=== PATIENT | male | born 1950 | race Caucasian/White ===

== ENCOUNTER 2022-10-03 06:50 | Emergency (ER) | payer MEDICARE, MEDICAID, SELFPAY ==
[2022-10-03 06:52] VITALS: BP 146/77; PULSE 66; RESP 15; TEMP 36.6; O2SAT 96; BMI 35.6
--- NOTE | 2022-10-03 07:14 | EX.ED.GENINJ ---
HPI History of Present Illness Chief Complaint: Other, Pain/Inj Informant: patient Onset/Context/Timing Onset: Days (2) Mechanism/Context: Fall Quality of Pain: Sharp Location: Left chest Worsened by: Coughing, deep breathing Relieved by: Nothing Associated Symptoms Associated Symptoms: Positive for Amnesia; Negative for Parasthesias, Weakness, Loss of function, Inability to ambulate or Loss of consciousness Narrative Narrative: Patient presents with left rib pain that began after a fall 2 days ago. Patient states he was trying to get out of bed and sit onto a chair when the chair tipped over and he fell into the nightstand. Patient states he was able to get up on his own and set the chair back up and get back into bed. Patient denies any head injury or loss of consciousness. Patient states the pain is localized to the left anterolateral rib area. Patient states the pain is sharp. Patient states the pain is worse with coughing and deep breathing. Patient states nothing seems to help with the pain. Patient is unsure of his last tetanus. Patient denies any other injuries. Tetanus Immunization: Unknown [facility] Medical History (Updated 10/03/22 @ 07:[address] Eduar Donahue DO) BPH (benign prostatic hyperplasia) Diabetes HTN (hypertension) Hyperlipemia Muscle weakness Surgical History (Updated 10/03/22 @ 07:[address] Eduar Donahue DO) History of herniorrhaphy Hx of appendectomy Hx of cholecystectomy Social History Smoking Status: Former smoker ROS ROS ED Constitutional Constitutional ED: Denies chills or fever(s) Eyes Eyes: Denies blurry vision or change in vision ENT ENT ED: Denies rhinorrhea or sore throat Cardiovascular Cardiovascular: Reports chest pain; Denies palpitations Respiratory/Chest Respiratory/Chest: Denies cough or dyspnea Gastrointestinal Gastrointestinal: Denies nausea or vomiting Genitourinary Genitourinary ED: Denies dysuria or hematuria Musculoskeletal Musculoskeletal: Denies back pain or neck pain Integumentary Denies abscess or rash Neurologic Neurologic: Denies headache(s) or weakness Allergic/Immunologic Allergic/Immunologic ED: Denies mouth swelling or urticaria EXAM Physical Exam Const Vital Signs: 10/03/22 06:52 10/03/22 07:00 Temperature 97.9 F Temperature Source Temporal Pulse Rate 66 Respiratory Rate 15 Respiratory Effort Non-Labored Blood Pressure 146/77 H Blood Pressure Mean 100 Pulse Ox 96 Oxygen Delivery Method Room Air Positive well nourished and well developed General Appearance ED: well developed and NAD HEENT atraumatic; Negative for tenderness Neck full ROM Chest Wall Chest Narrative: There is ecchymosis and tenderness over the anterolateral aspect of the left chest. There is a superficial abrasion noted. There is no bleeding. There is no subcutaneous emphysema. There is no bony crepitance or step-off noted. Resp normal respiratory effort and clear to auscultation bilaterally Cardio regular rhythm GI non-tender and non-distended Palpation: soft Neuro oriented x3, CN's II-XII intact bilaterally, moves all extremities, no focal motor deficits and no sensory deficits noted Liz Coma Scale: document GCS findings Spontaneous Obeys Commands Oriented 15 Sensorium / Orientation: alert Motor Exam: strength 5/5 throughout MDM MDM MDM Narrative Medical decision making narrative: Differential diagnosis includes chest contusion, rib fracture, and pneumothorax. X-rays of the left ribs will be obtained to assess for pneumothorax and rib fracture. Radiography Diagnostic Testing: Clinical Impression(s) from Imaging Studies Ribs w/Chest X-Ray 10/03/22 07:35 IMPRESSION: No acute findings in the chest or left ribs. Electronically Signed: Jerry JuliosSeth Butcher, at 8:02 EDT Reading Location ID and State: [facility] / [place] , Service support , X-rays of the left ribs were obtained. There are 5 views. On my independent interpretation, there is no displaced rib fracture. There is no pneumothorax. There is no subcutaneous emphysema. Radiologist also interpreted the x-rays and agrees. Treatment and Re-Evaluation Narrative: Patient was given a tetanus booster. Patient was advised of his findings. Patient was instructed to take 10-15 deep breaths every hour while awake to prevent atelectasis and pneumonia. Patient was given an incentive spirometer. Patient was instructed to follow-up with his primary care physician in 5 to 7 days. Patient understood and was agreeable with the plan. All questions were answered. Discharge Plan Triage Chief Complaint: Other, Pain/Inj ED Provider: Schwiger,Eduar Dx/Rx/DC Orders Clinical Impression: Chest wall contusion, Fall Instructions: ED Chest Wall Contusion, ED Bruise, Rib Primary Care Provider: Jessica Alvarez [employer] OFFICER Disposition Disposition: Home, Self Care
--- NOTE | 2022-10-03 07:35 | RAD_ITS ---
EXAM: XR LEFT RIBS AND AP CHEST, 3 OR MORE VIEWS CLINICAL INDICATION: FELL A COUPLE DAYS AGO. LEFT LATERAL RIB PAIN. TECHNIQUE: Frontal and oblique views of the left ribs and frontal view of the chest. COMPARISON: No relevant prior studies available. FINDINGS: LUNGS AND PLEURAL SPACES: Unremarkable. No consolidation or edema. No pneumothorax. No effusion. HEART: Unremarkable. Cardiac silhouette not enlarged. MEDIASTINUM: Central airways and mediastinal contour are unremarkable. BONES/JOINTS: Old left rib fractures. No acute rib fracture. RAD/Ribs Uni Min 3V w/PA Chest IMPRESSION: No acute findings in the chest or left ribs. Electronically Signed: Jerry Butcher ([place]oks), at 8:02 EDT ,
[2022-10-03] MEDS: Diphth,Pertuss(Acell),Tet Vac 0.5 ML Vial IM (08:55)
[2022-10-03 09:36] VITALS: BP 149/77; PULSE 81; RESP 14; O2SAT 98
== END 2022-10-03 09:38 | disposition home or self-care (01) ==
PROVIDERS: Emergency Provider Emergency Medicine; PCP Nurse Practitioner Adult Health; Visit Provider Emergency Medicine
DX: S20.20XA Contusion of thorax, unspecified, initial encounter (principal); E11.9 Type 2 diabetes mellitus without complications; E78.5 Hyperlipidemia, unspecified; I10 Essential (primary) hypertension; Z87.891 Personal history of nicotine dependence; Z90.49 Acquired absence of other specified parts of digestive tract; Z23 Encounter for immunization; W06.XXXA Fall from bed, initial encounter
CPT/HCPCS: 71101; 90715; 96372; 99284

== ENCOUNTER 2022-11-08 08:30 | Emergency (ER) | payer MEDICARE, MEDICAID, SELFPAY ==
[2022-11-08 08:31] VITALS: BP 140/69; PULSE 87; RESP 14; TEMP 36.6; O2SAT 97; BMI 35.2
--- NOTE | 2022-11-08 08:41 | EKG12_ITS ---
Test Reason : GENERAL ILLNESS Blood Pressure : / mmHG Vent. Rate : 078 BPM Atrial Rate : 078 BPM P-R Int : 146 ms QRS Dur : 120 ms QT Int : 378 ms P-R-T Axes : 045 -73 029 degrees QTc Int : 430 ms Normal sinus rhythm Left axis deviation Non-specific intra-ventricular conduction delay Abnormal ECG Confirmed by SAMUEL CHA, JANNETTE ([id number]), sound editor LILIYA GONZALEZ ([id number]) on 11/13/2022 8:14:53 AM Referred By: Confirmed By:JOSE LUIS BAKER MD
--- NOTE | 2022-11-08 08:43 | EDS_ITS ---
HPI History of Present Illness Chief Complaint: General Illness Narrative Narrative: Patient presents with nausea and generalized weakness from assisted living?independent living facility. He is wheelchair-bound post COVID, he normally is able to get up to his wheelchair and transfer himself however he has been a bit weak today he also had some nausea. Chief complaint says dizziness but patient does not feel vertiginous does not feel off balance and does not feel lightheaded. No recent fevers or chills. Patient is denying abdominal pain. There is no diarrhea. There is no urinary symptoms. He is denying any chest pain or difficulty breathing. No headaches. [facility] Medical History (Updated 11/08/22 @ 10:[address] Jann Hoffmann MD) BPH (benign prostatic hyperplasia) Diabetes HTN (hypertension) Hyperlipemia Muscle weakness Allergy/AdvReac Type Severity Reaction Status Date / Time No Known Allergies Allergy Verified 11/08/22 08:31 Surgical History History of herniorrhaphy Hx of appendectomy Hx of cholecystectomy Social History Smoking Status: Current every day smoker tobacco type: cigarettes ROS ROS ED ROS Narrative Past medical history: Reviewed Medications: Reviewed Social history: Noncontributory Review of systems: All systems negative except as indicated General: No fever. Generalized weakness as in HPI Eyes: No visual changes ENT: No upper airway congestion, normal voice Neck: No neck pain Cardiovascular: No chest pain Respiratory: No shortness of breath or cough Gastrointestinal: No abdominal pain, no diarrhea. There is some nausea but no vomiting. Genitourinary: No dysuria Musculoskeletal: No muscle aches. No trauma no falls. Chronic bilateral lower extremity weakness. Skin: No rash Neurological: No memory loss, confusion or any focal weakness EXAM Physical Exam Narrative Exam Narrative: Physical exam General: Patient appears chronically ill he does not appear in any distress currently. Head: Normocephalic, Atraumatic Eyes: Conjunctiva not pale ENT: Quite dry mucous membranes Neck: Supple, Nontender, No lymphadenopathy Cardiovascular: Regular rate, Regular rhythm Respiratory: No distress, CTA bilaterally Abdomen: Soft, Nontender, Nondistended : Normal external genitalia without any signs of infection Back: Nontender, Normal Inspection. Negative for: CVA tenderness Extremities: Nontender, No edema Skin: Normal color, No rash Neurological: Alert, Normal Strength, Normal Sensation Const Vital Signs: 11/08/22 08:31 11/08/22 08:40 Temperature 97.9 F Temperature Source Temporal Pulse Rate 87 Respiratory Rate 14 Respiratory Pattern Normal Blood Pressure 140/69 H Blood Pressure Mean 92 Pulse Ox 97 Oxygen Delivery Method Room Air MDM MDM MDM Narrative Medical decision making narrative: Patient had some nausea, this improved. He also appeared dehydrated and he was given IV fluids with significant improvement in his symptoms. I reevaluated him, he does not have any more nausea, he feels improved and he feels like his energy is back. I believe this is the cause of most of his symptoms. I talked to him about hospitalization but he wants to be discharged which is reasonable. There is some elevation of the bilirubin however there is no elevation of transaminases or alk phos, this can be worked up outpatient. Because he does not have any abdominal pain I do not believe emergent imaging like ultrasound or CT of the abdomen is needed. He has been eating quite a bit over the weekend since apparently he was given some good food and he is found to be hyperglycemic, he can control this at home, I talked to him about glycemic control and how the increased blood sugar can cause dehydration. He understands these. If anything changes patient is to return. Lab Data Labs: Laboratory Results - last 24 hr 11/08/22 11/08/22 09:00 10:01 WBC 11.0 RBC 4.88 Hgb 15.0 Hct 42.9 MCV 87.9 MCH 30.7 MCHC 35.0 RDW Std Deviation 38.0 RDW Coeff of Gage 11.9 Plt Count 107 L MPV 9.6 Immature Gran % (Auto) 0.500 Neut % (Auto) 88.3 H Lymph % (Auto) 5.4 L Webb % (Auto) 4.8 Eos % (Auto) 0.8 Baso % (Auto) 0.2 Absolute Neuts (auto) 9.7 H Absolute Lymphs (auto) 0.60 L Nucleated RBC % 0 Differential Comment SCANNED Sodium 134 L Potassium 3.9 Chloride 100 Carbon Dioxide 23.0 Anion Gap 11 BUN 11 Creatinine 1.06 Estim Creat Clear Calc 72.16 Est GFR (MDRD) Af Amer 88 Est GFR (MDRD) Non-Af 73 BUN/Creatinine Ratio 10.4 Glucose 244 H Calcium 8.3 L Total Bilirubin 2.90 H AST 25 ALT 42 Alkaline Phosphatase 115 Troponin I High Sens 9 Total Protein 6.4 Albumin 3.4 Globulin 3.0 Albumin/Globulin Ratio 1.1 Urine Color Yellow Urine Clarity Clear Urine pH 5.0 Ur Specific Pound 1.020 Urine Protein 15 H Urine Glucose (UA) 1000 H Urine Ketones 5 H Urine Occult Blood 25 H Urine Nitrite Negative Urine Bilirubin Negative Urine Urobilinogen 1 H Ur Leukocyte Esterase 25 H Urine RBC 0-5 SEEN Urine WBC 0-5 SEEN Ur Squamous Epith Cells 0 SEEN Urine Bacteria 0 SEEN Urine Mucus 0 SEEN Rhythm Strip Rhythm Strip: Sinus Rhythm Rate: 70 Ectopy: None EKG Initial EKG: Comments: Sinus rhythm with a rate of 78. Normal SD and QTc intervals. Left axis deviation. No acute ST changes. Slight widening of the QRS with a nonspecific intraventricular conduction delay. Interpreted by emergency doctor Discharge Plan Triage Chief Complaint: General Illness ED Provider: Jann Hoffmann Dx/Rx/DC Orders Clinical Impression: Acute dehydration, Hyperbilirubinemia, Hyperglycemia, Nausea Instructions: Dehydration Primary Care Provider: Jessica Alvarez REMOTE SENSING SPECIALIST Referrals: Jessica Alvarez REMOTE SENSING SPECIALIST, REMOTE SENSING SPECIALIST-C [Primary Care Provider] - 3-5 Days Disposition Disposition: Assisted Living
--- NOTE | 2022-11-08 08:44 | NURSING ---
NO OLD EKGS
[2022-11-08] MEDS: 0.9% Normal Saline 1,000 ML 1000 ML IV (09:05)
[2022-11-08] MEDS: Ondansetron 4 MG/2 ML Vial IV (09:06)
[2022-11-08 09:17] LABS: Absolute Neutrophil Count 9.7 X10^3/uL (2.0-7.7); Basophil# 0.02 X10^3/uL; Basophil% 0.2 % (0-1); Eosinophil# 0.09 X10^3/uL; Eosinophils% 0.8 % (0-5); Hematocrit 42.9 % (40-54); Lymphocyte % 5.4 % (19-41); Mean Corpuscular Hgb 30.7 pg (27.0-32.0); Mean Corpuscular Volume 87.9 fL (80-94); Mean Platelet Vol. 9.6 fl (6.2-12.0); Monocyte# 0.53 X10^3/uL; Monocyte% 4.8 % (0-10); NRBC Flagged by Analyzer 0 % (0-5); Neutrophil # 9.74 X10^3/uL (2.7-7.7); Neutrophil % 88.3 % (47-70); POSITIVE DIFFERENTIAL YES; Platelet Count 107 K/mm3 (150-450); RBC Distribution Width CV 11.9 % (11.6-14.6); Red Blood Count 4.88 M/mm3 (4.6-6.2)
[2022-11-08 09:18] LABS: Differential Indicated SCAN CRITERIA MET
[2022-11-08 09:41] LABS: Differential Comment SCANNED
[2022-11-08 09:45] LABS: ALB/GLOB Ratio 1.1 RATIO (0.9-2.4); AST(SGOT) 25 U/L (15-37); Alanine Aminotransfer ALT/SGPT 42 U/L (16-61); Albumin, Serum 3.4 g/dL (3.2-5.0); Alkaline Phosphatase 115 U/L (45-117); Anion Gap 11 (5-15); BUN 11 mg/dL (7-18); BUN/Creat Ratio 10.4 RATIO (10-20); Calcium,Total 8.3 mg/dL (8.5-10.1); Chloride 100 mmol/L (98-107); Creatinine, Serum 1.06 mg/dL (0.70-1.30); EST Glomerular Filtration Rate 73 mL/min (>60); Est Glom Filt Rate - Afr Amer 88 mL/min (>60); Estimated Creatinine Clearance 72.16 ml/min; Glucose 244 mg/dL (74-106); Potassium 3.9 mmol/L (3.5-5.1); Protein, Total 6.4 g/dL (6.4-8.2); Sodium Level 134 mmol/L (136-145); Troponin-I HS (w/2H Reflex) 9 pg/mL (3.0-78.0)
[2022-11-08 10:04] LABS: Bacteria 0 SEEN /hpf (None Seen); Mucous, Urine 0 SEEN /hpf (<or=2+); Squamous Epithelial Cells - UA 0 SEEN /hpf (0-5)
[2022-11-08 10:16] LABS: Color, Urine Yellow (Yellow); Glucose, Dipstick 1000 mg/dl (Normal); Nitrite-Dipstick Negative (Negative); Occult Blood-Urine 25 /ul (Negative); Protein-Dipstick 15 mg/dl (Negative); Urine Clarity Clear (Clear); Urine Urobilinogen 1 mg/dl (Normal)
[2022-11-08 10:19] LABS: Ketone-Dipstick 5 mg/dl (Negative); Leukocyte Esterase-Dipstick 25 /ul (Negative); Urine Bilirubin Dipstick Negative (Negative)
[2022-11-08 10:35] LABS: Red Blood Cells-Urine 0-5 SEEN /hpf (0-5); White Blood Cells 0-5 SEEN /hpf (0-5)
[2022-11-08 11:12] LABS: Reflex Troponin-HS? (from REC) Y
== END 2022-11-08 11:31 | disposition home or self-care (01) ==
PROVIDERS: Emergency Provider Emergency Medicine; PCP Nurse Practitioner Adult Health; Visit Provider Emergency Medicine
DX: E86.0 Dehydration (principal); E11.65 Type 2 diabetes mellitus with hyperglycemia; E80.6 Other disorders of bilirubin metabolism; R11.0 Nausea; E78.5 Hyperlipidemia, unspecified; I10 Essential (primary) hypertension; N40.0 Benign prostatic hyperplasia without lower urinary tract symptoms; F17.210 Nicotine dependence, cigarettes, uncomplicated; Z99.3 Dependence on wheelchair; Z86.16 Personal history of COVID-19
CPT/HCPCS: 96374; 99284; 80053; 81001; 84484; 85025; 93005; J7030; A4216; J2405

== ENCOUNTER 2022-11-08 16:54 | Observation (INO) | payer MEDICARE, MEDICAID, SELFPAY ==
[2022-11-08 16:55] VITALS: BP 142/74; PULSE 95; RESP 18; TEMP 37.8; O2SAT 97; BMI 35.6
[2022-11-08 17:02] VITALS: BP 118/72; PULSE 93; RESP 18; O2SAT 95
[2022-11-08] MEDS: Acetaminophen 500 MG Tablet 1000 MG PO (17:06)
--- NOTE | 2022-11-08 17:08 | RAD_ITS ---
STUDY: X-RAY CHEST REASON FOR EXAM: Male, 72 years old. fever TECHNIQUE: Single AP portable view of the chest. COMPARISON: 10/03/2022. FINDINGS: Elevated right hemidiaphragm, stable. The lungs are clear and expanded. There is no demonstrated pleural abnormality. Normal size heart. Normal mediastinum and kaiser. Normal visualized pulmonary arteries. There is atherosclerotic tortuosity of the aortic arch and descending thoracic aorta. Normal visualized thoracic spine. Normal visualized ribs, clavicles, and shoulders. There is no demonstrated abnormality of the visualized soft tissue structures of the upper abdomen. RAD/Chest 1 View (Portable) IMPRESSION: No definite acute or significant abnormality seen. Electronically Signed: Vicente Mullins MD at 17:19 EDT ,
--- NOTE | 2022-11-08 17:31 | EDS_ITS ---
HPI History of Present Illness Chief Complaint: General Illness Narrative Narrative: 72-year-old male presenting with nausea and generalized weakness. He was seen earlier today for similar symptoms. He had lab work done which showed a little bit of hyperglycemia but was otherwise normal. He was treated with Zofran and IV fluids. Today returns with a fever and return of his nausea. He denies chest pain or shortness of breath. He does have a cough. He denies abdominal pain. No urinary complaints. [facility] Medical History (Updated 11/08/22 @ 20:[address] Bridgett Villagomez MD) Allergic rhinitis BPH (benign prostatic hyperplasia) CKD (chronic kidney disease), stage II COPD (chronic obstructive pulmonary disease) Diabetes Former tobacco use HTN (hypertension) Hyperlipemia Obesity Home Medications atorvastatin 80 mg tablet 80 mg PO QHS 11/08/22 [History Last Taken Unknown] cetirizine 5 mg tablet 5 mg PO QHS 11/08/22 [History Last Taken Unknown] cholecalciferol (vitamin D3) 125 mcg (5,000 unit) tablet (Vitamin D3) 5,000 unit PO QWEEK 11/08/22 [History Last Taken Unknown] clopidogrel 75 mg tablet 75 mg PO .PO 11/08/22 [History Last Taken Unknown] icosapent ethyl 1 gram capsule (Vascepa) 2 g PO BID 11/08/22 [History Last Taken Unknown] isosorbide mononitrate 30 mg tablet,extended release 24 hr 30 mg PO DAILY 11/08/22 [History Last Taken Unknown] linagliptin 5 mg tablet (Tradjenta) 5 mg PO DAILY 11/08/22 [History Last Taken Unknown] losartan 25 mg tablet 25 mg PO DAILY 11/08/22 [History Last Taken Unknown] melatonin 5 mg tablet 5 mg PO QHS 11/08/22 [History Last Taken Unknown] metformin 500 mg tablet 500 mg PO BID 11/08/22 [History Last Taken Unknown] montelukast 10 mg tablet 10 mg PO QHS 11/08/22 [History Last Taken Unknown] polyethylene glycol 3350 17 gram/dose oral powder (Gavilax) 17 g PO .EVERY OTHER DAY 11/08/22 [History Last Taken Unknown] tamsulosin 0.4 mg capsule 0.8 mg PO DAILY 11/08/22 [History Last Taken Unknown] Allergy/AdvReac Type Severity Reaction Status Date / Time No Known Allergies Allergy Verified 11/08/22 17:01 Family History (Updated 11/08/22 @ 20:[address] Bridgett Villagomez MD) Mother Diabetes Cancer Father Diabetes Cancer Surgical History History of herniorrhaphy Hx of appendectomy Hx of cholecystectomy Social History (Updated 11/08/22 @ 20:[address] Bridgett Villagomez MD) housing: assisted living facility Smoking Status: Former smoker alcohol intake: never substance use type: does not use ROS ROS ED Constitutional Constitutional ED: Reports chills and fever(s); Denies sweats Eyes Eyes: Denies blurry vision or change in vision ENT ENT ED: Denies ear pain or sore throat Cardiovascular Cardiovascular: Denies chest pain, palpitations or racing heartbeat Respiratory/Chest Respiratory/Chest: Denies cough, dyspnea or sputum Gastrointestinal Gastrointestinal: Reports nausea; Denies abdominal pain, constipation, diarrhea or vomiting Genitourinary Genitourinary ED: Denies dysuria, hematuria or urinary frequency Musculoskeletal Musculoskeletal: Denies arthralgias, myalgias or neck pain Integumentary Denies abscess, Abrasions or rash Neurologic Neurologic: Denies headache(s), paresthesias or weakness Psychiatric Psychiatric: Denies anxiety, depression, suicidal ideation or suicidal thoughts Endocrine Endocrinology: Denies polydipsia or polyuria EXAM Physical Exam Const Vital Signs: 11/08/22 16:55 11/08/22 16:59 11/08/22 17:02 Temperature 100.1 F H Temperature Source Oral Pulse Rate 95 93 Respiratory Rate 18 18 Respiratory Pattern Tachypnea Blood Pressure 142/74 H 118/72 Blood Pressure Mean 96 87 Pulse Ox 97 95 Oxygen Delivery Method Room Air Room Air 11/08/22 19:00 Temperature 99.8 F H Temperature Source Oral Pulse Rate 72 Respiratory Rate 20 H Respiratory Pattern Blood Pressure 124/55 H Blood Pressure Mean 78 Pulse Ox 93 Oxygen Delivery Method Room Air Positive well nourished General Appearance ED: NAD HEENT Reports moist mucous membranes Eyes PERRL and EOMs intact bilaterally Chest Wall inspection of chest normal Resp normal respiratory effort Auscultation: Negative for rales, rhonchi or wheezes Cardio regular rate and regular rhythm GI normal to inspection, nondistended, normoactive bowel sounds Extremity General Extremety ED: Negative for edema or tenderness General Extremity: Negative for edema Neuro oriented x3 and CN's II-XII intact bilaterally Sensorium / Orientation: alert Motor Exam: general weakness Psych mental status grossly normal Skin no rashes or lesions noted and no wounds MDM MDM MDM Narrative Medical decision making narrative: I reviewed the patient's blood work from earlier today is all normal with exception of hyperglycemia. Patient was given IV fluids and Zofran. Apparently his nausea came back and he is developed a fever now his temperature is 100.1. I will obtain a chest x-ray because this was not done earlier and I will also get a COVID/flu swab. She given a gram of Tylenol for his fever. He is given oral Zofran. COVID and flu are negative. Chest x-ray my interpretation shows no acute process. I suspect he likely has something viral. On reevaluation his nausea is improved but he request to stay in the hospital because he does not feel right he has one half to come back. I discussed with the hospitalist and he is admitted for observation. Impression: 1. Nausea/vomiting 2. Acute febrile illness Radiography Diagnostic Testing: Clinical Impression(s) from Imaging Studies Chest X-Ray 11/08/22 17:08 IMPRESSION: No definite acute or significant abnormality seen. Electronically Signed: Vicente Mullins MD at 17:19 EDT , Discharge Plan Disposition Disposition: Acute Care Hospital [facility] Discharge Date/Time: 11/08/22 20:33
[2022-11-08] MEDS: Ondansetron ODT 4 MG Tablet PO (17:37)
[2022-11-08 19:00] VITALS: BP 124/55; PULSE 72; RESP 20; TEMP 37.7; O2SAT 93
--- NOTE | 2022-11-08 19:44 | HP.PCM.HOS_ITS ---
HPI - General General Date of Admission: 11/08/22 Date of Service: 11/08/22 Chief Complaint: Fatigue, malaise, nausea, fever. HPI Narrative The patient is a 72 y/o M w/ PMHx: Former Tobacco use, HTN, HLD, BPH, Diabetes mellitus type II, COPD, CKD possibly stage II based on current labs, Obesity, Hx COVID illness, recent ED evaluation earlier in the AM on day of presentation with transition from assisted living secondary to mild nausea as well as dizziness with no vertigo nor any lightheadedness nor any recent fevers or chills but increased fatigue and malaise normally able to transfer himself out of the wheelchair but has been more weak with history of unfortunately being wheelchair-bound following a COVID illness. Patient denies any abdominal pain, diarrhea, dysuria but has had mildly decreased appetite. Patient notes feeling improved since his evaluation again in the ED now but is very afraid of returning to his facility as he had difficulty caring for himself safely as it is assisted living only. He denies any specific illness in people around him but states that often he is by himself frequently but of several people intermittently have been ill but he is unsure from what. Discussed the fact that he is listed as both on aspirin and Plavix and he denies any history of stroke or any coronary disease or peripheral artery disease or stents or specifically TIA. Workup in the ED included initially T1 100.1 with most recent repeat T 99.8, heart rate 95 initially with most recent repeat 72, BP initially 142/74 with most recent repeat 04/25/1955, initially respiratory rate 1897% on room air now respiratory rate 20, 93% on room air, chest x-ray with no acute cardiopulmonary finding, SARS COVID and influenza antigen rapid negative, labs obtained earlier in the morning with CBC with WBC 11, hemoglobin 15, platelet 107 with left shift and lymphopenia, CMP with sodium 134, glucose 244, T. bili 2.90, AST/ALT 25/42, alk phos 115, hepatic profile otherwise unremarkable, troponin 9, urinalysis with specific gravity 1.020, glucose 1000, ketone 5, occult blood 25, negative nitrite, leukocyte Estrace 25 with no urine WBCs or RBCs or bacteria and of note anion gap 11, EKG at that time with sinus rhythm with no acute evidence of ischemia. In the ED patient ministered Tylenol as well as Zofran 4 mg p.o. x 1. [facility] Medical History (Updated 11/08/22 @ 20:[address] Bridgett Villagomez MD) Allergic rhinitis BPH (benign prostatic hyperplasia) CKD (chronic kidney disease), stage II COPD (chronic obstructive pulmonary disease) Diabetes Former tobacco use HTN (hypertension) Hyperlipemia Obesity Home Medications atorvastatin 80 mg tablet 80 mg PO QHS 11/08/22 [History Last Taken Unknown] cetirizine 5 mg tablet 5 mg PO QHS 11/08/22 [History Last Taken Unknown] cholecalciferol (vitamin D3) 125 mcg (5,000 unit) tablet (Vitamin D3) 5,000 unit PO QWEEK 11/08/22 [History Last Taken Unknown] clopidogrel 75 mg tablet 75 mg PO .PO 11/08/22 [History Last Taken Unknown] icosapent ethyl 1 gram capsule (Vascepa) 2 g PO BID 11/08/22 [History Last Taken Unknown] isosorbide mononitrate 30 mg tablet,extended release 24 hr 30 mg PO DAILY 11/08/22 [History Last Taken Unknown] linagliptin 5 mg tablet (Tradjenta) 5 mg PO DAILY 11/08/22 [History Last Taken Unknown] losartan 25 mg tablet 25 mg PO DAILY 11/08/22 [History Last Taken Unknown] melatonin 5 mg tablet 5 mg PO QHS 11/08/22 [History Last Taken Unknown] metformin 500 mg tablet 500 mg PO BID 11/08/22 [History Last Taken Unknown] montelukast 10 mg tablet 10 mg PO QHS 11/08/22 [History Last Taken Unknown] polyethylene glycol 3350 17 gram/dose oral powder (Gavilax) 17 g PO .EVERY OTHER DAY 11/08/22 [History Last Taken Unknown] tamsulosin 0.4 mg capsule 0.8 mg PO DAILY 11/08/22 [History Last Taken Unknown] Allergy/AdvReac Type Severity Reaction Status Date / Time No Known Allergies Allergy Verified 11/08/22 17:01 Family History (Updated 11/08/22 @ 20:[address] Bridgett Villagomez MD) Mother Diabetes Cancer Father Diabetes Cancer Surgical History History of herniorrhaphy Hx of appendectomy Hx of cholecystectomy Social History (Updated 11/08/22 @ 20:[address] Bridgett Villagomez MD) housing: assisted living facility Smoking Status: Former smoker alcohol intake: never substance use type: does not use ROS ROS Narrative Admission Review of Systems: CONSTITUTIONAL: No weight loss, + fever, chills, weakness or fatigue. HEENT: Eyes: No visual loss, blurred vision, double vision or yellow sclerae. Ears, Nose, Throat: No hearing loss, sneezing, congestion, runny nose or sore throat. SKIN: No rash or itching, lesions, wounds. CARDIOVASCULAR: No chest pain, chest pressure or chest discomfort, palpitations, edema, orthopnea, syncopal events. RESPIRATORY: No shortness of breath, cough or sputum, wheezing, hemoptysis. GASTROINTESTINAL: + anorexia, nausea. No vomiting or diarrhea, abdominal pain, melena, BRBPR. GENITOURINARY: No dysuria, frequency, urgency or retention. NEUROLOGICAL: + Debility, requires wheelchair chronically, No headache, dizziness, syncope, paralysis, ataxia, numbness or tingling in the extremities, focal weakness, change in bowel or bladder control, seizure. MUSCULOSKELETAL: + muscle, back pain, joint pain or stiffness. HEMATOLOGIC: + Easy bleeding or bruising. LYMPHATICS: No enlarged nodes. No history of splenectomy. PSYCHIATRIC: No history of depression or anxiety. ENDOCRINOLOGIC: No reports of sweating, cold or heat intolerance. No polyuria or polydipsia. ALLERGIES: + history of rhinitis. Vital Signs Vital Signs Vital Signs: 11/08/22 16:55 11/08/22 16:59 11/08/22 17:02 Temperature 100.1 F H Temperature Source Oral Pulse Rate 95 93 Respiratory Rate 18 18 Respiratory Pattern Tachypnea Blood Pressure 142/74 H 118/72 Blood Pressure Mean 96 87 Pulse Ox 97 95 Oxygen Delivery Method Room Air Room Air 11/08/22 19:00 Temperature 99.8 F H Temperature Source Oral Pulse Rate 72 Respiratory Rate 20 H Respiratory Pattern Blood Pressure 124/55 H Blood Pressure Mean 78 Pulse Ox 93 Oxygen Delivery Method Room Air Weight Weight: 278 lb 0.046 oz Body Mass Index (BMI) 35.6 Physical Exam Narrative Physical Examination: General: Awake, alert, oriented x 3 and cooperative, seated upright in the ED bed in no apparent distress. Skin: Normal color, normal turgor, no icterus, no cyanosis. HEENT: AT/NC, EOMI, PERRLA, mildly dry MM, no carotid bruits or JVD noted; however, thickened neck makes evaluation difficult. Lungs: Mildly diminished, greater bases, appropriate effort, no rales, ronchi or wheezing. Heart: Regular rate and rhythm; no gallop, rub audible. Abdomen: Soft, obese, NTTP, no obvious distention, mildly hyperactive BS, no appreciated HSM. Extremities: No cyanosis, clubbing, or edema. Neurological: Patient awake, alert, oriented as noted, cognitive function intact; pupils equally reactive to light and accommodation, cranial nerves grossly normal, moving all 4 extremities, no focal deficits, strength moderately to severely globally decreased secondary to acute presentation complaints compounded by underlying chronic debility, normally mostly wheelchair-bound secondary to debilities and weaknesses following COVID illness prior. Psychiatric: Affect appears fatigued otherwise normal, no acute evidence of depressive or anxiety feelings. Results Lab / Micro Data Micro: Microbiology 11/08/22 17:04 Nasal Secretion SARS-CoV-2 & FLU Antigen (Rapid) - Final Radiology Impression Chest X-Ray 11/08/22 17:08 IMPRESSION: No definite acute or significant abnormality seen. Electronically Signed: Vicente Mullins MD at 17:19 EDT , Assessment & Plan Assessment/Plan (1) Adult failure to thrive: PLAN: Plan The patient is a 72 y/o M w/ PMHx: Former Tobacco use, HTN, HLD, BPH, Diabetes mellitus type II, COPD, CKD possibly stage II based on current labs, Obesity, Hx COVID illness, recent ED evaluation earlier in the AM on day of presentation with transition from assisted living secondary to mild nausea as well as dizziness with no vertigo nor any lightheadedness nor any recent fevers or ch ills but increased fatigue and malaise normally able to transfer himself out of the wheelchair but has been more weak with history of unfortunately being wheelchair-bound following a COVID illness. #1. Fatigue, malaise, FUO with associated Adult FTT: Given repeat ED evaluation, concerns for ability for patient to safely care for self in the AL setting, unclear etiology for his fever, will admit to [facility], awaiting COVID PCR and full respiratory viral panel initiated in the ED, procalcitonin requested, continued judicious hydration and will plan repeat CXR in AM to assure no development of infiltrate, will maintain on fall and aspiration precautions, PT/OT/case management consulted for discharge planning as patient potentially could need transition from assisted to skilled setting. #2. Hypertension: Continue home regimen including isosorbide, losartan with hold parameters as needed, PRN hydralazine. #3. Hyperlipidemia: Continue home statin regimen. #4. Diabetes mellitus type II: Hold oral home regimen, ADA diet, accu checks w/ ISS. #5. Thrombocytopenia, unclear chronicity: Admission platelet earlier in the day 107, no comparison available, potentially related to acute illness presentation, will continue to trend CBC. #6. BPH: We will continue patient home Flomax regimen. #7. Chronic COPD with allergic rhinitis: Not on any chronic regimen per current list but clarifying, PRN albuterol, HOB, IS parameters, continue patient home cetirizine and montelukast regimen. #8. Chronic Kidney Disease Stage II per current labs but unclear specific stage: Admission BUN/Cr 11/1.06, baseline renal function unclear but facility does report chronic kidney disease and they are listed diagnoses, repeat BMP in AM. #9. Obesity: Weight loss and lifestyle changes encouraged. #10. Former tobacco use: Encourage continued tobacco cessation. #11. Isolated hyperbilirubinemia: AM labs during prior ED evaluation with T. bili 2.90 however AST/ALT normal 25/42 and alk phos 115 with no abdominal pain, will continue treatment and evaluation as noted, repeat CMP in AM. #12. DVT prophylaxis: Lovenox. #13. CODE STATUS: DNR-CCA, no intubation per facility paperwork. Charges/Coding Visit Charges Inpatient E&M: 09328 Init Hosp L2
[2022-11-08 20:02] VITALS: BP 103/86; PULSE 78; RESP 23; TEMP 37; O2SAT 97
--- NOTE | 2022-11-08 20:23 | ED.RN ---
ATTEMPTED TO CALL REPORT TO [facility].
[2022-11-08 20:34] VITALS: BP 124/84; PULSE 88; RESP 18; TEMP 36.8; O2SAT 98
[2022-11-08 20:49] LABS: Procalcitonin 0.06 ng/mL (0.00-0.09)
[2022-11-08] MEDS: 0.9% Normal Saline 1,000 ML 100 ML IV (20:50)
[2022-11-08 21:09] VITALS: BMI 34.4
[2022-11-08] MEDS: MELATONIN 10 MG TABLET 5 MG PO (21:41)
[2022-11-08] MEDS: Montelukast 10 MG Tablet PO (21:50)
[2022-11-08] MEDS: Atorvastatin Calcium 80 MG Tablet PO (21:50)
[2022-11-08] MEDS: Loratadine 10 MG Tablet PO (21:50)
[2022-11-08] MEDS: Insulin Lispro 100 UNIT/ML INSULN.PEN SC (21:55)
[2022-11-08 22:19] VITALS: O2SAT 98
[2022-11-09 00:16] LABS: Bedside Glucose 196 mg/dL (74-106)
[2022-11-09 03:01] VITALS: BP 143/57; PULSE 82; RESP 18; TEMP 36.9; O2SAT 93
[2022-11-09 05:43] VITALS: BMI 34.4
--- NOTE | 2022-11-09 05:55 | RAD_ITS ---
INDICATION: Fever EXAMINATION/TECHNIQUE: X-RAY - XR Chest 1 View COMPARISON: 11/08/2022. FINDINGS: LINES/DEVICES: None. LUNGS: No consolidation or evidence of an effusion. No evidence of edema or a pneumothorax. MEDIASTINUM AND CARDIOVASCULAR STRUCTURES: Cardiac silhouette is normal in size and contour. Mediastinum is unremarkable. BONES AND SOFT TISSUES: No acute abnormality. RAD/Chest 1 View (Portable) IMPRESSION: No evidence of acute cardiopulmonary disease. Electronically Signed: Shola Toribio DO at 6:30 EDT ,
[2022-11-09] MEDS: 0.9% Normal Saline 1,000 ML 100 ML IV (06:28)
[2022-11-09] MEDS: Insulin Lispro 100 UNIT/ML INSULN.PEN SC ×4 (06:29→21:58)
[2022-11-09 06:38] LABS: Absolute Lymphocyte Count 0.85 X10^3/uL (0.83-4.51); Absolute Neutrophil Count 3.4 X10^3/uL (2.0-7.7); Basophil# 0.04 X10^3/uL; Basophil% 0.8 % (0-1); Eosinophil# 0.06 X10^3/uL; Eosinophils% 1.3 % (0-5); Hematocrit 40.5 % (40-54); Hemoglobin 13.9 g/dL (13.0-16.5); Lymphocyte # 0.85 X10^3/ul (0.83-4.51); Lymphocyte % 17.7 % (19-41); Mean Corp Hgb Conc 34.3 g/dL (32-36); Mean Corpuscular Hgb 30.8 pg (27.0-32.0); Mean Corpuscular Volume 89.6 fL (80-94); Mean Platelet Vol. 9.3 fl (6.2-12.0); Monocyte# 0.39 X10^3/uL; Monocyte% 8.1 % (0-10); NRBC Flagged by Analyzer 0 % (0-5); Neutrophil # 3.44 X10^3/uL (2.7-7.7); Neutrophil % 71.7 % (47-70); Platelet Count 101 K/mm3 (150-450); RBC Distribution Width CV 11.8 % (11.6-14.6); RBC Distribution Width SD 38.2 fl (35.1-43.9); Red Blood Count 4.52 M/mm3 (4.6-6.2); White Blood Count 4.8 K/mm3 (4.4-11.0)
[2022-11-09 06:50] LABS: Bedside Glucose 210 mg/dL (74-106)
[2022-11-09 07:12] LABS: AST(SGOT) 21 U/L (15-37); Alanine Aminotransfer ALT/SGPT 32 U/L (16-61); Albumin, Serum 2.8 g/dL (3.2-5.0); Alkaline Phosphatase 86 U/L (45-117); Anion Gap 6 (5-15); BUN 9 mg/dL (7-18); BUN/Creat Ratio 9.3 RATIO (10-20); Calcium,Total 7.8 mg/dL (8.5-10.1); Chloride 104 mmol/L (98-107); Creatinine, Serum 0.97 mg/dL (0.70-1.30); EST Glomerular Filtration Rate 81 mL/min (>60); Est Glom Filt Rate - Afr Amer 98 mL/min (>60); Estimated Creatinine Clearance 78.86 ml/min; Globulin 2.8 g/dL (2.2-4.2); Glucose 187 mg/dL (74-106); Potassium 3.8 mmol/L (3.5-5.1); Protein, Total 5.6 g/dL (6.4-8.2); Sodium Level 135 mmol/L (136-145)
[2022-11-09] MEDS: Clopidogrel Bisulfate 75 MG Tablet PO (08:31)
[2022-11-09] MEDS: Polyethylene Glycol 3350 17 GM PACKET PO (08:31)
[2022-11-09] MEDS: Losartan Potassium 25 MG Tablet PO ×2 (08:31→22:02)
[2022-11-09] MEDS: Tamsulosin HCl 0.4 MG Capsule 0.800000000000000044 MG PO (08:31)
[2022-11-09] MEDS: Isosorbide Mononitrate 30 MG Tablet PO (08:32)
[2022-11-09] MEDS: Enoxaparin 40 MG/0.4 ML Syringe SC (08:32)
[2022-11-09 09:00] VITALS: BP 121/49; PULSE 66; RESP 18; TEMP 37.2; O2SAT 99
[2022-11-09 10:00] VITALS: O2SAT 95
[2022-11-09 11:15] LABS: Bedside Glucose 274 mg/dL (74-106)
--- NOTE | 2022-11-09 12:10 | PN_ITS ---
Subjective Subjective Patient seen and examined. He had no active complaints. He denied any fever, chills, cough, chest pain, palpitations, dizziness, nausea, vomiting or any other symptoms. Review of systems is otherwise negative. Objective Data Objective Data Vital Signs: Vital Signs Temp Pulse Resp BP Pulse Ox O2 Del Method 98.9 F 66 18 121/49 H 99 Room Air 11/09/22 09:00 11/09/22 09:00 11/09/22 09:00 11/09/22 09:00 11/09/22 09:00 11/09/22 09:00 Oxygen Delivery Method Room Air Weight: 268 lb 4.841 oz Body Mass Index (BMI) 34.4 Intake & Output: Intake and Output for Last 24 Hours 11/07/22 11/08/22 11/09/22 23:59 23:59 23:59 Intake Total 120 / 120 963.33 / 963.33 Output Total 800 / 800 Balance 120 / 120 163.33 / 163.33 Lab / Micro Data 11/09/22 06:03 11/09/22 06:03 Labs: Laboratory Results - last 24 hr 11/08/22 20:06: Procalcitonin 0.06 11/08/22 21:52: POC Glucose 196 H 11/09/22 06:03: WBC 4.8, RBC 4.52 L, Hgb 13.9, Hct 40.5, MCV 89.6, MCH 30.8, MCHC 34.3, RDW Std Deviation 38.2, RDW Coeff of Gage 11.8, Plt Count 101 L, MPV 9.3, Immature Gran % (Auto) 0.400, Neut % (Auto) 71.7 H, Lymph % (Auto) 17.7 L, [place] % (Auto) 8.1, Eos % (Auto) 1.3, Baso % (Auto) 0.8, Absolute Neuts (auto) 3. 4, Absolute Lymphs (auto) 0.85, Nucleated RBC % 0, Sodium 135 L, Potassium 3.8, Chloride 104, Carbon Dioxide 25.0, Anion Gap 6, BUN 9, Creatinine 0.97, Estim Creat Clear Calc 78.86, Est GFR (MDRD) Af Amer 98, Est GFR (MDRD) Non-Af 81, BUN/Creatinine Ratio 9.3 L, Glucose 187 H, Calcium 7.8 L, Total Bilirubin 3.70 H , AST 21, ALT 32, Alkaline Phosphatase 86, Total Protein 5.6 L, Albumin 2.8 L, Globulin 2.8, Albumin/Globulin Ratio 1.0 11/09/22 06:27: POC Glucose 210 H 11/09/22 10:53: POC Glucose 274 H Micro: Microbiology 11/08/22 20:00 Mucosa - Nasopharyngeal Coronavirus COVID-19 PCR - Final 11/08/22 17:04 Nasal Secretion SARS-CoV-2 & FLU Antigen (Rapid) - Final Radiography Diagnostic Testing: Radiology Impression Chest X-Ray 11/08/22 17:08 IMPRESSION: No definite acute or significant abnormality seen. Electronically Signed: Vicente Mullins MD at 17:19 EDT , Chest X-Ray 11/09/22 05:55 IMPRESSION: No evidence of acute cardiopulmonary disease. Electronically Signed: Shola Toribio DO at 6:30 EDT , Physical Exam Const alert, oriented x3 and no apparent distress General Appearance: cooperative HEENT normocephalic, head/scalp atraumatic, moist oral mucous membranes and oropharynx normal Neck no lymphadenopathy, supple and no JVD Lymph Lymphatic: no lymphadenopathy noted and no lymphedema noted Resp Resp Narrative: mildly diminished breath sounds bibasally, no wheezes or crackles. On room air. Cardio regular rate, regular rhythm, S1 normal heart sound, S2 normal heart sound and no murmurs GI normal to inspection, nondistended, normoactive bowel sounds, soft to palpation, non-tender and non-distended Extremity normal capillary refill, no clubbing, cyanosis or edema and no calf tenderness Skin General Skin Exam: no breakdown and turgor normal Neuro CN's II-XII intact bilaterally, no focal motor deficits, no sensory deficits noted and deep tendon reflexes 2+ bilaterally Psych thought process normal and cooperative Assessment & Plan Assessment/Plan (1) Adult failure to thrive: PLAN: Plan #Fever of unknown origin with adult failure to thrive * covid and flu tests were negative. Blood and urine cultures pending * CXR showed no evidence of infiltrate * PT/OT On board * fall precautions * #Hypertension: on losartan and imdur. #Hyperlipidemia: on statin #TYpe 2 diabetes mellitus: on ISS> Accuhecks ACHS # COPD: Not in exacerbation. Breathing better smoker diabetes. #Elevated bilirubin: Total bilirubin was 2.9 on admission and is now up to 3.7. AST, ALT and ALP are all within normal limits. Etiology is unclear. Will get a right upper quadrant ultrasound to evaluate. #Thrombocytopenia: Platelets were 107 on admission and now down to 101. Again etiology is not very clear. WBC and CBC are within normal limits. Will monitor. DVT prophylaxis: Lovenox Charges/Coding Visit Charges Inpatient E&M: 79276 Subs Hosp L2
--- NOTE | 2022-11-09 14:39 | CASEMGMT ---
SW spoke with therapy and patient is very weak and should go somewhere for rehab. RAMON met with patient. Introduced self and role at [facility]. SW let patient know about therapy's [facility]. Patient said he [place] not going to a [place]. Patient said he spend a year at [place] and he is never going back to a [place]. RAMON explained to patient that if [facility] does not feel like they can care for him right now he may not have much of a choice. Patient insisted he is not going to a [place]. RAMON told patient SW will send his therapy notes to [facility] and then check with them to see if they are okay with him returning. RAMON faxed PT/OT evaluations to [facility]. Irene FAIR
[2022-11-09 15:00] VITALS: BP 115/75; PULSE 63; RESP 108; TEMP 36.5; O2SAT 95
--- NOTE | 2022-11-09 15:01 | CASEMGMT ---
RAMON called [facility] and spoke with the nurse about patient. The nurse informed RAMON that she is an agency nurse so she does not know their criteria etc. She suggested RAMON call back tomorrow am. RAMON will call [facility] in am to see if it is okay for patient to return. Irene Hart MSW [facility]
--- NOTE | 2022-11-09 15:11 | CHAPLAIN ---
Type of Pastoral Visit _x__ Initial Visit ___ Follow-up Visit ___ On-call Visit ___ General Patient Visit ___ Spiritual Assessment ___ Family Conference ___ Bereavement ___ Rapid Response ___ Code Blue ___ Other (describe below) Pastoral Care Referral From _x__ Patient ___ Family ___ Nurse ___ Physician ___ School Age Program Teacher ___ Wool Mixer ___ Other (describe below) Sacrament/Intervention _x__ Active listening ___ Anointing ___ Mormon ___ Bereavement ___ Communion _x__ Zeny exploration ___ _x__ Life review _x__ Prayer ___ Reconciliation ___ Sacrament of Sick _x__ Supportive presence ___ Wedding ___ Other (describe below) Pastoral Comments patient is awake and watching a congregation program on TV; pt is very talkative about his spiritual life and his upbringing; pt is positive about his family/mother and credits her with many good things; pt does not ask for anything except that he hopes to read his Bible when he gets home and have a prayer spoken at this time; offer to get patient a Bible for his stay is refused; pt expresses thankfulness for the visit
--- NOTE | 2022-11-09 15:32 | CASEMGMT ---
EMA DUKE in to complete [place] Form with patient. EMA DUKE explained [place] Form to patient, patient voiced understanding. Patient signed [place] form and filed in chart. Patient provided copy of signed [place] form. Patient had no further questions or concerns at this time.
[2022-11-09 16:41] LABS: Bedside Glucose 231 mg/dL (74-106)
[2022-11-09 21:00] VITALS: BP 119/87; PULSE 66; RESP 18; TEMP 36.8; O2SAT 96
[2022-11-09 21:23] VITALS: PULSE 62; O2SAT 96
[2022-11-09] MEDS: Loratadine 10 MG Tablet PO ×2 (21:58→22:01)
[2022-11-09] MEDS: Atorvastatin Calcium 80 MG Tablet PO (21:59)
[2022-11-09] MEDS: MELATONIN 10 MG TABLET 5 MG PO (22:00)
[2022-11-09] MEDS: Montelukast 10 MG Tablet PO (22:05)
[2022-11-09 22:28] LABS: Bedside Glucose 261 mg/dL (74-106)
[2022-11-10 01:58] VITALS: BP 139/79; PULSE 64; RESP 16; TEMP 36.5; O2SAT 94
[2022-11-10 03:03] VITALS: BMI 34.4
[2022-11-10 06:17] LABS: Absolute Lymphocyte Count 1.29 X10^3/uL (0.83-4.51); Absolute Neutrophil Count 3.4 X10^3/uL (2.0-7.7); Basophil# 0.03 X10^3/uL; Basophil% 0.6 % (0-1); Eosinophil# 0.14 X10^3/uL; Eosinophils% 2.6 % (0-5); Hematocrit 39.7 % (40-54); Hemoglobin 13.5 g/dL (13.0-16.5); Lymphocyte # 1.29 X10^3/ul (0.83-4.51); Mean Corpuscular Hgb 30.3 pg (27.0-32.0); Mean Platelet Vol. 10.1 fl (6.2-12.0); Monocyte# 0.47 X10^3/uL; Monocyte% 8.7 % (0-10); NRBC Flagged by Analyzer 0 % (0-5); Neutrophil # 3.43 X10^3/uL (2.7-7.7); Neutrophil % 63.7 % (47-70); POSITIVE COUNT YES; Platelet Count 88 K/mm3 (150-450); RBC Distribution Width CV 11.9 % (11.6-14.6); RBC Distribution Width SD 38.1 fl (35.1-43.9); Red Blood Count 4.46 M/mm3 (4.6-6.2); White Blood Count 5.4 K/mm3 (4.4-11.0)
[2022-11-10 06:18] LABS: Differential Indicated SCAN CRITERIA MET
[2022-11-10] MEDS: Insulin Lispro 100 UNIT/ML INSULN.PEN SC ×4 (06:32→21:28)
[2022-11-10 06:41] LABS: Anion Gap 5 (5-15); BUN 11 mg/dL (7-18); BUN/Creat Ratio 11.9 RATIO (10-20); Calcium,Total 7.9 mg/dL (8.5-10.1); Chloride 106 mmol/L (98-107); Creatinine, Serum 0.92 mg/dL (0.70-1.30); EST Glomerular Filtration Rate 86 mL/min (>60); Est Glom Filt Rate - Afr Amer 103 mL/min (>60); Estimated Creatinine Clearance 83.14 ml/min; Glucose 225 mg/dL (74-106); Potassium 4.3 mmol/L (3.5-5.1); Sodium Level 132 mmol/L (136-145)
[2022-11-10 06:52] LABS: Bedside Glucose 214 mg/dL (74-106)
[2022-11-10 07:01] LABS: Platelet Estimate MOD DEC (ADEQ)
[2022-11-10 07:52] VITALS: O2SAT 95
--- NOTE | 2022-11-10 09:38 | CASEMGMT ---
RAMON called [facility] and asked that they please review patient's PT/OT and get back to RAMON. Irene Hart NURSING SERVICE ADMINISTRATOR [facility]
[2022-11-10 10:18] VITALS: BP 123/63; PULSE 65; RESP 16; TEMP 36.4; O2SAT 97
[2022-11-10] MEDS: Isosorbide Mononitrate 30 MG Tablet PO (10:25)
[2022-11-10] MEDS: Clopidogrel Bisulfate 75 MG Tablet PO (10:25)
[2022-11-10] MEDS: Tamsulosin HCl 0.4 MG Capsule 0.800000000000000044 MG PO (10:25)
--- NOTE | 2022-11-10 10:50 | CASEMGMT ---
RAMON received a phone call from Cierra at [facility]. Cierra said she was told to call RAMON. RAMON explained RAMON just needs to know if they can take patient back or not. Cierra asked about how patient is getting around. RAMON asked that she review the PT/OT RAMON sent. Cierra asked if RAMON could re-fax them as she does not have them. RAMON re-faxed PT/OT for yesterday and today. Irene FAIR
--- NOTE | 2022-11-10 11:23 | PN_ITS ---
Subjective Subjective Patient seen and examined. He had no active complaints today and had an uneventful night. Review of systems is otherwise negative. He has remained hemodynamcially stable. Objective Data Objective Data Vital Signs: Vital Signs Temp Pulse Resp BP Pulse Ox O2 Del Method 97.5 F L 65 16 123/63 H 97 Room Air 11/10/22 10:18 11/10/22 10:18 11/10/22 10:18 11/10/22 10:18 11/10/22 10:18 11/10/22 10:18 Oxygen Delivery Method Room Air Weight: 268 lb 8.368 oz Body Mass Index (BMI) 34.4 Intake & Output: Intake and Output for Last 24 Hours 11/08/22 11/09/22 11/10/22 23:59 23:59 23:59 Intake Total 120 / 120 1553.33 / 1553.33 240 / 240 Output Total 1974 375 / 375 Balance 120 / 120 -421.67 / -421.67 -135 / -135 Lab / Micro Data 11/10/22 05:20 11/10/22 05:20 Labs: Laboratory Results - last 24 hr 11/09/22 16:12: POC Glucose 231 H 11/09/22 21:56: POC Glucose 261 H 11/10/22 05:20: WBC 5.4, RBC 4.46 L, Hgb 13.5, Hct 39.7 L, MCV 89.0, MCH 30.3, MCHC 34.0, RDW Std Deviation 38.1, RDW Coeff of Gage 11.9, Plt Count 88 L, MPV 10.1, Immature Gran % (Auto) 0.400, Neut % (Auto) 63.7, Lymph % (Auto) 24.0, [place] % (Auto) 8.7, Eos % (Auto) 2.6, Baso % (Auto) 0.6, Absolute Neuts (auto) 3.4, Absolute Lymphs (auto) 1.29, Nucleated RBC % 0, Platelet Estimate MOD DEC, Sodium 132 L, Potassium 4.3, Chloride 106, Carbon Dioxide 21.0, Anion Gap 5, BUN 11, Creatinine 0.92, Estim Creat Clear Calc 83.14, Est GFR (MDRD) Af Amer 103, Est GFR (MDRD) Non-Af 86, BUN/Creatinine Ratio 11.9, Glucose 225 H, Calcium 7.9 L 11/10/22 06:30: POC Glucose 214 H Micro: Microbiology 11/08/22 20:00 Mucosa - Nasopharyngeal Coronavirus COVID-19 PCR - Final 11/08/22 17:04 Nasal Secretion SARS-CoV-2 & FLU Antigen (Rapid) - Final Physical Exam Const alert, oriented x3 and no apparent distress General Appearance: cooperative HEENT normocephalic, head/scalp atraumatic, moist oral mucous membranes and oropharynx normal Neck no lymphadenopathy, supple and no JVD Lymph Lymphatic: no lymphadenopathy noted and no lymphedema noted Resp Resp Narrative: mildly diminished breath sounds bibasally, no wheezes or crackles. On room air. Cardio regular rate, regular rhythm, S1 normal heart sound, S2 normal heart sound and no murmurs GI normal to inspection, nondistended, normoactive bowel sounds, soft to palpation, non-tender and non-distended Extremity normal capillary refill, no clubbing, cyanosis or edema and no calf tenderness Skin General Skin Exam: no breakdown and turgor normal Neuro CN's II-XII intact bilaterally, no focal motor deficits, no sensory deficits noted and deep tendon reflexes 2+ bilaterally Psych thought process normal and cooperative Assessment & Plan Assessment/Plan (1) Adult failure to thrive: PLAN: Plan #Fever of unknown origin with adult failure to thrive * covid and flu tests were negative. Blood and urine cultures pending * CXR showed no evidence of infiltrate * PT/OT On board * fall precautions * #Hypertension: on losartan and imdur. #Hyperlipidemia: on statin #Type 2 diabetes mellitus: on ISS> Accuhecks ACHS # COPD: Not in exacerbation. Breathing treatment with bronchodilators #Elevated bilirubin: * Total bilirubin was 2.9 on admission and trended up to 3.7 * AST, ALT and ALP are all within normal limits. Etiology is unclear. * Will get a right upper quadrant ultrasound to evaluate. #Thrombocytopenia: Platelets were 107 on admission and trended downards; are 88 today. Hold lovenox and continue to trend. DVT prophylaxis:SCDs. DC lovenox o/a of thrombocytopenia Disposition: Deemed to need further therapy. Case management on board to help with placement. Charges/Coding Visit Charges Inpatient E&M: 99171 Subs Hosp L2
--- NOTE | 2022-11-10 11:30 | US_ITS ---
EXAM: US ABDOMEN LIMITED, RIGHT UPPER QUADRANT CLINICAL INDICATION: elevated liver enzymes TECHNIQUE: Real-time ultrasound of the right upper quadrant with image documentation. COMPARISON: No relevant prior studies available. FINDINGS: LIVER: Liver is echogenic. Limited evaluation. Liver is normal in size measuring 20 cm. No intrahepatic biliary ductal dilation. GALLBLADDER: Surgically absent. COMMON BILE DUCT: Unremarkable as visualized. The proximal common bile duct is within normal limits for the patient''s age. PANCREAS: Limited visualization of the pancreas. The tail was not seen. RIGHT KIDNEY: Right kidney is normal in size and echogenicity measuring 12.2 x 4.5 x 5 cm. Renal cortical thickness is normal. No mass, stone, or hydronephrosis. 2.2 x 2.3 cm simple right renal cyst. US/Gallbladder IMPRESSION: 1. No acute findings. 2. Hepatic steatosis. 3. Right renal cyst. Follow-up is not indicated per ACR guidelines. Electronically Signed: Dee Jeff MD at 18:57 EDT Reading Location ID and State: [id number] / Tel , Service support ,
[2022-11-10 12:10] LABS: AST(SGOT) 42 U/L (15-37); Alanine Aminotransfer ALT/SGPT 32 U/L (16-61); Albumin, Serum 2.6 g/dL (3.2-5.0); Alkaline Phosphatase 82 U/L (45-117); Bilirubin, Direct 0.19 mg/dL (0.00-0.30); Protein, Total 5.6 g/dL (6.4-8.2)
[2022-11-10 12:11] LABS: Bedside Glucose 261 mg/dL (74-106)
--- NOTE | 2022-11-10 12:48 | CASEMGMT ---
RAMON received a call from Cierra at [facility] asking if RAMON sent the therapy notes yet. RAMON let Cierra know RAMON sent them awhile ago. Cierra asked RAMON to re-fax them. RAMON re-faxed PT/OT. Irene FAIR
--- NOTE | 2022-11-10 13:30 | CASEMGMT ---
RAMON received a call from Cierra at [facility] and she said she still did not get the fax. RAMON e-mailed documents to [facility]. Irene FAIR
--- NOTE | 2022-11-10 13:38 | CASEMGMT ---
RAMON spoke with Cierra at [facility] and she said it looks like patient should go to a long-term facility. RAMON spoke with patient and he was upset and said, I am not going to a [facility]. RAMON let patient know [facility] does not feel like they can manage his care right now. Patient raised his voice and said he is not going to a intermediate. RAMON told patient he needs to call [facility] and discuss it with them. Patient immediately picked up his cell phone to call [facility]. Irene FAIR
--- NOTE | 2022-11-10 14:36 | CASEMGMT ---
RAMON spoke with therapy and it is felt patient would be fine to return to [place] if he normally gets around via his wheelchair which patient does. RAMON spoke with Cierra at [facility] and let her know. Cierra said that is fine and patient can return. RAMON notified patient and physician. Physician said she will not be discharging patient today. RAMON called [facility] and spoke with Suzanne letting her know this information. Plan: d/c back to [facility] when medically ready. Irene FAIR
[2022-11-10 15:31] VITALS: BP 106/62; PULSE 63; RESP 16; TEMP 36.9; O2SAT 97
[2022-11-10 17:51] LABS: Bedside Glucose 173 mg/dL (74-106)
[2022-11-10] MEDS: Atorvastatin Calcium 80 MG Tablet PO (21:25)
[2022-11-10] MEDS: MELATONIN 10 MG TABLET 5 MG PO (21:25)
[2022-11-10] MEDS: Montelukast 10 MG Tablet PO (21:26)
[2022-11-10 22:00] VITALS: BP 155/101; PULSE 83; RESP 18; TEMP 36.6; O2SAT 95
[2022-11-10 22:00] LABS: Bedside Glucose 260 mg/dL (74-106)
[2022-11-11] MEDS: Albuterol 2.5 MG/3 ML VIAL.NEB. INHALATION (01:37)
[2022-11-11 01:39] VITALS: PULSE 78; RESP 18
[2022-11-11 01:45] VITALS: O2SAT 94
[2022-11-11 04:00] VITALS: BP 115/51; PULSE 82; RESP 18; TEMP 36.2; O2SAT 95
[2022-11-11] MEDS: Insulin Lispro 100 UNIT/ML INSULN.PEN SC ×2 (05:55→11:55)
[2022-11-11 06:00] VITALS: BMI 34.0
[2022-11-11 06:14] LABS: Bedside Glucose 207 mg/dL (74-106)
[2022-11-11 06:48] LABS: Absolute Lymphocyte Count 1.16 X10^3/uL (0.83-4.51); Absolute Neutrophil Count 4.4 X10^3/uL (2.0-7.7); Basophil# 0.02 X10^3/uL; Basophil% 0.3 % (0-1); Eosinophil# 0.08 X10^3/uL; Eosinophils% 1.3 % (0-5); Hematocrit 38.9 % (40-54); Hemoglobin 13.6 g/dL (13.0-16.5); Lymphocyte # 1.16 X10^3/ul (0.83-4.51); Lymphocyte % 18.4 % (19-41); Mean Corpuscular Hgb 30.8 pg (27.0-32.0); Mean Corpuscular Volume 88.2 fL (80-94); Mean Platelet Vol. 9.4 fl (6.2-12.0); Monocyte# 0.62 X10^3/uL; Monocyte% 9.8 % (0-10); NRBC Flagged by Analyzer 0 % (0-5); Neutrophil # 4.41 X10^3/uL (2.7-7.7); Neutrophil % 69.9 % (47-70); Platelet Count 100 K/mm3 (150-450); RBC Distribution Width CV 11.7 % (11.6-14.6); RBC Distribution Width SD 37.6 fl (35.1-43.9); Red Blood Count 4.41 M/mm3 (4.6-6.2); White Blood Count 6.3 K/mm3 (4.4-11.0)
[2022-11-11 07:25] LABS: Anion Gap 5 (5-15); BUN 10 mg/dL (7-18); BUN/Creat Ratio 11.1 RATIO (10-20); Calcium,Total 8.1 mg/dL (8.5-10.1); Chloride 104 mmol/L (98-107); EST Glomerular Filtration Rate 88 mL/min (>60); Est Glom Filt Rate - Afr Amer 107 mL/min (>60); Estimated Creatinine Clearance 84.99 ml/min; Glucose 210 mg/dL (74-106); Potassium 3.7 mmol/L (3.5-5.1); Sodium Level 134 mmol/L (136-145)
[2022-11-11] MEDS: Polyethylene Glycol 3350 17 GM PACKET PO (09:01)
[2022-11-11] MEDS: Enoxaparin 40 MG/0.4 ML Syringe SC (09:01)
[2022-11-11] MEDS: Isosorbide Mononitrate 30 MG Tablet PO (09:02)
[2022-11-11] MEDS: Tamsulosin HCl 0.4 MG Capsule 0.800000000000000044 MG PO (09:02)
[2022-11-11] MEDS: Losartan Potassium 25 MG Tablet PO (09:02)
[2022-11-11] MEDS: Clopidogrel Bisulfate 75 MG Tablet PO (09:02)
[2022-11-11 11:32] LABS: Bedside Glucose 236 mg/dL (74-106)
[2022-11-11 11:32] LABS: Bedside Glucose 233 mg/dL (74-106)
[2022-11-11 11:41] VITALS: BP 144/78; PULSE 85; RESP 18; TEMP 36.7; O2SAT 97
--- NOTE | 2022-11-11 11:47 | DCINST_ITS ---
Discharge Instructions Diet Discharge Diet: Low fat / Low cholesterol and 1800 Calorie Control Diet Activity Discharge Activity: Return to Normal Activity Weight Bearing Status: Weight bearing as tolerated Dressing / Incision Call your doctor if you observe: Fever of 101 or Higher, Shortness of breath and Swelling in the ankles Follow Up Care Test Results: Test results from this visit will be discussed in further detail at your follow- up appointment, if applicable. Discharge Plan Admission Admit Date/Time: 11/08/22 19:56 Primary Reason for Your Visit: adult failure to thrive Attending Provider: Tanika Kunz Primary Care Provider: Jessica Alvarez MATERIAL HANDLING WAREHOUSE SUPERVISOR Consulting Providers: Bridgett Villagomez Instructions Patient Instructions: ED Weakness (Uncertain Cause) Discharge Orders/Prescriptions Prescriptions: Continued atorvastatin 80 mg tablet 80 mg PO QHS cetirizine 5 mg tablet 5 mg PO QHS Patient Comments: 1 TABLET BY MOUTH ATIBEDTIME DX: / NURSE TO REORDER clopidogrel 75 mg tablet 75 mg PO DAILY isosorbide mononitrate 30 mg tablet extended release 24 hr 30 mg PO DAILY losartan 25 mg tablet 25 mg PO DAILY melatonin 5 mg tablet 5 mg PO QHS metformin 500 mg tablet 500 mg PO BID montelukast 10 mg tablet 10 mg PO QHS polyethylene glycol 3350 [Gavilax] 17 gram/dose powder 17 g PO .EVERY OTHER DAY Patient Comments: 17 GRAMS DISSOLVED INILIQUID EVERY OTHER DAY FOR CONSTIPATION HOLD FOR DIARRHEA, CALL MD IF NO BM IN 24 HRS tamsulosin 0.4 mg capsule 0.8 mg PO DAILY Tradjenta 5 mg tablet 5 mg PO DAILY icosapent ethyl [Vascepa] 1 gram capsule 2 g PO BID cholecalciferol (vitamin D3) [Vitamin D3] 125 mcg (5,000 unit) tablet 5,000 unit PO QWEEK Referrals / Follow Up: Jessica Alvarez MATERIAL HANDLING WAREHOUSE SUPERVISOR, MATERIAL HANDLING WAREHOUSE SUPERVISOR-C [Primary Care Provider] - Within 2 Weeks Disposition Disposition (needs filled in before D/C Order can be placed): Assisted Living
--- NOTE | 2022-11-11 11:47 | DS.PCM_ITS ---
Providers Date of Admission: 11/08/22 Date of Discharge: 11/11/22 Primary Care Physician: Jessica Alvarez, TARI Reason For Visit: ADULT FTT, FUO Diagnosis Discharge Diagnosis (1) Adult failure to thrive: Status: Acute Code(s): R62.7 - Adult failure to thrive Plan #Fever of unknown origin with adult failure to thrive * covid and flu tests were negative. Blood and urine cultures pending * CXR showed no evidence of infiltrate * PT/OT On board * fall precautions * #Hypertension: on losartan and imdur. #Hyperlipidemia: on statin #Type 2 diabetes mellitus: on ISS> Accuhecks ACHS # COPD: Not in exacerbation. Breathing treatment with bronchodilators #Elevated bilirubin: * Total bilirubin was 2.9 on admission and trended up to 3.7 * AST, ALT and ALP are all within normal limits. Etiology is unclear. * Will get a right upper quadrant ultrasound to evaluate. #Thrombocytopenia: Platelets were 107 on admission and trended downards; are 88 today. Hold lovenox and continue to trend. DVT prophylaxis:SCDs. DC lovenox o/a of thrombocytopenia Disposition: Deemed to need further therapy. Case management on board to help with placement. Medications at Discharge Home Medications atorvastatin 80 mg tablet 80 mg PO QHS cholesterol 11/08/22 cetirizine 5 mg tablet 5 mg PO QHS allergies 11/08/22 cholecalciferol (vitamin D3) 125 mcg (5,000 unit) tablet (Vitamin D3) 5,000 unit PO QWEEK vitamin 11/08/22 clopidogrel 75 mg tablet 75 mg PO DAILY anti platelet 11/08/22 icosapent ethyl 1 gram capsule (Vascepa) 2 g PO BID triglycerides 11/08/22 isosorbide mononitrate 30 mg tablet,extended release 24 hr 30 mg PO DAILY heart 11/08/22 linagliptin 5 mg tablet (Tradjenta) 5 mg PO DAILY diabetes 11/08/22 losartan 25 mg tablet 25 mg PO DAILY blood pressure 11/08/22 melatonin 5 mg tablet 5 mg PO QHS sleep 11/08/22 metformin 500 mg tablet 500 mg PO BID diabetes 11/08/22 montelukast 10 mg tablet 10 mg PO QHS allergies 11/08/22 polyethylene glycol 3350 17 gram/dose oral powder (Gavilax) 17 g PO .EVERY OTHER DAY constipation 11/08/22 tamsulosin 0.4 mg capsule 0.8 mg PO DAILY prostate 11/08/22 Hospital Course Operations None Summary of Care Provided Minutes Spent on Discharge: 47 Hospital Course: Patient is a 72 y/o male with a PMH as outlined who was admitted via the ED on 11/08/2022 with a complaint of nausea and dizziness as well as increased fatigue and malaise. He had an onset of vertigo or lightheadedness. He had been getting weaker in his assisted living facility after he had had a recent COVID illness. Review of systems otherwise negative. Labs were essentially unremar kable. Influenza and COVID test were negative. Urine tox showed no evidence of UTI. He was admitted and managed for debility and failure to thrive as well as fever of unknown origin. Fever resolved and patient felt much better. Chest x- ray showed no evidence of infiltrate. His bilirubin was mildly elevated on admission but subsequently trended downwards. He did have a right upper quadrant ultrasound which showed hepatic steatosis but no other acute findings and he had a surgically absent gallbladder. He did have a right renal cysts for which follow-up was not indicated based on guidelines according to CAT scan reviewed. Patient remained stable and was worked with physical therapy. He was discharged back to assisted living facility on 11/11/2022. He is follow-up with his primary care doctor within 1 to 2 weeks. Patient seen and examined prior to discharge. He had no complaints and wanted to be discharged. Review of systems otherwise negative. Labs and vitals reviewed. Home medication reviewed and reconciled. Physical Exam Const alert, oriented x3 and no apparent distress General Appearance: cooperative, comfortable and well kempt HEENT normocephalic, head/scalp atraumatic, hearing grossly normal bilaterally, moist oral mucous membranes and oropharynx normal Neck no lymphadenopathy, supple and no JVD Lymph Lymphatic: no lymphadenopathy noted and no lymphedema noted Resp Resp Narrative: mildly diminished breath sounds bibasally, no wheezes or crackles. On room air. Cardio regular rate, regular rhythm, S1 normal heart sound, S2 normal heart sound and no murmurs GI normal to inspection, nondistended, normoactive bowel sounds, soft to palpation, non-tender and non-distended Extremity full ROM, normal capillary refill, no clubbing, cyanosis or edema and no calf tenderness Skin no rashes or lesions noted General Skin Exam: no breakdown and turgor normal Neuro oriented x3, CN's II-XII intact bilaterally, moves all extremities, no focal motor deficits, no sensory deficits noted and deep tendon reflexes 2+ bilaterally Sensorium / Orientation: awake Motor Exam: strength 5/5 throughout Psych thought process normal and cooperative Weight / BMI Weight Weight: 264 lb 8.875 oz Body Mass Index (BMI) 34.0 ABG / Lab / Microbiology Data 11/11/22 06:28 11/11/22 06:28 Laboratory: Laboratory Results - last 24 hr 11/10/22 05:20: Total Bilirubin 2.70 H, Direct Bilirubin 0.19, AST 42 H, ALT 32, Alkaline Phosphatase 82, Total Protein 5.6 L, Albumin 2.6 L, Globulin 3.0 11/10/22 11:23: POC Glucose 261 H 11/10/22 17:31: POC Glucose 173 H 11/10/22 21:28: POC Glucose 260 H 11/11/22 05:54: POC Glucose 207 H 11/11/22 06:28: WBC 6.3, RBC 4.41 L, Hgb 13.6, Hct 38.9 L, MCV 88.2, MCH 30.8, M CHC 35.0, RDW Std Deviation 37.6, RDW Coeff of Gage 11.7, Plt Count 100 L, MPV 9.4, Immature Gran % (Auto) 0.300, Neut % (Auto) 69.9, Lymph % (Auto) 18.4 L, [place] % (Auto) 9.8, Eos % (Auto) 1.3, Baso % (Auto) 0.3, Absolute Neuts (auto) 4.4, Absolute Lymphs (auto) 1.16, Nucleated RBC % 0, Sodium 134 L, Potassium 3.7, Chloride 104, Carbon Dioxide 25.0, Anion Gap 5, BUN 10, Creatinine 0.90, Estim Creat Clear Calc 84.99, Est GFR (MDRD) Af Amer 107, Est GFR (MDRD) Non-Af 88, BUN/Creatinine Ratio 11.1, Glucose 210 H, Calcium 8.1 L 11/11/22 08:58: POC Glucose 233 H 11/11/22 10:56: POC Glucose 236 H Microbiology: Microbiology 11/08/22 20:00 Mucosa - Nasopharyngeal Coronavirus COVID-19 PCR - Final 11/08/22 17:04 Nasal Secretion SARS-CoV-2 & FLU Antigen (Rapid) - Final Radiography Diagnostic Testing: Radiology Impression Gallbladder Ultrasound 11/10/22 11:30 IMPRESSION: 1. No acute findings. 2. Hepatic steatosis. 3. Right renal cyst. Follow-up is not indicated per ACR guidelines. Electronically Signed: Dee Jeff MD at 18:57 EDT Reading Location ID and State: [id number] / Tel , Service support , D/C Instructions Discharge Diet: Low fat / Low cholesterol and 1800 Calorie Control Diet Weight Bearing Status: Weight bearing as tolerated Call your doctor if you observe: Fever of 101 or Higher, Shortness of breath and Swelling in the ankles Meaningful Use Info Meaningful Use Diagnoses (Choose all that apply): None applicable Discharge Plan Admission Admit Date/Time: 11/08/22 19:56 Primary Reason for Your Visit: adult failure to thrive Attending Provider: Tanika Kunz Primary Care Provider: Jessica Alvarez BUSINESS SYSTEMS LEAD Consulting Providers: Bridgett Villagomez Instructions Patient Instructions: ED Weakness (Uncertain Cause) Discharge Orders/Prescriptions Prescriptions: Continued atorvastatin 80 mg tablet 80 mg PO QHS cetirizine 5 mg tablet 5 mg PO QHS Patient Comments: 1 TABLET BY MOUTH ATIBEDTIME DX: / NURSE TO REORDER clopidogrel 75 mg tablet 75 mg PO DAILY isosorbide mononitrate 30 mg tablet extended release 24 hr 30 mg PO DAILY losartan 25 mg tablet 25 mg PO DAILY melatonin 5 mg tablet 5 mg PO QHS metformin 500 mg tablet 500 mg PO BID montelukast 10 mg tablet 10 mg PO QHS polyethylene glycol 3350 [Gavilax] 17 gram/dose powder 17 g PO .EVERY OTHER DAY Patient Comments: 17 GRAMS DISSOLVED INILIQUID EVERY OTHER DAY FOR CONSTIPATION HOLD FOR DIARRHEA, CALL MD IF NO BM IN 24 HRS tamsulosin 0.4 mg capsule 0.8 mg PO DAILY Tradjenta 5 mg tablet 5 mg PO DAILY icosapent ethyl [Vascepa] 1 gram capsule 2 g PO BID cholecalciferol (vitamin D3) [Vitamin D3] 125 mcg (5,000 unit) tablet 5,000 unit PO QWEEK Referrals / Follow Up: Jessica Alvarez BUSINESS SYSTEMS LEAD, BUSINESS SYSTEMS LEAD-C [Primary Care Provider] - Within 2 Weeks Disposition Disposition (needs filled in before D/C Order can be placed): Assisted Living Charges/Coding Visit Charges Inpatient E&M: 35680 Disch Hosp >30min
--- NOTE | 2022-11-11 13:42 | NURSING ---
message was left with phone number provided that patient would be transferred at 330pm. I did not state patients name because phone goes to a voicemail that does not state their organizations name. I also stated that if they wanted report to please call the hospital, I was unable to leave any information in the voice mail.
--- NOTE | 2022-11-11 15:22 | NURSING ---
Patient discharged per orders. Receiving facility sent transportation back to assisted living.
== END 2022-11-11 15:02 | disposition home or self-care (01) ==
LOC: ED 19:51 → PCU 20:03
PROVIDERS: Admitting Provider Family Medicine; Emergency Provider Student in an Organized Health Care Education/Training Program; PCP Nurse Practitioner Adult Health; Visit Provider Student in an Organized Health Care Education/Training Program
DX: R62.7 Adult failure to thrive (principal); J44.9 Chronic obstructive pulmonary disease, unspecified; E11.22 Type 2 diabetes mellitus with diabetic chronic kidney disease; E11.65 Type 2 diabetes mellitus with hyperglycemia; D69.6 Thrombocytopenia, unspecified; R11.2 Nausea with vomiting, unspecified; R53.1 Weakness; E78.5 Hyperlipidemia, unspecified; K76.0 Fatty (change of) liver, not elsewhere classified; Z20.822 Contact with and (suspected) exposure to COVID-19; N28.1 Cyst of kidney, acquired; I12.9 Hypertensive chronic kidney disease with stage 1 through stage 4 chronic kidney disease, or unspecified chronic kidney disease; R42 Dizziness and giddiness; R53.81 Other malaise; N18.2 Chronic kidney disease, stage 2 (mild); N40.0 Benign prostatic hyperplasia without lower urinary tract symptoms; Z79.899 Other long term (current) drug therapy; Z79.82 Long term (current) use of aspirin; Z79.84 Long term (current) use of oral hypoglycemic drugs; E66.9 Obesity, unspecified; Z68.35 Body mass index [BMI] 35.0-35.9, adult; R50.9 Fever, unspecified; E86.0 Dehydration; E80.6 Other disorders of bilirubin metabolism; F17.210 Nicotine dependence, cigarettes, uncomplicated; Z99.3 Dependence on wheelchair; Z86.16 Personal history of COVID-19
CPT/HCPCS: 36415; 71045; 76705; 80048; 80053; 80076; 81001; 82962; 84145; 84484; 85025; 87428; 87635; 93005; 94640; 96360; 96361; 96374; 97110; 97162; 97166; 97530; 97535; 99221; 99284; 99285; J7030; A4216; G0378; J2405

== ENCOUNTER → 2022-12-28 | Outpatient (CLI) | payer MEDICARE, MEDICAID, SELFPAY ==
--- NOTE | 2022-12-28 13:36 | BD_ITS ---
STUDY: DUAL ENERGY X-RAY ABSORPTIOMETRY / DXA REASON FOR EXAM: Male, 72 years old. M810 TECHNIQUE: Bone Mineral Density (BMD) measurements of lumbar spine and bilateral hips were obtained. COMPARISON: None. FINDINGS: Lumbar Spine (L1-L4): g/cm2 (1.243) / T-score (1.4) / Z-score (2.4) Findings are suggestive of normal bone density with a low fracture risk. Left Femur Total: g/cm2 (1.222) / T-score (1.3) / Z-score (2.0) Left Femoral Neck: g/cm2 (0.908) / T-score (-0.2) / Z-score (1.1) Right Femur Total: g/cm2 (1.145) / T-score (0.7) / Z-score (1.5) Right Femoral Neck: g/cm2 (0.908) / T-score (-0.2) / Z-score (1.1) BD/Dexa Bone Density Study IMPRESSION: The patient is considered normal as outlined below according to World [employer] Organization (WHO) criteria with a low fracture risk. Reference Information: The T-score is the number of standard deviations above or below the standard which is normal for young adults at their peak bone mineral density. The World Health Organization (WHO) interprets the T-scores as follows: Above -1 Normal bone density Between -1 and -2.5 Osteopenia Equal to / or below -2.5 Osteoporosis As a practical clinical guideline, osteopenia may be graded as follows: Mild -1 through -1.5 Moderate -1.6 through -2.0 Severe -2.1 through -2.4 The Z-score is the number of standard deviations above or below age-matched controls. A Z-score of less than -1.5 would be considered abnormal. References: 1. NIH Osteoporosis and Related Bone Diseases www osteo.org 2. International Society for Clinical Densitometry www iscd.org 3. National Osteoporosis Foundation www nof.org Electronically Signed: Serge Faith MD at 14:12 EDT ,
== END | disposition home or self-care (01) ==
PROVIDERS: PCP Nurse Practitioner Adult Health; Referring Provider Nurse Practitioner Adult Health; Visit Provider Nurse Practitioner Adult Health
DX: M81.0 Age-related osteoporosis without current pathological fracture (principal); Z12.5 Encounter for screening for malignant neoplasm of prostate; Z12.11 Encounter for screening for malignant neoplasm of colon
CPT/HCPCS: 77080

== ENCOUNTER 2023-11-08 01:03 | Inpatient (IN) | payer MEDICARE, MEDICAID, SELFPAY ==
[2023-11-08] VITALS (17 sets, daily range): BP systolic 103–156; BP diastolic 42–93; PULSE 68–110; RESP 16–32; TEMP 36.9–38.3; O2SAT 92–97; BMI 39.0; BMI 33.2
--- NOTE | 2023-11-08 01:09 | EDS_ITS ---
HPI History of Present Illness Chief Complaint: Weakness Informant: patient Onset/Context/Timing Onset: Yesterday Context: Sudden Onset Timing: Continuous Quality: Cramping Location: Abdomen Worsened by: Nothing Relieved by: Nothing Narrative Narrative: Patient presents with nausea vomiting, and diarrhea that began yesterday. Patient states that has been constant. Patient states he has not been able to keep anything down. Patient states he is having dry heaves currently. Patient states he had a fever of 101 at home. Patient states nothing makes his symptoms better nothing makes them worse. Patient denies any chest pain or cough. Patient denies any shortness of breath. Patient denies any urinary complaints. [facility] Medical History Adult failure to thrive Obesity Allergic rhinitis CKD (chronic kidney disease), stage II Former tobacco use COPD (chronic obstructive pulmonary disease) BPH (benign prostatic hyperplasia) Hyperlipemia HTN (hypertension) Diabetes Home Medications ?Medication ?Instructions ?Recorded ?Last Taken ?Type atorvastatin 80 mg tablet 80 mg PO QHS cholesterol 11/08/22 Unknown History cetirizine 5 mg tablet 5 mg PO QHS allergies 11/08/22 Unknown History cholecalciferol (vitamin D3) 125 5,000 unit PO QWEEK vitamin 11/08/22 Unknown History mcg (5,000 unit) tablet (Vitamin D3) clopidogrel 75 mg tablet 75 mg PO DAILY anti platelet 11/08/22 11/08/22 History icosapent ethyl 1 gram capsule 2 g PO BID triglycerides 11/08/22 Unknown History (Vascepa) isosorbide mononitrate 30 mg 30 mg PO DAILY heart 11/08/22 Unknown History tablet,extended release 24 hr linagliptin 5 mg tablet (Tradjenta) 5 mg PO DAILY diabetes 11/08/22 Unknown History losartan 25 mg tablet 25 mg PO DAILY blood pressure 11/08/22 Unknown History melatonin 5 mg tablet 5 mg PO QHS sleep 11/08/22 Unknown History metformin 500 mg tablet 500 mg PO BID diabetes 11/08/22 Unknown History montelukast 10 mg tablet 10 mg PO QHS allergies 11/08/22 Unknown History polyethylene glycol 3350 17 17 g PO .EVERY OTHER DAY 11/08/22 Unknown History gram/dose oral powder (Gavilax) constipation tamsulosin 0.4 mg capsule 0.8 mg PO DAILY prostate 11/08/22 Unknown History Allergy/AdvReac Type Severity Reaction Status Date / Time No Known Allergies Allergy Verified 11/08/23 01:04 Family History Mother Diabetes Cancer Father Diabetes Cancer Surgical History History of herniorrhaphy Hx of cholecystectomy Hx of appendectomy Social History housing: assisted living facility Smoking Status: Former smoker alcohol intake: never substance use type: does not use ROS ROS ED Constitutional Constitutional ED: Reports fever(s); Denies chills Eyes Eyes: Denies blurry vision or change in vision ENT ENT ED: Denies rhinorrhea or sore throat Cardiovascular Cardiovascular: Denies chest pain or palpitations Respiratory/Chest Respiratory/Chest: Denies cough or dyspnea Gastrointestinal Gastrointestinal: Reports abdominal pain, diarrhea, nausea and vomiting Genitourinary Genitourinary ED: Denies dysuria or hematuria Musculoskeletal Musculoskeletal: Denies back pain or neck pain Integumentary Denies abscess Neurologic Neurologic: Denies headache(s) or weakness Allergic/Immunologic Allergic/Immunologic ED: Denies mouth swelling or urticaria EXAM Physical Exam Const Vital Signs: 11/08/23 01:04 11/08/23 01:12 11/08/23 01:12 Temperature 101.0 F H 101.0 F H Temperature Source Oral Oral Pulse Rate 92 101 H Respiratory Rate 18 20 H Respiratory Effort Normal Non-Labored Respiratory Pattern Normal Blood Pressure 140/77 H 140/77 H Blood Pressure Mean 98 98 Pulse Ox 95 96 Oxygen Delivery Method Room Air Room Air 11/08/23 02:12 Temperature 99.7 F H Temperature Source Oral Pulse Rate 88 Respiratory Rate 20 H Respiratory Effort Respiratory Pattern Blood Pressure 129/62 H Blood Pressure Mean 84 Pulse Ox 94 Oxygen Delivery Method Room Air Positive well nourished and well developed General Appearance ED: well developed and NAD HEENT Reports dry mucous membranes Mouth ED: Yes dry mucous membranes Mouth: dry mucous membranes Neck supple and no JVD Resp normal respiratory effort Auscultation: diminished lung sounds diffuse Cardio regular rate and regular rhythm GI non-tender and non-distended Palpation: soft Neuro oriented x3, CN's II-XII intact bilaterally and no sensory deficits noted Sensorium / Orientation: alert Motor Exam: strength 5/5 throughout Psych mental status grossly normal MDM MDM MDM Narrative Medical decision making narrative: Differential diagnosis includes gastroenteritis, dehydration, urinary tract infection, pneumonia, and sepsis. CBC will be obtained to assess for leukocytosis and anemia. Basic metabolic profile will be obtained to assess for electrolyte abnormality and renal function. Urinalysis will be obtained to assess for urinary tract infection and hematuria. Chest x-ray will be obtained to assess for pneumonia. Lactate will be obtained to assess for sepsis. Blood culture will be obtained to assess for sepsis. Urine culture will be obtained to assess for urinary tract infection. Lab Data Attestation: I reviewed the patient's lab results. Lab results narrative: CBC was reviewed and was within normal limits. Basic metabolic profile was reviewed and was essentially within normal limits. Serum lactate was reviewed and was elevated at 2.4. Urinalysis was reviewed. Leukocyte esterase was 500 with 25-50 white blood cells and 3+ bacteria. They were positive nitrites. COVID-19 PCR was reviewed and was negative. Influenza PCR was reviewed and was negative for influenza A and influenza B. RSV PCR was reviewed and was negative. Labs: Laboratory Results - last 24 hr 11/08/23 11/08/23 01:11 01:58 WBC 9.0 RBC 4.79 Hgb 14.6 Hct 42.0 MCV 87.7 MCH 30.5 MCHC 34.8 RDW Std Deviation 38.6 RDW Coeff of Gage 12.0 Plt Count 110 L MPV 10.1 Immature Gran % (Auto) 0.400 Neut % (Auto) 88.8 H Lymph % (Auto) 7.1 L [place] % (Auto) 2.8 Eos % (Auto) 0.7 Baso % (Auto) 0.2 Absolute Neuts (auto) 8.0 H Absolute Lymphs (auto) 0.64 L Nucleated RBC % 0 Sodium 135 L Potassium 3.8 Chloride 102 Carbon Dioxide 23.0 Anion Gap 10 BUN 10 Creatinine 0.92 Estim Creat Clear Calc 104.14 Est GFR (MDRD) Af Amer 104 Est GFR (MDRD) Non-Af 86 BUN/Creatinine Ratio 10.9 Glucose 142 H Lactic Acid 2.4 H* Calcium 8.9 Urine Color Yellow Urine Clarity Sl. Cloudy Urine pH 6.0 Ur Specific Rarden 1.020 Urine Protein 15 H Urine Glucose (UA) Normal Urine Ketones 5 H Urine Occult Blood 25 H Urine Nitrite Positive H Urine Bilirubin Negative Urine Urobilinogen Normal Ur Leukocyte Esterase 500 H Urine RBC 0-5 SEEN Urine WBC 25-50 SEEN Ur Squamous Epith Cells 0 SEEN Urine Bacteria 3+ Urine Mucus 0 SEEN Radiography Chest X-Ray - ED: 2 View, Read by ED Physician, Read by Radiologist, Right Infiltrate and Left Infiltrate Diagnostic Testing: Clinical Impression(s) from Imaging Studies Chest X-Ray 11/08/23 01:19 IMPRESSION: Bibasilar atelectasis versus infiltrate, left greater than right Electronically Signed: Jackson Leroy MD at 2:11 EDT , PA and lateral chest x-ray was obtained. There are 2 views. On my independent interpretation, lung zhang show bibasilar atelectasis versus infiltrate, worse on the left. There is normal cardiac silhouette. Bony thorax is normal. Radiologist also interpreted the x-ray and agrees. Management Discussion w/another healthcare provider: Hospitalist Treatment and Re-Evaluation :: Patient was given IV fluids and Tylenol. Patient was started on Rocephin and Zithromax. Patient was advised of his findings. Case was discussed with the hospitalist for admission. She will admit the patient to her service. Patient understood and was agreeable with the plan. All questions were answered. Discharge Plan Dx/Rx/DC Orders Clinical Impression: Urinary tract infection, Acidosis, lactic, Pneumonia Disposition Disposition: Acute Care Hospital [facility]
--- NOTE | 2023-11-08 01:19 | RAD_ITS ---
EXAM: XR Chest 2 Views INDICATION: Male, 73 years old. Fever TECHNIQUE: PA and lateral views COMPARISON: 11/09/2022 FINDINGS: DEVICES: None LUNGS: Patchy airspace opacification throughout the left lung base and at the left medial lung base. No concerning pulmonary nodule. No pleural effusion or pneumothorax. MEDIASTINUM: Cardiac and mediastinal silhouettes are within normal limits. No central pulmonary vascular congestion. . SKELETAL STRUCTURES: No acute skeletal abnormality. Multilevel degenerative change of the spine. UPPER ABDOMEN: Unremarkable RAD/Chest PA and Lateral IMPRESSION: Bibasilar atelectasis versus infiltrate, left greater than right Electronically Signed: Jackson Leroy MD at 2:11 EDT ,
[2023-11-08] MEDS: Acetaminophen 500 MG Tablet 1000 MG PO (01:38)
[2023-11-08] MEDS: Ondansetron 4 MG/2 ML Vial IV (01:38)
[2023-11-08 01:42] LABS: Absolute Lymphocyte Count 0.64 X10^3/uL (0.83-4.51); Basophil# 0.02 X10^3/uL; Basophil% 0.2 % (0-1); Eosinophil# 0.06 X10^3/uL; Eosinophils% 0.7 % (0-5); Hemoglobin 14.6 g/dL (13.0-16.5); Lymphocyte # 0.64 X10^3/ul (0.83-4.51); Lymphocyte % 7.1 % (19-41); Mean Corp Hgb Conc 34.8 g/dL (32-36); Mean Corpuscular Hgb 30.5 pg (27.0-32.0); Mean Corpuscular Volume 87.7 fL (80-94); Mean Platelet Vol. 10.1 fl (6.2-12.0); Monocyte# 0.25 X10^3/uL; Monocyte% 2.8 % (0-10); NRBC Flagged by Analyzer 0 % (0-5); Neutrophil # 7.97 X10^3/uL (2.7-7.7); Neutrophil % 88.8 % (47-70); Platelet Count 110 K/mm3 (150-450); RBC Distribution Width SD 38.6 fl (35.1-43.9); Red Blood Count 4.79 M/mm3 (4.6-6.2)
[2023-11-08] MEDS: 0.9% Normal Saline (1000mL) 1,000 ML 1000 ML IV (01:44)
[2023-11-08 01:53] LABS: Anion Gap 10 (5-15); BUN 10 mg/dL (7-18); BUN/Creat Ratio 10.9 RATIO (10-20); Calcium,Total 8.9 mg/dL (8.5-10.1); Chloride 102 mmol/L (98-107); Creatinine, Serum 0.92 mg/dL (0.70-1.30); EST Glomerular Filtration Rate 86 mL/min (>60); Est Glom Filt Rate - Afr Amer 104 mL/min (>60); Estimated Creatinine Clearance 104.14 ml/min; Glucose 142 mg/dL (74-106); Potassium 3.8 mmol/L (3.5-5.1); Sodium Level 135 mmol/L (136-145)
[2023-11-08 02:02] LABS: Mucous, Urine 0 SEEN /hpf (<or=2+); Squamous Epithelial Cells - UA 0 SEEN /hpf (0-5)
[2023-11-08 02:03] LABS: Color, Urine Yellow (Yellow); Glucose, Dipstick Normal (Normal); Ketone-Dipstick 5 mg/dl (Negative); Leukocyte Esterase-Dipstick 500 /ul (Negative); Nitrite-Dipstick Positive (Negative); Occult Blood-Urine 25 /ul (Negative); Protein-Dipstick 15 mg/dl (Negative); Urine Bilirubin Dipstick Negative (Negative); Urine Clarity Sl. Cloudy (Clear); Urine Urobilinogen Normal (Normal)
[2023-11-08 02:05] LABS: Lactic Acid 2.4 mmol/L (0.4-1.9)
[2023-11-08 02:10] LABS: Bacteria 3+ /hpf (None Seen); Red Blood Cells-Urine 0-5 SEEN /hpf (0-5); White Blood Cells 25-50 SEEN /hpf (0-5)
--- NOTE | 2023-11-08 02:30 | PCM.HP.STD ---
HPI - General General Date of Admission: 11/08/23 Date of Service: 11/08/23 Chief Complaint: N/V/D, fever. HPI Narrative The patient is a 73 y/o M w/ PMHx: Chronic thrombocytopenia, Former Tobacco use, HTN, HLD, BPH, Diabetes mellitus type II, COPD, CKD per GFR trending, Obesity, Hx COVID illness who presents to the [facility] ED on 11/08/23 with history of onset over last 24 hours nausea, emesis and loose stools which has been constant with inability to keep anything down with dry heaving with onset of fever 101 at home with no recent chest discomfort or marked URI type symptoms nor any dyspnea nor urinary complaints but given ongoing GI symptoms prompted eventual ED evaluation. He does report suprapubic discomfort. Workup in the ED included T101.0, heart rate 101, respiratory rate 20, BP 140/77, 96% on room air with most recent repeat vital signs T99.7, heart 88, BP 120 #62, respiratory rate 20, 94% on room air CBC with WBC 9.0, human 14.6, platelet 110 with left shift and lymphopenia, BMP with sodium 135, glucose 142, lactic acid mildly elevated 2.4, urinalysis with specific gravity 1.020, protein 15, ketone 5, occult blood 25, positive nitrite, leukocyte esterase 50, urine WBCs 25-50 with 3+ urine bacteria, urine culture pending per ED, blood culture x 2 pending per ED, chest x-ray with bilateral atelectasis versus infiltrate, left greater than right, rapid respiratory COVID/influenza/RSV negative. In the ED patient ministered 1 L normal saline, Zofran 4 mg IV x 1, Tylenol 1000 mg p.o. x 1 in addition to Rocephin 2 g IV x 1 and azithromycin 500 mg IV x 1. Of note patient denies any allergy to asa, denies TIA/CVA history, denies PCI cardiac history as he is on plavix and does not know exactly why. [facility] Medical History Adult failure to thrive Obesity Allergic rhinitis CKD (chronic kidney disease), stage II Former tobacco use COPD (chronic obstructive pulmonary disease) BPH (benign prostatic hyperplasia) Hyperlipemia HTN (hypertension) Diabetes Home Medications ?Medication ?Instructions ?Recorded ?Last Taken ?Type atorvastatin 80 mg tablet 80 mg PO QHS cholesterol 11/08/22 Unknown History cetirizine 5 mg tablet 5 mg PO QHS allergies 11/08/22 Unknown History cholecalciferol (vitamin D3) 125 5,000 unit PO QWEEK vitamin 11/08/22 Unknown History mcg (5,000 unit) tablet (Vitamin D3) clopidogrel 75 mg tablet 75 mg PO DAILY anti platelet 11/08/22 11/08/22 History icosapent ethyl 1 gram capsule 2 g PO BID triglycerides 11/08/22 Unknown History (Vascepa) isosorbide mononitrate 30 mg 30 mg PO DAILY heart 11/08/22 Unknown History tablet,extended release 24 hr linagliptin 5 mg tablet (Tradjenta) 5 mg PO DAILY diabetes 11/08/22 Unknown History losartan 25 mg tablet 25 mg PO DAILY blood pressure 11/08/22 Unknown History melatonin 5 mg tablet 5 mg PO QHS sleep 11/08/22 Unknown History metformin 500 mg tablet 500 mg PO BID diabetes 11/08/22 Unknown History montelukast 10 mg tablet 10 mg PO QHS allergies 11/08/22 Unknown History polyethylene glycol 3350 17 17 g PO .EVERY OTHER DAY 11/08/22 Unknown History gram/dose oral powder (Gavilax) constipation tamsulosin 0.4 mg capsule 0.8 mg PO DAILY prostate 11/08/22 Unknown History Allergy/AdvReac Type Severity Reaction Status Date / Time No Known Allergies Allergy Verified 11/08/23 01:04 Family History Mother Diabetes Cancer Father Diabetes Cancer Surgical History History of herniorrhaphy Hx of cholecystectomy Hx of appendectomy Social History housing: assisted living facility Smoking Status: Former smoker alcohol intake: never substance use type: does not use ROS ROS Narrative Admission Review of Systems: CONSTITUTIONAL: No weight loss, + fever, chills, weakness or fatigue. HEENT: Eyes: No visual loss, blurred vision, double vision or yellow sclerae. Ears, Nose, Throat: No hearing loss, sneezing, congestion, runny nose or sore throat. SKIN: No rash or itching, lesions, wounds. CARDIOVASCULAR: No chest pain, chest pressure or chest discomfort, palpitations, edema, orthopnea, syncopal events. RESPIRATORY: No shortness of breath, cough or sputum, wheezing, hemoptysis. GASTROINTESTINAL: + anorexia, nausea, emesis, diarrhea. No abdominal pain, melena, BRBPR. GENITOURINARY: + Suprapubic TTP, BPH w/ chronic urinary frequency. No dysuria, urgency or retention. NEUROLOGICAL: + Debility, requires wheelchair chronically, No headache, dizziness, syncope, paralysis, ataxia, numbness or tingling in the extremities, focal weakness, change in bowel or bladder control, seizure. MUSCULOSKELETAL: + muscle, back pain, joint pain or stiffness. HEMATOLOGIC: + Easy bleeding or bruising. LYMPHATICS: No enlarged nodes. No history of splenectomy. PSYCHIATRIC: No history of depression or anxiety. ENDOCRINOLOGIC: No reports of sweating, cold or heat intolerance. No polyuria or polydipsia. ALLERGIES: + history of allergic rhinitis. Vital Signs Vital Signs Vital Signs: 11/08/23 01:04 11/08/23 01:12 11/08/23 01:12 Temperature 101.0 F H 101.0 F H Temperature Source Oral Oral Pulse Rate 92 101 H Respiratory Rate 18 20 H Respiratory Effort Normal Non-Labored Respiratory Pattern Normal Blood Pressure 140/77 H 140/77 H Blood Pressure Mean 98 98 Pulse Ox 95 96 Oxygen Delivery Method Room Air Room Air 11/08/23 02:12 Temperature 99.7 F H Temperature Source Oral Pulse Rate 88 Respiratory Rate 20 H Respiratory Effort Respiratory Pattern Blood Pressure 129/62 H Blood Pressure Mean 84 Pulse Ox 94 Oxygen Delivery Method Room Air Weight Weight: 304 lb 3.806 oz Body Mass Index (BMI) 39.0 Physical Exam Narrative Physical Examination: General: Awake, alert, oriented x 3 and cooperative, seated upright in the ED bed in no apparent distress, notes nausea current improved. Skin: Normal color, normal turgor, no icterus, no cyanosis. HEENT: AT/NC, EOMI, PERRLA, mildly dry MM, no carotid bruits or JVD noted; however, thickened neck makes evaluation difficult. Lungs: Mildly diminished, greater bases, mild increased respiratory rate but no distress, appropriate effort, no rales, ronchi or wheezing. Heart: Improved, currently regular rate with regular rhythm; no gallop, rub audible. Abdomen: Soft, obese, NTTP, no obvious distention, mildly hyperactive BS, no appreciated HSM. Extremities: No cyanosis, clubbing, or edema. Neurological: Patient awake, alert, oriented as noted, cognitive function intact; pupils equally reactive to light and accommodation, cranial nerves grossly normal, moving all 4 extremities, no focal deficits, strength severely globally decreased secondary to acute presentation as well as underlying chronic debility, chronically wheelchair-bound. Psychiatric: Affect appears fatigued, no acute evidence of depressive or anxiety feelings. Results Lab / Micro Data 11/08/23 01:11 11/08/23 01:11 Labs: Laboratory Results - last 24 hr 11/08/23 01:11: WBC 9.0, RBC 4.79, Hgb 14.6, Hct 42.0, MCV 87.7, MCH 30.5, MCHC 34.8, RDW Std Deviation 38.6, RDW Coeff of Gage 12.0, Plt Count 110 L, MPV 10.1, Immature Gran % (Auto) 0.400, Neut % (Auto) 88.8 H, Lymph % (Auto) 7.1 L, [place] % (Auto) 2.8, Eos % (Auto) 0.7, Baso % (Auto) 0.2, Absolute Neuts (auto) 8.0 H, Absolute Lymphs (auto) 0.64 L, Nucleated RBC % 0, Sodium 135 L, Potassium 3.8, Chloride 102, Carbon Dioxide 23.0, Anion Gap 10, BUN 10, Creatinine 0.92, Estim Creat Clear Calc 104.14, Est GFR (MDRD) Af Amer 104, Est GFR (MDRD) Non-Af 86, BUN/Creatinine Ratio 10.9, Glucose 142 H, Lactic Acid 2.4 H*, Calcium 8.9 11/08/23 01:58: Urine Color Yellow, Urine Clarity Sl. Cloudy, Urine pH 6.0, Ur Specific [place] 1.020, Urine Protein 15 H, Urine Glucose (UA) Normal, Urine Ketones 5 H, Urine Occult Blood 25 H, Urine Nitrite Positive H, Urine Bilirubin Negative, Urine Urobilinogen Normal, Ur Leukocyte Esterase 500 H, Urine RBC 0-5 SEEN, Urine WBC 25-50 SEEN, Ur Squamous Epith Cells 0 SEEN, Urine Bacteria 3+, Urine Mucus 0 SEEN Micro: Microbiology 11/08/23 01:27 Mucosa - Nose SARS-CoV-2, Influenza & RSV (PCR) - Final Imaging Radiology Impression Chest X-Ray 11/08/23 01:19 IMPRESSION: Bibasilar atelectasis versus infiltrate, left greater than right Electronically Signed: Jackson Leroy MD at 2:11 EDT , Assessment & Plan Assessment/Plan (1) Urinary tract infection: (2) Pneumonia: (3) Acidosis, lactic: PLAN: Plan The patient is a 73 y/o M w/ PMHx: Chronic thrombocytopenia, Former Tobacco use, HTN, HLD, BPH, Diabetes mellitus type II, COPD, CKD per GFR trending, Obesity, Hx COVID illness who presents to the [facility] ED on 11/08/23 with history of onset over last 24 hours nausea, emesis and loose stools which has been constant with inability to keep anything down with dry heaving with onset of fever 101 at home with no recent chest discomfort or marked URI type symptoms nor any dyspnea nor urinary complaints but given ongoing GI symptoms prompted eventual ED evaluation. #1. Acute Complicated UTI as well as incidentally noted Bilateral Infiltrates w/ Questionable atelectasis versus infiltrate, possible pneumonia, community-acquired however no recent pulmonary symptom complaints of note with mild lactic acidosis (although patient is mildly tachypneic, tachycardic and febrile with mild lactic acidosis there is no evidence of endorgan damage or change thus not consistent with sepsis): Will admit to MS, if necessary will utilize supplemental oxygen however upon presentation saturating appropriately on room air, will maintain on ATC budesonide therapy, PRN albuterol, maintained on IV Rocephin and IV azithromycin with de-escalation off azithromycin if further evaluation able to rule out pneumonia, HOB, IS parameters w/ pending sputum cultures, full respiratory viral panel and urine antigens. Bld cx x 2 obtained in the ED. Urine culture pending per ED. Also be cautious given diarrhea and GI complaints we will obtain C. difficile and enteric to be cautious. PT/OT/CM consultation for discharge planning. #2. Hypertension: Continue home regimen including isosorbide, losartan with hold parameters as needed, PRN hydralazine. #3. Hyperlipidemia: Continue home statin and icosapent regimen. #4. Diabetes mellitus type II: Hold oral home regimen, ADA diet once nausea/emesis abating, accu checks w/ ISS. #5. Chronic thrombocytopenia: Admission platelet 110, prior baseline similar, we will continue to trend CBC and cautiously utilize chemoprophylaxis and antiplatelet therapy. #6. Chronic COPD with allergic rhinitis: Not on any chronic regimen per current list, will maintain on ATC budesonide therapy, PRN albuterol, HOB, IS parameters, continue patient home cetirizine and montelukast regimen. #7. Chronic Kidney Disease Stage II per GFR trending: Admission BUN/creatinine 10/0.92, GFR 86 which is similar to previous, baseline creatinine noted prior primarily 0.9-1.0, stable, continue to trend CMP. #8. Obesity: Weight loss and lifestyle changes encouraged. #9. Former tobacco use: Encourage continued tobacco cessation. #10. BPH: Will continue patient on Flomax regimen. #11. DVT prophylaxis: Lovenox. #12. CODE STATUS: Patient denies having healthcare power of contracts attorney or living will and at this time states he does not wish to give a name of someone who may be able to make decisions for him. Discussed CODE status at length including difference between FULL code, DNR-CCA and DNR-CC status. Following discussions about the differences in these status, requested DNR-CCA, no intubation. Advanced Care Planning Face to Face Time: 16 minutes. Charges/Coding Visit Charges Inpatient E&M: 52354 Init Hosp L3 Procedures Hospitalists Procedures: 68828 Advncd Care Plan 30 Min
[2023-11-08] MEDS: Ceftriaxone 2 GM in 0.9% Normal Saline (50mL MB+) 50 ML IV (02:36)
[2023-11-08] MEDS: Azithromycin 500 MG in Dextrose 5%-Water (250mL Bag) 250 ML 250 MG IV (04:05)
[2023-11-08] MEDS: 0.9% Normal Saline (1000mL) 1,000 ML 100 ML IV (05:11)
[2023-11-08 05:27] LABS: Reflex Lactate? Y
[2023-11-08 06:16] LABS: Absolute Lymphocyte Count 0.66 X10^3/uL (0.83-4.51); Absolute Neutrophil Count 8.7 X10^3/uL (2.0-7.7); Basophil# 0.03 X10^3/uL; Basophil% 0.3 % (0-1); Eosinophil# 0.03 X10^3/uL; Eosinophils% 0.3 % (0-5); Hematocrit 40.5 % (40-54); Hemoglobin 13.7 g/dL (13.0-16.5); Lymphocyte # 0.66 X10^3/ul (0.83-4.51); Lymphocyte % 6.8 % (19-41); Mean Corp Hgb Conc 33.8 g/dL (32-36); Mean Corpuscular Hgb 30.2 pg (27.0-32.0); Mean Corpuscular Volume 89.4 fL (80-94); Mean Platelet Vol. 9.3 fl (6.2-12.0); Monocyte# 0.28 X10^3/uL; Monocyte% 2.9 % (0-10); NRBC Flagged by Analyzer 0 % (0-5); Neutrophil # 8.69 X10^3/uL (2.7-7.7); Neutrophil % 89.3 % (47-70); Platelet Count 107 K/mm3 (150-450); RBC Distribution Width SD 38.7 fl (35.1-43.9); Red Blood Count 4.53 M/mm3 (4.6-6.2); White Blood Count 9.7 K/mm3 (4.4-11.0)
[2023-11-08] MEDS: Insulin Lispro 100 UNIT/ML INSULN.PEN SC ×3 (06:29→16:25)
[2023-11-08 06:47] LABS: AST(SGOT) 16 U/L (15-37); Alanine Aminotransfer ALT/SGPT 22 U/L (16-61); Albumin, Serum 3.1 g/dL (3.2-5.0); Alkaline Phosphatase 82 U/L (45-117); Anion Gap 6 (5-15); BUN 9 mg/dL (7-18); BUN/Creat Ratio 8.9 RATIO (10-20); Calcium,Total 8.3 mg/dL (8.5-10.1); Chloride 103 mmol/L (98-107); Creatinine, Serum 1.01 mg/dL (0.70-1.30); EST Glomerular Filtration Rate 77 mL/min (>60); Est Glom Filt Rate - Afr Amer 93 mL/min (>60); Estimated Creatinine Clearance 87.41 ml/min; Globulin 3.1 g/dL (2.2-4.2); Glucose 179 mg/dL (74-106); Potassium 4.3 mmol/L (3.5-5.1); Protein, Total 6.2 g/dL (6.4-8.2); Sodium Level 135 mmol/L (136-145)
[2023-11-08 06:54] LABS: Lactic Acid 2.2 mmol/L (0.4-1.9)
[2023-11-08 07:08] LABS: M R Staph aureus DNA By PCR Negative (Negative); Probe Check PASS; Specimen Processing Control PASS
[2023-11-08 07:16] LABS: Bedside Glucose 153 mg/dL (74-106)
[2023-11-08] MEDS: Budesonide Respules 0.5 MG/2 ML AMPUL.NEB. INHALATION ×2 (09:21→20:15)
[2023-11-08] MEDS: Clopidogrel Bisulfate 75 MG Tablet PO (10:39)
[2023-11-08] MEDS: Isosorbide Mononitrate 30 MG Tablet PO (10:39)
[2023-11-08] MEDS: Enoxaparin 40 MG/0.4 ML Syringe SC (10:39)
[2023-11-08] MEDS: Tamsulosin HCl 0.4 MG Capsule 0.8 MG PO (10:39)
[2023-11-08] MEDS: Losartan Potassium 25 MG Tablet PO (10:39)
[2023-11-08] MEDS: Nystatin Powder 15gm Bottle 1 APPLIC TOPICAL ×2 (10:40→20:03)
[2023-11-08] MEDS: 0.9% Normal Saline (1000mL) 1,000 ML 500 ML IV (10:40)
[2023-11-08] MEDS: guaiFENesin/D-Methorphan TAB.SR.12H 2 TABLET PO ×2 (13:09→20:03)
[2023-11-08] MEDS: Phenazopyridine 95 MG Tablet 190 MG PO ×2 (13:09→20:02)
[2023-11-08 13:31] LABS: Bedside Glucose 168 mg/dL (74-106)
--- NOTE | 2023-11-08 13:33 | CHAPLAIN ---
Type of Pastoral Visit _x__ Initial Visit ___ Follow-up Visit ___ On-call Visit ___ General Patient Visit ___ Spiritual Assessment ___ Family Conference ___ Bereavement ___ Rapid Response ___ Code Blue ___ Other (describe below) Pastoral Care Referral From _x__ Patient ___ Family ___ Nurse ___ Physician ___ Collar Closer Lockstitch ___ Launching Pad Mechanic ___ Other (describe below) Sacrament/Intervention _x__ Active listening ___ Anointing ___ Mosque ___ Bereavement ___ Communion _x__ Zeny exploration ___ ___ Life review _x__ Prayer ___ Reconciliation ___ Sacrament of Sick _x__ Supportive presence ___ Wedding ___ Other (describe below) Pastoral Comments patient acknowledged his feelings of being sick; pt identifies self as a Mormonism who prays and talks to the Lord; pt welcomes prayer and presence
--- NOTE | 2023-11-08 15:49 | CASEMGMT ---
Social Work Pt is admitted from [facility] living. SW met with pt and introduced self and role of SW. Pt confirms he lives in the assisted living at [facility] but states he is independent with dressing, bathing, and cooking. Pt states he is able to transfer independently, but does use the wheelchair for mobilizatoin throughout apartment and facility. Pt has a palliative care nurse practitioner through [facility], Sarah Jefferson. Pt states he uses [facility] for transportation and will need a ride arranged at time of discharge. Pt plans to return to [facility] at time of dc. [place] hospital administrative assistant to send updates to [facility]. Phone call to Sarah Jefferson at [facility] and notified of pt hospitalization. Plan: Return to [facility] when medically ready JACEY [place]
--- NOTE | 2023-11-08 15:58 | CASEMGMT ---
Discharge Planning Updates faxed to [facility]. Fax confirmation rec'd. Cynthia Tran DC Planning Asst.
--- NOTE | 2023-11-08 16:13 | US_ITS ---
STUDY: RENAL ULTRASOUND - COMPLETE REASON FOR EXAM: Male, 73 years old. Complicated UTI, perineal pain TECHNIQUE: Ultrasound evaluation of the kidneys was performed with real-time and static tierney-scale imaging. COMPARISON: None. FINDINGS: RIGHT KIDNEY: Normal location of the right kidney, which is normal in size. The right kidney measures 11.6 cm. There is a normal cortex of the right kidney. The renal cortex measures 1.9 cm. There is 2.2 cm cyst. There are no right renal calculi. There is no right hydronephrosis. DISTAL RIGHT URETER: There is non-visualization of the distal right ureter. There is no demonstrated right ureterovesical junction calculus. There is a visualized right ureteral jet. LEFT KIDNEY: Normal location of the left kidney, which is normal in size. The left kidney measures 12.3 cm. There is a normal cortex of the left kidney. The renal cortex measures 1.4 cm. There is no left renal mass or cyst. There are no left renal calculi. There is no left hydronephrosis. DISTAL LEFT URETER: There is non-visualization of the distal left ureter. There is no demonstrated left ureterovesical junction calculus. There is a visualized left ureteral jet. BLADDER: The distended urinary bladder has a volume of 198 ml. There is a normal wall thickness of the distended urinary bladder. There is no demonstrated mass within the urinary bladder. There are no demonstrated bladder calculi. There is an enlarged prostate gland measuring 5.3 x 5.0 x 4.8 cm. US/Kidney and Bladder IMPRESSION: Right renal cyst. No hydronephrosis. Enlarged prostate. Electronically Signed: Stepan Potts MD at 18:20 EDT ,
--- NOTE | 2023-11-08 16:16 | PN.HOSP_ITS ---
Reason for Visit Reason for Visit: Diagnoses Acidosis, unspecified (11/08/23) Pneumonia, unspecified organism (11/08/23) Urinary tract infection, site not specified (11/08/23) Objective Data Objective Data Vital Signs: Vital Signs Temp Pulse Resp BP Pulse Ox O2 Del Method 98.4 F 80 16 121/77 H 94 Room Air 11/08/23 04:58 11/08/23 04:58 11/08/23 04:58 11/08/23 04:58 11/08/23 05:34 11/08/23 05:34 Oxygen Delivery Method Room Air Weight: 258 lb 15.985 oz Body Mass Index (BMI) 33.2 Intake & Output: Intake and Output for Last 24 Hours 11/06/23 11/07/23 11/08/23 23:59 23:59 23:59 Intake Total 1305 / 1305 Balance 1305 / 1305 Lab / Micro Data 11/08/23 06:06 11/08/23 06:06 Labs: Laboratory Results - last 24 hr 11/08/23 01:11: WBC 9.0, RBC 4.79, Hgb 14.6, Hct 42.0, MCV 87.7, MCH 30.5, MCHC 34.8, RDW Std Deviation 38.6, RDW Coeff of Gage 12.0, Plt Count 110 L, MPV 10.1, Immature Gran % (Auto) 0.400, Neut % (Auto) 88.8 H, Lymph % (Auto) 7.1 L, Fisher % (Auto) 2.8, Eos % (Auto) 0.7, Baso % (Auto) 0.2, Absolute Neuts (auto) 8.0 H, A bsolute Lymphs (auto) 0.64 L, Nucleated RBC % 0, Sodium 135 L, Potassium 3.8, Chloride 102, Carbon Dioxide 23.0, Anion Gap 10, BUN 10, Creatinine 0.92, Estim Creat Clear Calc 104.14, Est GFR (MDRD) Af Amer 104, Est GFR (MDRD) Non-Af 86, BUN/Creatinine Ratio 10.9, Glucose 142 H, Lactic Acid 2.4 H*, Calcium 8.9 11/08/23 01:58: Urine Color Yellow, Urine Clarity Sl. Cloudy, Urine pH 6.0, Ur Specific [place] 1.020, Urine Protein 15 H, Urine Glucose (UA) Normal, Urine Ketones 5 H, Urine Occult Blood 25 H, Urine Nitrite Positive H, Urine Bilirubin Negative, Urine Urobilinogen Normal, Ur Leukocyte Esterase 500 H, Urine RBC 0-5 SEEN, Urine WBC 25-50 SEEN, Ur Squamous Epith Cells 0 SEEN, Urine Bacteria 3+, Urine Mucus 0 SEEN 11/08/23 05:05: MRSA (PCR) Negative 11/08/23 06:06: WBC 9.7, RBC 4.53 L, Hgb 13.7, Hct 40.5, MCV 89.4, MCH 30.2, MCHC 33.8, RDW Std Deviation 38.7, RDW Coeff of Gage 12.0, Plt Count 107 L, MPV 9.3, Immature Gran % (Auto) 0.400, Neut % (Auto) 89.3 H, Lymph % (Auto) 6.8 L, Fisher % (Auto) 2.9, Eos % (Auto) 0.3, Baso % (Auto) 0.3, Absolute Neuts (auto) 8.7 H, Absolute Lymphs (auto) 0.66 L, Nucleated RBC % 0, Sodium 135 L, Potassium 4.3, Chloride 103, Carbon Dioxide 26.0, Anion Gap 6, BUN 9, Creatinine 1.01, Estim Creat Clear Calc 87.41, Est GFR (MDRD) Af Amer 93, Est GFR (MDRD) Non-Af 77, BUN/Creatinine Ratio 8.9 L, Glucose 179 H, Lactic Acid 2.2 H*, Calcium 8.3 L , Total Bilirubin 3.40 H, AST 16, ALT 22, Alkaline Phosphatase 82, Total Protein 6.2 L, Albumin 3.1 L, Globulin 3.1, Albumin/Globulin Ratio 1.0 11/08/23 06:26: POC Glucose 153 H Micro: Microbiology 11/08/23 01:58 Urine Catheter - Catheter Legionella Antigen - Final 11/08/23 01:58 Urine Catheter - Catheter Streptococcus pneumoniae Antigen (M - Final 11/08/23 01:27 Mucosa - Nose SARS-CoV-2, Influenza & RSV (PCR) - Final Radiography Diagnostic Testing: Radiology Impression Chest X-Ray 11/08/23 01:19 IMPRESSION: Bibasilar atelectasis versus infiltrate, left greater than right Electronically Signed: Jackson Leroy MD at 2:11 EDT , Physical Exam Narrative Seen and examined. Patient looked in distress due to pain in perineal region, penis/scrotal, could not specify exact site. No fever. Patient is stated that he could not pee. Bladder scan showed 150 mL. Distress. Straight cath ordered. He denies history of fever, chest pain, shortness of breath, cough or other URI symptoms. Nursing staff send patient has mild tachycardia 103 and tachypnea 30 department but does not have focal symptoms of cough. It is unclear whether patient has psychiatric/mental illness. Looks very anxious. Physical exam General: Alert, Oriented x3, Cooperative HEENT: Atraumatic, PERRLA, EOMI, Normocephalic Oral: No Gingival or Mucosal Lesions/ Ulcerations Neck: Supple, No JVD, Negative Carotid Bruits Chest wall/Lungs: Air entry diminished in bilateral lung bases. No crepitation/rhonchi. Tachypneic Cardiovascular: Mild sinus tachycardia, Normal S1, Normal S2, No M/G/R Abdomen: Bowel Sounds Present, Soft, Non Tender, Non-Distended : Urinary retention. Dysuria present. Possible urinary spasm. No renal angle tenderness no suprapubic tenderness. Extremities: No edema, Capillary Refill Less than 3 Seconds Skin: No rashes, No breakdown Musculoskeletal: No Tenderness to Palpation of Joints or Extremities Neurological: Cranial nerves II-XII grossly intact, DTR 2+/4. No acute focal neurological deficit. Psych/Mental Status: Normal Affect, Appropriate. Assessment & Plan Assessment/Plan (1) Urinary tract infection: (2) Pneumonia: (3) Acidosis, lactic: PLAN: Plan The patient is a 73 y/o M came to ED with nausea, vomiting , loose stool started 1 day before admission. Patient not able to keep anything down the stomach. Also having dry heaving. Fever 101 Fahrenheit at home. Denied chest pain or cough, shortness of breath. Warren like a spasm on perineal region with burning micturition. #1. Acute complicated UTI. Patient has SIRS criteria with mild tachycardia, tachypnea, low-grade fever Tmax 101 Fahrenheit. Lactic acidosis but no cough or shortness of breath. No evidence of endorgan damage and therefore not consistent with sepsis. Chest x-ray shows bilateral infiltrate possible atelectasis. Patient empirically on IV ceftriaxone and azithromycin. Urine culture pending. Infectious workup ordered. Patient also had diarrhea and enteric bacteriology panel and CD4 ordered but on the floor did not had bowel movement therefore not collected yet Bladder scan. Straight cath was done. Urine culture and blood cultures are pending. SIRS criteria, may be possible from hypovolemia. Normal saline 500 mL bolus given and then IV fluid normal saline +20 mEq KCl 125 mill per hour ordered. Monitor intake and output. Patient on Flomax and Azo. Urologist consulted. Renal and bladder ultrasound ordered. Prostate ultrasound ordered. #2. Hypertension: Continue home regimen including isosorbide, losartan with hold parameters as needed, PRN hydralazine. Blood pressure is on lower side. Hold antihypertensive medications. #3. Hyperlipidemia: Continue home statin and icosapent regimen. #4. Diabetes mellitus type II: Hold oral home regimen, ADA diet once nausea/emesis abating, accu checks w/ ISS. #5. Chronic thrombocytopenia: Admission platelet 110, prior baseline similar, we will continue to trend CBC and cautiously utilize chemoprophylaxis and antiplatelet therapy. #6. Chronic COPD with allergic rhinitis: Not on any chronic regimen per current list, will maintain on ATC budesonide therapy, PRN albuterol, HOB, IS parameters, continue patient home cetirizine and montelukast regimen. #7. Chronic Kidney Disease Stage II : Admission BUN/creatinine 10/0.92, GFR 86 which is similar to previous, baseline creatinine noted prior primarily 0.9-1.0, stable, monitor kidney #8. Obesity: Weight loss and lifestyle changes encouraged. #9. Former tobacco use: Encourage continued tobacco cessation. #10. BPH: Will continue patient on Flomax regimen. #11. DVT prophylaxis: Lovenox. #12. CODE STATUS: Patient denies having healthcare power of commercial attorney or living will and at this time states he does not wish to give a name of someone who may be able to make decisions for him. Discussed CODE status at length including difference between FULL code, DNR-CCA and DNR-CC status. Following discussions about the differences in these status, requested DNR-CCA, no intubation. Clinical Impression(s) from Imaging Studies Chest X-Ray 11/08/23 01:19 IMPRESSION: Bibasilar atelectasis versus infiltrate, left greater than right Electronically Signed: Jackson Leroy MD at 2:11 EDT , Charges/Coding Visit Charges Inpatient E&M: 97885 Subs Hosp L2
[2023-11-08] MEDS: KCL 20MEQ in 0.9% NS 20 MEQ/1,000 ML IV.SOLN. 125 MEQ IV (16:20)
[2023-11-08 16:39] LABS: Bedside Glucose 151 mg/dL (74-106)
--- NOTE | 2023-11-08 16:44 | CON.PCM.UR_ITS ---
Assessment & Plan Assessment/Plan (1) Acidosis, lactic: (2) Urinary tract infection: PLAN: Comes in for urinary tract infection difficulty with urination recommend we get cross-sectional imaging and recommend we get a CT scan of the abdomen pelvis with and without IV contrast to evaluate the source of the urinary tract infection continue with medications as prescribed. HPI Consult Data Date of Consult: 11/08/23 HPI Narrative Reason for Consultation: Difficulty with urination HPI Narrative: PILAR MARTINEZ, is a 73 M who presents to the hospital with acidosis and urinary tract infection some difficulty with urination urine cultures are pending he has been complaining of some penis pain and soreness with going to the bathroom they did straight cath and Knight 150 cc. No gross hematuria. [facility] Medical History Adult failure to thrive Obesity Allergic rhinitis CKD (chronic kidney disease), stage II Former tobacco use COPD (chronic obstructive pulmonary disease) BPH (benign prostatic hyperplasia) Hyperlipemia HTN (hypertension) Diabetes Home Medications ?Medication ?Instructions ?Recorded ?Last Taken ?Type atorvastatin 80 mg tablet 80 mg PO QHS cholesterol 11/08/22 Unknown History cetirizine 5 mg tablet 5 mg PO QHS allergies 11/08/22 Unknown History cholecalciferol (vitamin D3) 125 5,000 unit PO QWEEK vitamin 11/08/22 Unknown History mcg (5,000 unit) tablet (Vitamin D3) clopidogrel 75 mg tablet 75 mg PO DAILY anti platelet 11/08/22 11/08/22 History icosapent ethyl 1 gram capsule 2 g PO BID triglycerides 11/08/22 Unknown History (Vascepa) isosorbide mononitrate 30 mg 30 mg PO DAILY heart 11/08/22 Unknown History tablet,extended release 24 hr linagliptin 5 mg tablet (Tradjenta) 5 mg PO DAILY diabetes 11/08/22 Unknown History losartan 25 mg tablet 25 mg PO DAILY blood pressure 11/08/22 Unknown History melatonin 5 mg tablet 5 mg PO QHS sleep 11/08/22 Unknown History metformin 500 mg tablet 500 mg PO BID diabetes 11/08/22 Unknown History montelukast 10 mg tablet 10 mg PO QHS allergies 11/08/22 Unknown History polyethylene glycol 3350 17 17 g PO .EVERY OTHER DAY 11/08/22 Unknown History gram/dose oral powder (Gavilax) constipation tamsulosin 0.4 mg capsule 0.8 mg PO DAILY prostate 11/08/22 Unknown History Allergy/AdvReac Type Severity Reaction Status Date / Time No Known Allergies Allergy Verified 11/08/23 01:04 Family History Mother Diabetes Cancer Father Diabetes Cancer Surgical History History of herniorrhaphy Hx of cholecystectomy Hx of appendectomy Social History housing: assisted living facility Smoking Status: Former smoker alcohol intake: never substance use type: does not use ROS Constitutional Constitutional: Denies chills, fever(s) or malaise Eyes Eyes: Denies blurry vision or change in vision ENT HEENT: Reports none Cardiovascular Cardiovascular: Denies chest pain or palpitations Respiratory/Chest Respiratory/Chest: Denies cough or shortness of breath with exertion Gastrointestinal Gastrointestinal: Denies abdominal pain, constipation or diarrhea Musculoskeletal Musculoskeletal: Denies back pain, joint stiffness or joint swelling Integumentary Integumentary: Denies dry skin, jaundice, lesions or rash Neurologic Neurologic: Denies confusion, syncope or weakness Psychiatric Psychiatric: Reports none; Denies anxiety or depression Endocrine Endocrinology: Denies excessive sweating, fatigue or flushing Hematologic/Lymphatic Hematologic/Lymphatic: Denies anemia, easy bleeding or easy bruising Lab / Micro Data 11/08/23 06:06 11/08/23 06:06 Labs: Laboratory Results - last 24 hr 11/08/23 01:11: WBC 9.0, RBC 4.79, Hgb 14.6, Hct 42.0, MCV 87.7, MCH 30.5, MCHC 34.8, RDW Std Deviation 38.6, RDW Coeff of Gage 12.0, Plt Count 110 L, MPV 10.1, Immature Gran % (Auto) 0.400, Neut % (Auto) 88.8 H, Lymph % (Auto) 7.1 L, [place] % (Auto) 2.8, Eos % (Auto) 0.7, Baso % (Auto) 0.2, Absolute Neuts (auto) 8.0 H, A bsolute Lymphs (auto) 0.64 L, Nucleated RBC % 0, Sodium 135 L, Potassium 3.8, Chloride 102, Carbon Dioxide 23.0, Anion Gap 10, BUN 10, Creatinine 0.92, Estim Creat Clear Calc 104.14, Est GFR (MDRD) Af Amer 104, Est GFR (MDRD) Non-Af 86, BUN/Creatinine Ratio 10.9, Glucose 142 H, Lactic Acid 2.4 H*, Calcium 8.9 11/08/23 01:58: Urine Color Yellow, Urine Clarity Sl. Cloudy, Urine pH 6.0, Ur Specific [place] 1.020, Urine Protein 15 H, Urine Glucose (UA) Normal, Urine Ketones 5 H, Urine Occult Blood 25 H, Urine Nitrite Positive H, Urine Bilirubin Negative, Urine Urobilinogen Normal, Ur Leukocyte Esterase 500 H, Urine RBC 0-5 SEEN, Urine WBC 25-50 SEEN, Ur Squamous Epith Cells 0 SEEN, Urine Bacteria 3+, Urine Mucus 0 SEEN 11/08/23 05:05: MRSA (PCR) Negative 11/08/23 06:06: WBC 9.7, RBC 4.53 L, Hgb 13.7, Hct 40.5, MCV 89.4, MCH 30.2, MCHC 33.8, RDW Std Deviation 38.7, RDW Coeff of Gage 12.0, Plt Count 107 L, MPV 9.3, Immature Gran % (Auto) 0.400, Neut % (Auto) 89.3 H, Lymph % (Auto) 6.8 L, [place] % (Auto) 2.9, Eos % (Auto) 0.3, Baso % (Auto) 0.3, Absolute Neuts (auto) 8.7 H, Absolute Lymphs (auto) 0.66 L, Nucleated RBC % 0, Sodium 135 L, Potassium 4.3, Chloride 103, Carbon Dioxide 26.0, Anion Gap 6, BUN 9, Creatinine 1.01, Estim Creat Clear Calc 87.41, Est GFR (MDRD) Af Amer 93, Est GFR (MDRD) Non-Af 77, BUN/Creatinine Ratio 8.9 L, Glucose 179 H, Lactic Acid 2.2 H*, Calcium 8.3 L , Total Bilirubin 3.40 H, AST 16, ALT 22, Alkaline Phosphatase 82, Total Protein 6.2 L, Albumin 3.1 L, Globulin 3.1, Albumin/Globulin Ratio 1.0 11/08/23 06:26: POC Glucose 153 H 11/08/23 13:07: POC Glucose 168 H 11/08/23 16:19: POC Glucose 151 H Micro: Microbiology 11/08/23 05:10 Mucosa - Nasopharyngeal Respiratory Panel (PCR) - Final 11/08/23 01:58 Urine Catheter - Catheter Legionella Antigen - Final 11/08/23 01:58 Urine Catheter - Catheter Streptococcus pneumoniae Antigen (M - Final 11/08/23 01:27 Mucosa - Nose SARS-CoV-2, Influenza & RSV (PCR) - Final Imaging Radiology Impression Chest X-Ray 11/08/23 01:19 IMPRESSION: Bibasilar atelectasis versus infiltrate, left greater than right Electronically Signed: Jackson Leroy MD at 2:11 EDT ,
--- NOTE | 2023-11-08 17:11 | CT_ITS ---
STUDY: CT ABDOMEN AND PELVIS WITH CONTRAST REASON FOR EXAM: Male, 73 years old. UTI, dysuria RADIATION DOSAGE (If Supplied By Facility): CTDIvol = ( 15.37 ) mGy, DLP = ( 1499.80 ) mGycm TECHNIQUE: Transaxial images were obtained from the dome of the diaphragm to the symphysis pubis without oral contrast. IV 100mL Isovue-300 was administered. Sagittal and coronal images were reconstructed. Individualized dose optimization techniques were used for this CT. COMPARISON: None. FINDINGS: There is right lower lung atelectasis. There are mitral annular and coronary artery calcifications. There is hepatomegaly with diffuse hepatic enlargement. There are surgical clips in the gallbladder fossa consistent with a prior cholecystectomy. There is moderate splenomegaly. Normal pancreas. Normal bilateral adrenal glands. There is 2.6 cm cyst of the right kidney. Normal left kidney. Normal visualized stomach. Normal small intestine. Normal colon. There is moderate stool There is non-visualization of the appendix. There is atherosclerotic calcification of the abdominal aorta, without a demonstrated aneurysm. Normal inferior vena cava. Normal retroperitoneum. There is wall thickening of the urinary bladder. There is enlargement of the prostate gland. There is no free fluid in the abdomen or pelvis. Normal abdominal wall. There is degenerative change of the spine. CT/Abdomen/Pelvis W IV Cont ONLY IMPRESSION: Wall thickening of the urinary bladder. Enlarged prostate gland. No stones or hydronephrosis. Hepatosplenomegaly. Prior cholecystectomy. No biliary dilatation. Electronically Signed: Stepan Potts MD at 18:16 EDT ,
[2023-11-08] MEDS: 0.9% Saline Lock 10 ML Syringe IV (18:15)
[2023-11-08] MEDS: Loratadine 10 MG Tablet PO (20:02)
[2023-11-08] MEDS: Atorvastatin Calcium 80 MG Tablet PO (20:02)
[2023-11-08] MEDS: Montelukast 10 MG Tablet PO (20:02)
[2023-11-08] MEDS: MELATONIN 10 MG TABLET 5 MG PO (20:03)
[2023-11-08] MEDS: Acetaminophen 325 MG Tablet 650 MG PO (20:07)
--- NOTE | 2023-11-08 20:46 | PCM.HOSP.N ---
Hospitalist Note Preliminary bld Cx with 1 anaerobic bottle Gram stain with gram-positive cocci noted to be in clusters. Will at this time given this finding and IV vancomycin but continue to monitor as certainly could be contaminant if this is the only growth noted.
[2023-11-08] MEDS: Vancomycin HCl 2,000 MG in 0.9% Normal Saline (500mL Bag) 500 ML 250 MG IV (21:20)
[2023-11-08 21:27] LABS: Bedside Glucose 133 mg/dL (74-106)
--- NOTE | 2023-11-09 01:34 | PCM.RX.CS ---
Consult Antibiotic Management Pharmacy has been consulted to manage selected antibiotic: Vancomycin Type of Intervention Type of Consult: New start Suspected Infection Suspected Infection: Bacteremia Prior Doses of Antibiotics Prior Doses of Antibiotics Received/Current Regimen: Vancomycin 2000 mg IV x 1 given 11/08/23 @ 2120 Labs Labs: Sodium 135 mmol/L (136-145) L 11/08/23 06:06 Potassium 4.3 mmol/L (3.5-5.1) 11/08/23 06:06 Chloride 103 mmol/L (98-107) 11/08/23 06:06 Carbon Dioxide 26.0 mmol/L (21.0-32.0) 11/08/23 06:06 Anion Gap 6 (5-15) 11/08/23 06:06 BUN 9 mg/dL (7-18) 11/08/23 06:06 Creatinine 1.01 mg/dL (0.70-1.30) 11/08/23 06:06 Est GFR (MDRD) Af Amer 93 mL/min (>60) 11/08/23 06:06 Est GFR (MDRD) Non-Af 77 mL/min (>60) 11/08/23 06:06 BUN/Creatinine Ratio 8.9 RATIO (10-20) L 11/08/23 06:06 Glucose 179 mg/dL (74-106) H 11/08/23 06:06 Microbiology Microbiology: Microbiology 11/08/23 01:29 Blood Culture (Wb) - Right Forearm Blood Culture - Preliminary 11/08/23 05:10 Mucosa - Nasopharyngeal Respiratory Panel (PCR) - Final 11/08/23 01:58 Urine Catheter - Catheter Legionella Antigen - Final 11/08/23 01:58 Urine Catheter - Catheter Streptococcus pneumoniae Antigen (M - Final 11/08/23 01:27 Mucosa - Nose SARS-CoV-2, Influenza & RSV (PCR) - Final Dosing Weight Weight used for dosin kg Estimated Creatinine Clearance Estimated Creatinine Clearance: ~87 Goal Trough Goal Trough: 15-20 mcg/mL Pharmacy Plan for Drug Dosing Pharmacy Plan for Drug Dosing: Vancomycin 2000 mg IV x 1 loading dose followed by 2000 mg IV Q12H Pharmacy Service will continue to monitor and adjust dosing as required. Follow-Up Labs Follow-Up Labs: Trough: Vancomycin Date/Time Labs Ordered Labs to be done on [date and time ordered]: 11/10/23 @ 7513
[2023-11-09] MEDS: KCL 20MEQ in 0.9% NS 20 MEQ/1,000 ML IV.SOLN. 125 MEQ IV (02:28)
[2023-11-09 02:31] VITALS: BP 127/51; PULSE 82; RESP 18; TEMP 36.4; O2SAT 96
[2023-11-09 06:00] VITALS: BMI 33.2
[2023-11-09 06:46] LABS: Absolute Lymphocyte Count 0.63 X10^3/uL (0.83-4.51); Absolute Neutrophil Count 5.9 X10^3/uL (2.0-7.7); Basophil# 0.02 X10^3/uL; Basophil% 0.3 % (0-1); Eosinophil# 0.05 X10^3/uL; Eosinophils% 0.7 % (0-5); Hematocrit 36.1 % (40-54); Hemoglobin 12.5 g/dL (13.0-16.5); Lymphocyte # 0.63 X10^3/ul (0.83-4.51); Lymphocyte % 8.9 % (19-41); Mean Corp Hgb Conc 34.6 g/dL (32-36); Mean Corpuscular Hgb 30.7 pg (27.0-32.0); Mean Corpuscular Volume 88.7 fL (80-94); Mean Platelet Vol. 9.1 fl (6.2-12.0); Monocyte# 0.44 X10^3/uL; Monocyte% 6.2 % (0-10); NRBC Flagged by Analyzer 0 % (0-5); Neutrophil # 5.93 X10^3/uL (2.7-7.7); Neutrophil % 83.6 % (47-70); Platelet Count 100 K/mm3 (150-450); RBC Distribution Width SD 38.7 fl (35.1-43.9); Red Blood Count 4.07 M/mm3 (4.6-6.2); White Blood Count 7.1 K/mm3 (4.4-11.0)
[2023-11-09] MEDS: Ipratropium/Albuterol Sulfate 3 ML AMPUL.NEB INHALATION (06:56)
[2023-11-09] MEDS: Budesonide Respules 0.5 MG/2 ML AMPUL.NEB. INHALATION ×2 (06:56→19:35)
[2023-11-09 06:57] VITALS: PULSE 75; RESP 20; O2SAT 93
[2023-11-09 07:02] VITALS: BP 120/61; PULSE 89; RESP 20; TEMP 37.3; O2SAT 93
[2023-11-09] MEDS: Phenazopyridine 95 MG Tablet 190 MG PO ×3 (07:09→21:27)
[2023-11-09 07:19] LABS: Anion Gap 6 (5-15); BUN 11 mg/dL (7-18); BUN/Creat Ratio 14.7 RATIO (10-20); Calcium,Total 7.6 mg/dL (8.5-10.1); Chloride 105 mmol/L (98-107); Creatinine, Serum 0.75 mg/dL (0.70-1.30); EST Glomerular Filtration Rate 108 mL/min (>60); Est Glom Filt Rate - Afr Amer 131 mL/min (>60); Estimated Creatinine Clearance 110.36 ml/min; Glucose 132 mg/dL (74-106); Potassium 3.8 mmol/L (3.5-5.1); Sodium Level 135 mmol/L (136-145)
[2023-11-09 07:29] LABS: Bedside Glucose 115 mg/dL (74-106)
[2023-11-09 09:00] VITALS: BP 105/76; PULSE 76; RESP 18; TEMP 37.2; O2SAT 95
--- NOTE | 2023-11-09 09:21 | SP.MBSS_ITS ---
Modified Barium Swallow Patient Information Study Date: 11/09/23 Study Time: 09:15 Direct Billable Minutes: 120 Total Minutes procedure & reportin Diagnosis: PNA J18.9 Referring Physician: Mark Anthony Guzman Reason for Referral: Objectively assess swallow function, assess risk for aspiration, and determine recommendations for least restrictive diet textures and compensatory strategies to improve safety of swallow. Medical History: Patient presented to [facility] ED on 11/08/23 with history of onset over last 24 hours nausea, emesis, and loose stools which has been constant with inability to keep any food/drink down. Patient also had fever of 101 at home. Chest x-ray with bilateral atelectasis versus infiltrate, left greater than right. COVID/influenza/RSV negative. Patient was admitted for management of UTI, PNA, and lactic acidosis. He was initially placed on clear liquids due to N/V/D. He was then made NPO by RN due to concerns for choking/aspiration on thin liquids. He was referred for ST consult for dysphagia evaluation. BSE completed 11/23, which recommended NPO with sips and chips supervised after oral care and meds whole in . Patient had coughing with thin liquids, most notably ice water via cup. CYBER INTELLIGENCE ANALYST recommended MBSS to further assess concerns for aspiration and to determine recommendations for LRD textures. PMH: Adult failure to thrive, Obesity, Allergic rhinitis, CKD stage II, Former tobacco use, COPD, BPH (benign prostatic hyperplasia), HLD, HTN, Diabetes, COVID, Chronic thrombocytopenia, Former Tobacco use. Current Diet Ordered: NPO - sips and chips Dentition: Natural Teeth, Decay and Missing Teeth Comment: Patient had difficulty following commands for chin tuck. He needed min-moderate cues for following through with keeping bolus size small. Penetration-Aspiration Scale Penetration-Aspiration Scale: OBJECTIVE ASSESSMENT OF SWALLOW FUNCTION (QUANTITATIVE ? PER TRIAL): PENETRATION / ASPIRATION SCALE (CLARKE): 1 = does not enter airway 2 = enters airway/above vocal folds/ejected 3 = enters airway/above vocal folds/not ejected 4 = enters airway/contacts vocal folds/ejected 5 = enters airway/contacts vocal folds/not ejected 6 = enters airway/below vocal folds/ejected 7 = enters airway/below vocal folds/not ejected despite effort 8 = enters airway/below vocal folds/no effort VIDEOFLOROSCOPIC SCALE SCORE (CLARKE): Grade I = aspiration of material that has penetrated into the laryngeal vestibule, intact cough reflex Grade II = aspiration < 10 % of the bolus, intact cough reflex Grade III = aspiration of < 10 % of the bolus, reduced cough reflex or aspiration of > 10 % of the bolus, intact cough reflex Grade IV = aspiration of > 10 % of the bolus, reduced cough reflex Penetration-Aspiration Scale Score Thin Liquid via teaspoon: Result: 8= enters airway/below vocal folds/no effort Thin Liquid via teaspoon Trial 2: Result: 2= enter airway/above vocal folds/ejected Thin Liquid via small single sip: cup: Result: 8= enters airway/below vocal folds/no effort Comment: Cued cough and re-swallow - somewhat effective. [place] Thick Liquid via small single sip: cup: Result: 3= enters airways/above vocal folds/not ejected Comment: Cued cough and re-swallow - somewhat effective. [facility] Thick Liquid via small single sip: cup Trial 2: Result: 5= enters airways/contacts vocal folds/not ejected Honey Thick Liquid via small single sip: cup: Result: 1= does not enter airway Pudding via teaspoon: Result: 1= does not enter airway 1/2 Cookie: Result: 1= does not enter airway [facility] Thick Liquid via small single sip: cup Effortful swallow: Result: 1= does not enter airway Thin Liquid via single sip: straw: Result: 1= does not enter airway Thin Liquid via single sip: straw Trial 2: Result: 7= enters airways/below vocal folds/not ejected despite effort Comment: Cued cough and re-swallow - somewhat effective. [place] Thick Liquid via large single sip: cup Effortful swallow: Result: 5= enters airways/contacts vocal folds/not ejected [place] Thick Liquid via small single sip: cup Effortful swallow Trial 2: Result: 1= does not enter airway Comment: SILENT post prandial aspiration of previous trial Thin Liquid via small single sip: cup Trial 2: Result: 3= enters airways/above vocal folds/not ejected Comment: CYBER INTELLIGENCE ANALYST cued him for chin tuck with moderate verbal cues and model with no follow- through [facility] Thick Liquid via small single sip: cup Effortful swallow Trial 3: Result: 1= does not enter airway Comment: Cued cough and re-swallow - somewhat effective. Thin Liquid via small single sip: cup Effortful swallow: Result: 1= does not enter airway Thin Liquid via large single sip: cup Effortful swallow: Result: 5= enters airways/contacts vocal folds/not ejected Oral Phase Labial Seal: Escape beyond mid-chin Tongue Control During Bolus Hold: Posterior escape of greater than half of bolus Bolus Preparation/Mastication: Disorganized chewing/mashing with solid pieces of bolus unchewed (bolus mostly chewed, but some small pieces un-chewed) Bolus Transport/Lingual Motion: Repetitive/disorganized tongue motion Oral Residue: Residue collection on oral structures Pharyngeal Phase Initiation of Pharyngeal Swallow: Bolus head in pyriforms Soft Palate Elevation: Trace column of contrast/air between soft palate and pharyngeal wall Laryngeal Elevation: Partial superior movement thyroid cart/partial apprx aryt- epig petiole Anterior Hyoid Excursion: Partial anterior movement Epiglottic Movement: Partial inversion Laryngeal Vestibule Closure at Height of Swallow: Incomplete; narrow column of air/contrast in laryngeal vestibule Pharyngeal Stripping Wave: Present - diminished Pharyngoesophageal Segment Opening: Parital distension and partial duration; parital obstruction of flow Tongue Base Retraction: Narrow column of contrast between tongue base & post. pharyngeal wall Pharyngeal Residue: Collection of residue within or on pharyngeal structures Esophageal Phase Esophageal Clearance: Complete clearance Diagnosis/Impression Diagnosis: Moderate oropharyngeal dysphagia R13.12 Impression: The oral phase is primarily marked by... -Decreased labial seal observed with pudding trial. Majority of bolus landed on patient's chin as the CYBER INTELLIGENCE ANALYST removed the spoon from his mouth. CYBER INTELLIGENCE ANALYST cued him to press lips tightly to the spoon on second attempt. -Poor bolus control with premature posterior loss of >1/2 liquid boluses to the pharynx prior to swallow onset. Certain trials of thin and nectar/mildly thick liquids spilled to the laryngeal vestibule prior to swallow onset increasing risk for aspiration. -Disorganized tongue motion for A-P transport. -Timely mastication of cookie with small un-chewed pieces. Recommend Easy to Chew solids. The pharyngeal phase is primarily marked by... -Delayed swallow onset. -Mild-moderate pharyngeal residue due to decreased tongue base retraction, poor pharyngeal stripping wave, and decreased duration of UES opening. -Decreased airway closure due to decreased anterior hyoid excursion, decreased laryngeal elevation, and partial epiglottic inversion. -SILENT aspiration of thin liquids by tsp, thin liquids by cup. SILENT post prandial aspiration of nectar/mildly thick liquids by cup. Overt aspiration of thin liquids by straw. Decreased bolus size and effortful swallows were most effective in decreasing risk for aspiration. Recommendations Diet: Regular Textures (Easy to Chew textures - IDDSI Level 7) and Thin Liquids Comment: Meds whole in applesauce Compensatory Strategies: Small Bites, Small Sips (Effortful Swallows on each sip), Slow Rate and Sitting upright Supervision: 1:1 Close Supervision (ALL food/drink) Recommend Repeat Modified Barium Swallow: Yes Comment: 2-3 weeks after implementation of oropharyngeal exercise program. Need for Skilled Speech Therapy Services: Yes Comment: CYBER INTELLIGENCE ANALYST recommends continued dysphagia during acute stay and upon discharge from [facility] for ongoing assessment of diet tolerance, education re: strategies to decrease risk for oral care, education re: oral care regimen, and implementation of oropharyngeal exercise program (lingual resistance and coordination exercises, effortful swallows, CTAR, Janell). -If patient is unable to reliably control rate of drinking, please consider patient for a bolus control cup (10cc). -If poor diet tolerance, inability to effectively utilize compensatory strategies, or worsening respiratory status, please consider downgrade of liquids to honey/moderately thick liquids. Education Completed: 1. Described result of evaluation. and 2. Pt understands evaluation & agrees with goals and treatment plan. Comment: CYBER INTELLIGENCE ANALYST is concerned dysphagia is secondary to an underlying neurological cause due to L sided lean and garbled/groping speech production. CYBER INTELLIGENCE ANALYST informed Dr. Guzman of these concerns. Status Active ST Patient: Active Contact Information [facility] Speech Therapy:: Erika Rahman M.A. [facility]-CYBER INTELLIGENCE ANALYST? Speech-Language Pathologist?? [facility] [address] [place] [address]? [email or web address]?? [phone]
--- NOTE | 2023-11-09 09:53 | PCM.PN.HOSP ---
Reason for Visit Reason for Visit: Diagnoses Acidosis, unspecified (11/08/23) Pneumonia, unspecified organism (11/08/23) Urinary tract infection, site not specified (11/08/23) Objective Data Objective Data Vital Signs: Vital Signs Temp Pulse Resp BP Pulse Ox O2 Del Method 99.1 F 89 20 H 120/61 93 Room Air 11/09/23 07:02 11/09/23 07:02 11/09/23 07:02 11/09/23 07:02 11/09/23 07:02 11/09/23 07:02 Oxygen Delivery Method Room Air Weight: 258 lb 15.985 oz Body Mass Index (BMI) 33.2 Intake & Output: Intake and Output for Last 24 Hours 11/07/23 11/08/23 11/09/23 23:59 23:59 23:59 Intake Total 4245 / 4245 1000 / 1000 Output Total 460 / 460 500 / 500 Balance 3785 / 3785 500 / 500 Lab / Micro Data 11/09/23 06:29 11/09/23 06:29 Labs: Laboratory Results - last 24 hr 11/08/23 13:07: POC Glucose 168 H 11/08/23 16:19: POC Glucose 151 H 11/08/23 20:12: POC Glucose 133 H 11/09/23 06:29: WBC 7.1, RBC 4.07 L, Hgb 12.5 L, Hct 36.1 L, MCV 88.7, MCH 30.7, MCHC 34.6, RDW Std Deviation 38.7, RDW Coeff of Gage 12.0, Plt Count 100 L, MPV 9.1, Immature Gran % (Auto) 0.300, Neut % (Auto) 83.6 H, Lymph % (Auto) 8.9 L, [place] % (Auto) 6.2, Eos % (Auto) 0.7, Baso % (Auto) 0.3, Absolute Neuts (auto) 5.9, Absolute Lymphs (auto) 0.63 L, Nucleated RBC % 0, Sodium 135 L, Potassium 3.8, Chloride 105, Carbon Dioxide 24.0, Anion Gap 6, BUN 11, Creatinine 0.75, Estim Creat Clear Calc 110.36, Est GFR (MDRD) Af Amer 131, Est GFR (MDRD) Non-Af 108, BUN/Creatinine Ratio 14.7, Glucose 132 H, Lactic Acid 1.0, Calcium 7.6 L 11/09/23 07:06: POC Glucose 115 H Micro: Microbiology 11/08/23 01:29 Blood Culture (Wb) - Right Forearm Blood Culture - Preliminary 11/08/23 05:10 Mucosa - Nasopharyngeal Respiratory Panel (PCR) - Final 11/08/23 01:58 Urine Catheter - Catheter Legionella Antigen - Final 11/08/23 01:58 Urine Catheter - Catheter Streptococcus pneumoniae Antigen (M - Final 11/08/23 01:27 Mucosa - Nose SARS-CoV-2, Influenza & RSV (PCR) - Final Radiography Diagnostic Testing: Radiology Impression Renal Ultrasound 11/08/23 16:13 IMPRESSION: Right renal cyst. No hydronephrosis. Enlarged prostate. Electronically Signed: Stepan Potts MD at 18:20 EDT , Abdomen/Pelvis CT 11/08/23 17:11 IMPRESSION: Wall thickening of the urinary bladder. Enlarged prostate gland. No stones or hydronephrosis. Hepatosplenomegaly. Prior cholecystectomy. No biliary dilatation. Electronically Signed: Stepan Potts MD at 18:16 EDT , Physical Exam Narrative Seen and examined Patient had low-grade fever at the time of admission Tmax 101 Fahrenheit but currently afebrile. Heart rate and blood pressure has also normalized. Patient does not look cognitively very sharp although denies chronic neurological condition including stroke, MS tumor or other chronic degenerative neuropathies. Blood culture prelim came positive of gram-positive cocci in cluster and vancomycin empirically was started last night. Swallow suboptimal and on modified diet. Had modified barium swallow. Physical exam General: Alert, Oriented x3, Cooperative, cognitively slow. HEENT: Atraumatic, PERRLA, EOMI, Normocephalic Oral: No Gingival or Mucosal Lesions/ Ulcerations Neck: Supple, No JVD, Negative Carotid Bruits Chest wall/Lungs: Air entry diminished in bilateral lung bases. No crepitation/rhonchi. Tachypneic Cardiovascular: Mild sinus tachycardia, Normal S1, Normal S2, No M/G/R Abdomen: Bowel Sounds Present, Soft, Non Tender, Non-Distended : Voiding reddish urine due to Pyridium. External catheter system. Dysuria present. Possible urinary spasm. No renal angle tenderness no suprapubic tenderness. Extremities: No edema, Capillary Refill Less than 3 Seconds Skin: No rashes, No breakdown Musculoskeletal: No Tenderness to Palpation of Joints or Extremities Neurological: Cranial nerves II-XII grossly intact, DTR 2+/4. No acute focal neurological deficit. Psych/Mental Status: Flat affect Assessment & Plan Assessment/Plan (1) Urinary tract infection: (2) Pneumonia: (3) Acidosis, lactic: PLAN: Plan The patient is a 73 y/o M came to ED with nausea, vomiting , loose stool started 1 day before admission. Patient not able to keep anything down the stomach. Also having dry heaving. Fever 101 Fahrenheit at home. Denied chest pain or cough, shortness of breath. [place] like a spasm on perineal region with burning micturition. #1. Acute complicated UTI. Patient has SIRS criteria with mild tachycardia, tachypnea, low-grade fever Tmax 101 Fahrenheit. Lactic acidosis but no cough or shortness of breath. No evidence of endorgan damage and therefore not consistent with sepsis. Chest x-ray shows bilateral infiltrate possible atelectasis. Patient empirically on IV ceftriaxone and azithromycin. Urine culture pending. Infectious workup ordered. Patient also had diarrhea and enteric bacteriology panel and CD4 ordered but on the floor did not had bowel movement therefore not collected yet Bladder scan. Straight cath was done. Urine culture and blood cultures are pending. SIRS criteria, may be possible from hypovolemia. Normal saline 500 mL bolus given and then IV fluid normal saline +20 mEq KCl 125 mill per hour ordered. Monitor intake and output. Patient on Flomax and Azo. Urologist consulted. Renal and bladder ultrasound ordered. Prostate ultrasound ordered. 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 Blood culture, prelim YARD ENGINEER. It is present in 1 anaerobic bottle out of 2. Discussed with ID. No need for treatment. Empirically vancomycin that was started last night is discontinued. Urinary antigens and respiratory panel are negative. Overall urine culture was collected before the start of the antibiotic. Repeat lactic acid normal. Patient was evaluated by the urologist yesterday and advised to continue IV antibiotic. CT scan and ultrasound were done which shows enlarged prostate but no stones or hydronephrosis. It does show wall thickening of urinary bladder. #2. Hypertension: Continue home regimen including isosorbide, losartan with hold parameters as needed, PRN hydralazine. 11/08: Blood pressure in low normal to systolic 120s although better than before. Hold antihypertensive medications. #3. Hyperlipidemia: Continue home statin and icosapent regimen. #4. Diabetes mellitus type II: Hold oral home regimen, ADA diet once nausea/emesis abating, accu checks w/ ISS. 11/08: Glucoses controlled 115-150. #5. Chronic thrombocytopenia: Admission platelet 110, prior baseline similar, we will continue to trend CBC and cautiously utilize chemoprophylaxis and antiplatelet therapy. #6. Chronic COPD with allergic rhinitis: Not on any chronic regimen per current list, will maintain on ATC budesonide therapy, PRN albuterol, HOB, IS parameters, continue patient home cetirizine and montelukast regimen. #7. Chronic Kidney Disease Stage II : Admission BUN/creatinine 10/0.92, GFR 86 which is similar to previous, baseline creatinine noted prior primarily 0.9-1.0, stable, monitor kidney #8. Obesity: Weight loss and lifestyle changes encouraged. #9. Former tobacco use: Encourage continued tobacco cessation. #10. BPH: Will continue patient on Flomax regimen. #11. DVT prophylaxis: Lovenox. #12. CODE STATUS: Patient denies having healthcare power of four roll calender operator or living will and at this time states he does not wish to give a name of someone who may be able to make decisions for him. Discussed CODE status at length including difference between FULL code, DNR-CCA and DNR-CC status. Following discussions about the differences in these status, requested DNR-CCA, no intubation. Clinical Impression(s) from Imaging Studies Chest X-Ray 11/08/23 01:19 IMPRESSION: Bibasilar atelectasis versus infiltrate, left greater than right Renal Ultrasound 11/08/23 16:13 IMPRESSION: Right renal cyst. No hydronephrosis. Enlarged prostate. Abdomen/Pelvis CT 11/08/23 17:11 IMPRESSION: Wall thickening of the urinary bladder. Enlarged prostate gland. No stones or hydronephrosis. Hepatosplenomegaly. Prior cholecystectomy. No biliary dilatation. Electronically Signed: Stepan Potts MD at 18:16 EDT , Charges/Coding Visit Charges Inpatient E&M: 53390 Subs Hosp L2
[2023-11-09] MEDS: Vancomycin HCl 2,000 MG in 0.9% Normal Saline (500mL Bag) 500 ML 250 MG IV (10:12)
[2023-11-09] MEDS: Enoxaparin 40 MG/0.4 ML Syringe SC (10:41)
[2023-11-09] MEDS: Tamsulosin HCl 0.4 MG Capsule 0.8 MG PO (10:43)
[2023-11-09] MEDS: Losartan Potassium 25 MG Tablet PO (10:43)
[2023-11-09] MEDS: Isosorbide Mononitrate 30 MG Tablet PO (10:43)
[2023-11-09] MEDS: guaiFENesin/D-Methorphan TAB.SR.12H 2 TABLET PO ×2 (10:43→21:27)
[2023-11-09] MEDS: Clopidogrel Bisulfate 75 MG Tablet PO (10:43)
[2023-11-09] MEDS: Nystatin Powder 15gm Bottle 1 APPLIC TOPICAL ×2 (11:19→21:45)
[2023-11-09] MEDS: Finasteride 5 MG Tablet PO (11:19)
[2023-11-09] MEDS: Insulin Lispro 100 UNIT/ML INSULN.PEN SC ×2 (11:23→17:20)
[2023-11-09 12:18] LABS: Bedside Glucose 151 mg/dL (74-106)
[2023-11-09] MEDS: Azithromycin 500 MG in Dextrose 5%-Water (250mL Bag) 250 ML 250 MG IV (12:34)
--- NOTE | 2023-11-09 14:02 | CASEMGMT ---
Discharge Planning Per Virgie at [facility], pt will not be able to return to [place] if he needs to be supervised during meals. SW updated. Cynthia Tran DC Planning Asst.
--- NOTE | 2023-11-09 14:05 | CASEMGMT ---
Discharge Planning A list of?SNF providers including quality and resource use data and consistent with the patient's preferred geographic region, medical needs, and insurance network was created in [employer] Guide.? This list was provided to the SW. Cynthia Tran Discharge Planning Asst.
[2023-11-09] MEDS: Ceftriaxone 1 GM/50 ML BAG IV (14:08)
--- NOTE | 2023-11-09 14:59 | CASEMGMT ---
Addendum entered by Marii Mensah 11/09/23 16:14: Social Work [facility] has not yet made determination of acceptance. Pt here through the weekend until SNF placement has been secured. JACEY [place] Original Note: Social Work ST is recommending supervision when pt is eating due to dysphagia. [facility] notified of recommendations and states pt cannot return as they are unable to provide needed assistance. SW met with pt and introduced self and role of SW. SW informed pt that [facility] cannot accept pt back. Pt angry about this and intially stating he will not go to SNF and will return to [facility]. Pt called a friend Ana on the phone and RAMON, Ana and Pt discussed discharge plan. After much discussion, pt is agreeable to SNF. A list of SNF providers including quality and resource use data and consistent with the patient?s preferred geographic region, medical needs, and insurance network were provided from the [employer] Guide. Pt preferred provider is 1. [facility] and 2. [facility]. DC operating room assistant updated and to send a referral. Pt could dc on Sunday if medically ready and if an accepting facility is found. Plan: [facility], pending acceptance JACEY Spain
--- NOTE | 2023-11-09 15:00 | CASEMGMT ---
Discharge Planning Referral sent via [facility] to [facility]. Cynthia Tran DC Planning Asst.
--- NOTE | 2023-11-09 16:36 | CASEMGMT ---
Discharge Planning Referral faxed to Anjelica @ [facility] d/t admissions being gone for the day. Noted to contact Marii with questions and/or decision. Cynthia Tran DC Planning Asst.
[2023-11-09 17:18] LABS: Bedside Glucose 154 mg/dL (74-106)
[2023-11-09 19:35] VITALS: PULSE 68; RESP 18
[2023-11-09] MEDS: 0.9% Saline Lock 10 ML Syringe IV ×2 (19:52→21:26)
[2023-11-09 20:10] VITALS: BP 135/75; PULSE 68; RESP 20; TEMP 36.8; O2SAT 97
[2023-11-09] MEDS: Loratadine 10 MG Tablet PO (21:26)
[2023-11-09] MEDS: MELATONIN 10 MG TABLET 5 MG PO (21:28)
[2023-11-09] MEDS: Atorvastatin Calcium 80 MG Tablet PO (21:28)
[2023-11-09] MEDS: Montelukast 10 MG Tablet PO (21:28)
[2023-11-09 22:19] LABS: Bedside Glucose 128 mg/dL (74-106)
[2023-11-10] VITALS (7 sets, daily range): BP systolic 103–134; BP diastolic 60–71; PULSE 57–95; RESP 18–22; TEMP 36.3–37.2; O2SAT 94–97; BMI 33.7
[2023-11-10 07:05] LABS: Absolute Neutrophil Count 3.1 X10^3/uL (2.0-7.7); Basophil# 0.02 X10^3/uL; Basophil% 0.5 % (0-1); Eosinophil# 0.17 X10^3/uL; Hematocrit 35.4 % (40-54); Hemoglobin 12.2 g/dL (13.0-16.5); Mean Corp Hgb Conc 34.5 g/dL (32-36); Mean Corpuscular Hgb 30.1 pg (27.0-32.0); Mean Corpuscular Volume 87.4 fL (80-94); Mean Platelet Vol. 9.1 fl (6.2-12.0); Monocyte% 9.3 % (0-10); NRBC Flagged by Analyzer 0 % (0-5); Neutrophil # 3.08 X10^3/uL (2.7-7.7); Neutrophil % 71.7 % (47-70); POSITIVE DIFFERENTIAL YES; Platelet Count 106 K/mm3 (150-450); RBC Distribution Width CV 11.9 % (11.6-14.6); Red Blood Count 4.05 M/mm3 (4.6-6.2); White Blood Count 4.3 K/mm3 (4.4-11.0)
[2023-11-10] MEDS: Phenazopyridine 95 MG Tablet 190 MG PO (07:10)
[2023-11-10] MEDS: Budesonide Respules 0.5 MG/2 ML AMPUL.NEB. INHALATION ×2 (07:18→18:18)
[2023-11-10 07:26] LABS: Anion Gap 6 (5-15); BUN 10 mg/dL (7-18); BUN/Creat Ratio 13.3 RATIO (10-20); Calcium,Total 7.7 mg/dL (8.5-10.1); Chloride 108 mmol/L (98-107); Creatinine, Serum 0.75 mg/dL (0.70-1.30); EST Glomerular Filtration Rate 108 mL/min (>60); Est Glom Filt Rate - Afr Amer 131 mL/min (>60); Estimated Creatinine Clearance 110.36 ml/min; Glucose 137 mg/dL (74-106); Potassium 3.6 mmol/L (3.5-5.1); Sodium Level 138 mmol/L (136-145)
[2023-11-10 07:32] LABS: Bedside Glucose 144 mg/dL (74-106)
[2023-11-10] MEDS: guaiFENesin/D-Methorphan TAB.SR.12H 2 TABLET PO ×2 (08:31→20:46)
[2023-11-10] MEDS: Isosorbide Mononitrate 30 MG Tablet PO (08:33)
[2023-11-10] MEDS: Losartan Potassium 25 MG Tablet PO (08:33)
[2023-11-10] MEDS: Tamsulosin HCl 0.4 MG Capsule 0.8 MG PO (08:33)
[2023-11-10] MEDS: Clopidogrel Bisulfate 75 MG Tablet PO (08:34)
[2023-11-10] MEDS: Finasteride 5 MG Tablet PO ×2 (08:34→08:53)
[2023-11-10] MEDS: Nystatin Powder 15gm Bottle 1 APPLIC TOPICAL ×2 (08:38→20:44)
[2023-11-10] MEDS: Azithromycin 250 MG Tablet 500 MG PO (08:50)
[2023-11-10] MEDS: Menthol/Lanolin/Calamine/Znox 113 GM Tube 1 APPLIC TOPICAL ×2 (08:50→20:45)
[2023-11-10] MEDS: Ceftriaxone 1 GM/50 ML BAG IV (09:08)
[2023-11-10] MEDS: Enoxaparin 40 MG/0.4 ML Syringe SC (10:43)
--- NOTE | 2023-11-10 11:08 | PCM.PN.HOSP ---
Reason for Visit Reason for Visit: Diagnoses Acidosis, unspecified (11/08/23) Pneumonia, unspecified organism (11/08/23) Urinary tract infection, site not specified (11/08/23) Objective Data Objective Data Vital Signs: Vital Signs Temp Pulse Resp BP Pulse Ox O2 Del Method 98.6 F 72 18 134/71 H 95 Room Air 11/10/23 09:46 11/10/23 09:46 11/10/23 09:46 11/10/23 09:46 11/10/23 09:46 11/10/23 09:46 Oxygen Delivery Method Room Air Weight: 258 lb 15.985 oz Body Mass Index (BMI) 33.2 Intake & Output: Intake and Output for Last 24 Hours 11/08/23 11/09/23 11/10/23 23:59 23:59 23:59 Intake Total 4245 / 4245 3045 / 3145 150 / 150 Output Total 460 / 460 750 / 1200 450 / 450 Balance 3785 / 3785 2295 / 1945 -300 / -300 Lab / Micro Data 11/10/23 06:57 11/10/23 06:57 Labs: Laboratory Results - last 24 hr 11/09/23 11:22: POC Glucose 151 H 11/09/23 17:00: POC Glucose 154 H 11/09/23 21:43: POC Glucose 128 H 11/10/23 06:57: WBC 4.3 L, RBC 4.05 L, Hgb 12.2 L, Hct 35.4 L, MCV 87.4, MCH 30.1, MCHC 34.5, RDW Std Deviation 38.0, RDW Coeff of Gage 11.9, Plt Count 106 L, MPV 9.1, Immature Gran % (Auto) 0.500, Neut % (Auto) 71.7 H, Lymph % (Auto) 14.0 L, Hand % (Auto) 9.3, Eos % (Auto) 4.0, Baso % (Auto) 0.5, Absolute Neuts (auto) 3.1, Absolute Lymphs (auto) 0.60 L, Nucleated RBC % 0, Sodium 138, Potassium 3.6, Chloride 108 H, Carbon Dioxide 24.0, Anion Gap 6, BUN 10, Creatinine 0.75, Estim Creat Clear Calc 110.36, Est GFR (MDRD) Af Amer 131, Est GFR (MDRD) Non-Af 108, BUN/Creatinine Ratio 13.3, Glucose 137 H, Calcium 7.7 L 11/10/23 07:13: POC Glucose 144 H Micro: Microbiology 11/08/23 01:58 Urine, Clean Catch Urine Culture - Final Klebsiella pneumoniae sp pneum 11/08/23 01:29 Blood Culture (Wb) - Right Forearm Blood Culture - Preliminary Staphylococcus capitis 11/08/23 05:10 Mucosa - Nasopharyngeal Respiratory Panel (PCR) - Final 11/08/23 01:58 Urine Catheter - Catheter Legionella Antigen - Final 11/08/23 01:58 Urine Catheter - Catheter Streptococcus pneumoniae Antigen (M - Final 11/08/23 01:27 Mucosa - Nose SARS-CoV-2, Influenza & RSV (PCR) - Final Physical Exam Narrative Seen and examined Patient had low-grade fever at the time of admission Tmax 101 Fahrenheit but afebrile for more than 48 hours. Heart rate and blood pressure has also normalized. As per nursing staff, he was choking. When I went to see the patient is an please left me alone. I asked whether he has any subjective symptom or complaints at no. Patient wants to rest. Swallow suboptimal and on modified diet. Physical exam General: Awake, oriented x3, Cooperative, cognitively slow. HEENT: Atraumatic, PERRLA, EOMI, Normocephalic Oral: No Gingival or Mucosal Lesions/ Ulcerations Neck: Supple, No JVD, Negative Carotid Bruits Chest wall/Lungs: Air entry diminished in bilateral lung bases. No crepitation/rhonchi. Breathing is good. Pulse ox 95% on room air Cardiovascular: Sinus rhythm, Normal S1, Normal S2, No M/G/R Abdomen: Bowel Sounds Present, Soft, Non Tender, Non-Distended : Voiding reddish urine due to Pyridium. External catheter system. No renal angle tenderness no suprapubic tenderness. Extremities: No edema, Capillary Refill Less than 3 Seconds Skin: No rashes, No breakdown Musculoskeletal: No Tenderness to Palpation of Joints or Extremities Neurological: Cranial nerves II-XII grossly intact, DTR 2+/4. No acute focal neurological deficit. Psych/Mental Status: Flat affect Assessment & Plan Assessment/Plan (1) Urinary tract infection: (2) Pneumonia: (3) Acidosis, lactic: PLAN: Plan The patient is a 73 y/o M came to ED with nausea, vomiting , loose stool started 1 day before admission. Patient not able to keep anything down the stomach. Also having dry heaving. Fever 101 Fahrenheit at home. Denied chest pain or cough, shortness of breath. [place] like a spasm on perineal region with burning micturition. #1. Acute complicated UTI. Patient has SIRS criteria with mild tachycardia, tachypnea, low-grade fever Tmax 101 Fahrenheit. Lactic acidosis but no cough or shortness of breath. No evidence of endorgan damage and therefore not consistent with sepsis. Chest x-ray shows bilateral infiltrate possible atelectasis. Patient empirically on IV ceftriaxone and azithromycin. Urine culture pending. Infectious workup ordered. Patient also had diarrhea and enteric bacteriology panel and CD4 ordered but on the floor did not had bowel movement therefore not collected yet Bladder scan. Straight cath was done. Urine culture and blood cultures are pending. SIRS criteria, may be possible from hypovolemia. Normal saline 500 mL bolus given and then IV fluid normal saline +20 mEq KCl 125 mill per hour ordered. Monitor intake and output. Patient on Flomax and Azo. Urologist consulted. Renal and bladder ultrasound ordered. Prostate ultrasound ordered. 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 Blood culture, prelim ENTERTAINER OR VARIETY ARTIST. It is present in 1 anaerobic bottle out of 2. Discussed with ID. No need for treatment. Empirically vancomycin that was started last night is discontinued. Urinary antigens and respiratory panel are negative. Overall urine culture was collected before the start of the antibiotic. Repeat lactic acid normal. Patient was evaluated by the urologist yesterday and advised to continue IV antibiotic. CT scan and ultrasound were done which shows enlarged prostate but no stones or hydronephrosis. It does show wall thickening of urinary bladder. 11/09: Continue IV antibiotic. Azithromycin 1 more day. Patient is overall doing good. Tachycardia, tachypnea and fever has resolved. Pyridium is discontinued. #2. Hypertension: Continue home regimen including isosorbide, losartan with hold parameters as needed, PRN hydralazine. 11/08: Blood pressure in low normal to systolic 120s although better than before. Hold antihypertensive medications. 11/19 blood pressure 134/71. Patient on losartan and isosorbide mononitrate. #3. Hyperlipidemia: Continue home statin and icosapent regimen. #4. Diabetes mellitus type II: Hold oral home regimen, ADA diet once nausea/emesis abating, accu checks w/ ISS. 11/08: Glucoses controlled 115-150. #5. Chronic thrombocytopenia: Admission platelet 110, prior baseline similar, we will continue to trend CBC and cautiously utilize chemoprophylaxis and antiplatelet therapy. Patient is tolerating enoxaparin well. Platelet counts remains similar to the previous. #6. COPD with allergic rhinitis: Not on any chronic regimen per current list, will maintain on ATC budesonide therapy, PRN albuterol, HOB, IS parameters, continue patient home cetirizine and montelukast regimen. #7. Chronic Kidney Disease Stage II : Admission BUN/creatinine 10/0.92, GFR 86 which is similar to previous, baseline creatinine noted prior primarily 0.9-1.0, stable, monitor kidney #8. Obesity: Weight loss and lifestyle changes encouraged. #9. Former tobacco use: Encourage continued tobacco cessation. #10. BPH: Will continue patient on Flomax regimen. #11. DVT prophylaxis: Lovenox. #12. CODE STATUS: Patient denies having healthcare power of coyote hunter or living will and at this time states he does not wish to give a name of someone who may be able to make decisions for him. Discussed CODE status at length including difference between FULL code, DNR-CCA and DNR-CC status. Following discussions about the differences in these status, requested DNR-CCA, no intubation. Microbiology Past 72 Hours 11/08/23 01:58 Urine, Clean Catch Urine Culture - Final Klebsiella pneumoniae sp pneum 11/08/23 01:29 Blood Culture (Wb) - Right Forearm Blood Culture - Preliminary Staphylococcus capitis 11/08/23 05:10 Mucosa - Nasopharyngeal Respiratory Panel (PCR) - Final 11/08/23 01:58 Urine Catheter - Catheter Legionella Antigen - Final 11/08/23 01:58 Urine Catheter - Catheter Streptococcus pneumoniae Antigen (M - Final 11/08/23 01:27 Mucosa - Nose SARS-CoV-2, Influenza & RSV (PCR) - Final Laboratory Results 11/09/23 11:22: POC Glucose 151 H 11/09/23 17:00: POC Glucose 154 H 11/09/23 21:43: POC Glucose 128 H 11/10/23 06:57: WBC 4.3 L, RBC 4.05 L, Hgb 12.2 L, Hct 35.4 L, MCV 87.4, MCH 30.1, MCHC 34.5, RDW Std Deviation 38.0, RDW Coeff of Gage 11.9, Plt Count 106 L, MPV 9.1, Immature Gran % (Auto) 0.500, Neut % (Auto) 71.7 H, Lymph % (Auto) 14.0 L, Hand % (Auto) 9.3, Eos % (Auto) 4.0, Baso % (Auto) 0.5, Absolute Neuts (auto) 3.1, Absolute Lymphs (auto) 0.60 L, Nucleated RBC % 0, Sodium 138, Potassium 3.6, Chloride 108 H, Carbon Dioxide 24.0, Anion Gap 6, BUN 10, Creatinine 0.75, Estim Creat Clear Calc 110.36, Est GFR (MDRD) Af Amer 131, Est GFR (MDRD) Non-Af 108, BUN/Creatinine Ratio 13.3, Glucose 137 H, Calcium 7.7 L 11/10/23 07:13: POC Glucose 144 H Clinical Impression(s) from Imaging Studies Chest X-Ray 11/08/23 01:19 IMPRESSION: Bibasilar atelectasis versus infiltrate, left greater than right Renal Ultrasound 11/08/23 16:13 IMPRESSION: Right renal cyst. No hydronephrosis. Enlarged prostate. Abdomen/Pelvis CT 11/08/23 17:11 IMPRESSION: Wall thickening of the urinary bladder. Enlarged prostate gland. No stones or hydronephrosis. Hepatosplenomegaly. Prior cholecystectomy. No biliary dilatation. Electronically Signed: Stepan Potts MD at 18:16 EDT , Charges/Coding Visit Charges Inpatient E&M: 21741 Subs Hosp L2
[2023-11-10] MEDS: Insulin Lispro 100 UNIT/ML INSULN.PEN SC ×3 (11:36→20:48)
[2023-11-10 11:59] LABS: Bedside Glucose 154 mg/dL (74-106)
--- NOTE | 2023-11-10 12:40 | CON.PCM.UR_ITS ---
HPI Consult Data Date of Consult: 11/10/23 HPI Narrative Reason for Consultation: Frequency of urination HPI Narrative: PILAR MARTINEZ, is a 73 M who currently in the hospital with a possible urinary tract infection and BPH exacerbation. He is on Flomax. Currently has a Knight catheter in place because he is having too much frequent urination and the Knight catheter was placed. At this point he can follow-up as an outpatient in my office to discuss options of management for his prostate we could consider doing prostate surgery or adding finasteride 5 mg daily to his Flomax regimen and see if this will help with his prostate problems. On discharge he can go home with a catheter and follow-up in my office for further care. Call with questions [facility] Medical History Adult failure to thrive Obesity Allergic rhinitis CKD (chronic kidney disease), stage II Former tobacco use COPD (chronic obstructive pulmonary disease) BPH (benign prostatic hyperplasia) Hyperlipemia HTN (hypertension) Diabetes Home Medications ?Medication ?Instructions ?Recorded ?Last Taken ?Type atorvastatin 80 mg tablet 80 mg PO QHS cholesterol 11/08/22 Unknown History cetirizine 5 mg tablet 5 mg PO QHS allergies 11/08/22 Unknown History cholecalciferol (vitamin D3) 125 5,000 unit PO QWEEK vitamin 11/08/22 Unknown History mcg (5,000 unit) tablet (Vitamin D3) clopidogrel 75 mg tablet 75 mg PO DAILY anti platelet 11/08/22 11/08/22 History icosapent ethyl 1 gram capsule 2 g PO BID triglycerides 11/08/22 Unknown History (Vascepa) isosorbide mononitrate 30 mg 30 mg PO DAILY heart 11/08/22 Unknown History tablet,extended release 24 hr linagliptin 5 mg tablet (Tradjenta) 5 mg PO DAILY diabetes 11/08/22 Unknown History losartan 25 mg tablet 25 mg PO DAILY blood pressure 11/08/22 Unknown History melatonin 5 mg tablet 5 mg PO QHS sleep 11/08/22 Unknown History metformin 500 mg tablet 500 mg PO BID diabetes 11/08/22 Unknown History montelukast 10 mg tablet 10 mg PO QHS allergies 11/08/22 Unknown History polyethylene glycol 3350 17 17 g PO .EVERY OTHER DAY 11/08/22 Unknown History gram/dose oral powder (Gavilax) constipation tamsulosin 0.4 mg capsule 0.8 mg PO DAILY prostate 11/08/22 Unknown History Allergy/AdvReac Type Severity Reaction Status Date / Time No Known Allergies Allergy Verified 11/08/23 01:04 Family History Mother Diabetes Cancer Father Diabetes Cancer Surgical History History of herniorrhaphy Hx of cholecystectomy Hx of appendectomy Social History housing: assisted living facility Smoking Status: Former smoker alcohol intake: never substance use type: does not use Lab / Micro Data 11/10/23 06:57 11/10/23 06:57 Labs: Laboratory Results - last 24 hr 11/09/23 17:00: POC Glucose 154 H 11/09/23 21:43: POC Glucose 128 H 11/10/23 06:57: WBC 4.3 L, RBC 4.05 L, Hgb 12.2 L, Hct 35.4 L, MCV 87.4, MCH 30.1, MCHC 34.5, RDW Std Deviation 38.0, RDW Coeff of Gage 11.9, Plt Count 106 L, MPV 9.1, Immature Gran % (Auto) 0.500, Neut % (Auto) 71.7 H, Lymph % (Auto) 14.0 L, [place] % (Auto) 9.3, Eos % (Auto) 4.0, Baso % (Auto) 0.5, Absolute Neuts (auto) 3.1, Absolute Lymphs (auto) 0.60 L, Nucleated RBC % 0, Sodium 138, Potassium 3.6, Chloride 108 H, Carbon Dioxide 24.0, Anion Gap 6, BUN 10, Creatinine 0.75, Estim Creat Clear Calc 110.36, Est GFR (MDRD) Af Amer 131, Est GFR (MDRD) Non-Af 108, BUN/Creatinine Ratio 13.3, Glucose 137 H, Calcium 7.7 L 11/10/23 07:13: POC Glucose 144 H 11/10/23 11:34: POC Glucose 154 H Micro: Microbiology 11/08/23 01:58 Urine, Clean Catch Urine Culture - Final Klebsiella pneumoniae sp pneum 11/08/23 01:29 Blood Culture (Wb) - Right Forearm Blood Culture - Preliminary Staphylococcus capitis
--- NOTE | 2023-11-10 15:18 | NURSING ---
This RN paged Dr Bryant because it was noted in Dr Bryant's report from 11/09 that the pt had a parikh catheter. The pt did not have a parikh catheter during this stay, pt voiding using primofit and post void residual was negative. Dr Bryant said it was OK for pt to go home WITHOUT parikh catheter, he was under the impression that a parikh was inserted, but it was not.
[2023-11-10 16:46] LABS: Bedside Glucose 169 mg/dL (74-106)
[2023-11-10 20:08] LABS: Bedside Glucose 159 mg/dL (74-106)
[2023-11-10] MEDS: Montelukast 10 MG Tablet PO (20:47)
[2023-11-10] MEDS: Atorvastatin Calcium 80 MG Tablet PO (20:47)
[2023-11-10] MEDS: MELATONIN 10 MG TABLET 5 MG PO (20:47)
[2023-11-10] MEDS: Loratadine 10 MG Tablet PO (20:47)
[2023-11-10] MEDS: Acetaminophen 325 MG Tablet 650 MG PO (20:48)
[2023-11-11 02:29] VITALS: BP 121/56; PULSE 65; RESP 18; TEMP 36.8; O2SAT 97
[2023-11-11 05:42] VITALS: BMI 33.6
[2023-11-11 06:44] LABS: Bedside Glucose 133 mg/dL (74-106)
[2023-11-11] MEDS: Budesonide Respules 0.5 MG/2 ML AMPUL.NEB. INHALATION ×2 (07:06→18:26)
[2023-11-11 07:07] VITALS: PULSE 64; RESP 20; O2SAT 95
[2023-11-11 07:50] VITALS: BP 139/70; PULSE 54; RESP 18; TEMP 36.6; O2SAT 97
[2023-11-11] MEDS: Menthol/Lanolin/Calamine/Znox 113 GM Tube 1 APPLIC TOPICAL ×2 (07:53→22:10)
[2023-11-11] MEDS: guaiFENesin/D-Methorphan TAB.SR.12H 2 TABLET PO ×2 (07:54→22:11)
[2023-11-11] MEDS: Nystatin Powder 15gm Bottle 1 APPLIC TOPICAL ×2 (07:54→22:11)
[2023-11-11] MEDS: Losartan Potassium 25 MG Tablet PO (07:55)
[2023-11-11] MEDS: Tamsulosin HCl 0.4 MG Capsule 0.8 MG PO (07:55)
[2023-11-11] MEDS: Isosorbide Mononitrate 30 MG Tablet PO (07:56)
[2023-11-11] MEDS: Clopidogrel Bisulfate 75 MG Tablet PO (07:56)
[2023-11-11] MEDS: Enoxaparin 40 MG/0.4 ML Syringe SC (07:56)
[2023-11-11] MEDS: Polyethylene Glycol 3350 17 GM PACKET PO (08:01)
[2023-11-11] MEDS: Azithromycin 250 MG Tablet 500 MG PO (08:01)
[2023-11-11] MEDS: 0.9% Saline Lock 10 ML Syringe IV (10:48)
[2023-11-11] MEDS: Ceftriaxone 1 GM/50 ML BAG IV (10:48)
[2023-11-11] MEDS: Insulin Lispro 100 UNIT/ML INSULN.PEN SC ×3 (11:20→22:10)
[2023-11-11 11:39] LABS: Bedside Glucose 170 mg/dL (74-106)
--- NOTE | 2023-11-11 13:04 | PN.HOSP_ITS ---
Reason for Visit Reason for Visit: Diagnoses Acidosis, unspecified (11/08/23) Pneumonia, unspecified organism (11/08/23) Urinary tract infection, site not specified (11/08/23) Objective Data Objective Data Vital Signs: Vital Signs Temp Pulse Resp BP Pulse Ox O2 Del Method 97.8 F 54 L 18 139/70 H 97 Room Air 11/11/23 07:50 11/11/23 07:50 11/11/23 07:50 11/11/23 07:50 11/11/23 07:50 11/11/23 08:14 Oxygen Delivery Method Room Air Weight: 262 lb 5.601 oz Body Mass Index (BMI) 33.6 Intake & Output: Intake and Output for Last 24 Hours 11/09/23 11/10/23 11/11/23 23:59 23:59 23:59 Intake Total 3045 / 3145 150 / 150 50 / 50 Output Total 750 / 1200 925 / 925 850 / 850 Balance 2295 / 1945 -775 / -775 -800 / -800 Lab / Micro Data 11/10/23 06:57 11/10/23 06:57 Labs: Laboratory Results - last 24 hr 11/10/23 16:25: POC Glucose 169 H 11/10/23 19:47: POC Glucose 159 H 11/11/23 06:21: POC Glucose 133 H 11/11/23 11:19: POC Glucose 170 H Micro: Microbiology 11/08/23 01:58 Urine, Clean Catch Urine Culture - Final Klebsiella pneumoniae sp pneum 11/08/23 01:29 Blood Culture (Wb) - Right Forearm Blood Culture - Preliminary Staphylococcus capitis 11/08/23 05:10 Mucosa - Nasopharyngeal Respiratory Panel (PCR) - Final 11/08/23 01:58 Urine Catheter - Catheter Legionella Antigen - Final 11/08/23 01:58 Urine Catheter - Catheter Streptococcus pneumoniae Antigen (M - Final 11/08/23 01:27 Mucosa - Nose SARS-CoV-2, Influenza & RSV (PCR) - Final Physical Exam Narrative Seen and examined Patient had low-grade fever at the time of admission Tmax 101 Fahrenheit but afebrile for more than 72 hours. Heart rate and blood pressure has also normalized. Moderate oropharyngeal dysphagia. Swallow suboptimal and on modified diet. Physical exam General: Awake, oriented x3, Cooperative, cognitively slow. HEENT: Atraumatic, PERRLA, EOMI, Normocephalic Oral: Oral mucosa moist. No Gingival or Mucosal Lesions/ Ulcerations Neck: Supple, No JVD, Negative Carotid Bruits Chest wall/Lungs: Air entry diminished in bilateral lung bases. No crepitation/rhonchi. Breathing is good. Pulse ox 95% on room air Cardiovascular: Sinus rhythm, Normal S1, Normal S2, No M/G/R Abdomen: Bowel Sounds Present, Soft, Non Tender, Non-Distended : Voiding reddish urine due to Pyridium. External catheter system. No renal angle tenderness no suprapubic tenderness. Extremities: No edema, Capillary Refill Less than 3 Seconds Skin: No rashes, No breakdown Musculoskeletal: No Tenderness to Palpation of Joints or Extremities. Chronic lower extremity weakness, need 2 people assist to stand up. On wheeled walker at home Neurological: Cranial nerves II-XII grossly intact, DTR 2+/4. No acute focal neurological deficit. Psych/Mental Status: Flat affect Assessment & Plan Assessment/Plan (1) Urinary tract infection: (2) Pneumonia: (3) Acidosis, lactic: PLAN: Plan The patient is a 73 y/o M came to ED with nausea, vomiting , loose stool started 1 day before admission. Patient not able to keep anything down the stomach. Also having dry heaving. Fever 101 Fahrenheit at home. Denied chest pain or cough, shortness of breath. [place] like a spasm on perineal region with burning micturition. #1. Acute complicated UTI. Patient has SIRS criteria with mild tachycardia, tachypnea, low-grade fever Tmax 101 Fahrenheit. Lactic acidosis but no cough or shortness of breath. No evidence of endorgan damage and therefore not consistent with sepsis. Chest x-ray shows bilateral infiltrate possible atelectasis. Patient empirically on IV ceftriaxone and azithromycin. Urine culture pending. Infectious workup ordered. Patient also had diarrhea and enteric bacteriology panel and CD4 ordered but on the floor did not had bowel movement therefore not collected yet Bladder scan. Straight cath was done. Urine culture and blood cultures are pending. SIRS criteria, may be possible from hypovolemia. Normal saline 500 mL bolus given and then IV fluid normal saline +20 mEq KCl 125 mill per hour ordered. Monitor intake and output. Patient on Flomax and Azo. Urologist consulted. Renal and bladder ultrasound ordered. Prostate ultrasound ordered. 8/9: Prelim urine culture shows GNR lactose line erector apprentice and 50,000?80,000, collected in ER. Blood culture, prelim FAMILY RESOURCE MANAGEMENT PROFESSOR. It is present in 1 anaerobic bottle out of 2. Discussed with ID. No need for treatment. Empirically vancomycin that was started last night is discontinued. Urinary antigens and respiratory panel are negative. Overall urine culture was collected before the start of the antibiotic. Repeat lactic acid normal. Patient was evaluated by the urologist yesterday and advised to continue IV antibiotic. CT scan and ultrasound were done which shows enlarged prostate but no stones or hydronephrosis. It does show wall thickening of urinary bladder. 11/09: Continue IV antibiotic. Azithromycin 1 more day. Patient is overall doing good. Tachycardia, tachypnea and fever has resolved. Pyridium is discontinued. 11/10: Continue IV ceftriaxone #2. Hypertension: Continue home regimen including isosorbide, losartan with hold parameters as needed, PRN hydralazine. 11/08: Blood pressure in low normal to systolic 120s although better than before. Hold antihypertensive medications. 11/09 blood pressure 134/71. Patient on losartan and isosorbide mononitrate. 11/10: Blood pressure is in normal range. Continue above medication. Continue IV ceftriaxone for total of 5 days. #3. Hyperlipidemia: Continue home statin and icosapent regimen. #4. Diabetes mellitus type II: Hold oral home regimen, ADA diet once nausea/emesis abating, accu checks w/ ISS. 11/08: Glucoses controlled 115-150. 11/10: Glucoses relatively well-controlled. #5. Chronic thrombocytopenia: Admission platelet 110, prior baseline similar, we will continue to trend CBC and cautiously utilize chemoprophylaxis and antiplatelet therapy. Patient is tolerating enoxaparin well. Platelet counts remains similar to the previous. #6. COPD with allergic rhinitis: Not on any chronic regimen per current list, will maintain on ATC budesonide therapy, PRN albuterol, HOB, IS parameters, continue patient home cetirizine and montelukast regimen. #7. Chronic Kidney Disease Stage II : Admission BUN/creatinine 10/0.92, GFR 86 which is similar to previous, baseline creatinine noted prior primarily 0.9-1.0, stable, monitor kidney #8. Obesity: Weight loss and lifestyle changes encouraged. #9. Former tobacco use: Encourage continued tobacco cessation. #10. BPH: continue patient on Flomax regimen. Proscar was added. #11. DVT prophylaxis: Lovenox. #12. CODE STATUS: Patient denies having healthcare power of collections attorney or living will and at this time states he does not wish to give a name of someone who may be able to make decisions for him. Discussed CODE status at length including difference between FULL code, DNR-CCA and DNR-CC status. Following discussions about the differences in these status, requested DNR-CCA, no intubation. Microbiology Past 72 Hours 11/08/23 01:58 Urine, Clean Catch Urine Culture - Final Klebsiella pneumoniae sp pneum 11/08/23 01:29 Blood Culture (Wb) - Right Forearm Blood Culture - Preliminary Staphylococcus capitis 11/08/23 05:10 Mucosa - Nasopharyngeal Respiratory Panel (PCR) - Final Laboratory Results 11/10/23 16:25: POC Glucose 169 H 11/10/23 19:47: POC Glucose 159 H 11/11/23 06:21: POC Glucose 133 H 11/11/23 11:19: POC Glucose 170 H Clinical Impression(s) from Imaging Studies Chest X-Ray 11/08/23 01:19 IMPRESSION: Bibasilar atelectasis versus infiltrate, left greater than right Renal Ultrasound 11/08/23 16:13 IMPRESSION: Right renal cyst. No hydronephrosis. Enlarged prostate. Abdomen/Pelvis CT 11/08/23 17:11 IMPRESSION: Wall thickening of the urinary bladder. Enlarged prostate gland. No stones or hydronephrosis. Hepatosplenomegaly. Prior cholecystectomy. No biliary dilatation. Electronically Signed: Stepan Potts MD at 18:16 EDT , Charges/Coding Visit Charges Inpatient E&M: 04054 Subs Hosp L2
[2023-11-11] MEDS: Acetaminophen 325 MG Tablet 650 MG PO (13:22)
[2023-11-11 14:11] VITALS: BP 126/67; PULSE 60; RESP 18; TEMP 36.6; O2SAT 97
[2023-11-11 16:33] LABS: Bedside Glucose 165 mg/dL (74-106)
[2023-11-11 18:26] VITALS: PULSE 57; RESP 20
[2023-11-11 20:15] VITALS: BP 143/56; PULSE 59; RESP 18; TEMP 36.4; O2SAT 97
[2023-11-11] MEDS: Loratadine 10 MG Tablet PO (22:10)
[2023-11-11] MEDS: Atorvastatin Calcium 80 MG Tablet PO (22:11)
[2023-11-11] MEDS: Montelukast 10 MG Tablet PO (22:12)
[2023-11-11] MEDS: MELATONIN 10 MG TABLET 5 MG PO (22:12)
[2023-11-11 22:47] LABS: Bedside Glucose 165 mg/dL (74-106)
[2023-11-12 02:15] VITALS: BP 131/49; PULSE 59; RESP 18; TEMP 37.2; O2SAT 97
[2023-11-12 02:52] VITALS: BMI 33.3
[2023-11-12 06:24] LABS: Absolute Lymphocyte Count 0.77 X10^3/uL (0.83-4.51); Absolute Neutrophil Count 2.8 X10^3/uL (2.0-7.7); Basophil# 0.02 X10^3/uL; Basophil% 0.5 % (0-1); Eosinophil# 0.11 X10^3/uL; Eosinophils% 2.7 % (0-5); Hematocrit 35.5 % (40-54); Hemoglobin 12.3 g/dL (13.0-16.5); Lymphocyte # 0.77 X10^3/ul (0.83-4.51); Lymphocyte % 18.6 % (19-41); Mean Corp Hgb Conc 34.6 g/dL (32-36); Mean Corpuscular Volume 86.6 fL (80-94); Mean Platelet Vol. 8.7 fl (6.2-12.0); Monocyte# 0.45 X10^3/uL; Monocyte% 10.9 % (0-10); NRBC Flagged by Analyzer 0 % (0-5); Neutrophil # 2.76 X10^3/uL (2.7-7.7); Neutrophil % 66.8 % (47-70); Platelet Count 117 K/mm3 (150-450); RBC Distribution Width CV 11.6 % (11.6-14.6); RBC Distribution Width SD 36.7 fl (35.1-43.9); White Blood Count 4.1 K/mm3 (4.4-11.0)
[2023-11-12 06:34] LABS: Anion Gap 6 (5-15); BUN 8 mg/dL (7-18); BUN/Creat Ratio 11.4 RATIO (10-20); Calcium,Total 8.2 mg/dL (8.5-10.1); Chloride 105 mmol/L (98-107); EST Glomerular Filtration Rate 117 mL/min (>60); Est Glom Filt Rate - Afr Amer 141 mL/min (>60); Glucose 150 mg/dL (74-106); Potassium 3.6 mmol/L (3.5-5.1); Sodium Level 135 mmol/L (136-145)
[2023-11-12 06:56] LABS: Bedside Glucose 137 mg/dL (74-106)
[2023-11-12 08:00] VITALS: BP 153/75; PULSE 75; RESP 18; TEMP 36.3; O2SAT 98
[2023-11-12] MEDS: Losartan Potassium 25 MG Tablet PO (08:52)
[2023-11-12] MEDS: Tamsulosin HCl 0.4 MG Capsule 0.8 MG PO (08:52)
[2023-11-12] MEDS: Clopidogrel Bisulfate 75 MG Tablet PO (08:52)
[2023-11-12] MEDS: Isosorbide Mononitrate 30 MG Tablet PO (08:53)
[2023-11-12] MEDS: Finasteride 5 MG Tablet PO (08:53)
[2023-11-12] MEDS: Enoxaparin 40 MG/0.4 ML Syringe SC (08:54)
[2023-11-12] MEDS: Nystatin Powder 15gm Bottle 1 APPLIC TOPICAL (08:55)
[2023-11-12] MEDS: Polyethylene Glycol 3350 17 GM PACKET PO (08:55)
[2023-11-12] MEDS: Ceftriaxone 1 GM/50 ML BAG IV (09:07)
[2023-11-12] MEDS: Menthol/Lanolin/Calamine/Znox 113 GM Tube 1 APPLIC TOPICAL (09:10)
--- NOTE | 2023-11-12 10:04 | CASEMGMT ---
Addendum entered by Cynthia Tran 11/12/23 13:21: [facility] has accepted. SW and physician updated. Cynthia Tran DC Planning Asst. Original Note: Discharge Planning Updates sent to [facility]. Awaiting acceptance. Cynthia Tran DC Planning Asst.
--- NOTE | 2023-11-12 10:52 | PN.HOSP_ITS ---
Reason for Visit Reason for Visit: Diagnoses Acidosis, unspecified (11/08/23) Pneumonia, unspecified organism (11/08/23) Urinary tract infection, site not specified (11/08/23) Objective Data Objective Data Vital Signs: Vital Signs Temp Pulse Resp BP Pulse Ox O2 Del Method 99.0 F 59 L 18 131/49 H 97 Room Air 11/12/23 02:15 11/12/23 02:15 11/12/23 02:15 11/12/23 02:15 11/12/23 02:15 11/12/23 03:00 Oxygen Delivery Method Room Air Weight: 118 kg Body Mass Index (BMI) 33.3 Intake & Output: Intake and Output for Last 24 Hours 11/10/23 11/11/23 11/12/23 23:59 23:59 23:59 Intake Total 150 / 150 50 / 50 50 / 50 Output Total 925 / 925 1950 / 1950 650 / 650 Balance -775 / -775 -1900 / -1900 -600 / -600 Lab / Micro Data 11/12/23 05:46 11/12/23 05:46 Labs: Laboratory Results - last 24 hr 11/11/23 11:19: POC Glucose 170 H 11/11/23 16:12: POC Glucose 165 H 11/11/23 22:08: POC Glucose 165 H 11/12/23 05:46: WBC 4.1 L, RBC 4.10 L, Hgb 12.3 L, Hct 35.5 L, MCV 86.6, MCH 30.0, MCHC 34.6, RDW Std Deviation 36.7, RDW Coeff of Gage 11.6, Plt Count 117 L, MPV 8.7, Immature Gran % (Auto) 0.500, Neut % (Auto) 66.8, Lymph % (Auto) 18.6 L , [place] % (Auto) 10.9 H, Eos % (Auto) 2.7, Baso % (Auto) 0.5, Absolute Neuts (auto) 2.8, Absolute Lymphs (auto) 0.77 L, Nucleated RBC % 0, Sodium 135 L, Potassium 3.6, Chloride 105, Carbon Dioxide 24.0, Anion Gap 6, BUN 8, Creatinine 0.70, Estim Creat Clear Calc 110.60, Est GFR (MDRD) Af Amer 141, Est GFR (MDRD) Non-Af 117, BUN/Creatinine Ratio 11.4, Glucose 150 H, Calcium 8.2 L 11/12/23 06:34: POC Glucose 137 H Micro: Microbiology 11/08/23 01:58 Urine, Clean Catch Urine Culture - Final Klebsiella pneumoniae sp pneum 11/08/23 01:29 Blood Culture (Wb) - Right Forearm Blood Culture - Preliminary Staphylococcus capitis 11/08/23 05:10 Mucosa - Nasopharyngeal Respiratory Panel (PCR) - Final 11/08/23 01:58 Urine Catheter - Catheter Legionella Antigen - Final 11/08/23 01:58 Urine Catheter - Catheter Streptococcus pneumoniae Antigen (M - Final 11/08/23 01:27 Mucosa - Nose SARS-CoV-2, Influenza & RSV (PCR) - Final
[2023-11-12] MEDS: guaiFENesin/D-Methorphan TAB.SR.12H 2 TABLET PO (11:16)
[2023-11-12 12:26] LABS: Bedside Glucose 152 mg/dL (74-106)
--- NOTE | 2023-11-12 13:43 | PCM.TXEXTCAR ---
Diet Diet Order/Speech Therapy: 11/09/23 10:56 Diet: Carbohydrate Controlled Food consistency:: Easy to Chew Liquid Consistency:: Regular/Thin Diet Comments: Direct Sup ALL food/drink,small effortful swallow each sip,meds whole in Routine Orders/Code Status Code Status: DNRCC-A (DO NOT INTUBATE) Therapies Weight Bearing: Full weight bearing Physical Therapy: Eval and Treat Occupational Therapy: Eval and Treat Problem/Diagnosis (1) Urinary tract infection: Status: Acute Code(s): N39.0 - Urinary tract infection, site not specified (2) Pneumonia: Status: Acute Code(s): J18.9 - Pneumonia, unspecified organism (3) Acidosis, lactic: Status: Acute Code(s): E87.20 - Acidosis, unspecified Plan Patient is a 73-year-old male who presented to [facility] ED on 11/08/2023 with fevers and nausea/vomiting. Hospital course as noted below. Patient discharged to SNF at [facility] in stable condition on 11/11. 1. Acute complicated UTI with urinary retention, history of BPH with obstructive symptoms ? Urology followed. Met SIRS criteria on admission with mild tachycardia, tachypnea, fever to 101F and mild lactic acidosis but there was no endorgan damage show sepsis was ruled out. Urine culture grew 50-80 K Klebsiella pneumonia. Completed 5-day course of IV ceftriaxone while inpatient. Had some degree of urinary retention during hospitalization requiring Knight catheter placement, however Knight was removed prior to discharge and patient was urinating on his own without issue. Continue home Flomax and finasteride. 2. Acute on chronic debility ? PT/OT/case management followed. Patient stable for discharge to SNF on 11/11. 3. Moderate oropharyngeal dysphagia ? Speech therapy followed. Presented with nausea/vomiting and concern for some degree of aspiration pneumonia. He then appeared to have some aspiration while here and was made NPO. Modified barium swallow study done on 11/08 showed moderate oropharyngeal dysphagia. Patient did show improvement during hospitalization. Recommendation on discharge is for easy to chew diet with thin liquids and meds and whole applesauce, with small bites, small sips and one-to-one close supervision. 4. Concern for pneumonia ? Chest x-ray on admit showed concern for possible pneumonia in setting of nausea/vomiting with aspiration as noted above. Pneumonia workup was negative. Completed 5-day course of IV ceftriaxone as noted above. Stable on room air on discharge. Chronic medical conditions: ? Obesity: BMI 33 on admit. Complicated hospital course, care and prognosis. ? COPD with allergic rhinitis: Stable on room air, not in acute exacerbation. Continue home meds. ? Former tobacco use: Encouraged continued cessation. ? Hypertension: Continue home isosorbide mononitrate and losartan. ? Hyperlipidemia: Continue home meds. ? Type 2 diabetes mellitus: Blood sugars stable while inpatient. Continue home metformin and Tradjenta on discharge. ? Chronic thrombocytopenia: Platelets stable around 110 during hospitalization. Total clinical time spent by myself addressing the patient's medical issues, reviewing all the data, and collaborating with patient's care team: 35 minutes. Allergies/Procedures Done in Hospital Allergies No Known Allergies Allergy (Verified 11/08/23 01:04) Procedures: EKG and - (Chest x-ray, renal ultrasound, CT abdomen pelvis, modified barium swallow) Type of Care/Length of Stay Estimated LOS: Convalescent Care Less Than 30 days Type of Care Needed: Skilled Rehab Potential: Fair Prognosis: Fair Additional Orders/Day of Discharge H&P will serve as current which was dated: 11/08/23 Day of Discharge: 11/12/23 Dietary and Speech Recommendations Dietitian Recommendations/Changes: ADAT to 2200CCD diet to manage blood sugars. Discharge Plan Admission Admit Date/Time: 11/08/23 02:31 Primary Reason for Your Visit: fevers and nausea/vomiting Attending Provider: Deniz Cooper Primary Care Provider: Jessica Alvarez IRONER MACHINE Consulting Providers: Bridgett Villagomez; Kaushik Bryant; Mark Anthony Guzman Discharge Orders/Prescriptions Prescriptions: New finasteride 5 mg Tablet 5 mg PO DAILY Qty: 0 0RF Continued atorvastatin 80 mg tablet 80 mg PO QHS cetirizine 5 mg tablet 5 mg PO QHS Patient Comments: 1 TABLET BY MOUTH ATIBEDTIME DX: / NURSE TO REORDER clopidogrel 75 mg tablet 75 mg PO DAILY isosorbide mononitrate 30 mg tablet extended release 24 hr 30 mg PO DAILY losartan 25 mg tablet 25 mg PO DAILY melatonin 5 mg tablet 5 mg PO QHS metformin 500 mg tablet 500 mg PO BID montelukast 10 mg tablet 10 mg PO QHS polyethylene glycol 3350 [Gavilax] 17 gram/dose powder 17 g PO .EVERY OTHER DAY Patient Comments: 17 GRAMS DISSOLVED INILIQUID EVERY OTHER DAY FOR CONSTIPATION HOLD FOR DIARRHEA, CALL MD IF NO BM IN 24 HRS tamsulosin 0.4 mg capsule 0.8 mg PO DAILY Tradjenta 5 mg tablet 5 mg PO DAILY icosapent ethyl [Vascepa] 1 gram capsule 2 g PO BID cholecalciferol (vitamin D3) [Vitamin D3] 125 mcg (5,000 unit) tablet 5,000 unit PO QWEEK Referrals / Follow Up: Jessica Alvarez IRONER MACHINE, IRONER MACHINE-C [Primary Care Provider] - Disposition Disposition (needs filled in before D/C Order can be placed): Shelter Facility
--- NOTE | 2023-11-12 13:43 | PCM.DC.SUM ---
Providers Date of Admission: 11/08/23 Date of Discharge: 11/12/23 Primary Care Physician: TARI Edwards Consultations 11/08/23 16:02 Consult: Urology Routine Consulting Provider: Kaushik Bryant Reason for Consult: urinary spasm, urine retention EMERGENT Consult: No MD Notified: Yes Date Notified: 11/08/23 Time Notified: 16:02 Method of Notification: Verbal Reason For Visit: COMPLICATED UTI PNA Diagnosis Discharge Diagnosis (1) Urinary tract infection: Status: Acute Code(s): N39.0 - Urinary tract infection, site not specified (2) Pneumonia: Status: Acute Code(s): J18.9 - Pneumonia, unspecified organism (3) Acidosis, lactic: Status: Acute Code(s): E87.20 - Acidosis, unspecified Medications at Discharge Home Medications atorvastatin 80 mg tablet 80 mg PO QHS cholesterol 11/08/22 cetirizine 5 mg tablet 5 mg PO QHS allergies 11/08/22 cholecalciferol (vitamin D3) 125 mcg (5,000 unit) tablet (Vitamin D3) 5,000 unit PO QWEEK vitamin 11/08/22 clopidogrel 75 mg tablet 75 mg PO DAILY anti platelet 11/08/22 icosapent ethyl 1 gram capsule (Vascepa) 2 g PO BID triglycerides 11/08/22 isosorbide mononitrate 30 mg tablet,extended release 24 hr 30 mg PO DAILY heart 11/08/22 linagliptin 5 mg tablet (Tradjenta) 5 mg PO DAILY diabetes 11/08/22 losartan 25 mg tablet 25 mg PO DAILY blood pressure 11/08/22 melatonin 5 mg tablet 5 mg PO QHS sleep 11/08/22 metformin 500 mg tablet 500 mg PO BID diabetes 11/08/22 montelukast 10 mg tablet 10 mg PO QHS allergies 11/08/22 polyethylene glycol 3350 17 gram/dose oral powder (Gavilax) 17 g PO .EVERY OTHER DAY constipation 11/08/22 tamsulosin 0.4 mg capsule 0.8 mg PO DAILY prostate 11/08/22 finasteride 5 mg tablet 5 mg PO DAILY #0 tabs 11/12/23 Hospital Course Operations None Procedures EKG, Modified Barium Swallow and - (Chest x-ray, renal ultrasound, CT abdomen pelvis) Summary of Care Provided Minutes Spent on Discharge: 35 Hospital Course: Patient is a 73-year-old male who presented to [facility] ED on 11/08/2023 with fevers and nausea/vomiting. Hospital course as noted below. Patient discharged to SNF at [facility] in stable condition on 11/11. 1. Acute complicated UTI with urinary retention, history of BPH with obstructive symptoms ? Urology followed. Met SIRS criteria on admission with mild tachycardia, tachypnea, fever to 101F and mild lactic acidosis but there was no endorgan damage show sepsis was ruled out. Urine culture grew 50-80 K Klebsiella pneumonia. Completed 5-day course of IV ceftriaxone while inpatient. Had some degree of urinary retention during hospitalization requiring Knight catheter placement, however Knight was removed prior to discharge and patient was urinating on his own without issue. Continue home Flomax and finasteride. 2. Acute on chronic debility ? PT/OT/case management followed. Patient stable for discharge to SNF on 11/11. 3. Moderate oropharyngeal dysphagia ? Speech therapy followed. Presented with nausea/vomiting and concern for some degree of aspiration pneumonia. He then appeared to have some aspiration while here and was made NPO. Modified barium swallow study done on 11/08 showed moderate oropharyngeal dysphagia. Patient did show improvement during hospitalization. Recommendation on discharge is for easy to chew diet with thin liquids and meds and whole applesauce, with small bites, small sips and one-to-one close supervision. 4. Concern for pneumonia ? Chest x-ray on admit showed concern for possible pneumonia in setting of nausea/vomiting with aspiration as noted above. Pneumonia workup was negative. Completed 5-day course of IV ceftriaxone as noted above. Stable on room air on discharge. Chronic medical conditions: ? Obesity: BMI 33 on admit. Complicated hospital course, care and prognosis. ? COPD with allergic rhinitis: Stable on room air, not in acute exacerbation. Continue home meds. ? Former tobacco use: Encouraged continued cessation. ? Hypertension: Continue home isosorbide mononitrate and losartan. ? Hyperlipidemia: Continue home meds. ? Type 2 diabetes mellitus: Blood sugars stable while inpatient. Continue home metformin and Tradjenta on discharge. ? Chronic thrombocytopenia: Platelets stable around 110 during hospitalization. Total clinical time spent by myself addressing the patient's medical issues, reviewing all the data, and collaborating with patient's care team: 35 minutes. Physical Exam Const alert and no apparent distress Constitutional Narrative: Elderly male, obese, mildly fatigued appearing, otherwise laying comfortably in bed, conversing normally, in no acute distress. General Appearance: cooperative and comfortable HEENT normocephalic, head/scalp atraumatic, hearing grossly normal bilaterally, nasal mucous membranes and turbinates normal and moist oral mucous membranes Eyes PERRL, EOMs intact bilaterally and conjunctivae normal Neck full ROM, no lymphadenopathy and supple Lymph Lymphatic: no lymphadenopathy noted Chest inspection of chest normal Resp normal respiratory effort, normal air movement, no use of accessory muscles and clear to auscultation bilaterally Cardio regular rate, regular rhythm, no murmurs and peripheral pulses 2+ throughout GI normal to inspection, nondistended, normoactive bowel sounds, soft to palpation, non-tender and non-distended Back/Spine normal ROM Extremity normal to inspection, full ROM and no pedal edema Skin no rashes or lesions noted Neuro moves all extremities and no focal motor deficits Speech: speech normal Psych mental status grossly normal Weight / BMI Weight Weight: 118 kg Body Mass Index (BMI) 33.3 ABG / Lab / Microbiology Data 11/12/23 05:46 11/12/23 05:46 Laboratory: Laboratory Results - last 24 hr 11/11/23 16:12: POC Glucose 165 H 11/11/23 22:08: POC Glucose 165 H 11/12/23 05:46: WBC 4.1 L, RBC 4.10 L, Hgb 12.3 L, Hct 35.5 L, MCV 86.6, MCH 30.0, MCHC 34.6, RDW Std Deviation 36.7, RDW Coeff of Gage 11.6, Plt Count 117 L, MPV 8.7, Immature Gran % (Auto) 0.500, Neut % (Auto) 66.8, Lymph % (Auto) 18.6 L, [place] % (Auto) 10.9 H, Eos % (Auto) 2.7, Baso % (Auto) 0.5, Absolute Neuts (auto) 2.8, Absolute Lymphs (auto) 0.77 L, Nucleated RBC % 0, Sodium 135 L, Potassium 3.6, Chloride 105, Carbon Dioxide 24.0, Anion Gap 6, BUN 8, Creatinine 0.70, Estim Creat Clear Calc 110.60, Est GFR (MDRD) Af Amer 141, Est GFR (MDRD) Non-Af 117, BUN/Creatinine Ratio 11.4, Glucose 150 H, Calcium 8.2 L 11/12/23 06:34: POC Glucose 137 H 11/12/23 12:09: POC Glucose 152 H Microbiology: Microbiology 11/08/23 01:58 Urine, Clean Catch Urine Culture - Final Klebsiella pneumoniae sp pneum 11/08/23 01:29 Blood Culture (Wb) - Right Forearm Blood Culture - Preliminary Staphylococcus capitis 11/08/23 05:10 Mucosa - Nasopharyngeal Respiratory Panel (PCR) - Final 11/08/23 01:58 Urine Catheter - Catheter Legionella Antigen - Final 11/08/23 01:58 Urine Catheter - Catheter Streptococcus pneumoniae Antigen (M - Final 11/08/23 01:27 Mucosa - Nose SARS-CoV-2, Influenza & RSV (PCR) - Final Meaningful Use Info Meaningful Use Meaningful Use Diagnoses (Choose all that apply): None applicable Ischemic Stroke Statin Dosing Therapy Reference: STATIN DOSE THERAPY REFERENCE: * Patients > 75 years receive moderate or high dose statin therapy. * Patients 75 years or YOUNGER should receive HIGH intensity statin dose unless contraindicated. You will be required to document reason for non-treatment if statin daily dose does not meet guidelines. HIGH DOSE STATIN THERAPY DAILY Atorvastatin > than or = to 40 mg Rosuvastatin > than or = to 20 mg Amlodipine + Atorvastatin > than or = to 2.5/40 mg Ezetimibe + Simvastatin 10/80 mg Simvastatin 80mg Discharge Plan Admission Admit Date/Time: 11/08/23 02:31 Primary Reason for Your Visit: fevers and nausea/vomiting Attending Provider: Deniz Cooper Primary Care Provider: Jessica Alvarez [employer]ARDWO[employer] FLOOR REFINISHER Consulting Providers: Bridgett Villagomez; Kaushik Bryant; Mark Anthony Guzman Discharge Orders/Prescriptions Prescriptions: New finasteride 5 mg Tablet 5 mg PO DAILY Qty: 0 0RF Continued atorvastatin 80 mg tablet 80 mg PO QHS cetirizine 5 mg tablet 5 mg PO QHS Patient Comments: 1 TABLET BY MOUTH ATIBEDTIME DX: / NURSE TO REORDER clopidogrel 75 mg tablet 75 mg PO DAILY isosorbide mononitrate 30 mg tablet extended release 24 hr 30 mg PO DAILY losartan 25 mg tablet 25 mg PO DAILY melatonin 5 mg tablet 5 mg PO QHS metformin 500 mg tablet 500 mg PO BID montelukast 10 mg tablet 10 mg PO QHS polyethylene glycol 3350 [Gavilax] 17 gram/dose powder 17 g PO .EVERY OTHER DAY Patient Comments: 17 GRAMS DISSOLVED INILIQUID EVERY OTHER DAY FOR CONSTIPATION HOLD FOR DIARRHEA, CALL MD IF NO BM IN 24 HRS tamsulosin 0.4 mg capsule 0.8 mg PO DAILY Tradjenta 5 mg tablet 5 mg PO DAILY icosapent ethyl [Vascepa] 1 gram capsule 2 g PO BID cholecalciferol (vitamin D3) [Vitamin D3] 125 mcg (5,000 unit) tablet 5,000 unit PO QWEEK Referrals / Follow Up: Jessica Alvarez HARDWO[employer] FLOOR REFINISHER, H[employer] FLOOR REFINISHER-C [Primary Care Provider] - Disposition Disposition (needs filled in before D/C Order can be placed): Long-Term Facility Charges/Coding Visit Charges Inpatient E&M: 70967 Disch Hosp >30min
[2023-11-12 14:02] VITALS: BP 144/72; PULSE 72; RESP 14; TEMP 36.8; O2SAT 97
--- NOTE | 2023-11-12 14:34 | CASEMGMT ---
Addendum entered by Amy Portillo 11/12/23 14:55: SW called NICOLASA Harvey CM and sent d/c via fax. JACEY Izquierdo Original Note: Social Work- Precert has been obtained.? Physician updated and pt is ready for discharge today.? 7000 convalescent form completed in [facility] and sent along with discharge orders to Bina Javed via [facility].? Pt and bedside nurse notified of discharge time. Sarah Jefferson, D[facility] Home advised as well. Disposition:[facility]?, skilled level of care under convalescent stay. JACEY Izquierdo
--- NOTE | 2023-11-12 14:52 | CASEMGMT ---
Discharge Planning Discharge orders, signed med list, and transport time [facility] Physicians will transport patient by wheelchair at 3:15p. Nursing, SW, and patient updated. Cynthia Tran DC Planning Asst.
[2023-11-12 14:54] VITALS: BP 144/72; PULSE 72; RESP 14; TEMP 36.8; O2SAT 97
--- NOTE | 2023-11-12 15:46 | PHA.DC.MR.R ---
Pharmacy [place] Med Reconciliation Pharmacy Service has performed discharge medication reconciliation for this patient. The patient's discharge medication list was reviewed for discrepancies and discrepancies were resolved. Medications at Discharge Home Medications atorvastatin 80 mg tablet 80 mg PO QHS cholesterol 11/08/22 cetirizine 5 mg tablet 5 mg PO QHS allergies 11/08/22 cholecalciferol (vitamin D3) 125 mcg (5,000 unit) tablet (Vitamin D3) 5,000 unit PO QWEEK vitamin 11/08/22 clopidogrel 75 mg tablet 75 mg PO DAILY anti platelet 11/08/22 icosapent ethyl 1 gram capsule (Vascepa) 2 g PO BID triglycerides 11/08/22 isosorbide mononitrate 30 mg tablet,extended release 24 hr 30 mg PO DAILY heart 11/08/22 linagliptin 5 mg tablet (Tradjenta) 5 mg PO DAILY diabetes 11/08/22 losartan 25 mg tablet 25 mg PO DAILY blood pressure 11/08/22 melatonin 5 mg tablet 5 mg PO QHS sleep 11/08/22 metformin 500 mg tablet 500 mg PO BID diabetes 11/08/22 montelukast 10 mg tablet 10 mg PO QHS allergies 11/08/22 polyethylene glycol 3350 17 gram/dose oral powder (Gavilax) 17 g PO .EVERY OTHER DAY constipation 11/08/22 tamsulosin 0.4 mg capsule 0.8 mg PO DAILY prostate 11/08/22 finasteride 5 mg tablet 5 mg PO DAILY #0 tabs 11/12/23
== END 2023-11-12 16:49 | disposition skilled nursing facility (03) | DRG 690 ==
LOC: ED 02:36 → MS3 02:45
PROVIDERS: Internal Medicine; Admitting Provider Family Medicine; Emergency Provider Emergency Medicine; PCP Nurse Practitioner Adult Health; Visit Provider Hospitalist
DX: N39.0 Urinary tract infection, site not specified (principal); D69.6 Thrombocytopenia, unspecified; E11.22 Type 2 diabetes mellitus with diabetic chronic kidney disease; E66.9 Obesity, unspecified; E78.5 Hyperlipidemia, unspecified; B96.1 Klebsiella pneumoniae [K. pneumoniae] as the cause of diseases classified elsewhere; J44.9 Chronic obstructive pulmonary disease, unspecified; I12.9 Hypertensive chronic kidney disease with stage 1 through stage 4 chronic kidney disease, or unspecified chronic kidney disease; E86.1 Hypovolemia; N18.2 Chronic kidney disease, stage 2 (mild); N13.8 Other obstructive and reflux uropathy; Z87.891 Personal history of nicotine dependence; Z79.02 Long term (current) use of antithrombotics/antiplatelets; Z79.84 Long term (current) use of oral hypoglycemic drugs; Z68.33 Body mass index [BMI] 33.0-33.9, adult; Z79.899 Other long term (current) drug therapy; Z90.49 Acquired absence of other specified parts of digestive tract; N40.1 Benign prostatic hyperplasia with lower urinary tract symptoms; R13.12 Dysphagia, oropharyngeal phase
CPT/HCPCS: 36415; 71046; 74177; 74230; 76770; 80048; 80053; 81001; 82962; 83605; 85025; 87040; 87077; 87086; 87088; 87186; 87449; 87631; 87633; 87641; 92526; 92610; 92611; 94640; 94668; 97110; 97116; 97162; 97166; 97530; 97535; 97802; 99284; J7030; J7040; J7050; Q9967; A4216; J0696; J2405

== ENCOUNTER 2024-05-15 05:35 | Emergency (ER) | payer OTHER, MEDICARE, MEDICAID, SELFPAY ==
[2024-05-15 05:37] VITALS: BP 130/82; PULSE 98; RESP 18; TEMP 37.9; O2SAT 95; BMI 34.6
--- NOTE | 2024-05-15 05:49 | EX.ED.DYSGE1 ---
HPI History of Present Illness Chief Complaint: Fever Detail of Chief Complaint: 3 to 4-day history of cough with fevers. No vomiting or diarrhea. Informant: patient Onset/Context/Timing Onset: Days Context: Gradual Onset Timing: Continuous Current Severity: Mild Maximum Severity: Mild Narrative Narrative: 73-year-old male history of diabetes, CKD and COPD. States he lives alone at home. Says he has not felt well for 3 to 4 days started maybe around Sunday evening. Said a cough of clear phlegm. No vomiting or diarrhea. No dysuria. Mild sore throat. He has been able to drink fluids. Denies any recent exposure. Prior similar symptoms: Yes Recent Illness/[facility]: [facility] Medical History Adult failure to thrive Obesity Allergic rhinitis CKD (chronic kidney disease), stage II Former tobacco use COPD (chronic obstructive pulmonary disease) BPH (benign prostatic hyperplasia) Hyperlipemia HTN (hypertension) Diabetes Home Medications ?Medication ?Instructions ?Recorded ?Last Taken ?Type atorvastatin 80 mg tablet 80 mg PO QHS cholesterol 11/08/22 Unknown History cetirizine 5 mg tablet 5 mg PO QHS allergies 11/08/22 Unknown History cholecalciferol (vitamin D3) 125 5,000 unit PO QWEEK vitamin 11/08/22 Unknown History mcg (5,000 unit) tablet (Vitamin D3) clopidogrel 75 mg tablet 75 mg PO DAILY anti platelet 11/08/22 11/08/22 History icosapent ethyl 1 gram capsule 2 g PO BID triglycerides 11/08/22 Unknown History (Vascepa) isosorbide mononitrate 30 mg 30 mg PO DAILY heart 11/08/22 Unknown History tablet,extended release 24 hr linagliptin 5 mg tablet (Tradjenta) 5 mg PO DAILY diabetes 11/08/22 Unknown History losartan 25 mg tablet 25 mg PO DAILY blood pressure 11/08/22 Unknown History melatonin 5 mg tablet 5 mg PO QHS sleep 11/08/22 Unknown History metformin 500 mg tablet 500 mg PO BID diabetes 11/08/22 Unknown History montelukast 10 mg tablet 10 mg PO QHS allergies 11/08/22 Unknown History polyethylene glycol 3350 17 17 g PO .EVERY OTHER DAY 11/08/22 Unknown History gram/dose oral powder (Gavilax) constipation tamsulosin 0.4 mg capsule 0.8 mg PO DAILY prostate 11/08/22 Unknown History finasteride 5 mg tablet 5 mg PO DAILY #0 tabs 11/12/23 Unknown Rx Allergy/AdvReac Type Severity Reaction Status Date / Time No Known Allergies Allergy Verified 05/15/24 05:36 Family History Mother Diabetes Cancer Father Diabetes Cancer Surgical History History of herniorrhaphy Hx of cholecystectomy Hx of appendectomy Social History housing: assisted living facility Smoking Status: Former smoker alcohol intake: never substance use type: does not use ROS ROS ED ROS Narrative Fever and cough. Constitutional Constitutional ED: Reports fever(s); Denies chills Eyes Eyes: Denies blurry vision ENT ENT ED: Reports sore throat; Denies ear pain Cardiovascular Cardiovascular: Denies chest pain Respiratory/Chest Respiratory/Chest: Reports cough and sputum; Denies dyspnea Gastrointestinal Gastrointestinal: Denies abdominal pain Genitourinary Genitourinary ED: Denies dysuria or hematuria Musculoskeletal Musculoskeletal: Reports myalgias; Denies arthralgias Integumentary Denies abscess Neurologic Neurologic: Denies headache(s) or paresthesias Psychiatric Psychiatric: Denies anxiety or depression Endocrine Endocrinology: Denies cold intolerance Hematologic/Lymphatic Hematologic/Lymphatic: Reports none Allergic/Immunologic Allergic/Immunologic ED: Denies mouth swelling, tongue swelling or urticaria EXAM Physical Exam Narrative Exam Narrative: 73-year-old male no acute distress vital signs are stable he is a low-grade temperature 100.3. He does not look septic or toxic. Pulse ox 95% on room air no hypoxia. H EENT exam pupils round reactive light. Dry mucous membranes. Posterior pharynx unremarkable. No trouble swallowing or breathing. Neck nontender no JVD. No lymphadenopathy. No meningismus. Lungs clear to auscultation bilaterally. Dry cough. No rales, rhonchi or wheezing. Equal symmetrical. Heart regular rhythm rate about 98 no murmur. Chest wall ribs nontender. Abdomen soft nontender. No peritoneal signs. Moving all 4 extremities. Nontender. No rashes. Normal strength. No edema. Back nontender. Neurologically is awake alert no focal motor deficits. Answering questions following commands. Exam is consistent with a viral syndrome. Const Vital Signs: 05/15/24 05:37 Temperature 100.3 F H Temperature Source Oral Pulse Rate 98 Respiratory Rate 18 Blood Pressure 130/82 H Blood Pressure Mean 98 Pulse Ox 95 Oxygen Delivery Method Room Air Positive well nourished, well developed and obese; Negative for cachectic, contractures or unkempt General Appearance ED: well developed and NAD; Negative for unkempt, cachectic, contractures, cyanotic, diaphoretic or pallor Nutritional Appearance: obese; Negative for cachectic HEENT Reports dry mucous membranes; Denies moist mucous membranes Negative for trauma or tenderness Mouth ED: Yes dry mucous membranes Mouth: dry mucous membranes Eyes PERRL and EOMs intact bilaterally General Eye ED: Negative for pale conjunctiva or scleral icterus Neck no lymphadenopathy, supple and no JVD General: Negative for tenderness Lymph Lymphatic: Negative for other Chest Wall inspection of chest normal and palpation of chest normal Resp normal respiratory effort and clear to auscultation bilaterally Effort and Inspection: Negative for retractions Auscultation: Negative for rales, rhonchi, wheezes or diminished lung sounds Cardio regular rate, regular rhythm, S1 normal heart sound, S2 normal heart sound and no murmurs Rate: Negative for bradycardia or tachycardic Rhythm: Negative for abnormal rhythm GI normal to inspection, nondistended, normoactive bowel sounds, non-tender, non-distended and no masses Palpation: soft; Negative for tender, guarding, mass or rebound tenderness present Back/Spine no CVA tenderness General Back: Negative for CVA tenderness Cervical Spine: Negative for cervical spine tenderness Thoracic Spine / Upper Back: Negative for thoracic spinal tenderness or paraspinal muscle tenderness Lumbar Spine / Lower Back: Negative for lumbar spinal tenderness Extremity normal to inspection General Extremety ED: Negative for edema, tenderness or other findings General Extremity: Negative for edema or other findings Neuro oriented x3 and CN's II-XII intact bilaterally Sensorium / Orientation: alert; Negative for orientation impaired, lethargic or stuporous Motor Exam: strength 5/5 throughout Psych mental status grossly normal Appearance: Negative for unkempt Attitude: No agitated Mood & Affect: Negative for depressed, anxious or tearful Skin no rashes or lesions noted and no wounds General Skin Exam: Negative for jaundice or pallor Lesions: No lesion noted Rashes: No rashes noted Trauma: Negative for abrasion Wounds: Negative for wounds noted MDM MDM MDM Narrative Medical decision making narrative: 73-year-old male with cough and fever suspect viral syndrome possibly influenza rule out pneumonia. Screening labs. Chest x-ray. Tylenol for low-grade fever and IV fluids for mild dehydration. Repeat exam patient is doing well at 6:55 AM. Will be treated his COVID. He has had symptoms for 3 days. COVID discharged home. Fluids and rest. Symptomatic treatment with Tylenol. Follow-up with his doctor as needed. History & Record Review Discussion w/independent historian: Patient Additional record(s) reviewed:: Prior inpatient record, Prior outpatient record, Prior ED visit and Prior labs Lab Data Attestation: I reviewed the patient's lab results. Lab results narrative: CBC unremarkable. White count of 6. H&H 14 and 41. Platelets 91. Consistent with prior labs. Electrolytes show a gap 11. Normal BUN and creatinine 11 and 1. Glucose 188. COVID is positive. Flu is negative. Labs: Laboratory Results - last 24 hr 05/15/24 05:53 WBC 6.6 RBC 4.73 Hgb 14.7 Hct 41.3 MCV 87.3 MCH 31.1 MCHC 35.6 RDW Std Deviation 39.5 RDW Coeff of Gage 12.3 Plt Count 91 L MPV 9.3 Immature Gran % (Auto) 0.500 Neut % (Auto) 86.8 H Lymph % (Auto) 6.5 L [place] % (Auto) 4.6 Eos % (Auto) 1.1 Baso % (Auto) 0.5 Absolute Neuts (auto) 5.7 Absolute Lymphs (auto) 0.43 L Nucleated RBC % 0 Sodium 137 Potassium 3.6 Chloride 104 Carbon Dioxide 22.0 Anion Gap 11 BUN 11 Creatinine 1.06 Estim Creat Clear Calc 84.96 Est GFR (MDRD) Af Amer 88 Est GFR (MDRD) Non-Af 73 BUN/Creatinine Ratio 10.4 Glucose 188 H Calcium 8.5 Radiography Chest X-Ray - ED: 2 View, Read by ED Physician, Read by Radiologist, Normal, Heart, Lungs, Mediastinum, Bony Structures, No Acute Disease and Chronic Changes Diagnostic Testing: Clinical Impression(s) from Imaging Studies Chest X-Ray 05/15/24 06:10 IMPRESSION: NEGATIVE CHEST Reading Location: [facility] Chest x-ray, 2 views, AP and lateral, interpreted by myself shows no acute abnormality. Chronic changes. Normal cardiac silhouette. No pneumonia Discharge Plan Triage Chief Complaint: Fever ED Provider: Clayton Casper Dx/Rx/DC Orders Clinical Impression: Fever, Viral syndrome, History of diabetes mellitus, COVID Instructions: Human Coronaviruses, ED Fever Control (Adult) Prescriptions: No Action atorvastatin 80 mg tablet 80 mg PO QHS cetirizine 5 mg tablet 5 mg PO QHS Patient Comments: 1 TABLET BY MOUTH ATIBEDTIME DX: / NURSE TO REORDER clopidogrel 75 mg tablet 75 mg PO DAILY isosorbide mononitrate 30 mg tablet extended release 24 hr 30 mg PO DAILY losartan 25 mg tablet 25 mg PO DAILY melatonin 5 mg tablet 5 mg PO QHS metformin 500 mg tablet 500 mg PO BID montelukast 10 mg tablet 10 mg PO QHS polyethylene glycol 3350 [Gavilax] 17 gram/dose powder 17 g PO .EVERY OTHER DAY Patient Comments: 17 GRAMS DISSOLVED INILIQUID EVERY OTHER DAY FOR CONSTIPATION HOLD FOR DIARRHEA, CALL MD IF NO BM IN 24 HRS tamsulosin 0.4 mg capsule 0.8 mg PO DAILY Tradjenta 5 mg tablet 5 mg PO DAILY icosapent ethyl [Vascepa] 1 gram capsule 2 g PO BID cholecalciferol (vitamin D3) [Vitamin D3] 125 mcg (5,000 unit) tablet 5,000 unit PO QWEEK finasteride 5 mg Tablet 5 mg PO DAILY Qty: 0 0RF Primary Care Provider: Jessica Alvarez MEDICAL REVIEW SPECIALIST Referrals: Jessica Alvarez MEDICAL REVIEW SPECIALIST, MEDICAL REVIEW SPECIALIST-C [Primary Care Provider] - 3-5 Days if not improving Activity Restrictions/Additional Instructions: You have COVID. Your blood work and chest x-ray look good. Plenty of fluids and rest. Tylenol every 4-6 hours for your fever. Follow-up with your primary care provider if not improving or return if worse. Print Language: Finnish Disposition Disposition: Home, Self Care
[2024-05-15] MEDS: 0.9% Normal Saline (1000mL) 1,000 ML 1000 ML IV (05:52)
[2024-05-15] MEDS: Acetaminophen 500 MG Tablet 1000 MG PO (05:53)
[2024-05-15 06:03] LABS: Absolute Lymphocyte Count 0.43 X10^3/uL (0.83-4.51); Absolute Neutrophil Count 5.7 X10^3/uL (2.0-7.7); Basophil# 0.03 X10^3/uL; Basophil% 0.5 % (0-1); Eosinophil# 0.07 X10^3/uL; Eosinophils% 1.1 % (0-5); Hematocrit 41.3 % (40-54); Hemoglobin 14.7 g/dL (13.0-16.5); Lymphocyte # 0.43 X10^3/ul (0.83-4.51); Lymphocyte % 6.5 % (19-41); Mean Corp Hgb Conc 35.6 g/dL (32-36); Mean Corpuscular Hgb 31.1 pg (27.0-32.0); Mean Corpuscular Volume 87.3 fL (80-94); Mean Platelet Vol. 9.3 fl (6.2-12.0); Monocyte% 4.6 % (0-10); NRBC Flagged by Analyzer 0 % (0-5); Neutrophil # 5.71 X10^3/uL (2.7-7.7); Neutrophil % 86.8 % (47-70); POSITIVE COUNT YES; POSITIVE DIFFERENTIAL YES; Platelet Count 91 K/mm3 (150-450); RBC Distribution Width CV 12.3 % (11.6-14.6); RBC Distribution Width SD 39.5 fl (35.1-43.9); Red Blood Count 4.73 M/mm3 (4.6-6.2); White Blood Count 6.6 K/mm3 (4.4-11.0)
[2024-05-15 06:09] LABS: Differential Indicated SCAN CRITERIA MET
--- NOTE | 2024-05-15 06:10 | RAD_ITS ---
PROCEDURE: CHEST PA AND LATERAL REASON FOR EXAM: 73-year-old male, fever, cough and weakness. TECHNIQUE: Frontal and lateral views of the chest. COMPARISON: Chest radiographs 11/08/2023. FINDINGS: The heart size is normal. The mediastinal contour is unremarkable. Bibasilar atelectasis. No focal consolidation, pleural effusion or pneumothorax. Degenerative changes are identified within the thoracic spine. RAD/Chest PA and Lateral IMPRESSION: NEGATIVE CHEST Reading Location: [id number]
[2024-05-15 06:14] LABS: Anion Gap 11 (5-15); BUN 11 mg/dL (7-18); BUN/Creat Ratio 10.4 RATIO (10-20); Calcium,Total 8.5 mg/dL (8.5-10.1); Chloride 104 mmol/L (98-107); Creatinine, Serum 1.06 mg/dL (0.70-1.30); EST Glomerular Filtration Rate 73 mL/min (>60); Est Glom Filt Rate - Afr Amer 88 mL/min (>60); Estimated Creatinine Clearance 84.96 ml/min; Glucose 188 mg/dL (74-106); Potassium 3.6 mmol/L (3.5-5.1); Sodium Level 137 mmol/L (136-145)
[2024-05-15 07:30] LABS: Platelet Estimate SLT DEC (ADEQ)
[2024-05-15 07:40] VITALS: BP 156/74; PULSE 91; RESP 18; TEMP 36.5; O2SAT 98
[2024-05-15 09:00] VITALS: BP 158/98; PULSE 84; O2SAT 99
== END 2024-05-15 09:40 | disposition home or self-care (01) ==
PROVIDERS: Emergency Provider Emergency Medicine; PCP Nurse Practitioner Adult Health; Visit Provider Emergency Medicine
DX: U07.1 COVID-19 (principal); J44.9 Chronic obstructive pulmonary disease, unspecified; E11.22 Type 2 diabetes mellitus with diabetic chronic kidney disease; R50.9 Fever, unspecified; I12.9 Hypertensive chronic kidney disease with stage 1 through stage 4 chronic kidney disease, or unspecified chronic kidney disease; N18.2 Chronic kidney disease, stage 2 (mild); E86.0 Dehydration; B34.9 Viral infection, unspecified; E78.5 Hyperlipidemia, unspecified; Z87.891 Personal history of nicotine dependence; Z79.899 Other long term (current) drug therapy; Z79.84 Long term (current) use of oral hypoglycemic drugs; N40.0 Benign prostatic hyperplasia without lower urinary tract symptoms; Z90.49 Acquired absence of other specified parts of digestive tract
CPT/HCPCS: 71046; 80048; 85025; 87631; 96360; 96361; 99284; A4216

== ENCOUNTER 2025-02-13 19:54 | Emergency (ER) | payer OTHER, SELFPAY ==
[2025-02-13 19:54] VITALS: BP 159/124; PULSE 87; RESP 14; TEMP 36.8; O2SAT 98
--- NOTE | 2025-02-13 21:22 | CT_ITS ---
PROCEDURE: SPINE CERVICAL WITHOUT CONTRAS 02/13/2025 REASON FOR EXAM: FALL, HIT HEAD TECHNIQUE: Procedure Code: CTS Modality: CT Procedure: SPINE CERVICAL WITHOUT CONTRAS Coronal and Sagittal reconstruction series were provided. One or more dose reduction techniques were used (e.g., Automated exposure control, adjustment of the mA and/or kV according to patient size, use of iterative reconstruction technique. RADIATION DOSE SUMMARY: CTDlvol: 44.99; 26.38; 29.3 a; 29.38; 29.38 mGy DLP: 3219.88 mGycm COMPARISON: CT brain today FINDINGS: Alignment: Within normal limits Vertebrae: Vertebral body heights are intact. Mild multilevel degenerative disc disease and endplate spondylosis. Soft Tissues: No prevertebral soft tissue swelling. Other: Endplate changes and small disc osteophyte complexes, but no significant central canal or neural foraminal stenosis CT/Spine Cervical without Contras IMPRESSION: Degenerative disc disease and endplate spondylosis. No fracture or subluxation identified. Reading Location: [id number]
--- NOTE | 2025-02-13 21:22 | CT_ITS ---
PROCEDURE: SINUS/FACIAL BONE 02/13/2025 REASON FOR EXAM: RIGHT MIDFACE LAC, HIT HEAD TECHNIQUE: Procedure Code: CTSI Modality: CT Procedure: SINUS/FACIAL BONE Coronal and Sagittal reconstruction series were provided. One or more dose reduction techniques were used (e.g., Automated exposure control, adjustment of the mA and/or kV according to patient size, use of iterative reconstruction technique). RADIATION DOSE SUMMARY: 44.99; 26.38; 29.3 a; 29.38; 29.38 mGy DLP: 3219.88 mGycm FINDINGS: Frontal: Clear Ethmoid: Scattered mild mucosal thickening. Sphenoid: Clear Maxillary: No maxillary sinus wall fracture appreciated. In the subcutaneous fat overlying the right maxillary sinus/right cheek there is soft tissue stranding/edema, likely hematoma Turbinates: Unremarkable Nasal Septum: Leftward convex deviation of nasal septum. Mastoids/Middle Ears: Clear CT/Sinus/Facial Bone IMPRESSION: Mild scattered size disease previous sinuplasty of the left maxillary sinus. S maller medial wall defect in the right maxillary sinus. No acute fractures appreciated. Reading Location[facility]
--- NOTE | 2025-02-13 21:22 | CT_ITS ---
PROCEDURE: BRAIN/HEAD WITHOUT CONTRAST 02/13/2025 REASON FOR EXAM: FALL, HIT HEAD. Right cheek wound. Right mid face laceration. Initial encounter TECHNIQUE: Procedure Code: CTBR Modality: CT Procedure: BRAIN/HEAD WITHOUT CONTRAST Coronal and Sagittal reconstruction series were provided. One or more dose reduction techniques were used (e.g., Automated exposure control, adjustment of the mA and/or kV according to patient size, use of iterative reconstruction technique. RADIATION DOSE SUMMARY: 44.99; 26.38; 29.3 a; 29.38; 29.38 mGy DLP: 3219.88 mGycm FINDINGS: Brain: No intra-axial or extra-axial hemorrhage. No mass, mass effect or midline shift. Toth-white junction is maintained. Ventricles and sulci are prominent consistent with age related involution. Mild periventricular and deep white matter hypodensities suggest chronic small-vessel ischemic disease. CSF Spaces: No compressed CSF spaces. Sinuses/Mastoids: Ethmoid sinus disease. Mostly mucosal thickening and small retention cysts. Sphenoid sinuses and middle ear complexes are patent no mastoid effusions. Frontal sinuses are clear. Bones: No fractures identified Subcutaneous fat stranding in the right cheek soft tissues CT/Brain/Head without Contrast IMPRESSION: Evidence of superficial soft tissue injury in the right cheek. Sinus disease. No CT evidence of acute brain injury. Age-related involution and chronic small-vessel ischemic disease Reading Location[facility]
--- NOTE | 2025-02-13 21:41 | ED.VIS.FALL ---
HPI HPI - Fall History of Present Illness Chief Complaint: Fall Narrative Narrative: Patient is a 74-year-old male presenting to the emergency department for a fall. Patient has a past medical history of failure to thrive, obesity, CKD, COPD, hypertension, hyperlipidemia and diabetes. Patient states he is in a motorized scooter at baseline due to "diabetes". He states that he was reaching for something today while he was sitting in his scooter and fell forward striking his right sided face. He is on Plavix at home. He denies any loss of consciousness. Denies any neck or back pain. Denies any hip pain or pain in his extremities. He does not know when his last tetanus vaccine was. States the fall was around 730 this evening. [facility] Medical History Adult failure to thrive Obesity Allergic rhinitis CKD (chronic kidney disease), stage II Former tobacco use COPD (chronic obstructive pulmonary disease) BPH (benign prostatic hyperplasia) Hyperlipemia HTN (hypertension) Diabetes Home Medications Medication Instructions Recorded Last Taken Type atorvastatin 80 mg tablet 80 mg PO QHS cholesterol 11/08/22 Unknown History cetirizine 5 mg tablet 5 mg PO QHS allergies 11/08/22 Unknown History cholecalciferol (vitamin D3) 125 5,000 unit PO QWEEK vitamin 11/08/22 Unknown History mcg (5,000 unit) tablet (Vitamin D3) clopidogrel 75 mg tablet 75 mg PO DAILY anti platelet 11/08/22 11/08/22 History icosapent ethyl 1 gram capsule 2 g PO BID triglycerides 11/08/22 Unknown History (Vascepa) isosorbide mononitrate 30 mg 30 mg PO DAILY heart 11/08/22 Unknown History tablet,extended release 24 hr linagliptin 5 mg tablet (Tradjenta) 5 mg PO DAILY diabetes 11/08/22 Unknown History losartan 25 mg tablet 25 mg PO DAILY blood pressure 11/08/22 Unknown History melatonin 5 mg tablet 5 mg PO QHS sleep 11/08/22 Unknown History metformin 500 mg tablet 500 mg PO BID diabetes 11/08/22 Unknown History montelukast 10 mg tablet 10 mg PO QHS allergies 11/08/22 Unknown History polyethylene glycol 3350 17 17 g PO .EVERY OTHER DAY 11/08/22 Unknown History gram/dose oral powder (Gavilax) constipation tamsulosin 0.4 mg capsule 0.8 mg PO DAILY prostate 11/08/22 Unknown History finasteride 5 mg tablet 5 mg PO DAILY #0 tabs 11/12/23 Unknown Rx Allergy/AdvReac Type Severity Reaction Status Date / Time No Known Allergies Allergy Verified 02/13/25 19:57 Family History Mother Diabetes Cancer Father Diabetes Cancer Surgical History History of herniorrhaphy Hx of cholecystectomy Hx of appendectomy Social History housing: assisted living facility Smoking Status: Former smoker alcohol intake: never substance use type: does not use EXAM Physical Exam Narrative Exam Narrative: Vital signs: Reviewed General: Alert and oriented x 3. No acute distress HEENT: Head is normocephalic and atraumatic. No cephalhematoma lacerations or abrasions to the scalp. There is a 1.5 cm laceration to the right midface. There are some mild tenderness to palpation around this area. Midface is stable. Pupils equal round and reactive. No conjunctival hemorrhage. Nares are patent. No septal hematoma. Oropharynx and throat exams normal. No focal oropharyngeal trauma. Neck: Supple without lymphadenopathy nontender. No midline cervical spinal tenderness to palpation. No step-offs or deformities. Cardiovascular: Regular rate and rhythm, no murmurs. No rubs or gallops. Normal S1 and S2 Respiratory: Clear to auscultation bilaterally. No wheezes, rales, rhonchi Chest: Chest wall is atraumatic and nontender to palpation. Abdominal: Soft and nontender. Normal bowel sounds. No guarding or rebound. Nonsurgical abdomen Extremities: No midline thoracic or lumbar spinal tenderness to palpation. No step-offs or deformities. Hips are stable and nontender to palpation. Extremities are atraumatic and nontender to palpation with normal active range of motion. Neurological: Cranial nerves II through XII are grossly intact. Normal strength and sensation. Normal cerebellar function The rest of the physical exam is unremarkable Const Vital Signs: 02/13/25 19:54 02/13/25 21:19 02/13/25 23:28 Temperature 98.3 F 98.6 F Temperature Source Oral Pulse Rate 87 81 Respiratory Rate 14 15 Respiratory Effort Normal Non-Labored Respiratory Depth Normal Respiratory Pattern Normal Blood Pressure 159/124 H 138/88 H Blood Pressure Mean 135 104 Pulse Ox 98 99 Oxygen Delivery Method Room Air MDM MDM MDM Narrative Medical decision making narrative: Patient is a 74-year-old male presenting to the emergency department after a fall. Patient was seen and examined. Vitals are stable. Patient resting in bed comfortably in no acute distress. Given patient's age and evidence of facial trauma CT the brain, cervical spine and facial bones was ordered. Tetanus vaccine was updated. Wound was copiously irrigated. No foreign body seen on wound exploration. Wound was injected with 2% lidocaine with epi for anesthetic. 2 5.0 Ethilon simple interrupted sutures were placed. Patient tolerated well. CT of the brain with no CT evidence of acute brain injury. Chronic changes that can be seen in the radiology report. Evidence of superficial soft tissue injury in the right cheek. CT cervical spine with no fracture or subluxation. No facial fractures on CT facial bones. Patient does not ambulate at baseline, no ambulation test needed here before discharge. Patient was given wound care instructions. Instructed to keep the wound clean and dry. Instructed to have the sutures removed in 7 days by his primary care doctor. All questions were answered. Patient discharged from the Emergency Department. I do not feel that the patient's evaluation reveals any acute reason for admission at this time. I instructed them to either follow-up with their primary care physician or promptly return to the Emergency Department for reevaluation should symptoms worsen or new symptoms develop. I explained what symptoms would indicate the need to return to the emergency department. Shared decision making was used. The patient voiced understanding of the treatment plan and is agreeable with it. Clinical impression Fall Facial trauma Facial laceration History & Record Review Discussion w/independent historian: Patient Radiography Diagnostic Testing: Clinical Impression(s) from Imaging Studies Brain CT 02/13/25 21:22 IMPRESSION: Evidence of superficial soft tissue injury in the right cheek. Sinus disease. No CT evidence of acute brain injury. Age-related involution and chronic small-vessel ischemic disease Reading Location[facility] Cervical Spine CT 02/13/25 21:22 IMPRESSION: Degenerative disc disease and endplate spondylosis. No fracture or subluxation identified. Reading Location: [facility] Facial/Sinus 02/13/25 21:22 IMPRESSION: Mild scattered size disease previous sinuplasty of the left maxillary sinus. Smaller medial wall defect in the right maxillary sinus. No acute fractures appreciated. Reading Location: [facility] Discharge Plan Triage Chief Complaint: Fall Other Complaint: Wound ED Provider: Irene Ward Dx/Rx/DC Orders Clinical Impression: Fall, Facial laceration Instructions: ED Laceration, All Closures, ED Fall Prevention Prescriptions: No Action atorvastatin 80 mg tablet 80 mg PO QHS cetirizine 5 mg tablet 5 mg PO QHS Patient Comments: 1 TABLET BY MOUTH ATIBEDTIME DX: / NURSE TO REORDER clopidogrel 75 mg tablet 75 mg PO DAILY isosorbide mononitrate 30 mg tablet extended release 24 hr 30 mg PO DAILY losartan 25 mg tablet 25 mg PO DAILY melatonin 5 mg tablet 5 mg PO QHS metformin 500 mg tablet 500 mg PO BID montelukast 10 mg tablet 10 mg PO QHS polyethylene glycol 3350 [Gavilax] 17 gram/dose powder 17 g PO .EVERY OTHER DAY Patient Comments: 17 GRAMS DISSOLVED INILIQUID EVERY OTHER DAY FOR CONSTIPATION HOLD FOR DIARRHEA, CALL MD IF NO BM IN 24 HRS tamsulosin 0.4 mg capsule 0.8 mg PO DAILY Tradjenta 5 mg tablet 5 mg PO DAILY icosapent ethyl [Vascepa] 1 gram capsule 2 g PO BID cholecalciferol (vitamin D3) [Vitamin D3] 125 mcg (5,000 unit) tablet 5,000 unit PO QWEEK finasteride 5 mg Tablet 5 mg PO DAILY Qty: 0 0RF Primary Care Provider: Jessica Alvarez HOSPITAL CLERK Referrals: Jessica Alvarez HOSPITAL CLERK, HOSPITAL CLERK-C [Primary Care Provider, Medical] - As soon as possible Activity Restrictions/Additional Instructions: You need to have the sutures removed in your cheek in 7 days. Keep the wound clean and dry. Your evaluation in the Emergency Department did not reveal any acute reason for admission. However, I want to emphasize that you may be early in the course of a disease process or illness even if it is not present. For this reason you should follow-up within 24 hours for reevaluation with either your primary care physician or if necessary back here in the Emergency Department. You should return to the Emergency Department immediately if your symptoms worsen or new symptoms develop. Print Language: Dominican Disposition Disposition: Home, Self Care Discharge Date/Time: 02/13/25 23:45
--- OUTSIDE RECORDS SUMMARY | 2025-02-13 22:10 | XMS RPT_ITS | CCD ---
Author Organization [place] [facility] Partnership [facility] Care Team Providers Care Mobile Game Engineer Name Role Phone LUCIANO, KELVIN B Unavailable Unavailable LUCIANO, KELVIN B Unavailable Unavailable NO PRIMARY CARE, MD Unavailable Unavailable LUCIANO, KELVIN B Unavailable Unavailable BARD, MARYKE Unavailable Unavailable NO PRIMARY CARE, MD Unavailable Unavailable NO PRIMARY CARE, MD Unavailable Unavailable ROSA TEJADA Unavailable Unavailable LUCIANO, KELVIN B Unavailable Unavailable NO PRIMARY CARE, Unavailable Unavailable BARD, MARYKE Unavailable Unavailable LUCIANO, KELVIN B Unavailable Unavailable NO PRIMARY CARE, MD Unavailable Unavailable BARD, MARYKE Unavailable Unavailable LUCIANO, KELVIN B Unavailable Unavailable NO PRIMARY CARE, MD Unavailable Unavailable BARD, MARYKE Unavailable Unavailable LUCIANO, KELVIN B Unavailable Unavailable NO PRIMARY CARE, MD Unavailable Unavailable Favian Trevizo Primary Care Provider [phone] Favian Trevizo Primary Care Provider Panchito Contreras Primary Care Provider Danie Sawyer Primary Care Provider [phone] Joseline CHA PhD, Favian Primary Care Provider Danie Sawyer MD Primary Care Provider [phone] ANNA CHA, DANAY Eli Primary Care Physician [phone] Antonio NEIL, BANANA GRADERMiraC Jessiac Moura Primary Care Provid er Dr. Yifan Meza Emergency Provider [phone] Dr. Bridgett Villagomez Admit Provider Dr. Bridgett Villagomez Other Provider Dr. Tanika Kunz Attending Provider Dr. Tanika Kunz Other Provider Mark Anthony Guzman Attending Unavailable Antonio BANANA GRADER, [facility] Unavaila ruby White, Bridgett L Consulting Unavailable White, Bridgett L Admitting Unavailable Kaushik Bryant Consulting Unavailable Mark Anthony Guzman Consulting Unavailable Bridgett Villagomez Attending Unavailable Deniz Cooper Attending Unavailable Deniz Cooper Consulting Unavailable Antonio NEIL, [facility] Unavaila Deniz Marina Attending Unavailable Bridgett Villagomez L Consulting Unavailable Dahlia Bridgett L Admitting Unavailable Kaushik Bryant Consulting Unavailable Mark Anthony Guzman Consulting Unavailable Antonio NEIL, [facility] Unavaila Clayton Contreras Attending Unavailable Medications Current Medications Medication Drug Class(es) Dates Sig (Normalized) Sig (Original) acetaminophen 650 mg oral tablet (9 sources) Start: 02-27-2021 take 1 dose by mouth every six hours as needed for pain Tylenol Dose : 650 mg =, Oral, q6hr, PRN as needed for pain, 0 Refill(s) Start Date: 02/27/21 Status: Ordered Start: 01-31-2021 acetaminophen (TYLENOL) tablet 650 mg Start: 02-11-2020 take 2 tablets by mo uth every four hours as needed for pain acetaminophen (TYLENOL) 325 MG tablet Take 2 tablets by mouth every 4 hours as needed for Pain or Fever 42 tablet 0 02/11/2020 Active Start: 09-12-2019 acetaminophen (TYLENOL) tablet 650 mg take 2 tablets by mo uth every six hours as needed for pain acetaminophen (TYLENOL) 325 mg tablet Indications: pain Take 650 mg by mouth every 6 hours as needed. Indications: PAIN 0 Suspended Comment on above: Take 650 mg by mouth every 6 hours as needed. Indications: PAIN [id number] 200 actuat albuterol 0.09 mg/actuat metered dose inhaler (11 sources) beta2-Adrenergic Agonist Start: take 2 puff(s) by inhalation every four hours as needed for wheezing 2 puff, Inhalation, EVERY 4 HOURS PRN, Wheezing, Starting on 01/31/21 at 0100 Start: 01-18-2021 albuterol HFA (PROVENTIL HFA, VENTOLIN HFA) 90 mcg/actuation inhaler Inhale 1 Puff as instructed as needed. 0 01/18/2021 Suspended Start: 10-07-2020 take 2 puff(s) by mo uth every four hours as needed for wheezing albuterol sulfate HFA 108 (90 Base) MCG/ACT inhaler Indications: Type 2 diabetes mellitus with hyperglycemia, without long-term current use of insulin (HCC) INHALE 2 PUFFS BY MOUTH EVERY 4 HOURS NEEDED FOR WHEEZING OR SHORTNESS OF BREATH WITH SPACER 8.5 g 11 10/07/2020 Active Start: 09-12-2019 take 2 puff(s) by in halation every four hours as needed for wheezing 2 puff, Inhalation, EVERY 4 HOURS PRN, Wheezing, Shortness of Breath, Starting 09/12/19 at 2009 Start: 08-08-2019 take 2 puff(s) by mo uth every four hours as needed for wheezing PROAIR HFA 108 (90 Base) MCG/ACT inhaler Indications: Type 2 diabetes mellitus with hyperglycemia, without long-term current use of insulin (HCC) INHALE 2 PUFFS ORALLY INTO THE LUNGS EVERY 4 HOURS NEEDED FOR WHEEZING OR SHORTNESS OF BREATH WITH SPACER (AND MASK IF INDICATED) 8.5 g 11 08/08/2019 Active Start: 08-20-2018 take 2 puff(s) by in halation every four hours as needed for wheezing 2 puff, Inhalation, EVERY 4 HOURS PRN, Wheezing, Shortness of Breath, Starting 11/30/18 at 1520 Comment on above: Inhale 1 Puff as ins tructed as needed. albuterol 0.833 mg/ml / ipratropium bromide 0.167 mg/ml inhalant solution (2 sources) Anticholinergic, beta2-Adrenergic Agonist Start: 12-01-2018 ipratropium-albuterol (DUONEB) nebulizer solution 1 ampule Start: 11-30-2018 End: 12-01-2018 1 ampule, Inhalation, EVERY 4 HOURS WHILE AWAKE, First dose on 11/30/18 at 1600 albuterol MDI (90 mcg/inh) CFC free inhalation aerosol (3 sources) Start: 02-27-2021 take 1 puff(s) by inhalation every six hours as needed for wheezing albuterol MDI (90 mcg/inh) CFC free inhalation aerosol 1 puff(s), Inhalation, q6h, PRN as needed for wheezing, # 18 gram(s), 0 Refill(s) Start Date: 02/27/21 Status: Ordered ascorbic acid 60 mg / beta carotene 5000 unt / copper sulfate 40 mg / dl-alpha tocopheryl acetate 30 unt / sodium selenite 0.04 mg / zinc oxide 40 mg oral tablet (2 sources) Vitamin C Start: 08-06-2019 take 1 tablet by mouth once daily in the morning Multiple Vitamins-Minerals (CEROVITE SENIOR) TABS Indications: Controlled type 2 diabetes mellitus with diabetic neuropathy, without long-term current use of insulin (HCC) TAKE 1 TABLET BY MOUTH EVERY MORNING 31 tablet 08/06/2019 Active aspirin 81 mg delayed release oral tablet (14 sources) Platelet Aggregation Inhibitor, Nonsteroidal Anti-inflammatory Drug Start: 02-27-2021 Aspir-Low 81 mg oral delayed release tablet Dose : 81 mg = 1 tab(s), Oral, qDay, # 30 tab(s), 0 Refill(s) Start Date: 02/27/21 Status: Ordered Start: 05-21-2018 take 81 mg by mouth once daily 81 mg, Oral, DAILY, First dose on Sun01/31/21 at 0900 Comment on above: Take 81 mg by mouth once daily. Indications: CEREBRAL THROMBOEMBOLISM PREVENTION atorvastatin 80 mg oral tablet (17 sources) HMG-CoA Reductase Inhibitor Start: 11-09-19 take 80 mg by mouth at bedtime Atorvastatin Active 80 MG PO AT BEDTIME November 08, 2022 12:00am Start: 02-27-2021 atorvastatin 4 0 mg oral tablet Dose : 80 mg = 2 tab(s), Oral, qDay, # 30 tab(s), 0 Refill(s) Start Date: 02/27/21 Status: Ordered Start: 10-27-2020 End: 01-31-2021 take 1 tablet by mouth once daily atorvastatin (LIPITOR) 80 mg tablet Take 80 mg by mouth once daily. 0 01/17/2021 Suspended Start: 10-16-2019 take 1 tablet by magdy th once daily in the evening atorvastatin (LIPITOR) 20 MG tablet Indications: Hyperlipidemia Take 1 tablet by mouth every evening Indications: High Amount of Fats in the Blood 31 tablet 10/16/2019 Active Start: 09-12-2019 take 20 mg by mouth once daily in the evening 20 mg, Oral, EVERY EVENING, First dose on Sun09/12/19 at 2030 Start: 02-11-2019 take 1 tablet by magdy th once daily in the evening atorvastatin (LIPITOR) 20 MG tablet Indications: Hyperlipidemia TAKE 1 TABLET BY MOUTH EVERY EVENING 31 tablet 11 02/11/2019 Active Start: 11-30-2018 take 20 mg by mouth once daily in the evening 20 mg, Oral, EVERY EVENING, First dose on 11/30/18 at 1800 Start: 02-14-2018 take 1 tablet by magdy th once daily in the evening atorvastatin (LIPITOR) 20 MG tablet Indications: Hyperlipidemia Take 1 tablet by mouth every evening 90 tablet 3 02/14/2018 Active Comment on above: Take 80 mg by mouth once daily. azithromycin 500 mg oral tablet (1 source) Macrolide Antimicrobial Start: azithromycin (ZITHROMAX) tablet 500 mg bisacodyl 5 mg delayed release oral tablet (1 source) Stimulant Laxative Start: take 5 mg by mouth once daily as needed for constipation 5 mg, Oral, DAILY PRN, Constipation, Starting on 01/31/21 at 0111 First line therapy for constipation. cetirizine hydrochloride 5 mg oral tablet (4 sources) Histamine-1 Receptor Antagonist Start: 023 take 5 mg by mouth at bedtime Cetirizine Active 5 MG PO AT BEDTIME November 08, 2022 12:00am Start: 01-31-2021 take 5 mg by mouth once daily 5 mg, Oral, DAILY, First dose on 01/31/21 at 0900 Substituted for Loratadine (CLARITIN). cholecalciferol 0.125 mg oral tablet (4 sources) Vitamin D Start: 11-08-2022 take 1 tablet by mouth every week Cholecalciferol (Vitamin D3) (Vitamin D3) 125 mcg (5,000 unit) tablet Active 5000 UNIT PO EVERY WEEK November 08, 2022 12:00am Start: 09-14-2019 Vitamin D (CHO LECALCIFEROL) tablet 5,000 Units clopidogrel 75 mg oral tablet (10 sources) [id number] Platelet Inhibitor Start: 11-08-2022 take 75 mg by mouth once daily Clopidogrel Active 75 MG PO DAILY November 08, 2022 12:00am Start: 02-27-2021 Plavix 75 mg o ral tablet Dose : 75 mg = 1 tab(s), Oral, Daily, 0 Refill(s) Start Date: 02/27/21 Status: Ordered Start: 10-27-2020 End: 01-31-2021 take 1 tablet by mouth once daily clopidogrel (PLAVIX) 75 mg tablet Take 75 mg by mouth once daily. 0 01/17/2021 Suspended Comment on above: Take 75 mg by mouth once daily. docusate sodium 100 mg oral capsule (2 sources) Start: 09-16-2019 docusate sodium (COLACE) capsule 100 mg Start: 09-16-2019 take 1 capsule by [facility] twice daily docusate sodium (COLACE, DULCOLAX) 100 MG CAPS Take 100 mg by mouth 2 times daily 0 09/16/2019 Active fluticasone propionate 0.05 mg/actuat metered dose nasal spray (8 sources) Corticosteroid Start: 01-31-2021 1 spray, Nasal , DAILY PRN, Rhinitis, Starting on 01/31/21 at 0100 Start: 07-21-2020 fluticasone (F LONASE) 50 MCG/ACT nasal spray Indications: Nasal congestion 1 spray by Nasal route daily as needed for Rhinitis 16 g 11 07/21/2020 Active Start: 09-12-2019 take 2 spray(s) nasa l route once daily 2 spray, Each Nostril, DAILY, First dose on Sun09/12/19 at 2029 Start: 07-09-2019 take 1 spray(s) nasa l route once daily fluticasone (FLONASE) 50 MCG/ACT nasal spray Indications: Nasal congestion INHALE 1 SPRAY IN EACH NOSTRIL EVERY DAY 16 g 07/09/2019 Active furosemide 20 mg oral tablet (2 sources) Loop Diuretic Start: 10-20-2019 take 1 tablet by mouth once daily as needed furosemide (LASIX) 20 MG tablet Indications: Bilateral lower extremity edema , Chronic diastolic heart failure (HCC) Take 1 tablet by mouth daily as needed (lower extremity swelling) 60 tablet 0 10/20/2019 Active glucagon (rdna) 1 mg injection (2 sources) Antihypoglycemic Agent Start: 09-12-2019 take 1 mL intravenous route every hour 1 mg, Intramuscular, PRN, Low blood sugar, Blood glucose less than 70 mg/dL and patient NOT ALERT or NPO and does not have IV access., Starting Sun09/12/19 at 2008 After administration, attempt intravenous access and start D5W at 100 mL/hr. Repeat blood glucose in 15 minutes x2 and notify provider. Start: 12-01-2018 glucagon (rDNA ) injection 1 mg glucose 0.4 mg/mg oral gel (6 sources) Start: 09-12-2019 15 g, Oral, DC N, Low blood sugar, Starting Sun09/12/19 at 2008 If blood glucose less than 50 mg/dL and patient ALERT and TOLERATING PO, give 2 tubes glucose gel. If blood glucose less than 70 mg/dL and patient ALERT and TOLERATING PO, give 1 tube glucose gel. Repeat blood glucose in 15 minutes. If blood glucose is less than 70 mg/dL, repeat treatment and recheck blood glucose in 15 minutes x2 and notify provider. Start: 09-12-2019 12.5 g, Intrav enous, PRN, Low blood sugar, Blood glucose less than 70 mg/dL and patient NOT ALERT or NPO., Starting Sun09/12/19 at 2008 If patient does not respond within 5 minutes, repeat dose x1. Start D5W at 100 mL/hour until ordering provider can be reached. Repeat blood glucose in 15 minutes. If blood glucose is less than 70 mg/dL, repeat treatment and recheck blood glucose in 15 minutes x2. If using Glucostabilizer, dose as instructed per system. Start: 09-12-2019 100 mL/hr, Int ravenous, at 100 mL/hr, PRN, Low blood sugar, Starting Sun09/12/19 at 2008 Start infusion following administration of dextrose 50% or glucagon. Start: 12-01-2018 glucose (GLUTO SE) 40 % oral gel 15 g Start: 12-01-2018 dextrose 50 % IV solution Start: 12-01-2018 dextrose 5 % s olution glucose monitoring (FREESTYL E) kit (2 sources) Start: 10-20-2020 glucose monito ring (FREESTYLE) kit Indications: Type 2 diabetes mellitus without complication, without long-term current use of insulin (HCC) 1 kit by Does not apply route daily 1 kit 0 10/20/2020 Active glucose monitoring kit (FREESTYLE) monitoring kit (6 sources) Start: 09-12-2019 glucose monito ring kit (FREESTYLE) monitoring kit 1 kit by Does not apply route daily 1 kit 0 09/12/2019 Active 12 hr guaiFENesin 600 mg extended release oral tablet (4 sources) Start: 02-27-2021 Mucinex 600 mg oral tablet, extended release Dose : 600 mg = 1 tab(s), Oral, q12h, 0 Refill(s) Start Date: 02/27/21 Status: Ordered Start: 02-27-2021 Mucinex 600 mg oral tablet, extended release Dose : 600 mg = 1 tab(s), Oral, q12h, 0 Refill(s) Start Date: 02/27/21 Status: Ordered Start: 11-30-2018 guaiFENesin (M UCINEX) extended release tablet 600 mg hydrOXYzine hydrochloride 25 mg oral tablet (4 sources) Antihistamine Start: 01-31-2021 take 25 mg by mouth every six hours as needed for anxiety 25 mg, Oral, EVERY 6 HOURS PRN, Itching, Anxiety, Starting on 01/31/21 at 0107 Start: 12-07-2020 hydrOXYzine pa moate (VISTARIL) 25 mg capsule Take 25 mg by mouth as needed for itching/rash. 0 01/04/2021 Suspended Comment on above: Take 25 mg by mouth as needed for itching/rash. icosapent ethyl 1000 mg oral capsule (3 sources) Start: 11-08-2022 Icosapent Ethyl (Vascepa) 1 gram capsule Active 2 GM PO TWICE A DAY November 08, 2022 12:00am insulin lispro 100 unt/ml injectable solution (4 sources) Insulin Analog Start: 09-13-2019 0-12 Units, Subcutaneous, 3 TIMES DAILY WITH MEALS, First dose on 09/13/19 at 0800 Medium Dose Corrective Algorithm Gluco se: Dose: If <139 &nbs p; &n bsp; No Insulin 140-1 99 2 Units 200-249 4 Units 250-299 6 Units 300-349 8 Units 350-400 10 Units Above 400 & nbsp; 12 Units Start: 09-12-2019 0-6 Units, Subcutaneous, NIG HTLY, First dose on Sun09/12/19 at 2100 If continuous tube feedings/TPN/NPO, give correction dose based on result, no reduction in dose. If eating or bolus tube feeding: Medium Dose Corrective Algorithm Glucose: Dose: If <139 No Insulin 140-199 1 Unit 200-249 2 Units 250-299 3 Units 300-349 4 Units 350-400 5 Units Above 400 6 Units Start: 12-01-2018 insulin lispro (HUMALOG) inj ection vial 0-3 Units 24 hr isosorbide mononitrate 30 mg extended release oral tablet (17 sources) Nitrate Vasodilator Start: 11-08-2022 take 30 mg by mouth once daily Isosorbide Mononitrate Active 30 MG PO DAILY November 08, 2022 12:00am Start: 02-27-2021 take 1 dose by mouth once daily in the morning Imdur use isosorbide mononitrate Dose : 30 mg =, Oral, qAM, 0 Refill(s) Start Date: 02/27/21 Status: Ordered Start: 10-07-2020 take 1 tablet by magdy th once daily, then take 1 tablet by mouth every twenty-four hours isosorbide mononitrate ER (IMDUR) 30 mg 24 hr tablet Take 30 mg by mouth once daily. 0 01/17/2021 Suspended Start: 10-16-2019 take 1 tablet by magdy th once daily isosorbide mononitrate (IMDUR) 30 MG extended release tablet Indications: Chronic diastolic heart failure (HCC) TAKE 1 TABLET BY MOUTH EVERY DAY 31 tablet 11 10/16/2019 Active Start: 03-12-2019 take 30 mg by mouth once daily 30 mg, Oral, DAILY, First dose on Sun09/12/19 at 2030 Do not crush or chew. Start: 08-20-2018 take 30 mg by mouth once daily 30 mg, Oral, DAILY, First dose on 11/30/18 at 1545 Do not crush or chew. Comment on above: Take 30 mg by mouth once daily. labetalol hydrochloride 5 mg/ml injectable solution (1 source) beta-Adrenergic Sparkle Start: 1 10 mg, IntraVENous, EVERY 10 MIN PRN, High Blood Pressure, Starting on 01/31/21 at 0108 Administer 10 mg IV every 10 min if SBP is 210 mmHg or greater OR DBP is 120 mmHg or greater as long as HR is greater than 65bp m until goal BP has been achieved and to a max of 30 mg Notify provider if SBP is 210 mmHg or greater OR DBP is 120 mmHg or greater after 3 consecutive doses. If HR is less than 65 call MD for further orders linagliptin 5 mg oral tablet (16 sources) Dipeptidyl Peptidase 4 Inhibitor Start: 3 take 1 tablet by mouth once daily Linagliptin (Tradjenta) 5 mg tablet Active 5 MG PO DAILY November 08, 2022 12:00am Start: 02-27-2021 Tradjenta 5 mg oral tablet Dose : 5 mg = 1 tab(s), Oral, qDay, # 30 tab(s), 0 Refill(s) Start Date: 02/27/21 Status: Ordered Start: 03-11-2020 take 1 tablet by magdy once daily TRADJENTA 5 mg tab Take 5 mg by mouth once daily. 0 01/17/2021 Suspended Start: 11-19-2019 TRADJENTA 5 MG tablet Start: 03-12-2019 End: 09-14-2019 take 1 tablet by mouth once daily TRADJENTA 5 MG tablet Indications: Diabetes mellitus type 2 without retinopathy (HCC) TAKE 1 TABLET BY MOUTH EVERY DAY 31 tablet 11 03/12/2019 09/14/2019 Discontinued (Stop Taking at Discharge) Start: 08-20-2018 take 5 mg by mouth once daily 5 mg, Oral, DAILY, First dose on 11/30/18 at 1545 Comment on above: Take 5 mg by mouth o nce daily. loperamide hydrochloride 2 mg oral capsule (1 source) Opioid Agonist Start: 0 take 2 mg by mouth four times daily as needed for diarrhea 2 mg, Oral, 4 TIMES DAILY PRN, Diarrhea, Starting Sun09/12/19 at 2009 After each loose stool. loratadine 10 mg oral tablet (3 sources) Start: 1 take 1 tablet by mouth once daily loratadine (CLARITIN) 10 MG tablet Indications: Tinnitus of right ear TAKE 1 TABLET BY MOUTH EVERY DAY 31 tablet 11 01/04/2021 Active Start: 12-17-2019 End: 01-16-2020 take 1 tablet by mouth once daily loratadine (CLARITIN) 10 MG tablet Indications: Tinnitus of right ear Take 1 tablet by mouth daily 30 tablet 0 12/17/2019 01/16/2020 Active losartan potassium 25 mg oral tablet (17 sources) Angiotensin 2 Receptor Sparkle Start: 11-08-2022 take 25 mg by mouth once daily Losartan Active 25 MG PO DAILY November 08, 2022 12:00am Start: 02-27-2021 losartan 25 mg oral tablet Dose : 25 mg = 1 tab(s), Oral, qDay, # 90 tab(s), 0 Refill(s) Start Date: 02/27/21 Status: Ordered Start: 10-07-2020 take 1 tablet by magdy th once daily losartan (COZAAR) 25 mg tablet Take 25 mg by mouth once daily. 0 01/17/2021 Suspended Start: 10-16-2019 take 1 tablet by magdy th once daily in the morning losartan (COZAAR) 25 MG tablet Indications: Hypertension, benign , Controlled type 2 diabetes mellitus with diabetic neuropathy, without long-term current use of insulin (HCC) Take 1 tablet by mouth every morning 31 tablet 11 10/16/2019 Active Start: 03-12-2019 take 25 mg by mouth once daily in the morning 25 mg, Oral, EVERY MORNING, First dose on 09/13/19 at 0900 Start: 08-20-2018 take 25 mg by mouth once daily in the morning 25 mg, Oral, EVERY MORNING, First dose on 12/01/18 at 0900 Comment on above: Take 25 mg by mouth once daily. magnesium hydroxide 80 mg/ml oral suspension (1 source) Start: 12-01-19 take 30 mL by mouth once daily as needed for constipation 30 mL, Oral, DAILY PRN, Constipation, Starting 11/30/18 at 1522 First line therapy for constipation. melatonin 5 mg oral tablet (3 sources) Start: 11-09-19 take 5 mg by mouth at bedtime Melatonin Active 5 MG PO AT BEDTIME November 08, 2022 12:00am metFORMIN hydrochloride 500 mg oral tablet (15 sources) Biguanide Start: 11-09-19 take 500 mg by mouth twice daily Metformin Active 500 MG PO TWICE A DAY November 08, 2022 12:00am Start: 02-27-2021 metFORMIN 750 mg oral tablet EXTENDED RELEASE Dose : 750 mg = 1 tab(s), Oral, qDay, # 90 tab(s), 0 Refill(s) Start Date: 02/27/21 Status: Ordered Start: 01-17-2021 take 1 tablet by magdy th twice daily at mealtime metFORMIN ER (GLUCOPHAGE XR) 750 mg 24 hr tablet Take 750 mg by mouth twice daily with meals. 0 01/17/2021 Suspended Start: 10-07-2020 take 2 tablets by mo uth once daily at dinner metFORMIN (GLUCOPHAGE-XR) 750 MG extended release tablet Indications: Controlled type 2 diabetes mellitus with diabetic neuropathy, without long-term current use of insulin (HCC) TAKE 2 TABLETS BY MOUTH EVERY DAY WITH DINNER 62 tablet 11 10/07/2020 Active Start: 11-17-2019 take 2 tablets by mo uth once daily at dinner metFORMIN (GLUCOPHAGE-XR) 750 MG extended release tablet Indications: Controlled type 2 diabetes mellitus with diabetic neuropathy, without long-term current use of insulin (HCC) TAKE 2 TABLETS BY MOUTH EVERY DAY WITH DINNER 62 tablet 11 11/17/2019 Active Start: 03-12-2019 take 2 tablets by mo uth once daily at dinner metFORMIN (GLUCOPHAGE-XR) 750 MG extended release tablet Indications: Controlled type 2 diabetes mellitus with diabetic neuropathy, without long-term current use of insulin ([facility]) TAKE 2 TABLETS BY MOUTH EVERY DAY WITH DINNER 62 tablet 11 03/12/2019 Active Start: 12-01-2018 take 1500 mg by mout h once daily at dinner 1,500 mg, Oral, DAILY WITH DINNER, First dose on 12/01/18 at 1730 Do not break or crush. Discontinue MetFORMIN for 48 hours after the administration of IV contrast. Start: 08-20-2018 take 2 tablets by mo uth once daily at dinner metFORMIN (GLUCOPHAGE-XR) 750 MG extended release tablet Indications: Type 2 diabetes mellitus with hyperglycemia, without long-term current use of insulin ([facility]) TAKE 2 TABLETS BY MOUTH EVERY DAY WITH DINNER 62 tablet 5 08/20/2018 Active Comment on above: Take 750 mg by mouth twice daily with meals. Misc. Devices (PRECISION SCALE) MISC (5 sources) Start: 10-13-19 Misc. Devices (PRECISION SCALE) MIS Indications: Shortness of breath , Bilateral leg edema , Hypertension, benign Weight daily. 1 each 0 10/12/2016 Active Misc. Devices (PULSE OXIMETER) MISC (6 sources) Start: 05-21-19 Misc. Devices (PULSE OXIMETER) MIS Indications: Hypersomnia , Chronic respiratory failure with hypoxia (HCC) 1 each by Does not apply route once for 1 dose 1 each 0 05/21/2018 Active Misc. Devices (WHEELCHAIR) MISC (2 sources) Start: 09-22-19 Misc. Devices (WHEELCHAIR) MISC Indications: Diabetic polyneuropathy associated with type 2 diabetes mellitus (HCC) , History of amputation of toe (HCC) , Impaired mobility , Cerebellar ataxia (HCC) 1 each by Does not apply route daily Motorized wheelchair 1 each 0 09/21/2020 Active montelukast 10 mg oral tablet (3 sources) Leukotriene Receptor Antagonist Start: 11-09-19 take 10 mg by mouth at bedtime Montelukast Active 10 MG PO AT BEDTIME November 08, 2022 12:00am Multiple Vitamins-Minerals (CEROVITE SENIOR) TABS (3 sources) Start: 08-06-19 take 1 tablet by mouth once daily in the morning Multiple Vitamins-Minerals (CEROVITE SENIOR) TABS Indications: Controlled type 2 diabetes mellitus with diabetic neuropathy, without long-term current use of insulin (HCC) TAKE 1 TABLET BY MOUTH EVERY MORNING 31 tablet 11 08/06/2019 Active Start: 05-21-2018 take 1 tablet by magdy th once daily in the morning Multiple Vitamins-Minerals (CEROVITE SENIOR) TABS Indications: Neuropathic Pain Take 1 tablet by mouth every morning 90 tablet 3 05/21/2018 Active Multivitamin preparation (3 sources) Start: 02-27-2021 take 1 tablet by mouth once daily Multivitamin Dose = 1 tab(s), Oral, Daily, 0 Refill(s) Start Date: 02/27/21 Status: Ordered nystatin 100 unt/mg topical ointment (1 source) Polyene Antifungal Start: 09-12-2019 apply 1 dose topically three times daily Topical, 3 TIMES DAILY, First dose on Sun09/12/19 at 2100 Apply to the groin folds 2 ml ondansetron 2 mg/ml injection (3 sources) Serotonin-3 Receptor Antagonist Start: 01-31-2021 4 mg, IntraVENous, EVERY 6 HOURS PRN, Nausea, Vomiting, Starting on Sun01/31/21 at 0108 Start: 11-30-2018 End: 11-30-2018 4 mg, Intravenous, EVERY 6 H OURS PRN, Nausea, Starting 11/30/18 at 1522 Ozempic (2 sources) Start: 02-27-2021 Ozempic 0.5 mg , Subcutaneous, , 0 Refill(s) Start Date: 02/27/21 Status: Ordered perflutren lipid microspheres (DEFINITY) injection 1.65 mg (1 source) Start: 01-31-2021 End: 02-03-2021 1.65 mg (1.5 mL), IntraVENous, IMG ONCE PRN, Other, Suboptimal Echo Image, Starting on Sun01/31/21 at 0120, For 72 hours Administer up to 1.65 mg via slow IVP for suboptimal echocardiogram enhancement. May administer as concentrated dose or diluted in 8.5 mL of 0.9% sodium chloride for a total volume of 10 mL. May administer as divided doses to reach optimal image enhancement. petrolatum 0.41 mg/mg topical ointment (2 sources) Start: 12-23-2020 mineral oil-hy drophilic petrolatum (HYDROPHOR) ointment Indications: Contact dermatitis, unspecified contact dermatitis type, unspecified trigger Apply topically as needed. 228 g 1 12/23/2020 Active polyethylene glycol 3350 15554 mg powder for oral solution (4 sources) Osmotic Laxative Start: 11-08-2022 Polyethylene Glycol 3350 (Gavilax) 17 gram/dose powder Active 17 GM PO .EVERY OTHER DAY November 08, 2022 12:00am Start: 09-12-2019 17 g, Oral, DA BALA PRN, Constipation, Starting Sun09/12/19 at 2008 First line therapy for constipation Promethazine (1 source) Phenothiazine Start: 09-12-2019 promethazine ( PHENERGAN) tablet 12.5 mg Ozempic (9 sources) Start: 02-27-2021 Ozempic 0.5 mg , Subcutaneous, , 0 Refill(s) Start Date: 02/27/21 Status: Ordered Start: 02-11-2021 OZEMPIC 0.25 m g or 0.5 mg(2 mg/1.5 mL) pen injector Inject 0.5 mg subcutaneously every . 0 02/11/2021 Suspended Start: 04-09-2020 OZEMPIC, 0.25 OR 0.5 MG/DOSE, 2 MG/1.5ML SOPN Indications: Uncontrolled type 2 diabetes mellitus with hyperglycemia (HCC) INJECT 0.5 MG SUB-Q EVERY WEEK ON FRIDAYS 1.5 mL 04/09/2020 Active Start: 10-16-2019 Semaglutide,0. 25 or 0.5MG/DOS, (OZEMPIC, 0.25 OR 0.5 MG/DOSE,) 2 MG/1.5ML SOPN Indications: Uncontrolled type 2 diabetes mellitus with hyperglycemia (HCC) Inject 0.5 mg into the skin once a week 1 pen 5 10/16/2019 Active Start: 09-18-2019 Semaglutide(0. 25 or 0.5MG/DOS) SOPN 0.5 mg Start: 04-25-2019 Semaglutide,0. 25 or 0.5MG/DOS, (OZEMPIC, 0.25 OR 0.5 MG/DOSE,) 2 MG/1.5ML SOPN Indications: Uncontrolled type 2 diabetes mellitus with hyperglycemia (HCC) Inject 0.5 mg into the skin once a week 1 pen 5 04/25/2019 Active Comment on above: Inject 0.5 mg subcut aneously every . Senna Leaves (2 sources) Start: 02-27-2021 senna 8.6 mg oral tablet Dose : 8.6 mg = 1 tab(s), Oral, qHS, 0 Refill(s) Start Date: 02/27/21 Status: Ordered sennosides, custodial 8.6 mg oral tablet (5 sources) Start: 02-27-2021 senna 8.6 mg oral tablet Dose : 8.6 mg = 1 tab(s), Oral, qHS, 0 Refill(s) Start Date: 02/27/21 Status: Ordered Start: 01-31-2021 take 1 tablet by magdy th once daily 17.2 mg (2 tablet), Oral, DAILY, First dose on Sun01/31/21 at 0900 Start: 10-27-2020 take 2 tablets by mo [facility] once daily Sennosides (SENNA) 8.6 MG CAPS Indications: Constipation, unspecified constipation type Take 2 tablets by mouth daily 60 capsule 3 01/04/2021 Active take 1 tablet by magdy th twice daily senna (SENEXON) 8.6 mg tab Take 8.6 mg by mouth twice daily. 0 Suspended Comment on above: Take 8.6 mg by mouth twice daily. 5 ml sodium chloride 9 mg/ml injection (16 sources) Start: take 1 dose intravenously twice daily 5-40 mL, IntraVENous, EVERY 12 HOURS SCHEDULED (2 times per day), First dose on Sun01/31/21 at 0900 For Line Patency: Peripheral IV = 5 mL; Midline or Central Line = 10 mL/lumen. &nbs p;If following IV push medication, administer flush at same rate as the IV push. Flush volume is determined by type of infusion therapy being given. F or non-viscous solutions use: Periphera l IV = 5 mL Midline or Central Line = 10 mL/lumen &nbsp ;For viscous solutions (i.e. blood components, parenteral nutrition, contrast media, or after obtaining blood sample) use: Periphera l IV = 10 mL Midline or Central Line = 20 mL/lumen Start: 01-31-2021 take 25 mL intraveno usly every hour as needed 25 mL, IntraVENous, at 100 mL/hr, PRN, If patient receiving piggyback infusions without ordered maintenance IV fluids or with frequent/long duration piggyback infusions, Starting on Sun01/31/21 at 0108 Administer at the same rate as the piggyback being infused. Start: 01-31-2021 End: 02-03-2021 5-40 mL, IntraVENous, PRN, L ine Care, Per [employer] Att[employer] Request, Starting on Sun01/31/21 at 0120, For 72 hours May use order for Line Care after every IV line use and Agitated Saline Bubble Study. Administration for Bubble Study per vocational horticulture instructor request for only. Remove 1 mL 0.9% sodium chloride from 10 mL syringe for creating agitated saline. If following IV push medication, administer flush at same rate as the IV push. Flush volume is determined by type of infusion therapy being given. For non-viscous solutions use: Peripheral IV = 5 mL Midline or Central Line = 10 mL/lumen For viscous solutions (i.e. blood components, parenteral nutrition, contrast media, or after obtaining blood sample) use: Peripheral IV = 10 mL Midline or Central Line = 20 mL/lumen Start: 01-30-2021 End: 01-30-2021 0.9 % sodium chloride bolus Start: 09-12-2019 10 mL, Intrave nous, EVERY 12 HOURS SCHEDULED (2 times per day), First dose on Sun09/12/19 at 2100 Start: 09-12-2019 take 10 mL intraveno us route once as needed 10 mL, Intravenous, PRN, Line Care, After every IV line use, Starting Sun09/12/19 at 2009 Start: 09-12-2019 End: 09-13-2019 Intravenous, at 75 mL/hr, CONTINUOUS, Starting Sun09/12/19 at 2030 Start: 09-12-2019 End: 09-12-2019 0.9 % sodium chloride bolus Start: 12-01-2018 End: 12-02-2018 0.9 % sodium chloride infusi on Start: 11-30-2018 10 mL, Intrave nous, EVERY 12 HOURS SCHEDULED (2 times per day), First dose on 11/30/18 at 2100 Start: 11-30-2018 take 10 mL intraveno us route once as needed 10 mL, Intravenous, PRN, Line Care, After every IV line use, Starting 11/30/18 at 1522 Start: 11-30-2018 End: 12-01-2018 0.9 % sodium chloride bolus tamsulosin hydrochloride 0.4 mg oral capsule (15 sources) alpha-Adrenergic Sparkle Start: 11-08-2022 take 0.8 mg by mouth once daily Tamsulosin Active 0.8 MG PO DAILY November 08, 2022 12:00am Start: 02-27-2021 Flomax 0.4 mg oral capsule Dose : 0.4 mg = 1 cap(s), Oral, qDay, # 30 cap(s), 0 Refill(s) Start Date: 02/27/21 Status: Ordered Start: 10-07-2020 take 0.4 mg by mouth once demi y tamsulosin (FLOMAX) 0.4 mg Take 0.4 mg by mouth once daily. 0 01/17/2021 Suspended Start: 10-10-2019 take 1 capsule by [facility] once daily tamsulosin (FLOMAX) 0.4 MG capsule TAKE 1 CAPSULE BY MOUTH EVERY DAY 31 capsule 11 10/10/2019 Active Start: 08-13-2019 take 0.4 mg by mouth once demi y 0.4 mg, Oral, DAILY, First dose on Sun09/12/19 at 2030 Do not crush or break. Comment on above: Take 0.4 mg by mouth once daily. triamcinolone acetonide 1 mg/ml topical cream (2 sources) Corticosteroid Start: 12-23-2020 triamcinolone (KENALOG) 0.1 % cream Indications: Contact dermatitis, unspecified contact dermatitis type, unspecified trigger Apply topically 2 times daily. 80 g 1 12/23/2020 Active zolpidem tartrate 5 mg oral tablet (2 sources) gamma-Aminobutyric Acid-ergic Agonist Start: 12-01-2018 End: 12-01-2018 zolpidem (AMBIEN) tablet 5 mg Completed/Discontinued Medications Medication Drug Class(es) Dates Sig (Normalized) Sig (Original) azithromycin (ZITHROMAX) 500 mg in dextrose 5 % 250 mL IVPB (1 source) Start: 11-30-2018 End: 11-30-2018 azithromycin (ZITHROMAX) 500 mg in dextrose 5 % 250 mL IVPB bacitracin 0.5 unt/mg topical ointment (2 sources) Start: 09-12-2019 End: 09-12-2019 bacitracin zinc ointment Start: 09-12-2019 End: 09-12-2019 bacitracin zinc ointment cefdinir 300 mg oral capsule (1 source) Cephalosporin Antibacterial Start: 09-14-2019 End: 09-15-2019 take 1 capsule by mouth twice daily cefdinir (OMNICEF) 300 MG capsule Take 1 capsule by mouth 2 times daily for 5 days 10 capsule 0 09/14/2019 09/15/2019 Discontinued (Stop Taking at Discharge) cefTRIAXone (ROCEPHIN) 1 g IVPB in NS 50ml minibag (1 source) Start: 11-30-2018 End: 11-30-2018 cefTRIAXone (ROCEPHIN) 1 g IVPB in NS 50ml minibag cefTRIAXone sodium 1 g in sodium chloride 0.9 % 100 mL IVPB (add-vantage) (2 sources) Start: 09-12-2019 End: 09-15-2019 1 g, Intravenous, EVERY 24 HOURS, First dose on Sun09/12/19 at 2200, Until Discontinued Start: 12-03-2018 End: 12-04-2018 cefTRIAXone sodium 1 g in so dium chloride 0.9 % 100 mL IVPB (add-vantage) ciprofloxacin 500 mg oral tablet (1 source) Quinolone Antimicrobial Start: 09-15-2019 End: 09-15-2019 take 1 tablet by mouth every twelve hours ciprofloxacin (CIPRO) 500 MG tablet Take 1 tablet by mouth every 12 hours for 5 days 10 tablet 0 09/15/2019 09/15/2019 Discontinued (Stop Taking at Discharge) 0.4 ml enoxaparin sodium 100 mg/ml prefilled syringe (4 sources) Low Molecular Weight Heparin Start: 03-01-2021 End: 03-15-2021 inject 0.4 mL by subcutaneous injection once daily Lovenox 40 mg/0.4 mL injectable solution Dose : 40 mg = 0.4 mL, Subcutaneous, qDay, X 14 day(s), # 5.6 mL, 0 Refill(s), 03/15/21 17:19:00 EST, called to pharmacy (Rx) Start Date: 03/01/21 Stop Date: 03/15/21 Status: Ordered Start: 01-31-2021 inject 40 mg by subc utaneous injection once daily 40 mg, SubCUTAneous, DAILY, First dose on 01/31/21 at 0900 Start: 09-12-2019 inject 40 mg by subc utaneous injection once daily 40 mg, Subcutaneous, DAILY, First dose on 09/12/19 at 2030 Start: 11-30-2018 inject 40 mg by subc utaneous injection once daily 40 mg, Subcutaneous, DAILY, First dose on 11/30/18 at 1545 multivitamin tablet (1 source) take 1 tablet by mouth once daily at breakfast multivitamin tablet Take 1 tablet by mouth daily with breakfast. 0 Suspended Comment on above: Take 1 tablet by magdy th daily with breakfast. nitroglycerin 0.02 mg/mg topical ointment (1 source) Nitrate Vasodilator Start: 09-12-19 End: 09-12-19 20 nitroglycerin (NITRO-BID) 2 % ointment 1 inch Problems Active Problems Problem Classification Problem Date Documented Da te Episodic/Chronic Cataract (4 sources) Bilateral pseudophakia; Translations: [Presence of intraocular lens] Onset: 03-10-2015 Resolved: 05-07-2019 05-07-2019 Chronic Cataract (9 sources) Bilateral age-related cataract; Translations: [Bilateral pseudophakia] Onset: 03-10-2015 Resolved: 05-07-2019 03-10-2015 Chronic kidney disease (6 sources) Chronic kidney disease stage 2; Translations: [Chronic kidney disease, stage 2 (mild)] Onset: 09-12-2019 09-12-2019 Chronic Chronic obstructive pulmonary disease and bronchiectasis (8 sources) Chronic obstructive lung disease; Translations: [Chronic obstructive pulmonary disease, unspecified] Onset: 08-20-2018 08-20-2018 Chronic Conditions associated with dizziness or vertigo (3 sources) Lightheadedness; Translations: [Dizziness and giddiness] Onset: 01-30-2021 Episodic Congestive heart failure; nonhypertensive (7 sources) Chronic diastolic heart failure; Translations: [Chronic diastolic (congestive) heart failure] Onset: 05-21-2018 05-21-2018 Chronic Coronary atherosclerosis and other heart disease (1 source) Coronary atherosclerosis; Translations: [Atherosclerotic heart disease of [place] coronary artery without angina pectoris] Onset: 02-27-2021 Chronic Diabetes mellitus with complications (19 sources) Diabetic neuropathy; Translations: [Diabetic dyslipidemia associated with type 2 diabetes mellitus] Onset: 12-31-2014 11-27-2014 Chronic Diabetes mellitus without complication (11 sources) Diabetes mellitus type 2 without retinopathy; Translations: [Diabetes mellitus] Onset: 09-26-2014 Resolved: 01-17-2018 03-10-2015 Chronic Diabetes mellitus without complication (4 sources) Hyperglycemia; Translations: [Hyperglycemia, unspecified] 11-08-2022 Episodic E Codes: Fall (5 sources) Fall; Translations: [Unspecified fall, initial encounter] 10-03-2022 Episodic Essential hypertension (15 sources) Essential hypertension; Translations: [Benign hypertension] Onset: 06-09-2016 Resolved: 05-21-2018 07-12-2017 Chronic External cause codes: Fall (1 source) Fall; Translations: [Fall, initial encounter] Fever of unknown origin (9 sources) Fever; Translations: [Feeling feverish] Onset: 04-23-2016 Resolved: 01-17-2018 01-17-2018 Episodic Fluid and electrolyte disorders (5 sources) Dehydration; Translations: [Dehydration] 11-08-2022 Episodic Fracture of upper limb (1 source) Fracture at wrist and/or hand level; Translations: [Unspecified fracture of unspecified wrist and hand, initial encounter for closed fracture] Onset: 04-30-2021 Episodic Hyperplasia of prostate (7 sources) Benign prostatic hypertrophy with outflow obstruction; Translations: [Benign prostatic hyperplasia with lower urinary tract symptoms] Onset: 09-14-2016 03-03-2018 Chronic Inflammation; infection of eye (except that caused by tuberculosis or sexually transmitteddisease) (5 sources) Bilateral blepharitis; Translations: [Blepharitis of both eyes] Onset: 03-10-2015 03-10-2015 Malaise and fatigue (5 sources) Asthenia; Translations: [Weakness generalized] 01-17-2018 Episodic Nausea and vomiting (5 sources) Nausea and vomiting; Translations: [Nausea] 11-08-2022 Episodic Nutritional deficiencies (6 sources) Vitamin D deficiency; Translations: [Vitamin D deficiency, unspecified] Onset: 09-14-2019 09-14-2019 Chronic Other bone disease and musculoskeletal deformities (5 sources) History of amputation of foot; Translations: [History of amputation of toe] Onset: 05-21-2018 05-21-2018 Chronic Other connective tissue disease (1 source) Recurrent falls ; Translations: [Repeated falls] Onset: 02-27-2021 Episodic Other eye disorders (10 sources) Constricted pupil; Translations: [Small pupil] Onset: 05-23-2018 Resolved: 06-24-2019 07-04-2018 Other eye disorders (3 sources) Cutis laxa of bilateral upper eyelid; Translations: [Dermatochalasis of both upper eyelids] Onset: 05-23-2018 05-23-2018 Other hereditary and degenerative nervous system conditions (2 sources) Cerebellar ataxia; 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, unspecified] Onset: 04-07-2020 04-07-2020 Chronic Other injuries and conditions due to external causes (1 source) Injury of head; Translations: [Injury of head, initial encounter] Episodic Other injuries and conditions due to external causes (1 source) Closed injury of head; Translations: [Closed head injury, initial encounter] Episodic Other nutritional; endocrine; and metabolic disorders (1 source) Morbid obesity; Translations: [Morbid obesity] Onset: 05-21-2018 05-21-2018 Chronic Other nutritional; endocrine; and metabolic disorders (5 sources) Disorder of sulfur-bearing amino acid metabolism; 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] Onset: 05-19-2016 01-17-2018 Chronic Other nutritional; endocrine; and metabolic disorders (5 sources) Obesity; Translations: [Class 2 severe obesity due to excess calories with serious comorbidity and body mass index (BMI) of 37.0 to 37.9 in adult] Onset: 05-21-2018 03-17-2019 Chronic Other nutritional; endocrine; and metabolic disorders (2 sources) Severe obesity; Translations: [Morbid (severe) obesity due to excess calories] Onset: 05-21-2018 08-10-2020 Chronic Other nutritional; endocrine; and metabolic disorders (4 sources) Hyperbilirubinemia; Translations: [Other disorders of bilirubin metabolism] 11-08-2022 Chronic Other nutritional; endocrine; and metabolic disorders (2 sources) Adult failure to thrive syndrome; Translations: [Adult failure to thrive] 11-08-2022 Episodic Other nutritional; endocrine; and metabolic disorders (1 source) Adult failure to thrive; Translations: [Adult failure to thrive] 11-11-2022 Episodic Residual codes; unclassified (8 sources) Obstructive sleep apnea syndrome; Translations: [Obstructive sleep apnea (adult) (pediatric)] Onset: 11-24-2016 11-24-2016 Chronic Residual codes; unclassified (1 source) Altered mental status; Translations: [Altered mental status, unspecified] Onset: 02-27-2021 Episodic Respiratory failure; insufficiency; arrest (adult) (4 sources) Chronic hypoxemic respiratory failure; Translations: [Chronic respiratory failure with hypoxia] Onset: 05-21-2018 05-21-2018 Chronic Skull and face fractures (1 source) Closed fracture of nasal bones; Translations: [Fracture of nasal bones, initial encounter for closed fracture] Onset: 02-27-2021 Episodic Sprains and strains (1 source) Low back strain; Translations: [Lumbar strain, initial encounter] Episodic Superficial injury; contusion (5 sources) Contusion of chest; Translations: [Contusion of unspecified front wall of thorax, initial encounter] 10-03-2022 Episodic Transient cerebral ischemia (2 sources) Transient cerebral ischemia; Translations: [Transient cerebral ischemic attack, unspecified] Onset: 10-20-2020 10-20-2020 Chronic Unclassified (1 source) Acidosis, unspecified; Translations: [Acidosis, unspecified] Onset: 11-12-2023 Viral infection (1 source) Disease caused by 2019-nCoV; Translations: [COVID-19] Onset: 02-15-2021 02-15-2021 Episodic Past or Other Problems Problem Classification Problem Date Documented Da te Episodic/Chronic Administrative/social admission (2 sources) Impaired mobility; Translations: [Other reduced mobility] Onset: 09-21-2020 09-21-2020 Episodic Blindness and vision defects (10 sources) Blurring of visual image; Translations: [Myopia] Onset: 03-10-2015 03-10-2015 Episodic Disorders of lipid metabolism (7 sources) Hyperlipidemia; Translations: [Hyperlipidemia, unspecified] Onset: 09-26-2014 Resolved: 05-21-2018 05-21-2018 Chronic Genitourinary symptoms and ill-defined conditions (7 sources) Dysuria; Translations: [Dysuria] Onset: 06-14-2018 Resolved: 08-20-2018 08-20-2018 Episodic Inflammation; infection of eye (except that caused by tuberculosis or sexually transmitteddisease) (2 sources) Bilateral blepharitis; Translations: [Unspecified blepharitis right eye, unspecified eyelid] Onset: 03-10-2015 07-14-2019 Episodic Other eye disorders (4 sources) Constricted pupil; Translations: [Miosis] Onset: 05-23-2018 Resolved: 05-12-2020 06-25-2019 Chronic Other eye disorders (4 sources) Excess skin of eyelid; Translations: [Dermatochalasis of right upper eyelid] Onset: 05-23-2018 05-23-2018 Episodic Other gastrointestinal disorders (5 sources) Constipation; Translations: [Constipation, unspecified] Onset: 12-31-2014 12-31-2014 Episodic Other injuries and conditions due to external causes (2 sources) At high risk for fall; Translations: [History of falling] Onset: 10-20-2020 10-20-2020 Episodic Other lower respiratory disease (7 sources) Dyspnea; Translations: [Dyspnea, unspecified] Onset: 11-24-2016 Resolved: 08-20-2018 08-20-2018 Episodic Other lower respiratory disease (7 sources) Multiple nodules of lung; Translations: [Other nonspecific abnormal finding of lung field] Onset: 06-03-2018 06-03-2018 Episodic Other nervous system disorders (2 sources) Ataxia; Translations: [Ataxia, unspecified] Onset: 09-30-2020 09-30-2020 Episodic Other screening for suspected conditions (not mental disorders or infectious disease) (3 sources) Increased lactic acid level; Translations: [Patient encounter status] Resolved: 12-26-2017 12-26-2017 Episodic Phlebitis; thrombophlebitis and thromboembolism (9 sources) H/O: Deep vein thrombosis; Translations: [Personal history of other venous thrombosis and embolism] Onset: 07-12-2017 Resolved: 05-21-2018 02-14-2018 Episodic Phlebitis; thrombophlebitis and thromboembolism (5 sources) Acute deep venous thrombosis of right femoral vein; Translations: [Acute deep vein thrombosis (DVT) of femoral vein of right lower extremity] Onset: 07-12-2017 Resolved: 05-21-2018 05-21-2018 Pneumonia (except that caused by tuberculosis or sexually transmitted disease) (4 sources) Pneumonia; Translations: [Infective pneumonia] Onset: 11-30-2018 11-30-2018 Episodic Residual codes; unclassified (3 sources) Edema of lower extremity; Translations: [Bilateral leg edema] Resolved: 08-20-2018 08-20-2018 Episodic Residual codes; unclassified (4 sources) Localized edema; Translations: [Bilateral lower limb edema] Resolved: 08-20-2018 08-20-2018 Episodic Residual codes; unclassified (2 sources) Disorder of sulfur-bearing amino acid metabolism; Translations: [Genetic susceptibility to other disease] Onset: 05-19-2016 10-20-2019 Episodic Septicemia (except in labor) (14 sources) Sepsis due to Gram negative bacteria ; Translations: [Sepsis] Onset: 12-05-2017 Resolved: 07-15-2018 07-15-2018 Episodic Unclassified (5 sources) Patient encounter status; Translations: [Screening for colon cancer] Resolved: 12-26-2017 12-26-2017 Unclassified (1 source) History of SARS-CoV-2; Translations: [Personal history of COVID-19] Onset: 02-27-2021 Urinary tract infections (20 sources) Urinary tract infectious disease; Translations: [Recurrent urinary tract infection] Onset: 04-19-2017 Resolved: 10-13-2019 07-11-2017 Episodic Results Test Name Value Interpretation Reference Range Facility Basic Metabolic Profile (BMP )on 05-15-2024 BUN/CRE 10.4 RATIO Normal 10-20 [facility] Comment on above: Performed By: #### L [id number] #### [facility] [address] [place], [address] CA,Total 8.5 mg/dL Normal 8.5-10.1 [facility] Comment on above: Performed By: #### L [id number] #### [facility] [address] [place], [address] Chloride [Moles/Vol] 104 mmol/L Normal 98-107 [facility] Comment on above: Performed By: #### L [id number] #### [facility] [address] [place], [address] CO2 [Moles/Vol] 22.0 mmol/L Normal 21.0-32.0 [facility] Comment on above: Performed By: #### L [id number] #### [facility] [address] [place], [address] Creatinine [Mass/Vol] 1.06 mg/dL Normal 0.70-1.30 [facility] Comment on above: Result Comment: The validity of the calculated GFR GFRAA in patients over 70 years has not been determined. Clinical correlation is essential. Performed By: #### L [id number] #### [facility] [address] [place], [address] ECRCL 84.96 ml/min Normal [facility] Comment on above: Performed By: #### L [id number] #### [facility] [address] [place], [address] EST GFR - AA 88 mL/min Normal >60 [facility] Comment on above: Result Comment: Afri can [place] GFR Calc Performed By: #### L [id number] #### [facility] [address] [place], [address] GAP 11 Normal 5-15 [facility] Comment on above: Performed By: #### L [id number] #### [facility] [address] [place], [address] GFR/1.73 sq M.predicted among non-blacks MDRD (S/P/Bld) [Vol rate/Area] 73 mL/min/{1.73_m2} Normal >60 [facility] Comment on above: Result Comment: Non- GFR Calc Performed By: #### L [id number] #### [facility] [address] [place], [address] Glucose [Mass/Vol] 188 mg/dL High 74-106 [facility] Comment on above: Result Comment: Fast ing Glucose result greater than or equal to 126 mg/dL suggests DIABETES MELLITUS per A.D.A. criteria. Performed By: #### L [id number] #### [facility] [address] [place], [address] Potassium [Moles/Vol] 3.6 mmol/L Normal 3.5-5.1 [facility] Comment on above: Performed By: #### L [id number] #### [facility] [address] [place], [address] Sodium [Moles/Vol] 137 mmol/L Normal 136-145 [facility] Comment on above: Performed By: #### L [id number] #### [facility] [address] [place], [address] Urea nitrogen [Mass/Vol] 11 mg/dL Normal 7-18 [facility] Comment on above: Performed By: #### L [id number] #### [facility] [address] [place], [address] CBC W/Diff, Automatedon 05-03 PLT EST SLT DEC Normal ADEQ [facility] Comment on above: Performed By: #### L [id number] #### [facility] [address] [place], [address] Chest PA and Lateralon 05-15 Chest PA and Lateral [facility] Imaging Services [address] [place] [address] Chest PA and Lateral MR#: [id number] Acct: [id number] Name: SHOLA MARTINEZ Rep #: [id number] : 1950 M 73 From: Saundra Jarvis nd, MD PCP: MASON EdwardsC Status: PRE ER Study: Chest PA and Lateral Date of Exam: 05/15/24 Exam# [id number] Ordering Dr: Clayton Casper MD PROCEDURE: CHEST PA AND LATERAL REASON FOR EXAM: 73-year-old male, fever, cough and weakness. TECHNIQUE: Frontal and lateral views of the chest. COMPARISON: Chest radiographs 11/08/2023. FINDINGS: The heart size is normal. The mediastinal contour is unremarkable. Bibasilar atelectasis. No focal consolidation, pleural effusion or pneumothorax. Degenerative changes are identified within the thoracic spine. RAD/Chest PA and Lateral IMPRESSION: NEGATIVE CHEST Reading Location: [facility] CC: BANANA GRADER-C Jessica Alvarez; Dr. Clayton Casper MD Engineer Systems: Signed Normal [facility] Emergency Department Summary on 05-15-2024 Emergency Department Summary [facility] Medical Records Department [address] [place] [address] Emergency Department Summary 05/15/24 MR#: [id number] Acct: [id number] Name: SHOLA MARTINEZ Rep #: [id number] : 1950 73 From: Clayton Casper MD PCP: Jessica Alvarez NP-Florina Status:REG ER Location: ED HPI History of Present Illness Chief Complaint: Fever Detail of Chief Complaint: 3 to 4-day history of cough with fevers. No vomiting or diarrhea. Informant: patient Onset/Context/Timing Onset: Days Context: Gradual Onset Timing: Continuous Current Severity: Mild Maximum Severity: Mild Narrative Narrative: 73-year-old male history of diabetes, CKD and COPD. States he lives alone at home. Says he has not felt well for 3 to 4 days started maybe around Tom evening. Said a cough of clear phlegm. No vomiting or diarrhea. No dysuria. Mild sore throat. He has been able to drink fluids. Denies any recent exposure. Prior similar symptoms: Yes Recent Illness[facility] Medical History Adult failure to thrive Obesity Allergic rhinitis CKD (chronic kidney disease), stage II Former tobacco use COPD (chronic obstructive pulmonary disease) BPH (benign prostatic hyperplasia) Hyperlipemia HTN (hypertension) Diabetes Home Medications ???Medication ???Instructions ???Recorded ???Last Taken ???Type atorvastatin 80 mg tablet 80 mg PO QHS cholesterol 11/08/22 Unknown History cetirizine 5 mg tablet 5 mg PO QHS allergies 11/08/22 Unk nown History cholecalciferol (vitamin D3) 125 5,000 unit PO QWEEK vitamin Unknown History mcg (5,000 unit) tablet (Vitamin D3) clopidogrel 75 mg tablet 75 mg PO DAILY anti platelet 11/0811/08/22 History icosapent ethyl 1 gram capsule 2 g PO BID triglycerides 11/08/22 Unknown History (Vascepa) isosorbide mononitrate 30 mg 30 mg PO DAILY heart 11/08/22 Unkn own History tablet,extended release 24 hr linagliptin 5 mg tablet (Tradjenta) 5 mg PO DAILY diabetes 11/08/22 Unknown History losartan 25 mg tablet 25 mg PO DAILY blood pressure 08/12/23 Unknown History melatonin 5 mg tablet 5 mg PO QHS sleep 11/08/22 Unknown History metformin 500 mg tablet 500 mg PO BID diabetes 11/08/22 Un known History montelukast 10 mg tablet 10 mg PO QHS allergies 11/08/22 Un known History polyethylene glycol 3350 17 17 g PO .EVERY OTHER DAY 11/08/22 Unknown History gram/dose oral powder (Gavilax) constipation tamsulosin 0.4 mg capsule 0.8 mg PO DAILY prostate 11/08/22 Unknown History finasteride 5 mg tablet 5 mg PO DAILY #0 tabs 11/12/23 Unk nown Rx Allergy/AdvReac Type Severity Reaction Status Date / Time No Known Allergies Allergy Verified 05/15/24 05:36 Family History Mother Diabetes Cancer Father Diabetes Cancer Surgical History History of herniorrhaphy Hx of cholecystectomy Hx of appendectomy Social History housing: assisted living facility Smoking Status: Former smoker alcohol intake: never substance use type: does not use ROS ROS ED ROS Narrative Fever and cough. Constitutional Constitutional ED: Reports fever(s); Denies chills Eyes Eyes: Denies blurry vision ENT ENT ED: Reports sore throat; Denies ear pain Cardiovascular Cardiovascular: Denies chest pain Respiratory/Chest Respiratory/Chest: Reports cough and sputum; Denies dyspnea Gastrointestinal Gastrointestinal: Denies abdominal pain Genitourinary Genitourinary ED: Denies dysuria or hematuria Musculoskeletal Musculoskeletal: Reports myalgias; Denies arthralgias Integumentary Denies abscess Neurologic Neurologic: Denies headache(s) or paresthesias Psychiatric Psychiatric: Denies anxiety or depression Endocrine Endocrinology: Denies cold intolerance Hematologic/Lymphatic Hematologic/Lymphatic: Reports none Allergic/Immunologic Allergic/Immunologic ED: Denies mouth swelling, tongue swelling or urticaria EXAM Physical Exam Narrative Exam Narrative: 73-year-old male no acute distress vital signs are stable he is a low-grade temperature 100.3. He does not look septic or toxic. Pulse ox 95% on room air no hypoxia. H EENT exam pupils round reactive light. Dry mucous membranes. Posterior pharynx unremarkable. No trouble swallowing or breathing. Neck nontender no JVD. No lymphadenopathy. No meningismus. Lungs clear to auscultation bilaterally. Dry cough. No rales, rhonchi or wheezing. Equal symmetrical. Heart regular rhythm rate about 98 no murmur. Chest wall ribs nontender. Abdomen soft nontender. No peritoneal signs. Moving all 4 extremities. Nontender. No temi (more content not included)... Normal [facility] M100.678on 05-15-2024 M100.678 Copy of report sent to Infection Control Printer [id number] 05/15/24 0645 BLUCAS. FLUABV+SARS-CoV-2+RSV Pnl Resp LILLIAN+probe Normal Reference Range = Negative GeneXpert Instrument, PCR method SARS-CoV-2 (COVID 19) A Positive A INFLUENZA A Negative INFLUENZA B Negative RSV PCR Negative SARS-CoV-2 (COVID 19 PCR) Normal [facility] Comment on above: Performed By: #### M 100.678 ####[facility] [address] [place], [address] Basic Metabolic Profile (BMP )on 11-14-2023 BUN Normal 7-18 [facility] Comment on above: Result Comment: Canc elled via OM: Order cancelled - Patient discharged Performed By: #### L 100.0500, L500.2500 ####[facility] [address] [place], [address] BUN/CRE Normal 10-20 [facility] Comment on above: Result Comment: Canc elled via OM: Order cancelled - Patient discharged Performed By: #### L 100.0500, L500.2500 ####[facility] [address] [place], [address] CA,Total Normal 8.5-10.1 [facility] Comment on above: Result Comment: Canc elled via OM: Order cancelled - Patient discharged Performed By: #### L 100.0500, L500.2500 ####[facility] [address] [place], [address] CL Normal 98-107 [facility] Comment on above: Result Comment: Canc elled via OM: Order cancelled - Patient discharged Performed By: #### L 100.0500, L500.2500 ####[facility] [address] [place], [address] CO2 Normal 21.0-32.0 [facility] Comment on above: Result Comment: Canc elled via OM: Order cancelled - Patient discharged Performed By: #### L 100.0500, L500.2500 ####[facility] [address] [place], [address] CREAT,SERUM Normal 0.70-1.30 [facility] Comment on above: Result Comment: Canc elled via OM: Order cancelled - Patient discharged Performed By: #### L 100.0500, L500.2500 ####[facility] [address] [place], [address] EST GFR Normal >60 [facility] Comment on above: Result Comment: Canc elled via OM: Order cancelled - Patient discharged Performed By: #### L 100.0500, L500.2500 ####[facility] [address] [place], [address] EST GFR - AA Normal >60 [facility] Comment on above: Result Comment: Canc elled via OM: Order cancelled - Patient discharged Performed By: #### L 100.0500, L500.2500 ####[facility] [address] [place], [address] GAP Normal 5-15 [facility] Comment on above: Result Comment: Canc elled via OM: Order cancelled - Patient discharged Performed By: #### L 100.0500, L500.2500 ####[facility] [address] [place], [address] GLU Normal 74-106 [facility] Comment on above: Result Comment: Canc elled via OM: Order cancelled - Patient discharged Performed By: #### L 100.0500, L500.2500 ####[facility] [address] [place], [address] Potassium Normal 3.5-5.1 [facility] Comment on above: Result Comment: Canc elled via OM: Order cancelled - Patient discharged Performed By: #### L 100.0500, L500.2500 ####[facility] [address] [place], [address] Basic Metabolic Profile (BMP) Normal 136-145 [facility] Comment on above: Result Comment: Canc elled via OM: Order cancelled - Patient discharged Performed By: #### L 100.0500, L500.2500 ####[facility] [address] [place], [address] CBC-Complete Blood Cnt No Di ffon 11-14-2023 HCT Normal 40-54 [facility] Comment on above: Result Comment: Canc elled via OM: Order cancelled - Patient discharged Performed By: #### L 100.0500, L500.2500 ####[facility] [address] [place], [address] HGB Normal 13.0-16.5 [facility] Comment on above: Result Comment: Canc elled via OM: Order cancelled - Patient discharged Performed By: #### L 100.0500, L500.2500 ####[facility] [address] [place], [address] MCH Normal 27.0-32.0 [facility] Comment on above: Result Comment: Canc elled via OM: Order cancelled - Patient discharged Performed By: #### L 100.0500, L500.2500 ####[facility] [address] [place], [address] MCHC Normal 32-36 [facility] Comment on above: Result Comment: Canc elled via OM: Order cancelled - Patient discharged Performed By: #### L 100.0500, L500.2500 ####[facility] [address] [place], [address] MCV Normal 80-94 [facility] Comment on above: Result Comment: Canc elled via OM: Order cancelled - Patient discharged Performed By: #### L 100.0500, L500.2500 ####[facility] [address] [place], [address] PLT Normal 150-450 [facility] Comment on above: Result Comment: Canc elled via OM: Order cancelled - Patient discharged Performed By: #### L 100.0500, L500.2500 ####[facility] [address] [place], [address] RBC Normal 4.6-6.2 [facility] Comment on above: Result Comment: Canc elled via OM: Order cancelled - Patient discharged Performed By: #### L 100.0500, L500.2500 ####[facility] [address] [place], [address] RDW CV Normal 11.6-14.6 [facility] Comment on above: Result Comment: Canc elled via OM: Order cancelled - Patient discharged Performed By: #### L 100.0500, L500.2500 ####[facility] [address] [place], [address] RDW SD Normal 35.1-43.9 [facility] Comment on above: Result Comment: Canc elled via OM: Order cancelled - Patient discharged Performed By: #### L 100.0500, L500.2500 ####[facility] [address] [place], [address] WBC Normal 4.4-11.0 [facility] Comment on above: Result Comment: Canc elled via OM: Order cancelled - Patient discharged Performed By: #### L 100.0500, L500.2500 ####[facility] [address] [place], [address] Culture, Blood (WB)on 2023 CUB Blood cultures x2, f rom two different sites ANAEROBIC BOTTLE GRAM STAIN= GRAM POSITIVE COCCI IN CLUSTERS RESULTS CALLED TO [facility] 11/08/231950 Lavonne Pelayo. REPORT READ BACK BY SAME. Culture, Blood (WB) Clinical correlation necessary, Possible skin contamination. Staphylococcus capitis Amount Growth Growth Staphylococcus capitis: REACTION cefOXitin Susc Islt Clindamycin Islt FRANCISCO J 0.25 S Clindamycin.induced Susc Islt NEG Erythromycin Islt FRANCISCO J <=0.25 S Gentamicin Islt FRANCISCO J <=0.5 S Oxacillin Susc Islt R Tetracycline Islt FRANCISCO J >=16 R Vancomycin Islt FRANCISCO J <=0.5 S Normal [facility] Comment on above: Performed By: #### M 200.1000 ####[facility] [address] [place], [address] Basic Metabolic Profile (BMP )on 11-12-2023 BUN/CRE 11.4 RATIO Normal 10-20 [facility] Comment on above: Performed By: #### L 500.2500, L100.0100 ####[facility] [address] [place], [address] CA,Total 8.2 mg/dL Low 8.5-10.1 [facility] Comment on above: Performed By: #### L 500.2500, L100.0100 ####[facility] [address] [place], [address] Chloride [Moles/Vol] 105 mmol/L Normal 98-107 [facility] Comment on above: Performed By: #### L 500.2500, L100.0100 ####[facility] [address] [place], [address] CO2 [Moles/Vol] 24.0 mmol/L Normal 21.0-32.0 [facility] Comment on above: Performed By: #### L 500.2500, L100.0100 ####[facility] [address] [place], [address] Creatinine [Mass/Vol] 0.70 mg/dL Normal 0.70-1.30 [facility] Comment on above: Result Comment: The validity of the calculated GFR GFRAA in patients over 70 years has not been determined. Clinical correlation is essential. Performed By: #### L 500.2500, L100.0100 ####[facility] [address] [place], [address] ECRCL 110.60 ml/min Normal [facility] Comment on above: Performed By: #### L 500.2500, L100.0100 ####[facility] [address] [place], [address] EST GFR - AA 141 mL/min Normal >60 [facility] Comment on above: Result Comment: Afri can [place] GFR Calc Performed By: #### L 500.2500, L100.0100 ####[facility] [address] [place], [address] GAP 6 Normal 5-15 [facility] Comment on above: Performed By: #### L 500.2500, L100.0100 ####[facility] [address] [place], [address] GFR/1.73 sq M.predicted among non-blacks MDRD (S/P/Bld) [Vol rate/Area] 117 mL/min/{1.73_m2} Normal >60 [facility] Comment on above: Result Comment: Non- GFR Calc Performed By: #### L 500.2500, L100.0100 ####[facility] [address] [place], [address] Glucose [Mass/Vol] 150 mg/dL High 74-106 [facility] Comment on above: Result Comment: Fast ing Glucose result greater than or equal to 126 mg/dL suggests DIABETES MELLITUS per A.D.A. criteria. Performed By: #### L 500.2500, L100.0100 ####[facility] [address] [place], [address] Potassium [Moles/Vol] 3.6 mmol/L Normal 3.5-5.1 [facility] Comment on above: Performed By: #### L 500.2500, L100.0100 ####[facility] [address] [place], [address] Sodium [Moles/Vol] 135 mmol/L Low 136-145 [facility] Comment on above: Performed By: #### L 500.2500, L100.0100 ####[facility] [address] [place], [address] Urea nitrogen [Mass/Vol] 8 mg/dL Normal 7-18 [facility] Comment on above: Performed By: #### L 500.2500, L100.0100 ####[facility] [address] [place], [address] Bedside Glucoseon 11-12-2023 FINGERSTICK GLU 152 mg/dL High 74-106 [facility] Comment on above: Result Comment: ADA GEMENT OF PATIENT CARE PER NURSING PROTOCOL Performed By: #### L 501.080 ####[facility] [address] [place], [address] FINGERSTICK GLU 137 mg/dL High 74-106 [facility] Comment on above: Result Comment: ADA GEMENT OF PATIENT CARE PER NURSING PROTOCOL Performed By: #### L 501.080 ####[facility] [address] [place], [address] CBC W/Diff, Automatedon 10-31 Absolute Lymph 0.77 X10 3/uL Low 0.83-4.51 [facility] Comment on above: Performed By: #### L 500.2500, L100.0100 ####[facility] [address] [place], [address] Absolute Neut 2.8 X10 3/uL Normal 2.0-7.7 [facility] Comment on above: Performed By: #### L 500.2500, L100.0100 ####[facility] [address] [place], [address] Basophils/100 WBC (Bld) 0.5 % Normal 0-1 [facility] Comment on above: Performed By: #### L 500.2500, L100.0100 ####[facility] [address] [place], [address] Eosinophils/100 WBC (Bld) 2.7 % Normal 0-5 [facility] Comment on above: Performed By: #### L 500.2500, L100.0100 ####[facility] [address] [place], [address] Erythrocyte distribution width (RBC) [Ratio] 11.6 % Normal 11.6-14.6 [facility] Comment on above: Performed By: #### L 500.2500, L100.0100 ####[facility] [address] [place], [address] Hematocrit (Bld) [Volume fraction] 35.5 % Low 40-54 [facility] Comment on above: Performed By: #### L 500.2500, L100.0100 ####[facility] [address] [place], [address] Hemoglobin (Bld) [Mass/Vol] 12.3 g/dL Low 13.0-16.5 [facility] Comment on above: Performed By: #### L 500.2500, L100.0100 ####[facility] [address] [place], [address] IG% 0.500 Normal 0.0-0.9 [facility] Comment on above: Result Comment: IG% - Immature Granulocytes (promyelocytes, myelocytes and metamyelocytes) > 1% indicates that a LEFT SHIFT is Present. Performed By: #### L 500.2500, L100.0100 ####[facility] [address] [place], [address] Lymphocytes/100 WBC (Bld) 18.6 % Low 19-41 [facility] Comment on above: Performed By: #### L 500.2500, L100.0100 ####[facility] [address] [place], [address] MCH (RBC) [Entitic mass] 30.0 pg Normal 27.0-32.0 [facility] Comment on above: Performed By: #### L 500.2500, L100.0100 ####[facility] [address] [place], [address] MCHC (RBC) [Mass/Vol] 34.6 g/dL Normal 32-36 [facility] Comment on above: Performed By: #### L 500.2500, L100.0100 ####[facility] [address] [place], [address] MCV (RBC) [Entitic vol] 86.6 fL Normal 80-94 [facility] Comment on above: Performed By: #### L 500.2500, L100.0100 ####[facility] [address] [place], [address] Monocytes/100 WBC (Bld) 10.9 % High 0-10 [facility] Comment on above: Performed By: #### L 500.2500, L100.0100 ####[facility] [address] [place], [address] Neutrophils/100 WBC (Bld) 66.8 % Normal 47-70 [facility] Comment on above: Performed By: #### L 500.2500, L100.0100 ####[facility] [address] [place], [address] Nucleated RBC (Bld) [#/Vol] 0 10*3/uL Normal 0-5 [facility] Comment on above: Performed By: #### L 500.2500, L100.0100 ####[facility] [address] [place], [address] Platelet mean volume (Bld) [Entitic vol] 8.7 fL Normal 6.2-12.0 [facility] Comment on above: Performed By: #### L 500.2500, L100.0100 ####[facility] [address] [place], [address] Platelets (Bld) [#/Vol] 117 10*3/uL Low 150-450 [facility] Comment on above: Performed By: #### L 500.2500, L100.0100 ####[facility] [address] [place], [address] RBC (Bld) [#/Vol] 4.10 10*6/uL Low 4.6-6.2 [facility] Comment on above: Performed By: #### L 500.2500, L100.0100 ####[facility] [address] [place], [address] RDW SD 36.7 fl Normal 35.1-43.9 [facility] Comment on above: Performed By: #### L 500.2500, L100.0100 ####[facility] [address] [place], [address] WBC (Bld) [#/Vol] 4.1 10*3/uL Low 4.4-11.0 [facility] Comment on above: Performed By: #### L 500.2500, L100.0100 ####[facility] [address] [place], [address] Bedside Glucoseon 11-11-2023 FINGERSTICK GLU 165 mg/dL High 74-106 [facility] Comment on above: Result Comment: ADA GEMENT OF PATIENT CARE PER NURSING PROTOCOL Performed By: #### L 501.080 #### [facility] [address] [place], [address] FINGERSTICK GLU 165 mg/dL High 74-106 [facility] Comment on above: Result Comment: ADA GEMENT OF PATIENT CARE PER NURSING PROTOCOL Performed By: #### L 501.080 ####[facility] [address] [place], [address] FINGERSTICK GLU 170 mg/dL High 74-106 [facility] Comment on above: Result Comment: ADA GEMENT OF PATIENT CARE PER NURSING PROTOCOL Performed By: #### L 501.080 ####[facility] [address] [place], [address] FINGERSTICK GLU 133 mg/dL High 74-106 [facility] Comment on above: Result Comment: ADA GEMENT OF PATIENT CARE PER NURSING PROTOCOL Performed By: #### L 501.080 #### [facility] [address] [place], [address] Basic Metabolic Profile (BMP )on 11-10-2023 BUN/CRE 13.3 RATIO Normal 10-20 [facility] Comment on above: Performed By: #### L 501.080 #### [facility] [address] [place], [address] CA,Total 7.7 mg/dL Low 8.5-10.1 [facility] Comment on above: Performed By: #### L 501.080 #### [facility] [address] [place], [address] Chloride [Moles/Vol] 108 mmol/L High 98-107 [facility] Comment on above: Performed By: #### L 501.080 #### [facility] [address] [place], [address] CO2 [Moles/Vol] 24.0 mmol/L Normal 21.0-32.0 [facility] Comment on above: Performed By: #### L 501.080 #### [facility] [address] [place], [address] Creatinine [Mass/Vol] 0.75 mg/dL Normal 0.70-1.30 [facility] Comment on above: Result Comment: The validity of the calculated GFR GFRAA in patients over 70 years has not been determined. Clinical correlation is essential. Performed By: #### L 501.080 #### [facility] [address] [place], [address] ECRCL 110.36 ml/min Normal [facility] Comment on above: Performed By: #### L 501.080 #### [facility] [facility] [address] [place], [address] EST GFR - AA 131 mL/min Normal >60 [facility] Comment on above: Result Comment: Afri can [place] GFR Calc Performed By: #### L 501.080 #### [facility] [address] [place], [address] GAP 6 Normal 5-15 [facility] Comment on above: Performed By: #### L 501.080 #### [facility] [address] [place], [address] GFR/1.73 sq M.predicted among non-blacks MDRD (S/P/Bld) [Vol rate/Area] 108 mL/min/{1.73_m2} Normal >60 [facility] Comment on above: Result Comment: Non- GFR Calc Performed By: #### L 501.080 #### [facility] [address] [place], [address] Glucose [Mass/Vol] 137 mg/dL High 74-106 [facility] Comment on above: Result Comment: Fast ing Glucose result greater than or equal to 126 mg/dL suggests DIABETES MELLITUS per A.D.A. criteria. Performed By: #### L 501.080 #### [facility] [address] [place], [address] Potassium [Moles/Vol] 3.6 mmol/L Normal 3.5-5.1 [facility] Comment on above: Performed By: #### L 501.080 #### [facility] [address] [place], [address] Sodium [Moles/Vol] 138 mmol/L Normal 136-145 [facility] Comment on above: Performed By: #### L 501.080 #### [facility] [address] [place], [address] Urea nitrogen [Mass/Vol] 10 mg/dL Normal 7-18 [facility] Comment on above: Performed By: #### L 501.080 #### [facility] [address] [place], [address] Bedside Glucoseon 11-10-2023 FINGERSTICK GLU 159 mg/dL High 74-106 [facility] Comment on above: Result Comment: ADA GEMENT OF PATIENT CARE PER NURSING PROTOCOL Performed By: #### L 501.080 ####[facility] [address] [place], [address] FINGERSTICK GLU 169 mg/dL High 74-106 [facility] Comment on above: Result Comment: ADA GEMENT OF PATIENT CARE PER NURSING PROTOCOL Performed By: #### L 501.080 #### [facility] [address] [place], [address] FINGERSTICK GLU 154 mg/dL High 74-106 [facility] Comment on above: Result Comment: ADA GEMENT OF PATIENT CARE PER NURSING PROTOCOL Performed By: #### L 501.080 #### [facility] [address] [place], [address] FINGERSTICK GLU 144 mg/dL High 74-106 [facility] Comment on above: Result Comment: ADA GEMENT OF PATIENT CARE PER NURSING PROTOCOL Performed By: #### L 501.080 #### [facility] [address] [place], [address] CBC W/Diff, Automatedon 10-31 Absolute Lymph 0.60 X10 3/uL Low 0.83-4.51 [facility] Comment on above: Performed By: #### L 501.080 #### [facility] [address] [place], [address] Absolute Neut 3.1 X10 3/uL Normal 2.0-7.7 [facility] Comment on above: Performed By: #### L 501.080 #### [facility] [address] [place], [address] Basophils/100 WBC (Bld) 0.5 % Normal 0-1 [facility] Comment on above: Performed By: #### L 501.080 #### [facility] [address] [place], [address] Eosinophils/100 WBC (Bld) 4.0 % Normal 0-5 [facility] Comment on above: Performed By: #### L 501.080 #### [facility] [address] [place], [address] Erythrocyte distribution width (RBC) [Ratio] 11.9 % Normal 11.6-14.6 [facility] Comment on above: Performed By: #### L [id number] #### [facility] [address] [place], [address] Hematocrit (Bld) [Volume fraction] 35.4 % Low 40-54 [facility] Comment on above: Performed By: #### L 501.080 #### [facility] [address] [place], [address] Hemoglobin (Bld) [Mass/Vol] 12.2 g/dL Low 13.0-16.5 [facility] Comment on above: Performed By: #### L 501.080 #### [facility] [address] [place], [address] IG% 0.500 Normal 0.0-0.9 [facility] Comment on above: Result Comment: IG% - Immature Granulocytes (promyelocytes, myelocytes and metamyelocytes) > 1% indicates that a LEFT SHIFT is Present. Performed By: #### L 501.080 #### [facility] [address] [place], [address] Lymphocytes/100 WBC (Bld) 14.0 % Low 19-41 [facility] Comment on above: Performed By: #### L 501.080 #### [facility] [address] [place], [address] MCH (RBC) [Entitic mass] 30.1 pg Normal 27.0-32.0 [facility] Comment on above: Performed By: #### L 501.080 #### [facility] [address] [place], [address] MCHC (RBC) [Mass/Vol] 34.5 g/dL Normal 32-36 [facility] Comment on above: Performed By: #### L 501.080 #### [facility] [address] [place], [address] MCV (RBC) [Entitic vol] 87.4 fL Normal 80-94 [facility] Comment on above: Performed By: #### L 501.080 #### [facility] [address] [place], [address] Monocytes/100 WBC (Bld) 9.3 % Normal 0-10 [facility] Comment on above: Performed By: #### L 501.080 #### [facility] [address] [place], [address] Neutrophils/100 WBC (Bld) 71.7 % High 47-70 [facility] Comment on above: Performed By: #### L 501.080 #### [facility] [address] [place], [address] Nucleated RBC (Bld) [#/Vol] 0 10*3/uL Normal 0-5 [facility] Comment on above: Performed By: #### L 501.080 #### [facility] [address] [place], [address] Platelet mean volume (Bld) [Entitic vol] 9.1 fL Normal 6.2-12.0 [facility] Comment on above: Performed By: #### L [id number] #### [facility] [address] [place], [address] Platelets (Bld) [#/Vol] 106 10*3/uL Low 150-450 [facility] Comment on above: Performed By: #### L 501.080 #### [facility] [address] [place], [address] RBC (Bld) [#/Vol] 4.05 10*6/uL Low 4.6-6.2 [facility] Comment on above: Performed By: #### L 501.080 #### [facility] [address] [place], [address] RDW SD 38.0 fl Normal 35.1-43.9 [facility] Comment on above: Performed By: #### L 501.080 #### [facility] [address] [place], [address] WBC (Bld) [#/Vol] 4.3 10*3/uL Low 4.4-11.0 [facility] Comment on above: Performed By: #### L 501.080 #### [facility] [address] [place], [address] Consultation - Urologyon Consultation - Urology [facility] Medical Records Department [address] [place] [address] Consultation - Urology 11/10/23 1240 MR#: [id number] Acct: [id number] Name: JUANSHOLA Demarco Rep #: [id number] : 1950 73 From: Kaushik Bryant MD PCP: Jessica Alvarez, BANANA GRADER-Florina Status:ADM IN Location: [place]3 [id number] HPI Consult Data Date of Consult: 11/10/23 HPI Narrative Reason for Consultation: Frequency of urination HPI Narrative: SHOLA MARTINEZ, is a 73 M who currently in the hospital with a possible urinary tract infection and BPH exacerbation. He is on Flomax. Currently has a Knight catheter in place because he is having too much frequent urination and the Knight catheter was placed. At this point he can follow- up as an outpatient in my office to discuss options of management for his prostate we could consider doing prostate surgery or adding finasteride 5 mg daily to his Flomax regimen and see if this will help with his prostate problems. On discharge he can go home with a catheter and follow-up in my office for further care. Call with questions [facility] Medical History Adult failure to thrive Obesity Allergic rhinitis CKD (chronic kidney disease), stage II Former tobacco use COPD (chronic obstructive pulmonary disease) BPH (benign prostatic hyperplasia) Hyperlipemia HTN (hypertension) Diabetes Home Medications ???Medication ???Instructions ???Recorded ???Last Taken ???Type atorvastatin 80 mg tablet 80 mg PO QHS cholesterol 11/08/22 Unknown History cetirizine 5 mg tablet 5 mg PO QHS allergies 11/08/22 Unknown History cholecalciferol (vitamin D3) 125 5,000 unit PO QWEEK vitamin 11/08/22 Unknown History mcg (5,000 unit) tablet (Vitamin D3) clopidogrel 75 mg tablet 75 mg PO DAILY anti platelet 11/08/22 11/08/22 History icosapent ethyl 1 gram capsule 2 g PO BID triglycerides 11/08/22 Unknown History (Vascepa) isosorbide mononitrate 30 mg 30 mg PO DAILY heart 11/08/22 Unknown History tablet,extended release 24 hr linagliptin 5 mg tablet (Tradjenta) 5 mg PO DAILY diabetes 11/08/22 Unknown History losartan 25 mg tablet 25 mg PO DAILY blood pressure 11/08/22 Unknown History melatonin 5 mg tablet 5 mg PO QHS sleep 11/08/22 Unknown History metformin 500 mg tablet 500 mg PO BID diabetes 11/08/22 Unknown History montelukast 10 mg tablet 10 mg PO QHS allergies 11/08/22 Unknown History polyethylene glycol 3350 17 17 g PO .EVERY OTHER DAY 11/08/22 Unknown History gram/dose oral powder (Gavilax) constipation tamsulosin 0.4 mg capsule 0.8 mg PO DAILY prostate 11/08/22 Unknown History Allergy/AdvReac Type Severity Reaction Status Date / Time No Known Allergies Allergy Verified 11/08/23 01:04 Family History Mother Diabetes Cancer Father Diabetes Cancer Surgical History History of herniorrhaphy Hx of cholecystectomy Hx of appendectomy Social History housing: assisted living facility Smoking Status: Former smoker alcohol intake: never substance use type: does not use Lab / Micro Data 11/10/23 06:57 11/10/23 06:57 Labs: Laboratory Results - last 24 hr 11/09/23 17:00: POC Glucose 154 H 11/09/23 21:43: POC Glucose 128 H 11/10/23 06:57: WBC 4.3 L, RBC 4.05 L, Hgb 12.2 L, Hct 35.4 L, MCV 87.4, MCH 30.1, MCHC 34.5, RDW Std Deviation 38.0, RDW Coeff of Gage 11.9, Plt Count 106 L, MPV 9.1, Immature Gran % (Auto) 0.500, N eut % (Auto) 71.7 H, Lymph % (Auto) 14.0 L, [place] % (Auto) 9.3, Eos % (Auto) 4.0, Baso % (Auto) 0.5, Absolute Neuts (auto) 3.1, Absolute Lymphs (auto) 0.60 L, Nucleated RBC % 0, Sodium 138, Potassium 3.6, Chloride 108 H, Carbon Dioxide 24.0, Anion Gap 6, BUN 10, Creatinine 0.75, Estim Creat Clear Calc 110.36, Est GFR (MDRD) Af Amer 131, Est GFR (MDRD) Non-Af 108, BUN/Creatinine Ratio 13.3, G lucose 137 H, Calcium 7.7 L 11/10/23 07:13: POC Glucose 144 H 11/10/23 11:34: POC Glucose 154 H Micro: Microbiology 11/08/23 01:58 Urine, Clean Catch Urine Culture - Final Klebsiella pneumoniae sp pneum 11/08/23 01:29 Blood Culture (Wb) - Right Forearm Blood Culture - Preliminary Staphylococcus capitis 11/10/23 1241 Cosigner Signature (if applicable): CC: TARI Alvarez Signed Normal [facility] Urine Cultureon 11-10-2023 U[facility] Identification and sensitivity to follow. Klebsiella pneumoniae sp pneum [place] Count 50,000-80,000 Klebsiella pneumoniae sp pneum: REACTION Ampicillin Islt FRANCISCO J >=32 R Ampicillin+Sulbac Islt FRANCISCO J 4 S ceFAZolin Islt FRANCISCO J <=4 S Cefepime Islt FRANCISCO J <=0.12 S cefTRIAXone Islt FRANCISCO J <=0.25 S Ciprofloxacin Islt FRANCISCO J <=0.25 S Ertapenem Islt FRANCISCO J <=0.12 S B-Lactamase Extended Susc Islt NEG Gentamicin Islt FRANCISCO J <=1 S Imipenem Islt FRANCISCO J <=0.25 S levoFLOXacin Islt FRANCISCO J <=0.12 S Nitrofurantoin Islt FRANCISCO J 32 S Pip+Tazo Islt FRANCISCO J <=4 S Tobramycin Islt FRANCISCO J <=1 S TMP SMX Islt FRANCISCO J <=20 S Normal [facility] Comment on above: Performed By: #### M [id number] ####[facility] [address] [facility] [id number] Basic Metabolic Profile (BMP )on 11-09-2023 BUN/CRE 14.7 RATIO Normal 10-20 [facility] Comment on above: Performed By: #### L 501.080 #### [facility] [address] [facility] [id number] CA,Total 7.6 mg/dL Low 8.5-10.1 [facility] Comment on above: Performed By: #### L 501.080 #### [facility] [address] [facility] [address] Chloride [Moles/Vol] 105 mmol/L Normal 98-107 [facility] Comment on above: Performed By: #### L 501.080 #### [facility] [address] [place], [address] CO2 [Moles/Vol] 24.0 mmol/L Normal 21.0-32.0 [facility] Comment on above: Performed By: #### L 501.080 #### [facility] [address] [place], [address] Creatinine [Mass/Vol] 0.75 mg/dL Normal 0.70-1.30 [facility] Comment on above: Result Comment: The validity of the calculated GFR GFRAA in patients over 70 years has not been determined. Clinical correlation is essential. Performed By: #### L 501.080 #### [facility] [address] [place], [address] ECRCL 110.36 ml/min Normal [facility] Comment on above: Performed By: #### L 501.080 #### [facility] [address] [place], [address] EST GFR - AA 131 mL/min Normal >60 [facility] Comment on above: Result Comment: Afri can [place] GFR Calc Performed By: #### L 501.080 #### [facility] [address] [place], [address] GAP 6 Normal 5-15 [facility] Comment on above: Performed By: #### L 501.080 #### [facility] [address] [place], [address] GFR/1.73 sq M.predicted among non-blacks MDRD (S/P/Bld) [Vol rate/Area] 108 mL/min/{1.73_m2} Normal >60 [facility] Comment on above: Result Comment: Non- GFR Calc Performed By: #### L 501.080 #### [facility] [address] [place], [address] Glucose [Mass/Vol] 132 mg/dL High 74-106 [facility] Comment on above: Result Comment: Fast ing Glucose result greater than or equal to 126 mg/dL suggests DIABETES MELLITUS per A.D.A. criteria. Performed By: #### L 501.080 #### [facility] [address] [place], [address] Potassium [Moles/Vol] 3.8 mmol/L Normal 3.5-5.1 [facility] Comment on above: Performed By: #### L 501.080 #### [facility] [address] [place], [address] Sodium [Moles/Vol] 135 mmol/L Low 136-145 [facility] Comment on above: Performed By: #### L 501.080 #### [facility] [address] [place], [address] Urea nitrogen [Mass/Vol] 11 mg/dL Normal 7-18 [facility] Comment on above: Performed By: #### L 501.080 #### [facility] [address] [place], [address] Bedside Glucoseon 11-09-2023 FINGERSTICK GLU 128 mg/dL High 74-106 [facility] Comment on above: Result Comment: ADA GEMENT OF PATIENT CARE PER NURSING PROTOCOL Performed By: #### L 501.080 #### [facility] [address] [place], [address] FINGERSTICK GLU 154 mg/dL High 74-106 [facility] Comment on above: Result Comment: ADA GEMENT OF PATIENT CARE PER NURSING PROTOCOL Performed By: #### L 501.080 #### [facility] [address] [place], [address] FINGERSTICK GLU 151 mg/dL High 74-106 [facility] Comment on above: Result Comment: ADA GEMENT OF PATIENT CARE PER NURSING PROTOCOL Performed By: #### L 501.080 #### [facility] [address] [place], [address] FINGERSTICK GLU 115 mg/dL High 74-106 [facility] Comment on above: Result Comment: ADA SINGH OF PATIENT CARE PER NURSING PROTOCOL Performed By: #### L 501.080 #### [facility] [address] [place], [address] CBC W/Diff, Automatedon 08-0 9-4 Absolute Lymph 0.63 X10 3/uL Low 0.83-4.51 [facility] Comment on above: Performed By: #### L 501.080 #### [facility] [address] [place], [address] Absolute Neut 5.9 X10 3/uL Normal 2.0-7.7 [facility] Comment on above: Performed By: #### L 501.080 #### [facility] [address] [place], [address] Basophils/100 WBC (Bld) 0.3 % Normal 0-1 [facility] Comment on above: Performed By: #### L 501.080 #### [facility] [address] [place], [address] Eosinophils/100 WBC (Bld) 0.7 % Normal 0-5 [facility] Comment on above: Performed By: #### L 501.080 #### [facility] [address] [place], [address] Erythrocyte distribution width (RBC) [Ratio] 12.0 % Normal 11.6-14.6 [facility] Comment on above: Performed By: #### L [id number] #### [facility] [address] [place], [address] Hematocrit (Bld) [Volume fraction] 36.1 % Low 40-54 [facility] Comment on above: Performed By: #### L 501.080 #### [facility] [address] [place], [address] Hemoglobin (Bld) [Mass/Vol] 12.5 g/dL Low 13.0-16.5 [facility] Comment on above: Performed By: #### L 501.080 #### [facility] [address] [place], [address] IG% 0.300 Normal 0.0-0.9 [facility] Comment on above: Result Comment: IG% - Immature Granulocytes (promyelocytes, myelocytes and metamyelocytes) > 1% indicates that a LEFT SHIFT is Present. Performed By: #### L 501.080 #### [facility] [address] [place], [address] Lymphocytes/100 WBC (Bld) 8.9 % Low 19-41 [facility] Comment on above: Performed By: #### L 501.080 #### [facility] [address] [place], [address] MCH (RBC) [Entitic mass] 30.7 pg Normal 27.0-32.0 [facility] Comment on above: Performed By: #### L 501.080 #### [facility] [address] [place], [address] MCHC (RBC) [Mass/Vol] 34.6 g/dL Normal 32-36 [facility] Comment on above: Performed By: #### L 501.080 #### [facility] [address] [place], [address] MCV (RBC) [Entitic vol] 88.7 fL Normal 80-94 [facility] Comment on above: Performed By: #### L 501.080 #### [facility] [address] [place], [address] Monocytes/100 WBC (Bld) 6.2 % Normal 0-10 [facility] Comment on above: Performed By: #### L 501.080 #### [facility] [address] [place], [address] Neutrophils/100 WBC (Bld) 83.6 % High 47-70 [facility] Comment on above: Performed By: #### L 501.080 #### [facility] [address] [place], [address] Nucleated RBC (Bld) [#/Vol] 0 10*3/uL Normal 0-5 [facility] Comment on above: Performed By: #### L 501.080 #### [facility] [address] [place], [address] Platelet mean volume (Bld) [Entitic vol] 9.1 fL Normal 6.2-12.0 [facility] Comment on above: Performed By: #### L [id number] #### [facility] [address] [place], [address] Platelets (Bld) [#/Vol] 100 10*3/uL Low 150-450 [facility] Comment on above: Performed By: #### L 501.080 #### [facility] [address] [place], [address] RBC (Bld) [#/Vol] 4.07 10*6/uL Low 4.6-6.2 [facility] Comment on above: Performed By: #### L 501.080 #### [facility] [address] [place], [address] RDW SD 38.7 fl Normal 35.1-43.9 [facility] Comment on above: Performed By: #### L 501.080 #### [facility] [address] [place], [address] WBC (Bld) [#/Vol] 7.1 10*3/uL Normal 4.4-11.0 [facility] Comment on above: Performed By: #### L 501.080 #### [facility] [address] [place], [address] Lactic Acidon 11-09-2023 Lactate [Moles/Vol] 1.0 mmol/L Normal 0.4-1.9 [facility] Comment on above: Order Comment: Y Performed By: #### L 503.6005 ####[facility] [address] [place], [place], [address] Modified Barium Swallow Stud yon 11-09-2023 Modified Barium Swallow Study [facility] Speech Pathology [address] [place] [address] Modified Barium Swallow Study MR#: [id number] Acct: [id number] Name: SHOLA MARTINEZ Rep #: [id number] : 1950 73 From: Erika Rahman M.A., [facility]-POKER ROOM MANAGER Modified Barium Swallow Patient Information Study Date: 11/09/23 Study Time: 09:15 Direct Billable Minutes: 120 Total Minutes procedure reportin Diagnosis: PNA J18.9 Referring Physician: Mark Anthony Guzman Reason for Referral: Objectively assess swallow function, assess risk for aspiration, and determine recommendations for least restrictive diet textures and compensatory strategies to improve safety of swallow. Medical History: Patient presented to [facility] ED on 11/08/23 with history of onset over last 24 hours nausea, emesis, and loose stools which has been constant with inability to keep any food/drink down. Patient also had fever of 101 at home. Chest x-ray with bilateral atelectasis versus infiltrate, left greater than right. COVID/influenza/RSV negative. Patient was admitted for management of UTI, PNA, and lactic acidosis. He was initially placed on clear liquids due to N/V/D. He was then made NPO by RN due to concerns for choking/aspiration on thin liquids. He was referred for ST consult for dysphagia evaluation. BSE completed 11/23, which recommended NPO with sips and chips supervised after oral care and meds whole in . Patient had coughing with thin liquids, most notably ice water via cup. POKER ROOM MANAGER recommended MBSS to further assess concerns for aspiration and to determine recommendations for LRD textures. PMH: Adult failure to thrive, Obesity, Allergic rhinitis, CKD stage II, Former tobacco use, COPD, BPH (benign prostatic hyperplasia), HLD, HTN, Diabetes, COVID, Chronic thrombocytopenia, Former Tobacco use. Current Diet Ordered: NPO - sips and chips Dentition: Natural Teeth, Decay and Missing Teeth Comment: Patient had difficulty following commands for chin tuck. He needed min-moderate cues for following through with keeping bolus size small. Penetration-Aspiration Scale Penetration-Aspiration Scale: OBJECTIVE ASSESSMENT OF SWALLOW FUNCTION (QUANTITATIVE ??? PER TRIAL): PENETRATION / ASPIRATION SCALE (ANGELES): 1 = does not enter airway 2 = enters airway/above vocal folds/ejected 3 = enters airway/above vocal folds/not ejected 4 = enters airway/contacts vocal folds/ejected 5 = enters airway/contacts vocal folds/not ejected 6 = enters airway/below vocal folds/ejected 7 = enters airway/below vocal folds/not ejected despite effort 8 = enters airway/below vocal folds/no effort VIDEOFLOROSCOPIC SCALE SCORE (ANGELES): Grade I = aspiration of material that has penetrated into the laryngeal vestibule, intact cough reflex Grade II = aspiration < 10 % of the bolus, intact cough reflex Grade III = aspiration of < 10 % of the bolus, reduced cough reflex or aspiration of > 10 % of the bolus, intact cough reflex Grade IV = aspiration of > 10 % of the bolus, reduced cough reflex Penetration-Aspiration Scale Score Thin Liquid via teaspoon: Result: 8= enters airway/below vocal folds/no effort Thin Liquid via teaspoon Trial 2: Result: 2= enter airway/above vocal folds/ejected Thin Liquid via small single sip: cup: Result: 8= enters airway/below vocal folds/no effort Comment: Cued cough and re-swallow - somewhat effective. [place] Thick Liquid via small single sip: cup: Result: 3= enters airways/above vocal folds/not ejected Comment: Cued cough and re-swallow - somewhat effective. [place] Thick Liquid via small single sip: cup Trial 2: Result: 5= enters airways/contacts vocal folds/not ejected [place] Thick Liquid via small single sip: cup: Result: 1= does not enter airway Pudding via teaspoon: Result: 1= does not enter airway 1/2 Cookie: Result: 1= does not enter airway [place] Thick Liquid via small single sip: cup Effortful swallow: Result: 1= does not enter airway Thin Liquid via single sip: straw: Result: 1= does not enter airway Thin Liquid via single sip: straw Trial 2: Result: 7= enters airways/below vocal folds/not ejected despite effort Comment: Cued cough and re-swallow - somewhat effective. [place] Thick Liquid via large single sip: cup Effortful swallow: Result: 5= enters airways/contacts vocal folds/not ejected [place] Thick Liquid via small single sip: cup Effortful swallow Trial 2: Result: 1= does not enter airway Comment: SILENT post prandial aspiration of previous trial Thin Liquid via small single sip: cup Trial 2: Result: 3= enters airways/above vocal folds/not ejected Comment: [employer]GER cued him for chin tuck with moderate verbal cues and model with no follow-through [place] Thick Liquid via small single sip: cup Effortful swallow Trial 3: Result: 1= does not enter airway Comment: Cued cough and re-swallow - somewhat effective. Thin Liquid via small single sip: cup Effortful swa (more content not included)... Normal [facility] Abdomen/Pelvis W IV Cont ONL Yon 11-08-2023 Abdomen/Pelvis W IV Cont ONLY [facility] Imaging Services [address], [place] [id number] Abdomen/Pelvis W IV Cont ONLY MR#: [id number] Acct: [id number] Name: SHOLA MARTINEZ Rep #: [id number] : 1950 M 73 From: Stepan Potts MD PCP: Jessica Alvarez, BANANA GRADER-C Status: ADM IN Study: Abdomen/Pelvis W IV Cont ONLY Date of Exam: Exam# [id number] Ordering Dr: Kaushik Bryant MD [id number] STUDY: CT ABDOMEN AND PELVIS WITH CONTRAST REASON FOR EXAM: Male, 73 years old. UTI, dysuria RADIATION DOSAGE (If Supplied By Facility): CTDIvol = ( 15.37 ) mGy, DLP = ( 1499.80 ) mGycm TECHNIQUE: Transaxial images were obtained from the dome of the diaphragm to the symphysis pubis without oral contrast. IV 100mL Isovue-300 was administered. Sagittal and coronal images were reconstructed. Individualized dose optimization techniques were used for this CT. COMPARISON: None. FINDINGS: There is right lower lung atelectasis. There are mitral annular and coronary artery calcifications. There is hepatomegaly with diffuse hepatic enlargement. There are surgical clips in the gallbladder fossa consistent with a prior cholecystectomy. There is moderate splenomegaly. Normal pancreas. Normal bilateral adrenal glands. There is 2.6 cm cyst of the right kidney. Normal left kidney. Normal visualized stomach. Normal small intestine. Normal colon. There is moderate stool There is non-visualization of the appendix. There is atherosclerotic calcification of the abdominal aorta, without a demonstrated aneurysm. Normal inferior vena cava. Normal retroperitoneum. There is wall thickening of the urinary bladder. There is enlargement of the prostate gland. There is no free fluid in the abdomen or pelvis. Normal abdominal wall. There is degenerative change of the spine. CT/Abdomen/Pelvis W IV Cont ONLY IMPRESSION: Wall thickening of the urinary bladder. Enlarged prostate gland. No stones or hydronephrosis. Hepatosplenomegaly. Prior cholecystectomy. No biliary dilatation. Electronically Signed: Stepan Potts MD at 18:16 EDT , CC: TARI Alvarez; Dr. Kaushik Bryant MD Engineer Systems: Signed Normal [facility] Basic Metabolic Profile (BMP )on 11-08-2023 BUN/CRE 10.9 RATIO Normal 10-20 [facility] Comment on above: Performed By: #### L 501.080 #### [facility] [address] [place], [address] CA,Total 8.9 mg/dL Normal 8.5-10.1 [facility] Comment on above: Performed By: #### L 501.080 #### [facility] [address] [place], [address] Chloride [Moles/Vol] 102 mmol/L Normal 98-107 [facility] Comment on above: Performed By: #### L 501.080 #### [facility] [address] [place], [address] CO2 [Moles/Vol] 23.0 mmol/L Normal 21.0-32.0 [facility] Comment on above: Performed By: #### L 501.080 #### [facility] [address] [place], [address] Creatinine [Mass/Vol] 0.92 mg/dL Normal 0.70-1.30 [facility] [place] [facility] Comment on above: Result Comment: The validity of the calculated GFR GFRAA in patients over 70 years has not been determined. Clinical correlation is essential. Performed By: #### L 501.080 #### [facility] [address] [place], [address] ECRCL 104.14 ml/min Normal [facility] Comment on above: Performed By: #### L 501.080 #### [facility] [address] [place], [address] EST GFR - AA 104 mL/min Normal >60 [facility] Comment on above: Result Comment: Afri can [place] GFR Calc Performed By: #### L 501.080 #### [facility] [address] [place], [address] GAP 10 Normal 5-15 [facility] Comment on above: Performed By: #### L 501.080 #### [facility] [address] [place], [address] GFR/1.73 sq M.predicted among non-blacks MDRD (S/P/Bld) [Vol rate/Area] 86 mL/min/{1.73_m2} Normal >60 [facility] Comment on above: Result Comment: Non- GFR Calc Performed By: #### L 501.080 #### [facility] [address] [place], [address] Glucose [Mass/Vol] 142 mg/dL High 74-106 [facility] Comment on above: Result Comment: Fast ing Glucose result greater than or equal to 126 mg/dL suggests DIABETES MELLITUS per A.D.A. criteria. Performed By: #### L 501.080 #### [facility] [address] [place], [address] Potassium [Moles/Vol] 3.8 mmol/L Normal 3.5-5.1 [facility] Comment on above: Result Comment: Slig ht Hemolysis, Result may be falsely increased. Performed By: #### L 501.080 #### [facility] [address] [place], [address] Sodium [Moles/Vol] 135 mmol/L Low 136-145 [facility] Comment on above: Performed By: #### L 501.080 #### [facility] [address] [place], [address] Urea nitrogen [Mass/Vol] 10 mg/dL Normal 7-18 [facility] Comment on above: Performed By: #### L 501.080 #### [facility] [address] [place], [address] Bedside Glucoseon 11-08-2023 FINGERSTICK GLU 133 mg/dL High 74-106 [facility] Comment on above: Result Comment: ADA GEMENT OF PATIENT CARE PER NURSING PROTOCOL Performed By: #### L 501.080 #### [facility] [address] [place], [address] FINGERSTICK GLU 151 mg/dL High 74-106 [facility] Comment on above: Result Comment: ADA GEMENT OF PATIENT CARE PER NURSING PROTOCOL Performed By: #### L 501.080 #### [facility] [address] [place], [address] FINGERSTICK GLU 168 mg/dL High 74-106 [facility] Comment on above: Result Comment: ADA GEMENT OF PATIENT CARE PER NURSING PROTOCOL Performed By: #### L 501.080 #### [facility] [address] [place], [address] FINGERSTICK GLU 153 mg/dL High 74-106 [facility] Comment on above: Result Comment: ADA GEMENT OF PATIENT CARE PER NURSING PROTOCOL Performed By: #### L 501.080 ####[facility] [address] [place], [address] CBC W/Diff, Automatedon 08-0 8-2024 Absolute Lymph 0.66 X10 3/uL Low 0.83-4.51 [facility] Comment on above: Performed By: #### L 100.0100, L500.4050 #### [facility] [address] [place], [address] Absolute Neut 8.7 X10 3/uL High 2.0-7.7 [facility] Comment on above: Performed By: #### L 100.0100, L500.4050 #### [facility] [address] [place], [address] Basophils/100 WBC (Bld) 0.3 % Normal 0-1 [facility] Comment on above: Performed By: #### L 100.0100, L500.4050 #### [facility] [address] [place], [address] Eosinophils/100 WBC (Bld) 0.3 % Normal 0-5 [facility] Comment on above: Performed By: #### L 100.0100, L500.4050 #### [facility] [address] [place], [address] Erythrocyte distribution width (RBC) [Ratio] 12.0 % Normal 11.6-14.6 [facility] Comment on above: Performed By: #### L 100.0100, L500.4050 #### [facility] [address] [place], [address] Hematocrit (Bld) [Volume fraction] 40.5 % Normal 40-54 [facility] Comment on above: Performed By: #### L 100.0100, L500.4050 #### [facility] [address] [place], [address] Hemoglobin (Bld) [Mass/Vol] 13.7 g/dL Normal 13.0-16.5 [facility] Comment on above: Performed By: #### L 100.0100, L500.4050 #### [facility] [address] [place], [address] IG% 0.400 Normal 0.0-0.9 [facility] Comment on above: Result Comment: IG% - Immature Granulocytes (promyelocytes, myelocytes and metamyelocytes) > 1% indicates that a LEFT SHIFT is Present. Performed By: #### L 100.0100, L500.4050 #### [facility] [address] [place], [address] Lymphocytes/100 WBC (Bld) 6.8 % Low 19-41 [facility] Comment on above: Performed By: #### L 100.0100, L500.4050 #### [facility] [address] [place], [address] MCH (RBC) [Entitic mass] 30.2 pg Normal 27.0-32.0 [facility] Comment on above: Performed By: #### L 100.0100, L500.4050 #### [facility] [address] [place], [address] MCHC (RBC) [Mass/Vol] 33.8 g/dL Normal 32-36 [facility] [place] [facility] Comment on above: Performed By: #### L 100.0100, L500.4050 #### [facility] [address] [place], [address] MCV (RBC) [Entitic vol] 89.4 fL Normal 80-94 [facility] Comment on above: Performed By: #### L 100.0100, L500.4050 #### [facility] [address] [place], [address] Monocytes/100 WBC (Bld) 2.9 % Normal 0-10 [facility] Comment on above: Performed By: #### L 100.0100, L500.4050 #### [facility] [address] [place], [address] Neutrophils/100 WBC (Bld) 89.3 % High 47-70 [facility] Comment on above: Performed By: #### L 100.0100, L500.4050 #### [facility] [address] [place], [address] Nucleated RBC (Bld) [#/Vol] 0 10*3/uL Normal 0-5 [facility] Comment on above: Performed By: #### L 100.0100, L500.4050 #### [facility] [address] [place], [address] Platelet mean volume (Bld) [Entitic vol] 9.3 fL Normal 6.2-12.0 [facility] Comment on above: Performed By: #### L 100.0100, L500.4050 #### [facility] [address] [place], [address] Platelets (Bld) [#/Vol] 107 10*3/uL Low 150-450 [facility] Comment on above: Performed By: #### L 100.0100, L500.4050 #### [facility] [address] [place], [address] RBC (Bld) [#/Vol] 4.53 10*6/uL Low 4.6-6.2 [facility] Comment on above: Performed By: #### L 100.0100, L500.4050 #### [facility] [address] [place], [address] RDW SD 38.7 fl Normal 35.1-43.9 [facility] Comment on above: Performed By: #### L 100.0100, L500.4050 #### [facility] [address] [place], [address] WBC (Bld) [#/Vol] 9.7 10*3/uL Normal 4.4-11.0 [facility] Comment on above: Performed By: #### L 100.0100, L500.4050 #### [facility] [address] [place], [address] Absolute Lymph 0.64 X10 3/uL Low 0.83-4.51 [facility] Comment on above: Performed By: #### L 501.080 #### [facility] [address] [place], [address] Absolute Neut 8.0 X10 3/uL High 2.0-7.7 [facility] Comment on above: Performed By: #### L 501.080 #### [facility] [address] [place], [address] Basophils/100 WBC (Bld) 0.2 % Normal 0-1 [facility] Comment on above: Performed By: #### L 501.080 #### [facility] [address] [place], [address] Eosinophils/100 WBC (Bld) 0.7 % Normal 0-5 [facility] Comment on above: Performed By: #### L 501.080 #### [facility] [address] [place], [address] Erythrocyte distribution width (RBC) [Ratio] 12.0 % Normal 11.6-14.6 [facility] Comment on above: Performed By: #### L 501.080 #### [facility] [address] [place], [address] Hematocrit (Bld) [Volume fraction] 42.0 % Normal 40-54 [facility] Comment on above: Performed By: #### L 501.080 #### [facility] [address] [place], [address] Hemoglobin (Bld) [Mass/Vol] 14.6 g/dL Normal 13.0-16.5 [facility] Comment on above: Performed By: #### L 501.080 #### [facility] [address] [place], [address] IG% 0.400 Normal 0.0-0.9 [facility] Comment on above: Result Comment: IG% - Immature Granulocytes (promyelocytes, myelocytes and metamyelocytes) > 1% indicates that a LEFT SHIFT is Present. Performed By: #### L 501.080 #### [facility] [address] [place], [address] Lymphocytes/100 WBC (Bld) 7.1 % Low 19-41 [facility] Comment on above: Performed By: #### L 501.080 #### [facility] [address] [place], [address] MCH (RBC) [Entitic mass] 30.5 pg Normal 27.0-32.0 [facility] Comment on above: Performed By: #### L 501.080 #### [facility] [address] [place], [address] MCHC (RBC) [Mass/Vol] 34.8 g/dL Normal 32-36 [facility] Comment on above: Performed By: #### L 501.080 #### [facility] [address] [place], [address] MCV (RBC) [Entitic vol] 87.7 fL Normal 80-94 [facility] Comment on above: Performed By: #### L 501.080 #### [facility] [address] [place], [address] Monocytes/100 WBC (Bld) 2.8 % Normal 0-10 [facility] Comment on above: Performed By: #### L 501.080 #### [facility] [address] [place], [address] Neutrophils/100 WBC (Bld) 88.8 % High 47-70 [facility] Comment on above: Performed By: #### L 501.080 #### [facility] [address] [place], [address] Nucleated RBC (Bld) [#/Vol] 0 10*3/uL Normal 0-5 [facility] Comment on above: Performed By: #### L 501.080 #### [facility] [address] [place], [address] Platelet mean volume (Bld) [Entitic vol] 10.1 fL Normal 6.2-12.0 [facility] Comment on above: Performed By: #### L 501.080 #### [facility] [address] [place], [address] Platelets (Bld) [#/Vol] 110 10*3/uL Low 150-450 [facility] Comment on above: Performed By: #### L 501.080 #### [facility] [address] [place], [address] RBC (Bld) [#/Vol] 4.79 10*6/uL Normal 4.6-6.2 [facility] Comment on above: Performed By: #### L 501.080 #### [facility] [address] [place], [address] RDW SD 38.6 fl Normal 35.1-43.9 [facility] Comment on above: Performed By: #### L 501.080 #### [facility] [address] [place], [address] WBC (Bld) [#/Vol] 9.0 10*3/uL Normal 4.4-11.0 [facility] Comment on above: Performed By: #### L 501.080 #### [facility] [address] [place], [address] Chest PA and Lateralon 11-07 Chest PA and Lateral [facility] Imaging Services [address] [place] [address] Chest PA and Lateral MR#: [id number] Acct: [id number] Name: SHOLA MARTINEZ Rep #: [id number] : 1950 M 73 From: Jackson Leroy MD PCP: Jessica Alvarez, BANANA GRADER-C Status: [facility] Study: Chest PA and Lateral Date of Exam: 11/08/23 Exam# [id number] Ordering Dr: Eduar Dnoahue DO [id number] EXAM: XR Chest 2 Views INDICATION: Male, 73 years old. Fever TECHNIQUE: PA and lateral views COMPARISON: 11/09/2022 FINDINGS: DEVICES: None LUNGS: Patchy airspace opacification throughout the left lung base and at the left medial lung base. No concerning pulmonary nodule. No pleural effusion or pneumothorax. MEDIASTINUM: Cardiac and mediastinal silhouettes are within normal limits. No central pulmonary vascular congestion. . SKELETAL STRUCTURES: No acute skeletal abnormality. Multilevel degenerative change of the spine. UPPER ABDOMEN: Unremarkable RAD/Chest PA and Lateral IMPRESSION: Bibasilar atelectasis versus infiltrate, left greater than right Electronically Signed: Jackson Leroy MD at 2:11 EDT , CC: TARI Alvarez; Dr. Eduar Donahue DO Engineer Systems: Signed Normal [facility] Comprehensive Metabolic Prof ilon 11-08-2023 Albumin [Mass/Vol] 3.1 g/dL Low 3.2-5.0 [facility] Comment on above: Performed By: #### L 100.0100, L500.4050 #### [facility] [address] [place], [address] Albumin/Globulin [Mass ratio] 1.0 {ratio} Normal 0.9-2.4 [facility] Comment on above: Performed By: #### L 100.0100, L500.4050 #### [facility] [address] [place], [address] ALK P 82 U/L Normal 45-117 [facility] Comment on above: Performed By: #### L 100.0100, L500.4050 #### [facility] [address] [place], [address] ALT [Catalytic activity/Vol] 22 U/L Normal 16-61 [facility] Comment on above: Performed By: #### L 100.0100, L500.4050 #### [facility] [address] [place], [address] AST [Catalytic activity/Vol] 16 U/L Normal 15-37 [facility] Comment on above: Performed By: #### L 100.0100, L500.4050 #### [facility] [address] [place], [address] Bilirubin [Mass/Vol] 3.40 mg/dL High 0.20-1.00 [facility] Comment on above: Result Comment: For patients on eltrombopag therapy, use of Dimension [place] TBIL is not recommended. Performed By: #### L 100.0100, L500.4050 #### [facility] [address] [place], [address] BUN/CRE 8.9 RATIO Low 10-20 [facility] Comment on above: Performed By: #### L 100.0100, L500.4050 #### [facility] [address] [place], [address] CA,Total 8.3 mg/dL Low 8.5-10.1 [facility] Comment on above: Performed By: #### L 100.0100, L500.4050 #### [facility] [address] [place], [address] Chloride [Moles/Vol] 103 mmol/L Normal 98-107 [facility] Comment on above: Performed By: #### L 100.0100, L500.4050 #### [facility] [address] [place], [address] CO2 [Moles/Vol] 26.0 mmol/L Normal 21.0-32.0 [facility] Comment on above: Performed By: #### L 100.0100, L500.4050 #### [facility] [address] [place], [address] Creatinine [Mass/Vol] 1.01 mg/dL Normal 0.70-1.30 [facility] Comment on above: Result Comment: The validity of the calculated GFR GFRAA in patients over 70 years has not been determined. Clinical correlation is essential. Performed By: #### L 100.0100, L500.4050 #### [facility] [address] [place], [address] ECRCL 87.41 ml/min Normal [facility] Comment on above: Performed By: #### L 100.0100, L500.4050 #### [facility] [address] [place], [address] EST GFR - AA 93 mL/min Normal >60 [facility] Comment on above: Result Comment: Afri can [place] GFR Calc Performed By: #### L 100.0100, L500.4050 #### [facility] [address] [place], [address] GAP 6 Normal 5-15 [facility] Comment on above: Performed By: #### L 100.0100, L500.4050 #### [facility] [address] [place], [address] GFR/1.73 sq M.predicted among non-blacks MDRD (S/P/Bld) [Vol rate/Area] 77 mL/min/{1.73_m2} Normal >60 [facility] Comment on above: Result Comment: Non- GFR Calc Performed By: #### L 100.0100, L500.4050 #### [facility] [address] [place], [address] Globulin (S) [Mass/Vol] 3.1 g/dL Normal 2.2-4.2 [facility] Comment on above: Performed By: #### L 100.0100, L500.4050 #### [facility] [address] [place], [address] Glucose [Mass/Vol] 179 mg/dL High 74-106 [facility] Comment on above: Result Comment: Fast ing Glucose result greater than or equal to 126 mg/dL suggests DIABETES MELLITUS per A.D.A. criteria. Performed By: #### L 100.0100, L500.4050 #### [facility] [address] [place], [address] Potassium [Moles/Vol] 4.3 mmol/L Normal 3.5-5.1 [facility] Comment on above: Performed By: #### L 100.0100, L500.4050 #### [facility] [address] [place], [address] Sodium [Moles/Vol] 135 mmol/L Low 136-145 [facility] Comment on above: Performed By: #### L 100.0100, L500.4050 #### [facility] [address] [place] [place], [address] T PROT 6.2 g/dL Low 6.4-8.2 [facility] Comment on above: Performed By: #### L 100.0100, L500.4050 #### [facility] [address] [place], [address] Urea nitrogen [Mass/Vol] 9 mg/dL Normal 7-18 [facility] Comment on above: Performed By: #### L 100.0100, L500.4050 #### [facility] Laboratory [address] [place], [address] Consultation - Urologyon Consultation - Urology [facility] Medical Records Department [address] [place] [address] Consultation - Urology 11/08/23 1644 MR#: [id number] Acct: [id number] Name: SHOLA MARTINEZ Rep #: [id number] : 1950 73 From: Kaushik Bryant MD PCP: Jessica Alvarez, BANANA GRADER-C Status:ADM IN Location: [place]3 [id number] Assessment Plan Assessment/Plan (1) Acidosis, lactic: (2) Urinary tract infection: PLAN: Comes in for urinary tract infection difficulty with urination recommend we get cross- sectional imaging and recommend we get a CT scan of the abdomen pelvis with and without IV contrast to evaluate the source of the urinary tract infection continue with medications as prescribed. HPI Consult Data Date of Consult: 11/08/23 HPI Narrative Reason for Consultation: Difficulty with urination HPI Narrative: SHOLA MARTINEZ, is a 73 M who presents to the hospital with acidosis and urinary tract infection some difficulty with urination urine cultures are pending he has been complaining of some penis pain and soreness with going to the bathroom they did straight cath and Knight 150 cc. No gross hematuria. [facility] Medical History Adult failure to thrive Obesity Allergic rhinitis CKD (chronic kidney disease), stage II Former tobacco use COPD (chronic obstructive pulmonary disease) BPH (benign prostatic hyperplasia) Hyperlipemia HTN (hypertension) Diabetes Home Medications ???Medication ???Instructions ???Recorded ???Last Taken ???Type atorvastatin 80 mg tablet 80 mg PO QHS cholesterol 11/08/22 Unknown History cetirizine 5 mg tablet 5 mg PO QHS allergies 11/08/22 Unknown History cholecalciferol (vitamin D3) 125 5,000 unit PO QWEEK vitamin 11/08/22 Unknown History mcg (5,000 unit) tablet (Vitamin D3) clopidogrel 75 mg tablet 75 mg PO DAILY anti platelet 11/08/22 11/08/22 History icosapent ethyl 1 gram capsule 2 g PO BID triglycerides 11/08/22 Unknown History (Vascepa) isosorbide mononitrate 30 mg 30 mg PO DAILY heart 11/08/22 Unknown History tablet,extended release 24 hr linagliptin 5 mg tablet (Tradjenta) 5 mg PO DAILY diabetes 11/08/22 Unknown History losartan 25 mg tablet 25 mg PO DAILY blood pressure 11/08/22 Unknown History melatonin 5 mg tablet 5 mg PO QHS sleep 11/08/22 Unknown History metformin 500 mg tablet 500 mg PO BID diabetes 11/08/22 Unknown History montelukast 10 mg tablet 10 mg PO QHS allergies 11/08/22 Unknown History polyethylene glycol 3350 17 17 g PO .EVERY OTHER DAY 11/08/22 Unknown History gram/dose oral powder (Gavilax) constipation tamsulosin 0.4 mg capsule 0.8 mg PO DAILY prostate 11/08/22 Unknown History Allergy/AdvReac Type Severity Reaction Status Date / Time No Known Allergies Allergy Verified 11/08/23 01:04 Family History Mother Diabetes Cancer Father Diabetes Cancer Surgical History History of herniorrhaphy Hx of cholecystectomy Hx of appendectomy Social History housing: assisted living facility Smoking Status: Former smoker alcohol intake: never substance use type: does not use ROS Constitutional Constitutional: Denies chills, fever(s) or malaise Eyes Eyes: Denies blurry vision or change in vision ENT HEENT: Reports none Cardiovascular Cardiovascular: Denies chest pain or palpitations Respiratory/Chest Respiratory/Chest: Denies cough or shortness of breath with exertion Gastrointestinal Gastrointestinal: Denies abdominal pain, constipation or diarrhea Musculoskeletal Musculoskeletal: Denies back pain, joint stiffness or joint swelling Integumentary Integumentary: Denies dry skin, jaundice, lesions or rash Neurologic Neurologic: Denies confusion, syncope or weakness Psychiatric Psychiatric: Reports none; Denies anxiety or depression Endocrine Endocrinology: Denies excessive sweating, fatigue or flushing Hematologic/Lymphatic Hematologic/Lymphatic: Denies anemia, easy bleeding or easy bruising Lab / Micro Data 11/08/23 06:06 11/08/23 06:06 Labs: Laboratory Results - last 24 hr 11/08/23 01:11: WBC 9.0, RBC 4.79, Hgb 14.6, Hct 42.0, MCV 87.7, MCH 30.5, MCHC 34.8, RDW Std Deviation 38.6, RDW Coeff of Gage 12.0, Plt Count 110 L, MPV 10.1, Immature Gran % (Auto) 0.400, Neut % (Auto) 88.8 H, Lymph % (Auto) 7.1 L, [place] % (Auto) 2.8, Eos % (Auto) 0.7, Baso % (Auto) 0.2, A bsolute Neuts (auto) 8.0 H, Absolute Lymphs (auto) 0.64 L, Nucleated RBC % 0, Sodium 135 L, Potassium 3.8, Chloride 102, Carbon Dioxide 23.0, Anion Gap 10, BUN 10, Creatinine 0.92, Estim Creat Clear Calc 104.14, Est GFR (MDRD) Af Amer 104, Est GFR (MDRD) Non-Af 86, BUN/C (more content not included)... Normal [facility] Emergency Department Summary on 11-08-2023 Emergency Department Summary [facility] Medical Records Department [address] [place] [address] Emergency Department Summary 11/08/23 MR#: [id number] Acct: [id number] Name: SHOLA MARTINEZ Rep #: [id number] : 1950 73 From: Eduar Donahue DO PCP: Jessica Alvarez, BANANA GRADER-C Status:ADM IN Location: MS3 FE904-5 HPI History of Present Illness Chief Complaint: Weakness Informant: patient Onset/Context/Timing Onset: Yesterday Context: Sudden Onset Timing: Continuous Quality: Cramping Location: Abdomen Worsened by: Nothing Relieved by: Nothing Narrative Narrative: Patient presents with nausea vomiting, and diarrhea that began yesterday. Patient states that has been constant. Patient states he has not been able to keep anything down. Patient states he is having dry heaves currently. Patient states he had a fever of 101 at home. Patient states nothing makes his symptoms better nothing makes them worse. Patient denies any chest pain or cough. Patient denies any shortness of breath. Patient denies any urinary complaints. [facility] Medical History Adult failure to thrive Obesity Allergic rhinitis CKD (chronic kidney disease), stage II Former tobacco use COPD (chronic obstructive pulmonary disease) BPH (benign prostatic hyperplasia) Hyperlipemia HTN (hypertension) Diabetes Home Medications ???Medication ???Instructions ???Recorded ???Last Taken ???Type atorvastatin 80 mg tablet 80 mg PO QHS cholesterol 11/08/22 Unknown History cetirizine 5 mg tablet 5 mg PO QHS allergies 11/08/22 Unknown History cholecalciferol (vitamin D3) 125 5,000 unit PO QWEEK vitamin 11/08/22 Unknown History mcg (5,000 unit) tablet (Vitamin D3) clopidogrel 75 mg tablet 75 mg PO DAILY anti platelet 11/08/22 11/08/22 History icosapent ethyl 1 gram capsule 2 g PO BID triglycerides 11/08/22 Unknown History (Vascepa) isosorbide mononitrate 30 mg 30 mg PO DAILY heart 11/08/22 Unknown History tablet,extended release 24 hr linagliptin 5 mg tablet (Tradjenta) 5 mg PO DAILY diabetes 11/08/22 Unknown History losartan 25 mg tablet 25 mg PO DAILY blood pressure 11/08/22 Unknown History melatonin 5 mg tablet 5 mg PO QHS sleep 11/08/22 Unknown History metformin 500 mg tablet 500 mg PO BID diabetes 11/08/22 Unknown History montelukast 10 mg tablet 10 mg PO QHS allergies 11/08/22 Unknown History polyethylene glycol 3350 17 17 g PO .EVERY OTHER DAY 11/08/22 Unknown History gram/dose oral powder (Gavilax) constipation tamsulosin 0.4 mg capsule 0.8 mg PO DAILY prostate 11/08/22 Unknown History Allergy/AdvReac Type Severity Reaction Status Date / Time No Known Allergies Allergy Verified 11/08/23 01:04 Family History Mother Diabetes Cancer Father Diabetes Cancer Surgical History History of herniorrhaphy Hx of cholecystectomy Hx of appendectomy Social History housing: assisted living facility Smoking Status: Former smoker alcohol intake: never substance use type: does not use ROS ROS ED Constitutional Constitutional ED: Reports fever(s); Denies chills Eyes Eyes: Denies blurry vision or change in vision ENT ENT ED: Denies rhinorrhea or sore throat Cardiovascular Cardiovascular: Denies chest pain or palpitations Respiratory/Chest Respiratory/Chest: Denies cough or dyspnea Gastrointestinal Gastrointestinal: Reports abdominal pain, diarrhea, nausea and vomiting Genitourinary Genitourinary ED: Denies dysuria or hematuria Musculoskeletal Musculoskeletal: Denies back pain or neck pain Integumentary Denies abscess Neurologic Neurologic: Denies headache(s) or weakness Allergic/Immunologic Allergic/Immunologic ED: Denies mouth swelling or urticaria EXAM Physical Exam Const Vital Signs: 11/08/23 01:04 11/08/23 01:12 11/08/23 01:12 Temperature 101.0 F H 101.0 F H Temperature Source Oral Oral Pulse Rate 92 101 H Respiratory Rate 18 20 H Respiratory Effort Normal Non-Labored Respiratory Pattern Normal Blood Pressure 140/77 H 140/77 H Blood Pressure Mean 98 98 Pulse Ox 95 96 Oxygen Delivery Method Room Air Room Air 11/08/23 02:12 Temperature 99.7 F H Temperature Source Oral Pulse Rate 88 Respiratory Rate 20 H Respiratory Effort Respiratory Pattern Blood Pressure 129/62 H Blood Pressure Mean 84 Pulse Ox 94 Oxygen Delivery Method Room Air Positive well nourished and well developed General Appearance ED: well developed and NAD HEENT Reports dry mucous membranes Mouth ED: Yes dry mucous membranes Mouth: dry mucous membranes (more content not included)... Normal [facility] H AND P Exam - Hospitaliston 11-08-2023 H&P Exam - Hospitalist [facility] Medical Records Department [address] [place] [address] H P Exam - Hospitalist 11/08/23 0230 MR#: [id number] Acct: [id number] Name: SHOLA MARTINEZ Rep #: [id number] : 1950 73 From: Bridgett Villagomez MD PCP: Jessica Alvarez, BANANA GRADER-C Status:ADM IN Location: [facility] [place] CA371-0 HPI - General General Date of Admission: 11/08/23 Date of Service: 11/08/23 Chief Complaint: N/V/D, fever. HPI Narrative The patient is a 73 y/o M w/ PMHx: Chronic thrombocytopenia, Former Tobacco use, HTN, HLD, BPH, Diabetes mellitus type II, COPD, CKD per GFR trending, Obesity, Hx COVID illness who presents to the [facility] ED on 11/08/23 with history of onset over last 24 hours nausea, emesis and loose stools which has been constant with inability to keep anything down with dry heaving with onset of fever 101 at home with no recent chest discomfort or marked URI type symptoms nor any dyspnea nor urinary complaints but given ongoing GI symptoms prompted eventual ED evaluation. He does report suprapubic discomfort. Workup in the ED included T101.0, heart rate 101, respiratory rate 20, BP 140/77, 96% on room air with most recent repeat vital signs T99.7, heart 88, BP 120 #62, respiratory rate 20, 94% on room air CBC with WBC 9.0, human 14.6, platelet 110 with left shift and lymphopenia, BMP with sodium 135, glucose 142, lactic acid mildly elevated 2.4, urinalysis with specific gravity 1.020, protein 15, ketone 5, occult blood 25, positive nitrite, leukocyte esterase 50, urine WBCs 25-50 with 3+ urine bacteria, urine culture pending per ED, blood culture x 2 pending per ED, chest x-ray with bilateral atelectasis versus infiltrate, left greater than right, rapid respiratory COVID/influenza/RSV negative. In the ED patient ministered 1 L normal saline, Zofran 4 mg IV x 1, Tylenol 1000 mg p.o. x 1 in addition to Rocephin 2 g IV x 1 and azithromycin 500 mg IV x 1. Of note patient denies any allergy to asa, denies TIA/CVA history, denies PCI cardiac history as he is on plavix and does not know exactly why. [facility] Medical History Adult failure to thrive Obesity Allergic rhinitis CKD (chronic kidney disease), stage II Former tobacco use COPD (chronic obstructive pulmonary disease) BPH (benign prostatic hyperplasia) Hyperlipemia HTN (hypertension) Diabetes Home Medications ???Medication ???Instructions ???Recorded ???Last Taken ???Type atorvastatin 80 mg tablet 80 mg PO QHS cholesterol 11/08/22 Unknown History cetirizine 5 mg tablet 5 mg PO QHS allergies 11/08/22 Unknown History cholecalciferol (vitamin D3) 125 5,000 unit PO QWEEK vitamin 11/08/22 Unknown History mcg (5,000 unit) tablet (Vitamin D3) clopidogrel 75 mg tablet 75 mg PO DAILY anti platelet 11/08/22 11/08/22 History icosapent ethyl 1 gram capsule 2 g PO BID triglycerides 11/08/22 Unknown History (Vascepa) isosorbide mononitrate 30 mg 30 mg PO DAILY heart 11/08/22 Unknown History tablet,extended release 24 hr linagliptin 5 mg tablet (Tradjenta) 5 mg PO DAILY diabetes 11/08/22 Unknown History losartan 25 mg tablet 25 mg PO DAILY blood pressure 11/08/22 Unknown History melatonin 5 mg tablet 5 mg PO QHS sleep 11/08/22 Unknown History metformin 500 mg tablet 500 mg PO BID diabetes 11/08/22 Unknown History montelukast 10 mg tablet 10 mg PO QHS allergies 11/08/22 Unknown History polyethylene glycol 3350 17 17 g PO .EVERY OTHER DAY 11/08/22 Unknown History gram/dose oral powder (Gavilax) constipation tamsulosin 0.4 mg capsule 0.8 mg PO DAILY prostate 11/08/22 Unknown History Allergy/AdvReac Type Severity Reaction Status Date / Time No Known Allergies Allergy Verified 11/08/23 01:04 Family History Mother Diabetes Cancer Father Diabetes Cancer Surgical History History of herniorrhaphy Hx of cholecystectomy Hx of appendectomy Social History housing: assisted living facility Smoking Status: Former smoker alcohol intake: never substance use type: does not use ROS ROS Narrative Admission Review of Systems: CONSTITUTIONAL: No weight loss, + fever, chills, weakness or fatigue. HEENT: Eyes: No visual loss, blurred vision, double vision or yellow sclerae. Ears, Nose, Throat: No hearing loss, sneezing, congestion, runny nose or sore throat. SKIN: No rash or itching, lesions, wounds. CARDIOVASCULAR: No chest pain, chest pressure or chest discomfort, palpitations, edema, orthopnea, syncopal events. RESPIRATORY: No shortness of breath, cough or sputum, wheezing, hemoptysis. GASTROINTESTINAL: + anorexia, nausea, emesis, diarrhea. No abdominal pain, melena, BRBPR. GENITOUR (more content not included)... Normal [facility] Kidney [facility] Bladderon 024 Kidney and Bladder [facility] Imaging Services [address], [place] [id number] Kidney and Bladder MR#: [id number] Acct: [id number] Name: SHOLA MARTINEZ Rep #: [id number] : 1950 M 73 From: Stepan Potts MD PCP: Jessica Alvarez, TARI Status: ADM IN Study: Kidney and Bladder Date of Exam: 11/08/23 Exam# [id number] Ordering Dr: Mark Anthony Guzman MD [id number] STUDY: RENAL ULTRASOUND - COMPLETE REASON FOR EXAM: Male, 73 years old. Complicated UTI, perineal pain TECHNIQUE: Ultrasound evaluation of the kidneys was performed with real-time and static tierney-scale imaging. COMPARISON: None. FINDINGS: RIGHT KIDNEY: Normal location of the right kidney, which is normal in size. The right kidney measures 11.6 cm. There is a normal cortex of the right kidney. The renal cortex measures 1.9 cm. There is 2.2 cm cyst. There are no right renal calculi. There is no right hydronephrosis. DISTAL RIGHT URETER: There is non-visualization of the distal right ureter. There is no demonstrated right ureterovesical junction calculus. There is a visualized right ureteral jet. LEFT KIDNEY: Normal location of the left kidney, which is normal in size. The left kidney measures 12.3 cm. There is a normal cortex of the left kidney. The renal cortex measures 1.4 cm. There is no left renal mass or cyst. There are no left renal calculi. There is no left hydronephrosis. DISTAL LEFT URETER: There is non-visualization of the distal left ureter. There is no demonstrated left ureterovesical junction calculus. There is a visualized left ureteral jet. BLADDER: The distended urinary bladder has a volume of 198 ml. There is a normal wall thickness of the distended urinary bladder. There is no demonstrated mass within the urinary bladder. There are no demonstrated bladder calculi. There is an enlarged prostate gland measuring 5.3 x 5.0 x 4.8 cm. US/Kidney and Bladder IMPRESSION: Right renal cyst. No hydronephrosis. Enlarged prostate. Electronically Signed: Stepan Potts MD at 18:20 EDT , CC: TARI Alvarez; Dr. Mark Anthony Guzman MD Engineer Systems: Signed Normal [facility] Lactic Acidon 11-08-2023 Lactate [Moles/Vol] 2.2 mmol/L Invalid Interpretation Code 0.4-1.9 [facility] Comment on above: Result Comment: Crit ical Result(s) Called at: 06:53:04 11/08/2023 by: GEO VILLAGOMEZ TO KALEY JACKSON. Results read back by same. Performed By: #### L 503.6005 #### [facility] Laboratory [address] [place], [address] Lactate [Moles/Vol] 2.4 mmol/L Invalid Interpretation Code 0.4-1.9 [facility] Comment on above: Order Comment: Y Result Comment: Crit ical Result(s) Called at: 02:04:08 11/08/2023 by: Celso Davis. carolyn Henson RN ED. Results read back by same. Performed By: #### L 501.080 #### [facility] Laboratory [address] [place], [address] Legionella Antigen Urineon 0 11-08-2023 LEGU URINE, CATHETER Legionella Antigen result interpretation: L pneumo Ag Ur Ql Negative Presumptive negative for Legionella pneumophila serogroup 1 antigen in urine, suggesting no recent or current infection. Legionella Ag, Urine Negative (See interpretation below) Normal [facility] Comment on above: Performed By: #### M 300.4600, M300.4500 ####[facility] [address] [place], [address] M R Staph Aureus DNA by PCRo n 11-08-2023 MRSA DNA ASSAY Negative Normal Negative [facility] Comment on above: Performed By: #### L 8200.1000 ####[facility] [address] [place], [address] M100.678on 11-08-2023 M100.678 SARS-CoV-2 (COVID 19 ) Negative INFLUENZA A Negative INFLUENZA B Negative RSV PCR Negative Normal [facility] Comment on above: Performed By: #### L 400.0001, M100.8 #### [facility] Laboratory [address] [place], [address] RESPIRATORY PANEL MOLECULARo n 11-08-2023 RP PANEL ADENOVIRUS Not Detected INFLUENZA A Not Detected INFLUENZA A (SUBTYPE H1) Not Detected INFLUENZA A (SUBTYPE H3) Not Detected INFLUENZA B Not Detected HUMAN METAPHNEUMO Not Detected PARAINFLUENZA 1 Not Detected PARAINFLUENZA 2 Not Detected PARAINFLUENZA 3 Not Detected PARAINFLUENZA 4 Not Detected RHINOVIRUS Not Detected RSV A Not Detected RSV B Not Detected Normal [facility] Comment on above: Performed By: #### M 100.638 ####[facility] [address] [place], [address] Strep pneumoniae Antig(UR,CS F)on 11-08-2023 STPAG URINE, CATHETER URINE INTERPRETATION Strep pneumoniae Antig(UR,CSF) Negative Urine Presumptive negative for pneumococcal pneumonia, suggesting no current or recent pneumococcal infection. Infection due to S pneumoniae cannot be ruled out since the antigen present in the sample may be below the detection limit of the test. Strep pneumo Test Negative URINE (See interpretation below) Normal [facility] Comment on above: Performed By: #### M 300.4600, M300.4500 ####[facility] [address] [place], [address] Urinalysis, Completeon 11-07 BACTERIA 3+ /hpf Normal None Seen [facility] Comment on above: Order Comment: CLEAN CATCH Performed By: #### L 400.0001, M1.678 #### [facility] Laboratory [address] [place], [address] RBC 0-5 SEEN Normal 0-5 [facility] Comment on above: Order Comment: CLEAN CATCH Performed By: #### L 400.0001, M100.678 #### [facility] Laboratory [address] [place], [address] WBC 25-50 SEEN Normal 0-5 [facility] Comment on above: Order Comment: CLEAN CATCH Performed By: #### L 400.0001, M100.678 #### [facility] Laboratory [address] [place], [address] EPI,SQUAMOUS 0 SEEN Normal 0-5 [facility] Comment on above: Order Comment: CLEAN CATCH Performed By: #### L 400.0001, M100.678 #### [facility] Laboratory [address] [place], [address] Mucus Ql (Urine sed) 0 SEEN Normal [facility] Comment on above: Order Comment: CLEAN CATCH Performed By: #### L 400.0001, M100.678 #### [facility] Laboratory [address] [place], [address] Absolute lymphocyte countOrd ered By: Tanika Kunz on 11-11-2022 Lymphocytes Auto (Unsp spec) [#/Vol] 1.16 10*3/uL 0.83-4.51 [facility] Basophil percentageOrdered B y: Tanika Kunz on 11-11-2022 Basophils/100 WBC (Bld) 0.3 % 0-1 [facility] Chloride [Moles/Vol] 104 mmol/L 98-107 [facility] Eosinophils/100 WBC (Bld) 1.3 % 0-5 [facility] Glucose [Mass/Vol] 210 mg/dL 74-106 [facility] Comment on above: Glucose result great er than or equal to 200 mg/dLsuggests DIABETES MELLITUS per A.D.A. criteria. Neutrophils (Bld) [#/Vol] 4.4 10*3/uL 2.0-7.7 [facility] Neutrophils/100 WBC (Bld) 69.9 % 47-70 [facility] Potassium [Moles/Vol] 3.7 mmol/L 3.5-5.1 [facility] Sodium [Moles/Vol] 134 mmol/L 136-145 [facility] WBC (Bld) [#/Vol] 6.3 10*3/uL 4.4-11.0 [facility] Blood erythrocytes count (nu mber/volume)Ordered By: Tanika Kunz on 11-11-2022 RBC (Bld) [#/Vol] 4.41 10*6/uL 4.6-6.2 [facility] Blood hemoglobin measurement (mass/volume)Ordered By: Tanika Kunz on 11-11-2022 Hemoglobin (Bld) [Mass/Vol] 13.6 g/dL 13.0-16.5 [facility] Blood lymphocytes/100 leukoc ytesOrdered By: Tanika Kunz on 11-11-2022 Lymphocytes/100 WBC (Bld) 18.4 % 19-41 [facility] Blood monocytes/100 leukocyt esOrdered By: Tanika Kunz on 11-11-2022 Monocytes/100 WBC (Bld) 9.8 % 0-10 [facility] Blood platelet mean volumeOr dered By: Tanika Kunz on 11-11-2022 Platelet mean volume (Bld) [Entitic vol] 9.4 fL 6.2-12.0 [facility] Determination of erythrocyte mean corpuscular volume (MCV)Ordered By: Tanika Kunz on 11-11-2022 MCV (RBC) [Entitic vol] 88.2 fL 80-94 [facility] Glucose Glucometer (dC) [M ass/Vol]Ordered By: Tanika Kunz on 11-11-2022 Glucose [Mass/Vol] 236 mg/dL 74-106 [facility] Comment on above: MANAGEMENT OF PATIEN T CARE PER NURSING PROTOCOL Hematocrit Auto (Bld) [Volum e fraction]Ordered By: Tanika Kunz on 11-11-2022 Hematocrit (Bld) [Volume fraction] 38.9 % 40-54 [facility] Laboratory - Chemistry and C hemistry - challengeOrdered By: Tanika Kunz on 11-11-2022 CO2 [Moles/Vol] 25.0 mmol/L 21.0-32.0 [facility] Urea nitrogen/Creatinine [Mass ratio] 11.1 mg/mg 10-20 [facility] Laboratory - Hematology and Cell countsOrdered By: Tanika Kunz on 11-11-2022 Erythrocyte distribution width (RBC) [Entitic vol] 37.6 fL 35.1-43.9 [facility] Erythrocyte distribution width (RBC) [Ratio] 11.7 % 11.6-14.6 [facility] Immature granulocytes/100 WBC (Bld) 0.300 % 0.0-0.9 [facility] Comment on above: IG% - Immature Granu locytes (promyelocytes, myelocytes and metamyelocytes) > 1% indicates that a LEFT SHIFT is Present. MCH (RBC) [Entitic mass] 30.8 pg 27.0-32.0 [facility] Nucleated RBC/100 WBC (Bld) [Ratio] 0 % 0-5 [facility] MCHC Auto (RBC) [Mass/Vol]Or dered By: Tanika Kunz on 11-11-2022 MCHC (RBC) [Mass/Vol] 35.0 g/dL 32-36 [facility] No Panel InformationOrdered By: Tanika Kunz on 11-11-2022 Estimated Creatinine Clearance Calc 84.99 ml/min [facility] Estimated GFR (MDRD) Amer 107 mL/min >60 [facility] Comment on above: GFR Calc Estimated GFR (MDRD) Non-Af Amer 88 mL/min >60 [facility] Comment on above: Non- GFR Calc Platelets bldOrdered By: Natacha Kunz on 11-11-2022 Platelets (Bld) [#/Vol] 100 10*3/uL 150-450 [facility] [facility] Serum or plasma calcium yessi urement (mass/volume)Ordered By: Tanika Kunz on 11-11-2022 Calcium [Mass/Vol] 8.1 mg/dL 8.5-10.1 [facility] Serum or plasma creatinine m easurement (mass/volume)Ordered By: Tanika Kunz on 11-11-2022 Creatinine [Mass/Vol] 0.90 mg/dL 0.70-1.30 [facility] Comment on above: The validity of the calculated GFR & GFRAA in patients over 70 years has not been determined. Clinical correlation is essential. Serum or plasma urea nitroge n measurement (mass/volume)Ordered By: Tanika Kunz on 11-11-2022 Urea nitrogen [Mass/Vol] 10 mg/dL 7-18 [facility] Thin prep Papanicolaou smear with manual screeningOrdered By: Tanika Kunz on 11-11-2022 Thin prep Papanicolaou smear with manual screening 5 5-15 [facility] Basophil percentageOrdered B y: Tanika Kunz on 11-10-2022 Bilirubin [Mass/Vol] 2.70 mg/dL 0.20-1.00 [facility] Comment on above: For patients on eltr ombopag therapy, use of Dimension [place] TBIL is not recommended. Protein [Mass/Vol] 5.6 g/dL 6.4-8.2 [facility] Blood platelet adequacy dete ction by light microscopyOrdered By: Tanika Kunz on 11-10-2022 Platelets LM Ql (Bld) MOD DEC ADEQ [facility] Direct bilirubinOrdered By: Tanika Kunz on 11-10-2022 Bilirubin.direct [Mass/Vol] 0.19 mg/dL 0.00-0.30 [facility] - Chemistry and C hemistry - challengeOrdered By: Tanika Kunz on 11-10-2022 ALP [Catalytic activity/Vol] 82 U/L 45-117 [facility] ALT [Catalytic activity/Vol] 32 U/L 16-61 [facility] Globulin (S) [Mass/Vol] 3.0 g/dL 2.2-4.2 [facility] Serum or plasma albumin yessi urement (mass/volume)Ordered By: Tanika Kunz on 11-10-2022 Albumin [Mass/Vol] 2.6 g/dL 3.2-5.0 [facility] Thin prep Papanicolaou smear with manual screeningOrdered By: Tanika Kunz on 11-10-2022 Thin prep Papanicolaou smear with manual screening 42 U/L 15-37 [facility] Serum or plasma albumin/glob ulin mass ratioOrdered By: Bridgett Villagomez on 11-09-2022 Albumin/Globulin [Mass ratio] 1.0 {ratio} 0.9-2.4 [facility] Absolute lymphocyte countOrd ered By: Jann Hoffmann on 11-08-2022 Lymphocytes Auto (Unsp spec) [#/Vol] 0.60 10*3/uL 0.83-4.51 [facility] Basophil percentageOrdered B y: Jann Hoffmann on 11-08-2022 Basophil percentage 0-5 SEEN /hpf 0-5 [facility] Basophils/100 WBC (Bld) 0.2 % 0-1 [facility] Bilirubin [Mass/Vol] 2.90 mg/dL 0.20-1.00 [facility] Comment on above: For patients on eltr ombopag therapy, use of Dimension [place] TBIL is not recommended. Chloride [Moles/Vol] 100 mmol/L 98-107 [facility] Eosinophils/100 WBC (Bld) 0.8 % 0-5 [facility] Glucose [Mass/Vol] 244 mg/dL 74-106 [facility] Comment on above: Glucose result great er than or equal to 200 mg/dLsuggests DIABETES MELLITUS per A.D.A. criteria. Neutrophils (Bld) [#/Vol] 9.7 10*3/uL 2.0-7.7 [facility] Neutrophils/100 WBC (Bld) 88.3 % 47-70 [facility] Potassium [Moles/Vol] 3.9 mmol/L 3.5-5.1 [facility] Protein [Mass/Vol] 6.4 g/dL 6.4-8.2 [facility] Sodium [Moles/Vol] 134 mmol/L 136-145 [facility] WBC (Bld) [#/Vol] 11.0 10*3/uL 4.4-11.0 [facility] Bilirubin Test strip Ql (U)O rdered By: Jann Hoffmann on 11-08-2022 Bilirubin Ql (U) Negative Negative [facility] Blood erythrocytes count (nu mber/volume)Ordered By: Jann Hoffmann on 11-08-2022 RBC (Bld) [#/Vol] 4.88 10*6/uL 4.6-6.2 [facility] Blood hemoglobin measurement (mass/volume)Ordered By: Jann Hoffmann on 11-08-2022 Hemoglobin (Bld) [Mass/Vol] 15.0 g/dL 13.0-16.5 [facility] Blood lymphocytes/100 leukoc ytesOrdered By: Jann Hoffmann on 11-08-2022 Lymphocytes/100 WBC (Bld) 5.4 % 19-41 [facility] Blood manual differential co mment interpretation (narrative result)Ordered By: Jann Hoffmann on 11-08-2022 Manual differential comment Lito (Bld) [Interp] SCANNED [facility] Blood monocytes/100 leukocyt esOrdered By: Jann Hoffmann on 11-08-2022 Monocytes/100 WBC (Bld) 4.8 % 0-10 [facility] Blood platelet mean volumeOr dered By: Jann Hoffmann on 11-08-2022 Platelet mean volume (Bld) [Entitic vol] 9.6 fL 6.2-12.0 [facility] Determination of erythrocyte mean corpuscular volume (MCV)Ordered By: Jann Hoffmann on 11-08-2022 MCV (RBC) [Entitic vol] 87.9 fL 80-94 [facility] Hematocrit Auto (Bld) [Volum e fraction]Ordered By: Jann Hoffmann on 11-08-2022 Hematocrit (Bld) [Volume fraction] 42.9 % 40-54 [facility] Ketones Test strip Ql (U)Ord ered By: Jann Hoffmann on 11-08-2022 Ketones Ql (U) 5 mg/dl Negative [facility] - Chemistry and C hemistry - challengeOrdered By: Jann Hoffmann on 11-08-2022 ALP [Catalytic activity/Vol] 115 U/L 45-117 [facility] ALT [Catalytic activity/Vol] 42 U/L 16-61 [facility] CO2 [Moles/Vol] 23.0 mmol/L 21.0-32.0 [facility] Globulin (S) [Mass/Vol] 3.0 g/dL 2.2-4.2 [facility] Urea nitrogen/Creatinine [Mass ratio] 10.4 mg/mg 10-20 [facility] - Hematology and Cell countsOrdered By: Jann Hoffmann on 11-08-2022 Erythrocyte distribution width (RBC) [Entitic vol] 38.0 fL 35.1-43.9 [facility] Erythrocyte distribution width (RBC) [Ratio] 11.9 % 11.6-14.6 [facility] Immature granulocytes/100 WBC (Bld) 0.500 % 0.0-0.9 [facility] Comment on above: IG% - Immature Granu locytes (promyelocytes, myelocytes and metamyelocytes) > 1% indicates that a LEFT SHIFT is Present. MCH (RBC) [Entitic mass] 30.7 pg 27.0-32.0 [facility] Nucleated RBC/100 WBC (Bld) [Ratio] 0 % 0-5 [facility] - Microbiology an d Antimicrobial susceptibilityOrdered By: Yifan Meza on 11-08-2022 SARS-CoV-2 (COVID-19) RNA LILLIAN+probe Ql (Unsp spec) [facility] MCHC Auto (RBC) [Mass/Vol]Or dered By: Jann Hoffmann on 11-08-2022 MCHC (RBC) [Mass/Vol] 35.0 g/dL 32-36 [facility] Mucus LM Ql (Urine sed)Order ed By: Jann Hoffmann on 11-08-2022 Mucus Ql (Urine sed) 0 SEEN /hpf [facility] Nitrite Test strip Ql (U)Ord ered By: Jann Hoffmann on 11-08-2022 Nitrite Ql (U) Negative Negative [facility] No Panel InformationOrdered By: Jann Hoffmann on 11-08-2022 Estimated Creatinine Clearance Calc 72.16 ml/min [facility] Estimated GFR (MDRD) Amer 88 mL/min >60 [facility] Comment on above: GFR Calc Estimated GFR (MDRD) Non-Af Amer 73 mL/min >60 [facility] Comment on above: Non- GFR Calc Troponin I High Sensitivity 9 pg/mL 3.0-78.0 [facility] Comment on above: Please Note: [place] t Units and Gender Specific Reference Ranges. For more information see Policy Stat Procedure [place] High Sensitivity Troponin (TNIH) and attachments. Platelets bldOrdered By: Marquita Hoffmann on 11-08-2022 Platelets (Bld) [#/Vol] 107 10*3/uL 150-450 [facility] Protein Test strip Ql (U)Ord ered By: Jann Hoffmann on 11-08-2022 Protein Ql (U) 15 mg/dl Negative [facility] Serum or plasma albumin yessi urement (mass/volume)Ordered By: Jann Hoffmann on 11-08-2022 Albumin [Mass/Vol] 3.4 g/dL 3.2-5.0 [facility] Serum or plasma albumin/glob ulin mass ratioOrdered By: Jann Hoffmann on 11-08-2022 Albumin/Globulin [Mass ratio] 1.1 {ratio} 0.9-2.4 [facility] Serum or plasma calcium yessi urement (mass/volume)Ordered By: Jann Hoffmann on 11-08-2022 Calcium [Mass/Vol] 8.3 mg/dL 8.5-10.1 [facility] Serum or plasma creatinine m easurement (mass/volume)Ordered By: Jann Hoffmann on 11-08-2022 Creatinine [Mass/Vol] 1.06 mg/dL 0.70-1.30 [facility] Comment on above: The validity of the calculated GFR & GFRAA in patients over 70 years has not been determined. Clinical correlation is essential. Serum or plasma urea nitroge n measurement (mass/volume)Ordered By: Jann Hoffmann on 11-08-2022 Urea nitrogen [Mass/Vol] 11 mg/dL 7-18 [facility] Serum procalcitonin measurem entOrdered By: Bridgett Villagomez on 11-08-2022 Procalcitonin [Mass/Vol] 0.06 ng/mL 0.00-0.09 [facility] Comment on above: A procalcitonin (PCT ) level above 2.0 ng/mL on the first day of ICU admission is associated with a high risk for progression to severe sepsis and/or septic shock. A PCT level below 0.5 ng/mL on the first day of ICU admission is associated with a low risk for progression to severe and/or septic shock. Note: Concentrations <0.5 ng/mL do not exclude an infection on account of localized infections (without systemic signs) which can be associated with such low concentrations, or a systemic infection in its initial stages (<6 hours). Furthermore, increased procalcitonin can occur without infection. PCT concentrations between 0.5 and 2.0 ng/mL should be interpreted taking into account the patient's history. It is recommended to retest PCT within 6-24 hours if any concentrations <2 ng/mL are obtained. Squamous epithelial cells de tection in urine sediment by light microscopyOrdered By: Jann Hoffmann on 11-08-2022 Epithelial cells.squamous LM Ql (Urine sed) 0 SEEN /hpf 0-5 [facility] Thin prep Papanicolaou smear with manual screeningOrdered By: Jann Hoffmann on 11-08-2022 Thin prep Papanicolaou smear with manual screening 25 U/L 15-37 [facility] Thin prep Papanicolaou smear with manual screening 11 5-15 [facility] Urine blood detectionOrdered By: Jann Hoffmann on 11-08-2022 RBC Ql (U) 25 /ul Negative [facility] RBC Ql (U) 0-5 SEEN /hpf 0-5 [facility] Urine clarityOrdered By: Marquita Hoffmann on 11-08-2022 Clarity (U) Clear Clear [facility] Urine color determinationOrd ered By: Jann Hoffmann on 11-08-2022 Color (U) Yellow Yellow [facility] Urine glucose detectionOrder ed By: Jann Hoffmann on 11-08-2022 Glucose Ql (U) 1000 mg/dl Normal [facility] Urine leukocyte esterase det ection by dipstickOrdered By: Jann Hoffmann on 11-08-2022 Leukocyte esterase Test strip Ql (U) 25 /ul Negative [facility] Urine pHOrdered By: Jann rayo on 11-08-2022 pH (U) 5.0 [pH] 5.0 - 8.0 [facility] Urine sediment bacteria coun t by microscopy (number/high power field)Ordered By: Jann Hoffmann on 11-08-2022 Bacteria LM.HPF (Urine sed) [#/Area] 0 /[HPF] None Seen [facility] Urine specific gravity measu rementOrdered By: Jann Hoffmann on 11-08-2022 Specific gravity (U) [Rel density] 1.020 1.002-1.03 0 [facility] Urobilinogen Auto test strip Ql (U)Ordered By: Jann Hoffmann on 11-08-2022 Urobilinogen Ql (U) 1 mg/dl Normal [facility] XR WRIST MINIMUM 3 VIEWS RIG HTon 04-30-2021 XR WRIST MINIMUM 3 VIEWS RIGHT ORIGINAL EXAMINATION: THREE XRAY VIEWS OF THE RIGHT WRIST 04/30/2021 7:34 am COMPARISON: None. HISTORY: ORDERING SYSTEM PROVIDED HISTORY: Reason for Exam: pain FINDINGS: There is an obliquely orientated minimally to nondisplaced comminuted intra-articular fracture of the distal radius across the base of the radial styloid process. No other fractures are evident. Degenerative changes are present and most prominent at the 1st [facility]. IMPRESSION: Obliquely orientated comminuted fracture of the radial styloid with intra-articular extension. I have personally reviewed the images of this examination, and agree with the resident's findings and interpretation. Interpreted by: Dario Gregory MD Preliminary Report By: Lucas Piper Electronically signed By Dario Gregory MD Dictated Date: 04/30/2021 7:38:18 AM Prelim Date: 04/30/2021 7:40:35 AM Sign Date: 04/30/2021 7:45:14 AM Ordering Provider: MILAD BERKELEYDAILY [facility] ([place]) CT MAXILLOFACIAL W/O CONTRAS Ton 04-21-2021 CT MAXILLOFACIAL W/O CONTRAST ADDENDUM ADDENDUM: Nasal bone fracture demonstrates sclerotic change with cortical thickening and is favored to be remote in nature. Interpreted by: Kalia Engle MD Preliminary Report By: Kalia Engle MD Electronically signed By Kalia Engle MD Dictated Date: 04/21/2021 12:01:55 AM Prelim Date: 04/21/2021 12:03:08 AM Sign Date: 04/21/2021 12:03:08 AM Ordering Provider: JACKSON NOVA ORIGINAL EXAMINATION: CT OF THE FACE WITHOUT CONTRAST 02/26/2021 6:42 pm TECHNIQUE: CT of the face was performed without the administration of intravenous contrast. Multiplanar reformatted images are provided for review. Dose modulation, iterative reconstruction, and/or weight based adjustment of the mA/kV was utilized to reduce the radiation dose to as low as reasonably achievable. COMPARISON: None HISTORY: ORDERING SYSTEM PROVIDED HISTORY: Reason for Exam: fall FINDINGS: FACIAL BONES: Comminuted nasal bone fracture with mild overlying soft tissue swelling. No other acute fracture is identified. ORBITS: The globes appear intact. The extraocular muscles, optic nerve sheath complexes and lacrimal glands appear unremarkable. No retrobulbar hematoma or mass is seen. The orbital rao and rims are intact. SINUSES/MASTOIDS: The paranasal sinuses and mastoid air cells are well aerated. No acute fracture is seen. SOFT TISSUES: No appreciable facial soft tissue swelling is seen. IMPRESSION: Comminuted nasal bone fracture. Interpreted by: Kalia Engle MD Preliminary Report By: Kalia Engle MD Electronically signed By Kalia Engle MD Dictated Date: 02/26/2021 7:13:18 PM Prelim Date: 02/26/2021 7:16:20 PM Sign Date: 02/26/2021 7:16:20 PM Ordering Provider: JACKSON Rojas [facility] ([place]) .Auto Diffon 03-01-2021 Basophil, Absolute 0.00 10 3/mcL Normal 0.00-0.19 [facility] ([place]) Comment on above: Performed By: #### C BC, ADIFF, ANEU, GFR, CMP, PRO, LAC #### [address] [address] Basophils/100 WBC (Bld) 0.1 % Normal 0.0-2.5 [facility] ([place]) Comment on above: Performed By: #### C BC, ADIFF, ANEU, GFR, CMP, PRO, LAC #### [address] [address] Eosinophil, Absolute 0.10 10 3/mcL Normal 0.00-0.40 [facility] ([place]) Comment on above: Performed By: #### C BC, ADIFF, ANEU, GFR, CMP, PRO, LAC #### [address] [address] Eosinophils/100 WBC (Bld) 1.1 % Normal 0.0-7.0 [facility] ([place]) Comment on above: Performed By: #### C BC, ADIFF, ANEU, GFR, CMP, PRO, LAC #### [address] [address] Lymphocyte, Absolute 0.40 10 3/mcL Low 0.77-3.85 [facility] ([place]) Comment on above: Performed By: #### C BC, ADIFF, ANEU, GFR, CMP, PRO, LAC #### [address] [address] Lymphocytes/100 WBC (Bld) 5.2 % Low 10.0-50.0 [facility] ([place]) Comment on above: Performed By: #### C BC, ADIFF, ANEU, GFR, CMP, PRO, LAC #### [address] [address] Monocyte, Absolute 0.60 10 3/mcL Normal 0.15-1.00 [facility] ([place]) Comment on above: Performed By: #### C BC, ADIFF, ANEU, GFR, CMP, PRO, LAC #### [address] [address] Monocytes/100 WBC (Bld) 7.6 % Normal 1.7-13.0 [facility] ([place]) Comment on above: Performed By: #### C BC, ADIFF, ANEU, GFR, CMP, PRO, LAC #### [address] [address] Neutrophils/100 WBC (Bld) 86.0 % High 37.0-80.0 [facility] ([place]) Comment on above: Performed By: #### C BC, ADIFF, ANEU, GFR, CMP, PRO, LAC #### [address] [address] .GFRon 03-01-2021 GFR 106 ml/min/1.73sqm Normal [facility] ([place]) Comment on above: Result Comment: GFR Population mean for , Non- Americans Ages 20-29 = 116 mL/min/1.73 sq.m. Ages 30-39 = 107 mL/min/1.73 sq.m. Ages 40-49 = 99 mL/min/1.73 sq.m. Ages 50-59 = 93 mL/min/1.73 sq.m. Ages 60-69 = 85 mL/min/1.73 sq.m. Ages 70+ = 75 mL/min/1.73 sq.m. Chronic Kidney Disease: Less than 60 mL/min/1.73 square meters End Stage Renal Disease: Less than 15 mL/min/1.73 square meters Performed By: #### C BC, ADIFF, ANEU, GFR, CMP, PRO, LAC #### [address] [address] GFR Non- 88 ml/min/1.73sqm Normal [facility] ([place]) Comment on above: Result Comment: GFR Population mean for , Non- Americans Ages 20-29 = 116 mL/min/1.73 sq.m. Ages 30-39 = 107 mL/min/1.73 sq.m. Ages 40-49 = 99 mL/min/1.73 sq.m. Ages 50-59 = 93 mL/min/1.73 sq.m. Ages 60-69 = 85 mL/min/1.73 sq.m. Ages 70+ = 75 mL/min/1.73 sq.m. Chronic Kidney Disease: Less than 60 mL/min/1.73 square meters End Stage Renal Disease: Less than 15 mL/min/1.73 square meters Performed By: #### C BC, ADIFF, ANEU, GFR, CMP, PRO, LAC #### [address] [address] .NEUABSon 03-01-2021 Neutrophil, Absolute 6.60 10 3/mcL High 2.85-6.16 [facility] ([place]) Comment on above: Performed By: #### C BC, ADIFF, ANEU, GFR, CMP, PRO, LAC #### [address] [address] CBCon 03-01-2021 Erythrocyte distribution width (RBC) [Ratio] 12.7 % Normal 11.5-14.5 [facility] ([place]) Comment on above: Performed By: #### C BC, ADIFF, ANEU, GFR, CMP, PRO, LAC #### [address] [address] Hematocrit (Bld) [Volume fraction] 38.6 % Low 42.0-52.0 [facility] ([place]) Comment on above: Performed By: #### C BC, ADIFF, ANEU, GFR, CMP, PRO, LAC #### [address] [address] Hgb 13.8 G/dL Low 14.0-18.0 [facility] ([place]) Comment on above: Performed By: #### C BC, ADIFF, ANEU, GFR, CMP, PRO, LAC #### [address] [address] MCH (RBC) [Entitic mass] 29.8 pg Normal 27.0-31.2 [facility] ([place]) Comment on above: Performed By: #### C BC, ADIFF, ANEU, GFR, CMP, PRO, LAC #### [address] [address] MCHC 35.6 G/dL High 31.8-35.4 [facility] ([place]) Comment on above: Performed By: #### C BC, ADIFF, ANEU, GFR, CMP, PRO, LAC #### [address] [address] MCV (RBC) [Entitic vol] 83.8 fL Normal 80.0-94.0 [facility] ([place]) Comment on above: Performed By: #### C BC, ADIFF, ANEU, GFR, CMP, PRO, LAC #### [address] [address] Platelet 256 10 3/mcL Normal 130-400 [facility] ([place]) Comment on above: Performed By: #### C BC, ADIFF, ANEU, GFR, CMP, PRO, LAC #### [address] [address] Platelet mean volume (Bld) [Entitic vol] 6.5 fL Low 7.4-10.4 [facility] ([place]) Comment on above: Performed By: #### C BC, ADIFF, ANEU, GFR, CMP, PRO, LAC #### [address] [address] RBC 4.61 10 6/mcL Normal 4.04-6.13 [facility] ([place]) Comment on above: Performed By: #### C BC, ADIFF, ANEU, GFR, CMP, PRO, LAC #### [address] [address] WBC 7.60 10 3/mcL Normal 4.60-10.80 [facility] ([place]) Comment on above: Performed By: #### C BC, ADIFF, ANEU, GFR, CMP, PRO, LAC #### [address] [address] CMPon 03-01-2021 Albumin Level 2.3 G/dL Low 3.4-4.8 [facility] ([place]) Comment on above: Performed By: #### C BC, ADIFF, ANEU, GFR, CMP, PRO, LAC #### [address] [address] Albumin/Globulin [Mass ratio] 0.8 {ratio} Low 1.1-2.5 [facility] ([place]) Comment on above: Performed By: #### C BC, ADIFF, ANEU, GFR, CMP, PRO, LAC #### [address] [address] ALP [Catalytic activity/Vol] 82 U/L Normal 40-135 [facility] ([place]) Comment on above: Performed By: #### C BC, ADIFF, ANEU, GFR, CMP, PRO, LAC #### [address] [address] ALT [Catalytic activity/Vol] 42 U/L Normal 16-63 [facility] ([place]) Comment on above: Performed By: #### C BC, ADIFF, ANEU, GFR, CMP, PRO, LAC #### [address] [address] AST [Catalytic activity/Vol] 27 U/L Normal 10-40 [facility] ([place]) Comment on above: Performed By: #### C BC, ADIFF, ANEU, GFR, CMP, PRO, LAC #### [address] [address] Bili Total 2.1 mg/dL High 0.2-1.0 [facility] ([place]) Comment on above: Result Comment: Use of this assay is not recommended for patients undergoing treatment with eltrombopag due to the potential for falsely elevated results. Performed By: #### C BC, ADIFF, ANEU, GFR, CMP, PRO, LAC #### [address] [address] BUN/Creatinine Ratio 16 ratio Normal 7-27 [facility] ([place]) Comment on above: Performed By: #### C BC, ADIFF, ANEU, GFR, CMP, PRO, LAC #### [address] [address] Calcium [Mass/Vol] 7.6 mg/dL Low 8.4-10.2 [facility] ([place]) Comment on above: Performed By: #### C BC, ADIFF, ANEU, GFR, CMP, PRO, LAC #### [address] [address] Chloride [Moles/Vol] 101 mmol/L Normal 98-107 [facility]) Comment on above: Performed By: #### C BC, ADIFF, ANEU, GFR, CMP, PRO, LAC #### [place] [address] CO2 [Moles/Vol] 22 mmol/L Low 23-31 [facility] ([place]) Comment on above: Performed By: #### C BC, ADIFF, ANEU, GFR, CMP, PRO, LAC #### [place] [address] Creatinine [Mass/Vol] 0.86 mg/dL Normal 0.70-1.30 [facility] ([place]) Comment on above: Performed By: #### C BC, ADIFF, ANEU, GFR, CMP, PRO, LAC #### [address] [address] Electrolyte Balance 14.0 mEq/L Normal On license of [facility] ([place]) Comment on above: Performed By: #### C BC, ADIFF, ANEU, GFR, CMP, PRO, LAC #### [address] [address] Globulin 3.0 G/dL Normal [facility] ([place]) Comment on above: Performed By: #### C BC, ADIFF, ANEU, GFR, CMP, PRO, LAC #### [place] [address] Glucose [Mass/Vol] 159 mg/dL High 83-110 [facility] ([place]) Comment on above: Performed By: #### C BC, ADIFF, ANEU, GFR, CMP, PRO, LAC #### [address] [address] Potassium [Moles/Vol] 3.6 mmol/L Normal 3.5-5.1 [facility] ([place]) Comment on above: Performed By: #### C BC, ADIFF, ANEU, GFR, CMP, PRO, LAC #### [address] [address] Sodium [Moles/Vol] 137 mmol/L Normal 136-145 [facility]) Comment on above: Performed By: #### C BC, ADIFF, ANEU, GFR, CMP, PRO, LAC #### [address] [address] Total Protein 5.3 G/dL Low 6.4-8.2 [facility]) Comment on above: Performed By: #### C BC, ADIFF, ANEU, GFR, CMP, PRO, LAC #### [address] [address] Urea nitrogen [Mass/Vol] 14 mg/dL Normal 7-18 [facility]) Comment on above: Performed By: #### C BC, ADIFF, ANEU, GFR, CMP, PRO, LAC #### [address] [address] CRPon 03-01-2021 C-Reactive Protein 11.4 mg/dL High 0.0-0.9 [facility] ([place]) Comment on above: Performed By: #### C BC, ADIFF, ANEU, GFR, CMP, PRO, LAC #### [address] [address] DIMERon 03-01-2021 D-Dimer 3542 ng/mL D-DU High 0-230 [facility] ([place]) Comment on above: Result Comment: The result of the D-Dimer test should be evaluated in the context of all the clinical and laboratory data available. In those instances where the laboratory result does not agree with the clinical evaluation, additional tests should be performed accordingly. If the D-Dimer result is used to exclude DVT or PE, the recommended cutoff value is less than 230 ng/mL. The D-Dimer result should not be used alone to rule in DVT/PE, but should be used in conjunction with a clinical pretest probability (PTP)assessment model to exclude venous thromboembolism (VTE) in outpatients suspected of deep venous thrombosis (DVT) and pulmonary embolism (PE). Performed By: #### C BC, ADIFF, ANEU, GFR, CMP, PRO, LAC #### [address] [address] Kristina 03-01-2021 Ferritin [Mass/Vol] 612.5 ng/mL High 26.0-388.0 [facility] ([place]) Comment on above: Performed By: #### C BC, ADIFF, ANEU, GFR, CMP, PRO, LAC #### [place] [id number] [place], [place] [address] FIBon 03-01-2021 Fibrinogen 927 mg/dL High 334-713 [facility] ([place]) Comment on above: Performed By: #### C BC, ADIFF, ANEU, GFR, CMP, PRO, LAC #### [address] [address] LABORATORYOrdered By: Yesy Bradley on 03-01-2021 Albumin BCP dye [Mass/Vol] 2.3 G/dL Invalid Interpretation Code 3.4 - 4.8 G/dL AO ADM SS Albumin/Globulin [Mass ratio] 0.8 {ratio} Invalid Interpretation Code 1.1 - 2.5 ratio AO ADM SS ALP [Catalytic activity/Vol] 82 U/L Invalid Interpretation Code 40 - 135 U/L AO ADM SS ALT With P-5'-P [Catalytic activity/Vol] 42 U/L Invalid Interpretation Code 16 - 63 U/L AO ADM SS AST With P-5'-P [Catalytic activity/Vol] 27 U/L Invalid Interpretation Code 10 - 40 U/L AO ADM SS Basophil, Absolute 0.00 103/mcL Invalid Interpretation Code 0.00 - 0.19 10^3/mcL AO Auto Heme SS Basophils/100 WBC (Bld) 0.1 % Invalid Interpretation Code 0.0 - 2.5 % AO Auto Heme SS Bilirubin [Mass/Vol] 2.1 mg/dL Invalid Interpretation Code 0.2 - 1.0 mg/dL AO ADM SS Calcium [Mass/Vol] 7.6 mg/dL Invalid Interpretation Code 8.4 - 10.2 mg/dL AO ADM SS Chloride [Moles/Vol] 101 mmol/L Invalid Interpretation Code 98 - 107 mmol/L AO ADM SS CO2 [Moles/Vol] 22 mmol/L Invalid Interpretation Code 23 - 31 mmol/L AO ADM SS Creatinine [Mass/Vol] 0.86 mg/dL Invalid Interpretation Code 0.70 - 1.30 mg/dL AO ADM SS CRP [Mass/Vol] 11.4 mg/dL Invalid Interpretation Code 0.0 - 0.9 mg/dL AO ADM SS Electrolyte Balance 14.0 mEq/L Invalid Interpretation Code AO ADM SS Eosinophil, Absolute 0.10 103/mcL Invalid Interpretation Code 0.00 - 0.40 10^3/mcL AO Auto Heme SS Eosinophils/100 WBC (Bld) 1.1 % Invalid Interpretation Code 0.0 - 7.0 % AO Auto Heme SS Erythrocyte distribution width (RBC) [Ratio] 12.7 % Invalid Interpretation Code 11.5 - 14.5 % AO Auto Heme SS Fibrin D-dimer DDU (PPP) [Mass/Vol] 3542 ng/mL D-DU Invalid Interpretation Code 0 - 230 ng/mL D-DU AO Coag SS Fibrinogen Coag (PPP) [Mass/Vol] 927 mg/dL Invalid Interpretation Code 334 - 713 mg/dL AO Coag SS Globulin 3.0 G/dL Invalid Interpretation Code AO ADM SS Glucose [Mass/Vol] 159 mg/dL Invalid Interpretation Code 83 - 110 mg/dL AO ADM SS Hematocrit (Bld) [Volume fraction] 38.6 % Invalid Interpretation Code 42.0 - 52.0 % AO Auto Heme SS Hemoglobin (Bld) [Mass/Vol] 13.8 G/dL Invalid Interpretation Code 14.0 - 18.0 G/dL AO Auto Heme SS INR Coag (PPP) [Relative time] 1.2 {INR} Invalid Interpretation Code 0.9 - 1.2 ratio AO Coag SS LDH [Catalytic activity/Vol] 289 U/L Invalid Interpretation Code 85 - 227 U/L AO ADM SS Lymphocyte, Absolute 0.40 103/mcL Invalid Interpretation Code 0.77 - 3.85 10^3/mcL AO Auto Heme SS Lymphocytes/100 WBC (Bld) 5.2 % Invalid Interpretation Code 10.0 - 50.0 % AO Auto Heme SS Magnesium [Mass/Vol] 2.0 mg/dL Invalid Interpretation Code 1.8 - 2.4 mg/dL AO ADM SS MCH (RBC) [Entitic mass] 29.8 pg Invalid Interpretation Code 27.0 - 31.2 pg AO Auto Heme SS MCHC (RBC) [Mass/Vol] 35.6 G/dL Invalid Interpretation Code 31.8 - 35.4 G/dL AO Auto Heme SS MCV (RBC) [Entitic vol] 83.8 fL Invalid Interpretation Code 80.0 - 94.0 fL AO Auto Heme SS Monocyte, Absolute 0.60 103/mcL Invalid Interpretation Code 0.15 - 1.00 10^3/mcL AO Auto Heme SS Monocytes/100 WBC (Bld) 7.6 % Invalid Interpretation Code 1.7 - 13.0 % AO Auto Heme SS Neutrophil, Absolute 6.60 103/mcL Invalid Interpretation Code 2.85 - 6.16 10^3/mcL AO Auto Heme SS Neutrophils/100 WBC (Bld) 86.0 % Invalid Interpretation Code 37.0 - 80.0 % AO Auto Heme SS Platelet mean volume (Bld) [Entitic vol] 6.5 fL Invalid Interpretation Code 7.4 - 10.4 fL AO Auto Heme SS Platelets (Bld) [#/Vol] 256 103/mcL Invalid Interpretation Code 130 - 400 10^3/mcL AO Auto Heme SS Potassium [Moles/Vol] 3.6 mmol/L Invalid Interpretation Code 3.5 - 5.1 mmol/L AO ADM SS Protein [Mass/Vol] 5.3 G/dL Invalid Interpretation Code 6.4 - 8.2 G/dL AO ADM SS PT Coag (PPP) [Time] 13.8 s Invalid Interpretation Code 9.7 - 14.3 seconds AO Coag SS RBC (Bld) [#/Vol] 4.61 106/mcL Invalid Interpretation Code 4.04 - 6.13 10^6/mcL AO Auto Heme SS Sodium [Moles/Vol] 137 mmol/L Invalid Interpretation Code 136 - 145 mmol/L AO ADM SS Troponin I.cardiac DL <= 0.01 ng/mL [Mass/Vol] 21.8 ng/L Invalid Interpretation Code 0.0 - 76.2 ng/L AO ADM SS Urea nitrogen [Mass/Vol] 14 mg/dL Invalid Interpretation Code 7 - 18 mg/dL AO ADM SS Urea nitrogen/Creatinine [Mass ratio] 16 ratio Invalid Interpretation Code 7 - 27 ratio AO ADM SS WBC (Bld) [#/Vol] 7.60 103/mcL Invalid Interpretation Code 4.60 - 10.80 10^3/mcL AO Auto Heme SS LABORATORYOrdered By: SYSTEM SYSTEM on 03-01-2021 Ferritin [Mass/Vol] 612.5 ng/mL Invalid Interpretation Code 26.0 - 388.0 ng/mL AH ADM SS GFR 106 ml/min/1.73sqm Invalid Interpretation Code AO Chemistry S GFR Non- 88 ml/min/1.73sqm Invalid Interpretation Code AO Chemistry S LDHon 03-01-2021 LDH 289 U/L High 85-227 [facility] ([place]) Comment on above: Performed By: #### C BC, ADIFF, ANEU, GFR, CMP, PRO, LAC #### [address] [address] MGon 03-01-2021 Magnesium [Mass/Vol] 2.0 mg/dL Normal 1.8-2.4 [facility] ([place]) Comment on above: Performed By: #### C BC, ADIFF, ANEU, GFR, CMP, PRO, LAC #### [address] [address] PROon 03-01-2021 INR Coag (PPP) [Relative time] 1.2 {INR} Normal 0.9-1.2 [facility] ([place]) Comment on above: Result Comment: Miguel dard Dose 2.0 - 3.0 High Dose 2.5 - 3.5 The recommended therapeutic range for oral anticoagulant therapy is: LOW RISK: Prophylaxis of venous thrombosis INR: 2.0 - 3.0 Treatment of pulmonary embolism 2.0 - 3.0 Prevention of systemic embolism 2.0 - 3.0 HIGH RISK: Mechanical prosthetic valves 2.5 - 3.5 Performed By: #### C BC, ADIFF, ANEU, GFR, CMP, PRO, LAC #### [address] [address] PT Coag (PPP) [Time] 13.8 s Normal 9.7-14.3 [facility] ([place]) Comment on above: Performed By: #### C BC, ADIFF, ANEU, GFR, CMP, PRO, LAC #### [id number] [place], [place] [address] TROPHSon 03-01-2021 Troponin I High Sensitivity 21.8 ng/L Normal 0.0-76.2 [facility] ([place] Comment on above: Performed By: #### C BC, ADIFF, ANEU, GFR, CMP, PRO, LAC #### [id number] [place], [place] [address] XR CHEST 1 VIEWon 03-01-2021 XR CHEST 1 VIEW ORIGINAL EXAMINATION: ONE XRAY VIEW OF THE CHEST 03/01/2021 7:56 am COMPARISON: None. HISTORY: ORDERING SYSTEM PROVIDED HISTORY: Reason for Exam: Choking on fluids, possible aspiration FINDINGS: The heart is slightly prominent without vascular congestion. There are coarse bilateral areas of consolidation present greatest peripherally. No pleural fluid is visible. There are degenerative changes in the spine. IMPRESSION: Coarse bilateral infiltrates/pneumonia. Interpreted by: Anibal Garcia MD Preliminary Report By: Anibal Garcia MD Electronically signed By Anibal Garcia MD Dictated Date: 03/01/2021 8:24:41 AM Prelim Date: 03/01/2021 8:25:08 AM Sign Date: 03/01/2021 8:25:08 AM Ordering Provider: CRWO Rojas [facility]) .Auto Diffon 02-28-2021 Basophil, Absolute 0.00 10 3/mcL Normal 0.00-0.19 [facility] ([place]) Comment on above: Performed By: #### C BC, ADIFF, ANEU, GFR, CMP, PRO, LAC #### [address] [address] Basophils/100 WBC (Bld) 0.1 % Normal 0.0-2.5 [facility] ([place]) Comment on above: Performed By: #### C BC, ADIFF, ANEU, GFR, CMP, PRO, LAC #### [address] [address] Eosinophil, Absolute 0.00 10 3/mcL Normal 0.00-0.40 [facility] ([place]) Comment on above: Performed By: #### C BC, ADIFF, ANEU, GFR, CMP, PRO, LAC #### [address] [address] Eosinophils/100 WBC (Bld) 0.4 % Normal 0.0-7.0 [facility] ([place]) Comment on above: Performed By: #### C BC, ADIFF, ANEU, GFR, CMP, PRO, LAC #### [address] [address] Lymphocyte, Absolute 0.60 10 3/mcL Low 0.77-3.85 [facility] ([place]) Comment on above: Performed By: #### C BC, ADIFF, ANEU, GFR, CMP, PRO, LAC #### [address] [address] Lymphocytes/100 WBC (Bld) 6.8 % Low 10.0-50.0 [facility] ([place]) Comment on above: Performed By: #### C BC, ADIFF, ANEU, GFR, CMP, PRO, LAC #### [address] [address] Monocyte, Absolute 0.50 10 3/mcL Normal 0.15-1.00 [facility] ([place]) Comment on above: Performed By: #### C BC, ADIFF, ANEU, GFR, CMP, PRO, LAC #### [address] [address] Monocytes/100 WBC (Bld) 6.0 % Normal 1.7-13.0 [facility] ([place]) Comment on above: Performed By: #### C BC, ADIFF, ANEU, GFR, CMP, PRO, LAC #### [address] [address] Neutrophils/100 WBC (Bld) 86.7 % High 37.0-80.0 [facility] ([place]) Comment on above: Performed By: #### C BC, ADIFF, ANEU, GFR, CMP, PRO, LAC #### [address] [address] .GFRon 02-28-2021 GFR 103 ml/min/1.73sqm Normal [facility] ([place]) Comment on above: Result Comment: GFR Population mean for , Non- Americans Ages 20-29 = 116 mL/min/1.73 sq.m. Ages 30-39 = 107 mL/min/1.73 sq.m. Ages 40-49 = 99 mL/min/1.73 sq.m. Ages 50-59 = 93 mL/min/1.73 sq.m. Ages 60-69 = 85 mL/min/1.73 sq.m. Ages 70+ = 75 mL/min/1.73 sq.m. Chronic Kidney Disease: Less than 60 mL/min/1.73 square meters End Stage Renal Disease: Less than 15 mL/min/1.73 square meters Performed By: #### C BC, ADIFF, ANEU, GFR, CMP, PRO, LAC #### [address] [address] GFR Non- 85 ml/min/1.73sqm Normal [facility] ([place]) Comment on above: Result Comment: GFR Population mean for , Non- Americans Ages 20-29 = 116 mL/min/1.73 sq.m. Ages 30-39 = 107 mL/min/1.73 sq.m. Ages 40-49 = 99 mL/min/1.73 sq.m. Ages 50-59 = 93 mL/min/1.73 sq.m. Ages 60-69 = 85 mL/min/1.73 sq.m. Ages 70+ = 75 mL/min/1.73 sq.m. Chronic Kidney Disease: Less than 60 mL/min/1.73 square meters End Stage Renal Disease: Less than 15 mL/min/1.73 square meters Performed By: #### C BC, ADIFF, ANEU, GFR, CMP, PRO, LAC #### [address] [address] .NEUABSon 02-28-2021 Neutrophil, Absolute 7.80 10 3/mcL High 2.85-6.16 [facility] ([place]) Comment on above: Performed By: #### C BC, ADIFF, ANEU, GFR, CMP, PRO, LAC #### [address] [address] CBCon 02-28-2021 Erythrocyte distribution width (RBC) [Ratio] 12.7 % Normal 11.5-14.5 [facility] ([place] Comment on above: Performed By: #### C BC, ADIFF, ANEU, GFR, CMP, PRO, LAC #### [place] [address] Hematocrit (Bld) [Volume fraction] 38.5 % Low 42.0-52.0 [facility] ([place] Comment on above: Performed By: #### C BC, ADIFF, ANEU, GFR, CMP, PRO, LAC #### [place] [address] Hgb 13.8 G/dL Low 14.0-18.0 [facility] ([place] Comment on above: Performed By: #### C BC, ADIFF, ANEU, GFR, CMP, PRO, LAC #### [address] [address] MCH (RBC) [Entitic mass] 30.2 pg Normal 27.0-31.2 [facility] ([place] Comment on above: Performed By: #### C BC, ADIFF, ANEU, GFR, CMP, PRO, LAC #### [place] [address] MCHC 35.8 G/dL High 31.8-35.4 [facility] ([place] Comment on above: Performed By: #### C BC, ADIFF, ANEU, GFR, CMP, PRO, LAC #### [place] [address] MCV (RBC) [Entitic vol] 84.2 fL Normal 80.0-94.0 [facility] ([place]) Comment on above: Performed By: #### C BC, ADIFF, ANEU, GFR, CMP, PRO, LAC #### [address] [place] [address] Platelet 225 10 3/mcL Normal 130-400 [facility] ([place] Comment on above: Performed By: #### C BC, ADIFF, ANEU, GFR, CMP, PRO, LAC #### [address] [address] Platelet mean volume (Bld) [Entitic vol] 6.6 fL Low 7.4-10.4 [facility] ([place] Comment on above: Performed By: #### C BC, ADIFF, ANEU, GFR, CMP, PRO, LAC #### [address] [address] RBC 4.57 10 6/mcL Normal 4.04-6.13 [facility] ([place] Comment on above: Performed By: #### C BC, ADIFF, ANEU, GFR, CMP, PRO, LAC #### [place] [address] WBC 9.00 10 3/mcL Normal 4.60-10.80 [facility] ([place] Comment on above: Performed By: #### C BC, ADIFF, ANEU, GFR, CMP, PRO, LAC #### [address] [address] CMPon 02-28-2021 Albumin Level 2.5 G/dL Low 3.4-4.8 [facility] ([place] Comment on above: Performed By: #### C BC, ADIFF, ANEU, GFR, CMP, PRO, LAC #### [address] [address] Albumin/Globulin [Mass ratio] 0.8 {ratio} Low 1.1-2.5 [facility] ([place] Comment on above: Performed By: #### C BC, ADIFF, ANEU, GFR, CMP, PRO, LAC #### [address] [address] ALP [Catalytic activity/Vol] 73 U/L Normal 40-135 [facility] ([place] Comment on above: Performed By: #### C BC, ADIFF, ANEU, GFR, CMP, PRO, LAC #### [address] [address] ALT [Catalytic activity/Vol] 44 U/L Normal 16-63 [facility] ([place] Comment on above: Performed By: #### C BC, ADIFF, ANEU, GFR, CMP, PRO, LAC #### [address] [address] AST [Catalytic activity/Vol] 29 U/L Normal 10-40 [facility] ([place] Comment on above: Performed By: #### C BC, ADIFF, ANEU, GFR, CMP, PRO, LAC #### [address] [address] Bili Total 2.0 mg/dL High 0.2-1.0 [facility] ([place] Comment on above: Result Comment: Use of this assay is not recommended for patients undergoing treatment with eltrombopag due to the potential for falsely elevated results. Performed By: #### C BC, ADIFF, ANEU, GFR, CMP, PRO, LAC #### [address] [address] BUN/Creatinine Ratio 15 ratio Normal 7-27 [facility] ([place]) Comment on above: Performed By: #### C BC, ADIFF, ANEU, GFR, CMP, PRO, LAC #### [address] [address] Calcium [Mass/Vol] 7.8 mg/dL Low 8.4-10.2 [facility] ([place]) Comment on above: Performed By: #### C BC, ADIFF, ANEU, GFR, CMP, PRO, LAC #### [address] [address] Chloride [Moles/Vol] 102 mmol/L Normal 98-107 [facility] ([place] Comment on above: Performed By: #### C BC, ADIFF, ANEU, GFR, CMP, PRO, LAC #### [address] [address] CO2 [Moles/Vol] 24 mmol/L Normal 23-31 [facility] ([place] Comment on above: Performed By: #### C BC, ADIFF, ANEU, GFR, CMP, PRO, LAC #### [address] [address] Creatinine [Mass/Vol] 0.88 mg/dL Normal 0.70-1.30 [facility] ([place]) Comment on above: Performed By: #### C BC, ADIFF, ANEU, GFR, CMP, PRO, LAC #### [address] [address] Electrolyte Balance 10.0 mEq/L Normal On license of [facility] ([place]) Comment on above: Performed By: #### C BC, ADIFF, ANEU, GFR, CMP, PRO, LAC #### [address] [address] Globulin 3.0 G/dL Normal [facility] ([place] Comment on above: Performed By: #### C BC, ADIFF, ANEU, GFR, CMP, PRO, LAC #### [address] [address] Glucose [Mass/Vol] 154 mg/dL High 83-110 [facility] ([place]) Comment on above: Performed By: #### C BC, ADIFF, ANEU, GFR, CMP, PRO, LAC #### [address] [address] Potassium [Moles/Vol] 3.8 mmol/L Normal 3.5-5.1 [facility] ([place]) Comment on above: Performed By: #### C BC, ADIFF, ANEU, GFR, CMP, PRO, LAC #### [address] [address] Sodium [Moles/Vol] 136 mmol/L Normal 136-145 [facility] ([place] Comment on above: Performed By: #### C BC, ADIFF, ANEU, GFR, CMP, PRO, LAC #### [address] [address] Total Protein 5.5 G/dL Low 6.4-8.2 [facility] ([place] Comment on above: Performed By: #### C BC, ADIFF, ANEU, GFR, CMP, PRO, LAC #### [address] [address] Urea nitrogen [Mass/Vol] 13 mg/dL Normal 7-18 [facility] ([place] Comment on above: Performed By: #### C BC, ADIFF, ANEU, GFR, CMP, PRO, LAC #### [id number] [place], [place] [address] CRPon 02-28-2021 C-Reactive Protein 11.4 mg/dL High 0.0-0.9 [facility] ([place]) Comment on above: Performed By: #### C BC, ADIFF, ANEU, GFR, CMP, PRO, LAC #### [id number] [place], [place] [address] DIMERon 02-28-2021 D-Dimer 2603 ng/mL D-DU High 0-230 [facility] ([place] Comment on above: Result Comment: The result of the D-Dimer test should be evaluated in the context of all the clinical and laboratory data available. In those instances where the laboratory result does not agree with the clinical evaluation, additional tests should be performed accordingly. If the D-Dimer result is used to exclude DVT or PE, the recommended cutoff value is less than 230 ng/mL. The D-Dimer result should not be used alone to rule in DVT/PE, but should be used in conjunction with a clinical pretest probability (PTP)assessment model to exclude venous thromboembolism (VTE) in outpatients suspected of deep venous thrombosis (DVT) and pulmonary embolism (PE). Performed By: #### C BC, ADIFF, ANEU, GFR, CMP, PRO, LAC #### [address] [address] Kristina 02-28-2021 Ferritin [Mass/Vol] 611.0 ng/mL High 26.0-388.0 [facility] ([place] Comment on above: Performed By: #### C BC, ADIFF, ANEU, GFR, CMP, PRO, LAC #### [address] [address] FIBon 02-28-2021 Fibrinogen 802 mg/dL High 334-713 [facility] ([place] Comment on above: Performed By: #### C BC, ADIFF, ANEU, GFR, CMP, PRO, LAC #### [facility] [address] [place], [place] [address] LABORATORYOrdered By: Rosie Carrillo on 02-28-2021 Blood Glucose Testing Reason Routine (02/28/21 10:24 PM) [facility] Work Phone: Glucose [Mass/Vol] 169 mg/dL Invalid Interpretation Code 82 - 115 mg/dL [facility] Work Phone: LABORATORYOrdered By: Ana Bird on 02-28-2021 Blood Glucose Testing Reason Routine (02/28/21 9:43 PM) [facility] Work Phone: Glucose [Mass/Vol] 169 mg/dL Invalid Interpretation Code 82 - 115 mg/dL [facility] Work Phone: LABORATORYOrdered By: Vicki Tejada on 02-28-2021 Blood Glucose Testing Reason Routine (02/28/21 11:39 AM) [facility] Work Phone: Glucose [Mass/Vol] 157 mg/dL Invalid Interpretation Code 82 - 115 mg/dL [facility] Work Phone: LABORATORYOrdered By: Yesy Bradley on 02-28-2021 Albumin BCP dye [Mass/Vol] 2.5 G/dL Invalid Interpretation Code 3.4 - 4.8 G/dL AO ADM SS Albumin/Globulin [Mass ratio] 0.8 {ratio} Invalid Interpretation Code 1.1 - 2.5 ratio AO ADM SS ALP [Catalytic activity/Vol] 73 U/L Invalid Interpretation Code 40 - 135 U/L AO ADM SS ALT With P-5'-P [Catalytic activity/Vol] 44 U/L Invalid Interpretation Code 16 - 63 U/L AO ADM SS AST With P-5'-P [Catalytic activity/Vol] 29 U/L Invalid Interpretation Code 10 - 40 U/L AO ADM SS Basophil, Absolute 0.00 103/mcL Invalid Interpretation Code 0.00 - 0.19 10^3/mcL AO Auto Heme SS Basophils/100 WBC (Bld) 0.1 % Invalid Interpretation Code 0.0 - 2.5 % AO Auto Heme SS Bilirubin [Mass/Vol] 2.0 mg/dL Invalid Interpretation Code 0.2 - 1.0 mg/dL AO ADM SS Calcium [Mass/Vol] 7.8 mg/dL Invalid Interpretation Code 8.4 - 10.2 mg/dL AO ADM SS Chloride [Moles/Vol] 102 mmol/L Invalid Interpretation Code 98 - 107 mmol/L AO ADM SS CO2 [Moles/Vol] 24 mmol/L Invalid Interpretation Code 23 - 31 mmol/L AO ADM SS Creatinine [Mass/Vol] 0.88 mg/dL Invalid Interpretation Code 0.70 - 1.30 mg/dL AO ADM SS CRP [Mass/Vol] 11.4 mg/dL Invalid Interpretation Code 0.0 - 0.9 mg/dL AO ADM SS Electrolyte Balance 10.0 mEq/L Invalid Interpretation Code AO ADM SS Eosinophil, Absolute 0.00 103/mcL Invalid Interpretation Code 0.00 - 0.40 10^3/mcL AO Auto Heme SS Eosinophils/100 WBC (Bld) 0.4 % Invalid Interpretation Code 0.0 - 7.0 % AO Auto Heme SS Erythrocyte distribution width (RBC) [Ratio] 12.7 % Invalid Interpretation Code 11.5 - 14.5 % AO Auto Heme SS Fibrin D-dimer DDU (PPP) [Mass/Vol] 2603 ng/mL D-DU Invalid Interpretation Code 0 - 230 ng/mL D-DU AO Coag SS Fibrinogen Coag (PPP) [Mass/Vol] 802 mg/dL Invalid Interpretation Code 334 - 713 mg/dL AO Coag SS Globulin 3.0 G/dL Invalid Interpretation Code AO ADM SS Glucose [Mass/Vol] 154 mg/dL Invalid Interpretation Code 83 - 110 mg/dL AO ADM SS Hematocrit (Bld) [Volume fraction] 38.5 % Invalid Interpretation Code 42.0 - 52.0 % AO Auto Heme SS Hemoglobin (Bld) [Mass/Vol] 13.8 G/dL Invalid Interpretation Code 14.0 - 18.0 G/dL AO Auto Heme SS INR Coag (PPP) [Relative time] 1.1 {INR} Invalid Interpretation Code 0.9 - 1.2 ratio AO Coag SS LDH [Catalytic activity/Vol] 329 U/L Invalid Interpretation Code 85 - 227 U/L AO ADM SS Lymphocyte, Absolute 0.60 103/mcL Invalid Interpretation Code 0.77 - 3.85 10^3/mcL AO Auto Heme SS Lymphocytes/100 WBC (Bld) 6.8 % Invalid Interpretation Code 10.0 - 50.0 % AO Auto Heme SS Magnesium [Mass/Vol] 2.3 mg/dL Invalid Interpretation Code 1.8 - 2.4 mg/dL AO ADM SS MCH (RBC) [Entitic mass] 30.2 pg Invalid Interpretation Code 27.0 - 31.2 pg AO Auto Heme SS MCHC (RBC) [Mass/Vol] 35.8 G/dL Invalid Interpretation Code 31.8 - 35.4 G/dL AO Auto Heme SS MCV (RBC) [Entitic vol] 84.2 fL Invalid Interpretation Code 80.0 - 94.0 fL AO Auto Heme SS Monocyte, Absolute 0.50 103/mcL Invalid Interpretation Code 0.15 - 1.00 10^3/mcL AO Auto Heme SS Monocytes/100 WBC (Bld) 6.0 % Invalid Interpretation Code 1.7 - 13.0 % AO Auto Heme SS Neutrophil, Absolute 7.80 103/mcL Invalid Interpretation Code 2.85 - 6.16 10^3/mcL AO Auto Heme SS Neutrophils/100 WBC (Bld) 86.7 % Invalid Interpretation Code 37.0 - 80.0 % AO Auto Heme SS Platelet mean volume (Bld) [Entitic vol] 6.6 fL Invalid Interpretation Code 7.4 - 10.4 fL AO Auto Heme SS Platelets (Bld) [#/Vol] 225 103/mcL Invalid Interpretation Code 130 - 400 10^3/mcL AO Auto Heme SS Potassium [Moles/Vol] 3.8 mmol/L Invalid Interpretation Code 3.5 - 5.1 mmol/L AO ADM SS Protein [Mass/Vol] 5.5 G/dL Invalid Interpretation Code 6.4 - 8.2 G/dL AO ADM SS PT Coag (PPP) [Time] 12.6 s Invalid Interpretation Code 9.7 - 14.3 seconds AO Coag SS RBC (Bld) [#/Vol] 4.57 106/mcL Invalid Interpretation Code 4.04 - 6.13 10^6/mcL AO Auto Heme SS Sodium [Moles/Vol] 136 mmol/L Invalid Interpretation Code 136 - 145 mmol/L AO ADM SS Troponin I.cardiac DL <= 0.01 ng/mL [Mass/Vol] 16.4 ng/L Invalid Interpretation Code 0.0 - 76.2 ng/L AO ADM SS Urea nitrogen [Mass/Vol] 13 mg/dL Invalid Interpretation Code 7 - 18 mg/dL AO ADM SS Urea nitrogen/Creatinine [Mass ratio] 15 ratio Invalid Interpretation Code 7 - 27 ratio AO ADM SS WBC (Bld) [#/Vol] 9.00 103/mcL Invalid Interpretation Code 4.60 - 10.80 10^3/mcL AO Auto Heme SS LABORATORYOrdered By: SYSTEM SYSTEM on 02-28-2021 Ferritin [Mass/Vol] 611.0 ng/mL Invalid Interpretation Code 26.0 - 388.0 ng/mL AH ADM SS GFR 103 ml/min/1.73sqm Invalid Interpretation Code AO Chemistry S GFR Non- 85 ml/min/1.73sqm Invalid Interpretation Code AO Chemistry S LDHon 02-28-2021 LDH 329 U/L High 85-227 [facility] ([place] Comment on above: Performed By: #### C BC, ADIFF, ANEU, GFR, CMP, PRO, LAC #### [address] [address] MGon 02-28-2021 Magnesium [Mass/Vol] 2.3 mg/dL Normal 1.8-2.4 [facility] ([place]) Comment on above: Performed By: #### C BC, ADIFF, ANEU, GFR, CMP, PRO, LAC #### [address] [address] MYCOon 02-28-2021 Mycoplasma IgG Positive Normal [facility] ([place]) Comment on above: Result Comment: INTE RPRETATION OF MYCOPLASMA BY EIA (Effective 04/07/04): Negative No detectable antibodies to M. pneumoniae. Indicates absence of current or previous infection. Positive Reactive for antibodies to M. pneumoniae. Indicates a past or recent infection. Equivocal Equivocal for antibodies to M. pneumoniae. Repeat testing by an alternate method suggested. Performed By: #### C BC, ADIFF, ANEU, GFR, CMP, PRO, LAC #### [address] [address] Mycoplasma IgM Negative Normal [facility] ([place]) Comment on above: Result Comment: INTE RPRETATION OF MYCOPLASMA BY EIA (Effective 04/07/04): Negative No detectable antibodies to M. pneumoniae. Indicates absence of current or previous infection. Positive Reactive for antibodies to M. pneumoniae. Indicates a past or recent infection. Equivocal Equivocal for antibodies to M. pneumoniae. Repeat testing by an alternate method suggested. Performed By: #### C BC, ADIFF, ANEU, GFR, CMP, PRO, LAC #### [place] [id number] PROon 02-28-2021 INR Coag (PPP) [Relative time] 1.1 {INR} Normal 0.9-1.2 [facility] ([place]) Comment on above: Result Comment: Miguel dard Dose 2.0 - 3.0 High Dose 2.5 - 3.5 The recommended therapeutic range for oral anticoagulant therapy is: LOW RISK: Prophylaxis of venous thrombosis INR: 2.0 - 3.0 Treatment of pulmonary embolism 2.0 - 3.0 Prevention of systemic embolism 2.0 - 3.0 HIGH RISK: Mechanical prosthetic valves 2.5 - 3.5 Performed By: #### C BC, ADIFF, ANEU, GFR, CMP, PRO, LAC #### [place] [address] PT Coag (PPP) [Time] 12.6 s Normal 9.7-14.3 [facility] ([place] Comment on above: Performed By: #### C BC, ADIFF, ANEU, GFR, CMP, PRO, LAC #### [address] [address] TROPHSon 02-28-2021 Troponin I High Sensitivity 16.4 ng/L Normal 0.0-76.2 [facility] ([place]) Comment on above: Performed By: #### C BC, ADIFF, ANEU, GFR, CMP, PRO, LAC #### [place] [address] .Auto Diffon 02-27-2021 Basophil, Absolute 0.00 10 3/mcL Normal 0.00-0.19 [facility] ([place]) Comment on above: Performed By: #### C BC, ADIFF, ANEU, GFR, CMP, PRO, LAC #### [address] [address] Basophils/100 WBC (Bld) 0.0 % Normal 0.0-2.5 [facility] ([place]) Comment on above: Performed By: #### C BC, ADIFF, ANEU, GFR, CMP, PRO, LAC #### [address] [address] Eosinophil, Absolute 0.00 10 3/mcL Normal 0.00-0.40 [facility] ([place]) Comment on above: Performed By: #### C BC, ADIFF, ANEU, GFR, CMP, PRO, LAC #### [address] [address] Eosinophils/100 WBC (Bld) 0.0 % Normal 0.0-7.0 [facility] ([place]) Comment on above: Performed By: #### C BC, ADIFF, ANEU, GFR, CMP, PRO, LAC #### [address] [address] Lymphocyte, Absolute 0.30 10 3/mcL Low 0.77-3.85 [facility] ([place]) Comment on above: Performed By: #### C BC, ADIFF, ANEU, GFR, CMP, PRO, LAC #### [address] [address] Lymphocytes/100 WBC (Bld) 2.9 % Low 10.0-50.0 [facility] ([place]) Comment on above: Performed By: #### C BC, ADIFF, ANEU, GFR, CMP, PRO, LAC #### [address] [address] Monocyte, Absolute 0.30 10 3/mcL Normal 0.15-1.00 [facility] ([place]) Comment on above: Performed By: #### C BC, ADIFF, ANEU, GFR, CMP, PRO, LAC #### [address] [address] Monocytes/100 WBC (Bld) 3.3 % Normal 1.7-13.0 [facility] ([place]) Comment on above: Performed By: #### C BC, ADIFF, ANEU, GFR, CMP, PRO, LAC #### [address] [address] Neutrophils/100 WBC (Bld) 93.8 % High 37.0-80.0 [facility] ([place]) Comment on above: Performed By: #### C BC, ADIFF, ANEU, GFR, CMP, PRO, LAC #### [address] [address] .GFRon 02-27-2021 GFR 95 ml/min/1.73sqm Normal [facility] ([place]) Comment on above: Result Comment: GFR Population mean for , Non- Americans Ages 20-29 = 116 mL/min/1.73 sq.m. Ages 30-39 = 107 mL/min/1.73 sq.m. Ages 40-49 = 99 mL/min/1.73 sq.m. Ages 50-59 = 93 mL/min/1.73 sq.m. Ages 60-69 = 85 mL/min/1.73 sq.m. Ages 70+ = 75 mL/min/1.73 sq.m. Chronic Kidney Disease: Less than 60 mL/min/1.73 square meters End Stage Renal Disease: Less than 15 mL/min/1.73 square meters Performed By: #### C BC, ADIFF, ANEU, GFR, CMP, PRO, LAC #### [address] [address] GFR Non- 78 ml/min/1.73sqm Normal [facility] ([place]) Comment on above: Result Comment: GFR Population mean for , Non- Americans Ages 20-29 = 116 mL/min/1.73 sq.m. Ages 30-39 = 107 mL/min/1.73 sq.m. Ages 40-49 = 99 mL/min/1.73 sq.m. Ages 50-59 = 93 mL/min/1.73 sq.m. Ages 60-69 = 85 mL/min/1.73 sq.m. Ages 70+ = 75 mL/min/1.73 sq.m. Chronic Kidney Disease: Less than 60 mL/min/1.73 square meters End Stage Renal Disease: Less than 15 mL/min/1.73 square meters Performed By: #### C BC, ADIFF, ANEU, GFR, CMP, PRO, LAC #### [address] [address] GFR 109 ml/min/1.73sqm Normal [facility] ([place]) Comment on above: Result Comment: GFR Population mean for , Non- Americans Ages 20-29 = 116 mL/min/1.73 sq.m. Ages 30-39 = 107 mL/min/1.73 sq.m. Ages 40-49 = 99 mL/min/1.73 sq.m. Ages 50-59 = 93 mL/min/1.73 sq.m. Ages 60-69 = 85 mL/min/1.73 sq.m. Ages 70+ = 75 mL/min/1.73 sq.m. Chronic Kidney Disease: Less than 60 mL/min/1.73 square meters End Stage Renal Disease: Less than 15 mL/min/1.73 square meters Performed By: #### C BC, ADIFF, ANEU, GFR, CMP, PRO, LAC #### [address] [address] GFR Non- 90 ml/min/1.73sqm [facility] ([place]) Comment on above: Result Comment: GFR Population mean for , Non- Americans Ages 20-29 = 116 mL/min/1.73 sq.m. Ages 30-39 = 107 mL/min/1.73 sq.m. Ages 40-49 = 99 mL/min/1.73 sq.m. Ages 50-59 = 93 mL/min/1.73 sq.m. Ages 60-69 = 85 mL/min/1.73 sq.m. Ages 70+ = 75 mL/min/1.73 sq.m. Chronic Kidney Disease: Less than 60 mL/min/1.73 square meters End Stage Renal Disease: Less than 15 mL/min/1.73 square meters Performed By: #### C BC, ADIFF, ANEU, GFR, CMP, PRO, LAC #### [address] [address] .NEUABSon 02-27-2021 Neutrophil, Absolute 8.90 10 3/mcL High 2.85-6.16 [facility] ([place]) Comment on above: Performed By: #### C BC, ADIFF, ANEU, GFR, CMP, PRO, LAC #### [address] [address] ABGon 02-27-2021 Base excess Calc (Bld) [Moles/Vol] -1.0000 mmol/L Normal -2.4-2.3 [facility] ([place]) Comment on above: Performed By: #### C BC, ADIFF, ANEU, GFR, CMP, PRO, LAC #### [place] [id number] CO2 [Moles/Vol] 23 mmol/L Normal 19-24 [facility] ([place]) Comment on above: Performed By: #### C BC, ADIFF, ANEU, GFR, CMP, PRO, LAC #### [address] [address] HCO3 (Bld) [Moles/Vol] 22.3 mmol/L Normal 22.0-26.0 [facility] ([place]) Comment on above: Performed By: #### C BC, ADIFF, ANEU, GFR, CMP, PRO, LAC #### [address] [address] Oxygen (Bld) [Partial pressure] 65.0 mm[Hg] Low 80.0-100.0 [facility] ([place]) Comment on above: Performed By: #### C BC, ADIFF, ANEU, GFR, CMP, PRO, LAC #### [address] [address] Oxygen saturation in Blood 94 % Low 95-98 [facility] ([place] Comment on above: Performed By: #### C BC, ADIFF, ANEU, GFR, CMP, PRO, LAC #### [address] [address] pCO2 29.4 mmHg Low 35.0-45.0 [facility] ([place] Comment on above: Performed By: #### C BC, ADIFF, ANEU, GFR, CMP, PRO, LAC #### [address] [address] pH (Bld) 7.49 [pH] High 7.35-7.45 [facility] ([place]) Comment on above: Performed By: #### C BC, ADIFF, ANEU, GFR, CMP, PRO, LAC #### [address] [address] BMPon 02-27-2021 BUN/Creatinine Ratio 14 ratio Normal 7-27 [facility] ([place]) Comment on above: Performed By: #### C BC, ADIFF, ANEU, GFR, CMP, PRO, LAC #### [address] [address] Calcium [Mass/Vol] 7.6 mg/dL Low 8.4-10.2 [facility] ([place]) Comment on above: Performed By: #### C BC, ADIFF, ANEU, GFR, CMP, PRO, LAC #### [address] [address] Chloride [Moles/Vol] 100 mmol/L Normal 98-107 [facility] ([place]) Comment on above: Performed By: #### C BC, ADIFF, ANEU, GFR, CMP, PRO, LAC #### [address] [address] CO2 [Moles/Vol] 22 mmol/L Low 23-31 [facility] ([place] Comment on above: Performed By: #### C BC, ADIFF, ANEU, GFR, CMP, PRO, LAC #### [address] [address] Creatinine [Mass/Vol] 0.95 mg/dL Normal 0.70-1.30 [facility] ([place]) Comment on above: Performed By: #### C BC, ADIFF, ANEU, GFR, CMP, PRO, LAC #### [address] [address] Electrolyte Balance 13.0 mEq/L Normal On license of [facility] ([place]) Comment on above: Performed By: #### C BC, ADIFF, ANEU, GFR, CMP, PRO, LAC #### [address] [address] Glucose [Mass/Vol] 225 mg/dL High 83-110 [facility] ([place]) Comment on above: Performed By: #### C BC, ADIFF, ANEU, GFR, CMP, PRO, LAC #### [address] [address] Potassium [Moles/Vol] 3.4 mmol/L Low 3.5-5.1 [facility] ([place]) Comment on above: Performed By: #### C BC, ADIFF, ANEU, GFR, CMP, PRO, LAC #### [address] [address] Sodium [Moles/Vol] 135 mmol/L Low 136-145 [facility] ([place]) Comment on above: Performed By: #### C BC, ADIFF, ANEU, GFR, CMP, PRO, LAC #### [address] [address] Urea nitrogen [Mass/Vol] 13 mg/dL Normal 7-18 [facility] ([place] Comment on above: Performed By: #### C BC, ADIFF, ANEU, GFR, CMP, PRO, LAC #### [address] [address] BUN/Creatinine Ratio 14 ratio Normal 7-27 [facility] ([place]) Comment on above: Performed By: #### C BC, ADIFF, ANEU, GFR, CMP, PRO, LAC #### [address] [address] Calcium [Mass/Vol] 7.2 mg/dL Low 8.4-10.2 [facility] ([place]) Comment on above: Performed By: #### C BC, ADIFF, ANEU, GFR, CMP, PRO, LAC #### [address] [address] Chloride [Moles/Vol] 100 mmol/L Normal 98-107 [facility] ([place]) Comment on above: Performed By: #### C BC, ADIFF, ANEU, GFR, CMP, PRO, LAC #### [address] [address] CO2 [Moles/Vol] 20 mmol/L Low 23-31 [facility] ([place] Comment on above: Performed By: #### C BC, ADIFF, ANEU, GFR, CMP, PRO, LAC #### [address] [address] Creatinine [Mass/Vol] 0.84 mg/dL Normal 0.70-1.30 [facility] ([place]) Comment on above: Performed By: #### C BC, ADIFF, ANEU, GFR, CMP, PRO, LAC #### [address] [address] Electrolyte Balance 14.0 mEq/L Normal On license of [facility] ([place]) Comment on above: Performed By: #### C BC, ADIFF, ANEU, GFR, CMP, PRO, LAC #### [address] [address] Glucose [Mass/Vol] 203 mg/dL High 83-110 [facility] ([place]) Comment on above: Performed By: #### C BC, ADIFF, ANEU, GFR, CMP, PRO, LAC #### [address] [address] Potassium [Moles/Vol] 3.4 mmol/L Low 3.5-5.1 [facility] ([place]) Comment on above: Performed By: #### C BC, ADIFF, ANEU, GFR, CMP, PRO, LAC #### [address] [address] Sodium [Moles/Vol] 134 mmol/L Low 136-145 [facility] ([place]) Comment on above: Performed By: #### C BC, ADIFF, ANEU, GFR, CMP, PRO, LAC #### [address] [address] Urea nitrogen [Mass/Vol] 12 mg/dL Normal 7-18 [facility] ([place] Comment on above: Performed By: #### C BC, ADIFF, ANEU, GFR, CMP, PRO, LAC #### [address] [address] CBCon 02-27-2021 Erythrocyte distribution width (RBC) [Ratio] 12.7 % Normal 11.5-14.5 [facility] ([place] Comment on above: Performed By: #### C BC, ADIFF, ANEU, GFR, CMP, PRO, LAC #### [address] [address] Hematocrit (Bld) [Volume fraction] 36.8 % Low 42.0-52.0 [facility] ([place]) Comment on above: Performed By: #### C BC, ADIFF, ANEU, GFR, CMP, PRO, LAC #### [place] [address] Hgb 13.3 G/dL Low 14.0-18.0 [facility] ([place]) Comment on above: Performed By: #### C BC, ADIFF, ANEU, GFR, CMP, PRO, LAC #### [address] [address] MCH (RBC) [Entitic mass] 30.2 pg Normal 27.0-31.2 [facility] ([place]) Comment on above: Performed By: #### C BC, ADIFF, ANEU, GFR, CMP, PRO, LAC #### [place] [address] MCHC 36.2 G/dL High 31.8-35.4 [facility] ([place]) Comment on above: Performed By: #### C BC, ADIFF, ANEU, GFR, CMP, PRO, LAC #### [place] [phone] MCV (RBC) [Entitic vol] 83.5 fL Normal 80.0-94.0 [facility] ([place]) Comment on above: Performed By: #### C BC, ADIFF, ANEU, GFR, CMP, PRO, LAC #### [address] [address] Platelet 228 10 3/mcL Normal 130-400 [facility] ([place]) Comment on above: Performed By: #### C BC, ADIFF, ANEU, GFR, CMP, PRO, LAC #### [address] [address] Platelet mean volume (Bld) [Entitic vol] 6.7 fL Low 7.4-10.4 [facility] ([place] Comment on above: Performed By: #### C BC, ADIFF, ANEU, GFR, CMP, PRO, LAC #### [address] [address] RBC 4.40 10 6/mcL Normal 4.04-6.13 [facility] ([place] Comment on above: Performed By: #### C BC, ADIFF, ANEU, GFR, CMP, PRO, LAC #### [address] [address] WBC 9.50 10 3/mcL Normal 4.60-10.80 [facility] ([place]) Comment on above: Performed By: #### C BC, ADIFF, ANEU, GFR, CMP, PRO, LAC #### [address] [address] CRPon 02-27-2021 CRP [Mass/Vol] mg/L High 0.0-0.9 [facility] ([place]) Comment on above: Performed By: #### C BC, ADIFF, ANEU, GFR, CMP, PRO, LAC #### [address] [address] Kristina 02-27-2021 Ferritin [Mass/Vol] 489.0 ng/mL High 26.0-388.0 [facility] ([place] Comment on above: Performed By: #### C BC, ADIFF, ANEU, GFR, CMP, PRO, LAC #### [address] [address] FIBon 02-27-2021 Fibrinogen 884 mg/dL High 334-713 [facility] ([place]) Comment on above: Performed By: #### C BC, ADIFF, ANEU, GFR, CMP, PRO, LAC #### [place] [address] LABORATORYOrdered By: Jaylene Gaffney on 02-27-2021 Natriuretic peptide.B prohormone N-Terminal [Mass/Vol] 1235 pg/mL Invalid Interpretation Code 0 - 125 pg/mL AO ADM SS Calcium [Mass/Vol] 7.6 mg/dL Invalid Interpretation Code 8.4 - 10.2 mg/dL AO ADM SS Chloride [Moles/Vol] 100 mmol/L Invalid Interpretation Code 98 - 107 mmol/L AO ADM SS CO2 [Moles/Vol] 22 mmol/L Invalid Interpretation Code 23 - 31 mmol/L AO ADM SS Creatinine [Mass/Vol] 0.95 mg/dL Invalid Interpretation Code 0.70 - 1.30 mg/dL AO ADM SS Electrolyte Balance 13.0 mEq/L Invalid Interpretation Code AO ADM SS Glucose [Mass/Vol] 225 mg/dL Invalid Interpretation Code 83 - 110 mg/dL AO ADM SS Potassium [Moles/Vol] 3.4 mmol/L Invalid Interpretation Code 3.5 - 5.1 mmol/L AO ADM SS Sodium [Moles/Vol] 135 mmol/L Invalid Interpretation Code 136 - 145 mmol/L AO ADM SS Urea nitrogen [Mass/Vol] 13 mg/dL Invalid Interpretation Code 7 - 18 mg/dL AO ADM SS Urea nitrogen/Creatinine [Mass ratio] 14 ratio Invalid Interpretation Code 7 - 27 ratio AO ADM SS Base excess Calc (Bld) [Moles/Vol] -1.0000 mmol/L Invalid Interpretation Code -2.4 - 2.3 mmol/L AO Blood Gas SS CO2 (Bld) [Partial pressure] 29.4 mm[Hg] Invalid Interpretation Code 35.0 - 45.0 mm Hg AO Blood Gas SS CO2 [Moles/Vol] 23 mmol/L Invalid Interpretation Code 19 - 24 mmol/L AO Blood Gas SS HCO3 (Bld) [Moles/Vol] 22.3 mmol/L Invalid Interpretation Code 22.0 - 26.0 mmol/L AO Blood Gas SS Oxygen (Bld) [Partial pressure] 65.0 mm[Hg] Invalid Interpretation Code 80.0 - 100.0 mm Hg AO Blood Gas SS pH (Bld) 7.49 [pH] Invalid Interpretation Code 7.35 - 7.45 AO Blood Gas SS Basophil, Absolute 0.00 103/mcL Invalid Interpretation Code 0.00 - 0.19 10^3/mcL AO Auto Heme SS Basophils/100 WBC (Bld) 0.0 % Invalid Interpretation Code 0.0 - 2.5 % AO Auto Heme SS C-Reactive Protein mg/dL Invalid Interpretation Code 0.0 - 0.9 mg/dL AO Chemistry S Eosinophil, Absolute 0.00 103/mcL Invalid Interpretation Code 0.00 - 0.40 10^3/mcL AO Auto Heme SS Eosinophils/100 WBC (Bld) 0.0 % Invalid Interpretation Code 0.0 - 7.0 % AO Auto Heme SS Erythrocyte distribution width (RBC) [Ratio] 12.7 % Invalid Interpretation Code 11.5 - 14.5 % AO Auto Heme SS Fibrinogen Coag (PPP) [Mass/Vol] 884 mg/dL Invalid Interpretation Code 334 - 713 mg/dL AO Coag SS Hematocrit (Bld) [Volume fraction] 36.8 % Invalid Interpretation Code 42.0 - 52.0 % AO Auto Heme SS Hemoglobin (Bld) [Mass/Vol] 13.3 G/dL Invalid Interpretation Code 14.0 - 18.0 G/dL AO Auto Heme SS INR Coag (PPP) [Relative time] 1.2 {INR} Invalid Interpretation Code 0.9 - 1.2 ratio AO Coag SS LDH [Catalytic activity/Vol] 379 U/L Invalid Interpretation Code 85 - 227 U/L AO ADM SS Lymphocyte, Absolute 0.30 103/mcL Invalid Interpretation Code 0.77 - 3.85 10^3/mcL AO Auto Heme SS Lymphocytes/100 WBC (Bld) 2.9 % Invalid Interpretation Code 10.0 - 50.0 % AO Auto Heme SS Magnesium [Mass/Vol] 1.7 mg/dL Invalid Interpretation Code 1.8 - 2.4 mg/dL AO ADM SS MCH (RBC) [Entitic mass] 30.2 pg Invalid Interpretation Code 27.0 - 31.2 pg AO Auto Heme SS MCHC (RBC) [Mass/Vol] 36.2 G/dL Invalid Interpretation Code 31.8 - 35.4 G/dL AO Auto Heme SS MCV (RBC) [Entitic vol] 83.5 fL Invalid Interpretation Code 80.0 - 94.0 fL AO Auto Heme SS Monocyte, Absolute 0.30 103/mcL Invalid Interpretation Code 0.15 - 1.00 10^3/mcL AO Auto Heme SS Monocytes/100 WBC (Bld) 3.3 % Invalid Interpretation Code 1.7 - 13.0 % AO Auto Heme SS Neutrophil, Absolute 8.90 103/mcL Invalid Interpretation Code 2.85 - 6.16 10^3/mcL AO Auto Heme SS Neutrophils/100 WBC (Bld) 93.8 % Invalid Interpretation Code 37.0 - 80.0 % AO Auto Heme SS Platelet mean volume (Bld) [Entitic vol] 6.7 fL Invalid Interpretation Code 7.4 - 10.4 fL AO Auto Heme SS Platelets (Bld) [#/Vol] 228 103/mcL Invalid Interpretation Code 130 - 400 10^3/mcL AO Auto Heme SS PT Coag (PPP) [Time] 13.3 s Invalid Interpretation Code 9.7 - 14.3 seconds AO Coag SS RBC (Bld) [#/Vol] 4.40 106/mcL Invalid Interpretation Code 4.04 - 6.13 10^6/mcL AO Auto Heme SS WBC (Bld) [#/Vol] 9.50 103/mcL Invalid Interpretation Code 4.60 - 10.80 10^3/mcL AO Auto Heme SS LABORATORYOrdered By: SYSTEM SYSTEM on 02-27-2021 GFR 95 ml/min/1.73sqm Invalid Interpretation Code AO Chemistry S GFR Non- 78 ml/min/1.73sqm Invalid Interpretation Code AO Chemistry S Ferritin [Mass/Vol] 489.0 ng/mL Invalid Interpretation Code 26.0 - 388.0 ng/mL AH ADM SS LABORATORYOrdered By: Caitlin Crowley on 02-27-2021 Lactate [Moles/Vol] 1.5 mmol/L Invalid Interpretation Code 0.4 - 2.0 mmol/L AO ADM SS Troponin I.cardiac DL <= 0.01 ng/mL [Mass/Vol] 34.3 ng/L Invalid Interpretation Code 0.0 - 76.2 ng/L AO ADM SS Lactate [Moles/Vol] 2.7 mmol/L Invalid Interpretation Code 0.4 - 2.0 mmol/L AO ADM SS LABORATORYOrdered By: Titi Benavidez on 02-27-2021 M. pneumoniae IgM IA Ql (S) Negative (02/27/21 5:36 AM) Invalid Interpretation Code Man Viro/Sero SS LABORATORYOrdered By: Chato Santoyo on 02-27-2021 Mycoplasma IgG Positive Invalid Interpretation Code AH Auto Viro/Sero SS LACon 02-27-2021 Lactic Acid Lvl 1.5 mmol/L Normal 0.4-2.0 [facility] ([place] Comment on above: Performed By: #### C BC, ADIFF, ANEU, GFR, CMP, PRO, LAC #### [address] [address] Lactic Acid Lvl 2.7 mmol/L High 0.4-2.0 [facility] ([place]) Comment on above: Performed By: #### C BC, ADIFF, ANEU, GFR, CMP, PRO, LAC #### [address] [address] LDHon 02-27-2021 LDH 379 U/L High 85-227 [facility] ([place]) Comment on above: Performed By: #### C BC, ADIFF, ANEU, GFR, CMP, PRO, LAC #### [address] [address] MGon 02-27-2021 Magnesium [Mass/Vol] 1.7 mg/dL Low 1.8-2.4 [facility] ([place]) Comment on above: Performed By: #### C BC, ADIFF, ANEU, GFR, CMP, PRO, LAC #### [address] [address] No Panel Informationon 02-27 Legionella Urine Ag Presumptive negative for L. pneumophila serogroup 1 antigen in urine, suggesting no recent or current infection. Legionnaire's disease cannot be ruled out since other serogroups and species may also cause disease. [facility] Work Phone: Streptococcus Pneumoniae Urine Antig Presumptive negative for pneumococcal pneumonia, suggesting no current or recent pneumococcal infection. Infection due to Strep pneumoniae cannot be ruled out since the antigen present in the sample may be below the detection limit of the test. [facility] Work Phone: Comment on above: This test has not be en evaluated on patients taking antibiotics for greater than 24 hours or on patients who have recently completed an antibiotic regimen. The accuracy of this test has not been proven in young children. PBNPon 02-27-2021 Natriuretic peptide B (Bld) [Mass/Vol] 1235 pg/mL High 0-125 [facility] ([place]) Comment on above: Result Comment: NT-p roBNP results of less than 300 pg/mL effectively rules out acute congestive heart failure with 99% negative predictive value. Performed By: #### C BC, ADIFF, ANEU, GFR, CMP, PRO, LAC #### [place] [phone] PROon 02-27-2021 INR Coag (PPP) [Relative time] 1.2 {INR} Normal 0.9-1.2 [facility] ([place]) Comment on above: Result Comment: Miguel dard Dose 2.0 - 3.0 High Dose 2.5 - 3.5 The recommended therapeutic range for oral anticoagulant therapy is: LOW RISK: Prophylaxis of venous thrombosis INR: 2.0 - 3.0 Treatment of pulmonary embolism 2.0 - 3.0 Prevention of systemic embolism 2.0 - 3.0 HIGH RISK: Mechanical prosthetic valves 2.5 - 3.5 Performed By: #### C BC, ADIFF, ANEU, GFR, CMP, PRO, LAC #### [place] [address] PT Coag (PPP) [Time] 13.3 s Normal 9.7-14.3 [facility] ([place]) Comment on above: Performed By: #### C BC, ADIFF, ANEU, GFR, CMP, PRO, LAC #### [address] [address] TROPHSon 02-27-2021 Troponin I High Sensitivity 34.3 ng/L Normal 0.0-76.2 [facility] ([place] Comment on above: Performed By: #### C BC, ADIFF, ANEU, GFR, CMP, PRO, LAC #### [address] [address] .Auto Diffon 02-26-2021 Basophil, Absolute 0.00 10 3/mcL Normal 0.00-0.19 [facility] ([place]) Comment on above: Performed By: #### C BC, ADIFF, ANEU, GFR, CMP, PRO, LAC #### [address] [address] Basophils/100 WBC (Bld) 0.1 % Normal 0.0-2.5 [facility] ([place]) Comment on above: Performed By: #### C BC, ADIFF, ANEU, GFR, CMP, PRO, LAC #### [address] [address] Eosinophil, Absolute 0.00 10 3/mcL Normal 0.00-0.40 [facility] ([place]) Comment on above: Performed By: #### C BC, ADIFF, ANEU, GFR, CMP, PRO, LAC #### [address] [address] Eosinophils/100 WBC (Bld) 0.0 % Normal 0.0-7.0 [facility] ([place] Comment on above: Performed By: #### C BC, ADIFF, ANEU, GFR, CMP, PRO, LAC #### [address] [address] Lymphocyte, Absolute 0.30 10 3/mcL Low 0.77-3.85 [facility] ([place]) Comment on above: Performed By: #### C BC, ADIFF, ANEU, GFR, CMP, PRO, LAC #### [address] [address] Lymphocytes/100 WBC (Bld) 2.8 % Low 10.0-50.0 [facility] ([place] Comment on above: Performed By: #### C BC, ADIFF, ANEU, GFR, CMP, PRO, LAC #### [address] [address] Monocyte, Absolute 0.50 10 3/mcL Normal 0.15-1.00 [facility] ([place]) Comment on above: Performed By: #### C BC, ADIFF, ANEU, GFR, CMP, PRO, LAC #### [address] [address] Monocytes/100 WBC (Bld) 5.1 % Normal 1.7-13.0 [facility] ([place]) Comment on above: Performed By: #### C BC, ADIFF, ANEU, GFR, CMP, PRO, LAC #### [address] [address] Neutrophils/100 WBC (Bld) 92.0 % High 37.0-80.0 [facility] ([place]) Comment on above: Performed By: #### C BC, ADIFF, ANEU, GFR, CMP, PRO, LAC #### [address] [address] .GFRon 02-26-2021 GFR 74 ml/min/1.73sqm Normal [facility] ([place]) Comment on above: Result Comment: GFR Population mean for , Non- Americans Ages 20-29 = 116 mL/min/1.73 sq.m. Ages 30-39 = 107 mL/min/1.73 sq.m. Ages 40-49 = 99 mL/min/1.73 sq.m. Ages 50-59 = 93 mL/min/1.73 sq.m. Ages 60-69 = 85 mL/min/1.73 sq.m. Ages 70+ = 75 mL/min/1.73 sq.m. Chronic Kidney Disease: Less than 60 mL/min/1.73 square meters End Stage Renal Disease: Less than 15 mL/min/1.73 square meters Performed By: #### C BC, ADIFF, ANEU, GFR, CMP, PRO, LAC #### [place] [id number] [place], [place] [address] GFR Non- 61 ml/min/1.73sqm Normal [facility] ([place] Comment on above: Result Comment: GFR Population mean for , Non- Americans Ages 20-29 = 116 mL/min/1.73 sq.m. Ages 30-39 = 107 mL/min/1.73 sq.m. Ages 40-49 = 99 mL/min/1.73 sq.m. Ages 50-59 = 93 mL/min/1.73 sq.m. Ages 60-69 = 85 mL/min/1.73 sq.m. Ages 70+ = 75 mL/min/1.73 sq.m. Chronic Kidney Disease: Less than 60 mL/min/1.73 square meters End Stage Renal Disease: Less than 15 mL/min/1.73 square meters Performed By: #### C BC, ADIFF, ANEU, GFR, CMP, PRO, LAC #### [place] [id number] .NEUABSon 02-26-2021 Neutrophil, Absolute 9.80 10 3/mcL High 2.85-6.16 [facility] ([place]) Comment on above: Performed By: #### C BC, ADIFF, ANEU, GFR, CMP, PRO, LAC #### [place] [address] .Urinalysis Microscopic (AO) on 02-26-2021 UA RBC 0-5 Abnormal None Seen [facility] ([place] Comment on above: Performed By: #### C BC, ADIFF, ANEU, GFR, CMP, PRO, LAC #### [place] [id number] UA Squam Epithelial None Seen Normal None Seen On license of [facility] ([place]) Comment on above: Performed By: #### C BC, ADIFF, ANEU, GFR, CMP, PRO, LAC #### [place] [id number] UA Transitional Epithelial 0-5 Abnormal [facility] ([place]) Comment on above: Performed By: #### C BC, ADIFF, ANEU, GFR, CMP, PRO, LAC #### [place] [id number] UA WBC 0-5 Abnormal None Seen [facility] ([place]) Comment on above: Performed By: #### C BC, ADIFF, ANEU, GFR, CMP, PRO, LAC #### [place] [id number] CBCon 02-26-2021 Erythrocyte distribution width (RBC) [Ratio] 12.7 % Normal 11.5-14.5 [facility] ([place] Comment on above: Performed By: #### C BC, ADIFF, ANEU, GFR, CMP, PRO, LAC #### [address] [address] Hematocrit (Bld) [Volume fraction] 44.8 % Normal 42.0-52.0 [facility] ([place] Comment on above: Performed By: #### C BC, ADIFF, ANEU, GFR, CMP, PRO, LAC #### [address] [address] Hgb 15.8 G/dL Normal 14.0-18.0 [facility] ([place] Comment on above: Performed By: #### C BC, ADIFF, ANEU, GFR, CMP, PRO, LAC #### [address] [address] MCH (RBC) [Entitic mass] 29.9 pg Normal 27.0-31.2 [facility] ([place] Comment on above: Performed By: #### C BC, ADIFF, ANEU, GFR, CMP, PRO, LAC #### [address] [address] MCHC 35.3 G/dL Normal 31.8-35.4 [facility] ([place] Comment on above: Performed By: #### C BC, ADIFF, ANEU, GFR, CMP, PRO, LAC #### [address] [address] MCV (RBC) [Entitic vol] 84.6 fL Normal 80.0-94.0 A [facility] ([place]) Comment on above: Performed By: #### C BC, ADIFF, ANEU, GFR, CMP, PRO, LAC #### [address] [address] Platelet 269 10 3/mcL Normal 130-400 [facility] ([place] Comment on above: Performed By: #### C BC, ADIFF, ANEU, GFR, CMP, PRO, LAC #### [address] [address] Platelet mean volume (Bld) [Entitic vol] 6.7 fL Low 7.4-10.4 [facility] ([place] Comment on above: Performed By: #### C BC, ADIFF, ANEU, GFR, CMP, PRO, LAC #### [address] [address] RBC 5.30 10 6/mcL Normal 4.04-6.13 [facility] ([place] Comment on above: Performed By: #### C BC, ADIFF, ANEU, GFR, CMP, PRO, LAC #### [address] [address] WBC 10.70 10 3/mcL Normal 4.60-10.80 [facility] ([place] Comment on above: Performed By: #### C BC, ADIFF, ANEU, GFR, CMP, PRO, LAC #### [address] [address] CMPon 02-26-2021 Albumin Level 3.0 G/dL Low 3.4-4.8 [facility] ([place] Comment on above: Performed By: #### C BC, ADIFF, ANEU, GFR, CMP, PRO, LAC #### [address] [address] Albumin/Globulin [Mass ratio] 0.9 {ratio} Low 1.1-2.5 [facility] ([place] Comment on above: Performed By: #### C BC, ADIFF, ANEU, GFR, CMP, PRO, LAC #### [address] [address] ALP [Catalytic activity/Vol] 93 U/L Normal 40-135 [facility] ([place] Comment on above: Performed By: #### C BC, ADIFF, ANEU, GFR, CMP, PRO, LAC #### [address] [address] ALT [Catalytic activity/Vol] 63 U/L Normal 16-63 [facility] ([place] Comment on above: Performed By: #### C BC, ADIFF, ANEU, GFR, CMP, PRO, LAC #### [address] [address] AST [Catalytic activity/Vol] 37 U/L Normal 10-40 [facility] ([place] Comment on above: Performed By: #### C BC, ADIFF, ANEU, GFR, CMP, PRO, LAC #### [address] [address] Bili Total 2.0 mg/dL High 0.2-1.0 [facility] ([place] Comment on above: Result Comment: Use of this assay is not recommended for patients undergoing treatment with eltrombopag due to the potential for falsely elevated results. Performed By: #### C BC, ADIFF, ANEU, GFR, CMP, PRO, LAC #### [address] [address] BUN/Creatinine Ratio 12 ratio Normal 7-27 [facility] ([place] Comment on above: Performed By: #### C BC, ADIFF, ANEU, GFR, CMP, PRO, LAC #### [address] [address] Calcium [Mass/Vol] 8.2 mg/dL Low 8.4-10.2 [facility] ([place]) Comment on above: Performed By: #### C BC, ADIFF, ANEU, GFR, CMP, PRO, LAC #### [address] [address] Chloride [Moles/Vol] 96 mmol/L Low 98-107 [facility] ([place] Comment on above: Performed By: #### C BC, ADIFF, ANEU, GFR, CMP, PRO, LAC #### [address] [address] CO2 [Moles/Vol] 22 mmol/L Low 23-31 [facility] ([place] Comment on above: Performed By: #### C BC, ADIFF, ANEU, GFR, CMP, PRO, LAC #### [address] [address] Electrolyte Balance 16.0 mEq/L Normal On license of [facility] ([place]) Comment on above: Performed By: #### C BC, ADIFF, ANEU, GFR, CMP, PRO, LAC #### [address] [address] Globulin 3.3 G/dL Normal [facility] ([place] Comment on above: Performed By: #### C BC, ADIFF, ANEU, GFR, CMP, PRO, LAC #### [address] [address] Glucose [Mass/Vol] 253 mg/dL High 83-110 [facility] ([place] Comment on above: Performed By: #### C BC, ADIFF, ANEU, GFR, CMP, PRO, LAC #### [address] [address] Potassium [Moles/Vol] 3.5 mmol/L Normal 3.5-5.1 [facility] ([place]) Comment on above: Performed By: #### C BC, ADIFF, ANEU, GFR, CMP, PRO, LAC #### [address] [address] Sodium [Moles/Vol] 134 mmol/L Low 136-145 [facility] ([place] Comment on above: Performed By: #### C BC, ADIFF, ANEU, GFR, CMP, PRO, LAC #### [address] [address] Total Protein 6.3 G/dL Low 6.4-8.2 [facility] ([place] Comment on above: Performed By: #### C BC, ADIFF, ANEU, GFR, CMP, PRO, LAC #### [address] [address] Urea nitrogen [Mass/Vol] 14 mg/dL Normal 7-18 [facility] ([place] Comment on above: Performed By: #### C BC, ADIFF, ANEU, GFR, CMP, PRO, LAC #### [address] [address] Creatinine [Mass/Vol] 1.17 mg/dL Normal 0.70-1.30 [facility] ([place]) Comment on above: Performed By: #### C BC, ADIFF, ANEU, GFR, CMP, PRO, LAC #### [address] [address] [address] ANGIOGRAPHY CHEST W/CONTR Angel 02-26-2021 CT ANGIOGRAPHY CHEST W/CONTRAST ORIGINAL EXAMINATION: CTA OF THE CHEST 02/26/2021 6:44 pm TECHNIQUE: CTA of the chest was performed after the administration of intravenous contrast. Multiplanar reformatted images are provided for review. MIP images are provided for review. Dose modulation, iterative reconstruction, and/or weight based adjustment of the mA/kV was utilized to reduce the radiation dose to as low as reasonably achievable. COMPARISON: None. HISTORY: ORDERING SYSTEM PROVIDED HISTORY: Reason for Exam: chest pain; suspect PE FINDINGS: Diffuse bilateral ground-glass infiltrates. Suboptimal opacification of the pulmonary arteries, no large central pulmonary embolus. No large effusion. No evidence of a pneumothorax. Aorta is normal in caliber. Pulmonary arteries are mildly dilated. Trachea and esophagus are normal in caliber. No lymphadenopathy. Visualized osseous structures are intact. IMPRESSION: No definite evidence of an acute pulmonary embolism, however there is suboptimal opacification of the pulmonary arteries. Diffuse infiltrates throughout the lungs bilaterally consistent with multifocal pneumonia. Mildly dilated pulmonary arteries could be seen in the setting of pulmonary arterial hypertension. Interpreted by: Kalia Engle MD Preliminary Report By: Kalia Engle MD Electronically signed By Kalia Engle MD Dictated Date: 02/26/2021 7:16:28 PM Prelim Date: 02/26/2021 7:19:29 PM Sign Date: 02/26/2021 7:19:29 PM Ordering Provider: JACKSON NOVA [facility] ([place]) CT HEAD OR BRAIN W/O CONTRAS Ton 02-26-2021 CT HEAD OR BRAIN W/O CONTRAST ORIGINAL EXAMINATION: CT OF THE HEAD WITHOUT CONTRAST 02/26/2021 6:41 pm TECHNIQUE: CT of the head was performed without the administration of intravenous contrast. Dose modulation, iterative reconstruction, and/or weight based adjustment of the mA/kV was utilized to reduce the radiation dose to as low as reasonably achievable. COMPARISON: None. HISTORY: ORDERING SYSTEM PROVIDED HISTORY: Reason for Exam: fall FINDINGS: BRAIN/VENTRICLES: There is no acute intracranial hemorrhage, mass effect or midline shift. No abnormal extra-axial fluid collection. The james-white differentiation is maintained without evidence of an acute infarct. There is no evidence of hydrocephalus. There is mild to moderate cerebral volume loss. Scattered hypodensities throughout the periventricular white matter are nonspecific however are most consistent with chronic small vessel angiopathy. ORBITS: The visualized portion of the orbits demonstrate no acute abnormality. SINUSES: Mucosal thickening of the ethmoid sinus is noted. Small mastoid effusions are present bilaterally. SOFT TISSUES/SKULL: No acute abnormality of the visualized skull or soft tissues. IMPRESSION: No acute intracranial abnormality. Small bilateral mastoid effusions and mucosal thickening within the ethmoid sinus. Interpreted by: Kalia Engle MD Preliminary Report By: Kalia Engle MD Electronically signed By Kalia Engle MD Dictated Date: 02/26/2021 7:08:14 PM Prelim Date: 02/26/2021 7:11:51 PM Sign Date: 02/26/2021 7:11:51 PM Ordering Provider: [facility] CT SPINE CERVICAL W/O CONTRA STon 02-26-2021 CT SPINE CERVICAL W/O CONTRAST ORIGINAL EXAMINATION: CT OF THE CERVICAL SPINE WITHOUT CONTRAST 02/26/2021 6:41 pm TECHNIQUE: CT of the cervical spine was performed without the administration of intravenous contrast. Multiplanar reformatted images are provided for review. Dose modulation, iterative reconstruction, and/or weight based adjustment of the mA/kV was utilized to reduce the radiation dose to as low as reasonably achievable. COMPARISON: None. HISTORY: ORDERING SYSTEM PROVIDED HISTORY: Reason for Exam: fall FINDINGS: BONES/ALIGNMENT: There is no acute fracture or traumatic malalignment. DEGENERATIVE CHANGES: Mild degenerative changes throughout the cervical spine. SOFT TISSUES: There is no prevertebral soft tissue swelling. Redemonstration of small bilateral mastoid effusions. IMPRESSION: No acute abnormality of the cervical spine. Interpreted by: Kalia Engle MD Preliminary Report By: Kalia Engle MD Electronically signed By Kalia Engle MD Dictated Date: 02/26/2021 7:11:59 PM Prelim Date: 02/26/2021 7:13:03 PM Sign Date: 02/26/2021 7:13:03 PM Ordering Provider: [facility] LABORATORYOrdered By: Caitlin Crowley on 02-26-2021 Lactate [Moles/Vol] 3.5 mmol/L Invalid Interpretation Code 0.4 - 2.0 mmol/L AO ADM SS LABORATORYOrdered By: Jayleen Gaffney on 02-26-2021 Albumin BCP dye [Mass/Vol] 3.0 G/dL Invalid Interpretation Code 3.4 - 4.8 G/dL AO ADM SS Albumin/Globulin [Mass ratio] 0.9 {ratio} Invalid Interpretation Code 1.1 - 2.5 ratio AO ADM SS ALP [Catalytic activity/Vol] 93 U/L Invalid Interpretation Code 40 - 135 U/L AO ADM SS ALT With P-5'-P [Catalytic activity/Vol] 63 U/L Invalid Interpretation Code 16 - 63 U/L AO ADM SS Appearance (U) Clear (02/26/21 5:20 PM) Invalid Interpretation Code Clear AO Auto Urine SS AST With P-5'-P [Catalytic activity/Vol] 37 U/L Invalid Interpretation Code 10 - 40 U/L AO ADM SS Bilirubin [Mass/Vol] 2.0 mg/dL Invalid Interpretation Code 0.2 - 1.0 mg/dL AO ADM SS Bilirubin Ql (U) Negative (02/26/21 5:20 PM) Invalid Interpretation Code Negative AO Auto Urine SS Color (U) Yellow (02/26/21 5:20 PM) Invalid Interpretation Code AO Auto Urine SS Globulin 3.3 G/dL Invalid Interpretation Code AO ADM SS Glucose Test strip (U) [Mass/Vol] 100 mg/dL Invalid Interpretation Code Negativemg /dL AO Auto Urine SS Hemoglobin Auto test strip (U) [Mass/Vol] Trace *ABN* (02/26/21 5:20 PM) Invalid Interpretation Code Negative AO Auto Urine SS Ketones Ql (U) Negative Invalid Interpretation Code Negativemg /dL AO Auto Urine SS Natriuretic peptide.B prohormone N-Terminal [Mass/Vol] 553 pg/mL Invalid Interpretation Code 0 - 125 pg/mL AO ADM SS Protein [Mass/Vol] 6.3 G/dL Invalid Interpretation Code 6.4 - 8.2 G/dL AO ADM SS UA Leuk Est Negative (02/26/21 5:20 PM) Invalid Interpretation Code Negative AO Auto Urine SS UA Nitrite Negative (02/26/21 5:20 PM) Invalid Interpretation Code Negative AO Auto Urine SS UA pH 5.5 (02/26/21 5:20 PM) Invalid Interpretation Code 5.0 - 8.0 AO Auto Urine SS UA Protein 30 mg/dL Invalid Interpretation Code Negativemg /dL AO Auto Urine SS UA RBC 0-5 /HPF Invalid Interpretation Code None Seen/HPF AO Auto Urine SS UA Spec Grav 1.025 (02/26/21 5:20 PM) Invalid Interpretation Code 1.015-1.02 5 AO Auto Urine SS UA Specimen Type Clean Catch (02/26/21 5:20 PM) Invalid Interpretation Code AO Auto Urine SS UA Squam Epithelial None Seen /HPF Invalid Interpretation Code None Seen/HPF AO Auto Urine SS UA Transitional Epithelial 0-5 /HPF Invalid Interpretation Code AO Auto Urine SS UA Urobilinogen 0.2 E.U./dL Invalid Interpretation Code 0.2-1.0E.U ./dL AO Auto Urine SS WBC LM.HPF (Urine sed) [#/Area] 0-5 /HPF Invalid Interpretation Code None Seen/HPF AO Auto Urine SS LACon 02-26-2021 Lactic Acid Lvl 3.5 mmol/L High 0.4-2.0 [facility] ([place]) Comment [place]: Order Comment: Order ed secondary to Lactic Acid result greater than or equal to 2.0 Performed By: #### C BC, ADIFF, ANEU, GFR, CMP, PRO, LAC #### [id number] [place], [place] [address] Lactic Acid Lvl 5.1 mmol/L High 0.4-2.0 [facility] ([place]) Comment on above: Performed By: #### C BC, ADIFF, ANEU, GFR, CMP, PRO, LAC #### [id number] [place], [place] [address] No Panel Informationon 02-26 Microscopic examination of blood, culture Culture has been received in lab and is no growth to date. Routine cultures are held for 5 days. [facility] Work Phone: PBNPon 02-26-2021 Natriuretic peptide B (Bld) [Mass/Vol] 553 pg/mL High 0-125 [facility] ([place] Comment on above: Result Comment: NT-p roBNP results of less than 300 pg/mL effectively rules out acute congestive heart failure with 99% negative predictive value. Performed By: #### T RICARDO PBNP #### [address] [address] PROon 02-26-2021 INR Coag (PPP) [Relative time] 1.0 {INR} Normal 0.9-1.2 [facility] ([place]) Comment on above: Result Comment: Miguel mccracken Dose 2.0 - 3.0 High Dose 2.5 - 3.5 The recommended therapeutic range for oral anticoagulant therapy is: LOW RISK: Prophylaxis of venous thrombosis INR: 2.0 - 3.0 Treatment of pulmonary embolism 2.0 - 3.0 Prevention of systemic embolism 2.0 - 3.0 HIGH RISK: Mechanical prosthetic valves 2.5 - 3.5 Performed By: #### C BC, ADIFF, ANEU, GFR, CMP, PRO, LAC #### [address] [address] PT Coag (PPP) [Time] 12.0 s Normal 9.7-14.3 [facility] ([place]) Comment on above: Performed By: #### C BC, ADIFF, ANEU, GFR, CMP, PRO, LAC #### [address] [address] TROPHSon 02-26-2021 Troponin I High Sensitivity 22.0 ng/L Normal 0.0-76.2 [facility] ([place] Comment [place] above: Performed By: #### T ARLENE GOLDEN #### [address] [address] UAon 02-26-2021 Color (U) Yellow Normal [facility] ([place] Comment on above: Performed By: #### U A, UAMICAO #### [address] [address] Glucose (U) [Mass/Vol] 100 mg/dL Abnormal Negative [facility] ([place]) Comment on above: Performed By: #### U A, UAMICAO #### [address] [address] Ketones Ql (U) Negative Normal Negative [facility] ([place] Comment on above: Performed By: #### U A, UAMICAO #### [address] [address] UA Appear Clear Normal Clear [facility] ([place] Comment on above: Performed By: #### U A, UAMICAO #### [address] [address] UA Blood Trace Abnormal Negative [facility] ([place] Comment on above: Performed By: #### U A, UAMICAO #### [place] [address] UA Leuk Est Negative Normal Negative [facility] ([place] Comment on above: Performed By: #### U A, UAMICAO #### [address] [place] [address] UA Nitrite Negative Normal Negative [facility] ([place] Comment on above: Performed By: #### U A, UAMICAO #### [address] [place] [address] UA pH 5.5 Normal 5.0 - 8.0 [facility] ([place] Comment on above: Performed By: #### U A, UAMICAO #### [place] [address] UA Protein 30 mg/dL Normal Negative [facility] ([place] Comment on above: Performed By: #### U A, UAMICAO #### [address] [address] UA Spec Grav 1.025 Normal 1.015-1.02 5 [facility] ([place] Comment on above: Performed By: #### U A, UAMICAO #### [address] [address] UA Specimen Type Clean Catch Normal [facility] ([place] Comment on above: Performed By: #### U A, UAMICAO #### [place] [address] UA Urobilinogen 0.2 E.U./dL Normal 0.2-1.0 [facility] ([place] Comment on above: Performed By: #### U A, UAMICAO #### [address] [address] Urobilinogen (U) [Mass/Vol] Negative Normal Negative [facility] ([place]) Comment on above: Performed By: #### U DAVID Dubois #### [address] [address] CBC W Auto Differential pane l (Bld)on 02-18-2021 Basophils (Bld) [#/Vol] 10*3/uL Normal <0.11 A [facility] Comment on above: Order Comment: Speci men Type: BLOOD SPECIMEN Performed By: #### 2 4320-, [facility], 1987-08 #### [facility] CLIA [id number] [address] Basophils/100 WBC (Bld) 0.2 % Normal [facility] Comment on above: Order Comment: Speci men Type: BLOOD SPECIMEN Performed By: #### 2 4320-05, [facility], 1987-08 #### [facility] CLIA [id number] [address] Differential cell count method Nom (Bld) Auto Normal [facility] Comment on above: Order Comment: Speci men Type: BLOOD SPECIMEN Performed By: #### 2 4320-05, [facility], 1987-08 #### [facility] CLIA [id number] [address] OF [facility] Eosinophils (Bld) [#/Vol] 10*3/uL Normal <0.46 [facility] Comment on above: Order Comment: Speci men Type: BLOOD SPECIMEN Performed By: #### 2 4320-05, [facility], 1987-08 #### [facility] CLIA [id number] [address] Eosinophils/100 WBC (Bld) 0.0 % Normal [facility] Comment on above: Order Comment: Speci men Type: BLOOD SPECIMEN Performed By: #### 2 4320-05, [facility], 1987-08 #### [facility] CLIA [id number] [address] [place] Erythrocyte distribution width (RBC) [Ratio] 11.9 % Normal 11.5-15.0 [facility] Comment on above: Order Comment: Speci men Type: BLOOD SPECIMEN Performed By: #### 2 4320-05, [facility], 1987-08 #### [facility] CLIA [id number] [address] Hematocrit (Bld) [Volume fraction] 47.5 % Normal 39.0-51.0 [facility] Comment on above: Order Comment: Speci men Type: BLOOD SPECIMEN Performed By: #### 2 4320-05, [facility], 1987-08 #### [facility] CLIA [id number] [address] Hemoglobin (Bld) [Mass/Vol] 16.4 g/dL Normal 13.0-17.0 [facility] Comment on above: Order Comment: Speci men Type: BLOOD SPECIMEN Performed By: #### 2 4320-05, [facility], 1987-08 #### [facility] CLIA [id number] [address] IMMATURE GRAN % 0.2 % Normal [facility] Comment on above: Order Comment: Speci men Type: BLOOD SPECIMEN Performed By: #### 2 4320-05, [facility], 1987-08 #### [facility] CLIA [id number] [address] IMMATURE GRAN ABS <0.03 Normal <0.10 [facility] Comment on above: Order Comment: Speci men Type: BLOOD SPECIMEN Performed By: #### 2 4320-05, [facility], 1987-08 #### [facility] CLIA [id number] [address] Lymphocytes (Bld) [#/Vol] 0.98 10*3/uL Low 1.00-4.00 [facility] Comment on above: Order Comment: Speci men Type: BLOOD SPECIMEN Performed By: #### 2 4320-05, [facility], 1987-08 #### [facility] CLIA [id number] [address] Lymphocytes/100 WBC (Bld) 20.5 % Normal [facility] Comment on above: Order Comment: Speci men Type: BLOOD SPECIMEN Performed By: #### 2 4320-05, [facility], 1987-08 #### [facility] CLIA [id number] [address] MCH (RBC) [Entitic mass] 29.7 pg Normal 26.0-34.0 [facility] Comment on above: Order Comment: Speci men Type: BLOOD SPECIMEN Performed By: #### 2 4320-05, [facility], 1987-08 #### [facility] CLIA [id number] [address] MCHC (RBC) [Mass/Vol] 34.5 g/dL Normal 30.5-36.0 [facility] Comment on above: Order Comment: Speci men Type: BLOOD SPECIMEN Performed By: #### 2 4320-05, [facility], 1987-08 #### [facility] CLIA [id number] [address] MCV (RBC) [Entitic vol] 85.9 fL Normal 80.0-100.0 [facility] Comment on above: Order Comment: Speci men Type: BLOOD SPECIMEN Performed By: #### 2 4320-05, [facility], 1987-08 #### [facility] CLIA [id number] [address] Monocytes (Bld) [#/Vol] 0.34 10*3/uL Normal <0.87 [facility] Comment on above: Order Comment: Speci men Type: BLOOD SPECIMEN Performed By: #### 2 4320-05, [facility], 1987-08 #### [facility] CLIA [id number] [address] Monocytes/100 WBC (Bld) 7.1 % Normal A [facility] Comment on above: Order Comment: Speci men Type: BLOOD SPECIMEN Performed By: #### 2 4320-05, [facility], 1987-08 #### [facility] CLIA [id number] [address] Neutrophils (Bld) [#/Vol] 3.43 10*3/uL Normal 1.45-7.50 [facility] Comment on above: Order Comment: Speci men Type: BLOOD SPECIMEN Performed By: #### 2 4320-2, [facility], 1987-08 #### [facility] CLIA [id number] [address] Neutrophils/100 WBC (Bld) 72.0 % Normal [facility] Comment on above: Order Comment: Speci men Type: BLOOD SPECIMEN Performed By: #### 2 4320-05, [facility], 1987-08 #### [facility] CLIA [id number] [address] Nucleated RBC (Bld) [#/Vol] 10*3/uL Normal <0.01 [facility] Comment on above: Order Comment: Speci men Type: BLOOD SPECIMEN Performed By: #### 2 4320-05, [facility], 1987-08 #### [facility] CLIA [id number] [address] Nucleated RBC/100 WBC (Bld) [Ratio] 0.0 /[address] [facility] Comment on above: Order Comment: Speci men Type: BLOOD SPECIMEN Performed By: #### 2 2, [facility], 1987-08 #### [facility] CLIA [id number] [address] Platelet mean volume (Bld) [Entitic vol] 8.9 fL Low 9.0-12.7 [facility] Comment on above: Order Comment: Speci men Type: BLOOD SPECIMEN Performed By: #### 2 4320-2, [facility], 1987-08 #### [facility] CLIA [id number] [address] [place] Platelets (Bld) [#/Vol] 139 10*3/uL Low 150-400 [facility] Comment on above: Order Comment: Speci men Type: BLOOD SPECIMEN Performed By: #### 2 432-2, [facility], 1987-08 #### [facility] CLIA [id number] [address] RBC (Bld) [#/Vol] 5.53 10*6/uL Normal 4.20-6.00 [facility] Comment on above: Order Comment: Speci men Type: BLOOD SPECIMEN Performed By: #### 2 4320-2, [facility], 1987-08 #### [facility] CLIA [id number] [address] WBC (Bld) [#/Vol] 4.77 10*3/uL Normal 3.70-11.00 [facility] Comment on above: Order Comment: Speci men Type: BLOOD SPECIMEN Performed By: #### 2 4320-05, [facility], 1987-08 #### [facility] CLIA [id number] [address] CNDSon 02-18-2021 CN HNO ID: [id number] Author: Renny Tenorio DO Service: Hospital Medicine Author Type: Physician Type: Discharge Summary Filed: 03/04/2021 5:46 PM Note Text: DISCHARGE SUMMARY PATIENT NAME: Shola Martinez Code Status: Not on file Highest Readmission Risk Score: 16 The 30 day readmissions risk score is derived from an internally validated risk model which evaluates patient level characteristics, utilization history, medication orders and lab results up until the day of discharge. Patients with a score of 40 or above are considered highest risk for readmission. Specific patient level drivers will be listed at the bottom of the summary. Admission Information Admission Information ADMIT DATE: 02/14/2021 DISCHARGE DATE: 02/18/2021 MY DOCTORS AND MEDICAL TEAM: My Main Hospital Doctor: Renny Tenorio DO Primary Care Provider: Danie Sawyer MD My Medical Team Members: Treatment Team: Attending Provider: Renny Tenorio DO Primary Service: Ak Manuel Brown MY CONDITION AT DISCHARGE: Stable REASON I WAS IN THE HOSPITAL: nausea vomiting SUMMARY OF WHAT HAPPENED WHILE I WAS IN THE HOSPITAL: Patient was admitted for nausea vomiting. 70 year old male with a history of diabetes, hypertension, hyperlipidemia, BPH, CAD, HFpEF, CKD 2, COPD, sleep apnea who presents with nausea and dry heaving x 4 days found to have dehydration, sepsis with fever and COVID19 positive. He was not hypoxic so did not receive remdesevir, given symptoms was started on decadron and will finish 10 day course. He was initially started on IV antibiotics but were discontinued and did well monitored off antibiotics. He is very weak and PTOT recommend SNF which he is agreeable to. His nausea and vomiting and diarrhea improved and his oral intake also improved, s/p IVF. OTHER PROBLEMS/DIAGNOSIS: Active Problems: COVID-19 Resolved Problems: * No resolved hospital problems. * OPERATIONS PERFORMED WHILE IN THE HOSPITAL: None IMPORTANT TEST/PROCEDURES: No procedures performed TEST RESULTS NOT AVAILABLE AT THIS TIME: No pending results Discharge Disposition [facility] Facility Activity When You Leave the Hospital Activity Resume pre-hospital activity Diet Instructions Diet Resume pre-hospital diet Follow Up Appointments Follow-Up Appointment When: In 1 week Danie Sawyer MD [place] [address] PCP Requested Referral Additional Provider to Provider Information: Treatment Team: Attending Provider: Renny Tenorio DO Primary Service: Farshad Brown FOLLOW-UP APPOINTMENTS ALREADY SCHEDULED WITH A [facility] PROVIDER: No future appointments. ALLERGIES No Known Allergies DISCHARGE MEDICATION: Current Discharge Medication List START taking these medications guaiFENesin (MUCINEX) 600 mg Take 600 mg by mouth every 12 hours as needed (cough). dexAMETHasone (DECADRON) 6 mg Take 6 mg by mouth daily with breakfast. Qty: 6 tablet Refills: 0 CONTINUE these medications which have NOT CHANGED albuterol HFA (PROVENTIL HFA, VENTOLIN HFA) 1 Puff Inhale 1 Puff as instructed as needed. clopidogrel (PLAVIX) 75 mg Take 75 mg by mouth once daily. hydrOXYzine pamoate (VISTARIL) 25 mg Take 25 mg by mouth as needed for itching/rash. isosorbide mononitrate ER (IMDUR) 30 mg Take 30 mg by mouth once daily. TRADJENTA 5 mg Take 5 mg by mouth once daily. losartan (COZAAR) 25 mg Take 25 mg by mouth once daily. OZEMPIC 0.5 mg Inject 0.5 mg subcutaneously every . tamsulosin (FLOMAX) 0.4 mg Take 0.4 mg by mouth once daily. atorvastatin (LIPITOR) 80 mg Take 80 mg by mouth once daily. metFORMIN ER (GLUCOPHAGE XR) 750 mg Take 750 mg by mouth twice daily with meals. aspirin 81 mg Take 81 mg by mouth once daily. multivitamin 1 tablet Take 1 tablet by mouth daily with breakfast. senna (SENOKOT) 8.6 mg Take 8.6 mg by mouth twice daily. acetaminophen (TYLENOL) 650 mg Take 650 mg by mouth every 6 hours as needed. BP 131/89 Pulse 70 Temp 37 ?C (98.6 ?F) (Axillary) Resp 20 Ht 188 cm (6' 2") Wt 112.5 kg (248 lb) SpO2 96% BMI 31.84 kg/m? General - AANDOx3, no acute distress CV - RRR S1 S2, No?rubs or gallops RESP -?decreased bowel sounds at bases,?No wheezes, ronchi, rales ABD - soft, NT, ND +bowel sounds EXT - no gross joint deformity, no clubbing, cyanosis, edema NEURO - CN II-XII grossly intact, no focal neuro deficits The patient's risk for 30-day readmission is determined using the following contributing factors: Pt variables contributing to increased readmission risk: 17 Active Medication Orders 11 Most Recent BUN Result 8.4 First Resulted Calcium During Admission 1 Previous ED Visit (6 mos.)? 1 Number of Previous ED Visits (6 mos.) 1 Insurance - Medicare 1 Active Anticoagulant Plan of care discussed with Provider, RN, Patient and Care Management TIME O (more content not included)... Normal [facility] Comprehensive metabolic 2000 panelon 02-18-2021 Albumin [Mass/Vol] 4.1 g/dL Normal 3.9-4.9 [facility] Comment on above: Order Comment: Speci men Type: BLOOD SPECIMEN Performed By: #### 2 4321-2, [facility], 1987- #### [facility] CLIA [id number] 1 [place] [address] [place] ALP [Catalytic activity/Vol] 95 U/L Normal 38-113 [facility] Comment on above: Order Comment: Speci men Type: BLOOD SPECIMEN Performed By: #### 2 4320-2, [facility], 1987-08 #### [facility] CLIA [id number] [address] ALT With P-5'-P [Catalytic activity/Vol] 76 U/L High 10-54 [facility] Comment on above: Order Comment: Speci men Type: BLOOD SPECIMEN Performed By: #### 2 4320-2, [facility], 1987-08 #### [facility] CLIA [id number] [address] Anion gap [Moles/Vol] 14 mmol/L Normal 9-18 [facility] Comment on above: Order Comment: Speci men Type: BLOOD SPECIMEN Performed By: #### 2 4320-2, [facility], 1987-08 #### [facility] CLIA [id number] [address] AST With P-5'-P [Catalytic activity/Vol] 72 U/L High 14-40 [facility] Comment on above: Order Comment: Speci men Type: BLOOD SPECIMEN Performed By: #### 2 4320-05, [facility], 1987-08 #### [facility] CLIA [id number] [address] Bilirubin [Mass/Vol] 1.2 mg/dL Normal 0.2-1.3 [facility] Comment on above: Order Comment: Speci men Type: BLOOD SPECIMEN Performed By: #### 2 4320-05, [facility], 1987-08 #### [facility] CLIA [id number] [address] Calcium [Mass/Vol] 8.8 mg/dL Normal 8.5-10.2 [facility] Comment on above: Order Comment: Speci men Type: BLOOD SPECIMEN Performed By: #### 2 4320-2, [facility], 1987-08 #### [facility] CLIA [id number] [address] [place] Chloride [Moles/Vol] 94 mmol/L Low 97-105 [facility] Comment on above: Order Comment: Speci men Type: BLOOD SPECIMEN Performed By: #### 2 4320-2, [facility], 1987-08 #### [facility] CLIA [id number] [address] STATES OF [facility] CO2 [Moles/Vol] 22 mmol/L Normal 22-30 [facility] Comment on above: Order Comment: Speci men Type: BLOOD SPECIMEN Performed By: #### 2 4320-2, [facility], 1987-08 #### [facility] CLIA [id number] [address] [place] Creatinine [Mass/Vol] 0.90 mg/dL Normal 0.73-1.22 [facility] Comment on above: Order Comment: Speci men Type: BLOOD SPECIMEN Performed By: #### 2 4320-2, [facility], 1987-08 #### [facility] CLIA [id number] [address] STATES [facility] GFR/1.73 sq M.predicted MDRD (S/P/Bld) [Vol rate/Area] mL/min/{1.73_m2} Normal [facility] Comment on above: Order Comment: Speci men Type: BLOOD SPECIMEN Result Comment: >60 eGFR (Estimated GFR) Units of measure: mL/min/1.73 meters squared eGFR is derived from the reexpressed MDRD Study equation using the following parameters: serum creatinine, age, gender and race. The creatinine assay has been calibrated to be traceable to IDMS. An eGFR <60 mL/min/1.73m2 for >3 months is consistent with chronic kidney disease. Refer to KDOQI guidelines for clinical interpretation. In patients with unstable renal function, e.g. those with acute kidney injury, the eGFR may not accurately reflect actual GFR. Performed By: #### 2 4320-2, [facility], 1987-08 #### [facility] CLIA [id number] [address] [place] Glucose [Mass/Vol] 104 mg/dL High 74-99 [facility] Comment on above: Order Comment: Speci men Type: BLOOD SPECIMEN Result Comment: The [place] [employer] (ADA) provides guidance for cutoff values for fasting glucose and random glucose. The ADA defines fasting as no caloric intake for at least 8 hours. Fasting plasma glucose results between 100 to 125 mg/dL indicate increased risk for diabetes (prediabetes). Fasting plasma glucose results greater than or equal to 126 mg/dL meet the criteria for diagnosis of diabetes. In the absence of unequivocal hyperglycemia, results should be confirmed by repeat testing. In a patient with classic symptoms of hyperglycemia or hyperglycemic crisis, random plasma glucose results greater than or equal to 200 mg/dL meet the criteria for diagnosis of diabetes. Reference: Standards of Medical Care in Diabetes 2016, [place] [employer]. Diabetes Care. 2016.39(Suppl 1). Performed By: #### 2 4320-, [facility], 1987-08 #### [facility] CLIA [id number] [address] [place] Potassium [Moles/Vol] 4.0 mmol/L Normal 3.7-5.1 [facility] Comment on above: Order Comment: Speci men Type: BLOOD SPECIMEN Performed By: #### 2 4320-, [facility], 1987-08 #### [facility] CLIA [id number] [address] [place] Protein [Mass/Vol] 6.9 g/dL Normal 6.3-8.0 [facility] Comment on above: Order Comment: Speci men Type: BLOOD SPECIMEN Performed By: #### 2 4320-05, [facility], 1987-08 #### [facility] CLIA [id number] [address] [place] Sodium [Moles/Vol] 130 mmol/L Low 136-144 [facility] Comment on above: Order Comment: Speci men Type: BLOOD SPECIMEN Performed By: #### 2 4320-, [facility], 1987-08 #### [facility] CLIA [id number] [address] [place] Urea nitrogen [Mass/Vol] 11 mg/dL Normal 9-24 [facility] Comment on above: Order Comment: Speci men Type: BLOOD SPECIMEN Performed By: #### 2 4320-2, [facility], 1987-08 #### [facility] CLIA [id number] [address] CBC W Auto Differential pane l (Bld)on 02-17-2021 Basophils (Bld) [#/Vol] 10*3/uL Normal <0.11 [facility] Comment on above: Order Comment: Speci men Type: BLOOD SPECIMEN Performed By: #### 5 7021-8 #### [facility] CLIA [id number] [address] Basophils/100 WBC (Bld) 0.0 % Normal A [facility] Comment on above: Order Comment: Speci men Type: BLOOD SPECIMEN Performed By: #### 5 7021-8 #### [facility] CLIA [id number] [address] Differential cell count method Nom (Bld) Auto Normal [facility] Comment on above: Order Comment: Speci men Type: BLOOD SPECIMEN Performed By: #### 5 7021-8 #### [facility] CLIA [id number] [address] OF [facility] Eosinophils (Bld) [#/Vol] 10*3/uL Normal <0.46 [facility] Comment on above: Order Comment: Speci men Type: BLOOD SPECIMEN Performed By: #### 5 7021-8 #### [facility] CLIA [id number] [address] Eosinophils/100 WBC (Bld) 0.0 % Normal [facility] Comment on above: Order Comment: Speci men Type: BLOOD SPECIMEN Performed By: #### 5 7021-8 #### [facility] CLIA [id number] [address] Erythrocyte distribution width (RBC) [Ratio] 11.8 % Normal 11.5-15.0 [facility] Comment on above: Order Comment: Speci men Type: BLOOD SPECIMEN Performed By: #### 5 7021-8 #### [facility] CLIA [id number] [address] Hematocrit (Bld) [Volume fraction] 42.7 % Normal 39.0-51.0 [facility] Comment on above: Order Comment: Speci men Type: BLOOD SPECIMEN Performed By: #### 5 7021-8 #### [facility] CLIA [id number] [address] Hemoglobin (Bld) [Mass/Vol] 15.0 g/dL Normal 13.0-17.0 [facility] Comment on above: Order Comment: Speci men Type: BLOOD SPECIMEN Performed By: #### 5 7021-8 #### [facility] CLIA [id number] [address] IMMATURE GRAN % 0.3 % Normal [facility] Comment on above: Order Comment: Speci men Type: BLOOD SPECIMEN Performed By: #### 5 7021-8 #### [facility] CLIA [id number] [address] IMMATURE GRAN ABS <0.03 Normal <0.10 [facility] Comment on above: Order Comment: Speci men Type: BLOOD SPECIMEN Performed By: #### 5 7021-8 #### [facility] CLIA [id number] [address] Lymphocytes (Bld) [#/Vol] 0.59 10*3/uL Low 1.00-4.00 [facility] Comment on above: Order Comment: Speci men Type: BLOOD SPECIMEN Performed By: #### 5 7021-8 #### [facility] CLIA [id number] [address] Lymphocytes/100 WBC (Bld) 20.3 % Normal [facility] Comment on above: Order Comment: Speci men Type: BLOOD SPECIMEN Performed By: #### 5 7021-8 #### [facility] CLIA [id number] [address] MCH (RBC) [Entitic mass] 30.1 pg Normal 26.0-34.0 [facility] Comment on above: Order Comment: Speci men Type: BLOOD SPECIMEN Performed By: #### 5 7021-8 #### [facility] CLIA [id number] [address] MCHC (RBC) [Mass/Vol] 35.1 g/dL Normal 30.5-36.0 [facility] Comment on above: Order Comment: Speci men Type: BLOOD SPECIMEN Performed By: #### 5 7021-8 #### [facility] CLIA [id number] [address] MCV (RBC) [Entitic vol] 85.6 fL Normal 80.0-100.0 [facility] Comment on above: Order Comment: Speci men Type: BLOOD SPECIMEN Performed By: #### 5 7021-8 #### [facility] CLIA [id number] [address] Monocytes (Bld) [#/Vol] 0.29 10*3/uL Normal <0.87 [facility] Comment on above: Order Comment: Speci men Type: BLOOD SPECIMEN Performed By: #### 5 7021-8 #### [facility] CLIA [id number] [address] Monocytes/100 WBC (Bld) 10.0 % Normal [facility] Comment on above: Order Comment: Speci men Type: BLOOD SPECIMEN Performed By: #### 5 7021-8 #### [facility] CLIA [id number] [address] Neutrophils (Bld) [#/Vol] 2.01 10*3/uL Normal 1.45-7.50 [facility] Comment on above: Order Comment: Speci men Type: BLOOD SPECIMEN Performed By: #### 5 7021-8 #### [facility] CLIA [id number] [address] Neutrophils/100 WBC (Bld) 69.4 % Normal [facility] Comment on above: Order Comment: Speci men Type: BLOOD SPECIMEN Performed By: #### 5 7021-8 #### [facility] CLIA [id number] [address] Nucleated RBC (Bld) [#/Vol] 10*3/uL Normal <0.01 [facility] Comment on above: Order Comment: Speci men Type: BLOOD SPECIMEN Performed By: #### 5 7021-8 #### [facility] CLIA [id number] [address] Nucleated RBC/100 WBC (Bld) [Ratio] 0.0 /[address] [facility] Comment on above: Order Comment: Speci men Type: BLOOD SPECIMEN Performed By: #### 5 7021-8 #### [facility] CLIA [id number] [address] Platelet mean volume (Bld) [Entitic vol] 9.0 fL Normal 9.0-12.7 [facility] Comment on above: Order Comment: Speci men Type: BLOOD SPECIMEN Performed By: #### 5 7021-8 #### [facility] CLIA [id number] [address] OF [facility] Platelets (Bld) [#/Vol] 109 10*3/uL Low 150-400 [facility] Comment on above: Order Comment: Speci men Type: BLOOD SPECIMEN Performed By: #### 5 7021-8 #### [facility] CLIA [id number] [address] RBC (Bld) [#/Vol] 4.99 10*6/uL Normal 4.20-6.00 [facility] Comment on above: Order Comment: Speci men Type: BLOOD SPECIMEN Performed By: #### 5 7021-8 #### [facility] CLIA [id number] [address] [place] WBC (Bld) [#/Vol] 2.90 10*3/uL Low 3.70-11.00 [facility] Comment on above: Order Comment: Speci men Type: BLOOD SPECIMEN Performed By: #### 5 7021-8 #### [facility] CLIA [id number] [address] CRP SerPl-mCncon 02-17-2021 CRP [Mass/Vol] mg/L Normal <0.9 [facility] Comment on above: Order Comment: Speci men Type: BLOOD SPECIMEN Performed By: #### 2 4320-2, [facility], 1987-08 #### [facility] CLIA [id number] [address] Comprehensive metabolic 2000 panelon 02-17-2021 Albumin [Mass/Vol] 3.7 g/dL Low 3.9-4.9 [facility] Comment on above: Order Comment: Speci men Type: BLOOD SPECIMEN Performed By: #### 2 4320-2, [facility], 1987-08 #### [facility] CLIA [id number] [address] ALP [Catalytic activity/Vol] 85 U/L Normal 38-113 [facility] Comment on above: Order Comment: Speci men Type: BLOOD SPECIMEN Performed By: #### 2 4320-2, [facility], 1987-08 #### [facility] CLIA [id number] [address] ALT With P-5'-P [Catalytic activity/Vol] 51 U/L Normal 10-54 [facility] Comment on above: Order Comment: Speci men Type: BLOOD SPECIMEN Performed By: #### 2 4320-2, [facility], 1987-08 #### [facility] CLIA [id number] [address] Anion gap [Moles/Vol] 13 mmol/L Normal 9-18 [facility] Comment on above: Order Comment: Speci men Type: BLOOD SPECIMEN Performed By: #### 2 4320-2, [facility], 1987-08 #### [facility] CLIA [id number] [address] OF [facility] AST With P-5'-P [Catalytic activity/Vol] 48 U/L High 14-40 [facility] Comment on above: Order Comment: Speci men Type: BLOOD SPECIMEN Performed By: #### 2 4320-2, [facility], 1987-08 #### [facility] CLIA [id number] [address] STATES OF [facility] Bilirubin [Mass/Vol] 1.2 mg/dL Normal 0.2-1.3 [facility] Comment on above: Order Comment: Speci men Type: BLOOD SPECIMEN Performed By: #### 2 4320-2, [facility], 1987-08 #### [facility] CLIA [id number] [address] STATES [facility] Calcium [Mass/Vol] 8.1 mg/dL Low 8.5-10.2 [facility] Comment on above: Order Comment: Speci men Type: BLOOD SPECIMEN Performed By: #### 2 4320-05, [facility], 1987-08 #### [facility] CLIA [id number] [address] [place] Chloride [Moles/Vol] 98 mmol/L Normal 97-105 [facility] Comment on above: Order Comment: Speci men Type: BLOOD SPECIMEN Performed By: #### 2 4320-05, [facility], 1987-08 #### [facility] CLIA [id number] [address] [place] CO2 [Moles/Vol] 21 mmol/L Low 22-30 [facility] Comment on above: Order Comment: Speci men Type: BLOOD SPECIMEN Performed By: #### 2 2, [facility], 1987-08 #### [facility] CLIA [id number] [address] [place] Creatinine [Mass/Vol] 0.87 mg/dL Normal 0.73-1.22 [facility] Comment on above: Order Comment: Speci men Type: BLOOD SPECIMEN Performed By: #### 2 4320-2, [facility], 1987-08 #### [facility] CLIA [id number] 1 [place] [id number] [place] GFR/1.73 sq M.predicted MDRD (S/P/Bld) [Vol rate/Area] mL/min/{1.73_m2} Normal [facility] Comment on above: Order Comment: Speci men Type: BLOOD SPECIMEN Result Comment: >60 eGFR (Estimated GFR) Units of measure: mL/min/1.73 meters squared eGFR is derived from the reexpressed MDRD Study equation using the following parameters: serum creatinine, age, gender and race. The creatinine assay has been calibrated to be traceable to IDMS. An eGFR <60 mL/min/1.73m2 for >3 months is consistent with chronic kidney disease. Refer to KDOQI guidelines for clinical interpretation. In patients with unstable renal function, e.g. those with acute kidney injury, the eGFR may not accurately reflect actual GFR. Performed By: #### 2 4321-2, [facility], 1987-08 #### [facility] CLIA [id number] 1 [place] [address] [place] Glucose [Mass/Vol] 119 mg/dL High 74-99 [facility] Comment on above: Order Comment: Speci men Type: BLOOD SPECIMEN Result Comment: The [place] [employer] (ADA) provides guidance for cutoff values for fasting glucose and random glucose. The ADA defines fasting as no caloric intake for at least 8 hours. Fasting plasma glucose results between 100 to 125 mg/dL indicate increased risk for diabetes (prediabetes). Fasting plasma glucose results greater than or equal to 126 mg/dL meet the criteria for diagnosis of diabetes. In the absence of unequivocal hyperglycemia, results should be confirmed by repeat testing. In a patient with classic symptoms of hyperglycemia or hyperglycemic crisis, random plasma glucose results greater than or equal to 200 mg/dL meet the criteria for diagnosis of diabetes. Reference: Standards of Medical Care in Diabetes 2016, [place] [employer]. Diabetes Care. 2016.39(Suppl 1). Performed By: #### 2 4321-2, [facility], 1987-08 #### [facility] CLIA [id number] 1 [place] [id number] [place] Potassium [Moles/Vol] 4.0 mmol/L Normal 3.7-5.1 [facility] Comment on above: Order Comment: Speci men Type: BLOOD SPECIMEN Performed By: #### 2 4320-2, [facility], 1987-08 #### [facility] CLIA [id number] [address] Protein [Mass/Vol] 6.2 g/dL Low 6.3-8.0 [facility] Comment on above: Order Comment: Speci men Type: BLOOD SPECIMEN Performed By: #### 2 4320-2, [facility], 1987-08 #### [facility] CLIA [id number] [address] Sodium [Moles/Vol] 132 mmol/L Low 136-144 [facility] Comment on above: Order Comment: Speci men Type: BLOOD SPECIMEN Performed By: #### 2 2, [facility], 1987-08 #### [facility] CLIA [id number] [address] Urea nitrogen [Mass/Vol] 13 mg/dL Normal 9-24 [facility] Comment on above: Order Comment: Speci men Type: BLOOD SPECIMEN Performed By: #### 2 2, [facility], 1987-08 #### [facility] CLIA [id number] [address] FERRITIN BLDon 02-17-2021 Ferritin [Mass/Vol] 316.9 ng/mL Normal 30.3-565.7 [facility] Comment on above: Order Comment: Speci men Type: BLOOD SPECIMEN Performed By: #### 2 2, [facility], 1987-08 #### [facility] CLIA [id number] [address] NURSING PROGon 02-17-2021 NURSING PROG HNO ID: [id number] Author: Jalen Cunningham RN Service: ? Author Type: Registered Nurse Type: Nursing Progress Note Filed: 02/17/2021 9:28 AM Note Text: O2 sat on room air at rest 96% O2 sat on room air w/exertion 99% (patient unable to walk, weakness. Stood for about 2 minutes) Normal [facility] ALLIED HEALTHon 02-16-2021 ALLIED HEALTH HNO ID: [id number] Author: Dana Miller Service: Infection Prevention Author Type: ? Type: Allied Health Filed: 02/16/2021 8:24 AM Note Text: ISOLATION NOTE Admission Date: 02/14/2021 Type of Isolation Recommended: Contact and Droplet Precautions Plus Eyewear (Cranberry Isolation Sign) Indication: COVID-19 ? Maintain Contact/Droplet and Eyewear isolation signage ? Remain in private room or cohort when deemed appropriate ? Don an N95 (or PAPR) prior to entering the patient room ? Avoid entering room during aerosol generating procedure when possible ? Restrict room access to essential personnel only ? Contact Infection Prevention prior to discontinuing precautions when criteria are met ? Limit transport and movement of the patient to medically necessary purposes Date Isolation Initiated: 02/14/2021 Anticipated Duration of Isolation: In consultation with Infection Prevention Type and Date of Positive Test(s): Positive expedited COVID19 on 02/15/2021 SIGNATURE: Dana Miller PATIENT NAME: Shola Martinez DATE: February 16, 2021 TIME: 8:22 AM PAGER/CONTACT #: Infection Prevention, [id number] Infection Prevention after hours/weekend pager: [phone] [facility] CBC W Auto Differential pane l (Bld)on 02-16-2021 Basophils (Bld) [#/Vol] 10*3/uL Normal <0.11 [facility] Comment on above: Order Comment: Speci men Type: BLOOD SPECIMEN Performed By: #### 2 4320-05, [facility], 1987-08 #### [facility] CLIA [id number] [address] [place] [address] [place] Basophils/100 WBC (Bld) 0.0 % Normal [facility] Comment on above: Order Comment: Speci men Type: BLOOD SPECIMEN Performed By: #### 2 4320-, [facility], 1987-08 #### [facility] CLIA [id number] [address] [place] Differential cell count method Nom (Bld) Auto Normal [facility] Comment on above: Order Comment: Speci men Type: BLOOD SPECIMEN Performed By: #### 2 4320-05, [facility], 1987-08 #### [facility] CLIA [id number] [address] Eosinophils (Bld) [#/Vol] 10*3/uL Normal <0.46 [facility] Comment on above: Order Comment: Speci men Type: BLOOD SPECIMEN Performed By: #### 2 4320-05, [facility], 1987-08 #### [facility] CLIA [id number] [address] Eosinophils/100 WBC (Bld) 0.0 % Normal [facility] Comment on above: Order Comment: Speci men Type: BLOOD SPECIMEN Performed By: #### 2 4320-05, [facility], 1987-08 #### [facility] CLIA [id number] [address] Erythrocyte distribution width (RBC) [Ratio] 11.7 % Normal 11.5-15.0 [facility] Comment on above: Order Comment: Speci men Type: BLOOD SPECIMEN Performed By: #### 2 4320-05, [facility], 1987-08 #### [facility] CLIA [id number] [address] Hematocrit (Bld) [Volume fraction] 42.1 % Normal 39.0-51.0 [facility] Comment on above: Order Comment: Speci men Type: BLOOD SPECIMEN Performed By: #### 2 4320-05, [facility], 1987-08 #### [facility] CLIA [id number] [address] Hemoglobin (Bld) [Mass/Vol] 14.6 g/dL Normal 13.0-17.0 [facility] Comment on above: Order Comment: Speci men Type: BLOOD SPECIMEN Performed By: #### 2 4320-05, [facility], 1987-08 #### [facility] CLIA [id number] [address] IMMATURE GRAN % 0.4 % Normal [facility] Comment on above: Order Comment: Speci men Type: BLOOD SPECIMEN Performed By: #### 2 4320-05, [facility], 1987-08 #### [facility] CLIA [id number] [address] IMMATURE GRAN ABS <0.03 Normal <0.10 [facility] Comment on above: Order Comment: Speci men Type: BLOOD SPECIMEN Performed By: #### 2 4320-05, [facility], 1987-08 #### [facility] CLIA [id number] [address] Lymphocytes (Bld) [#/Vol] 0.53 10*3/uL Low 1.00-4.00 [facility] Comment on above: Order Comment: Speci men Type: BLOOD SPECIMEN Performed By: #### 2 4320-05, [facility], 1987-08 #### [facility] CLIA [id number] [address] Lymphocytes/100 WBC (Bld) 19.3 % Normal [facility] Comment on above: Order Comment: Speci men Type: BLOOD SPECIMEN Performed By: #### 2 4320-05, [facility], 1987-08 #### [facility] CLIA [id number] [address] MCH (RBC) [Entitic mass] 30.0 pg Normal 26.0-34.0 [facility] Comment on above: Order Comment: Speci men Type: BLOOD SPECIMEN Performed By: #### 2 4320-05, [facility], 1987-08 #### [facility] CLIA [id number] [address] MCHC (RBC) [Mass/Vol] 34.7 g/dL Normal 30.5-36.0 [facility] Comment on above: Order Comment: Speci men Type: BLOOD SPECIMEN Performed By: #### 2 4320-05, [facility], 1987-08 #### [facility] CLIA [id number] [address] MCV (RBC) [Entitic vol] 86.4 fL Normal 80.0-100.0 [facility] Comment on above: Order Comment: Speci men Type: BLOOD SPECIMEN Performed By: #### 2 4320-2, [facility], 1987-08 #### [facility] CLIA [id number] [address] Monocytes (Bld) [#/Vol] 0.36 10*3/uL Normal <0.87 [facility] Comment on above: Order Comment: Speci men Type: BLOOD SPECIMEN Performed By: #### 2 4320-05, [facility], 1987-08 #### [facility] CLIA [id number] [address] Monocytes/100 WBC (Bld) 13.1 % Normal [facility] Comment on above: Order Comment: Speci men Type: BLOOD SPECIMEN Performed By: #### 2 4320-05, [facility], 1987-08 #### [facility] CLIA [id number] [address] Neutrophils (Bld) [#/Vol] 1.84 10*3/uL Normal 1.45-7.50 [facility] Comment on above: Order Comment: Speci men Type: BLOOD SPECIMEN Performed By: #### 2 4320-05, [facility], 1987-08 #### [facility] CLIA [id number] [address] Neutrophils/100 WBC (Bld) 67.2 % Normal [facility] Comment on above: Order Comment: Speci men Type: BLOOD SPECIMEN Performed By: #### 2 4320-2, [facility], 1987-08 #### [facility] CLIA [id number] [address] Nucleated RBC (Bld) [#/Vol] 10*3/uL Normal <0.01 [facility] Comment on above: Order Comment: Speci men Type: BLOOD SPECIMEN Performed By: #### 2 4320, [facility], 1987-08 #### [facility] CLIA [id number] [address] Nucleated RBC/100 WBC (Bld) [Ratio] 0.0 /[address] [facility] Comment on above: Order Comment: Speci men Type: BLOOD SPECIMEN Performed By: #### 2 4320-05, [facility], 1987-08 #### [facility] CLIA [id number] [address] Platelet mean volume (Bld) [Entitic vol] 9.0 fL Normal 9.0-12.7 [facility] Comment on above: Order Comment: Speci men Type: BLOOD SPECIMEN Performed By: #### 2 4320-05, [facility], 1987-08 #### [facility] CLIA [id number] [address] Platelets (Bld) [#/Vol] 101 10*3/uL Low 150-400 [facility] Comment on above: Order Comment: Speci men Type: BLOOD SPECIMEN Performed By: #### 2 4320-05, [facility], 1987-08 #### [facility] CLIA [id number] [address] RBC (Bld) [#/Vol] 4.87 10*6/uL Normal 4.20-6.00 [facility] Comment on above: Order Comment: Speci men Type: BLOOD SPECIMEN Performed By: #### 2 4320-05, [facility], 1987-08 #### [facility] CLIA [id number] [address] WBC (Bld) [#/Vol] 2.74 10*3/uL Low 3.70-11.00 [facility] Comment on above: Order Comment: Speci men Type: BLOOD SPECIMEN Performed By: #### 2 4320-05, [facility], 1987-08 #### [facility] CLIA [id number] [address] Comprehensive metabolic 2000 panelon 02-16-2021 Albumin [Mass/Vol] 3.8 g/dL Low 3.9-4.9 [facility] Comment on above: Order Comment: Speci men Type: BLOOD SPECIMEN Performed By: #### 2 4323-8 #### [facility] CLIA [id number] [address] ALP [Catalytic activity/Vol] 90 U/L Normal 38-113 [facility] Comment on above: Order Comment: Speci men Type: BLOOD SPECIMEN Performed By: #### 2 4323-8 #### [facility] CLIA [id number] [address] ALT With P-5'-P [Catalytic activity/Vol] 57 U/L High 10-54 [facility] Comment on above: Order Comment: Speci men Type: BLOOD SPECIMEN Performed By: #### 2 4323-8 #### [facility] CLIA [id number] [address] Anion gap [Moles/Vol] 12 mmol/L Normal 9-18 [facility] Comment on above: Order Comment: Speci men Type: BLOOD SPECIMEN Performed By: #### 2 4323-8 #### [facility] CLIA [id number] [address] AST With P-5'-P [Catalytic activity/Vol] 60 U/L High 14-40 [facility] Comment on above: Order Comment: Speci men Type: BLOOD SPECIMEN Performed By: #### 2 4323-8 #### [facility] CLIA [id number] [address] Bilirubin [Mass/Vol] 1.4 mg/dL High 0.2-1.3 [facility] Comment on above: Order Comment: Speci men Type: BLOOD SPECIMEN Performed By: #### 2 4323-8 #### [facility] CLIA [id number] [address] [facility] Calcium [Mass/Vol] 8.2 mg/dL Low 8.5-10.2 [facility] Comment on above: Order Comment: Speci men Type: BLOOD SPECIMEN Performed By: #### 2 4323-8 #### [facility] CLIA [id number] [address] Chloride [Moles/Vol] 96 mmol/L Low 97-105 [facility] Comment on above: Order Comment: Speci men Type: BLOOD SPECIMEN Performed By: #### 2 4323-8 #### [facility] CLIA [id number] [address] CO2 [Moles/Vol] 24 mmol/L Normal 22-30 [facility] Comment on above: Order Comment: Speci men Type: BLOOD SPECIMEN Performed By: #### 2 4323-8 #### [facility] CLIA [id number] [address] Creatinine [Mass/Vol] 1.00 mg/dL Normal 0.73-1.22 [facility] Comment on above: Order Comment: Speci men Type: BLOOD SPECIMEN Performed By: #### 2 4323-8 #### [facility] CLIA [id number] [address] GFR/1.73 sq M.predicted MDRD (S/P/Bld) [Vol rate/Area] mL/min/{1.73_m2} Normal [facility] Comment on above: Order Comment: Speci men Type: BLOOD SPECIMEN Result Comment: >60 eGFR (Estimated GFR) Units of measure: mL/min/1.73 meters squared eGFR is derived from the reexpressed MDRD Study equation using the following parameters: serum creatinine, age, gender and race. The creatinine assay has been calibrated to be traceable to IDMS. An eGFR <60 mL/min/1.73m2 for >3 months is consistent with chronic kidney disease. Refer to KDOQI guidelines for clinical interpretation. In patients with unstable renal function, e.g. those with acute kidney injury, the eGFR may not accurately reflect actual GFR. Performed By: #### 2 4323-8 #### [facility] CLIA [id number] [address] [place] Glucose [Mass/Vol] 112 mg/dL High 74-99 [facility] Comment on above: Order Comment: Speci men Type: BLOOD SPECIMEN Result Comment: The [place] [employer] (ADA) provides guidance for cutoff values for fasting glucose and random glucose. The ADA defines fasting as no caloric intake for at least 8 hours. Fasting plasma glucose results between 100 to 125 mg/dL indicate increased risk for diabetes (prediabetes). Fasting plasma glucose results greater than or equal to 126 mg/dL meet the criteria for diagnosis of diabetes. In the absence of unequivocal hyperglycemia, results should be confirmed by repeat testing. In a patient with classic symptoms of hyperglycemia or hyperglycemic crisis, random plasma glucose results greater than or equal to 200 mg/dL meet the criteria for diagnosis of diabetes. Reference: Standards of Medical Care in Diabetes 2016, [place] [employer]. Diabetes Care. 2016.39(Suppl 1). Performed By: #### 2 4323-8 #### [facility] CLIA [id number] [address] [place] Potassium [Moles/Vol] 4.0 mmol/L Normal 3.7-5.1 [facility] Comment on above: Order Comment: Speci men Type: BLOOD SPECIMEN Performed By: #### 2 4323-8 #### [facility] CLIA [id number] [address] [place] Protein [Mass/Vol] 6.3 g/dL Normal 6.3-8.0 [facility] Comment on above: Order Comment: Speci men Type: BLOOD SPECIMEN Performed By: #### 2 4323-8 #### [facility] CLIA [id number] [address] [place] [address] [place] Sodium [Moles/Vol] 132 mmol/L Low 136-144 [facility] Comment on above: Order Comment: Speci men Type: BLOOD SPECIMEN Performed By: #### 2 4323-8 #### [facility] CLIA [id number] [address] [place] Urea nitrogen [Mass/Vol] 11 mg/dL Normal 9-24 [facility] Comment on above: Order Comment: Speci men Type: BLOOD SPECIMEN Performed By: #### 2 4323-8 #### [facility] CLIA [id number] [address] HAV IgM Ser Qlon 02-16-2021 HAV IgM Ql (S) Negative Normal Negative [facility] Comment on above: Order Comment: Speci men Type: BLOOD SPECIMEN Performed By: #### 2 4320-2, [facility], 1987-08 #### [facility] CLIA [id number] [address] HBV core IgM Ser Qlon 2020 HBV core IgM Ql (S) Negative Normal Negative [facility] Comment on above: Order Comment: Speci men Type: BLOOD SPECIMEN Performed By: #### 2 4320-2, [facility], 1987-08 #### [facility] CLIA [id number] [address] HBV surface Ab IA Ql (S)on 04-18-2020 HBV surface Ag Ql (S) Negative Normal Negative [facility] Comment on above: Order Comment: Speci men Type: BLOOD SPECIMEN Performed By: #### 2 4320-2, [facility], 1987-08 #### [facility] CLIA [id number] [address] HCV Ab Ser Qlon 02-16-2021 HCV Ab Ql (S) Negative Normal Negative [facility] Comment on above: Order Comment: Speci men Type: BLOOD SPECIMEN Performed By: #### 2 4320-2, [facility], 1987-08 #### [facility] CLIA [id number] [address] NURSING PROGon 02-16-2021 NURSING PROG HNO ID: [id number] Author: Alejandrina Morales RN Service: ? Author Type: Registered Nurse Type: Nursing Progress Note Filed: 02/16/2021 6:38 PM Note Text: Pts O2 sat was 96% on RA.... stood pt up for aprox a minute and O2 sat was 99% ... pt became unstable and sat back down in the bed. Normal [facility] THERAPY NTon 02-16-2021 THERAPY NT HNO ID: [id number] Author: DANA Dyer/Patrick Service: Occupational Therapy Author Type: Occupational Therapist Type: Therapy (PT/OT/Speech/Resp) Filed: 02/16/2021 3:52 PM Note Text: Occupational Therapy Evaluation SERVICE DATE: 02/16/2021 SERVICE TIME: 1525 to 1544 ROOM: [place] [address] Recommended Discharge Disposition: Subacute/SNF Recommended Discharge Disposition Due to: Patient requires daily, facility-based rehabilitation from at least one discipline due to:;ADL impairment resulting in caregiver dependence;decline in functional status requiring daily skilled care OT 6 Clicks Score: 15 Precautions/Activity Restrictions: Fall Risk;Bed/Chair Alarm Isolation Type: Contact AND Droplet Precautions-Plus Eyewear Current Hospital Course: 70 y.o male COVID+ Reason for Hospital Admission: COVID Relevant Past Medical History: CAD, CHF, CKD 2, COPD, HTN, DM Response to Therapy Interventions: Good participation in activities,Needs frequent redirection or re-instruction,Requires additional time to complete activities,Low activity tolerance Continue skilled needs due to: Functional impairment,Safety concerns Occupational Therapy Problem List: Impaired Self Care;Decreased Activity Tolerance;Decreased Strength;Functional Mobility Impairment;Balance Impaired Cognition/Communication Deficits Responsiveness: Alert,Awake Follows Commands: 2-step Commands,Cueing Needed Cueing to Follow Commands: Moderate Executive Function Deficits: Safety Awareness,Insight to Deficits,Judgement,Problem Solving Judgement Deficit: Moderate impairment Insight to Deficits: Minimal impairment Problem Solving Deficit: Minimal impairment Safety Awareness Deficit: Moderate impairment Treatment Interventions: Education;Self Care / Home Management;Energy Conservation Training;Strengthening;Fun ctional Mobility Training;Balance Training Home Environment Patient Lives With: Self/Alone Assistance Available: PRN Entry To Home: Ramp Number Of Stairs To Bed/Bath: 0 Tub/Shower Type: tub shower Laundry: patient completes, located on another floor of apartment building Equipment Owned: Wheeled Walker;Wheelchair;Shower Chair;Grab Bars-Shower Prior Functional Level: Within Functional Limits;Required Assistance Assistance Required With: Shopping;Transportation Prior Functional Level Comments: Patient reports using wheelchair for mobility, uses walker to complete stand pivot transfers, independent with ADL's and IADL's, uses transportation service Patient Report: pt pleasant and agreeable to OT CURRENT FUNCTIONAL STATUS: Most recent performance Current Activities of Daily Living Assist Level Additional Information Feeding Set Up Grooming Contact Guard Assistance Bathing Upper Body Minimal Assistance Bathing Lower Body Moderate Assistance Dressing Upper Body Minimal Assistance Dressing Lower Body Maximal Assistance Toileting Moderate Assistance Functional Mobility Assist Level Additional Information Rolling Supine to Sit Minimal Assistance Sit to Supine Minimal Assistance Scooting Sit to Stand Minimal Assistance Stand to Sit Minimal Assistance demos increased eccentric control when transitioning from standing to sitting at edge of bed with moderate verbal cues provided to ensure pt slowly sits down and reaches for bed surface for support Bed to Chair Toilet/Commode Shower Functional Mobility Moderate Assistance Wheeled Walker Instructed to take side steps to head of bed with wheeled walker, pt very unsteady and requires moderate assist Blank zhang indicate activity not attempted Range of Motion: WFL Strength: Strength Limitation Comments Strength Limitation Comments: 4/5 Balance: Dynamic Sitting;Dynamic Standing Dynamic Sitting Balance: Fair Patient accepts minimal challenge, able to maintain balance while turning head/trunk Dynamic Standing Balance: Poor Patient unable to accept challenge or move without loss of balance Activity Tolerance: Standing Activity Standing Activity: static standing and side steps to HOB Standing Activity Tolerance (in minutes): 3 Learning/Educational Needs: Discharge Plan;Plan of Care;Functional Activities/Mobility;Equipm ent;Safety;Self Care Goals for Plan of Care: Patient /Caregiver Goals: Care For Self Grooming with: Contact Guard Assistance (sink side) Upper Body Bathing with: Stand By Assistance Upper Body Dressing with: Stand By Assistance Lower Body Bathing with: Contact Guard Assistance Lower Body Dressing with: Contact Guard Assistance Toilet Hygiene with: Contact Guard Assistance Chair Transfer with: Contact Guard Assistance Toilet Transfer with: Contact Guard Assistance Additional Goal 1: pt will complete standing ADL x10 minutes with no losses of balance Increased Awareness of Cognitive Impairments as Related to ADL's/IADL's: Demonstrated;Verbalized (increased safety awareness with functional transfers wit (more content not included)... Normal [facility] THERAPY NT HNO ID: [id number] Author: Elsa Agee, PT Service: Physical Therapy Author Type: Physical Therapist Type: Therapy (PT/OT/Speech/Resp) Filed: 02/16/2021 3:15 PM Note Text: Physical Therapy Evaluation SERVICE DATE: 02/16/2021 SERVICE TIME: 1426 to 1452 ROOM: [id number] Recommended Discharge Disposition: Subacute/SNF Recommended Discharge Disposition Comments: Patient below baseline functioning of independence with transfers in/out of wheelchair, patient currently requiring increased assist with bed mobility and transfers, recommend SNF at discharge to progress strength and regain independence for safe return home Recommended Discharge Disposition Due to: Patient requires daily, facility-based rehabilitation from at least one discipline due to:;decline in functional status requiring daily skilled care;coordination deficits;deficits affecting dominant side;deficits affecting non-dominant side;high level balance deficits;ongoing intervention of multiple therapy disciplines PT 6 Clicks Score: 13 Precautions/Activity Restrictions: Fall Risk;Bed/Chair Alarm Isolation Type: Contact AND Droplet Precautions-Plus Eyewear Current Hospital Course: 70 y.o male COVID+ Reason for Hospital Admission: COVID Relevant Past Medical History: CAD, CHF, CKD 2, COPD, HTN, DM Response to Therapy Interventions: Good participation in activities,Low activity tolerance,Needs frequent redirection or re-instruction,Requires additional time to complete activities Continue skilled needs due to: Continued monitoring of vital signs during mobility required,Functional mobility/skill impairments,Safety concerns Physical Therapy Problem List: Decreased Activity Tolerance;Decreased Strength;Functional Mobility Impairment;Balance Impaired Treatment Interventions: Energy Conservation Training;Strengthening;Fun ctional Mobility Training;Balance Training Plan for next visit: Bed mobility,Chair transfer training,Exercise instruction/handout,Pre-ga it activities,Sit to Stand Transfers,Walker Training Home Environment Patient Lives With: Self/Alone Assistance Available: PRN Entry To Home: Ramp Number Of Stairs To Bed/Bath: 0 Tub/Shower Type: tub shower Laundry: patient completes, located on another floor of apartment building Equipment Owned: Wheeled Walker;Wheelchair;Shower Chair;Grab Bars-Shower Prior Functional Level: Within Functional Limits;Required Assistance Assistance Required With: Shopping;Transportation Prior Functional Level Comments: Patient reports using wheelchair for mobility, uses walker to complete stand pivot transfers, independent with ADL's and IADL's, uses transportation service Patient Report: Patient pleasant and agreeable to PT session CURRENT FUNCTIONAL STATUS: Most recent performance Current Functional Mobility Assist Level Additional Information Rolling Supine to Sit Minimal Assistance;Additional Information cues to slide BLE to edge of bed, cuing for hand placement and sequencing, patient actively attempting to push trunk up with increased difficulty, assist at trunk to complete, min assist to correct lateral trunk sway once in sitting Sit to Supine Minimal Assistance;Additional Information cues/assist to clear BLE at edge of bed Scooting Sit to Stand Moderate Assistance;Additional Information cues for hand placement on edge of bed, power through legs to stand, patient significantly retropulsive upon standing, falling back to edge of bed with first stand, mod assist with second stand with noted retropulsion however able to correct with mod assist, patient relying heavilty on back of legs being supported by edge of bed to maintain standing Stand to Sit Moderate Assistance;Additional Information cues to reach back for edge of bed, several cues required, poor eccentric control with assist to control descent of trunk Bed to Chair Toilet/Commode Gait Moderate Assistance;Additional Information Gait Device: Wheeled Walker Gait Distance (feet): 2 side steps EOB cuing for tall upright posture with feet in walker frame, cues for side step sequencing, patient unable to clear back of legs from edge of bed secondary to poor balance, patient unsteady on feet requiring moderate assist Stairs Curb Step Car Transfer Blank zhang indicate activity not attempted General Deviations/Observations: Flexed trunk posture;Lateral sway increased;Loss of Balance;Non-functional gait speed;Shuffling Gait Range of Motion: WFL Strength: Lower Extremity Comments Right Lower Extremity Strength Comments: grossly 3+/5 Left Lower Extremity Strength Comments: grossly 3+/5 Balance: Static Sitting;Dynamic Sitting;Dynamic Standing;Static Standing Static Sitting Balance: Fair Patient able to maintain balance with handhold support, may require occasional minimal assistance Dynamic Sitting Balance: Fair Patient accepts minimal challenge, able to maintain balance while t (more content not included)... Normal [facility] ALLIED HEALTHon 02-15-2021 ALLIED HEALTH HNO ID: [id number] Author: RT Uzair(R) Service: ? Author Type: Dialysis Chief Equipment Technician Type: Allied Health Filed: 02/14/2021 11:50 PM Note Text: Radiology Service Progress Note PATIENT NAME: Shola Martinez DATE OF SERVICE: February 14, 2021 TIME: 11:50 PM PATIENT IDENTITY VERIFICATION COMPLETED USING TWO (2) IDENTIFIERS: Name and Date of confirmed by patient verbally and Name and Date of confirmed by identification band. FALL SCREENING: Has the patient had 2 falls in the last year or 1 fall with injury or currently using an Ambulatory Assistive Device (Walker, Cane, Wheelchair, Crutches, etc.)? Emergency Room Patient: Screened in ED PATIENT GENDER DATA: Male PATIENT RELEVANT IMPLANT DATA REVIEWED: Not Applicable RADIOLOGY DEPARTMENT: General X-ray: Exam(s) Completed: Chest X-Ray PERIPHERAL IV DATA: Not applicable SIGNED BY: Staci Mata RT(R) February 14, 2021 11:[address] [facility] Basic metabolic 2000 panelon 02-15-2021 Anion gap [Moles/Vol] 13 mmol/L Normal 9-18 [facility] Comment on above: Order Comment: Speci men Type: BLOOD SPECIMEN Performed By: #### 2 4320-, [facility], 1987-08 #### [facility] CLIA [id number] [address] [place] [address] [place] Calcium [Mass/Vol] 8.5 mg/dL Normal 8.5-10.2 [facility] Comment on above: Order Comment: Speci men Type: BLOOD SPECIMEN Performed By: #### 2 4320-, [facility], 1987-08 #### [facility] CLIA [id number] [address] [place] Chloride [Moles/Vol] 93 mmol/L Low 97-105 [facility] Comment on above: Order Comment: Speci men Type: BLOOD SPECIMEN Performed By: #### 2 4320-2, [facility], 1987-08 #### [facility] CLIA [id number] [address] [place] [address] [place] CO2 [Moles/Vol] 23 mmol/L Normal 22-30 [facility] Comment on above: Order Comment: Speci men Type: BLOOD SPECIMEN Performed By: #### 2 4320-, [facility], 1987-08 #### [facility] CLIA [id number] [address] [place] [address] [place] Creatinine [Mass/Vol] 1.04 mg/dL Normal 0.73-1.22 [facility] Comment on above: Order Comment: Speci men Type: BLOOD SPECIMEN Performed By: #### 2 4321-2, [facility], 1987-08 #### [facility] CLIA [id number] [address] [place] [address] [place] GFR/1.73 sq M.predicted MDRD (S/P/Bld) [Vol rate/Area] mL/min/{1.73_m2} Normal [facility] Comment on above: Order Comment: Speci men Type: BLOOD SPECIMEN Result Comment: >60 eGFR (Estimated GFR) Units of measure: mL/min/1.73 meters squared eGFR is derived from the reexpressed MDRD Study equation using the following parameters: serum creatinine, age, gender and race. The creatinine assay has been calibrated to be traceable to IDMS. An eGFR <60 mL/min/1.73m2 for >3 months is consistent with chronic kidney disease. Refer to KDOQI guidelines for clinical interpretation. In patients with unstable renal function, e.g. those with acute kidney injury, the eGFR may not accurately reflect actual GFR. Performed By: #### 2 4321-2, [facility], 1987-08 #### [facility] CLIA [id number] [address] [place] [address] [place] Glucose [Mass/Vol] 157 mg/dL High 74-99 [facility] Comment on above: Order Comment: Speci men Type: BLOOD SPECIMEN Result Comment: The [place] Diabetes [employer] (ADA) provides guidance for cutoff values for fasting glucose and random glucose. The ADA defines fasting as no caloric intake for at least 8 hours. Fasting plasma glucose results between 100 to 125 mg/dL indicate increased risk for diabetes (prediabetes). Fasting plasma glucose results greater than or equal to 126 mg/dL meet the criteria for diagnosis of diabetes. In the absence of unequivocal hyperglycemia, results should be confirmed by repeat testing. In a patient with classic symptoms of hyperglycemia or hyperglycemic crisis, random plasma glucose results greater than or equal to 200 mg/dL meet the criteria for diagnosis of diabetes. Reference: Standards of Medical Care in Diabetes 2016, [place] [employer]. Diabetes Care. 2016.39(Suppl 1). Performed By: #### 2 4321-2, [facility], 1987-08 #### [facility] CLIA [id number] [address] Potassium [Moles/Vol] 4.0 mmol/L Normal 3.7-5.1 [facility] Comment on above: Order Comment: Speci men Type: BLOOD SPECIMEN Performed By: #### 2 4320-2, [facility], 1987-08 #### [facility] CLIA [id number] [address] Sodium [Moles/Vol] 129 mmol/L Low 136-144 [facility] Comment on above: Order Comment: Speci men Type: BLOOD SPECIMEN Performed By: #### 2 2, [facility], 1987-08 #### [facility] CLIA [id number] [address] Urea nitrogen [Mass/Vol] 9 mg/dL Normal 9-24 [facility] Comment on above: Order Comment: Speci men Type: BLOOD SPECIMEN Performed By: #### 2 4320-05, [facility], 1987-08 #### [facility] CLIA [id number] [address] CBC W Auto Differential pane l (Bld)on 02-15-2021 Basophils (Bld) [#/Vol] 10*3/uL Normal <0.11 [facility] Comment on above: Order Comment: Speci men Type: BLOOD SPECIMEN Performed By: #### 2 4320-05, [facility], 1987-08 #### [facility] CLIA [id number] [address] Basophils/100 WBC (Bld) 0.0 % Normal [facility] Comment on above: Order Comment: Speci men Type: BLOOD SPECIMEN Performed By: #### 2 2, [facility], 1987-08 #### [facility] CLIA [id number] [address] Differential cell count method Nom (Bld) Auto Normal [facility] Comment on above: Order Comment: Speci men Type: BLOOD SPECIMEN Performed By: #### 2 4320-05, [facility], 1987-08 #### [facility] CLIA [id number] [address] Eosinophils (Bld) [#/Vol] 10*3/uL Normal <0.46 [facility] Comment on above: Order Comment: Speci men Type: BLOOD SPECIMEN Performed By: #### 2 4320-05, [facility], 1987-08 #### [facility] CLIA [id number] [address] Eosinophils/100 WBC (Bld) 0.0 % Normal [facility] Comment on above: Order Comment: Speci men Type: BLOOD SPECIMEN Performed By: #### 2 4320-05, [facility], 1987-08 #### [facility] CLIA [id number] [address] Erythrocyte distribution width (RBC) [Ratio] 11.9 % Normal 11.5-15.0 [facility] Comment on above: Order Comment: Speci men Type: BLOOD SPECIMEN Performed By: #### 2 4320-05, [facility], 1987-08 #### [facility] CLIA [id number] [address] Hematocrit (Bld) [Volume fraction] 43.5 % Normal 39.0-51.0 [facility] Comment on above: Order Comment: Speci men Type: BLOOD SPECIMEN Performed By: #### 2 4320-05, [facility], 1987-08 #### [facility] CLIA [id number] [address] Hemoglobin (Bld) [Mass/Vol] 15.0 g/dL Normal 13.0-17.0 [facility] Comment on above: Order Comment: Speci men Type: BLOOD SPECIMEN Performed By: #### 2 4320-05, [facility], 1987-08 #### [facility] CLIA [id number] [address] IMMATURE GRAN % 0.4 % Normal [facility] Comment on above: Order Comment: Speci men Type: BLOOD SPECIMEN Performed By: #### 2 4320-05, [facility], 1987-08 #### [facility] CLIA [id number] [address] IMMATURE GRAN ABS <0.03 Normal <0.10 [facility] Comment on above: Order Comment: Speci men Type: BLOOD SPECIMEN Performed By: #### 2 4320-05, [facility], 1987-08 #### [facility] CLIA [id number] [address] Lymphocytes (Bld) [#/Vol] 0.32 10*3/uL Low 1.00-4.00 [facility] Comment on above: Order Comment: Speci men Type: BLOOD SPECIMEN Performed By: #### 2 4320-05, [facility], 1987-08 #### [facility] CLIA [id number] [address] Lymphocytes/100 WBC (Bld) 11.2 % Normal [facility] Comment on above: Order Comment: Speci men Type: BLOOD SPECIMEN Performed By: #### 2 4320-05, [facility], 1987-08 #### [facility] CLIA [id number] [address] MCH (RBC) [Entitic mass] 30.1 pg Normal 26.0-34.0 [facility] Comment on above: Order Comment: Speci men Type: BLOOD SPECIMEN Performed By: #### 2 4320-05, [facility], 1987-08 #### [facility] CLIA [id number] [address] MCHC (RBC) [Mass/Vol] 34.5 g/dL Normal 30.5-36.0 [facility] Comment on above: Order Comment: Speci men Type: BLOOD SPECIMEN Performed By: #### 2 4320-05, [facility], 1987-08 #### [facility] CLIA [id number] [address] MCV (RBC) [Entitic vol] 87.3 fL Normal 80.0-100.0 [facility] Comment on above: Order Comment: Speci men Type: BLOOD SPECIMEN Performed By: #### 2 4320-2, [facility], 1987-08 #### [facility] CLIA [id number] [address] Monocytes (Bld) [#/Vol] 0.12 10*3/uL Normal <0.87 [facility] Comment on above: Order Comment: Speci men Type: BLOOD SPECIMEN Performed By: #### 2 4320-2, [facility], 1987-08 #### [facility] CLIA [id number] [address] Monocytes/100 WBC (Bld) 4.2 % Normal [facility] Comment on above: Order Comment: Speci men Type: BLOOD SPECIMEN Performed By: #### 2 4320-05, [facility], 1987-08 #### [facility] CLIA [id number] [address] Neutrophils (Bld) [#/Vol] 2.40 10*3/uL Normal 1.45-7.50 [facility] Comment on above: Order Comment: Speci men Type: BLOOD SPECIMEN Performed By: #### 2 4320-05, [facility], 1987-08 #### [facility] CLIA [id number] [address] Neutrophils/100 WBC (Bld) 84.2 % Normal [facility] Comment on above: Order Comment: Speci men Type: BLOOD SPECIMEN Performed By: #### 2 4320-2, [facility], 1987-08 #### [facility] CLIA [id number] [address] Nucleated RBC (Bld) [#/Vol] 10*3/uL Normal <0.01 [facility] Comment on above: Order Comment: Speci men Type: BLOOD SPECIMEN Performed By: #### 2 4320-2, [facility], 1987-08 #### [facility] CLIA [id number] [address] Nucleated RBC/100 WBC (Bld) [Ratio] 0.0 /[address] [facility] Comment on above: Order Comment: Speci men Type: BLOOD SPECIMEN Performed By: #### 2 4320-05, [facility], 1987-08 #### [facility] CLIA [id number] [address] Platelet mean volume (Bld) [Entitic vol] 9.2 fL Normal 9.0-12.7 [facility] Comment on above: Order Comment: Speci men Type: BLOOD SPECIMEN Performed By: #### 2 4320-05, [facility], 1987-08 #### [facility] CLIA [id number] [address] Platelets (Bld) [#/Vol] 97 10*3/uL Low 150-400 [facility] Comment on above: Order Comment: Speci men Type: BLOOD SPECIMEN Performed By: #### 2 4320-05, [facility], 1987-08 #### [facility] CLIA [id number] [address] RBC (Bld) [#/Vol] 4.98 10*6/uL Normal 4.20-6.00 [facility] Comment on above: Order Comment: Speci men Type: BLOOD SPECIMEN Performed By: #### 2 4320-05, [facility], 1987-08 #### [facility] CLIA [id number] [address] WBC (Bld) [#/Vol] 2.85 10*3/uL Low 3.70-11.00 [facility] Comment on above: Order Comment: Speci men Type: BLOOD SPECIMEN Performed By: #### 2 4320-05, [facility], 1987-08 #### [facility] CLIA [id number] [address] Basophils (Bld) [#/Vol] 10*3/uL Normal <0.11 [facility] Comment on above: Order Comment: Speci men Type: BLOOD SPECIMEN Performed By: #### 2 4320-05, [facility], 1987-08 #### [facility] CLIA [id number] [address] Basophils/100 WBC (Bld) 0.3 % Normal [facility] Comment on above: Order Comment: Speci men Type: BLOOD SPECIMEN Performed By: #### 2 4320-05, [facility], 1987-08 #### [facility] CLIA [id number] [address] Differential cell count method Nom (Bld) Auto Normal [facility] Comment on above: Order Comment: Speci men Type: BLOOD SPECIMEN Performed By: #### 2 4320-05, [facility], 1987-08 #### [facility] CLIA [id number] [address] Eosinophils (Bld) [#/Vol] 10*3/uL Normal <0.46 [facility] Comment on above: Order Comment: Speci men Type: BLOOD SPECIMEN Performed By: #### 2 4320-05, [facility], 1987-08 #### [facility] CLIA [id number] [address] Eosinophils/100 WBC (Bld) 0.0 % Normal [facility] Comment on above: Order Comment: Speci men Type: BLOOD SPECIMEN Performed By: #### 2 4320-05, [facility], 1987-08 #### [facility] CLIA [id number] [address] Erythrocyte distribution width (RBC) [Ratio] 12.1 % Normal 11.5-15.0 [facility] Comment on above: Order Comment: Speci men Type: BLOOD SPECIMEN Performed By: #### 2 4320-05, [facility], 1987-08 #### [facility] CLIA [id number] [address] Hematocrit (Bld) [Volume fraction] 42.0 % Normal 39.0-51.0 [facility] Comment on above: Order Comment: Speci men Type: BLOOD SPECIMEN Performed By: #### 2 4320-05, [facility], 1987-08 #### [facility] CLIA [id number] [address] Hemoglobin (Bld) [Mass/Vol] 14.3 g/dL Normal 13.0-17.0 [facility] Comment on above: Order Comment: Speci men Type: BLOOD SPECIMEN Performed By: #### 2 4320-05, [facility], 1987-08 #### [facility] CLIA [id number] [address] IMMATURE GRAN % 0.7 % Normal [facility] Comment on above: Order Comment: Speci men Type: BLOOD SPECIMEN Performed By: #### 2 4320-05, [facility], 1987-08 #### [facility] CLIA [id number] [address] IMMATURE GRAN ABS <0.03 Normal <0.10 [facility] Comment on above: Order Comment: Speci men Type: BLOOD SPECIMEN Performed By: #### 2 4320-05, [facility], 1987-08 #### [facility] CLIA [id number] [address] Lymphocytes (Bld) [#/Vol] 0.18 10*3/uL Low 1.00-4.00 [facility] Comment on above: Order Comment: Speci men Type: BLOOD SPECIMEN Performed By: #### 2 4320-05, [facility], 1987-08 #### [facility] CLIA [id number] [address] Lymphocytes/100 WBC (Bld) 5.9 % Normal [facility] Comment on above: Order Comment: Speci men Type: BLOOD SPECIMEN Performed By: #### 2 4320-05, [facility], 1987-08 #### [facility] CLIA [id number] [address] MCH (RBC) [Entitic mass] 29.9 pg Normal 26.0-34.0 [facility] Comment on above: Order Comment: Speci men Type: BLOOD SPECIMEN Performed By: #### 2 4320-05, [facility], 1987-08 #### [facility] CLIA [id number] [address] MCHC (RBC) [Mass/Vol] 34.0 g/dL Normal 30.5-36.0 [facility] Comment on above: Order Comment: Speci men Type: BLOOD SPECIMEN Performed By: #### 2 4320-05, [facility], 1987-08 #### [facility] CLIA [id number] [address] MCV (RBC) [Entitic vol] 87.7 fL Normal 80.0-100.0 [facility] Comment on above: Order Comment: Speci men Type: BLOOD SPECIMEN Performed By: #### 2 4320-05, [facility], 1987-08 #### [facility] CLIA [id number] [address] Monocytes (Bld) [#/Vol] 0.25 10*3/uL Normal <0.87 [facility] Comment on above: Order Comment: Speci men Type: BLOOD SPECIMEN Performed By: #### 2 4320-05, [facility], 1987-08 #### [facility] CLIA [id number] [address] Monocytes/100 WBC (Bld) 8.2 % Normal [facility] Comment on above: Order Comment: Speci men Type: BLOOD SPECIMEN Performed By: #### 2 4320-05, [facility], 1987-08 #### [facility] CLIA [id number] [address] Neutrophils (Bld) [#/Vol] 2.59 10*3/uL Normal 1.45-7.50 [facility] Comment on above: Order Comment: Speci men Type: BLOOD SPECIMEN Performed By: #### 2 4320-05, [facility], 1987-08 #### [facility] CLIA [id number] [address] Neutrophils/100 WBC (Bld) 84.9 % Normal [facility] Comment on above: Order Comment: Speci men Type: BLOOD SPECIMEN Performed By: #### 2 4320-, [facility], 1987-08 #### [facility] CLIA [id number] [address] Nucleated RBC (Bld) [#/Vol] 10*3/uL Normal <0.01 [facility] Comment on above: Order Comment: Speci men Type: BLOOD SPECIMEN Performed By: #### 2 4320-2, [facility], 1987-08 #### [facility] CLIA [id number] [address] Nucleated RBC/100 WBC (Bld) [Ratio] 0.0 /[address] [facility] Comment on above: Order Comment: Speci men Type: BLOOD SPECIMEN Performed By: #### 2 2, [facility], 1987-08 #### [facility] CLIA [id number] [address] Platelet mean volume (Bld) [Entitic vol] 9.3 fL Normal 9.0-12.7 [facility] Comment on above: Order Comment: Speci men Type: BLOOD SPECIMEN Performed By: #### 2 4320-05, [facility], 1987-08 #### [facility] CLIA [id number] [address] Platelets (Bld) [#/Vol] 84 10*3/uL Low 150-400 [facility] Comment on above: Order Comment: Speci men Type: BLOOD SPECIMEN Result Comment: Plat elet count confirmed by manual review of peripheral blood smear Performed By: #### 2 4320-2, [facility], 1987-08 #### [facility] CLIA [id number] [address] RBC (Bld) [#/Vol] 4.79 10*6/uL Normal 4.20-6.00 [facility] Comment on above: Order Comment: Speci men Type: BLOOD SPECIMEN Performed By: #### 2 4320-, [facility], 1987-08 #### [facility] CLIA [id number] [address] WBC (Bld) [#/Vol] 3.05 10*3/uL Low 3.70-11.00 [facility] Comment on above: Order Comment: Speci men Type: BLOOD SPECIMEN Performed By: #### 2 4320-2, [facility], 1987-08 #### [facility] CLIA [id number] [address] CRP SerPl-mCncon 02-15-2021 CRP [Mass/Vol] 0.5 mg/dL Normal <0.9 [facility] Comment on above: Order Comment: Speci men Type: BLOOD SPECIMEN Performed By: #### 2 4320-, [facility], 1987-08 #### [facility] CLIA [id number] [address] Comprehensive metabolic 2000 panelon 02-15-2021 Albumin [Mass/Vol] 3.9 g/dL Normal 3.9-4.9 [facility] Comment on above: Order Comment: Speci men Type: BLOOD SPECIMEN Performed By: #### 2 4320-05, [facility], 1987-08 #### [facility] CLIA [id number] [address] ALP [Catalytic activity/Vol] 95 U/L Normal 38-113 [facility] Comment on above: Order Comment: Speci men Type: BLOOD SPECIMEN Performed By: #### 2 4320-2, [facility], 1987-08 #### [facility] CLIA [id number] [address] ALT With P-5'-P [Catalytic activity/Vol] 61 U/L High 10-54 [facility] Comment on above: Order Comment: Speci men Type: BLOOD SPECIMEN Performed By: #### 2 4320-2, [facility], 1987-08 #### [facility] CLIA [id number] [address] Anion gap [Moles/Vol] 13 mmol/L Normal 9-18 [facility] Comment on above: Order Comment: Speci men Type: BLOOD SPECIMEN Performed By: #### 2 4320-2, [facility], 1987-08 #### [facility] CLIA [id number] [address] AST With P-5'-P [Catalytic activity/Vol] 70 U/L High 14-40 [facility] Comment on above: Order Comment: Speci men Type: BLOOD SPECIMEN Performed By: #### 2 4320-2, [facility], 1987-08 #### [facility] CLIA [id number] [address] Bilirubin [Mass/Vol] 2.3 mg/dL High 0.2-1.3 [facility] Comment on above: Order Comment: Speci men Type: BLOOD SPECIMEN Performed By: #### 2 4320-2, [facility], 1987-08 #### [facility] CLIA [id number] [address] Calcium [Mass/Vol] 8.4 mg/dL Low 8.5-10.2 [facility] Comment on above: Order Comment: Speci men Type: BLOOD SPECIMEN Performed By: #### 2 4320-05, [facility], 1987-08 #### [facility] CLIA [id number] [address] Chloride [Moles/Vol] 97 mmol/L Normal 97-105 [facility] Comment on above: Order Comment: Speci men Type: BLOOD SPECIMEN Performed By: #### 2 2, [facility], 1987-08 #### [facility] CLIA [id number] [address] STATES OF [facility] CO2 [Moles/Vol] 21 mmol/L Low 22-30 [facility] Comment on above: Order Comment: Speci men Type: BLOOD SPECIMEN Performed By: #### 2 4320-2, [facility], 1987-08 #### [facility] CLIA [id number] [address] [place] Creatinine [Mass/Vol] 0.98 mg/dL Normal 0.73-1.22 [facility] Comment on above: Order Comment: Speci men Type: BLOOD SPECIMEN Performed By: #### 2 4321-2, [facility], 1987-08 #### [facility] CLIA [id number] [address] [place] GFR/1.73 sq M.predicted MDRD (S/P/Bld) [Vol rate/Area] mL/min/{1.73_m2} Normal [facility] Comment on above: Order Comment: Speci men Type: BLOOD SPECIMEN Result Comment: >60 eGFR (Estimated GFR) Units of measure: mL/min/1.73 meters squared eGFR is derived from the reexpressed MDRD Study equation using the following parameters: serum creatinine, age, gender and race. The creatinine assay has been calibrated to be traceable to IDMS. An eGFR <60 mL/min/1.73m2 for >3 months is consistent with chronic kidney disease. Refer to KDOQI guidelines for clinical interpretation. In patients with unstable renal function, e.g. those with acute kidney injury, the eGFR may not accurately reflect actual GFR. Performed By: #### 2 4321-2, [facility], 1987-08 #### [facility] CLIA [id number] [address] [place] Glucose [Mass/Vol] 128 mg/dL High 74-99 [facility] Comment on above: Order [facility]: [facility] Type: BLOOD SPECIMEN Result Comment: The [place] Diabetes [employer] (ADA) provides guidance for cutoff values for fasting glucose and random glucose. The ADA defines fasting as no caloric intake for at least 8 hours. Fasting plasma glucose results between 100 to 125 mg/dL indicate increased risk for diabetes (prediabetes). Fasting plasma glucose results greater than or equal to 126 mg/dL meet the criteria for diagnosis of diabetes. In the absence of unequivocal hyperglycemia, results should be confirmed by repeat testing. In a patient with classic symptoms of hyperglycemia or hyperglycemic crisis, random plasma glucose results greater than or equal to 200 mg/dL meet the criteria for diagnosis of diabetes. Reference: Standards of Medical Care in Diabetes 2016, [place] [employer]. Diabetes Care. 2016.39(Suppl 1). Performed By: #### 2 4320-2, [facility], 1987-08 #### [facility] CLIA [id number] [address] Potassium [Moles/Vol] 3.9 mmol/L Normal 3.7-5.1 [facility] Comment on above: Order Comment: Speci men Type: BLOOD SPECIMEN Performed By: #### 2 4320-2, [facility], 1987-08 #### [facility] CLIA [id number] [address] Protein [Mass/Vol] 6.2 g/dL Low 6.3-8.0 [facility] Comment on above: Order Comment: Speci men Type: BLOOD SPECIMEN Performed By: #### 2 4320-2, [facility], 1987-08 #### [facility] CLIA [id number] [address] Sodium [Moles/Vol] 131 mmol/L Low 136-144 [facility] Comment on above: Order Comment: Speci men Type: BLOOD SPECIMEN Performed By: #### 2 4320-2, [facility], 1987-08 #### [facility] CLIA [id number] [address] Urea nitrogen [Mass/Vol] 9 mg/dL Normal 9-24 [facility] Comment on above: Order Comment: Speci men Type: BLOOD SPECIMEN Performed By: #### 2 4320-2, [facility], 1987-08 #### [facility] CLIA [id number] [address] D dimer FEU PPP-mCncon 02-15 Fibrin D-dimer FEU (PPP) [Mass/Vol] 590 ng/mL FEU High <500 [facility] Comment on above: Order Comment: Speci men Type: BLOOD SPECIMEN Performed By: #### 4 8065-7 #### [facility] CLIA [id number] [address] ED NOTEon 02-15-2021 ED NOTE HNO ID: [id number] Author: Lalitha Santos RN Service: ? Author Type: Registered Nurse Type: ED Notes Filed: 02/15/2021 7:33 AM Note Text: US tech notified that pt is ready for ordered US. [facility] ED NOTE HNO ID: [id number] Author: Lalitha Santos RN Service: ? Author Type: Registered Nurse Type: ED Notes Filed: 02/15/2021 7:07 AM Note Text: Report received from EMA [place]. Care assumed at this time. Pt remains attached to clinical research monitor and continuous pulse ox [facility] ED NOTE HNO ID: [id number] Author: Joy Segal RN Service: Emergency Medicine Author Type: Registered Nurse Type: ED Notes Filed: 02/15/2021 6:06 AM Note Text: Complete linen change performed [facility] ED NOTE HNO ID: [id number] Author: Angely Hu RN Service: ? Author Type: Registered Nurse Type: ED Notes Filed: 02/14/2021 10:40 PM Note Text: Bed: 19-ED Expected date: 02/14/21 Expected time: 10:28 PM Means of arrival: Serene GUIDO Comments: serene [facility] ED PROV NOTEon 02-15-2021 ED PROV NOTE HNO ID: [id number] Author: Lucas Mcgee DO Service: Emergency Medicine Author Type: Resident Type: ED Provider Notes Filed: 02/15/2021 7:13 AM Note Text: -- Attestation signed by Loretta Daniel MD at 02/15/2021 8:56 AM This patient was boarding in the ED admitted under the inpatient team and managed by them. I did not participate in the care of this patient. Signature: Loretta Daniel MD Date: 02/15/2021 Time: 8:55 AM -- ED Continuation of Care Note February 15, 2021 7:11 AM Shola Martinez was endorsed to me by Julia . The patient initially presented to the ED for nausea with associated lightheadedness. Clinical Course: Patient was found to be Covid positive and leukopenic. The patient received fluid boluses. Plan: The patient is admitted to [facility] [place] at the time of signout ED Course as of 02/15/21710 Others' Documentation e Feb 15, 2021 0024 [place]%: 8.2 [HT] ED Course User Index [HT] Sarah Dumont MD Clinical Impressions as of 02/15/21710 COVID-19 Nausea Lucas Mcgee DO February 15, 2021 7:11 AM Lucas Mcgee DO Resident 02/15/21 0713 Loretta Daniel MD 02/15/[address] [facility] ED PROV NOTE HNO ID: [id number] Author: Danay Gallardo MD Service: Emergency Medicine Author Type: Physician Type: ED Provider Notes Filed: 02/15/2021 12:30 AM Note Text: Attending Note I personally saw and examined the patient. I reviewed the resident's note. I agree with the resident's assessment and plan unless otherwise noted. I was present for the significant portion of the procedure(s). Brief HPI: Shola Martinez is a 70 year old male with a PMH as documented below who presents for evaluation of nausea, weakness, fever. Patient states that over the last 24 hours has become increasingly weak and nauseous. No vomiting. He denies any pain. He had a fever of "101 or 102 tonight". He admits to a nonproductive cough. He feels dehydrated and notes a mild sore throat. No significant headache. No vision changes, focal numbness or weakness. No chest pain. No abdominal pain. He has had some loose stool. He lives independently at home alone. History reviewed. No pertinent past medical history. Physical Exam: - Gen: Unwell but nontoxic appearing, afebrile - CV: Borderline tachycardic with a heart rate around 100 without m/r/g - Pulm: No respiratory distress, CTAB - Neuro: No focal neurologic deficits, AANDOx3 -Abdomen: Soft, nontender, nondistended but limited by body habitus EKG: Pending Plan: Patient arrived with stable vitals afebrile. He was mildly tachycardic. CBC is the only lab that resulted at this time demonstrating leukopenia. Leukopenia in addition to his tachycardia and additionally his reported fever at home activate sepsis alert criteria. Sepsis alert was activated by resident. Additional labs ordered and will empirically treat with Rocephin given his cough with possible pneumonia. Patient appears very weak and dehydrated clinically. Given that he lives independently at home alone I think he will likely require admission. See resident note for disposition details Danay Gallardo MD 02/15/21 0030 [facility] ED PROV NOTE HNO ID: [id number] Author: Sarah Dumont MD Service: Emergency Medicine Author Type: Resident Type: ED Provider Notes Filed: 02/15/2021 6:34 AM Note Text: -- Attestation signed by Danay Gallardo MD at 02/18/2021 11:24 PM Attending Note I evaluated the patient and personally participated in the [place] components. I agree with the resident's findings and plan as documented and have discussed the case and management of the patient's care with the resident. See my note from the same visit for any corrections or additions to resident's note. Signature: Danay Gallardo MD Date: 02/18/2021 Time: 11:23 PM -- ED Provider Note Patient Name: Shola Martinez SERVICE DATE: 02/14/21 History Patient presents with: Nausea AND Vomiting: Pt started having nausea around 1900, pt denies any emesis. Pt was feeling weak when transferring to cot and felt like he could barely walk. -abd pain -CP HPI Patient states that he began to feel nauseous at around 7 pm today with associated lightheadedness. He states that this has happened about 3 times over the past week. It resolved on its own the past 2 times, but his daughter has wanted him to get it checked out. He denies any chest pain or pressure, any new neurologic symptoms, any abdominal pain, or any difficulty breathing. He has noticed fevers over the past couple of days, but denies myalgias. He states that he last ate 2 bananas and toast this afternoon. He had a bowel movement this afternoon which was normal. He denies any urinary frequency or dysuria. He states he has also noticed congestion and a cough productive of clear or yellow sputum over the past few days. He states that his throat feels "raw." He denies any history of heart or lung problems. He reports good compliance with his medications. History reviewed. No pertinent past medical history. History reviewed. No pertinent surgical history. No family history on file. Social History Tobacco Use - Smoking status: Former Smoker - Smokeless tobacco: Not on file Substance and Sexual Activity - Alcohol use: Not Currently - Drug use: Never - Sexual activity: Not on file ALLERGIES No Known Allergies Review of Systems Constitutional: Positive for fatigue and fever. Negative for chills. HENT: Positive for congestion, postnasal drip and sore throat. Negative for hearing loss. Eyes: Negative for pain, discharge and visual disturbance. Respiratory: Positive for cough. Negative for shortness of breath and wheezing. Cardiovascular: Negative for chest pain, palpitations and leg swelling. Gastrointestinal: Positive for nausea. Negative for abdominal pain, constipation, diarrhea and vomiting. Genitourinary: Negative for difficulty urinating, hematuria and urgency. Musculoskeletal: Negative for arthralgias, joint swelling and neck pain. Skin: Negative for color change, rash and wound. Neurological: Positive for light-headedness. Negative for dizziness, syncope and headaches. Psychiatric/Behavioral: Negative for confusion, self-injury and suicidal ideas. All other systems reviewed and are negative. Physical Exam Vitals [02/14/21 2240] BP Pulse Temp Temp src Resp SpO2 Weight Height 108/83 (!) 100 37.2 ?C (99 ?F) Oral 16 98 % -- -- Physical Exam Vitals reviewed. Constitutional: General: He is not in acute distress. HENT: Head: Normocephalic and atraumatic. Right Ear: External ear normal. Left Ear: External ear normal. Nose: Nose normal. Mouth/Throat: Pharynx: Oropharynx is clear. Comments: Dry mucous membranes with saliva throughout mouth, tonsils without erythema but questionable exudate Eyes: Extraocular Movements: Extraocular movements intact. Conjunctiva/sclera: Conjunctivae normal. Cardiovascular: Rate and Rhythm: Regular rhythm. Tachycardia present. Heart sounds: Normal heart sounds. No murmur heard. Pulmonary: Effort: Pulmonary effort is normal. No respiratory distress. Breath sounds: Normal breath sounds. No wheezing or rhonchi. Abdominal: General: Abdomen is flat. There is no distension. Palpations: Abdomen is soft. Tenderness: There is no abdominal tenderness. Musculoskeletal: General: No deformity. Normal range of motion. Cervical back: Normal range of motion. Skin: General: Skin is warm and dry. Capillary Refill: Capillary refill takes less than 2 seconds. Neurological: General: No focal deficit present. Mental Status: He is alert and oriented to person, place, and time. Cranial Nerves: No cranial nerve deficit. Motor: No weakness. Psychiatric: Mood and Affect: Mood normal. Behavior: Behavior normal. Diagnostic Testing ED Labs Ordered and Reviewed - No data to display Procedures ED Course / Clinical Impression ED Course as o (more content not included)... Normal [facility] Fibrin D-dimer FEU (PPP) [Ma ss/Vol]on 02-15-2021 D DIMER AGE-RELATED CUTOFF 710 ng/mL FEU Normal [facility] Comment on above: Order Comment: Speci men Type: BLOOD SPECIMEN Performed By: #### 4 8065-7 #### [facility] CLIA [id number] [address] HEPATIC FUNCTION PNLon 02-15 Albumin [Mass/Vol] 4.0 g/dL Normal 3.9-4.9 [facility] Comment on above: Order Comment: Speci men Type: BLOOD SPECIMEN Performed By: #### 2 4320-2, [facility], 1987-08 #### [facility] CLIA [id number] [address] ALP [Catalytic activity/Vol] 94 U/L Normal 38-113 [facility] Comment on above: Order Comment: Speci men Type: BLOOD SPECIMEN Performed By: #### 2 4320-2, [facility], 1987-08 #### [facility] CLIA [id number] [address] ALT With P-5'-P [Catalytic activity/Vol] 65 U/L High 10-54 [facility] Comment on above: Order Comment: Speci men Type: BLOOD SPECIMEN Performed By: #### 2 4320-2, [facility], 1987-08 #### [facility] CLIA [id number] [address] AST With P-5'-P [Catalytic activity/Vol] 75 U/L High 14-40 [facility] Comment on above: Order Comment: Speci men Type: BLOOD SPECIMEN Performed By: #### 2 4320-05, [facility], 1987-08 #### [facility] CLIA [id number] [address] Bilirubin [Mass/Vol] 1.9 mg/dL High 0.2-1.3 [facility] Comment on above: Order Comment: Speci men Type: BLOOD SPECIMEN Performed By: #### 2 4320-2, [facility], 1987-08 #### [facility] CLIA [id number] [address] Bilirubin.conjugated [Mass/Vol] 0.3 mg/dL High <0.2 [facility] Comment on above: Order Comment: Speci men Type: BLOOD SPECIMEN Performed By: #### 2 4320-2, [facility], 1987-08 #### [facility] CLIA [id number] [address] Protein [Mass/Vol] 6.8 g/dL Normal 6.3-8.0 [facility] Comment on above: Order Comment: Speci men Type: BLOOD SPECIMEN Performed By: #### 2 4320-2, [facility], 1987-08 #### [facility] CLIA [id number] [address] HIGH SENSITIVITY TROPONIN To n 02-15-2021 HIGH SENSITIVITY CARLEEN 24 ng/L High <12 [facility] Comment on above: Order Comment: Speci men Type: BLOOD SPECIMEN Result Comment: When assessing risk for acute coronary syndromes: In patients undergoing blood draw greater than or equal to 2 hours from symptom onset, with history of very low to moderate risk and non-ischemic ECG, an initial hs-Troponin T less than 12 ng/L AND a 1 hour delta hs-Troponin T less than 3 ng/L should be considered very low risk for 30 day MACE. Performed By: #### 2 4320-, [facility], 1987-08 #### [facility] CLIA [id number] [address] HIGH SENSITIVITY CARLEEN 25 ng/L High <12 [facility] Comment on above: Order Comment: Speci men Type: BLOOD SPECIMEN Result Comment: When assessing risk for acute coronary syndromes: In patients undergoing blood draw greater than or equal to 2 hours from symptom onset, with history of very low to moderate risk and non-ischemic ECG, an initial hs-Troponin T less than 12 ng/L AND a 1 hour delta hs-Troponin T less than 3 ng/L should be considered very low risk for 30 day MACE. Performed By: #### 2 4320-2, [facility], 1987-08 #### [facility] CLIA [id number] [address] HISTORY PHYSICALon HISTORY PHYSICAL HNO ID: [id number] Author: Dana Westfall DO Service: Hospital Medicine Author Type: Physician Type: HANDP Filed: 02/15/2021 2:53 PM Note Text: DEPARTMENT OF HOSPITAL MEDICINE HISTORY AND PHYSICAL EXAM SERVICE DATE: 02/15/2021 SERVICE TIME: 2:25 PM Primary Care Physician: Danie Sawyer MD NIGHT AND WEEKEND COVERAGE: ELIZABETH COVERAGE: From 7am - 7pm, please call [phone] After 7pm, please call cross cover pager #[phone] Subjective CHIEF COMPLAINT: Nausea and vomiting HPI: This is a 70 year old male with a history of diabetes, hypertension, hyperlipidemia, BPH, CAD, HFpEF, CKD 2, COPD, sleep apnea who presents with nausea and dry heaving for the last 4 days. Says he had a fever of 101 Fahrenheit at home and a cough productive of sputum. Also has been having some diarrhea which preceded the symptoms. Denies shortness of breath, chest pain, chills, abdominal pain, urinary symptoms. She lives alone and says he was told that he is not allowed to be walking because he is unsteady on his feet. States his niece is a nurse and told him not to get the vaccine. In the ED, his vitals were stable but triggered a sepsis alert so he was given empiric IV ceftriaxone. Given a bolus of IV fluids with improvement of lactate from 2.2 to normal. Was placed on 2 L nasal cannula. Social hx - former alcohol and tobacco use, currently none Family hx - mother diabetes Social History Tobacco Use - Smoking status: Former Smoker - Smokeless tobacco: Not on file Substance Use Topics - Alcohol use: Not Currently - Drug use: Never MEDICATIONS: Reviewed (Not in a hospital admission) ALLERGIES No Known Allergies REVIEW OF SYSTEM: Review of Systems Constitutional: Positive for fever. Negative for chills. HENT: Negative for stridor. Eyes: Negative for blurred vision. Cardiovascular: Negative for chest pain. Respiratory: Positive for cough. Negative for shortness of breath. Endocrine: Negative for polyuria. Hematologic/Lymphatic: Negative for bleeding problem. Skin: Negative for rash. Musculoskeletal: Negative for falls. Gastrointestinal: Positive for diarrhea and nausea. Genitourinary: Negative for hematuria. Neurological: Negative for seizures. Psychiatric/Behavioral: Negative for altered mental status. Allergic/Immunologic: Negative for persistent infections. Objective PHYSICAL EXAM: BP 129/70 Pulse 89 Temp (Src) 99 (Oral) Resp 20 SpO2 99% O2 Therapy: Nasal Cannula, Liters: 2 Physical Exam Constitutional: General: He is not in acute distress. HENT: Head: Normocephalic and atraumatic. Mouth/Throat: Mouth: Mucous membranes are moist. Eyes: Conjunctiva/sclera: Conjunctivae normal. Pupils: Pupils are equal, round, and reactive to light. Cardiovascular: Rate and Rhythm: Normal rate and regular rhythm. Pulmonary: Effort: Pulmonary effort is normal. Breath sounds: Normal breath sounds. No wheezing. Abdominal: General: Bowel sounds are normal. There is no distension. Palpations: Abdomen is soft. Tenderness: There is no abdominal tenderness. Musculoskeletal: General: No swelling or tenderness. Cervical back: Neck supple. Skin: General: Skin is warm and dry. Neurological: General: No focal deficit present. Mental Status: He is alert. Psychiatric: Mood and Affect: Mood normal. Lines, Drains, and Airways Line Peripheral 02/15/21 0621 Short Left Antecubital 20 Gauge <1 day Drain External Collection Device 02/15/21 0606 <1 day DATA: Diagnostic tests reviewed for today's visit: Most recent labs and imaging results. Assessment/Plan Acute hypoxic respiratory failure 2/2 COVID-19 PNA Sepsis -lactate 2.2 --> normal with IVFs. UA not suggestive of infection -will check blood cx x2 -cont dexamethasone (02/15- ) -check inflammatory markers, procalcitonin -hold off on remdesivir for now since COVID appears mild -incentive spirometry, BD -wean O2 -daily CBC and CMP -needs PT/OT eval Transaminitis -liver enzymes from 01/30 were normal, suspect this is related to COVID -right upper quadrant ultrasound suggesting hepatic steatosis -Continue to monitor -hold statin for now Leukopenia Acute on chronic thrombocytopenia -cont to monitor, might be related to covid Chronic diastolic heart failure: Not decompensated, continue losartan and imdur Diabetes: Sliding scale insulin, hold home oral glycemics Hypertension: Continue losartan and imdur CAD: cont ASA and plavix Hyperlipidemia: hold statin due to transaminitis, likely can restart tomorrow if downtrending Medication and Non-Pharmacologic VTE Prophylaxis/Anticoagulants Anticoagulant AND Antiplatelet Medications (From admission, onward) Start Dose Route Frequency Last Action Ordered Stop 02/15/21 1430 aspirin 81 mg chewable tab(s) 81 mg ORAL DAILY Ordered 11/16/21 1421 -- 02/15/21 1430 clopidogrel 75 mg tab(s) (PLAVIX) 75 mg ORAL DAILY Ordered 02/15/21 14 (more content not included)... Normal [facility] Lactate (Bld) [Moles/Vol]on 02-15-2021 Lactate [Moles/Vol] 2.2 mmol/L Normal 0.5-2.2 [facility] Comment on above: Order Comment: Speci men Type: BLOOD SPECIMEN Performed By: #### 3 2693-4 #### [facility] CLIA [id number] [address] PROCALCITONIN (LAB)on 2020 Procalcitonin [Mass/Vol] 0.11 ng/mL High <0.09 [facility] Comment on above: Order Comment: Speci men Type: BLOOD SPECIMEN Result Comment: For a guided interpretation of test results, please visit the Change in Procalcitonin Calculator, [email or web address]. Performed By: #### P ROCAL #### [facility] CLIA [id number] [address] [place] PT panel Coag (PPP)on 2020 INR Coag (PPP) [Relative time] 1.0 {INR} Normal 0.9-1.3 [facility] Comment on above: Order Comment: Speci [facility] Type: BLOOD SPECIMEN Result Comment: Luciana min K Antagonist (VKA) Therapeutic Range: INR 2 to 3 (Target INR of 2.5) Note: For patients treated with VKA drugs, such as warfarin, the [place] [employer] 2012 Guideline recommends a therapeutic INR range of 2 to 3 (target INR of 2.5). This recommendation includes high-risk patients with antiphospholipid syndrome with previous arterial or venous thromboembolism, current-generation mechanical or bioprosthetic aortic heart valve replacement. Note: Patients with mechanical aortic valve replacement and additional risk factors for thromboembolic events (atrial fibrillation, previous thromboembolism, LV dysfunction, hypercoagulable conditions) or an older generation mechanical AVR (i.e., ball in-Cage) or any mechanical MVR should have a INR therapeutic range of 2.5 to 3.5 (target INR of 3). Casey JIANG, et al. Chest 2012, 141:7S-47S Andres RA, et al. JACC 2017, 70: 252-289 Performed By: #### 2 432-2, [facility], 1987-08 #### [facility] CLIA [id number] [address] OF [facility] PT Coag (PPP) [Time] 11.4 s Normal 9.7-13.0 [facility] Comment on above: Order Comment: Speci men Type: BLOOD SPECIMEN Performed By: #### 2 432-2, [facility], 1987-08 #### [facility] CLIA [id number] 1 [address] [address] [facility] US ABD RIGHT UPPER QUADRANTo n 02-15-2021 US ABD RIGHT UPPER QUADRANT * * *Final Report* * * DATE OF EXAM: Feb 15 2021 12:39PM [place] 1032 - US ABD RIGHT UPPER QUADRANT / PROCEDURE REASON: Abn liver function tests (LFTs) * * * * Physician Interpretation * * * * EXAMINATION: RIGHT UPPER QUADRANT ULTRASOUND CLINICAL HISTORY: Abnormal LFTs TECHNIQUE: Sonography of the right upper quadrant was performed. Images were obtained and stored in a permanent archive. MQ: [id number] COMPARISON: CT abdomen and pelvis 11/28/2012. RESULT: Pancreas: Not visualized Liver: Echotexture: Normal, homogeneous. Echogenicity: increased echogenicity of the liver parenchyma with decreased visualization of the portal triads, suggesting diffuse fatty infiltration although the evaluation is degraded due to poor acoustic window as already noted on 10/2012. Surface contour: Smooth Lesions: None. Biliary: No intrahepatic biliary duct dilation. CBD: 0.4 cm at the hilum. Gallbladder: Cholecystectomy. Right Kidney: No hydronephrosis. Ascites: None. IMPRESSION: 1. Cholecystectomy. No biliary ductal dilation. 2. Suggestion of hepatic steatosis. Engineer Systems: MADDIE Transcribe Date/Time: Feb 15 2021 1:04P Dictated by : TAMIKO VACA MD This examination was interpreted and the report reviewed and electronically signed by: TAMIKO VACA MD on Feb 15 2021 1:07PM EST [id number] Normal [facility] Urinalysis complete panel (U )on 02-15-2021 Bacteria LM.HPF (Urine sed) [#/Area] None Seen Normal None Seen [facility] Comment on above: Order Comment: Speci men Type: BLOOD SPECIMEN Performed By: #### 2 4320-05, [facility], 1987-08 #### [facility] CLIA [id number] [address] Bilirubin Ql (U) Negative Normal Negative [facility] Comment on above: Order Comment: Speci men Type: BLOOD SPECIMEN Performed By: #### 2 4320-05, [facility], 1987-08 #### [facility] CLIA [id number] [address] Clarity (Unsp spec) Clear Normal Clear [facility] Comment on above: Order Comment: Speci men Type: BLOOD SPECIMEN Performed By: #### 2 4320-05, [facility], 1987-08 #### [facility] CLIA [id number] [address] Color (U) Yellow Normal Yellow [facility] Comment on above: Order Comment: Speci men Type: BLOOD SPECIMEN Performed By: #### 2 4320-05, [facility], 1987-08 #### [facility] CLIA [id number] [address] Epithelial cells LM.HPF (Urine sed) [#/Area] 0.3 /[HPF] Normal [facility] Comment on above: Order Comment: Speci men Type: BLOOD SPECIMEN Performed By: #### 2 4320-05, [facility], 1987-08 #### [facility] CLIA [id number] [address] Glucose Test strip (U) [Mass/Vol] Negative Normal Negative [facility] Comment on above: Order Comment: Speci men Type: BLOOD SPECIMEN Performed By: #### 2 4320-05, [facility], 1987-08 #### [facility] CLIA [id number] [address] Hemoglobin Ql (U) Negative Normal Negative [facility] Comment on above: Order Comment: Speci men Type: BLOOD SPECIMEN Performed By: #### 2 4320-05, [facility], 1987-08 #### [facility] CLIA [id number] [address] Hyaline casts (Urine sed) [#/Area] 0 /[LPF] Normal 0 /LPF [facility] Comment on above: Order Comment: Speci men Type: BLOOD SPECIMEN Performed By: #### 2 4320-, [facility], 1987-08 #### [facility] CLIA [id number] [address] Ketones Ql (U) 15 mg/dL Abnormal Negative [facility] Comment on above: Order Comment: Speci men Type: BLOOD SPECIMEN Performed By: #### 2 4320-05, [facility], 1987-08 #### [facility] CLIA [id number] [address] Leukocyte esterase Test strip Ql (U) Negative Normal Negative [facility] Comment on above: Order Comment: Speci men Type: BLOOD SPECIMEN Performed By: #### 2 4320-05, [facility], 1987-08 #### [facility] CLIA [id number] [address] Nitrite Ql (U) Negative Normal Negative [facility] Comment on above: Order Comment: Speci men Type: BLOOD SPECIMEN Performed By: #### 2 4320-05, [facility], 1987-08 #### [facility] CLIA [id number] [address] pH (U) 5.5 [pH] Normal 5.0-8.0 [facility] Comment on above: Order Comment: Speci men Type: BLOOD SPECIMEN Performed By: #### 2 4320-, [facility], 1987-08 #### [facility] CLIA [id number] [address] Protein (U) [Mass/Vol] Negative Normal Negative [place] Comment on above: Order Comment: Speci men Type: BLOOD SPECIMEN Performed By: #### 2 4320-2, [facility], 1987-08 #### [facility] CLIA [id number] [address] RBC LM.HPF (Urine sed) [#/Area] 6-10 /HPF Abnormal 0-3 /HPF [facility] Comment on above: Order Comment: Speci men Type: BLOOD SPECIMEN Performed By: #### 2 4320-2, [facility], 1987-08 #### [facility] CLIA [id number] [address] Specific gravity (U) [Rel density] 1.023 Normal 1.005-1.[address] [facility] Comment on above: Order Comment: Speci men Type: BLOOD SPECIMEN Performed By: #### 2 4320-2, [facility], 1987-08 #### [facility] CLIA [id number] [address] Urobilinogen Ql (U) 0.2 EU/dL Normal 0.2-1.0 EU/dL [facility] Comment on above: Order Comment: Speci men Type: BLOOD SPECIMEN Performed By: #### 2 4320-2, [facility], 1987-08 #### [facility] CLIA [id number] [address] WBC LM.HPF (Urine sed) [#/Area] 0-5 /HPF Normal 0-5 /HPF [facility] Comment on above: Order Comment: Speci men Type: BLOOD SPECIMEN Performed By: #### 2 4320-05, [facility], 1987-08 #### [facility] CLIA [id number] [address] XR CHEST 2V FRONTAL/LATon XR CHEST 2V FRONTAL/LAT * * *Final Repor t* * * DATE OF EXAM: Feb 14 2021 11:49PM AKX 5291 - XR CHEST 2V FRONTAL/LAT / PROCEDURE REASON: Cough, new onset * * * * Physician Interpretation * * * * EXAMINATION: CHEST RADIOGRAPH (2 VIEW FRONTAL and LATERAL) CLINICAL HISTORY: Cough, new onset, Fatigue and malaise, Tachycardia MQ: [id number]_6 EXAM DATE/TIME: 02/14/2021 11:49 PM COMPARISON: Chest radiograph 12/04/2012 RESULT: Lines, tubes, and devices: None. Lungs and pleura: Unchanged right hemidiaphragmatic eventration. No pneumothorax, pleural effusion or consolidative airspace disease. Cardiomediastinal silhouette: Stable cardiomediastinal contours. Bones and soft tissues: Thoracic spondylosis.. IMPRESSION: No focal pneumonia or any other acute cardiopulmonary abnormality. Engineer Systems: PSCB Transcribe Date/Time: Feb 15 2021 12:36A Dictated by : JAIR GARIBAY MD This examination was interpreted and the report reviewed and electronically signed by: JAIR GARIBAY MD on Feb 15 2021 12:37AM EST [id number] Normal [facility] aPTT PPPon 02-15-2021 aPTT Coag (PPP) [Time] 27.9 s Normal 23.0-32.4 [place] Comment on above: Order Comment: Speci men Type: BLOOD SPECIMEN Performed By: #### 2 4321-2, [facility], 1987- #### [facility] CLIA [id number] [address] [facility] Basic Metabolic Panelon 11-0 Calcium [Mass/Vol] 8.5 mg/dL Normal 8.4-10.4 [facility] Comment on above: Performed By: #### B GLU #### [facility] [address] [place] [address] Glucose [Mass/Vol] 103 mg/dL High 70-100 [facility] Comment on above: Performed By: #### B GLU #### [facility] [address] [place] [address] Urea nitrogen [Mass/Vol] 12 mg/dL Normal 7-17 [facility] Comment on above: Performed By: #### B GLU #### [facility] [address] [place] [address] Anion gap [Moles/Vol] 5 mmol/L Normal 3-13 [facility] Comment on above: Performed By: #### B GLU #### [facility] [address] [place] [address] CO2 [Moles/Vol] 23 mmol/L Normal 22-30 [facility] Comment on above: Performed By: #### B GLU #### [facility] [address] [place] [address] Creatinine [Mass/Vol] 0.90 mg/dL Normal 0.52-1.25 [facility] Comment on above: Performed By: #### B GLU #### [facility] [address] [place] [address] GFR/1.73 sq M.predicted among blacks MDRD (S/P/Bld) [Vol rate/Area] mL/min/{1.73_m2} Normal >60 [facility] Comment on above: Performed By: #### B GLU #### [facility] [address] [place] [address] GFR/1.73 sq M.predicted among non-blacks MDRD (S/P/Bld) [Vol rate/Area] 85.4 mL/min/{1.73_m2} Normal >60 [facility] Comment on above: Result Comment: KDIG O guidelines provide the following GFR categories: Stage GFR(ml/min/1.73 m2) Terms G1 >=90 Normal or high G2 60-89 Mildly decreased* G3a 45-59 Mildly to moderately decreased G3b 30-44 Moderately to severely decreased G4 15-29 Severely decreased G5 <15 Kidney failure *Relative to young adult level. In the absence of evidence of kidney damage, neither GFR category G1 nor G2 fulfill the criteria for CKD. The CKD-EPI equation is validated in individuals 18 years of age and older. Currently the best equation for estimating glomerular filtration rate (GFR) from serum creatinine in children is the Bedside Long equation. It is less accurate in patients with extremes of muscle mass, restriction of dietary protein, ingestion of creatine, extra-renal metabolism of creatinine, or treatment with medications that affect renal tubular creatinine secretion. Performed By: #### B GLU #### [facility] [address] [place] [address] Chloride [Moles/Vol] 106 mmol/L Normal 98-107 [facility] Comment on above: Performed By: #### B GLU #### [facility] [address] [place] [address] Potassium [Moles/Vol] 3.8 mmol/L Normal 3.5-5.1 [facility] Comment on above: Performed By: #### B GLU #### [facility] [address] [place] [address] Sodium [Moles/Vol] 134 mmol/L Low 135-145 [facility] Comment on above: Performed By: #### B GLU #### [facility] [address] [place] [address] Basic Metabolic Panel w/ Ref steve to MGOrdered By: Elyse Whitney on 02-01-2021 Anion gap [Moles/Vol] 5 mmol/L 3 - 13 mmol/L [facility] Work Phone: Calcium [Mass/Vol] 8.5 mg/dL 8.4 - 10. 4 mg/dL [facility] Work Phone: Chloride [Moles/Vol] 106 mmol/L 98 - 10 7 mmol/L [facility] Work Phone: CO2 [Moles/Vol] 23 mmol/L 22 - 30 mmol/L [facility] Work Phone: [phone] Creatinine [Mass/Vol] 0.9 mg/dL 0.52 - 1.25 mg/dL [facility] Work Phone: EGFR IF NonAfrican [place]er 85.4 mL/min >60 [facility] Work Phone: Comment on above: KDIGO guidelines pro vide the following GFR categories: Stage GFR(ml/min/1.73 m2) Terms G1 >=90 Normal or high G2 60-89 Mildly decreased* G3a 45-59 Mildly to moderately decreased G3b 30-44 Moderately to severely decreased G4 15-29 Severely decreased G5 <15 Kidney failure *Relative to young adult level. In the absence of evidence of kidney damage, neither GFR category G1 nor G2 fulfill the criteria for CKD. The CKD-EPI equation is validated in individuals 18 years of age and older. Currently the best equation for estimating glomerular filtration rate (GFR) from serum creatinine in children is the Bedside Long equation. It is less accurate in patients with extremes of muscle mass, restriction of dietary protein, ingestion of creatine, extra-renal metabolism of creatinine, or treatment with medications that affect renal tubular creatinine secretion. GFR/1.73 sq M.predicted among blacks MDRD (S/P/Bld) [Vol rate/Area] mL/min/{1.73_m2} >60 mL/min [facility] Work Phone: Glucose [Mass/Vol] 103 mg/dL High 70 - 100 mg/dL [facility] Work Phone: Interpretation and review of laboratory results Abnormal [facility] Work Phone: Potassium [Moles/Vol] 3.8 mmol/L 3.5 - 5.1 mmol/L [facility] Work Phone: Sodium [Moles/Vol] 134 mmol/L Low 135 - 145 mmol/L [facility] Work Phone: Urea nitrogen (BldV) [Mass/Vol] 12 mg/dL 7 - 17 mg/dL [facility] Work Phone: Test Performed by [facility], [address] [place] [id number] [facility] Work Phone: [employer] Work Phone: CBC Auto DifferentialOrdered By: Elyse Whitney on 02-01-2021 Absolute Baso # 0.0 10*3/uL 0.0 - 0.2 10*3/uL [facility] Work Phone: Absolute Neut # 3.3 10*3/uL 1.8 - 7.0 10*3/uL [facility] Work Phone: 222 Basophils/100 WBC (Bld) 0.6 % 0.0 - 2.0 % [facility] Work Phone: Eosinophils (Bld) [#/Vol] 0.1 10*3/uL 0.0 - 0.5 10*3/uL [facility] Work Phone: 222 Eosinophils/100 WBC (Bld) 2.7 % 1.0 - 6.0 % [facility] Work Phone: 222 Granulocytes/100 WBC (Bld) 64.2 % 40.0 - 80.0 % [facility] Work Phone: [phone] Hematocrit (Bld) [Volume fraction] 41.7 % 40.0 - 52.0 % [employer] Work Phone: [phone] Hemoglobin.gastrointest inal spec 1 Ql (Stl) 14.0 g/dL 13.0 - 18.0 g/dL [employer] Work Phone: [phone] Interpretation and review of laboratory results Abnormal [employer] Work Phone: 1) 222 Lymphocytes (Bld) [#/Vol] 1.3 10*3/uL 1.0 - 4.3 10*3/uL [employer] Work Phone: 1) 222 Lymphocytes/100 WBC (Bld) 24.9 % 20.0 - 40.0 % [employer] Work Phone: 1) 222 MCH (RBC) [Entitic mass] 29.9 pg 26.0 - 34.0 pg [employer] Work Phone: 1) 222 MCHC (RBC) [Mass/Vol] 33.6 % 32.0 - 36.0 % [employer] Work Phone: 1) 222 MCV (RBC) [Entitic vol] 89.0 fL 80.0 - 98.0 fL [employer] Work Phone: 1) 222 Monocytes (Bld) [#/Vol] 0.4 10*3/uL 0.0 - 0.8 10*3/uL [employer] Work Phone: 1) 222 Monocytes/100 WBC (Bld) 7.6 % 2.0 - 10.0 % [employer] Work Phone: 1) 222 Platelet distribution width (Bld) [Ratio] 12.0 % 11.5 - 14.5 % [employer] Work Phone: 1) 222 Platelet mean volume (Bld) [Entitic vol] 7.9 fL 7.4 - 10.4 fL [employer] Work Phone: 1) 222 Platelets (Bld) [#/Vol] 107 10*3/uL Low 140 - 440 10*3/uL [employer] Work Phone: 1) 222 RBC (Bld) [#/Vol] 4.69 10*6/uL 4.40 - 5.90 10*6/uL [facility] Work Phone: WBC (Bld) [#/Vol] 5.2 10*3/uL 3.6 - 10.7 10*3/uL [facility] Work Phone: [phone] Test Performed by [facility], [address] [place] [address] [facility] Work Phone: [facility] Work Phone: Hemogram w/ Autodiffon 02-01 Abs Baso Cnt 0.0 10*3/uL Normal 0.0-0.2 [facility] Comment on above: Performed By: #### B GLU #### [facility] [address] [place] [address] Abs Neutrophile Cnt 3.3 10*3/uL Normal 1.8-7.0 [facility] Comment on above: Performed By: #### B GLU #### [facility] [address] [place] [address] Basophils/100 WBC (Bld) 0.6 % Normal 0.0-2.0 [facility] Comment on above: Performed By: #### B GLU #### [facility] [address] [place] [address] Eosinophils (Bld) [#/Vol] 0.1 10*3/uL Normal 0.0-0.5 [facility] Comment on above: Performed By: #### B GLU #### [facility] [address] [place] [address] Eosinophils/100 WBC (Bld) 2.7 % Normal 1.0-6.0 [facility] Comment on above: Performed By: #### B GLU #### [facility] [address] [place] [address] Erythrocyte distribution width (RBC) [Ratio] 12.0 % Normal 11.5-14.5 [facility] Comment on above: Performed By: #### B GLU #### [facility] [address] [place] [address] Granulocytes/100 WBC (Bld) 64.2 % Normal 40.0-80.0 [facility] Comment on above: Performed By: #### B GLU #### [facility] [address] [place] [address] Hematocrit (Bld) [Volume fraction] 41.7 % Normal 40.0-52.0 [facility] Comment on above: Performed By: #### B GLU #### [facility] [address] [place] [address] Hemoglobin (Bld) [Mass/Vol] 14.0 g/dL Normal 13.0-18.0 [facility] Comment on above: Performed By: #### B GLU #### [facility] [address] [place] [address] Lymphocytes (Bld) [#/Vol] 1.3 10*3/uL Normal 1.0-4.3 [facility] Comment on above: Performed By: #### B GLU #### [facility] [address] [place] [address] Lymphocytes/100 WBC (Bld) 24.9 % Normal 20.0-40.0 [facility] Comment on above: Performed By: #### B GLU #### [facility] [address] [place] [address] MCH (RBC) [Entitic mass] 29.9 pg Normal 26.0-34.0 [facility] Comment on above: Performed By: #### B GLU #### [facility] [address] [place] [address] MCHC 33.6 % Normal 32.0-36.0 [facility] Comment on above: Performed By: #### B GLU #### [facility] [address] [place] [address] MCV (RBC) [Entitic vol] 89.0 fL Normal 80.0-98.0 [facility] Comment on above: Performed By: #### B GLU #### [facility] [address] [place] [address] Monocytes (Bld) [#/Vol] 0.4 10*3/uL Normal 0.0-0.8 [facility] Comment on above: Performed By: #### B GLU #### [facility] [address] [place] [address] Monocytes/100 WBC (Bld) 7.6 % Normal 2.0-10.0 [facility] Comment on above: Performed By: #### B GLU #### [facility] [address] [place] [address] Platelet mean volume (Bld) [Entitic vol] 7.9 fL Normal 7.4-10.4 [facility] Comment on above: Performed By: #### B GLU #### [facility] [address] [place] [address] Platelets (Bld) [#/Vol] 107 10*3/uL Low 140-440 [facility] Comment on above: Performed By: #### B GLU #### [facility] [address] [place] [address] RBC (Bld) [#/Vol] 4.69 10*6/uL Normal 4.40-5.90 [facility] Comment on above: Performed By: #### B GLU #### [facility] [address] [place] [address] WBC (Bld) [#/Vol] 5.2 10*3/uL Normal 3.6-10.7 [facility] Comment on above: Performed By: #### B GLU #### [facility] [employer] [facility] [address] 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 : 1950 Requested By: DENZEL MENDES Order Number: [id number] Reading MD: Magno Meadows Measurements Intervals Mims Rate: 71 P: 39 DC: 184 QRS: -66 QRSD: 120 T: 47 QT: 404 QTc: 439 Interpretive Statements SINUS RHYTHM LEFT ANTERIOR FASCICULAR BLOCK BASELINE WANDER IN LEAD(S) V2 Electronically Signed On 01-31-2021 12:23:30 EDT by Magno Meadows [facility] Work Phone: Mark, [facility] Incoming Cardiology Results From [employer] - 01/31/2021 12:24 PM EDT [facility] Test Date: 2021-01-30 Pat Name: SHOLA MARTINEZ Department: 01 Room: 37 Gender: M 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 : 1950 Requested By: DENZEL MENDES Order Number: [id number] Reading MD: Magno Meadows Measurements Intervals Mims Rate: 71 P: 39 DC: 184 QRS: -66 QRSD: 120 T: 47 QT: 404 QTc: 439 Interpretive Statements SINUS RHYTHM LEFT ANTERIOR FASCICULAR BLOCK BASELINE WANDER IN LEAD(S) V2 Electronically Signed On 01-31-2021 12:23:30 EDT by Magno Meadows [facility] Work Phone: [employer] Work Phone: Lipid Panelon 01-31-2021 Chol/HDL 3 Normal [facility] Comment on above: Result Comment: Ref Range: < 3 Low Risk for CHD 3-6 Mod Risk for CHD > 6 High Risk for CHD Performed By: #### B GLU #### [facility] [address] [place] [address] Cholesterol in HDL [Mass/Vol] 24 mg/dL Low 40-60 [facility] Comment on above: Performed By: #### B GLU #### [facility] [address] [place] [address] Low Density Lipoprotein 14 mg/dL Normal <100 [facility] Comment on above: Performed By: #### B GLU #### [facility] [address] [place] [address] Triglyceride [Mass/Vol] 147 mg/dL Normal <150 [facility] Comment on above: Performed By: #### B GLU #### [facility] [address] [place] [address] Cholesterol [Mass/Vol] 67 mg/dL Normal < 200 [facility] Comment on above: Performed By: #### B GLU #### [facility] [address] [place] [address] Lipid panel - fastingOrdered By: Eb Burgos on 01-31-2021 Cholesterol [Mass/Vol] 67 mg/dL <200 [employer] Work Phone: Cholesterol in HDL [Mass/Vol] 24 mg/dL Low 40 - 60 mg/dL [facility] Work Phone: Cholesterol in LDL [Mass/Vol] 14 mg/dL <100 [facility] Work Phone: Cholesterol.total/Yoselin sterol in HDL [Mass ratio] 3 {ratio} [facility] Work Phone: Comment on above: Ref Range: < 3 Low Risk for CHD 3-6 Mod Risk for CHD > 6 High Risk for CHD Interpretation and review of laboratory results Abnormal [facility] Work Phone: Triglyceride [Mass/Vol] 147 mg/dL <150 [facility] Work Phone: Test Performed by [facility], [address] [place] [address] [facility] Work Phone: [facility] Work Phone: MRI Brain w/o Contraston MRI Brain w/o Contrast Patient Name: SHOLA TERRY [facility] ACCESSION EXAM DATE/TIME PROCEDURE ORDERING PROVIDER [id number] 01/31/2021 13:35 EDT MRI Brain w/o Contrast 5640 [address] [place] CPT code 56607 Reason For Exam (MRI Brain w/o Contrast) dysarthria, dizziness Report EXAMINATION: MRI BRAIN WITHOUT CONTRAST CLINICAL INDICATION: Dizziness, dysarthria TECHNIQUE: Multi-planar multi-sequential MR imaging of the brain was performed without intravenous contrast. COMPARISON: Head CT 01/30/2021. MRI brain 10/01/2020 FINDINGS: No acute infarction, intracranial hemorrhage or mass. Mild periventricular and subcortical white matter T2 FLAIR hyperintensities, nonspecific, but likely representing chronic microangiopathic changes. Mild diffuse parenchymal volume loss with diffuse prominence of the sulci and ventricles. No hydrocephalus. No extra-axial fluid collections. The skull base flow voids are present. Bilateral lens replacement. Scattered mucosal thickening in the paranasal sinuses. The mastoid air cells are clear. The visualized osseous structures, soft tissues and partially visualized parotid glands appear normal. IMPRESSION: No acute intracranial abnormality. 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 Report Dictated on Final Dictating Physician: MD BALDERAS WASSIM OSAMA Signed Date and Time: 01/31/2021 2:48 pm Signed by: MD BALDERAS WASSIM OSAMA Transcribed Date and Time: 01/31/2021 2:49 Normal [facility] MRI brain without contrast ( REVIEW IMAGING OBTAINED IN LAST 2 YRS to determine indication)Ordered By: Eb Burgos on 01-31-2021 Patient Name: SHOLA URBINA [place] [facility] ACCESSION EXAM DATE/TIME PROCEDURE ORDERING PROVIDER [id number] 01/31/2021 13:35 EDT MRI Brain w/o Contrast 5640 -EB [place] CPT code 76348 Reason For Exam (MRI Brain w/o Contrast) dysarthria, dizziness Report EXAMINATION: MRI BRAIN WITHOUT CONTRAST CLINICAL INDICATION: Dizziness, dysarthria TECHNIQUE: Multi-planar multi-sequential MR imaging of the brain was performed without intravenous contrast. COMPARISON: Head CT 01/30/2021. MRI brain 10/01/2020 FINDINGS: No acute infarction, intracranial hemorrhage or mass. Mild periventricular and subcortical white matter T2 FLAIR hyperintensities, nonspecific, but likely representing chronic microangiopathic changes. Mild diffuse parenchymal volume loss with diffuse prominence of the sulci and ventricles. No hydrocephalus. No extra-axial fluid collections. The skull base flow voids are present. Bilateral lens replacement. Scattered mucosal thickening in the paranasal sinuses. The mastoid air cells are clear. The visualized osseous structures, soft tissues and partially visualized parotid glands appear normal. IMPRESSION: No acute intracranial abnormality. 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 Report Dictated on --- Final --- Dictating Physician: MD BALDERAS WASSIM OSAMA Signed Date and Time: 01/31/2021 2:48 pm Signed by: MD BALDERAS WASSIM OSAMA Transcribed Date and Time: 01/31/2021 2:49 [facility] Work Phone: [facility] Results From [facility] - 01/31/2021 2:49 PM EDT Patient Name: SHOLA MARTINEZ Magnetic Resonance Imaging ACCESSION EXAM DATE/TIME PROCEDURE ORDERING PROVIDER [id number] 01/31/2021 13:35 EDT MRI Brain w/o Contrast [address] [place] CPT code 31772 Reason For Exam (MRI Brain w/o Contrast) dysarthria, dizziness Report EXAMINATION: MRI BRAIN WITHOUT CONTRAST CLINICAL INDICATION: Dizziness, dysarthria TECHNIQUE: Multi-planar multi-sequential MR imaging of the brain was performed without intravenous contrast. COMPARISON: Head CT 01/30/2021. MRI brain 10/01/2020 FINDINGS: No acute infarction, intracranial hemorrhage or mass. Mild periventricular and subcortical white matter T2 FLAIR hyperintensities, nonspecific, but likely representing chronic microangiopathic changes. Mild diffuse parenchymal volume loss with diffuse prominence of the sulci and ventricles. No hydrocephalus. No extra-axial fluid collections. The skull base flow voids are present. Bilateral lens replacement. Scattered mucosal thickening in the paranasal sinuses. The mastoid air cells are clear. The visualized osseous structures, soft tissues and partially visualized parotid glands appear normal. IMPRESSION: No acute intracranial abnormality. 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 Report Dictated on --- Final --- Dictating Physician: MD SHERRIE, JUSTINE GIBBS Signed Date and Time: 01/31/2021 2:48 pm Signed by: MD SHERRIE, JUSTINE GIBBS Transcribed Date and Time: 01/31/2021 2:49 [facility] Work Phone: [facility] Work Phone: APTTon 01-30-2021 aPTT Coag (Bld) [Time] 26.3 s Normal 20.0-30.5 [facility] Comment on above: Result Comment: NOTE : The therapeutic time for Heparin anticoagulation, based on Xa activity inhibition, is an APTT of 46-80 seconds. Performed By: #### B GLU #### [facility] [address] [place] [address] APTTOrdered By: Denzel cm on 01-30-2021 aPTT Coag (Bld) [Time] 26.3 s 20.0 - 30.5 s [facility] Work Phone: [phone] Comment on above: NOTE: The therapeuti c time for Heparin anticoagulation, based on Xa activity inhibition, is an APTT of 46-80 seconds. CBC Auto DifferentialOrdered By: Denzel Mendes on 01-30-2021 Absolute Baso # 0.0 10*3/uL 0.0 - 0.2 10*3/uL [facility] Work Phone: [phone] Absolute Neut # 5.0 10*3/uL 1.8 - 7.0 10*3/uL [facility] Work Phone: [phone] Basophils/100 WBC (Bld) 0.5 % 0.0 - 2.0 % [facility] Work Phone: [phone] Eosinophils (Bld) [#/Vol] 0.1 10*3/uL 0.0 - 0.5 10*3/uL [facility] Work Phone: [phone] Eosinophils/100 WBC (Bld) 1.5 % 1.0 - 6.0 % [facility] Work Phone: [phone] Granulocytes/100 WBC (Bld) 78.6 % 40.0 - 80.0 % [facility] Work Phone: Hematocrit (Bld) [Volume fraction] 41.6 % 40.0 - 52.0 % [facility] Work Phone: Hemoglobin.gastrointest inal spec 1 Ql (Stl) 14.6 g/dL 13.0 - 18.0 g/dL [facility] Work Phone: Interpretation and review of laboratory results Abnormal [facility] Work Phone: [phone] Lymphocytes (Bld) [#/Vol] 0.9 10*3/uL Low 1.0 - 4.3 10*3/uL [facility] Work Phone: [phone] Lymphocytes/100 WBC (Bld) 14.0 % Low 20.0 - 40.0 % [facility] Work Phone: [phone] MCH (RBC) [Entitic mass] 30.4 pg 26.0 - 34.0 pg [facility] Work Phone: [phone] MCHC (RBC) [Mass/Vol] 35.1 % 32.0 - 36.0 % [facility] Work Phone: [phone] MCV (RBC) [Entitic vol] 86.4 fL 80.0 - 98.0 fL [facility] Work Phone: [phone] Monocytes (Bld) [#/Vol] 0.3 10*3/uL 0.0 - 0.8 10*3/uL [facility] Work Phone: [phone] Monocytes/100 WBC (Bld) 5.4 % 2.0 - 10.0 % [facility] Work Phone: [phone] Platelet distribution width (Bld) [Ratio] 12.7 % 11.5 - 14.5 % [facility] Work Phone: [phone] Platelet mean volume (Bld) [Entitic vol] 7.5 fL 7.4 - 10.4 fL [facility] Work Phone: [phone] Platelets (Bld) [#/Vol] 114 10*3/uL Low 140 - 440 10*3/uL [facility] Work Phone: [phone] RBC (Bld) [#/Vol] 4.82 10*6/uL 4.40 - 5.90 10*6/uL [facility] Work Phone: [phone] WBC (Bld) [#/Vol] 6.3 10*3/uL 3.6 - 10.7 10*3/uL [facility] Work Phone: [phone] Test Performed by [facility], [address] [place] [address] [place], [place] [address] [facility] Work Phone: [phone] [facility] Work Phone: [phone] HEAD WO CONTRASTOrdered B y: Denzel Mendes on 01-30-2021 Patient Name: SHOLA URBINA ND Computed Tomography ACCESSION EXAM DATE/TIME PROCEDURE ORDERING PROVIDER [id number] 01/30/2021 18:[address] Head or Brain w/o 5615 -VAUGHN, DENZEL Contrast CPT code 95010 Reason For Exam (CT Head or Brain w/o Contrast) stroke symptoms Report Exam Type: CT Head or Brain w/o Contrast Exam Date and Time: 01/30/2021 6:59 PM EDT Indication: Dizziness Comparison: CT head on 09/30/2020 TECHNIQUE: Noncontrast CT of the head. FINDINGS: Mild prominence of ventricles and cortical sulci is compatible with mild cerebral volume loss. No extra axial collection. No acute intracranial hemorrhage. Scattered foci of hypoattenuation in the cerebral white matter are nonspecific but most compatible with microangiopathy. No CT evidence of acute large territorial infarct. No mass effect, cerebral edema, or midline shift. Atherosclerotic vascular calcifications visualized at the skull base. Mild mucosal thickening within the maxillary sinuses bilaterally. Remaining paranasal sinuses and mastoids are well aerated. No depressed calvarial fracture. Bilateral lens replacements. Old nasal bone fractures. IMPRESSION: 1. No acute intracranial hemorrhage or mass effect. 2. Mild cerebral volume loss and changes of microangiopathy. Report Dictated on --- Final --- Dictating Physician: MD HARGROVE NEIL Signed Date and Time: 01/30/2021 7:15 pm Signed by: MD HARGROVE NEIL Transcribed Date and Time: 01/30/2021 7:16 [facility] Work Phone: [facility], [facility] Incoming Radiology Results From [facility] - 01/30/2021 7:16 PM EDT Patient [facility]: [id number] Computed Tomography ACCESSION EXAM DATE/TIME PROCEDURE ORDERING PROVIDER [id number] 01/30/2021 18:[address] Head or Brain w/o 5615 -VAUGHN, DENZEL Contrast CPT code 33132 Reason For Exam (CT Head or Brain w/o Contrast) stroke symptoms Report Exam Type: CT Head or Brain w/o Contrast Exam Date and Time: 01/30/2021 6:59 PM EDT Indication: Dizziness Comparison: CT head on 09/30/2020 TECHNIQUE: Noncontrast CT of the head. FINDINGS: Mild prominence of ventricles and cortical sulci is compatible with mild cerebral volume loss. No extra axial collection. No acute intracranial hemorrhage. Scattered foci of hypoattenuation in the cerebral white matter are nonspecific but most compatible with microangiopathy. No CT evidence of acute large territorial infarct. No mass effect, cerebral edema, or midline shift. Atherosclerotic vascular calcifications visualized at the skull base. Mild mucosal thickening within the maxillary sinuses bilaterally. Remaining paranasal sinuses and mastoids are well aerated. No depressed calvarial fracture. Bilateral lens replacements. Old nasal bone fractures. IMPRESSION: 1. No acute intracranial hemorrhage or mass effect. 2. Mild cerebral volume loss and changes of microangiopathy. Report Dictated on --- Final --- Dictating Physician: MD HARGROVE NEIL Signed Date and Time: 01/30/2021 7:15 pm Signed by: MD HARGROVE NEIL Transcribed Date and Time: 01/30/2021 7:16 [facility] Work Phone: [facility] Work Phone: CT Head or Brain w/o Contras ton 01-30-2021 CT Head or Brain w/o Contrast Patient Name: SHOLA MARTINEZ Computed Tomography ACCESSION EXAM DATE/TIME PROCEDURE ORDERING PROVIDER [id number] 01/30/2021 18:[address] Head or Brain w/o Sukhdeep -DENZEL MENDES Contrast CPT code 85634 Reason For Exam (CT Head or Brain w/o Contrast) stroke symptoms Report Exam Type: CT Head or Brain w/o Contrast Exam Date and Time: 01/30/2021 6:59 PM EDT Indication: Dizziness Comparison: CT head on 09/30/2020 TECHNIQUE: Noncontrast CT of the head. FINDINGS: Mild prominence of ventricles and cortical sulci is compatible with mild cerebral volume loss. No extra axial collection. No acute intracranial hemorrhage. Scattered foci of hypoattenuation in the cerebral white matter are nonspecific but most compatible with microangiopathy. No CT evidence of acute large territorial infarct. No mass effect, cerebral edema, or midline shift. Atherosclerotic vascular calcifications visualized at the skull base. Mild mucosal thickening within the maxillary sinuses bilaterally. Remaining paranasal sinuses and mastoids are well aerated. No depressed calvarial fracture. Bilateral lens replacements. Old nasal bone fractures. IMPRESSION: 1. No acute intracranial hemorrhage or mass effect. 2. Mild cerebral volume loss and changes of microangiopathy. Report Dictated on Final Dictating Physician: MD HARGROVE NEIL Signed Date and Time: 01/30/2021 7:15 pm Signed by: MD HARGROVE NEIL Transcribed Date and Time: 01/30/2021 7:16 Normal [facility] Comp Panel with Mg Reflexon 01-30-2021 ALT [Catalytic activity/Vol] 27 U/L Normal 0-49 [facility] Comment on above: Result Comment: The ALT test is performed by an updated assay method. Please note that the reference intervals have been changed and are now sex specific. Performed By: #### B GLU #### [facility] [address] [place] [address] Calcium [Mass/Vol] 9.1 mg/dL Normal 8.4-10.4 [facility] Comment on above: Performed By: #### B GLU #### [facility] [address] [place] [address] Glucose [Mass/Vol] 130 mg/dL High 70-100 [facility] Comment on above: Performed By: #### B GLU #### [facility] [address] [place] [address] ALP [Catalytic activity/Vol] 75 U/L Normal 38-126 [facility] Comment on above: Performed By: #### B GLU #### [facility] [address] [place] [address] Anion gap [Moles/Vol] 10 mmol/L Normal 3-13 [facility] Comment on above: Performed By: #### B GLU #### [facility] [address] [place] [address] AST [Catalytic activity/Vol] 35 U/L Normal 15-46 [facility] Comment on above: Performed By: #### B GLU #### [facility] [address] [place] [address] Bilirubin [Mass/Vol] 2.4 mg/dL High 0.2-1.3 [facility] Comment on above: Performed By: #### B GLU #### [facility] [address] [place] [address] CO2 [Moles/Vol] 23 mmol/L Normal 22-30 [facility] Comment on above: Performed By: #### B GLU #### [facility] [address] [place] [address] Creatinine [Mass/Vol] 0.86 mg/dL Normal 0.52-1.25 [facility] Comment on above: Performed By: #### B GLU #### [facility] [address] [place] [address] GFR/1.73 sq M.predicted among blacks MDRD (S/P/Bld) [Vol rate/Area] mL/min/{1.73_m2} Normal >60 [facility] Comment on above: Performed By: #### B GLU #### [facility] [address] [place] [address] GFR/1.73 sq M.predicted among non-blacks MDRD (S/P/Bld) [Vol rate/Area] 87.0 mL/min/{1.73_m2} Normal >60 [facility] Comment on above: Result Comment: KDIG O guidelines provide the following GFR categories: Stage GFR(ml/min/1.73 m2) Terms G1 >=90 Normal or high G2 60-89 Mildly decreased* G3a 45-59 Mildly to moderately decreased G3b 30-44 Moderately to severely decreased G4 15-29 Severely decreased G5 <15 Kidney failure *Relative to young adult level. In the absence of evidence of kidney damage, neither GFR category G1 nor G2 fulfill the criteria for CKD. The CKD-EPI equation is validated in individuals 18 years of age and older. Currently the best equation for estimating glomerular filtration rate (GFR) from serum creatinine in children is the Bedside Long equation. It is less accurate in patients with extremes of muscle mass, restriction of dietary protein, ingestion of creatine, extra-renal metabolism of creatinine, or treatment with medications that affect renal tubular creatinine secretion. Performed By: #### B GLU #### [facility] [address] [place] [address] Protein [Mass/Vol] 6.7 g/dL Normal 6.3-8.2 [facility] Comment on above: Performed By: #### B GLU #### [facility] [address] [place] [address] Urea nitrogen [Mass/Vol] 12 mg/dL Normal 7-17 [facility] Comment on above: Performed By: #### B GLU #### [facility] [address] [place] [address] Potassium [Moles/Vol] 4.1 mmol/L Normal 3.5-5.1 [facility] Comment on above: Performed By: #### B GLU #### [facility] [address] [place] [address] Sodium [Moles/Vol] 134 mmol/L Low 135-145 [facility] Comment on above: Performed By: #### B GLU #### [facility] [address] [place] [address] Albumin [Mass/Vol] 4.1 g/dL Normal 3.5-5.0 [facility] Comment on above: Performed By: #### B GLU #### [facility] [address] [place] [address] Chloride [Moles/Vol] 102 mmol/L Normal 98-107 [facility] Comment on above: Performed By: #### B GLU #### [facility] [address] [place] [address] Comprehensive Metabolic Pane l w/ Reflex to MGOrdered By: Denzel Mendes on 01-30-2021 Albumin [Mass/Vol] 4.1 g/dL 3.5 - 5.0 g/dL [facility] Work Phone: [phone] ALP (Bld) [Catalytic activity/Vol] 75 U/L 38 - 126 U/L [facility] Work Phone: ALT [Catalytic activity/Vol] 27 U/L 0 - 49 U/L [facility] Work Phone: Comment on above: The ALT test is perf ormed by an updated assay method. Please note that the reference intervals have been changed and are now sex specific. Anion gap [Moles/Vol] 10 mmol/L 3 - 13 mmol/L [facility] Work Phone: AST [Catalytic activity/Vol] 35 U/L 15 - 46 U/L [facility] Work Phone: [phone] Bilirubin [Mass/Vol] 2.4 mg/dL High 0.2 - 1 .3 mg/dL [facility] Work Phone: [phone] Calcium [Mass/Vol] 9.1 mg/dL 8.4 - 10. 4 mg/dL [facility] Work Phone: [phone] Chloride [Moles/Vol] 102 mmol/L 98 - 10 7 mmol/L [facility] Work Phone: [phone] CO2 [Moles/Vol] 23 mmol/L 22 - 30 mmol/L [facility] Work Phone: [phone] Creatinine [Mass/Vol] 0.86 mg/dL 0.52 - 1.25 mg/dL [facility] Work Phone: [phone] EGFR IF NonAfrican [place]er 87.0 mL/min >60 [facility] Work Phone: [phone] Comment on above: KDIGO guidelines pro vide the following GFR categories: Stage GFR(ml/min/1.73 m2) Terms G1 >=90 Normal or high G2 60-89 Mildly decreased* G3a 45-59 Mildly to moderately decreased G3b 30-44 Moderately to severely decreased G4 15-29 Severely decreased G5 <15 Kidney failure *Relative to young adult level. In the absence of evidence of kidney damage, neither GFR category G1 nor G2 fulfill the criteria for CKD. The CKD-EPI equation is validated in individuals 18 years of age and older. Currently the best equation for estimating glomerular filtration rate (GFR) from serum creatinine in children is the Bedside Long equation. It is less accurate in patients with extremes of muscle mass, restriction of dietary protein, ingestion of creatine, extra-renal metabolism of creatinine, or treatment with medications that affect renal tubular creatinine secretion. Free PSA/Total PSA [Mass fraction] 6.7 g/dL 6.3 - 8.2 g/dL [facility] Work Phone: [phone] GFR/1.73 sq M.predicted among blacks MDRD (S/P/Bld) [Vol rate/Area] mL/min/{1.73_m2} >60 mL/min [facility] Work Phone: [phone] Glucose [Mass/Vol] 130 mg/dL High 70 - 100 mg/dL [facility] Work Phone: Interpretation and review of laboratory results Abnormal [facility] Work Phone: Potassium [Moles/Vol] 4.1 mmol/L 3.5 - 5.1 mmol/L [facility] Work Phone: Sodium [Moles/Vol] 134 mmol/L Low 135 - 145 mmol/L [facility] Work Phone: Urea nitrogen (BldV) [Mass/Vol] 12 mg/dL 7 - 17 mg/dL [facility] Work Phone: Test Performed by [facility], [address] [place], [place], [place] [address] [facility] Work Phone: [facility] Work Phone: ED Provider Noteon ED Provider Note Emergency Department Encounter [facility] ED Patient: Shola Martinez : 1950 Date of Evaluation: 01/30/2021 ED Supervising Physician: Jesse Pack MD I independently examined and evaluated Shola Martinez. I wore a KN95 mask for the entirety of this patient encounter. In brief, Shola Martinez is a 70 y.o. male that presents to the emergency department with complaint of feeling lightheaded and dizzy. States has been going on for 3 days. States if he moves too fast he feels that he may fall. Does not feel like he was going to pass out. Denies chest pain or palpitations. Complains of weakness in both legs not worse on one side than the other. Denies vision change or speech change. Focused exam: Awake and alert. Afebrile. Nontoxic. Lungs clear to auscultation. Heart regular rate and rhythm. No gross focal motor or sensory deficits. NIH on my exam is 0. EKG: Normal sinus rhythm. Rate of 71. Normal axis. Left anterior fascicular block. No ST segment elevation. No change compared to previous of 02/11/2020. Today's EKG read by this examiner CT head shows no acute intracranial hemorrhage. Read by radiology. Reviewed by this examiner Brief ED course/MDM: Patient with lightheadedness, dizziness, unsteadiness on his feet. Concern is for cerebellar ischemia. Because of him being unsteady he is at risk for fall or injury. I do feel he needs to be admitted for further evaluation and treatment. Patient is admitted in fair condition All diagnostic, treatment, and disposition decisions were made by myself in conjunction with the CAM. For all further details of the patient's emergency department visit, please see their documentation. (Please note that portions of this note may have been completed with a voice recognition program. Efforts were made to edit the dictations but occasionally words are mis-transcribed.) Jesse Pack MD Acute Care [facility] Jesse Pack MD 01/31/21 0743 [facility] ED [facility] e[facility] dEPARTMENT eNCOUnter Pt Name: Shola Martinez Birthdate 1950 Date of evaluation: 01/30/2021 Provider: Denzel Mendes PA-C CHIEF COMPLAINT Chief Complaint Patient presents with ? Dizziness Pt. reports that he has been dizzy for the past few days and called his PCP and they told him to come to ED. ED care was supervised by Dr. Pack who independently examined and evaluated the patient. Please see their attestation note for further details. HISTORY OF PRESENT ILLNESS (Location/Symptom, Timing/Onset,Context/Setti ng, Quality, Duration, Modifying Factors, Severity) Note limiting factors. HPI Shola Martinez is a 70 y.o. male who presents to the emergency department for evaluation of feeling lightheaded for the past 3 days. He denies any room spinning sensation. States it has been going on for the past 3 days. States that if he moves too fast he feels that he may fall however he denies any falls. States that he does not feel like he is going to pass out. He denies any chest pain shortness of breath or any palpitations. He states that he is having weakness in both of his legs however this is not worse on one side compared to the other and he has had these symptoms before. 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 He states that he is currently in physical therapy, they do not want him ambulating on his own so he is in a wheelchair. He is in the process of getting a motorized wheelchair for at home. He denies any falls at home. Denies any visual change or speech change, has dysarthria at baseline.. He denies any pain. 0 out of 10 pain. No aggravating or alleviating factors. Nursing Notes were reviewed. REVIEW OF SYSTEMS (2+ forlevel 4; 10+ for level 5) Review of Systems At least 10 review of systems were reviewed. All pertinent positives and negatives listed above. PAST MEDICAL HISTORY Past Medical History: Diagnosis Date ? Bilateral leg edema chronic intermittent ? Blurry vision ? CAD (coronary artery disease) ? Cataract ? Chronic obstructive pulmonary disease (HCC) 08/20/2018 ? CKD (chronic kidney disease) stage 2, GFR 60-89 ml/min 09/12/2019 ? Community acquired pneumonia 04/2016 ? Diabetic neuropathy ([facility]) ? Dizziness after head injury 05/2013 ? Hx of blood clots ? Hyperlipidemia ? Hypertension ? Morbid obesity ([facility]) 05/21/2018 ? Recurrent UTI 02/03/2018 ? Sepsis due to gram-negative UTI ([facility]) 12/11/2017 ? Sleep apnea ? Type II or unspecified type diabetes mellitus without mention of complication, not stated as uncontrolled ? Weakness generalized after head injury 05/2013 SURGICALHISTORY Past Surgical History: Procedure Laterality Date ? APPENDECTOMY 1989 ? CATARACT REMOVAL ? CHOLECYSTECTOMY 08/2015 ? CORONARY ANGIOPLASTY 09/2016 ? EYE SURGERY Left 08/27/2018 ? FOOT SURGERY Left great toe and next toe removed ? HERNIA REPAIR 1991 ? OTHER SURGICAL HISTORY Right 07/30/2018 PHACOemulisification pupilloplasty malyugin right posterior chamber intraocular lens ? TONSILLECTOMY 1955 CURRENT MEDICATIONS Previous Medications ACCU-CHEK SOFTCLIX LANCETS MISC TEST BLOOD SUGAR 3 TIMES A DAY. ACETAMINOPHEN (TYLENOL) 325 MG TABLET Take 2 tablets by mouth every 4 hours as needed for Pain or Fever ALBUTEROL SULFATE HFA 108 (90 BASE) MCG/ACT INHALER INHALE 2 PUFFS BY MOUTH EVERY 4 HOURS NEEDED FOR WHEEZING OR SHORTNESS OF BREATH WITH SPACER ASPIRIN 81 MG CHEWABLE TABLET Take 1 tablet by mouth daily Indications: Type 2 Diabetes ATORVASTATIN (LIPITOR) 80 MG TABLET Take 1 tablet by mouth every evening Indications: High Amount of Fats in the Blood BLOOD GLUCOSE TEST STRIPS (ACCU-CHEK NICKY) STRIP 1 each by In Vitro route 3 times daily As needed. CLOPIDOGREL (PLAVIX) 75 MG TABLET Take 1 tablet by mouth daily FLUTICASONE (FLONASE) 50 MCG/ACT NASAL SPRAY 1 spray by Nasal route daily as needed for Rhinitis GLUCOSE MONITORING (FREESTYLE) KIT 1 kit by Does not apply route daily HYDROXYZINE (VISTARIL) 25 MG CAPSULE TAKE 1 CAPSULE BY MOUTH EVERY 8 HOURS NEEDED FOR ITCHING ISOSORBIDE MONONITRATE (IMDUR) 30 MG EXTENDED RELEASE TABLET TAKE 1 TABLET BY MOUTH EVERY MORNING LORATADINE (CLARITIN) 10 MG TABLET TAKE 1 TABLET BY MOUTH EVERY DAY LOSARTAN (COZAAR) 25 MG TABLET TAKE 1 TABLET BY MOUTH EVERY MORNING METFORMIN (GLUCOPHAGE-XR) 750 MG EXTENDED RELEASE TABLET TAKE 2 TABLETS BY MOUTH EVERY DAY WITH DINNER MINERAL OIL-HYDROPHILIC PETROLATUM (HYDROPHOR) OINTMENT Apply topically as needed. MISC. DEVICES (PULSE OXIMETER) MISC 1 each by Does not apply route once for 1 dose MISC. DEVICES (WHEELCHAIR) MISC 1 each by Does not apply route daily Motorized wheelchair OZEMPIC, 0.25 OR 0.5 MG/DOSE, 2 MG/1.5ML SOPN INJECT 0.5 MG SUB-Q EVERY WEEK ON FRIDAYS SENNOSIDES (SENNA) 8.6 MG CAPS Take 2 tablets by mouth daily TAMSULOSIN (FLOMAX) 0.4 MG CAPSULE TAKE 1 CAPSULE BY M (more content not included)... Normal [facility] Hemogram w/ Autodiffon 01-30 Abs Baso Cnt 0.0 10*3/uL Normal 0.0-0.2 [facility] Comment on above: Performed By: #### B GLU #### [facility] [address] [place] [address] Abs Neutrophile Cnt 5.0 10*3/uL Normal 1.8-7.0 [facility] Comment on above: Performed By: #### B GLU #### [facility] [address] [place] [address] Basophils/100 WBC (Bld) 0.5 % Normal 0.0-2.0 [facility] Comment on above: Performed By: #### B GLU #### [facility] [address] [place] [address] Eosinophils (Bld) [#/Vol] 0.1 10*3/uL Normal 0.0-0.5 [facility] Comment on above: Performed By: #### B GLU #### [facility] [address] [place] [address] Eosinophils/100 WBC (Bld) 1.5 % Normal 1.0-6.0 [facility] Comment on above: Performed By: #### B GLU #### [facility] [address] [place] [address] Erythrocyte distribution width (RBC) [Ratio] 12.7 % Normal 11.5-14.5 [facility] Comment on above: Performed By: #### B GLU #### [facility] [address] [place] [address] Granulocytes/100 WBC (Bld) 78.6 % Normal 40.0-80.0 [facility] Comment on above: Performed By: #### B GLU #### [facility] [address] [place] [address] Hematocrit (Bld) [Volume fraction] 41.6 % Normal 40.0-52.0 [facility] Comment on above: Performed By: #### B GLU #### [facility] [address] [place] [address] Hemoglobin (Bld) [Mass/Vol] 14.6 g/dL Normal 13.0-18.0 [facility] Comment on above: Performed By: #### B GLU #### [facility] [address] [place] [address] Lymphocytes (Bld) [#/Vol] 0.9 10*3/uL Low 1.0-4.3 [facility] Comment on above: Performed By: #### B GLU #### [facility] [address] [place] [address] Lymphocytes/100 WBC (Bld) 14.0 % Low 20.0-40.0 [facility] Comment on above: Performed By: #### B GLU #### [facility] [address] [place] [address] MCH (RBC) [Entitic mass] 30.4 pg Normal 26.0-34.0 [facility] Comment on above: Performed By: #### B GLU #### [facility] [address] [place] [address] MCHC 35.1 % Normal 32.0-36.0 [facility] Comment on above: Performed By: #### B GLU #### [facility] [address] [place] [address] MCV (RBC) [Entitic vol] 86.4 fL Normal 80.0-98.0 [facility] Comment on above: Performed By: #### B GLU #### [facility] [address] [place] [address] Monocytes (Bld) [#/Vol] 0.3 10*3/uL Normal 0.0-0.8 [facility] Comment on above: Performed By: #### B GLU #### [facility] [address] [place] [address] Monocytes/100 WBC (Bld) 5.4 % Normal 2.0-10.0 [facility] Comment on above: Performed By: #### B GLU #### [facility] [address] [place] [address] Platelet mean volume (Bld) [Entitic vol] 7.5 fL Normal 7.4-10.4 [facility] Comment on above: Performed By: #### B GLU #### [facility] [address] [place] [address] Platelets (Bld) [#/Vol] 114 10*3/uL Low 140-440 [facility] Comment on above: Performed By: #### B GLU #### [facility] [address] [place] [address] RBC (Bld) [#/Vol] 4.82 10*6/uL Normal 4.40-5.90 [facility] Comment on above: Performed By: #### B GLU #### [facility] [address] [place] [address] WBC (Bld) [#/Vol] 6.3 10*3/uL Normal 3.6-10.7 [facility] Comment on above: Performed By: #### B GLU #### [facility] [address] [place] [address] No Panel InformationOrdered By: Denzel Mendes on 01-30-2021 Test Performed by [facility], [address], [place], [place] [address] [employer] Work Phone: [facility] Work Phone: Prothrombin Timeon INR 1.1 Normal 0.9-1.1 [facility] Comment on above: Result Comment: Jacob mmended Anticoagulant Therapy: SEE BELOW ----- INR of 2.0 - 3.0 : - Prophylaxis of Venous Thrombosis (high-risk surgery) - Treatment of Venous Thrombosis - Treatment of Pulmonary Embolism (Includes tissue heart valves, Acute Myocardial Infarction to prevent systemic embolism, Valvular Heart Disease, and Atrial Fibrillation) ----- INR of 2.5 - 3.5 : - Mechanical Prosthetic Valves (high risk) - If oral anticoagulant therapy is used to prevent Myocardial Infarction Performed By: #### B GLU #### [facility] [address] [place] [address] PT Coag (PPP) [Time] 11.5 s Normal 9.0-12.0 [facility] [employer] [facility] Comment on above: Result Comment: . Performed By: #### B GLU #### [facility] [employer] [facility] [address] [place] [address] Protime-INROrdered By: Denzel Mendes on 01-30-2021 INR Coag (Bld) [Relative time] 1.1 {INR} [facility] Work Phone: Comment on above: Recommended Anticoag ulant Therapy: SEE BELOW ----- INR of 2.0 - 3.0 : - Prophylaxis of Venous Thrombosis (high-risk surgery) - Treatment of Venous Thrombosis - Treatment of Pulmonary Embolism (Includes tissue heart valves, Acute Myocardial Infarction to prevent systemic embolism, Valvular Heart Disease, and Atrial Fibrillation) ----- INR of 2.5 - 3.5 : - Mechanical Prosthetic Valves (high risk) - If oral anticoagulant therapy is used to prevent Myocardial Infarction PT Coag (PPP) [Time] 11.5 s 9.0 - 1 2.0 s [facility] Work Phone: Comment on above: . TroponinOrdered By: Denzel Mario on 01-30-2021 Troponin I.cardiac [Mass/Vol] ng/mL 0.000 - 0.034 ng/mL [facility] Work Phone: Comment on above: . Test Performed by [facility], [address] [place] [address] [facility] Work Phone: [facility] Work Phone: Troponin Ion 01-30-2021 Troponin I.cardiac [Mass/Vol] ng/mL Normal 0.000-0.03 4 [facility] Comment on above: Result Comment: . Performed By: #### B GLU #### [facility] [address] [place] [address] Glucose,Bedsideon 10-07-2020 Glucose [Mass/Vol] 139 mg/dL High [address] [facility] Comment on above: Result Comment: Test performed by glucose meter. Results may be 10%-15% lower than serum/plasma values. (CLIA ID [id number]) Performed By: #### B GLU #### [facility] [address] [place] [address] Glucose [Mass/Vol] 119 mg/dL High 7[address] [facility] Comment on above: Result Comment: Test performed by glucose meter. Results may be 10%-15% lower than serum/plasma values. (CLIA ID [id number]) Performed By: #### A DDON #### [facility] [address] [place] [address] Glucose,Bedsideon 10-06-2020 Glucose [Mass/Vol] 147 mg/dL High 70-100 [facility] Comment on above: Result Comment: Test performed by glucose meter. Results may be 10%-15% lower than serum/plasma values. (CLIA ID [id number]) Performed By: #### B GLU #### [facility] [address] [place] [address] Glucose [Mass/Vol] 147 mg/dL High 70-100 [facility] Comment on above: Result Comment: Test performed by glucose meter. Results may be 10%-15% lower than serum/plasma values. (CLIA ID [id number]) Performed By: #### B GLU #### [facility] [address] [place] [address] Glucose [Mass/Vol] 126 mg/dL High 70-100 [facility] Comment on above: Result Comment: Test performed by glucose meter. Results may be 10%-15% lower than serum/plasma values. (CLIA ID [id number]) Performed By: #### A DDON #### [facility] [address] [place] [address] Glucose [Mass/Vol] 237 mg/dL High 70-100 [facility] Comment on above: Result Comment: Test performed by glucose meter. Results may be 10%-15% lower than serum/plasma values. (CLIA ID [id number]) Performed By: #### B GLU #### [facility] [address] [place] [address] Glucose [Mass/Vol] 116 mg/dL High 70-100 [facility] Comment on above: Result Comment: Test performed by glucose meter. Results may be 10%-15% lower than serum/plasma values. (CLIA ID [id number]) Performed By: #### B GLU #### [facility] [address] [place] [address] Glucose,Bedsideon 10-05-2020 Glucose [Mass/Vol] 185 mg/dL [facility] [address] [facility] Comment on above: Result Comment: Test performed by glucose meter. Results may be 10%-15% lower than serum/plasma values. (CLIA ID [id number]) Performed By: #### B GLU #### [facility] [address] [place] [address] Glucose [Mass/Vol] 122 mg/dL High 70-100 [facility] Comment on above: Result Comment: Test performed by glucose meter. Results may be 10%-15% lower than serum/plasma values. (CLIA ID [id number]) Performed By: #### B GLU #### [facility] [address] [place] [address] Glucose [Mass/Vol] 191 mg/dL High 70-100 [facility] Comment on above: Result Comment: Test performed by glucose meter. Results may be 10%-15% lower than serum/plasma values. (CLIA ID [id number]) Performed By: #### B GLU #### [facility] [address] [place] [address] Glucose [Mass/Vol] 117 mg/dL High 70-100 [facility] Comment on above: Result Comment: Test performed by glucose meter. Results may be 10%-15% lower than serum/plasma values. (CLIA ID [id number]) Performed By: #### B GLU #### [facility] [address] [place] [address] Basic Metabolic Panelon 07-0 -2020 Calcium [Mass/Vol] 8.9 mg/dL Normal 8.4-10.4 [facility] Comment on above: Performed By: #### B GLU #### [facility] [address] [place] [address] Anion gap [Moles/Vol] 5 mmol/L Normal 3-13 [facility] Comment on above: Performed By: #### B GLU #### [facility] [address] [place] [address] CO2 [Moles/Vol] 28 mmol/L Normal 22-30 [facility] Comment on above: Performed By: #### B GLU #### [facility] [address] [place] [address] Creatinine [Mass/Vol] 0.84 mg/dL Normal 0.52-1.25 [facility] Comment on above: Performed By: #### B GLU #### [facility] [address] [place] [address] GFR/1.73 sq M.predicted among blacks MDRD (S/P/Bld) [Vol rate/Area] mL/min/{1.73_m2} Normal >60 [facility] Comment on above: Performed By: #### B GLU #### [facility] [address] [place] [address] GFR/1.73 sq M.predicted among non-blacks MDRD (S/P/Bld) [Vol rate/Area] 88.0 mL/min/{1.73_m2} Normal >60 [facility] Comment on above: Result Comment: KDIG O guidelines provide the following GFR categories: Stage GFR(ml/min/1.73 m2) Terms G1 >=90 Normal or high G2 60-89 Mildly decreased* G3a 45-59 Mildly to moderately decreased G3b 30-44 Moderately to severely decreased G4 15-29 Severely decreased G5 <15 Kidney failure *Relative to young adult level. In the absence of evidence of kidney damage, neither GFR category G1 nor G2 fulfill the criteria for CKD. The CKD-EPI equation is validated in individuals 18 years of age and older. Currently the best equation for estimating glomerular filtration rate (GFR) from serum creatinine in children is the Bedside Long equation. It is less accurate in patients with extremes of muscle mass, restriction of dietary protein, ingestion of creatine, extra-renal metabolism of creatinine, or treatment with medications that affect renal tubular creatinine secretion. Performed By: #### B GLU #### [facility] [address] [place] [address] Glucose [Mass/Vol] 121 mg/dL High 70-100 [facility] Comment on above: Performed By: #### B GLU #### [facility] [address] [place] [address] Urea nitrogen [Mass/Vol] 13 mg/dL Normal 7-20 [facility] Comment on above: Performed By: #### B GLU #### [facility] [address] [place] [address] Chloride [Moles/Vol] 101 mmol/L Normal 98-107 [facility] Comment on above: Performed By: #### B GLU #### [facility] [address] [place] [address] Potassium [Moles/Vol] 4.3 mmol/L Normal 3.5-5.1 [facility] Comment on above: Performed By: #### B GLU #### [facility] [address] [place] [address] Sodium [Moles/Vol] 133 mmol/L Low 135-145 [facility] Comment on above: Performed By: #### B GLU #### [facility] [address] [place] [address] Glucose,Bedsideon 10-04-2020 Glucose [Mass/Vol] 145 mg/dL High 70-100 [facility] Comment on above: Result Comment: Test performed by glucose meter. Results may be 10%-15% lower than serum/plasma values. (CLIA ID [id number]) Performed By: #### B GLU #### [facility] [address] [place] [address] Glucose [Mass/Vol] 128 mg/dL High 70-100 [facility] Comment on above: Result Comment: Test performed by glucose meter. Results may be 10%-15% lower than serum/plasma values. (CLIA ID [id number]) Performed By: #### B GLU #### [facility] [address] [place] [address] Glucose [Mass/Vol] 208 mg/dL High 70-100 [facility] Comment on above: Result Comment: Test performed by glucose meter. Results may be 10%-15% lower than serum/plasma values. (CLIA ID [id number]) Performed By: #### B GLU #### [facility] [address] [place] [address] Glucose [Mass/Vol] 145 mg/dL High 70-100 [facility] Comment on above: Result Comment: Test performed by glucose meter. Results may be 10%-15% lower than serum/plasma values. (CLIA ID [id number]) Performed By: #### B GLU #### [facility] [address] [place] [address] Hemogram w/ Autodiffon 10-04 Abs Baso Cnt 0.0 10*3/uL Normal 0.0-0.2 [facility] Comment on above: Performed By: #### B GLU #### [facility] [address] [place] [address] Abs Neutrophile Cnt 3.2 10*3/uL Normal 1.8-7.0 [facility] Comment on above: Performed By: #### B GLU #### [facility] [address] [place] [address] Basophils/100 WBC (Bld) 0.7 % Normal 0.0-2.0 [facility] Comment on above: Performed By: #### B GLU #### [facility] [address] [place] [address] Eosinophils (Bld) [#/Vol] 0.3 10*3/uL Normal 0.0-0.5 [facility] Comment on above: Performed By: #### B GLU #### [facility] [address] [place] [address] Eosinophils/100 WBC (Bld) 5.5 % Normal 1.0-6.0 [facility] Comment on above: Performed By: #### B GLU #### [facility] [address] [place] [address] Erythrocyte distribution width (RBC) [Ratio] 12.4 % Normal 11.5-14.5 [facility] Comment on above: Performed By: #### B GLU #### [facility] [address] [place] [address] Granulocytes/100 WBC (Bld) 60.5 % Normal 40.0-80.0 [facility] Comment on above: Performed By: #### B GLU #### [facility] [address] [place] [address] Hematocrit (Bld) [Volume fraction] 43.5 % Normal 40.0-52.0 [facility] Comment on above: Performed By: #### B GLU #### [facility] [address] [place] [address] Hemoglobin (Bld) [Mass/Vol] 15.5 g/dL Normal 13.0-18.0 [facility] Comment on above: Performed By: #### B GLU #### [facility] [address] [place] [address] Lymphocytes (Bld) [#/Vol] 1.4 10*3/uL Normal 1.0-4.3 [facility] Comment on above: Performed By: #### B GLU #### [facility] [address] [place] [address] Lymphocytes/100 WBC (Bld) 26.1 % Normal 20.0-40.0 [facility] Comment on above: Performed By: #### B GLU #### [facility] [address] [place] [address] MCH (RBC) [Entitic mass] 32.0 pg Normal 26.0-34.0 [facility] Comment on above: Performed By: #### B GLU #### [facility] [address] [place] [address] MCHC 35.6 % Normal 32.0-36.0 [facility] Comment on above: Performed By: #### B GLU #### [facility] [address] [place] [address] MCV (RBC) [Entitic vol] 89.8 fL Normal 80.0-98.0 [facility] Comment on above: Performed By: #### B GLU #### [facility] [address] [place] [address] Monocytes (Bld) [#/Vol] 0.4 10*3/uL Normal 0.0-0.8 [facility] Comment on above: Performed By: #### B GLU #### [facility] [address] [place] [address] Monocytes/100 WBC (Bld) 7.2 % Normal 2.0-10.0 [facility] Comment on above: Performed By: #### B GLU #### [facility] [address] [place] [address] Platelet mean volume (Bld) [Entitic vol] 7.3 fL Low 7.4-10.4 [facility] Comment on above: Performed By: #### B GLU #### [facility] [address] [place] [address] Platelets (Bld) [#/Vol] 113 10*3/uL Low 140-440 [facility] Comment on above: Performed By: #### B GLU #### [facility] [address] [place] [address] RBC (Bld) [#/Vol] 4.84 10*6/uL Normal 4.40-5.90 [facility] Comment on above: Performed By: #### B GLU #### [facility] [address] [place] [address] WBC (Bld) [#/Vol] 5.3 10*3/uL Normal 3.6-10.7 [facility] Comment on above: Performed By: #### B GLU #### [facility] [address] [place] [address] Glucose,Bedsideon 10-03-2020 Glucose [Mass/Vol] 134 mg/dL High [address] [place] [address] Comment on above: Result Comment: Test performed by glucose meter. Results may be 10%-15% lower than serum/plasma values. (CLIA ID [id number]) Performed By: #### B GLU #### [facility] [address] [place] [address] Glucose [Mass/Vol] 132 mg/dL High [address] Comment on above: Result Comment: Test performed by glucose meter. Results may be 10%-15% lower than serum/plasma values. (CLIA ID [id number]) Performed By: #### A DDON #### [facility] [address] [place] [address] Glucose [Mass/Vol] 130 mg/dL High [address] Comment on above: Result Comment: Test performed by glucose meter. Results may be 10%-15% lower than serum/plasma values. (CLIA ID [id number]) Performed By: #### B GLU #### [facility] [employer] [facility] [address] [place] [address] Glucose [Mass/Vol] 151 mg/dL [address] Comment on above: Result Comment: Test performed by glucose meter. Results may be 10%-15% lower than serum/plasma values. (CLIA ID [id number]) Performed By: #### B GLU #### [facility] [address] [place] [address] Glucose,Bedsideon 10-02-2020 Glucose [Mass/Vol] 135 mg/dL High [address] [place] [address] Comment on above: Result Comment: Test performed by glucose meter. Results may be 10%-15% lower than serum/plasma values. (CLIA ID [id number]) Performed By: #### B GLU #### [facility] [employer] [facility] [address] [place] [address] Glucose [Mass/Vol] 133 mg/dL [address] Comment on above: Result Comment: Test performed by glucose meter. Results may be 10%-15% lower than serum/plasma values. (CLIA ID [id number]) Performed By: #### B GLU #### [facility] [address] [place] [address] Glucose [Mass/Vol] 158 mg/dL High 70-100 [facility] Comment on above: Result Comment: Test performed by glucose meter. Results may be 10%-15% lower than serum/plasma values. (CLIA ID [id number]) Performed By: #### B GLU #### [facility] [address] [place] [address] Glucose [Mass/Vol] 120 mg/dL High 70-100 [facility] Comment on above: Result Comment: Test performed by glucose meter. Results may be 10%-15% lower than serum/plasma values. (CLIA ID [id number]) Performed By: #### B GLU #### [facility] [address] [place] [address] Basic Metabolic Panelon 07-0 -2020 Calcium [Mass/Vol] 8.7 mg/dL Normal 8.4-10.4 [facility] Comment on above: Performed By: #### B GLU #### [facility] [address] [place] [address] Anion gap [Moles/Vol] 5 mmol/L Normal 3-13 [facility] Comment on above: Performed By: #### B GLU #### [facility] [address] [place] [address] CO2 [Moles/Vol] 26 mmol/L Normal 22-30 [facility] Comment on above: Performed By: #### B GLU #### [facility] [address] [place] [address] Creatinine [Mass/Vol] 0.88 mg/dL Normal 0.52-1.25 [facility] Comment on above: Performed By: #### B GLU #### [facility] [address] [place] [address] GFR/1.73 sq M.predicted among blacks MDRD (S/P/Bld) [Vol rate/Area] mL/min/{1.73_m2} Normal >60 [facility] Comment on above: Performed By: #### B GLU #### [facility] [address] [place] [address] GFR/1.73 sq M.predicted among non-blacks MDRD (S/P/Bld) [Vol rate/Area] 86.4 mL/min/{1.73_m2} Normal >60 [facility] Comment on above: Result Comment: KDIG O guidelines provide the following GFR categories: Stage GFR(ml/min/1.73 m2) Terms G1 >=90 Normal or high G2 60-89 Mildly decreased* G3a 45-59 Mildly to moderately decreased G3b 30-44 Moderately to severely decreased G4 15-29 Severely decreased G5 <15 Kidney failure *Relative to young adult level. In the absence of evidence of kidney damage, neither GFR category G1 nor G2 fulfill the criteria for CKD. The CKD-EPI equation is validated in individuals 18 years of age and older. Currently the best equation for estimating glomerular filtration rate (GFR) from serum creatinine in children is the Bedside Long equation. It is less accurate in patients with extremes of muscle mass, restriction of dietary protein, ingestion of creatine, extra-renal metabolism of creatinine, or treatment with medications that affect renal tubular creatinine secretion. Performed By: #### B GLU #### [facility] [address] [place] [address] Glucose [Mass/Vol] 120 mg/dL High 70-100 [facility] Comment on above: Performed By: #### B GLU #### [facility] [address] [place] [address] Urea nitrogen [Mass/Vol] 13 mg/dL Normal 7-20 [facility] Comment on above: Performed By: #### B GLU #### [facility] [address] [place] [address] Chloride [Moles/Vol] 101 mmol/L Normal 98-107 [facility] Comment on above: Performed By: #### B GLU #### [facility] [address] [place] [address] Potassium [Moles/Vol] 4.2 mmol/L Normal 3.5-5.1 [facility] Comment on above: Performed By: #### B GLU #### [facility] [address] [place] [address] Sodium [Moles/Vol] 132 mmol/L Low 135-145 [facility] Comment on above: Performed By: #### B GLU #### [facility] [address] [place] [address] Echo Complete w/wo Contrasto n 10-01-2020 Echo Complete w/wo Contrast Patient Name: SHOLA MARTINEZ Ultrasound ACCESSION EXAM DATE/TIME PROCEDURE ORDERING PROVIDER [id number] 10/01/2020 10:18 EDT Echo Complete w/wo [id number] -CIERRA BALLARD Reason For Exam (Echo Complete w/wo Contrast) diastolic HF, no recent EF Report TRANSTHORACIC ECHOCARDIOGRAM PATIENT: Shola Martinez STUDY DATE: 10/01/2020 : 1950 AGE: 70 HT/WT: 188 cm (74 124.3 kg in) (273.4 lb) GENDER: M BP: 129 / 69 LOCATION: [facility] PATIENT Observation [facility] STATUS: *ORDERING PHYSICIAN: * Cierra Ballard *READING PHYSICIAN: * Pacheco Degroot MD, *[employer] OPERATOR: Sai Adamson [facility] INDICATIONS: Diastolic HF, No recent EF. CONCLUSIONS SUMMARY: 1. Left ventricle: Systolic function is normal by the biplane method of disks. The estimated ejection fraction is 58%. 2. Right ventricle: Systolic function is normal. 3. Mitral valve: Mildly calcified annulus. Mildly thickened, mildly calcified leaflets. There is no regurgitation. STUDY DATA: Complete transthoracic echocardiogram. Procedure: Image quality was fair. M-mode, complete 2D, complete spectral Doppler, and color flow Doppler images were acquired and archived for permanent storage and are available for subsequent review. Study status: Routine. Patient status: Observation. FINDINGS LEFT VENTRICLE: The cavity size is normal. Wall thickness is normal. Systolic function is normal by the biplane method of disks. The estimated ejection fraction is 58%. There are no regional wall motion abnormalities. Left ventricular diastolic function parameters are normal for the patient's age. RIGHT VENTRICLE: The cavity size is normal. Systolic function is normal. Right ventricular systolic pressure is within the normal range. VENTRICULAR SEPTUM: There is no evidence of a ventricular septal Ultrasound Report defect. LEFT ATRIUM: The atrium is normal in size. RIGHT ATRIUM: The atrium is normal in size. ATRIAL SEPTUM: Color Doppler shows no shunt. MITRAL VALVE: Mildly calcified annulus. Mildly thickened, mildly calcified leaflets. Doppler: There is no evidence for stenosis. There is no regurgitation. The valve area by pressure half-time is 3.2 cm^2. The valve area (LVOT continuity) is 4.4 cm^2. The mean diastolic gradient is 2 mm Hg. The peak diastolic gradient is 4 mm Hg. AORTIC VALVE: Trileaflet; mildly calcified leaflets. Doppler: There is no significant regurgitation. Dimensionless index: 0.96. The valve area by the velocity-time integral method is 4.6 cm^2. The valve area index by the velocity-time integral method is 1.9 cm^2/m^2. The mean systolic gradient is 3 mm Hg. The peak systolic gradient is 5 mm Hg. The peak systolic velocity is 1.1 m/sec. TRICUSPID VALVE: Structurally normal valve. Doppler: There is trivial, less than 1+ regurgitation. PULMONIC VALVE: Structurally normal valve. Doppler: There is trivial, less than 1+ regurgitation. AORTA: The aorta is normal. PULMONARY ARTERY: Main pulmonary artery: Normal. PERICARDIUM: Prominent epicardial fat is present. There is no pericardial effusion. SYSTEMIC VEINS: Inferior vena cava: Not well visualized. Measurements Value 10/04/2016 Reference Aortic root ID 3.3 cm <4.5 Aortic root ID, STJ, ED 2.7 cm 2.3 - 3.5 Aortic root ID/bsa, STJ, 1.1 cm/m^2 1.1 - 1.9 ED Value 10/04/2016 Reference Ascending aorta ID 3.2 cm 2.2 - 3.8 Ascending aorta ID/bsa, 1.3 cm/m^2 1.1 - 1.9 A-P Ascending aorta ID, A-P, 3.2 cm S Ascending aorta ID/bsa, 1.3 cm/m^2 A-P, S Left ventricle Value 10/04/2016 Reference LV ID, ED (L) 3.5 cm 4.6 4.2 - 5.8 LV ID, ES 2.6 cm 2.8 2.5 - 4.0 LV ID/bsa, ED (L) 1.4 cm/m^2 2.2 - 3.0 LV ID/bsa, ES (L) 1.1 cm/m^2 1.3 - 2.1 LV PW thickness, ED (H) 1.3 cm 1.1 0.6 - 1.0 LV PW/LV ID ratio, ED 0.38 LV wall mass 147 g 96 - 200 LV wall mass/bsa 59 g/m^2 50 - 102 Stroke volume/bsa, 1-p 16 ml/m^2 A2C LV end-diastolic volume, 103 ml 77 69 - 185 1-p A4C LV end-systolic volume, 40 ml 33 22 - 78 1-p A4C LV end-diastolic volume, 85 ml 78 62 - 150 2-p LV end-systolic volume, 36 ml 28 21 - 61 Ultrasound Report 2-p LV ejection fraction, 2-p 58 % 64 52 - 72 LV E/e', lateral 9.7 11.2 LV E/e', medial 10.8 11.4 LV E/e', average 10.2 11.3 (more content not included)... Normal [facility] Glucose,Bedsideon 10-01-2020 Glucose [Mass/Vol] 119 mg/dL High 70-100 [facility] [employer] [facility] Comment on above: Result Comment: Test performed by glucose meter. Results may be 10%-15% lower than serum/plasma values. (CLIA ID [id number]) Performed By: #### B GLU #### [employer] [address] [place] [address] Glucose [Mass/Vol] 125 mg/dL High 70-100 [facility] Comment on above: Result Comment: Test performed by glucose meter. Results may be 10%-15% lower than serum/plasma values. (CLIA ID [id number]) Performed By: #### B GLU #### [employer] [facility] [address] [place] [address] Glucose [Mass/Vol] 132 mg/dL High 70-100 [facility] Comment on above: Result Comment: Test performed by glucose meter. Results may be 10%-15% lower than serum/plasma values. (CLIA ID [id number]) Performed By: #### B GLU #### [facility] [address] [place] [address] Glucose [Mass/Vol] 119 mg/dL High 70-100 [facility] Comment on above: Result Comment: Test performed by glucose meter. Results may be 10%-15% lower than serum/plasma values. (CLIA ID [id number]) Performed By: #### B GLU #### [facility] [address] [place] [address] Hemogram w/ Autodiffon 10-01 Abs Baso Cnt 0.0 10*3/uL Normal 0.0-0.2 [facility] Comment on above: Performed By: #### B GLU #### [facility] [address] [place] [address] Abs Neutrophile Cnt 3.8 10*3/uL Normal 1.8-7.0 [facility] Comment on above: Performed By: #### B GLU #### [facility] [address] [place] [address] Basophils/100 WBC (Bld) 0.7 % Normal 0.0-2.0 [facility] Comment on above: Performed By: #### B GLU #### [facility] [address] [place] [address] Eosinophils (Bld) [#/Vol] 0.4 10*3/uL Normal 0.0-0.5 [facility] Comment on above: Performed By: #### B GLU #### [facility] [address] [place] [address] Eosinophils/100 WBC (Bld) 7.1 % High 1.0-6.0 [facility] Comment on above: Performed By: #### B GLU #### [facility] [address] [place] [address] Erythrocyte distribution width (RBC) [Ratio] 12.1 % Normal 11.5-14.5 [facility] Comment on above: Performed By: #### B GLU #### [facility] [address] [place] [address] Granulocytes/100 WBC (Bld) 61.8 % Normal 40.0-80.0 [facility] Comment on above: Performed By: #### B GLU #### [facility] [address] [place] [address] Hematocrit (Bld) [Volume fraction] 41.1 % Normal 40.0-52.0 [facility] Comment on above: Performed By: #### B GLU #### [facility] [address] [place] [address] Hemoglobin (Bld) [Mass/Vol] 14.5 g/dL Normal 13.0-18.0 [facility] Comment on above: Performed By: #### B GLU #### [facility] [address] [place] [address] Lymphocytes (Bld) [#/Vol] 1.5 10*3/uL Normal 1.0-4.3 [facility] Comment on above: Performed By: #### B GLU #### [facility] [address] [place] [address] Lymphocytes/100 WBC (Bld) 24.5 % Normal 20.0-40.0 [facility] Comment on above: Performed By: #### B GLU #### [facility] [address] [place] [address] MCH (RBC) [Entitic mass] 31.9 pg Normal 26.0-34.0 [facility] Comment on above: Performed By: #### B GLU #### [facility] [address] [place] [address] MCHC 35.4 % Normal 32.0-36.0 [facility] Comment on above: Performed By: #### B GLU #### [facility] [address] [place] [address] MCV (RBC) [Entitic vol] 90.1 fL Normal 80.0-98.0 [facility] Comment on above: Performed By: #### B GLU #### [facility] [address] [place] [address] Monocytes (Bld) [#/Vol] 0.4 10*3/uL Normal 0.0-0.8 [facility] Comment on above: Performed By: #### B GLU #### [facility] [address] [place] [address] Monocytes/100 WBC (Bld) 5.9 % Normal 2.0-10.0 [facility] Comment on above: Performed By: #### B GLU #### [facility] [address] [place] [address] Platelet mean volume (Bld) [Entitic vol] 7.1 fL Low 7.4-10.4 [facility] Comment on above: Performed By: #### B GLU #### [facility] [address] [place] [address] Platelets (Bld) [#/Vol] 131 10*3/uL Low 140-440 [facility] Comment on above: Performed By: #### B GLU #### [facility] [address] [place] [address] RBC (Bld) [#/Vol] 4.56 10*6/uL Normal 4.40-5.90 [facility] Comment on above: Performed By: #### B GLU #### [facility] [address] [place] [address] WBC (Bld) [#/Vol] 6.1 10*3/uL Normal 3.6-10.7 [facility] Comment on above: Performed By: #### B GLU #### [facility] [address] [place] [address] Lipid Panelon 10-01-2020 Chol/HDL 4 Normal [facility] Comment on above: Result Comment: Ref Range: < 3 Low Risk for CHD 3-6 Mod Risk for CHD > 6 High Risk for CHD Performed By: #### B GLU #### [facility] [address] [place] [address] Cholesterol in HDL [Mass/Vol] 23 mg/dL Low 40-60 [facility] Comment on above: Performed By: #### B GLU #### [facility] [address] [place] [address] Low Density Lipoprotein 22 mg/dL Normal <100 [facility] Comment on above: Performed By: #### B GLU #### [facility] [address] [place] [address] Cholesterol [Mass/Vol] 82 mg/dL Normal < 200 [facility] Comment on above: Performed By: #### B GLU #### [facility] [address] [place] [address] Triglyceride [Mass/Vol] 184 mg/dL Abnormal <150 [facility] Comment on above: Performed By: #### B GLU #### [facility] [address] [place] [address] MRA Head w/o Contraston 07-0 MRA Head w/o Contrast Patient Name: SHOLA MIN [facility] ACCESSION EXAM DATE/TIME PROCEDURE ORDERING PROVIDER [id number] 10/01/2020 14:40 EDT MRA Head w/o Contrast [facility]ER[facility] GONSALEZ CPT code 96019 Reason For Exam (MRA Head w/o Contrast) ataxia Report MRI BRAIN WITHOUT and WITH CONTRAST: INDICATION: Transient alteration of awareness. COMPARISON: None. CONTRAST: 14 mL of Gadolinium MR scan of the brain was performed with sagittal T1 weighted, axial T2 weighted and FLAIR scans, and axial diffusion scans. Following the administration of Gadolinium, axial T1 weighted images were performed. The ventricles and sulci are enlarged, consistent with atrophy. There is no evidence of mass lesion or cerebral edema. There is no suggestion of intracranial hemorrhage on the gradient echo T2 sequence. There is no hydrocephalus, midline shift, or herniation. No epidural or subdural collections are present. On the FLAIR sequence a mild degree of increased signal is seen to affected germinal matrix adjacent to the lateral ventricles. There is no evidence of white matter ischemic change. Diffusion weighted images are negative. The sellar and parasellar anatomy demonstrates no gross abnormality. The brain stem is unremarkable. Within the posterior fossa of the anatomy of the cerebellar pontine cistern is unremarkable as are the internal auditory canals and labyrinthine structures. Flow void is seen within the vessels of the [place] of Ang. The globes and orbital contents are grossly normal. There is mucosal thickening of the maxillary sinuses and the ethmoid air cells. Bilateral mastoiditis is present. Following Gadolinium administration, there is no pathologic enhancement in the brain or meninges. There is normal enhancement of the cerebral vascular structures and choroid. MRA HEAD: 3D time of flight MR angiogram of the intracranial vessels was performed, with multiple maximum intensity projection images and review of the primary partitions. There is patent flow in the right and left internal carotid arteries, the distal right and left vertebral arteries, and basilar artery. There is no significant vertebrobasilar nor carotid siphon stenosis. There is good filling of the right and left anterior, middle, and posterior cerebral distribution vessels. There Magnetic Resonance Imaging Report is origin of the left [employer]. There is no critical intracranial stenosis. There is no evidence of aneurysm or vascular malformation. EXTRACRANIAL CAROTID MRA WITHOUT AND WITH CONTRAST: Scan parameters: Three-dimensional gradient echo along with dynamic contrast enhanced with 14 mL of Gadolinium, MRA sequence was performed through the extracranial carotid arterial circulation. Maximum intensity projection images were created in various orientations. Findings: The aortic arch demonstrates normal caliber. A normal branching pattern of the great vessels is noted without stenosis at the origins. The right common carotid artery demonstrates a normal caliber and contour. The right external carotid artery exhibits a normal caliber and contour. The right internal carotid artery exhibits a normal caliber and contour. Patent flow extends into the intracranial circulation. The left common carotid artery demonstrates a normal caliber and contour. The left external carotid artery exhibits a normal caliber and contour. The left internal carotid artery exhibits a normal caliber and contour. Patent flow extends into the intracranial circulation. There is also patent antegrade flow noted within the vertebral arteries. Reference: Measurement of carotid stenosis is a ratio based on conventional angiographic data from the NASCET trials with the smallest caliber of the internal carotid branch as the numerator and distal common carotid caliber as denominator. IMPRESSION: Atrophy. No acute intracranial process. Paranasal sinusitis and bilateral mastoiditis Mild mucosal thickening in the paranasal sinuses. Unremarkable intracranial MRA other than origin of the left [employer]. Unremarkable MRA of the carotid arteries. No evidence of carotid artery stenosis. Report Dictated on Workstation: [id number] Final Dictating Physician: DO GARCÍA ALFRED Signed Date and Time: 10/01/2020 3:16 pm Signed by: DO GARCÍA ALFRED Transcribed Date and Time: 10/01/2020 3:17 Normal [facility] MRA Neck w/ + w/o Contraston 10-01-2020 MRA Neck w/ + w/o Contrast Patient Name: SHOLA MARTINEZ [facility]#: [id number] Magnetic Resonance Imaging ACCESSION EXAM DATE/TIME PROCEDURE ORDERING PROVIDER [id number] 10/01/2020 15:07 EDT MRA Neck w/ + w/o CIERRA GONSALEZ Contrast CPT code 49495 Reason For Exam (MRA Neck w/ + w/o Contrast) ataxia Report MRI BRAIN WITHOUT and WITH CONTRAST: INDICATION: Transient alteration of awareness. COMPARISON: None. CONTRAST: 14 mL of Gadolinium MR scan of the brain was performed with sagittal T1 weighted, axial T2 weighted and FLAIR scans, and axial diffusion scans. Following the administration of Gadolinium, axial T1 weighted images were performed. The ventricles and sulci are enlarged, consistent with atrophy. There is no evidence of mass lesion or cerebral edema. There is no suggestion of intracranial hemorrhage on the gradient echo T2 sequence. There is no hydrocephalus, midline shift, or herniation. No epidural or subdural collections are present. On the FLAIR sequence a mild degree of increased signal is seen to affected germinal matrix adjacent to the lateral ventricles. There is no evidence of white matter ischemic change. Diffusion weighted images are negative. The sellar and parasellar anatomy demonstrates no gross abnormality. The brain stem is unremarkable. Within the posterior fossa of the anatomy of the cerebellar pontine cistern is unremarkable as are the internal auditory canals and labyrinthine structures. Flow void is seen within the vessels of the [place] of Ang. The globes and orbital contents are grossly normal. There is mucosal thickening of the maxillary sinuses and the ethmoid air cells. Bilateral mastoiditis is present. Following Gadolinium administration, there is no pathologic enhancement in the brain or meninges. There is normal enhancement of the cerebral vascular structures and choroid. MRA HEAD: 3D time of flight MR angiogram of the intracranial vessels was performed, with multiple maximum intensity projection images and review of the primary partitions. There is patent flow in the right and left internal carotid arteries, the distal right and left vertebral arteries, and basilar artery. There is no significant vertebrobasilar nor carotid siphon stenosis. There is good filling of the right Magnetic Resonance Imaging Report and left anterior, middle, and posterior cerebral distribution vessels. There is origin of the left [employer]. There is no critical intracranial stenosis. There is no evidence of aneurysm or vascular malformation. EXTRACRANIAL CAROTID MRA WITHOUT AND WITH CONTRAST: Scan parameters: Three-dimensional gradient echo along with dynamic contrast enhanced with 14 mL of Gadolinium, MRA sequence was performed through the extracranial carotid arterial circulation. Maximum intensity projection images were created in various orientations. Findings: The aortic arch demonstrates normal caliber. A normal branching pattern of the great vessels is noted without stenosis at the origins. The right common carotid artery demonstrates a normal caliber and contour. The right external carotid artery exhibits a normal caliber and contour. The right internal carotid artery exhibits a normal caliber and contour. Patent flow extends into the intracranial circulation. The left common carotid artery demonstrates a normal caliber and contour. The left external carotid artery exhibits a normal caliber and contour. The left internal carotid artery exhibits a normal caliber and contour. Patent flow extends into the intracranial circulation. There is also patent antegrade flow noted within the vertebral arteries. Reference: Measurement of carotid stenosis is a ratio based on conventional angiographic data from the NASCET trials with the smallest caliber of the internal carotid branch as the numerator and distal common carotid caliber as denominator. IMPRESSION: Atrophy. No acute intracranial process. Paranasal sinusitis and bilateral mastoiditis Mild mucosal thickening in the paranasal sinuses. Unremarkable intracranial MRA other than origin of the left [employer]. Unremarkable MRA of the carotid arteries. No evidence of carotid artery stenosis. Report Dictated on Workstation: [id number] Final Dictating Physician: DO GARCÍA ALFRED Signed Date and Time: 10/01/2020 3:16 pm Signed by: DO GARCÍA ALFRED Transcribed Date and Time: 10/01/2020 3:17 Normal [facility] MRI Brain w/ + w/o Contrasto n 10-01-2020 MRI Brain w/ + w/o Contrast [facility]: [id number] Resonance Imaging ACCESSION EXAM DATE/TIME PROCEDURE ORDERING PROVIDER [id number] 10/01/2020 15:08 EDT MRI Brain w/ + w/o CIERRA GONSALEZ Contrast CPT code 96776 Reason For Exam (MRI Brain w/ + w/o Contrast) ataxia Report MRI BRAIN WITHOUT and WITH CONTRAST: INDICATION: Transient alteration of awareness. COMPARISON: None. CONTRAST: 14 mL of Gadolinium MR scan of the brain was performed with sagittal T1 weighted, axial T2 weighted and FLAIR scans, and axial diffusion scans. Following the administration of Gadolinium, axial T1 weighted images were performed. The ventricles and sulci are enlarged, consistent with atrophy. There is no evidence of mass lesion or cerebral edema. There is no suggestion of intracranial hemorrhage on the gradient echo T2 sequence. There is no hydrocephalus, midline shift, or herniation. No epidural or subdural collections are present. On the FLAIR sequence a mild degree of increased signal is seen to affected germinal matrix adjacent to the lateral ventricles. There is no evidence of white matter ischemic change. Diffusion weighted images are negative. The sellar and parasellar anatomy demonstrates no gross abnormality. The brain stem is unremarkable. Within the posterior fossa of the anatomy of the cerebellar pontine cistern is unremarkable as are the internal auditory canals and labyrinthine structures. Flow void is seen within the vessels of the [place] of Ang. The globes and orbital contents are grossly normal. There is mucosal thickening of the maxillary sinuses and the ethmoid air cells. Bilateral mastoiditis is present. Following Gadolinium administration, there is no pathologic enhancement in the brain or meninges. There is normal enhancement of the cerebral vascular structures and choroid. MRA HEAD: 3D time of flight MR angiogram of the intracranial vessels was performed, with multiple maximum intensity projection images and review of the primary partitions. There is patent flow in the right and left internal carotid arteries, the distal right and left vertebral arteries, and basilar artery. There is no significant vertebrobasilar nor carotid siphon stenosis. There is good filling of the right Magnetic Resonance Imaging Report and left anterior, middle, and posterior cerebral distribution vessels. There is origin of the left [employer]. There is no critical intracranial stenosis. There is no evidence of aneurysm or vascular malformation. EXTRACRANIAL CAROTID MRA WITHOUT AND WITH CONTRAST: Scan parameters: Three-dimensional gradient echo along with dynamic contrast enhanced with 14 mL of Gadolinium, MRA sequence was performed through the extracranial carotid arterial circulation. Maximum intensity projection images were created in various orientations. Findings: The aortic arch demonstrates normal caliber. A normal branching pattern of the great vessels is noted without stenosis at the origins. The right common carotid artery demonstrates a normal caliber and contour. The right external carotid artery exhibits a normal caliber and contour. The right internal carotid artery exhibits a normal caliber and contour. Patent flow extends into the intracranial circulation. The left common carotid artery demonstrates a normal caliber and contour. The left external carotid artery exhibits a normal caliber and contour. The left internal carotid artery exhibits a normal caliber and contour. Patent flow extends into the intracranial circulation. There is also patent antegrade flow noted within the vertebral arteries. Reference: Measurement of carotid stenosis is a ratio based on conventional angiographic data from the NASCET trials with the smallest caliber of the internal carotid branch as the numerator and distal common carotid caliber as denominator. IMPRESSION: Atrophy. No acute intracranial process. Paranasal sinusitis and bilateral mastoiditis Mild mucosal thickening in the paranasal sinuses. Unremarkable intracranial MRA other than origin of the left [employer]. Unremarkable MRA of the carotid arteries. No evidence of carotid artery stenosis. Report Dictated on Workstation: [id number] Final Dictating Physician: DO GARCÍA ALFRED Signed Date and Time: 10/01/2020 3:16 pm Signed by: DO GARCÍA ALFRED Transcribed Date and Time: 10/01/2020 3:17 Normal [facility] Add on test from HISon 09-30 Add on test from HIS Accepted Normal [facility] Comment on above: Result Comment: Spec imen available & acceptable for analysis. Performed By: #### A DDON #### [facility] [address] [place] [address] CT Head or Brain w/o Contras ton 09-30-2020 CT Head or Brain w/o Contrast Patient Name: SHOLA MARTINEZ Computed Tomography ACCESSION EXAM DATE/TIME PROCEDURE ORDERING PROVIDER [id number] 09/30/2020 13:[address] Head or Brain w/o JESSE PACK Contrast CPT code 15952 Reason For Exam (CT Head or Brain w/o Contrast) dizziness, ataxia Report HEAD CT WITHOUT IV CONTRAST History: Dizziness, ataxia Comparison: 02/11/2020 Technique: Multislice volume acquisition axial CT sections were obtained from the base to the vertex of the brain without IV contrast enhancement. Multiplanar sagittal and coronal reconstructed images also obtained. Findings: There is mild brain atrophy with prominent cortical sulci, fissures, and ventricles. There are bilateral periventricular and subcortical hypodensities suggesting chronic ischemic white matter changes. There is no intracranial hemorrhage, mass effect, or midline shift in the brain. The exam is limited without IV contrast enhancement. There are carotid siphons atherosclerotic calcifications. There is bilateral maxillary and ethmoid sinuses and some mastoid air cells mucosal thickening with right maxillary retention cyst/polyp. There is leftward nasal septum deviation and remote bilateral nasal bones fractures, similar to last exam. IMPRESSION: Brain atrophy. Chronic ischemic white matter changes. No evidence of acute intracranial process. Report Dictated on Final Dictating Physician: MD HILL AHMAD Signed Date and Time: 09/30/2020 2:11 pm Signed by: MD HILL AHMAD Transcribed Date and Time: 09/30/2020 2:13 Normal [facility] Comp Panel with Mg Reflexon 09-30-2020 ALP [Catalytic activity/Vol] 83 U/L Normal 38-126 [facility] Comment on above: Performed By: #### B GLU #### [facility] [address] [place] [address] ALT [Catalytic activity/Vol] 28 U/L Normal 0-49 [facility] Comment on above: Result Comment: The ALT test is performed by an updated assay method. Please note that the reference intervals have been changed and are now sex specific. Performed By: #### B GLU #### [facility] [address] [place] [address] Anion gap [Moles/Vol] 11 mmol/L Normal 3-13 [facility] Comment on above: Performed By: #### B GLU #### [facility] [address] [place] [address] AST [Catalytic activity/Vol] 37 U/L Normal 15-46 [facility] Comment on above: Performed By: #### B GLU #### [facility] [address] [place] [address] Bilirubin [Mass/Vol] 1.7 mg/dL High 0.2-1.3 [facility] Comment on above: Performed By: #### B GLU #### [facility] [address] [place] [address] Calcium [Mass/Vol] 9.5 mg/dL Normal 8.4-10.4 [facility] Comment on above: Performed By: #### B GLU #### [facility] [address] [place] [address] CO2 [Moles/Vol] 21 mmol/L Low 22-30 [facility] Comment on above: Performed By: #### B GLU #### [facility] [address] [place] [address] Creatinine [Mass/Vol] 0.90 mg/dL Normal 0.52-1.25 [facility] Comment on above: Performed By: #### B GLU #### [facility] [address] [place] [address] GFR/1.73 sq M.predicted among blacks MDRD (S/P/Bld) [Vol rate/Area] mL/min/{1.73_m2} Normal >60 [facility] Comment on above: Performed By: #### B GLU #### [facility] [address] [place] [address] GFR/1.73 sq M.predicted among non-blacks MDRD (S/P/Bld) [Vol rate/Area] 85.6 mL/min/{1.73_m2} Normal >60 [facility] Comment on above: Result Comment: KDIG O guidelines provide the following GFR categories: Stage GFR(ml/min/1.73 m2) Terms G1 >=90 Normal or high G2 60-89 Mildly decreased* G3a 45-59 Mildly to moderately decreased G3b 30-44 Moderately to severely decreased G4 15-29 Severely decreased G5 <15 Kidney failure *Relative to young adult level. In the absence of evidence of kidney damage, neither GFR category G1 nor G2 fulfill the criteria for CKD. The CKD-EPI equation is validated in individuals 18 years of age and older. Currently the best equation for estimating glomerular filtration rate (GFR) from serum creatinine in children is the Bedside Long equation. It is less accurate in patients with extremes of muscle mass, restriction of dietary protein, ingestion of creatine, extra-renal metabolism of creatinine, or treatment with medications that affect renal tubular creatinine secretion. Performed By: #### B GLU #### [facility] [address] [place] [address] Glucose [Mass/Vol] 173 mg/dL High 70-100 [facility] Comment on above: Performed By: #### B GLU #### [facility] [address] [place] [address] Protein [Mass/Vol] 7.6 g/dL Normal 6.3-8.2 [facility] Comment on above: Performed By: #### B GLU #### [facility] [address] [place] [address] Urea nitrogen [Mass/Vol] 12 mg/dL Normal 7-20 [facility] Comment on above: Performed By: #### B GLU #### [facility] [address] [place] [address] Albumin [Mass/Vol] 4.3 g/dL Normal 3.5-5.0 [facility] Comment on above: Performed By: #### B GLU #### [facility] [address] [place] [address] Chloride [Moles/Vol] 102 mmol/L Normal 98-107 [facility] Comment on above: Performed By: #### B GLU #### [facility] [address] [place] [address] Potassium [Moles/Vol] 4.2 mmol/L Normal 3.5-5.1 [facility] Comment on above: Performed By: #### B GLU #### [facility] [address] [place] [address] Sodium [Moles/Vol] 135 mmol/L Normal 135-145 [facility] Comment on above: Performed By: #### B GLU #### [facility] [address] [place] [address] ED Provider Noteon ED Provider Note [facility] ED EMERGENCY DEPARTMENT ENCOUNTER Pt Name: Shola Martinez Birthdate 1950 Date of evaluation: 09/30/2020 Provider: Jesse Pack MD CHIEF COMPLAINT Chief Complaint Patient presents with ? Fatigue I wore a KN95 mask for the entirety of this encounter. HISTORY OF PRESENT ILLNESS (Location/Symptom, Timing/Onset,Context/Setti ng, Quality, Duration, Modifying Factors, Severity) Note limiting factors. HPI Shola Martinez is a 70 y.o. male who presents to the emergency department who presents with a complaint of weakness. He states he has felt off balance for the past 3 or 4 days. States he is walking in his living room as per his doctor's instructions to keep up with his exercise and is noticed a change in his ambulation over the past several days where he is leaning and falling to the right. He states he feels dizzy. He states today came to the point where he felt he was unable to stand up due to the fear of falling. Denies chest pain. Denies nausea vomiting diarrhea. For the paramedics he complained that he could not get his glucose monitor to read his glucose strips and was worried about his blood sugar. Paramedics noted his blood sugar was 157. No specific exacerbating or alleviating factors to his symptoms Patient states he chronically has slurring of his words and this is not new or different in any way. Nursing Notes were reviewed. REVIEW OFSYSTEMS (2+ for level 4; 10+ level 5) Review of Systems pertinent positives as above per history of present illness. Other systems reviewed and found to be negative to a total of 10 systems reviewed. PAST MEDICAL HISTORY Past Medical History: Diagnosis Date ? Bilateral leg edema chronic intermittent ? Blurry vision ? CAD (coronary artery disease) ? Cataract ? Chronic obstructive pulmonary disease (HCC) 08/20/2018 ? CKD (chronic kidney disease) stage 2, GFR 60-89 ml/min 09/12/2019 ? Community acquired pneumonia 04/2016 ? Diabetic neuropathy ([facility]) ? Dizziness after head injury 05/2013 ? Hx of blood clots ? Hyperlipidemia ? Hypertension ? Morbid obesity ([facility]) 05/21/2018 ? Recurrent UTI 02/03/2018 ? Sepsis due to gram-negative UTI ([facility]) 12/11/2017 ? Sleep apnea ? Type II or unspecified type diabetes mellitus without mention of complication, not stated as uncontrolled ? Weakness generalized after head injury 05/2013 SURGICAL HISTORY Past Surgical History: Procedure Laterality Date ? APPENDECTOMY 1989 ? CATARACT REMOVAL ? CHOLECYSTECTOMY 08/2015 ? CORONARY ANGIOPLASTY 09/2016 ? EYE SURGERY Left 08/27/2018 ? FOOT SURGERY Left great toe and next toe removed ? HERNIA REPAIR 1991 ? OTHER SURGICAL HISTORY Right 07/30/2018 PHACOemulisification pupilloplasty malyugin right posterior chamber intraocular lens ? TONSILLECTOMY 1955 CURRENT MEDICATIONS Previous Medications ACCU-CHEK SOFTCLIX LANCETS MISC TEST BLOOD SUGAR 3 TIMES DAILY ACETAMINOPHEN (TYLENOL) 325 MG TABLET Take 2 tablets by mouth every 4 hours as needed for Pain or Fever ASPIRIN 81 MG CHEWABLE TABLET Take 1 tablet by mouth daily Indications: Type 2 Diabetes ATORVASTATIN (LIPITOR) 20 MG TABLET Take 1 tablet by mouth every evening Indications: High Amount of Fats in the Blood BLOOD GLUCOSE TEST STRIPS (ACCU-CHEK NICKY) STRIP 1 each by In Vitro route 3 times daily As needed. FLUTICASONE (FLONASE) 50 MCG/ACT NASAL SPRAY 1 spray by Nasal route daily as needed for Rhinitis FUROSEMIDE (LASIX) 20 MG TABLET Take 1 tablet by mouth daily as needed (lower extremity swelling) GLUCOSE MONITORING KIT (FREESTYLE) MONITORING KIT 1 kit by Does not apply route daily GLUCOSE MONITORING KIT (FREESTYLE) MONITORING KIT 1 kit by Does not apply route daily ISOSORBIDE MONONITRATE (IMDUR) 30 MG EXTENDED RELEASE TABLET TAKE 1 TABLET BY MOUTH EVERY DAY LORATADINE (CLARITIN) 10 MG TABLET TAKE 1 TABLET BY MOUTH EVERY DAY LOSARTAN (COZAAR) 25 MG TABLET Take 1 tablet by mouth every morning METFORMIN (GLUCOPHAGE-XR) 750 MG EXTENDED RELEASE TABLET TAKE 2 TABLETS BY MOUTH EVERY DAY WITH DINNER MISC. DEVICES (PRECISION SCALE) MISC Weight daily. MISC. DEVICES (PULSE OXIMETER) MISC 1 each by Does not apply route once for 1 dose MISC. DEVICES (WHEELCHAIR) MISC 1 each by Does not apply route daily Motorized wheelchair MULTIPLE VITAMINS-MINERALS (CEROVITE SENIOR) TABS TAKE 1 TABLET BY MOUTH EVERY MORNING OZEMPIC, 0.25 OR 0.5 MG/DOSE, 2 MG/1.5ML SOPN INJECT 0.5 MG SUB-Q EVERY WEEK ON FRIDAYS PROAIR HFA 108 (90 BASE) MCG/ACT INHALER INHALE 2 PUFFS ORALLY INTO THE LUNGS EVERY 4 HOURS NEEDED FOR WHEEZING OR SHORTNESS OF BREATH WITH SPACER (AND MASK IF INDICATED) TAMSULOSIN (FLOMAX) 0.4 MG CAPSULE TAKE 1 CAPSULE BY MOUTH EVERY DAY TRADJENTA 5 MG TABLET TAKE 1 TABLET BY MOUTH EVERY DAY ALLERGIES Patient has no known allergies. FAMILY HISTORY Family History Problem Relation Age of Onset ? Diabetes Mot (more content not included)... Normal [facility] Glucose,Bedsideon 09-30-2020 Glucose [Mass/Vol] 159 mg/dL High 70-100 [facility] [employer] [facility] Comment on above: Result Comment: Test performed by glucose meter. Results may be 10%-15% lower than serum/plasma values. (CLIA ID [id number]) Performed By: #### A DDON #### [facility] [address] [place] [address] Glucose [Mass/Vol] 118 mg/dL High 70-100 [facility] Comment on above: Result Comment: Test performed by glucose meter. Results may be 10%-15% lower than serum/plasma values. (CLIA ID [id number]) Performed By: #### B GLU #### [facility] [address] [place] [address] Glucose [Mass/Vol] 171 mg/dL High 70-100 [facility] Comment on above: Result Comment: Test performed by glucose meter. Results may be 10%-15% lower than serum/plasma values. (CLIA ID [id number]) Performed By: #### B GLU #### [facility] [address] [place] [address] Hemoglobin A1Con 09-30-2020 Glucose [Mass/Vol] 131 mg/dL Normal [facility] Comment on above: Performed By: #### B GLU #### [facility] [address] [place] [address] HbA1c (Bld) [Mass fraction] 6.2 % Abnormal [facility] Comment on above: Result Comment: Norm al less than 5.7% Prediabetes 5.7% to 6.4% Diabetes 6.5% or higher --HgbA1C levels may not be accurate in patients who have renal disease, received recent blood transfusions, are anemic, or who have dyshemoglobinemia. Performed By: #### B GLU #### [facility] [address] [place] [address] Hemogram w/ Autodiffon 09-30 Abs Baso Cnt 0.0 10*3/uL Normal 0.0-0.2 [facility] Comment on above: Performed By: #### B GLU #### [facility] [address] [place] [address] Abs Neutrophile Cnt 5.9 10*3/uL Normal 1.8-7.0 [facility] [employer] [facility] Comment on above: Performed By: #### B GLU #### [facility] [address] [place] [address] Basophils/100 WBC (Bld) 0.5 % Normal 0.0-2.0 [facility] Comment on above: Performed By: #### B GLU #### [facility] [address] [place] [address] Eosinophils (Bld) [#/Vol] 0.4 10*3/uL Normal 0.0-0.5 [facility] Comment on above: Performed By: #### B GLU #### [facility] [address] [place] [address] Eosinophils/100 WBC (Bld) 4.7 % Normal 1.0-6.0 [facility] Comment on above: Performed By: #### B GLU #### [facility] [address] [place] [address] Erythrocyte distribution width (RBC) [Ratio] 12.2 % Normal 11.5-14.5 [facility] Comment on above: Performed By: #### B GLU #### [place] [address] [place] [address] Granulocytes/100 WBC (Bld) 74.9 % Normal 40.0-80.0 [facility] Comment on above: Performed By: #### B GLU #### [facility] [address] [place] [address] Hematocrit (Bld) [Volume fraction] 44.2 % Normal 40.0-52.0 [facility] Comment on above: Performed By: #### B GLU #### [facility] [address] [place] [address] Hemoglobin (Bld) [Mass/Vol] 15.4 g/dL Normal 13.0-18.0 [facility] Comment on above: Performed By: #### B GLU #### [facility] [address] [place] [address] Lymphocytes (Bld) [#/Vol] 1.2 10*3/uL Normal 1.0-4.3 [facility] Comment on above: Performed By: #### B GLU #### [facility] [address] [place] [address] Lymphocytes/100 WBC (Bld) 14.9 % Low 20.0-40.0 [facility] Comment on above: Performed By: #### B GLU #### [facility] [address] [place] [address] MCH (RBC) [Entitic mass] 31.2 pg Normal 26.0-34.0 [facility] Comment on above: Performed By: #### B GLU #### [facility] [address] [place] [address] MCHC 34.9 % Normal 32.0-36.0 [facility] Comment on above: Performed By: #### B GLU #### [facility] [address] [place] [address] MCV (RBC) [Entitic vol] 89.5 fL Normal 80.0-98.0 [facility] Comment on above: Performed By: #### B GLU #### [facility] [address] [place] [address] Monocytes (Bld) [#/Vol] 0.4 10*3/uL Normal 0.0-0.8 [facility] Comment on above: Performed By: #### B GLU #### [facility] [address] [place] [address] Monocytes/100 WBC (Bld) 5.0 % Normal 2.0-10.0 [facility] Comment on above: Performed By: #### B GLU #### [facility] [address] [place] [address] Platelet mean volume (Bld) [Entitic vol] 6.7 fL Low 7.4-10.4 [facility] Comment on above: Performed By: #### B GLU #### [facility] [address] [place] [address] Platelets (Bld) [#/Vol] 170 10*3/uL Normal 140-440 [facility] Comment on above: Performed By: #### B GLU #### [facility] [address] [place] [address] RBC (Bld) [#/Vol] 4.94 10*6/uL Normal 4.40-5.90 [facility] Comment on above: Performed By: #### B GLU #### [facility] [address] [place] [address] WBC (Bld) [#/Vol] 8.0 10*3/uL Normal 3.6-10.7 [facility] Comment on above: Performed By: #### B GLU #### [facility] [address] [place] [address] Troponin Ion 09-30-2020 Troponin I.cardiac [Mass/Vol] ng/mL Normal 0.000-0.03 4 [facility] Comment on above: Result Comment: . Performed By: #### A DDON #### [facility] [address] [place] [address] Troponin I.cardiac [Mass/Vol] ng/mL Normal 0.000-0.03 4 [facility] Comment on above: Result Comment: . Performed By: #### B GLU #### [facility] [address] [place] [address] CNPNon 07-16-2020 CNPN Telephone (HLPRAD) -- SHOLA MARTINEZ ( ) 1950 M Date Time Provider Department 07/16/20 ESTELA LAU During your visit today, we recorded the following information about you: Estela Lau PA-C 07/16/2020 12:08 PM Signed Number is invalid - attempted to call patient for colonoscopy scheduling. Patient is due per medical records Allergies As of Date: 07/16/2020 (No Known Allergies) Date Reviewed: 01/20/2014 Reviewed by: Reny (Rn) EMA Moreno - Fully Assessed Reason for Visit: coloscopy scheduling [Other] Prescriptions as of 07/16/2020 Sig: METFORMIN 500 MG TABLET Take 500 mg by mouth twice da* ATORVASTATIN 40 MG TABLET Take 40 mg by mouth daily at * ASPIRIN 81 MG CHEWABLE TABLET Take 81 mg by mouth once demi* MULTIVITAMIN ORAL Take by mouth daily with mario* CHOLECALCIFEROL (VITAMIN D3) * Take by mouth. MECLIZINE 25 MG TABLET Take 25 mg by mouth three alyce* SENNOSIDES 8.6 MG TABLET Take 8.6 mg by mouth twice da* FUROSEMIDE 20 MG TABLET Take 20 mg by mouth twice radha* ACETAMINOPHEN 325 MG TABLET Take 650 mg by mouth every 6 * POLYETHYLENE GLYCOL 3350 17 G* Take 17 g by mouth as needed.* Problem List As Of Date: 07/16/2020 (None) Encounter Status:Closed by ESTELA LAU PA-C on 07/16/20 [facility] [place] CT Cervical Spine WO Jordi jan 02-11-2020 Patient Name: SHOLA URBINA ND ---CT--- Exam Date/Time 02/11/2020 21:46:[address] Spine Cervical w/o Contrast Ordering Physician CAESAR ALBRECHT AMY L Accession Number [id number] CPT4 Codes 41660 () Reason For Exam FAll Report CT cervical spine without contrast HISTORY: Fall, pain Protocol: 1 mm axial images without intravenous contrast, multiplanar reconstructions No fracture or dislocation. Mild mid cervical spine degenerative changes. IMPRESSION: No acute findings. Report Dictated on --- Final --- Dictating Physician: MD FARRAR MALAY Signed Date and Time: 02/11/2020 9:51 pm Signed by: MD FARRAR MALAY Transcribed Date and Time: 02/11/2020 9:52 [facility] Incoming Radiology Results From [facility] - 02/11/2020 9:52 PM EST Patient Name: SHOLA MARTINEZ ---CT--- Exam Date/Time 02/11/2020 21:46:[address] Spine Cervical w/o Contrast Ordering Physician CAESAR ALBRECHT AMY L Accession Number [id number] CPT4 Codes 14511 () Reason For Exam FAll Report CT cervical spine without contrast HISTORY: Fall, pain Protocol: 1 mm axial images without intravenous contrast, multiplanar reconstructions No fracture or dislocation. Mild mid cervical spine degenerative changes. IMPRESSION: No acute findings. Report Dictated on --- Final --- Dictating Physician: MD FARRAR MALAY Signed Date and Time: 02/11/2020 9:51 pm Signed by: MD FARRAR MALAY Transcribed Date and Time: 02/11/2020 9:52 [place], [place] CT Head WO Contraston 2019 Patient Name: SHOLA URBINA ND ---CT--- Exam Date/Time 02/11/2020 21:46:[address] Head or Brain w/o Contrast Ordering Physician CAESAR ALBRECHT AMY L Accession Number [id number] CPT4 Codes 26040 () Reason For Exam Fall Report CT head without contrast History: Fall, pain Protocol: 3 mm axial images without IV contrast There is no evidence of intracranial hemorrhage, extra-axial fluid collection, hydrocephalus, or acute infarct. Chronic white matter ischemic changes. No evidence of a mass of mass affect. The visualized portions of the paranasal sinuses and the mastoid air cells are clear. IMPRESSION: No acute findings. Report Dictated on --- Final --- Dictating Physician: MD FARRAR MALAY Signed Date and Time: 02/11/2020 9:47 pm Signed by: MD FARRAR MALAY Transcribed Date and Time: 02/11/2020 9:48 [place], [place] [facility] Incoming Radiology Results From [facility] - 02/11/2020 9:49 PM EST Patient Name: SHOLA MARTINEZ ---CT--- Exam Date/Time 02/11/2020 21:46:[address] Head or Brain w/o Contrast Ordering Physician CAESAR ALBRECHT AMY L Accession Number [id number] CPT4 Codes 82367 () Reason For Exam Fall Report CT head without contrast History: Fall, pain Protocol: 3 mm axial images without IV contrast There is no evidence of intracranial hemorrhage, extra-axial fluid collection, hydrocephalus, or acute infarct. Chronic white matter ischemic changes. No evidence of a mass of mass affect. The visualized portions of the paranasal sinuses and the mastoid air cells are clear. IMPRESSION: No acute findings. Report Dictated on --- Final --- Dictating Physician: MD FARRAR MALAY Signed Date and Time: 02/11/2020 9:47 pm Signed by: MD FARRAR MALAY Transcribed Date and Time: 02/11/2020 9:48 [facility] [place] XR LUMBAR SPINE (2-3 VIEWS)o n 02-11-2020 Patient Name: SHOLA URBINA ND ---Diagnostic Radiology--- Exam Date/Time 02/11/2020 21:31:42 EST Exam CR Spine Lumbosacral 2 or 3 Views Ordering Physician CAESAR ALBRECHT AMY L Accession Number [id number] CPT4 Codes 94644 () Reason For Exam Fall Report Lumbosacral spine three views HISTORY: Fall, pain No fracture or dislocation. Mild degenerative changes. IMPRESSION: No acute findings. Report Dictated on --- Final --- Dictating Physician: MD FARRAR MALAY Signed Date and Time: 02/11/2020 9:45 pm Signed by: MD FARRAR MALAY Transcribed Date and Time: 02/11/2020 9:46 [facility] 02/11/2020 9:46 PM EST Patient Name: SHOLA MARTINEZ ---Diagnostic Radiology--- Exam Date/Time 02/11/2020 21:31:42 EST Exam CR Spine Lumbosacral 2 or 3 Views Ordering Physician CAESAR ALBRECHT AMY L Accession Number [id number] CPT4 Codes 88951 () Reason For Exam Fall Report Lumbosacral spine three views HISTORY: Fall, pain No fracture or dislocation. Mild degenerative changes. IMPRESSION: No acute findings. Report Dictated on --- Final --- Dictating Physician: MD FARRAR MALAY Signed Date and Time: 02/11/2020 9:45 pm Signed by: MD FARRAR MALAY Transcribed Date and Time: 02/11/2020 9:46 [place], [place] Basic Metabolic Panel w/ Ref steve to MGon 09-16-2019 Anion gap [Moles/Vol] 11 mmol/L [place], [place] Calcium [Mass/Vol] 8.3 mg/dL Low 8.4 - 10. 4 mg/dL [place], [place] Chloride [Moles/Vol] 102 mmol/L 98 - 10 7 mmol/L [place], [place] CO2 [Moles/Vol] 23 mmol/L 22 - 30 mmol/L [place] Creatinine [Mass/Vol] 0.72 mg/dL 0.52 - 1.25 mg/dL [place] EGFR IF NonAfrican [place] >90.0 >60 mL/min [place] Comment on above: KDIGO guidelines pro vide the following GFR categories: Stage GFR(ml/min/1.73 m2) Terms G1 >=90 Normal or high G2 60-89 Mildly decreased* G3a 45-59 Mildly to moderately decreased G3b 30-44 Moderately to severely decreased G4 15-29 Severely decreased G5 <15 Kidney failure *Relative to young adult level. In the absence of evidence of kidney damage, neither GFR category G1 nor G2 fulfill the criteria for CKD. The CKD-EPI equation is validated in individuals 18 years of age and older. Currently the best equation for estimating glomerular filtration rate (GFR) from serum creatinine in children is the Bedside Long equation. It is less accurate in patients with extremes of muscle mass, restriction of dietary protein, ingestion of creatine, extra-renal metabolism of creatinine, or treatment with medications that affect renal tubular creatinine secretion. GFR/1.73 sq M predicted among blacks MDRD (S/P/Bld) [Vol rate/Area] mL/min/{1.73_m2} >60 mL/min [place] Glucose [Mass/Vol] 142 mg/dL High 70 - 100 mg/dL [place] Interpretation and review of laboratory results Abnormal [place] Potassium [Moles/Vol] 4.0 mmol/L 3.5 - 5.1 mmol/L [place] Sodium [Moles/Vol] 136 mmol/L 135 - 145 mmol/L [place] Urea nitrogen [Mass/Vol] 8 mg/dL 7 - 20 mg/dL [place] Test Performed by [facility], [address] [place], [place] [id number] [place] [address] CBCon 09-16-2019 Erythrocyte distribution width (RBC) [Ratio] 12.7 % 11.5 - 14.5 % [place] Hematocrit (Bld) [Volume fraction] 38.1 % Low 40 - 52 % [place] Hemoglobin (Bld) [Mass/Vol] 13.3 g/dL 13 - 18 g/dL [place] Interpretation and review of laboratory results Abnormal [place] MCH (RBC) [Entitic mass] 31.2 pg 26 - 34 pg [place] MCHC (RBC) [Mass/Vol] 34.9 % 32 - 36 % [place] MCV (RBC) [Entitic vol] 89.5 fL 80 - 98 fL [place] Platelet mean volume (Bld) [Entitic vol] 6.5 fL Low 7.4 - 10.4 fL [place] Platelets (Bld) [#/Vol] 202 10*3/uL 140 - 440 10*3/uL [place] RBC (Bld) [#/Vol] 4.25 10*6/uL Low 4.4 - 5.9 10*6/uL [place] WBC (Bld) [#/Vol] 6.6 10*3/uL 3.6 - 10.7 10*3/uL [place] Test Performed by [facility], [address] [place], [place], [place] [id number] [place] [address] POCT Glucoseon 09-16-2019 Glucose [Mass/Vol] 182 mg/dL High 70 - 100 mg/dL [place] Comment on above: Test performed by ucose meter. Results may be 10%-15% lower than serum/plasma values. (CLIA ID [id number]) Interpretation and review of laboratory results Abnormal [place] Test Performed by [facility], [address] [place], [place] [id number] [place] [address] Glucose [Mass/Vol] 258 mg/dL High 70 - 100 mg/dL [place] Comment on above: Test performed by gl ucose meter. Results may be 10%-15% lower than serum/plasma values. (CLIA ID [id number]) Interpretation and review of laboratory results Abnormal [place] Test Performed by [facility], [address], [place], [place] [address] [place] Glucose [Mass/Vol] 138 mg/dL High 70 - 100 mg/dL [place] Comment on above: Test performed by gl ucose meter. Results may be 10%-15% lower than serum/plasma values. (CLIA ID [id number]) Interpretation and review of laboratory results Abnormal [place] Test Performed by [facility], [address], [place], [place] [id number] [place] [address] Basic Metabolic Panel w/ Ref steve to MGon 09-15-2019 Anion gap [Moles/Vol] 10 mmol/L [place] Calcium [Mass/Vol] 8.2 mg/dL Low 8.4 - 10. 4 mg/dL [place] Chloride [Moles/Vol] 100 mmol/L 98 - 10 7 mmol/L [place] CO2 [Moles/Vol] 24 mmol/L 22 - 30 mmol/L [place] Creatinine [Mass/Vol] 0.71 mg/dL 0.52 - 1.25 mg/dL [place] EGFR IF NonAfrican [place] >90.0 >60 mL/min [place] Comment on above: KDIGO guidelines pro vide the following GFR categories: Stage GFR(ml/min/1.73 m2) Terms G1 >=90 Normal or high G2 60-89 Mildly decreased* G3a 45-59 Mildly to moderately decreased G3b 30-44 Moderately to severely decreased G4 15-29 Severely decreased G5 <15 Kidney failure *Relative to young adult level. In the absence of evidence of kidney damage, neither GFR category G1 nor G2 fulfill the criteria for CKD. The CKD-EPI equation is validated in individuals 18 years of age and older. Currently the best equation for estimating glomerular filtration rate (GFR) from serum creatinine in children is the Bedside Long equation. It is less accurate in patients with extremes of muscle mass, restriction of dietary protein, ingestion of creatine, extra-renal metabolism of creatinine, or treatment with medications that affect renal tubular creatinine secretion. GFR/1.73 sq M predicted among blacks MDRD (S/P/Bld) [Vol rate/Area] mL/min/{1.73_m2} >60 mL/min [place] Glucose [Mass/Vol] 136 mg/dL High 70 - 100 mg/dL [place] Interpretation and review of laboratory results Abnormal [place] Potassium [Moles/Vol] 3.9 mmol/L 3.5 - 5.1 mmol/L [place] Sodium [Moles/Vol] 133 mmol/L [place] 135 - 145 mmol/L [place] Urea nitrogen [Mass/Vol] 7 mg/dL 7 - 20 mg/dL [place] Test Performed by [facility], [address] [place], [place] [id number] [place] [address] CBCon 09-15-2019 Erythrocyte distribution width (RBC) [Ratio] 12.7 % 11.5 - 14.5 % [place] Hematocrit (Bld) [Volume fraction] 37.4 % Low 40 - 52 % [place] Hemoglobin (Bld) [Mass/Vol] 13.0 g/dL 13 - 18 g/dL [place] Interpretation and review of laboratory results Abnormal [place] MCH (RBC) [Entitic mass] 31.2 pg 26 - 34 pg [place] MCHC (RBC) [Mass/Vol] 34.7 % 32 - 36 % [place] MCV (RBC) [Entitic vol] 89.9 fL 80 - 98 fL [place] Platelet mean volume (Bld) [Entitic vol] 6.4 fL Low 7.4 - 10.4 fL [place] Platelets (Bld) [#/Vol] 198 10*3/uL 140 - 440 10*3/uL [place] RBC (Bld) [#/Vol] 4.15 10*6/uL Low 4.4 - 5.9 10*6/uL [facility] WBC (Bld) [#/Vol] 8.2 10*3/uL 3.6 - 10.7 10*3/uL [facility], [place] Test Performed by [facility], [address] [place] [address] [facility] COVID-19on 09-15-2019 SARS-CoV-2 Not Detected Expected Result: Not Detected _ Real-time, RT-PCR performed on the [employer] System by the [facility]. Negative results do not preclude SARS-CoV-2 infection and should not be used as the sole basis for treatment or other patient management decisions. This assay was developed and its performance characteristics determined by the [facility]. This test has been developed under an Emergency Use Authorization (EUA) granted by the FDA for the qualitative detection of SARS-CoV-2 nucleic acid (validation review pending). [facility] Test Performed by [facility], [address] [place] [id number] Specimen Source Comment:Nasopharyngeal Swab [facility] Otheron 09-15-2019 Interpretation and review of laboratory results Abnormal [facility] Test Performed by [facility], [address], [place], [place] [address] [facility] [place] POCT Glucoseon 09-15-2019 Glucose [Mass/Vol] 209 mg/dL High 70 - 100 mg/dL [facility] [place] Comment on above: Test performed by gl ucose meter. Results may be 10%-15% lower than serum/plasma values. (CLIA ID [id number]) Interpretation and review of laboratory results Abnormal [facility], [place] Test Performed by [facility], [address] [place], [place] [address] [facility], [place] Glucose [Mass/Vol] 140 mg/dL High 70 - 100 mg/dL [facility] [place] Comment on above: Test performed by gl ucose meter. Results may be 10%-15% lower than serum/plasma values. (CLIA ID [id number]) Interpretation and review of laboratory results Abnormal [place] Test Performed by [facility], [address], [place], [place] [address] [place] Glucose [Mass/Vol] 213 mg/dL High 70 - 100 mg/dL [place] Comment on above: Test performed by gl ucose meter. Results may be 10%-15% lower than serum/plasma values. (CLIA ID [id number]) Glucose [Mass/Vol] 145 mg/dL High 70 - 100 mg/dL [place] Comment on above: Test performed by gl ucose meter. Results may be 10%-15% lower than serum/plasma values. (CLIA ID [id number]) Glucose [Mass/Vol] 163 mg/dL High 70 - 100 mg/dL [place] Comment on above: Test performed by gl ucose meter. Results may be 10%-15% lower than serum/plasma values. (CLIA ID [id number]) Interpretation and review of laboratory results Abnormal [place] Test Performed by [facility], [address], [place], [place] [address] [place] Basic Metabolic Panel w/ Ref steve to MGon 09-14-2019 Anion gap [Moles/Vol] 12 mmol/L [place] Calcium [Mass/Vol] 7.9 mg/dL [place] 8.4 - 10. 4 mg/dL [place] Chloride [Moles/Vol] 100 mmol/L 98 - 10 7 mmol/L [place] CO2 [Moles/Vol] 22 mmol/L 22 - 30 mmol/L [place] Creatinine [Mass/Vol] 0.72 mg/dL 0.52 - 1.25 mg/dL [place] EGFR IF NonAfrican [place] >90.0 >60 mL/min [place] Comment on above: KDIGO guidelines pro vide the following GFR categories: Stage GFR(ml/min/1.73 m2) Terms G1 >=90 Normal or high G2 60-89 Mildly decreased* G3a 45-59 Mildly to moderately decreased G3b 30-44 Moderately to severely decreased G4 15-29 Severely decreased G5 <15 Kidney failure *Relative to young adult level. In the absence of evidence of kidney damage, neither GFR category G1 nor G2 fulfill the criteria for CKD. The CKD-EPI equation is validated in individuals 18 years of age and older. Currently the best equation for estimating glomerular filtration rate (GFR) from serum creatinine in children is the Bedside Long equation. It is less accurate in patients with extremes of muscle mass, restriction of dietary protein, ingestion of creatine, extra-renal metabolism of creatinine, or treatment with medications that affect renal tubular creatinine secretion. GFR/1.73 sq M predicted among blacks MDRD (S/P/Bld) [Vol rate/Area] mL/min/{1.73_m2} >60 mL/min [place] Glucose [Mass/Vol] 139 mg/dL High 70 - 100 mg/dL [place] Interpretation and review of laboratory results Abnormal [place] Potassium [Moles/Vol] 3.8 mmol/L 3.5 - 5.1 mmol/L [place] Sodium [Moles/Vol] 133 mmol/L [place] 135 - 145 mmol/L [place] Urea nitrogen [Mass/Vol] 8 mg/dL 7 - 20 mg/dL [place] Test Performed by [facility], [address] [place], [place] [id number] [place] [address] CBCon 09-14-2019 Erythrocyte distribution width (RBC) [Ratio] 12.8 % 11.5 - 14.5 % [place] Hematocrit (Bld) [Volume fraction] 37.8 % Low 40 - 52 % [place] Hemoglobin (Bld) [Mass/Vol] 13.1 g/dL 13 - 18 g/dL [place] Interpretation and review of laboratory results Abnormal [place] MCH (RBC) [Entitic mass] 31.2 pg 26 - 34 pg [place] MCHC (RBC) [Mass/Vol] 34.6 % 32 - 36 % [place] MCV (RBC) [Entitic vol] 90.1 fL 80 - 98 fL [place] Platelet mean volume (Bld) [Entitic vol] 6.4 fL Low 7.4 - 10.4 fL [place] Platelets (Bld) [#/Vol] 173 10*3/uL 140 - 440 10*3/uL [facility] [place] RBC (Bld) [#/Vol] 4.19 10*6/uL [place] 4.4 - 5.9 10*6/uL [facility] WBC (Bld) [#/Vol] 9.2 10*3/uL 3.6 - 10.7 10*3/uL [place] Test Performed by [facility], [address], [place], [place] [address] [facility] [place] Culture, Urineon 09-14-2019 Bacteria identified Cx Nom (U) Enterococcus faecalis Abnormal [place] Bacteria identified Cx Nom (U) >100,000 CFU/ml [place] Interpretation and review of laboratory results Abnormal [facility] [place] Test Performed by [facility], [address] [place] [id number] Specimen Source Comment:Urine, clean catch [place] POCT Glucoseon 09-14-2019 Glucose [Mass/Vol] 196 mg/dL High 70 - 100 mg/dL [place] Comment on above: Test performed by gl ucose meter. Results may be 10%-15% lower than serum/plasma values. (CLIA ID [id number]) Interpretation and review of laboratory results Abnormal [facility] [place] Test Performed by [facility], [address], [place], [place] [id number] [place] [address] Glucose [Mass/Vol] 134 mg/dL High 70 - 100 mg/dL [place] Comment on above: Test performed by gl ucose meter. Results may be 10%-15% lower than serum/plasma values. (CLIA ID [id number]) Interpretation and review of laboratory results Abnormal [place] Test Performed by [facility], [address], [place], [place] [address] [place] Glucose [Mass/Vol] 143 mg/dL High 70 - 100 mg/dL [facility] [place] Comment on above: Test performed by gl ucose meter. Results may be 10%-15% lower than serum/plasma values. (CLIA ID [id number]) Interpretation and review of laboratory results Abnormal [place] Test Performed by [facility], [address] [place], [place] [address] [facility] [employer] Glucose [Mass/Vol] 144 mg/dL High 70 - 100 mg/dL [facility] [employer] Comment on above: Test performed by ucose meter. Results may be 10%-15% lower than serum/plasma values. (CLIA ID [id number]) Interpretation and review of laboratory results Abnormal [place], [employer] Test Performed by [facility], [address] [place], [place] [address] [place], [place] [address] T4, Freeon 09-14-2019 Free T4 [Mass/Vol] 1.26 ng/dL 0.78 - 2.19 ng/dL [facility] [employer] Test Performed by [facility], [address] [place] [address] TSH without Reflexon 020 TSH Qn 1.661 u[IU]/mL 0.465 - 4.68 u[IU]/mL [facility] Test Performed by [facility], [address] [place], [place] [id number] [place], [place] [address] Vitamin D 25 Hydroxyon 09-13 Interpretation and review of laboratory results Abnormal [facility] Vit D, 25-Hydroxy 19 ng/mL Low 30 - 100 ng/mL [facility] Comment on above: Therapy is based on measurement of Total 25-OHD with the following classification levels: Less than 20 ng/mL: Indicative of Vit D deficiency 20-30 ng/mL: Suggests Vit D insufficiency Optimal: Greater than or equal to 30 ng/mL Test performed by [employer], measuring Total Vitamin D, not individual fractions. Test Performed by [facility], [address] [place] [address] Street[place], [employer] Basic Metabolic Panel w/ Ref steve to MGon 09-13-2019 Anion gap [Moles/Vol] 13 mmol/L [facility] [place] Calcium [Mass/Vol] 7.3 mg/dL Low 8.4 - 10. 4 mg/dL [place] Chloride [Moles/Vol] 103 mmol/L 98 - 10 7 mmol/L [place] CO2 [Moles/Vol] 19 mmol/L Low 22 - 30 mmol/L [place] Creatinine [Mass/Vol] 0.7 mg/dL 0.52 - 1.25 mg/dL [place] EGFR IF NonAfrican [place] >90.0 >60 mL/min [place] Comment on above: KDIGO guidelines pro vide the following GFR categories: Stage GFR(ml/min/1.73 m2) Terms G1 >=90 Normal or high G2 60-89 Mildly decreased* G3a 45-59 Mildly to moderately decreased G3b 30-44 Moderately to severely decreased G4 15-29 Severely decreased G5 <15 Kidney failure *Relative to young adult level. In the absence of evidence of kidney damage, neither GFR category G1 nor G2 fulfill the criteria for CKD. The CKD-EPI equation is validated in individuals 18 years of age and older. Currently the best equation for estimating glomerular filtration rate (GFR) from serum creatinine in children is the Bedside Long equation. It is less accurate in patients with extremes of muscle mass, restriction of dietary protein, ingestion of creatine, extra-renal metabolism of creatinine, or treatment with medications that affect renal tubular creatinine secretion. GFR/1.73 sq M predicted among blacks MDRD (S/P/Bld) [Vol rate/Area] mL/min/{1.73_m2} >60 mL/min [place] Glucose [Mass/Vol] 143 mg/dL High 70 - 100 mg/dL [place] Interpretation and review of laboratory results Abnormal [place] Potassium [Moles/Vol] 3.5 mmol/L 3.5 - 5.1 mmol/L [place] Sodium [Moles/Vol] 134 mmol/L [place] 135 - 145 mmol/L [place] Urea nitrogen [Mass/Vol] 10 mg/dL 7 - 20 mg/dL [place] Test Performed by [facility], [address], [place], [place] [address] [place] CBCon 09-13-2019 Erythrocyte distribution width (RBC) [Ratio] 12.9 % 11.5 - 14.5 % [place] Hematocrit (Bld) [Volume fraction] 34.7 % Low 40 - 52 % [place] Hemoglobin (Bld) [Mass/Vol] 12.0 g/dL Low 13 - 18 g/dL [place] Interpretation and review of laboratory results Abnormal [place] MCH (RBC) [Entitic mass] 31.6 pg 26 - 34 pg [place] MCHC (RBC) [Mass/Vol] 34.6 % 32 - 36 % [place] MCV (RBC) [Entitic vol] 91.2 fL 80 - 98 fL [place] Platelet mean volume (Bld) [Entitic vol] 7.1 fL Low 7.4 - 10.4 fL [place] Platelets (Bld) [#/Vol] 149 10*3/uL 140 - 440 10*3/uL [place] RBC (Bld) [#/Vol] 3.80 10*6/uL Low 4.4 - 5.9 10*6/uL [place] WBC (Bld) [#/Vol] 10.4 10*3/uL 3.6 - 10.7 10*3/uL [place] Test Performed by [facility], [address] [place] [id number] [place] [address] EKG 12 Leadon 09-13-2019 [facility] Test Date: 2019-09-12 Pat Name: Shola Martinez Department: 01 Room: 456 Gender: M 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1950 Requested By: MOJGAN IVY Order Number: [id number] Reading MD: Pacheco Arriaga Measurements Intervals Mims Rate: 95 P: 57 DC: 172 QRS: -67 QRSD: 118 T: 29 QT: 356 QTc: 448 Interpretive Statements SINUS RHYTHM CONSIDER LEFT ATRIAL ABNORMALITY INFERIOR INFARCT, OLD Electronically Signed On 09-13-2019 13:07:41 EDT by Pacheco Arriaga [place] Mark, [facility] Incoming Cardiology Results From [facility] - 09/13/2019 1:08 PM EDT [facility] Test Date: 2019-09-12 Pat Name: Shola Martinez Department: 01 Room: 456 Gender: M 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 [place] [address] [employer] POCT Glucoseon 09-13-2019 Glucose [Mass/Vol] 193 mg/dL High 70 - 100 mg/dL [employer] Comment on above: Test performed by gl ucose meter. Results may be 10%-15% lower than serum/plasma values. (CLIA ID [id number]) Interpretation and review of laboratory results Abnormal [place] Test Performed by [facility], [address] [place], [place] [address] [employer] Glucose [Mass/Vol] 134 mg/dL High 70 - 100 mg/dL [employer] Comment on above: Test performed by gl ucose meter. Results may be 10%-15% lower than serum/plasma values. (CLIA ID [id number]) Interpretation and review of laboratory results Abnormal [place] Test Performed by [facility], [address] [place] [address] [employer] Glucose [Mass/Vol] 175 mg/dL High 70 - 100 mg/dL [employer] Comment on above: Test performed by gl ucose meter. Results may be 10%-15% lower than serum/plasma values. (CLIA ID [id number]) Interpretation and review of laboratory results Abnormal [place] Test Performed by [facility], [address], [place], [place] [address] [place] Glucose [Mass/Vol] 190 mg/dL High 70 - 100 mg/dL [place] Comment on above: Test performed by ucose meter. Results may be 10%-15% lower than serum/plasma values. (CLIA ID [id number]) Interpretation and review of laboratory results Abnormal [place] Test Performed by [facility], [address], [place], [place] [address] [place] Brain Natriuretic Peptideon 09-12-2019 Interpretation and review of laboratory results Abnormal [place] Natriuretic peptide B (Bld) [Mass/Vol] 344 pg/mL High 0 - 125 pg/mL [place] CKon 09-12-2019 Total CK 242 U/L High 30 - 170 U/L [place] COVID-19on 09-12-2019 SARS-CoV-2 Not Detected Expected Result: Not Detected _ Real-time, RT-PCR performed on the [email or web address] by the [facility]. Negative results do not preclude SARS-CoV-2 infection and should not be used as the sole basis for treatment or other patient management decisions. This assay was developed by [employer] and distributed under an Emergency Use Authorization (EUA) granted by the FDA for the qualitative detection of SARS-CoV-2 nucleic acid. [place] Test Performed by [facility], [address] [place] [address] Specimen Source Comment:Nasopharyngeal Swab [place] Comprehensive Metabolic Pane vineet 09-12-2019 Albumin [Mass/Vol] 4.4 g/dL 3.5 - 5 g/dL [place] ALP [Catalytic activity/Vol] 77 U/L 38 - 126 U/L [place] ALT [Catalytic activity/Vol] 25 U/L 0 - 49 U/L [place] Comment on above: The ALT test is perf ormed by an updated assay method. Please note that the reference intervals have been changed and are now sex specific. Anion gap [Moles/Vol] 17 mmol/L [place] AST [Catalytic activity/Vol] 32 U/L 15 - 46 U/L [place] Bilirubin Ql (U) 2.5 mg/dL High 0.2 - 1.3 mg/dL [place] Calcium [Mass/Vol] 9.0 mg/dL 8.4 - 10. 4 mg/dL [place] Chloride [Moles/Vol] 96 mmol/L Low 98 - 10 7 mmol/L [place] CO2 [Moles/Vol] 22 mmol/L 22 - 30 mmol/L [place] Creatinine [Mass/Vol] 0.83 mg/dL 0.52 - 1.25 mg/dL [place] EGFR IF NonAfrican [place] 89.1 mL/min >60 [place] Comment on above: KDIGO guidelines pro vide the following GFR categories: Stage GFR(ml/min/1.73 m2) Terms G1 >=90 Normal or high G2 60-89 Mildly decreased* G3a 45-59 Mildly to moderately decreased G3b 30-44 Moderately to severely decreased G4 15-29 Severely decreased G5 <15 Kidney failure *Relative to young adult level. In the absence of evidence of kidney damage, neither GFR category G1 nor G2 fulfill the criteria for CKD. The CKD-EPI equation is validated in individuals 18 years of age and older. Currently the best equation for estimating glomerular filtration rate (GFR) from serum creatinine in children is the Bedside Long equation. It is less accurate in patients with extremes of muscle mass, restriction of dietary protein, ingestion of creatine, extra-renal metabolism of creatinine, or treatment with medications that affect renal tubular creatinine secretion. GFR/1.73 sq M predicted among blacks MDRD (S/P/Bld) [Vol rate/Area] mL/min/{1.73_m2} >60 mL/min [place] Glucose [Mass/Vol] 179 mg/dL High 70 - 100 mg/dL [place] Potassium [Moles/Vol] 4.0 mmol/L 3.5 - 5.1 mmol/L [place] Protein [Mass/Vol] 7.6 g/dL 6.3 - 8.2 g/dL [place] Sodium [Moles/Vol] 135 mmol/L 135 - 145 mmol/L [place] Urea nitrogen [Mass/Vol] 11 mg/dL 7 - 20 mg/dL [place] D-Dimer, Quantitativeon 08-31 D-Dimer, Quant 0.53 mg/L High 0 - 0.5 mg/L [place] Comment on above: [employer] D-Dimer va lues of <0.50 mg/L FEU can be used in combination with a pre-test probability model (e.g. Well's) to exclude pulmonary embolism (PE) disease, as well as an aid in the diagnosis of deep vein thrombosis (DVT). Interpretation and review of laboratory results Abnormal [place] Test Performed by [facility], [address] [place], [place], [place] [address] [place] Hemogram (CBC) w/Auto Diffon 09-12-2019 Absolute Baso # 0.0 10*3/uL 0 - 0.2 10*3/uL [place] Absolute Neut # 11.2 10*3/uL High 1.8 - 7 10*3/uL [place] Basophils/100 WBC (Bld) 0.3 % 0 - 2 % [place], [place] Eosinophils (Bld) [#/Vol] 0.0 10*3/uL 0 - 0.5 10*3/uL [place] Eosinophils/100 WBC (Bld) 0.2 % Low 1 - 6 % [place] Erythrocyte distribution width (RBC) [Ratio] 12.6 % 11.5 - 14.5 % [place] Granulocytes/100 WBC (Bld) 88.3 % High 40 - 80 % [place] Hematocrit (Bld) [Volume fraction] 41.5 % 40 - 52 % [place] Hemoglobin (Bld) [Mass/Vol] 14.6 g/dL 13 - 18 g/dL [place] Interpretation and review of laboratory results Abnormal [place] Lymphocytes (Bld) [#/Vol] 0.8 10*3/uL Low 1 - 4.3 10*3/uL [place] Lymphocytes/100 WBC (Bld) 6.5 % Low 20 - 40 % [place] MCH (RBC) [Entitic mass] 31.5 pg 26 - 34 pg [place] MCHC (RBC) [Mass/Vol] 35.1 % 32 - 36 % [place] MCV (RBC) [Entitic vol] 89.7 fL 80 - 98 fL [place], [place] Monocytes (Bld) [#/Vol] 0.6 10*3/uL 0 - 0.8 10*3/uL [place] Monocytes/100 WBC (Bld) 4.7 % 2 - 10 % [place] Platelet mean volume (Bld) [Entitic vol] 7.5 fL 7.4 - 10.4 fL [place] Platelets (Bld) [#/Vol] 192 10*3/uL 140 - 440 10*3/uL [place] RBC (Bld) [#/Vol] 4.63 10*6/uL 4.4 - 5.9 10*6/uL [place] WBC (Bld) [#/Vol] 12.7 10*3/uL High 3.6 - 10.7 10*3/uL [place] Test Performed by [facility], [address] Otheron 09-12-2019 Test Performed by [facility], [address] Interpretation and review of laboratory results Abnormal [place] Test Performed by [facility], [address] POCT Glucoseon 09-12-2019 Glucose [Mass/Vol] 166 mg/dL High 70 - 100 mg/dL [place] Comment on above: Test performed by ucose meter. Results may be 10%-15% lower than serum/plasma values. (CLIA ID [id number]) Interpretation and review of laboratory results Abnormal [place] Test Performed by [facility], [address] Troponin x1on 09-12-2019 Troponin I.cardiac [Mass/Vol] ng/mL 0 - 0.034 ng/mL [place] Comment on above: . Urinalysison 09-12-2019 Appearance (U) Clear Clear NA [place] Comment on above: . Bacteria, UA Few Abnormal Negative /[HPF] [place] Comment on above: . Bilirubin Urine Negative Negative mg/dL [place] Comment on above: . Color (U) Yellow Lt. Yellow NA [place] Comment on above: . Glucose, Ur Normal Normal (<70) mg/dL [place] Comment on above: . Interpretation and review of laboratory results Abnormal [place] Ketones Ql (U) 10 mg/dL Abnormal Negative [place] Comment on above: . LEUKOCYTES, UA 250 Abnormal Negative [place]/uL [place] Comment on above: . Mucous Threads Few Negative /[LPF] [place] Comment on above: . Nitrite, Urine Negative Negative NA [place] Comment on above: . Occult Blood,Urine 0.06 mg/dL Abnormal Negative [place] Comment on above: . pH (U) 5.5 [pH] [place] Comment on above: . Protein (U) [Mass/Vol] 20 mg/dL Abnormal Negative [place] Comment on above: . RBC (U) [#/Vol] 3-5 Abnormal 0 - 2 /[HPF] [place], [place] Comment on above: . Specific [place], Urine 1.026 M [place], [place] Comment on above: . Squam Epithel, UA 0-2 3 - 5 /[HPF] [place] Comment on above: . Urobilinogen, Urine Normal Normal (0-1) mg/dL [place] Comment on above: . WBC, UA 6-10 Abnormal 0 - 5 /[HPF] [place], [place] Comment on above: . Test Performed by [facility], [address] [place], [place], [place] [address] [place] Cervical Spine WO Contras ton 09-02-2019 Patient Name: SHOLA URBINA ND ---CT--- Exam Date/Time 09/02/2019 20:57:[address] Spine Cervical w/o Contrast Ordering Physician TYLER ANDERSON Accession Number [id number] CPT4 Codes 30538 () Reason For Exam fall Report CT CERVICAL SPINE WITHOUT CONTRAST CLINICAL INDICATION: Neck pain after trauma Serial axial CT images of the cervical spine were obtained without intravenous contrast. Coronal and sagittal reformatted images were also made available for interpretation. COMPARISON: None FINDINGS: No fracture or dislocation of the cervical spine is identified. There is no prevertebral soft tissue swelling. There is moderate, diffuse loss of intervertebral disc space height and degenerative endplate spurring throughout the cervical spine. Facet hypertrophic changes are also noted diffusely. No moderate or severe bony central canal stenosis is seen. IMPRESSION: No fracture or dislocation of the cervical spine. Moderate diffuse degenerative changes of the cervical spine. Report Dictated on --- Final --- Dictating Physician: MD MULLIGAN JONATHAN R Signed Date and Time: 09/02/2019 9:10 pm Signed by: MD MULLIGAN JONATHAN R Transcribed Date and Time: 09/02/2019 9:11 [facility] Incoming Radiology Results From [facility] - 09/02/2019 9:11 PM EDT Patient Name: SHOLA MARTINEZ ---CT--- Exam Date/Time 09/02/2019 20:57:[address] Spine Cervical w/o Contrast Ordering Physician TYLER ANDERSON Accession Number [id number] CPT4 Codes 75553 () Reason For Exam fall Report CT CERVICAL SPINE WITHOUT CONTRAST CLINICAL INDICATION: Neck pain after trauma Serial axial CT images of the cervical spine were obtained without intravenous contrast. Coronal and sagittal reformatted images were also made available for interpretation. COMPARISON: None FINDINGS: No fracture or dislocation of the cervical spine is identified. There is no prevertebral soft tissue swelling. There is moderate, diffuse loss of intervertebral disc space height and degenerative endplate spurring throughout the cervical spine. Facet hypertrophic changes are also noted diffusely. No moderate or severe bony central canal stenosis is seen. IMPRESSION: No fracture or dislocation of the cervical spine. Moderate diffuse degenerative changes of the cervical spine. Report Dictated on --- Final --- Dictating Physician: MD MULLIGAN JONATHAN R Signed Date and Time: 09/02/2019 9:10 pm Signed by: MD MULLIGAN JONATHAN R Transcribed Date and Time: 09/02/2019 9:11 [place] Facial Bones WO Contrasto n 09-02-2019 Patient Name: SHOLA URBINA ND ---CT--- Exam Date/Time 09/02/2019 20:35:[address] Maxillofacial w/o Contrast Ordering Physician TYLRE ANDERSON Accession Number [id number] CPT4 Codes 22415 () Reason For Exam fall Report MAXILLOFACIAL CT SCAN WITHOUT CONTRAST CLINICAL INDICATION: fall, injury TECHNIQUE: Maxillofacial CT scan without contrast. Multiplanar reformations. COMPARISON: None FINDINGS: Mucosal thickening in the maxillary sinuses. Comminuted displaced bilateral nasal bone fractures. Fracture at the base of the nasal septum. Nasal septal deviation to the left. Probable fracture involving the caudal posterior aspect of the nasal septum as well. No other facial bone fractures identified. A few dental caries noted. IMPRESSION: 1. Nasal bone and nasal septal fractures. 2. Dental disease. Report Dictated on --- Final --- Dictating Physician: MD GRAJEDA JOHN R Signed Date and Time: 09/02/2019 9:15 pm Signed by: MD GRAJEDA JOHN R Transcribed Date and Time: 09/02/2019 9:16 [place] [facility] Incoming Radiology Results From [facility] - 09/02/2019 9:16 PM EDT Patient Name: SHOLA MARTINEZ ---CT--- Exam Date/Time 09/02/2019 20:35:[address] Maxillofacial w/o Contrast Ordering Physician TYLER ANDERSON Accession Number [id number] CPT4 Codes 32661 () Reason For Exam fall Report MAXILLOFACIAL CT SCAN WITHOUT CONTRAST CLINICAL INDICATION: fall, injury TECHNIQUE: Maxillofacial CT scan without contrast. Multiplanar reformations. COMPARISON: None FINDINGS: Mucosal thickening in the maxillary sinuses. Comminuted displaced bilateral nasal bone fractures. Fracture at the base of the nasal septum. Nasal septal deviation to the left. Probable fracture involving the caudal posterior aspect of the nasal septum as well. No other facial bone fractures identified. A few dental caries noted. IMPRESSION: 1. Nasal bone and nasal septal fractures. 2. Dental disease. Report Dictated on --- Final --- Dictating Physician: MD GRAJEDA JOHN R Signed Date and Time: 09/02/2019 9:15 pm Signed by: MD GRAJEDA JOHN R Transcribed Date and Time: 09/02/2019 9:16 [place] CT Head WO Contraston 2019 Patient Name: SHOLA URBINA ND ---CT--- Exam Date/Time 09/02/2019 20:35:[address] Head or Brain w/o Contrast Ordering Physician TYLER ANDERSON Accession Number [id number] CPT4 Codes 33871 () Reason For Exam fall Report CT HEAD WITHOUT CONTRAST CLINICAL INDICATION: Head injury after fall Axial CT images of the brain were obtained without intravenous contrast. Coronal and sagittal reformatted images were also made available for interpretation. COMPARISON: None. FINDINGS: There is mild diffuse cortical volume loss. Nonspecific periventricular white matter hypodensities likely reflect areas of small vessel ischemic change in a patient of this age. No high attenuation material is seen to suggest hemorrhage. There is no definite evidence for acute cortical infarction. No midline shift or mass effect is noted. There is a mildly displaced, comminuted fracture of the nasal bone, not fully included in the [id number]. No calvarial fracture seen. There is a small polyp or retention cyst within the anterior aspect of the right maxillary sinus. There is mild mucosal thickening of the floor of the left maxillary sinus. IMPRESSION: No evidence of intracranial hemorrhage or definite acute cortical infarction. There is mild volume loss. 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 Nasal bone fracture, not fully included in the [id number]. A dedicated CT of the facial bones was also performed, reported separately. Report Dictated on --- Final --- Dictating Physician: MD MULLIGAN JONATHAN R Signed Date and Time: 09/02/2019 9:06 pm Signed by: MD MULLIGAN JONATHAN R Transcribed Date and Time: 09/02/2019 9:07 [facility] [place] [place] Incoming Radiology Results From [facility] - 09/02/2019 9:07 PM EDT Patient Name: SHOLA MARTINEZ ---CT--- Exam Date/Time 09/02/2019 20:35:[address] Head or Brain w/o Contrast Ordering Physician TYLER ANDERSON Accession Number [id number] CPT4 Codes 75522 () Reason For Exam fall Report CT HEAD WITHOUT CONTRAST CLINICAL INDICATION: Head injury after fall Axial CT images of the brain were obtained without intravenous contrast. Coronal and sagittal reformatted images were also made available for interpretation. COMPARISON: None. FINDINGS: There is mild diffuse cortical volume loss. Nonspecific periventricular white matter hypodensities likely reflect areas of small vessel ischemic change in a patient of this age. No high attenuation material is seen to suggest hemorrhage. There is no definite evidence for acute cortical infarction. No midline shift or mass effect is noted. There is a mildly displaced, comminuted fracture of the nasal bone, not fully included in the [id number]. No calvarial fracture seen. There is a small polyp or retention cyst within the anterior aspect of the right maxillary sinus. There is mild mucosal thickening of the floor of the left maxillary sinus. IMPRESSION: No evidence of intracranial hemorrhage or definite acute cortical infarction. There is mild volume loss. 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 Nasal bone fracture, not fully included in the [id number]. A dedicated CT of the facial bones was also performed, reported separately. Report Dictated on --- Final --- Dictating Physician: MD MULLIGAN JONATHAN R Signed Date and Time: 09/02/2019 9:06 pm Signed by: MD MULLIGAN JONATHAN R Transcribed Date and Time: 09/02/2019 9:07 [place], [place] CBCon 12-04-2018 Erythrocyte distribution width (RBC) [Ratio] 12.4 % 11.5 - 14.5 % [place] Hematocrit (Bld) [Volume fraction] 37.2 % Low 40 - 52 % [place] Hemoglobin (Bld) [Mass/Vol] 13.3 g/dL 13 - 18 g/dL [place] Interpretation and review of laboratory results Abnormal [place] MCH (RBC) [Entitic mass] 31.1 pg 26 - 34 pg [place] MCHC (RBC) [Mass/Vol] 35.8 % 32 - 36 % [place] MCV (RBC) [Entitic vol] 86.9 fL 80 - 98 fL [place] Platelet mean volume (Bld) [Entitic vol] 6.4 fL Low 7.4 - 10.4 fL [place] Platelets (Bld) [#/Vol] 135 10*3/uL [place] 140 - 440 10*3/uL [place] RBC (Bld) [#/Vol] 4.28 10*6/uL Low 4.4 - 5.9 10*6/uL [place] WBC (Bld) [#/Vol] 5.2 10*3/uL 3.6 - 10.7 10*3/uL [place] Test Performed by [facility], [address] [place], [place] [address] [place] [address] Comprehensive Metabolic Pane vineet 12-04-2018 Albumin [Mass/Vol] 3.6 g/dL 3.5 - 5 g/dL [place] ALP [Catalytic activity/Vol] 65 U/L 38 - 126 U/L [place] ALT [Catalytic activity/Vol] 37 U/L 13 - 69 U/L [place] Anion gap [Moles/Vol] 7 mmol/L [place] AST [Catalytic activity/Vol] 44 U/L 15 - 46 U/L [place] Bilirubin Ql (U) 1.8 mg/dL High 0.2 - 1.3 mg/dL [place] Calcium [Mass/Vol] 8.6 mg/dL 8.4 - 10. 4 mg/dL [place] Chloride [Moles/Vol] 97 mmol/L Low 98 - 10 7 mmol/L [place] CO2 [Moles/Vol] 28 mmol/L 22 - 30 mmol/L [place] Creatinine [Mass/Vol] 0.72 mg/dL 0.52 - 1.25 mg/dL [place] EGFR IF NonAfrican [place]er >60.0 >60 mL/min [place] Comment on above: Source- MDRD equatio n with creatinine calibration to IDMS(NKDEP) eGFR not recommended for drug dose adjustment GFR/1.73 sq M predicted among blacks MDRD (S/P/Bld) [Vol rate/Area] mL/min/{1.73_m2} >60 mL/min [place] Glucose [Mass/Vol] 155 mg/dL High 70 - 100 mg/dL [place] Interpretation and review of laboratory results Abnormal [place] Potassium [Moles/Vol] 4.1 mmol/L 3.5 - 5.1 mmol/L [place] Protein [Mass/Vol] 6.7 g/dL 6.3 - 8.2 g/dL [place] Sodium [Moles/Vol] 131 mmol/L Low 135 - 145 mmol/L [place] Urea nitrogen [Mass/Vol] 8 mg/dL 7 - 20 mg/dL [place] Test Performed by [facility], [address], [place], [place] [address] [place], [place] POCT Glucoseon 12-04-2018 Glucose [Mass/Vol] 201 mg/dL High 70 - 100 mg/dL [place] Comment on above: Test performed by gl ucose meter. Results may be 10%-15% lower than serum/plasma values. (CLIA ID [id number]) Interpretation and review of laboratory results Abnormal [place] Test Performed by [facility], [address] [place], [place], [place] [address] [place] Glucose [Mass/Vol] 167 mg/dL High 70 - 100 mg/dL [place] Comment on above: Test performed by ucose meter. Results may be 10%-15% lower than serum/plasma values. (CLIA ID [id number]) Interpretation and review of laboratory results Abnormal [place] Test Performed by [facility], [address], [place], [place] [address] [place] Basic Metabolic Panelon Anion gap [Moles/Vol] 7 mmol/L [place] Calcium [Mass/Vol] 8.1 mg/dL Low 8.4 - 10. 4 mg/dL [place] Chloride [Moles/Vol] 97 mmol/L Low 98 - 10 7 mmol/L [place] CO2 [Moles/Vol] 26 mmol/L 22 - 30 mmol/L [place] Creatinine [Mass/Vol] 0.75 mg/dL 0.52 - 1.25 mg/dL [place] EGFR IF NonAfrican [place] >60.0 >60 mL/min [place] Comment on above: Source- MDRD equatio n with creatinine calibration to IDMS(NKDEP) eGFR not recommended for drug dose adjustment GFR/1.73 sq M predicted among blacks MDRD (S/P/Bld) [Vol rate/Area] mL/min/{1.73_m2} >60 mL/min [place] Glucose [Mass/Vol] 156 mg/dL High 70 - 100 mg/dL [place] Potassium [Moles/Vol] 4.0 mmol/L 3.5 - 5.1 mmol/L [place] Sodium [Moles/Vol] 130 mmol/L Low 135 - 145 mmol/L [place] Urea nitrogen [Mass/Vol] 9 mg/dL 7 - 20 mg/dL [place] CBCon 12-03-2018 Erythrocyte distribution width (RBC) [Ratio] 12.4 % 11.5 - 14.5 % [place] Hematocrit (Bld) [Volume fraction] 36.2 % Low 40 - 52 % [place] Hemoglobin (Bld) [Mass/Vol] 12.9 g/dL Low 13 - 18 g/dL [place] MCH (RBC) [Entitic mass] 31.4 pg 26 - 34 pg [place] MCHC (RBC) [Mass/Vol] 35.6 % 32 - 36 % [place] MCV (RBC) [Entitic vol] 88.3 fL 80 - 98 fL [place] Platelet mean volume (Bld) [Entitic vol] 6.9 fL Low 7.4 - 10.4 fL [place] Platelets (Bld) [#/Vol] 112 10*3/uL Low 140 - 440 10*3/uL [place] RBC (Bld) [#/Vol] 4.10 10*6/uL Low 4.4 - 5.9 10*6/uL [place] WBC (Bld) [#/Vol] 5.7 10*3/uL 3.6 - 10.7 10*3/uL [place] Gastrointestinal Panel by MARIE Cazares 12-03-2018 Gastrointestinal PCR Panel NEGATIVE: No targets were detected by the [employer] Gastrointestinal PCR Panel. The [employer] Gastrointestinal PCR Panel detects the following targets: Campylobacter Plesiomonas shigelloides Salmonella Vibrio species Vibrio cholerae Yersinia enterocolitica Shiga-like toxin producing E. coli (STEC), including E. coli O157 Enterotoxigenic E. coli (ETEC) lt/st Shigella/Enteroinvasive E. coli (EIEC) Cryptosporidium Cyclospora cayetanensis Entamoeba histolytica Giardia lamblia Adenovirus F 40/41 Astrovirus Norovirus GI/GII Rotavirus A Sapovirus Clostridioides (Clostridium) difficile toxin is no longer being reported on the GI panel. If patient symptoms are consistent with C. difficile infection, the assay can be ordered separately with [facility] ([id number]). [place] Test Performed by [facility], [address] [place] [address] Specimen Source Comment:[facility]tool [facility] [place], [place] Otheron 12-03-2018 Interpretation and review of laboratory results Abnormal [facility] [place] Test Performed by [facility], [address] [place], [place] [address] [facility] [place] POCT Glucoseon 12-03-2018 Glucose [Mass/Vol] 225 mg/dL High 70 - 100 mg/dL [facility] [place] Comment on above: Test performed by gl ucose meter. Results may be 10%-15% lower than serum/plasma values. (CLIA ID [id number]) Interpretation and review of laboratory results Abnormal [facility] [place] Test Performed by [facility], [address] [place], [place] [address] [facility] [place] Glucose [Mass/Vol] 189 mg/dL High 70 - 100 mg/dL [facility] Comment on above: Test performed by gl ucose meter. Results may be 10%-15% lower than serum/plasma values. (CLIA ID [id number]) Interpretation and review of laboratory results Abnormal [facility] Test Performed by [facility], [address] [place], [place] [address] [facility] [place] Glucose [Mass/Vol] 198 mg/dL High 70 - 100 mg/dL [facility] Comment on above: Test performed by gl ucose meter. Results may be 10%-15% lower than serum/plasma values. (CLIA ID [id number]) Interpretation and review of laboratory results Abnormal [facility] [place] Test Performed by [facility], [address] [place], [place] [address] [facility] [place] Glucose [Mass/Vol] 162 mg/dL High 70 - 100 mg/dL [facility] Comment on above: Test performed by gl ucose meter. Results may be 10%-15% lower than serum/plasma values. (CLIA ID [id number]) Interpretation and review of laboratory results Abnormal [facility] Test Performed by [facility], [address] [place] [address] [facility] Basic Metabolic Panelon Anion gap [Moles/Vol] 7 mmol/L [facility] [place] Calcium [Mass/Vol] 7.9 mg/dL Low 8.4 - 10. 4 mg/dL [place] Chloride [Moles/Vol] 96 mmol/L Low 98 - 10 7 mmol/L [place] CO2 [Moles/Vol] 27 mmol/L 22 - 30 mmol/L [place] Creatinine [Mass/Vol] 0.76 mg/dL 0.52 - 1.25 mg/dL [place] EGFR IF NonAfrican [place] >60.0 >60 mL/min [place] Comment on above: Source- MDRD equatio n with creatinine calibration to IDMS(NKDEP) eGFR not recommended for drug dose adjustment GFR/1.73 sq M predicted among blacks MDRD (S/P/Bld) [Vol rate/Area] mL/min/{1.73_m2} >60 mL/min [place] Potassium [Moles/Vol] 3.8 mmol/L 3.5 - 5.1 mmol/L [place] Sodium [Moles/Vol] 129 mmol/L Low 135 - 145 mmol/L [place] Urea nitrogen [Mass/Vol] 9 mg/dL 7 - 20 mg/dL [place] EKG 12 Lead - Chest Painon 0 12-02-2018 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1950 Requested By: ALEJANDRO Order Number: [id number] Reading MD: Omkar Atwood Measurements Intervals Mims Rate: 85 P: 65 DC: 180 QRS: 6 QRSD: 118 T: 8 QT: 364 QTc: 433 Interpretive Statements SINUS RHYTHM NONSPECIFIC INTRAVENTRICULAR CONDUCTION DELAY BASELINE WANDER IN LEAD(S) V2 Compared to ECG 06/27/2018 04:20:14 No significant changes Electronically Signed On 12-02-2018 10:07:44 EDT by Omkar Atwood [place], [place], [facility] Incoming Cardiology Results From [facility] - 12/02/2018 10:08 AM EDT [place] Test Date: 2018-11-30 Pat Name: Shola Martinez Department: [facility] Room: 454 Gender: M 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 Results may be 10%-15% lower than serum/plasma values. (CLIA ID [id number]) Otheron 12-02-2018 Interpretation and review of laboratory results Abnormal [employer] Test Performed by [facility], [address] [place] [address] [employer] POCT Glucoseon 12-02-2018 Glucose [Mass/Vol] 161 mg/dL High 70 - 100 mg/dL [employer] Comment on above: Test performed by [employer] ucose meter. Results may be 10%-15% lower than serum/plasma values. (CLIA ID [id number]) Interpretation and review of laboratory results Abnormal [employer] Test Performed by [facility], [address], [place], [place] [address] [employer] Glucose [Mass/Vol] 169 mg/dL High 70 - 100 mg/dL [employer] Comment on above: Test performed by [employer] ucose meter. Results may be 10%-15% lower than serum/plasma values. (CLIA ID [id number]) Interpretation and review of laboratory results Abnormal [employer] Test Performed by [facility], [address], [place], [place] [address] [employer] Glucose [Mass/Vol] 156 mg/dL High 70 - 100 mg/dL [place] Comment on above: Test performed by ucose meter. Results may be 10%-15% lower than serum/plasma values. (CLIA ID [id number]) Interpretation and review of laboratory results Abnormal [place] Test Performed by [facility], [address], [place], [place] [address] [place] Basic Metabolic Panel w/ Ref steve to MGon 12-01-2018 Anion gap [Moles/Vol] 7 mmol/L [place] Calcium [Mass/Vol] 8.1 mg/dL Low 8.4 - 10. 4 mg/dL [place] Chloride [Moles/Vol] 97 mmol/L Low 98 - 10 7 mmol/L [place] CO2 [Moles/Vol] 24 mmol/L 22 - 30 mmol/L [place] Creatinine [Mass/Vol] 0.82 mg/dL 0.52 - 1.25 mg/dL [place] EGFR IF NonAfrican [place] >60.0 >60 mL/min [place] Comment on above: Source- MDRD equatio n with creatinine calibration to IDMS(NKDEP) eGFR not recommended for drug dose adjustment GFR/1.73 sq M predicted among blacks MDRD (S/P/Bld) [Vol rate/Area] mL/min/{1.73_m2} >60 mL/min [place] Glucose [Mass/Vol] 189 mg/dL High 70 - 100 mg/dL [place] Interpretation and review of laboratory results Abnormal [place] Potassium [Moles/Vol] 4.1 mmol/L 3.5 - 5.1 mmol/L [place] Sodium [Moles/Vol] 128 mmol/L Low 135 - 145 mmol/L [place] Urea nitrogen [Mass/Vol] 9 mg/dL 7 - 20 mg/dL [place] Test Performed by [facility], [address], [place], [place] [address] [place] CBC auto differentialon 09-0 1-2019 Absolute Baso # 0.0 10*3/uL 0 - 0.2 10*3/uL [place] Absolute Neut # 5.2 10*3/uL 1.8 - 7 10*3/uL [place] Basophils/100 WBC (Bld) 0.2 % 0 - 2 % [place] Eosinophils (Bld) [#/Vol] 0.0 10*3/uL 0 - 0.5 10*3/uL [place] Eosinophils/100 WBC (Bld) 0.1 % Low 1 - 6 % [place] Erythrocyte distribution width (RBC) [Ratio] 12.5 % 11.5 - 14.5 % [place] Granulocytes/100 WBC (Bld) 80.6 % High 40 - 80 % [place] Hematocrit (Bld) [Volume fraction] 37.2 % Low 40 - 52 % [place] Hemoglobin (Bld) [Mass/Vol] 12.7 g/dL Low 13 - 18 g/dL [place] Interpretation and review of laboratory results Abnormal [place] Lymphocytes (Bld) [#/Vol] 0.7 10*3/uL Low 1 - 4.3 10*3/uL [place] Lymphocytes/100 WBC (Bld) 11.0 % Low 20 - 40 % [place] MCH (RBC) [Entitic mass] 31.1 pg 26 - 34 pg [place] MCHC (RBC) [Mass/Vol] 34.3 % 32 - 36 % [place] MCV (RBC) [Entitic vol] 90.8 fL 80 - 98 fL [place] Monocytes (Bld) [#/Vol] 0.5 10*3/uL 0 - 0.8 10*3/uL [place] Monocytes/100 WBC (Bld) 8.1 % 2 - 10 % [place] Platelet mean volume (Bld) [Entitic vol] 7.5 fL 7.4 - 10.4 fL [place] Platelets (Bld) [#/Vol] 96 10*3/uL Low 140 - 440 10*3/uL [place] RBC (Bld) [#/Vol] 4.10 10*6/uL Low 4.4 - 5.9 10*6/uL [place] WBC (Bld) [#/Vol] 6.5 10*3/uL 3.6 - 10.7 10*3/uL [place] Test Performed by [facility], [address] [place], [place] [address] [place] Hemoglobin A1Con 12-01-2018 eAG 174 mg/dL [place] HbA1c (Bld) [Mass fraction] 7.7 % High 4 - 5.7 % [place] Comment on above: --HgbA1C levels may not be accurate in patients who have renal disease, received recent blood transfusions, are anemic, or who have dyshemoglobinemia. Interpretation and review of laboratory results Abnormal [place] Test Performed by [facility], [address] [place], [place] [address] [place] LEGIONELLA ANTIGEN, URINEon 12-01-2018 LEGIONELLA ANTIGEN Legionella antigen N OT DETECTED. [place] Lactic Acid, Plasmaon 2018 Lactate [Moles/Vol] 1.6 mmol/L 0.7 - 2 mmol/L [place] Test Performed by [facility], [address] [place], [place] [address] [place] Otheron 12-01-2018 Test Performed by [facility], [address] [place] [id number] Specimen Source Comment:Urine, clean catch [place] POCT Glucoseon 12-01-2018 Glucose [Mass/Vol] 160 mg/dL High 70 - 100 mg/dL [place] Comment on above: Test performed by ucose meter. Results may be 10%-15% lower than serum/plasma values. (CLIA ID [id number]) Interpretation and review of laboratory results Abnormal [place] Test Performed by [facility], [address] [place] [address] [place] Glucose [Mass/Vol] 231 mg/dL High 70 - 100 mg/dL [place] Comment on above: Test performed by gl ucose meter. Results may be 10%-15% lower than serum/plasma values. (CLIA ID [id number]) Interpretation and review of laboratory results Abnormal [place] Test Performed by [facility], [address], [place], [place] [address] [place] Glucose [Mass/Vol] 220 mg/dL High 70 - 100 mg/dL [place] Comment on above: Test performed by gl ucose meter. Results may be 10%-15% lower than serum/plasma values. (CLIA ID [id number]) Interpretation and review of laboratory results Abnormal [place] Test Performed by [facility], [address], [place], [place] [address] [place] PROCALCITONINon 12-01-2018 Procalcitonin <0.10 <0.10 ng/mL [place] Sodium [Moles/Vol] See Below [place] Comment on above: PCT <0.50 = Low risk of severe sepsis and/or septic shock. PCT >2.00 = High risk of severe sepsis and/or septic shock. Test Performed by [facility], [facility] [place] [address] [place] Respiratory Virus PCR Panelo n 12-01-2018 Respiratory Panel PCR NEGATIVE: No targe ts were detected by the [employer] Upper Respiratory Pathogens PCR Panel. The [employer] Upper Respiratory Pathogens PCR Panel detects the following targets: Adenovirus Coronavirus 229E Coronavirus HKU1 Coronavirus NL63 Coronavirus OC43 Human Metapneumovirus Human Rhinovirus/Enterovirus Influenza A Influenza B Parainfluenza Virus 1 Parainfluenza Virus 2 Parainfluenza Virus 3 Parainfluenza Virus 4 Respiratory Syncytial Virus Bordetella pertussis Bordetella parapertussis Chlamydia pneumoniae Mycoplasma pneumoniae [place] Test Performed by [facility], [address] [place] [address] Specimen Source Comment:Nasopharyngeal [place] SODIUMon 12-01-2018 Interpretation and review of laboratory results Abnormal [place] Sodium [Moles/Vol] 128 mmol/L Low 135 - 145 mmol/L [place] Test Performed by [facility], [address] [place], [place] [address] [place] STREP PNEUMONIAE ANTIGENon 0 12-01-2018 STREP PNEUMONIAE ANTIGEN, URINE Strep pneumo antigen NOT DETECTED. [place] Add On Lab Teston 11-30-2018 Sodium [Moles/Vol] Rejected [place] Sodium [Moles/Vol] Accepted [place] Comment on above: Specimen available & acceptable for analysis. Test Performed by [facility], [address], [place], [place] [address] added to [id number] [place] Basic Metabolic Panelon 11-02 Anion gap [Moles/Vol] 9 mmol/L [place] Calcium [Mass/Vol] 8.9 mg/dL 8.4 - 10. 4 mg/dL [place] Chloride [Moles/Vol] 100 mmol/L 98 - 10 7 mmol/L [place] CO2 [Moles/Vol] 24 mmol/L 22 - 30 mmol/L [place] Creatinine [Mass/Vol] 0.89 mg/dL 0.52 - 1.25 mg/dL [place] EGFR IF NonAfrican [place]er >60.0 >60 mL/min [place] Comment on above: Source- MDRD equatio n with creatinine calibration to IDMS(NKDEP) eGFR not recommended for drug dose adjustment GFR/1.73 sq M predicted among blacks MDRD (S/P/Bld) [Vol rate/Area] mL/min/{1.73_m2} >60 mL/min [place] Glucose [Mass/Vol] 176 mg/dL High 70 - 100 mg/dL [place] Potassium [Moles/Vol] 4.1 mmol/L 3.5 - 5.1 mmol/L [place] Sodium [Moles/Vol] 133 mmol/L Low 135 - 145 mmol/L [place] Urea nitrogen [Mass/Vol] 8 mg/dL 7 - 20 mg/dL [place] Brain Natriuretic Peptideon 11-30-2018 Interpretation and review of laboratory results Abnormal [place] Natriuretic peptide B (Bld) [Mass/Vol] 178 pg/mL High 0 - 125 pg/mL [place] Hemogram (CBC) w/Auto Diffon 11-30-2018 Absolute Baso # 0.0 10*3/uL 0 - 0.2 10*3/uL [place] Absolute Neut # 5.5 10*3/uL 1.8 - 7 10*3/uL [place] Basophils/100 WBC (Bld) 0.3 % 0 - 2 % [place] Eosinophils (Bld) [#/Vol] 0.0 10*3/uL 0 - 0.5 10*3/uL [place] Eosinophils/100 WBC (Bld) 0.5 % Low 1 - 6 % [place] Erythrocyte distribution width (RBC) [Ratio] 12.4 % 11.5 - 14.5 % [place] Granulocytes/100 WBC (Bld) 80.0 % 40 - 80 % [place] Hematocrit (Bld) [Volume fraction] 42.0 % 40 - 52 % [place] Hemoglobin (Bld) [Mass/Vol] 14.5 g/dL 13 - 18 g/dL [place] Interpretation and review of laboratory results Abnormal [place] Lymphocytes (Bld) [#/Vol] 0.8 10*3/uL Low 1 - 4.3 10*3/uL [place] Lymphocytes/100 WBC (Bld) 12.4 % Low 20 - 40 % [place] MCH (RBC) [Entitic mass] 30.5 pg 26 - 34 pg [place] MCHC (RBC) [Mass/Vol] 34.5 % 32 - 36 % [place] MCV (RBC) [Entitic vol] 88.6 fL 80 - 98 fL [place] Monocytes (Bld) [#/Vol] 0.5 10*3/uL 0 - 0.8 10*3/uL [place] Monocytes/100 WBC (Bld) 6.8 % 2 - 10 % [place] Platelet mean volume (Bld) [Entitic vol] 7.5 fL 7.4 - 10.4 fL [place] Platelets (Bld) [#/Vol] 103 10*3/uL [place] - 440 10*3/uL [place] RBC (Bld) [#/Vol] 4.74 10*6/uL 4.4 - 5.9 10*6/uL [place] WBC (Bld) [#/Vol] 6.8 10*3/uL 3.6 - 10.7 10*3/uL [place] Test Performed by [facility], [address] [place], [place] [id number] [place] [address] Hepatic Function Panelon Albumin [Mass/Vol] 3.9 g/dL 3.5 - 5 g/dL [place] ALP [Catalytic activity/Vol] 67 U/L 38 - 126 U/L [place] ALT [Catalytic activity/Vol] 43 U/L 13 - 69 U/L [place] AST [Catalytic activity/Vol] 42 U/L 15 - 46 U/L [place] Bilirubin Ql (U) 2.3 mg/dL High 0.2 - 1.3 mg/dL [place] Bilirubin.direct [Mass/Vol] 0.0 mg/dL 0 - 0.3 mg/dL [place] Protein [Mass/Vol] 6.8 g/dL 6.3 - 8.2 g/dL [place] Lactic Acid, Plasmaon 2018 Lactate [Moles/Vol] 1.9 mmol/L 0.7 - 2 mmol/L [place] Test Performed by [facility], [address] [place], [place] [address] [place] Interpretation and review of laboratory results Abnormal [place] Lactate [Moles/Vol] 2.6 mmol/L Critically high 0.7 - 2 mmol/L [place] Interpretation and review of laboratory results Abnormal [place] Lactate [Moles/Vol] 2.9 mmol/L Critically high 0.7 - 2 mmol/L [place] Test Performed by [facility], [address], [address] Lipaseon 11-30-2018 Lipase [Catalytic activity/Vol] 41 U/L 23 - 300 U/L [place] Test Performed by [facility], [address], [address] Otheron 11-30-2018 Test Performed by [facility], [address], [address] Test Performed by [facility], [address], [address] Interpretation and review of laboratory results Abnormal [place] Test Performed by [facility], [address] [place], [address] Troponin x1on 11-30-2018 Troponin I.cardiac [Mass/Vol] ng/mL 0 - 0.034 ng/mL [place] Comment on above: < 0.034 = negative 0.034 0.120 = indeterminate > 0.120 = positive Urinalysison 11-30-2018 Appearance (U) Clear [place] Comment on above: Reference Range: Andrea ar Bilirubin Urine Negative mg/dL [place] Comment on above: Reference Range: Neg ative Color (U) Yellow [place] Comment on above: Reference Range: Lt. Yellow Glucose, Ur 50 mg/dL [place] Comment on above: Reference Range: Nor mal (<70) Ketones Ql (U) Negative mg/dL [place] Comment on above: Reference Range: Neg ative LEUKOCYTES, UA Negative [place]/uL [place] Comment on above: Reference Range: Neg ative Mucous Threads Few /[LPF] [place] Comment on above: Reference Range: Neg ative Nitrite, Urine Negative [place] Comment on above: Reference Range: Neg ative Occult Blood,Urine 0.03 mg/dL [place] Comment on above: Reference Range: Neg ative pH (U) 5.5 [pH] [place] Protein (U) [Mass/Vol] Negative mg/dL [place] Comment on above: Reference Range: Neg ative RBC (U) [#/Vol] 0-2 /[HPF] [place] Comment on above: Reference Range: 0-2 Specific [place], Urine 1.021 M [place] Squam Epithel, UA 0-2 /[HPF] [place] Comment on above: Reference Range: 3-5 Urobilinogen, Urine 2 mg/dL [place] Comment on above: Reference Range: Nor mal (0-1) WBC, UA 0-2 /[HPF] [place] Comment on above: Reference Range: 0-5 Test Performed by [facility], [address] [place], [place] [address] [place] [address] XR Acute Abd Series Chest 1 VWon 11-30-2018 Patient Name: SHOLA URBINA ND ---Diagnostic Radiology--- Exam Date/Time 11/30/2018 19:02:17 EDT Exam CR Abdomen Series w/ Chest 1 View Ordering Physician DO HARDIN GEORGE E Accession Number [id number] CPT4 Codes 79274 () Reason For Exam abdominal pain Report Abdomen series CLINICAL INDICATION: Abdominal pain COMPARISON: Chest 11/30/2018 11:06 AM AP view of the chest and supine and upright views of the abdomen were obtained. Cardiac silhouette is not enlarged. Patchy infiltrate is present at the left lung base. Right lung is clear. No pleural effusions are noted. Gas is noted within colon and scattered within nondilated small bowel loops. No free intraperitoneal air is noted. Venous calcifications are noted in the pelvic floor. No definite renal associated calcifications are identified. Endplate osteophytes are noted diffusely in the visualized spine and there are mild degenerative changes in the hips. IMPRESSION: Left basilar infiltrate which may represent atelectasis and similar to the earlier exam Nonobstructive bowel gas pattern Report Dictated on --- Final --- Dictating Physician: MD JACKSON DIANE Signed Date and Time: 11/30/2018 7:31 pm Signed by: MD JACKSON DIANE Transcribed Date and Time: 11/30/2018 7:32 [place] [facility] Incoming Radiology Results From [facility] - 11/30/2018 7:32 PM EDT Patient Name: SHOLA MARTINEZ ---Diagnostic Radiology--- Exam Date/Time 11/30/2018 19:02:17 EDT Exam CR Abdomen Series w/ Chest 1 View Ordering Physician DO HARDIN GEORGE E Accession Number [id number] CPT4 Codes 92784 () Reason For Exam abdominal pain Report Abdomen series CLINICAL INDICATION: Abdominal pain COMPARISON: Chest 11/30/2018 11:06 AM AP view of the chest and supine and upright views of the abdomen were obtained. Cardiac silhouette is not enlarged. Patchy infiltrate is present at the left lung base. Right lung is clear. No pleural effusions are noted. Gas is noted within colon and scattered within nondilated small bowel loops. No free intraperitoneal air is noted. Venous calcifications are noted in the pelvic floor. No definite renal associated calcifications are identified. Endplate osteophytes are noted diffusely in the visualized spine and there are mild degenerative changes in the hips. IMPRESSION: Left basilar infiltrate which may represent atelectasis and similar to the earlier exam Nonobstructive bowel gas pattern Report Dictated on --- Final --- Dictating Physician: MD JACKSON DIANE Signed Date and Time: 11/30/2018 7:31 pm Signed by: MD JACKSON DIANE Transcribed Date and Time: 11/30/2018 7:32 [facility] [place] [place] XR CHEST PORTABLEon 12-01-19 [facility] Incoming Radiology Results From [facility] - 11/30/2018 11:45 AM EDT Patient Name: SHOLA MARTINEZ ---Diagnostic Radiology--- Exam Date/Time 11/30/2018 11:10:00 EDT Exam CR Chest Portable Ordering Physician ZULEMA MUKHERJEE BETH A. Accession Number [id number] CPT4 Codes 61202 () Reason For Exam possible aspiration pne. Report Indication: Possible aspiration pneumonia. Comparison: Priors most recently from 06/27/2018. Technique: A single frontal view of chest was obtained. Findings: There is mild, chronic right hemidiaphragm elevation. There is a small amount of streaky left lower lobe density. The right lung appears grossly clear. The cardiomediastinal silhouette is within normal limits. There is no visible pneumothorax or pleural effusion. Impression: Small amount of left lower lobe opacity favoring atelectasis. Report Dictated on --- Final --- Dictating Physician: MD LANG KERISTEN L Signed Date and Time: 11/30/2018 11:44 am Signed by: MD LANG KERISTEN L Transcribed Date and Time: 11/30/2018 11:45 [place] Patient Name: SHOLA URBINA ND ---Diagnostic Radiology--- Exam Date/Time 11/30/2018 11:10:00 EDT Exam CR Chest Portable Ordering Physician ZULEMA MUKHERJEE BETH A. Accession Number [id number] CPT4 Codes 35664 () Reason For Exam possible aspiration pne. Report Indication: Possible aspiration pneumonia. Comparison: [facility] most recently from 06/27/2018. Technique: A single frontal view of chest was obtained. Findings: There is mild, chronic right hemidiaphragm elevation. There is a small amount of streaky left lower lobe density. The right lung appears grossly clear. The cardiomediastinal silhouette is within normal limits. There is no visible pneumothorax or pleural effusion. Impression: Small amount of left lower lobe opacity favoring atelectasis. Report Dictated on --- Final --- Dictating Physician: MD LANG KERISTEN L Signed Date and Time: 11/30/2018 11:44 am Signed by: MD LANG KERISTEN L Transcribed Date and Time: 11/30/2018 11:45 [place] Glucose,Bedsideon 08-27-2018 Glucose mass conc 142 mg/dL High 70-100 [facility] Comment on above: Result Comment: Test performed by glucose meter. Results may be 10%-15% lower than serum/plasma values. (CLIA ID [id number]) Performed By: #### B GLU #### [facility] [address] [place] [address] Glucose mass conc 170 mg/dL High 70-100 [facility] Comment on above: Result Comment: Test performed by glucose meter. Results may be 10%-15% lower than serum/plasma values. (CLIA ID [id number]) Performed By: #### B GLU #### [facility] [address] [place] [address] Op Noteon 08-27-2018 Op Note [facility] Dictation: Topical Anesthesia Note Patient Name: Shola Martinez : 1950 Date of Procedure: 08/27/2018 Surgeon: Judy Reyes M.D. Medical Insurance Claims Processor: Anesthesia: general Preop Dx: Mature Cataract left eye Postop Dx: Mature Cataract left eye Operation: Phacoemulsification with posterior chamber intraocular implant left eye. Indications/Findings: Shola Martinez is a 67 y.o. year old male with a history of decreased visual acuity due to cataract. Preop BCVA is 20/50. The patient complained of gradual decreased vision in the left eye. Slit lamp exam revealed a mature cataract of the left eye. Ophthalmoscopy showed no macular disease. The risks and benefits were discussed with the patient and the patient was found to be in stable condition by their PCP to undergo cataract surgery. Treatment and exams are expected in the post-operative period. Estimated blood loss: none Complications: none Specimen: none Operation: The correct eye was identified and marked by me in the preop area. The patient was taken back to the operating room and prepped and draped in the usual sterile fashion for a left eye procedure. Topical tetracaine was applied to the left eye and a lid speculum was placed in the operative eye. The operating microscope was brought into proper position. A paracentesis was placed with a 15 degree blade at the 1 o'clock position and preservative free lidocaine on a 3cc syringe was instilled on a cannula into the anterior chamber. The anterior chamber was then filled with viscoelastic. A clear corneal incision was then placed from the 9 to 10 o'clock position. A 7.0mm malygin ring was placed to expand the pupil A continuous capsulorrhexis was then created using a cystotome and utrata forceps. [place]-dissection and hydro-delineation were then performed.Phacoemulsificat ion was then undertaken successfully with removal of the entire lens. Any remaining cortex was then aspirated from the eye. The capsular bag was filled with viscoelastic and an MIGDALIA ZCB00 +19.0 diopter lens was successfully introduced to the posterior chamber capsule. The malygin ring was successfully removed with a oralia hook. Any remaining viscoelastic was removed utilizing irrigation and aspiration. BSS on a cannula was used to hydrate the wounds, which was found to be self-sealing. The lid speculum was removed and the anterior chamber remained formed. Maxitrol ointment and Ciprofloxacin drops were instilled into the operative eye and a patch and shield was placed over the eye for protection. The patient was taken back to the post-operative area in good condition. The post-operative instructions were reviewed with the patient and an instruction sheet was sent home. The patient is to follow up the next day as directed. The patient should call before then if they have any increase in pain or any other concerns. Normal [facility] Glucose,Bedsideon 07-30-2018 Glucose mass conc 145 mg/dL High 70-100 [facility] Comment on above: Result Comment: Test performed by glucose meter. Results may be 10%-15% lower than serum/plasma values. (CLIA ID [id number]) Performed By: #### B GLU #### [address] [address] Op Noteon 07-30-2018 Op Note [facility] Dictation: Topical Anesthesia Note Patient Name: Shola Martinez : 1950 Date of Procedure: 07/30/2018 Surgeon: Judy Reyes M.D. 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 Indications/Findings: Shola Martinez is a 67 y.o. year old male with a history of decreased visual acuity due to cataract. Preop BCVA is 20/60. The patient complained of gradual decreased vision in the right eye. Slit lamp exam revealed a mature cataract of the right eye. Ophthalmoscopy showed no macular disease. The risks and benefits were discussed with the patient and the patient was found to be in stable condition by their PCP to undergo cataract surgery. Treatment and exams are expected in the post-operative period. Estimated blood loss: none Complications: none Specimen: none Operation: The correct eye was identified and marked by me in the preop area. The patient was taken back to the operating room and prepped and draped in the usual sterile fashion for a right eye procedure. The patient was placed under General Anesthesia. A lid speculum was placed in the operative eye. The operating microscope was brought into proper position. A paracentesis was placed with a 15 degree blade at the 7 o'clock position and preservative free lidocaine on a 3cc syringe was instilled on a cannula into the anterior chamber. The anterior chamber was then filled with viscoelastic. A clear corneal incision was then placed from the 9 to 10 o'clock position. A continuous capsulorrhexis was then created using a cystotome and utrata forceps. [place]-dissection and hydro-delineation were then performed. Phacoemulsification was then undertaken successfully with removal of the entire lens. Any remaining cortex was then aspirated from the eye. The capsular bag was filled with viscoelastic and an MIGDALIA ZCB00 +19.0 diopter lens was successfully introduced to the posterior chamber capsule. Any remaining viscoelastic was removed utilizing irrigation and aspiration. BSS on a cannula was used to hydrate the wounds, which was found to be self-sealing. The lid speculum was removed and the anterior chamber remained formed. Maxitrol ointment and Ciprofloxacin drops were instilled into the operative eye and a patch and shield was placed over the eye for protection. The patient was brought out of General Anesthesia in good condition and was taken back to the post-operative area in good condition. The post-operative instructions were reviewed with the patient and an instruction sheet was sent home. The patient is to follow up the next day as directed. The patient should call before then if they have any increase in pain or any other concerns. Normal [facility] Prealbuminon 09-26-2017 Prealbumin mass conc 23 mg/dL Normal 23-42 [facility] Comment on above: Performed By: #### U FMIC ####[address] [phone] Comp Metabolic Panelon 09-25 Albumin mass conc 3.8 g/dL Normal 3.4-4.8 [facility] Comment on above: Performed By: #### C MP ####[address] [phone] ALP enzyme act/vol 59 U/L Normal 40-129 [facility] Comment on above: Performed By: #### C MP ####[address] [phone] ALT enzyme act/vol 27 U/L Normal 0-41 [facility] Comment on above: Performed By: #### C MP ####[address] [phone] AST enzyme act/vol 33 U/L Normal 0-37 [facility] Comment on above: Performed By: #### C MP ####[address] [phone] Bili,Total 1.1 mg/dl High 0.0-1.0 [facility] Comment on above: Result Comment: Faisal ature : 1 Day 1.0-6.0 mg/dl 2 Day 6.0-8.0 mg/dl 3-5 Day 10.0-15.0 mg/dl Performed By: #### C MP ####[address] [address] [phone] Calcium mass conc 8.9 mg/dL Normal 7.6-11.0 [facility] Comment on above: Performed By: #### C MP ####[address] [phone] Chloride molar conc 100 mmol/L Normal 96-108 [facility] Comment on above: Performed By: #### C MP ####[address] [phone] CO2 molar conc 25.1 mmol/L Normal 22.0-29.0 [facility] Comment on above: Performed By: #### C MP ####[address] [phone] Creatinine mass conc 0.94 mg/dL Normal 0.70-1.20 [facility] Comment on above: Result Comment: Faisal ature 0.3-1.0 mg/dL Performed By: #### C MP ####[address] [phone] Glucose mass conc 124 mg/dL High 70-99 [facility] Comment on above: Result Comment: Lavonne gardner for Diagnosis of Diabetes(Effective 09/05/10):Fasting specimen (no caloric intake for at least 8 hours). <100 mg/dl Normal 100-125 mg/dl Increased Risk for Diabetes >125 mg/dl Diagnostic for DiabetesRandom Glucose (any time of day without regard to last meal). >=200 mg/dl plus Classic Symptoms of Diabetes Performed By: #### C MP ####[address] [phone] Potassium molar conc 3.6 mmol/L Normal 3.3-5.1 [facility] Comment on above: Performed By: #### C MP ####[address] [phone] Protein mass conc 6.6 g/dL Normal 5.9-8.4 [facility] Comment on above: Performed By: #### C MP ####[address] [phone] Sodium molar conc 136 mmol/L Normal 133-145 [facility] Comment on above: Performed By: #### C MP ####[address] [phone] Urea nitrogen mass conc 13 mg/dL Normal 4-19 [facility] Comment on above: Performed By: #### C MP ####[address] [phone] Complete Blood Counton 09-25 Differential Complete Manual Normal Mir [facility] Comment on above: Performed By: #### C BC ####[address] [phone] Erythrocyte distribution width Auto Ratio (RBC) 12.4 % Normal 0.0-14.4 [facility] Comment on above: Performed By: #### C BC ####[address] [phone] Hematocrit Auto Volume Fraction (Bld) 41.5 % Normal 41.0-50.0 [facility] Comment on above: Performed By: #### C BC ####[address] [phone] Hemoglobin mass conc (Bld) 14.1 g/dL Normal 13.5-16.5 [facility] Comment on above: Performed By: #### C BC ####[address] [phone] Immature granulocytes/100 WBC (Bld) 0.40 % Normal [facility] Comment on above: Result Comment: Brittny ture Granulocyte Percent includes promyelocytes, myelocytes,and metamyelocytes. IG% > 1.0 indicates a left shift ispresent. With automated differentials, bands are includedin the neutrophil count and not in the Immature GranulocytePercent. Performed By: #### C BC ####[address] [phone] MCH Auto Entitic mass (RBC) 29.8 pg Normal 26.0-34.0 [facility] Comment on above: Performed By: #### C BC ####[address] [phone] MCHC Auto mass conc (RBC) 34.0 % Normal 31.0-37.0 [facility] Comment on above: Performed By: #### C BC ####[address] [phone] MCV Auto Entitic volume (RBC) 87.7 fL Normal 80.0-100.0 [facility] Comment on above: Performed By: #### C BC ####[address] [phone] Nucleated RBC/100 WBC Ratio (Bld) 0.0 % Normal -1.0-0.0 [facility] Comment on above: Performed By: #### C BC ####[address] [phone] Platelet mean volume Auto Entitic volume (Bld) 9.1 fL Normal [facility] Comment on above: Result Comment: MPV is plateletrange and agedependent Performed By: #### C BC ####[address] [phone] Platelets Auto #/vol (Bld) 118 10*3/uL Low 150-450 [facility] Comment on above: Performed By: #### C BC ####[address] [phone] RBC Auto #/vol (Bld) 4.73 10E12/L Normal 4.50-5.50 [facility] Comment on above: Performed By: #### C BC ####[address] [phone] WBC Auto #/vol (Bld) 7.6 10*3/uL Normal 4.5-11.0 [facility] Comment on above: Performed By: #### C ####[facility] [place] [phone] Discharge Summaryon 09-26-19 18 Search Specialist Authentication Interface Message Text Surgery Discharge SummaryName: Shola Martinez#: [id number] : 1950Room #: 3637/01 Age/Sex: 67 y.o. maleAdmit Date: 09/25/2017 Admitting: ELMIRA Leeischarge Date: 09/25/17Attending: Kelvin Almanzar MDFinal Diagnosis:Burn any degree involving less than 10 percent of body surfaceSignificant Findings (Problem List):Active Hospital Problems Diagnosis Burn any degree involving less than 10 percent of body surface Scald burn Burn of left leg, second degree, initial encounterResolved Hospital Problems Diagnosis Date ResolvedNo resolved problems to display.Reason for Hospitalization:Scald burnDischarge Condition:StableHospital Course (Care, treatment and services provided):Shola Martinez is a 67 y.o. male who was admitted for a scald burn to hisleft lower leg after he spilled hot water on it cooking hot dogs. 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 He is being discharged with aworking diagnosis of Burn any degree involving less than 10 percent of bodysurface.On admission Mohan stated that he was cooking hot dogs in boiling water andspilled it on his leg. He was admitted overnight for concerns that he would notbe able to care for this on his own and for pain control.He was able to learn the wound care and tolerate his dressing change on oralnarcotics. [facility]. His wounds were dressed insantyl/bacitracin/cutice rin gauze with roller gauze and flexinet to secure. Hehad an appointment made in the [facility] for close follow up on September 28 at1:00pm.Significant Imaging Results:NoneTreatments and procedures with outcomes:: no complicationsDisposition:H e was discharged to home.Discharge Medications:Medication ListSTART taking these medications Morning Afternoon Evening Bedtime As NeededoxyCODONE (immediate release) 5 MG tabletTake 1 Tab (5 mg) by mouth every 6 hours as needed for Pain for up to 3 daysEarliest Fill Date: 09/25/17Commonly known as: ROXICODONE [ ] [ ] [ ] [ ] [ ]CONTINUE taking these medications which HAVE NOT changed at this visit Morning Afternoon Evening Bedtime As Neededaspirin 81 MG TabsTake 81 mg by mouth [ ] [ ] [ ] [ ] [ ]atorvastatin 20 MG tabletTake by mouth dailyCommonly known as: LIPITOR [ ] [ ] [ ] [ ] [ ]CEROVITE POTake by mouth [ ] [ ] [ ] [ ] [ ]ELIQUIS 2.5 MG tabletTake 2.5 mg by mouth 2 times dailyGeneric drug: apixaban [ ] [ ] [ ] [ ] [ ]furosemide 20 MG Tabs tabletTake 20 mg by mouth every 12 hoursCommonly known as: LASIX [ ] [ ] [ ] [ ] [ ]glimepiride 2 MG tabletTake 2 mg by mouthCommonly known as: AMARYL [ ] [ ] [ ] [ ] [ ]isosorbide mononitrate 30 MG CR tabletTake by mouth every morningCommonly known as: IMDUR [ ] [ ] [ ] [ ] [ ]losartan 25 MG Tabs tabletTake 25 mg by mouth dailyCommonly known as: COZAAR [ ] [ ] [ ] [ ] [ ]metFORMIN 500 MGTake 500 mg by mouthCommonly known as: GLUCOPHAGE-XR [ ] [ ] [ ] [ ] [ ]tamsulosin 0.4 MG capusleTake 0.4 mg by mouth dailyCommonly known as: FLOMAX [ ] [ ] [ ] [ ] [ ]TRADJENTA 5 MG TabsTake 5 mg by mouthGeneric drug: Linagliptin [ ] [ ] [ ] [ ] [ ]Where to Get Your MedicationsYou can get these medications from any pharmacyBring a paper prescription for each of these medications oxyCODONE (immediate release) 5 MG tabletDischarge Instructions:Instructions/ Follow Up Future Labs/Procedures Expected by Expires Do not drink alcohol, use illicit drugs, drive a vehicle, operate heavyahoyDoc, ride a bicycle, go to work or school,or play contact sports whiletaking your prescribed narcotic pain medication. As directed Patient Instructions As directed Comments: Follow up in [facility]patient [facility] on September 28 at 1:00pm. [phone]. They should be callingyou to set up a dressing change schedule. Shower daily and wash wound with soapand water. Apply santyl directly to open wound, then cover with bacitracin oncuticerin gauze, secure with roller gauze and flexinet. Please be advised thatno opioid prescriptions are able to be "called in" to a pharmacy. Patients mustbe seen during scheduled appointments for opioid prescriptions to be written.If you are unable to keep your scheduled appointment for any reason, then pleasecall as soon as possible to reschedule your appointment. Patients that presentto the Outpatient Burn Center after hours or on the weekends will not be givenopioid prescriptions. When you are taking narcotic medications for pain you should take a stoolsoftener such as Colace or Miralax to prevent constipation as directed by yourphysician. As directedDischarge Orders Future Labs/Procedures Expected by Expires Activity as tolerated As directed Call Pediatric Surgeon's Office for: Temperature greater than 101.5 F,persistent nausea/vomiting, increased redness that spreads away from theincision, warmth around the incision, drainage/fluid from the incision site(s),not eating/drinking, urinating at least every 6 to 8 hours, increased pain notrelieved by pain medication or any other concerns As directed Regular diet for age As directedSigned:KALEY Grande-09/25/20172:51 PM Normal [facility] Glucose by Meteron 8 Glucose mass conc 134 mg/dL High 60-110 [facility] Comment on above: Result Comment: Beds diane glucose is a screening procedure. The bedside glucosestrip is calibrated to deliver plasma glucose levels. Glucosemeter values <45 mg/dl and >450 mg/dl must be confirmed with aplasma or whole blood glucose performed in the lab. Wholeblood glucose results are 10-15% lower than plasma glucoseresults. Performed By: #### G LUM ####[address] [phone] Glucose mass conc 142 mg/dL High 60-110 [facility] Comment on above: Result Comment: [facility] diane glucose is a screening procedure. The bedside glucosestrip is calibrated to deliver plasma glucose levels. Glucosemeter values <45 mg/dl and >450 mg/dl must be confirmed with aplasma or whole blood glucose performed in the lab. Wholeblood glucose results are 10-15% lower than plasma glucoseresults. Performed By: #### G LUM ####[address] [phone] Glucose mass conc 144 mg/dL High 60-110 [facility] Comment on above: Result Comment: Beds diane glucose is a screening procedure. The bedside glucosestrip is calibrated to deliver plasma glucose levels. Glucosemeter values <45 mg/dl and >450 mg/dl must be confirmed with aplasma or whole blood glucose performed in the lab. Wholeblood glucose results are 10-15% lower than plasma glucoseresults. Performed By: #### G LUM ####[address] [phone] H&Josue 09-25-2017 Search Specialist Authentication Interface Message Text HISTORY AND PHYSICALDATE OF SERVICE: 09/25/2017ATTENDING PROVIDER: Kelvin Almanzar MDPRIMARY CARE PROVIDER: [facility], 1, MDMandatory Information: Required on all patientsDate of Burn: 09/24/17 Time of Burn: 10pmPrevious Treatment: none Place of Treatment: nonePlace of Injury: Home Intent of Injury: AccidentMechanism of Burn: Contact- hot liquid, gas, object: hot water InhalationInjury: NoWork Related Injury: No Site:second degree: 4% TBSATotal TBSA: 4% TBSAWith 0%third degree burn Cellulitis:no cellulitisChief Complaint: scald burnHISTORY OF PRESENT INJURY:Shola is a 67 y.o. male with DM, HTN, HLD who presents with scald burn. Thehistory is provided by the patient. The events are as follows: patient wascooking hot dogs when he spilt hot water over his left leg and foot. Patientlives alone and has difficulty taking care of his wounds if discharged home.Pre-Hospital Treatment Received : IV fluid: none Other treatment: noneHistory of Closed Space Injury? NoLoss of Consciousness? NoAmnesia? NoSeizure? NoTetanus Status: not knownTransferred Patient: NoTransport: GroundImmobilization: NoneGCS at Outside Facility: Nonintubated patient. Score:15MEDICAL/SURGICAL/F AMILY HISTORY:Past Medical History:Diagnosis Date Diabetes mellitus, type 2 HTN (hypertension) Hyperlipidemia Neuropathy Sleep apneaPast Surgical History:Procedure Laterality Date APPENDECTOMY CHOLECYSTECTOMY FOOT SURGERY Left first and second toe amputation due to infection INGUINAL HERNIA REPAIR LeftHistory reviewed. No pertinent family history.LMP: NASOCIAL HISTORY:Shola resides aloneOccupation: umemployed, disabledTravel: NoTobacco Use/Exposure: non smokerAlcohol/Drug Use: noneDRUG/FOOD ALLERGIES:Not on FileIMMUNIZATIONS:Not evaluated at this timeMEDICATIONS:Prescripti ons Prior to AdmissionMedication Sig Dispense Refill Last Dose aspirin 81 MG TABS Take 81 mg by mouth 09/24/2017 at 0800 Multiple Vitamins-Minerals (CEROVITE PO) Take by mouth 09/24/2017 at 0800 apixaban (ELIQUIS) 2.5 MG tablet Take 2.5 mg by mouth 2 times daily09/24/2017 at 2000 furosemide (LASIX) 20 MG TABS tablet Take 20 mg by mouth every 12 hours09/24/2017 at 2000 glimepiride (AMARYL) 2 MG tablet Take 2 mg by mouth 09/24/2017 at 0800 isosorbide mononitrate (IMDUR) 30 MG CR tablet Take by mouth every morning09/24/2017 at 0800 losartan (COZAAR) 25 MG TABS tablet Take 25 mg by mouth daily 09/24/2017 [id number] tamsulosin (FLOMAX) 0.4 MG capusle Take 0.4 mg by mouth daily 09/24/2017 [id number] Linagliptin (TRADJENTA) 5 MG TABS Take 5 mg by mouth 09/24/2017 at 0800 atorvastatin (LIPITOR) 20 MG tablet Take by mouth daily 09/24/2017 metFORMIN (GLUCOPHAGE-XR) 500 MG Take 500 mg by mouth 09/24/2017 at 2000ROS:Pertinent items are noted in HPI.VITAL SIGNS:Vitals: 09/25/17 0020BP: 130/74Pulse: 85Resp: 23Temp:PHYSICAL EXAM:General: healthy, well developed, well nourished, in no acute distressNeurologic: alert, oriented appropriately for age Glascow Coma Scale: 15HEENT: atraumatic and normocephalic Throat: oropharynx is clear without tonsillar inflammation or exudate Neck: full range of motionCardiac: regular rate and rhythm, normal S1 and T0Dvqdhupxrex: breath sounds clearAbdomen: abdomen is soft, nontender, and nondistendedBack: normalExtremities: scald burn of L leg on the anteromedial aspect. Mostly 2nd deg burnwith small areas of 2nd deg burn on the left foot dorsumRESULTS/FINDINGS:Lab s:Invalid input(s): CORRWBCInvalid input(s): MONOPCTMAN, EOSPCTMANRadiology:noneThr ombosis Risk Factor Assessment: (Score patients > 12 years of age)Thrombosis Risk Factor AssessmentEACH RISK FACTOR REPRESENTS 1 POINTSObesity (BMI >95th percentile)Medical patient currently at bed restSUBTOTAL: 2EACH RISK FACTOR REPRESENTS 2 POINTSAge 61-74 yearsSUBTOTAL: 2EACH RISK FACTOR REPRESENTS 3 POINTSN/ASUBTOTAL: 0EACH RISK FACTOR REPRESENTS 5 POINTSN/ASUBTOTAL: 0TOTAL RISK FACTOR SCORE: 4Total Risk Factor Score Risk Level Incidence of DVT RecommendedProphylaxis Regimen0-1 Low Risk 2% Early Ambulation2 Moderate Risk 10-20% Choose the following:Lovenox: Use order Set: Gen IP low molecular weight Heparin ordersORSequential Compression Devices (only if no injury below the knees or Lovenoxcontraindicated3- 4 Higher Risk 20-40% Choose the following:Lovenox: Use order Set: Gen IP low molecular weight Heparin ordersWITH or WITHOUTSequential Compression Devices (only if no injury below the knees or Lovenoxcontraindicated5 or more Highest Risk 40-80% Choose the following:Lovenox: Use order Set: Gen IP low molecular weight Heparin ordersANDSequential Compression Devices (only if no injury below the knees or LovenoxcontraindicatedVTE Prophylaxis Contraindicated/Deferred: NoASSESSMENT:67 y.o. with a principal problem of scald burn who requires admission forFailure of non-hospital therapy and Unable to ensure patient safety.Additional active problems include:Active Problems: Scald burn.PLAN:1)Neuro: Pain control with morphine and tylenol 2)CV: No issues, continue home meds 3)Pulm: No issues 4)GI: Regular diet 5)F/E/N: BMP 6)Renal: No issues 7)ID: No issues 8)Heme: CBC, DVT prophy 9)Endo: SSI10)KRISTOFER: PT/OT11)T/L/D: Peripheral IV12)Wounds: bacitracin/cuticerinConsul tants:NoneRaghavendra Chris Perez MD 09/25/2017 12:35 AMThis patient was seen and examined in conjunction with our resident. I agreewith the history, physical examination, assessment, and treatment plan asdocumented.Any changes, corrections, or edits are noted below.Seen and examined during rounds today. Discussed with Dr Perez over phone andadmitted early this morning.Hx reviewed. 67 yo WM with comorbidities, HTN, HLD, neuropathy, DM with a scaldinjury from cooking yesterday with injury to his left calf and posteriorpopliteal/distal thigh area.ExamAF, VSS on RAgen: nad, alertLLE: Partial thickness deep dermal burn to left anterior and posterior calfextending to popliteal oren. Clean. No s/s of infection. No cellulitis.Labs reviewedAlbumin 3.8Glucose 124Bu 13Creatinine 0.94Wbc 7.6Hb 14.1UA negativePlanAdmitted today.Pain controlNutritionGlucose controlPt/otOut of bedDressing care done today with minimal. Bacitracin/santyl, cuticerin.Plan to have friend/family to assist with dressing care vs home health care.Follow up in outpatient burn centerSWCounseling and/or coordination of care was greater than 30 minutes which is morethan 50% of the total time of 50 minutes spent on the encounter.Please reviewthe assessment and plan portions of my note regarding what was discussed duringthis visit.Kelvin Almanzar MD09/25/2017 Normal [facility] Manual Differentialon 2017 Absolute Neutrophil No. 4.7 Normal [facility] Comment on above: Performed By: #### M DIFF ####[facility] [address] [phone] Atypical Lymphocytes 11 % High 0-8 [facility] Comment on above: Performed By: #### M DIFF ####[facility] [address] [phone] Band Neutrophils 7 % Normal 5-11 [facility] Comment on above: Performed By: #### M DIFF ####[facility] [address] [phone] Cell Morphology Normal Normal [facility] Comment on above: Performed By: #### M DIFF ####[facility] [address] [phone] Eosinophils 1 % Normal 0-3 [facility] Comment on above: Performed By: #### M DIFF ####[facility] [address] [phone] Lymphocytes 24 % Normal 24-44 [facility] Comment on above: Performed By: #### M DIFF ####[facility] [address] [phone] Metamyelocytes 0 % Normal 0-0 [facility] Comment on above: Performed By: #### M DIFF ####[facility] [address] [phone] Monocytes 2 % Low 3-6 [facility] Comment on above: Performed By: #### M DIFF ####[facility] [address] [phone] Myelocytes 0 % Normal 0-0 [facility] Comment on above: Performed By: #### M DIFF ####[address] [phone] Promyelocytes 0 % Normal 0-0 [facility] Comment on above: Performed By: #### M DIFF ####[address] [phone] Segmented Neutrophils 55 % Normal 35-66 [facility] Comment on above: Performed By: #### M DIFF ####[address] [phone] Urinalysis,Automatedon 09-25 Epithelial cells.squamous LM.HPF #/area (Urine sed) 1 /uL Normal 0-20 [facility] Comment on above: Performed By: #### U FMIC ####[address] [phone] INR Coag RelTime (Bld) 1.0 /uL Normal 0.0-20.0 [facility] Comment on above: Performed By: #### U FMIC ####[address] [phone] Mucous Small Normal [facility] Comment on above: Performed By: #### U FMIC ####[address] [phone] WBC 2.0 /uL Normal 0.0-20.0 [facility] Comment on above: Performed By: #### U FMIC ####[address] [phone] Urinalysis,Completeon 2017 Volume 12 ml Normal 12 [facility] Comment on above: Performed By: #### U ACOM ####[address] [phone] Bilirubin,urine Negative Normal Negative [facility] Comment on above: Performed By: #### U ACOM ####[facility] [address] [phone] Character Clear Normal [facility] Comment on above: Performed By: #### U ACOM ####[facility] [address] [phone] Color Straw Normal [facility] Comment on above: Performed By: #### U ACOM ####[facility] [address] [phone] Glucose Ql (U) Negative Normal Negative [facility] Comment on above: Performed By: #### U ACOM ####[facility] [address] [phone] Hemoglobin Negative Normal Negative [facility] Comment on above: Performed By: #### U ACOM ####[facility] [address] [phone] Ketones Negative Normal Negative [facility] Comment on above: Performed By: #### U ACOM ####[facility] [address] [phone] Leukocyte Esterase Negative Normal Negative [facility] Comment on above: Performed By: #### U ACOM ####[facility] [address] [phone] Nitrites Negative Normal Negative [facility] Comment on above: Performed By: #### U ACOM ####[facility] [address] [phone] pH Test strip (U) 5.0 Normal 5.0-8.0 [facility] Comment on above: Performed By: #### U ACOM ####[facility] [address] [phone] Protein mass conc Negative Normal Neg.-Trace [facility] Comment on above: Performed By: #### U ACOM ####[facility] [place] [phone] Specific gravity 1.010 Normal 1.005-1.03 0 [facility] Comment on above: Performed By: #### U ACOM ####[facility] [place] [phone] Urobilinogen 0.2 mg/dl Normal Negative [facility] Comment on above: Performed By: #### U ACOM ####[facility] [place] [phone] Otheron 06-16-2011 CONVERTED CLINICAL HISTORY OPERATIVE PROCEDURE: I&D left foot ulcer, revision amputation left 1st Ray, possible application wound vac CLINICAL INFORMATION: Left foot ulcer, 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 (Electronic signature on file) Final Signed Out: 06/16/2011 15:58 [facility] CONVERTED FINAL DIAGNOSIS FINAL DIAGNOSIS: A) EXCISION OF LEFT FOOT TISSUE - SKIN AND SUBCUTANEOUS TISSUES WITH ULCERATION, ACUTE INFLAMMATION, AND ABSCESS FORMATION. B) BONE OF LEFT FOOT - ACUTE OSTEOMYELITIS. SPECIMEN: (A) FOOT (B) FOOT [facility] CONVERTED GROSS DESCRIPTION GROSS DESCRIPTION: A. left foot tissue Container labeled left foot. Received are portions of pelaez skin with attached soft tissue measuring 7 x 2 x 2 cm. On the surface is an ulcer measuring 1.5 cm in diameter. On cut section, the underlying soft tissue demonstrates diffuse areas of hemorrhage. [employer] Coordinator sample submitted in two cassettes labeled A. B. left foot bone Container labeled bone, left foot. Received is a segment of pelaez-pink bone measuring 3 x 3 x 2 cm. Real Estate Services Coordinator sample submitted in two cassettes labeled B following decal. SMS:hlm MICROSCOPIC DESCRIPTION: Slides reviewed. EAC/gpl [facility] CONVERTED ORDERING PROVIDER Ordering Provider: KELLE SIM [facility] Vital Signs Date Time Vital Sign Value Performing Clinician Facility 11-11-2022 11:41-0400 Body temperature 98 [degF] BANANA GRADER-C Jessica Antonio BANANA GRADER Work Phone: [facility] 11-11-2022 11:41-0400 Diastolic blood pressure 78 mm[Hg] BANANA GRADER-C Jessica Alvarez BANANA GRADER Work Phone: [facility] 11-11-2022 11:41-0400 Heart rate 85 /min BANANA GRADER-C Jessica Alvarez BANANA GRADER Work Phone: [facility] 11-11-2022 11:41-0400 Respiratory rate 18 /min BANANA GRADER-C Jessica Alvarez BANANA GRADER Work Phone: [facility] 11-11-2022 11:41-0400 SaO2% (BldA) [Mass fraction] 97 % BANANA GRADER-C Jessica Alvarez BANANA GRADER Work Phone: [facility] 11-11-2022 11:41-0400 Systolic blood pressure 144 mm[Hg] BANANA GRADER-C Jessica Alvarez BANANA GRADER Work Phone: [phone] [place] [address] 11-11-2022 06:00-0400 Body mass index (BMI) [Ratio] 34 kg/m2 BANANA GRADER-C Jessica Alvarez BANANA GRADER Work Phone: [facility] 11-11-2022 06:00-0400 Body weight 120 kg BANANA GRADER-C Jessica Alvarez BANANA GRADER Work Phone: [facility] 11-08-2022 21:09-0400 Body height 187.96 cm BANANA GRADER-C Jessica Alvarez BANANA GRADER Work Phone: [facility] 11-08-2022 20:02-0400 Body temperature 98.6 [degF] [facility] 11-08-2022 20:02-0400 Diastolic blood pressure 86 mm[Hg] [facility] 11-08-2022 20:02-0400 Heart rate 78 /min [facility] 11-08-2022 20:02-0400 Respiratory rate 23 /min [facility] 11-08-2022 20:02-0400 SaO2% (BldA) [Mass fraction] 97 % [facility] 11-08-2022 20:02-0400 Systolic blood pressure 103 mm[Hg] [facility] 11-08-2022 16:55-0400 Body height 187.96 cm [facility] 11-08-2022 16:55-0400 Body mass index (BMI) [Ratio] 35.6 kg/m2 [facility] 11-08-2022 16:55-0400 Body weight 126.1 kg [facility] 11-08-2022 08:31-0400 Body height 187.96 cm [facility] 11-08-2022 08:31-0400 Body mass index (BMI) [Ratio] 35.2 kg/m2 [facility] 11-08-2022 08:31-0400 Body temperature 97.9 [degF] [facility] 11-08-2022 08:31-0400 Body weight 124.4 kg [facility] 11-08-2022 08:31-0400 Diastolic blood pressure 69 mm[Hg] [facility] 11-08-2022 08:31-0400 Heart rate 87 /min [facility] 11-08-2022 08:31-0400 Respiratory rate 14 /min [facility] 11-08-2022 08:31-0400 SaO2% (BldA) [Mass fraction] 97 % [facility] 11-08-2022 08:31-0400 Systolic blood pressure 140 mm[Hg] [facility] 10-03-2022 09:36-0400 Diastolic blood pressure 77 mm[Hg] [facility] 10-03-2022 09:36-0400 Heart rate 81 /min [facility] 10-03-2022 09:36-0400 Respiratory rate 14 /min [facility] 10-03-2022 09:36-0400 SaO2% (BldA) [Mass fraction] 98 % [facility] 10-03-2022 09:36-0400 Systolic blood pressure 149 mm[Hg] [facility] 10-03-2022 06:52-0400 Body height 187.96 cm [facility] 10-03-2022 06:52-0400 Body mass index (BMI) [Ratio] 35.6 kg/m2 [facility] 10-03-2022 06:52-0400 Body temperature 97.9 [degF] [facility] 10-03-2022 06:52-0400 Body weight 126 kg [facility] 04-30-2021 07:22-0500 Body temperature 97.52 [degF] MILAD SNOW MD [facility] 04-30-2021 07:22-0500 Diastolic blood pressure 88 mm[Hg] MILAD SNOW MD [facility] 04-30-2021 07:22-0500 Heart rate 72 /min MILAD SNOW MD [facility] 04-30-2021 07:22-0500 Respiratory rate 18 /min MILAD SNOW MD [facility] 04-30-2021 07:22-0500 Systolic blood pressure 132 mm[Hg] MILAD SNOW MD [facility] 03-01-2021 16:10-0500 Diastolic blood pressure 72 mm[Hg] CIERRA LEONIDES SENIOR BRANCH MANAGER-DIALYSIS CHIEF EQUIPMENT TECHNICIAN [facility] 03-01-2021 16:10-0500 Heart rate 67 /min CIERRA ALTAMIRANOELY SENIOR BRANCH MANAGER-DIALYSIS CHIEF EQUIPMENT TECHNICIAN [facility] 03-01-2021 16:10-0500 Respiratory rate 18 /min CIERRA ALTAMIRANOELY SENIOR BRANCH MANAGER-DIALYSIS CHIEF EQUIPMENT TECHNICIAN [facility] 03-01-2021 16:10-0500 Systolic blood pressure 141 mm[Hg] CIERRA ALTAMIRANOELY SENIOR BRANCH MANAGER-DIALYSIS CHIEF EQUIPMENT TECHNICIAN [facility] 03-01-2021 10:51-0500 Heart rate 68 /min CIERRA LEONIDES SENIOR BRANCH MANAGER-DIALYSIS CHIEF EQUIPMENT TECHNICIAN [facility] 03-01-2021 10:51-0500 Respiratory rate 18 /min CIERRA LEONIDES SENIOR BRANCH MANAGER-DIALYSIS CHIEF EQUIPMENT TECHNICIAN [facility] 03-01-2021 08:50-0500 Body temperature 96.8 [degF] CIERRA LEONIDES SENIOR BRANCH MANAGER-DIALYSIS CHIEF EQUIPMENT TECHNICIAN [facility] 03-01-2021 08:50-0500 Diastolic blood pressure 78 mm[Hg] CIERRA LEONIDES SENIOR BRANCH MANAGER-DIALYSIS CHIEF EQUIPMENT TECHNICIAN [facility] 03-01-2021 08:50-0500 Heart rate 89 /min CIERRA LEONIDES SENIOR BRANCH MANAGER-DIALYSIS CHIEF EQUIPMENT TECHNICIAN [facility] 03-01-2021 08:50-0500 Mean blood pressure 100 mm[Hg] CIERRA LEONIDES SENIOR BRANCH MANAGER-DIALYSIS CHIEF EQUIPMENT TECHNICIAN [facility] 03-01-2021 08:50-0500 Respiratory rate 18 /min CIERRA LEONIDES SENIOR BRANCH MANAGER-DIALYSIS CHIEF EQUIPMENT TECHNICIAN [facility] 03-01-2021 08:50-0500 Systolic blood pressure 144 mm[Hg] CIERRA LEONIDES SENIOR BRANCH MANAGER-DIALYSIS CHIEF EQUIPMENT TECHNICIAN [facility] 03-01-2021 04:09-0500 Body temperature 96.8 [degF] CIERRA LEONIDES SENIOR BRANCH MANAGER-DIALYSIS CHIEF EQUIPMENT TECHNICIAN [facility] 03-01-2021 04:09-0500 Diastolic blood pressure 61 mm[Hg] CIERRA COYLE SENIOR BRANCH MANAGER-DIALYSIS CHIEF EQUIPMENT TECHNICIAN [facility] 03-01-2021 04:09-0500 Mean blood pressure 84 mm[Hg] CIERRA COYLE SENIOR BRANCH MANAGER-DIALYSIS CHIEF EQUIPMENT TECHNICIAN [facility] 03-01-2021 04:09-0500 Reason For Taking VItal Signs CIERRA COYLE SENIOR BRANCH MANAGER-DIALYSIS CHIEF EQUIPMENT TECHNICIAN [facility] 03-01-2021 04:09-0500 Systolic blood pressure 131 mm[Hg] CIERRA COYLE SENIOR BRANCH MANAGER-DIALYSIS CHIEF EQUIPMENT TECHNICIAN [facility] 02-28-2021 23:55-0500 Body temperature 95.36 [degF] CIERRA COYLE SENIOR BRANCH MANAGER-DIALYSIS CHIEF EQUIPMENT TECHNICIAN [facility] 02-28-2021 20:00-0500 Heart rate 81 /min CIERRA COYLE SENIOR BRANCH MANAGER-DIALYSIS CHIEF EQUIPMENT TECHNICIAN [facility] 02-28-2021 20:00-0500 Mean blood pressure 105 mm[Hg] CIERRA COYLE SENIOR BRANCH MANAGER-DIALYSIS CHIEF EQUIPMENT TECHNICIAN [facility] 02-28-2021 20:00-0500 Reason For Taking VItal Signs CIERRA COYLE SENIOR BRANCH MANAGER-DIALYSIS CHIEF EQUIPMENT TECHNICIAN [facility] 02-28-2021 15:33-0500 Heart rate 78 /min CIERRA COYLE APRN-DIALYSIS CHIEF EQUIPMENT TECHNICIAN [facility] 02-28-2021 15:33-0500 Reason For Taking VItal Signs CIERRA COYLE APRN-DIALYSIS CHIEF EQUIPMENT TECHNICIAN [facility] 02-28-2021 11:37-0500 Heart rate 84 /min CIERRA COYLE APRN-DIALYSIS CHIEF EQUIPMENT TECHNICIAN [facility] 02-27-2021 09:11-0500 SaO2% (BldA) [Mass fraction] 94 % CIERRA COYLE APRN-DIALYSIS CHIEF EQUIPMENT TECHNICIAN [facility] 02-27-2021 00:40-0500 Body height 188 cm CIERRA COYLE APRN-DIALYSIS CHIEF EQUIPMENT TECHNICIAN [facility] 02-27-2021 00:40-0500 Body weight 112 kg CIERRA COYLE APRN-DIALYSIS CHIEF EQUIPMENT TECHNICIAN [facility] 02-27-2021 00:40-0500 Body weight 31.69 kg/m2 CIERRA COYLE APRN-DIALYSIS CHIEF EQUIPMENT TECHNICIAN [facility] 02-01-2021 07:50-0400 Body temperature 97.7 [degF] Jesse Pack MD Work Phone: [facility] Work Phone: 02-01-2021 07:50-0400 Diastolic blood pressure 78 mm[Hg] Jesse Pack MD Work Phone: [facility] Work Phone: 02-01-2021 07:50-0400 Heart rate 62 /min Jesse Pack MD Work Phone: [facility] Work Phone: 02-01-2021 07:50-0400 Respiratory rate 18 /min Jesse Pack MD Work Phone: [facility] Work Phone: 02-01-2021 07:50-0400 SaO2% (BldA) [Mass fraction] 98 % Jesse Pack MD Work Phone: [employer] Work Phone: 02-01-2021 07:50-0400 Systolic blood pressure 128 mm[Hg] Jesse Pack MD Work Phone: [employer] Work Phone: 01-31-2021 19:54-0400 Body height 188 cm Jesse Pack MD Work Phone: [employer] Work Phone: 01-31-2021 19:54-0400 Body mass index (BMI) [Ratio] 34.15 kg/m2 Jsese Pack MD Work Phone: [employer] Work Phone: 01-31-2021 19:54-0400 Body weight 120.66 kg Jesse Pack MD Work Phone: [employer] Work Phone: 02-11-2020 20:55-0500 BMI (Body Mass Index) 35.95 kg/m2 [employer] [facility] [place] 02-11-2020 20:55-0500 Body Temperature 98.6 [degF] [employer] [facility] [place] 02-11-2020 20:55-0500 Body weight 127.01 kg [employer] [facility] [place] , [place] 02-11-2020 20:55-0500 BP Diastolic 75 mm[Hg] [employer] [facility] [place] [facility] [place] 02-11-2020 20:55-0500 BP Systolic 149 mm[Hg] [employer] [facility] [place] [facility] [place] 02-11-2020 20:55-0500 Height 188 cm [employer] [facility] [place] , [place] 02-11-2020 20:55-0500 Pulse (Heart Rate) 92 /min Favian Zendejas [facility] [place] 02-11-2020 20:55-0500 Pulse Oximetry 98 % Favian Zendejas [facility] [place] [facility] [place] 02-11-2020 20:55-0500 Respiratory Rate 18 /min Favian Zendejas [facility], [place] 01-06-2020 22:38-0400 BP Diastolic 73 mm[Hg] Favian Trevizo [facility] , [place] 01-06-2020 22:38-0400 BP Systolic 142 mm[Hg] [facility] [place] 01-06-2020 22:38-0400 Pulse (Heart Rate) 88 /min wendy Zendejas [facility] [place], [place] 01-06-2020 22:38-0400 Pulse Oximetry 100 % Favian Zendejas [facility] [place] [facility] [place] 01-06-2020 22:38-0400 Respiratory Rate 16 /min wendy Zendejas [facility], [place] 01-06-2020 19:16-0400 BMI (Body Mass Index) 35.95 kg/m2 Favian Zendejas [facility], [place] 01-06-2020 19:16-0400 Body Temperature 99.61 [degF] wendy Zendejas [facility], [place] 01-06-2020 19:16-0400 Body weight 127.01 kg wendy Zendejas [facility] [place] , [place] 01-06-2020 19:16-0400 Height 188 cm [facility] [place] 09-16-2019 14:51-0400 Body Temperature 98.2 [degF] [facility] [place] 09-16-2019 14:51-0400 BP Diastolic 55 mm[Hg] [facility] [place] 09-16-2019 14:51-0400 BP Systolic 108 mm[Hg] [facility] [place] 09-16-2019 14:51-0400 Pulse (Heart Rate) 66 /min [facility], [place] 09-16-2019 14:51-0400 Pulse Oximetry 94 % [facility] [place] 09-16-2019 14:51-0400 Respiratory Rate 20 /min [facility] [place] 09-12-2019 19:36-0400 BMI (Body Mass Index) 36.32 kg/m2 [facility] [place] 09-12-2019 19:36-0400 Body weight 128.[address] [facility] [place] 09-12-2019 15:03-[address] [facility] [place] 09-02-2019 22:00-0400 BP Diastolic 84 mm[Hg] [facility] [place] 09-02-2019 22:00-0400 BP Systolic 159 mm[Hg] [facility] [place] 09-02-2019 22:00-0400 Pulse (Heart Rate) 76 /min [facility] [place] 09-02-2019 22:00-0400 Pulse [facility]xim[facility] 100 % [facility] [place] 09-02-2019 22:00-0400 Respiratory Rate 18 /min [facility] [place] 09-02-2019 20:18-0400 Body Temperature 98.6 [degF] Tyler [facility], [place] 12-04-2018 15:08-0400 Body Temperature 98.71 [degF] Praneeth [facility], [place] 12-04-2018 15:08-0400 BP Diastolic 83 mm[Hg] Praneeth Rosa [facility] , [place] 12-04-2018 15:08-0400 BP Systolic 151 mm[Hg] Praneeth Rosa [facility] , [place] 12-04-2018 15:08-0400 Pulse (Heart Rate) 67 /min Praneeth Rosa [facility], [place] 12-04-2018 15:08-0400 Pulse Oximetry 98 % Praneeth Rosa [facility] , [place] 12-04-2018 15:08-0400 Respiratory Rate 22 /min Praneeth Rosa [facility], [place] 12-02-2018 03:49-0400 BMI (Body Mass Index) 38.45 kg/m2 Praneeth Rosa [facility], [place] 12-02-2018 03:49-0400 Body weight 135.85 kg Praneeth Rosa [facility] 11-30-2018 10:13-0400 Height 188 cm Praneeth Rosa [place], [place] Encounters Encounter Date Encounter Type Care Provider Facility Start: 05-15-2024 End: 05-15-2024 Emergency department patient visit Jessica Alvarez BANANA GRADER Facility:[facility] Start: 11-08-2023 ambulatory Mark Anthony Thomas Facility: [facility] Start: 11-08-2023 End: 11-12-2023 Evaluation and management of inpatient Jessica Alvarez BANANA GRADER Facility:[facility] Start: 12-28-2022 End: 12-28-2022 ambulatory BANANA GRADER-C Jessica Alvarez BANANA GRADER Work Phone: [facility] Work Phone: Start: 12-28-2022 End: 12-28-2022 Patient encounter procedure BANANA GRADER-C Jessica Alvarez BANANA GRADER Work Phone: [facility]-Outpatient Bone Densitometry Work Phone: Start: 11-11-2022 Non-patient / Non-visit BANANA GRADER-C Cesar Alvarez BANANA GRADER Work Phone: [facility] Work Phone: Start: 11-10-2022 Non-patient / Non-visit BANANA GRADER-C Cesar Alvarez BANANA GRADER Work Phone: [facility] Work Phone: Start: 11-09-2022 Non-patient / Non-visit BANANA GRADER-C Cesar Alvarez BANANA GRADER Work Phone: [facility] Work Phone: Start: 11-08-2022 End: 11-11-2022 Evaluation and management of inpatient [facility]-Progressive Care Unit Work Phone: Start: 11-08-2022 End: 11-11-2022 observation encounter BANANA GRADER-C Jessica Alvarez BANANA GRADER Work Phone: [facility] Work Phone: Start: 11-08-2022 End: 11-08-2022 Emergency department patient visit [facility]-Emergency Department Work Phone: Start: 10-03-2022 End: 10-03-2022 Emergency department patient visit [facility]-Emergency Department Work Phone: Start: 02-14-2022 End: 02-14-2022 AMB External Visit DANAY CASTILLO MD [facility] Start: 04-30-2021 End: 04-30-2021 Emergency department patient visit MILAD SNOW MD [facility] Start: 02-26-2021 End: 03-01-2021 Evaluation and management of inpatient CIERRA COYLE SENIOR BRANCH MANAGER-DIALYSIS CHIEF EQUIPMENT TECHNICIAN [facility] Start: 02-16-2021 Patient encounter procedure [facility] Provider [facility] Department Start: 01-30-2021 End: 02-01-2021 Emergency department patient visit Jesse Pack MD Work Phone: [facility] Comment on above: Lightheadedness (Nelida adela Dx) Start: 01-03-2021 End: 01-03-2021 Subsequent hospital visit by physician Favian Trevizo MD PhD Work Phone: [facility] Start: 02-11-2020 End: 02-11-2020 Emergency department patient visit Favian Trevizo [facility] Comment on above: Closed head injury, initial encounter (Primary Dx); Fall, initial encounter; Lumbar strain, initial encounter Start: 01-06-2020 End: 01-06-2020 Emergency department patient visit Favian Trevizo [facility] Comment on above: Subjective fever (Pr imary Dx) Start: 09-12-2019 End: 09-16-2019 Emergency department patient visit Mojgan Ivy Work Phone: [facility] Comment on above: Acute cystitis with hematuria (Primary Dx); Dehydration; Generalized weakness Start: 09-02-2019 End: 09-02-2019 Emergency department patient visit Tyler Bermudez Work Phone: [facility] Comment on above: Injury of head, init ial encounter (Primary Dx) Start: 11-30-2018 End: 12-04-2018 Evaluation and management of inpatient Praneeth Rosa Work Phone: [facility] Comment on above: Pneumonia due to org anism (Primary Dx); Non-intractable vomiting with nausea, unspecified vomiting type; General weakness; Elevated lactic acid level Start: 10-31-2017 End: 11-01-[address] [facility] Start: 10-24-2017 End: 10-25-[address] [facility] Start: 10-17-2017 End: 10-18-[address] [facility] Start: 10-09-2017 End: 10-10-2017 Patient encounter ROSA Nguyen [facility] Start: 10-02-2017 End: 10-03-[address] [facility] Start: 09-25-2017 End: 09-25-2017 Evaluation and management of inpatient KELVIN ALMANZAR [facility] Start: 06-10-2011 End: 06-10-2011 Patient encounter procedure Kelle Sim Work Phone: [facility] Start: 06-10-2011 Results Only Kelel Sim Work Phone: [facility] Procedures Date Procedure Procedure Detail Performing Clinician Start: 12-28-2022 Dual energy X-ray absorptiometry BANANA GRADER-C Jessica Alvarez BANANA GRADER Work Phone: Start: 11-10-2022 US scan of gallbladder BANANA GRADER-C Jessica sahni BANANA GRADER Work Phone: Start: 11-09-2022 Plain chest X-ray BANANA GRADER-C Jessica Diez P Work Phone: Start: 11-08-2022 Plain chest X-ray Start: 11-08-2022 Coronavirus COVID-19 PCR BANANA GRADER-C Jessica Lomeli gil BANANA GRADER Work Phone: Start: 10-03-2022 X-ray of chest posteroanterior view Start: 02-01-2021 BASIC METABOLIC PANEL W/ REFLEX TO MG FOR LOW K Elyse Whitney MD Work Phone: Start: 02-01-2021 Blood count complete auto&auto difrntl wbc Elyse Whitney MD Work Phone: Start: 01-31-2021 Mri brain brain stem w/o contrast material Eb Burgos MD Work Phone: Start: 01-31-2021 Lipid panel Eb Burgos MD Work Phone: Start: 01-30-2021 Prothrombin time Denzel Mendes PA- C Work Phone: Start: 01-30-2021 Ct head/brain w/o contrast material Denzel Chappelle PA-C Work Phone: Start: 01-30-2021 Ecg routine ecg w/least 12 lds w/i&r Denzel Saezvre PA-C Work Phone: Start: 02-11-2020 Radex spine lumbosacral 2/3 views Kelle Albrecht Work Phone: Start: 02-11-2020 Ct cervical spine w/o contrast material Kelle Albrecht Work Phone: Start: 02-11-2020 Ct head/brain w/o contrast material Kelle Patrick Ajungocarlos Work Phone: Start: 09-16-2019 Gluc bld gluc mntr dev cleared fda spec home use Mojgan Ivy Work Phone: Start: 09-16-2019 Gluc bld gluc mntr dev cleared fda spec home use Mojgan Ivy Work Phone: Start: 09-16-2019 Gluc bld gluc mntr dev cleared fda spec home use [facility] Work Phone: Start: 09-16-2019 BASIC METABOLIC PANEL W/ REFLEX TO MG FOR LOW K Shea Aguilar Work Phone: Start: 09-16-2019 Blood count complete automated Shea Aguilar Work Phone: Start: 09-15-2019 Gluc bld gluc mntr dev cleared fda spec home use Mojgan Ulricha Work Phone: Start: 09-15-2019 Gluc bld gluc mntr dev cleared fda spec home use [facility] Work Phone: Start: 09-15-2019 Gluc bld gluc mntr dev cleared fda spec home use Mo[facility]gan [facility] Work Phone: Start: 09-15-2019 Gluc bld gluc mntr dev cleared fda spec home use Mojgan Ivy Work Phone: Start: 09-15-2019 Gluc bld gluc mntr dev cleared fda spec home use Mojganclay Ulricha Work Phone: Start: 09-15-2019 BASIC METABOLIC PANEL W/ REFLEX TO MG FOR LOW K Shea Aguilar Work Phone: Start: 09-15-2019 Blood count complete automated Shea Aguilar Work Phone: Start: 09-14-2019 Gluc bld gluc mntr dev cleared fda spec home use Mojgan Ulricha Work Phone: Start: 09-14-2019 Gluc bld gluc mntr dev cleared fda spec home use [facility] Work Phone: Start: 09-14-2019 COVID-19 Shea Aguilar Work Phone: Start: 09-14-2019 25 hydroxy includes fractions if performed Shea Aguilar Work Phone: Start: 09-14-2019 Assay of free thyroxine Shea bee Work Phone: Start: 09-14-2019 Assay of thyroid stimulating hormone tsh Shea Aguilar Work Phone: Start: 09-14-2019 Gluc bld gluc mntr dev cleared fda spec home use [facility] Work Phone: Start: 09-14-2019 Gluc bld gluc mntr dev cleared fda spec home use Mojgan Ulricha Work Phone: Start: 09-14-2019 BASIC METABOLIC PANEL W/ REFLEX TO MG FOR LOW K Shea Aguilar Work Phone: Start: 09-14-2019 Blood count complete automated Shea Aguilar Work Phone: Start: 09-13-2019 Gluc bld gluc mntr dev cleared fda spec home use Mojgan Fishhta Work Phone: Start: 09-13-2019 Gluc bld gluc mntr dev cleared fda spec home use Shea Aguilar Work Phone: Start: 09-13-2019 Gluc bld gluc mntr dev cleared fda spec home use Shea Aguilar Work Phone: Start: 09-13-2019 Gluc bld gluc mntr dev cleared fda spec home use Mojgan Ivy Work Phone: Start: 09-13-2019 Assay of magnesium Shea Aguilar Work Phone: Start: 09-13-2019 BASIC METABOLIC PANEL W/ REFLEX TO MG FOR LOW K Shea Aguilar Work Phone: Start: 09-13-2019 Blood count complete automated Shea Aguilar Work Phone: Start: 09-12-2019 Gluc bld gluc mntr dev cleared fda spec home use Mojgan Fishhta Work Phone: Start: 09-12-2019 Culture bacterial quanttative colony count urine [employer] Work Phone: Start: 09-12-2019 Urnls dip stick/tablet rgnt auto w/o microscopy [employer] Work Phone: Start: 09-12-2019 COVID-19 Mojgan Ivy Work Phone: Start: 09-12-2019 Assay of troponin quantitative Mo[facility]gan [facility] Work Phone: Start: 09-12-2019 Blood count complete auto&auto difrntl wbc Mo[facility]gan [facility] Work Phone: Start: 09-12-2019 Comprehensive metabolic panel Mo[facility]gan [facility] Work Phone: Start: 09-12-2019 Creatine kinase total Mo[facility]gan [facility] Work Phone: Start: 09-12-2019 Fibrin dgradj products d-dimer quantitative [employer] [employer] Work Phone: Start: 09-12-2019 Natriuretic peptide [facility] Work Phone: Start: 09-12-2019 Ecg routine ecg w/least 12 lds w/i&r Mojgan Ivy Work Phone: Start: 09-02-2019 Ct cervical spine w/o contrast material Tyler R Aidan Work Phone: Start: 09-02-2019 Ct head/brain w/o contrast material Tyler R Aidan Work Phone: Start: 09-02-2019 Ct maxillofacial w/o contrast material Tyler R Aidan Work Phone: Start: 12-04-2018 Gluc bld gluc mntr dev cleared fda spec home use [employer] Work Phone: Start: 12-04-2018 Gluc bld gluc mntr dev cleared fda spec home use [employer] Work Phone: Start: 12-04-2018 Blood count complete automated [employer] Work Phone: Start: 12-04-2018 Comprehensive metabolic panel [employer] Work Phone: Start: 12-03-2018 Gluc bld gluc mntr dev cleared fda spec home use [employer] Work Phone: Start: 12-03-2018 Gluc bld gluc mntr dev cleared fda spec home use Man Hardin Work Phone: Start: 12-03-2018 Gluc bld gluc mntr dev cleared fda spec home use Praneeth Rosa Work Phone: Start: 12-03-2018 Iadna-dna/rna gi pthgn multiplex probe tq 12-25 Man Hardin Work Phone: Start: 12-03-2018 Gluc bld gluc mntr dev cleared fda spec home use Praneeth Rosa Work Phone: Start: 12-03-2018 Basic metabolic panel calcium total Shea HorneSykiosherly Work Phone: Start: 12-03-2018 Blood count complete automated Shea [employer] Work Phone: Start: 12-02-2018 Gluc bld gluc mntr dev cleared fda spec home use Praneeth Rosa Work Phone: Start: 12-02-2018 Gluc bld gluc mntr dev cleared fda spec home use Praneeth Rosa Work Phone: Start: 12-02-2018 Basic metabolic panel calcium total Shea Aguilar Work Phone: Start: 12-02-2018 Gluc bld gluc mntr dev cleared fda spec home use Praneeth Rosa Work Phone: Start: 12-02-2018 Gluc bld gluc mntr dev cleared fda spec home use Praneeth Rosa Work Phone: Start: 12-01-2018 Gluc bld gluc mntr dev cleared fda spec home use Praneeth Rosa Work Phone: Start: 12-01-2018 Sodium serum plasma or whole blood Gene Meléndez Work Phone: Start: 12-01-2018 Gluc bld gluc mntr dev cleared fda spec home use Praneeth Rosa Work Phone: Start: 12-01-2018 Gluc bld gluc mntr dev cleared fda spec home use Man Hardin Work Phone: Start: 12-01-2018 Assay of lactate Man Hardin Work Phone: Start: 12-01-2018 BASIC METABOLIC PANEL W/ REFLEX TO MG FOR LOW K Man Hardin Work Phone: Start: 12-01-2018 Blood count complete auto&auto difrntl wbc Man Hardin Work Phone: Start: 12-01-2018 Hemoglobin glycosylated a1c Man Hardin Work Phone: Start: 11-30-2018 Iaad ia mult step method nos each organism Man GallegosAlaMarka Work Phone: Start: 11-30-2018 STREP PNEUMONIAE ANTIGEN Man Hardin Work Phone: Start: 11-30-2018 Assay of lactate Man GallegosAlaMarka Work Phone: Start: 11-30-2018 Procalcitonin (pct) Man Hardin Work Phone: Start: 11-30-2018 ADD ON LAB TEST Man Hardin Work Phone: Start: 11-30-2018 Radex abd compl aqt abd w/s/e/d views 1 view ch Man Hardin Work Phone: Start: 11-30-2018 Iadna respiratry probe & rev trnscr 12-25 target Man Hardin Work Phone: Start: 11-30-2018 Assay of lactate Man Hardin [employer]ER Phone: Start: 11-30-2018 End: 11-30-2018 Culture bacterial blood aerobic w/id isolates Nurys Mukherjee Work Phone: Start: 11-30-2018 ADD ON LAB TEST Nurys Mukherjee [employer] Phone: Start: 11-30-2018 Assay of lactate Nurys Mukherjee Work Phone: Start: 11-30-2018 Assay of lipase Nurys Mukherjee Work Phone: Start: 11-30-2018 Assay of troponin quantitative Nurys Mukherjee Work Phone: Start: 11-30-2018 Basic metabolic panel calcium total Nurys Mukherjee Work Phone: Start: 11-30-2018 Blood count complete auto&auto difrntl wbc Nurys Mukherjee Work Phone: Start: 11-30-2018 Hepatic function panel Nurys Mukherjee Work Phone: Start: 11-30-2018 Natriuretic peptide Nurys Mukherjee Work Phone: Start: 11-30-2018 Radiologic exam chest single view Nurys Mukherjee Work Phone: Start: 11-30-2018 Ecg routine ecg w/least 12 lds w/i&r Nurys Mukherjee Work Phone: Start: 11-30-2018 Urnls dip stick/tablet rgnt auto w/o microscopy Nurys Mukherjee Work Phone: Start: 05-21-2018 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 Favian Trevizo MD PhD Work Phone: Start: 06-10-2011 CONVERTED SURGICAL PATHOLOGY Kelle Sim Work Phone: None (qualifier value) DENY COYLE SENIOR BRANCH MANAGER-DIALYSIS CHIEF EQUIPMENT TECHNICIAN Plan of Treatment Date Care Activity Detail Author Start: 09-01-2029 DTaP/Tdap/Td vaccine (4 - Td or Tdap) DTaP/Tdap/Td vaccine (4 - Td or Tdap) SUSAN Work Phone: Start: 09-01-2029 DTaP/Tdap/Td vaccine (4 - Td) DTaP/Tdap/Td vaccine (4 - Td) [place] Start: 01-18-2028 DTaP/Tdap/Td vaccine (3 - Td) DTaP/Tdap/Td vaccine (3 - Td) [place] Start: 11-20-2026 Colon cancer screen colonoscopy Colon cancer screen colonoscopy [place] Start: 11-20-2026 Screening for malignant neoplasm of colon Colon cancer screen colonoscopy [place] Start: 11-17-2022 Blood chemistry [facility] Start: 11-16-2022 Blood chemistry [facility] Start: 11-15-2022 Blood chemistry [facility] Start: 11-14-2022 Blood chemistry [facility] Start: 11-13-2022 Blood chemistry [facility] Start: 11-12-2022 Blood chemistry [facility] Start: 11-11-2022 Patient discharge [facility] Start: 11-08-2022 Aspiration precautions [facility] Start: 11-08-2022 Assessment of risk of venous thromboembolism [facility] Start: 11-08-2022 Care regimes [facility] Start: 11-08-2022 Fall prevention [facility] Start: 11-08-2022 Inhalation therapy procedure [facility] Start: 11-08-2022 Insertion of catheter into peripheral vein [facility] Start: 11-08-2022 Introduction of urinary catheter [facility] Start: 11-08-2022 Measuring intake and output [facility] Start: 11-08-2022 Notification of physician [facility] Start: 11-08-2022 Providing care according to standard [facility] Start: 11-08-2022 Provision of activity privileges [facility] Start: 11-08-2022 Referral to occupational therapist [facility] Start: 11-08-2022 Referral to service [facility] Start: 11-08-2022 Verification routine [facility] Start: 11-08-2022 End: 11-08-2022 [facility] Start: 11-08-2022 Admission procedure [facility] Start: 11-08-2022 Coronavirus COVID-19 PCR Coronavirus COVID-19 PCR [facility] Start: 11-08-2022 Emergency department visit high/urgent severity EMERGENCY DEPT VISIT MOD MDM [facility] Start: 11-08-2022 Ther proph/dx njx iv push single/1st sbst/drug THER/PROPH/DIAG INJ IV PUSH [facility] Start: 11-08-2022 Troponin I measurement [facility] Start: 10-03-2022 [facility] Start: 10-03-2022 Incentive spirometry [facility] Start: 02-01-2022 Creatinine measurement Creatinine monitoring [facility] Work Phone: Start: 02-01-2022 Potassium monitoring Potassium monitoring [facility] Work Phone: Start: 01-31-2022 Lipid panel Lipid screen [facility] Work Phone: Start: 12-05-2021 COVID-19 Vaccine (1) COVID-19 Vaccine (1) [facility] Work Phone: Comment on above: Postponed from 1961 (Patient Refus ed) Start: 11-10-2021 Diabetic foot examination Diabetic foot exam [facility] Work Phone: Start: 10-04-2021 Creatinine measurement Creatinine monitoring [facility] Work Phone: Start: 10-04-2021 Potassium monitoring Potassium monitoring [facility] Work Phone: Start: 10-01-2021 Lipid panel Lipid screen [facility] Work Phone: Start: 09-30-2021 Hemoglobin A1c measurement A1C test (Diabetic or Prediabetic) [facility] Work Phone: Start: 09-22-2021 Annual Wellness Visit (AWV) Annual Wellness Visit (AWV) [facility] Work Phone: Start: 06-13-2021 End: 06-13-2021 Patient encounter procedure 06/13/2021 Office Visit Dermatology Kelle Nolasco SENIOR BRANCH MANAGER - DIALYSIS CHIEF EQUIPMENT TECHNICIAN 1 [facility] [address] [place], [place] [id number] [facility] Start: 05-12-2021 Diabetic retinal exam Diabetic retinal exam [facility] Work Phone: Start: 05-12-2021 End: 05-12-2021 Patient encounter procedure 05/12/2021 Office Visit Ophthalmology Judy Reyes MD [address] [place] [address] [address] [place], [place] [id number] [facility] Ophthalmology Start: 02-16-2021 End: 02-16-2021 Patient encounter procedure 02/16/2021 Office Visit Neurology Brandy Mckinley SENIOR BRANCH MANAGER - DIALYSIS CHIEF EQUIPMENT TECHNICIAN [address] [place] [address] [phone] [facility] Neurology [place] Start: 02-11-2021 End: 02-11-2021 Patient encounter procedure 02/11/2021 Office Visit Family Medicine Favian Trevizo MD PhD [address] [place] [address] [phone] [facility] Start: 02-09-2021 End: 02-09-2021 Patient encounter procedure 02/09/2021 Office Visit Orthopedic Surgery Ebony Nguyen DPM [address] [place] [address] [phone] [facility] Orthopedics and Sports Medicine [place] Start: 01-20-2021 End: 01-20-2021 Nursing evaluation of patient and report 01/20/2021 Nurse Only Family Medicine [facility] Start: 01-19-2021 End: 01-19-2021 Patient encounter procedure 01/19/2021 Office Visit Otolaryngology Asif Negron MD [address] [place] [address] [phone] [facility] Start: 01-12-2021 End: 01-12-2021 Patient encounter procedure 01/12/2021 Office Visit Orthopedic Surgery Ebony Nguyen DPM [address] [place] [address] [facility] Orthopedics and Sports Medicine [place] Start: 01-11-2021 End: 01-11-2021 Patient encounter procedure 01/11/2021 Appointment Neurology Geo Ruvalcaba MD [address] [place], [place] [id number] [facility] Start: 01-07-2021 End: 01-07-2021 Patient encounter procedure 01/07/2021 Office Visit Neurology Brandy Mckinley, SENIOR BRANCH MANAGER - DIALYSIS CHIEF EQUIPMENT TECHNICIAN [address] [place] [address] [facility] Neurology [place] Start: 12-01-2020 Influenza vaccination Flu vaccine (#1) [facility] Work Phone: Start: 10-19-2020 HbA1c (Bld) [Mass fraction] A1C test (Diabetic or Prediabetic) [facility] [place] Start: 10-19-2020 Lipid panel Lipid screen [place] Start: 09-15-2020 Creatinine measurement Creatinine monitoring [facility] [place] Start: 09-15-2020 Potassium monitoring Potassium monitoring [place] Start: 05-12-2020 End: 05-12-2020 Office Visit 05/12/2020 Office Visit Ophthalmology Judy Reyes MD [address] [place] [phone] [facility] Ophthalmology Start: 05-07-2020 Diabetic retinal exam Diabetic retinal exam [facility] [place] Start: 04-07-2020 End: 04-07-2020 Office Visit 04/07/2020 Office Visit Family Medicine Favian Trevizo MD PhD [address] [place], [place] [id number] [facility] Start: 03-13-2020 Diabetic foot examination Diabetic foot exam [facility] [place] Start: 03-13-2020 HbA1c (Bld) [Mass fraction] A1C test (Diabetic or Prediabetic) [facility] [place] Start: 01-20-2020 End: 01-20-2020 Office Visit 01/20/2020 Office Visit Family Medicine Favian Trevizo MD PhD [address] [place] [address] [phone] [facility] Family Medicine Start: 01-10-2020 Annual Wellness Visit (AWV) Annual Wellness Visit (AWV) [facility] [place] Start: 12-05-2019 Creatinine measurement Creatinine monitoring [facility] , [place] Start: 12-05-2019 Creatinine monitoring Creatinine monitoring [facility] [place] Start: 12-05-2019 Potassium monitoring Potassium monitoring [place] Start: 12-02-2019 A1C test (Diabetic or Prediabetic) A1C test (Diabetic or Prediabetic) [place] Start: 12-02-2019 Influenza vaccination Flu vaccine (#1) [place] Start: 10-20-2019 End: 10-20-2019 Office Visit 10/20/2019 Office Visit Family Medicine Favian Trevizo MD PhD [address] [place] [address] [phone] [facility] Start: 09-25-2019 End: 09-25-2019 Office Visit 09/25/2019 Office Visit Family Medicine Favian Trevizo MD PhD [address] [place] [address] [phone] [facility] Start: 09-18-2019 End: 09-18-2019 Office Visit 09/18/2019 Office Visit Family Favian Aiken MD PhD [address] [place] [address] [phone] [facility] Start: 05-23-2019 Diabetic retinal exam Diabetic retinal exam [place], [place] Start: 05-07-2019 End: 05-07-2019 Office Visit 05/07/2019 Office Visit Ophthalmology Judy Reyes MD [address] [place] [address] [phone] [facility] Ophthalmology Start: 02-14-2019 [object Object] Diabetic foot exam [place] Start: 01-31-2019 Influenza vaccination Flu vaccine (#1) [place] Comment on above: Postponed from 12/01/2018 (Patient Refus ed) Start: 01-09-2019 End: 01-09-2019 Office Visit 01/09/2019 Office Visit Family Favian Aiken MD PhD [address] [place] [address] [phone] [facility] Start: 10-16-2018 Diabetic microalbuminuria test Diabetic microalbuminuria test [place] Start: 10-16-2018 Lipid panel Lip[place] Start: 10-16-2018 Lipid screen [place] Start: 09-17-2018 Annual Wellness Visit (AWV) Annual Wellness Visit (AWV) [place] Start: 2012 Annual Wellness Visit (AWV) Annual Wellness Visit (AWV) [place] Start: 09-06-1999 Shingles Vaccine (1 of 2) Shingles Vaccine (1 of 2) [place], [place] Start: 1950 Hepatitis C screen Hepatitis C screen [place], [place] Start: 1950 Hepatitis C screening Hepatitis C screen [place] End: 11-30-2018 Bacteria identified Respiratory culture Nom (Sput) Sputum culture Microbiology Routine One Time for 1 Occurrences starting 11/30/2018 until 11/30/2018 [place] Comment on above: One Time for 1 Occurrences starting 11/02 until 11/30/2018 End: 09-17-2019 Basic Metabolic Panel w/ Reflex to MG Basic Metabolic Panel w/ Reflex to MG Lab Routine Daily for 5 Occurrences starting 09/13/2019 until 09/17/2019, 4 completed [place] Comment on above: Daily for 5 Occurrences starting 020 until 09/17/2019, 4 completed Basic Metabolic Pane l w/ Reflex to MG Basic Metabolic Panel w/ Reflex to MG Lab Routine Daily until discontinued starting 02/01/2021, 1 completed [facility] Work Phone: Comment on above: Daily until discontinued starting 2020, 1 completed End: 09-17-2019 CBC CBC Lab Routine Daily for 5 Occurrences starting 09/13/2019 until 09/17/2019, 4 completed [place] Comment on above: Daily for 5 Occurrences starting 020 until 09/17/2019, 4 completed CBC W Auto Different ial panel - Blood CBC Auto Differential Lab Routine Daily until discontinued starting 02/01/2021, 1 completed [facility] Work Phone: Comment on above: Daily until discontinued starting 2020, 1 completed End: 01-06-2020 COVID-19 COVID-19 Lab Routine One Time for 1 Occurrences starting 01/06/2020 until 01/06/2020 [place] Comment on above: One Time for 1 Occurrences starting 09/2019 until 01/06/2020 COVID-19 COVID-19 Lab STA T 01/06/2020 8:13 PM EDT [place] Culture Blood #1 Culture Blood # 1 Microbiology STAT 11/30/2018 12:25 PM EDT [place] Culture Blood #2 Culture Blood # 2 Microbiology STAT 11/30/2018 12:55 PM EDT [place] End: 09-14-2019 Free T4 [Mass/Vol] T4, Free Lab Add-On One Time for 1 Occurrences starting 09/14/2019 until 09/14/2019 [place] Comment on above: One Time for 1 Occurrences starting 08/31 until 09/14/2019 End: 01-30-2021 Glucose [Mass/volume] in Serum or Plasma POCT Glucose Point of Care Testing STAT One Time for 1 Occurrences starting 01/30/2021 until 01/30/2021 [facility] Work Phone: Comment on above: One Time for 1 Occurrences starting 01/02 until 01/30/2021 HHN Treatment HHN Treatment Respiratory Care Routine Every 4hr while awake until discontinued starting 11/30/2018 [place] Comment on above: Every 4hr while awake until discontinued starting 11/30/2018 End: 12-04-2018 Home O2 eval (desaturation screen) Home O2 eval (desaturation screen) Respiratory Care Routine One Time for 1 Occurrences starting 12/04/2018 until 12/04/2018 [place] Comment on above: One Time for 1 Occurrences starting 07/2018 until 12/04/2018 Incentive spirometry RT Incentiv e spirometry RT Respiratory Care Routine Every 2hr while awake until discontinued starting 11/30/2018 [place] Comment on above: Every 2hr while awake until discontinued starting 11/30/2018 Initiate Oxygen Ther apy Protocol [place] Comment on above: Daily until discontinued starting 2018 Daily until disconti nued starting 09/12/2019 End: 11-30-2018 Microscopic observation Gram stain Nom (Unsp spec) Gram Stain Microbiology Routine Once for 1 Occurrences starting 11/30/2018 until 11/30/2018 [facility] [place] Comment on above: Once for 1 Occurrences starting 12/01/19 19 until 11/30/2018 End: 09-12-2019 Miscellaneous Sendout 1 Miscellaneous Sendout 1 Lab Routine One Time for 1 Occurrences starting 09/12/2019 until 09/12/2019 [facility] Comment on above: One Time for 1 Occurrences starting 08/31 until 09/12/2019 Oxygen therapy [[facility] Data Set] [facility] Work Phone: Comment on above: Daily until discontinued starting 2020 Daily until disconti nued starting 01/31/2021 Patient Education [facility] Work Phone: Patient referral [facility] Work Phone: POCT glucose [facility] [place] Su Comment on above: 4X Daily (AC & HS) until discontinued st arting 12/01/2018 As Needed until disc ontinued starting 12/01/2018 As Needed until disc ontinued starting 09/12/2019 Respiratory pathogen s DNA and RNA panel - Respiratory specimen by LILLIAN with probe detection [facility] End: 11-30-2018 Sputum induction Sputum induction Respiratory Care Routine One Time for 1 Occurrences starting 11/30/2018 until 11/30/2018 [facility] Comment on above: One Time for 1 Occurrences starting 11/02 until 11/30/2018 Immunizations Immunization Date Immunization Notes Care Provider Fa mario 10-03-2022 tetanus toxoid, redu agustina diphtheria toxoid, and acellular pertussis vaccine, adsorbed [facility] 04-07-2020 Influenza, High-dose , Quadv, 65 yrs +, IM (Fluzone) Favian Trevizo MD PhD Work Phone: [facility] Work Phone: 09-02-2019 diphtheria, tetanus toxoids and acellular pertussis vaccine, unspecified formulation Tyler Bermudez [facility] [place] 09-02-2019 tetanus toxoid, redu agustina diphtheria toxoid, and acellular pertussis vaccine, adsorbed Tyler [facility] 01-09-2019 influenza, high dose seasonal, preservative-free [facility] 01-17-2018 tetanus toxoid, redu agustina diphtheria toxoid, and acellular pertussis vaccine, adsorbed [facility] 10-16-2017 pneumococcal polysaccharide vaccine, 23 valent [facility] [place] 08-10-2016 pneumococcal conjuga te vaccine, 13 valent [facility] [place] 07-22-2012 pneumococcal polysaccharide vaccine, 23 valent [facility] 05-27-2007 tetanus toxoid, redu agustina diphtheria toxoid, and acellular pertussis vaccine, adsorbed [facility] [place] 08-31-1992 Td, unspecified formulation [facility] Payers Date Payer Category Payer Unknown [id number] 2023 Medicare [id number] 2023 Self-pay 2023 Unknown [id number] 2023 Unknown [id number] 2020 Medicare AETNA MEDICARE A ETNA MEDICARE ADVANTAGE [facility] [id number] 2020-Present [address] [place] [address] Medicare [id number] 2020 Medicare AETNA MEDICARE A ETNA MEDICARE ASSURE HMO D SNP [id number] 2020-Present [phone] [address] [place] [address] Medicare [id number] 2016 Medicare [id number] 2016 Medicare BCBS MEDICARE AN THEM MEDIBLUE ESSENTIAL/PLUS xxxxxxxxxxxx 2016-Present [address] [address] [place] [address] xxxxxxxxxxxx [id number] 2013 Medicaid MEDICAID [facility] MEDICAID [id number] 2013-Present [phone] [address] [place] [address] Medicaid [id number] 2005 Unknown [facility] [id number] 2005-2014 O [id number] Unknown [id number] Unknown [id number] Unknown [id number] Unknown [id number] Unknown [id number] Unknown [id number] Unknown [id number] Social History Date Type Detail Facility Start: 12-03-2018 End: 02-14-2021 Tobacco smoking status NHIS Former smoker [facility] End: 04-02-1982 History of tobacco use Current [place] End: 04-02-1982 History of tobacco use Cigarette [place] Start: 12-03-2018 End: 01-31-2021 Cigarettes smoked current (pack per day) - Reported Cristiana Maloney [place] [facility] Start: 12-03-2018 Alcohol intake [facility] Start: 06-14-2018 History SDOH Food Worry 1 [facility] Start: 11-20-2016 Tobacco Comment quit 34 years ago Me neida Maloney [place] Start: 08-17-2015 Alcohol Comment no alcohol in 3 year s Cristiana Maloney [place] Start: 1950 Sex Assigned At [facility] Start: 09-02-2019 End: 01-31-2021 Alcohol intake Current [facility]dr[facility] [place] Exposure to SARS-CoV -2 (event) Unable to assess [facility] Start: 12-17-2019 End: 01-31-2021 Tobacco use and exposure Never used [facility] Exposure to SARS-CoV -2 (event) Not sure [facility] Start: 02-11-2020 Alcohol Comment no alcohol in 8 year s [facility] Start: 09-30-2020 Tobacco Comment quit 37 years ago [facility] Work Phone: Start: 02-14-2021 Alcohol intake Ex-drinker (finding) [facility] Start: 1950 Sex Assigned At Male A [facility] Tobacco smoking status No Smokin g Status Entered [facility] Start: 10-03-2022 End: 11-08-2022 Tobacco smoking status COIS Unknown if ever smoked [facility] Medical Equipment Procedure Code Equipment Code Equipment Origin al Text Equipment Identifier Dates USE DIRECTED TO TEST BLOOD SUGAR 3 TIMES DAILY [id number] Start: 08-20-2018 1 each by In Vit ro route 3 times daily As needed. [id number] Start: 08-20-2018 1 each by In Vit ro route 3 times daily As needed. [id number] Start: 01-09-2019 TEST BLOOD SUGAR 3 TIMES DAILY [id number] Start: 09-09-2019 TEST BLOOD SUGAR 3 TIMES A DAY. [id number] Start: 10-07-2020 1 each by In Vit ro route 3 times daily As needed. [id number] Start: 10-28-2020 Goals Date Patient Goal Desired Activity /State Functional Status Date Assessment Result Facility 11-11-2022 Functional status Ambulates [facility] Work Phone: Mental Status Date Assessment Result Facility 11-11-2022 Cognitive function Voice/Name [facility] Work Phone: 11-08-2022 Cognitive function Voice/Name [facility] Work Phone: 11-08-2022 Cognitive function Level Of Cons ciousness Awake;Alert;Appropriate [facility] Work Phone: 10-03-2022 Cognitive function Level Of Cons ciousness Awake;Alert [facility] Work Phone: Clinical Notes 10-07-2020 to 11-12-2023 Note Date & Type Note Facility 11-12-2023 Note [facility] Medical Records Department [address] [place] [id number] Discharge Summary 11/12/23 1343 MR#: [id number] Acct: [id number] Name: SHOLA MARTINEZ Demarco Rep #: [id number] : 1950 73 From: Deniz Cooper DO PCP: TARI Edwards Status:ADM IN Location: [facility] [id number] Providers Date of Admission: 11/08/23 Date of Discharge: 11/12/23 Primary Care Physician: TARI Edwards Consultations 11/08/23 16:02 Consult: Urology Routine Consulting Provider: Kaushik Bryant Reason for Consult: urinary spasm, urine retention EMERGENT Consult: No MD Notified: Yes Date Notified: 11/08/23 Time Notified: 16:02 Method of Notification: Verbal Reason For Visit: COMPLICATED UTI PNA Diagnosis Discharge Diagnosis (1) Urinary tract infection: Status: Acute Code(s): N39.0 - Urinary tract infection, site not specified (2) Pneumonia: Status: Acute Code(s): J18.9 - Pneumonia, unspecified organism (3) Acidosis, lactic: Status: Acute Code(s): E87.20 - Acidosis, unspecified Medications at Discharge Home Medications atorvastatin 80 mg tablet 80 mg PO QHS cholesterol 11/08/22 cetirizine 5 mg tablet 5 mg PO QHS allergies 11/08/22 cholecalciferol (vitamin D3) 125 mcg (5,000 unit) tablet (Vitamin D3) 5,000 unit PO QWEEK vitamin 11/08/22 clopidogrel 75 mg tablet 75 mg PO DAILY anti platelet 11/08/22 icosapent ethyl 1 gram capsule (Vascepa) 2 g PO BID triglycerides 11/08/22 isosorbide mononitrate 30 mg tablet,extended release 24 hr 30 mg PO DAILY heart 11/08/22 linagliptin 5 mg tablet (Tradjenta) 5 mg PO DAILY diabetes 11/08/22 losartan 25 mg tablet 25 mg PO DAILY blood pressure 11/08/22 melatonin 5 mg tablet 5 mg PO QHS sleep 11/08/22 metformin 500 mg tablet 500 mg PO BID diabetes 11/08/22 montelukast 10 mg tablet 10 mg PO QHS allergies 11/08/22 polyethylene glycol 3350 17 gram/dose oral powder (Gavilax) 17 g PO .EVERY OTHER DAY constipation 11/08/22 tamsulosin 0.4 mg capsule 0.8 mg PO DAILY prostate 11/08/22 finasteride 5 mg tablet 5 mg PO DAILY #0 tabs 11/12/23 Hospital Course Operations None Procedures EKG, Modified Barium Swallow and - (Chest x-ray, renal ultrasound, CT abdomen pelvis) Summary of Care Provided Minutes Spent on Discharge: 35 Hospital Course: Patient is a 73-year-old male who presented to [facility] ED on 11/08/2023 with fevers and nausea/vomiting. Hospital course as noted below. Patient discharged to SNF at [facility] in stable condition on 11/11. 1. Acute complicated UTI with urinary retention, history of BPH with obstructive symptoms ??? Urology followed. Met SIRS criteria on admission with mild tachycardia, tachypnea, fever to 101F and mild lactic acidosis but there was no endorgan damage show sepsis was ruled out. Urine culture grew 50-80 K Klebsiella pneumonia. Completed 5-day course of IV ceftriaxone while inpatient. Had some degree of urinary retention during hospitalization requiring Knight catheter placement, however Knight was removed prior to discharge and patient was urinating on his own without issue. Continue home Flomax and finasteride. 2. Acute on chronic debility ??? PT/OT/case management followed. Patient stable for discharge to SNF on 11/11. 3. Moderate oropharyngeal dysphagia ??? Speech therapy followed. Presented with nausea/vomiting and concern for some degree of aspiration pneumonia. He then appeared to have some aspiration while here and was made NPO. Modified barium swallow study done on 11/08 showed moderate oropharyngeal dysphagia. Patient did show improvement during hospitalization. Recommendation on discharge is for easy to chew diet with thin liquids and meds and whole applesauce, with small bites, small sips and one-to-one close supervision. 4. Concern for pneumonia ??? Chest x-ray on admit showed concern for possible pneumonia in setting of nausea/vomiting with aspiration as noted above. Pneumonia workup was negative. Completed 5-day course of IV ceftriaxone as noted above. Stable on room air on discharge. Chronic medical conditions: ??? Obesity: BMI 33 on admit. Complicated hospital course, care and prognosis. ??? COPD with allergic rhinitis: Stable on room air, not in acute exacerbation. Continue home meds. ??? Former tobacco use: Encouraged continued cessation. ??? Hypertension: Continue home isosorbide mononitrate and losartan. ??? Hyperlipidemia: Continue home meds. ??? Type 2 diabetes mellitus: Blood sugars stable while inpatient. Continue home metformin and Tradjenta on discharge. ??? Chronic thrombocytopenia: Platelets stable around 110 during hospitalization. Total clinical time spent by myself addressing the patient's medical issues, reviewing all the data, and collaborating with patient's care team: 35 minutes. Physical Exam Const alert and no apparent (more content not included)... [facility] 11-11-2022 Discharge summary Note Date/Time November 11, 2022 11:48am [facility] Medical Records Department [address] [place] [address] Discharge Summary 11/11/22 1147 MR#: [id number] Acct: [id number] Name: SHOLA MARTINEZ Rep #[id number] : 1950 72 From: Tanika Kunz MD PCP: MASON EdwardsC Status: ADM MEL Location: [place] [address] Providers Date of Admission: 11/08/22 Date of Discharge: 11/11/22 Primary Care Physician: TARI Edwards Reason For Visit: ADULT FTT, FUO Diagnosis Discharge Diagnosis (1) Adult failure to thrive: Status: Acute Code(s): R62.7 - Adult failure to thrive Plan #Fever of unknown origin with adult failure to thrive * covid and flu tests were negative. Blood and urine cultures pending * CXR showed no evidence of infiltrate * PT/OT On board * fall precautions * #Hypertension: on losartan and imdur. #Hyperlipidemia: on statin #Type 2 diabetes mellitus: on ISS> Accuhecks ACHS # COPD: Not in exacerbation. Breathing treatment with bronchodilators #Elevated bilirubin: * Total bilirubin was 2.9 on admission and trended up to 3.7 * AST, ALT and ALP are all within normal limits. Etiology is unclear. * Will get a right upper quadrant ultrasound to evaluate. #Thrombocytopenia: Platelets were 107 on admission and trended downards; are 88 today. Hold lovenox and continue to trend. DVT prophylaxis:SCDs. DC lovenox o/a of thrombocytopenia Disposition: Deemed to need further therapy. Case management on board to help with placement. Medications at Discharge Home Medications atorvastatin 80 mg tablet 80 mg PO QHS cholesterol 11/08/22 cetirizine 5 mg tablet 5 mg PO QHS allergies 11/08/22 cholecalciferol (vitamin D3) 125 mcg (5,000 unit) tablet (Vitamin D3) 5,000 unitPO QWEEK vitamin 11/08/22 clopidogrel 75 mg tablet 75 mg PO DAILY anti platelet 11/08/22 icosapent ethyl 1 gram capsule (Vascepa) 2 g PO BID triglycerides 11/08/22 isosorbide mononitrate 30 mg tablet,extended release 24 hr 30 mg PO DAILY heart 11/08/22 linagliptin 5 mg tablet (Tradjenta) 5 mg PO DAILY diabetes 11/08/22 losartan 25 mg tablet 25 mg PO DAILY blood pressure 11/08/22 melatonin 5 mg tablet 5 mg PO QHS sleep 11/08/22 metformin 500 mg tablet 500 mg PO BID diabetes 11/08/22 montelukast 10 mg tablet 10 mg PO QHS allergies 11/08/22 polyethylene glycol 3350 17 gram/dose oral powder (Gavilax) 17 g PO .EVERY OTHERDAY constipation 11/08/22 tamsulosin 0.4 mg capsule 0.8 mg PO DAILY prostate 11/08/22 Hospital Course Operations None Summary of Care Provided Minutes Spent on Discharge: 47 Hospital Course: Patient is a 72 y/o male with a PMH as outlined who was admitted via the ED on 11/08/2022 with a complaint of nausea and dizziness as well as increased fatigue and malaise. He had an onset of vertigo or lightheadedness. He had been getting weaker in his assisted living facility after he had had a recent COVID illness. Review of systems otherwise negative. Labs were essentially unremarkable. Influenza and COVID test were negative. Urine tox showed no evidence of UTI. He was admitted and managed for debility and failure to thrive as well as fever of unknown origin. Fever resolved and patient felt much better. Chestx-ray showed no evidence of infiltrate. His bilirubin was mildly elevated on admission but subsequently trended downwards. He did have a right upper quadrant ultrasound which showed hepatic steatosis but no other acute findings and he had a surgically absent gallbladder. He did have a right renal cysts forwhich follow-up was not indicated based on guidelines according to CAT scan reviewed. Patient remained stable and was worked with physical therapy. He wasdischarged back to assisted living facility on 11/11/2022. He is follow-up with his primary care doctor within 1 to 2 weeks. Patient seen and examined prior to discharge. He had no complaints and wanted to be discharged. Review of systems otherwise negative. Labs and vitals reviewed. Home medication reviewed and reconciled. Physical Exam Const alert, oriented x3 and no apparent distress General Appearance: cooperative, comfortable and well kempt HEENT normocephalic, head/scalp atraumatic, hearing grossly normal bilaterally, moist oral mucous membranes and oropharynx normal Neck no lymphadenopathy, supple and no JVD Lymph Lymphatic: no lymphadenopathy noted and no lymphedema noted Resp Resp Narrative: mildly diminished breath sounds bibasally, no wheezes or crackles. On room air. Cardio regular rate, regular rhythm, S1 normal heart sound, S2 normal heart sound and no murmurs GI normal to inspection, nondistended, normoactive bowel sounds, soft to palpation,non-tender and non-distended Extremity full ROM, normal capillary refill, no clubbing, cyanosis or edema and no calf tenderness Skin no rashes or lesions noted General Skin Exam: no breakdown and turgor normal Neuro oriented x3, CN's II-XII intact bilaterally, moves all extremities, no focal motor deficits, no sensory deficits noted and deep tendon reflexes 2+ bilaterally Sensorium / Orientation: awake Motor Exam: strength 5/5 throughout Psych thought process normal and cooperative Weight / BMI Weight Weight: 264 lb 8.875 oz Body Mass Index (BMI) 34.0 ABG / Lab / Microbiology Data 11/11/22 06:28 11/11/22 06:28 Laboratory: Laboratory Results - last 24 hr 11/10/22 05:20: Total Bilirubin 2.70 H, Direct Bilirubin 0.19, AST 42 H, ALT 32,Alkaline Phosphatase 82, Total Protein 5.6 L, Albumin 2.6 L, Globulin 3.0 11/10/22 11:23: POC Glucose 261 H 11/10/22 17:31: POC Glucose 173 H 11/10/22 21:28: POC Glucose 260 H 11/11/22 05:54: POC Glucose 207 H 11/11/22 06:28: WBC 6.3, RBC 4.41 L, Hgb 13.6, Hct 38.9 L, MCV 88.2, MCH 30.8, MCHC 35.0, RDW Std Deviation 37.6, RDW Coeff of Gage 11.7, Plt Count 100 L, MPV 9.4, Immature Gran % (Auto) 0.300, Neut % (Auto) 69.9, Lymph % (Auto) 18.4 L, Telfair % (Auto) 9.8, Eos % (Auto) 1.3, Baso % (Auto) 0.3, Absolute Neuts (auto) 4.4, Absolute Lymphs (auto) 1.16, Nucleated RBC % 0, Sodium 134 L, Potassium 3.7, Chloride 104, Carbon Dioxide 25.0, Anion Gap 5, BUN 10, Creatinine 0.90, Estim Creat Clear Calc 84.99, Est GFR (MDRD) Af Amer 107, Est GFR (MDRD) Non-Af 88, BUN/Creatinine Ratio 11.1, Glucose 210 H, Calcium 8.1 L 11/11/22 08:58: POC Glucose 233 H 11/11/22 10:56: POC Glucose 236 H Microbiology: Microbiology 11/08/22 20:00 Mucosa - Nasopharyngeal Coronavirus COVID-19 PCR - Final 11/08/22 17:04 Nasal Secretion SARS-CoV-2 & FLU Antigen (Rapid) - Final Radiography Diagnostic Testing: Radiology Impression Gallbladder Ultrasound 11/10/22 11:30 IMPRESSION: 1. No acute findings. 2. Hepatic steatosis. 3. Right renal cyst. Follow-up is not indicated per ACR guidelines. Electronically Signed: Dee Jeff MD at 18:57 EDT Reading Location ID and State: [id number] / Tel , Service support , D/C Instructions Discharge Diet: Low fat / Low cholesterol and 1800 Calorie Control Diet Weight Bearing Status: Weight bearing as tolerated Call your doctor if you observe: Fever of 101 or Higher, Shortness of breath andSwelling in the ankles Meaningful Use Info Meaningful Use Diagnoses (Choose all that apply): None applicable Discharge Plan Admission Admit Date/Time: 11/08/22 19:56 Primary Reason for Your Visit: adult failure to thrive Attending Provider: Tanika Kunz Primary Care Provider: Jessica Alvarez BANANA GRADER Consulting Providers: Bridgett Villagomez Instructions Patient Instructions: ED Weakness (Uncertain Cause) Discharge Orders/Prescriptions Prescriptions: Continued atorvastatin 80 mg tablet 80 mg PO QHS cetirizine 5 mg tablet 5 mg PO QHS Patient Comments: 1 TABLET BY MOUTH ATIBEDTIME DX: / NURSE TO REORDER clopidogrel 75 mg tablet 75 mg PO DAILY isosorbide mononitrate 30 mg tablet extended release 24 hr 30 mg PO DAILY losartan 25 mg tablet 25 mg PO DAILY melatonin 5 mg tablet 5 mg PO QHS metformin 500 mg tablet 500 mg PO BID montelukast 10 mg tablet 10 mg PO QHS polyethylene glycol 3350 [Gavilax] 17 gram/dose powder 17 g PO .EVERY OTHER DAY Patient Comments: 17 GRAMS DISSOLVED INILIQUID EVERY OTHER DAY FOR CONSTIPATION HOLD FOR DIARRHEA, CALL MD IF NO BM IN 24 HRS tamsulosin 0.4 mg capsule 0.8 mg PO DAILY Tradjenta 5 mg tablet 5 mg PO DAILY icosapent ethyl [Vascepa] 1 gram capsule 2 g PO BID cholecalciferol (vitamin D3) [Vitamin D3] 125 mcg (5,000 unit) tablet 5,000 unit PO QWEEK Referrals / Follow Up: Jessica Alvarez NP, BANANA GRADER-C [Primary Care Provider] - Within 2 Weeks Disposition Disposition (needs filled in before D/C Order can be placed): Assisted Living Charges/Coding Visit Charges Inpatient E&M: 99886 Disch Hosp >30min 11/11/22 1432 <Electronically signed by Tanika Kunz MD> Cosigner Signature (if applicable): CC: BANANA GRADER-C Jessica Alvarez; Dr. Tanika Kunz MD~ Signed [facility] Work Phone: 1(321) 397-282508-12-2023 Discharge summary Author Tanika [facility] November 11, 2022 11:47am Note Date/Time November 11, 2022 11 :48am [facility] Medical Records Department [address] [place] [address] Instructions for Home/Discharge Instructions 11/11/22 1147 MR#: [id number] Acct: [id number] Name: SHOLA MARTINEZ Rep #:[id number] : 1950 72 From: Tanika Kunz MD PCP: TARI Edwards Status: ADM MEL Discharge Instructions Diet Discharge Diet: Low fat / Low cholesterol and 1800 Calorie Control Diet Activity Discharge Activity: Return to Normal Activity Weight Bearing Status: Weight bearing as tolerated Dressing / Incision Call your doctor if you observe: Fever of 101 or Higher, Shortness of breath andSwelling in the ankles Follow Up Care Test Results: Test results from this visit will be discussed in further detail at your follow- up appointment, if applicable. Discharge Plan Admission Admit Date/Time: 11/08/22 19:56 Primary Reason for Your Visit: adult failure to thrive Attending Provider: Tanika Kunz Primary Care Provider: Jessica Alvarez NP Consulting Providers: Bridgett Villagomez Instructions Patient Instructions: ED Weakness (Uncertain Cause) Discharge Orders/Prescriptions Prescriptions: Continued atorvastatin 80 mg tablet 80 mg PO QHS cetirizine 5 mg tablet 5 mg PO QHS Patient Comments: 1 TABLET BY MOUTH ATIBEDTIME DX: / NURSE TO REORDER clopidogrel 75 mg tablet 75 mg PO DAILY isosorbide mononitrate 30 mg tablet extended release 24 hr 30 mg PO DAILY losartan 25 mg tablet 25 mg PO DAILY melatonin 5 mg tablet 5 mg PO QHS metformin 500 mg tablet 500 mg PO BID montelukast 10 mg tablet 10 mg PO QHS polyethylene glycol 3350 [Gavilax] 17 gram/dose powder 17 g PO .EVERY OTHER DAY Patient Comments: 17 GRAMS DISSOLVED INILIQUID EVERY OTHER DAY FOR CONSTIPATION HOLD FOR DIARRHEA, CALL MD IF NO BM IN 24 HRS tamsulosin 0.4 mg capsule 0.8 mg PO DAILY Tradjenta 5 mg tablet 5 mg PO DAILY icosapent ethyl [Vascepa] 1 gram capsule 2 g PO BID cholecalciferol (vitamin D3) [Vitamin D3] 125 mcg (5,000 unit) tablet 5,000 unit PO QWEEK Referrals / Follow Up: Jessica Alvarez NP, BANANA GRADER-C [Primary Care Provider] - Within 2 Weeks Disposition Disposition (needs filled in before D/C Order can be placed): Assisted Living 11/11/22 1147<Electronically signed by Tanika Kunz MD>Tanika Kunz MD CC: BANANA GRADER-C Jessica Alvarez; Dr. Bridgett Villagomez MD ~ Signed [facility] Work Phone: 1(297) 982-591408-11-2023 Progress note Author [facility] November 10, 2022 1:35pm Note Date/Time November 10, 2022 11 :24[facility] Medical Records Department [address] [place] [address] Progress Note 11/10/22 1123 MR#: [id number] Acct: [id number] Name: SHOLA MARTINEZ Demarco Rep #:[id number] : 1950 72 From: Tanika Kunz MD PCP: TARI Edwards Status: ADM MEL Location: [place] [address] Subjective Subjective Patient seen and examined. He had no active complaints today and had an uneventful night. Review of systems is otherwise negative. He has remained hemodynamcially stable. Objective Data Objective Data Vital Signs: Vital Signs Temp Pulse Resp BP Pulse Ox O2 Del Method 97.5 F L 65 16 123/63 H 97 Room Air 11/10/22 10:18 11/10/22 10:18 11/10/22 10:18 11/10/22 10:18 11/10/22 10:18 11/10/22 10:18 Oxygen Delivery Method Room Air Weight: 268 lb 8.368 oz Body Mass Index (BMI) 34.4 Intake & Output: Intake and Output for Last 24 Hours 11/08/22 11/09/22 11/10/22 23:59 23:59 23:59 Intake Total 120 / 120 1553.33 / 1553.33 240 / 240 Output Total 1974 375 / 375 Balance 120 / 120 -421.67 / -421.67 -135 / -135 Lab / Micro Data 11/10/22 05:20 11/10/22 05:20 Labs: Laboratory Results - last 24 hr 11/09/22 16:12: POC Glucose 231 H 11/09/22 21:56: POC Glucose 261 H 11/10/22 05:20: WBC 5.4, RBC 4.46 L, Hgb 13.5, Hct 39.7 L, MCV 89.0, MCH 30.3, MCHC 34.0, RDW Std Deviation 38.1, RDW Coeff of Gage 11.9, Plt Count 88 L, MPV 10.1, Immature Gran % (Auto) 0.400, Neut % (Auto) 63.7, Lymph % (Auto) 24.0, [place] % (Auto) 8.7, Eos % (Auto) 2.6, Baso % (Auto) 0.6, Absolute Neuts (auto) 3.4, Absolute Lymphs (auto) 1.29, Nucleated RBC % 0, Platelet Estimate MOD DEC, Sodium 132 L, Potassium 4.3, Chloride 106, Carbon Dioxide 21.0, Anion Gap 5, BUN11, Creatinine 0.92, Estim Creat Clear Calc 83.14, Est GFR (MDRD) Af Amer 103, Est GFR (MDRD) Non-Af 86, BUN/Creatinine Ratio 11.9, Glucose 225 H, Calcium 7.9 L 11/10/22 06:30: POC Glucose 214 H Micro: Microbiology 11/08/22 20:00 Mucosa - Nasopharyngeal Coronavirus COVID-19 PCR - Final 11/08/22 17:04 Nasal Secretion SARS-CoV-2 & FLU Antigen (Rapid) - Final Physical Exam Const alert, oriented x3 and no apparent distress General Appearance: cooperative HEENT normocephalic, head/scalp atraumatic, moist oral mucous membranes and oropharynxnormal Neck no lymphadenopathy, supple and no JVD Lymph Lymphatic: no lymphadenopathy noted and no lymphedema noted Resp Resp Narrative: mildly diminished breath sounds bibasally, no wheezes or crackles. On room air. Cardio regular rate, regular rhythm, S1 normal heart sound, S2 normal heart sound and no murmurs GI normal to inspection, nondistended, normoactive bowel sounds, soft to palpation,non-tender and non-distended Extremity normal capillary refill, no clubbing, cyanosis or edema and no calf tenderness Skin General Skin Exam: no breakdown and turgor normal Neuro CN's II-XII intact bilaterally, no focal motor deficits, no sensory deficits noted and deep tendon reflexes 2+ bilaterally Psych thought process normal and cooperative Assessment & Plan Assessment/Plan (1) Adult failure to thrive: PLAN: Plan #Fever of unknown origin with adult failure to thrive * covid and flu tests were negative. Blood and urine cultures pending * CXR showed no evidence of infiltrate * PT/OT On board * fall precautions * #Hypertension: on losartan and imdur. #Hyperlipidemia: on statin #Type 2 diabetes mellitus: on ISS> Accuhecks ACHS # COPD: Not in exacerbation. Breathing treatment with bronchodilators #Elevated bilirubin: * Total bilirubin was 2.9 on admission and trended up to 3.7 * AST, ALT and ALP are all within normal limits. Etiology is unclear. * Will get a right upper quadrant ultrasound to evaluate. #Thrombocytopenia: Platelets were 107 on admission and trended downards; are 88 today. Hold lovenox and continue to trend. DVT prophylaxis:SCDs. DC lovenox o/a of thrombocytopenia Disposition: Deemed to need further therapy. Case management on board to help with placement. Charges/Coding Visit Charges Inpatient E&M: 18001 Subs Hosp L2 11/10/22 1335 <Electronically signed by Tanika Kunz MD> Tanika Kunz MD Cosigner Signature (if applicable): CC: ~ Signed [facility] Work Phone: 1(809) 868-246308-10-2023 Progress note Author Tanika [facility] November 09, 2022 3:31pm Note Date/Time November 09, 2022 12 :12pm [facility] Medical Records Department [address] [place] [address] Progress Note 11/09/22 1210 MR#: [id number] Acct: [id number] Name: SHOLA MARTINEZ Rep #:[id number] : 1950 72 From: Tanika Kunz MD PCP: Jessica Alvarez, BANANA GRADER-C Status: ADM MEL Location: [place] [address] Subjective Subjective Patient seen and examined. He had no active complaints. He denied any fever, chills, cough, chest pain, palpitations, dizziness, nausea, vomiting or any other symptoms. Review of systems is otherwise negative. Objective Data Objective Data Vital Signs: Vital Signs Temp Pulse Resp BP Pulse Ox O2 Del Method 98.9 F 66 18 121/49 H 99 Room Air 11/09/22 09:00 11/09/22 09:00 11/09/22 09:00 11/09/22 09:00 11/09/22 09:00 11/09/22 09:00 Oxygen Delivery Method Room Air Weight: 268 lb 4.841 oz Body Mass Index (BMI) 34.4 Intake & Output: Intake and Output for Last 24 Hours 11/07/22 11/08/22 11/09/22 23:59 23:59 23:59 Intake Total 120 / 120 963.33 / 963.33 Output Total 800 / 800 Balance 120 / 120 163.33 / 163.33 Lab / Micro Data 11/09/22 06:03 11/09/22 06:03 Labs: Laboratory Results - last 24 hr 11/08/22 20:06: Procalcitonin 0.06 11/08/22 21:52: POC Glucose 196 H 11/09/22 06:03: WBC 4.8, RBC 4.52 L, Hgb 13.9, Hct 40.5, MCV 89.6, MCH 30.8, MCHC 34.3, RDW Std Deviation 38.2, RDW Coeff of Gage 11.8, Plt Count 101 L, MPV 9.3, Immature Gran % (Auto) 0.400, Neut % (Auto) 71.7 H, Lymph % (Auto) 17.7 L, [place] % (Auto) 8.1, Eos % (Auto) 1.3, Baso % (Auto) 0.8, Absolute Neuts (auto) 3.4, Absolute Lymphs (auto) 0.85, Nucleated RBC % 0, Sodium 135 L, Potassium 3.8, Chloride 104, Carbon Dioxide 25.0, Anion Gap 6, BUN 9, Creatinine 0.97, Estim Creat Clear Calc 78.86, Est GFR (MDRD) Af Amer 98, Est GFR (MDRD) Non-Af 81, BUN/Creatinine Ratio 9.3 L, Glucose 187 H, Calcium 7.8 L, Total Bilirubin 3.70 H, AST 21, ALT 32, Alkaline Phosphatase 86, Total Protein 5.6 L, Albumin 2.8 L, Globulin 2.8, Albumin/Globulin Ratio 1.0 11/09/22 06:27: POC Glucose 210 H 11/09/22 10:53: POC Glucose 274 H Micro: Microbiology 11/08/22 20:00 Mucosa - Nasopharyngeal Coronavirus COVID-19 PCR - Final 11/08/22 17:04 Nasal Secretion SARS-CoV-2 & FLU Antigen (Rapid) - Final Radiography Diagnostic Testing: Radiology Impression Chest X-Ray 11/08/22 17:08 IMPRESSION: No definite acute or significant abnormality seen. Electronically Signed: Vicente Mullins MD at 17:19 EDT , Chest X-Ray 11/09/22 05:55 IMPRESSION: No evidence of acute cardiopulmonary disease. Electronically Signed: Shola Toribio DO at 6:30 EDT , Physical Exam Const alert, oriented x3 and no apparent distress General Appearance: cooperative HEENT normocephalic, head/scalp atraumatic, moist oral mucous membranes and oropharynxnormal Neck no lymphadenopathy, supple and no JVD Lymph Lymphatic: no lymphadenopathy noted and no lymphedema noted Resp Resp Narrative: mildly diminished breath sounds bibasally, no wheezes or crackles. On room air. Cardio regular rate, regular rhythm, S1 normal heart sound, S2 normal heart sound and no murmurs GI normal to inspection, nondistended, normoactive bowel sounds, soft to palpation,non-tender and non-distended Extremity normal capillary refill, no clubbing, cyanosis or edema and no calf tenderness Skin General Skin Exam: no breakdown and turgor normal Neuro CN's II-XII intact bilaterally, no focal motor deficits, no sensory deficits noted and deep tendon reflexes 2+ bilaterally Psych thought process normal and cooperative Assessment & Plan Assessment/Plan (1) Adult failure to thrive: PLAN: Plan #Fever of unknown origin with adult failure to thrive * covid and flu tests were negative. Blood and urine cultures pending * CXR showed no evidence of infiltrate * PT/OT On board * fall precautions * #Hypertension: on losartan and imdur. #Hyperlipidemia: on statin #TYpe 2 diabetes mellitus: on ISS> Accuhecks ACHS # COPD: Not in exacerbation. Breathing better smoker diabetes. #Elevated bilirubin: Total bilirubin was 2.9 on admission and is now up to 3.7. AST, ALT and ALP are all within normal limits. Etiology is unclear. Will get [facility] upper quadrant ultrasound to evaluate. #Thrombocytopenia: Platelets were 107 on admission and now down to 101. Again etiology is not very clear. WBC and CBC are within normal limits. Will monitor. DVT prophylaxis: Lovenox Charges/Coding Visit Charges Inpatient E&M: 51866 Subs Hosp L2 11/09/22 1531 <Electronically signed by Tanika Kunz MD> Tanika Kunz MD Cosigner Signature (if applicable): CC: ~ Signed [facility] Work Phone: [phone]) [phone] Discharge summary Author Yifan Meza [facility] November 08, 2022 9:06pm Note Date/Time November 08, 2022 5:3 3pm [facility] Medical Records Department [address] [place] [address] Emergency Department Summary 11/08/22 MR#: [id number] Acct: [id number] Name: SHOLA MARTINEZ Rep #:[id number] : 1950 72 From: Yifan Meza DO PCP: TARI Edwards Status: ADM MEL Location: [place] [address] HPI History of Present Illness Chief Complaint: General Illness Narrative Narrative: 72-year-old male presenting with nausea and generalized weakness. He was seen earlier today for similar symptoms. He had lab work done which showed a little bit of hyperglycemia but was otherwise normal. He was treated with Zofran and IV fluids. Today returns with a fever and return of his nausea. He denies chest pain or shortness of breath. He does have a cough. He denies abdominal pain. No urinary complaints. [facility] Medical History (Updated 11/08/22 @ 20:[address] Bridgett Villagomez MD) Allergic rhinitis BPH (benign prostatic hyperplasia) CKD (chronic kidney disease), stage II COPD (chronic obstructive pulmonary disease) Diabetes Former tobacco use HTN (hypertension) Hyperlipemia Obesity Home Medications atorvastatin 80 mg tablet 80 mg PO QHS 11/08/22 [History Last Taken Unknown] cetirizine 5 mg tablet 5 mg PO QHS 11/08/22 [History Last Taken Unknown] cholecalciferol (vitamin D3) 125 mcg (5,000 unit) tablet (Vitamin D3) 5,000 unitPO QWEEK 11/08/22 [History Last Taken Unknown] clopidogrel 75 mg tablet 75 mg PO .PO 11/08/22 [History Last Taken Unknown] icosapent ethyl 1 gram capsule (Vascepa) 2 g PO BID 11/08/22 [History Last Taken Unknown] isosorbide mononitrate 30 mg tablet,extended release 24 hr 30 mg PO DAILY 11/08/22 [History Last Taken Unknown] linagliptin 5 mg tablet (Tradjenta) 5 mg PO DAILY 11/08/22 [History Last Taken Unknown] losartan 25 mg tablet 25 mg PO DAILY 11/08/22 [History Last Taken Unknown] melatonin 5 mg tablet 5 mg PO QHS 11/08/22 [History Last Taken Unknown] metformin 500 mg tablet 500 mg PO BID 11/08/22 [History Last Taken Unknown] montelukast 10 mg tablet 10 mg PO QHS 11/08/22 [History Last Taken Unknown] polyethylene glycol 3350 17 gram/dose oral powder (Gavilax) 17 g PO .EVERY OTHERDAY 11/08/22 [History Last Taken Unknown] tamsulosin 0.4 mg capsule 0.8 mg PO DAILY 11/08/22 [History Last Taken Unknown] Allergy/AdvReac Type Severity Reaction Status Date / Time No Known Allergies Allergy Verified 11/08/22 17:01 Family History (Updated 11/08/22 @ 20:[address] Bridgett Villagomez MD) Mother Diabetes Cancer Father Diabetes Cancer Surgical History History of herniorrhaphy Hx of appendectomy Hx of cholecystectomy Social History (Updated 11/08/22 @ 20:[address] Bridgett Villagomez MD) housing: assisted living facility Smoking Status: Former smoker alcohol intake: never substance use type: does not use ROS ROS ED Constitutional Constitutional ED: Reports chills and fever(s); Denies sweats Eyes Eyes: Denies blurry vision or change in vision ENT ENT ED: Denies ear pain or sore throat Cardiovascular Cardiovascular: Denies chest pain, palpitations or racing heartbeat Respiratory/Chest Respiratory/Chest: Denies cough, dyspnea or sputum Gastrointestinal Gastrointestinal: Reports nausea; Denies abdominal pain, constipation, diarrhea or vomiting Genitourinary Genitourinary ED: Denies dysuria, hematuria or urinary frequency Musculoskeletal Musculoskeletal: Denies arthralgias, myalgias or neck pain Integumentary Denies abscess, Abrasions or rash Neurologic Neurologic: Denies headache(s), paresthesias or weakness Psychiatric Psychiatric: Denies anxiety, depression, suicidal ideation or suicidal thoughts Endocrine Endocrinology: Denies polydipsia or polyuria EXAM Physical Exam Const Vital Signs: 11/08/22 16:55 11/08/22 16:59 11/08/22 17:02 Temperature 100.1 F H Temperature Source Oral Pulse Rate 95 93 Respiratory Rate 18 18 Respiratory Pattern Tachypnea Blood Pressure 142/74 H 118/72 Blood Pressure Mean 96 87 Pulse Ox 97 95 Oxygen Delivery Method Room Air Room Air 11/08/22 19:00 Temperature 99.8 F H Temperature Source Oral Pulse Rate 72 Respiratory Rate 20 H Respiratory Pattern Blood Pressure 124/55 H Blood Pressure Mean 78 Pulse Ox 93 Oxygen Delivery Method Room Air Positive well nourished General Appearance ED: NAD HEENT Reports moist mucous membranes Eyes PERRL and EOMs intact bilaterally Chest Wall inspection of chest normal Resp normal respiratory effort Auscultation: Negative for rales, rhonchi or wheezes Cardio regular rate and regular rhythm GI normal to inspection, nondistended, normoactive bowel sounds Extremity General Extremety ED: Negative for edema or tenderness General Extremity: Negative for edema Neuro oriented x3 and CN's II-XII intact bilaterally Sensorium / Orientation: alert Motor Exam: general weakness Psych mental status grossly normal Skin no rashes or lesions noted and no wounds MDM MDM MDM Narrative Medical decision making narrative: I reviewed the patient's blood work from earlier today is all normal with exception of hyperglycemia. Patient was given IV fluids and Zofran. Apparently his nausea came back and he is developed a fever now his temperature is 100.1. I will obtain a chest x-ray because this was not done earlier and I will also get a COVID/flu swab. She given a gram of Tylenol for his fever. He is given oral Zofran. COVID and flu are negative. Chest x-ray my interpretation shows no acute process. I suspect he likely has something viral. On reevaluation hisnausea is improved but he request to stay in the hospital because he does not feel right he has one half to come back. I discussed with the hospitalist and he is admitted for observation. Impression: 1. Nausea/vomiting 2. Acute febrile illness Radiography Diagnostic Testing: Clinical Impression(s) from Imaging Studies Chest X-Ray 11/08/22 17:08 IMPRESSION: No definite acute or significant abnormality seen. Electronically Signed: Vicente Mullins MD at 17:19 EDT , Discharge Plan Disposition Disposition: Acute Care Hospital [facility] Discharge Date/Time: 11/08/22 20:33 What to do if you have Problems For any increased pain, shortness of breath, bleeding, nausea or vomiting, chestpain, or any unexpected problems, contact your Primary Care Provider. Call [facility] ([phone]) or report to the closest Emergency Room. Call 911 if necessary. 11/08/222105 <Electronically signed by Yifan Meza DO> Cosigner Signature (if applicable): CC: TARI Alvarez ~ Signed [facility] Work Phone: 1(263) 760-294008-09-2023 History and physical note Author Bridgett Villagomez [facility] November 08, 2022 8:37pm Note Date/Time November 08, 2022 7:4 6pm [facility] Medical Records Department [address] [place] [address] H&P Exam - Hospitalist 11/08/221943 MR#: [id number] Acct: [id number] Name: SHOLA MARTINEZ Rep #:[id number] : 1950 72 From: Bridgett Villagomez MD PCP: Jessica Alvarez, [employer]NANA GRADER-C Status: ADM MEL Location: [place] [address] HPI - General General Date of Admission: 11/08/22 Date of Service: 11/08/22 Chief Complaint: Fatigue, malaise, nausea, fever. HPI Narrative The patient is a 72 y/o M w/ PMHx: Former Tobacco use, HTN, HLD, BPH, Diabetes mellitus type II, COPD, CKD possibly stage II based on current labs, Obesity, HxCOVID illness, recent ED evaluation earlier in the AM on day of presentation with transition from assisted living secondary to mild nausea as well as dizziness with no vertigo nor any lightheadedness nor any recent fevers or chills but increased fatigue and malaise normally able to transfer himself out of the wheelchair but has been more weak with history of unfortunately being wheelchair-bound following a COVID illness. Patient denies any abdominal pain, diarrhea, dysuria but has had mildly decreased appetite. Patient notes feeling improved since his evaluation again in the ED now but is very afraid of returning to his facility as he had difficulty caring for himself safely as it is assisted living only. He denies any specific illness in people around him but states that often he is by himself frequently but of several people intermittently have been ill but he is unsure from what. Discussed the fact that he is listed as both on aspirin and Plavix and he denies any history of stroke or any coronary disease or peripheral artery disease or stents or specifically TIA. Workup in the ED included initially T1 100.1 with most recentrepeat T 99.8, heart rate 95 initially with most recent repeat 72, BP initially 142/74 with most recent repeat 04/25/1954, initially respiratory rate 1897% on room air now respiratory rate 20, 93% on room air, chest x-ray with no acute cardiopulmonary finding, SARS COVID and influenza antigen rapid negative, labs obtained earlier in the morning with CBC with WBC 11, hemoglobin 15, platelet 107 with left shift and lymphopenia, CMP with sodium 134, glucose 244, T. bili 2.90, AST/ALT 25/42, alk phos 115, hepatic profile otherwise unremarkable, troponin 9, urinalysis with specific gravity 1.020, glucose 1000, ketone 5, occult blood 25, negative nitrite, leukocyte Estrace 25 with no urine WBCs or RBCs or bacteria and of note anion gap 11, EKG at that time with sinus rhythm with no acute evidence of ischemia. In the ED patient ministered Tylenol as well as Zofran 4 mg p.o. x 1. [facility] Medical History (Updated 11/08/22 @ 20:[address] Bridgett Villagomez MD) Allergic rhinitis BPH (benign prostatic hyperplasia) CKD (chronic kidney disease), stage II COPD (chronic obstructive pulmonary disease) Diabetes Former tobacco use HTN (hypertension) Hyperlipemia Obesity Home Medications atorvastatin 80 mg tablet 80 mg PO QHS 11/08/22 [History Last Taken Unknown] cetirizine 5 mg tablet 5 mg PO QHS 11/08/22 [History Last Taken Unknown] cholecalciferol (vitamin D3) 125 mcg (5,000 unit) tablet (Vitamin D3) 5,000 unitPO QWEEK 11/08/22 [History Last Taken Unknown] clopidogrel 75 mg tablet 75 mg PO .PO 11/08/22 [History Last Taken Unknown] icosapent ethyl 1 gram capsule (Vascepa) 2 g PO BID 11/08/22 [History Last Taken Unknown] isosorbide mononitrate 30 mg tablet,extended release 24 hr 30 mg PO DAILY 11/08/22 [History Last Taken Unknown] linagliptin 5 mg tablet (Tradjenta) 5 mg PO DAILY 11/08/22 [History Last Taken Unknown] losartan 25 mg tablet 25 mg PO DAILY 11/08/22 [History Last Taken Unknown] melatonin 5 mg tablet 5 mg PO QHS 11/08/22 [History Last Taken Unknown] metformin 500 mg tablet 500 mg PO BID 11/08/22 [History Last Taken Unknown] montelukast 10 mg tablet 10 mg PO QHS 11/08/22 [History Last Taken Unknown] polyethylene glycol 3350 17 gram/dose oral powder (Gavilax) 17 g PO .EVERY OTHERDAY 11/08/22 [History Last Taken Unknown] tamsulosin 0.4 mg capsule 0.8 mg PO DAILY 11/08/22 [History Last Taken Unknown] Allergy/AdvReac Type Severity Reaction Status Date / Time No Known Allergies Allergy Verified 11/08/22 17:01 Family History (Updated 11/08/22 @ 20:[address] Bridgett Villaogmez MD) Mother Diabetes Cancer Father Diabetes Cancer Surgical History History of herniorrhaphy Hx of appendectomy Hx of cholecystectomy Social History (Updated 11/08/22 @ 20:[address] Bridgett Villagomez MD) housing: assisted living facility Smoking Status: Former smoker alcohol intake: never substance use type: does not use ROS ROS Narrative Admission Review of Systems: CONSTITUTIONAL: No weight loss, + fever, chills, weakness or fatigue. HEENT: Eyes: No visual loss, blurred vision, double vision or yellow sclerae. Ears, Nose, Throat: No hearing loss, sneezing, congestion, runny nose or sore throat. SKIN: No rash or itching, lesions, wounds. CARDIOVASCULAR: No chest pain, chest pressure or chest discomfort, palpitations,edema, orthopnea, syncopal events. RESPIRATORY: No shortness of breath, cough or sputum, wheezing, hemoptysis. GASTROINTESTINAL: + anorexia, nausea. No vomiting or diarrhea, abdominal pain, melena, BRBPR. GENITOURINARY: No dysuria, frequency, urgency or retention. NEUROLOGICAL: + Debility, requires wheelchair chronically, No headache, dizziness, syncope, paralysis, ataxia, numbness or tingling in the extremities, focal weakness, change in bowel or bladder control, seizure. MUSCULOSKELETAL: + muscle, back pain, joint pain or stiffness. HEMATOLOGIC: + Easy bleeding or bruising. LYMPHATICS: No enlarged nodes. No history of splenectomy. PSYCHIATRIC: No history of depression or anxiety. ENDOCRINOLOGIC: No reports of sweating, cold or heat intolerance. No polyuria orpolydipsia. ALLERGIES: + history of rhinitis. Vital Signs Vital Signs Vital Signs: 11/08/22 16:55 11/08/22 16:59 11/08/22 17:02 Temperature 100.1 F H Temperature Source Oral Pulse Rate 95 93 Respiratory Rate 18 18 Respiratory Pattern Tachypnea Blood Pressure 142/74 H 118/72 Blood Pressure Mean 96 87 Pulse Ox 97 95 Oxygen Delivery Method Room Air Room Air 11/08/22 19:00 Temperature 99.8 F H Temperature Source Oral Pulse Rate 72 Respiratory Rate 20 H Respiratory Pattern Blood Pressure 124/55 H Blood Pressure Mean 78 Pulse Ox 93 Oxygen Delivery Method Room Air Weight Weight: 278 lb 0.046 oz Body Mass Index (BMI) 35.6 Physical Exam Narrative Physical Examination: General: Awake, alert, oriented x 3 and cooperative, seated upright in the ED bed in no apparent distress. Skin: Normal color, normal turgor, no icterus, no cyanosis. HEENT: AT/NC, EOMI, PERRLA, mildly dry MM, no carotid bruits or JVD noted; however, thickened neck makes evaluation difficult. Lungs: Mildly diminished, greater bases, appropriate effort, no rales, ronchi orwheezing. Heart: Regular rate and rhythm; no gallop, rub audible. Abdomen: Soft, obese, NTTP, no obvious distention, mildly hyperactive BS, no appreciated HSM. Extremities: No cyanosis, clubbing, or edema. Neurological: Patient awake, alert, oriented as noted, cognitive function intact; pupils equally reactive to light and accommodation, cranial nerves grossly normal, moving all 4 extremities, no focal deficits, strength moderatelyto severely globally decreased secondary to acute presentation complaints compounded by underlying chronic debility, normally mostly wheelchair-bound secondary to debilities and weaknesses following COVID illness prior. Psychiatric: Affect appears fatigued otherwise normal, no acute evidence of depressive or anxiety feelings. Results Lab / Micro Data Micro: Microbiology 11/08/22 17:04 Nasal Secretion SARS-CoV-2 & FLU Antigen (Rapid) - Final Radiology Impression Chest X-Ray 11/08/22 17:08 IMPRESSION: No definite acute or significant abnormality seen. Electronically Signed: Vicente Mullins MD at 17:19 EDT , Assessment & Plan Assessment/Plan (1) Adult failure to thrive: PLAN: Plan The patient is a 72 y/o M w/ PMHx: Former Tobacco use, HTN, HLD, BPH, Diabetes mellitus type II, COPD, CKD possibly stage II based on current labs, Obesity, HxCOVID illness, recent ED evaluation earlier in the AM on day of presentation with transition from assisted living secondary to mild nausea as well as dizziness with no vertigo nor any lightheadedness nor any recent fevers or chills but increased fatigue and malaise normally able to transfer himself out of the wheelchair but has been more weak with history of unfortunately being wheelchair-bound following a COVID illness. #1. Fatigue, malaise, FUO with associated Adult FTT: Given repeat ED evaluation, concerns for ability for patient to safely care for self in the AL setting, unclear etiology for his fever, will admit to [facility], awaiting COVID PCR and full respiratory viral panel initiated in the ED, procalcitonin requested, continued judicious hydration and will plan repeat CXR in AM to assure no development of infiltrate, will maintain on fall and aspiration precautions, PT/OT/case management consulted for discharge planning as patient potentially could need transition from assisted to skilled setting. #2. Hypertension: Continue home regimen including isosorbide, losartan with hold parameters as needed, PRN hydralazine. #3. Hyperlipidemia: Continue home statin regimen. #4. Diabetes mellitus type II: Hold oral home regimen, ADA diet, accu checks w/ISS. #5. Thrombocytopenia, unclear chronicity: Admission platelet earlier in the cev121, no comparison available, potentially related to acute illness presentation,will continue to trend CBC. #6. BPH: We will continue patient home Flomax regimen. #7. Chronic COPD with allergic rhinitis: Not on any chronic regimen per currentlist but clarifying, PRN albuterol, HOB, IS parameters, continue patient home cetirizine and montelukast regimen. #8. Chronic Kidney Disease Stage II per current labs but unclear specific stage: Admission BUN/Cr 01/31.06, baseline renal function unclear but facility does report chronic kidney disease and they are listed diagnoses, repeat BMP in AM. #9. Obesity: Weight loss and lifestyle changes encouraged. #10. Former tobacco use: Encourage continued tobacco cessation. #11. Isolated hyperbilirubinemia: AM labs during prior ED evaluation with T. bili 2.90 however AST/ALT normal 25/42 and alk phos 115 with no abdominal pain, will continue treatment and evaluation as noted, repeat CMP in AM. #12. DVT prophylaxis: Lovenox. #13. CODE STATUS: DNR-CCA, no intubation per facility paperwork. Charges/Coding Visit Charges Inpatient E&M: 79006 Init Hosp L2 11/08/222036 <Electronically signed by Bridgett Villagomez MD> Cosigner Signature (if applicable): CC: [employer]NANA [employer]ADER-C Jessica Alvarez; Dr. Bridgett Villagomez MD~ Signed [facility] Work Phone: 1([phone]) 167-416508-09-2023 Discharge summary Author Jann Hoffmann [facility] November 08, 2022 10:56am Note Date/Time November 08, 2022 8:4 6am [facility] Medical Records Department [address] [place] [address] Emergency Department Summary 11/08/22 MR#: [id number] Acct: [id number] Name: SHOLA MARTINEZ Rep #:[id number] : 1950 72 From: Jann Hoffmann MD PCP: TARI Edwards Status: REG ER Location: ED HPI History of Present Illness Chief Complaint: General Illness Narrative Narrative: Patient presents with nausea and generalized weakness from assisted living?independent living facility. He is wheelchair-bound post COVID, he normally is able to get up to his wheelchair and transfer himself however he hasbeen a bit weak today he also had some nausea. Chief complaint says dizziness but patient does not feel vertiginous does not feel off balance and does not feel lightheaded. No recent fevers or chills. Patient is denying abdominal pain. There is no diarrhea. There is no urinary symptoms. He is denying any chest pain or difficulty breathing. No headaches. [facility] Medical History (Updated 11/08/22 @ 10:[address] Jann Hoffmann MD) BPH (benign prostatic hyperplasia) Diabetes HTN (hypertension) Hyperlipemia Muscle weakness Allergy/AdvReac Type Severity Reaction Status Date / Time No Known Allergies Allergy Verified 11/08/22 08:31 Surgical History History of herniorrhaphy Hx of appendectomy Hx of cholecystectomy Social History Smoking Status: Current every day smoker tobacco type: cigarettes ROS ROS ED ROS Narrative Past medical history: Reviewed Medications: Reviewed Social history: Noncontributory Review of systems: All systems negative except as indicated General: No fever. Generalized weakness as in HPI Eyes: No visual changes ENT: No upper airway congestion, normal voice Neck: No neck pain Cardiovascular: No chest pain Respiratory: No shortness of breath or cough Gastrointestinal: No abdominal pain, no diarrhea. There is some nausea but no vomiting. Genitourinary: No dysuria Musculoskeletal: No muscle aches. No trauma no falls. Chronic bilateral lower extremity weakness. Skin: No rash Neurological: No memory loss, confusion or any focal weakness EXAM Physical Exam Narrative Exam Narrative: Physical exam General: Patient appears chronically ill he does not appear in any distress currently. Head: Normocephalic, Atraumatic Eyes: Conjunctiva not pale ENT: Quite dry mucous membranes Neck: Supple, Nontender, No lymphadenopathy Cardiovascular: Regular rate, Regular rhythm Respiratory: No distress, CTA bilaterally Abdomen: Soft, Nontender, Nondistended : Normal external genitalia without any signs of infection Back: Nontender, Normal Inspection. Negative for: CVA tenderness Extremities: Nontender, No edema Skin: Normal color, No rash Neurological: Alert, Normal Strength, Normal Sensation Const Vital Signs: 11/08/22 08:31 11/08/22 08:40 Temperature 97.9 F Temperature Source Temporal Pulse Rate 87 Respiratory Rate 14 Respiratory Pattern Normal Blood Pressure 140/69 H Blood Pressure Mean 92 Pulse Ox 97 Oxygen Delivery Method Room Air MDM MDM MDM Narrative Medical decision making narrative: Patient had some nausea, this improved. He also appeared dehydrated and he was given IV fluids with significant improvement in his symptoms. I reevaluated him, he does not have any more nausea, he feels improved and he feels like his energy is back. I believe this is the cause of most of his symptoms. I talked to him about hospitalization but he wants to be discharged which is reasonable. There is some elevation of the bilirubin however there is no elevation of transaminases or alk phos, this can be worked up outpatient. Because he does not have any abdominal pain I do not believe emergent imaging like ultrasound orCT of the abdomen is needed. He has been eating quite a bit over the weekend since apparently he was given some good food and he is found to be hyperglycemic, he can control this at home, I talked to him about glycemic control and how the increased blood sugar can cause dehydration. He understandsthese. If anything changes patient is to return. Lab Data Labs: Laboratory Results - last 24 hr 11/08/22 11/08/22 09:00 10:01 WBC 11.0 RBC 4.88 Hgb 15.0 Hct 42.9 MCV 87.9 MCH 30.7 MCHC 35.0 RDW Std Deviation 38.0 RDW Coeff of Gage 11.9 Plt Count 107 L MPV 9.6 Immature Gran % (Auto) 0.500 Neut % (Auto) 88.3 H Lymph % (Auto) 5.4 L [place] % (Auto) 4.8 Eos % (Auto) 0.8 Baso % (Auto) 0.2 Absolute Neuts (auto) 9.7 H Absolute Lymphs (auto) 0.60 L Nucleated RBC % 0 Differential Comment SCANNED Sodium 134 L Potassium 3.9 Chloride 100 Carbon Dioxide 23.0 Anion Gap 11 BUN 11 Creatinine 1.06 Estim Creat Clear Calc 72.16 Est GFR (MDRD) Af Amer 88 Est GFR (MDRD) Non-Af 73 BUN/Creatinine Ratio 10.4 Glucose 244 H Calcium 8.3 L Total Bilirubin 2.90 H AST 25 ALT 42 Alkaline Phosphatase 115 Troponin I High Sens 9 Total Protein 6.4 Albumin 3.4 Globulin 3.0 Albumin/Globulin Ratio 1.1 Urine Color Yellow Urine Clarity Clear Urine pH 5.0 Ur Specific [place] 1.020 Urine Protein 15 H Urine Glucose (UA) 1000 H Urine Ketones 5 H Urine Occult Blood 25 H Urine Nitrite Negative Urine Bilirubin Negative Urine Urobilinogen 1 H Ur Leukocyte Esterase 25 H Urine RBC 0-5 SEEN Urine WBC 0-5 SEEN Ur Squamous Epith Cells 0 SEEN Urine Bacteria 0 SEEN Urine Mucus 0 SEEN Rhythm Strip Rhythm Strip: Sinus Rhythm Rate: 70 Ectopy: None EKG Initial EKG: Comments: Sinus rhythm with a rate of 78. Normal DC and QTc intervals. Left axis deviation. No acute ST changes. Slight widening of the QRS with a nonspecific intraventricular conduction delay. Interpreted by emergency doctor Discharge Plan Triage Chief Complaint: General Illness ED Provider: Jann Hoffmann Dx/Rx/DC Orders Clinical Impression: Acute dehydration, Hyperbilirubinemia, Hyperglycemia, Nausea Instructions: Dehydration Primary Care Provider: Jessica Alvarez [employer]NANA GRADER Referrals: Jessica Alvarez BANANA GRADER, BANANA GRADER-C [Primary Care Provider] - 3-5 Days Disposition Disposition: Assisted Living What to do if you have Problems For any increased pain, shortness of breath, bleeding, nausea or vomiting, chestpain, or any unexpected problems, contact your Primary Care Provider. Call [facility] ([phone]) or report to the closest Emergency Room. Call 911 if necessary. 11/08/22 1056 <Electronically signed by Jann Hoffmann MD> Cosigner Signature (if applicable): CC: TARI Alvarez ~ Signed [facility] Work Phone: [phone] 176-910801-29-2022 Hospital Discharge instructions Patient Education 04/30/2021 07:39:48 Fracture, Wrist, General Wrist Fracture, General You have a broken bone (fracture) in your wrist. This may be a small crack or chip in the bone. Or it may be a major break, with the broken parts pushed out of position. Wrist fractures are often treated with a splint or cast. They take about 4 to 6 weeks to heal. Severe injuries may need surgery. Home care Follow these guidelines when caring for yourself at home: Keep your arm elevated to reduce pain and swelling. When sitting or lying down keep your arm above the level of your heart. You can do this by placing your arm on a pillow that rests on your chest oron a pillow at your side. This is most important during the first 2 days (48 hours) after the injury. Put an ice pack on the injured area. Do this for 20 minutes every 1 to 2 hours the first day for pain relief. You can make an ice pack by wrapping a plastic bag of ice cubes in a thin towel. As the ice melts, be careful that the cast or splint doesn t get wet. Continue using the ice pack 3 to 4 times a day for the next 2 days. Then use the ice pack as needed to ease pain and swelling. Keep the cast or splint completely dry at all times. Bathe with your cast or splint out of the water. Protect it with a large plastic bag, rubber-banded or taped at the top end. If a fiberglass cast or splint gets wet, you can dry it with a management department chair on a cool setting. You may use acetaminophen or ibuprofen to control pain, unless another pain medicine was prescribed. If you have chronic liver or kidney disease, talk with your healthcare provider before using thesemedicines. Also talk with your provider if you ve had a stomach ulcer or gastrointestinal bleeding. Don t put creams, lotions, or objects under the cast. Follow-up care Follow up with your healthcare provider as advised. This is to make sure the bone is healing the way it should. If a splint was put on, it may be changed to a cast during your follow-up visit. A castmay need to be changed at 2 to 3 weeks, as the swelling goes down. If X-rays were taken, a radiologist may look at them. You will be told of any new findings that mayaffect your care. When to seek medical advice Call your healthcare provider right away if any of these occur: The plaster cast or splint becomes wet or soft The cast or splint cracks Bad odor from the cast or wound fluid stains the cast The fiberglass cast or splint stays wet for more than 24 hours Tightness or pain under the cast or splint gets worse Fingers become swollen, cold, blue, numb, or tingly You can t move your fingers Skin around cast becomes red, swollen, or irritated [id number] [employer] [address] [place] [address]. All rights reserved. This information is not intended as a substitute for professional medical care. Always follow yourhealthcare professional's instructions. Follow Up Care 04/30/2021 07:20:30 With:DO ANIBAL NOLASCO DO Address: When:3-5 days [facility] 12-03-2021 Note. MICRO - Microbiology PROCEDURE: Blood Culture (bacterial) [*1] SOURCE: Blood BODY SITE: COLLECTED DATE/TIME: 02/26/2021 17:20 EST RECEIVED DATE/TIME: 02/27/2021 18:49 EST START DATE/TIME: 02/27/2021 18:49 EST FREE TEXT SOURCE: FINAL REPORTS Final Report [] Verified Date/Time/Personnel: 03/04/2021 18:59 EST Blood Culture: No Growth at 5 days. PRELIMINARY REPORTS Preliminary Report [] Verified Date/Time/Personnel: 02/27/2021 19:59 EST Culture has been received in lab and is no growth to date. Routine cultures are held for 5 days. Performing Locations *1: This test was performed at: [address], [id number] , [facility] ([place])03-04-2021 Note. MICRO - Microbiology PROCEDURE: Blood Culture (bacterial) [*1] SOURCE: Blood BODY SITE: COLLECTED DATE/TIME: 02/26/2021 17:20 EST RECEIVED DATE/TIME: 02/27/2021 18:49 EST START DATE/TIME: 02/27/2021 18:49 EST FREE TEXT SOURCE: FINAL REPORTS Final Report [] Verified Date/Time/Personnel: 03/04/2021 18:59 EST Blood Culture: No Growth at 5 days. PRELIMINARY REPORTS Preliminary Report [] Verified Date/Time/Personnel: 02/27/2021 19:59 EST Culture has been received in lab and is no growth to date. Routine cultures are held for 5 days. Performing Locations *1: This test was performed at: [address], [id number] [place] [address] ([place])02-28-2021 Hospital Discharge instructions Patient Education 02/28/2021 13:15:37 Nasal Fracture, Zrpt-vb-Fawm Nasal Fracture A fracture is a break in a bone. A nasal fracture is a broken nose. Minor breaks do not need treatment. They often heal on their own in about one month. Serious breaks may need treatment. Sometimes surgery is needed. What are the causes? This condition is usually caused by a direct hit to the nose (blunt injury). This often occurs from: Playing a contact sport. Being in a car accident. Falling. Getting punched. What are the signs or symptoms? Pain. Swelling of the nose. Bleeding from the nose. Bruising around the nose or bruising around the eyes (black eyes). The nose having a crooked shape. How is this treated? Treatment depends on how bad the injury is. Minor breaks often do not need treatment. For more serious breaks that have caused bones to move out of position, treatment may involve one of these: ?Moving the bones back into position without surgery. Your doctor may be able to do this in his or her office after you are given medicine to numb the nose area (local anesthetic). ?Surgery. If needed, this will be done after the swelling is gone. Follow these instructions at home: Activity Return to your normal activities as told by your doctor. Ask your doctor what activities are safe for you. Do not play contact sports for 3 4 weeks or as told by your doctor. General instructions If told, put ice on the injured area: ?Put ice in a plastic bag. ?Place a towel between your skin and the bag. ?Leave the ice on for 20 minutes, 2 3 times a day. Take knns-ueb-hwwpzvx and prescription medicines only as told by your doctor. If your nose bleeds, sit up while you gently squeeze your nose shut for 10 minutes. Try to not blow your nose. Keep all follow-up visits as told by your doctor. This is important. Contact a doctor if: You have more pain or very bad pain. You keep having nosebleeds. The shape of your nose does not return to normal after 5 days. You have pus coming out of your nose. Get help right away if: Your nose bleeds for more than 20 minutes. You have clear fluid draining out of your nose. You have a swelling on the inside of your nose that does not get better. You have trouble moving your eyes. You keep throwing up (vomiting). Summary A nasal fracture is a broken nose. Symptoms include pain, swelling, and bruising. Minor breaks often do not require treatment. More serious breaks may require surgery or other treatments. If your nose bleeds, sit up while you gently squeeze your nose shut for 10 minutes. This information is not intended to replace advice given to you by your health care provider. Make sure you discuss any questions you have with your health care provider. Document Released: 12/26/2008 Document Revised: 08/20/2018 Document Reviewed: 08/20/2018 [employer] Patient Education 2020 [employer] 02/28/2021 13:15:21 Fall Prevention and Home Safety, Lffk-dg-Ycsb Fall Prevention and Home Safety Falls cause injuries and can affect all age groups. It is possible to prevent falls. HOW TO PREVENT FALLS Wear shoes with rubber soles that do not have an opening for your toes. Keep the inside and outside of your house well lit. Use night lights throughout your home. Remove clutter from floors. Clean up floor spills. Remove throw rugs or fasten them to the floor with carpet tape. Do not place electrical cords across pathways. Put grab bars by your tub, shower, and toilet. Do not use towel bars as grab bars. Put handrails on both sides of the stairway. Fix loose handrails. Do not climb on stools or stepladders, if possible. Do not wax your floors. Repair uneven or unsafe sidewalks, walkways, or stairs. Keep items you use a lot within reach. Be aware of pets. Keep emergency numbers next to the telephone. Put smoke detectors in your home and near bedrooms. Ask your doctor what other things you can do to prevent falls. Document Released: 01/13/2010 Document Revised: 09/17/2012 Document Reviewed: 06/18/2012 [facility] Patient Information 2015 [employer]. This information is not intended to replace advicegiven to you by your health care provider. Make sure you discuss any questions you have with your health care provider. Follow Up Care 02/26/2021 17:06:54 With:Follow up with primary care provider Address: When:3-5 days [facility] 11-28-2021 Note. MICRO - Microbiology PROCEDURE: Legionella Urine Ag [*1] SOURCE: Urine BODY SITE: COLLECTED DATE/TIME: 02/27/2021 13:25 EST RECEIVED DATE/TIME: 02/27/2021 18:51 EST START DATE/TIME: 02/27/2021 18:51 EST FREE TEXT SOURCE: FINAL REPORTS Final Report [] Verified Date/Time/Personnel: 02/27/2021 20:30 EST Presumptive negative for L. pneumophila serogroup 1 antigen in urine, suggesting no recent or current infection. Legionnaire's disease cannot be ruled out since other serogroups and species may also cause disease. Performing Locations *1: This test was performed at: [facility], [address] [place] [address], [id number]- , [facility] ([place])02-27-2021 Note. MICRO - Microbiology PROCEDURE: Streptococcus Pneumoniae Urine Antig [^1 *1] SOURCE: Urine, Clean Catch BODY SITE: COLLECTED DATE/TIME: 02/27/2021 13:25 EST RECEIVED DATE/TIME: 02/27/2021 18:51 EST START DATE/TIME: 02/27/2021 18:51 EST FREE TEXT SOURCE: FINAL REPORTS Final Report [] Verified Date/Time/Personnel: 02/27/2021 20:30 EST Presumptive negative for pneumococcal pneumonia, suggesting no current or recent pneumococcal infection. Infection due to Strep pneumoniae cannot be ruled out since the antigen present in the sample may be below the detection limit of the test. Interpretive Data ^1: Streptococcus Pneumoniae Urine Antig This test has not been evaluated on patients taking antibiotics for greater than 24 hours or on patients who have recently completed an antibiotic regimen. The accuracy of this test has not been proven in young children. Performing Locations *1: This test was performed at: [facility], [address] [place] [address], [facility]- , [facility] ([place])02-27-2021 Evaluation + Plan noteExtracted from: Title:History and Physical Author:CROW CLIFFORD APRN-DIALYSIS CHIEF EQUIPMENT TECHNICIAN Date:02/27/21 1. COPD without exacerbation 2. Altered mental status 3. Frequent falls 4. History of COVID-19 5. Type 2 diabetes mellitus 6. HTN (hypertension) 7. CAD in [place] artery 8. CHIRAG (obstructive sleep apnea) 9. Nasal bone fracture Orders: Basic Metabolic Panel Complete Blood Count Complete Metabolic Panel N-Terminal proBNP COPD without exacerbation patient required 100% nonrebreather when he first arrived however he is now maintained on his home dose of 3 L via nasal cannula.. He has no wheezing, cough, sputum production. Altered mental status mentation is much improved. This is likely related to hypoxia. Frequent Falls-Continue physical therapy in SNF. Maintain fall precautions while in the hospital. History of Covid 19 patient completed course of dexamethasone on 02/25/2021. CTA demonstrates multifocal pneumonia which is consistent with Covid 19. Patient has no fever, leukocytosis. No wheezing or crackles. Clinically patient appears quite stable. Uncertain cause for hypoxia yesterday. We will continue to monitor over the next 24 hours with anticipated discharge back to [facility] facility tomorrow. Hypertension continue home medications. SBP goal 140 or less. CAD Information from continue Imdur and Plavix CHIRAG no history of CPAP use. Chronic O2 via nasal cannula at 3 L/min. Comminuted nasal bone fracture status post fall. Supportive measures with analgesics, ice. Patient denies any pain or discomfort. Labs, diagnostics reviewed as noted in HPI or A/P. External records reviewed via [employer]. Code Status: Full code Clinically patient is improved today from time of admission. We will continue to closely monitor patient. Discussed with collaborating physician, Dr. Au This document was transcribed using a voice recognition software and may contain typographical errors. Diagnostic Tests Pending * Theophylline Level Panel 03/01/21 [facility] 11-22-2021 NoteHNO ID: [id number] Author: Hammad Newton RN Service: ? Author Type: Registered Nurse Type: Progress Notes Filed: 02/21/2021 2:07 PM Note Text: COVID COMMUNITY MONITORING PROGRAM Provider Action/FYI: Did not contact patient. Not appropriate for COVID monitoring as patient currently in facility. Hammad Newton RN February 21, 2021 2:[address] [facility]11-22-2021 NotePatient Outreach (QAINDP) SHOLA MARTINEZ ([id number]) 1950 M Date Time Provider Department 02/21/21 HAMM[facility] NEWTON QAINDP During your visit today, we recorded the following information about you: Hammad Newton RN 02/21/2021 2:07 PM Signed COVID COMMUNITY MONITORING PROGRAM Provider Action/FYI: Did not contact patient. Not appropriate for COVID monitoring as patient currently in facility. Hammad Newton RN February 21, 2021 2:07 PM Allergies As of Date: 02/21/2021 (No Known Allergies) Date Reviewed: 02/17/2021 Reviewed by: Jalen Cunningham, EMA - Fully Assessed Reason for Visit: Covid Follow Up [3887] Prescriptions as of 02/21/2021 - guaiFENesin (MUCINEX) 600 mg 12 hr tablet Take 1 tablet by mouth every 12 hours as needed (cough). - dexAMETHasone (DECADRON) 6 mg tablet Take 1 tablet by mouth daily with breakfast for 6 doses. - albuterol HFA (PROVENTIL HFA, VENTOLIN HFA) 90 mcg/actuation inhaler Inhale 1 Puff as instructed as needed. - clopidogrel (PLAVIX) 75 mg tablet Take 75 mg by mouth once daily. - hydrOXYzine pamoate (VISTARIL) 25 mg capsule Take 25 mg by mouth as needed for itching/rash. - isosorbide mononitrate ER (IMDUR) 30 mg 24 hr tablet Take 30 mg by mouth once daily. - TRADJENTA 5 mg tab Take 5 mg by mouth once daily. - losartan (COZAAR) 25 mg tablet Take 25 mg by mouth once daily. - OZEMPIC 0.25 mg or 0.5 mg(2 mg/1.5 mL) pen injector Inject 0.5 mg subcutaneously every . - tamsulosin (FLOMAX) 0.4 mg Take 0.4 mg by mouth once daily. - atorvastatin (LIPITOR) 80 mg tablet Take 80 mg by mouth once daily. - metFORMIN ER (GLUCOPHAGE XR) 750 mg 24 hr tablet Take 750 mg by mouth twice daily with meals. - aspirin 81 mg chewable tablet Take 81 mg by mouth once daily. Indications: CEREBRAL THROMBOEMBOLISM PREVENTION - multivitamin tablet Take 1 tablet by mouth daily with breakfast. - senna (SENEXON) 8.6 mg tab Take 8.6 mg by mouth twice daily. - acetaminophen (TYLENOL) 325 mg tablet Take 650 mg by mouth every 6 hours as needed. Indications: PAIN Problem List As Of Date 02/21/2021 Noted Resolved COVID-19 [U07.1] 02/15/2021 Encounter Status:Closed by HAMMAD NEWTON on 02/21/21[facility]11-19-2021 NoteHNO ID: [id number] Author: Lis Garcia RN Service: Nursing Author Type: Registered Nurse Type: Nursing Progress Note Filed: 02/18/2021 5:10 PM Note Text[facility] NoteHNO ID: [id number] Author: Loren Muir RN Service: Care Management Author Type: Registered Nurse Type: Care Mgt Progress Note Filed: 02/18/2021 1:35 PM Note Text: CARE MANAGEMENT DISCHARGE NOTE SERVICE DATE: 02/18/2021 SERVICE TIME: 1:32 PM LOS: 3 days Admission Date: 02/14/2021 DISCHARGE ARRANGEMENT (list agency and phone number) Discharge Arrangement: Jail Facility Was an expedited discharge program used?: No Provider Name: [facility] CAREGIVER ASSESSMENT: Caregiver is ready, willing and able to meet the patient's needs as recommended by the inter-professional team:: Yes Does the patient have an acute stroke diagnosis, or has the patient had a stroke during this admission?: No Patient's transition needs and plan for meeting these needs: SNF HANDOFF COMMUNICATION: TRANSPORTATION ARRANGEMENTS: Transportation Arrangements: Ambulance/[facility] Agency and Phone #:: [employer] [facility] ( [facility] ) [phone] / [phone] Date of Trip: 02/18/21 Time of Trip: 1700 Type of Service: BLS Non-emergency Is Patient Medicaid Pending?: No Discussion of financial coverage occurred with: Patient Crew Dispatcher Location: [facility] Destination: [facility] Financial Care Management Responsibility: None ADDITIONAL CONTACT RESOURCES: Discharge Information Row Name ED to Hosp-Admission (Current) from 02/14/2021 in [place] [facility] MED[facility] Facility Agency [facility] Patient discharged today. PT/OT recommending SNF, pt agreeable to [facility]. Precert completed, sent SNF 7000 and d/c summary. Pt will be going via cot from [facility] at 1700. Transport folder completed and on chart, RN notifed. Pt notified of d/c plans and agreeable. SIGNATURE: Loren Muir RN PATIENT NAME: Shola Martinez DATE: February 18, 2021 TIME: 1:32 PM PAGER/CONTACT #: [phone] NoteHNO ID: [id number] Author: Carmina Rodriguez RPh Service: Pharmacy Author Type: Pharmacist Type: Plan of Care Filed: 02/18/2021 1:20 PM Note Text: DISCHARGE MEDICATION REVIEW BY PHARMACY Patient Name: Shola Martinez Account #: Data Unavailable Admission Date: 02/14/2021 Date of Contact: February 18, 2021 Time of Contact: 1:20 PM Medication list was reviewed by a Pharmacist for drug interactions or drug related problems:Yes Below is a summary of pharmacist recommendations discussed with LIP: No Recommendations at this time from Discharge Medication List. Carmina Rodriguez RPh February 18, 2021 1:20 PM Pager: [phone] 02/18/2021 1:20 PM Medication List START taking these medications dexAMETHasone 6 mg tablet Commonly known as: DECADRON Take 1 tablet by mouth daily with breakfast for 6 doses. Start taking on: February 19, 2021 guaiFENesin 600 mg 12 hr tablet Commonly known as: MUCINEX Take 1 tablet by mouth every 12 hours as needed (cough). CONTINUE taking these medications acetaminophen 325 mg tablet Commonly known as: TYLENOL albuterol HFA 90 mcg/actuation inhaler Commonly known as: PROVENTIL HFA, VENTOLIN HFA aspirin 81 mg chewable tablet atorvastatin 80 mg tablet Commonly known as: LIPITOR clopidogrel 75 mg tablet Commonly known as: PLAVIX hydrOXYzine pamoate 25 mg capsule Commonly known as: VISTARIL isosorbide mononitrate ER 30 mg 24 hr tablet Commonly known as: IMDUR losartan 25 mg tablet Commonly known as: COZAAR metFORMIN ER 750 mg 24 hr tablet Commonly known as: GLUCOPHAGE XR multivitamin tablet OZEMPIC 0.25 mg or 0.5 mg(2 mg/1.5 mL) pen injector Generic drug: semaglutide SENEXON 8.6 mg Tab Generic drug: senna tamsulosin 0.4 mg Commonly known as: FLOMAX TRADJENTA 5 mg Tab Generic drug: [facility]tin[facility]2021 NoteHNO ID: [id number] Author: Lis Garcia RN Service: Nursing Author Type: Registered Nurse Type: Nursing Progress Note Filed: 02/18/2021 8:38 AM Note Text: Dr Ellis notified patient requesting something for [facility]11-18-2021 NoteHNO ID: [id number] Author: Renny Tenorio DO Service: Hospital Medicine Author Type: Physician Type: Progress Notes Filed: 02/17/2021 5:16 PM Note Text: DEPARTMENT OF HOSPITAL MEDICINE PROGRESS NOTE SERVICE DATE: 02/17/2021 SERVICE TIME: 5:13 PM Hospital Medicine/Primary Attending: Renny Tenorio DO NIGHT AND WEEKEND COVERAGE: After 7pm please page [phone] CHIEF COMPLAINT: weakness SUBJECTIVE: Pt seen and examined. Denies CP, SOB, NVD, headache, fever/chills or abdominal pain today. Complains of weakness. Agreeable to SNF now. OBJECTIVE: PHYSICAL EXAM: BP 122/67 Pulse 60 Temp (Src) 97.3 (Oral) Resp 20 Ht 6' 2" (1.88m) Wt 248 lb (112.5kg) SpO2 95% BMI 31.83 kg/(m2). O2 Therapy: Room Air General - AANDOx3, NAD CV - RRR S1 S2, No rubs or gallops RESP - decreased BS at bases, No wheezes, ronchi, rales ABD - soft, NT, ND +bowel sounds EXT - no gross joint deformity, no clubbing, cyanosis, edema NEURO - CN II-XII grossly intact, no focal neurologic deficits MEDICATIONS: Current Facility-Administered Medications Medication Dose Route Frequency - NaCl 0.9% iv flush bag 20 mL INTRAVENOUS PRN - sodium chloride 0.9 % (flush) 3-5 mL (BD POSIFLUSH) 3-5 mL INTRAVENOUS q 12 H - dextrose 40 % 15 g 15 g ORAL PRN Or - glucagon 1 mg injection 1 mg INTRAMUSCULAR PRN Or - dextrose 50% in water 25 mL syringe 12.5 g INTRAVENOUS PRN - insulin lispro pen (rapid acting) (HumaLOG KWIKPEN) SUBCUTANEOUS w MEALS - dexAMETHasone 6 mg tab(s) (DECADRON) 6 mg ORAL DAILY WITH BREAKFAST - acetaminophen 650 mg tab(s) (TYLENOL) 650 mg ORAL q 6 H PRN - losartan 25 mg tab(s) (COZAAR) 25 mg ORAL DAILY - tamsulosin 0.4 mg cap(s) (FLOMAX) 0.4 mg ORAL DAILY - albuterol HFA 90 mcg/actuation 1 Puff (PROVENTIL HFA, VENTOLIN HFA) 1 Puff INHALATION q 4 H PRN - senna 8.6 mg tab(s) (SENOKOT) 8.6 mg ORAL BID - aspirin 81 mg chewable tab(s) 81 mg ORAL DAILY - clopidogrel 75 mg tab(s) (PLAVIX) 75 mg ORAL DAILY - therapeutic multivitamin-minerals tablet (THERA-M PLUS) 1 tablet ORAL DAILY WITH BREAKFAST - enoxaparin 40 mg injection (LOVENOX) 40 mg SUBCUTANEOUS q 12 HR DATA: Diagnostic tests reviewed for today's visit: CBC: Recent Labs 02/17/21351 WBC 2.90* RBC 4.99 HB 15.0 HCT 42.7 PLT 109* MCV 85.6 MCH 30.1 MPV 9.0 Coags: No results for input(s): PT, INR, APTT in the last 24 hours. BMP: Recent Labs 02/17/21351 NA 132* K 4.0 CHLOR 98 CO2 21* BUN 13 CREAT 0.87 GLUC 119* CMP: Recent Labs 02/17/21351 NA 132* K 4.0 CHLOR 98 CO2 21* BUN 13 CREAT 0.87 GLUC 119* TPROT 6.2* CA 8.1* TBILI 1.2 ALKPHOS 85 ALT 51 AST 48* ANION 13 Cardiac Enzymes: No results for input(s): CK, MB, CKMB, TROPT in the last 24 hours. Liver Function, Amylase, Lipase: Recent Labs 02/17/21351 TPROT 6.2* ALB 3.7* ALT 51 AST 48* ALKPHOS 85 TBILI 1.2 MG/PHOS: No results for input(s): MG, P in the last 24 hours. Renal Panel: Recent Labs 02/17/21351 CREAT 0.87 BUN 13 GLUC 119* CA 8.1* CHLOR 98 K 4.0 CO2 21* NA 132* Heme: Recent Labs 02/17/21351 LATONIA 316.9 No results found for: UALBCR Estimated Creatinine Clearance: 103.9 mL/min (based on SCr of 0.87 mg/dL). Assessment/Plan #COVID19 infection -CXR shows no sign of infection -met sepsis criteria in setting of covid19 infection, given antibiotics, but PCT 0.11, will monitor off antibiotics now -started on decadron given symptoms, will continue -trend inflammatory markers, CRP 0.5, ddimer 590 -IVF ? #Nausea, vomiting, diarrhea 2/2 COVID19 infection #Dehydration -PO intake starting to improve, denies vomiting today -s/p IVF, encourage PO intake -avoid IVF today give hx of HF ? #Transaminitis- likely 2/2 covid19 infection and in setting hepatic steatosis on US. LFTs improving, will trend -check acute hepatitis panel -hold statin until PCP follow up ? #Thrombocytopenia- possible 2/2 covid19 infection, trending up, will need to follow up with PCP outpatient ? #Leukopenia- wbc trending up, likely 2/2 covid19 infections ? #Chronic diastolic HF- continue home regimen ? #DMII, Hyperglycemia- SSIC while on steroid. Home antiglycemics held on admission ? #CAD-continue aspirin and plavix ? #HTN-continue home regimen, cozaar ? #BPH-continue flomax ? #CHIRAG-uses 3L NC QHS at home, continue in hospital PTOT recommending SNF, patient agreeable. Precert started ? VTE Prophylaxis: Lovenox 40mg Sub Q Daily ? Disposition: SNF, Precert pending Plan of care discussed with: Provider, RN, Patient and Care Management SIGNATURE: Renny Tenorio DO PATIENT NAME: Shola Martinez DATE: February 17, 2021 TIME: 5:13 PM PAGER/CONTACT #: Team color pager Disclaimer: Portions of this note may have been generated using Blokify voice recognition software. Reasonable efforts were made to correct any dictation erro (more content not included)...[facility] 02-17-2021 NoteHNO ID: [id number] Author: Loren Muir RN Service: Care Management Author Type: Registered Nurse Type: Care Mgt Progress Note Filed: 02/17/2021 3:05 PM Note Text: CARE MANAGEMENT PROGRESS NOTE SERVICE DATE: 02/17/2021 SERVICE TIME: 3:01 PM LOS: 2 days Chart reviewed. PT/OT recs are for SNF, pt is agreeable. [facility] is able to accept and is foc. Precert has been started, agreeable to start now. Pt will need cot at d/c. to follow. SIGNATURE: Loren Muir RN PATIENT NAME: Shola Martinez DATE: February 17, 2021 TIME: 3:01 PM PAGER/CONTACT #: [phone]. [facility]11[facility] NoteHNO ID: [id number] Author: Renny Tenorio DO Service: Hospital Medicine Author Type: Physician Type: Progress Notes Filed: 02/16/2021 1:43 PM Note Text: DEPARTMENT OF HOSPITAL MEDICINE PROGRESS NOTE SERVICE DATE: 02/16/2021 SERVICE TIME: 1:33 PM Hospital Medicine/Primary Attending: Renny Tenorio DO NIGHT AND WEEKEND COVERAGE: After 7pm please page [phone] CHIEF COMPLAINT: weakness SUBJECTIVE: Pt seen and examined. Feels weak today, but states finally able to get some oral intake today, denies CP, SOB at rest, vomiting, headache , fever/chills or abdominal pain. OBJECTIVE: PHYSICAL EXAM: BP 129/73 Pulse 62 Temp (Src) 97.7 (Oral) Resp 20 Ht 6' 2" (1.88m) Wt 248 lb (112.5kg) SpO2 95% BMI 31.83 kg/(m2). O2 Therapy: Room Air, Liters: 2 General - AANDOx3, NAD, Calm CV - RRR S1 S2, No rubs or gallops RESP - decreased BS at bases, No wheezes, ronchi, rales ABD - soft, NT, ND +BS EXT - no gross joint deformity, no clubbing, cyanosis, edema NEURO - CN II-XII grossly intact, no focal deficits MEDICATIONS: Current Facility-Administered Medications Medication Dose Route Frequency - NaCl 0.9% iv flush bag 20 mL INTRAVENOUS PRN - enoxaparin 60 mg injection (LOVENOX) 60 mg SUBCUTANEOUS q 12 HR - sodium chloride 0.9 % (flush) 3-5 mL (BD POSIFLUSH) 3-5 mL INTRAVENOUS q 12 H - dextrose 40 % 15 g 15 g ORAL PRN Or - glucagon 1 mg injection 1 mg INTRAMUSCULAR PRN Or - dextrose 50% in water 25 mL syringe 12.5 g INTRAVENOUS PRN - insulin lispro pen (rapid acting) (HumaLOG KWIKPEN) SUBCUTANEOUS w MEALS - dexAMETHasone 6 mg tab(s) (DECADRON) 6 mg ORAL DAILY WITH BREAKFAST - acetaminophen 650 mg tab(s) (TYLENOL) 650 mg ORAL q 6 H PRN - losartan 25 mg tab(s) (COZAAR) 25 mg ORAL DAILY - tamsulosin 0.4 mg cap(s) (FLOMAX) 0.4 mg ORAL DAILY - albuterol HFA 90 mcg/actuation 1 Puff (PROVENTIL HFA, VENTOLIN HFA) 1 Puff INHALATION q 4 H PRN - senna 8.6 mg tab(s) (SENOKOT) 8.6 mg ORAL BID - aspirin 81 mg chewable tab(s) 81 mg ORAL DAILY - clopidogrel 75 mg tab(s) (PLAVIX) 75 mg ORAL DAILY - therapeutic multivitamin-minerals tablet (THERA-M PLUS) 1 tablet ORAL DAILY WITH BREAKFAST DATA: Diagnostic tests reviewed for today's visit: CBC: Recent Labs 02/16/21254 WBC 2.74* RBC 4.87 HB 14.6 HCT 42.1 PLT 101* MCV 86.4 MCH 30.0 MPV 9.0 Coags: No results for input(s): PT, INR, APTT in the last 24 hours. BMP: Recent Labs 02/16/21254 NA 132* K 4.0 CHLOR 96* CO2 24 BUN 11 CREAT 1.00 GLUC 112* CMP: Recent Labs 02/16/21254 NA 132* K 4.0 CHLOR 96* CO2 24 BUN 11 CREAT 1.00 GLUC 112* TPROT 6.3 CA 8.2* TBILI 1.4* ALKPHOS 90 ALT 57* AST 60* ANION 12 Cardiac Enzymes: No results for input(s): CK, MB, CKMB, TROPT in the last 24 hours. Liver Function, Amylase, Lipase: Recent Labs 02/16/21254 TPROT 6.3 ALB 3.8* ALT 57* AST 60* ALKPHOS 90 TBILI 1.4* MG/PHOS: No results for input(s): MG, P in the last 24 hours. Renal Panel: Recent Labs 02/16/21254 CREAT 1.00 BUN 11 GLUC 112* CA 8.2* CHLOR 96* K 4.0 CO2 24 NA 132* Heme: No results for input(s): RETICP, ABSRETIC, LD, LATONIA, FE, TIBC, TRANSFERSAT in the last 24 hours. No results found for: UALBCR Estimated Creatinine Clearance: 90.4 mL/min (based on SCr of 1 mg/dL). Assessment/Plan #COVID19 infection -CXR shows no sign of infection -met sepsis criteria in setting of covid19 infection, given antibiotics, but PCT 0.11, will monitor off antibiotics now -started on decadron given symptoms, will continue -trend inflammatory markers, CRP 0.5, ddimer 590 -IVF #Nausea, vomiting, diarrhea 2/2 COVID19 infection #Dehydration -PO intake starting to improve, denies vomiting today -s/p IVF, encourage PO intake -avoid IVF today give hx of HF #Transaminitis- likely 2/2 covid19 infection and in setting hepatic steatosis on US. LFTs improving, will trend -check acute hepatitis panel -hold statin until PCP follow up #Thrombocytopenia- possible 2/2 covid19 infection, trending up, will need to follow up with PCP outpatient #Leukopenia- wbc trending up, likely 2/2 covid19 infections #Chronic diastolic HF- continue home regimen #DMII, Hyperglycemia- SSIC while on steroid. Home antiglycemics held on admission #CAD-continue aspirin and plavix #HTN-continue home regimen, cozaar #BPH-continue flomax #CHIRAG-uses 3L NC QHS at home, continue in hospital VTE Prophylaxis: Lovenox 40mg Sub Q Daily Disposition: pending PTOT eval Plan of care discussed with: Provider, RN, Patient and Care Management SIGNATURE: Renny Tenorio DO PATIENT NAME: Shola Martinez DATE: February 16, 2021 TIME: 1:33 PM PAGER/CONTACT #: Team color pager Disclaimer: Portions of this note may have been generated using Blokify voice recognition software. Reasonable efforts were made to correct any dictation errors that resulted due to the (more content not included)...[facility]11-17-2021 NoteHNO ID: [id number] Author: Lis Garcia RN Service: Nursing Author Type: Registered Nurse Type: Nursing Progress Note Filed: 02/16/2021 12:13 PM Note Text: Multiple attempts for iv unsuccessful Splitter Machine to attempt as soon as possibleSt. 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 Last discharge within 30 days: No Advance Directive: Current Advance Directive: None Wire Taper Attempted to Assist with AD Completion: Yes Action: Education Provided Health LiteracyHow often do you need to have someone help you when you read instructions, pamphlets, or other written material from your doctor or pharmacy? : 1 - Never How confident are you filling out medical forms by yourself?: 1 - Extremely If Patient scores > 3 on either question, the following interventions were put into place:: Patient did not score > 3 on either question. Baseline Mental Status Prior to this Illness what was the patient's Baseline Mental Status?: Alert AND Oriented Prior to this illness, has anyone described the patient having any of the following behaviors?: Not Applicable Relationship of the informant to the patient:: Self Functional Status: Needs Assistance Does Patient Currently Receive Any Community Services or Home Care?: Home Health Care Agency Equipment Prior to Admission: Cane;Walker;Wheelchair Has the Patient Been in a Jail Facility in the Past 30 days?: No SOCIAL: Living Arrangements: Home Lives With: Alone Primary Contact: Extended Emergency Contact Information Primary Emergency Contact: Marge Tuttle Mobile Relation: Sister Secondary Emergency Contact: JenniferJessica Relation: Relative Supportive Patient Contact:: Yes Contact Resources: Family Family Name/Phone: Marge Caregiver AssessmentCaregiver is ready, willing and able to meet the patient's needs as recommended by the inter-professional team:: No Does the patient have an acute stroke diagnosis, or has the patient had a stroke during this admission?: No Patient's transition needs and plan for meeting these needs: TBD Patient's perception of need for this admission: Medication Adherance I am convinced of the importance of my prescription medication: 0 - Agree Completely I worry that my prescription medication will do more harm than good to me : 0 - Disagree Completely I feel financially burdened by my [id number] expenses for my prescription medication:: 0 - Disagree Completely Risk Score: 0 Patient is categorized as: Low risk < 2 Are you interested in bedside delivery of your medications? No Is Patient Psychosocially Complex?: No ASSESSMENT AND PLAN: Medical Needs: Medical Needs: None Psychosocial Needs: Psychosocial Needs: None FREEDOM OF CHOICE EXPLAINED: [place] of Choice Given: No Reason Not Given: Unable to complete with this assessment - revisit POTENTIAL TRANSITION PLANS To Be Determined Pt is from home alone +DME, +PCP, + RX, pt uses a wheelchair to get around apartment and is active with [facility] at home. Will send a return referral to [facility] care. Pt is on 2L NC will send a referral to [facility], will need script and ambulatory at d/c. No remdesivir at this time. Pt states he will need transport at d/c. He has a ramp into apartment complex and elevator to his nuno. CM to follow clinical progress. SIGNATURE: Loren Muir RN PATIENT NAME: Shola Martinez DATE: February 16, 2021 TIME: 11:41 AM PAGER/CONTACT #: [phone]. Mary'S [facility]11-16-2021 NoteHNO ID: [id number] Author: Ashli Parson (Weatherization Operations Manager) Service: Pharmacy Author Type: Dialysis Chief Equipment Technician Type: Plan of Care Filed: 02/15/2021 11:27 AM Note Text: PHARMACY MEDICATION REVIEW Patient Name: Shola Martinez : 1950 The following medications were updated within the DATA CONTROL ASSISTANT medication list: Medications ADDED to DATA CONTROL ASSISTANT medication list albuterol HFA (PROVENTIL HFA, VENTOLIN HFA) 90 mcg/actuation inhaler clopidogrel (PLAVIX) 75 mg tablet hydrOXYzine pamoate (VISTARIL) 25 mg capsule isosorbide mononitrate ER (IMDUR) 30 mg 24 hr tablet TRADJENTA 5 mg tab losartan (COZAAR) 25 mg tablet OZEMPIC 0.25 mg or 0.5 mg(2 mg/1.5 mL) pen injector tamsulosin (FLOMAX) 0.4 mg atorvastatin (LIPITOR) 80 mg tablet metFORMIN ER (GLUCOPHAGE XR) 750 mg 24 hr tablet ? Medications CHANGED on DATA CONTROL ASSISTANT medication list ? Medications REMOVED from DATA CONTROL ASSISTANT medication list atorvastatin (LIPITOR) 40 mg tablet Dosage adjustment metFORMIN (GLUCOPHAGE) 500 mg tablet Dosage adjustment Cholecalciferol, Vitamin D3, (VITAMIN D-3) 2,000 unit cap Course of therapy completed furosemide (LASIX) 20 mg tablet Course of therapy completed meclizine (ANTIVERT) 25 mg tab Course of therapy completed polyethylene glycol 3350 (MIRALAX, GLYCOLAX) 17 gram packet Course of therapy completed ? Additional comments: verified medication information with patient, pharmacy and chart review. Patient stated on atorvastatin 80 mg - removed 40 mg and added 80 mg to med list. Patient stated on metformin ER 750 mg not 500 mg - removed 500 mg and added ER 750 mg to med list. Patient stated no longer taking Vit D, Lasix, Antivert and Miralax - removed from med list. Patient stated taking/using inhaler, Plavix, hydroxyzine, Imdur, Tradjenta, losartan, Ozempic, and Flomax - added to med list. Pharmacy confirmed fill dates current. Patient stated Ozempic is given on . The below information represents the best possible medication history: Yes Medication history completed by: Dialysis Chief Equipment Technician: Ashli Parson (Weatherization Operations Manager) Source of history: Patient: Reliability of source: Appears reliable, clearly identified: Medication name, Medication dose, Medication route and Medication frequency, Pharmacy records: [facility] [phone] and [facility] records Medication nonadherence identified: No barriers noted Reconciliation completed: No, pharmacist not yet reviewed Patient interested in Bedside Delivery Services or using CC OP Pharmacy at discharge? No Preferred outpatient pharmacy: [place] [place] [address] [address] [facility] [phone] [id number] Allergies: No Known Allergies Prior to Admission medications as of 02/14/21 0371 Medication Sig Last Dose Taking albuterol HFA (PROVENTIL HFA, VENTOLIN HFA) 90 mcg/actuation inhaler Inhale 1 Puff as instructed as needed. Yes clopidogrel (PLAVIX) 75 mg tablet Take 75 mg by mouth once daily. Yes hydrOXYzine pamoate (VISTARIL) 25 mg capsule Take 25 mg by mouth as needed for itching/rash. Yes isosorbide mononitrate ER (IMDUR) 30 mg 24 hr tablet Take 30 mg by mouth once daily. Yes TRADJENTA 5 mg tab Take 5 mg by mouth once daily. Yes losartan (COZAAR) 25 mg tablet Take 25 mg by mouth once daily. Yes OZEMPIC 0.25 mg or 0.5 mg(2 mg/1.5 mL) pen injector Inject 0.5 mg subcutaneously every . Yes tamsulosin (FLOMAX) 0.4 mg Take 0.4 mg by mouth once daily. Yes atorvastatin (LIPITOR) 80 mg tablet Take 80 mg by mouth once daily. Yes metFORMIN ER (GLUCOPHAGE XR) 750 mg 24 hr tablet Take 750 mg by mouth twice daily with meals. Yes aspirin 81 mg chewable tablet Take 81 mg by mouth once daily. Indications: CEREBRAL THROMBOEMBOLISM PREVENTION Yes multivitamin tablet Take 1 tablet by mouth daily with breakfast. Yes senna (SENEXON) 8.6 mg tab Take 8.6 mg by mouth twice daily. Yes acetaminophen (TYLENOL) 325 mg tablet Take 650 mg by mouth every 6 hours as needed. Indications: PAIN Yes Ashli Parson (Weatherization Operations Manager) [id number] 02/15/2021[facility]11-16-2021 Influenza virus A and B RNA and SARS-CoV-2 (COVID-19) N gene panel LILLIAN+probe (Resp)COVID 19 RESULT: SARS-CoV-2 (Agent of COVID-19) Detected by PCR. This test has been authorized by FDA under an Emergency Use Authorization (EUA). INFLUENZA A PCR: Negative for Influenza A by RT-PCR INFLUENZA B PCR: Negative for Influenza B by RT-PCRSt. Mary'S Regional Medical CenterComment on above: Performed By: #### [id number] ####[facility] LABORATORYCLIA [id number] [place] [address] [place] [id number] NoteHospitalist Discharge Summary Shola Martinez : 1950 Admit date: 01/30/2021 Discharge date: 02/01/2021 Admitting Physician: Eb Burgos MD Primary Care Physician: Favian Trevizo MD PhD Visit Status: Admission Code Status: Prior Discharge Diagnoses: 1. Dizziness, rule out posterior CVA--> NIHSS zero, Recent MRA H/N and echo in September 2020 wnl --> no need to repeat at this time. MRI of the brain showed no acute process. Advised to continue aspirin, Plavix and statin. Patient discharged home in stable condition. 2. CHIRAG 3. HTN 4. Type 2 DM with neuropathy 5. Hx of TIA 6. BPH 7. COPD 8. Obesity - BMI 34.15 Diagnosis Date ? Bilateral leg edema chronic intermittent ? Blurry vision ? CAD (coronary artery disease) ? Cataract ? Chronic obstructive pulmonary disease (HCC) 08/20/2018 ? CKD (chronic kidney disease) stage 2, GFR 60-89 ml/min 09/12/2019 ? Community acquired pneumonia 04/2016 ? Diabetic neuropathy (HCC) ? Dizziness after head injury 05/2013 ? Hx of blood clots ? Hyperlipidemia ? Hypertension ? Morbid obesity ([facility]) 05/21/2018 ? Recurrent UTI 02/03/2018 ? Sepsis due to gram-negative UTI ([facility]) 12/11/2017 ? Sleep apnea ? Type II or unspecified type diabetes mellitus without mention of complication, not stated as uncontrolled ? Weakness generalized after head injury 05/2013 Procedures: None Hospital Course: See discharge diagnoses list above and medication adjustments below in med rec.The patient is discharged in improved and stable condition. Consults: IP CONSULT TO CASE MANAGEMENT Discharge Instructions: Diet: No diet orders on file Activity: as tolerated Recommended Outpatient Tests: Disposition: Patient discharged in stable condition to Home with home health. Greater than 30 minutes spent discharging the patient and coming up with patient discharge plan. Vitals: BP 128/78 Pulse 62 Temp 97.7 ?F (36.5 ?C) (Temporal) Resp 18 Ht 6' 2" (1.88 m) Wt 266 lb (120.7 kg) SpO2 98% BMI 34.15 kg/m? Pulse Ox: SpO2 Av.7 % Min: 98 % Max: 99 % Supplemental O2: O2 Flow Rate (L/min): 3 L/min General appearance: No apparent distress, appears stated age and cooperative with exam HEENT: Normal cephalic, atraumatic without obvious deformity. Pupils equal, round, and reactive to light. Extra ocular muscles intact. Conjunctivae/corneas clear. Neck: Supple, with full range of motion. No jugular venous distention. Trachea midline. No lymphadenopathy. Respiratory: Normal respiratory effort. Clear to auscultation, bilaterally without Rales/Wheezes/Rhonchi. Cardiovascular: Regular rate and rhythm with normal S1/S2 without murmurs, rubs or gallops. Abdomen: Soft, non-tender, non-distended with normal bowel sounds. No rebound or guarding. Musculoskeletal: No clubbing, cyanosis or edema bilaterally. Full range of motion without deformity. Skin: Skin color, texture, turgor normal. No rashes or lesions. Neurologic: Neurovascularly intact without any focal sensory/motor deficits. Cranial nerves: II-XII intact, grossly non-focal. Discharge Medications: Shola Martinez Home Medication Instructions PEREZ:[id number] Printed on:02/01/21 6219 Medication Information Accu-Chek Softclix Lancets MISC TEST BLOOD SUGAR 3 TIMES A DAY. acetaminophen (TYLENOL) 325 MG tablet Take 2 tablets by mouth every 4 hours as needed for Pain or Fever albuterol sulfate HFA 108 (90 Base) MCG/ACT inhaler INHALE 2 PUFFS BY MOUTH EVERY 4 HOURS NEEDED FOR WHEEZING OR SHORTNESS OF BREATH WITH SPACER aspirin 81 MG chewable tablet Take 1 tablet by mouth daily Indications: Type 2 Diabetes atorvastatin (LIPITOR) 80 MG tablet TAKE 1 TABLET BY MOUTH AT BEDTIME blood glucose test strips (ACCU-CHEK NICKY) strip 1 each by In Vitro route 3 times daily As needed. blood glucose test strips (ASCENSIA AUTODISC ;ONE TOUCH ULTRA TEST ) strip 1 each by In Vitro route 3 times daily As needed. clopidogrel (PLAVIX) 75 MG tablet TAKE 1 TABLET BY MOUTH EVERY DAY fluticasone (FLONASE) 50 MCG/ACT nasal spray 1 spray by Nasal route daily as needed for Rhinitis glucose monitoring (FREESTYLE) kit 1 kit by Does not apply route daily hydrOXYzine (VISTARIL) 25 MG capsule TAKE 1 CAPSULE BY MOUTH EVERY 8 HOURS NEEDED FOR ITCHING isosorbide mononitrate (IMDUR) 30 MG extended release tablet TAKE 1 TABLET BY MOUTH EVERY MORNING loratadine (CLARITIN) 10 MG tablet TAKE 1 TABLET BY MOUTH EVERY DAY losartan (COZAAR) 25 MG tablet TAKE 1 TABLET BY MOUTH EVERY MORNING metFORMIN (GLUCOPHAGE-XR) 750 MG extended release tablet TAKE 2 TABLETS BY MOUTH EVERY DAY WITH DINNER mineral oil-hydrophilic petrolatum (HYDROPHOR) ointment Apply topically as needed. Misc. Devices (PULSE OXIMETER) MISC 1 each by Does not apply route once for 1 dose Misc. Devices (WHEELCHAIR) MISC 1 each by Does not apply route daily Motorized wheelchair OZEMPIC, 0.25 O (more content not included)...[facility]11-02-2021 Hospital Discharge instructions* Discharge Instr - Activity* Cary Cintron RN - 02/01/2021 11:22 AM EDT Wheel chair * Discharge Instr - Diet* Cary Cintron RN - 02/01/2021 11:23 AM EDT Good nutrition is important when healing from an illness, injury, or surgery. Follow any nutrition recommendations given to you during your hospital stay. If you were given an oral nutrition supplement while in the hospital, continue to take this supplement at home. You can take it with meals, in-between meals, and/or before bedtime. These supplements can be purchased at most local grocery stores, pharmacies, and chain [employer]-stores. If you have any questions about your diet or nutrition, call the hospital and ask for the dietitian. Heart healthy, carb cautious! * Additional Instructions* Elyse Whitney MD - 02/01/2021 Images from the original note were not included. GENERAL ZONES GREEN ZONE: All Clear- Your Symptoms Are Under Control No recurrence of symptoms that led to hospitalization Able to do usual activities No fever No chest pain No shortness of breath This Means You Should: Continue taking your medications as prescribed Continue activity as tolerated Keep all doctor appointments YELLOW ZONE: Caution Recurrence of symptoms that led to hospitalization Fever of 100 degrees or higher Increased fatigue or restlessness Intolerant side-effects of medications Uneasy feeling or that something is wrong This Means You Should: Call your doctor for further instructions Favian Trevizo MD PhD [id number] / [place] [address] RED ZONE: Medical Alert Severe or unrelieved shortness of breath at rest Unrelieved chest pain Confusion or you can't think clearly This Means You Should Call 911 Immediately Dizziness: Care Instructions Your Care Instructions Dizziness is the feeling of unsteadiness or fuzziness in your head. It is different than having vertigo, which is a feeling that the room is spinning or that you are moving or falling. It is also different from lightheadedness, which is the feeling that you are about to faint. It can be hard to know what causes dizziness. Some people feel dizzy when they have migraine headaches. Sometimes bouts of flu can make you feel dizzy. Some medical conditions, such as heart problemsor high blood pressure, can make you feel dizzy. Many medicines can cause dizziness, including medicines for high blood pressure, pain, or anxiety. If a medicine causes your symptoms, your doctor may recommend that you stop or change the medicine.If it is a problem with your heart, you may need medicine to help your heart work better. If there is no clear reason for your symptoms, your doctor may suggest watching and waiting for a while to see if the dizziness goes away on its own. Follow-up care is a [place] part of your treatment and safety. Be sure to make and go to all appointments, and call your doctor if you are having problems. It's also a good idea to know your test resultsand keep a list of the medicines you take. How can you care for yourself at home? If your doctor recommends or prescribes medicine, take it exactly as directed. Call your doctor if you think you are having a problem with your medicine. Do not drive while you feel dizzy. Try to prevent falls. Steps you can take include: ? Using nonskid mats, adding grab bars near the tub, and using night-lights. ? Clearing your home so that walkways are free of anything you might trip on. ? Letting family and friends know that you have been feeling dizzy. This will help them know how tohelp you. When should you call for help? Call 911 anytime you think you may need emergency care. For example, call if: You passed out (lost consciousness). You have dizziness along with symptoms of a heart attack. These may include: ? Chest pain or pressure, or a strange feeling in the chest. ? Sweating. ? Shortness of breath. ? Nausea or vomiting. ? Pain, pressure, or a strange feeling in the back, neck, jaw, or upper belly or in one or both shoulders or arms. ? Lightheadedness or sudden weakness. ? A fast or irregular heartbeat. You have symptoms of a stroke. These may include: ? Sudden numbness, tingling, weakness, or loss of movement in your face, arm, or leg, especially ononly one side of your body. ? Sudden vision changes. ? Sudden trouble speaking. ? Sudden confusion or trouble understanding simple statements. ? Sudden problems with walking or balance. ? A sudden, severe headache that is different from past headaches. Call your doctor now or seek immediate medical care if: You feel dizzy and have a fever, headache, or ringing in your ears. You have new or increased nausea and vomiting. Your dizziness does not go away or comes back. Watch closely for changes in your health, and be sure to contact your doctor if: You do not get better as expected. Where can you learn more? Go to [email or web address] and sign in to your [employer] account. Enter Q823 in the Search Health Information box to learn more about Dizziness: Care Instructions. If you do not have an account, please click on the "Sign Up Now" link. Current as of: September 30, 2020 Content Version: 13.0 [employer]. Care instructions adapted under license by [employer]. If you have questions about a medical condition or this instruction, always ask your healthcare professional. [employer] disclaims any warranty or liability for your use of this information. * Attachments The following attachments cannot be sent through Care Everywhere. * Dizziness (Angolan) * Lightheadedness or Faintness (Angolan) [facility] Phone: [phone] 895-952111-02-2021 History of Present illness Narrative* Elyse Whitney MD - 02/01/2021 8:33 AM EDT Images from the original note were not included. Hospitalist Progress Note 02/01/2021 8:33 AM [phone]: Please page me ([phone]) for patient care issues. [phone]: Please page [facility] night Hospitalist for any issues. Subjective: Admit Date: 01/30/2021 PCP: Favian Trevizo MD PhD Room#: 257/2574 Interval History: No overnight issues. Patient lying in bed no acute distress. States his symptoms have resolved. No focal neurological deficits. Denies chest pain, sob, abdominal pain, nausea, vomiting, diarrhea, constipation, fevers, or chills. ADULT DIET; Regular; 4 carb choices (60 gm/meal) Patient Vitals for the past 96 hrs (Last 3 readings): Weight 01/31/21 1954 266 lb (120.7 kg) 01/30/21 2254 266 lb (120.7 kg) 24HR INTAKE/OUTPUT: Intake/Output Summary (Last 24 hours) at 02/01/2021 0833 Last data filed at 02/01/2021 0750 Gross per 24 hour Intake Output 500 ml Net -500 ml Past Medical History: Diagnosis Date Bilateral leg edema chronic intermittent Blurry vision CAD (coronary artery disease) Cataract Chronic obstructive pulmonary disease ([facility]) 08/20/2018 CKD (chronic kidney disease) stage 2, GFR 60-89 ml/min 09/12/2019 Community acquired pneumonia 04/2016 Diabetic neuropathy ([facility]) Dizziness after head injury 05/2013 Hx of blood clots Hyperlipidemia Hypertension Morbid obesity ([facility]) 05/21/2018 Recurrent UTI 02/03/2018 Sepsis due to gram-negative UTI ([facility]) 12/11/2017 Sleep apnea Type II or unspecified type diabetes mellitus without mention of complication, not stated as uncontrolled Weakness generalized after head injury 05/2013 Medications: sodium chloride aspirin 81 mg Oral Daily atorvastatin 80 mg Oral QPM isosorbide mononitrate 30 mg Oral Daily cetirizine 5 mg Oral Daily losartan 25 mg Oral QAM senna 2 tablet Oral Daily tamsulosin 0.4 mg Oral Daily linagliptin 5 mg Oral Daily clopidogrel 75 mg Oral Daily sodium chloride flush 5-40 mL IntraVENous 2 times per day enoxaparin 40 mg SubCUTAneous Daily LABS: CBC: Recent Labs 01/30/21 1814 02/01/21 0303 WBC 6.3 5.2 RBC 4.82 4.69 HGB 14.6 14.0 HCT 41.6 41.7 MCV 86.4 89.0 RDW 12.7 12.0 PLT 114* 107* BMP: Recent Labs 01/30/21181302/01/21 0303 NA 134* 134* K 4.1 3.8 CL 102 106 CO2 23 23 BUN 12 12 CREATININE 0.86 0.90 GLUCOSE 130* 103* CALCIUM 9.1 8.5 ANIONGAP 10 5 LIVER PROFILE: Recent Labs 01/30/211813 AST 35 ALT 27 BILITOT 2.4* ALKPHOS 75 LABALBU 4.1 PROT 6.7 PT/INR: Recent Labs 01/30/211813 PROTIME 11.5 INR 1.1 CARDIAC ENZYMES: Recent Labs 01/30/211813 TROPONINI <0.012 Procalcitonin: Lab Results Component Value Date PROCAL <0.10 11/30/2018 COVID-19 PCR: No results for input(s): COVID19 in the last 72 hours. Objective: Vitals: BP 128/78 Pulse 62 Temp 97.7 F (36.5 C) (Temporal) Resp 18 Ht 6' 2" (1.88 m) Wt 266 lb (120.7 kg) SpO2 98% BMI 34.15 kg/m Pulse Ox: SpO2 Av.7 % Min: 98 % Max: 99 % Supplemental O2: O2 Flow Rate (L/min): 3 L/min General appearance: No apparent distress, appears stated age and cooperative with exam HEENT: Normal cephalic, atraumatic without obvious deformity. Pupils equal, round, and reactive to light. Extra ocular muscles intact. Conjunctivae/corneas clear. Neck: Supple, with full range of motion. No jugular venous distention. Trachea midline. No lymphadenopathy. Respiratory: Normal respiratory effort. Clear to auscultation, bilaterally without Rales/Wheezes/Rhonchi. Cardiovascular: Regular rate and rhythm with normal S1/S2 without murmurs, rubs or gallops. Abdomen: Soft, non-tender, non-distended with normal bowel sounds. No rebound or guarding. Musculoskeletal: No clubbing, cyanosis or edema bilaterally. Full range of motion without deformity. Skin: Skin color, texture, turgor normal. No rashes or lesions. Neurologic: Neurovascularly intact without any focal sensory/motor deficits. Cranial nerves: II-XIIintact, grossly non-focal. 5/5 strength of b/l upper and lower extremities. Vessel Liner strength equal bilaterally. Sensation intact in UE and LE bilaterally. Heel to dean normal. Finger-nose testing normal. No resting tremor noted. Assessment 1. Dizziness, rule out posterior CVA 2. CHIRAG 3. HTN 4. Type 2 DM with neuropathy 5. Hx of TIA 6. BPH 7. COPD 8. Obesity - BMI 34.15 Plan - NIHSS zero - MRI brain consistent with no acute process - Continue on ASA/Plavix/Statin - Recent MRA H/N and echo in September 2020 wnl --> no need to repeat at this time. If MRI brain is positive, will obtain further imaging -am labs, replace lytes prn -increase activity -DVT prophylaxis: [x] Lovenox [] Heparin [] SCDs [x] Encourage ambulation [] Already on Anticoagulation Advance Directive: Full Code Discharge planning: Anticipate discharge today with home health Elyse Whitney MD Division of Hospitalist Medicine Inpatient Medical Services PAGER: [phone] * Yolanda Hooker DTR - 02/01/2021 7:31 AM EDT Nutrition rescreen complete. Pt assigned a level one for nutrition care. * Nataliya Quevedo OT - 01/31/2021 10:08 AM EDT Occupational Therapy Occupational Therapy Initial Assessment Date: 01/31/2021 Patient Name: Shola Martinez : 1950 Date of Service: 01/31/2021 Having reviewed the treatment plan and goals for this patient, I certify that the plan of care below is medically necessary and appropriate. Discharge Recommendations: Home with Home health OT, Home with assist PRN OT Equipment Recommendations Equipment Needed: No Assessment Performance deficits / Impairments: Decreased functional mobility ;Decreased endurance;Decreased ADL status;Decreased balance;Decreased high-level IADLs Assessment: Pt admitted to ED on 01/30 with dizziness/lightheadedness and LE weakness. CT was negative for acute processes but MRI is pending. Pt on 2L initially but Spo2 is now WFL on RA. Prior to admission, pt lived alone and performed ADLs independently. Pt reported that he mainly uses his manual wc and electric scooter for mobility as he was told he must have 2 person assist for walking with FWW d/t safety concerns. Upon eval, pt required SBA for bed mobility, CGA for transfers and mobility, and SBA-Min A for ADLs Prognosis: Good Decision Making: Medium Complexity Exam: AM-PAC Assistance / Modification: CGA OT Education: OT Role;Plan of Care;Transfer Training Barriers to Learning: none REQUIRES OT FOLLOW UP: Yes Activity Tolerance Activity Tolerance: Patient limited by fatigue Safety Devices Safety Devices in place: Yes Type of devices: Left in bed;Gait belt;Patient at risk for falls;Nurse notified;Call light within reach;All fall risk precautions in place Patient Diagnosis(es): The encounter diagnosis was Lightheadedness. has a past medical history of Bilateral leg edema, Blurry vision, CAD (coronary artery disease), Cataract, Chronic obstructive pulmonary disease (HCC), CKD (chronic kidney disease) stage 2, GFR 60-89ml/min, Community acquired pneumonia, Diabetic neuropathy (HCC), Dizziness, Hx of blood clots, Hyperlipidemia, Hypertension, Morbid obesity ([facility]), Recurrent UTI, Sepsis due to gram-negative UTI ([facility]), Sleep apnea, Type II or unspecified type diabetes mellitus without mention of complication, not stated as uncontrolled, and Weakness generalized. has a past surgical history that includes Appendectomy (1989); hernia repair (1991); Tonsillectomy (1955); Foot surgery (Left); Cholecystectomy (08/2015); Coronary angioplasty (09/2016); other surgical history (Right, 07/30/2018); Cataract removal; and Eye surgery (Left, 08/27/2018). Restrictions Restrictions/Precautions Restrictions/Precautions: General Precautions, Fall Risk (ED tele) Required Braces or Orthoses?: No Subjective General Chart Reviewed: Yes Patient assessed for rehabilitation services?: Yes Family / Caregiver Present: No Subjective Subjective: Pt asleep but easily awoken to verbal stim. Pt aloof with therapists initially but improved during session. General Comment Comments: Per RN, pt OK to see. Patient Currently in Pain: Denies Vital Signs Patient Currently in Pain: Denies Social/Functional History Social/Functional History Lives With: Alone Type of Home: Apartment Home Layout: One level (3rd floor) Home Access: Level entry Bathroom Shower/Tub: Walk-in shower, Shower chair with back Bathroom Toilet: Handicap height Bathroom Equipment: Grab bars in shower, Grab bars around toilet Home Equipment: Rolling walker, Wheelchair-manual, Electric scooter ADL Assistance: Independent Homemaking Assistance: Independent Homemaking Responsibilities: Yes Ambulation Assistance: Needs assistance (with FWW but recently with wc) Transfer Assistance: Needs assistance Active Health And Safety Inspector: No Objective Vision: Impaired Vision Exceptions: Wears glasses at all times Hearing: Within functional limits Orientation Overall Orientation Status: Within Functional Limits Observation/Palpation Posture: Fair Observation: No lines or tubes once disconnected from ED tele for mobility. Spo2 remained WFL during session on RA. Balance Sitting Balance: Supervision (d/t light headedness) Standing Balance: Contact guard assistance Standing Balance Time: ~ 30 seconds Activity: static standing Comment: Pt stood at the EOB with the FWW and CGA. Pt posting legs on the bed for support initiallybut with postural cues pt was able to correct posture. Functional Mobility Functional - Mobility Device: Rolling Walker Activity: Other (~ 3 lateral steps at EOB) Assist Level: Contact guard assistance Functional Mobility Comments: Pt was able to take a few steps at EOB with the FWW. CGA was providedfor safety and balance however pt was able to manage the walker without physical assist. ADL Feeding: Modified independent Grooming: Setup UE Bathing: Setup LE Bathing: Stand by assistance UE Dressing: Setup LE Dressing: Minimal assistance Toileting: Stand by assistance Additional Comments: Pt had been performing toileting at bed level but is now able to complete at BSC level with SBA. Pt sat at EOB to don/doff shoes using figure 4 technique with SBA. Min A requiredfor donning pants.Typically, pt uses manual wc to manuever through his apartment in order to complete. Pt feels that he is close to baseline performance. Bed mobility Supine to Sit: Stand by assistance Sit to Supine: Stand by assistance Scooting: Stand by assistance Comment: Pt used momentum for assistance for bed mobility tasks with HOB slightly elevated and SBA for safety from therapist. Pt dizzy with positional changes which improved with additional time. Transfers Sit to stand: Contact guard assistance Stand to sit: Contact guard assistance Transfer Comments: Pt able to elevate from the bed to the FWW with CGA. Pt unsteady with some B LE pegging during transfer but no overt LOB. Cognition Overall Cognitive Status: WFL Sensation Overall Sensation Status: Impaired (bilateral LE neuropathy) LUE AROM (degrees) LUE AROM : WFL Left Hand AROM (degrees) Left Hand AROM: WFL RUE AROM (degrees) RUE AROM : WFL Right Hand AROM (degrees) Right Hand AROM: WFL LUE Strength Gross LUE Strength: WFL RUE Strength Gross RUE Strength: WFL Plan Plan Times per week: 4 visits Current Treatment Recommendations: Strengthening, Patient/Caregiver Education & Training, Home Management Training, Balance Training, Functional Mobility Training, Endurance Training, Safety Education & Training, Self-Care / ADL, Positioning, Equipment Evaluation, Education, & procurement Plan Comment: POC and goals established in collaboration with pt. AM-PAC Score AM-PAC Inpatient Daily Activity Raw Score: 19 (01/31/21955) AM-PAC Inpatient ADL T-Scale Score : 40.22 (01/31/21955) ADL Inpatient CMS 0-100% Score: 42.8 (01/31/21955) ADL Inpatient CMS G-Code Modifier : CK (01/31/21955) Goals Short term goals Time Frame for Short term goals: 4 visits Short term goal 1: Pt will perform functional mobility and transfers with FWW and Mod I. Short term goal 2: Pt will perform BSC level toileting with Mod I. Short term goal 3: Pt will perform full body ADls with Mod I. Short term goal 4: Pt will tolerate > 3 minutes of standing in preparation for functional activities. Patient Goals Patient goals : none stated Therapy Time Individual Concurrent Group Co-treatment Time In 900 Time Out 918 (co-eval with PT) Minutes 18 Nataliya Quevedo OT * Carmen Christensen, PT - 01/31/2021 10:02 AM EDT Physical Therapy Facility/Department: [facility] Initial Assessment NAME: Shola Pal Baileyzoraida : 1950 Date of Service: 01/31/2021 Having reviewed the treatment plan and goals for this patient, I certify that the plan of care below is medically necessary and appropriate. Discharge Recommendations: Home with Home health PT, Home with assist PRN PT Equipment Recommendations Equipment Needed: No Assessment Body structures, Functions, Activity limitations: Decreased functional mobility ;Decreased strength;Decreased safe awareness;Decreased endurance;Decreased balance;Decreased sensation;Decreased posture Assessment: Patient admitted 01/[address] negative for acute process and MRI pending. Patient presents with the above deficits limiting his functional independence. On evaluation patient required SBA for bed mobility, CGA for transfers and CGA for minimal ambulation with FWW. Patient islimited by rapid fatigue and lightheadedness. Patient should benefit from skilled PT to increase strength, endurance and safety with mobility. Prognosis: Good Decision Making: Medium Complexity History: Patient admitted 01/[address] negative for acute process and MRI pending. PMH listed below. Exam: AM-PAC Clinical Presentation: Patient has PMH as indicated below that contributes to his clinical presentation. At baseline patient lives alone in an apartment and uses a manual wheelchair and electric scooter primarily for mobility. Patient states that he has some friends in the apartment building that check on him regularly. Patient currently requires slight increase in assistance and is limited by increased lightheadedness and decreased safety. Recommend [facility] PT and assist PRN upon discharge. PT Education: Goals;PT Role;Plan of Care;Transfer Training;General Safety;Equipment;Gait Training;Functional Mobility Training;Injury Prevention REQUIRES PT FOLLOW UP: Yes Activity Tolerance Activity Tolerance: Patient limited by endurance;Patient limited by fatigue Activity Tolerance: lightheadedness Patient Diagnosis(es): The encounter diagnosis was Lightheadedness. has a past medical history of Bilateral leg edema, Blurry vision, CAD (coronary artery disease), Cataract, Chronic obstructive pulmonary disease (HCC), CKD (chronic kidney disease) stage 2, GFR 60-89ml/min, Community acquired pneumonia, Diabetic neuropathy ([facility]), Dizziness, Hx of blood clots, Hyperlipidemia, Hypertension, Morbid obesity ([facility]), Recurrent UTI, Sepsis due to gram-negative UTI ([facility]), Sleep apnea, Type II or unspecified type diabetes mellitus without mention of complication, not stated as uncontrolled, and Weakness generalized. has a past surgical history that includes Appendectomy (1989); hernia repair (1991); Tonsillectomy (1956); Foot surgery (Left); Cholecystectomy (08/2015); Coronary angioplasty (09/2016); other surgical history (Right, 07/30/2018); Cataract removal; and Eye surgery (Left, 08/27/2018). Restrictions Restrictions/Precautions Restrictions/Precautions: General Precautions, Fall Risk (ED tele) Required Braces or Orthoses?: No Vision/Hearing Vision: Impaired Vision Exceptions: Wears glasses at all times Hearing: Within functional limits Subjective General Chart Reviewed: Yes Patient assessed for rehabilitation services?: Yes Family / Caregiver Present: No Follows Commands: Within Functional Limits General Comment Comments: Per RN patient okay for therapy. Subjective Subjective: Patient lying in bed asleep and agreeable to therapy. Pain Screening Patient Currently in Pain: Denies Vital Signs Patient Currently in Pain: Denies Orientation Orientation Overall Orientation Status: Within Functional Limits Social/Functional History Social/Functional History Lives With: Alone Type of Home: Apartment Home Layout: One level (3rd floor) Home Access: Level entry Bathroom Shower/Tub: Walk-in shower, Shower chair with back Bathroom Toilet: Handicap height Bathroom Equipment: Grab bars in shower, Grab bars around toilet Home Equipment: Rolling walker, Wheelchair-manual, Electric scooter ADL Assistance: Independent Homemaking Assistance: Independent Homemaking Responsibilities: Yes Ambulation Assistance: Needs assistance (with FWW but recently with wc) Transfer Assistance: Needs assistance Active Health And Safety Inspector: No Cognition Cognition Overall Cognitive Status: WFL Objective Observation/Palpation Posture: Fair Observation: No lines or tubes once disconnected from ED tele for mobility. Spo2 remained WFL during session on RA. AROM RLE (degrees) RLE AROM: WFL Strength RLE Strength RLE: WFL Strength LLE Strength LLE: WFL Sensation Overall Sensation Status: Impaired (bilateral LE neuropathy) Bed mobility Supine to Sit: Stand by assistance Sit to Supine: Stand by assistance Scooting: Stand by assistance Comment: HOB slightly elevated and increased time to complete. Patient uses momentum for assitance and complains of lightheadedness with intial change in position that resolved with static sitting. Transfers Sit to Stand: Contact guard assistance Stand to sit: Contact guard assistance Comment: Patient completed x1 from EOB to FWW with CGA for safety. Initially demos posterior lean with posting on EOB and is able to correct with cues. Denies dizziness, however slight lightheadedness in standing. Ambulation Ambulation?: Yes Ambulation 1 Surface: level tile Device: Rolling Walker Assistance: Contact guard assistance Quality of Gait: Patient completed short lateral steps towards HOB with decreased step length and ema and slight unsteadiness. No acute LOB. Gait Deviations: Slow Ema;Increased CECY;Decreased step length Distance: 3'x1 Comments: Patient requires CGA for safety and cues for sequence with FWW. Rapid fatigue noted. Stairs/Curb Stairs?: No Balance Posture: Fair Sitting - Static: Good Sitting - Dynamic: Good;- Standing - Static: Fair;+ Standing - Dynamic: Fair;- Plan Plan Times per week: 6 visits Current Treatment Recommendations: Strengthening, Balance Training, Functional Mobility Training, Transfer Training, Gait Training, Endurance Training, Patient/Caregiver Education & Training, Equipment Evaluation, Education, & procurement, Positioning, Wheelchair Mobility Training Plan Comment: all goals and/or treatment were establsihed in collaboration with patient Safety Devices Type of devices: All fall risk precautions in place, Call light within reach, Gait belt, Patient atrisk for falls, Left in bed, Nurse notified Restraints Initially in place: No AM-PAC Score AM-PAC Inpatient Mobility Raw Score : 14 (01/31/211000) AM-PAC Inpatient T-Scale Score : 38.1 (01/31/211000) Mobility Inpatient CMS 0-100% Score: 61.29 (01/31/211000) Mobility Inpatient CMS G-Code Modifier : CL (01/31/211000) Goals Short term goals Time Frame for Short term goals: 6 visits Short term goal 1: Patient will complete bed mobility MOD I to increase independencE. Short term goal 2: Patient will complete functional transfers MOD I with LRAD in preparation for gait. Short term goal 3: Patient will ambulate 10' with FWW MOD I to increase endurance and safety. Short term goal 4: Patient will increase standing balance to fair+ to increase safety with functional activity. Short term goal 5: Patient will complete 1-2 sets/ 10 reps LE exercises to increase strength for functional activity. Patient Goals Patient goals : Patient did not state any. Therapy Time Individual Concurrent Group Co-treatment Time In 900 (co-eval with OT) Time Out 918 Minutes 18 Carmen Fermin, PT * Elyse Whitney MD - 01/31/2021 8:50 AM EDT Images from the original note were not included. Hospitalist Progress Note 01/31/2021 8:50 AM [phone]: Please page me ([phone]) for patient care issues. [phone]: Please page [facility] night Hospitalist for any issues. Subjective: Admit Date: 01/30/2021 PCP: Favian Trevizo MD PhD Room#: Interval History: No overnight issues. Patient lying in bed no acute distress. States that he feelsback to baseline. Worked with physical therapy prior to my exam. No focal neurological deficits. Denies chest pain, sob, abdominal pain, nausea, vomiting, diarrhea, constipation, fevers, or chills. ADULT DIET; Regular; 4 carb choices (60 gm/meal) Patient Vitals for the past 96 hrs (Last 3 readings): Weight 01/30/21 2254 266 lb (120.7 kg) 24HR INTAKE/OUTPUT: Intake/Output Summary (Last 24 hours) at 01/31/2021 0850 Last data filed at 01/30/2021 2119 Gross per 24 hour Intake 1000 ml Output Net 1000 ml Past Medical History: Diagnosis Date Bilateral leg edema chronic intermittent Blurry vision CAD (coronary artery disease) Cataract Chronic obstructive pulmonary disease (HCC) 08/20/2018 CKD (chronic kidney disease) stage 2, GFR 60-89 ml/min 09/12/2019 Community acquired pneumonia 04/2016 Diabetic neuropathy (HCC) Dizziness after head injury 05/2013 Hx of blood clots Hyperlipidemia Hypertension Morbid obesity (HCC) 05/21/2018 Recurrent UTI 02/03/2018 Sepsis due to gram-negative UTI (HCC) 12/11/2017 Sleep apnea Type II or unspecified type diabetes mellitus without mention of complication, not stated as uncontrolled Weakness generalized after head injury 05/2013 Medications: sodium chloride sodium chloride aspirin 81 mg Oral Daily atorvastatin 80 mg Oral QPM isosorbide mononitrate 30 mg Oral Daily cetirizine 5 mg Oral Daily losartan 25 mg Oral QAM senna 2 tablet Oral Daily tamsulosin 0.4 mg Oral Daily linagliptin 5 mg Oral Daily clopidogrel 75 mg Oral Daily sodium chloride flush 5-40 mL IntraVENous 2 times per day enoxaparin 40 mg SubCUTAneous Daily LABS: CBC: Recent Labs 01/30/211813 WBC 6.3 RBC 4.82 HGB 14.6 HCT 41.6 MCV 86.4 RDW 12.7 PLT 114* BMP: Recent Labs 01/30/211813 NA 134* K 4.1 CL 102 CO2 23 BUN 12 CREATININE 0.86 GLUCOSE 130* CALCIUM 9.1 ANIONGAP 10 LIVER PROFILE: Recent Labs 01/30/211813 AST 35 ALT 27 BILITOT 2.4* ALKPHOS 75 LABALBU 4.1 PROT 6.7 PT/INR: Recent Labs 01/30/211813 PROTIME 11.5 INR 1.1 CARDIAC ENZYMES: Recent Labs 01/30/211813 TROPONINI <0.012 Procalcitonin: Lab Results Component Value Date PROCAL <0.10 11/30/2018 COVID-19 PCR: No results for input(s): COVID19 in the last 72 hours. Objective: Vitals: BP (!) 106/59 Pulse 65 Temp 98.1 F (36.7 C) (Oral) Resp 20 Wt 266 lb (120.7 kg) SpO2 100% BMI 34.15 kg/m Pulse Ox: SpO2 Av % Min: 97 % Max: 100 % Supplemental O2: O2 Flow Rate (L/min): 2 L/min General appearance: No apparent distress, appears stated age and cooperative with exam HEENT: Normal cephalic, atraumatic without obvious deformity. Pupils equal, round, and reactive to light. Extra ocular muscles intact. Conjunctivae/corneas clear. Neck: Supple, with full range of motion. No jugular venous distention. Trachea midline. No lymphadenopathy. Respiratory: Normal respiratory effort. Clear to auscultation, bilaterally without Rales/Wheezes/Rhonchi. Cardiovascular: Regular rate and rhythm with normal S1/S2 without murmurs, rubs or gallops. Abdomen: Soft, non-tender, non-distended with normal bowel sounds. No rebound or guarding. Musculoskeletal: No clubbing, cyanosis or edema bilaterally. Full range of motion without deformity. Skin: Skin color, texture, turgor normal. No rashes or lesions. Neurologic: Neurovascularly intact without any focal sensory/motor deficits. Cranial nerves: II-XIIintact, grossly non-focal. 5/5 strength of b/l upper and lower extremities. Vessel Liner strength equal bilaterally. Sensation intact in UE and LE bilaterally. Heel to dean normal. Finger-nose testing normal. No resting tremor noted. Assessment 1. Dizziness, rule out posterior CVA 2. CHIRAG 3. HTN 4. Type 2 DM with neuropathy 5. Hx of TIA 6. BPH 7. COPD 8. Obesity - BMI 34.15 Plan - NIHSS zero on my exam at 8:45 am today - MRI brain pending - Continue on ASA/Plavix/Statin - Recent MRA H/N and echo in September 2020 wnl --> no need to repeat at this time. If MRI brain is positive, will obtain further imaging -am labs, replace lytes prn -increase activity -DVT prophylaxis: [x] Lovenox [] Heparin [] SCDs [x] Encourage ambulation [] Already on Anticoagulation Advance Directive: Full Code Discharge planning: Anticipate discharge within 24 hours pending continued clinical stability Elyse Whitney MD Division of Hospitalist Medicine Inpatient Medical Services PAGER: [phone] * Ruben Leslie - 01/31/2021 7:55 AM EDT Speech Language Pathology Patient passed the Nursing Swallowing Screening and is on a Regular diet. Completed speech orders per stroke protocol. Please reconsult as necessary. Ruben Leslie Student Speech-Language Pathologist documented in this [facility] Work Phone: [phone]) 198-953307-08-2021 NoteDischarge Summary Shola Martinze : 1950 ADMIT DATE: 09/30/2020 DISCHARGE DATE: 10/07/2020 PRIMARY CARE PHYSICIAN: Favian Trevizo MD PhD VISIT STATUS: Observation CODE STATUS: Full Code DISCHARGE DIAGNOSES: TIA Ataxia HTN DM2 Hyperlipidemia CAD HFpEF CHIRAG COPD BPH HOSPITAL COURSE: Shola is a 70 y.o. male who presented to the ED complaining of about a week long history of difficulty ambulating with fear that he would fall. He stated he has diabetic neuropathy, and is s/p multiple toe amputations on his L foot, so his gait is slightly unsteady at baseline. However he had been trying to exercise in his apartment and felt that he was leaning to the right and could not get himself up safely. He denied any increased numbness or tingling in his legs or feet, and denied weakness in his upper extremities. He also endorsed some nausea. He denied chest pain, SOB. Denied abdominal pain, vomiting, diarrhea, constipation, fevers, or chills. He was monitored on telemetry and underwent a stroke work up. He was seen by Neurology. TIA was diagnosed. Statin was increased and Plavix added. He was seen by PT/OT. SNF was recommended but insurance denied and recommended home with home care. This was arranged and he was discharged. SIGNIFICANT DIAGNOSTIC STUDIES: CT head, MRI brain, MRA head and neck, echocardiogram CONSULTANTS: Neurology RECOMMENDED NEXT STEPS: HHC. Continue aspirin and plavix. Statin increased. Follow up with PCP in one week. Physical Exam: General appearance: alert, cooperative and no distress Mental Status: oriented to person, place and time and normal affect Lungs: clear to auscultation bilaterally, normal effort Heart: regular rate and rhythm, no murmur Abdomen: soft, nontender, nondistended, bowel sounds present, no masses Extremities: no edema, redness, tenderness in the calves Skin: no gross lesions, rashes DISCHARGE MEDICATIONS: Shola Martinez Home Medication Instructions PEREZ:[id number] Printed on:10/07/20 1316 Medication Information Accu-Chek Softclix Lancets MISC TEST BLOOD SUGAR 3 TIMES A DAY. acetaminophen (TYLENOL) 325 MG tablet Take 2 tablets by mouth every 4 hours as needed for Pain or Fever albuterol sulfate HFA 108 (90 Base) MCG/ACT inhaler INHALE 2 PUFFS BY MOUTH EVERY 4 HOURS NEEDED FOR WHEEZING OR SHORTNESS OF BREATH WITH SPACER aspirin 81 MG chewable tablet Take 1 tablet by mouth daily Indications: Type 2 Diabetes atorvastatin (LIPITOR) 80 MG tablet Take 1 tablet by mouth every evening Indications: High Amount of Fats in the Blood blood glucose test strips (ACCU-CHEK NICKY) strip 1 each by In Vitro route 3 times daily As needed. clopidogrel (PLAVIX) 75 MG tablet Take 1 tablet by mouth daily fluticasone (FLONASE) 50 MCG/ACT nasal spray 1 spray by Nasal route daily as needed for Rhinitis furosemide (LASIX) 20 MG tablet Take 1 tablet by mouth daily as needed (lower extremity swelling) glucose monitoring kit (FREESTYLE) monitoring kit 1 kit by Does not apply route daily glucose monitoring kit (FREESTYLE) monitoring kit 1 kit by Does not apply route daily isosorbide mononitrate (IMDUR) 30 MG extended release tablet TAKE 1 TABLET BY MOUTH EVERY MORNING loratadine (CLARITIN) 10 MG tablet TAKE 1 TABLET BY MOUTH EVERY DAY losartan (COZAAR) 25 MG tablet TAKE 1 TABLET BY MOUTH EVERY MORNING metFORMIN (GLUCOPHAGE-XR) 750 MG extended release tablet TAKE 2 TABLETS BY MOUTH EVERY DAY WITH DINNER Misc. Devices (PRECISION SCALE) MISC Weight daily. Misc. Devices (PULSE OXIMETER) MISC 1 each by Does not apply route once for 1 dose Misc. Devices (WHEELCHAIR) MISC 1 each by Does not apply route daily Motorized wheelchair Multiple Vitamins-Minerals (CEROVITE SENIOR) TABS TAKE 1 TABLET BY MOUTH EVERY MORNING OZEMPIC, 0.25 OR 0.5 MG/DOSE, 2 MG/1.5ML SOPN INJECT 0.5 MG SUB-Q EVERY WEEK ON FRIDAYS tamsulosin (FLOMAX) 0.4 MG capsule TAKE 1 CAPSULE BY MOUTH EVERY DAY TRADJENTA 5 MG tablet TAKE 1 TABLET BY MOUTH EVERY DAY DIET: ADULT DIET; Regular; 4 carb choices (60 gm/meal) ACTIVITY: up with assist COMPLEXITY OF FOLLOW UP: [] Moderate Complexity: follow up within 7-14 calendar days (25617) [] Severe Complexity: follow up within 7 calendar days (29197) FOLLOW UP TESTING, PENDING RESULTS OR REFERRALS AT TRANSITIONAL CARE VISIT: [] Yes [] No PENDING STUDIES: No DISPOSITION: Home FACILITY/HOME CARE AGENCY NAME: Follow up with Favian Trevizo MD PhD [id number] [facility] [id number] Schedule an appointment as soon as possible for a visit in 1 week INSTRUCTIONS TO MA/SW: Please call patient on day after discharge (must document patient contacted within 2 business days of discharge). FOLLOW UP QUESTIONS FOR MA/SW: 1. Did you get medications filled and taking them as instructed from (more content not included)...[facility] Diagnosis Lightheadedness- Primary Dizziness and giddiness Lightheaded Dizziness and giddiness documented in this encounter [facility] Work Phone: Evaluation noteNo assessment information available [facility] Work Phone: Evaluation note* Diagnosis Onset Date Resolution Status Adult failure to thrive acut e [facility] Work Phone: Hospital course Narrative No data available for this section [facility] Hospital Discharge instructions No data available for this section [facility] Progress note No data available for this section [facility] Summary Purpose Family History No Family History Records Found Relationship Condition Age at Onset Recorded Date/T wilmer mother Diabetes mellitus Unknown Malignant neoplasm Unknown father Diabetes mellitus Unknown Advance Directives No Advanced Directives Records FoundDocuments on File Type Date Recorded Patient Real Estate Services Coordinator Expl anation Advance Directives and Living Will Power of Corporate Specialist Latest Code Status on File Code Status Date Activated Date Inactivated Comments Full Code 11/30/2018 3:23 PM Full Code 08/27/2018 10:38 AM 08/27/2018 2:59 PM Full Code 08/27/2018 7:43 AM 08/27/2018 10:38 AM Full Code 07/30/2018 3:42 PM 07/30/2018 8:09 PM Full Code 07/30/2018 10:55 AM 07/30/2018 3:42 PM Documents on File Type Date Recorded Patient Real Estate Services Coordinator Expl anation Advance Directives and Living Will Power of Corporate Specialist Latest Code Status on File Code Status Date Activated Date Inactivated Comments Full Code 11/30/2018 3:23 PM 12/04/2018 5:56 PM Full Code 08/27/2018 10:38 AM 08/27/2018 2:59 PM Full Code 08/27/2018 7:43 AM 08/27/2018 10:38 AM Full Code 07/30/2018 3:42 PM 07/30/2018 8:09 PM Full Code 07/30/2018 10:55 AM 07/30/2018 3:42 PM Latest Code Status on File Code Status Date Activated Date Inactivated Comments Full Code 09/12/2019 8:09 PM Full Code 11/30/2018 3:23 PM 12/04/2018 5:56 PM Documents on File Type Date Recorded Patient Real Estate Services Coordinator Expl anation ACP-Advance Directive ACP-Power of Corporate Specialist Latest Code Status on File Code Status Date Activated Date Inactivated Comments Full Code 09/12/2019 8:09 PM 09/16/2019 9:14 PM Latest Code Status on File Code Status Date Activated Date Inactivated Comments Full Code 09/30/2020 4:22 PM 10/07/2020 6:49 PM Full Code 09/12/2019 8:09 PM 09/16/2019 9:14 PM Latest Code Status on File Code Status Date Activated Date Inactivated Comments Full Code 01/31/2021 1:22 AM Full Code 09/30/2020 4:22 PM 10/07/2020 6:49 PM Documents on File Type Date Recorded Patient Real Estate Services Coordinator Expl anation Advance Directive(s) 02/14/2021 11:43 PM Advance Directive Response Recorded Date/ Time Living Will No October 03, 2022 6 :56am Power of Corporate Specialist No October 03, 2022 6:56am Advance Directive Response Recorded Date/ Time Living Will No November 08, 2022 4:59pm Power of Corporate Specialist No November 08 4:59pm Advance Directive Response Recorded Date/ Time Living Will No November 08, 2022 9:12pm Power of Corporate Specialist No November 08 9:12pm Discharge Instructions * Pharmacy* Kaley Gonzalez RPH - 12/03/2018 8:33 AM EDT * Discharge Instr - DAMON* Irene Hooker, EMA - 12/04/2018 8:08 AM EDT Continuity of Care Form Patient Name: Shola Martinez : 1950 Admit date: 11/30/2018 Discharge date: Code Status Order: Full Code Advance Directives: Advance Care Flowsheet Documentation Date/Time Healthcare Directive Type of Healthcare Directive Copy in Chart Healthcare Agent Appointed Healthcare Agent's Name Healthcare Agent's Phone Number 11/30/18 1534 No, patient does not have an advance directive for healthcare treatment -- -- -- -- -- Admitting Physician: Man Hardin DO PCP: Favian Trevizo MD PhD Discharging Nurse: Discharging Hospital Unit/Room#: 454/4541 Discharging Unit Phone Number: Emergency Contact: Extended Emergency Contact Information Primary Emergency Contact: marrylily [facility] Relation: Brother/Sister Past Surgical History: Past Surgical History: Procedure Laterality Date APPENDECTOMY 1989 CATARACT REMOVAL CHOLECYSTECTOMY 08/2015 CORONARY ANGIOPLASTY 09/2016 EYE SURGERY Left 08/27/2018 FOOT SURGERY Left great toe and next toe removed HERNIA REPAIR 1991 OTHER SURGICAL HISTORY Right 07/30/2018 PHACOemulisification pupilloplasty malyugin right posterior chamber intraocular lens TONSILLECTOMY 1955 Immunization History: Immunization History Administered Date(s) Administered Pneumococcal Conjugate 13-valent ([id number]) 08/10/2016 Pneumococcal Polysaccharide ([id number]) 07/22/2012, 10/16/2017 Td, unspecified formulation 08/31/1992 Tdap (Boostrix, Adacel) 05/27/2007, 01/17/2018 Active Problems: Patient Active Problem List Diagnosis Code Weakness generalized R53.1 Diabetic neuropathy ([facility]) E11.40 Diabetes mellitus type 2, uncontrolled ([facility]) E11.65 Constipation K59.00 Hyperlipidemia associated with type 2 diabetes mellitus ([facility]) E11.69, E78.5 Diabetes mellitus type 2 without retinopathy ([facility]) E11.9 Senile cataracts of both eyes H25.9 Blepharitis of both eyes H01.003, H01.006 Blurred vision, bilateral H53.8 Myopia of both eyes with astigmatism and presbyopia H52.13, H52.203, H52.4 Heterozygous MTHFR mutation C677T ([facility]) E72.12 Benign prostatic hyperplasia with incomplete bladder emptying N40.1, R39.14 CHIRAG (obstructive sleep apnea) G47.33 Essential hypertension I10 History of DVT (deep vein thrombosis) Z86.718 History of amputation of toe ([facility]) Z89.429 Morbid obesity ([facility]) E66.01 Chronic respiratory failure with hypoxia ([facility]) J96.11 Chronic diastolic heart failure ([facility]) I50.32 Dermatochalasis of both upper eyelids H02.831, H02.834 Small pupil H57.03 Lung nodule, multiple R91.8 Small pupil H57.03 Chronic obstructive pulmonary disease ([facility]CC) J44.9 Pneumonia J18.9 Isolation/Infection: Isolation No Isolation Patient Infection Status Infection Onset Added Last Indicated Last Indicated By Review Planned Expiration Resolved Resolved By None active Resolved C-diff Rule Out 12/01/18 12/01/18 Deyvi Hernandez RN 12/04/18 Deyvi Hernandez RN 12-01-2018 C diff ordered. Maintained enhanced C diff precautions until test has resulted or is cancelled. Nurse Assessment: Last Vital Signs: BP 132/67 Pulse 68 Temp 98.6 F (37 C) (Temporal) Resp 19 Ht 6' 2" (1.88 m) Wt 299 lb 8 oz (135.9 kg) SpO2 97% BMI 38.45 kg/m Last documented pain score (0-10 scale): Pain Level: 0 Last Weight: Wt Readings from Last 1 Encounters: 12/02/18 299 lb 8 oz (135.9 kg) Mental Status: oriented and alert IV Access: - None Nursing Mobility/ADLs: Walking Assisted Transfer Assisted Bathing Assisted Dressing Assisted Toileting Independent Feeding Independent Supervisor Baking Independent Med Delivery whole Wound Care Documentation and Therapy: Elimination: Continence: Bowel: Yes Bladder: Yes Urinary Catheter: None Colostomy/Ileostomy/Ileal Conduit: No Date of Last BM: 12/04/2018 Intake/Output Summary (Last 24 hours) at 12/04/2018 0808 Last data filed at 12/04/2018 0609 Gross per 24 hour Intake 110 ml Output 1450 ml Net -1340 ml I/O last 3 completed shifts: In: 110 [P.O.:100; I.V.:10] Out: 1450 [Urine:1450] Safety Concerns: At Risk for Falls Impairments/Disabilities: None Nutrition Therapy: Current Nutrition Therapy: - Oral Diet: Carb Control 4 carbs/meal (1800kcals/day) Routes of Feeding: Oral Liquids: No Restrictions Daily Fluid Restriction: no Last Modified Barium Swallow with Video (Video Swallowing Test): not done Treatments at the Time of Hospital Discharge: Respiratory Treatments: see mar Oxygen Therapy: is on oxygen at 4 L/min per nasal cannula. Ventilator: - No ventilator support Rehab Therapies: Physical Therapy and Occupational Therapy Weight Bearing Status/Restrictions: No weight bearing restirctions Other Medical Equipment (for information only, NOT a DME order): bedside commode Other Treatments: none Patient's personal belongings (please select all that are sent with patient): None RN SIGNATURE: MANAGEMENT/SOCIAL WORK SECTION Inpatient Status Date: 12/03/2018 Readmission Risk Assessment Score: Readmission Risk Risk of Unplanned Readmission: 14 Discharging to Facility/ Agency Name: [place] [address] Dialysis Facility (if applicable) Name: Address: Dialysis Schedule: Phone: Fax: Acid Dumper/Grain Manager signature: ICIAN SECTION Prognosis: Good Condition at Discharge: Stable Rehab Potential (if transferring to Rehab): Good Recommended Labs or Other Treatments After Discharge: CBC,BMP in one week Physician Certification: I certify the above information and transfer of Shola Martinez is necessary for the continuing treatment of the diagnosis listed and that he requires Jail Facility for less 30 days. Update Admission H&P: No change in H&P PHYSICIAN SIGNATURE: documented in this encounter* Attachments The following attachments cannot be sent through Care Everywhere. * Head Injury: Closed: General Info (Angolan) documented in this encounter* Discharge Instr - Lab* Kristy Hooker LPN - 09/14/2019 12:52 PM EDT Your physician has ordered skilled home care services for you. Your home care will be provided by: [facility] [phone] [facility] [phone] * Discharge Instr - DAMON* Praneeth Reyes MD - 09/14/2019 12:12 PM EDT Continuity of Care Form Patient Name: Shola Martinez : 1950 Admit date: 09/12/2019 Discharge date: Code Status Order: Full Code Advance Directives: Advance Care Flowsheet Documentation Date/Time Healthcare Directive Type of Healthcare Directive Copy in Chart Healthcare Agent Appointed Healthcare Agent's Name Healthcare Agent's Phone Number 09/12/19 5888 No, patient does not have an advance directive for healthcare treatment -- -- -- -- -- Admitting Physician: Shea Aguilar MD PCP: Favian Trevizo MD PhD Discharging Nurse: Discharging Hospital Unit/Room#: [id number] Discharging Unit Phone Number: Emergency Contact: Extended Emergency Contact Information Primary Emergency Contact: lily tuttle [facility] Relation: Brother/Sister Past Surgical History: Past Surgical History: Procedure Laterality Date APPENDECTOMY 1989 CATARACT REMOVAL CHOLECYSTECTOMY 08/2015 CORONARY ANGIOPLASTY 09/2016 EYE SURGERY Left 08/27/2018 FOOT SURGERY Left great toe and next toe removed HERNIA REPAIR 1992 OTHER SURGICAL HISTORY Right 07/30/2018 PHACOemulisification pupilloplasty malyugin right posterior chamber intraocular lens TONSILLECTOMY 1955 Immunization History: Immunization History Administered Date(s) Administered Influenza, High Dose (Fluzone 65 yrs and older) 01/09/2019 Pneumococcal Conjugate 13-valent (Neiyocf38) 08/10/2016 Pneumococcal Polysaccharide ([id number]) 07/22/2012, 10/16/2017 Td, unspecified formulation 08/31/1992 Tdap (Boostrix, Adacel) 05/27/2007, 01/17/2018, 09/02/2019 Active Problems: Patient Active Problem List Diagnosis Code Weakness generalized R53.1 Diabetic neuropathy ([facility]) E11.40 Diabetes mellitus type 2, uncontrolled ([facility]) E11.65 Constipation K59.00 Hyperlipidemia associated with type 2 diabetes mellitus ([facility]) E11.69, E78.5 Blepharitis of both eyes H01.003, H01.006 Blurred vision, bilateral H53.8 Myopia of both eyes with astigmatism and presbyopia H52.13, H52.203, H52.4 Heterozygous MTHFR mutation C677T ([facility]) E72.12 Benign prostatic hyperplasia with incomplete bladder emptying N40.1, R39.14 CHIRAG (obstructive sleep apnea) G47.33 Essential hypertension I10 UTI (urinary tract infection) N39.0 History of DVT (deep vein thrombosis) Z86.718 History of amputation of toe ([facility]) Z89.429 Class 2 severe obesity due to excess calories with serious comorbidity and body mass index (BMI) of37.0 to 37.9 in adult ([facility]) E66.01, Z68.37 Chronic respiratory failure with hypoxia ([facility]) J96.11 Chronic diastolic heart failure ([facility]) I50.32 Dermatochalasis of both upper eyelids H02.831, H02.834 Lung nodule, multiple R91.8 Small pupil H57.03 Chronic obstructive pulmonary disease ([facility]) J44.9 Pseudophakia of both eyes Z96.1 CKD (chronic kidney disease) stage 2, GFR 60-89 ml/min N18.2 UTI (urinary tract infection) due to Enterococcus N39.0, B95.2 Isolation/Infection: Isolation No Isolation Patient Infection Status Infection Onset Added Last Indicated Last Indicated By Review Planned Expiration Resolved Resolved By None active Resolved COVID-19 Rule Out 09/12/19 09/12/19 09/12/19 COVID-19 (Ordered) 09/13/19 Shruti Palmer RN 09/12/19 COVID Not Detected C-diff Rule Out 12/01/18 12/01/18 Deyvi Hernandez RN 12/04/18 Deyvi Hernandez RN 12-01-2018 C diff ordered. Maintained enhanced C diff precautions until test has resulted or is cancelled. Nurse Assessment: Last Vital Signs: BP 139/84 Pulse 75 Temp 98 F (36.7 C) (Temporal) Resp 20 Ht 6' 2" (1.88 m) Wt 282 lb 14.2 oz (128.3 kg) SpO2 98% BMI 36.32 kg/m Last documented pain score (0-10 scale): Pain Level: 0 Last Weight: Wt Readings from Last 1 Encounters: 09/12/19 282 lb 14.2 oz (128.3 kg) Mental Status: oriented, alert and coherent IV Access: - None Nursing Mobility/ADLs: Walking Assisted Transfer Assisted Bathing Assisted Dressing Assisted Toileting Assisted Feeding Independent Supervisor Baking Dependent Med Delivery whole Wound Care Documentation and Therapy: Elimination: Continence: Bowel: No Bladder: No Urinary Catheter: None Colostomy/Ileostomy/Ileal Conduit: No Date of Last BM: 09/14/2019 Intake/Output Summary (Last 24 hours) at 09/14/2019 1212 Last data filed at 09/14/2019 0417 Gross per 24 hour Intake 240 ml Output 600 ml Net -360 ml I/O last 3 completed shifts: In: 360 [P.O.:360] Out: 600 [Urine:600] Safety Concerns: At Risk for Falls Impairments/Disabilities: None Nutrition Therapy: Current Nutrition Therapy: - Oral Diet: Carb Control 4 carbs/meal (1800kcals/day) Routes of Feeding: Oral Liquids: Thin Liquids Daily Fluid Restriction: no Last Modified Barium Swallow with Video (Video Swallowing Test): not done Treatments at the Time of Hospital Discharge: Respiratory Treatments: none Oxygen Therapy: is on 2L nasal cannula PRN at night Ventilator: - No ventilator support Rehab Therapies: Physical Therapy and Occupational Therapy Weight Bearing Status/Restrictions: No weight bearing restirctions Other Medical Equipment (for information only, NOT a DME order): walker Other Treatments: Patient's personal belongings (please select all that are sent with patient): None RN SIGNATURE: CASE MANAGEMENT/SOCIAL WORK SECTION Inpatient Status Date: Observation Readmission Risk Assessment Score: Readmission Risk Risk of Unplanned Readmission: 0 Discharging to Facility/ Agency Name: [facility] Address: [address] [place] [id number] Dialysis Facility (if applicable) Name: Address: Dialysis Schedule: Phone: Fax: Acid Dumper/Grain Manager signature: PHYSICIAN SECTION Prognosis: Good Condition at Discharge: Stable Rehab Potential (if transferring to Rehab): Good Recommended Labs or Other Treatments After Discharge: PT/OT atleast three times daily. BMP/CBC on 09/19/2019 Physician Certification: I certify the above information and transfer of Shola Martinez is necessary for the continuing treatment of the diagnosis listed and that he requires Jail Facility for less 30 days. Update Admission H&P: No change in H&P PHYSICIAN SIGNATURE: flip Reyes MD on 09/16/2019 at 15:38 EDT documented in this encounter* Instructions* Danay Reeves PA - 01/06/2020 You were seen in the Emergency Department to day for your subjective fever. You had covid test donetoday. This may take 7 days to results, please self isolate until you receive the results of your test. If you develop any severe shortness of breath especially at rest please return to the emergencydepartment. Please return to the Emergency Department if you have any worsening of your symptoms, develop any new symptoms or would like to be re-evaluated. * Attachments The following attachments cannot be sent through Care Everywhere. * Coronavirus Disease (COVID-19): General Info (Angolan) * Coronavirus Disease (COVID-19): Isolation (Angolan) documented in this encounter* Attachments The following attachments cannot be sent through Care Everywhere. * Fall Prevention (Angolan) * Head Injury: Closed: General Info (Angolan) * Back: Strain (Angolan) documented in this encounter History of Present Illness * Jaky Anne RCP - 12/04/2018 12:24 PM EDT No home O2 done, PT to a SNF. * Cindy Barrera RD, LD - 12/03/2018 3:27 PM EDT Nutrition Assessment Type and Reason for Visit: Initial, Positive Nutrition Screen Nutrition Recommendations: 1. Continue with CHO control, 1500 ml/day fluid restriction. Na-130. Monitor for gradual improvement with fluid restriction. Pt will receive 300ml/tray. 2. Initiate yogurt BID per MNT protocol. Contains probiotics to aid with diarrhea. GI panel/C-diff results pending at this time. Monitor. 3. Monitor intakes, wts, and labs. RD will follow. Nutrition Assessment: Pt admit for PNA. Not feeling well. Admit with nausea, vomiting, diarrhea- suspected to be of viral etiology. GI panel is pending. C- diff pending Malnutrition Assessment: Malnutrition Status: At risk for malnutrition Context: Acute illness or injury Findings of the 6 clinical characteristics of malnutrition (Minimum of 2 out of 6 clinical characteristics is required to make the diagnosis of moderate or severe Protein Calorie Malnutrition based on AND/ASPEN Guidelines): 1. Energy Intake-Unable to assess(One meal intake recorded @75-100%, but pt reported decreased appetite for 4 days), 2. Weight Loss-No significant weight loss, 3. Fat Loss-No significant subcutaneous fat loss, 4. Muscle Loss-No significant muscle mass loss, 5. Fluid Accumulation-Moderate to severe fluid accumulation, Extremities 6. Vessel Liner Strength-Not measured Nutrition Risk Level: High Nutrient Needs: Estimated Daily Total Kcal: 3847-1089 kcals(25-30) Estimated Daily Protein (g): 86-103(1-1.2) Estimated Daily Total Fluid (ml/day): 2150 ml/day or per MD Nutrition Diagnosis: Problem: Altered GI function, Altered nutrition-related lab values Etiology: related to Acute injury/trauma, Endocrine dysfunction ? Signs and symptoms: as evidenced by GI abnormality, Nausea, Vomiting, Diarrhea, Diet history of poor intake, Patient report of, Lab values, Localized or generalized fluid accumulation Objective Information: Nutrition-Focused Physical Findings: +2 RLE, +2 LLE Wound Type: (abrasion to toes) Current Nutrition Therapies: Oral Diet Orders: Carb Control 5 Carbs/Meal, Fluid Restriction(1500 ml/day) Oral Diet intake: 76-100%(only one intake recorded, but pt reported decreased appetite) Oral Nutrition Supplement (ONS) Orders: None Anthropometric Measures: Ht: 6' 2" (188 cm) Current Body Wt: 299 lb (135.6 kg) Admission Body Wt: 299 lb (135.6 kg) Usual Body Wt: 290 lb (131.5 kg)(09/14/18) % Weight Change: , no wt loss [place] Body Wt: 190 lb (86.2 kg), % [place] Body 157% BMI Classification: BMI 35.0 - 39.9 Obese Class II Nutrition Interventions: Continue current diet, Start ONS Continued Inpatient Monitoring Nutrition Evaluation: Evaluation: Goals set Goals: Pt will receive and tolerate >50% of meals/snacks; Altered GI symptoms will be resolved Monitoring: Meal Intake, Supplement Intake, I&O, Weight, Pertinent Labs, Nausea or Vomiting, Diarrhea, Monitor Bowel Function Contact Number: [phone] * Hazel Orozco, OT - 12/03/2018 12:40 PM EDT Occupational Therapy Occupational Therapy Initial Assessment Date: 12/03/2018 Patient Name: Shola Martinez : 1950 Having reviewed the treatment plan and goals for this patient, I certify that the plan below is medically necessary and appropriate. Date of Service: 12/03/2018 Discharge Recommendations: Subacute/Jail Facility OT Equipment Recommendations Equipment Needed: No Assessment Performance deficits / Impairments: Decreased functional mobility ;Decreased ADL status;Decreased strength;Decreased safe awareness;Decreased cognition;Decreased endurance;Decreased balance;Decreasedhigh-level IADLs Assessment: Pt previously lived alone in an apartment, completing ADLs and IADLs at [facility] independently. Pt presents with increased risk for falls and further decline. Pt is expected to benefit from continued skilled OT services to address deficits and progress toward safe discharge. Prognosis: Good Decision Making: Medium Complexity History: Pt is 68yo male presenting with PNA and to r/o cdiff due to loose stool. PMH listed above. Exam: AM PAC Assistance / Modification: MIN to MOD ASSIST OT Education: OT Role;Plan of Care;Transfer Training;Equipment Barriers to Learning: cog,fatigue noted REQUIRES OT FOLLOW UP: Yes Activity Tolerance Activity Tolerance: Patient limited by fatigue;Treatment limited secondary to decreased cognition Safety Devices Safety Devices in place: Yes Type of devices: All fall risk precautions in place;Call light within reach;Gait belt;Patient at risk for falls;Nurse notified;Left in bed Restraints Initially in place: No Patient Diagnosis(es): The primary encounter diagnosis was Pneumonia due to organism. Diagnoses of Non-intractable vomiting with nausea, unspecified vomiting type, General weakness, and Elevated lactic acid level were also pertinent to this visit. has a past medical history of Bilateral leg edema, Blurry vision, CAD (coronary artery disease), Cataract, Chronic obstructive pulmonary disease (HCC), Community acquired pneumonia, Diabetic neuropathy ([facility]), Dizziness, Hx of blood clots, Hyperlipidemia, Hypertension, Morbid obesity ([facility]), Recurrent UTI, Sepsis due to gram-negative UTI ([facility]), Sleep apnea, Type II or unspecified type diabetes mellitus without mention of complication, not stated as uncontrolled, and Weakness generalized. has a past surgical history that includes Appendectomy (1989); hernia repair (1991); Tonsillectomy (1955); Foot surgery (Left); Cholecystectomy (08/2015); Coronary angioplasty (09/2016); other surgical history (Right, 07/30/2018); Cataract removal; and Eye surgery (Left, 08/27/2018). Restrictions Restrictions/Precautions Restrictions/Precautions: General Precautions, Fall Risk, Isolation, Contact Precautions(r/o CDIFF,4LO2) Required Braces or Orthoses?: No Subjective General Chart Reviewed: Yes Patient assessed for rehabilitation services?: Yes Family / Caregiver Present: No Subjective Subjective: c/o fatigue and weakness, not eager to participate with therapy but agreeable to assessment Patient Currently in Pain: Denies Vital Signs Patient Currently in Pain: Denies Oxygen Therapy SpO2: 99 % O2 Device: Nasal cannula O2 Flow Rate (L/min): 4 L/min Social/Functional History Social/Functional History Lives With: Alone Type of Home: Apartment Home Layout: One level Home Access: Elevator Bathroom Shower/Tub: Tub/Shower unit, Shower chair with back Bathroom Toilet: Standard Bathroom Equipment: Grab bars in shower Bathroom Accessibility: Accessible Home Equipment: Rolling walker(rollator ) Receives Help From: Family ADL Assistance: Independent Homemaking Assistance: Independent Homemaking Responsibilities: Yes Ambulation Assistance: Independent(with FWW household distances ) Transfer Assistance: Independent Active Health And Safety Inspector: No Patient's Health And Safety Inspector Info: SCAT Occupation: Retired Objective Vision: Within Functional Limits Hearing: Within functional limits Orientation Overall Orientation Status: Within Functional Limits Observation/Palpation Posture: Fair Observation: anterior leaning posture in standing requiring assist to correct to reduce risk of falls, B LE buckled with minimal mobility at EOB Balance Sitting Balance: Stand by assistance Standing Balance: Minimal assistance Functional Mobility Functional - Mobility Device: No device Activity: Other Assist Level: Minimal assistance Functional Mobility Comments: few side steps at EOB ADL Feeding: Modified independent Grooming: Stand by assistance UE Bathing: Contact guard assistance LE Bathing: Moderate assistance;Maximum assistance UE Dressing: Contact guard assistance LE Dressing: Moderate assistance;Maximum assistance Toileting: Moderate assistance(MIN A for transfer to [facility], assist for all parts due to fatigue) Additional Comments: pt limited by overall weakness/fatigue Coordination Movements Are Fluid And Coordinated: Yes Bed mobility Supine to Sit: Stand by assistance Sit to Supine: Stand by assistance Scooting: Stand by assistance Comment: no dizziness. Transfers Sit to stand: Minimal assistance Stand to sit: Contact guard assistance Transfer Comments: pt uses FWW typically however wanting to stand without device at this time, demonstrating increased fall risk due to decreased safety awareness. Vision - Basic Assessment Prior Vision: No visual deficits Cognition Overall Cognitive Status: Exceptions Arousal/Alertness: Delayed responses to stimuli Following Commands: Follows one step commands consistently Attention Span: Appears intact Memory: Appears intact Safety Judgement: Decreased awareness of need for assistance;Decreased awareness of need for safety Problem Solving: Assistance required to generate solutions;Assistance required to correct errors made;Decreased awareness of errors Insights: Decreased awareness of deficits Initiation: Requires cues for some Sequencing: Requires cues for some Cognition Comment: limited by fatigue Sensation Overall Sensation Status: WNL LUE AROM (degrees) LUE AROM : WNL RUE AROM (degrees) RUE AROM : WNL LUE Strength Gross LUE Strength: WFL LUE Strength Comment: 4/5 MMT RUE Strength Gross RUE Strength: WFL RUE Strength Comment: 4/5 MMT Plan Plan Times per week: 4 visits Times per day: Daily Current Treatment Recommendations: Strengthening, Balance Training, Functional Mobility Training, Endurance Training, Neuromuscular Re-education, Equipment Evaluation, Education, & procurement, Safety Education & Training, Cognitive/Perceptual Training, Self-Care / ADL, Home Management Training Plan Comment: Goals and POC were established in collaboration with patient. AM-PAC Score AM-PAC Inpatient Daily Activity Raw Score: 16 (12/03/18 123) AM-PAC Inpatient ADL T-Scale Score : 35.96 (12/03/18 123) ADL Inpatient CMS 0-100% Score: 53.32 (12/03/18 123) ADL Inpatient CMS G-Code Modifier : CK (12/03/181230) Goals Short term goals Time Frame for Short term goals: 4 visits Short term goal 1: Pt will complete LB ADLs at [facility]. Short term goal 2: Pt will complete functional transfers and mobility at [facility] with MOD INDEP. Short term goal 3: Pt will complete toileting tasks at [facility] with MOD INDEP. Short term goal 4: Pt will lidia >4 minutes of functional standing at FWW during ADLs at [facility]. Short term goal 5: Pt will lidia B UE ther exe to promote strength and activity tolerance for daily routine. Patient Goals Patient goals : improve indep with daily routine Therapy Time Individual Concurrent Group Co-treatment Time In 1123 Time Out 1133 Minutes 10 Hazel Orozco OT * Padmini Callejas, PT - 12/03/2018 11:59 AM EDT Physical Therapy Facility/Department: [facility] Initial Assessment NAME: Shola Martinez : 1950 Date of Service: 12/03/2018 Discharge Recommendations: Continue to assess pending progress, Subacute/Jail Facility PT Equipment Recommendations Equipment Needed: No Other: Pt owns FWW. Assessment Body structures, Functions, Activity limitations: Decreased functional mobility ;Decreased strength;Decreased safe awareness;Decreased endurance;Decreased balance Assessment: Pt presents with decreased functional mobility, decreased strength, decreased safety awareness, decreased endurance and impaired balance. Pt has decreased standing balance requiring 1 person assist at this time for transfers and minimal ambulation placing him at an increased risk of falling. Pt declines ambulation this date due to fatigue. Pt could benefit from skilled PT in order to address his decreased functional mobility, strength, balance and endurance. Prognosis: Good Decision Making: Medium Complexity History: Pt admitted with fatigue, weakness, N/VD and PNA. Exam: AM-PAC Clinical Presentation: Pt admitted with fatigue, weakness, N/VD and PNA. Pt has medical history as indicated above that contributes to his clinical presentation. At baseline patient is functionally independent with a FWW for household distances. Currrently patient is unsafe to return home alone seocndary to his increased need for assist and fall risks with mobility. PT Education: Goals;PT Role;Plan of Care;Transfer Training;General Safety;Injury Prevention;Functional Mobility Training Barriers to Learning: Pt has questionable insight which may impact his ability to learn. REQUIRES PT FOLLOW UP: Yes Activity Tolerance Activity Tolerance: Patient limited by fatigue;Patient limited by endurance Patient Diagnosis(es): The primary encounter diagnosis was Pneumonia due to organism. Diagnoses of Non-intractable vomiting with nausea, unspecified vomiting type, General weakness, and Elevated lactic acid level were also pertinent to this visit. has a past medical history of Bilateral leg edema, Blurry vision, CAD (coronary artery disease), Cataract, Chronic obstructive pulmonary disease (HCC), Community acquired pneumonia, Diabetic neuropathy (HCC), Dizziness, Hx of blood clots, Hyperlipidemia, Hypertension, Morbid obesity (HCC), Recurrent UTI, Sepsis due to gram-negative UTI ([facility]), Sleep apnea, Type II or unspecified type diabetes mellitus without mention of complication, not stated as uncontrolled, and Weakness generalized. has a past surgical history that includes Appendectomy (1989); hernia repair (1991); Tonsillectomy (1956); Foot surgery (Left); Cholecystectomy (08/2015); Coronary angioplasty (09/2016); other surgical history (Right, 07/30/2018); Cataract removal; and Eye surgery (Left, 08/27/2018). Restrictions Restrictions/Precautions Restrictions/Precautions: General Precautions, Fall Risk, Isolation, Contact Precautions(isolation until r/o Cdiff ) Required Braces or Orthoses?: No Vision/Hearing Vision: Within Functional Limits Hearing: Within functional limits Subjective General Chart Reviewed: Yes Patient assessed for rehabilitation services?: Yes Family / Caregiver Present: No General Comment Comments: Per RN patient okay for therapy. Subjective Subjective: Pt pleasant and agreeable to therapy. Pain Screening Patient Currently in Pain: Denies Vital Signs Patient Currently in Pain: Denies Orientation Orientation Overall Orientation Status: Within Functional Limits Social/Functional History Social/Functional History Lives With: Alone Type of Home: Apartment Home Layout: One level Home Access: Elevator Bathroom Shower/Tub: Tub/Shower unit, Shower chair with back Bathroom Toilet: Standard Bathroom Equipment: Grab bars in shower Bathroom Accessibility: Accessible Home Equipment: Rolling walker(rollator ) Receives Help From: Family ADL Assistance: Independent Homemaking Assistance: Independent Homemaking Responsibilities: Yes Ambulation Assistance: Independent(with FWW household distances ) Transfer Assistance: Independent Active Health And Safety Inspector: No Patient's Health And Safety Inspector Info: SCAT Occupation: Retired Objective Observation/Palpation Posture: Fair Observation: loose stool, no lines AROM RLE (degrees) RLE AROM: WFL AROM LLE (degrees) LLE AROM : WFL Strength RLE Comment: 4/5 Strength LLE Comment: 4/5 Sensation Overall Sensation Status: WFL(Denies numbness/tingling ) Bed mobility Supine to Sit: Unable to assess(On BSC when therapist entered ) Sit to Supine: Stand by assistance Scooting: Stand by assistance Comment: Denies dizziness with positional changes. Pt utilizes momemtum to complete sit to supine. Transfers Sit to Stand: Minimal Assistance(to no device - pt declined need for FWW to return to bed ) Stand to sit: Moderate Assistance(poor eccentric control ) Bed to Chair: Minimal assistance(B UE support on BSC armrests and EOB ) Comment: Pt typically utilizes a FWW for ambulation, however declined ambulating this session and declines FWW for transfer. Ambulation Ambulation?: Yes(3-4 steps from BSC to EOB with B UE support on EOB throughout, declined further ambulation at this time due to fatigue ) Balance Posture: Fair Sitting - Static: Fair;+ Sitting - Dynamic: Fair Standing - Static: Fair;- Standing - Dynamic: Poor;+ Plan Plan Times per week: 5 visits Times per day: Daily Current Treatment Recommendations: Strengthening, Balance Training, Functional Mobility Training, Transfer Training, Gait Training, Endurance Training, Safety Education & Training, Patient/Caregiver Education & Training, Equipment Evaluation, Education, & procurement Plan Comment: Goals and/or treatment plan were established in collaboration with patient. Safety Devices Type of devices: All fall risk precautions in place, Call light within reach, Gait belt, Patient atrisk for falls, Nurse notified, Left in bed [facility] Score [facility] Inpatient Mobility Raw Score : 15 (12/03/18 115) [facility] T-Scale Score : 39.45 (12/03/181150) Mobility Inpatient CMS 0-100% Score: 57.7 (12/03/181150) Mobility Inpatient CMS G-Code Modifier : CK (12/03/181150) [facility] Mobility Inpatient How much difficulty turning over in bed?: A Little How much difficulty sitting down on / standing up from a chair with arms?: A Lot How much difficulty moving from lying on back to sitting on side of bed?: A Little How much help from another person moving to and from a bed to a chair?: A Little How much help from another person needed to walk in hospital room?: A Lot How much help from another person for climbing 3-5 steps with a railing?: A Lot [facility] Inpatient Mobility Raw Score : 15 [facility] T-Scale Score : 39.45 Mobility Inpatient CMS 0-100% Score: 57.7 Mobility Inpatient CMS G-Code Modifier : CK Goals Short term goals Time Frame for Short term goals: 5 visits Short term goal 1: Pt will complete bed mobility with mod I in order to improve independence with mobility. Short term goal 2: Pt will complete functional transfers with FWW and mod I without LOB in order toimprove safety and prepare for ambulation. Short term goal 3: Pt will ambulate 100 ft with FWW and mod I without LOB in order to improve safety with gait. Short term goal 4: Pt will demonstrate fair - dynamic standing balance x 5 minutes in order to improve activity tolerance and safety with mobility. Short term goal 5: Pt will complete 2-3 sets / 10 reps LE exercises in order to improve strength for mobility. Patient Goals Patient goals : Pt states he wants to feel better Therapy Time Individual Concurrent Group Co-treatment Time In 1025 Time Out 1040 Minutes 15 Padmini Callejas PT * Shea Aguilar MD - 12/02/2018 1:16 PM EDT Hospitalist Progress Note 12/02/2018 1:16 PM [phone]: Please page pr @ [phone] for patient care issues. [phone]: Please page [facility] night Hospitalist for any issues. Subjective: Admit Date: 11/30/2018 PCP: Favian Trevizo MD PhD No overnight issues. Denies chest pain,abdominal pain, nausea, vomiting, diarrhea, constipation, fevers, or chills. Breathing improved, feels tired. DIET CARB CONTROL; Daily Fluid Restriction: 1500 ml Patient Vitals for the past 96 hrs (Last 3 readings): Weight 12/02/18 0349 299 lb 8 oz (135.9 kg) 12/01/18 0510 (!) 302 lb 14.4 oz (137.4 kg) 11/30/18 1013 290 lb (131.5 kg) Medications: dextrose ipratropium-albuterol 1 ampule Inhalation TID metFORMIN 1,500 mg Oral Dinner insulin lispro 0-6 Units Subcutaneous TID WC insulin lispro 0-3 Units Subcutaneous Nightly guaiFENesin 600 mg Oral BID atorvastatin 20 mg Oral QPM aspirin 81 mg Oral Daily losartan 25 mg Oral QAM linagliptin 5 mg Oral Daily isosorbide mononitrate 30 mg Oral Daily sodium chloride flush 10 mL Intravenous 2 times per day enoxaparin 40 mg Subcutaneous Daily azithromycin 500 mg Intravenous Q24H And cefTRIAXone (ROCEPHIN) IV 1 g Intravenous Q24H LABS: CBC: Recent Labs 11/30/18 1103 12/01/18 0514 WBC 6.8 6.5 RBC 4.74 4.10* HGB 14.5 12.7* HCT 42.0 37.2* MCV 88.6 90.8 RDW 12.4 12.5 PLT 103* 96* BMP: Recent Labs 11/30/18 1103 12/01/18 0514 12/01/182028 NA 133* 128* 128* K 4.1 4.1 -- CL 100 97* -- CO2 24 24 -- BUN 8 9 -- CREATININE 0.89 0.82 -- GLUCOSE 176* 189* -- CALCIUM 8.9 8.1* -- ANIONGAP 9 7 -- LIVER PROFILE: Recent Labs 11/30/18 1103 AST 42 ALT 43 BILITOT 2.3* ALKPHOS 67 LABALBU 3.9 PROT 6.8 PT/INR: No results for input(s): PROTIME, INR in the last 72 hours. CARDIAC ENZYMES: Recent Labs 11/30/18 1103 TROPONINI <0.012 Procalcitonin: Lab Results Component Value Date PROCAL <0.10 11/30/2018 Objective: Vitals: BP (!) 142/86 Pulse 89 Temp 98.6 F (37 C) (Temporal) Resp 20 Ht 6' 2" (1.88 m) Wt299 lb 8 oz (135.9 kg) SpO2 95% BMI 38.45 kg/m Pulse Ox: SpO2 Av.6 % Min: 93 % Max: 96 % Supplemental O2: O2 Flow Rate (L/min): 4 L/min General appearance: No apparent distress, appears stated age and cooperative with exam HEENT: Normal cephalic, atraumatic without obvious deformity. Pupils equal, round, and reactive to light. Extra ocular muscles intact. Conjunctivae/corneas clear. Neck: Supple, with full range of motion. No jugular venous distention. Trachea midline. No lymphadenopathy. Respiratory: Normal respiratory effort. Diminished AE anteriorly Cardiovascular: Regular rate and rhythm with normal S1/S2 without murmurs, rubs or gallops. Abdomen: Soft, non-tender, non-distended with normal bowel sounds. No rebound or guarding. Musculoskeletal: No clubbing, cyanosis or edema bilaterally. Full range of motion without deformity. Skin: Skin color, texture, turgor normal. No rashes or lesions. Neurologic: Neurovascularly intact without any focal sensory/motor deficits. Cranial nerves: II-XIIintact, grossly non-focal. Assessment and Plan: # Febrile illness, PNA workup neg, no high grade fever, normal WBC, procal normal ? Viral illness, D/C all abx, duoneb # Hyponatremia - fluid restriction # Class 2 obesity due to the excess calories # T2DM - on SSI , watch sugars All test and lab results reviewed Consult notes reviewed Am labs, replace lytes prn PT/OT -DVT prophylaxis: [] Lovenox [] Heparin [] SCDs [x] Encourage ambulation [] Already on Anticoagulation Advance Directive: Full Code Discharge planning: TBD SHEA AGUILAR MD MD Division of Hospitalist Medicine Inpatient Medical Services * Yolanda Hooker DTR - 12/02/2018 7:56 AM EDT Nutrition rescreen completed. Pt referred to RD. * Annie Cruz RN - 12/01/2018 2:18 PM EDT Spoke to Dr. Meléndez who verified he wants to give patient a bolus with sodium level of 128 and recheck sodium level at 2000. * Annie Cruz RN - 12/01/2018 2:[address] Meléndez paged regarding order for saline bolus with patient's current sodium level. Awaiting a return call for verification. * Gene Meléndez MD - 12/01/2018 9:35 AM EDT [facility] Progress Note 12/01/2018 09:35 AM Name: Shola Martinez IP Day: 0 Admit Date: 11/30/2018 10:11 AM PCP: Favian Trevizo MD PhD Code Status: Full Code Subjective: Dyspnea on exertion. No chest pain. Dry cough Physical Examination: Vitals: BP 124/67 Pulse 90 Temp 100.1 F (37.8 C) (Temporal) Resp 20 Ht 6' 2" (1.88 m) Wt (!) 302 lb 14.4 oz (137.4 kg) SpO2 97% BMI 38.89 kg/m Temp (24hrs), Av.3 F (37.4 C), Min:97.7 F (36.5 C), Max:100.2 F (37.9 C) General appearance: alert, cooperative and no distress Lungs: Diminished bilaterally, normal effort Heart: regular rate and rhythm, no murmur Abdomen: soft, nontender, nondistended, bowel sounds present, no masses Extremities: no edema, redness, tenderness in the calves Skin: no gross lesions, rash Mental Status: oriented to person, place and time and normal affect Data: I/O (24Hr): Intake/Output Summary (Last 24 hours) at 12/01/2018 1255 Last data filed at 12/01/2018 0510 Gross per 24 hour Intake 1550 ml Output 670 ml Net 880 ml Labs: Recent Labs 11/30/18 1103 12/01/18 0514 WBC 6.8 6.5 HGB 14.5 12.7* PLT 103* 96* Recent Labs 11/30/18 1103 12/01/18 0514 NA 133* 128* K 4.1 4.1 CL 100 97* CO2 24 24 BUN 8 9 CREATININE 0.89 0.82 GLUCOSE 176* 189* Recent Labs 11/30/18 1103 AST 42 ALT 43 BILITOT 2.3* ALKPHOS 67 Reviewed all pertinent Labs and Radiology reports Assessment and Plan: 1. LLL CAP 2. Early sepsis due to #1 3. Hyponatremia likely due to diarrhea 4. Lactic acidosis 5. Obesity 6. DM2 with more tightly / HbA1c 7.7 7. Nausea, vomiting, diarrhea / possible viral GE? 8. Hx of CAD 9. Hx of COPD 10. Hx of diabetic neuropathy 11. Hx of HTN 12. Hx of HPL 13. CHIRAG/OHS PLANS - Monitor hyponatremia closely. 1 L NS and maintenance fluid at 100 mL/hour for 24 hours - Start sliding scale insulin to correct hyperglycemia - Continue with ceftriaxone and azithromycin IV for today - Continue with home medications - DuoNeb t.i.d. and Mucinex b.i.d. DISPO: Expected discharged home when medically cleared * Shayy Devine RCP - 12/01/2018 9:19 AM EDT Patient Evaluation Form The patient is currently receiving qid duoneb Points 0 1 2 3 4 Points Totals Pulmonary Status (-/+) History Smoking history < 20 pack years Smoking history > 20 pack years Pulmonary Disorder (acute or chronic) Severe or Chronic with Exacerbation 3 Surgical Status No Surgery Trach PEG General Surgery Lower Abdominal Thoracic or Upper Abdominal Thoracic with Pulmonary Disorder 0 Chest X-ray Clear None Ordered Chronic Changes CXR results Pending Infiltrates, atelectasis, pleural effusion, or edema Infiltrates in more than one lobe Infiltrate + Atelectasis, &/or pleural effusion 2 Respiratory Pattern Regular, RR = 12-20 Increased, RR = 21-25 GREEN, irregular, or RR = 26-30 Decreased FEV1 or RR = 31-35 Severe SOB, used of of accessory muscles, or RR = > 35 0 Mental Status Alert, oriented, cooperative Confused, but follows commands Lethargic or un-able to follow commands Obtunded Comatose 0 Breath Sounds Clear to auscultation Decreased unilaterally or in bases only Decreased bilaterally Crackles or intermittent wheezes Wheezes 2 Cough Strong, spontaneous, & nonproductive Strong, spontaneous, & productive Weak, nonproductive Weak, productive or with wheezes No spontaneous cough or may require suctioning 0 Level of Activity Ambulatory Ambulatory with Assist Non-ambulatroy Paraplegic Quadriplegic 0 Triage 1 > 20 pts Triage 2 16-20 pts Triage 3 11- 15 pts Triage 4 6 - 10 pts Triage 5 0 - 5 pts TOTAL POINTS = 7 Triage Score = 4 PEF: FVC: FEV1: FVE1/FVC: Patient instructed and returned demonstration on use of MDI (with spacer, as appropriate) No Changing Therapy to tid duoneb documented in this encounter* Patricia Tovar RN - 09/16/2019 6:41 PM EDT Report called to [facility]. Pt belongings gathered and ready to go * Shea Aguilar MD - 09/15/2019 1:27 PM EDT Hospitalist Progress Note 09/15/2019 1:27 PM Throughout the encounter I wore an N95 MASK, FACE SHIELD [phone]: Please page me @ [phone] for patient care issues. [phone]: Please page [facility] night Hospitalist for any issues. Subjective: Admit Date: 09/12/2019 PCP: Favian Treivzo MD PhD No overnight issues. Denies chest pain, cough, sob, abdominal pain, nausea, vomiting, diarrhea, constipation, fevers, or chills. Feels lot better. DIET CARB CONTROL; Patient Vitals for the past 96 hrs (Last 3 readings): Weight 09/12/19 1936 282 lb 14.2 oz (128.3 kg) 09/12/19 1503 290 lb (131.5 kg) Medications: dextrose Vitamin D 5,000 Units Oral Daily [START ON 09/18/2019] Semaglutide(0.25 or 0.5MG/DOS) 0.5 mg Subcutaneous Weekly aspirin 81 mg Oral Daily atorvastatin 20 mg Oral QPM fluticasone 2 spray Each Nostril Daily isosorbide mononitrate 30 mg Oral Daily losartan 25 mg Oral QAM tamsulosin 0.4 mg Oral Daily sodium chloride flush 10 mL Intravenous 2 times per day enoxaparin 40 mg Subcutaneous Daily insulin lispro 0-12 Units Subcutaneous TID WC insulin lispro 0-6 Units Subcutaneous Nightly nystatin Topical TID LABS: CBC: Recent Labs 09/13/19 0420 09/14/19 0339 09/15/19 041 WBC 10.4 9.2 8.2 RBC 3.80* 4.19* 4.15* HGB 12.0* 13.1 13.0 HCT 34.7* 37.8* 37.4* MCV 91.2 90.1 89.9 RDW 12.9 12.8 12.7 PLT 149 173 198 BMP: Recent Labs 09/13/19 0420 09/14/19 0340 09/15/19 0412 NA 134* 133* 133* K 3.5 3.8 3.9 CL 103 100 100 CO2 19* 22 24 BUN 10 8 7 CREATININE 0.70 0.72 0.71 GLUCOSE 143* 139* 136* CALCIUM 7.3* 7.9* 8.2* ANIONGAP 13 12 10 LIVER PROFILE: Recent Labs 09/12/19 1539 AST 32 ALT 25 BILITOT 2.5* ALKPHOS 77 LABALBU 4.4 PROT 7.6 PT/INR: No results for input(s): PROTIME, INR in the last 72 hours. CARDIAC ENZYMES: Recent Labs 09/12/19 1539 TROPONINI <0.012 Procalcitonin: Lab Results Component Value Date PROCAL <0.10 11/30/2018 Objective: Vitals: BP 138/87 Pulse 68 Temp 98 F (36.7 C) (Temporal) Resp 18 Ht 6' 2" (1.88 m) Wt 282lb 14.2 oz (128.3 kg) SpO2 98% BMI 36.32 kg/m Pulse Ox: SpO2 Av.7 % Min: 98 % Max: 100 % Supplemental O2: O2 Flow Rate (L/min): 2 L/min General appearance: No apparent distress, appears stated age and cooperative with exam HEENT: Normal cephalic, atraumatic without obvious deformity. Pupils equal, round, and reactive to light. Extra ocular muscles intact. Conjunctivae/corneas clear. Neck: Supple, with full range of motion. No jugular venous distention. Trachea midline. No lymphadenopathy. Respiratory: Normal respiratory effort. Clear to auscultation, bilaterally without Rales/Wheezes/Rhonchi. Cardiovascular: Regular rate and rhythm with normal S1/S2 without murmurs, rubs or gallops. Abdomen: Soft, non-tender, non-distended with normal bowel sounds. No rebound or guarding. Musculoskeletal: No clubbing, cyanosis or edema bilaterally. Full range of motion without deformity. Skin: Candidal GROIN infection Neurologic: Neurovascularly intact without any focal sensory/motor deficits. Cranial nerves: II-XIIintact, grossly non-focal. Assessment UTI - due to Enterococcus fecalis -done with abx Generalized weakness Inability to ambulate Groin candidal infection Class 2 Obesity Past Medical History: Diagnosis Date Bilateral leg edema chronic intermittent Blurry vision CAD (coronary artery disease) Cataract Chronic obstructive pulmonary disease (HCC) 08/20/2018 CKD (chronic kidney disease) stage 2, GFR 60-89 ml/min 09/12/2019 Community acquired pneumonia 04/2016 Diabetic neuropathy ([facility]) Dizziness after head injury 05/2013 Hx of blood clots Hyperlipidemia Hypertension Morbid obesity ([facility]) 05/21/2018 Recurrent UTI 02/03/2018 Sepsis due to gram-negative UTI ([facility]) 12/11/2017 Sleep apnea Type II or unspecified type diabetes mellitus without mention of complication, not stated as uncontrolled Weakness generalized after head injury 05/2013 Plan : Referrel sent to [facility], done with abx, encouraged oral intake, COVID test negative All test and lab results reviewed Consult notes reviewed Am labs, replace lytes prn PT/OT -DVT prophylaxis: [x] Lovenox [] Heparin [] SCDs [x] Encourage ambulation [] Already on Anticoagulation Advance Directive: Full Code Discharge planning: TBD SHEA AGUILAR MD, MD Division of Hospitalist Medicine Inpatient Medical Services This report was created using the [employer] voice- activated system. Despiteprompt dictation and careful editorial review, there may be subtle contextual errors in this report, due to misrecognition of the spoken word. * Padmini Palmer, PT - 09/15/2019 9:39 AM EDT Physical Therapy Facility/Department: [facility] TELEMETRY Daily Treatment Note NAME: Shola Martinez : 1950 Date of Service: 09/15/2019 Discharge Recommendations: Continue to assess pending progress, Subacute/Jail Facility(if patient goes home [facility] PT) Assessment Assessment: Pt demonstrated need for increased assist with transfers and mobiity today with increased ataxic movement and decreased balance. Pt performs exercises at a quick pace decreaseing benefit of activity with cueing. Pt unsafe to return home and will benefit from recommendation for further therapy to improve safety and strength for increased independence. REQUIRES PT FOLLOW UP: Yes Activity Tolerance Activity Tolerance: Patient limited by fatigue;Patient limited by endurance Patient Diagnosis(es): The primary encounter diagnosis was Acute cystitis with hematuria. Diagnosesof Dehydration and Generalized weakness were also pertinent to this visit. has a past medical history of Bilateral leg edema, Blurry vision, CAD (coronary artery disease), Cataract, Chronic obstructive pulmonary disease ([facility]), CKD (chronic kidney disease) stage 2, GFR 60-89ml/min, Community acquired pneumonia, Diabetic neuropathy ([facility]), Dizziness, Hx of blood clots, Hyperlipidemia, Hypertension, Morbid obesity ([facility]), Recurrent UTI, Sepsis due to gram-negative UTI ([facility]), Sleep apnea, Type II or unspecified type diabetes mellitus without mention of complication, not stated as uncontrolled, and Weakness generalized. has a past surgical history that includes Appendectomy (1989); hernia repair (1991); Tonsillectomy (1955); Foot surgery (Left); Cholecystectomy (08/2015); Coronary angioplasty (09/2016); other surgical history (Right, 07/30/2018); Cataract removal; and Eye surgery (Left, 08/27/2018). Restrictions Restrictions/Precautions Restrictions/Precautions: General Precautions, Fall Risk(3L O2 PRN (per pt report for sleep apnea)) Required Braces or Orthoses?: No Subjective General Chart Reviewed: Yes Family / Caregiver Present: No Subjective Subjective: Willing to particiapte in PT Pain Screening Patient Currently in Pain: Denies Objective Bed mobility Supine to Sit: Modified independent Transfers Sit to Stand: Minimal Assistance;Moderate Assistance Stand to sit: Minimal Assistance;Moderate Assistance Comment: of 1 for support with pt requiring multiple attempts to complete with cueing to weightshift forward secondary to leaning posteriorly and posting on bed (causing to scoot) When weightshifts forward, comes up with less assist. Pt sits with assist for safety and control of descent secondary to poor hand placement Ambulation 1 Surface: level tile Device: Rolling Walker Assistance: Minimal assistance;Moderate assistance(of 1 for support) Quality of Gait: mild foward posture with short, scuffing reciprocal pattern and increased ataxic movements of B LE. Slow movement Distance: 20' x 1 Comments: O2 not worn per pt request. Reports only wears at justin. O2 sat post gait 98%. Nursing aware. Exercises Hip Flexion: 1 set / 20 reps in sitting B LE. 1 set / 10 reps in standing B LE with UE support and MIN A for balance Hip Abduction: 1 set / 20 reps in sitting B LE isometrically Knee Long Arc Quad: 1 set / 20 reps in sitting B LE individually Ankle Pumps: 1 set / 20 reps in sitting B LE Hip Adduction: 1 set / 20 reps in sitting B LE isometrically) Comments: Pt cued to slow pace of activity with poor follow thru AM-PAC AM-[facility] Mobility Inpatient How much difficulty turning over in bed?: None How much difficulty sitting down on / standing up from a chair with arms?: A Lot How much difficulty moving from lying on back to sitting on side of bed?: None How much help from another person moving to and from a bed to a chair?: A Lot How much help from another person needed to walk in hospital room?: A Lot How much help from another person for climbing 3-5 steps with a railing?: Total AM-[facility] Inpatient Mobility Raw Score : 15 AM-[facility] Inpatient T-Scale Score : 39.45 Mobility Inpatient CMS 0-100% Score: 57.7 Mobility Inpatient CMS G-Code Modifier : CK Goals Short term goals Time Frame for Short term goals: 4 visits Short term goal 1: Perform BLE active ex's 3sets/10reps to increase strength(not met) Short term goal 2: Ambulate with fww 100ft x2 with supervsion(not met) Short term goal 3: Transfers sit-stand with Mod I (not met) Short term goal 4: Bed moblity mod I with supine -sit(met) Patient Goals Patient goals : HOME Plan Plan Times per week: 3 visits Current Treatment Recommendations: (Cont ther ex and functional training) Safety Devices Type of devices: All fall risk precautions in place, Patient at risk for falls, Left in bed, Call light within reach, Nurse notified, Gait belt Therapy Time Individual Concurrent Group Co-treatment Time In 0825 Time Out 0851 Minutes 26 Timed Code Treatment Minutes: 23 Minutes(ther act and ther ex) Jessica Bose PTA (completed treatment) (updated [facility]) * Shea Aguilar MD - 09/14/2019 1:10 PM EDT Hospitalist Progress Note 09/14/2019 1:10 PM Throughout the encounter I wore an N95 MASK, FACE SHIELD [phone]: Please page me @ [phone] for patient care issues. [phone]: Please page [facility] night Hospitalist for any issues. Subjective: Admit Date: 09/12/2019 PCP: Favian Trevizo MD PhD No overnight issues. Denies chest pain, cough, sob, abdominal pain, nausea, vomiting, diarrhea, constipation, dysuria , fevers, or chills. Up in the chair, doing physical therapy, says she is feeling better today. DIET CARB CONTROL; Patient Vitals for the past 96 hrs (Last 3 readings): Weight 09/12/19 1936 282 lb 14.2 oz (128.3 kg) 09/12/19 1503 290 lb (131.5 kg) Medications: dextrose [START ON 09/18/2019] Semaglutide(0.25 or 0.5MG/DOS) 0.5 mg Subcutaneous Weekly aspirin 81 mg Oral Daily atorvastatin 20 mg Oral QPM fluticasone 2 spray Each Nostril Daily isosorbide mononitrate 30 mg Oral Daily losartan 25 mg Oral QAM tamsulosin 0.4 mg Oral Daily sodium chloride flush 10 mL Intravenous 2 times per day enoxaparin 40 mg Subcutaneous Daily cefTRIAXone (ROCEPHIN) IV 1 g Intravenous Q24H insulin lispro 0-12 Units Subcutaneous TID WC insulin lispro 0-6 Units Subcutaneous Nightly nystatin Topical TID LABS: CBC: Recent Labs 09/12/19 1539 09/13/19 0420 09/14/19 0339 WBC 12.7* 10.4 9.2 RBC 4.63 3.80* 4.19* HGB 14.6 12.0* 13.1 HCT 41.5 34.7* 37.8* MCV 89.7 91.2 90.1 RDW 12.6 12.9 12.8 PLT 192 149 173 BMP: Recent Labs 09/12/19 1539 09/13/19 0420 09/14/19 0340 NA 135 134* 133* K 4.0 3.5 3.8 CL 96* 103 100 CO2 22 19* 22 BUN 11 10 8 CREATININE 0.83 0.70 0.72 GLUCOSE 179* 143* 139* CALCIUM 9.0 7.3* 7.9* ANIONGAP 17 13 12 LIVER PROFILE: Recent Labs 09/12/19 1539 AST 32 ALT 25 BILITOT 2.5* ALKPHOS 77 LABALBU 4.4 PROT 7.6 PT/INR: No results for input(s): PROTIME, INR in the last 72 hours. CARDIAC ENZYMES: Recent Labs 09/12/19 1539 TROPONINI <0.012 Procalcitonin: Lab Results Component Value Date PROCAL <0.10 11/30/2018 Objective: Vitals: BP 139/84 Pulse 75 Temp 98 F (36.7 C) (Temporal) Resp 20 Ht 6' 2" (1.88 m) Wt 282lb 14.2 oz (128.3 kg) SpO2 98% BMI 36.32 kg/m Pulse Ox: SpO2 Av % Min: 98 % Max: 98 % Supplemental O2: O2 Flow Rate (L/min): 2 L/min General appearance: No apparent distress, appears stated age and cooperative with exam HEENT: Normal cephalic, atraumatic without obvious deformity. Pupils equal, round, and reactive to light. Extra ocular muscles intact. Conjunctivae/corneas clear. Neck: Supple, with full range of motion. No jugular venous distention. Trachea midline. No lymphadenopathy. Respiratory: Normal respiratory effort. Clear to auscultation, bilaterally without Rales/Wheezes/Rhonchi. Cardiovascular: Regular rate and rhythm with normal S1/S2 without murmurs, rubs or gallops. Abdomen: Soft, non-tender, non-distended with normal bowel sounds. No rebound or guarding. Musculoskeletal: No clubbing, cyanosis or edema bilaterally. Full range of motion without deformity. Skin: Skin color, texture, turgor normal. No rashes or lesions. Neurologic: Neurovascularly intact without any focal sensory/motor deficits. Cranial nerves: II-XIIintact, grossly non-focal. Assessment UTI - due to Enterococcus fecalis Generalized weakness Inability to ambulate Groin candidal infection Class 2 Obesity Past Medical History: Diagnosis Date Bilateral leg edema chronic intermittent Blurry vision CAD (coronary artery disease) Cataract Chronic obstructive pulmonary disease (HCC) 08/20/2018 CKD (chronic kidney disease) stage 2, GFR 60-89 ml/min 09/12/2019 Community acquired pneumonia 04/2016 Diabetic neuropathy (HCC) Dizziness after head injury 05/2013 Hx of blood clots Hyperlipidemia Hypertension Morbid obesity (HCC) 05/21/2018 Recurrent UTI 02/03/2018 Sepsis due to gram-negative UTI (HCC) 12/11/2017 Sleep apnea Type II or unspecified type diabetes mellitus without mention of complication, not stated as uncontrolled Weakness generalized after head injury 05/2013 Plan : Patient feeling better, continue ceftriaxone for now, elevated urine sensitivities All test and lab results reviewed Consult notes reviewed Am labs, replace lytes prn PT/OT, placement when bed available at SNF -DVT prophylaxis: [] Lovenox [] Heparin [] SCDs [x] Encourage ambulation [] Already on Anticoagulation Advance Directive: Full Code Discharge planning: TBD SHEA AGUILAR MD, MD Division of Hospitalist Medicine Inpatient Medical Services This report was created using the [employer] voice- activated system. Despiteprompt dictation and careful editorial review, there may be subtle contextual errors in this report, due to misrecognition of the spoken word. * Vanessa Landry, OT - 09/14/2019 12:40 PM EDT Occupational Therapy Occupational Therapy Initial Assessment Date: 09/14/2019 Patient Name: Shola Martinez : 1950 Having reviewed the treatment plan and goals for this patient, I certify that the plan of care below is medically necessary and appropriate. Date of Service: 09/14/2019 Discharge Recommendations: Subacute/Jail Facility Assessment Performance deficits / Impairments: Decreased functional mobility ;Decreased ADL status;Decreased safe awareness;Decreased endurance;Decreased balance;Decreased high-level IADLs Assessment: Pt was previously independent in ADLs, functional transfers and mobility; pt now requires min A for LB ADLs, sit<>stands and ~3 steps to/from BSC. Pt is limited by impaired balance and endurance. Pt should benefit from skilled OT services in order to increase safety and independence in occupational participation. Prognosis: Good Decision Making: Medium Complexity History: Pt admitted with nausea, diarrhea, worsening weakness and diarrhea. PMH is listed above. Exam: AM-PAC Assistance / Modification: min A OT Education: OT Role;Plan of Care;Transfer Training Barriers to Learning: none REQUIRES OT FOLLOW UP: Yes Activity Tolerance Activity Tolerance: Patient limited by fatigue Safety Devices Safety Devices in place: Yes Type of devices: All fall risk precautions in place;Call light within reach;Gait belt;Patient at risk for falls;Nurse notified;Left in bed Patient Diagnosis(es): The primary encounter diagnosis was Acute cystitis with hematuria. Diagnosesof Dehydration and Generalized weakness were also pertinent to this visit. has a past medical history of Bilateral leg edema, Blurry vision, CAD (coronary artery disease), Cataract, Chronic obstructive pulmonary disease (HCC), CKD (chronic kidney disease) stage 2, GFR 60-89ml/min, Community acquired pneumonia, Diabetic neuropathy (HCC), Dizziness, Hx of blood clots, Hyperlipidemia, Hypertension, Morbid obesity ([facility]), Recurrent UTI, Sepsis due to gram-negative UTI ([facility]), Sleep apnea, Type II or unspecified type diabetes mellitus without mention of complication, not stated as uncontrolled, and Weakness generalized. has a past surgical history that includes Appendectomy (1989); hernia repair (1991); Tonsillectomy (1955); Foot surgery (Left); Cholecystectomy (08/2015); Coronary angioplasty (09/2016); other surgical history (Right, 07/30/2018); Cataract removal; and Eye surgery (Left, 08/27/2018). Restrictions Restrictions/Precautions Restrictions/Precautions: General Precautions, Fall Risk(3L O2 PRN (per pt report for sleep apnea)) Required Braces or Orthoses?: No Subjective General Chart Reviewed: Yes Patient assessed for rehabilitation services?: Yes Family / Caregiver Present: No Subjective Subjective: Pt pleasant and cooperative. General Comment Comments: Per RN, matthew for pt to participate in OT eval. Patient Currently in Pain: Denies Vital Signs Patient Currently in Pain: Denies Social/Functional History Social/Functional History Lives With: Alone Type of Home: Apartment Home Layout: One level Home Access: Level entry Bathroom Shower/Tub: Tub/Shower unit Bathroom Toilet: Handicap height Bathroom Equipment: Grab bars in shower Bathroom Accessibility: Accessible Home Equipment: Rolling walker Receives Help From: Friend(s) ADL Assistance: Independent Homemaking Assistance: Needs assistance Homemaking Responsibilities: Yes Ambulation Assistance: Independent(FWW) Transfer Assistance: Independent Active Health And Safety Inspector: No Objective Vision: Within Functional Limits Hearing: Within functional limits Observation/Palpation Posture: Fair Observation: O2 doffed and at bedside (pt reports for sleep apnea), SpO2 >90%. Balance Sitting Balance: Modified independent (static sitting at EOB) Standing Balance: Minimal assistance(static/dynamic standing with fww) Functional Mobility Functional - Mobility Device: Rolling Walker Activity: Other(~3 steps to BSC) Assist Level: Minimal assistance Functional Mobility Comments: Pt ambulated with min A to/from BSC with instability, however, no true LOB. PERSONAL BANKER reported ambulating pt to bathroom yesterday, however, pt with significantly impaired balance in which pt had to be wheeled from bathroom with w/c. Toilet Transfers Toilet - Technique: Ambulating Equipment Used: Standard bedside commode Toilet Transfer: Minimal assistance Toilet Transfers Comments: at fww- pt required VC for safe hand placement as pt attempted to hold onto fww during transfers. ADL Feeding: Independent Grooming: Modified independent UE Bathing: Modified independent LE Bathing: Minimal assistance UE Dressing: Modified independent LE Dressing: Minimal assistance Toileting: Minimal assistance Bed mobility Supine to Sit: Supervision(HOB slightly elevated.) Sit to Supine: Supervision Scooting: Supervision Comment: Denied dizziness with changes in positioning. Transfers Sit to stand: Minimal assistance Stand to sit: Minimal assistance(assist for controlled descent) Transfer Comments: at fww- pt required VC for safe hand placement as pt attempted to hold onto fww during transfers. Cognition Overall Cognitive Status: WFL Sensation Overall Sensation Status: WFL(no complaints of numbness/tingling) LUE AROM (degrees) LUE AROM : WFL RUE AROM (degrees) RUE AROM : WFL LUE Strength Gross LUE Strength: WFL RUE Strength Gross RUE Strength: WFL Plan Plan Times per week: 5 visits Current Treatment Recommendations: Balance Training, Functional Mobility Training, Endurance Training, Safety Education & Training, Patient/Caregiver Education & Training, Equipment Evaluation, Education, & procurement, Self-Care / ADL Plan Comment: POC and goals were made in collaboration with the pt. AM-PAC Score AM-PAC Inpatient Daily Activity Raw Score: 21 (09/14/19 1235) AM-PAC Inpatient ADL T-Scale Score : 44.27 (09/14/19 1235) ADL Inpatient CMS 0-100% Score: 32.79 (09/14/19 1235) ADL Inpatient CMS G-Code Modifier : CJ (09/14/19 1235) Goals Short term goals Time Frame for Short term goals: 5 visits Short term goal 1: Pt will complete functional transfers and mobility with mod I. Short term goal 2: Pt will complete toileting including toilet transfer with mod I. Short term goal 3: Pt will complete LB ADLs with mod I. Short term goal 4: Pt will complete functional standing >3 minutes with mod I in order to increase occupational participation. Therapy Time Individual Concurrent Group Co-treatment Time In 1057 Time Out 1115 Minutes 18 Vanessa Landry, OT * Clair Stauffer - 09/14/2019 9:08 AM EDT Nutrition rescreen completed. Patient assigned a level 1. * Geo Hoffmann, PT - 09/13/2019 1:41 PM EDT Physical Therapy Facility/Department: [facility] TELEMETRY Initial Assessment NAME: Shola Martinez : 1950 HAVING REVIEWED THIS PATIENT TREATMENT AND GOALS ,I CERTIFY THAT THE PLAN OF CARE IS MEDICAL NECESSARY AND AND APPROPRIATE. Date of Service: 09/13/2019 Discharge Recommendations: Continue to assess pending progress, Subacute/Jail Facility(if patient goes home C PT) PT Equipment Recommendations Equipment Needed: No Assessment Body structures, Functions, Activity limitations: Decreased functional mobility ;Decreased strength;Decreased endurance;Decreased safe awareness;Decreased balance Assessment: Patient ambulated with fww 30ft with CGA with mild unstaedy ,transfers SBA thus benifitfrom skilled PT due to weakness and endurance. Prognosis: Good Decision Making: Medium Complexity History: Patient admitted with nausea and vomiting, generalized weakness, possible urinary tract infection, inability to ambulate Exam: AM-PAC Clinical Presentation: Patient has multiple medical comorbities along with decrease endurance with gait ,weakness ,impaired balnce thus benifit from skilled PT prior to d/c to home. PT Education: Goals;PT Role;Transfer Training;Gait Training Patient Education: Goals and/or treatment plan was established in collaberation with patient REQUIRES PT FOLLOW UP: Yes Activity Tolerance Activity Tolerance: Patient limited by endurance Patient Diagnosis(es): The primary encounter diagnosis was Acute cystitis with hematuria. Diagnosesof Dehydration and Generalized weakness were also pertinent to this visit. has a past medical history of Bilateral leg edema, Blurry vision, CAD (coronary artery disease), Cataract, Chronic obstructive pulmonary disease (HCC), CKD (chronic kidney disease) stage 2, GFR 60-89ml/min, Community acquired pneumonia, Diabetic neuropathy ([facility]), Dizziness, Hx of blood clots, Hyperlipidemia, Hypertension, Morbid obesity ([facility]), Recurrent UTI, Sepsis due to gram-negative UTI ([facility]), Sleep apnea, Type II or unspecified type diabetes mellitus without mention of complication, not stated as uncontrolled, and Weakness generalized. has a past surgical history that includes Appendectomy (1989); hernia repair (1991); Tonsillectomy (1955); Foot surgery (Left); Cholecystectomy (08/2015); Coronary angioplasty (09/2016); other surgical history (Right, 07/30/2018); Cataract removal; and Eye surgery (Left, 08/27/2018). Restrictions Restrictions/Precautions Restrictions/Precautions: General Precautions, Fall Risk Required Braces or Orthoses?: No Vision/Hearing Vision: Within Functional Limits Hearing: Within functional limits Subjective General Chart Reviewed: No Patient assessed for rehabilitation services?: Yes Family / Caregiver Present: No Follows Commands: Within Functional Limits Subjective Subjective: Willing to particiapte in PT Pain Screening Patient Currently in Pain: Denies Pain Assessment Pain Assessment: 0-10 Pain Level: 0 Vital Signs Patient Currently in Pain: Denies Orientation Orientation Overall Orientation Status: Within Functional Limits Social/Functional History Social/Functional History Lives With: Alone Type of Home: Apartment Home Layout: One level Home Access: Level entry Bathroom Shower/Tub: Tub/Shower unit Bathroom Toilet: Handicap height Bathroom Equipment: Grab bars in shower Bathroom Accessibility: Accessible Home Equipment: Rolling walker Receives Help From: Friend(s) ADL Assistance: Independent Homemaking Assistance: Needs assistance Homemaking Responsibilities: Yes Ambulation Assistance: Independent(FWW) Transfer Assistance: Independent Active Health And Safety Inspector: No Cognition Cognition Overall Cognitive Status: WFL Objective Observation/Palpation Posture: Fair Observation: IV AROM RLE (degrees) RLE AROM: WFL AROM LLE (degrees) LLE AROM : WFL Strength RLE Strength RLE: WFL Comment: 4/5 Strength LLE Strength LLE: WFL Comment: 4/5 Tone RLE RLE Tone: Normotonic Tone LLE LLE Tone: Normotonic Motor Control Gross Motor?: WFL Sensation Overall Sensation Status: WFL Bed mobility Rolling to Left: Modified independent Rolling to Right: Modified independent Supine to Sit: Supervision Sit to Supine: Supervision Scooting: Supervision Transfers Sit to Stand: Stand by assistance Stand to sit: Stand by assistance Ambulation Ambulation?: Yes More Ambulation?: No Ambulation 1 Surface: level tile Device: Rolling Walker Other Apparatus: O2(IV pole) Assistance: Stand by assistance;Contact guard assistance Quality of Gait: mild foward posture reciprocal pattern Gait Deviations: Slow Ema;Decreased step length;Decreased step height Distance: 30ft x2 Comments: mild dizziness after 2nd gait Stairs/Curb Stairs?: No Balance Posture: Fair Sitting - Static: Good Sitting - Dynamic: Good;- Standing - Static: Fair(with fww) Standing - Dynamic: Fair(with fww) Plan Plan Times per week: 4 visits Times per day: Daily Current Treatment Recommendations: Strengthening, Functional Mobility Training, Transfer Training, Gait Training, Balance Training, Endurance Training, Safety Education & Training, Patient/Caregiver Education & Training Plan Comment: Plan of care supervsion transferred to Rehab Services Dept physical therapist Safety Devices Type of devices: All fall risk precautions in place, Call light within reach, Positioning belt, Gait belt, Left in bed, Patient at risk for falls Restraints Initially in place: No OutComes Score [facility] Mobility Inpatient How much difficulty turning over in bed?: None How much difficulty sitting down on / standing up from a chair with arms?: A Little How much difficulty moving from lying on back to sitting on side of bed?: None How much help from another person moving to and from a bed to a chair?: A Little How much help from another person needed to walk in hospital room?: A Little How much help from another person for climbing 3-5 steps with a railing?: Total [facility] Inpatient Mobility Raw Score : 18 [facility] Inpatient T-Scale Score : 43.63 Mobility Inpatient CMS 0-100% Score: 46.58 Mobility Inpatient CMS G-Code Modifier : CK [facility] Score [facility] Inpatient Mobility Raw Score : 18 (09/13/191340) AM-PAC Inpatient T-Scale Score : 43.63 (09/13/191340) Mobility Inpatient CMS 0-100% Score: 46.58 (09/13/191340) Mobility Inpatient CMS G-Code Modifier : CK (09/13/191340) Goals Short term goals Time Frame for Short term goals: 4 visits Short term goal 1: Perform BLE active ex's 3sets/10reps to increase strength Short term goal 2: Ambulate with fww 100ft x2 with supervsion Short term goal 3: Transfers sit-stand with Mod I Short term goal 4: Bed moblity mod I with supine -sit Patient Goals Patient goals : HOME Therapy Time Individual Concurrent Group Co-treatment Time In 0954 Time Out 1008 Minutes 14 Geo Hoffmann PT * Shea Aguilar MD - 09/13/2019 12:28 PM EDT Hospitalist Progress Note 09/13/2019 12:29 PM Throughout the encounter I wore an N95 MASK, FACE SHIELD [id number]: Please page me @ [phone] for patient care issues. [phone]: Please page [facility] Hospitalist for any issues. Subjective: Admit Date: 09/12/2019 PCP: Favian Trevizo MD PhD No overnight issues. Says feels better today. Denies chest pain, cough, sob, abdominal pain, nausea, vomiting, diarrhea, constipation, fevers, or chills. DIET CARB CONTROL; Patient Vitals for the past 96 hrs (Last 3 readings): Weight 09/12/19 1936 282 lb 14.2 oz (128.3 kg) 09/12/19 1503 290 lb (131.5 kg) Medications: dextrose sodium chloride 75 mL/hr at 09/12/192128 [START ON 09/18/2019] Semaglutide(0.25 or 0.5MG/DOS) 0.5 mg Subcutaneous Weekly aspirin 81 mg Oral Daily atorvastatin 20 mg Oral QPM fluticasone 2 spray Each Nostril Daily isosorbide mononitrate 30 mg Oral Daily losartan 25 mg Oral QAM tamsulosin 0.4 mg Oral Daily sodium chloride flush 10 mL Intravenous 2 times per day enoxaparin 40 mg Subcutaneous Daily cefTRIAXone (ROCEPHIN) IV 1 g Intravenous Q24H insulin lispro 0-12 Units Subcutaneous TID WC insulin lispro 0-6 Units Subcutaneous Nightly nystatin Topical TID LABS: CBC: Recent Labs 09/12/19 1539 09/13/19 0420 WBC 12.7* 10.4 RBC 4.63 3.80* HGB 14.6 12.0* HCT 41.5 34.7* MCV 89.7 91.2 RDW 12.6 12.9 PLT 192 149 BMP: Recent Labs 09/12/19 1539 09/13/19 0420 NA 135 134* K 4.0 3.5 CL 96* 103 CO2 22 19* BUN 11 10 CREATININE 0.83 0.70 GLUCOSE 179* 143* CALCIUM 9.0 7.3* ANIONGAP 17 13 LIVER PROFILE: Recent Labs 09/12/19 1539 AST 32 ALT 25 BILITOT 2.5* ALKPHOS 77 LABALBU 4.4 PROT 7.6 PT/INR: No results for input(s): PROTIME, INR in the last 72 hours. CARDIAC ENZYMES: Recent Labs 09/12/19 1539 TROPONINI <0.012 Procalcitonin: Lab Results Component Value Date PROCAL <0.10 11/30/2018 Objective: Vitals: BP 131/64 Pulse 77 Temp 98.8 F (37.1 C) (Temporal) Resp 18 Ht 6' 2" (1.88 m) Wt 282 lb 14.2 oz (128.3 kg) SpO2 94% BMI 36.32 kg/m Pulse Ox: SpO2 Av.2 % Min: 93 % Max: 97 % Supplemental O2: O2 Flow Rate (L/min): 1 L/min General appearance: No apparent distress, appears stated age and cooperative with exam HEENT: Normal cephalic, atraumatic without obvious deformity. Pupils equal, round, and reactive to light. Extra ocular muscles intact. Conjunctivae/corneas clear. Neck: Supple, with full range of motion. No jugular venous distention. Trachea midline. No lymphadenopathy. Respiratory: Normal respiratory effort. Clear to auscultation, bilaterally without Rales/Wheezes/Rhonchi. Cardiovascular: Regular rate and rhythm with normal S1/S2 without murmurs, rubs or gallops. Abdomen: Soft, non-tender, non-distended with normal bowel sounds. No rebound or guarding. Musculoskeletal: No clubbing, cyanosis or edema bilaterally. Full range of motion without deformity. Skin: Groin rashNeurologic: Neurovascularly intact without any focal sensory/motor deficits. Cranial nerves: II-XII intact, grossly non-focal. Assessment UTI Generalized weakness Inability to ambulate Groin candidal infection Obesity Past Medical History: Diagnosis Date Bilateral leg edema chronic intermittent Blurry vision CAD (coronary artery disease) Cataract Chronic obstructive pulmonary disease ([facility]) 08/20/2018 CKD (chronic kidney disease) stage 2, GFR 60-89 ml/min 09/12/2019 Community acquired pneumonia 04/2016 Diabetic neuropathy ([facility]) Dizziness after head injury 05/2013 Hx of blood clots Hyperlipidemia Hypertension Morbid obesity ([facility]) 05/21/2018 Recurrent UTI 02/03/2018 Sepsis due to gram-negative UTI ([facility]) 12/11/2017 Sleep apnea Type II or unspecified type diabetes mellitus without mention of complication, not stated as uncontrolled Weakness generalized after head injury 05/2013 Plan : Continue empiric abx, follow urine cultures, oral intake encouraged All test and lab results reviewed Consult notes reviewed Am labs, replace lytes prn PT/OT Advance care planning has been discussed, total time spent is greater than 30 mins -DVT prophylaxis: [] Lovenox [] Heparin [] SCDs [x] Encourage ambulation [] Already on Anticoagulation Advance Directive: Full Code Discharge planning: TBD SHEA AGUILAR MD, Division of Hospitalist Medicine Inpatient Medical Services This report was created using the [employer] Speaking voice- activated system. Despiteprompt dictation and careful editorial review, there may be subtle contextual errors in this report, due to misrecognition of the spoken word. documented in this encounter Assessments Diagnosis Pneumonia due to organism- Primary Pneumonia due to other specified organism Non-intractable vomiting with nausea, unspecified vomiting type General weakness Other malaise and fatigue Elevated lactic acid level Other nonspecific abnormal serum enzyme levels Pneumonia Pneumonia, organism unspecified Diagnosis Injury of head, initial encounter Diagnosis Dehydration Acute cystitis with hematuria Acute cystitis Generalized weakness Other malaise and fatigue CKD (chronic kidney disease) stage 2, GFR 60-89 ml/min Chronic kidney disease, Stage II (mild) Class 2 severe obesity due to excess calories with serious comorbidity and body mass index (BMI) of 37.0 to 37.9 in adult (HCC) UTI (urinary tract infection) due to Enterococcus Urinary tract infection, site not specified Vitamin D deficiency Unspecified vitamin D deficiency Chronic respiratory failure with hypoxia ([facility]) Chronic respiratory failure Diagnosis Subjective fever Diagnosis Closed head injury, initial encounter Fall, initial encounter Lumbar strain, initial encounter Reason for Referral Status Reason Specialty Diagnoses / Procedures Referred By Contact Referred To Contact Open Specialty Services Required Otolaryngology Diagnoses Injury of head, initial encounter Tyler Bermudez MD [address] [place] [address] [facility] Ent [facility] [address] [place] [address] Scheduling Instructions [facility] [address] [address], [address] [place], [place] [address] F: [phone] Health Concerns Infection Onset Date Last Indicated Resolved Time COVID-19 Confirmed 02/15/2021 02/15/2021 Chief Complaint and Reason for Visit Chief Complaint LEFT RIB PAIN Chief Complaint LEFT RIB PAIN general illness Chief Complaint LEFT RIB PAIN general illness ADULT FTT, FUO Chief Complaint LEFT RIB PAIN general illness ADULT FTT, FUO ADULT FTT, FUO ADULT FTT, FUO ADULT FTT, FUO Reason for Visit Adult failure to thr marie Chief Complaint LEFT RIB PAIN general illness ADULT FTT, FUO ADULT FTT, FUO ADULT FTT, FUO ADULT FTT, FUO OSTEO Additional Source Comments (unrecognized sect ion and content) No Status Records FoundNo Status Records FoundNo Status Records FoundNo Status Records FoundNo Status Records FoundNo Status Records FoundNo Status Records FoundNo Status Records FoundNo Status Records Found INFORMATION SOURCE (unrecogn ized section and content) DATE CREATED AUTHOR 11/01/2017 [facility] DATE CREATED AUTHOR AUTHOR'S ORGANIZ ATION 09/08/2018 [facility] DATE CREATED AUTHOR AUTHOR'S ORGANIZ ATION 07/21/2020 [facility] DATE CREATED AUTHOR AUTHOR'S ORGANIZ ATION 03/06/2021 [facility] DATE CREATED AUTHOR AUTHOR'S ORGANIZ ATION 05/10/2021 [facility] DATE CREATED AUTHOR AUTHOR'S ORGANIZ ATION 05/24/2021 [facility] ([place] DATE CREATED AUTHOR AUTHOR'S ORGANIZ ATION 06/03/2021 [facility] DATE CREATED AUTHOR AUTHOR'S ORGANIZ ATION 05/31/2024 [facility] Reason for Visit (unrecogniz ed section and content) Reason Comments Fatigue Nausea Reason Comments Fall Reason Comments Other Stated he saw Pres T rump was in the hospital so he thought he should get checked out to see whats going on Fever States the highest i t got was 99.5 Reason Comments Fall Reason Comments Dizziness Pt. reports that he has been dizzy for the past few days and called his PCP and they told him to come to ED. Source Comments (unrecognize d section and content) In the event this informatio n is protected by the Federal Confidentiality of Alcohol and Drug Abuse Patient Records regulations: The Federal rules restrict any use of the information to criminally investigate or prosecute any alcohol or drug abuse patient.[facility] the event this information is protected by the Federal Confidentiality of Alcohol and Drug Abuse Patient Records regulations: The Federal rules restrict any use of the information to criminally investigate or prosecute any alcohol or drug abuse patient.[facility] Scheduled Active and Recently Administ ered Medications (unrecognized section and content) Medication Order 01/30/2021 01/31/2021 02/01/2021 0.9 % sodium chloride bolus (COMPLETED) 1,000 mL, IntraVENous, at 2,000 mL/hr, Administer over 0.5 Hours, ONCE, On Sun01/30/21 at 2046, For 1 dose 2048 (New Bag - Provider: Kirsten Noel, RN)2118 (Stopped - Provider: Kirsten Noel, RN) aspirin chewable tablet 81 mg 81 mg, Oral, DAILY, First dose on Sun01/31/21 at 0900 0918 (Given - Provider: Bhavani Amanda, EMA) 912 (Given - Provider: Cary Cintron, EMA) atorvastatin (LIPITOR) tablet 80 mg 80 mg, Oral, EVERY EVENING, First dose on Sun01/31/21 at 1800 0104 (Not Given - Provider: Adela Lopez RN - Reason: Patient/family refused)1800 (Due) cetirizine (ZYRTEC) tablet 5 mg 5 mg, Oral, DAILY, First dose on Sun01/31/21 at 0900, Substituted for Loratadine (CLARITIN). 0918 (Given - Provider: Bhavani Amanda RN) 911 (Given - Provider: Cary Cintron, EMA) clopidogrel (PLAVIX) tablet 75 mg 75 mg, Oral, DAILY, First dose on Sun01/31/21 at 0900 0918 (Given - Provider: Bhavani Amanda RN) 911 (Given - Provider: Cary Cintron, EMA) enoxaparin (LOVENOX) injection 40 mg 40 mg, SubCUTAneous, DAILY, First dose on Sun01/31/21 at 0900 0917 (Given - Provider: Bhavani Amanda RN) 911 (Given - Provider: Cary Cintron, EMA) isosorbide mononitrate (IMDUR) extended release tablet 30 mg 30 mg, Oral, DAILY, First dose on Sun01/31/21 at 0900, Do not crush or chew. 18 (Given - Provider: Bhavani Amanda RN) 911 (Given - Provider: Cary Cintron, EMA) linagliptin (TRADJENTA) tablet 5 mg 5 mg, Oral, DAILY, First dose on Sun01/31/21 at 0900 0918 (Given - Provider: Bhavani Amanda RN) 0913 (Given - Provider: Cary Cintron RN) losartan (COZAAR) tablet 25 mg 25 mg, Oral, EVERY MORNING, First dose on Sun01/31/21 at 0900 0919 (Given - Provider: Bhavani Amanda RN) 0913 (Given - Provider: Cary Cintron RN) senna (SENOKOT) tablet 17.2 mg 17.2 mg (2 tablet), Oral, DAILY, First dose on Sun01/31/21 at 0900 0918 (Given - Provider: Bhavani Amanda RN)0922 (Canceled Entry - Provider: Bhavani Amanda RN - Comment: duplicate entry) 09 (Given - Provider: Cary Cintron RN) sodium chloride flush 0.9 % injection 5-40 mL 5-40 mL, IntraVENous, EVERY 12 HOURS SCHEDULED (2 times per day), First dose on Sun01/31/21 at 0900, For Line Patency: Peripheral IV = 5 mL; Midline or Central Line = 10 mL/lumen. If following IV push medication, administer flush at same rate as the IV push. Flush volume is determined by type of infusion therapy being given. For non-viscous solutions use: Peripheral IV = 5 mL Midline or Central Line = 10 mL/lumen For viscous solutions (i.e. blood components, parenteral nutrition, contrast media, or after obtaining blood sample) use: Peripheral IV = 10 mL Midline or Central Line = 20 mL/lumen 0917 (Given - Provider: Bhavani Amanda RN)2100 (Due) 0913 (Given - Provider: Cary Cintron RN)2100 (Due) tamsulosin (FLOMAX) capsule 0.4 mg 0.4 mg, Oral, DAILY, First dose on Sun01/31/21 at 0900, Do not crush or break. 0922 (Given - Provider: Bhavani Amanda RN) 0912 (Given - Provider: Cary Cintron RN) PRN Medication Order 01/30/2021 01/31/2021 02/01/2021 0.9 % sodium chloride infusion 25 mL, IntraVENous, at 100 mL/hr, PRN, If patient receiving piggyback infusions without ordered maintenance IV fluids or with frequent/long duration piggyback infusions, Starting on Sun01/31/21 at 0108, Administer at the same rate as the piggyback being infused. acetaminophen (TYLENOL) suppository 650 mg(Linked Group 1) 650 mg, Rectal, EVERY 4 HOURS PRN, Pain Mild (1-3), Fever, Fever >100.5 (38 C), Starting on Sun01/31/21 at 0108, Use suppository if NPO or failed swallow screen. acetaminophen (TYLENOL) tablet 650 mg(Linked Group 1) 650 mg, Oral, EVERY 4 HOURS PRN, Pain Mild (1-3), Fever, Fever >100.5 (38 C), Starting on Sun01/31/21 at 0108, Do not use if NPO or failed swallow screen. albuterol sulfate HFA 108 (90 Base) MCG/ACT inhaler 2 puff 2 puff, Inhalation, EVERY 4 HOURS PRN, Wheezing, Starting on Sun01/31/21 at 0100 bisacodyl (DULCOLAX) EC tablet 5 mg 5 mg, Oral, DAILY PRN, Constipation, Starting on Sun01/31/21 at 0111, First line therapy for constipation. fluticasone (FLONASE) 50 MCG/ACT nasal spray 1 spray 1 spray, Nasal, DAILY PRN, Rhinitis, Starting on Sun01/31/21 at 0100 0918 (Given - Provider: Bhavani Amanda RN) hydrOXYzine (ATARAX) tablet 25 mg 25 mg, Oral, EVERY 6 HOURS PRN, Itching, Anxiety, Starting on Sun01/31/21 at 0107 labetalol (NORMODYNE;TRANDATE) injection 10 mg 10 mg, IntraVENous, EVERY 10 MIN PRN, High Blood Pressure, Starting on Sun01/31/21 at 0108, Administer 10 mg IV every 10 min if SBP is 210 mmHg or greater OR DBP is 120 mmHg or greater as long as HR is greater than 65bpm until goal BP has been achieved and to a max of 30 mg Notify provider if SBP is 210 mmHg or greater OR DBP is 120 mmHg or greater after 3 consecutive doses. If HR is less than 65 call MD for further orders ondansetron (ZOFRAN) injection 4 mg 4 mg, IntraVENous, EVERY 6 HOURS PRN, Nausea, Vomiting, Starting on Sun01/31/21 at 0108 perflutren lipid microspheres (DEFINITY) injection 1.65 mg 1.65 mg (1.5 mL), IntraVENous, IMG ONCE PRN, Other, Suboptimal Echo Image, Starting on Sun01/31/21 at 0120, For 72 hours, Administer up to 1.65 mg via slow IVP for suboptimal echocardiogram enhancement. May administer as concentrated dose or diluted in 8.5 mL of 0.9% sodium chloride for a total volume of 10 mL. May administer as divided doses to reach optimal image enhancement. sodium chloride flush 0.9 % injection 5-40 mL 5-40 mL, IntraVENous, PRN, Line Care, After every IV line use, Starting on Sun01/31/21 at 0108, For Line Patency: Peripheral IV = 5 mL; Midline or Central Line = 10 mL/lumen. If following IV push medication, administer flush at same rate as the IV push. Flush volume is determined by type of infusion therapy being given. For non-viscous solutions use: Peripheral IV = 5 mL Midline or Central Line = 10 mL/lumen For viscous solutions (i.e. blood components, parenteral nutrition, contrast media, or after obtaining blood sample) use: Peripheral IV = 10 mL Midline or Central Line = 20 mL/lumen sodium chloride flush 0.9 % injection 5-40 mL 5-40 mL, IntraVENous, PRN, Line Care, Per [employer] Attendant Request, Starting on Sun01/31/21 at 0120, For 72 hours, May use order for Line Care after every IV line use and Agitated Saline Bubble Study. Administration for Bubble Study per vocational horticulture instructor request for only. Remove 1 mL 0.9% sodium chloride from 10 mL syringe for creating agitated saline. If following IV push medication, administer flush at same rate as the IV push. Flush volume is determined by type of infusion therapy being given. , For non-viscous solutions use: Peripheral IV = 5 mL Midline or Central Line = 10 mL/lumen For viscous solutions (i.e. blood components, parenteral nutrition, contrast media, or after obtaining blood sample) use: Peripheral IV = 10 mL Midline or Central Line = 20 mL/lumen Linked Groups Order Group 1: acetaminophen (TYLENOL) tablet 650 mgJump to med 650 mg, Oral, EVERY 4 HOURS PRN, Pain Mild (1-3), Fever, Fever >100.5 (38 C), Starting on Sun01/31/21 at 0108
Do not use if NPO or failed swallow screen.
Or acetaminophen (TYLENOL) suppository 650 mgJump to med 650 mg, Rectal, EVERY 4 HOURS PRN, Pain Mild (1-3), Fever, Fever >100.5 (38 C), Starting on 01/31/21 at 0108
Use suppository if NPO or failed swallow screen.
Care Teams (unrecognized sec tion and content) Team Status: Active Member Role Status Dates Jessica Alvarez BANANA GRADER, BANANA GRADER-C Primary Care Provider Act marie Team Status: Active Member Role Status Dates Jessica Alvarez BANANA GRADER, BANANA GRADER-C Primary Care Provider Act marie Dr. Yifan Meza , Emergency Provider Active Dr. Bridgett Villagomez MD Admit Provider, Other Provider Active Dr. Tanika Kunz MD Attending Provider, Other Prov ider Active Team Status: Inactive Member Role Status Dates Dr. Eduar Donahue DO Attending Provider, Emergency P fady Active Jessica Alvarez BANANA GRADER, BANANA GRADER-C Primary Care Provider Act marie Team Status: Inactive Member Role Status Dates Jessica Alvarez BANANA GRADER, BANANA GRADER-C Primary Care Provider Act marie Dr. Jann Hoffmann MD Emergency Provider Active Team Status: Inactive Member Role Status Dates Jessica Alvarez BANANA GRADER, BANANA GRADER-C Primary Care Provider Act marie Dr. Yifan Meza , Emergency Provider Active Dr. Bridgett Villagomez MD Admit Provider, Other Provider Active Dr. Tanika Kunz MD Attending Provider Active Mobile Game Engineer Relationship Specialty Start Date End Date Danie Sawyer MD PCP - General Internal Medicine 01/29/14 Team Status: Inactive Member Role Status Dates Dr. Eduar Donahue , Emergency Provider Active Jessica Alvarez BANANA GRADER, BANANA GRADER-C Primary Care Provider Act amrie Team Status: Active Member Role Status Dates Jessica Alvarez BANANA GRADER, BANANA GRADER-C Primary Care Provider Act marie Dr. Yifan Meza , Emergency Provider Active Dr. Bridgett Villagomez MD Admit Provider, Attending Prov ider Active Team Status: Inactive Member Role Status Dates Jessica Alvarez BANANA GRADER, BANANA GRADER-C Primary Car e Provider, Attending Provider, Referring Provider Active Team Status: Inactive Member Role Status Dates Jessica Alvarez BANANA GRADER, BANANA GRADER-C Primary Care Provider Act marie Dr. Jann Hoffmann MD Attending Provider, Emergency Pr brandon Active Care Team (unrecognized sect ion and content) Care Team Personnel Name: DANAY CASTILLO MD Position: P4 Physician - Primary Care Member Role: Primary Care Physician Address: Address: [address] [place] [address]- Care Team Related Persons Name: MARGE TUTTLE Goals (unrecognized section and content) Goals may be documented in a n alternate section FOR RECORDS PERTAINING TO PATIENTS WHO ARE OR HAVE BEEN ENROLLED IN A CHEMICAL DEPENDENCY/SUBSTANCEABUSE PROGRAM, SOME INFORMATION MAY BE OMITTED. This clinical summary was aggregated from multiple sources. Caution should be exercised in using it in the provision of clinical care. This summary normalizes information from multiple sources, and as a consequence, information in this document may materially change the coding, format and clinical context of patient data. In addition, data may be omitted in some cases. CLINICAL DECISIONS SHOULD BE BASED ON THE PRIMARY CLINICAL RECORDS. [facility] [employer] provides no warranty or guarantee of the accuracy or completeness of information in this document.
[2025-02-13 23:28] VITALS: BP 138/88; PULSE 81; RESP 15; TEMP 37; O2SAT 99
[2025-02-13] MEDS: Lidocaine 2% /Epi 1:100 (50ml) 50 ML Vial INFILT (23:36)
== END 2025-02-13 23:45 | disposition home or self-care (01) ==
PROVIDERS: Emergency Provider Student in an Organized Health Care Education/Training Program; PCP Nurse Practitioner Adult Health; Visit Provider Student in an Organized Health Care Education/Training Program
DX: S01.81XA Laceration without foreign body of other part of head, initial encounter (principal); J44.9 Chronic obstructive pulmonary disease, unspecified; E11.22 Type 2 diabetes mellitus with diabetic chronic kidney disease; N18.2 Chronic kidney disease, stage 2 (mild); I12.9 Hypertensive chronic kidney disease with stage 1 through stage 4 chronic kidney disease, or unspecified chronic kidney disease; E78.5 Hyperlipidemia, unspecified; Z87.891 Personal history of nicotine dependence; W05.2XXA Fall from non-moving motorized mobility scooter, initial encounter; Z79.02 Long term (current) use of antithrombotics/antiplatelets; Z79.899 Other long term (current) drug therapy; Z79.84 Long term (current) use of oral hypoglycemic drugs; Z23 Encounter for immunization
CPT/HCPCS: 12011; 70450; 70486; 72125; 90471; 90715; 99285

== ENCOUNTER 2025-03-18 01:57 | Emergency (ER) | payer OTHER, SELFPAY ==
[2025-03-18 01:57] VITALS: BP 151/88; PULSE 94; RESP 19; TEMP 37.1; O2SAT 97; BMI 34.0
--- NOTE | 2025-03-18 02:25 | RAD_ITS ---
PROCEDURE: CHEST 1 VIEW (PORTABLE) 03/18/2025 REASON FOR EXAM: COUGH TECHNIQUE: Frontal view of the chest. COMPARISON: 05/15/2024. FINDINGS: Increased bilateral basilar atelectatic airspace disease/infiltrates, more prominent on the left side. There is no demonstrated pleural abnormality. Enlarged cardiac silhouette. Normal mediastinum and kaiser. Normal visualized pulmonary arteries. Atheromatous plaques of the visualized aortic arch and descending thoracic aorta. Diffuse spondylosis of the visualized thoracic spine. Normal visualized ribs, clavicles. Degenerative joint disease. There is no demonstrated abnormality of the visualized soft tissue structures of the upper abdomen. RAD/Chest 1 View (Portable) IMPRESSION: Increased bilateral basilar atelectatic airspace disease/infiltrates, more prom inent on the left side. Reading [facility] [id number]
--- OUTSIDE RECORDS SUMMARY | 2025-03-18 02:38 | XMS RPT_ITS | CCD ---
Author Organization [place] [employer] Partnership [facility] Care Team Providers Care Government Affairs Fellow Name Role Phone LUCIANO, KELVIN B Unavailable [...] Unavailable Unavailable Favian Trevizo Primary Care Provider Favian Trevizo Primary Care Provider Panchito Contreras Primary Care Provider [phone] Danie Sawyer Primary Care Provider [phone] Joseline CHA PhD, Favian Primary Care Provider Danie Sawyer MD Primary Care Provider [phone] ANNA CHA, DANAY Eli Primary Care Physician [phone] Antonio NEIL, PLANT GUARDMiraC Jessica Moura Primary Care Provid er Dr. Yifan Meza Emergency Provider [phone] Dr. Bridgett Villagomez Admit Provider Dr. Bridgett Villagomez Other Provider Dr. Tanika Kunz Attending Provider [phone] Dr. Tanika Kunz Other Provider Mark Anthony Guzman Attending Unavailable Antonio PLANT GUARD, [facility] Unavaila ruby White, Bridgett L Consulting Unavailable White, Bridgett L Admitting Unavailable Kaushik Bryant Consulting Unavailable Mark Anthony Guzman Consulting Unavailable Bridgett Villagomez Attending Unavailable Deniz Cooper Attending Unavailable Deniz Cooper Consulting Unavailable Antonio NEIL, [facility] Unavaila Deniz Marina Attending Unavailable Bridgett Villagomez L Consulting Unavailable Dahlia Bridgett L Admitting Unavailable Kaushik Bryant Consulting Unavailable Mark Anthony Guzman Consulting Unavailable Antonio NEIL, [facility] Unavaila Clayton Contreras Attending Unavailable Medications Current [...] every 6 hours as needed. Indications: PAIN [id number] 200 actuat albuterol 0.09 mg/actuat metered dose [...] mg Start: 09-16-2019 take 1 capsule by [facility] twice daily docusate sodium (COLACE, DULCOLAX) 100 [...] (6 sources) Start: 09-12-2019 15 g, Oral, [place] N, Low blood sugar, Starting Sun09/12/19 at [...] neuropathy, without long-term current use of insulin ([facility]) TAKE 2 TABLETS BY MOUTH EVERY DAY [...] hyperglycemia, without long-term current use of insulin ([facility]) TAKE 2 TABLETS BY MOUTH EVERY DAY [...] g 1 12/23/2020 Active polyethylene glycol 3350 67469 mg powder for oral solution (4 sources) [...] Refill(s) Start Date: 02/27/21 Status: Ordered sennosides, snf 8.6 mg oral tablet (5 sources) Start: 02-27-2021 senna 8.6 mg oral tablet Dose : 8.6 mg = 1 tab(s), Oral, qHS, 0 Refill(s) Start Date: 02/27/21 Status: Ordered Start: 01-31-2021 take 1 tablet by magdy th once daily 17.2 mg (2 tablet), Oral, DAILY, First dose on Sun01/31/21 at 0900 Start: 10-27-2020 take 2 tablets by mo [facility] once daily Sennosides (SENNA) 8.6 MG [...] mL, IntraVENous, PRN, L ine Care, Per Tufting Supervisor Request, Starting on Sun01/31/21 at 0120, For 72 hours May use order for Line Care after every IV line use and Agitated Saline Bubble Study. Administration for Bubble Study per bundle wrapper request for only. 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, [address] CA,Total 8.5 mg/dL Normal 8.5-10.1 [facility] Comment on above: Performed By: #### L 501.080 #### [facility] [address] [place], [address] Chloride [Moles/Vol] 104 mmol/L Normal 98-107 [facility] Comment on above: Performed By: #### L 501.080 #### [facility] [address] [place], [address] CO2 [Moles/Vol] 22.0 mmol/L Normal 21.0-32.0 [facility] Comment on above: Performed By: #### L 501.080 #### [facility] [address] [place], [address] Creatinine [Mass/Vol] 1.06 mg/dL Normal 0.70-1.30 [facility] Comment on above: Result Comment: The validity of the calculated GFR GFRAA in patients over 70 years has not been determined. Clinical correlation is essential. Performed By: #### L 501.080 #### [facility] [address] [place], [address] ECRCL 84.96 ml/min Normal [facility] Comment on above: Performed By: #### L 501.080 #### [facility] [address] [place], [address] EST GFR - AA 88 mL/min Normal >60 [facility] Comment on above: Result Comment: Afri can Rwandan GFR Calc Performed By: #### L 501.080 #### [facility] [address] [place], [address] GAP 11 Normal 5-15 [facility] Comment on above: Performed By: #### L 501.080 #### [facility] [address] [place], [address] GFR/1.73 sq M.predicted among non-blacks MDRD (S/P/Bld) [Vol rate/Area] 73 mL/min/{1.73_m2} Normal >60 [facility] Comment on above: Result Comment: Non- GFR Calc Performed By: #### L 501.080 #### [facility] [address] [place], [address] Glucose [Mass/Vol] 188 mg/dL High 74-106 [facility] Comment on above: Result Comment: Fast ing Glucose result greater than or equal to 126 mg/dL suggests DIABETES MELLITUS per A.D.A. criteria. Performed By: #### L 501.080 #### [facility] [address] [place], [address] Potassium [Moles/Vol] 3.6 mmol/L Normal 3.5-5.1 [facility] Comment on above: Performed By: #### L 501.080 #### [facility] [address] [place], [address] Sodium [Moles/Vol] 137 mmol/L Normal 136-145 [facility] Comment on above: Performed By: #### L 501.080 #### [facility] [address] [place], [address] Urea nitrogen [Mass/Vol] 11 mg/dL Normal 7-18 [facility] Comment on above: Performed By: #### L 501.080 #### [facility] [address] [place], [address] CBC W/Diff, Automatedon 05-03 PLT EST SLT DEC Normal ADEQ [facility] Comment on above: Performed By: #### L 501.080 #### [facility] [address] [place], [address] Chest PA and Lateralon 05-15 Chest PA and Lateral [facility] [address] [place] [address] Chest PA and Lateral MR#: [id number] Acct: [id number] Name: SHOLA MARTINEZ Rep #: [id number] : 1950 M 73 From: Saundra Jarvis nd, MD PCP: MASON EdwardsC Status: PRE ER Study: Chest PA and Lateral Date of Exam: 05/15/24 Exam# [id number] Ordering Dr: Clayton Casper MD PROCEDURE: CHEST [...] and Lateral IMPRESSION: NEGATIVE CHEST Reading Location: [facility] CC: PLANT GUARD-C Jessica Alvarez; Dr. Clayton Casper MD Telephony Engineer: Signed [facility] Emergency Department Summary on 05-15-2024 Emergency Department Summary [facility] Medical Records Department [address] [place] [address] Emergency Department Summary 05/15/24 MR#: [id number] Acct: [id number] Name: SHOLA MARTINEZ Rep #: [id number] : 1950 73 From: Clayton Casper MD [...] Prior similar symptoms: Yes Recent Illness/Hospital[facility]: [facility] Medical History Adult failure to thrive [...] No temi (more content not included)... Normal [facility] M100.678on 05-15-2024 M100.678 Copy of report sent to Infection Control Printer [id number] 05/15/24 0645 BLUCAS. FLUABV+SARS-CoV-2+RSV Pnl Resp LILLIAN+probe Normal Reference Range = Negative GeneXpert Instrument, PCR method SARS-CoV-2 (COVID 19) A Positive A INFLUENZA A Negative INFLUENZA B Negative RSV PCR Negative SARS-CoV-2 (COVID 19 PCR) Normal [facility] Comment on above: Performed By: #### M 100.678 ####[facility] [address] [place], [address] Basic Metabolic Profile (BMP )on 11-14-2023 BUN Normal 7-18 [facility] Comment on above: Result Comment: Canc elled via OM: Order cancelled - Patient discharged Performed By: #### L 100.0500, L500.2500 ####[facility] [address] [place], [address] BUN/CRE Normal 10-20 [facility] Comment on above: Result Comment: Canc elled via OM: Order cancelled - Patient discharged Performed By: #### L 100.0500, L500.2500 ####[facility] [address] [place], [address] CA,Total Normal 8.5-10.1 [facility] Comment on above: Result Comment: Canc elled via OM: Order cancelled - Patient discharged Performed By: #### L 100.0500, L500.2500 ####[facility] [address] [place], [address] CL Normal 98-107 [facility] Comment on above: Result Comment: Canc elled via OM: Order cancelled - Patient discharged Performed By: #### L 100.0500, L500.2500 ####[facility] [address] [place], [address] CO2 Normal 21.0-32.0 [facility] Comment on above: Result Comment: Canc elled via OM: Order cancelled - Patient discharged Performed By: #### L 100.0500, L500.2500 ####[facility] [address] [place], [address] CREAT,SERUM Normal 0.70-1.30 [facility] Comment on above: Result Comment: Canc elled via OM: Order cancelled - Patient discharged Performed By: #### L 100.0500, L500.2500 ####[facility] [address] [place], [address] EST GFR Normal >60 [facility] Comment on above: Result Comment: Canc elled via OM: Order cancelled - Patient discharged Performed By: #### L 100.0500, L500.2500 ####[facility] [address], [address] EST GFR - AA Normal >60 [facility] Comment on above: Result Comment: Canc elled via OM: Order cancelled - Patient discharged Performed By: #### L 100.0500, L500.2500 ####[facility] [address] [place], [address] GAP Normal 5-15 [facility] Comment on above: Result Comment: Canc elled via OM: Order cancelled - Patient discharged Performed By: #### L 100.0500, L500.2500 ####[facility] [address] [place], [address] GLU Normal 74-106 [facility] Comment on above: Result Comment: Canc elled via OM: Order cancelled - Patient discharged Performed By: #### L 100.0500, L500.2500 ####[facility] [address], [address] Potassium Normal 3.5-5.1 [facility] Comment on above: Result Comment: Canc elled via OM: Order cancelled - Patient discharged Performed By: #### L 100.0500, L500.2500 ####[facility] [address] [place], [address] Basic Metabolic Profile (BMP) Normal 136-145 [facility] Comment on above: Result Comment: Canc elled via OM: Order cancelled - Patient discharged Performed By: #### L 100.0500, L500.2500 ####[facility] [address] [place], [address] CBC-Complete Blood Cnt No Di ffon 11-14-2023 HCT Normal 40-54 [facility] Comment on above: Result Comment: Canc elled via OM: Order cancelled - Patient discharged Performed By: #### L 100.0500, L500.2500 ####[facility] [address] [place], [address] HGB Normal 13.0-16.5 [facility] Comment on above: Result Comment: Canc elled via OM: Order cancelled - Patient discharged Performed By: #### L 100.0500, L500.2500 ####[facility] [address] [place], [address] MCH Normal 27.0-32.0 [facility] Comment on above: Result Comment: Canc elled via OM: Order cancelled - Patient discharged Performed By: #### L 100.0500, L500.2500 ####[facility] [address] [place], [address] MCHC Normal 32-36 [facility] Comment on above: Result Comment: Canc elled via OM: Order cancelled - Patient discharged Performed By: #### L 100.0500, L500.2500 ####[facility] [address] [place], [address] MCV Normal 80-94 [facility] Comment on above: Result Comment: Canc elled via OM: Order cancelled - Patient discharged Performed By: #### L 100.0500, L500.2500 ####[facility] [address] [place], [address] PLT Normal 150-450 [facility] Comment on above: Result Comment: Canc elled via OM: Order cancelled - Patient discharged Performed By: #### L 100.0500, L500.2500 ####[facility] [address] [place], [address] RBC Normal 4.6-6.2 [facility] Comment on above: Result Comment: Canc elled via OM: Order cancelled - Patient discharged Performed By: #### L 100.0500, L500.2500 ####[facility] [address] [place], [address] RDW CV Normal 11.6-14.6 [facility] Comment on above: Result Comment: Canc elled via OM: Order cancelled - Patient discharged Performed By: #### L 100.0500, L500.2500 ####[facility] [address] [place], [address] RDW SD Normal 35.1-43.9 [facility] Comment on above: Result Comment: Canc elled via OM: Order cancelled - Patient discharged Performed By: #### L 100.0500, L500.2500 ####[facility] [address] [place], [address] WBC Normal 4.4-11.0 [facility] Comment on above: Result Comment: Canc elled via OM: Order cancelled - Patient discharged Performed By: #### L 100.0500, L500.2500 ####[facility] [address] [place], [address] Culture, Blood (WB)on 2023 CUB Blood cultures x2, f rom two different sites ANAEROBIC BOTTLE GRAM STAIN= GRAM POSITIVE COCCI IN CLUSTERS RESULTS CALLED TO [facility] 11/08/231950 Lavonne Pelayo. REPORT READ BACK [...] Vancomycin Islt FRANCISCO J <=0.5 S [facility] Comment on above: Performed By: #### M 200.1000 ####[facility] [address] [place], [address] Basic Metabolic Profile (BMP )on 11-12-2023 BUN/CRE 11.4 RATIO Normal 10-20 [facility] Comment on above: Performed By: #### L 500.2500, L100.0100 ####[facility] [address] [place], [address] CA,Total 8.2 mg/dL Low 8.5-10.1 [facility] Comment on above: Performed By: #### L 500.2500, L100.0100 ####[facility] [address] [place], [address] Chloride [Moles/Vol] 105 mmol/L Normal 98-107 [facility] Comment on above: Performed By: #### L 500.2500, L100.0100 ####[facility] [address] [place], [address] CO2 [Moles/Vol] 24.0 mmol/L Normal 21.0-32.0 [facility] Comment on above: Performed By: #### L 500.2500, L100.0100 ####[facility] [address] [place], [address] Creatinine [Mass/Vol] 0.70 mg/dL Normal 0.70-1.30 [facility] Comment on above: Result Comment: The validity of the calculated GFR GFRAA in patients over 70 years has not been determined. Clinical correlation is essential. Performed By: #### L 500.2500, L100.0100 ####[facility] [address] [place], [address] ECRCL 110.60 ml/min Normal [facility] Comment on above: Performed By: #### L 500.2500, L100.0100 ####[facility] [address] [place], [address] EST GFR - AA 141 mL/min Normal >60 [facility] Comment on above: Result Comment: Afri can Rwandan GFR Calc Performed By: #### L 500.2500, L100.0100 ####[facility] [address] [place], [address] GAP 6 Normal 5-15 [facility] Comment on above: Performed By: #### L 500.2500, L100.0100 ####[facility] [address] [place], [address] GFR/1.73 sq M.predicted among non-blacks MDRD (S/P/Bld) [Vol rate/Area] 117 mL/min/{1.73_m2} Normal >60 [facility] Comment on above: Result Comment: Non- GFR Calc Performed By: #### L 500.2500, L100.0100 ####[facility] [address] [place], [address] Glucose [Mass/Vol] 150 mg/dL High 74-106 [facility] Comment on above: Result Comment: Fast ing Glucose result greater than or equal to 126 mg/dL suggests DIABETES MELLITUS per A.D.A. criteria. Performed By: #### L 500.2500, L100.0100 ####[facility] [address] [place], [address] Potassium [Moles/Vol] 3.6 mmol/L Normal 3.5-5.1 [facility] Comment on above: Performed By: #### L 500.2500, L100.0100 ####[facility] [address] [place], [address] Sodium [Moles/Vol] 135 mmol/L Low 136-145 [facility] Comment on above: Performed By: #### L 500.2500, L100.0100 ####[facility] [address] [place], [address] Urea nitrogen [Mass/Vol] 8 mg/dL Normal 7-18 [facility] Comment on above: Performed By: #### L 500.2500, L100.0100 ####[facility] [address] [place], [address] Bedside Glucoseon 11-12-2023 FINGERSTICK GLU 152 mg/dL High 74-106 [facility] Comment on above: Result Comment: ADA GEMENT OF PATIENT CARE PER NURSING PROTOCOL Performed By: #### L 501.080 ####[facility] [address] [place], [address] FINGERSTICK GLU 137 mg/dL High 74-106 [facility] Comment on above: Result Comment: ADA GEMENT OF PATIENT CARE PER NURSING PROTOCOL Performed By: #### L 501.080 ####[facility] [address] [place], [address] CBC W/Diff, Automatedon 10-31 Absolute Lymph 0.77 X10 3/uL Low 0.83-4.51 [facility] Comment on above: Performed By: #### L 500.2500, L100.0100 ####[facility] [address] [place], [address] Absolute Neut 2.8 X10 3/uL Normal 2.0-7.7 [facility] Comment on above: Performed By: #### L 500.2500, L100.0100 ####[facility] [address] [place], [address] Basophils/100 WBC (Bld) 0.5 % Normal 0-1 [facility] Comment on above: Performed By: #### L 500.2500, L100.0100 ####[facility] [address] [place], [address] Eosinophils/100 WBC (Bld) 2.7 % Normal 0-5 [facility] Comment on above: Performed By: #### L 500.2500, L100.0100 ####[facility] [address] [place], [address] Erythrocyte distribution width (RBC) [Ratio] 11.6 % Normal 11.6-14.6 [facility] Comment on above: Performed By: #### L 500.2500, L100.0100 ####[facility] [address] [place], [address] Hematocrit (Bld) [Volume fraction] 35.5 % Low 40-54 [facility] Comment on above: Performed By: #### L 500.2500, L100.0100 ####[facility] [address] [place], [address] Hemoglobin (Bld) [Mass/Vol] 12.3 g/dL Low 13.0-16.5 [facility] Comment on above: Performed By: #### L 500.2500, L100.0100 ####[facility] [address] [place], [address] IG% 0.500 Normal 0.0-0.9 [facility] Comment on above: Result Comment: IG% - Immature Granulocytes (promyelocytes, myelocytes and metamyelocytes) > 1% indicates that a LEFT SHIFT is Present. Performed By: #### L 500.2500, L100.0100 ####[facility] [address] [place], [address] Lymphocytes/100 WBC (Bld) 18.6 % Low 19-41 [facility] Comment on above: Performed By: #### L 500.2500, L100.0100 ####[facility] [address] [place], [address] MCH (RBC) [Entitic mass] 30.0 pg Normal 27.0-32.0 [facility] Comment on above: Performed By: #### L 500.2500, L100.0100 ####[facility] [address] [place], [address] MCHC (RBC) [Mass/Vol] 34.6 g/dL Normal 32-36 [facility] Comment on above: Performed By: #### L 500.2500, L100.0100 ####[facility] [address] [place], [address] MCV (RBC) [Entitic vol] 86.6 fL Normal 80-94 [facility] Comment on above: Performed By: #### L 500.2500, L100.0100 ####[facility] [address] [place], [address] Monocytes/100 WBC (Bld) 10.9 % High 0-10 [facility] [facility] Comment on above: Performed By: #### L 500.2500, L100.0100 ####[facility] [address] [place], [address] Neutrophils/100 WBC (Bld) 66.8 % Normal 47-70 [facility] Comment on above: Performed By: #### L 500.2500, L100.0100 ####[facility] [address] [place], [address] Nucleated RBC (Bld) [#/Vol] 0 10*3/uL Normal 0-5 [facility] Comment on above: Performed By: #### L 500.2500, L100.0100 ####[facility] [address] [place], [address] Platelet mean volume (Bld) [Entitic vol] 8.7 fL Normal 6.2-12.0 [facility] Comment on above: Performed By: #### L 500.2500, L100.0100 ####[facility] [address] [place], [address] Platelets (Bld) [#/Vol] 117 10*3/uL Low 150-450 [facility] Comment on above: Performed By: #### L 500.2500, L100.0100 ####[facility] [address] [place], [address] RBC (Bld) [#/Vol] 4.10 10*6/uL Low 4.6-6.2 [facility] Comment on above: Performed By: #### L 500.2500, L100.0100 ####[facility] [address] [place], [address] RDW SD 36.7 fl Normal 35.1-43.9 [facility] Comment on above: Performed By: #### L 500.2500, L100.0100 ####[facility] [address] [place], [address] WBC (Bld) [#/Vol] 4.1 10*3/uL Low 4.4-11.0 [facility] Comment on above: Performed By: #### L 500.2500, L100.0100 ####[facility] [address] [place], [address] Bedside Glucoseon 11-11-2023 FINGERSTICK GLU 165 mg/dL High 74-106 [facility] Comment on above: Result Comment: ADA GEMENT OF PATIENT CARE PER NURSING PROTOCOL Performed By: #### L 501.080 #### [facility] [address] [place], [address] FINGERSTICK GLU 165 mg/dL High 74-106 [facility] Comment on above: Result Comment: ADA GEMENT OF PATIENT CARE PER NURSING PROTOCOL Performed By: #### L 501.080 ####[facility] [address] [place], [address] FINGERSTICK GLU 170 mg/dL High 74-106 [facility] Comment on above: Result Comment: ADA GEMENT OF PATIENT CARE PER NURSING PROTOCOL Performed By: #### L 501.080 ####[facility] [address] [place], [address] FINGERSTICK GLU 133 mg/dL High 74-106 [facility] Comment on above: Result Comment: ADA GEMENT OF PATIENT CARE PER NURSING PROTOCOL Performed By: #### L 501.080 #### [facility] [address] [place], [address] Basic Metabolic Profile (BMP )on 11-10-2023 BUN/CRE 13.3 RATIO Normal 10-20 [facility] Comment on above: Performed By: #### L 501.080 #### [facility] [address] [place], [address] CA,Total 7.7 mg/dL Low 8.5-10.1 [facility] Comment on above: Performed By: #### L 501.080 #### [facility] [address] [place], [address] Chloride [Moles/Vol] 108 mmol/L High 98-107 [facility] Comment on above: Performed By: #### L 501.080 #### [facility] [address] [place], [address] CO2 [Moles/Vol] 24.0 mmol/L Normal 21.0-32.0 [facility] Comment on above: Performed By: #### L 501.080 #### [facility] [address] [place], [address] Creatinine [Mass/Vol] 0.75 mg/dL Normal 0.70-1.30 [facility] Comment on above: Result Comment: The validity of the calculated GFR GFRAA in patients over 70 years has not been determined. Clinical correlation is essential. Performed By: #### L 501.080 #### [facility] [address] [place], [address] ECRCL 110.36 ml/min [facility] Comment on above: Performed By: #### L 501.080 #### [facility] [address] [place], [address] EST GFR - AA 131 mL/min Normal >60 [facility] Comment on above: Result Comment: Afri can Rwandan GFR Calc Performed By: #### L 501.080 #### [facility] [address] [place], [address] GAP 6 Normal 5-15 [facility] Comment on above: Performed By: #### L 501.080 #### [facility] [address] [place], [address] GFR/1.73 sq M.predicted among non-blacks MDRD (S/P/Bld) [Vol rate/Area] 108 mL/min/{1.73_m2} Normal >60 [facility] Comment on above: Result Comment: Non- GFR Calc Performed By: #### L 501.080 #### [facility] [address] [place], [address] Glucose [Mass/Vol] 137 mg/dL High 74-106 [facility] Comment on above: Result Comment: Fast ing Glucose result greater than or equal to 126 mg/dL suggests DIABETES MELLITUS per A.D.A. criteria. Performed By: #### L 501.080 #### [facility] [address] [place], [address] Potassium [Moles/Vol] 3.6 mmol/L Normal 3.5-5.1 [facility] Comment on above: Performed By: #### L 501.080 #### [facility] [address] [place], [address] Sodium [Moles/Vol] 138 mmol/L Normal 136-145 [facility] Comment on above: Performed By: #### L 501.080 #### [facility] [address] [place], [address] Urea nitrogen [Mass/Vol] 10 mg/dL Normal 7-18 [facility] Comment on above: Performed By: #### L 501.080 #### [facility] [address] [place], [address] Bedside Glucoseon 11-10-2023 FINGERSTICK GLU 159 mg/dL High 74-106 [facility] Comment on above: Result Comment: ADA GEMENT OF PATIENT CARE PER NURSING PROTOCOL Performed By: #### L 501.080 ####[facility] [address], [address] FINGERSTICK GLU 169 mg/dL High 74-106 [facility] Comment on above: Result Comment: ADA GEMENT OF PATIENT CARE PER NURSING PROTOCOL Performed By: #### L 501.080 #### [facility] [address] [place], [address] FINGERSTICK GLU 154 mg/dL High 74-106 [facility] Comment on above: Result Comment: ADA GEMENT OF PATIENT CARE PER NURSING PROTOCOL Performed By: #### L 501.080 #### [facility] [address] [place], [address] FINGERSTICK GLU 144 mg/dL High 74-106 [facility] Comment on above: Result Comment: ADA GEMENT OF PATIENT CARE PER NURSING PROTOCOL Performed By: #### L 501.080 #### [facility] [address] [place], [address] CBC W/Diff, Automatedon 10-31 Absolute Lymph 0.60 X10 3/uL Low 0.83-4.51 [facility] Comment on above: Performed By: #### L 501.080 #### [facility] [address] [place], [address] Absolute Neut 3.1 X10 3/uL Normal 2.0-7.7 [facility] Comment on above: Performed By: #### L 501.080 #### [facility] [address] [place], [address] Basophils/100 WBC (Bld) 0.5 % Normal 0-1 [facility] Comment on above: Performed By: #### L 501.080 #### [facility] [address] [place], [address] Eosinophils/100 WBC (Bld) 4.0 % Normal 0-5 [facility] Comment on above: Performed By: #### L 501.080 #### [facility] [address] [place], [address] Erythrocyte distribution width (RBC) [Ratio] 11.9 % Normal 11.6-14.6 [facility] Comment on above: Performed By: #### L 501.080 #### [facility] [address] [place], [address] Hematocrit (Bld) [Volume fraction] 35.4 % Low 40-54 [facility] Comment on above: Performed By: #### L 501.080 #### [facility] [address] [place], [address] Hemoglobin (Bld) [Mass/Vol] 12.2 g/dL Low 13.0-16.5 [facility] Comment on above: Performed By: #### L 501.080 #### [facility] [address] [place], [address] IG% 0.500 Normal 0.0-0.9 [facility] Comment on above: Result Comment: IG% - Immature Granulocytes (promyelocytes, myelocytes and metamyelocytes) > 1% indicates that a LEFT SHIFT is Present. Performed By: #### L 501.080 #### [facility] [address] [place], [address] Lymphocytes/100 WBC (Bld) 14.0 % Low 19-41 [facility] Comment on above: Performed By: #### L 501.080 #### [facility] [address] [place], [address] MCH (RBC) [Entitic mass] 30.1 pg Normal 27.0-32.0 [facility] Comment on above: Performed By: #### L 501.080 #### [facility] [address] [place], [address] MCHC (RBC) [Mass/Vol] 34.5 g/dL Normal 32-36 [facility] Comment on above: Performed By: #### L 501.080 #### [facility] [address] [place], [address] MCV (RBC) [Entitic vol] 87.4 fL Normal 80-94 [facility] Comment on above: Performed By: #### L 501.080 #### [facility] [address] [place], [address] Monocytes/100 WBC (Bld) 9.3 % Normal 0-10 [facility] Comment on above: Performed By: #### L 501.080 #### [facility] [address] [place], [address] Neutrophils/100 WBC (Bld) 71.7 % High 47-70 [facility] Comment on above: Performed By: #### L 501.080 #### [facility] [address] [place], [address] Nucleated RBC (Bld) [#/Vol] 0 10*3/uL Normal 0-5 [facility] Comment on above: Performed By: #### L 501.080 #### [facility] [address] [place], [address] Platelet mean volume (Bld) [Entitic vol] 9.1 fL Normal 6.2-12.0 [facility] Comment on above: Performed By: #### L 501.080 #### [facility] [address] [place], [address] Platelets (Bld) [#/Vol] 106 10*3/uL Low 150-450 [facility] Comment on above: Performed By: #### L 501.080 #### [facility] [address] [place], [address] RBC (Bld) [#/Vol] 4.05 10*6/uL Low 4.6-6.2 [facility] Comment on above: Performed By: #### L 501.080 #### [facility] [address] [place], [address] RDW SD 38.0 fl Normal 35.1-43.9 [facility] Comment on above: Performed By: #### L 501.080 #### [facility] [address] [place], [address] WBC (Bld) [#/Vol] 4.3 10*3/uL Low 4.4-11.0 [facility] Comment on above: Performed By: #### L 501.080 #### [facility] [address] [place], [address] Consultation - Urologyon Consultation - Urology [facility] Medical Records Department [address] [place] [address] Consultation - Urology 11/10/23 1240 MR#: [id number] Acct: [id number] Name: JUANSHOLA Demarco Rep #: [id number] : 1950 73 From: Kaushik Bryant MD PCP: Jessica Alvarez, PLANT GUARD-Florina Status:ADM IN Location: WI3 [id number] HPI Consult Data Date of Consult: 11/10/23 [...] office for further care. Call with questions [facility] Medical History Adult failure to thrive [...] 71.7 H, Lymph % (Auto) 14.0 L, Sioux % (Auto) 9.3, Eos % (Auto) 4.0, [...] (if applicable): CC: TARI Alvarez Signed [facility] Urine Cultureon 11-10-2023 URC Identification and sensitivity to follow. Klebsiella pneumoniae sp pneum [place] Count 50,000-80,000 Klebsiella pneumoniae sp pneum: REACTION [...] SMX Islt FRANCISCO J <=20 S [facility] Comment on above: Performed By: #### M 100.2200 ####[facility] [address] [facility] [id number] Basic Metabolic Profile (BMP )on 11-09-2023 BUN/CRE 14.7 RATIO Normal 10-20 [facility] Comment on above: Performed By: #### L 501.080 #### [facility] [address] [facility] [id number] CA,Total 7.6 mg/dL Low 8.5-10.1 [facility] Comment on above: Performed By: #### L 501.080 #### [facility] [address] [facility] [address] Chloride [Moles/Vol] 105 mmol/L Normal 98-107 [facility] Comment on above: Performed By: #### L 501.080 #### [facility] [address] [place], [address] CO2 [Moles/Vol] 24.0 mmol/L Normal 21.0-32.0 [facility] Comment on above: Performed By: #### L 501.080 #### [facility] [address] [place], [address] Creatinine [Mass/Vol] 0.75 mg/dL Normal 0.70-1.30 [facility] Comment on above: Result Comment: The validity of the calculated GFR GFRAA in patients over 70 years has not been determined. Clinical correlation is essential. Performed By: #### L 501.080 #### [facility] [address] [place], [address] ECRCL 110.36 ml/min [facility] Comment on above: Performed By: #### L 501.080 #### [facility] [address] [place], [address] EST GFR - AA 131 mL/min Normal >60 [facility] Comment on above: Result Comment: Afri can [place] GFR Calc Performed By: #### L 501.080 #### [facility] [address] [place], [address] GAP 6 Normal 5-15 [facility] Comment on above: Performed By: #### L 501.080 #### [facility] [address] [place], [address] GFR/1.73 sq M.predicted among non-blacks MDRD (S/P/Bld) [Vol rate/Area] 108 mL/min/{1.73_m2} Normal >60 [facility] Comment on above: Result Comment: Non- GFR Calc Performed By: #### L 501.080 #### [facility] [address] [place], [address] Glucose [Mass/Vol] 132 mg/dL High 74-106 [facility] Comment on above: Result Comment: Fast ing Glucose result greater than or equal to 126 mg/dL suggests DIABETES MELLITUS per A.D.A. criteria. Performed By: #### L 501.080 #### [facility] [address] [place], [address] Potassium [Moles/Vol] 3.8 mmol/L Normal 3.5-5.1 [facility] Comment on above: Performed By: #### L 501.080 #### [facility] [address] [place], [address] Sodium [Moles/Vol] 135 mmol/L Low 136-145 [facility] Comment on above: Performed By: #### L 501.080 #### [facility] [address] [place], [address] Urea nitrogen [Mass/Vol] 11 mg/dL Normal 7-18 [facility] Comment on above: Performed By: #### L 501.080 #### [facility] [address] [place], [address] Bedside Glucoseon 11-09-2023 FINGERSTICK GLU 128 mg/dL High 74-106 [facility] Comment on above: Result Comment: ADA GEMENT OF PATIENT CARE PER NURSING PROTOCOL Performed By: #### L 501.080 #### [facility] [address] [place], [address] FINGERSTICK GLU 154 mg/dL High 74-106 [facility] Comment on above: Result Comment: ADA GEMENT OF PATIENT CARE PER NURSING PROTOCOL Performed By: #### L 501.080 #### [facility] [address] [place], [address] FINGERSTICK GLU 151 mg/dL High 74-106 [facility] Comment on above: Result Comment: ADA GEMENT OF PATIENT CARE PER NURSING PROTOCOL Performed By: #### L 501.080 #### [facility] [address] [place], [address] FINGERSTICK GLU 115 mg/dL High 74-106 [facility] Comment on above: Result Comment: ADA SINGH OF PATIENT CARE PER NURSING PROTOCOL Performed By: #### L 501.080 #### [facility] [address] [place], [address] CBC W/Diff, Automatedon 08-0 9-4 Absolute Lymph 0.63 X10 3/uL Low 0.83-4.51 [facility] Comment on above: Performed By: #### L 501.080 #### [facility] [address] [place], [address] Absolute Neut 5.9 X10 3/uL Normal 2.0-7.7 [facility] Comment on above: Performed By: #### L 501.080 #### [facility] [address] [place], [address] Basophils/100 WBC (Bld) 0.3 % Normal 0-1 [facility] Comment on above: Performed By: #### L 501.080 #### [facility] [address] [place], [address] Eosinophils/100 WBC (Bld) 0.7 % Normal 0-5 [facility] Comment on above: Performed By: #### L 501.080 #### [facility] [address] [place], [address] Erythrocyte distribution width (RBC) [Ratio] 12.0 % Normal 11.6-14.6 [facility] Comment on above: Performed By: #### L 501.080 #### [facility] [address] [place], [address] Hematocrit (Bld) [Volume fraction] 36.1 % Low 40-54 [facility] Comment on above: Performed By: #### L 501.080 #### [facility] [address] [place], [address] Hemoglobin (Bld) [Mass/Vol] 12.5 g/dL Low 13.0-16.5 [facility] Comment on above: Performed By: #### L 501.080 #### [facility] [address] [place], [address] IG% 0.300 Normal 0.0-0.9 [facility] Comment on above: Result Comment: IG% - Immature Granulocytes (promyelocytes, myelocytes and metamyelocytes) > 1% indicates that a LEFT SHIFT is Present. Performed By: #### L 501.080 #### [facility] [address] [place], [address] Lymphocytes/100 WBC (Bld) 8.9 % Low 19-41 [facility] Comment on above: Performed By: #### L 501.080 #### [facility] [address] [place], [address] MCH (RBC) [Entitic mass] 30.7 pg Normal 27.0-32.0 [facility] Comment on above: Performed By: #### L 501.080 #### [facility] [address] [place], [address] MCHC (RBC) [Mass/Vol] 34.6 g/dL Normal 32-36 [facility] Comment on above: Performed By: #### L 501.080 #### [facility] [address] [place], [address] MCV (RBC) [Entitic vol] 88.7 fL Normal 80-94 [facility] Comment on above: Performed By: #### L 501.080 #### [facility] [address] [place], [address] Monocytes/100 WBC (Bld) 6.2 % Normal 0-10 [facility] Comment on above: Performed By: #### L 501.080 #### [facility] [address] [place], [address] Neutrophils/100 WBC (Bld) 83.6 % High 47-70 [facility] Comment on above: Performed By: #### L 501.080 #### [facility] [address] [place], [address] Nucleated RBC (Bld) [#/Vol] 0 10*3/uL Normal 0-5 [facility] Comment on above: Performed By: #### L 501.080 #### [facility] [address] [place], [address] Platelet mean volume (Bld) [Entitic vol] 9.1 fL Normal 6.2-12.0 [facility] Comment on above: Performed By: #### L 501.080 #### [facility] [address] [place], [address] Platelets (Bld) [#/Vol] 100 10*3/uL Low 150-450 [facility] Comment on above: Performed By: #### L 501.080 #### [facility] [address] [place], [address] RBC (Bld) [#/Vol] 4.07 10*6/uL Low 4.6-6.2 [facility] Comment on above: Performed By: #### L 501.080 #### [facility] [address] [place], [address] RDW SD 38.7 fl Normal 35.1-43.9 [facility] Comment on above: Performed By: #### L 501.080 #### [facility] [address] [place], [address] WBC (Bld) [#/Vol] 7.1 10*3/uL Normal 4.4-11.0 [facility] Comment on above: Performed By: #### L 501.080 #### [facility] [address] [place], [address] Lactic Acidon 11-09-2023 Lactate [Moles/Vol] 1.0 mmol/L Normal 0.4-1.9 [facility] Comment on above: Order Comment: Y Performed By: #### L 503.6005 ####[facility] [address] [place], [place], [address] Modified Barium Swallow Stud yon 11-09-2023 Modified Barium Swallow Study [facility] Speech Pathology [address] [place] [address] Modified Barium Swallow Study MR#: [id number] Acct: [id number] Name: SHOLA MARTINEZ Rep #: [id number] : 1950 73 From: Erika Rahman M.A., [facility]-PRECISION GRINDER Modified Barium Swallow Patient Information Study Date: 11/09/23 Study Time: 09:15 Direct Billable Minutes: 120 Total Minutes procedure reportin Diagnosis: PNA J18.9 Referring Physician: Mark Anthony Guzman Reason for Referral: Objectively assess swallow function, assess risk for aspiration, and determine recommendations for least restrictive diet textures and compensatory strategies to improve safety of swallow. Medical History: Patient presented to [facility] ED on 11/08/23 with history of [...] liquids, most notably ice water via cup. PRECISION GRINDER recommended MBSS to further assess concerns for [...] Cued cough and re-swallow - somewhat effective. [place] Thick Liquid via small single sip: cup: Result: 3= enters airways/above vocal folds/not ejected Comment: Cued cough and re-swallow - somewhat effective. [place] Thick Liquid via small single sip: cup Trial 2: Result: 5= enters airways/contacts vocal folds/not ejected [place] Thick Liquid via small single sip: cup: Result: 1= does not enter airway Pudding via teaspoon: Result: 1= does not enter airway 1/2 Cookie: Result: 1= does not enter airway [place] Thick Liquid via small single sip: cup Effortful swallow: Result: 1= does not enter airway Thin Liquid via single sip: straw: Result: 1= does not enter airway Thin Liquid via single sip: straw Trial 2: Result: 7= enters airways/below vocal folds/not ejected despite effort Comment: Cued cough and re-swallow - somewhat effective. [place] Thick Liquid via large single sip: cup Effortful swallow: Result: 5= enters airways/contacts vocal folds/not ejected [place] Thick Liquid via small single sip: cup Effortful swallow Trial 2: Result: 1= does not enter airway Comment: SILENT post prandial aspiration of previous trial Thin Liquid via small single sip: cup Trial 2: Result: 3= enters airways/above vocal folds/not ejected Comment: PRECISION GRINDER cued him for chin tuck with moderate verbal cues and model with no follow-through [place] Thick Liquid via small single sip: cup Effortful swallow Trial 3: Result: 1= does not enter airway Comment: Cued cough and re-swallow - somewhat effective. Thin Liquid via small single sip: cup Effortful swa (more content not included)... [facility] Abdomen/Pelvis W IV Cont ONL Yon 11-08-2023 Abdomen/Pelvis W IV Cont ONLY [facility] Imaging Services [address] [place], [place] [id number] Abdomen/Pelvis W IV Cont ONLY MR#: [id number] Acct: [id number] Name: SHOLA MARTINEZ Rep #: [id number] : 1950 M 73 From: Stepan Potts MD PCP: Jessica Alvarez, PLANT GUARD-C Status: ADM IN Study: Abdomen/Pelvis W IV Cont ONLY Date of Exam: Exam# [id number] Ordering Dr: Kaushik Bryant MD [id number] STUDY: CT ABDOMEN AND PELVIS WITH CONTRAST [...] CC: TARI Alvarez; Dr. Kaushik Bryant MD Telephony Engineer: Signed [facility] Basic Metabolic Profile (BMP )on 11-08-2023 BUN/CRE 10.9 RATIO Normal 10-20 [facility] Comment on above: Performed By: #### L 501.080 #### [facility] [address] [place], [address] CA,Total 8.9 mg/dL Normal 8.5-10.1 [facility] Comment on above: Performed By: #### L 501.080 #### [facility] [address] [place], [address] Chloride [Moles/Vol] 102 mmol/L Normal 98-107 [facility] Comment on above: Performed By: #### L 501.080 #### [facility] [address] [place], [address] CO2 [Moles/Vol] 23.0 mmol/L Normal 21.0-32.0 [facility] Comment on above: Performed By: #### L 501.080 #### [facility] [address] [place], [address] Creatinine [Mass/Vol] 0.92 mg/dL Normal 0.70-1.30 [facility] Comment on above: Result Comment: The validity of the calculated GFR GFRAA in patients over 70 years has not been determined. Clinical correlation is essential. Performed By: #### L 501.080 #### [facility] [address] [place], [address] ECRCL 104.14 ml/min [facility] Comment on above: Performed By: #### L 501.080 #### [facility] [address] [place], [address] EST GFR - AA 104 mL/min Normal >60 [facility] Comment on above: Result Comment: Afri can [place] GFR Calc Performed By: #### L 501.080 #### [facility] [address] [place], [address] GAP 10 Normal 5-15 [facility] Comment on above: Performed By: #### L 501.080 #### [facility] [address] [place], [address] GFR/1.73 sq M.predicted among non-blacks MDRD (S/P/Bld) [Vol rate/Area] 86 mL/min/{1.73_m2} Normal >60 [facility] Comment on above: Result Comment: Non- GFR Calc Performed By: #### L 501.080 #### [facility] [address] [place], [address] Glucose [Mass/Vol] 142 mg/dL High 74-106 [facility] Comment on above: Result Comment: Fast ing Glucose result greater than or equal to 126 mg/dL suggests DIABETES MELLITUS per A.D.A. criteria. Performed By: #### L 501.080 #### [facility] [address] [place], [address] Potassium [Moles/Vol] 3.8 mmol/L Normal 3.5-5.1 [facility] Comment on above: Result Comment: Slig ht Hemolysis, Result may be falsely increased. Performed By: #### L 501.080 #### [facility] [address] [place], [address] Sodium [Moles/Vol] 135 mmol/L Low 136-145 [facility] Comment on above: Performed By: #### L 501.080 #### [facility] [address] [place], [address] Urea nitrogen [Mass/Vol] 10 mg/dL Normal 7-18 [facility] Comment on above: Performed By: #### L 501.080 #### [facility] [address] [place], [address] Bedside Glucoseon 11-08-2023 FINGERSTICK GLU 133 mg/dL High 74-106 [facility] Comment on above: Result Comment: ADA GEMENT OF PATIENT CARE PER NURSING PROTOCOL Performed By: #### L 501.080 #### [facility] [address] [place], [address] FINGERSTICK GLU 151 mg/dL High 74-106 [facility] Comment on above: Result Comment: ADA GEMENT OF PATIENT CARE PER NURSING PROTOCOL Performed By: #### L 501.080 #### [facility] [address] [place], [address] FINGERSTICK GLU 168 mg/dL High 74-106 [facility] Comment on above: Result Comment: ADA GEMENT OF PATIENT CARE PER NURSING PROTOCOL Performed By: #### L 501.080 #### [facility] [address] [place], [address] FINGERSTICK GLU 153 mg/dL High 74-106 [facility] Comment on above: Result Comment: ADA GEMENT OF PATIENT CARE PER NURSING PROTOCOL Performed By: #### L 501.080 ####[facility] [address] [place], [address] CBC W/Diff, Automatedon 08-0 8-2024 Absolute Lymph 0.66 X10 3/uL Low 0.83-4.51 [facility] Comment on above: Performed By: #### L 100.0100, L500.4050 #### [facility] [address] [place], [address] Absolute Neut 8.7 X10 3/uL High 2.0-7.7 [facility] Comment on above: Performed By: #### L 100.0100, L500.4050 #### [facility] [address] [place], [address] Basophils/100 WBC (Bld) 0.3 % Normal 0-1 [facility] Comment on above: Performed By: #### L 100.0100, L500.4050 #### [facility] [address] [place], [address] Eosinophils/100 WBC (Bld) 0.3 % Normal 0-5 [facility] Comment on above: Performed By: #### L 100.0100, L500.4050 #### [facility] [address] [place], [address] Erythrocyte distribution width (RBC) [Ratio] 12.0 % Normal 11.6-14.6 [facility] Comment on above: Performed By: #### L 100.0100, L500.4050 #### [facility] [address] [place], [address] Hematocrit (Bld) [Volume fraction] 40.5 % Normal 40-54 [facility] Comment on above: Performed By: #### L 100.0100, L500.4050 #### [facility] [address] [place], [address] Hemoglobin (Bld) [Mass/Vol] 13.7 g/dL Normal 13.0-16.5 [facility] Comment on above: Performed By: #### L 100.0100, L500.4050 #### [facility] [address] [place], [address] IG% 0.400 Normal 0.0-0.9 [facility] Comment on above: Result Comment: IG% - Immature Granulocytes (promyelocytes, myelocytes and metamyelocytes) > 1% indicates that a LEFT SHIFT is Present. Performed By: #### L 100.0100, L500.4050 #### [facility] [address] [place], [address] Lymphocytes/100 WBC (Bld) 6.8 % Low 19-41 [facility] Comment on above: Performed By: #### L 100.0100, L500.4050 #### [facility] [address] [place], [address] MCH (RBC) [Entitic mass] 30.2 pg Normal 27.0-32.0 [facility] Comment on above: Performed By: #### L 100.0100, L500.4050 #### [facility] [address] [place], [address] MCHC (RBC) [Mass/Vol] 33.8 g/dL Normal 32-36 [facility] Comment on above: Performed By: #### L 100.0100, L500.4050 #### [facility] [address] [place], [address] MCV (RBC) [Entitic vol] 89.4 fL Normal 80-94 [facility] Comment on above: Performed By: #### L 100.0100, L500.4050 #### [facility] [address] [place], [address] Monocytes/100 WBC (Bld) 2.9 % Normal 0-10 [facility] Comment on above: Performed By: #### L 100.0100, L500.4050 #### [facility] [address] [place], [address] Neutrophils/100 WBC (Bld) 89.3 % High 47-70 [facility] Comment on above: Performed By: #### L 100.0100, L500.4050 #### [facility] [address] [place], [address] Nucleated RBC (Bld) [#/Vol] 0 10*3/uL Normal 0-5 [facility] Comment on above: Performed By: #### L 100.0100, L500.4050 #### [facility] [address] [place], [address] Platelet mean volume (Bld) [Entitic vol] 9.3 fL Normal 6.2-12.0 [facility] Comment on above: Performed By: #### L 100.0100, L500.4050 #### [facility] [address] [place], [address] Platelets (Bld) [#/Vol] 107 10*3/uL Low 150-450 [facility] Comment on above: Performed By: #### L 100.0100, L500.4050 #### [facility] [address] [place], [address] RBC (Bld) [#/Vol] 4.53 10*6/uL Low 4.6-6.2 [facility] Comment on above: Performed By: #### L 100.0100, L500.4050 #### [facility] [address] [place], [address] RDW SD 38.7 fl Normal 35.1-43.9 [facility] Comment on above: Performed By: #### L 100.0100, L500.4050 #### [facility] [address] [place], [address] WBC (Bld) [#/Vol] 9.7 10*3/uL Normal 4.4-11.0 [facility] Comment on above: Performed By: #### L 100.0100, L500.4050 #### [facility] [address] [place], [address] Absolute Lymph 0.64 X10 3/uL Low 0.83-4.51 [facility] Comment on above: Performed By: #### L 501.080 #### [facility] [address] [place], [address] Absolute Neut 8.0 X10 3/uL High 2.0-7.7 [facility] Comment on above: Performed By: #### L 501.080 #### [facility] [address] [place], [address] Basophils/100 WBC (Bld) 0.2 % Normal 0-1 [facility] Comment on above: Performed By: #### L 501.080 #### [facility] [address] [place], [address] Eosinophils/100 WBC (Bld) 0.7 % Normal 0-5 [facility] Comment on above: Performed By: #### L 501.080 #### [facility] [address] [place], [address] Erythrocyte distribution width (RBC) [Ratio] 12.0 % Normal 11.6-14.6 [facility] Comment on above: Performed By: #### L 501.080 #### [facility] [address] [place], [address] Hematocrit (Bld) [Volume fraction] 42.0 % Normal 40-54 [facility] Comment on above: Performed By: #### L 501.080 #### [facility] [address] [place], [address] Hemoglobin (Bld) [Mass/Vol] 14.6 g/dL Normal 13.0-16.5 [facility] Comment on above: Performed By: #### L 501.080 #### [facility] [address] [place], [address] IG% 0.400 Normal 0.0-0.9 [facility] Comment on above: Result Comment: IG% - Immature Granulocytes (promyelocytes, myelocytes and metamyelocytes) > 1% indicates that a LEFT SHIFT is Present. Performed By: #### L 501.080 #### [facility] [address] [place], [address] Lymphocytes/100 WBC (Bld) 7.1 % Low 19-41 [facility] Comment on above: Performed By: #### L 501.080 #### [facility] [address] [place], [address] MCH (RBC) [Entitic mass] 30.5 pg Normal 27.0-32.0 [facility] Comment on above: Performed By: #### L 501.080 #### [facility] [address] [place], [address] MCHC (RBC) [Mass/Vol] 34.8 g/dL Normal 32-36 [facility] Comment on above: Performed By: #### L 501.080 #### [facility] [address] [place], [address] MCV (RBC) [Entitic vol] 87.7 fL Normal 80-94 [facility] [facility] Comment on above: Performed By: #### L 501.080 #### [facility] [address] [place], [address] Monocytes/100 WBC (Bld) 2.8 % Normal 0-10 [facility] [place] [facility] Comment on above: Performed By: #### L 501.080 #### [facility] [address] [place], [address] Neutrophils/100 WBC (Bld) 88.8 % High 47-70 [facility] Comment on above: Performed By: #### L 501.080 #### [facility] [address] [place], [address] Nucleated RBC (Bld) [#/Vol] 0 10*3/uL Normal 0-5 [facility] Comment on above: Performed By: #### L 501.080 #### [facility] [address] [place], [address] Platelet mean volume (Bld) [Entitic vol] 10.1 fL Normal 6.2-12.0 [facility] Comment on above: Performed By: #### L 501.080 #### [facility] [address] [place], [address] Platelets (Bld) [#/Vol] 110 10*3/uL Low 150-450 [facility] Comment on above: Performed By: #### L 501.080 #### [facility] [address] [place], [address] RBC (Bld) [#/Vol] 4.79 10*6/uL Normal 4.6-6.2 [facility] Comment on above: Performed By: #### L 501.080 #### [facility] [address] [place], [address] RDW SD 38.6 fl Normal 35.1-43.9 [facility] Comment on above: Performed By: #### L 501.080 #### [facility] [address] [place], [address] WBC (Bld) [#/Vol] 9.0 10*3/uL Normal 4.4-11.0 [facility] Comment on above: Performed By: #### L 501.080 #### [facility] [address] [place], [address] Chest PA and Lateralon 11-07 Chest PA and Lateral [facility] Imaging Services [address] [place] [address] Chest PA and Lateral MR#: [id number] Acct: [id number] Name: SHOLA MARTINEZ Rep #: [id number] : 1950 M 73 From: Jackson Leroy MD PCP: Jessica Alvarez, PLANT [employer]-C Status: [facility] Study: Chest PA and Lateral Date of Exam: 11/08/23 Exam# [id number] Ordering Dr: Eduar Donahue DO [id number] EXAM: XR Chest 2 Views INDICATION: Male, [...] CC: TARI Alvarez; Dr. Eduar Donahue DO Telephony Engineer: Signed Normal [facility] Comprehensive Metabolic Prof ilon 11-08-2023 Albumin [Mass/Vol] 3.1 g/dL Low 3.2-5.0 [facility] Comment on above: Performed By: #### L 100.0100, L500.4050 #### [facility] [address] [place], [address] Albumin/Globulin [Mass ratio] 1.0 {ratio} Normal 0.9-2.4 [facility] Comment on above: Performed By: #### L 100.0100, L500.4050 #### [facility] [address] [place], [address] ALK P 82 U/L Normal 45-117 [facility] Comment on above: Performed By: #### L 100.0100, L500.4050 #### [facility] [address] [place], [address] ALT [Catalytic activity/Vol] 22 U/L Normal 16-61 [facility] Comment on above: Performed By: #### L 100.0100, L500.4050 #### [facility] [address] [place], [address] AST [Catalytic activity/Vol] 16 U/L Normal 15-37 [facility] Comment on above: Performed By: #### L 100.0100, L500.4050 #### [facility] [address] [place], [address] Bilirubin [Mass/Vol] 3.40 mg/dL High 0.20-1.00 [facility] Comment on above: Result Comment: For patients on eltrombopag therapy, use of Dimension [place] TBIL is not recommended. Performed By: #### L 100.0100, L500.4050 #### [facility] [address] [place], [address] BUN/CRE 8.9 RATIO Low 10-20 [facility] Comment on above: Performed By: #### L 100.0100, L500.4050 #### [facility] [address] [place], [address] CA,Total 8.3 mg/dL Low 8.5-10.1 [facility] Comment on above: Performed By: #### L 100.0100, L500.4050 #### [facility] [address] [place], [address] Chloride [Moles/Vol] 103 mmol/L Normal 98-107 [facility] Comment on above: Performed By: #### L 100.0100, L500.4050 #### [facility] [address] [place], [address] CO2 [Moles/Vol] 26.0 mmol/L Normal 21.0-32.0 [facility] Comment on above: Performed By: #### L 100.0100, L500.4050 #### [facility] [address] [place], [address] Creatinine [Mass/Vol] 1.01 mg/dL Normal 0.70-1.30 [facility] Comment on above: Result Comment: The validity of the calculated GFR GFRAA in patients over 70 years has not been determined. Clinical correlation is essential. Performed By: #### L 100.0100, L500.4050 #### [facility] [address] [place], [address] ECRCL 87.41 ml/min Normal [facility] Comment on above: Performed By: #### L 100.0100, L500.4050 #### [facility] [address] [place], [address] EST GFR - AA 93 mL/min Normal >60 [facility] Comment on above: Result Comment: Afri can [place] GFR Calc Performed By: #### L 100.0100, L500.4050 #### [facility] [address] [place], [address] GAP 6 Normal 5-15 [facility] Comment on above: Performed By: #### L 100.0100, L500.4050 #### [facility] [address] [place], [address] GFR/1.73 sq M.predicted among non-blacks MDRD (S/P/Bld) [Vol rate/Area] 77 mL/min/{1.73_m2} Normal >60 [facility] Comment on above: Result Comment: Non- GFR Calc Performed By: #### L 100.0100, L500.4050 #### [facility] [address] [place], [address] Globulin (S) [Mass/Vol] 3.1 g/dL Normal 2.2-4.2 [facility] Comment on above: Performed By: #### L 100.0100, L500.4050 #### [facility] [address] [place], [address] Glucose [Mass/Vol] 179 mg/dL High 74-106 [facility] Comment on above: Result Comment: Fast ing Glucose result greater than or equal to 126 mg/dL suggests DIABETES MELLITUS per A.D.A. criteria. Performed By: #### L 100.0100, L500.4050 #### [facility] [address] [place], [address] Potassium [Moles/Vol] 4.3 mmol/L Normal 3.5-5.1 [facility] Comment on above: Performed By: #### L 100.0100, L500.4050 #### [facility] [address] [place], [address] Sodium [Moles/Vol] 135 mmol/L Low 136-145 [facility] Comment on above: Performed By: #### L 100.0100, L500.4050 #### [facility] [address] [place], [address] T PROT 6.2 g/dL Low 6.4-8.2 [facility] Comment on above: Performed By: #### L 100.0100, L500.4050 #### [facility] [address] [place], [address] Urea nitrogen [Mass/Vol] 9 mg/dL Normal 7-18 [facility] Comment on above: Performed By: #### L 100.0100, L500.4050 #### [facility] [address] [place], [address] Consultation - Urologyon Consultation - Urology [facility] Medical Records Department [address] [place] [address] Consultation - Urology 11/08/23 1644 MR#: [id number] Acct: [id number] Name: SHOLA MARTINEZ Rep #: [id number] : 1950 73 From: Kaushik Bryant MD PCP: Jessica Alvarez, [employer] Status:ADM IN Location: WI3 [id number] Assessment Plan Assessment/Plan (1) Acidosis, lactic: (2) [...] and Knight 150 cc. No gross hematuria. [facility] Medical History Adult failure to thrive [...] 88.8 H, Lymph % (Auto) 7.1 L, Sioux % (Auto) 2.8, Eos % (Auto) 0.7, [...] 86, BUN/C (more content not included)... [facility] Emergency Department Summary on 11-08-2023 Emergency Department Summary [facility] Medical Records Department [address] [place] [address] Emergency Department Summary 11/08/23 MR#: [id number] Acct: [id number] Name: SHOLA MARTINEZ Rep #: [id number] : 1950 73 From: Eduar Donahue DO PCP: Jessica Alvarez, [employer] Status:ADM IN Location: MS3 [id number] HPI History of Present Illness Chief Complaint: [...] of breath. Patient denies any urinary complaints. [facility] Medical History Adult failure to thrive [...] mucous membranes (more content not included)... [facility] H AND P Exam - Hospitaliston 11-08-2023 H&P Exam - Hospitalist [facility] Medical Records Department [address] [place] [address] H P Exam - Hospitalist 11/08/23 0230 MR#: [id number] Acct: [id number] Name: SHOLA MARTINEZ Rep #: [id number] : 1950 73 From: Bridgett Villagomez MD PCP: Jessica Alvarez, PL[employer] Status:ADM IN [place] [id number] HPI - General General Date of Admission: 11/08/23 Date of Service: 11/08/23 Chief Complaint: N/V/D, fever. HPI Narrative The patient is a 73 y/o M w/ PMHx: Chronic thrombocytopenia, Former Tobacco use, HTN, HLD, BPH, Diabetes mellitus type II, COPD, CKD per GFR trending, Obesity, Hx COVID illness who presents to the [facility] ED on 11/08/23 with history of [...] plavix and does not know exactly why. [facility] Medical History Adult failure to thrive [...] BRBPR. GENITOUR (more content not included)... [facility]adder[facility] 024 Kidney and Bladder [facility] Imaging Services [address] [place], [place] [id number] Kidney and Bladder MR#: [id number] Acct: [id number] Name: SHOLA MARTINEZ Rep #: [id number] : 1950 M 73 From: Stepan Potts MD PCP: Jessica Alvarez, TARI Status: ADM IN Study: Kidney and Bladder Date of Exam: 11/08/23 Exam# [id number] Ordering Dr: Mark Anthony Guzman MD [id number] STUDY: RENAL ULTRASOUND - COMPLETE REASON FOR [...] TARI Alvarez; Dr. Mark Anthony Guzman MD Telephony Engineer: Signed [facility] Lactic Acidon 11-08-2023 Lactate [Moles/Vol] 2.2 mmol/L Invalid Interpretation Code 0.4-1.9 [facility] Comment on above: Result Comment: Crit ical Result(s) Called at: 06:53:04 11/08/2023 by: GEO VILLAGOMEZ TO KALEY JACKSON. Results read back by same. Performed By: #### L 503.6005 #### [facility] [address] [place], [address] Lactate [Moles/Vol] 2.4 mmol/L Invalid Interpretation Code 0.4-1.9 [facility] Comment on above: Order Comment: Y Result Comment: Crit ical Result(s) Called at: 02:04:08 11/08/2023 by: Celso Davis. carolyn Henson RN ED. Results read back by same. Performed By: #### L 501.080 #### [facility] [address] [place], [address] Legionella Antigen Urineon 0 11-08-2023 LEGU URINE, CATHETER Legionella Antigen result interpretation: L pneumo Ag Ur Ql Negative Presumptive negative for Legionella pneumophila serogroup 1 antigen in urine, suggesting no recent or current infection. Legionella Ag, Urine Negative (See interpretation below) [facility] Comment on above: Performed By: #### M 300.4600, M300.4500 ####[facility] [address] [place], [address] M R Staph Aureus DNA by PCRo n 11-08-2023 MRSA DNA ASSAY Negative Normal Negative [facility] Comment on above: Performed By: #### L 8200.1000 ####[facility] [address] [place], [address] M100.678on 11-08-2023 M100.678 SARS-CoV-2 (COVID 19 ) Negative INFLUENZA A Negative INFLUENZA B Negative RSV PCR Negative [facility] Comment on above: Performed By: #### L 400.0001, M100.8 #### [facility] [address] [place], [address] RESPIRATORY PANEL MOLECULARo n 11-08-2023 RP PANEL ADENOVIRUS Not Detected INFLUENZA A Not Detected INFLUENZA A (SUBTYPE H1) Not Detected INFLUENZA A (SUBTYPE H3) Not Detected INFLUENZA B Not Detected HUMAN METAPHNEUMO Not Detected PARAINFLUENZA 1 Not Detected PARAINFLUENZA 2 Not Detected PARAINFLUENZA 3 Not Detected PARAINFLUENZA 4 Not Detected RHINOVIRUS Not Detected RSV A Not Detected RSV B Not Detected [facility] Comment on above: Performed By: #### M 100.638 ####[facility] [address] [place], [address] Strep pneumoniae Antig(UR,CS F)on 11-08-2023 STPAG URINE, CATHETER URINE INTERPRETATION Strep pneumoniae Antig(UR,CSF) Negative Urine Presumptive negative for pneumococcal pneumonia, suggesting no current or recent pneumococcal infection. Infection due to S pneumoniae cannot be ruled out since the antigen present in the sample may be below the detection limit of the test. Strep pneumo Test Negative URINE (See interpretation below) [facility] Comment on above: Performed By: #### M 300.4600, M300.4500 ####[facility] [address] [place], [address] Urinalysis, Completeon 11-07 BACTERIA 3+ /hpf Normal None Seen [facility] Comment on above: Order Comment: CLEAN CATCH Performed By: #### L 400.0001, M1.678 #### [facility] [address] [place], [address] RBC 0-5 SEEN Normal 0-5 [facility] Comment on above: Order Comment: CLEAN CATCH Performed By: #### L 400.0001, M100.678 #### [facility] [address] [place], [address] WBC 25-50 SEEN Normal 0-5 [facility] Comment on above: Order Comment: CLEAN CATCH Performed By: #### L 400.0001, M100.678 #### [facility] [address] [place], [address] EPI,SQUAMOUS 0 SEEN Normal 0-5 [facility] Comment on above: Order Comment: CLEAN CATCH Performed By: #### L 400.0001, M100.678 #### [facility] [address] [place], [address] Mucus Ql (Urine sed) 0 SEEN Normal [facility] Comment on above: Order Comment: CLEAN CATCH Performed By: #### L 400.0001, M100.678 #### [facility] [address] [place], [address] Absolute lymphocyte countOrd ered By: Tanika Kunz on 11-11-2022 Lymphocytes Auto (Unsp spec) [#/Vol] 1.16 10*3/uL 0.83-4.51 [facility] Basophil percentageOrdered B y: Tanika Kunz on 11-11-2022 Basophils/100 WBC (Bld) 0.3 % 0-1 [facility] Chloride [Moles/Vol] 104 mmol/L 98-107 [facility] Eosinophils/100 WBC (Bld) 1.3 % 0-5 [facility] Glucose [Mass/Vol] 210 mg/dL 74-106 [facility] Comment on above: Glucose result great er than or equal to 200 mg/dLsuggests DIABETES MELLITUS per A.D.A. criteria. Neutrophils (Bld) [#/Vol] 4.4 10*3/uL 2.0-7.7 [facility] Neutrophils/100 WBC (Bld) 69.9 % 47-70 [facility] Potassium [Moles/Vol] 3.7 mmol/L 3.5-5.1 [facility] Sodium [Moles/Vol] 134 mmol/L 136-145 [facility] WBC (Bld) [#/Vol] 6.3 10*3/uL 4.4-11.0 [facility] Blood erythrocytes count (nu mber/volume)Ordered By: Tanika Kunz on 11-11-2022 RBC (Bld) [#/Vol] 4.41 10*6/uL 4.6-6.2 [facility] Blood hemoglobin measurement (mass/volume)Ordered By: Tanika Kunz on 11-11-2022 Hemoglobin (Bld) [Mass/Vol] 13.6 g/dL 13.0-16.5 [facility] Blood lymphocytes/100 leukoc ytesOrdered By: Tanika Kunz on 11-11-2022 Lymphocytes/100 WBC (Bld) 18.4 % 19-41 [facility] Blood monocytes/100 leukocyt esOrdered By: Tanika Kunz on 11-11-2022 Monocytes/100 WBC (Bld) 9.8 % 0-10 [facility] Blood platelet mean volumeOr dered By: Tanika Kunz on 11-11-2022 Platelet mean volume (Bld) [Entitic vol] 9.4 fL 6.2-12.0 [facility] Determination of erythrocyte mean corpuscular volume (MCV)Ordered By: Tanika Kunz on 11-11-2022 MCV (RBC) [Entitic vol] 88.2 fL 80-94 [facility] Glucose Glucometer (dC) [M ass/Vol]Ordered By: Tanika Kunz on 11-11-2022 Glucose [Mass/Vol] 236 mg/dL 74-106 [facility] Comment on above: MANAGEMENT OF PATIEN T CARE PER NURSING PROTOCOL Hematocrit Auto (Bld) [Volum e fraction]Ordered By: Tanika Kunz on 11-11-2022 Hematocrit (Bld) [Volume fraction] 38.9 % 40-54 [facility] - Chemistry and C hemistry - challengeOrdered By: Tanika Kunz on 11-11-2022 CO2 [Moles/Vol] 25.0 mmol/L 21.0-32.0 [facility] Urea nitrogen/Creatinine [Mass ratio] 11.1 mg/mg 10-20 [facility] - Hematology and Cell countsOrdered By: Tanika Kunz on 11-11-2022 Erythrocyte distribution width (RBC) [Entitic vol] 37.6 fL 35.1-43.9 [facility] Erythrocyte distribution width (RBC) [Ratio] 11.7 % 11.6-14.6 [facility] Immature granulocytes/100 WBC (Bld) 0.300 % 0.0-0.9 [facility] Comment on above: IG% - Immature Granu locytes (promyelocytes, myelocytes and metamyelocytes) > 1% indicates that a LEFT SHIFT is Present. MCH (RBC) [Entitic mass] 30.8 pg 27.0-32.0 [facility] Nucleated RBC/100 WBC (Bld) [Ratio] 0 % 0-5 [facility] MCHC Auto (RBC) [Mass/Vol]Or dered By: Tanika Kunz on 11-11-2022 MCHC (RBC) [Mass/Vol] 35.0 g/dL 32-36 [facility] No Panel InformationOrdered By: Tanika Kunz on 11-11-2022 Estimated Creatinine Clearance Calc 84.99 ml/min [facility] Estimated GFR (MDRD) Amer 107 mL/min >60 [facility] Comment on above: GFR Calc Estimated GFR (MDRD) Non-Af Amer 88 mL/min >60 [facility] Comment on above: Non- GFR Calc Platelets bldOrdered By: Natacha Kunz on 11-11-2022 Platelets (Bld) [#/Vol] 100 10*3/uL 150-450 [facility] Serum or plasma calcium yessi urement (mass/volume)Ordered By: Tanika Kunz on 11-11-2022 Calcium [Mass/Vol] 8.1 mg/dL 8.5-10.1 [facility] Serum or plasma creatinine m easurement (mass/volume)Ordered By: Tanika Kunz on 11-11-2022 Creatinine [Mass/Vol] 0.90 mg/dL 0.70-1.30 [facility] Comment on above: The validity of the calculated GFR & GFRAA in patients over 70 years has not been determined. Clinical correlation is essential. Serum or plasma urea nitroge n measurement (mass/volume)Ordered By: Tanika Kunz on 11-11-2022 Urea nitrogen [Mass/Vol] 10 mg/dL 7-18 [facility] Thin prep Papanicolaou smear with manual screeningOrdered By: Tanika Kunz on 11-11-2022 Thin prep Papanicolaou smear with manual screening 5 5-15 [facility] Basophil percentageOrdered B y: Tanika Kunz on 11-10-2022 Bilirubin [Mass/Vol] 2.70 mg/dL 0.20-1.00 [facility] Comment on above: For patients on eltr ombopag therapy, use of Dimension [place] TBIL is not recommended. Protein [Mass/Vol] 5.6 g/dL 6.4-8.2 [facility] Blood platelet adequacy dete ction by light microscopyOrdered By: Tanika Kunz on 11-10-2022 Platelets LM Ql (Bld) MOD DEC ADEQ [facility] Direct bilirubinOrdered By: Tanika Kunz on 11-10-2022 Bilirubin.direct [Mass/Vol] 0.19 mg/dL 0.00-0.30 [facility] - Chemistry and C hemistry - challengeOrdered By: Tanika Kunz on 11-10-2022 ALP [Catalytic activity/Vol] 82 U/L 45-117 [facility] ALT [Catalytic activity/Vol] 32 U/L 16-61 [facility] Globulin (S) [Mass/Vol] 3.0 g/dL 2.2-4.2 [facility] Serum or plasma albumin yessi urement (mass/volume)Ordered By: Tanika Kunz on 11-10-2022 Albumin [Mass/Vol] 2.6 g/dL 3.2-5.0 [facility] Thin prep Papanicolaou smear with manual screeningOrdered By: Tanika Kunz on 11-10-2022 Thin prep Papanicolaou smear with manual screening 42 U/L 15-37 [facility] Serum or plasma albumin/glob ulin mass ratioOrdered By: Bridgett Villagomez on 11-09-2022 Albumin/Globulin [Mass ratio] 1.0 {ratio} 0.9-2.4 [facility] Absolute lymphocyte countOrd ered By: Jann Hoffmann on 11-08-2022 Lymphocytes Auto (Unsp spec) [#/Vol] 0.60 10*3/uL 0.83-4.51 [facility] Basophil percentageOrdered B y: Jann Hoffmann on 11-08-2022 Basophil percentage 0-5 SEEN /hpf 0-5 [facility] Basophils/100 WBC (Bld) 0.2 % 0-1 [facility] Bilirubin [Mass/Vol] 2.90 mg/dL 0.20-1.00 [facility] Comment on above: For patients on eltr ombopag therapy, use of Dimension [place] TBIL is not recommended. Chloride [Moles/Vol] 100 mmol/L 98-107 [facility] Eosinophils/100 WBC (Bld) 0.8 % 0-5 [facility] Glucose [Mass/Vol] 244 mg/dL 74-106 [facility] Comment on above: Glucose result great er than or equal to 200 mg/dLsuggests DIABETES MELLITUS per A.D.A. criteria. Neutrophils (Bld) [#/Vol] 9.7 10*3/uL 2.0-7.7 [facility] Neutrophils/100 WBC (Bld) 88.3 % 47-70 [facility] Potassium [Moles/Vol] 3.9 mmol/L 3.5-5.1 [facility] Protein [Mass/Vol] 6.4 g/dL 6.4-8.2 [facility] Sodium [Moles/Vol] 134 mmol/L 136-145 [facility] WBC (Bld) [#/Vol] 11.0 10*3/uL 4.4-11.0 [facility] Bilirubin Test strip Ql (U)O rdered By: Jann Hoffmann on 11-08-2022 Bilirubin Ql (U) Negative Negative [facility] Blood erythrocytes count (nu mber/volume)Ordered By: Jann Hoffmann on 11-08-2022 RBC (Bld) [#/Vol] 4.88 10*6/uL 4.6-6.2 [facility] Blood hemoglobin measurement (mass/volume)Ordered By: Jann Hoffmann on 11-08-2022 Hemoglobin (Bld) [Mass/Vol] 15.0 g/dL 13.0-16.5 [facility] Blood lymphocytes/100 leukoc ytesOrdered By: Jann Hoffmann on 11-08-2022 Lymphocytes/100 WBC (Bld) 5.4 % 19-41 [facility] Blood manual differential co mment interpretation (narrative result)Ordered By: Jann Hoffmann on 11-08-2022 Manual differential comment Lito (Bld) [Interp] SCANNED [facility] Blood monocytes/100 leukocyt esOrdered By: Jann Hoffmann on 11-08-2022 Monocytes/100 WBC (Bld) 4.8 % 0-10 [facility] Blood platelet mean volumeOr dered By: Jann Hoffmann on 11-08-2022 Platelet mean volume (Bld) [Entitic vol] 9.6 fL 6.2-12.0 [facility] Determination of erythrocyte mean corpuscular volume (MCV)Ordered By: Jann Hoffmann on 11-08-2022 MCV (RBC) [Entitic vol] 87.9 fL 80-94 [facility] Hematocrit Auto (Bld) [Volum e fraction]Ordered By: Jann Hoffmann on 11-08-2022 Hematocrit (Bld) [Volume fraction] 42.9 % 40-54 [facility] Ketones Test strip Ql (U)Ord ered By: Jann Hoffmann on 11-08-2022 Ketones Ql (U) 5 mg/dl Negative [facility] - Chemistry and C hemistry - challengeOrdered By: Jann Hoffmann on 11-08-2022 ALP [Catalytic activity/Vol] 115 U/L 45-117 [facility] ALT [Catalytic activity/Vol] 42 U/L 16-61 [facility] CO2 [Moles/Vol] 23.0 mmol/L 21.0-32.0 [facility] Globulin (S) [Mass/Vol] 3.0 g/dL 2.2-4.2 [facility] Urea nitrogen/Creatinine [Mass ratio] 10.4 mg/mg 10-20 [facility] - Hematology and Cell countsOrdered By: Jann Hoffmann on 11-08-2022 Erythrocyte distribution width (RBC) [Entitic vol] 38.0 fL 35.1-43.9 [facility] Erythrocyte distribution width (RBC) [Ratio] 11.9 % 11.6-14.6 [facility] Immature granulocytes/100 WBC (Bld) 0.500 % 0.0-0.9 [facility] Comment on above: IG% - Immature Granu locytes (promyelocytes, myelocytes and metamyelocytes) > 1% indicates that a LEFT SHIFT is Present. MCH (RBC) [Entitic mass] 30.7 pg 27.0-32.0 [facility] Nucleated RBC/100 WBC (Bld) [Ratio] 0 % 0-5 [facility] - Microbiology an d Antimicrobial susceptibilityOrdered By: Yifan Meza on 11-08-2022 SARS-CoV-2 (COVID-19) RNA LILLIAN+probe Ql (Unsp spec) [facility] MCHC Auto (RBC) [Mass/Vol]Or dered By: Jann Hoffmann on 11-08-2022 MCHC (RBC) [Mass/Vol] 35.0 g/dL 32-36 [facility] Mucus LM Ql (Urine sed)Order ed By: Jann Hoffmann on 11-08-2022 Mucus Ql (Urine sed) 0 SEEN /hpf [facility] Nitrite Test strip Ql (U)Ord ered By: Jann Hoffmann on 11-08-2022 Nitrite Ql (U) Negative Negative [facility] No Panel InformationOrdered By: Jann Hoffmann on 11-08-2022 Estimated Creatinine Clearance Calc 72.16 ml/min [facility] Estimated GFR (MDRD) Amer 88 mL/min >60 [facility] Comment on above: GFR Calc Estimated GFR (MDRD) Non-Af Amer 73 mL/min >60 [facility] Comment on above: Non- GFR Calc Troponin I High Sensitivity 9 pg/mL 3.0-78.0 [facility] Comment on above: Please Note: New Felicita t Units and Gender Specific Reference Ranges. For more information see Policy Stat Procedure [place] High Sensitivity Troponin (TNIH) and attachments. Platelets bldOrdered By: Marquita Hoffmann on 11-08-2022 Platelets (Bld) [#/Vol] 107 10*3/uL 150-450 [facility] Protein Test strip Ql (U)Ord ered By: Jann Hoffmann on 11-08-2022 Protein Ql (U) 15 mg/dl Negative [facility] Serum or plasma albumin yessi urement (mass/volume)Ordered By: Jann Hoffmann on 11-08-2022 Albumin [Mass/Vol] 3.4 g/dL 3.2-5.0 [facility] Serum or plasma albumin/glob ulin mass ratioOrdered By: Jann Hoffmann on 11-08-2022 Albumin/Globulin [Mass ratio] 1.1 {ratio} 0.9-2.4 [facility] Serum or plasma calcium yessi urement (mass/volume)Ordered By: Jann Hoffmann on 11-08-2022 Calcium [Mass/Vol] 8.3 mg/dL 8.5-10.1 [facility] Serum or plasma creatinine m easurement (mass/volume)Ordered By: Jann Hoffmann on 11-08-2022 Creatinine [Mass/Vol] 1.06 mg/dL 0.70-1.30 [facility] Comment on above: The validity of the calculated GFR & GFRAA in patients over 70 years has not been determined. Clinical correlation is essential. Serum or plasma urea nitroge n measurement (mass/volume)Ordered By: Jann Hoffmann on 11-08-2022 Urea nitrogen [Mass/Vol] 11 mg/dL 7-18 [facility] Serum procalcitonin measurem entOrdered By: Bridgett Villagomez on 11-08-2022 Procalcitonin [Mass/Vol] 0.06 ng/mL 0.00-0.09 [facility] Comment on above: A procalcitonin (PCT ) [...] Ql (Urine sed) 0 SEEN /hpf 0-5 [facility] Thin prep Papanicolaou smear with manual screeningOrdered By: Jann Hoffmann on 11-08-2022 Thin prep Papanicolaou smear with manual screening 25 U/L 15-37 [facility] Thin prep Papanicolaou smear with manual screening 11 5-15 [facility] Urine blood detectionOrdered By: Jann Hoffmann on 11-08-2022 RBC Ql (U) 25 /ul Negative [facility] RBC Ql (U) 0-5 SEEN /hpf 0-5 [facility] Urine clarityOrdered By: Marquita Hoffmann on 11-08-2022 Clarity (U) Clear Clear [facility] Urine color determinationOrd ered By: Jann Hoffmann on 11-08-2022 Color (U) Yellow Yellow [facility] Urine glucose detectionOrder ed By: Jann Hoffmann on 11-08-2022 Glucose Ql (U) 1000 mg/dl Normal [facility] Urine leukocyte esterase det ection by dipstickOrdered By: Jann Hoffmann on 11-08-2022 Leukocyte esterase Test strip Ql (U) 25 /ul Negative [facility] Urine pHOrdered By: Jann rayo on 11-08-2022 pH (U) 5.0 [pH] 5.0 - 8.0 [facility] Urine sediment bacteria coun t by microscopy (number/high power field)Ordered By: Jann Hoffmann on 11-08-2022 Bacteria LM.HPF (Urine sed) [#/Area] 0 /[HPF] None Seen [facility] Urine specific gravity measu rementOrdered By: Jann Hoffmann on 11-08-2022 Specific gravity (U) [Rel density] 1.020 1.002-1.03 0 [facility] Urobilinogen Auto test strip Ql (U)Ordered By: Jann Hoffmann on 11-08-2022 Urobilinogen Ql (U) 1 mg/dl Normal [facility] XR WRIST MINIMUM 3 VIEWS RIG [...] Date: 04/30/2021 7:45:14 AM Ordering Provider: [facility] MAXILLOFACIAL W/O CONTRAS Ton 04-21-2021 CT [...] 02/26/2021 7:16:20 PM Ordering Provider: JACKSON Rojas Count Includes [facility] ([place]) .Auto Diffon 03-01-2021 Basophil, Absolute 0.00 10 3/mcL Normal 0.00-0.19 [facility] ([place]) Comment on above: Performed By: #### C BC, ADIFF, ANEU, GFR, CMP, PRO, LAC #### [address] [address] Basophils/100 WBC (Bld) 0.1 % Normal 0.0-2.5 [facility] ([place]) Comment on above: Performed By: #### C BC, ADIFF, ANEU, GFR, CMP, PRO, LAC #### [address] [address] Eosinophil, Absolute 0.10 10 3/mcL Normal 0.00-0.40 [facility] ([place]) Comment on above: Performed By: #### C BC, ADIFF, ANEU, GFR, CMP, PRO, LAC #### [address] [address] Eosinophils/100 WBC (Bld) 1.1 % Normal 0.0-7.0 Count Includes [facility] ([place]) Comment on above: Performed By: #### C BC, ADIFF, ANEU, GFR, CMP, PRO, LAC #### [address] [address] Lymphocyte, Absolute 0.40 10 3/mcL Low 0.77-3.85 [facility] ([place]) Comment on above: Performed By: #### C BC, ADIFF, ANEU, GFR, CMP, PRO, LAC #### [address] [address] Lymphocytes/100 WBC (Bld) 5.2 % Low 10.0-50.0 Count Includes [facility] ([place]) Comment on above: Performed By: #### C BC, ADIFF, ANEU, GFR, CMP, PRO, LAC #### [address] [address] Monocyte, Absolute 0.60 10 3/mcL Normal 0.15-1.00 [facility] ([place]) Comment on above: Performed By: #### C BC, ADIFF, ANEU, GFR, CMP, PRO, LAC #### [address] [address] Monocytes/100 WBC (Bld) 7.6 % Normal 1.7-13.0 [facility] ([place]) Comment on above: Performed By: #### C BC, ADIFF, ANEU, GFR, CMP, PRO, LAC #### [address] [address] Neutrophils/100 WBC (Bld) 86.0 % High 37.0-80.0 Count Includes [facility] ([place]) Comment on above: Performed By: #### C BC, ADIFF, ANEU, GFR, CMP, PRO, LAC #### [address] [address] .GFRon 03-01-2021 GFR 106 ml/min/1.73sqm Normal Count Includes [facility] ([place]) Comment on above: Result Comment: GFR Population [...] ADIFF, ANEU, GFR, CMP, PRO, LAC #### [address] [address] GFR Non- 88 ml/min/1.73sqm Normal Count Includes [facility] ([place]) Comment on above: Result Comment: GFR Population [...] ADIFF, ANEU, GFR, CMP, PRO, LAC #### [address] [address] .NEUABSon 03-01-2021 Neutrophil, Absolute 6.60 10 3/mcL High 2.85-6.16 [facility] ([place]) Comment on above: Performed By: #### C BC, ADIFF, ANEU, GFR, CMP, PRO, LAC #### [address] [address] CBCon 03-01-2021 Erythrocyte distribution width (RBC) [Ratio] 12.7 % Normal 11.5-14.5 Count Includes [facility] ([place]) Comment on above: Performed By: #### C BC, ADIFF, ANEU, GFR, CMP, PRO, LAC #### [address] [address] Hematocrit (Bld) [Volume fraction] 38.6 % Low 42.0-52.0 Count Includes [facility] ([place]) Comment on above: Performed By: #### C BC, ADIFF, ANEU, GFR, CMP, PRO, LAC #### [address] [address] Hgb 13.8 G/dL Low 14.0-18.0 Count Includes [facility] ([place]) Comment on above: Performed By: #### C BC, ADIFF, ANEU, GFR, CMP, PRO, LAC #### [address] [address] MCH (RBC) [Entitic mass] 29.8 pg Normal 27.0-31.2 Count Includes [facility] ([place]) Comment on above: Performed By: #### C BC, ADIFF, ANEU, GFR, CMP, PRO, LAC #### [address] [address] MCHC 35.6 G/dL High 31.8-35.4 Count Includes [facility] ([place]) Comment on above: Performed By: #### C BC, ADIFF, ANEU, GFR, CMP, PRO, LAC #### [address] [address] MCV (RBC) [Entitic vol] 83.8 fL Normal 80.0-94.0 [facility] ([place]) Comment on above: Performed By: #### C BC, ADIFF, ANEU, GFR, CMP, PRO, LAC #### [address] [address] Platelet 256 10 3/mcL Normal 130-400 Count Includes [facility] ([place]) Comment on above: Performed By: #### C BC, ADIFF, ANEU, GFR, CMP, PRO, LAC #### [address] [address] Platelet mean volume (Bld) [Entitic vol] 6.5 fL Low 7.4-10.4 Count Includes [facility] ([place]) Comment on above: Performed By: #### C BC, ADIFF, ANEU, GFR, CMP, PRO, LAC #### [address] [address] RBC 4.61 10 6/mcL Normal 4.04-6.13 Count Includes [facility] ([place]) Comment on above: Performed By: #### C BC, ADIFF, ANEU, GFR, CMP, PRO, LAC #### [address] [address] WBC 7.60 10 3/mcL Normal 4.60-10.80 Count Includes [facility] ([place]) Comment on above: Performed By: #### C BC, ADIFF, ANEU, GFR, CMP, PRO, LAC #### [address] [address] CMPon 03-01-2021 Albumin Level 2.3 G/dL Low 3.4-4.8 Count Includes [facility] ([place]) Comment on above: Performed By: #### C BC, ADIFF, ANEU, GFR, CMP, PRO, LAC #### [address] [address] Albumin/Globulin [Mass ratio] 0.8 {ratio} Low 1.1-2.5 Count Includes [facility] ([place]) Comment on above: Performed By: #### C BC, ADIFF, ANEU, GFR, CMP, PRO, LAC #### [address] [address] ALP [Catalytic activity/Vol] 82 U/L Normal 40-135 Count Includes [facility] ([place]) Comment on above: Performed By: #### C BC, ADIFF, ANEU, GFR, CMP, PRO, LAC #### [address] [address] ALT [Catalytic activity/Vol] 42 U/L Normal 16-63 Count Includes [facility] ([place]) Comment on above: Performed By: #### C BC, ADIFF, ANEU, GFR, CMP, PRO, LAC #### [address] [address] AST [Catalytic activity/Vol] 27 U/L Normal 10-40 Count Includes [facility] ([place]) Comment on above: Performed By: #### C BC, ADIFF, ANEU, GFR, CMP, PRO, LAC #### [address] [address] Bili Total 2.1 mg/dL High 0.2-1.0 Count Includes [facility] ([place]) Comment on above: Result Comment: Use of this assay is not recommended for patients undergoing treatment with eltrombopag due to the potential for falsely elevated results. Performed By: #### C BC, ADIFF, ANEU, GFR, CMP, PRO, LAC #### [address] [address] BUN/Creatinine Ratio 16 ratio Normal 7-27 [facility] ([place]) Comment on above: Performed By: #### C BC, ADIFF, ANEU, GFR, CMP, PRO, LAC #### [address] [address] Calcium [Mass/Vol] 7.6 mg/dL Low 8.4-10.2 [facility] ([place]) Comment on above: Performed By: #### C BC, ADIFF, ANEU, GFR, CMP, PRO, LAC #### [address] [address] Chloride [Moles/Vol] 101 mmol/L Normal 98-107 [facility]) Comment on above: Performed By: #### C BC, ADIFF, ANEU, GFR, CMP, PRO, LAC #### [place] [address] CO2 [Moles/Vol] 22 mmol/L Low 23-31 Count Includes [facility] ([place]) Comment on above: Performed By: #### C BC, ADIFF, ANEU, GFR, CMP, PRO, LAC #### [place] [address] Creatinine [Mass/Vol] 0.86 mg/dL Normal 0.70-1.30 [facility] ([place]) Comment on above: Performed By: #### C BC, ADIFF, ANEU, GFR, CMP, PRO, LAC #### [address] [address] Electrolyte Balance 14.0 mEq/L Normal [facility] ([place]) Comment on above: Performed By: #### C BC, ADIFF, ANEU, GFR, CMP, PRO, LAC #### [address] [address] Globulin 3.0 G/dL Normal Count Includes [facility] ([place]) Comment on above: Performed By: #### C BC, ADIFF, ANEU, GFR, CMP, PRO, LAC #### [place] [address] Glucose [Mass/Vol] 159 mg/dL High 83-110 [facility] ([place]) Comment on above: Performed By: #### C BC, ADIFF, ANEU, GFR, CMP, PRO, LAC #### [address] [address] Potassium [Moles/Vol] 3.6 mmol/L Normal 3.5-5.1 [facility] ([place]) Comment on above: Performed By: #### C BC, ADIFF, ANEU, GFR, CMP, PRO, LAC #### [address] [address] Sodium [Moles/Vol] 137 mmol/L Normal 136-145 [facility]) Comment on above: Performed By: #### C BC, ADIFF, ANEU, GFR, CMP, PRO, LAC #### [address] [address] Total Protein 5.3 G/dL Low 6.4-8.2 [facility]) Comment on above: Performed By: #### C BC, ADIFF, ANEU, GFR, CMP, PRO, LAC #### [address] [address] Urea nitrogen [Mass/Vol] 14 mg/dL Normal 7-18 [facility]) Comment on above: Performed By: #### C BC, ADIFF, ANEU, GFR, CMP, PRO, LAC #### [address] [address] CRPon 03-01-2021 C-Reactive Protein 11.4 mg/dL High 0.0-0.9 [facility] ([place]) Comment on above: Performed By: #### C BC, ADIFF, ANEU, GFR, CMP, PRO, LAC #### [address] [address] DIMERon 03-01-2021 D-Dimer 3542 ng/mL D-DU High 0-230 Count Includes [facility] ([place]) Comment on above: Result Comment: The result [...] ADIFF, ANEU, GFR, CMP, PRO, LAC #### [address] [address] Kristina 03-01-2021 Ferritin [Mass/Vol] 612.5 ng/mL High 26.0-388.0 [facility] ([place]) Comment on above: Performed By: #### C BC, ADIFF, ANEU, GFR, CMP, PRO, LAC #### [place] [place], [place] [address] FIBon 03-01-2021 Fibrinogen 927 mg/dL High 334-713 Count Includes [facility] ([place]) Comment on above: Performed By: #### C BC, ADIFF, ANEU, GFR, CMP, PRO, LAC #### [address] [address] LABORATORYOrdered By: Yesy Bradley on 03-01-2021 Albumin [...] LDHon 03-01-2021 LDH 289 U/L High 85-227 Count Includes [facility] ([place]) Comment on above: Performed By: #### C BC, ADIFF, ANEU, GFR, CMP, PRO, LAC #### [address] [address] MGon 03-01-2021 Magnesium [Mass/Vol] 2.0 mg/dL Normal 1.8-2.4 [facility] ([place]) Comment on above: Performed By: #### C BC, ADIFF, ANEU, GFR, CMP, PRO, LAC #### [address] [address] PROon 03-01-2021 INR Coag (PPP) [Relative time] 1.2 {INR} Normal 0.9-1.2 Count Includes [facility] ([place]) Comment on above: Result Comment: Miguel dard [...] ADIFF, ANEU, GFR, CMP, PRO, LAC #### [address] [address] PT Coag (PPP) [Time] 13.8 s Normal 9.7-14.3 [facility] ([place]) Comment on above: Performed By: #### C BC, ADIFF, ANEU, GFR, CMP, PRO, LAC #### [address] [place], [place] [address] TROPHSon 03-01-2021 Troponin I High Sensitivity 21.8 ng/L Normal 0.0-76.2 Count Includes [facility] ([place]) Comment on above: Performed By: #### C BC, ADIFF, ANEU, GFR, CMP, PRO, LAC #### [place] [place], [place] [address] XR CHEST 1 VIEWon 03-01-2021 XR CHEST [...] Sign Date: 03/01/2021 8:25:08 AM Ordering Provider: CROW Rojas [facility]) .Auto Diffon 02-28-2021 Basophil, Absolute 0.00 10 3/mcL Normal 0.00-0.19 [facility] ([place]) Comment on above: Performed By: #### C BC, ADIFF, ANEU, GFR, CMP, PRO, LAC #### [address] [address] Basophils/100 WBC (Bld) 0.1 % Normal 0.0-2.5 [facility] ([place]) Comment on above: Performed By: #### C BC, ADIFF, ANEU, GFR, CMP, PRO, LAC #### [address] [address] Eosinophil, Absolute 0.00 10 3/mcL Normal 0.00-0.40 [facility] ([place]) Comment on above: Performed By: #### C BC, ADIFF, ANEU, GFR, CMP, PRO, LAC #### [address] [address] Eosinophils/100 WBC (Bld) 0.4 % Normal 0.0-7.0 Count Includes [facility] ([place]) Comment on above: Performed By: #### C BC, ADIFF, ANEU, GFR, CMP, PRO, LAC #### [address] [address] Lymphocyte, Absolute 0.60 10 3/mcL Low 0.77-3.85 [facility] ([place]) Comment on above: Performed By: #### C BC, ADIFF, ANEU, GFR, CMP, PRO, LAC #### [address] [address] Lymphocytes/100 WBC (Bld) 6.8 % Low 10.0-50.0 Count Includes [facility] ([place]) Comment on above: Performed By: #### C BC, ADIFF, ANEU, GFR, CMP, PRO, LAC #### [address] [address] Monocyte, Absolute 0.50 10 3/mcL Normal 0.15-1.00 [facility] ([place]) Comment on above: Performed By: #### C BC, ADIFF, ANEU, GFR, CMP, PRO, LAC #### [address] [address] Monocytes/100 WBC (Bld) 6.0 % Normal 1.7-13.0 [facility] ([place]) Comment on above: Performed By: #### C BC, ADIFF, ANEU, GFR, CMP, PRO, LAC #### [address] [address] Neutrophils/100 WBC (Bld) 86.7 % High 37.0-80.0 Count Includes [facility] ([place]) Comment on above: Performed By: #### C BC, ADIFF, ANEU, GFR, CMP, PRO, LAC #### [address] [address] .GFRon 02-28-2021 GFR 103 ml/min/1.73sqm Normal Count Includes [facility] ([place]) Comment on above: Result Comment: GFR Population [...] ADIFF, ANEU, GFR, CMP, PRO, LAC #### [address] [address] GFR Non- 85 ml/min/1.73sqm Normal Count Includes [facility] ([place]) Comment on above: Result Comment: GFR Population [...] ADIFF, ANEU, GFR, CMP, PRO, LAC #### [address] [address] .NEUABSon 02-28-2021 Neutrophil, Absolute 7.80 10 3/mcL High 2.85-6.16 [facility] ([place]) Comment on above: Performed By: #### C BC, ADIFF, ANEU, GFR, CMP, PRO, LAC #### [address] [address] CBCon 02-28-2021 Erythrocyte distribution width (RBC) [Ratio] 12.7 % Normal 11.5-14.5 Count Includes [facility] ([place]) Comment on above: Performed By: #### C BC, ADIFF, ANEU, GFR, CMP, PRO, LAC #### [place] [address] Hematocrit (Bld) [Volume fraction] 38.5 % Low 42.0-52.0 Count Includes [facility] ([place]) Comment on above: Performed By: #### C BC, ADIFF, ANEU, GFR, CMP, PRO, LAC #### [place] [address] Hgb 13.8 G/dL Low 14.0-18.0 Count Includes [facility] ([place]) Comment on above: Performed By: #### C BC, ADIFF, ANEU, GFR, CMP, PRO, LAC #### [address] [address] MCH (RBC) [Entitic mass] 30.2 pg Normal 27.0-31.2 Count Includes [facility] ([place]) Comment on above: Performed By: #### C BC, ADIFF, ANEU, GFR, CMP, PRO, LAC #### [place] [address] MCHC 35.8 G/dL High 31.8-35.4 Count Includes [facility] ([place]) Comment on above: Performed By: #### C BC, ADIFF, ANEU, GFR, CMP, PRO, LAC #### [place] [address] MCV (RBC) [Entitic vol] 84.2 fL Normal 80.0-94.0 [facility] ([place]) Comment on above: Performed By: #### C BC, ADIFF, ANEU, GFR, CMP, PRO, LAC #### [address] [place] [address] Platelet 225 10 3/mcL Normal 130-400 Count Includes [facility] ([place]) Comment on above: Performed By: #### C BC, ADIFF, ANEU, GFR, CMP, PRO, LAC #### [address] [address] Platelet mean volume (Bld) [Entitic vol] 6.6 fL Low 7.4-10.4 Count Includes [facility] ([place]) Comment on above: Performed By: #### C BC, ADIFF, ANEU, GFR, CMP, PRO, LAC #### [address] [address] RBC 4.57 10 6/mcL Normal 4.04-6.13 Count Includes [facility] ([place]) Comment on above: Performed By: #### C BC, ADIFF, ANEU, GFR, CMP, PRO, LAC #### [place] [address] WBC 9.00 10 3/mcL Normal 4.60-10.80 Count Includes [facility] ([place]) Comment on above: Performed By: #### C BC, ADIFF, ANEU, GFR, CMP, PRO, LAC #### [address] [address] CMPon 02-28-2021 Albumin Level 2.5 G/dL Low 3.4-4.8 Count Includes [facility] ([place]) Comment on above: Performed By: #### C BC, ADIFF, ANEU, GFR, CMP, PRO, LAC #### [address] [address] Albumin/Globulin [Mass ratio] 0.8 {ratio} Low 1.1-2.5 Count Includes [facility] ([place]) Comment on above: Performed By: #### C BC, ADIFF, ANEU, GFR, CMP, PRO, LAC #### [address] [address] ALP [Catalytic activity/Vol] 73 U/L Normal 40-135 Count Includes [facility] ([place]) Comment on above: Performed By: #### C BC, ADIFF, ANEU, GFR, CMP, PRO, LAC #### [address] [address] ALT [Catalytic activity/Vol] 44 U/L Normal 16-63 Count Includes [facility] ([place]) Comment on above: Performed By: #### C BC, ADIFF, ANEU, GFR, CMP, PRO, LAC #### [address] [address] AST [Catalytic activity/Vol] 29 U/L Normal 10-40 Count Includes [facility] ([place]) Comment on above: Performed By: #### C BC, ADIFF, ANEU, GFR, CMP, PRO, LAC #### [address] [address] Bili Total 2.0 mg/dL High 0.2-1.0 Count Includes [facility] ([place]) Comment on above: Result Comment: Use of this assay is not recommended for patients undergoing treatment with eltrombopag due to the potential for falsely elevated results. Performed By: #### C BC, ADIFF, ANEU, GFR, CMP, PRO, LAC #### [address] [address] BUN/Creatinine Ratio 15 ratio Normal 7-27 [facility] ([place]) Comment on above: Performed By: #### C BC, ADIFF, ANEU, GFR, CMP, PRO, LAC #### [address] [address] Calcium [Mass/Vol] 7.8 mg/dL Low 8.4-10.2 [facility] ([place]) Comment on above: Performed By: #### C BC, ADIFF, ANEU, GFR, CMP, PRO, LAC #### [address] [address] Chloride [Moles/Vol] 102 mmol/L Normal 98-107 [facility] ([place]) Comment on above: Performed By: #### C BC, ADIFF, ANEU, GFR, CMP, PRO, LAC #### [address] [address] CO2 [Moles/Vol] 24 mmol/L Normal 23-31 Count Includes [facility] ([place]) Comment on above: Performed By: #### C BC, ADIFF, ANEU, GFR, CMP, PRO, LAC #### [address] [address] Creatinine [Mass/Vol] 0.88 mg/dL Normal 0.70-1.30 [facility] ([place]) Comment on above: Performed By: #### C BC, ADIFF, ANEU, GFR, CMP, PRO, LAC #### [address] [address] Electrolyte Balance 10.0 mEq/L Normal [facility] ([place]) Comment on above: Performed By: #### C BC, ADIFF, ANEU, GFR, CMP, PRO, LAC #### [address] [address] Globulin 3.0 G/dL Normal Count Includes [facility] ([place]) Comment on above: Performed By: #### C BC, ADIFF, ANEU, GFR, CMP, PRO, LAC #### [address] [address] Glucose [Mass/Vol] 154 mg/dL High 83-110 [facility] ([place]) Comment on above: Performed By: #### C BC, ADIFF, ANEU, GFR, CMP, PRO, LAC #### [address] [address] Potassium [Moles/Vol] 3.8 mmol/L Normal 3.5-5.1 [facility] ([place]) Comment on above: Performed By: #### C BC, ADIFF, ANEU, GFR, CMP, PRO, LAC #### [address] [address] Sodium [Moles/Vol] 136 mmol/L Normal 136-145 [facility] ([place]) Comment on above: Performed By: #### C BC, ADIFF, ANEU, GFR, CMP, PRO, LAC #### [address] [address] Total Protein 5.5 G/dL Low 6.4-8.2 Count Includes [facility] ([place]) Comment on above: Performed By: #### C BC, ADIFF, ANEU, GFR, CMP, PRO, LAC #### [address] [address] Urea nitrogen [Mass/Vol] 13 mg/dL Normal 7-18 Count Includes [facility] ([place]) Comment on above: Performed By: #### C BC, ADIFF, ANEU, GFR, CMP, PRO, LAC #### [address] [place], [place] [address] CRPon 02-28-2021 C-Reactive Protein 11.4 mg/dL High 0.0-0.9 [facility] ([place]) Comment on above: Performed By: #### C BC, ADIFF, ANEU, GFR, CMP, PRO, LAC #### [address] [place], [place] [address] DIMERon 02-28-2021 D-Dimer 2603 ng/mL D-DU High 0-230 Count Includes [facility] ([place]) Comment on above: Result Comment: The result [...] ADIFF, ANEU, GFR, CMP, PRO, LAC #### [address] [address] Kristina 02-28-2021 Ferritin [Mass/Vol] 611.0 ng/mL High 26.0-388.0 [facility] ([place]) Comment on above: Performed By: #### C BC, ADIFF, ANEU, GFR, CMP, PRO, LAC #### [address] [address] FIBon 02-28-2021 Fibrinogen 802 mg/dL High 334-713 Count Includes [facility] ([place]) Comment on above: Performed By: #### C BC, ADIFF, ANEU, GFR, CMP, PRO, LAC #### [facility] [address] [place], [place] [address] LABORATORYOrdered By: Rosie Carrillo on 02-28-2021 Blood Glucose Testing Reason Routine (02/28/21 10:24 PM) [facility] Work Phone: Glucose [Mass/Vol] 169 mg/dL Invalid Interpretation Code 82 - 115 mg/dL [facility] Work Phone: LABORATORYOrdered By: Ana Bird on 02-28-2021 Blood Glucose Testing Reason Routine (02/28/21 9:43 PM) [facility] Work Phone: Glucose [Mass/Vol] 169 mg/dL Invalid Interpretation Code 82 - 115 mg/dL [facility] Work Phone: LABORATORYOrdered By: Vicki Tejada on 02-28-2021 Blood Glucose Testing Reason Routine (02/28/21 11:39 AM) [facility] Work Phone: Glucose [Mass/Vol] 157 mg/dL Invalid Interpretation Code 82 - 115 mg/dL [facility] Work Phone: LABORATORYOrdered By: Yesy Bradley on [...] LDHon 02-28-2021 LDH 329 U/L High 85-227 Count Includes [facility] ([place]) Comment on above: Performed By: #### C BC, ADIFF, ANEU, GFR, CMP, PRO, LAC #### [address] [address] MGon 02-28-2021 Magnesium [Mass/Vol] 2.3 mg/dL Normal 1.8-2.4 [facility] ([place]) Comment on above: Performed By: #### C BC, ADIFF, ANEU, GFR, CMP, PRO, LAC #### [address] [address] MYCOon 02-28-2021 Mycoplasma IgG Positive Normal Count Includes [facility] ([place]) Comment on above: Result Comment: INTE RPRETATION [...] ADIFF, ANEU, GFR, CMP, PRO, LAC #### [address] [address] Mycoplasma IgM Negative Normal Count Includes [facility] ([place]) Comment on above: Result Comment: INTE RPRETATION [...] ADIFF, ANEU, GFR, CMP, PRO, LAC #### [place] [id number] PROon 02-28-2021 INR Coag (PPP) [Relative time] 1.1 {INR} Normal 0.9-1.2 Count Includes [facility] ([place]) Comment on above: Result Comment: Miguel dard [...] ADIFF, ANEU, GFR, CMP, PRO, LAC #### [place] [address] PT Coag (PPP) [Time] 12.6 s Normal 9.7-14.3 [facility] ([place]) Comment on above: Performed By: #### C BC, ADIFF, ANEU, GFR, CMP, PRO, LAC #### [address] [address] TROPHSon 02-28-2021 Troponin I High Sensitivity 16.4 ng/L Normal 0.0-76.2 Count Includes [facility] ([place]) Comment on above: Performed By: #### C BC, ADIFF, ANEU, GFR, CMP, PRO, LAC #### [place] [address] .Auto Diffon 02-27-2021 Basophil, Absolute 0.00 10 3/mcL Normal 0.00-0.19 [facility] ([place]) Comment on above: Performed By: #### C BC, ADIFF, ANEU, GFR, CMP, PRO, LAC #### [address] [address] Basophils/100 WBC (Bld) 0.0 % Normal 0.0-2.5 [facility] ([place]) Comment on above: Performed By: #### C BC, ADIFF, ANEU, GFR, CMP, PRO, LAC #### [address] [address] Eosinophil, Absolute 0.00 10 3/mcL Normal 0.00-0.40 [facility] ([place]) Comment on above: Performed By: #### C BC, ADIFF, ANEU, GFR, CMP, PRO, LAC #### [address] [address] Eosinophils/100 WBC (Bld) 0.0 % Normal 0.0-7.0 Count Includes [facility] ([place]) Comment on above: Performed By: #### C BC, ADIFF, ANEU, GFR, CMP, PRO, LAC #### [address] [address] Lymphocyte, Absolute 0.30 10 3/mcL Low 0.77-3.85 [facility] ([place]) Comment on above: Performed By: #### C BC, ADIFF, ANEU, GFR, CMP, PRO, LAC #### [address] [address] Lymphocytes/100 WBC (Bld) 2.9 % Low 10.0-50.0 Count Includes [facility] ([place]) Comment on above: Performed By: #### C BC, ADIFF, ANEU, GFR, CMP, PRO, LAC #### [address] [address] Monocyte, Absolute 0.30 10 3/mcL Normal 0.15-1.00 [facility] ([place]) Comment on above: Performed By: #### C BC, ADIFF, ANEU, GFR, CMP, PRO, LAC #### [address] [address] Monocytes/100 WBC (Bld) 3.3 % Normal 1.7-13.0 [facility] ([place]) Comment on above: Performed By: #### C BC, ADIFF, ANEU, GFR, CMP, PRO, LAC #### [address] [address] Neutrophils/100 WBC (Bld) 93.8 % High 37.0-80.0 Count Includes [facility] ([place]) Comment on above: Performed By: #### C BC, ADIFF, ANEU, GFR, CMP, PRO, LAC #### [address] [address] .GFRon 02-27-2021 GFR 95 ml/min/1.73sqm Normal Count Includes [facility] ([place]) Comment on above: Result Comment: GFR Population [...] ADIFF, ANEU, GFR, CMP, PRO, LAC #### [address] [address] GFR Non- 78 ml/min/1.73sqm Normal Count Includes [facility] ([place]) Comment on above: Result Comment: GFR Population [...] ADIFF, ANEU, GFR, CMP, PRO, LAC #### [address] [address] GFR 109 ml/min/1.73sqm Normal Count Includes [facility] ([place]) Comment on above: Result Comment: GFR Population [...] ADIFF, ANEU, GFR, CMP, PRO, LAC #### [address] [address] GFR Non- 90 ml/min/1.[facility] ([place]) Comment on above: Result Comment: GFR Population [...] ADIFF, ANEU, GFR, CMP, PRO, LAC #### [address] [address] .NEUABSon 02-27-2021 Neutrophil, Absolute 8.90 10 3/mcL High 2.85-6.16 [facility] ([place]) Comment on above: Performed By: #### C BC, ADIFF, ANEU, GFR, CMP, PRO, LAC #### [address] [address] ABGon 02-27-2021 Base excess Calc (Bld) [Moles/Vol] -1.0000 mmol/L Normal -2.4-2.3 Count Includes [facility] ([place]) Comment on above: Performed By: #### C BC, ADIFF, ANEU, GFR, CMP, PRO, LAC #### [place] [id number] CO2 [Moles/Vol] 23 mmol/L Normal 19-24 Count Includes [facility] ([place]) Comment on above: Performed By: #### C BC, ADIFF, ANEU, GFR, CMP, PRO, LAC #### [address] [address] HCO3 (Bld) [Moles/Vol] 22.3 mmol/L Normal 22.0-26.0 [facility] ([place]) Comment on above: Performed By: #### C BC, ADIFF, ANEU, GFR, CMP, PRO, LAC #### [address] [address] Oxygen (Bld) [Partial pressure] 65.0 mm[Hg] Low 80.0-100.0 Count Includes [facility] ([place]) Comment on above: Performed By: #### C BC, ADIFF, ANEU, GFR, CMP, PRO, LAC #### [address] [address] Oxygen saturation in Blood 94 % Low 95-98 Count Includes [facility] ([place]) Comment on above: Performed By: #### C BC, ADIFF, ANEU, GFR, CMP, PRO, LAC #### [address] [address] pCO2 29.4 mmHg Low 35.0-45.0 Count Includes [facility] ([place]) Comment on above: Performed By: #### C BC, ADIFF, ANEU, GFR, CMP, PRO, LAC #### [address] [address] pH (Bld) 7.49 [pH] High 7.35-7.45 Count Includes [facility] ([place]) Comment on above: Performed By: #### C BC, ADIFF, ANEU, GFR, CMP, PRO, LAC #### [address] [address] BMPon 02-27-2021 BUN/Creatinine Ratio 14 ratio Normal 7-27 [facility] ([place]) Comment on above: Performed By: #### C BC, ADIFF, ANEU, GFR, CMP, PRO, LAC #### [address] [address] Calcium [Mass/Vol] 7.6 mg/dL Low 8.4-10.2 [facility] ([place]) Comment on above: Performed By: #### C BC, ADIFF, ANEU, GFR, CMP, PRO, LAC #### [address] [address] Chloride [Moles/Vol] 100 mmol/L Normal 98-107 [facility] ([place]) Comment on above: Performed By: #### C BC, ADIFF, ANEU, GFR, CMP, PRO, LAC #### [address] [address] CO2 [Moles/Vol] 22 mmol/L Low 23-31 Count Includes [facility] ([place]) Comment on above: Performed By: #### C BC, ADIFF, ANEU, GFR, CMP, PRO, LAC #### [address] [address] Creatinine [Mass/Vol] 0.95 mg/dL Normal 0.70-1.30 [facility] ([place]) Comment on above: Performed By: #### C BC, ADIFF, ANEU, GFR, CMP, PRO, LAC #### [address] [address] Electrolyte Balance 13.0 mEq/L Normal [facility] ([place]) Comment on above: Performed By: #### C BC, ADIFF, ANEU, GFR, CMP, PRO, LAC #### [address] [address] Glucose [Mass/Vol] 225 mg/dL High 83-110 [facility] ([place]) Comment on above: Performed By: #### C BC, ADIFF, ANEU, GFR, CMP, PRO, LAC #### [address] [address] Potassium [Moles/Vol] 3.4 mmol/L Low 3.5-5.1 [facility] ([place]) Comment on above: Performed By: #### C BC, ADIFF, ANEU, GFR, CMP, PRO, LAC #### [address] [address] Sodium [Moles/Vol] 135 mmol/L Low 136-145 [facility] ([place]) Comment on above: Performed By: #### C BC, ADIFF, ANEU, GFR, CMP, PRO, LAC #### [address] [address] Urea nitrogen [Mass/Vol] 13 mg/dL Normal 7-18 Count Includes [facility] ([place]) Comment on above: Performed By: #### C BC, ADIFF, ANEU, GFR, CMP, PRO, LAC #### [address] [address] BUN/Creatinine Ratio 14 ratio Normal 7-27 [facility] ([place]) Comment on above: Performed By: #### C BC, ADIFF, ANEU, GFR, CMP, PRO, LAC #### [address] [address] Calcium [Mass/Vol] 7.2 mg/dL Low 8.4-10.2 [facility] ([place]) Comment on above: Performed By: #### C BC, ADIFF, ANEU, GFR, CMP, PRO, LAC #### [address] [address] Chloride [Moles/Vol] 100 mmol/L Normal 98-107 [facility] ([place]) Comment on above: Performed By: #### C BC, ADIFF, ANEU, GFR, CMP, PRO, LAC #### [address] [address] CO2 [Moles/Vol] 20 mmol/L Low 23-31 Count Includes [facility] ([place]) Comment on above: Performed By: #### C BC, ADIFF, ANEU, GFR, CMP, PRO, LAC #### [address] [address] Creatinine [Mass/Vol] 0.84 mg/dL Normal 0.70-1.30 [facility] ([place]) Comment on above: Performed By: #### C BC, ADIFF, ANEU, GFR, CMP, PRO, LAC #### [address] [address] Electrolyte Balance 14.0 mEq/L Normal [facility] ([place]) Comment on above: Performed By: #### C BC, ADIFF, ANEU, GFR, CMP, PRO, LAC #### [address] [address] Glucose [Mass/Vol] 203 mg/dL High 83-110 [facility] ([place]) Comment on above: Performed By: #### C BC, ADIFF, ANEU, GFR, CMP, PRO, LAC #### [address] [address] Potassium [Moles/Vol] 3.4 mmol/L Low 3.5-5.1 [facility] ([place]) Comment on above: Performed By: #### C BC, ADIFF, ANEU, GFR, CMP, PRO, LAC #### [address] [address] Sodium [Moles/Vol] 134 mmol/L Low 136-145 [facility] ([place]) Comment on above: Performed By: #### C BC, ADIFF, ANEU, GFR, CMP, PRO, LAC #### [address] [address] Urea nitrogen [Mass/Vol] 12 mg/dL Normal 7-18 Count Includes [facility] ([place]) Comment on above: Performed By: #### C BC, ADIFF, ANEU, GFR, CMP, PRO, LAC #### [address] [address] CBCon 02-27-2021 Erythrocyte distribution width (RBC) [Ratio] 12.7 % Normal 11.5-14.5 Count Includes [facility] ([place]) Comment on above: Performed By: #### C BC, ADIFF, ANEU, GFR, CMP, PRO, LAC #### [address] [address] Hematocrit (Bld) [Volume fraction] 36.8 % Low 42.0-52.0 Count Includes [facility] ([place]) Comment on above: Performed By: #### C BC, ADIFF, ANEU, GFR, CMP, PRO, LAC #### [place] [address] Hgb 13.3 G/dL Low 14.0-18.0 Count Includes [facility] ([place]) Comment on above: Performed By: #### C BC, ADIFF, ANEU, GFR, CMP, PRO, LAC #### [address] [address] MCH (RBC) [Entitic mass] 30.2 pg Normal 27.0-31.2 Count Includes [facility] ([place]) Comment on above: Performed By: #### C BC, ADIFF, ANEU, GFR, CMP, PRO, LAC #### [place] [address] MCHC 36.2 G/dL High 31.8-35.4 Count Includes [facility] ([place]) Comment on above: Performed By: #### C BC, ADIFF, ANEU, GFR, CMP, PRO, LAC #### [place] [address] MCV (RBC) [Entitic vol] 83.5 fL Normal 80.0-94.0 [facility] ([place]) Comment on above: Performed By: #### C BC, ADIFF, ANEU, GFR, CMP, PRO, LAC #### [address] [address] Platelet 228 10 3/mcL Normal 130-400 Count Includes [facility] ([place]) Comment on above: Performed By: #### C BC, ADIFF, ANEU, GFR, CMP, PRO, LAC #### [address] [address] Platelet mean volume (Bld) [Entitic vol] 6.7 fL Low 7.4-10.4 Count Includes [facility] ([place]) Comment on above: Performed By: #### C BC, ADIFF, ANEU, GFR, CMP, PRO, LAC #### [address] [address] RBC 4.40 10 6/mcL Normal 4.04-6.13 Count Includes [facility] ([place]) Comment on above: Performed By: #### C BC, ADIFF, ANEU, GFR, CMP, PRO, LAC #### [address] [address] WBC 9.50 10 3/mcL Normal 4.60-10.80 Count Includes [facility] ([place]) Comment on above: Performed By: #### C BC, ADIFF, ANEU, GFR, CMP, PRO, LAC #### [address] [address] CRPon 02-27-2021 CRP [Mass/Vol] mg/L High 0.0-0.9 Count Includes [facility] ([place]) Comment on above: Performed By: #### C BC, ADIFF, ANEU, GFR, CMP, PRO, LAC #### [address] [address] Kristina 02-27-2021 Ferritin [Mass/Vol] 489.0 ng/mL High 26.0-388.0 [facility] ([place]) Comment on above: Performed By: #### C BC, ADIFF, ANEU, GFR, CMP, PRO, LAC #### [address] [address] FIBon 02-27-2021 Fibrinogen 884 mg/dL High 334-713 Count Includes [facility] ([place]) Comment on above: Performed By: #### C BC, ADIFF, ANEU, GFR, CMP, PRO, LAC #### [place] [address] LABORATORYOrdered By: Jaylene Gaffney on 02-27-2021 Natriuretic [...] Lactic Acid Lvl 1.5 mmol/L Normal 0.4-2.0 Count Includes [facility] ([place]) Comment on above: Performed By: #### C BC, ADIFF, ANEU, GFR, CMP, PRO, LAC #### [address] [address] Lactic Acid Lvl 2.7 mmol/L High 0.4-2.0 Count Includes [facility] ([place]) Comment on above: Performed By: #### C BC, ADIFF, ANEU, GFR, CMP, PRO, LAC #### [address] [address] LDHon 02-27-2021 LDH 379 U/L High 85-227 Count Includes [facility] ([place]) Comment on above: Performed By: #### C BC, ADIFF, ANEU, GFR, CMP, PRO, LAC #### [address] [address] MGon 02-27-2021 Magnesium [Mass/Vol] 1.7 mg/dL Low 1.8-2.4 [facility] ([place]) Comment on above: Performed By: #### C BC, ADIFF, ANEU, GFR, CMP, PRO, LAC #### [address] [address] No Panel Informationon 02-27 Legionella Urine Ag Presumptive negative for L. pneumophila serogroup 1 antigen in urine, suggesting no recent or current infection. Legionnaire's disease cannot be ruled out since other serogroups and species may also cause disease. [facility] Work Phone: Streptococcus Pneumoniae Urine Antig Presumptive negative for pneumococcal pneumonia, suggesting no current or recent pneumococcal infection. Infection due to Strep pneumoniae cannot be ruled out since the antigen present in the sample may be below the detection limit of the test. [facility] Work Phone: Comment on above: This test has not be en evaluated on patients taking antibiotics for greater than 24 hours or on patients who have recently completed an antibiotic regimen. The accuracy of this test has not been proven in young children. PBNPon 02-27-2021 Natriuretic peptide B (Bld) [Mass/Vol] 1235 pg/mL High 0-125 Count Includes [facility] ([place]) Comment on above: Result Comment: NT-p roBNP results of less than 300 pg/mL effectively rules out acute congestive heart failure with 99% negative predictive value. Performed By: #### C BC, ADIFF, ANEU, GFR, CMP, PRO, LAC #### [place] [id number] PROon 02-27-2021 INR Coag (PPP) [Relative time] 1.2 {INR} Normal 0.9-1.2 Count Includes [facility] ([place]) Comment on above: Result Comment: Miguel dard [...] ADIFF, ANEU, GFR, CMP, PRO, LAC #### [place] [address] PT Coag (PPP) [Time] 13.3 s Normal 9.7-14.3 [facility] ([place]) Comment on above: Performed By: #### C BC, ADIFF, ANEU, GFR, CMP, PRO, LAC #### [address] [address] TROPHSon 02-27-2021 Troponin I High Sensitivity 34.3 ng/L Normal 0.0-76.2 Count Includes [facility] ([place]) Comment on above: Performed By: #### C BC, ADIFF, ANEU, GFR, CMP, PRO, LAC #### [address] [address] .Auto Diffon 02-26-2021 Basophil, Absolute 0.00 10 3/mcL Normal 0.00-0.19 [facility] ([place]) Comment on above: Performed By: #### C BC, ADIFF, ANEU, GFR, CMP, PRO, LAC #### [address] [address] Basophils/100 WBC (Bld) 0.1 % Normal 0.0-2.5 [facility] ([place]) Comment on above: Performed By: #### C BC, ADIFF, ANEU, GFR, CMP, PRO, LAC #### [address] [address] Eosinophil, Absolute 0.00 10 3/mcL Normal 0.00-0.40 [facility] ([place]) Comment on above: Performed By: #### C BC, ADIFF, ANEU, GFR, CMP, PRO, LAC #### [address] [address] Eosinophils/100 WBC (Bld) 0.0 % Normal 0.0-7.0 Count Includes [facility] ([place]) Comment on above: Performed By: #### C BC, ADIFF, ANEU, GFR, CMP, PRO, LAC #### [address] [address] Lymphocyte, Absolute 0.30 10 3/mcL Low 0.77-3.85 [facility] ([place]) Comment on above: Performed By: #### C BC, ADIFF, ANEU, GFR, CMP, PRO, LAC #### [address] [address] Lymphocytes/100 WBC (Bld) 2.8 % Low 10.0-50.0 Count Includes [facility] ([place]) Comment on above: Performed By: #### C BC, ADIFF, ANEU, GFR, CMP, PRO, LAC #### [address] [address] Monocyte, Absolute 0.50 10 3/mcL Normal 0.15-1.00 [facility] ([place]) Comment on above: Performed By: #### C BC, ADIFF, ANEU, GFR, CMP, PRO, LAC #### [address] [address] Monocytes/100 WBC (Bld) 5.1 % Normal 1.7-13.0 [facility] ([place]) Comment on above: Performed By: #### C BC, ADIFF, ANEU, GFR, CMP, PRO, LAC #### [address] [address] Neutrophils/100 WBC (Bld) 92.0 % High 37.0-80.0 Count Includes [facility] ([place]) Comment on above: Performed By: #### C BC, ADIFF, ANEU, GFR, CMP, PRO, LAC #### [address] [address] .GFRon 02-26-2021 GFR 74 ml/min/1.73sqm Normal Count Includes [facility] ([place]) Comment on above: Result Comment: GFR Population [...] ADIFF, ANEU, GFR, CMP, PRO, LAC #### [place] [address] [place], [place] [address] GFR Non- 61 ml/min/1.73sqm Normal Count Includes [facility] ([place]) Comment on above: Result Comment: GFR Population [...] ADIFF, ANEU, GFR, CMP, PRO, LAC #### [place] [id number] .NEUABSon 02-26-2021 Neutrophil, Absolute 9.80 10 3/mcL High 2.85-6.16 [facility] ([place]) Comment on above: Performed By: #### C BC, ADIFF, ANEU, GFR, CMP, PRO, LAC #### [place] [address] .Urinalysis Microscopic (AO) on 02-26-2021 UA RBC 0-5 Abnormal None Seen Count Includes [facility] ([place]) Comment on above: Performed By: #### C BC, ADIFF, ANEU, GFR, CMP, PRO, LAC #### [place] [address] UA Squam Epithelial None Seen Normal None Seen [facility] ([place]) Comment on above: Performed By: #### C BC, ADIFF, ANEU, GFR, CMP, PRO, LAC #### [place] [address] UA Transitional Epithelial 0-5 Abnormal Count Includes [facility] ([place]) Comment on above: Performed By: #### C BC, ADIFF, ANEU, GFR, CMP, PRO, LAC #### [place] [address] UA WBC 0-5 Abnormal None Seen Count Includes [facility] ([place]) Comment on above: Performed By: #### C BC, ADIFF, ANEU, GFR, CMP, PRO, LAC #### [place] [address] CBCon 02-26-2021 Erythrocyte distribution width (RBC) [Ratio] 12.7 % Normal 11.5-14.5 Count Includes [facility] ([place]) Comment on above: Performed By: #### C BC, ADIFF, ANEU, GFR, CMP, PRO, LAC #### [address] [address] Hematocrit (Bld) [Volume fraction] 44.8 % Normal 42.0-52.0 Count Includes [facility] ([place]) Comment on above: Performed By: #### C BC, ADIFF, ANEU, GFR, CMP, PRO, LAC #### [address] [address] Hgb 15.8 G/dL Normal 14.0-18.0 Count Includes [facility] ([place]) Comment on above: Performed By: #### C BC, ADIFF, ANEU, GFR, CMP, PRO, LAC #### [address] [address] MCH (RBC) [Entitic mass] 29.9 pg Normal 27.0-31.2 Count Includes [facility] ([place]) Comment on above: Performed By: #### C BC, ADIFF, ANEU, GFR, CMP, PRO, LAC #### [address] [address] MCHC 35.3 G/dL Normal 31.8-35.4 Count Includes [facility] ([place]) Comment on above: Performed By: #### C BC, ADIFF, ANEU, GFR, CMP, PRO, LAC #### [address] [address] MCV (RBC) [Entitic vol] 84.6 fL Normal 80.0-94.0 [facility] ([place]) Comment on above: Performed By: #### C BC, ADIFF, ANEU, GFR, CMP, PRO, LAC #### [address] [address] Platelet 269 10 3/mcL Normal 130-400 Count Includes [facility] ([place]) Comment on above: Performed By: #### C BC, ADIFF, ANEU, GFR, CMP, PRO, LAC #### [address] [address] Platelet mean volume (Bld) [Entitic vol] 6.7 fL Low 7.4-10.4 Count Includes [facility] ([place]) Comment on above: Performed By: #### C BC, ADIFF, ANEU, GFR, CMP, PRO, LAC #### [address] [address] RBC 5.30 10 6/mcL Normal 4.04-6.13 Count Includes [facility] ([place]) Comment on above: Performed By: #### C BC, ADIFF, ANEU, GFR, CMP, PRO, LAC #### [address] [address] WBC 10.70 10 3/mcL Normal 4.60-10.80 Count Includes [facility] ([place]) Comment on above: Performed By: #### C BC, ADIFF, ANEU, GFR, CMP, PRO, LAC #### [address] [address] CMPon 02-26-2021 Albumin Level 3.0 G/dL Low 3.4-4.8 Count Includes [facility] ([place]) Comment on above: Performed By: #### C BC, ADIFF, ANEU, GFR, CMP, PRO, LAC #### [address] [address] Albumin/Globulin [Mass ratio] 0.9 {ratio} Low 1.1-2.5 Count Includes [facility] ([place]) Comment on above: Performed By: #### C BC, ADIFF, ANEU, GFR, CMP, PRO, LAC #### [address] [address] ALP [Catalytic activity/Vol] 93 U/L Normal 40-135 Count Includes [facility] ([place]) Comment on above: Performed By: #### C BC, ADIFF, ANEU, GFR, CMP, PRO, LAC #### [address] [address] ALT [Catalytic activity/Vol] 63 U/L Normal 16-63 Count Includes [facility] ([place]) Comment on above: Performed By: #### C BC, ADIFF, ANEU, GFR, CMP, PRO, LAC #### [address] [address] AST [Catalytic activity/Vol] 37 U/L Normal 10-40 Count Includes [facility] ([place]) Comment on above: Performed By: #### C BC, ADIFF, ANEU, GFR, CMP, PRO, LAC #### [address] [address] Bili Total 2.0 mg/dL High 0.2-1.0 Count Includes [facility] ([place]) Comment on above: Result Comment: Use of this assay is not recommended for patients undergoing treatment with eltrombopag due to the potential for falsely elevated results. Performed By: #### C BC, ADIFF, ANEU, GFR, CMP, PRO, LAC #### [address] [address] BUN/Creatinine Ratio 12 ratio Normal 7-27 [facility] ([place]) Comment on above: Performed By: #### C BC, ADIFF, ANEU, GFR, CMP, PRO, LAC #### [address] [address] Calcium [Mass/Vol] 8.2 mg/dL Low 8.4-10.2 [facility] ([place]) Comment on above: Performed By: #### C BC, ADIFF, ANEU, GFR, CMP, PRO, LAC #### [address] [address] Chloride [Moles/Vol] 96 mmol/L Low 98-107 [facility] ([place]) Comment on above: Performed By: #### C BC, ADIFF, ANEU, GFR, CMP, PRO, LAC #### [address] [address] CO2 [Moles/Vol] 22 mmol/L Low 23-31 Count Includes [facility] ([place]) Comment on above: Performed By: #### C BC, ADIFF, ANEU, GFR, CMP, PRO, LAC #### [address] [address] Electrolyte Balance 16.0 mEq/L Normal [facility] ([place]) Comment on above: Performed By: #### C BC, ADIFF, ANEU, GFR, CMP, PRO, LAC #### [address] [address] Globulin 3.3 G/dL Normal Count Includes [facility] ([place]) Comment on above: Performed By: #### C BC, ADIFF, ANEU, GFR, CMP, PRO, LAC #### [address] [address] Glucose [Mass/Vol] 253 mg/dL High 83-110 [facility] ([place]) Comment on above: Performed By: #### C BC, ADIFF, ANEU, GFR, CMP, PRO, LAC #### [address] [address] Potassium [Moles/Vol] 3.5 mmol/L Normal 3.5-5.1 [facility] ([place]) Comment on above: Performed By: #### C BC, ADIFF, ANEU, GFR, CMP, PRO, LAC #### [address] [address] Sodium [Moles/Vol] 134 mmol/L Low 136-145 [facility] ([place]) Comment on above: Performed By: #### C BC, ADIFF, ANEU, GFR, CMP, PRO, LAC #### [address] [address] Total Protein 6.3 G/dL Low 6.4-8.2 Count Includes [facility] ([place]) Comment on above: Performed By: #### C BC, ADIFF, ANEU, GFR, CMP, PRO, LAC #### [address] [address] Urea nitrogen [Mass/Vol] 14 mg/dL Normal 7-18 Count Includes [facility] ([place]) Comment on above: Performed By: #### C BC, ADIFF, ANEU, GFR, CMP, PRO, LAC #### [address] [address] Creatinine [Mass/Vol] 1.17 mg/dL Normal 0.70-1.30 [facility] ([place]) Comment on above: Performed By: #### C BC, ADIFF, ANEU, GFR, CMP, PRO, LAC #### [address] [address] [address] ANGIOGRAPHY CHEST W/CONTR Angel 02-26-2021 CT [...] 02/26/2021 7:19:29 PM Ordering Provider: [facility] ([place]) CT HEAD OR BRAIN W/O CONTRAS Ton [...] 02/26/2021 7:11:51 PM Ordering Provider: [facility]) CT SPINE CERVICAL W/O CONTRA STon 02-26-2021 [...] 02/26/2021 7:13:03 PM Ordering Provider: [facility]) LABORATORYOrdered By: Caitlin Crowley on 02-26-2021 Lactate [Moles/Vol] 3.5 mmol/L Invalid Interpretation Code 0.4 - 2.0 mmol/L AO ADM SS LABORATORYOrdered By: Jaylene Gaffney on 02-26-2021 Albumin BCP dye [Mass/Vol] [...] Lactic Acid Lvl 3.5 mmol/L High 0.4-2.0 Count Includes [facility] ([place]) Comment on above: Order Comment: Order ed secondary to Lactic Acid result greater than or equal to 2.0 Performed By: #### C BC, ADIFF, ANEU, GFR, CMP, PRO, LAC #### [address] [place], [place] [address] Lactic Acid Lvl 5.1 mmol/L High 0.4-2.0 Count Includes [facility] ([place]) Comment on above: Performed By: #### C BC, ADIFF, ANEU, GFR, CMP, PRO, LAC #### [address] [place], [place] [address] No Panel Informationon 02-26 Microscopic examination of blood, culture Culture has been received in lab and is no growth to date. Routine cultures are held for 5 days. [facility] Work Phone: PBNPon 02-26-2021 Natriuretic peptide B (Bld) [Mass/Vol] 553 pg/mL High 0-125 Count Includes [facility] ([place]) Comment on above: Result Comment: NT-p roBNP results of less than 300 pg/mL effectively rules out acute congestive heart failure with 99% negative predictive value. Performed By: #### T RICARDO PBNP #### [address] [address] PROon 02-26-2021 INR Coag (PPP) [Relative time] 1.0 {INR} Normal 0.9-1.2 Count Includes [facility] ([place]) Comment on above: Result Comment: Miguel mccracken [...] ADIFF, ANEU, GFR, CMP, PRO, LAC #### [address] [address] PT Coag (PPP) [Time] 12.0 s Normal 9.7-14.3 [facility] ([place]) Comment on above: Performed By: #### C BC, ADIFF, ANEU, GFR, CMP, PRO, LAC #### [address] [address] TROPHSon 02-26-2021 Troponin I High Sensitivity 22.0 ng/L Normal 0.0-76.2 Count Includes [facility] ([place]) Comment on above: Performed By: #### T ARLENE GOLDEN #### [address] [address] UAon 02-26-2021 Color (U) Yellow Normal Count Includes [facility] ([place]) Comment on above: Performed By: #### U A, UAMICAO #### [address] [address] Glucose (U) [Mass/Vol] 100 mg/dL Abnormal Negative [facility] ([place]) Comment on above: Performed By: #### U A, UAM[place]O #### [address] [address] Ketones Ql (U) Negative Normal Negative Count Includes [facility] ([place]) Comment on above: Performed By: #### U A, U[place]O #### [address] [address] UA Appear Clear Normal Clear Count Includes [facility] ([place]) Comment on above: Performed By: #### U A, U[place]O #### [address] [address] UA Blood Trace Abnormal Negative Count Includes [facility] ([place]) Comment on above: Performed By: #### U A, UAM[place]O #### [place] [address] UA Leuk Est Negative Normal Negative Count Includes [facility] ([place]) Comment on above: Performed By: #### U A, U[place]O #### [place] [address] UA Nitrite Negative Normal Negative Count Includes [facility] ([place]) Comment on above: Performed By: #### U A, U[place]O #### [place] [address] UA pH 5.5 Normal 5.0 - 8.0 Count Includes [facility] ([place]) Comment on above: Performed By: #### U A, [place]O #### [place] [address] UA Protein 30 mg/dL Normal Negative Count Includes [facility] ([place]) Comment on above: Performed By: #### U A, UAM[place]O #### [address] [address] UA Spec Grav 1.025 Normal 1.015-1.02 5 Count Includes [facility] ([place]) Comment on above: Performed By: #### U A, UAMICAO #### [address] [address] UA Specimen Type Clean Catch Normal Count Includes [facility] ([place]) Comment on above: Performed By: #### U A, U[place]O #### [place] [address] UA Urobilinogen 0.2 E.U./dL Normal 0.2-1.0 Count Includes [facility] ([place]) Comment on above: Performed By: #### U A, [place] #### [address] [address] Urobilinogen (U) [Mass/Vol] Negative Normal Negative Count Includes [facility] ([place]) Comment on above: Performed By: #### U DAVID Dubois #### [address] [address] CBC W Auto Differential pane l (Bld)on 02-18-2021 Basophils (Bld) [#/Vol] 10*3/uL Normal <0.[address] [facility] Comment on above: Order Comment: Speci men Type: BLOOD SPECIMEN Performed By: #### 2 4320-, [facility], 1987-08 #### [facility] CLIA [id number] [address] Basophils/100 WBC (Bld) 0.2 % Normal [facility] Comment on above: Order Comment: Speci men Type: BLOOD SPECIMEN Performed By: #### 2 4320-05, [facility], 1987-08 #### [facility] CLIA [id number] [address] Differential cell count method Nom (Bld) Auto Normal [facility] Comment on above: Order Comment: Speci men Type: BLOOD SPECIMEN Performed By: #### 2 4320-05, [facility], 1987-08 #### [facility] CLIA [id number] [address] [facility] Eosinophils (Bld) [#/Vol] 10*3/uL Normal <0.46 [facility] Comment on above: Order Comment: Speci men Type: BLOOD SPECIMEN Performed By: #### 2 4320-05, [facility], 1987-08 #### [facility] CLIA [id number] [address] Eosinophils/100 WBC (Bld) 0.0 % Normal [facility] Comment on above: Order Comment: Speci men Type: BLOOD SPECIMEN Performed By: #### 2 4320-05, [facility], 1987-08 #### [facility] CLIA [id number] [address] [place] Erythrocyte distribution width (RBC) [Ratio] 11.9 % Normal 11.5-15.0 [facility] Comment on above: Order Comment: Speci men Type: BLOOD SPECIMEN Performed By: #### 2 4320-05, [facility], 1987-08 #### [facility] CLIA [id number] [address] Hematocrit (Bld) [Volume fraction] 47.5 % Normal 39.0-51.0 [facility] Comment on above: Order Comment: Speci men Type: BLOOD SPECIMEN Performed By: #### 2 4320-05, [facility], 1987-08 #### [facility] CLIA [id number] [address] Hemoglobin (Bld) [Mass/Vol] 16.4 g/dL Normal 13.0-17.0 [facility] Comment on above: Order Comment: Speci men Type: BLOOD SPECIMEN Performed By: #### 2 4320-05, [facility], 1987-08 #### [facility] CLIA [id number] [address] IMMATURE GRAN % 0.2 % Normal [facility] Comment on above: Order Comment: Speci men Type: BLOOD SPECIMEN Performed By: #### 2 4320-05, [facility], 1987-08 #### [employer] [facility] CLIA [id number] [address] IMMATURE GRAN ABS <0.03 Normal <0.10 [facility] Comment on above: Order Comment: Speci men Type: BLOOD SPECIMEN Performed By: #### 2 4320-05, [facility], 1987-08 #### [employer] [facility] CLIA [id number] [address] Lymphocytes (Bld) [#/Vol] 0.98 10*3/uL Low 1.00-4.00 [facility] Comment on above: Order Comment: Speci men Type: BLOOD SPECIMEN Performed By: #### 2 4320-05, [facility], 1987-08 #### [facility] CLIA [id number] [address] Lymphocytes/100 WBC (Bld) 20.5 % Normal [facility] Comment on above: Order Comment: Speci men Type: BLOOD SPECIMEN Performed By: #### 2 4320-05, [facility], 1987-08 #### [facility] CLIA [id number] [address] MCH (RBC) [Entitic mass] 29.7 pg Normal 26.0-34.0 [facility] Comment on above: Order Comment: Speci men Type: BLOOD SPECIMEN Performed By: #### 2 4320-05, [facility], 1987-08 #### [facility] CLIA [id number] [address] MCHC (RBC) [Mass/Vol] 34.5 g/dL Normal 30.5-36.0 [facility] Comment on above: Order Comment: Speci men Type: BLOOD SPECIMEN Performed By: #### 2 4320-05, [facility], 1987-08 #### [facility] CLIA [id number] [address] MCV (RBC) [Entitic vol] 85.9 fL Normal 80.0-100.0 [facility] Comment on above: Order Comment: Speci men Type: BLOOD SPECIMEN Performed By: #### 2 4320-05, [facility], 1987-08 #### [facility] CLIA [id number] [address] Monocytes (Bld) [#/Vol] 0.34 10*3/uL Normal <0.87 [facility] Comment on above: Order Comment: Speci men Type: BLOOD SPECIMEN Performed By: #### 2 4320-05, [facility], 1987-08 #### [facility] CLIA [id number] [address] Monocytes/100 WBC (Bld) 7.1 % Normal A [facility] Comment on above: Order Comment: Speci men Type: BLOOD SPECIMEN Performed By: #### 2 4320-05, [facility], 1987-08 #### [facility] CLIA [id number] [address] Neutrophils (Bld) [#/Vol] 3.43 10*3/uL Normal 1.45-7.50 [facility] Comment on above: Order Comment: Speci men Type: BLOOD SPECIMEN Performed By: #### 2 4320-2, [facility], 1987-08 #### [facility] CLIA [id number] [address] Neutrophils/100 WBC (Bld) 72.0 % Normal [facility] Comment on above: Order Comment: Speci men Type: BLOOD SPECIMEN Performed By: #### 2 4320-05, [facility], 1987-08 #### [facility] CLIA [id number] [address] Nucleated RBC (Bld) [#/Vol] 10*3/uL Normal <0.01 [facility] Comment on above: Order Comment: Speci men Type: BLOOD SPECIMEN Performed By: #### 2 4320-05, [facility], 1987-08 #### [facility] CLIA [id number] [address] Nucleated RBC/100 WBC (Bld) [Ratio] 0.0 /100 WBC Normal 0.0 [facility] Comment on above: Order Comment: Speci men Type: BLOOD SPECIMEN Performed By: #### 2 2, [facility], 1987-08 #### [facility] CLIA [id number] [address] Platelet mean volume (Bld) [Entitic vol] 8.9 fL Low 9.0-12.7 [facility] Comment on above: Order Comment: Speci men Type: BLOOD SPECIMEN Performed By: #### 2 4320-2, [facility], 1987-08 #### [facility] CLIA [id number] [address] [place] Platelets (Bld) [#/Vol] 139 10*3/uL Low 150-400 [facility] Comment on above: Order Comment: Speci men Type: BLOOD SPECIMEN Performed By: #### 2 432-2, [facility], 1987-08 #### [facility] CLIA [id number] [address] RBC (Bld) [#/Vol] 5.53 10*6/uL Normal 4.20-6.00 [facility] Comment on above: Order Comment: Speci men Type: BLOOD SPECIMEN Performed By: #### 2 4320-2, [facility], 1987-08 #### [facility] CLIA [id number] [address] WBC (Bld) [#/Vol] 4.77 10*3/uL Normal 3.70-11.00 [facility] Comment on above: Order Comment: Speci men Type: BLOOD SPECIMEN Performed By: #### 2 4320-05, [facility], 1987-08 #### [facility] CLIA [id number] [address] CNDSon 02-18-2021 CN HNO ID: [id number] Author: Renny Tenorio DO Service: Hospital Medicine [...] THIS TIME: No pending results Discharge Disposition Fdc Facility Activity When You Leave the Hospital Activity Resume pre-hospital activity Diet Instructions Diet Resume pre-hospital diet Follow Up Appointments Follow-Up Appointment When: In 1 week Danie Sawyer MD [place] [address] PCP Requested Referral Additional Provider to Provider Information: Treatment Team: Attending Provider: Renny Tenorio DO Primary Service: Farshad Brown FOLLOW-UP APPOINTMENTS ALREADY SCHEDULED WITH A [facility] PROVIDER: No future appointments. ALLERGIES No [...] (Axillary) Resp 20 Ht 188 cm (6' 2) Wt 112.5 kg (248 lb) SpO2 96% [...] TIME O (more content not included)... Normal [facility] Comprehensive metabolic 2000 panelon 02-18-2021 Albumin [Mass/Vol] 4.1 g/dL Normal 3.9-4.9 [facility] Comment on above: Order Comment: Speci men Type: BLOOD SPECIMEN Performed By: #### 2 4321-2, [facility], 1987- #### [facility] CLIA [id number] 1 [place] [address] [place] ALP [Catalytic activity/Vol] 95 U/L Normal 38-113 [facility] Comment on above: Order Comment: Speci men Type: BLOOD SPECIMEN Performed By: #### 2 4320-2, [facility], 1987-08 #### [facility] CLIA [id number] [address] ALT With P-5'-P [Catalytic activity/Vol] 76 U/L High 10-54 [facility] Comment on above: Order Comment: Speci men Type: BLOOD SPECIMEN Performed By: #### 2 4320-2, [facility], 1987-08 #### [facility] CLIA [id number] [address] Anion gap [Moles/Vol] 14 mmol/L Normal 9-18 [facility] Comment on above: Order Comment: Speci men Type: BLOOD SPECIMEN Performed By: #### 2 2, [facility], 1987-08 #### [facility] CLIA [id number] [address] AST With P-5'-P [Catalytic activity/Vol] 72 U/L High 14-40 [facility] Comment on above: Order Comment: Speci men Type: BLOOD SPECIMEN Performed By: #### 2 4320-05, [facility], 1987-08 #### [facility] CLIA [id number] [address] Bilirubin [Mass/Vol] 1.2 mg/dL Normal 0.2-1.3 [facility] Comment on above: Order Comment: Speci men Type: BLOOD SPECIMEN Performed By: #### 2 4320-05, [facility], 1987-08 #### [facility] CLIA [id number] [address] Calcium [Mass/Vol] 8.8 mg/dL Normal 8.5-10.2 [facility] Comment on above: Order Comment: Speci men Type: BLOOD SPECIMEN Performed By: #### 2 4320-2, [facility], 1987-08 #### [facility] CLIA [id number] [address] [place] Chloride [Moles/Vol] 94 mmol/L Low 97-105 [facility] Comment on above: Order Comment: Speci men Type: BLOOD SPECIMEN Performed By: #### 2 4321-2, [facility], 1987-08 #### [facility] CLIA [id number] [address] [place] CO2 [Moles/Vol] 22 mmol/L Normal 22-30 [facility] Comment on above: Order Comment: Speci men Type: BLOOD SPECIMEN Performed By: #### 2 4320-2, [facility], 1987-08 #### [facility] CLIA [id number] [address] [place] Creatinine [Mass/Vol] 0.90 mg/dL Normal 0.73-1.22 [facility] Comment on above: Order Comment: Speci men Type: BLOOD SPECIMEN Performed By: #### 2 4320-2, [facility], 1987-08 #### [facility] CLIA [id number] [address] STATES [facility] GFR/1.73 sq M.predicted MDRD (S/P/Bld) [Vol rate/Area] mL/min/{1.73_m2} Normal [facility] Comment on above: Order Comment: [...] actual GFR. Performed By: #### 2 4320-2, [facility], 1987-08 #### [facility] CLIA [id number] [address] [place] Glucose [Mass/Vol] 104 mg/dL High 74-99 [facility] Comment on above: Order Comment: Speci men Type: BLOOD SPECIMEN Result Comment: The [place] [employer] (ADA) provides guidance for cutoff [...] Standards of Medical Care in Diabetes 2016, [place] [employer]. Diabetes Care. 2016.39(Suppl 1). Performed By: #### 2 4320-, [facility], 1987-08 #### [facility] CLIA [id number] [address] [place] Potassium [Moles/Vol] 4.0 mmol/L Normal 3.7-5.1 [facility] Comment on above: Order Comment: Speci men Type: BLOOD SPECIMEN Performed By: #### 2 4320-, [facility], 1987-08 #### [facility] CLIA [id number] [address] [place] Protein [Mass/Vol] 6.9 g/dL Normal 6.3-8.0 [facility] Comment on above: Order Comment: Speci men Type: BLOOD SPECIMEN Performed By: #### 2 4320-05, [facility], 1987-08 #### [facility] CLIA [id number] [address] [place] Sodium [Moles/Vol] 130 mmol/L Low 136-144 [facility] Comment on above: Order Comment: Speci men Type: BLOOD SPECIMEN Performed By: #### 2 4320-, [facility], 1987-08 #### [facility] CLIA [id number] [address] [place] Urea nitrogen [Mass/Vol] 11 mg/dL Normal 9-24 [facility] Comment on above: Order Comment: Speci men Type: BLOOD SPECIMEN Performed By: #### 2 4320-[facility] #### [facility] CLIA [id number] [address] CBC W Auto Differential pane l (Bld)on 02-17-2021 Basophils (Bld) [#/Vol] 10*3/uL Normal <0.[address] [facility] Comment on above: Order Comment: Speci men Type: BLOOD SPECIMEN Performed By: #### 5 7021-8 #### [facility] CLIA [id number] [address] Basophils/100 WBC (Bld) 0.0 % Normal A [facility] Comment on above: Order Comment: Speci men Type: BLOOD SPECIMEN Performed By: #### 5 7021-8 #### [facility] CLIA [id number] [address] Differential cell count method Nom (Bld) Auto Normal [facility] Comment on above: Order Comment: Speci men Type: BLOOD SPECIMEN Performed By: #### 5 7021-8 #### [facility] CLIA [id number] [address] Eosinophils (Bld) [#/Vol] 10*3/uL Normal <0.46 [facility] Comment on above: Order Comment: Speci men Type: BLOOD SPECIMEN Performed By: #### 5 7021-8 #### [facility] CLIA [id number] [address] Eosinophils/100 WBC (Bld) 0.0 % Normal [facility] Comment on above: Order Comment: Speci men Type: BLOOD SPECIMEN Performed By: #### 5 7021-8 #### [facility] CLIA [id number] [address] Erythrocyte distribution width (RBC) [Ratio] 11.8 % Normal 11.5-15.0 [facility] Comment on above: Order Comment: Speci men Type: BLOOD SPECIMEN Performed By: #### 5 7021-8 #### [facility] CLIA [id number] [address] Hematocrit (Bld) [Volume fraction] 42.7 % Normal 39.0-51.0 [facility] Comment on above: Order Comment: Speci men Type: BLOOD SPECIMEN Performed By: #### 5 7021-8 #### [facility] CLIA [id number] [address] Hemoglobin (Bld) [Mass/Vol] 15.0 g/dL Normal 13.0-17.0 [facility] Comment on above: Order Comment: Speci men Type: BLOOD SPECIMEN Performed By: #### 5 7021-8 #### [facility] CLIA [id number] [address] IMMATURE GRAN % 0.3 % Normal [facility] Comment on above: Order Comment: Speci men Type: BLOOD SPECIMEN Performed By: #### 5 7021-8 #### [facility] CLIA [id number] [address] IMMATURE GRAN ABS <0.03 Normal <0.10 [facility] Comment on above: Order Comment: Speci men Type: BLOOD SPECIMEN Performed By: #### 5 7021-8 #### [facility] CLIA [id number] [address] Lymphocytes (Bld) [#/Vol] 0.59 10*3/uL Low 1.00-4.00 [facility] Comment on above: Order Comment: Speci men Type: BLOOD SPECIMEN Performed By: #### 5 7021-8 #### [facility] CLIA [id number] [address] Lymphocytes/100 WBC (Bld) 20.3 % Normal [facility] Comment on above: Order Comment: Speci men Type: BLOOD SPECIMEN Performed By: #### 5 7021-8 #### [facility] CLIA [id number] [address] MCH (RBC) [Entitic mass] 30.1 pg Normal 26.0-34.0 [facility] Comment on above: Order Comment: Speci men Type: BLOOD SPECIMEN Performed By: #### 5 7021-8 #### [facility] CLIA [id number] [address] MCHC (RBC) [Mass/Vol] 35.1 g/dL Normal 30.5-36.0 [facility] Comment on above: Order Comment: Speci men Type: BLOOD SPECIMEN Performed By: #### 5 7021-8 #### [facility] CLIA [id number] [address] MCV (RBC) [Entitic vol] 85.6 fL Normal 80.0-100.0 [facility] Comment on above: Order Comment: Speci men Type: BLOOD SPECIMEN Performed By: #### 5 7021-8 #### [facility] CLIA [id number] [address] Monocytes (Bld) [#/Vol] 0.29 10*3/uL Normal <0.87 [facility] Comment on above: Order Comment: Speci men Type: BLOOD SPECIMEN Performed By: #### 5 7021-8 #### [facility] CLIA [id number] [address] Monocytes/100 WBC (Bld) 10.0 % Normal [facility] Comment on above: Order Comment: Speci men Type: BLOOD SPECIMEN Performed By: #### 5 7021-8 #### [facility] CLIA [id number] [address] Neutrophils (Bld) [#/Vol] 2.01 10*3/uL Normal 1.45-7.50 [facility] Comment on above: Order Comment: Speci men Type: BLOOD SPECIMEN Performed By: #### 5 7021-8 #### [facility] CLIA [id number] [address] Neutrophils/100 WBC (Bld) 69.4 % Normal [facility] Comment on above: Order Comment: Speci men Type: BLOOD SPECIMEN Performed By: #### 5 7021-8 #### [facility] CLIA [id number] [address] Nucleated RBC (Bld) [#/Vol] 10*3/uL Normal <0.01 [facility] Comment on above: Order Comment: Speci men Type: BLOOD SPECIMEN Performed By: #### 5 7021-8 #### [facility] CLIA [id number] [address] Nucleated RBC/100 WBC (Bld) [Ratio] 0.0 /100 WBC Normal 0.0 [facility] Comment on above: Order Comment: Speci men Type: BLOOD SPECIMEN Performed By: #### 5 7021-8 #### [facility] CLIA [id number] [address] Platelet mean volume (Bld) [Entitic vol] 9.0 fL Normal 9.0-12.7 [facility] Comment on above: Order Comment: Speci men Type: BLOOD SPECIMEN Performed By: #### 5 7021-8 #### [facility] CLIA [id number] [address] OF [facility] Platelets (Bld) [#/Vol] 109 10*3/uL Low 150-400 [facility] Comment on above: Order Comment: Speci men Type: BLOOD SPECIMEN Performed By: #### 5 7021-8 #### [facility] CLIA [id number] [address] [facility] RBC (Bld) [#/Vol] 4.99 10*6/uL Normal 4.20-6.00 [facility] Comment on above: Order Comment: Speci men Type: BLOOD SPECIMEN Performed By: #### 5 7021-8 #### [facility] CLIA [id number] [address] OF [place] WBC (Bld) [#/Vol] 2.90 10*3/uL Low 3.70-11.00 [facility] Comment on above: Order Comment: Speci men Type: BLOOD SPECIMEN Performed By: #### 5 7021-8 #### [facility] CLIA [id number] [address] CRP SerPl-mCncon 02-17-2021 CRP [Mass/Vol] mg/L Normal <0.9 [facility] Comment on above: Order Comment: Speci men Type: BLOOD SPECIMEN Performed By: #### 2 4320-2, [facility], 1987-08 #### [facility] CLIA [id number] [address] Comprehensive metabolic 2000 panelon 02-17-2021 Albumin [Mass/Vol] 3.7 g/dL Low 3.9-4.9 [facility] Comment on above: Order Comment: Speci men Type: BLOOD SPECIMEN Performed By: #### 2 4320-2, [facility], 1987-08 #### [facility] CLIA [id number] [address] ALP [Catalytic activity/Vol] 85 U/L Normal 38-113 [facility] Comment on above: Order Comment: Speci men Type: BLOOD SPECIMEN Performed By: #### 2 4320-2, [facility], 1987-08 #### [facility] CLIA [id number] [address] ALT With P-5'-P [Catalytic activity/Vol] 51 U/L Normal 10-54 [facility] Comment on above: Order Comment: Speci men Type: BLOOD SPECIMEN Performed By: #### 2 4320-2, [facility], 1987-08 #### [facility] CLIA [id number] [address] Anion gap [Moles/Vol] 13 mmol/L Normal 9-18 [facility] Comment on above: Order Comment: Speci men Type: BLOOD SPECIMEN Performed By: #### 2 4320-2, [facility], 1987-08 #### [facility] CLIA [id number] [address] AST With P-5'-P [Catalytic activity/Vol] 48 U/L High 14-40 [facility] Comment on above: Order Comment: Speci men Type: BLOOD SPECIMEN Performed By: #### 2 4320-2, [facility], 1987-08 #### [facility] CLIA [id number] [address] [facility] Bilirubin [Mass/Vol] 1.2 mg/dL Normal 0.2-1.3 [facility] Comment on above: Order Comment: Speci men Type: BLOOD SPECIMEN Performed By: #### 2 4320-2, [facility], 1987-08 #### [facility] CLIA [id number] [address] STATES [facility] Calcium [Mass/Vol] 8.1 mg/dL Low 8.5-10.2 [facility] Comment on above: Order Comment: Speci men Type: BLOOD SPECIMEN Performed By: #### 2 4320-05, [facility], 1987-08 #### [facility] CLIA [id number] [address] STATES [place] Chloride [Moles/Vol] 98 mmol/L Normal 97-105 [facility] Comment on above: Order Comment: Speci men Type: BLOOD SPECIMEN Performed By: #### 2 4320-05, [facility], 1987-08 #### [facility] CLIA [id number] [address] [place] CO2 [Moles/Vol] 21 mmol/L Low 22-30 [facility] Comment on above: Order Comment: Speci men Type: BLOOD SPECIMEN Performed By: #### 2 2, [facility], 1987-08 #### [facility] CLIA [id number] [address] [place] Creatinine [Mass/Vol] 0.87 mg/dL Normal 0.73-1.22 [facility] Comment on above: Order Comment: Speci men Type: BLOOD SPECIMEN Performed By: #### 2 4320-, [facility], 1987-08 #### [facility] CLIA [id number] 1 [place] [id number] [place] GFR/1.73 sq M.predicted MDRD (S/P/Bld) [Vol rate/Area] mL/min/{1.73_m2} Normal [facility] Comment on above: Order Comment: [...] actual GFR. Performed By: #### 2 4321-2, [facility], 1987-08 #### [facility] CLIA [id number] 1 [place] [address] [place] Glucose [Mass/Vol] 119 mg/dL High 74-99 [facility] Comment on above: Order Comment: Speci men Type: BLOOD SPECIMEN Result Comment: The [place] Diabetes Association (ADA) provides guidance for cutoff [...] Standards of Medical Care in Diabetes 2016, [place] [employer]. Diabetes Care. 2016.39(Suppl 1). Performed By: #### 2 4321-2, [facility], 1987-08 #### [facility] CLIA [id number] 1 [place] [id number] [place] Potassium [Moles/Vol] 4.0 mmol/L Normal 3.7-5.1 [facility] Comment on above: Order Comment: Speci men Type: BLOOD SPECIMEN Performed By: #### 2 4320-2, [facility], 1987-08 #### [facility] CLIA [id number] [address] Protein [Mass/Vol] 6.2 g/dL Low 6.3-8.0 [facility] Comment on above: Order Comment: Speci men Type: BLOOD SPECIMEN Performed By: #### 2 4320-2, [facility], 1987-08 #### [facility] CLIA [id number] [address] Sodium [Moles/Vol] 132 mmol/L Low 136-144 [facility] Comment on above: Order Comment: Speci men Type: BLOOD SPECIMEN Performed By: #### 2 2, [facility], 1987-08 #### [facility] CLIA [id number] [address] Urea nitrogen [Mass/Vol] 13 mg/dL Normal 9-24 [facility] Comment on above: Order Comment: Speci men Type: BLOOD SPECIMEN Performed By: #### 2 4320-2, [facility], 1987-08 #### [facility] CLIA [id number] [address] FERRITIN BLDon 02-17-2021 Ferritin [Mass/Vol] 316.9 ng/mL Normal 30.3-565.7 [facility] Comment on above: Order Comment: Speci men Type: BLOOD SPECIMEN Performed By: #### 2 4320-2, [facility], 1987-08 #### [facility] CLIA [id number] [address] NURSING PROGon 02-17-2021 NURSING PROG HNO ID: [id number] Author: Jalen Cunningham RN Service: ? Author Type: Registered Nurse Type: Nursing Progress Note Filed: 02/17/2021 9:28 AM Note Text: O2 sat on room air at rest 96% O2 sat on room air w/exertion 99% (patient unable to walk, weakness. Stood for about 2 minutes) Normal [facility] ALLIED HEALTHon 02-16-2021 ALLIED HEALTH HNO ID: [id number] Author: Dana Miller Service: Infection Prevention Author [...] TIME: 8:22 AM PAGER/CONTACT #: Infection Prevention, [id number] Infection Prevention after hours/weekend pager: [phone] Normal [facility] CBC W Auto Differential pane l (Bld)on 02-16-2021 Basophils (Bld) [#/Vol] 10*3/uL Normal <0.11 [facility] Comment on above: Order Comment: Speci men Type: BLOOD SPECIMEN Performed By: #### 2 4320-05, [facility], 1987-08 #### [facility] CLIA [id number] [address] STATES OF [facility] Basophils/100 WBC (Bld) 0.0 % Normal [facility] Comment on above: Order Comment: Speci men Type: BLOOD SPECIMEN Performed By: #### 2 4320-05, [facility], 1987-08 #### [facility] CLIA [id number] [address] [place] Differential cell count method Nom (Bld) Auto Normal [facility] Comment on above: Order Comment: Speci men Type: BLOOD SPECIMEN Performed By: #### 2 4320-05, [facility], 1987-08 #### [facility] CLIA [id number] [address] Eosinophils (Bld) [#/Vol] 10*3/uL Normal <0.46 [facility] Comment on above: Order Comment: Speci men Type: BLOOD SPECIMEN Performed By: #### 2 4320-05, [facility], 1987-08 #### [facility] [employer] [facility] CLIA [id number] [address] Eosinophils/100 WBC (Bld) 0.0 % Normal [facility] Comment on above: Order Comment: Speci men Type: BLOOD SPECIMEN Performed By: #### 2 4320-05, [facility], 1987-08 #### [facility] CLIA [id number] [address] Erythrocyte distribution width (RBC) [Ratio] 11.7 % Normal 11.5-15.0 [facility] Comment on above: Order Comment: Speci men Type: BLOOD SPECIMEN Performed By: #### 2 4320-05, [facility], 1987-08 #### [facility] CLIA [id number] [address] Hematocrit (Bld) [Volume fraction] 42.1 % Normal 39.0-51.0 [facility] Comment on above: Order Comment: Speci men Type: BLOOD SPECIMEN Performed By: #### 2 4320-05, [facility], 1987-08 #### [employer] [facility] CLIA [id number] [address] Hemoglobin (Bld) [Mass/Vol] 14.6 g/dL Normal 13.0-17.0 [facility] Comment on above: Order Comment: Speci men Type: BLOOD SPECIMEN Performed By: #### 2 4320-05, [facility], 1987-08 #### [facility] CLIA [id number] [address] IMMATURE GRAN % 0.4 % Normal [facility] Comment on above: Order Comment: Speci men Type: BLOOD SPECIMEN Performed By: #### 2 4320-05, [facility], 1987-08 #### [facility] CLIA [id number] [address] IMMATURE GRAN ABS <0.03 Normal <0.10 [facility] Comment on above: Order Comment: Speci men Type: BLOOD SPECIMEN Performed By: #### 2 4320-05, [facility], 1987-08 #### [facility] CLIA [id number] [address] Lymphocytes (Bld) [#/Vol] 0.53 10*3/uL Low 1.00-4.00 [facility] Comment on above: Order Comment: Speci men Type: BLOOD SPECIMEN Performed By: #### 2 4320-05, [facility], 1987-08 #### [facility] CLIA [id number] [address] Lymphocytes/100 WBC (Bld) 19.3 % Normal [facility] Comment on above: Order Comment: Speci men Type: BLOOD SPECIMEN Performed By: #### 2 4320-05, [facility], 1987-08 #### [facility] CLIA [id number] [address] MCH (RBC) [Entitic mass] 30.0 pg Normal 26.0-34.0 [facility] Comment on above: Order Comment: Speci men Type: BLOOD SPECIMEN Performed By: #### 2 4320-05, [facility], 1987-08 #### [facility] CLIA [id number] [address] MCHC (RBC) [Mass/Vol] 34.7 g/dL Normal 30.5-36.0 [facility] Comment on above: Order Comment: Speci men Type: BLOOD SPECIMEN Performed By: #### 2 4320-05, [facility], 1987-08 #### [facility] CLIA [id number] [address] MCV (RBC) [Entitic vol] 86.4 fL Normal 80.0-100.[address] [facility] Comment on above: Order Comment: Speci men Type: BLOOD SPECIMEN Performed By: #### 2 4320-2, [facility], 1987-08 #### [facility] CLIA [id number] [address] Monocytes (Bld) [#/Vol] 0.36 10*3/uL Normal <0.87 [facility] Comment on above: Order Comment: Speci men Type: BLOOD SPECIMEN Performed By: #### 2 4320-05, [facility], 1987-08 #### [facility] CLIA [id number] [address] Monocytes/100 WBC (Bld) 13.1 % Normal A [facility] Comment on above: Order Comment: Speci men Type: BLOOD SPECIMEN Performed By: #### 2 4320-05, [facility], 1987-08 #### [facility] CLIA [id number] [address] Neutrophils (Bld) [#/Vol] 1.84 10*3/uL Normal 1.45-7.50 [facility] Comment on above: Order Comment: Speci men Type: BLOOD SPECIMEN Performed By: #### 2 4320-05, [facility], 1987-08 #### [facility] CLIA [id number] [address] Neutrophils/100 WBC (Bld) 67.2 % Normal [facility] Comment on above: Order Comment: Speci men Type: BLOOD SPECIMEN Performed By: #### 2 4320-05, [facility], 1987-08 #### [facility] CLIA [id number] [address] Nucleated RBC (Bld) [#/Vol] 10*3/uL Normal <0.01 [facility] Comment on above: Order Comment: Speci men Type: BLOOD SPECIMEN Performed By: #### 2 4320-2, [facility], 1987-08 #### [facility] CLIA [id number] [address] Nucleated RBC/100 WBC (Bld) [Ratio] 0.0 /100 WBC Normal 0.0 [facility] Comment on above: Order Comment: Speci men Type: BLOOD SPECIMEN Performed By: #### 2 2, [facility], 1987-08 #### [facility] CLIA [id number] [address] Platelet mean volume (Bld) [Entitic vol] 9.0 fL Normal 9.0-12.7 [facility] Comment on above: Order Comment: Speci men Type: BLOOD SPECIMEN Performed By: #### 2 4320-05, [facility], 1987-08 #### [facility] CLIA [id number] [address] Platelets (Bld) [#/Vol] 101 10*3/uL Low 150-400 [facility] Comment on above: Order Comment: Speci men Type: BLOOD SPECIMEN Performed By: #### 2 4320-05, [facility], 1987-08 #### [facility] CLIA [id number] [address] RBC (Bld) [#/Vol] 4.87 10*6/uL Normal 4.20-6.00 [facility] Comment on above: Order Comment: Speci men Type: BLOOD SPECIMEN Performed By: #### 2 4320-05, [facility], 1987-08 #### [facility] CLIA [id number] [address] WBC (Bld) [#/Vol] 2.74 10*3/uL Low 3.70-11.00 [facility] Comment on above: Order Comment: Speci men Type: BLOOD SPECIMEN Performed By: #### 2 4320-2, [facility], 1987-08 #### [facility] CLIA [id number] [address] Comprehensive metabolic 2000 panelon 11-17-2021 Albumin [Mass/Vol] 3.8 g/dL Low 3.9-4.9 [facility] Comment on above: Order Comment: Speci men Type: BLOOD SPECIMEN Performed By: #### 2 4323-8 #### [facility] CLIA [id number] [address] ALP [Catalytic activity/Vol] 90 U/L Normal 38-113 [facility] Comment on above: Order Comment: Speci men Type: BLOOD SPECIMEN Performed By: #### 2 4323-8 #### [facility] CLIA [id number] [address] ALT With P-5'-P [Catalytic activity/Vol] 57 U/L High 10-54 [facility] Comment on above: Order Comment: Speci men Type: BLOOD SPECIMEN Performed By: #### 2 4323-8 #### [facility] CLIA [id number] [address] Anion gap [Moles/Vol] 12 mmol/L Normal 9-18 [facility] Comment on above: Order Comment: Speci men Type: BLOOD SPECIMEN Performed By: #### 2 4323-8 #### [facility] CLIA [id number] [address] AST With P-5'-P [Catalytic activity/Vol] 60 U/L High 14-40 [facility] Comment on above: Order Comment: Speci men Type: BLOOD SPECIMEN Performed By: #### 2 4323-8 #### [facility] CLIA [id number] [address] Bilirubin [Mass/Vol] 1.4 mg/dL High 0.2-1.3 [facility] Comment on above: Order Comment: Speci men Type: BLOOD SPECIMEN Performed By: #### 2 4323-8 #### [facility] CLIA [id number] [address] Calcium [Mass/Vol] 8.2 mg/dL Low 8.5-10.2 [facility] Comment on above: Order Comment: Speci men Type: BLOOD SPECIMEN Performed By: #### 2 4323-8 #### [facility] CLIA [id number] [address] Chloride [Moles/Vol] 96 mmol/L Low 97-105 [facility] Comment on above: Order Comment: Speci men Type: BLOOD SPECIMEN Performed By: #### 2 4323-8 #### [facility] CLIA [id number] [address] CO2 [Moles/Vol] 24 mmol/L Normal 22-30 [facility] Comment on above: Order Comment: Speci men Type: BLOOD SPECIMEN Performed By: #### 2 4323-8 #### [facility] CLIA [id number] [address] Creatinine [Mass/Vol] 1.00 mg/dL Normal 0.73-1.22 [facility] Comment on above: Order Comment: Speci men Type: BLOOD SPECIMEN Performed By: #### 2 4323-8 #### [facility] CLIA [id number] [address] GFR/1.73 sq M.predicted MDRD (S/P/Bld) [Vol rate/Area] mL/min/{1.73_m2} Normal [facility] Comment on above: Order Comment: [...] GFR. Performed By: #### 2 4323-8 #### [facility] CLIA [id number] [address] [place] Glucose [Mass/Vol] 112 mg/dL High 74-99 [facility] Comment on above: Order Comment: Speci men Type: BLOOD SPECIMEN Result Comment: The [place] Diabetes Association (ADA) provides guidance for cutoff [...] Standards of Medical Care in Diabetes 2016, [place] [employer] Association. Diabetes Care. 2016.39(Suppl 1). Performed By: #### 2 4323-8 #### [facility] CLIA [id number] [address] [place] Potassium [Moles/Vol] 4.0 mmol/L Normal 3.7-5.1 [facility] Comment on above: Order Comment: Speci men Type: BLOOD SPECIMEN Performed By: #### 2 4323-8 #### [facility] CLIA [id number] [address] [place] Protein [Mass/Vol] 6.3 g/dL Normal 6.3-8.0 [facility] Comment on above: Order Comment: Speci men Type: BLOOD SPECIMEN Performed By: #### 2 4323-8 #### [facility] CLIA [id number] 1 [place] [address] [place] Sodium [Moles/Vol] 132 mmol/L Low 136-144 [facility] Comment on above: Order Comment: Speci men Type: BLOOD SPECIMEN Performed By: #### 2 4323-8 #### [facility] CLIA [id number] [address] [place] Urea nitrogen [Mass/Vol] 11 mg/dL Normal 9-24 [facility] Comment on above: Order Comment: Speci men Type: BLOOD SPECIMEN Performed By: #### 2 4323-8 #### [facility] CLIA [id number] [address] HAV IgM Ser Qlon 02-16-2021 HAV IgM Ql (S) Negative Normal Negative [facility] Comment on above: Order Comment: Speci men Type: BLOOD SPECIMEN Performed By: #### 2 4320-2, [facility], 1987-08 #### [facility] CLIA [id number] [address] HBV core IgM Ser Qlon 2020 HBV core IgM Ql (S) Negative Normal Negative [facility] Comment on above: Order Comment: Speci men Type: BLOOD SPECIMEN Performed By: #### 2 4320-2, [facility], 1987-08 #### [facility] CLIA [id number] [address] HBV surface Ab IA Ql (S)on 04-18-2020 HBV surface Ag Ql (S) Negative Normal Negative [facility] Comment on above: Order Comment: Speci men Type: BLOOD SPECIMEN Performed By: #### 2 4320-2, [facility], 1987-08 #### [facility] CLIA [id number] [address] HCV Ab Ser Qlon 02-16-2021 HCV Ab Ql (S) Negative Normal Negative [facility] Comment on above: Order Comment: Speci men Type: BLOOD SPECIMEN Performed By: #### 2 4320-2, [facility], 1987-08 #### [facility] CLIA [id number] [address] NURSING PROGon 02-16-2021 NURSING PROG HNO ID: [id number] Author: Alejandrina Morales RN Service: ? Author Type: Registered Nurse Type: Nursing Progress Note Filed: 02/16/2021 6:38 PM Note Text: Pts O2 sat was 96% on RA.... stood pt up for aprox a minute and O2 sat was 99% ... pt became unstable and sat back down in the bed. Normal [facility] THERAPY NTon 02-16-2021 THERAPY NT HNO ID: [id number] Author: DANA Dyer/Patrick Service: Occupational Therapy Author Type: Occupational Therapist Type: Therapy (PT/OT/Speech/Resp) Filed: 02/16/2021 3:52 PM Note Text: Occupational Therapy Evaluation SERVICE DATE: 02/16/2021 SERVICE TIME: 1525 to 1544 ROOM: [place] [address] Recommended Discharge Disposition: Subacute/SNF Recommended Discharge Disposition [...] transfers wit (more content not included)... Normal [facility] THERAPY NT HNO ID: [id number] Author: Elsa Agee, PT Service: Physical Therapy Author Type: Physical Therapist Type: Therapy (PT/OT/Speech/Resp) Filed: 02/16/2021 3:15 PM Note Text: Physical Therapy Evaluation SERVICE DATE: 02/16/2021 SERVICE TIME: 1426 to 1452 ROOM: [id number] Recommended Discharge Disposition: Subacute/SNF Recommended Discharge Disposition [...] while t (more content not included)... Normal [facility] ALLIED HEALTHon 02-15-2021 ALLIED HEALTH HNO ID: [id number] Author: RT Uzair(R) Service: ? Author Type: 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 Type: Allied Health Filed: 02/14/2021 11:50 PM [...] RT(R) February 14, 2021 11:50 PM Normal [facility] Basic metabolic 2000 panelon 02-15-2021 Anion gap [Moles/Vol] 13 mmol/L Normal 9-18 [facility] Comment on above: Order Comment: Speci men Type: BLOOD SPECIMEN Performed By: #### 2 4320-, [facility], 1987-08 #### [facility] CLIA [id number] [address] [place] Calcium [Mass/Vol] 8.5 mg/dL Normal 8.5-10.2 [facility] Comment on above: Order Comment: Speci men Type: BLOOD SPECIMEN Performed By: #### 2 4320-2, [facility], 1987-08 #### [facility] CLIA [id number] [address] [place] Chloride [Moles/Vol] 93 mmol/L Low 97-105 [facility] Comment on above: Order Comment: Speci men Type: BLOOD SPECIMEN Performed By: #### 2 4320-2, [facility], 1987-08 #### [facility] CLIA [id number] 1 [place] [address] [place] CO2 [Moles/Vol] 23 mmol/L Normal 22-30 [facility] Comment on above: Order Comment: Speci men Type: BLOOD SPECIMEN Performed By: #### 2 4320-2, [facility], 1987-08 #### [facility] CLIA [id number] 1 [place] [address] [place] Creatinine [Mass/Vol] 1.04 mg/dL Normal 0.73-1.22 [facility] Comment on above: Order Comment: Speci men Type: BLOOD SPECIMEN Performed By: #### 2 4321-2, [facility], 1987-08 #### [facility] CLIA [id number] 1 [place] [address] [place] GFR/1.73 sq M.predicted MDRD (S/P/Bld) [Vol rate/Area] mL/min/{1.73_m2} Normal [facility] Comment on above: Order Comment: [...] actual GFR. Performed By: #### 2 4321-2, [facility], 1987-08 #### [facility] CLIA [id number] 1 [place] [address] [place] Glucose [Mass/Vol] 157 mg/dL High 74-99 [facility] Comment on above: Order Comment: Speci men Type: BLOOD SPECIMEN Result Comment: The [place] Diabetes Association (ADA) provides guidance for cutoff [...] Standards of Medical Care in Diabetes 2016, [place] [employer]. Diabetes Care. 2016.39(Suppl 1). Performed By: #### 2 4321-2, [facility], 1987-08 #### [facility] CLIA [id number] [address] Potassium [Moles/Vol] 4.0 mmol/L Normal 3.7-5.1 [facility] Comment on above: Order Comment: Speci men Type: BLOOD SPECIMEN Performed By: #### 2 4320-2, [facility], 1987-08 #### [facility] [facility] CLIA [id number] [address] Sodium [Moles/Vol] 129 mmol/L Low 136-144 [facility] Comment on above: Order Comment: Speci men Type: BLOOD SPECIMEN Performed By: #### 2 2, [facility], 1987-08 #### [facility] CLIA [id number] [address] Urea nitrogen [Mass/Vol] 9 mg/dL Normal 9-24 [facility] Comment on above: Order Comment: Speci men Type: BLOOD SPECIMEN Performed By: #### 2 4320-05, [facility], 1987-08 #### [facility] CLIA [id number] [address] CBC W Auto Differential pane l (Bld)on 02-15-2021 Basophils (Bld) [#/Vol] 10*3/uL Normal <0.11 [facility] Comment on above: Order Comment: Speci men Type: BLOOD SPECIMEN Performed By: #### 2 4320-05, [facility], 1987-08 #### [facility] CLIA [id number] [address] Basophils/100 WBC (Bld) 0.0 % Normal [facility] Comment on above: Order Comment: Speci men Type: BLOOD SPECIMEN Performed By: #### 2 4320-2, [facility], 1987-08 #### [facility] CLIA [id number] [address] Differential cell count method Nom (Bld) Auto Normal [facility] Comment on above: Order Comment: Speci men Type: BLOOD SPECIMEN Performed By: #### 2 4320-05, [facility], 1987-08 #### [facility] CLIA [id number] [address] Eosinophils (Bld) [#/Vol] 10*3/uL Normal <0.46 [facility] Comment on above: Order Comment: Speci men Type: BLOOD SPECIMEN Performed By: #### 2 4320-, [facility], 1987-08 #### [facility] CLIA [id number] [address] Eosinophils/100 WBC (Bld) 0.0 % Normal [facility] Comment on above: Order Comment: Speci men Type: BLOOD SPECIMEN Performed By: #### 2 4320-05, [facility], 1987-08 #### [facility] CLIA [id number] [address] Erythrocyte distribution width (RBC) [Ratio] 11.9 % Normal 11.5-15.0 [facility] Comment on above: Order Comment: Speci men Type: BLOOD SPECIMEN Performed By: #### 2 4320-05, [facility], 1987-08 #### [facility] CLIA [id number] [address] Hematocrit (Bld) [Volume fraction] 43.5 % Normal 39.0-51.0 [facility] Comment on above: Order Comment: Speci men Type: BLOOD SPECIMEN Performed By: #### 2 4320-05, [facility], 1987-08 #### [facility] CLIA [id number] [address] Hemoglobin (Bld) [Mass/Vol] 15.0 g/dL Normal 13.0-17.0 [facility] Comment on above: Order Comment: Speci men Type: BLOOD SPECIMEN Performed By: #### 2 4320-05, [facility], 1987-08 #### [facility] CLIA [id number] [address] IMMATURE GRAN % 0.4 % Normal [facility] Comment on above: Order Comment: Speci men Type: BLOOD SPECIMEN Performed By: #### 2 4320-05, [facility], 1987-08 #### [facility] CLIA [id number] [address] IMMATURE GRAN ABS <0.03 Normal <0.10 [facility] Comment on above: Order Comment: Speci men Type: BLOOD SPECIMEN Performed By: #### 2 4320-05, [facility], 1987-08 #### [facility] CLIA [id number] [address] Lymphocytes (Bld) [#/Vol] 0.32 10*3/uL Low 1.00-4.00 [facility] Comment on above: Order Comment: Speci men Type: BLOOD SPECIMEN Performed By: #### 2 4320-05, [facility], 1987-08 #### [facility] CLIA [id number] [address] Lymphocytes/100 WBC (Bld) 11.2 % Normal [facility] Comment on above: Order Comment: Speci men Type: BLOOD SPECIMEN Performed By: #### 2 4320-05, [facility], 1987-08 #### [facility] CLIA [id number] [address] MCH (RBC) [Entitic mass] 30.1 pg Normal 26.0-34.0 [facility] Comment on above: Order Comment: Speci men Type: BLOOD SPECIMEN Performed By: #### 2 4320-05, [facility], 1987-08 #### [facility] CLIA [id number] [address] MCHC (RBC) [Mass/Vol] 34.5 g/dL Normal 30.5-36.0 [facility] Comment on above: Order Comment: Speci men Type: BLOOD SPECIMEN Performed By: #### 2 4320-05, [facility], 1987-08 #### [facility] CLIA [id number] [address] MCV (RBC) [Entitic vol] 87.3 fL Normal 80.0-100.0 [facility] Comment on above: Order Comment: Speci men Type: BLOOD SPECIMEN Performed By: #### 2 4320-2, [facility], 1987-08 #### [facility] CLIA [id number] [address] Monocytes (Bld) [#/Vol] 0.12 10*3/uL Normal <0.87 [facility] Comment on above: Order Comment: Speci men Type: BLOOD SPECIMEN Performed By: #### 2 4320-2, [facility], 1987-08 #### [facility] CLIA [id number] [address] Monocytes/100 WBC (Bld) 4.2 % Normal [facility] Comment on above: Order Comment: Speci men Type: BLOOD SPECIMEN Performed By: #### 2 4320-05, [facility], 1987-08 #### [facility] CLIA [id number] [address] Neutrophils (Bld) [#/Vol] 2.40 10*3/uL Normal 1.45-7.50 [facility] Comment on above: Order Comment: Speci men Type: BLOOD SPECIMEN Performed By: #### 2 4320-05, [facility], 1987-08 #### [facility] CLIA [id number] [address] Neutrophils/100 WBC (Bld) 84.2 % Normal [facility] Comment on above: Order Comment: Speci men Type: BLOOD SPECIMEN Performed By: #### 2 4320-2, [facility], 1987-08 #### [facility] CLIA [id number] [address] Nucleated RBC (Bld) [#/Vol] 10*3/uL Normal <0.01 [facility] Comment on above: Order Comment: Speci men Type: BLOOD SPECIMEN Performed By: #### 2 4320-, [facility], 1987-08 #### [facility] CLIA [id number] [address] Nucleated RBC/100 WBC (Bld) [Ratio] 0.0 /100 WBC Normal 0.0 [facility] Comment on above: Order Comment: Speci men Type: BLOOD SPECIMEN Performed By: #### 2 4320-05, [facility], 1987-08 #### [facility] CLIA [id number] [address] Platelet mean volume (Bld) [Entitic vol] 9.2 fL Normal 9.0-12.7 [facility] Comment on above: Order Comment: Speci men Type: BLOOD SPECIMEN Performed By: #### 2 4320-05, [facility], 1987-08 #### [facility] CLIA [id number] [address] Platelets (Bld) [#/Vol] 97 10*3/uL Low 150-400 [facility] Comment on above: Order Comment: Speci men Type: BLOOD SPECIMEN Performed By: #### 2 4320-05, [facility], 1987-08 #### [facility] CLIA [id number] [address] RBC (Bld) [#/Vol] 4.98 10*6/uL Normal 4.20-6.00 [facility] Comment on above: Order Comment: Speci men Type: BLOOD SPECIMEN Performed By: #### 2 4320-05, [facility], 1987-08 #### [facility] CLIA [id number] [address] WBC (Bld) [#/Vol] 2.85 10*3/uL Low 3.70-11.00 [facility] Comment on above: Order Comment: Speci men Type: BLOOD SPECIMEN Performed By: #### 2 4320-05, [facility], 1987-08 #### [facility] CLIA [id number] [address] Basophils (Bld) [#/Vol] 10*3/uL Normal <0.11 [facility] Comment on above: Order Comment: Speci men Type: BLOOD SPECIMEN Performed By: #### 2 4320-05, [facility], 1987-08 #### [facility] CLIA [id number] [address] Basophils/100 WBC (Bld) 0.3 % Normal [facility] Comment on above: Order Comment: Speci men Type: BLOOD SPECIMEN Performed By: #### 2 4320-05, [facility], 1987-08 #### [facility] CLIA [id number] [address] Differential cell count method Nom (Bld) Auto Normal [facility] Comment on above: Order Comment: Speci men Type: BLOOD SPECIMEN Performed By: #### 2 4320-05, [facility], 1987-08 #### [facility] CLIA [id number] [address] Eosinophils (Bld) [#/Vol] 10*3/uL Normal <0.46 [facility] Comment on above: Order Comment: Speci men Type: BLOOD SPECIMEN Performed By: #### 2 4320-05, [facility], 1987-08 #### [facility] CLIA [id number] [address] Eosinophils/100 WBC (Bld) 0.0 % Normal [facility] Comment on above: Order Comment: Speci men Type: BLOOD SPECIMEN Performed By: #### 2 4320-05, [facility], 1987-08 #### [facility] CLIA [id number] [address] Erythrocyte distribution width (RBC) [Ratio] 12.1 % Normal 11.5-15.0 [facility] Comment on above: Order Comment: Speci men Type: BLOOD SPECIMEN Performed By: #### 2 4320-05, [facility], 1987-08 #### [facility] CLIA [id number] [address] Hematocrit (Bld) [Volume fraction] 42.0 % Normal 39.0-51.0 [facility] Comment on above: Order Comment: Speci men Type: BLOOD SPECIMEN Performed By: #### 2 4320-05, [facility], 1987-08 #### [facility] CLIA [id number] [address] Hemoglobin (Bld) [Mass/Vol] 14.3 g/dL Normal 13.0-17.0 [facility] Comment on above: Order Comment: Speci men Type: BLOOD SPECIMEN Performed By: #### 2 4320-05, [facility], 1987-08 #### [facility] CLIA [id number] [address] IMMATURE GRAN % 0.7 % Normal [facility] Comment on above: Order Comment: Speci men Type: BLOOD SPECIMEN Performed By: #### 2 4320-05, [facility], 1987-08 #### [facility] CLIA [id number] [address] IMMATURE GRAN ABS <0.03 Normal <0.10 [facility] Comment on above: Order Comment: Speci men Type: BLOOD SPECIMEN Performed By: #### 2 4320-05, [facility], 1987-08 #### [facility] CLIA [id number] [address] Lymphocytes (Bld) [#/Vol] 0.18 10*3/uL Low 1.00-4.00 [facility] Comment on above: Order Comment: Speci men Type: BLOOD SPECIMEN Performed By: #### 2 4320-05, [facility], 1987-08 #### [facility] CLIA [id number] [address] Lymphocytes/100 WBC (Bld) 5.9 % Normal [facility] Comment on above: Order Comment: Speci men Type: BLOOD SPECIMEN Performed By: #### 2 4320-05, [facility], 1987-08 #### [facility] CLIA [id number] [address] MCH (RBC) [Entitic mass] 29.9 pg Normal 26.0-34.0 [facility] Comment on above: Order Comment: Speci men Type: BLOOD SPECIMEN Performed By: #### 2 4320-05, [facility], 1987-08 #### [facility] CLIA [id number] [address] MCHC (RBC) [Mass/Vol] 34.0 g/dL Normal 30.5-36.0 [facility] Comment on above: Order Comment: Speci men Type: BLOOD SPECIMEN Performed By: #### 2 4320-05, [facility], 1987-08 #### [facility] CLIA [id number] [address] MCV (RBC) [Entitic vol] 87.7 fL Normal 80.0-100.0 [facility] Comment on above: Order Comment: Speci men Type: BLOOD SPECIMEN Performed By: #### 2 4320-05, [facility], 1987-08 #### [facility] CLIA [id number] [address] Monocytes (Bld) [#/Vol] 0.25 10*3/uL Normal <0.87 [facility] Comment on above: Order Comment: Speci men Type: BLOOD SPECIMEN Performed By: #### 2 4320-05, [facility], 1987-08 #### [facility] CLIA [id number] [address] Monocytes/100 WBC (Bld) 8.2 % Normal [facility] Comment on above: Order Comment: Speci men Type: BLOOD SPECIMEN Performed By: #### 2 4320-05, [facility], 1987-08 #### [facility] CLIA [id number] [address] Neutrophils (Bld) [#/Vol] 2.59 10*3/uL Normal 1.45-7.50 [facility] Comment on above: Order Comment: Speci men Type: BLOOD SPECIMEN Performed By: #### 2 4320-05, [facility], 1987-08 #### [facility] CLIA [id number] [address] Neutrophils/100 WBC (Bld) 84.9 % Normal [facility] Comment on above: Order Comment: Speci men Type: BLOOD SPECIMEN Performed By: #### 2 4320-, [facility], 1987-08 #### [facility] CLIA [id number] [address] Nucleated RBC (Bld) [#/Vol] 10*3/uL Normal <0.01 [facility] Comment on above: Order Comment: Speci men Type: BLOOD SPECIMEN Performed By: #### 2 4320-2, [facility], 1987-08 #### [facility] CLIA [id number] [address] Nucleated RBC/100 WBC (Bld) [Ratio] 0.0 /100 WBC Normal 0.0 [facility] Comment on above: Order Comment: Speci men Type: BLOOD SPECIMEN Performed By: #### 2 4320-05, [facility], 1987-08 #### [facility] CLIA [id number] [address] Platelet mean volume (Bld) [Entitic vol] 9.3 fL Normal 9.0-12.7 [facility] Comment on above: Order Comment: Speci men Type: BLOOD SPECIMEN Performed By: #### 2 4320-05, [facility], 1987-08 #### [facility] CLIA [id number] [address] Platelets (Bld) [#/Vol] 84 10*3/uL Low 150-[address] [facility] Comment on above: Order Comment: Speci men Type: BLOOD SPECIMEN Result Comment: Plat elet count confirmed by manual review of peripheral blood smear Performed By: #### 2 4320-2, [facility], 1987-08 #### [facility] CLIA [id number] [address] RBC (Bld) [#/Vol] 4.79 10*6/uL Normal 4.20-6.00 [facility] Comment on above: Order Comment: Speci men Type: BLOOD SPECIMEN Performed By: #### 2 4320-, [facility], 1987-08 #### [facility] CLIA [id number] [address] WBC (Bld) [#/Vol] 3.05 10*3/uL Low 3.70-11.00 [facility] Comment on above: Order Comment: Speci men Type: BLOOD SPECIMEN Performed By: #### 2 4320-2, [facility], 1987-08 #### [facility] CLIA [id number] [address] CRP SerPl-mCncon 02-15-2021 CRP [Mass/Vol] 0.5 mg/dL Normal <0.9 [facility] Comment on above: Order Comment: Speci men Type: BLOOD SPECIMEN Performed By: #### 2 4320-2, [facility], 1987-08 #### [facility] CLIA [id number] [address] Comprehensive metabolic 2000 panelon 02-15-2021 Albumin [Mass/Vol] 3.9 g/dL Normal 3.9-4.9 [facility] Comment on above: Order Comment: Speci men Type: BLOOD SPECIMEN Performed By: #### 2 4320-2, [facility], 1987-08 #### [facility] CLIA [id number] [address] ALP [Catalytic activity/Vol] 95 U/L Normal 38-113 [facility] Comment on above: Order Comment: Speci men Type: BLOOD SPECIMEN Performed By: #### 2 4320-2, [facility], 1987-08 #### [facility] CLIA [id number] [address] ALT With P-5'-P [Catalytic activity/Vol] 61 U/L High 10-54 [facility] Comment on above: Order Comment: Speci men Type: BLOOD SPECIMEN Performed By: #### 2 4320-2, [facility], 1987-08 #### [facility] CLIA [id number] [address] Anion gap [Moles/Vol] 13 mmol/L Normal 9-18 [facility] Comment on above: Order Comment: Speci men Type: BLOOD SPECIMEN Performed By: #### 2 4320-2, [facility], 1987-08 #### [facility] CLIA [id number] [address] AST With P-5'-P [Catalytic activity/Vol] 70 U/L High 14-40 [facility] Comment on above: Order Comment: Speci men Type: BLOOD SPECIMEN Performed By: #### 2 4320-2, [facility], 1987-08 #### [facility] CLIA [id number] [address] Bilirubin [Mass/Vol] 2.3 mg/dL High 0.2-1.3 [facility] Comment on above: Order Comment: Speci men Type: BLOOD SPECIMEN Performed By: #### 2 4320-2, [facility], 1987-08 #### [facility] CLIA [id number] [address] [place] [facility] Calcium [Mass/Vol] 8.4 mg/dL Low 8.5-10.2 [facility] Comment on above: Order Comment: Speci men Type: BLOOD SPECIMEN Performed By: #### 2 4320-05, [facility], 1987-08 #### [facility] CLIA [id number] [address] OF [facility] Chloride [Moles/Vol] 97 mmol/L Normal 97-105 [facility] Comment on above: Order Comment: Speci men Type: BLOOD SPECIMEN Performed By: #### 2 4320-2, [facility], 1987-08 #### [facility] CLIA [id number] [address] STATES OF [facility] CO2 [Moles/Vol] 21 mmol/L Low 22-30 [facility] Comment on above: Order Comment: Speci men Type: BLOOD SPECIMEN Performed By: #### 2 4320-2, [facility], 1987-08 #### [facility] CLIA [id number] [address] [place] Creatinine [Mass/Vol] 0.98 mg/dL Normal 0.73-1.22 [facility] Comment on above: Order Comment: Speci men Type: BLOOD SPECIMEN Performed By: #### 2 4321-2, [facility], 1987-08 #### [facility] CLIA [id number] [address] [place] GFR/1.73 sq M.predicted MDRD (S/P/Bld) [Vol rate/Area] mL/min/{1.73_m2} Normal [facility] Comment on above: Order Comment: [...] actual GFR. Performed By: #### 2 4321-2, [facility], 1987-08 #### [facility] [place] CLIA [id number] [address] [place] Glucose [Mass/Vol] 128 mg/dL High 74-99 [facility] Comment on above: Order Comment[facility] B[facility] Result Comment: The [place] [employer] (ADA) provides guidance for cutoff [...] Standards of Medical Care in Diabetes 2016, [place] [employer]. Diabetes Care. 2016.39(Suppl 1). Performed By: #### 2 4320-2, [facility], 1987-08 #### [facility] CLIA [id number] [address] Potassium [Moles/Vol] 3.9 mmol/L Normal 3.7-5.1 [facility] Comment on above: Order Comment: Speci men Type: BLOOD SPECIMEN Performed By: #### 2 4320-2, [facility], 1987-08 #### [facility] CLIA [id number] [address] Protein [Mass/Vol] 6.2 g/dL Low 6.3-8.0 [facility] Comment on above: Order Comment: Speci men Type: BLOOD SPECIMEN Performed By: #### 2 4320-2, [facility], 1987-08 #### [facility] CLIA [id number] [address] Sodium [Moles/Vol] 131 mmol/L Low 136-144 [facility] Comment on above: Order Comment: Speci men Type: BLOOD SPECIMEN Performed By: #### 2 4320-2, [facility], 1987-08 #### [facility] CLIA [id number] [address] Urea nitrogen [Mass/Vol] 9 mg/dL Normal 9-24 [facility] Comment on above: Order Comment: Speci men Type: BLOOD SPECIMEN Performed By: #### 2 4320-2, [facility], 1987-08 #### [facility] CLIA [id number] [address] D dimer FEU PPP-mCncon 02-15 Fibrin D-dimer FEU (PPP) [Mass/Vol] 590 ng/mL FEU High <500 [facility] Comment on above: Order Comment: Speci men Type: BLOOD SPECIMEN Performed By: #### 4 8065-7 #### [facility] CLIA [id number] [address] ED NOTEon 02-15-2021 ED NOTE HNO ID: [id number] Author: Lalitha Santos RN Service: ? Author Type: Registered Nurse Type: ED Notes Filed: 02/15/2021 7:33 AM Note Text: US tech notified that pt is ready for ordered US. [facility] ED NOTE HNO ID: [id number] Author: Lalitha Santos RN Service: ? Author Type: Registered Nurse Type: ED Notes Filed: 02/15/2021 7:07 AM Note Text: Report received from [facility] [place]. Care assumed at this time. Pt remains attached to director script and continuous pulse ox [facility] ED NOTE HNO ID: [id number] Author: Joy Segal RN Service: Emergency Medicine Author Type: Registered Nurse Type: ED Notes Filed: 02/15/2021 6:06 AM Note Text: Complete linen change performed [facility] ED NOTE HNO ID: [id number] Author: Angely Hu RN Service: ? Author Type: Registered Nurse Type: ED Notes Filed: 02/14/2021 10:40 PM Note Text: Bed: 19-ED Expected date: 02/14/21 Expected time: 10:28 PM Means of arrival: [facility] Comments: serene [facility] ED PROV NOTEon 02-15-2021 ED PROV NOTE HNO ID: [id number] Author: Lucas Mcgee DO Service: Emergency Medicine [...] boluses. Plan: [facility] at [facility] time of signout ED Course as of 02/15/21710 Others' Documentation e Feb 15, 2021 0024 [place]%: 8.2 [HT] ED Course User Index [HT] Sarah Dumont MD Clinical Impressions as of 02/15/21710 COVID-19 Nausea Lucas Mcgee DO February 15, 2021 7:11 AM Lucas Mcgee DO Resident 02/15/21 0713 Loretta Daniel MD 02/15/21 0856 Normal [facility] ED PROV NOTE HNO ID: [id number] Author: Danay Gallardo MD Service: Emergency Medicine [...] any pain. He had a fever of 101 or 102 tonight. He admits to a nonproductive cough. He [...] disposition details Danay Gallardo MD 02/15/21 0030 [facility] ED PROV NOTE HNO ID: [id number] Author: Sarah Dumont MD Service: Emergency Medicine [...] days. He states that his throat feels raw. He denies any history of heart or [...] as o (more content not included)... Normal [facility] Fibrin D-dimer FEU (PPP) [Ma ss/Vol]on 02-15-2021 D DIMER AGE-RELATED CUTOFF 710 ng/mL FEU Normal [facility] Comment on above: Order Comment: Speci men Type: BLOOD SPECIMEN Performed By: #### 4 8065-7 #### [facility] CLIA [id number] [address] [place] HEPATIC FUNCTION PNLon 02-15 Albumin [Mass/Vol] 4.0 g/dL Normal 3.9-4.9 [facility] Comment on above: Order Comment: Speci men Type: BLOOD SPECIMEN Performed By: #### 2 4320-2, [facility], 1987-08 #### [facility] CLIA [id number] [address] ALP [Catalytic activity/Vol] 94 U/L Normal 38-113 [facility] Comment on above: Order Comment: Speci men Type: BLOOD SPECIMEN Performed By: #### 2 4320-2, [facility], 1987-08 #### [facility] CLIA [id number] [address] ALT With P-5'-P [Catalytic activity/Vol] 65 U/L High 10-54 [facility] Comment on above: Order Comment: Speci men Type: BLOOD SPECIMEN Performed By: #### 2 4320-2, [facility], 1987-08 #### [facility] CLIA [id number] [address] AST With P-5'-P [Catalytic activity/Vol] 75 U/L High 14-40 [facility] Comment on above: Order Comment: Speci men Type: BLOOD SPECIMEN Performed By: #### 2 4320-05, [facility], 1987-08 #### [facility] CLIA [id number] [address] Bilirubin [Mass/Vol] 1.9 mg/dL High 0.2-1.3 [facility] Comment on above: Order Comment: Speci men Type: BLOOD SPECIMEN Performed By: #### 2 4320-2, [facility], 1987-08 #### [facility] CLIA [id number] [address] Bilirubin.conjugated [Mass/Vol] 0.3 mg/dL High <0.2 [facility] Comment on above: Order Comment: Speci men Type: BLOOD SPECIMEN Performed By: #### 2 4320-2, [facility], 1987-08 #### [facility] CLIA [id number] [address] Protein [Mass/Vol] 6.8 g/dL Normal 6.3-8.0 [facility] Comment on above: Order Comment: Speci men Type: BLOOD SPECIMEN Performed By: #### 2 432-2, [facility], 1987-08 #### [facility] CLIA [id number] [address] HIGH SENSITIVITY TROPONIN To n 02-15-2021 HIGH SENSITIVITY CARLEEN 24 ng/L High <12 [facility] Comment on above: Order Comment: [...] 30 day MACE. Performed By: #### 2 432-2, [facility], 1987-08 #### [facility] CLIA [id number] [address] HIGH SENSITIVITY CARLEEN 25 ng/L High <12 [facility] Comment on above: Order Comment: [...] 30 day MACE. Performed By: #### 2 432-2, [facility], 1987-08 #### [facility] CLIA [id number] [address] HISTORY PHYSICALon HISTORY PHYSICAL HNO ID: [id number] Author: Dana Westfall DO Service: Hospital Medicine Author Type: Physician Type: HANDP Filed: 02/15/2021 2:53 PM Note Text: DEPARTMENT OF HOSPITAL MEDICINE HISTORY AND PHYSICAL EXAM SERVICE DATE: 02/15/2021 SERVICE TIME: 2:25 PM Primary Care Physician: Danie Sawyer MD NIGHT AND WEEKEND COVERAGE: AKSHERRELL COVERAGE: From 7am - 7pm, please call [phone] After 7pm, please call cross cover pager #[phone] Subjective CHIEF COMPLAINT: Nausea and vomiting HPI: [...] chewable tab(s) 81 mg ORAL DAILY Ordered 02/15/21 1421 -- 02/15/21 1430 clopidogrel 75 mg tab(s) (PLAVIX) 75 mg ORAL DAILY Ordered 02/15/21 14 (more content not included)... Normal [facility] Lactate (Bld) [Moles/Vol]on 02-15-2021 Lactate [Moles/Vol] 2.2 mmol/L Normal 0.5-2.2 [facility] Comment on above: Order Comment: Speci men Type: BLOOD SPECIMEN Performed By: #### 3 2693-4 #### [facility] CLIA [id number] [address] STATES OF [facility] PROCALCITONIN (LAB)on 2020 Procalcitonin [Mass/Vol] 0.11 ng/mL High <0.09 [facility] Comment on above: Order Comment: Speci men Type: BLOOD SPECIMEN Result Comment: For a guided interpretation of test results, please visit the Change in Procalcitonin Calculator, [email or web address]. Performed By: #### P ROCAL #### [facility] CLIA [id number] [address] [place] PT panel Coag (PPP)on 2020 INR Coag (PPP) [Relative time] 1.0 {INR} Normal 0.9-1.3 [facility] Comment on above: Order Comment: Speci men Type: BLOOD SPECIMEN Result Comment: Luciana min K Antagonist (VKA) Therapeutic Range: INR 2 to 3 (Target INR of 2.5) Note: For patients treated with VKA drugs, such as warfarin, the [place] [employer] 2012 Guideline recommends [...] 2.5 to 3.5 (target INR of 3). Guyatt GH, et al. Chest 2012, 141:7S-47S Andres RA, et al. JAC 2017, 70: 252-289 Performed By: #### 2 432-2, [facility], 1987-08 #### [facility] CLIA [id number] [address] OF [facility] PT Coag (PPP) [Time] 11.4 s Normal 9.7-13.0 [facility] Comment on above: Order Comment: Speci men Type: BLOOD SPECIMEN Performed By: #### 2 432-2, [facility], 1987-08 #### [facility] [place] CLIA [id number] [address] US ABD RIGHT UPPER QUADRANTo n 02-15-2021 [...] ductal dilation. 2. Suggestion of hepatic steatosis. Telephony Engineer: PSCB Transcribe Date/Time: Feb 15 2021 1:04P Dictated by : TAMIKO VACA MD This examination was interpreted and the report reviewed and electronically signed by: TAMIKO VACA MD on Feb 15 2021 1:07PM EST [id number] Normal [facility] Urinalysis complete panel (U )on 02-15-2021 Bacteria LM.HPF (Urine sed) [#/Area] None Seen Normal None Seen [facility] Comment on above: Order Comment: Speci men Type: BLOOD SPECIMEN Performed By: #### 2 4320-05, [facility], 1987-08 #### [facility] CLIA [id number] [address] Bilirubin Ql (U) Negative Normal Negative [facility] Comment on above: Order Comment: Speci men Type: BLOOD SPECIMEN Performed By: #### 2 4320-05, [facility], 1987-08 #### [facility] CLIA [id number] [address] Clarity (Unsp spec) Clear Normal Clear [facility] Comment on above: Order Comment: Speci men Type: BLOOD SPECIMEN Performed By: #### 2 4320-05, [facility], 1987-08 #### [facility] CLIA [id number] [address] Color (U) Yellow Normal Yellow [facility] Comment on above: Order Comment: Speci men Type: BLOOD SPECIMEN Performed By: #### 2 4320-05, [facility], 1987-08 #### [facility] [employer] [facility] CLIA [id number] [address] Epithelial cells LM.HPF (Urine sed) [#/Area] 0.3 /[HPF] Normal [facility] Comment on above: Order Comment: Speci men Type: BLOOD SPECIMEN Performed By: #### 2 4320-05, [facility], 1987-08 #### [facility] CLIA [id number] [address] Glucose Test strip (U) [Mass/Vol] Negative Normal Negative [facility] Comment on above: Order Comment: Speci men Type: BLOOD SPECIMEN Performed By: #### 2 4320-05, [facility], 1987-08 #### [facility] CLIA [id number] [address] Hemoglobin Ql (U) Negative Normal Negative [facility] Comment on above: Order Comment: Speci men Type: BLOOD SPECIMEN Performed By: #### 2 4320-05, [facility], 1987-08 #### [facility] CLIA [id number] [address] Hyaline casts (Urine sed) [#/Area] 0 /[LPF] Normal 0 /LPF [facility] Comment on above: Order Comment: Speci men Type: BLOOD SPECIMEN Performed By: #### 2 4320-, [facility], 1987-08 #### [facility] CLIA [id number] [address] Ketones Ql (U) 15 mg/dL Abnormal Negative [facility] Comment on above: Order Comment: Speci men Type: BLOOD SPECIMEN Performed By: #### 2 4320-05, [facility], 1987-08 #### [facility] CLIA [id number] [address] Leukocyte esterase Test strip Ql (U) Negative Normal Negative [facility] Comment on above: Order Comment: Speci men Type: BLOOD SPECIMEN Performed By: #### 2 4320-05, [facility], 1987-08 #### [facility] CLIA [id number] [address] Nitrite Ql (U) Negative Normal Negative [facility] Comment on above: Order Comment: Speci men Type: BLOOD SPECIMEN Performed By: #### 2 4320-05, [facility], 1987-08 #### [facility] CLIA [id number] [address] pH (U) 5.5 [pH] Normal 5.0-8.0 [facility] Comment on above: Order Comment: Speci men Type: BLOOD SPECIMEN Performed By: #### 2 4320-05, [facility], 1987-08 #### [facility] CLIA [id number] [address] Protein (U) [Mass/Vol] Negative Normal Negative [facility] Comment on above: Order Comment: Speci men Type: BLOOD SPECIMEN Performed By: #### 2 4320-05, [facility], 1987-08 #### [facility] CLIA [id number] [address] RBC LM.HPF (Urine sed) [#/Area] 6-10 /HPF Abnormal 0-3 /HPF [facility] Comment on above: Order Comment: Speci men Type: BLOOD SPECIMEN Performed By: #### 2 4320-, [facility], 1987-08 #### [facility] CLIA [id number] [address] Specific gravity (U) [Rel density] 1.023 Normal 1.005-1.03 0 [facility] Comment on above: Order Comment: Speci men Type: BLOOD SPECIMEN Performed By: #### 2 4320-05, [facility], 1987-08 #### [facility] CLIA [id number] [address] Urobilinogen Ql (U) 0.2 EU/dL Normal 0.2-1.0 EU/dL [facility] Comment on above: Order Comment: Speci men Type: BLOOD SPECIMEN Performed By: #### 2 4320-05, [facility], 1987-08 #### [facility] CLIA [id number] [address] WBC LM.HPF (Urine sed) [#/Area] 0-5 /HPF Normal 0-5 /HPF [facility] Comment on above: Order Comment: Speci men Type: BLOOD SPECIMEN Performed By: #### 2 4320-05, [facility], 1987-08 #### [facility] CLIA [id number] [address] XR CHEST 2V FRONTAL/LATon XR CHEST [...] pneumonia or any other acute cardiopulmonary abnormality. Telephony Engineer: MADDIE Transcribe Date/Time: Feb 15 2021 12:36A Dictated by : JAIR GARIBAY MD This examination was interpreted and the report reviewed and electronically signed by: JAIR GARIBAY MD on Feb 15 2021 12:37AM EST [id number] Normal [facility] aPTT PPPon 02-15-2021 aPTT Coag (PPP) [Time] 27.9 s Normal 23.0-32.4 [facility] Comment on above: Order Comment: Speci men Type: BLOOD SPECIMEN Performed By: #### 2 4321-2, [facility], 1987- #### [facility] CLIA [id number] [address] OF [facility] Basic Metabolic Panelon 11-0 Calcium [Mass/Vol] 8.5 mg/dL Normal 8.4-10.4 [facility] Comment on above: Performed By: #### B GLU #### [facility] [address] [place] [address] Glucose [Mass/Vol] 103 mg/dL High 70-100 [facility] Comment on above: Performed By: #### B GLU #### [facility] [address] [place] [address] Urea nitrogen [Mass/Vol] 12 mg/dL Normal 7-17 [facility] Comment on above: Performed By: #### B GLU #### [facility] [address] [place] [address] Anion gap [Moles/Vol] 5 mmol/L Normal 3-13 [facility] Comment on above: Performed By: #### B GLU #### [facility] [address] [place] [address] CO2 [Moles/Vol] 23 mmol/L Normal 22-30 [facility] Comment on above: Performed By: #### B GLU #### [facility] [address] [place] [address] Creatinine [Mass/Vol] 0.90 mg/dL Normal 0.52-1.25 [facility] Comment on above: Performed By: #### B GLU #### [facility] [address] [place] [address] GFR/1.73 sq M.predicted among blacks MDRD (S/P/Bld) [Vol rate/Area] mL/min/{1.73_m2} Normal >60 [facility] Comment on above: Performed By: #### B GLU #### [facility] [address] [place] [address] GFR/1.73 sq M.predicted among non-blacks MDRD (S/P/Bld) [Vol rate/Area] 85.4 mL/min/{1.73_m2} Normal >60 [facility] Comment on above: Result Comment: KDIG O [...] secretion. Performed By: #### B GLU #### [facility] [address] [place] [address] Chloride [Moles/Vol] 106 mmol/L Normal 98-107 [facility] Comment on above: Performed By: #### B GLU #### [facility] [address] [place] [address] Potassium [Moles/Vol] 3.8 mmol/L Normal 3.5-5.1 [facility] Comment on above: Performed By: #### B GLU #### [facility] [address] [place] [address] Sodium [Moles/Vol] 134 mmol/L Low 135-145 [facility] Comment on above: Performed By: #### B GLU #### [facility] [address] [place] [address] Basic Metabolic Panel w/ Ref steve to MGOrdered By: Elyse Whitney on 02-01-2021 Anion gap [Moles/Vol] 5 mmol/L 3 - 13 mmol/L [facility] Work Phone: Calcium [Mass/Vol] 8.5 mg/dL 8.4 - 10. 4 mg/dL [facility] Work Phone: Chloride [Moles/Vol] 106 mmol/L 98 - 10 7 mmol/L [facility] Work Phone: CO2 [Moles/Vol] 23 mmol/L 22 - 30 mmol/L [facility] Work Phone: Creatinine [Mass/Vol] 0.9 mg/dL 0.52 - 1.25 mg/dL [facility] Work Phone: EGFR IF NonAfrican [place] 85.4 mL/min >60 [facility] Work Phone: Comment on above: KDIGO guidelines [...] mg/dL [facility] Work Phone: Test Performed by [facility], [address] [place] [address] [facility] Work Phone: [facility] Work Phone: CBC Auto DifferentialOrdered By: Elyse Whitney on 02-01-2021 Absolute Baso # 0.0 10*3/uL 0.0 - 0.2 10*3/uL [facility] Work Phone: Absolute Neut # 3.3 10*3/uL 1.8 - 7.0 10*3/uL [facility] Work Phone: [phone] Basophils/100 WBC (Bld) 0.6 % 0.0 - 2.0 % [facility] Work Phone: 222 Eosinophils (Bld) [#/Vol] 0.1 10*3/uL 0.0 - 0.5 10*3/uL [facility] Work Phone: 222 Eosinophils/100 WBC (Bld) 2.7 % 1.0 - 6.0 % [facility] Work Phone: 222 Granulocytes/100 WBC (Bld) 64.2 % 40.0 - 80.0 % [facility] Work Phone: [phone] Hematocrit (Bld) [Volume fraction] 41.7 % 40.0 - 52.0 % [employer] Work Phone: [phone] Hemoglobin.gastrointest inal spec 1 Ql (Stl) 14.0 g/dL 13.0 - 18.0 g/dL [employer] Work Phone: [phone] Interpretation and review of laboratory results Abnormal [employer] Work Phone: [phone] Lymphocytes (Bld) [#/Vol] 1.3 10*3/uL 1.0 - 4.3 10*3/uL [employer] Work Phone: [phone] Lymphocytes/100 WBC (Bld) 24.9 % 20.0 - 40.0 % [employer] Work Phone: [phone] MCH (RBC) [Entitic mass] 29.9 pg 26.0 - 34.0 pg [employer] Work Phone: [phone] MCHC (RBC) [Mass/Vol] 33.6 % 32.0 - 36.0 % [employer] Work Phone: [phone] MCV (RBC) [Entitic vol] 89.0 fL 80.0 - 98.0 fL [employer] Work Phone: [phone] Monocytes (Bld) [#/Vol] 0.4 10*3/uL 0.0 - 0.8 10*3/uL [employer] Work Phone: [phone] Monocytes/100 WBC (Bld) 7.6 % 2.0 - 10.0 % [employer] Work Phone: [phone] Platelet distribution width (Bld) [Ratio] 12.0 % 11.5 - 14.5 % [employer] Work Phone: [phone] Platelet mean volume (Bld) [Entitic vol] 7.9 fL 7.4 - 10.4 fL [employer] Work Phone: [phone] Platelets (Bld) [#/Vol] 107 10*3/uL Low 140 - 440 10*3/uL [employer] Work Phone: [phone] RBC (Bld) [#/Vol] 4.69 10*6/uL 4.40 - 5.90 10*6/uL [facility] Work Phone: WBC (Bld) [#/Vol] 5.2 10*3/uL 3.6 - 10.7 10*3/uL [facility] Work Phone: Test Performed by [facility], [address] [place] [address] [facility] Work Phone: [facility] Work Phone: Hemogram w/ Autodiffon 02-01 Abs Baso Cnt 0.0 10*3/uL Normal 0.0-0.2 [facility] Comment on above: Performed By: #### B GLU #### [facility] [address] [place] [address] Abs Neutrophile Cnt 3.3 10*3/uL Normal 1.8-7.0 [facility] Comment on above: Performed By: #### B GLU #### [facility] [address] [place] [address] Basophils/100 WBC (Bld) 0.6 % Normal 0.0-2.0 [facility] Comment on above: Performed By: #### B GLU #### [facility] [address] [place] [address] Eosinophils (Bld) [#/Vol] 0.1 10*3/uL Normal 0.0-0.5 [facility] Comment on above: Performed By: #### B GLU #### [facility] [address] [place] [address] Eosinophils/100 WBC (Bld) 2.7 % Normal 1.0-6.0 [facility] Comment on above: Performed By: #### B GLU #### [facility] [address] [place] [address] Erythrocyte distribution width (RBC) [Ratio] 12.0 % Normal 11.5-14.5 [facility] Comment on above: Performed By: #### B GLU #### [facility] [address] [place] [address] Granulocytes/100 WBC (Bld) 64.2 % Normal 40.0-80.0 [facility] Comment on above: Performed By: #### B GLU #### [facility] [address] [place] [address] Hematocrit (Bld) [Volume fraction] 41.7 % Normal 40.0-52.0 [facility] Comment on above: Performed By: #### B GLU #### [facility] [address] [place] [address] Hemoglobin (Bld) [Mass/Vol] 14.0 g/dL Normal 13.0-18.0 [facility] Comment on above: Performed By: #### B GLU #### [facility] [address] [place] [address] Lymphocytes (Bld) [#/Vol] 1.3 10*3/uL Normal 1.0-4.3 [facility] Comment on above: Performed By: #### B GLU #### [place] [address] [place] [address] Lymphocytes/100 WBC (Bld) 24.9 % Normal 20.0-40.0 [facility] Comment on above: Performed By: #### B GLU #### [place] [address] [place] [address] MCH (RBC) [Entitic mass] 29.9 pg Normal 26.0-34.0 [facility] Comment on above: Performed By: #### B GLU #### [facility] [address] [place] [address] MCHC 33.6 % Normal 32.0-36.0 [facility] Comment on above: Performed By: #### B GLU #### [facility] [address] [place] [address] MCV (RBC) [Entitic vol] 89.0 fL Normal 80.0-98.0 [facility] Comment on above: Performed By: #### B GLU #### [facility] [address] [place] [address] Monocytes (Bld) [#/Vol] 0.4 10*3/uL Normal 0.0-0.8 [facility] Comment on above: Performed By: #### B GLU #### [place] [address] [place] [address] Monocytes/100 WBC (Bld) 7.6 % Normal 2.0-10.0 [facility] Comment on above: Performed By: #### B GLU #### [facility] [address] [place] [address] Platelet mean volume (Bld) [Entitic vol] 7.9 fL Normal 7.4-10.4 [facility] Comment on above: Performed By: #### B GLU #### [facility] [address] [place] [address] Platelets (Bld) [#/Vol] 107 10*3/uL Low 140-440 [facility] Comment on above: Performed By: #### B GLU #### [facility] [address] [place] [address] RBC (Bld) [#/Vol] 4.69 10*6/uL Normal 4.40-5.90 [facility] Comment on above: Performed By: #### B GLU #### [facility] [address] [place] [address] WBC (Bld) [#/Vol] 5.2 10*3/uL Normal 3.6-10.7 [facility] Comment on above: Performed By: #### B GLU #### [facility] [address] 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 : 1950 Requested By: DENZEL MENDES Order Number: [id number] Reading MD: Magno Meadows Measurements Intervals [place] Rate: 71 P: 39 [place]: 184 QRS: -66 QRSD: 120 T: 47 QT: 404 QTc: 439 Interpretive Statements SINUS RHYTHM LEFT ANTERIOR FASCICULAR BLOCK BASELINE WANDER IN LEAD(S) V2 Electronically Signed On 01-31-2021 12:23:30 EDT by Magno Meadows [facility] Work Phone: Mark, [facility] Incoming Cardiology Results From Frankie/Ericany - 01/31/2021 12:24 PM EDT [facility] Test Date: 2021-01-30 Pat Name: SHOLA MARTINEZ Department: 01 Room: 37 Gender: M 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: KAREN : 1950 Requested By: DENZEL MENDES Order Number: [id number] Reading MD: Magno Meadows Measurements Intervals [place] Rate: 71 P: 39 [place]: 184 QRS: -66 QRSD: 120 T: 47 QT: 404 QTc: 439 Interpretive Statements SINUS RHYTHM LEFT ANTERIOR FASCICULAR BLOCK BASELINE WANDER IN LEAD(S) V2 Electronically Signed On 01-31-2021 12:23:30 EDT by Magno Meadows [facility] Work Phone: [employer] Work Phone: Lipid Panelon 01-31-2021 Chol/HDL 3 Normal [facility] Comment on above: Result Comment: Ref Range: < 3 Low Risk for CHD 3-6 Mod Risk for CHD > 6 High Risk for CHD Performed By: #### B GLU #### [facility] [address] [place] [address] Cholesterol in HDL [Mass/Vol] 24 mg/dL Low 40-60 [facility] Comment on above: Performed By: #### B GLU #### [facility] [address] [place] [address] Low Density Lipoprotein 14 mg/dL Normal <100 [facility] Comment on above: Performed By: #### B GLU #### [facility] [address] [place] [address] Triglyceride [Mass/Vol] 147 mg/dL Normal <150 [facility] Comment on above: Performed By: #### B GLU #### [facility] [address] [place] [address] Cholesterol [Mass/Vol] 67 mg/dL Normal < 200 [facility] Comment on above: Performed By: #### B GLU #### [facility] [address] [place] [address] Lipid panel - fastingOrdered By: Eb Burgos on 01-31-2021 Cholesterol [Mass/Vol] 67 mg/dL <200 [facility] Work Phone: Cholesterol in HDL [Mass/Vol] 24 mg/dL Low 40 - 60 mg/dL [facility] Work Phone: Cholesterol in LDL [Mass/Vol] 14 mg/dL <100 [facility] Work Phone: Cholesterol.total/Yoselin sterol in HDL [Mass ratio] 3 {ratio} [facility] Work Phone: Comment on above: Ref Range: < 3 Low Risk for CHD 3-6 Mod Risk for CHD > 6 High Risk for CHD Interpretation and review of laboratory results Abnormal [facility] Work Phone: Triglyceride [Mass/Vol] 147 mg/dL <150 S [facility] Work Phone: Test Performed by [facility], [address] [place] [address] [place] [address] [facility] Work Phone: [facility] Work Phone: MRI Brain w/o Contraston MRI Brain w/o Contrast Patient Name: SHOLA TERRY [facility] ACCESSION EXAM DATE/TIME PROCEDURE ORDERING PROVIDER [id number] 01/31/2021 13:35 EDT MRI Brain w/o Contrast 5640 [address] [place] CPT code 26051 Reason For Exam (MRI Brain w/o Contrast) [...] Transcribed Date and Time: 01/31/2021 2:49 Normal [facility] MRI brain without contrast ( REVIEW IMAGING OBTAINED IN LAST 2 YRS to determine indication)Ordered By: Eb Burgos on 01-31-2021 [id number] ACCESSION EXAM DATE/TIME PROCEDURE ORDERING PROVIDER [id number] 01/31/2021 13:35 EDT MRI Brain w/o Contrast 5640 -EB [place] CPT code 87786 Reason For Exam (MRI Brain w/o Contrast) [...] Time: 01/31/2021 2:49 [facility] Work Phone: Mark, [facility] Incoming Radiology Results From [employer] - 01/31/2021 2:49 PM EDT Patient [facility]: [id number] ACCESSION EXAM DATE/TIME PROCEDURE ORDERING PROVIDER [id number] 01/31/2021 13:35 EDT MRI Brain w/o Contrast 5640 [address] [place] CPT code 29944 Reason For Exam (MRI Brain w/o Contrast) [...] GIBBS Transcribed Date and Time: 01/31/2021 2:49 [facility] Work Phone: [facility] Work Phone: APTTon 01-30-2021 aPTT Coag (Bld) [Time] 26.3 s Normal 20.0-30.5 [facility] Comment on above: Result Comment: NOTE : The therapeutic time for Heparin anticoagulation, based on Xa activity inhibition, is an APTT of 46-80 seconds. Performed By: #### B GLU #### [facility] [address] [place] [address] APTTOrdered By: Denzel cm on 01-30-2021 aPTT Coag (Bld) [Time] 26.3 s 20.0 - 30.5 s [facility] Work Phone: [phone] Comment on above: NOTE: The therapeuti c time for Heparin anticoagulation, based on Xa activity inhibition, is an APTT of 46-80 seconds. CBC Auto DifferentialOrdered By: Denzel Mendes on 01-30-2021 Absolute Baso # 0.0 10*3/uL 0.0 - 0.2 10*3/uL [facility] Work Phone: [phone] Absolute Neut # 5.0 10*3/uL 1.8 - 7.0 10*3/uL [facility] Work Phone: [phone] Basophils/100 WBC (Bld) 0.5 % 0.0 - 2.0 % [facility] Work Phone: [phone] Eosinophils (Bld) [#/Vol] 0.1 10*3/uL 0.0 - 0.5 10*3/uL [facility] Work Phone: [phone] Eosinophils/100 WBC (Bld) 1.5 % 1.0 - 6.0 % [facility] Work Phone: [phone] Granulocytes/100 WBC (Bld) 78.6 % 40.0 - 80.0 % [facility] Work Phone: [phone] Hematocrit (Bld) [Volume fraction] 41.6 % 40.0 - 52.0 % [facility] Work Phone: [phone] Hemoglobin.gastrointest inal spec 1 Ql (Stl) 14.6 g/dL 13.0 - 18.0 g/dL [facility] Work Phone: Interpretation and review of laboratory results Abnormal [facility] Work Phone: [phone] Lymphocytes (Bld) [#/Vol] 0.9 10*3/uL Low 1.0 - 4.3 10*3/uL [facility] Work Phone: [phone] Lymphocytes/100 WBC (Bld) 14.0 % Low 20.0 - 40.0 % [facility] Work Phone: [phone] MCH (RBC) [Entitic mass] 30.4 pg 26.0 - 34.0 pg [facility] Work Phone: [phone] MCHC (RBC) [Mass/Vol] 35.1 % 32.0 - 36.0 % [facility] Work Phone: [phone] MCV (RBC) [Entitic vol] 86.4 fL 80.0 - 98.0 fL [facility] Work Phone: [phone] Monocytes (Bld) [#/Vol] 0.3 10*3/uL 0.0 - 0.8 10*3/uL [facility] Work Phone: [phone] Monocytes/100 WBC (Bld) 5.4 % 2.0 - 10.0 % [facility] Work Phone: [phone] Platelet distribution width (Bld) [Ratio] 12.7 % 11.5 - 14.5 % [facility] Work Phone: [phone] Platelet mean volume (Bld) [Entitic vol] 7.5 fL 7.4 - 10.4 fL [facility] Work Phone: [phone] Platelets (Bld) [#/Vol] 114 10*3/uL Low 140 - 440 10*3/uL [facility] Work Phone: [phone] RBC (Bld) [#/Vol] 4.82 10*6/uL 4.40 - 5.90 10*6/uL [facility] Work Phone: [phone] WBC (Bld) [#/Vol] 6.3 10*3/uL 3.6 - 10.7 10*3/uL [facility] Work Phone: [phone] Test Performed by [facility], [address] [place] [address] [place] [address] [facility] Work Phone: [phone] [facility] Work Phone: [phone] HEAD WO CONTRASTOrdered B y: Denzel Mendes on 01-30-2021 Patient Name: SHOLA URBINA ND Computed Tomography ACCESSION EXAM DATE/TIME PROCEDURE ORDERING PROVIDER [id number] 01/30/2021 18:[address] Head or Brain w/o DENZEL CLIFTON CPT code 34594 Reason For Exam (CT Head or Brain [...] Phone: Mark, [facility] Incoming [facility] Results From [facility] - 01/30/2021 7:16 PM EDT [facility]: [id number] ACCESSION EXAM DATE/TIME PROCEDURE ORDERING PROVIDER [id number] 01/30/2021 18:[address] Head or Brain w/o 5615 -ELISHA MENDESYA Contrast CPT code 84063 Reason For Exam (CT Head or Brain [...] Brain w/o Contrast [facility]: [id number] Computed Tomography ACCESSION EXAM DATE/TIME PROCEDURE ORDERING PROVIDER [id number] 01/30/2021 18:[address] Head or Brain w/o Janis5 -DENZEL MENDES Contrast CPT code 70229 Reason For Exam (CT Head or Brain [...] Transcribed Date and Time: 01/30/2021 7:16 Normal [facility] Comp Panel with Mg Reflexon 01-30-2021 ALT [Catalytic activity/Vol] 27 U/L Normal 0-49 [facility] Comment on above: Result Comment: The ALT test is performed by an updated assay method. Please note that the reference intervals have been changed and are now sex specific. Performed By: #### B GLU #### [facility] [address] [place] [address] Calcium [Mass/Vol] 9.1 mg/dL Normal 8.4-10.4 [facility] Comment on above: Performed By: #### B GLU #### [facility] [address] [place] [address] Glucose [Mass/Vol] 130 mg/dL High 70-100 [facility] Comment on above: Performed By: #### B GLU #### [facility] [address] [place] [address] ALP [Catalytic activity/Vol] 75 U/L Normal 38-126 [facility] Comment on above: Performed By: #### B GLU #### [facility] [address] [place] [address] Anion gap [Moles/Vol] 10 mmol/L Normal 3-13 [facility] Comment on above: Performed By: #### B GLU #### [facility] [address] [place] [address] AST [Catalytic activity/Vol] 35 U/L Normal 15-46 [facility] Comment on above: Performed By: #### B GLU #### [facility] [address] [place] [address] Bilirubin [Mass/Vol] 2.4 mg/dL High 0.2-1.3 [facility] Comment on above: Performed By: #### B GLU #### [facility] [address] [place] [address] CO2 [Moles/Vol] 23 mmol/L Normal 22-30 [facility] Comment on above: Performed By: #### B GLU #### [facility] [address] [place] [address] Creatinine [Mass/Vol] 0.86 mg/dL Normal 0.52-1.25 [facility] Comment on above: Performed By: #### B GLU #### [facility] [address] [place] [address] GFR/1.73 sq M.predicted among blacks MDRD (S/P/Bld) [Vol rate/Area] mL/min/{1.73_m2} Normal >60 [facility] Comment on above: Performed By: #### B GLU #### [facility] [address] [place] [address] GFR/1.73 sq M.predicted among non-blacks MDRD (S/P/Bld) [Vol rate/Area] 87.0 mL/min/{1.73_m2} Normal >60 [facility] Comment on above: Result Comment: KDIG O [...] secretion. Performed By: #### B GLU #### [facility] [address] [place] [address] Protein [Mass/Vol] 6.7 g/dL Normal 6.3-8.2 [facility] Comment on above: Performed By: #### B GLU #### [facility] [address] [place] [address] Urea nitrogen [Mass/Vol] 12 mg/dL Normal 7-17 [facility] Comment on above: Performed By: #### B GLU #### [facility] [address] [place] [address] Potassium [Moles/Vol] 4.1 mmol/L Normal 3.5-5.1 [facility] Comment on above: Performed By: #### B GLU #### [facility] [address] [place] [address] Sodium [Moles/Vol] 134 mmol/L Low 135-145 [facility] Comment on above: Performed By: #### B GLU #### [facility] [address] [place] [address] Albumin [Mass/Vol] 4.1 g/dL Normal 3.5-5.0 [facility] Comment on above: Performed By: #### B GLU #### [facility] [address] [place] [address] Chloride [Moles/Vol] 102 mmol/L Normal 98-107 [facility] Comment on above: Performed By: #### B GLU #### [facility] [address] [place] [address] Comprehensive Metabolic Pane l w/ Reflex to MGOrdered By: Denzel Mendes on 01-30-2021 Albumin [Mass/Vol] 4.1 g/dL 3.5 - 5.0 g/dL [facility] Work Phone: ALP (Bld) [Catalytic activity/Vol] 75 U/L 38 - 126 U/L [facility] Work Phone: ALT [Catalytic activity/Vol] 27 U/L 0 - 49 U/L [facility] Work Phone: Comment on above: The ALT test is perf ormed by an updated assay method. Please note that the reference intervals have been changed and are now sex specific. Anion gap [Moles/Vol] 10 mmol/L 3 - 13 mmol/L [facility] Work Phone: AST [Catalytic activity/Vol] 35 U/L 15 - 46 U/L [facility] Work Phone: Bilirubin [Mass/Vol] 2.4 mg/dL High 0.2 - 1 .3 mg/dL [facility] Work Phone: [phone] Calcium [Mass/Vol] 9.1 mg/dL 8.4 - 10. 4 mg/dL [facility] Work Phone: [phone] Chloride [Moles/Vol] 102 mmol/L 98 - 10 7 mmol/L [facility] Work Phone: [phone] CO2 [Moles/Vol] 23 mmol/L 22 - 30 mmol/L [facility] Work Phone: [phone] Creatinine [Mass/Vol] 0.86 mg/dL 0.52 - 1.25 mg/dL [facility] Work Phone: [phone] EGFR IF NonAfrican [place] 87.0 mL/min >60 [facility] Work Phone: [phone] Comment on above: KDIGO guidelines pro [...] fraction] 6.7 g/dL 6.3 - 8.2 g/dL [facility] Work Phone: GFR/1.73 sq M.predicted among blacks MDRD (S/P/Bld) [Vol rate/Area] mL/min/{1.73_m2} >60 mL/min [facility] Work Phone: Glucose [Mass/Vol] 130 mg/dL High 70 - 100 mg/dL [facility] Work Phone: Interpretation and review of laboratory results Abnormal [facility] Work Phone: Potassium [Moles/Vol] 4.1 mmol/L 3.5 - 5.1 mmol/L [facility] Work Phone: Sodium [Moles/Vol] 134 mmol/L Low 135 - 145 mmol/L [facility] Work Phone: Urea nitrogen (BldV) [Mass/Vol] 12 mg/dL 7 - 17 mg/dL [facility] Work Phone: Test Performed by [facility], [address] [place], [place], [place] [address] [facility] Work Phone: [facility] Work Phone: ED Provider Noteon ED Provider Note Emergency Department Encounter [facility] ED Patient: Shola Martinez : 1950 Date [...] are mis-transcribed.) Jesse Pack MD Acute Care [facility] Jesse Pack MD 01/31/21 0743 [facility] ED Provider Note [facility] ED eMERGENCY dEPARTMENT eNCOUnter Pt Name: Shola [...] ? Cataract ? Chronic obstructive pulmonary disease ([facility]) 08/20/2018 ? CKD (chronic kidney disease) stage 2, GFR 60-89 ml/min 09/12/2019 ? Community acquired pneumonia 04/2016 ? Diabetic neuropathy ([facility]) ? Dizziness after head injury 05/2013 ? Hx of blood clots ? Hyperlipidemia ? Hypertension ? Morbid obesity ([facility]) 05/21/2018 ? Recurrent UTI 02/03/2018 ? Sepsis due to gram-negative UTI ([facility]) 12/11/2017 ? Sleep apnea ? Type II [...] BY M (more content not included)... Normal [facility] Hemogram w/ Autodiffon 01-30 Abs Baso Cnt 0.0 10*3/uL Normal 0.0-0.2 [facility] Comment on above: Performed By: #### B GLU #### [facility] [address] [place] [address] Abs Neutrophile Cnt 5.0 10*3/uL Normal 1.8-7.0 [facility] Comment on above: Performed By: #### B GLU #### [facility] [address] [place] [address] Basophils/100 WBC (Bld) 0.5 % Normal 0.0-2.0 S [facility] Comment on above: Performed By: #### B GLU #### [facility] [address] [place] [address] Eosinophils (Bld) [#/Vol] 0.1 10*3/uL Normal 0.0-0.5 [facility] Comment on above: Performed By: #### B GLU #### [facility] [address] [place] [address] Eosinophils/100 WBC (Bld) 1.5 % Normal 1.0-6.0 [facility] Comment on above: Performed By: #### B GLU #### [facility] [address] [place] [address] Erythrocyte distribution width (RBC) [Ratio] 12.7 % Normal 11.5-14.5 [facility] Comment on above: Performed By: #### B GLU #### [facility] [address] [place] [address] Granulocytes/100 WBC (Bld) 78.6 % Normal 40.0-80.0 [facility] Comment on above: Performed By: #### B GLU #### [facility] [address] [place] [address] Hematocrit (Bld) [Volume fraction] 41.6 % Normal 40.0-52.0 [facility] Comment on above: Performed By: #### B GLU #### [facility] [address] [place] [address] Hemoglobin (Bld) [Mass/Vol] 14.6 g/dL Normal 13.0-18.0 [facility] Comment on above: Performed By: #### B GLU #### [facility] [address] [place] [address] Lymphocytes (Bld) [#/Vol] 0.9 10*3/uL Low 1.0-4.3 [facility] Comment on above: Performed By: #### B GLU #### [facility] [address] [place] [address] Lymphocytes/100 WBC (Bld) 14.0 % Low 20.0-40.0 [facility] Comment on above: Performed By: #### B GLU #### [facility] [address] [place] [address] MCH (RBC) [Entitic mass] 30.4 pg Normal 26.0-34.0 [facility] Comment on above: Performed By: #### B GLU #### [facility] [address] [place] [address] MCHC 35.1 % Normal 32.0-36.0 [facility] Comment on above: Performed By: #### B GLU #### [facility] [address] [place] [address] MCV (RBC) [Entitic vol] 86.4 fL Normal 80.0-98.0 S [facility] Comment on above: Performed By: #### B GLU #### [facility] [address] [place] [address] Monocytes (Bld) [#/Vol] 0.3 10*3/uL Normal 0.0-0.8 [facility] Comment on above: Performed By: #### B GLU #### [facility] [address] [place] [address] Monocytes/100 WBC (Bld) 5.4 % Normal 2.0-10.0 S [facility] Comment on above: Performed By: #### B GLU #### [facility] [address] [place] [address] Platelet mean volume (Bld) [Entitic vol] 7.5 fL Normal 7.4-10.4 [facility] Comment on above: Performed By: #### B GLU #### [facility] [address] [place] [address] Platelets (Bld) [#/Vol] 114 10*3/uL Low 140-440 [facility] Comment on above: Performed By: #### B GLU #### [facility] [address] [place] [address] RBC (Bld) [#/Vol] 4.82 10*6/uL Normal 4.40-5.90 [facility] Comment on above: Performed By: #### B GLU #### [facility] [address] [place] [address] WBC (Bld) [#/Vol] 6.3 10*3/uL Normal 3.6-10.7 [facility] Comment on above: Performed By: #### B GLU #### [facility] [address] [place] [address] No Panel InformationOrdered By: Denzel Mendes on 01-30-2021 Test Performed by [facility], [address] [place], [place] [address] [facility] Work Phone: [facility] Work Phone: Prothrombin Timeon INR 1.1 Normal 0.9-1.1 [facility] Comment on above: Result Comment: Jacob mmended [...] Infarction Performed By: #### B GLU #### [facility] [address] [place] [address] PT Coag (PPP) [Time] 11.5 s Normal 9.0-12.0 [facility] Comment on above: Result Comment: . Performed By: #### B GLU #### [facility] [address] [place] [address] Protime-INROrdered By: Denzel Mendes on 01-30-2021 INR Coag (Bld) [Relative time] 1.1 {INR} [facility] Work Phone: Comment on above: Recommended Anticoag [...] 11.5 s 9.0 - 1 2.0 s [facility] Work Phone: Comment on above: . TroponinOrdered By: Denzel Mario on 01-30-2021 Troponin I.cardiac [Mass/Vol] ng/mL 0.000 - 0.034 ng/mL [facility] Work Phone: Comment on above: . Test Performed by [facility], [address] [place] [address] [facility] Work Phone: [facility] Work Phone: Troponin Ion 01-30-2021 Troponin I.cardiac [Mass/Vol] ng/mL Normal 0.000-0.03 4 [facility] Comment on above: Result Comment: . Performed By: #### B GLU #### [facility] [address] [place] [address] Glucose,Bedsideon 10-07-2020 Glucose [Mass/Vol] 139 mg/dL High 70-100 [facility] Comment on above: Result Comment: Test performed by glucose meter. Results may be 10%-15% lower than serum/plasma values. (CLIA ID [id number]) Performed By: #### B GLU #### [facility] [address] [place] [address] Glucose [Mass/Vol] 119 mg/dL High 70-100 [facility] Comment on above: Result Comment: Test performed by glucose meter. Results may be 10%-15% lower than serum/plasma values. (CLIA ID [id number]) Performed By: #### A DDON #### [facility] [address] [place] [address] Glucose,Bedsideon 10-06-2020 Glucose [Mass/Vol] 147 mg/dL High 70-100 [facility] Comment on above: Result Comment: Test performed by glucose meter. Results may be 10%-15% lower than serum/plasma values. (CLIA ID [id number]) Performed By: #### B GLU #### [facility] [address] [place] [address] Glucose [Mass/Vol] 147 mg/dL High 70-100 [facility] Comment on above: Result Comment: Test performed by glucose meter. Results may be 10%-15% lower than serum/plasma values. (CLIA ID [id number]) Performed By: #### B GLU #### [facility] [address] [place] [address] Glucose [Mass/Vol] 126 mg/dL High [address] [facility] Comment on above: Result Comment: Test performed by glucose meter. Results may be 10%-15% lower than serum/plasma values. (CLIA ID [id number]) Performed By: #### A DDON #### [facility] [address] [place] [address] Glucose [Mass/Vol] 237 mg/dL High 70-100 [facility] Comment on above: Result Comment: Test performed by glucose meter. Results may be 10%-15% lower than serum/plasma values. (CLIA ID [id number]) Performed By: #### B GLU #### [facility] [address] [place] [address] Glucose [Mass/Vol] 116 mg/dL High 7[address] [facility] Comment on above: Result Comment: Test performed by glucose meter. Results may be 10%-15% lower than serum/plasma values. (CLIA ID [id number]) Performed By: #### B GLU #### [place] [address] [place] [address] Glucose,Bedsideon 10-05-2020 Glucose [Mass/Vol] 185 mg/dL [address] Comment on above: Result Comment: Test performed by glucose meter. Results may be 10%-15% lower than serum/plasma values. (CLIA ID [id number]) Performed By: #### B GLU #### [facility] [address] [place] [address] Glucose [Mass/Vol] 122 mg/dL High 7[address] [facility] Comment on above: Result Comment: Test performed by glucose meter. Results may be 10%-15% lower than serum/plasma values. (CLIA ID [id number]) Performed By: #### B GLU #### [facility] [address] [place] [address] Glucose [Mass/Vol] 191 mg/dL High 70-100 [facility] Comment on above: Result Comment: Test performed by glucose meter. Results may be 10%-15% lower than serum/plasma values. (CLIA ID [id number]) Performed By: #### B GLU #### [facility] [address] [place] [address] Glucose [Mass/Vol] 117 mg/dL High 70-100 [facility] Comment on above: Result Comment: Test performed by glucose meter. Results may be 10%-15% lower than serum/plasma values. (CLIA ID [id number]) Performed By: #### B GLU #### [facility] [address] [place] [address] Basic Metabolic Panelon 07-0 -2020 Calcium [Mass/Vol] 8.9 mg/dL Normal 8.4-10.4 [facility] Comment on above: Performed By: #### B GLU #### [facility] [address] [place] [address] Anion gap [Moles/Vol] 5 mmol/L Normal 3-13 [facility] Comment on above: Performed By: #### B GLU #### [facility] [address] [place] [address] CO2 [Moles/Vol] 28 mmol/L Normal 22-30 [facility] Comment on above: Performed By: #### B GLU #### [facility] [address] [place] [address] Creatinine [Mass/Vol] 0.84 mg/dL Normal 0.52-1.25 [facility] Comment on above: Performed By: #### B GLU #### [facility] [address] [place] [address] GFR/1.73 sq M.predicted among blacks MDRD (S/P/Bld) [Vol rate/Area] mL/min/{1.73_m2} Normal >60 [facility] Comment on above: Performed By: #### B GLU #### [facility] [address] [place] [address] GFR/1.73 sq M.predicted among non-blacks MDRD (S/P/Bld) [Vol rate/Area] 88.0 mL/min/{1.73_m2} Normal >60 [facility] Comment on above: Result Comment: KDIG O [...] secretion. Performed By: #### B GLU #### [facility] [address] [place] [address] Glucose [Mass/Vol] 121 mg/dL High 70-100 [facility] Comment on above: Performed By: #### B GLU #### [facility] [address] [place] [address] Urea nitrogen [Mass/Vol] 13 mg/dL Normal 7-20 [facility] Comment on above: Performed By: #### B GLU #### [facility] [address] [place] [address] Chloride [Moles/Vol] 101 mmol/L Normal 98-107 [facility] Comment on above: Performed By: #### B GLU #### [facility] [address] [place] [address] Potassium [Moles/Vol] 4.3 mmol/L Normal 3.5-5.1 [facility] Comment on above: Performed By: #### B GLU #### [facility] [address] [place] [address] Sodium [Moles/Vol] 133 mmol/L Low 135-145 [facility] Comment on above: Performed By: #### B GLU #### [facility] [address] [place] [address] Glucose,Bedsideon 10-04-2020 Glucose [Mass/Vol] 145 mg/dL High 70-100 [facility] Comment on above: Result Comment: Test performed by glucose meter. Results may be 10%-15% lower than serum/plasma values. (CLIA ID [id number]) Performed By: #### B GLU #### [facility] [address] [place] [address] Glucose [Mass/Vol] 128 mg/dL High 70-100 [facility] Comment on above: Result Comment: Test performed by glucose meter. Results may be 10%-15% lower than serum/plasma values. (CLIA ID [id number]) Performed By: #### B GLU #### [facility] [address] [place] [address] Glucose [Mass/Vol] 208 mg/dL High 70-100 [facility] Comment on above: Result Comment: Test performed by glucose meter. Results may be 10%-15% lower than serum/plasma values. (CLIA ID [id number]) Performed By: #### B GLU #### [facility] [address] [place] [address] Glucose [Mass/Vol] 145 mg/dL High 70-100 [facility] Comment on above: Result Comment: Test performed by glucose meter. Results may be 10%-15% lower than serum/plasma values. (CLIA ID [id number]) Performed By: #### B GLU #### [facility] [address] [place] [address] Hemogram w/ Autodiffon 10-04 Abs Baso Cnt 0.0 10*3/uL Normal 0.0-0.2 [facility] Comment on above: Performed By: #### B GLU #### [facility] [address] [place] [address] Abs Neutrophile Cnt 3.2 10*3/uL Normal 1.8-7.0 [facility] Comment on above: Performed By: #### B GLU #### [facility] [address] [place] [address] Basophils/100 WBC (Bld) 0.7 % Normal 0.0-2.0 S [facility] Comment on above: Performed By: #### B GLU #### [facility] [address] [place] [address] Eosinophils (Bld) [#/Vol] 0.3 10*3/uL Normal 0.0-0.5 [facility] Comment on above: Performed By: #### B GLU #### [facility] [address] [place] [address] Eosinophils/100 WBC (Bld) 5.5 % Normal 1.0-6.0 [facility] Comment on above: Performed By: #### B GLU #### [facility] [address] [place] [address] Erythrocyte distribution width (RBC) [Ratio] 12.4 % Normal 11.5-14.5 [facility] Comment on above: Performed By: #### B GLU #### [facility] [address] [place] [address] Granulocytes/100 WBC (Bld) 60.5 % Normal 40.0-80.0 [facility] [facility] Comment on above: Performed By: #### B GLU #### [facility] [address] [place] [address] Hematocrit (Bld) [Volume fraction] 43.5 % Normal 40.0-52.0 [facility] Comment on above: Performed By: #### B GLU #### [facility] [address] [place] [address] Hemoglobin (Bld) [Mass/Vol] 15.5 g/dL Normal 13.0-18.0 [facility] Comment on above: Performed By: #### B GLU #### [facility] [address] [place] [address] Lymphocytes (Bld) [#/Vol] 1.4 10*3/uL Normal 1.0-4.3 [facility] Comment on above: Performed By: #### B GLU #### [facility] [address] [place] [address] Lymphocytes/100 WBC (Bld) 26.1 % Normal 20.0-40.0 [facility] Comment on above: Performed By: #### B GLU #### [facility] [address] [place] [address] MCH (RBC) [Entitic mass] 32.0 pg Normal 26.0-34.0 [facility] Comment on above: Performed By: #### B GLU #### [facility] [address] [place] [address] MCHC 35.6 % Normal 32.0-36.0 [facility] Comment on above: Performed By: #### B GLU #### [facility] [address] [place] [address] MCV (RBC) [Entitic vol] 89.8 fL Normal 80.0-98.0 S [facility] Comment on above: Performed By: #### B GLU #### [facility] [address] [place] [address] Monocytes (Bld) [#/Vol] 0.4 10*3/uL Normal 0.0-0.8 [facility] Comment on above: Performed By: #### B GLU #### [facility] [address] [place] [address] Monocytes/100 WBC (Bld) 7.2 % Normal 2.0-10.0 [facility] Comment on above: Performed By: #### B GLU #### [facility] [address] [place] [address] Platelet mean volume (Bld) [Entitic vol] 7.3 fL Low 7.4-10.4 [facility] Comment on above: Performed By: #### B GLU #### [facility] [address] [place] [address] Platelets (Bld) [#/Vol] 113 10*3/uL Low 140-440 [facility] Comment on above: Performed By: #### B GLU #### [facility] [address] [place] [address] RBC (Bld) [#/Vol] 4.84 10*6/uL Normal 4.40-5.90 [facility] Comment on above: Performed By: #### B GLU #### [facility] [address] [place] [address] WBC (Bld) [#/Vol] 5.3 10*3/uL Normal 3.6-10.7 [facility] Comment on above: Performed By: #### B GLU #### [facility] [address] [place] [address] Glucose,Bedsideon 07-04-2021 Glucose [Mass/Vol] 134 mg/dL [address] Comment on above: Result Comment: Test performed by glucose meter. Results may be 10%-15% lower than serum/plasma values. (CLIA ID [id number]) Performed By: #### B GLU #### [facility] [address] [place] [address] Glucose [Mass/Vol] 132 mg/dL High [address] [place] [address] Comment on above: Result Comment: Test performed by glucose meter. Results may be 10%-15% lower than serum/plasma values. (CLIA ID [id number]) Performed By: #### A DDON #### [facility] [address] [place] [address] Glucose [Mass/Vol] 130 mg/dL [address] Comment on above: Result Comment: Test performed by glucose meter. Results may be 10%-15% lower than serum/plasma values. (CLIA ID [id number]) Performed By: #### B GLU #### [facility] [address] [place] [address] Glucose [Mass/Vol] 151 mg/dL [address] Comment on above: Result Comment: Test performed by glucose meter. Results may be 10%-15% lower than serum/plasma values. (CLIA ID [id number]) Performed By: #### B GLU #### [facility] [address] [place] [address] Glucose,Bedsideon 10-02-2020 Glucose [Mass/Vol] 135 mg/dL [address] Comment on above: Result Comment: Test performed by glucose meter. Results may be 10%-15% lower than serum/plasma values. (CLIA ID [id number]) Performed By: #### B GLU #### [facility] [address] [place] [address] Glucose [Mass/Vol] 133 mg/dL [address] Comment on above: Result Comment: Test performed by glucose meter. Results may be 10%-15% lower than serum/plasma values. (CLIA ID [id number]) Performed By: #### B GLU #### [facility] [address] [place] [address] Glucose [Mass/Vol] 158 mg/dL High 70-100 [facility] Comment on above: Result Comment: Test performed by glucose meter. Results may be 10%-15% lower than serum/plasma values. (CLIA ID [id number]) Performed By: #### B GLU #### [facility] [address] [place] [address] Glucose [Mass/Vol] 120 mg/dL High 70-100 [facility] Comment on above: Result Comment: Test performed by glucose meter. Results may be 10%-15% lower than serum/plasma values. (CLIA ID [id number]) Performed By: #### B GLU #### [facility] [address] [place] [address] Basic Metabolic Panelon 07-0 -2020 Calcium [Mass/Vol] 8.7 mg/dL Normal 8.4-10.4 [facility] Comment on above: Performed By: #### B GLU #### [facility] [address] [place] [address] Anion gap [Moles/Vol] 5 mmol/L Normal 3-13 [facility] Comment on above: Performed By: #### B GLU #### [facility] [address] [place] [address] CO2 [Moles/Vol] 26 mmol/L Normal 22-30 [facility] Comment on above: Performed By: #### B GLU #### [facility] [address] [place] [address] Creatinine [Mass/Vol] 0.88 mg/dL Normal 0.52-1.25 [facility] Comment on above: Performed By: #### B GLU #### [facility] [address] [place] [address] GFR/1.73 sq M.predicted among blacks MDRD (S/P/Bld) [Vol rate/Area] mL/min/{1.73_m2} Normal >60 [facility] Comment on above: Performed By: #### B GLU #### [facility] [address] [place] [address] GFR/1.73 sq M.predicted among non-blacks MDRD (S/P/Bld) [Vol rate/Area] 86.4 mL/min/{1.73_m2} Normal >60 [facility] Comment on above: Result Comment: KDIG O [...] secretion. Performed By: #### B GLU #### [facility] [address] [place] [address] Glucose [Mass/Vol] 120 mg/dL High 70-100 [facility] Comment on above: Performed By: #### B GLU #### [facility] [address] [place] [address] Urea nitrogen [Mass/Vol] 13 mg/dL Normal 7-20 [facility] Comment on above: Performed By: #### B GLU #### [facility] [address] [place] [address] Chloride [Moles/Vol] 101 mmol/L Normal 98-107 [facility] Comment on above: Performed By: #### B GLU #### [facility] [address] [place] [address] Potassium [Moles/Vol] 4.2 mmol/L Normal 3.5-5.1 [facility] Comment on above: Performed By: #### B GLU #### [facility] [address] [place] [address] Sodium [Moles/Vol] 132 mmol/L Low 135-145 [facility] Comment on above: Performed By: #### B GLU #### [facility] [address] [place] [address] Echo Complete w/wo Contrasto n 10-01-2020 Echo Complete w/wo Contrast Patient Name: SHOLA MARTINEZ Ultrasound ACCESSION EXAM DATE/TIME PROCEDURE ORDERING PROVIDER [id number] 10/01/2020 10:18 EDT Echo Complete w/wo [id number] -CIERRA BALLARD Reason For Exam (Echo Complete w/wo Contrast) diastolic HF, no recent EF Report TRANSTHORACIC ECHOCARDIOGRAM PATIENT: Shola Martinez STUDY DATE: 10/01/2020 : 1950 AGE: 70 HT/WT: 188 cm (74 124.3 kg in) (273.4 lb) GENDER: M BP: 129 / 69 LOCATION: [facility] PATIENT Observation [facility] STATUS: *ORDERING PHYSICIAN: * Cierra Ballard *READING PHYSICIAN: * Pacheco Degroot MD, *TIMBER BUCKER: * Cierra Adamson [facility] INDICATIONS: Diastolic HF, No recent EF. CONCLUSIONS [...] 10.2 11.3 (more content not included)... Normal [facility] Glucose,Bedsideon 10-01-2020 Glucose [Mass/Vol] 119 mg/dL High 70-100 [facility] Comment on above: Result Comment: Test performed by glucose meter. Results may be 10%-15% lower than serum/plasma values. (CLIA ID [id number]) Performed By: #### B GLU #### [facility] [address] [place] [address] Glucose [Mass/Vol] 125 mg/dL High 70[address] [place] [address] Comment on above: Result Comment: Test performed by glucose meter. Results may be 10%-15% lower than serum/plasma values. (CLIA ID [id number]) Performed By: #### B GLU #### [facility] [address] [place] [address] Glucose [Mass/Vol] 132 mg/dL High 70-100 [facility] Comment on above: Result Comment: Test performed by glucose meter. Results may be 10%-15% lower than serum/plasma values. (CLIA ID [id number]) Performed By: #### B GLU #### [facility] [address] [place] [address] Glucose [Mass/Vol] 119 mg/dL High 70-100 [facility] Comment on above: Result Comment: Test performed by glucose meter. Results may be 10%-15% lower than serum/plasma values. (CLIA ID [id number]) Performed By: #### B GLU #### [facility] [address] [place] [address] Hemogram w/ Autodiffon 10-01 Abs Baso Cnt 0.0 10*3/uL Normal 0.0-0.2 [facility] Comment on above: Performed By: #### B GLU #### [facility] [address] [place] [address] Abs Neutrophile Cnt 3.8 10*3/uL Normal 1.8-7.0 [facility] Comment on above: Performed By: #### B GLU #### [facility] [address] [place] [address] Basophils/100 WBC (Bld) 0.7 % Normal 0.0-2.0 S [facility] Comment on above: Performed By: #### B GLU #### [facility] [address] [place] [address] Eosinophils (Bld) [#/Vol] 0.4 10*3/uL Normal 0.0-0.5 [facility] Comment on above: Performed By: #### B GLU #### [facility] [address] [place] [address] Eosinophils/100 WBC (Bld) 7.1 % High 1.0-6.0 [facility] Comment on above: Performed By: #### B GLU #### [facility] [address] [place] [address] Erythrocyte distribution width (RBC) [Ratio] 12.1 % Normal 11.5-14.5 [facility] Comment on above: Performed By: #### B GLU #### [facility] [address] [place] [address] Granulocytes/100 WBC (Bld) 61.8 % Normal 40.0-80.0 [facility] Comment on above: Performed By: #### B GLU #### [facility] [address] [place] [address] Hematocrit (Bld) [Volume fraction] 41.1 % Normal 40.0-52.0 [facility] Comment on above: Performed By: #### B GLU #### [facility] [address] [place] [address] Hemoglobin (Bld) [Mass/Vol] 14.5 g/dL Normal 13.0-18.0 [facility] Comment on above: Performed By: #### B GLU #### [facility] [address] [place] [address] Lymphocytes (Bld) [#/Vol] 1.5 10*3/uL Normal 1.0-4.3 [facility] Comment on above: Performed By: #### B GLU #### [facility] [address] [place] [address] Lymphocytes/100 WBC (Bld) 24.5 % Normal 20.0-40.0 [facility] Comment on above: Performed By: #### B GLU #### [facility] [address] [place] [address] MCH (RBC) [Entitic mass] 31.9 pg Normal 26.0-34.0 [facility] Comment on above: Performed By: #### B GLU #### [facility] [address] [place] [address] MCHC 35.4 % Normal 32.0-36.0 [facility] Comment on above: Performed By: #### B GLU #### [facility] [address] [place] [address] MCV (RBC) [Entitic vol] 90.1 fL Normal 80.0-98.0 S [facility] Comment on above: Performed By: #### B GLU #### [facility] [address] [place] [address] Monocytes (Bld) [#/Vol] 0.4 10*3/uL Normal 0.0-0.8 [facility] Comment on above: Performed By: #### B GLU #### [facility] [address] [place] [address] Monocytes/100 WBC (Bld) 5.9 % Normal 2.0-10.0 [facility] Comment on above: Performed By: #### B GLU #### [facility] [address] [place] [address] Platelet mean volume (Bld) [Entitic vol] 7.1 fL Low 7.4-10.4 [facility] Comment on above: Performed By: #### B GLU #### [facility] [address] [place] [address] Platelets (Bld) [#/Vol] 131 10*3/uL Low 140-440 [facility] Comment on above: Performed By: #### B GLU #### [facility] [address] [place] [address] RBC (Bld) [#/Vol] 4.56 10*6/uL Normal 4.40-5.90 [facility] Comment on above: Performed By: #### B GLU #### [facility] [address] [place] [address] WBC (Bld) [#/Vol] 6.1 10*3/uL Normal 3.6-10.7 [facility] Comment on above: Performed By: #### B GLU #### [facility] [address] [place] [address] Lipid Panelon 10-01-2020 Chol/HDL 4 Normal [facility] Comment on above: Result Comment: Ref Range: < 3 Low Risk for CHD 3-6 Mod Risk for CHD > 6 High Risk for CHD Performed By: #### B GLU #### [facility] [address] [place] [address] Cholesterol in HDL [Mass/Vol] 23 mg/dL Low 40-60 [facility] Comment on above: Performed By: #### B GLU #### [facility] [address] [place] [address] Low Density Lipoprotein 22 mg/dL Normal <100 S [facility] Comment on above: Performed By: #### B GLU #### [facility] [address] [place] [address] Cholesterol [Mass/Vol] 82 mg/dL Normal < 200 [facility] Comment on above: Performed By: #### B GLU #### [facility] [address] [place] [address] Triglyceride [Mass/Vol] 184 mg/dL Abnormal <150 S [facility] Comment on above: Performed By: #### B GLU #### [facility] [address] [place] [address] MRA Head w/o Contraston 07-0 MRA Head w/o Contrast Patient Name: SHOLA MIN [facility] ACCESSION EXAM DATE/TIME PROCEDURE ORDERING PROVIDER [id number] 10/01/2020 14:40 EDT MRA Head w/o Contrast CIERRA GONSALEZ CPT code 76407 Reason For Exam (MRA Head w/o Contrast) [...] is seen within the vessels of the [place]. The globes and orbital contents [...] Imaging Report is origin of the left [employer]. There is no critical intracranial stenosis. There [...] MRA other than origin of the left [employer]. Unremarkable MRA of the carotid arteries. No evidence of carotid artery stenosis. Report Dictated on Workstation: [id number] Final Dictating Physician: DO GARCÍA ALFRED Signed Date and Time: 10/01/2020 3:16 pm Signed by: DO GARCÍA ALFRED Transcribed Date and Time: 10/01/2020 3:17 Normal [facility] MRA Neck w/ + w/o Contraston 10-01-2020 MRA Neck w/ + w/o Contrast Patient Name: SHOLA MARTINEZ [facility] ACCESSION EXAM DATE/TIME PROCEDURE ORDERING PROVIDER [id number] 10/01/2020 15:07 EDT MRA Neck w/ + w/o CIERRA GONSALEZ Contrast CPT code 99060 Reason For Exam (MRA Neck w/ + [...] is seen within the vessels of the [place]. The globes and orbital contents [...] vessels. There is origin of the left [employer]. There is no critical intracranial stenosis. There [...] MRA other than origin of the left [employer]. Unremarkable MRA of the carotid arteries. No evidence of carotid artery stenosis. Report Dictated on Workstation: [id number] Final Dictating Physician: DO GARCÍA ALFRED Signed Date and Time: 10/01/2020 3:16 pm Signed by: DO GARCÍA ALFRED Transcribed Date and Time: 10/01/2020 3:17 Normal [facility] MRI Brain w/ + w/o Contrasto n 10-01-2020 MRI Brain w/ + w/o Contrast Patient Name: SHOLA MARTINEZ [facility]#: [id number] Magnetic Resonance Imaging ACCESSION EXAM DATE/TIME PROCEDURE ORDERING PROVIDER [id number] 10/01/2020 15:08 EDT MRI Brain w/ + w/o CIERRA GONSALEZ Contrast CPT code 22170 Reason For Exam (MRI Brain w/ + [...] is seen within the vessels of the [place]. The globes and orbital contents [...] vessels. There is origin of the left [employer]. There is no critical intracranial stenosis. There [...] MRA other than origin of the left [employer]. Unremarkable MRA of the carotid arteries. No evidence of carotid artery stenosis. Report Dictated on Workstation: [id number] Final Dictating Physician: DO GARCÍA ALFRED Signed Date and Time: 10/01/2020 3:16 pm Signed by: DO GARCÍA ALFRED Transcribed Date and Time: 10/01/2020 3:17 Normal [facility] Add on test from HISon 09-30 Add on test from HIS Accepted Normal [facility] [email or web address] [facility] Comment on above: Result Comment: Spec imen available & acceptable for analysis. Performed By: #### A DDON #### [facility] [address] [place] [address] CT Head or Brain w/o Contras ton 09-30-2020 CT Head or Brain w/o Contrast [facility]: [id number] Tom[facility] ACCESSION EXAM DATE/TIME PROCEDURE ORDERING PROVIDER [id number] 09/30/2020 13:[address] Head or Brain w/o JESSE PACK Contrast CPT code 27032 Reason For Exam (CT Head or Brain [...] Transcribed Date and Time: 09/30/2020 2:13 Normal [facility] Comp Panel with Mg Reflexon 09-30-2020 ALP [Catalytic activity/Vol] 83 U/L Normal 38-126 [facility] Comment on above: Performed By: #### B GLU #### [facility] [address] [place] [address] ALT [Catalytic activity/Vol] 28 U/L Normal 0-49 [facility] Comment on above: Result Comment: The ALT test is performed by an updated assay method. Please note that the reference intervals have been changed and are now sex specific. Performed By: #### B GLU #### [facility] [address] [place] [address] Anion gap [Moles/Vol] 11 mmol/L Normal 3-13 [facility] Comment on above: Performed By: #### B GLU #### [facility] [address] [place] [address] AST [Catalytic activity/Vol] 37 U/L Normal 15-46 [facility] Comment on above: Performed By: #### B GLU #### [facility] [address] [place] [address] Bilirubin [Mass/Vol] 1.7 mg/dL High 0.2-1.3 [facility] Comment on above: Performed By: #### B GLU #### [facility] [address] [place] [address] Calcium [Mass/Vol] 9.5 mg/dL Normal 8.4-10.4 [facility] Comment on above: Performed By: #### B GLU #### [facility] [address] [place] [address] CO2 [Moles/Vol] 21 mmol/L Low 22-30 [facility] Comment on above: Performed By: #### B GLU #### [facility] [address] [place] [address] Creatinine [Mass/Vol] 0.90 mg/dL Normal 0.52-1.25 [facility] Comment on above: Performed By: #### B GLU #### [facility] [address] [place] [address] GFR/1.73 sq M.predicted among blacks MDRD (S/P/Bld) [Vol rate/Area] mL/min/{1.73_m2} Normal >60 [facility] Comment on above: Performed By: #### B GLU #### [facility] [address] [place] [address] GFR/1.73 sq M.predicted among non-blacks MDRD (S/P/Bld) [Vol rate/Area] 85.6 mL/min/{1.73_m2} Normal >60 [facility] Comment on above: Result Comment: KDIG O [...] secretion. Performed By: #### B GLU #### [facility] [address] [place] [address] Glucose [Mass/Vol] 173 mg/dL High 70-100 [facility] Comment on above: Performed By: #### B GLU #### [facility] [address] [place] [address] Protein [Mass/Vol] 7.6 g/dL Normal 6.3-8.2 [facility] Comment on above: Performed By: #### B GLU #### [facility] [address] [place] [address] Urea nitrogen [Mass/Vol] 12 mg/dL Normal 7-20 [facility] Comment on above: Performed By: #### B GLU #### [facility] [address] [place] [address] Albumin [Mass/Vol] 4.3 g/dL Normal 3.5-5.0 [facility] Comment on above: Performed By: #### B GLU #### [facility] [address] [place] [address] Chloride [Moles/Vol] 102 mmol/L Normal 98-107 [facility] Comment on above: Performed By: #### B GLU #### [facility] [address] [place] [address] Potassium [Moles/Vol] 4.2 mmol/L Normal 3.5-5.1 [facility] Comment on above: Performed By: #### B GLU #### [facility] [address] [place] [address] Sodium [Moles/Vol] 135 mmol/L Normal 135-145 [facility] Comment on above: Performed By: #### B GLU #### [facility] [address] [place] [address] ED Provider Noteon ED Provider Note Sandra KATALINACasey ED EMERGENCY DEPARTMENT ENCOUNTER Pt Name: Shola [...] Community acquired pneumonia 04/2016 ? Diabetic neuropathy ([facility]) ? Dizziness after head injury 05/2013 ? Hx of blood clots ? Hyperlipidemia ? Hypertension ? Morbid obesity ([facility]) 05/21/2018 ? Recurrent UTI 02/03/2018 ? Sepsis due to gram-negative UTI ([facility]) 12/11/2017 ? Sleep apnea ? Type II [...] Diabetes Mot (more content not included)... Normal [facility] Glucose,Bedsideon 09-30-2020 Glucose [Mass/Vol] 159 mg/dL High 70-100 [facility] [email or web address] [facility] Comment on above: Result Comment: Test performed by glucose meter. Results may be 10%-15% lower than serum/plasma values. (CLIA ID [id number]) Performed By: #### A DDON #### [facility] [address] [place] [address] Glucose [Mass/Vol] 118 mg/dL High 70-100 [facility] Comment on above: Result Comment: Test performed by glucose meter. Results may be 10%-15% lower than serum/plasma values. (CLIA ID [id number]) Performed By: #### B GLU #### [facility] [address] [place] [address] Glucose [Mass/Vol] 171 mg/dL High 70-100 [facility] Comment on above: Result Comment: Test performed by glucose meter. Results may be 10%-15% lower than serum/plasma values. (CLIA ID [id number]) Performed By: #### B GLU #### [facility] [address] [place] [address] Hemoglobin A1Con 09-30-2020 Glucose [Mass/Vol] 131 mg/dL Normal [facility] Comment on above: Performed By: #### B GLU #### [facility] [address] [place] [address] HbA1c (Bld) [Mass fraction] 6.2 % Abnormal [facility] Comment on above: Result Comment: Norm al less than 5.7% Prediabetes 5.7% to 6.4% Diabetes 6.5% or higher --HgbA1C levels may not be accurate in patients who have renal disease, received recent blood transfusions, are anemic, or who have dyshemoglobinemia. Performed By: #### B GLU #### [facility] [address] [place] [address] Hemogram w/ Autodiffon 09-30 Abs Baso Cnt 0.0 10*3/uL Normal 0.0-0.2 [facility] Comment on above: Performed By: #### B GLU #### [facility] [address] [place] [address] Abs Neutrophile Cnt 5.9 10*3/uL Normal 1.8-7.0 [facility] [email or web address] [facility] Comment on above: Performed By: #### B GLU #### [facility] [address] [place] [address] Basophils/100 WBC (Bld) 0.5 % Normal 0.0-2.0 S [facility] Comment on above: Performed By: #### B GLU #### [facility] [address] [place] [address] Eosinophils (Bld) [#/Vol] 0.4 10*3/uL Normal 0.0-0.5 [facility] Comment on above: Performed By: #### B GLU #### [facility] [address] [place] [address] Eosinophils/100 WBC (Bld) 4.7 % Normal 1.0-6.0 [facility] Comment on above: Performed By: #### B GLU #### [facility] [address] [place] [address] Erythrocyte distribution width (RBC) [Ratio] 12.2 % Normal 11.5-14.5 [facility] Comment on above: Performed By: #### B GLU #### [facility] [address] [place] [address] Granulocytes/100 WBC (Bld) 74.9 % Normal 40.0-80.0 [facility] Comment on above: Performed By: #### B GLU #### [facility] [address] [place] [address] Hematocrit (Bld) [Volume fraction] 44.2 % Normal 40.0-52.0 [facility] Comment on above: Performed By: #### B GLU #### [facility] [address] [place] [address] Hemoglobin (Bld) [Mass/Vol] 15.4 g/dL Normal 13.0-18.0 [facility] Comment on above: Performed By: #### B GLU #### [facility] [address] [place] [address] Lymphocytes (Bld) [#/Vol] 1.2 10*3/uL Normal 1.0-4.3 [facility] Comment on above: Performed By: #### B GLU #### [facility] [address] [place] [address] Lymphocytes/100 WBC (Bld) 14.9 % Low 20.0-40.0 [facility] Comment on above: Performed By: #### B GLU #### [facility] [address] [place] [address] MCH (RBC) [Entitic mass] 31.2 pg Normal 26.0-34.0 [facility] Comment on above: Performed By: #### B GLU #### [facility] [address] [place] [address] MCHC 34.9 % Normal 32.0-36.0 [facility] Comment on above: Performed By: #### B GLU #### [facility] [address] [place] [address] MCV (RBC) [Entitic vol] 89.5 fL Normal 80.0-98.0 S [facility] Comment on above: Performed By: #### B GLU #### [facility] [address] [place] [address] Monocytes (Bld) [#/Vol] 0.4 10*3/uL Normal 0.0-0.8 [facility] Comment on above: Performed By: #### B GLU #### [facility] [address] [place] [address] Monocytes/100 WBC (Bld) 5.0 % Normal 2.0-10.0 S [facility] Comment on above: Performed By: #### B GLU #### [facility] [address] [place] [address] Platelet mean volume (Bld) [Entitic vol] 6.7 fL Low 7.4-10.4 [facility] Comment on above: Performed By: #### B GLU #### [facility] [address] [place] [address] Platelets (Bld) [#/Vol] 170 10*3/uL Normal 140-440 [facility] Comment on above: Performed By: #### B GLU #### [facility] [address] [place] [address] RBC (Bld) [#/Vol] 4.94 10*6/uL Normal 4.40-5.90 [facility] Comment on above: Performed By: #### B GLU #### [facility] [address] [place] [address] WBC (Bld) [#/Vol] 8.0 10*3/uL Normal 3.6-10.7 [facility] Comment on above: Performed By: #### B GLU #### [facility] [address] [place] [address] Troponin Ion 09-30-2020 Troponin I.cardiac [Mass/Vol] ng/mL Normal 0.000-0.03 4 [facility] Comment on above: Result Comment: . Performed By: #### A DDON #### [facility] [address] [place] [address] Troponin I.cardiac [Mass/Vol] ng/mL Normal 0.000-0.03 4 [facility] Comment on above: Result Comment: . Performed By: #### B GLU #### [facility] [address] [place] [address] CNPNon 07-16-2020 CNPN Telephone (PARISAPRAD) -- SHOLA MARTINEZ ( ) 1950 M [...] Status:Closed by ESTELA LAU PA-C on 07/16/20 [facility] CT Cervical Spine WO Jordi jan 02-11-2020 Patient Name: SHOLA URBINA ND ---CT--- Exam Date/Time 02/11/2020 21:46:[address] Spine Cervical w/o Contrast Ordering Physician CAESAR ALBRECHT AMY L Accession Number [id number] CPT4 Codes 25840 () Reason For Exam FAll Report CT [...] MALAY Transcribed Date and Time: 02/11/2020 9:52 [facility], [facility] Incoming Radiology Results From [facility] - 02/11/2020 9:52 PM EST Patient Name: SHOLA MARTINEZ ---CT--- Exam Date/Time 02/11/2020 21:46:[address] Spine Cervical w/o Contrast Ordering Physician CAESAR ALBRECHT AMY L Accession Number [id number] CPT4 Codes 25506 () Reason For Exam FAll Report CT [...] MALAY Transcribed Date and Time: 02/11/2020 9:52 [facility], [place] CT Head WO Contraston 2019 Patient Name: SHOLA URBINA ND ---CT--- Exam Date/Time 02/11/2020 21:46:[address] Head or Brain w/o Contrast Ordering Physician CAESAR ALBRECHT AMY L Accession Number [id number] CPT4 Codes 14879 () Reason For Exam Fall Report CT [...] MALAY Transcribed Date and Time: 02/11/2020 9:48 [place], [place] [facility] Incoming Radiology Results From [facility] - 02/11/2020 9:49 PM EST Patient Name: SHOLA MARTINEZ ---CT--- Exam Date/Time 02/11/2020 21:46:[address] Head or Brain w/o Contrast Ordering Physician CAESAR ALBRECHT AMY L Accession Number [id number] CPT4 Codes 66847 () Reason For Exam Fall Report CT [...] MALAY Transcribed Date and Time: 02/11/2020 9:48 [facility], [place] XR LUMBAR SPINE (2-3 VIEWS)o n 02-11-2020 Patient Name: SHOLA URBINA [place] ---Diagnostic Radiology--- Exam Date/Time 02/11/2020 21:31:42 EST Exam CR Spine Lumbosacral 2 or 3 Views Ordering Physician CAESAR ALBRECHT AMY L Accession Number [id number] CPT4 Codes 75451 () Reason For Exam Fall Report Lumbosacral spine three views HISTORY: Fall, pain No fracture or dislocation. Mild degenerative changes. IMPRESSION: No acute findings. Report Dictated on --- Final --- Dictating Physician: MD FARRAR MALAY Signed Date and Time: 02/11/2020 9:45 pm Signed by: MD FARRAR MALAY Transcribed Date and Time: 02/11/2020 9:46 [place], [place] [facility] Incoming Radiology Results From [facility] - 02/11/2020 9:46 PM EST Patient Name: SHOLA MARTINEZ ---Diagnostic Radiology--- Exam Date/Time 02/11/2020 21:31:42 EST Exam CR Spine Lumbosacral 2 or 3 Views Ordering Physician CAESAR ALBRECHT AMY L Accession Number [id number] CPT4 Codes 53525 () Reason For Exam Fall Report Lumbosacral spine three views HISTORY: Fall, pain No fracture or dislocation. Mild degenerative changes. IMPRESSION: No acute findings. Report Dictated on --- Final --- Dictating Physician: MD FARRAR MALAY Signed Date and Time: 02/11/2020 9:45 pm Signed by: MD FARRAR MALAY Transcribed Date and Time: 02/11/2020 9:46 [place], [place] Basic Metabolic Panel w/ Ref steve to MGon 09-16-2019 Anion gap [Moles/Vol] 11 mmol/L [place], [place] Calcium [Mass/Vol] 8.3 mg/dL Low 8.4 - 10. 4 mg/dL [place] Chloride [Moles/Vol] 102 mmol/L 98 - 10 7 mmol/L [place] CO2 [Moles/Vol] 23 mmol/L 22 - 30 mmol/L [place] Creatinine [Mass/Vol] 0.72 mg/dL 0.52 - 1.25 mg/dL [place] EGFR IF NonAfrican [place] >90.0 >60 mL/min [place] Comment on above: KDIGO guidelines pro [...] MDRD (S/P/Bld) [Vol rate/Area] mL/min/{1.73_m2} >60 mL/min [place] Glucose [Mass/Vol] 142 mg/dL High 70 - 100 mg/dL [place] Interpretation and review of laboratory results Abnormal [place] Potassium [Moles/Vol] 4.0 mmol/L 3.5 - 5.1 mmol/L [place] Sodium [Moles/Vol] 136 mmol/L 135 - 145 mmol/L [place] Urea nitrogen [Mass/Vol] 8 mg/dL 7 - 20 mg/dL [place] Test Performed by [facility], [address] [place], [place] [address] [place], [place] CBCon 09-16-2019 Erythrocyte distribution width (RBC) [Ratio] 12.7 % 11.5 - 14.5 % [place] Hematocrit (Bld) [Volume fraction] 38.1 % Low 40 - 52 % [place] Hemoglobin (Bld) [Mass/Vol] 13.3 g/dL 13 - 18 g/dL [place] Interpretation and review of laboratory results Abnormal [place] MCH (RBC) [Entitic mass] 31.2 pg 26 - 34 pg [place] MCHC (RBC) [Mass/Vol] 34.9 % 32 - 36 % [place], [place] MCV (RBC) [Entitic vol] 89.5 fL 80 - 98 fL [place], [place] Platelet mean volume (Bld) [Entitic vol] 6.5 fL Low 7.4 - 10.4 fL [place] Platelets (Bld) [#/Vol] 202 10*3/uL 140 - 440 10*3/uL [place] RBC (Bld) [#/Vol] 4.25 10*6/uL Low 4.4 - 5.9 10*6/uL [place] WBC (Bld) [#/Vol] 6.6 10*3/uL 3.6 - 10.7 10*3/uL [place] Test Performed by [facility], [address] [place], [place] [id number] [place] [address] POCT Glucoseon 09-16-2019 Glucose [Mass/Vol] 182 mg/dL High 70 - 100 mg/dL [place] Comment on above: Test performed by ucose meter. Results may be 10%-15% lower than serum/plasma values. (CLIA ID [id number]) Interpretation and review of laboratory results Abnormal [place] Test Performed by [facility], [address] [place], [place] [address] [place] Glucose [Mass/Vol] 258 mg/dL High 70 - 100 mg/dL [place] Comment on above: Test performed by gl ucose meter. Results may be 10%-15% lower than serum/plasma values. (CLIA ID [id number]) Interpretation and review of laboratory results Abnormal [place] Test Performed by [facility], [address], [place], [place] [address] [place] Glucose [Mass/Vol] 138 mg/dL High 70 - 100 mg/dL [place] Comment on above: Test performed by gl ucose meter. Results may be 10%-15% lower than serum/plasma values. (CLIA ID [id number]) Interpretation and review of laboratory results Abnormal [place] Test Performed by [facility], [address], [place], [place] [address] [place] Basic Metabolic Panel w/ Ref steve to MGon 09-15-2019 Anion gap [Moles/Vol] 10 mmol/L [place], [place] Calcium [Mass/Vol] 8.2 mg/dL Low 8.4 - 10. 4 mg/dL [place] Chloride [Moles/Vol] 100 mmol/L 98 - 10 7 mmol/L [place] CO2 [Moles/Vol] 24 mmol/L 22 - 30 mmol/L [place] Creatinine [Mass/Vol] 0.71 mg/dL 0.52 - 1.25 mg/dL [place] EGFR IF NonAfrican [place] >90.0 >60 mL/min [place] Comment on above: KDIGO guidelines pro [...] MDRD (S/P/Bld) [Vol rate/Area] mL/min/{1.73_m2} >60 mL/min [place] Glucose [Mass/Vol] 136 mg/dL High 70 - 100 mg/dL [place] Interpretation and review of laboratory results Abnormal [place] Potassium [Moles/Vol] 3.9 mmol/L 3.5 - 5.1 mmol/L [place] Sodium [Moles/Vol] 133 mmol/L Low 135 - 145 mmol/L [place] Urea nitrogen [Mass/Vol] 7 mg/dL 7 - 20 mg/dL [place] Test Performed by [facility], [address] [place], [place] [address] [place] [address] CBCon 09-15-2019 Erythrocyte distribution width (RBC) [Ratio] 12.7 % 11.5 - 14.5 % [place] Hematocrit (Bld) [Volume fraction] 37.4 % Low 40 - 52 % [place] Hemoglobin (Bld) [Mass/Vol] 13.0 g/dL 13 - 18 g/dL [place] Interpretation and review of laboratory results Abnormal [place] MCH (RBC) [Entitic mass] 31.2 pg 26 - 34 pg [place] MCHC (RBC) [Mass/Vol] 34.7 % 32 - 36 % [place] MCV (RBC) [Entitic vol] 89.9 fL 80 - 98 fL [place] Platelet mean volume (Bld) [Entitic vol] 6.4 fL Low 7.4 - 10.4 fL [place] Platelets (Bld) [#/Vol] 198 10*3/uL 140 - 440 10*3/uL [place] RBC (Bld) [#/Vol] 4.15 10*6/uL Low 4.4 - 5.9 10*6/[facility] (Bld) [#/Vol] 8.2 10*3/uL 3.6 - 10.7 10*3/uL [facility] Test Performed by [facility], [address] [place], [place] [address] [facility] COVID-19on 09-15-2019 SARS-CoV-2 Not Detected Expected Result: Not Detected _ Real-time, RT-PCR performed on the [employer] System by the [facility]. Negative results do not preclude SARS-CoV-2 infection and should not be used as the sole basis for treatment or other patient management decisions. This assay was developed and its performance characteristics determined by the [facility]. This test has been developed under an Emergency Use Authorization (EUA) granted by the FDA for the qualitative detection of SARS-CoV-2 nucleic acid (validation review pending). [facility] [employer] Test Performed by [facility], [address] [place] [address] Specimen Source Comment:Nasopharyngeal Swab [facility] Otheron 09-15-2019 Interpretation and review of laboratory results Abnormal [facility] [employer] Test Performed by [facility], [address] [place] [address] [facility] POCT Glucoseon 09-15-2019 Glucose [Mass/Vol] 209 mg/dL High 70 - 100 mg/dL [facility] [place] Comment on above: Test performed by gl ucose meter. Results may be 10%-15% lower than serum/plasma values. (CLIA ID [id number]) Interpretation and review of laboratory results Abnormal [facility] [employer] Test Performed by [facility], [address] [place], [place] [address] [facility] Glucose [Mass/Vol] 140 mg/dL High 70 - 100 mg/dL [facility] [place] Comment on above: Test performed by gl ucose meter. Results may be 10%-15% lower than serum/plasma values. (CLIA ID [id number]) Interpretation and review of laboratory results Abnormal [facility] [place] Test Performed by [facility], [address], [place], [place] [address] [place] Glucose [Mass/Vol] 213 mg/dL High 70 - 100 mg/dL [place] Comment on above: Test performed by gl ucose meter. Results may be 10%-15% lower than serum/plasma values. (CLIA ID [id number]) Glucose [Mass/Vol] 145 mg/dL High 70 - 100 mg/dL [place] Comment on above: Test performed by gl ucose meter. Results may be 10%-15% lower than serum/plasma values. (CLIA ID [id number]) Glucose [Mass/Vol] 163 mg/dL High 70 - 100 mg/dL [place] Comment on above: Test performed by gl ucose meter. Results may be 10%-15% lower than serum/plasma values. (CLIA ID [id number]) Interpretation and review of laboratory results Abnormal [place] Test Performed by [facility], [address], [place], [place] [address] [place] Basic Metabolic Panel w/ Ref steve to MGon 09-14-2019 Anion gap [Moles/Vol] 12 mmol/L [place], [place] Calcium [Mass/Vol] 7.9 mg/dL Low 8.4 - 10. 4 mg/dL [place] Chloride [Moles/Vol] 100 mmol/L 98 - 10 7 mmol/L [place] CO2 [Moles/Vol] 22 mmol/L 22 - 30 mmol/L [place] Creatinine [Mass/Vol] 0.72 mg/dL 0.52 - 1.25 mg/dL [place] EGFR IF NonAfrican [place] >90.0 >60 mL/min [place] Comment on above: KDIGO guidelines pro [...] MDRD (S/P/Bld) [Vol rate/Area] mL/min/{1.73_m2} >60 mL/min [place] Glucose [Mass/Vol] 139 mg/dL High 70 - 100 mg/dL [place] Interpretation and review of laboratory results Abnormal [place] Potassium [Moles/Vol] 3.8 mmol/L 3.5 - 5.1 mmol/L [place] Sodium [Moles/Vol] 133 mmol/L Low 135 - 145 mmol/L [place] Urea nitrogen [Mass/Vol] 8 mg/dL 7 - 20 mg/dL [place] Test Performed by [facility], [address], [place] [id number] [place] [address] CBCon 09-14-2019 Erythrocyte distribution width (RBC) [Ratio] 12.8 % 11.5 - 14.5 % [place] Hematocrit (Bld) [Volume fraction] 37.8 % Low 40 - 52 % [place] Hemoglobin (Bld) [Mass/Vol] 13.1 g/dL 13 - 18 g/dL [place] Interpretation and review of laboratory results Abnormal [place] MCH (RBC) [Entitic mass] 31.2 pg 26 - 34 pg [place] MCHC (RBC) [Mass/Vol] 34.6 % 32 - 36 % [place], [place] MCV (RBC) [Entitic vol] 90.1 fL 80 - 98 fL [place] Platelet mean volume (Bld) [Entitic vol] 6.4 fL Low 7.4 - 10.4 fL [place] Platelets (Bld) [#/Vol] 173 10*3/uL 140 - 440 10*3/uL [facility], [place] RBC (Bld) [#/Vol] 4.19 10*6/uL Low 4.4 - 5.9 10*6/uL [facility], [place] WBC (Bld) [#/Vol] 9.2 10*3/uL 3.6 - 10.7 10*3/uL [facility], [place] Test Performed by [facility], [address], [place], [place] [address] [facility], [place] Culture, Urineon 09-14-2019 Bacteria identified Cx Nom (U) Enterococcus faecalis Abnormal [place], [place] Bacteria identified Cx Nom (U) >100,000 CFU/ml [place], [place] Interpretation and review of laboratory results Abnormal [facility], [place] Test Performed by [facility], [address] [place] [address] Specimen Source Comment:Urine, clean catch [place] POCT Glucoseon 09-14-2019 Glucose [Mass/Vol] 196 mg/dL High 70 - 100 mg/dL [place] Comment on above: Test performed by gl ucose meter. Results may be 10%-15% lower than serum/plasma values. (CLIA ID [id number]) Interpretation and review of laboratory results Abnormal [facility], [place] Test Performed by [facility], [address] [place], [place] [address] [place] Glucose [Mass/Vol] 134 mg/dL High 70 - 100 mg/dL [place] Comment on above: Test performed by gl ucose meter. Results may be 10%-15% lower than serum/plasma values. (CLIA ID [id number]) Interpretation and review of laboratory results Abnormal [facility], [place] Test Performed by [facility], [address] [place], [place] [address] [place] Glucose [Mass/Vol] 143 mg/dL High 70 - 100 mg/dL [facility], [place] Comment on above: Test performed by gl ucose meter. Results may be 10%-15% lower than serum/plasma values. (CLIA ID [id number]) Interpretation and review of laboratory results Abnormal [employer] Test Performed by [facility], [address] [place], [place] [address] [email or web address] Glucose [Mass/Vol] 144 mg/dL High 70 - 100 mg/dL [facility] [email or web address] Comment on above: Test performed by ucose meter. Results may be 10%-15% lower than serum/plasma values. (CLIA ID [id number]) Interpretation and review of laboratory results Abnormal [employer] Test Performed by [facility], [address] [place], [place] [id number] [place] [address] [email or web address] T4, Freeon 09-14-2019 Free T4 [Mass/Vol] 1.26 ng/dL 0.78 - 2.19 ng/dL [facility] [employer] Test Performed by [facility], [address] [place] [email or web address] TSH without Reflexon 020 TSH Qn 1.661 u[IU]/mL 0.465 - 4.68 u[IU]/mL [facility] [email or web address] Test Performed by [facility], [address] [place], [place] [id number] [place] [address] [email or web address] Vitamin D 25 Hydroxyon 09-13 Interpretation and review of laboratory results Abnormal [facility] [email or web address] Vit D, 25-Hydroxy 19 ng/mL Low 30 - 100 ng/mL [facility] [employer] [place] Comment on above: Therapy is based on measurement of Total 25-OHD with the following classification levels: Less than 20 ng/mL: Indicative of Vit D deficiency 20-30 ng/mL: Suggests Vit D insufficiency Optimal: Greater than or equal to 30 ng/mL Test performed by [employer] Immuno[employer], measuring Total Vitamin D, not individual fractions. Test Performed by [facility], [address] [place] [email or web address] Basic Metabolic Panel w/ Ref steve to MGon 09-13-2019 Anion gap [Moles/Vol] 13 mmol/L [facility] [employer] [place] Calcium [Mass/Vol] 7.3 mg/dL Low 8.4 - 10. 4 mg/dL [place] Chloride [Moles/Vol] 103 mmol/L 98 - 10 7 mmol/L [place] CO2 [Moles/Vol] 19 mmol/L Low 22 - 30 mmol/L [place] Creatinine [Mass/Vol] 0.7 mg/dL 0.52 - 1.25 mg/dL [place] EGFR IF NonAfrican [place] >90.0 >60 mL/min [place] Comment on above: KDIGO guidelines pro [...] MDRD (S/P/Bld) [Vol rate/Area] mL/min/{1.73_m2} >60 mL/min [place] Glucose [Mass/Vol] 143 mg/dL High 70 - 100 mg/dL [place] Interpretation and review of laboratory results Abnormal [place] Potassium [Moles/Vol] 3.5 mmol/L 3.5 - 5.1 mmol/L [place] Sodium [Moles/Vol] 134 mmol/L Low 135 - 145 mmol/L [place] Urea nitrogen [Mass/Vol] 10 mg/dL 7 - 20 mg/dL [place] Test Performed by [facility], [address], [place], [place] [address] [place] CBCon 09-13-2019 Erythrocyte distribution width (RBC) [Ratio] 12.9 % 11.5 - 14.5 % [place] Hematocrit (Bld) [Volume fraction] 34.7 % Low 40 - 52 % [place] Hemoglobin (Bld) [Mass/Vol] 12.0 g/dL Low 13 - 18 g/dL [place] Interpretation and review of laboratory results Abnormal [place] MCH (RBC) [Entitic mass] 31.6 pg 26 - 34 pg [place] MCHC (RBC) [Mass/Vol] 34.6 % 32 - 36 % [place] MCV (RBC) [Entitic vol] 91.2 fL 80 - 98 fL [place], [place] Platelet mean volume (Bld) [Entitic vol] 7.1 fL Low 7.4 - 10.4 fL [place], [place] Platelets (Bld) [#/Vol] 149 10*3/uL 140 - 440 10*3/uL [place] RBC (Bld) [#/Vol] 3.80 10*6/uL Low 4.4 - 5.9 10*6/uL [place] WBC (Bld) [#/Vol] 10.4 10*3/uL 3.6 - 10.7 10*3/uL [place] Test Performed by [facility], [address] [place] [id number] [place] [address] EKG 12 Leadon 09-13-2019 [facility] Test Date: 2019-09-12 Pat Name: Shola Martinez Department: 01 Room: 456 Gender: M 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: : 1950 Requested By: MOJGAN IVY Order Number: [id number] Reading MD: Pacheco Arriaga Measurements Intervals [place] Rate: 95 P: 57 [place]: 172 QRS: -67 QRSD: 118 T: 29 QT: 356 QTc: 448 Interpretive Statements SINUS RHYTHM CONSIDER LEFT ATRIAL ABNORMALITY INFERIOR INFARCT, OLD Electronically Signed On 09-13-2019 13:07:41 EDT by Pacheco Arriaga [place], [place], [facility] Incoming Cardiology Results From [employer] - 09/13/2019 1:08 PM EDT [facility] Test Date: 2019-09-12 Pat Name: Shola Martinez Department: Room: 456 Gender: M 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 [place], [place] [address] [employer] POCT Glucoseon 09-13-2019 Glucose [Mass/Vol] 193 mg/dL High 70 - 100 mg/dL [employer] Comment on above: Test performed by gl ucose meter. Results may be 10%-15% lower than serum/plasma values. (CLIA ID [id number]) Interpretation and review of laboratory results Abnormal [facility] [facility] Test Performed by [facility], [address] [place] [address] [facility], [employer] Glucose [Mass/Vol] 134 mg/dL High 70 - 100 mg/dL [facility] Comment on above: Test performed by gl ucose meter. Results may be 10%-15% lower than serum/plasma values. (CLIA ID [id number]) Interpretation and review of laboratory results Abnormal [facility] [facility] Test Performed by [facility], [address] [place], [place] [address] [facility] Glucose [Mass/Vol] 175 mg/dL High 70 - 100 mg/dL [facility] Comment on above: Test performed by gl ucose meter. Results may be 10%-15% lower than serum/plasma values. (CLIA ID [id number]) Interpretation and review of laboratory results Abnormal [facility] [facility] Test Performed by [facility], [address] [place], [place] [address] [place] Glucose [Mass/Vol] 190 mg/dL High 70 - 100 mg/dL [place] Comment on above: Test performed by gl ucose meter. Results may be 10%-15% lower than serum/plasma values. (CLIA ID [id number]) Interpretation and review of laboratory results Abnormal [place] Test Performed by [facility], [address] [place] [address] [place] Brain Natriuretic Peptideon 09-12-2019 Interpretation and review of laboratory results Abnormal [place] Natriuretic peptide B (Bld) [Mass/Vol] 344 pg/mL High 0 - 125 pg/mL [place] CKon 09-12-2019 Total CK 242 U/L High 30 - 170 U/L [place] COVID-19on 09-12-2019 SARS-CoV-2 Not Detected Expected Result: Not Detected _ Real-time, RT-PCR performed on the [email or web address] TORCH by the [facility]. Negative results do not preclude SARS-CoV-2 infection and should not be used as the sole basis for treatment or other patient management decisions. This assay was developed by [email or web address] and distributed under an Emergency Use Authorization (EUA) granted by the FDA for the qualitative detection of SARS-CoV-2 nucleic acid. [place] Test Performed by [facility], [address] [place] [address] Specimen Source Comment:Nasopharyngeal Swab [place] Comprehensive Metabolic Pane vineet 09-12-2019 Albumin [Mass/Vol] 4.4 g/dL 3.5 - 5 g/dL [place] ALP [Catalytic activity/Vol] 77 U/L 38 - 126 U/L [place] ALT [Catalytic activity/Vol] 25 U/L 0 - 49 U/L [place] Comment on above: The ALT test is perf ormed by an updated assay method. Please note that the reference intervals have been changed and are now sex specific. Anion gap [Moles/Vol] 17 mmol/L [place], [place] AST [Catalytic activity/Vol] 32 U/L 15 - 46 U/L [place] Bilirubin Ql (U) 2.5 mg/dL High 0.2 - 1.3 mg/dL [place] Calcium [Mass/Vol] 9.0 mg/dL 8.4 - 10. 4 mg/dL [place] Chloride [Moles/Vol] 96 mmol/L Low 98 - 10 7 mmol/L [place] CO2 [Moles/Vol] 22 mmol/L 22 - 30 mmol/L [place] Creatinine [Mass/Vol] 0.83 mg/dL 0.52 - 1.25 mg/dL [place] EGFR IF NonAfrican [place] 89.1 mL/min >60 [place] Comment on above: KDIGO guidelines pro [...] MDRD (S/P/Bld) [Vol rate/Area] mL/min/{1.73_m2} >60 mL/min [place] Glucose [Mass/Vol] 179 mg/dL High 70 - 100 mg/dL [place] Potassium [Moles/Vol] 4.0 mmol/L 3.5 - 5.1 mmol/L [place] Protein [Mass/Vol] 7.6 g/dL 6.3 - 8.2 g/dL [place] Sodium [Moles/Vol] 135 mmol/L 135 - 145 mmol/L [place] Urea nitrogen [Mass/Vol] 11 mg/dL 7 - 20 mg/dL [place] D-Dimer, Quantitativeon 08-31 D-Dimer, Quant 0.53 mg/L High 0 - 0.5 mg/L [place], [place] Comment on above: [employer] D-Dimer va lues of <0.50 mg/L FEU can be used in combination with a pre-test probability model (e.g. Well's) to exclude pulmonary embolism (PE) disease, as well as an aid in the diagnosis of deep vein thrombosis (DVT). Interpretation and review of laboratory results Abnormal [place] Test Performed by [facility], [address], [place], [place] [address] [place] Hemogram (CBC) w/Auto Diffon 09-12-2019 Absolute Baso # 0.0 10*3/uL 0 - 0.2 10*3/uL [place] Absolute Neut # 11.2 10*3/uL High 1.8 - 7 10*3/uL [place], [place] Basophils/100 WBC (Bld) 0.3 % 0 - 2 % [place] Eosinophils (Bld) [#/Vol] 0.0 10*3/uL 0 - 0.5 10*3/uL [place], [place] Eosinophils/100 WBC (Bld) 0.2 % Low 1 - 6 % [place] Erythrocyte distribution width (RBC) [Ratio] 12.6 % 11.5 - 14.5 % [place], [place] Granulocytes/100 WBC (Bld) 88.3 % High 40 - 80 % [place] Hematocrit (Bld) [Volume fraction] 41.5 % 40 - 52 % [place] Hemoglobin (Bld) [Mass/Vol] 14.6 g/dL 13 - 18 g/dL [place], [place] Interpretation and review of laboratory results Abnormal [place], [place] Lymphocytes (Bld) [#/Vol] 0.8 10*3/uL Low 1 - 4.3 10*3/uL [place], [place] Lymphocytes/100 WBC (Bld) 6.5 % Low 20 - 40 % [place] MCH (RBC) [Entitic mass] 31.5 pg 26 - 34 pg [place], [place] MCHC (RBC) [Mass/Vol] 35.1 % 32 - 36 % [place], [place] MCV (RBC) [Entitic vol] 89.7 fL 80 - 98 fL [place], [place] Monocytes (Bld) [#/Vol] 0.6 10*3/uL 0 - 0.8 10*3/uL [place], [place] Monocytes/100 WBC (Bld) 4.7 % 2 - 10 % [place], [place] Platelet mean volume (Bld) [Entitic vol] 7.5 fL 7.4 - 10.4 fL [place], [place] Platelets (Bld) [#/Vol] 192 10*3/uL 140 - 440 10*3/uL [place] RBC (Bld) [#/Vol] 4.63 10*6/uL 4.4 - 5.9 10*6/uL [place] WBC (Bld) [#/Vol] 12.7 10*3/uL High 3.6 - 10.7 10*3/uL [place] Test Performed by [facility], [address] [place] [address] Otheron 09-12-2019 Test Performed by [facility], [address] [place] [address] Interpretation and review of laboratory results Abnormal [place] Test Performed by [facility], [address] [place] [address] POCT Glucoseon 09-12-2019 Glucose [Mass/Vol] 166 mg/dL High 70 - 100 mg/dL [place] Comment on above: Test performed by ucose meter. Results may be 10%-15% lower than serum/plasma values. (CLIA ID [id number]) Interpretation and review of laboratory results Abnormal [place] Test Performed by [facility], [address] [place] [address] Troponin x1on 09-12-2019 Troponin I.cardiac [Mass/Vol] ng/mL 0 - 0.034 ng/mL [place] Comment on above: . Urinalysison 09-12-2019 Appearance (U) Clear Clear NA [place], [place] Comment on above: . Bacteria, UA Few Abnormal Negative /[HPF] [place] Comment on above: . Bilirubin Urine Negative Negative mg/dL [place], [place] Comment on above: . Color (U) Yellow Lt. Yellow NA [place], [place] Comment on above: . Glucose, Ur Normal Normal (<70) mg/dL [place], [place] Comment on above: . Interpretation and review of laboratory results Abnormal [place] Ketones Ql (U) 10 mg/dL Abnormal Negative [place], [place] Comment on above: . LEUKOCYTES, UA 250 Abnormal Negative [place]/uL [place], [place] Comment on above: . Mucous Threads Few Negative /[LPF] [place] Comment on above: . Nitrite, Urine Negative Negative NA [place], [place] Comment on above: . Occult Blood,Urine 0.06 mg/dL Abnormal Negative [place], [place] Comment on above: . pH (U) 5.5 [pH] [place] Comment on above: . Protein (U) [Mass/Vol] 20 mg/dL Abnormal Negative [place], [place] Comment on above: . RBC (U) [#/Vol] 3-5 Abnormal 0 - 2 /[HPF] [place], [place] Comment on above: . Specific [place], Urine 1.026 [place] Comment on above: . Squam Epithel, UA 0-2 3 - 5 /[HPF] [place], [place] Comment on above: . Urobilinogen, Urine Normal Normal (0-1) mg/dL [place], [place] Comment on above: . WBC, UA 6-10 Abnormal 0 - 5 /[HPF] [place], [place] Comment on above: . Test Performed by [facility], [address], [place], [place] [address] [place] Cervical Spine WO Contras ton 09-02-2019 Patient Name: SHOLA URBINA ND ---CT--- Exam Date/Time 09/02/2019 20:57:[address] Spine Cervical w/o Contrast Ordering Physician TYLER ANDERSON Accession Number [id number] CPT4 Codes 11748 () Reason For Exam fall Report CT [...] R Transcribed Date and Time: 09/02/2019 9:11 [facility] Incoming Radiology Results From [facility] [place] [facility] - 09/02/2019 9:11 PM EDT Patient Name: SHOLA MARTINEZ ---CT--- Exam Date/Time 09/02/2019 20:57:[address] Spine Cervical w/o Contrast Ordering Physician TYLER ANDERSON Accession Number [id number] CPT4 Codes 94383 () Reason For Exam fall Report CT [...] R Transcribed Date and Time: 09/02/2019 9:11 [place] Facial Bones WO Contrasto n 09-02-2019 Patient Name: SHOLA URBINA ND ---CT--- Exam Date/Time 09/02/2019 20:35:[address] Maxillofacial w/o Contrast Ordering Physician TYLER ANDERSON Accession Number [id number] CPT4 Codes 01848 () Reason For Exam fall Report MAXILLOFACIAL [...] R Transcribed Date and Time: 09/02/2019 9:16 [place] [facility] Incoming Radiology Results From [facility] - 09/02/2019 9:16 PM EDT Patient Name: SHOLA MARTINEZ ---CT--- Exam Date/Time 09/02/2019 20:35:[address] Maxillofacial w/o Contrast Ordering Physician TYLER ANDERSON Accession Number [id number] CPT4 Codes 99616 () Reason For Exam fall Report MAXILLOFACIAL [...] R Transcribed Date and Time: 09/02/2019 9:16 [place] CT Head WO Contraston 2019 Patient Name: SHOLA URBINA ND ---CT--- Exam Date/Time 09/02/2019 20:35:[address] Head or Brain w/o Contrast Ordering Physician TYLER ANDERSON Accession Number [id number] CPT4 Codes 71560 () Reason For Exam fall Report CT [...] nasal bone, not fully included in the [id number]-cr-[id number]. No calvarial fracture seen. There is a [...] bone fracture, not fully included in the [id number]-ca-ekpm. A dedicated CT of the facial bones was also performed, reported separately. Report Dictated on --- Final --- Dictating Physician: MD MULLIGAN JONATHAN R Signed Date and Time: 09/02/2019 9:06 pm Signed by: MD MULLIGAN JONATHAN R Transcribed Date and Time: 09/02/2019 9:07 [place] [facility], [facility] Results From [facility] [place] [facility] - 09/02/2019 9:07 PM EDT Patient Name: SHOLA MARTINEZ ---CT--- Exam Date/Time 09/02/2019 20:35:[address] Head or Brain w/o Contrast Ordering Physician TYLER ANDERSON Accession Number [id number] CPT4 Codes 12695 () Reason For Exam fall Report CT [...] nasal bone, not fully included in the ntben-kg-oxbz. No calvarial fracture seen. There is a [...] bone fracture, not fully included in the cwrrp-is-lfww. A dedicated CT of the facial bones was also performed, reported separately. Report Dictated on --- Final --- Dictating Physician: MD MULLIGAN JONATHAN R Signed Date and Time: 09/02/2019 9:06 pm Signed by: MD MULLIGAN JONATHAN R Transcribed Date and Time: 09/02/2019 9:07 [place], [place] CBCon 12-04-2018 Erythrocyte distribution width (RBC) [Ratio] 12.4 % 11.5 - 14.5 % [place] Hematocrit (Bld) [Volume fraction] 37.2 % Low 40 - 52 % [place] Hemoglobin (Bld) [Mass/Vol] 13.3 g/dL 13 - 18 g/dL [place] Interpretation and review of laboratory results Abnormal [place] MCH (RBC) [Entitic mass] 31.1 pg 26 - 34 pg [place] MCHC (RBC) [Mass/Vol] 35.8 % 32 - 36 % [place], [place] MCV (RBC) [Entitic vol] 86.9 fL 80 - 98 fL [place], [place] Platelet mean volume (Bld) [Entitic vol] 6.4 fL Low 7.4 - 10.4 fL [place] Platelets (Bld) [#/Vol] 135 10*3/uL Low 140 - 440 10*3/uL [place] RBC (Bld) [#/Vol] 4.28 10*6/uL Low 4.4 - 5.9 10*6/uL [place] WBC (Bld) [#/Vol] 5.2 10*3/uL 3.6 - 10.7 10*3/uL [place] Test Performed by [facility], [address], [place], [place] [address] [place] Comprehensive Metabolic Pane vineet 12-04-2018 Albumin [Mass/Vol] 3.6 g/dL 3.5 - 5 g/dL [place] ALP [Catalytic activity/Vol] 65 U/L 38 - 126 U/L [place] ALT [Catalytic activity/Vol] 37 U/L 13 - 69 U/L [place] Anion gap [Moles/Vol] 7 mmol/L [place], [place] AST [Catalytic activity/Vol] 44 U/L 15 - 46 U/L [place] Bilirubin Ql (U) 1.8 mg/dL High 0.2 - 1.3 mg/dL [place] Calcium [Mass/Vol] 8.6 mg/dL 8.4 - 10. 4 mg/dL [place] Chloride [Moles/Vol] 97 mmol/L Low 98 - 10 7 mmol/L [place] CO2 [Moles/Vol] 28 mmol/L 22 - 30 mmol/L [place] Creatinine [Mass/Vol] 0.72 mg/dL 0.52 - 1.25 mg/dL [place] EGFR IF NonAfrican [place] >60.0 >60 mL/min [place] Comment on above: Source- MDRD equatio n with creatinine calibration to IDMS(NKDEP) eGFR not recommended for drug dose adjustment GFR/1.73 sq M predicted among blacks MDRD (S/P/Bld) [Vol rate/Area] mL/min/{1.73_m2} >60 mL/min [place] Glucose [Mass/Vol] 155 mg/dL High 70 - 100 mg/dL [place] Interpretation and review of laboratory results Abnormal [place] Potassium [Moles/Vol] 4.1 mmol/L 3.5 - 5.1 mmol/L [place] Protein [Mass/Vol] 6.7 g/dL 6.3 - 8.2 g/dL [place] Sodium [Moles/Vol] 131 mmol/L Low 135 - 145 mmol/L [place] Urea nitrogen [Mass/Vol] 8 mg/dL 7 - 20 mg/dL [place] Test Performed by [facility], [address], [place], [place] [address] [place] POCT Glucoseon 12-04-2018 Glucose [Mass/Vol] 201 mg/dL High 70 - 100 mg/dL [place] Comment on above: Test performed by gl ucose meter. Results may be 10%-15% lower than serum/plasma values. (CLIA ID [id number]) Interpretation and review of laboratory results Abnormal [place] Test Performed by [facility], [address], [place], [place] [address] [place] Glucose [Mass/Vol] 167 mg/dL High 70 - 100 mg/dL [place] Comment on above: Test performed by ucose meter. Results may be 10%-15% lower than serum/plasma values. (CLIA ID [id number]) Interpretation and review of laboratory results Abnormal [place] Test Performed by [facility], [address], [place], [place] [address] [place] Basic Metabolic Panelon Anion gap [Moles/Vol] 7 mmol/L [place], [place] Calcium [Mass/Vol] 8.1 mg/dL Low 8.4 - 10. 4 mg/dL [place] Chloride [Moles/Vol] 97 mmol/L Low 98 - 10 7 mmol/L [place] CO2 [Moles/Vol] 26 mmol/L 22 - 30 mmol/L [place] Creatinine [Mass/Vol] 0.75 mg/dL 0.52 - 1.25 mg/dL [place] EGFR IF NonAfrican [place] >60.0 >60 mL/min [place], [place] Comment on above: Source- MDRD equatio n with creatinine calibration to IDMS(NKDEP) eGFR not recommended for drug dose adjustment GFR/1.73 sq M predicted among blacks MDRD (S/P/Bld) [Vol rate/Area] mL/min/{1.73_m2} >60 mL/min [place] Glucose [Mass/Vol] 156 mg/dL High 70 - 100 mg/dL [place], [place] Potassium [Moles/Vol] 4.0 mmol/L 3.5 - 5.1 mmol/L [place] Sodium [Moles/Vol] 130 mmol/L Low 135 - 145 mmol/L [place], [place] Urea nitrogen [Mass/Vol] 9 mg/dL 7 - 20 mg/dL [place], [place] CBCon 12-03-2018 Erythrocyte distribution width (RBC) [Ratio] 12.4 % 11.5 - 14.5 % [place] Hematocrit (Bld) [Volume fraction] 36.2 % Low 40 - 52 % [place] Hemoglobin (Bld) [Mass/Vol] 12.9 g/dL Low 13 - 18 g/dL [place], [place] MCH (RBC) [Entitic mass] 31.4 pg 26 - 34 pg [place] MCHC (RBC) [Mass/Vol] 35.6 % 32 - 36 % [place], [place] MCV (RBC) [Entitic vol] 88.3 fL 80 - 98 fL [place], [place] Platelet mean volume (Bld) [Entitic vol] 6.9 fL Low 7.4 - 10.4 fL [place], [place] Platelets (Bld) [#/Vol] 112 10*3/uL Low 140 - 440 10*3/uL [place], [place] RBC (Bld) [#/Vol] 4.10 10*6/uL Low 4.4 - 5.9 10*6/uL [place] WBC (Bld) [#/Vol] 5.7 10*3/uL 3.6 - 10.7 10*3/uL [place] Gastrointestinal Panel by MARIE Cazares 12-03-2018 Gastrointestinal PCR Panel NEGATIVE: No targets were detected by the [employer] Gastrointestinal PCR Panel. The [employer] Gastrointestinal PCR [...] the assay can be ordered separately with [facility] ([id number]). [place] Test Performed by [facility], [address] [place] [id number] Specimen Source Comment:Stool [place], [place] Otheron 12-03-2018 Interpretation and review of laboratory results Abnormal [facility] Test Performed by [facility], [address] [place], [place] [address] [email or web address] [place] POCT Glucoseon 12-03-2018 Glucose [Mass/Vol] 225 mg/dL High 70 - 100 mg/dL [facility]- [place] Comment on above: Test performed by gl ucose meter. Results may be 10%-15% lower than serum/plasma values. (CLIA ID [id number]) Interpretation and review of laboratory results Abnormal [place] Test Performed by [facility], [address] [place], [place] [address] [place], [place] [address]- [place], [place] Glucose [Mass/Vol] 189 mg/dL High 70 - 100 mg/dL [email or web address] Comment on above: Test performed by gl ucose meter. Results may be 10%-15% lower than serum/plasma values. (CLIA ID [id number]) Interpretation and review of laboratory results Abnormal [place] Test Performed by [facility], [address] [place], [place] [address] [place] [address] [email or web address]- [place], [place] Glucose [Mass/Vol] 198 mg/dL High 70 - 100 mg/dL [facility] [email or web address]- [place], [place] Comment on above: Test performed by gl ucose meter. Results may be 10%-15% lower than serum/plasma values. (CLIA ID [id number]) Interpretation and review of laboratory results Abnormal [place] Test Performed by [facility], [address] [place], [place] [address] [facility] [email or web address]- [place], [place] Glucose [Mass/Vol] 162 mg/dL High 70 - 100 mg/dL [facility] [place], [place] Comment on above: Test performed by gl ucose meter. Results may be 10%-15% lower than serum/plasma values. (CLIA ID [id number]) Interpretation and review of laboratory results Abnormal [place] Test Performed by [facility], [address] [place] [address] [facility] [place], [place] Basic Metabolic Panelon Anion gap [Moles/Vol] 7 mmol/L [place], [place] Calcium [Mass/Vol] 7.9 mg/dL Low 8.4 - 10. 4 mg/dL [place] Chloride [Moles/Vol] 96 mmol/L Low 98 - 10 7 mmol/L [place] CO2 [Moles/Vol] 27 mmol/L 22 - 30 mmol/L [place] Creatinine [Mass/Vol] 0.76 mg/dL 0.52 - 1.25 mg/dL [place] EGFR IF NonAfrican [place] >60.0 >60 mL/min [place] Comment on above: Source- MDRD equatio n with creatinine calibration to IDMS(NKDEP) eGFR not recommended for drug dose adjustment GFR/1.73 sq M predicted among blacks MDRD (S/P/Bld) [Vol rate/Area] mL/min/{1.73_m2} >60 mL/min [place] Potassium [Moles/Vol] 3.8 mmol/L 3.5 - 5.1 mmol/L [place] Sodium [Moles/Vol] 129 mmol/L Low 135 - 145 mmol/L [place] Urea nitrogen [Mass/Vol] 9 mg/dL 7 - 20 mg/dL [place] EKG 12 Lead - Chest Painon 0 12-02-2018 [facility] [email or web address] 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1950 Requested By: ALEJANDRO Order Number: [id number] Piotr MD: Omkar [place] Measurements Intervals [place] Rate: 85 P: 65 [place]: 180 QRS: 6 QRSD: 118 T: 8 QT: 364 QTc: 433 Interpretive Statements SINUS RHYTHM NONSPECIFIC INTRAVENTRICULAR CONDUCTION DELAY BASELINE WANDER IN LEAD(S) V2 Compared to ECG 06/27/2018 04:20:14 No significant changes Electronically Signed On 12-02-2018 10:07:44 EDT by Omkar [place] Mark, [facility] Incoming Cardiology Results From [facility] - 12/02/2018 10:08 AM EDT [facility] Test Date: 2018-11-30 Pat Name: Shola Martinez Department: [facility] Room: 454 Gender: M 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 Results may be 10%-15% lower than serum/plasma values. (CLIA ID [id number]) Otheron 12-02-2018 Interpretation and review of laboratory results Abnormal [facility] Test Performed by [facility], [address] [place], [place] [address] [facility] POCT Glucoseon 12-02-2018 Glucose [Mass/Vol] 161 mg/dL High 70 - 100 mg/dL [facility] Comment on above: Test performed by Park[employer] ucose meter. Results may be 10%-15% lower than serum/plasma values. (CLIA ID [id number]) Interpretation and review of laboratory results Abnormal [facility] Test Performed by [facility], [address], [place], [place] [address] [facility] Glucose [Mass/Vol] 169 mg/dL High 70 - 100 mg/dL [facility] Comment on above: Test performed by gl ucose meter. Results may be 10%-15% lower than serum/plasma values. (CLIA ID [id number]) Interpretation and review of laboratory results Abnormal [employer] [employer], [employer] Test Performed by [facility], [address], [place], [place] [address] [facility] Glucose [Mass/Vol] 156 mg/dL High 70 - 100 mg/dL [place] Comment on above: Test performed by ucose meter. Results may be 10%-15% lower than serum/plasma values. (CLIA ID [id number]) Interpretation and review of laboratory results Abnormal [place] Test Performed by [facility], [address], [place], [place] [address] [place] Basic Metabolic Panel w/ Ref steve to MGon 12-01-2018 Anion gap [Moles/Vol] 7 mmol/L [place], [place] Calcium [Mass/Vol] 8.1 mg/dL Low 8.4 - 10. 4 mg/dL [place] Chloride [Moles/Vol] 97 mmol/L Low 98 - 10 7 mmol/L [place] CO2 [Moles/Vol] 24 mmol/L 22 - 30 mmol/L [place] Creatinine [Mass/Vol] 0.82 mg/dL 0.52 - 1.25 mg/dL [place] EGFR IF NonAfrican [place] >60.0 >60 mL/min [place] Comment on above: Source- MDRD equatio n with creatinine calibration to IDMS(NKDEP) eGFR not recommended for drug dose adjustment GFR/1.73 sq M predicted among blacks MDRD (S/P/Bld) [Vol rate/Area] mL/min/{1.73_m2} >60 mL/min [place] Glucose [Mass/Vol] 189 mg/dL High 70 - 100 mg/dL [place] Interpretation and review of laboratory results Abnormal [place] Potassium [Moles/Vol] 4.1 mmol/L 3.5 - 5.1 mmol/L [place] Sodium [Moles/Vol] 128 mmol/L Low 135 - 145 mmol/L [place] Urea nitrogen [Mass/Vol] 9 mg/dL 7 - 20 mg/dL [place] Test Performed by [facility] [email or web address] [facility], [address], [place], [place] [address] [place] CBC auto differentialon 09-0 Absolute Baso # 0.0 10*3/uL 0 - 0.2 10*3/uL [place] Absolute Neut # 5.2 10*3/uL 1.8 - 7 10*3/uL [place] Basophils/100 WBC (Bld) 0.2 % 0 - 2 % [place] Eosinophils (Bld) [#/Vol] 0.0 10*3/uL 0 - 0.5 10*3/uL [place] Eosinophils/100 WBC (Bld) 0.1 % Low 1 - 6 % [place] Erythrocyte distribution width (RBC) [Ratio] 12.5 % 11.5 - 14.5 % [place] Granulocytes/100 WBC (Bld) 80.6 % High 40 - 80 % [place] Hematocrit (Bld) [Volume fraction] 37.2 % Low 40 - 52 % [place] Hemoglobin (Bld) [Mass/Vol] 12.7 g/dL Low 13 - 18 g/dL [place] Interpretation and review of laboratory results Abnormal [place] Lymphocytes (Bld) [#/Vol] 0.7 10*3/uL Low 1 - 4.3 10*3/uL [place] Lymphocytes/100 WBC (Bld) 11.0 % Low 20 - 40 % [place] MCH (RBC) [Entitic mass] 31.1 pg 26 - 34 pg [place] MCHC (RBC) [Mass/Vol] 34.3 % 32 - 36 % [place] MCV (RBC) [Entitic vol] 90.8 fL 80 - 98 fL [place], [place] Monocytes (Bld) [#/Vol] 0.5 10*3/uL 0 - 0.8 10*3/uL [place] Monocytes/100 WBC (Bld) 8.1 % 2 - 10 % [place] Platelet mean volume (Bld) [Entitic vol] 7.5 fL 7.4 - 10.4 fL [place] Platelets (Bld) [#/Vol] 96 10*3/uL Low 140 - 440 10*3/uL [place] RBC (Bld) [#/Vol] 4.10 10*6/uL Low 4.4 - 5.9 10*6/uL [place] WBC (Bld) [#/Vol] 6.5 10*3/uL 3.6 - 10.7 10*3/uL [place] Test Performed by [facility], [address] [place] [address] [place] Hemoglobin A1Con 12-01-2018 eAG 174 mg/dL [place] HbA1c (Bld) [Mass fraction] 7.7 % High 4 - 5.7 % [place] Comment on above: --HgbA1C levels may not be accurate in patients who have renal disease, received recent blood transfusions, are anemic, or who have dyshemoglobinemia. Interpretation and review of laboratory results Abnormal [place] Test Performed by [facility], [address] ADAR[place], [place] [id number] [place] [address] LEGIONELLA ANTIGEN, URINEon 12-01-2018 LEGIONELLA ANTIGEN Legionella antigen N OT DETECTED. [place] Lactic Acid, Plasmaon 2018 Lactate [Moles/Vol] 1.6 mmol/L 0.7 - 2 mmol/L [place] Test Performed by [facility], [address] [place], [place] [address] [place] Otheron 12-01-2018 Test Performed by [facility], [address] [place] [address] Specimen Source Comment:Urine, clean catch [place] POCT Glucoseon 12-01-2018 Glucose [Mass/Vol] 160 mg/dL High 70 - 100 mg/dL [place] Comment on above: Test performed by ucose meter. Results may be 10%-15% lower than serum/plasma values. (CLIA ID [id number]) Interpretation and review of laboratory results Abnormal [place] Test Performed by [facility], [address] [place], [place] [address] [place] Glucose [Mass/Vol] 231 mg/dL High 70 - 100 mg/dL [place] Comment on above: Test performed by gl ucose meter. Results may be 10%-15% lower than serum/plasma values. (CLIA ID [id number]) Interpretation and review of laboratory results Abnormal [place] Test Performed by [facility], [address], [place], [place] [address] [place] Glucose [Mass/Vol] 220 mg/dL High 70 - 100 mg/dL [place] Comment on above: Test performed by gl ucose meter. Results may be 10%-15% lower than serum/plasma values. (CLIA ID [id number]) Interpretation and review of laboratory results Abnormal [place] Test Performed by [facility], [address], [place], [place] [address] [place] PROCALCITONINon 12-01-2018 Procalcitonin <0.10 <0.10 ng/mL [place] Sodium [Moles/Vol] See Below [place], [place] Comment on above: PCT <0.50 = Low risk of severe sepsis and/or septic shock. PCT >2.00 = High risk of severe sepsis and/or septic shock. Test Performed by [facility], [facility] [place] [address] [place] Respiratory Virus PCR Panelo n 12-01-2018 [...] pertussis Bordetella parapertussis Chlamydia pneumoniae Mycoplasma pneumoniae [place] Test Performed by [facility], [address] [place] [address] Specimen Source Comment:Nasopharyngeal [place] SODIUMon 12-01-2018 Interpretation and review of laboratory results Abnormal [place] Sodium [Moles/Vol] 128 mmol/L Low 135 - 145 mmol/L [place] Test Performed by [facility], [address], [place], [place] [address] [place] STREP PNEUMONIAE ANTIGENon 0 12-01-2018 STREP PNEUMONIAE ANTIGEN, URINE Strep pneumo antigen NOT DETECTED. [place] Add On Lab Teston 11-30-2018 Sodium [Moles/Vol] Rejected [place] Sodium [Moles/Vol] Accepted [place] Comment on above: Specimen available & acceptable for analysis. Test Performed by [facility], [address], [place], [place] [address] added to [id number] [place] Basic Metabolic Panelon 11-02 Anion gap [Moles/Vol] 9 mmol/L [place] Calcium [Mass/Vol] 8.9 mg/dL 8.4 - 10. 4 mg/dL [place] Chloride [Moles/Vol] 100 mmol/L 98 - 10 7 mmol/L [place] CO2 [Moles/Vol] 24 mmol/L 22 - 30 mmol/L [place] Creatinine [Mass/Vol] 0.89 mg/dL 0.52 - 1.25 mg/dL [place] EGFR IF NonAfrican [place]an >60.0 >60 mL/min [place] Comment on above: Source- MDRD equatio n with creatinine calibration to IDMS(NKDEP) eGFR not recommended for drug dose adjustment GFR/1.73 sq M predicted among blacks MDRD (S/P/Bld) [Vol rate/Area] mL/min/{1.73_m2} >60 mL/min [place] Glucose [Mass/Vol] 176 mg/dL High 70 - 100 mg/dL [place] Potassium [Moles/Vol] 4.1 mmol/L 3.5 - 5.1 mmol/L [place] Sodium [Moles/Vol] 133 mmol/L Low 135 - 145 mmol/L [place] Urea nitrogen [Mass/Vol] 8 mg/dL 7 - 20 mg/dL [place] Brain Natriuretic Peptideon 11-30-2018 Interpretation and review of laboratory results Abnormal [place] Natriuretic peptide B (Bld) [Mass/Vol] 178 pg/mL High 0 - 125 pg/mL [place] Hemogram (CBC) w/Auto Diffon 11-30-2018 Absolute Baso # 0.0 10*3/uL 0 - 0.2 10*3/uL [place] Absolute Neut # 5.5 10*3/uL 1.8 - 7 10*3/uL [place] Basophils/100 WBC (Bld) 0.3 % 0 - 2 % [place] Eosinophils (Bld) [#/Vol] 0.0 10*3/uL 0 - 0.5 10*3/uL [place] Eosinophils/100 WBC (Bld) 0.5 % Low 1 - 6 % [place] Erythrocyte distribution width (RBC) [Ratio] 12.4 % 11.5 - 14.5 % [place] Granulocytes/100 WBC (Bld) 80.0 % 40 - 80 % [place] Hematocrit (Bld) [Volume fraction] 42.0 % 40 - 52 % [place] Hemoglobin (Bld) [Mass/Vol] 14.5 g/dL 13 - 18 g/dL [place] Interpretation and review of laboratory results Abnormal [place] Lymphocytes (Bld) [#/Vol] 0.8 10*3/uL Low 1 - 4.3 10*3/uL [place] Lymphocytes/100 WBC (Bld) 12.4 % Low 20 - 40 % [place] MCH (RBC) [Entitic mass] 30.5 pg 26 - 34 pg [place] MCHC (RBC) [Mass/Vol] 34.5 % 32 - 36 % [place] MCV (RBC) [Entitic vol] 88.6 fL 80 - 98 fL [place] Monocytes (Bld) [#/Vol] 0.5 10*3/uL 0 - 0.8 10*3/uL [place] Monocytes/100 WBC (Bld) 6.8 % 2 - 10 % [place] Platelet mean volume (Bld) [Entitic vol] 7.5 fL 7.4 - 10.4 fL [place] Platelets (Bld) [#/Vol] 103 10*3/uL Low 140 - 440 10*3/uL [place] RBC (Bld) [#/Vol] 4.74 10*6/uL 4.4 - 5.9 10*6/uL [place] WBC (Bld) [#/Vol] 6.8 10*3/uL 3.6 - 10.7 10*3/uL [place] Test Performed by [facility], [address] [place] [place], [place] [address] [place] [address] Hepatic Function Panelon Albumin [Mass/Vol] 3.9 g/dL 3.5 - 5 g/dL [place] ALP [Catalytic activity/Vol] 67 U/L 38 - 126 U/L [place] ALT [Catalytic activity/Vol] 43 U/L 13 - 69 U/L [place] AST [Catalytic activity/Vol] 42 U/L 15 - 46 U/L [place] Bilirubin Ql (U) 2.3 mg/dL High 0.2 - 1.3 mg/dL [place] Bilirubin.direct [Mass/Vol] 0.0 mg/dL 0 - 0.3 mg/dL [place] Protein [Mass/Vol] 6.8 g/dL 6.3 - 8.2 g/dL [place] Lactic Acid, Plasmaon 2018 Lactate [Moles/Vol] 1.9 mmol/L 0.7 - 2 mmol/L [place] Test Performed by [facility], [address] [place], [place] [address] [place] Interpretation and review of laboratory results Abnormal [place] Lactate [Moles/Vol] 2.6 mmol/L Critically high 0.7 - 2 mmol/L [place] Interpretation and review of laboratory results Abnormal [place] Lactate [Moles/Vol] 2.9 mmol/L Critically high 0.7 - 2 mmol/L [place] Test Performed by [facility], [address] [place], [place] [address] [place] [address] Lipaseon 11-30-2018 Lipase [Catalytic activity/Vol] 41 U/L 23 - 300 U/L [place] Test Performed by [facility], [address], [place], [place] [address] [place] [address] Otheron 11-30-2018 Test Performed by [facility], [address], [place] Test Performed by [facility], [address], [place] Interpretation and review of laboratory results Abnormal [place] Test Performed by [facility], [address] Troponin x1on 11-30-2018 Troponin I.cardiac [Mass/Vol] ng/mL 0 - 0.034 ng/mL [place] Comment on above: < 0.034 = negative 0.034 0.120 = indeterminate > 0.120 = positive Urinalysison 11-30-2018 Appearance (U) Clear [place], [place] Comment on above: Reference Range: Andrea ar Bilirubin Urine Negative mg/dL [place] Comment on above: Reference Range: Neg ative Color (U) Yellow [place] Comment on above: Reference Range: Lt. Yellow Glucose, Ur 50 mg/dL [place] Comment on above: Reference Range: Nor mal (<70) Ketones Ql (U) Negative mg/dL [place] Comment on above: Reference Range: Neg ative LEUKOCYTES, UA Negative [place]/uL [place] Comment on above: Reference Range: Neg ative Mucous Threads Few /[LPF] [place] Comment on above: Reference Range: Neg ative Nitrite, Urine Negative [place] Comment on above: Reference Range: Neg ative Occult Blood,Urine 0.03 mg/dL [place] Comment on above: Reference Range: Neg ative pH (U) 5.5 [pH] [place] Protein (U) [Mass/Vol] Negative mg/dL [place] Comment on above: Reference Range: Neg ative RBC (U) [#/Vol] 0-2 /[HPF] [place] Comment on above: Reference Range: 0-2 Specific [place], Urine 1.021 [place] Squam Epithel, UA 0-2 /[HPF] [place] Comment on above: Reference Range: 3-5 Urobilinogen, Urine 2 mg/dL [place] Comment on above: Reference Range: Nor mal (0-1) WBC, UA 0-2 /[HPF] [place] Comment on above: Reference Range: 0-5 Test Performed by [facility], [address] [place], [place], [place] [address] [place] [address] XR Acute Abd Series Chest 1 VWon 11-30-2018 Patient Name: SHOLA URBINA ND ---Diagnostic Radiology--- Exam Date/Time 11/30/2018 19:02:17 EDT Exam CR Abdomen Series w/ Chest 1 View Ordering Physician DO HARDIN GEORGE E Accession Number [id number] CPT4 Codes 38239 () Reason For Exam abdominal pain Report [...] DIANE Transcribed Date and Time: 11/30/2018 7:32 [place], [place], [facility] Incoming Radiology Results From [facility] [place] [facility] - 11/30/2018 7:32 PM EDT Patient Name: SHOLA MARTINEZ ---Diagnostic Radiology--- Exam Date/Time 11/30/2018 19:02:17 EDT Exam CR Abdomen Series w/ Chest 1 View Ordering Physician DO HARDIN GEORGE E Accession Number [id number] CPT4 Codes 16323 () Reason For Exam abdominal pain Report [...] DIANE Transcribed Date and Time: 11/30/2018 7:32 [facility], [employer] XR CHEST PORTABLEon 12-01-19 Mark, [facility] Incoming Radiology Results From [facility] [place] [facility] - 11/30/2018 11:45 AM EDT Patient Name: SHOLA MARTINEZ ---Diagnostic Radiology--- Exam Date/Time 11/30/2018 11:10:00 EDT Exam CR Chest Portable Ordering Physician ZULEMA MUKHERJEE BETH A. Accession Number [id number] CPT4 Codes 55645 () Reason For Exam possible aspiration pne. [...] L Transcribed Date and Time: 11/30/2018 11:45 [place] Patient Name: SHOLA URBINA [place] ---Diagnostic Radiology--- Exam Date/Time 11/30/2018 11:10:00 EDT Exam CR Chest Portable Ordering Physician ZULEMA MUKHERJEE BETH A. Accession Number [id number] CPT4 Codes 28659 () Reason For Exam possible aspiration pne. [...] L Transcribed Date and Time: 11/30/2018 11:45 [place] Glucose,Bedsideon 08-27-2018 Glucose mass conc 142 mg/dL High 70-100 [facility] Comment on above: Result Comment: Test performed by glucose meter. Results may be 10%-15% lower than serum/plasma values. (CLIA ID [id number]) Performed By: #### B GLU #### [facility] [address] [place] [address] Glucose mass conc 170 mg/dL High 70-100 [facility] Comment on above: Result Comment: Test performed by glucose meter. Results may be 10%-15% lower than serum/plasma values. (CLIA ID [id number]) Performed By: #### B GLU #### [facility] [address] [place] [address] Op Noteon 08-27-2018 Op Note [facility] Dictation: Topical Anesthesia Note Patient Name: Shola Martinez : 1950 Date of Procedure: 08/27/2018 Surgeon: Judy Reyes M.D. Clinical Documentation Specialist: Anesthesia: general Preop Dx: Mature Cataract left [...] created using a cystotome and utrata forceps. [place]-dissection and hydro-delineation were then performed.Phacoemulsificat ion was [...] in pain or any other concerns. Normal [facility] Glucose,Bedsideon 07-30-2018 Glucose mass conc 145 mg/dL High 70-100 [facility] Comment on above: Result Comment: Test performed by glucose meter. Results may be 10%-15% lower than serum/plasma values. (CLIA ID [id number]) Performed By: #### B GLU #### [address] [address] Op Noteon 07-30-2018 Op Note [facility] Dictation: Topical Anesthesia Note Patient Name: Shola Martinez : 1950 Date of Procedure: 07/30/2018 Surgeon: Judy Reyes M.D. Clinical Documentation Specialist: Anesthesia: Monitored Anesthesia Care with Topical Anesthesia [...] created using a cystotome and utrata forceps. [place]-dissection and hydro-delineation were then performed. Phacoemulsification was [...] in pain or any other concerns. Normal [facility] Prealbuminon 09-26-2017 Prealbumin mass conc 23 mg/dL Normal 23-42 [facility] Comment on above: Performed By: #### U FMIC ####[address] [phone] Comp Metabolic Panelon 09-25 Albumin mass conc 3.8 g/dL Normal 3.4-4.8 [facility] Comment on above: Performed By: #### C MP ####[address] [phone] ALP enzyme act/vol 59 U/L Normal 40-129 [facility] Comment on above: Performed By: #### C MP ####[address] [phone] ALT enzyme act/vol 27 U/L Normal 0-41 [facility] Comment on above: Performed By: #### C MP ####[address] [phone] AST enzyme act/vol 33 U/L Normal 0-37 [facility] Comment on above: Performed By: #### C MP ####[address] [phone] Bili,Total 1.1 mg/dl High 0.0-1.0 [facility] Comment on above: Result Comment: Faisal ature : 1 Day 1.0-6.0 mg/dl 2 Day 6.0-8.0 mg/dl 3-5 Day 10.0-15.0 mg/dl Performed By: #### C MP ####[address] [phone] Calcium mass conc 8.9 mg/dL Normal 7.6-11.0 [facility] Comment on above: Performed By: #### C MP ####[address] [phone] Chloride molar conc 100 mmol/L Normal 96-108 [facility] Comment on above: Performed By: #### C MP ####[address] [phone] CO2 molar conc 25.1 mmol/L Normal 22.0-29.0 [facility] Comment on above: Performed By: #### C MP ####[address] [phone] Creatinine mass conc 0.94 mg/dL Normal 0.70-1.20 [facility] Comment on above: Result Comment: Faisal ature 0.3-1.0 mg/dL Performed By: #### C MP ####[address] [phone] Glucose mass conc 124 mg/dL High 70-99 [facility] Comment on above: Result Comment: Lavonne gardner for Diagnosis of Diabetes(Effective 09/05/10):Fasting specimen (no caloric intake for at least 8 hours). <100 mg/dl Normal 100-125 mg/dl Increased Risk for Diabetes >125 mg/dl Diagnostic for DiabetesRandom Glucose (any time of day without regard to last meal). >=200 mg/dl plus Classic Symptoms of Diabetes Performed By: #### C MP ####[address] [phone] Potassium molar conc 3.6 mmol/L Normal 3.3-5.1 [facility] Comment on above: Performed By: #### C MP ####[address] [phone] Protein mass conc 6.6 g/dL Normal 5.9-8.4 [facility] Comment on above: Performed By: #### C MP ####[address] [phone] Sodium molar conc 136 mmol/L Normal 133-145 [facility] Comment on above: Performed By: #### C MP ####[address] [phone] Urea nitrogen mass conc 13 mg/dL Normal 4-19 A [facility] Comment on above: Performed By: #### C MP ####[address] [phone] Complete Blood Counton 09-25 Differential Complete Manual Normal [facility] Comment on above: Performed By: #### C BC ####[address] [phone] Erythrocyte distribution width Auto Ratio (RBC) 12.4 % Normal 0.0-14.4 [facility] Comment on above: Performed By: #### C BC ####[address] [phone] Hematocrit Auto Volume Fraction (Bld) 41.5 % Normal 41.0-50.0 [facility] Comment on above: Performed By: #### C BC ####[address] [phone] Hemoglobin mass conc (Bld) 14.1 g/dL Normal 13.5-16.5 [facility] Comment on above: Performed By: #### C BC ####[address] [phone] Immature granulocytes/100 WBC (Bld) 0.40 % Normal [facility] Comment on above: Result Comment: Brittny ture Granulocyte Percent includes promyelocytes, myelocytes,and metamyelocytes. IG% > 1.0 indicates a left shift ispresent. With automated differentials, bands are includedin the neutrophil count and not in the Immature GranulocytePercent. Performed By: #### C BC ####[address] [phone] MCH Auto Entitic mass (RBC) 29.8 pg Normal 26.0-34.0 [facility] Comment on above: Performed By: #### C BC ####[address] [phone] MCHC Auto mass conc (RBC) 34.0 % Normal 31.0-37.0 [facility] Comment on above: Performed By: #### C BC ####[address] [phone] MCV Auto Entitic volume (RBC) 87.7 fL Normal 80.0-100.0 [facility] Comment on above: Performed By: #### C BC ####[address] [phone] Nucleated RBC/100 WBC Ratio (Bld) 0.0 % Normal -1.0-0.0 [facility] Comment on above: Performed By: #### C BC ####[address] [phone] Platelet mean volume Auto Entitic volume (Bld) 9.1 fL Normal [facility] Comment on above: Result Comment: MPV is plateletrange and agedependent Performed By: #### C BC ####[address] [phone] Platelets Auto #/vol (Bld) 118 10*3/uL Low 150-450 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 [...] to be [facility] with assistance of a friend. His wounds were dressed insantyl/bacitracin/cutice rin gauze with roller gauze and flexinet to secure. Karend an appointment made in the [facility] for [...] use illicit drugs, drive a vehicle, operate heavyMobileSpaces, ride a bicycle, go to work or school,or play contact sports whiletaking your prescribed narcotic pain medication. As directed Patient Instructions As directed Comments: Follow up [facility] on September 28 at 1:00pm. HomeHealth Care provided by [facility] [employer] [phone]. They should be callingyou to set up a dressing change schedule. Shower daily and wash wound with soapand water. Apply santyl directly to open wound, then cover with bacitracin oncuticerin gauze, secure with roller gauze and flexinet. Please be advised thatno opioid prescriptions are able to be called in to a pharmacy. Patients mustbe seen during [...] directed Regular diet for age As directedSigned:KALEY Grande-C62:51 PM Normal [facility] Glucose by Meteron 8 Glucose mass conc 134 mg/dL High 60-110 [facility] Comment on above: Result Comment: Beds diane glucose is a screening procedure. The bedside glucosestrip is calibrated to deliver plasma glucose levels. Glucosemeter values <45 mg/dl and >450 mg/dl must be confirmed with aplasma or whole blood glucose performed in the lab. Wholeblood glucose results are 10-15% lower than plasma glucoseresults. Performed By: #### G LUM ####[address] [phone] Glucose mass conc 142 mg/dL High 60-110 [facility] Comment on above: Result Comment: [facility] diane glucose is a screening procedure. The bedside glucosestrip is calibrated to deliver plasma glucose levels. Glucosemeter values <45 mg/dl and >450 mg/dl must be confirmed with aplasma or whole blood glucose performed in the lab. Wholeblood glucose results are 10-15% lower than plasma glucoseresults. Performed By: #### G LUM ####[address] [phone] Glucose mass conc 144 mg/dL High 60-110 [facility] Comment on above: Result Comment: [facility] diane glucose is a screening procedure. The bedside glucosestrip is calibrated to deliver plasma glucose levels. Glucosemeter values <45 mg/dl and >450 mg/dl must be confirmed with aplasma or whole blood glucose performed in the lab. Wholeblood glucose results are 10-15% lower than plasma glucoseresults. 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 Authentication Interface Message Text HISTORY AND PHYSICALDATE [...] Take 25 mg by mouth daily 09/24/2017 [id number] tamsulosin (FLOMAX) 0.4 MG capusle Take 0.4 mg by mouth daily 09/24/2017 [id number] Linagliptin (TRADJENTA) 5 MG TABS Take 5 [...] regular rate and rhythm, normal S1 and V8Wcofwhnverf: breath sounds clearAbdomen: abdomen is soft, nontender, [...] prophy 9)Endo: SSI10)KRISTOFER: PT/OT11)T/L/D: Peripheral IV12)Wounds: bacitracin/cuticerinConsul tants:SudhaRaghavendra Chris Perez MD 09/25/2017 12:35 AMThis patient [...] was discussed duringthis visit.Kelvin Almanzar MD09/25/2017 Normal [facility] Manual Differentialon 2017 Absolute Neutrophil No. 4.7 Normal A [facility] Comment on above: Performed By: #### M DIFF ####[address] [phone] Atypical Lymphocytes 11 % High 0-8 [facility] Comment on above: Performed By: #### M DIFF ####[address] [phone] Band Neutrophils 7 % Normal 5-11 [facility] Comment on above: Performed By: #### M DIFF ####[address] [phone] Cell Morphology Normal Normal [facility] Comment on above: Performed By: #### M DIFF ####[address] [phone] Eosinophils 1 % Normal 0-3 [facility] Comment on above: Performed By: #### M DIFF ####[facility] of [address] [phone] Lymphocytes 24 % Normal 24-44 [facility] Comment on above: Performed By: #### M DIFF ####[facility] of [address] [phone] Metamyelocytes 0 % Normal 0-0 [facility] Comment on above: Performed By: #### M DIFF ####[facility] of [address] [phone] Monocytes 2 % Low 3-6 [facility] Comment on above: Performed By: #### M DIFF ####[address] [phone] Myelocytes 0 % Normal 0-0 [facility] Comment on above: Performed By: #### M DIFF ####[facility] of [address] [phone] Promyelocytes 0 % Normal 0-0 [facility] Comment on above: Performed By: #### M DIFF ####[facility] of [address] [phone] Segmented Neutrophils 55 % Normal 35-66 [facility] Comment on above: Performed By: #### M DIFF ####[facility] of [address] [phone] Urinalysis,Automatedon 09-25 Epithelial cells.squamous LM.HPF #/area (Urine sed) 1 /uL Normal 0-20 [facility] Comment on above: Performed By: #### U FMIC ####[address] [phone] INR Coag RelTime (Bld) 1.0 /uL Normal 0.0-20.0 [facility] Comment on above: Performed By: #### U FMIC ####[address] [phone] Mucous Small Normal [facility] Comment on above: Performed By: #### U FMIC ####[facility] of [address] [phone] WBC 2.0 /uL Normal 0.0-20.0 [facility] Comment on above: Performed By: #### U FMIC ####[address] [phone] Urinalysis,Completeon 2017 Volume 12 ml Normal 12 [facility] Comment on above: Performed By: #### U ACOM ####[address] [phone] Bilirubin,urine Negative Normal Negative [facility] Comment on above: Performed By: #### U ACOM ####[facility] of [address] [phone] Character Clear Normal [facility] Comment on above: Performed By: #### U ACOM ####[facility] of [address] [phone] Color Straw Normal [facility] Comment on above: Performed By: #### U ACOM ####[facility] of [address] [phone] Glucose Ql (U) Negative Normal Negative [facility] Comment on above: Performed By: #### U ACOM ####[facility] of [address] [phone] Hemoglobin Negative Normal Negative [facility] Comment on above: Performed By: #### U ACOM ####[address] [phone] Ketones Negative Normal Negative [facility] Comment on above: Performed By: #### U ACOM ####[facility] of [address] [phone] Leukocyte Esterase Negative Normal Negative [facility] Comment on above: Performed By: #### U ACOM ####[facility] of [address] [phone] Nitrites Negative Normal Negative [facility] Comment on above: Performed By: #### U ACOM ####[facility] of [address] [phone] pH Test strip (U) 5.0 Normal 5.0-8.0 [facility] Comment on above: Performed By: #### U ACOM ####[facility] of [address] [phone] Protein mass conc Negative Normal Neg.-Trace [facility] Comment on above: Performed By: #### U ACOM ####[facility] of [place]ar Escal[place] [phone] Specific gravity 1.010 Normal 1.005-1.03 0 [facility] Comment on above: Performed By: #### U ACOM ####[facility] of [place]igar Escal[place] [phone] Urobilinogen 0.2 mg/dl Normal Negative [facility] Comment on above: Performed By: #### U ACOM ####[facility] of Flniranjan Lylinda [place], [place] [phone] Otheron 06-16-2011 CONVERTED CLINICAL HISTORY OPERATIVE PROCEDURE: I&D left foot ulcer, revision amputation left 1st Ray, possible application wound vac CLINICAL INFORMATION: Left foot ulcer, 1st metatarsal osteomyelitis [facility] CONVERTED ELECTRONIC SIGNATURE KAREN LEMUS M.D. (Electronic signature on file) Final Signed Out: 06/16/2011 15:58 [facility] CONVERTED FINAL DIAGNOSIS FINAL DIAGNOSIS: A) EXCISION OF LEFT FOOT TISSUE - SKIN AND SUBCUTANEOUS TISSUES WITH ULCERATION, ACUTE INFLAMMATION, AND ABSCESS FORMATION. B) BONE OF LEFT FOOT - ACUTE OSTEOMYELITIS. SPECIMEN: (A) FOOT (B) FOOT [facility] CONVERTED GROSS DESCRIPTION GROSS DESCRIPTION: A. left foot tissue Container labeled left foot. Received are portions of pelaez skin with attached soft tissue measuring 7 x 2 x 2 cm. On the surface is an ulcer measuring 1.5 cm in diameter. On cut section, the underlying soft tissue demonstrates diffuse areas of hemorrhage. [employer] sample submitted in two cassettes labeled A. B. left foot bone Container labeled bone, left foot. Received is a segment of pelaez-pink bone measuring 3 x 3 x 2 cm. [employer] Manager sample submitted in two cassettes labeled B following decal. SMS:m MICROSCOPIC DESCRIPTION: Slides reviewed. EAC/gpl [facility] CONVERTED ORDERING PROVIDER Ordering Provider: KELLE SIM [facility] Vital Signs Date Time Vital Sign Value Performing Clinician Facility 11-11-2022 11:41-0400 Body temperature 98 [degF] PLANT GUARD-C Jessica Alvarez NP [facility] 11-11-2022 11:41-0400 Diastolic blood pressure 78 mm[Hg] PLANT GUARD-C Jessica Alvarez PLANT GUARD Work Phone: [facility] 11-11-2022 11:41-0400 Heart rate 85 /min PLANT GUARD-C Jessica Alvarez PLANT GUARD Work Phone: [facility] 11-11-2022 11:41-0400 Respiratory rate 18 /min PLANT GUARD-C Jessica Alvarez PLANT GUARD Work Phone: [facility] 11-11-2022 11:41-0400 SaO2% (BldA) [Mass fraction] 97 % PLANT GUARD-C Jessica Alvarez PLANT GUARD Work Phone: [facility] 11-11-2022 11:41-0400 Systolic blood pressure 144 mm[Hg] PLANT GUARD-C Jessica Alvarez PLANT GUARD Work Phone: [facility] 11-11-2022 06:00-0400 Body mass index (BMI) [Ratio] 34 kg/m2 PLANT GUARD-C Jessica Alvarez PLANT GUARD Work Phone: [facility] 11-11-2022 06:00-0400 Body weight 120 kg PLANT GUARD-C Jessica Alvarez PLANT GUARD Work Phone: [facility] 11-08-2022 21:09-0400 Body height 187.96 cm PLANT GUARD-C Jessica Alvarez PLANT GUARD Work Phone: [facility] 11-08-2022 20:02-0400 Body temperature 98.6 [degF] [facility] 11-08-2022 20:02-0400 Diastolic blood pressure 86 mm[Hg] [facility] 11-08-2022 20:02-0400 Heart rate 78 /min [facility] 11-08-2022 20:02-0400 Respiratory rate 23 /min [facility] 11-08-2022 20:02-0400 SaO2% (BldA) [Mass fraction] 97 % [facility] 11-08-2022 20:02-0400 Systolic blood pressure 103 mm[Hg] [facility] 11-08-2022 16:55-0400 Body height 187.96 cm [facility] 11-08-2022 16:55-0400 Body mass index (BMI) [Ratio] 35.6 kg/m2 [facility] 11-08-2022 16:55-0400 Body weight 126.1 kg [facility] 11-08-2022 08:31-0400 Body height 187.96 cm [facility] 11-08-2022 08:31-0400 Body mass index (BMI) [Ratio] 35.2 kg/m2 [facility] 11-08-2022 08:31-0400 Body temperature 97.9 [degF] [facility] 11-08-2022 08:31-0400 Body weight 124.4 kg [facility] 11-08-2022 08:31-0400 Diastolic blood pressure 69 mm[Hg] [facility] 11-08-2022 08:31-0400 Heart rate 87 /min [facility] 11-08-2022 08:31-0400 Respiratory rate 14 /min [facility] 11-08-2022 08:31-0400 SaO2% (BldA) [Mass fraction] 97 % [facility] 11-08-2022 08:31-0400 Systolic blood pressure 140 mm[Hg] [facility] 10-03-2022 09:36-0400 Diastolic blood pressure 77 mm[Hg] [facility] 10-03-2022 09:36-0400 Heart rate 81 /min [facility] 10-03-2022 09:36-0400 Respiratory rate 14 /min [facility] 10-03-2022 09:36-0400 SaO2% (BldA) [Mass fraction] 98 % [facility] 10-03-2022 09:36-0400 Systolic blood pressure 149 mm[Hg] [facility] 10-03-2022 06:52-0400 Body height 187.96 cm [facility] 10-03-2022 06:52-0400 Body mass index (BMI) [Ratio] 35.6 kg/m2 [facility] 10-03-2022 06:52-0400 Body temperature 97.9 [degF] [facility] 10-03-2022 06:52-0400 Body weight 126 kg [facility] 04-30-2021 07:22-0500 Body temperature 97.52 [degF] MILAD SNOW MD [facility] 04-30-2021 07:22-0500 Diastolic blood pressure 88 mm[Hg] MILAD SNOW MD [facility] 04-30-2021 07:22-0500 Heart rate 72 /min MILAD SNOW MD [facility] 04-30-2021 07:22-0500 Respiratory rate 18 /min MILAD SNOW MD [facility] 04-30-2021 07:22-0500 Systolic blood pressure 132 mm[Hg] MILAD SNOW MD [facility] 03-01-2021 16:10-0500 Diastolic blood pressure 72 mm[Hg] CIERRA LEONIDES SLIP COVER ESTIMATOR-GAMING FLOOR SUPERVISOR [facility] 03-01-2021 16:10-0500 Heart rate 67 /min CIERRA ALTAMIRANOELY SLIP COVER ESTIMATOR-GAMING FLOOR SUPERVISOR [facility] 03-01-2021 16:10-0500 Respiratory rate 18 /min CIERRA LEONIDES SLIP COVER ESTIMATOR-GAMING FLOOR SUPERVISOR [facility] 03-01-2021 16:10-0500 Systolic blood pressure 141 mm[Hg] CIERRA ALTAMIRANOELY SLIP COVER ESTIMATOR-GAMING FLOOR SUPERVISOR [facility] 03-01-2021 10:51-0500 Heart rate 68 /min CIERRA LEONIDES SLIP COVER ESTIMATOR-GAMING FLOOR SUPERVISOR [facility] 03-01-2021 10:51-0500 Respiratory rate 18 /min CIERRA LEONIDES SLIP COVER ESTIMATOR-GAMING FLOOR SUPERVISOR [facility] 03-01-2021 08:50-0500 Body temperature 96.8 [degF] CIERRA LEONIDES SLIP COVER ESTIMATOR-GAMING FLOOR SUPERVISOR [facility] 03-01-2021 08:50-0500 Diastolic blood pressure 78 mm[Hg] CIERRA LEONIDES SLIP COVER ESTIMATOR-GAMING FLOOR SUPERVISOR [facility] 03-01-2021 08:50-0500 Heart rate 89 /min CIERRA LEONIDES SLIP COVER ESTIMATOR-GAMING FLOOR SUPERVISOR [facility] 03-01-2021 08:50-0500 Mean blood pressure 100 mm[Hg] CIERRA LEONIDES SLIP COVER ESTIMATOR-GAMING FLOOR SUPERVISOR [facility] 03-01-2021 08:50-0500 Respiratory rate 18 /min CIERRA LEONIDES SLIP COVER ESTIMATOR-GAMING FLOOR SUPERVISOR [facility] 03-01-2021 08:50-0500 Systolic blood pressure 144 mm[Hg] CIERRA LEONIDES SLIP COVER ESTIMATOR-GAMING FLOOR SUPERVISOR [facility] 03-01-2021 04:09-0500 Body temperature 96.8 [degF] CIERRA LEONIDES SLIP COVER ESTIMATOR-GAMING FLOOR SUPERVISOR [facility] 03-01-2021 04:09-0500 Diastolic blood pressure 61 mm[Hg] CIERRA COYLE SLIP COVER ESTIMATOR-GAMING FLOOR SUPERVISOR [facility] 03-01-2021 04:09-0500 Mean blood pressure 84 mm[Hg] CIERRA COYLE SLIP COVER ESTIMATOR-GAMING FLOOR SUPERVISOR [facility] 03-01-2021 04:09-0500 Reason For Taking VItal Signs CIERRA COYLE SLIP COVER ESTIMATOR-GAMING FLOOR SUPERVISOR [facility] 03-01-2021 04:09-0500 Systolic blood pressure 131 mm[Hg] CIERRA COYLE SLIP COVER ESTIMATOR-GAMING FLOOR SUPERVISOR [facility] 02-28-2021 23:55-0500 Body temperature 95.36 [degF] CIERRA COYLE SLIP COVER ESTIMATOR-GAMING FLOOR SUPERVISOR [facility] 02-28-2021 20:00-0500 Heart rate 81 /min CIERRA COYLE SLIP COVER ESTIMATOR-GAMING FLOOR SUPERVISOR [facility] 02-28-2021 20:00-0500 Mean blood pressure 105 mm[Hg] CIERRA COYLE SLIP COVER ESTIMATOR-GAMING FLOOR SUPERVISOR [facility] 02-28-2021 20:00-0500 Reason For Taking VItal Signs CIERRA COYLE SLIP COVER ESTIMATOR-GAMING FLOOR SUPERVISOR [facility] 02-28-2021 15:33-0500 Heart rate 78 /min CIERRA COYLE APRN-GAMING FLOOR SUPERVISOR [facility] 02-28-2021 15:33-0500 Reason For Taking VItal Signs CIERRA COYLE APRN-GAMING FLOOR SUPERVISOR [facility] 02-28-2021 11:37-0500 Heart rate 84 /min CIERRA COYLE APRN-GAMING FLOOR SUPERVISOR [facility] 02-27-2021 09:11-0500 SaO2% (BldA) [Mass fraction] 94 % CIERRA COYLE APRN-GAMING FLOOR SUPERVISOR [facility] 02-27-2021 00:40-0500 Body height 188 cm CIERRA COYLE APRN-GAMING FLOOR SUPERVISOR [facility] 02-27-2021 00:40-0500 Body weight 112 kg CIERRA COYLE APRN-GAMING FLOOR SUPERVISOR [facility] 02-27-2021 00:40-0500 Body weight 31.69 kg/m2 CIERRA COYLE SLIP COVER ESTIMATOR-GAMING FLOOR SUPERVISOR [facility] 02-01-2021 07:50-0400 Body temperature 97.7 [degF] Jesse Pack MD Work Phone: [facility] Work Phone: 02-01-2021 07:50-0400 Diastolic blood pressure 78 mm[Hg] Jesse Pack MD Work Phone: [facility] Work Phone: 02-01-2021 07:50-0400 Heart rate 62 /min Jesse Pack MD Work Phone: [employer] Work Phone: 02-01-2021 07:50-0400 Respiratory rate 18 /min Jesse Pack MD Work Phone: [employer] Work Phone: 02-01-2021 07:50-0400 SaO2% (BldA) [Mass fraction] 98 % Jesse Pack MD Work Phone: [employer] Work Phone: 02-01-2021 07:50-0400 Systolic blood pressure 128 mm[Hg] Jesse Pack MD Work Phone: [employer] Work Phone: 01-31-2021 19:54-0400 Body height 188 cm Jesse Pack MD Work Phone: [employer] Work Phone: 01-31-2021 19:54-0400 Body mass index (BMI) [Ratio] 34.15 kg/m2 Jesse Pack MD Work Phone: [employer] Work Phone: 01-31-2021 19:54-0400 Body weight 120.66 kg Jesse Pack MD Work Phone: [employer] Work Phone: 02-11-2020 20:55-0500 BMI (Body Mass Index) 35.95 kg/m2 [employer] [facility] [place], [place] 02-11-2020 20:55-0500 Body Temperature 98.6 [degF] [employer] [place] 02-11-2020 20:55-0500 Body weight 127.01 kg [employer] 02-11-2020 20:55-0500 BP Diastolic 75 mm[Hg] [employer] [facility] [place] , [place] 02-11-2020 20:55-0500 BP Systolic 149 mm[Hg] [employer] [facility] [place] 02-11-2020 20:55-0500 Height 188 cm [employer] [facility] , [place] 02-11-2020 20:55-0500 Pulse (Heart Rate) 92 /min wendy Zendejas [facility], [place] 02-11-2020 20:55-0500 Pulse Oximetry 98 % [facility] , [place] 02-11-2020 20:55-0500 Respiratory Rate 18 /min Favian Zendejas [facility], [place] 01-06-2020 22:38-0400 BP Diastolic 73 mm[Hg] Milan Joseline [facility] , [place] 01-06-2020 22:38-0400 BP Systolic 142 mm[Hg] wendy Trevizo [facility] , [place] 01-06-2020 22:38-0400 Pulse (Heart Rate) 88 /min [facility], [place] 01-06-2020 22:38-0400 Pulse Oximetry 100 % wendy Zendejas [facility] , [place] 01-06-2020 22:38-0400 Respiratory Rate 16 /min wendy Zendejas [facility], [place] 01-06-2020 19:16-0400 BMI (Body Mass Index) 35.95 kg/m2 wendy Zendejas [facility], [place] 01-06-2020 19:16-0400 Body Temperature 99.61 [degF] [facility] [place] 01-06-2020 19:16-0400 Body weight 127.01 kg [facility] , [place] 01-06-2020 19:16-0400 Height [address] [facility] , [place] 09-16-2019 14:51-0400 Body Temperature 98.2 [degF] [facility] [place] 09-16-2019 14:51-0400 BP Diastolic 55 mm[Hg] [facility] [place] 09-16-2019 14:51-0400 BP Systolic 108 mm[Hg] [facility] [place] 09-16-2019 14:51-0400 Pulse (Heart Rate) 66 /min [facility] [place] 09-16-2019 14:51-0400 Pulse Oximetry 94 % [facility] , [place] 09-16-2019 14:51-0400 Respiratory Rate 20 /min [facility], [place] 09-12-2019 19:36-0400 BMI (Body Mass Index) 36.32 kg/m2 [facility] [place] 09-12-2019 19:36-0400 Body weight 128.32 kg [facility] , [place] 09-12-2019 15:03-0400 Height 188 cm [facility] , [place] 09-02-2019 22:00-0400 BP Diastolic 84 mm[Hg] [facility] [place] 09-02-2019 22:00-0400 BP Systolic 159 mm[Hg] [facility] [place] 09-02-2019 22:00-0400 Pulse (Heart Rate) 76 /min [facility], [place] 09-02-2019 22:00-0400 Pulse Oximetry 100 % [facility] [place] 09-02-2019 22:00-0400 Respiratory Rate 18 /min [facility], [place] 09-02-2019 20:18-0400 Body Temperature 98.6 [degF] [facility] [place] 12-04-2018 15:08-0400 Body Temperature 98.71 [degF] Praneeth [facility], [place] 12-04-2018 15:08-0400 BP Diastolic 83 mm[Hg] Praneeth Rosa [facility] , [place] 12-04-2018 15:08-0400 BP Systolic 151 mm[Hg] Praneeth [facility] , [place] 12-04-2018 15:08-0400 Pulse (Heart Rate) 67 /min Praneeth [facility], [place] 12-04-2018 15:08-0400 Pulse Oximetry 98 % Praneeth [facility] , [place] 12-04-2018 15:08-0400 Respiratory Rate 22 /min Praneeth [facility], [place] 12-02-2018 03:49-0400 BMI (Body Mass Index) 38.45 kg/m2 Praneeth Rosa [facility], [place] 12-02-2018 03:49-0400 Body weight 135.[address] [facility] , [place] 11-30-2018 10:130400 Height 188 cm Praneeth Rosa [place] Encounters Encounter Date Encounter Type Care Provider Facility Start: 05-15-2024 End: 05-15-2024 Emergency department patient visit Jessica Alvarez PLANT GUARD [facility] Start: 11-08-2023 ambulatory Mark Anthony Thomas Facility: [facility] Start: 11-08-2023 End: 11-12-2023 Evaluation and management of inpatient Jessica Alvarez PLANT GUARD [facility] Start: 12-28-2022 End: 12-28-2022 ambulatory PLANT GUARD-C Jessica Alvarez PLANT GUARD Work Phone: [facility] Work Phone: Start: 12-28-2022 End: 12-28-2022 Patient encounter procedure PLANT GUARD-C Jessica Alvarez PLANT GUARD Work Phone: [facility] Work Phone: Start: 11-11-2022 Non-patient / Non-visit PLANT GUARD-C Cesar Alvarez PLANT GUARD Work Phone: [facility] Work Phone: Start: 11-10-2022 Non-patient / Non-visit PLANT GUARD-C Cesar Alvarez PLANT GUARD Work Phone: [facility] Work Phone: Start: 11-09-2022 Non-patient / Non-visit PLANT GUARD-C Cesar Alvarez PLANT GUARD Work Phone: [facility] Work Phone: Start: 11-08-2022 End: 11-11-2022 Evaluation and management of inpatient [facility] Work Phone: Start: 11-08-2022 End: 11-11-2022 observation encounter PLANT GUARD-C Jessica Alvarez PLANT GUARD Work Phone: [facility] Work Phone: Start: 11-08-2022 End: 11-08-2022 Emergency department patient [facility] Work Phone: Start: 10-03-2022 End: 10-03-2022 Emergency department patient visit [facility] Work Phone: Start: 02-14-2022 End: 02-14-2022 AMB External Visit DANAY CASTILLO MD [facility] Start: 04-30-2021 End: 04-30-2021 Emergency department patient visit MILAD SNOW MD [facility] Start: 02-26-2021 End: 03-01-2021 Evaluation and management of inpatient CIERRA COYLE SLIP COVER ESTIMATOR-GAMING FLOOR SUPERVISOR [facility] Start: 02-16-2021 Patient encounter procedure [facility] Provider [facility] Department Start: 01-30-2021 End: 02-01-2021 Emergency department patient visit Jesse Pack MD Work Phone: [facility] [employer] Comment on above: Lightheadedness (Nelida adela Dx) Start: 01-03-2021 End: 01-03-2021 Subsequent hospital visit by physician [facility] MD [facility] Start: 02-11-2020 End: 02-11-2020 Emergency department patient visit Favian Trevizo [facility] Comment on above: Closed head injury, initial encounter (Primary Dx); Fall, initial encounter; Lumbar strain, initial encounter Start: 01-06-2020 End: 01-06-2020 Emergency department patient visit Favian Trevizo [facility] Comment on above: Subjective fever (Pr imary Dx) Start: 09-12-2019 End: 09-16-2019 Emergency department patient visit Mojgan Ivy Work Phone: [facility] Comment on above: Acute cystitis with hematuria (Primary Dx); Dehydration; Generalized weakness Start: 09-02-2019 End: 09-02-2019 Emergency department patient visit Tyler Bermudez Work Phone: [facility] Comment on above: Injury of head, init ial encounter (Primary Dx) Start: 11-30-2018 End: 12-04-2018 Evaluation and management of inpatient Praneeth Rosa Work Phone: [facility] Comment on above: Pneumonia due to org anism (Primary Dx); Non-intractable vomiting with nausea, unspecified vomiting type; General weakness; Elevated lactic acid level Start: 10-31-2017 End: 11-01-2017 Patient encounter [facility] Start: 10-24-2017 End: 10-25-2017 Patient encounter [facility] Start: 10-17-2017 End: 10-18-2017 Patient encounter [facility] Start: 10-09-2017 End: 10-10-2017 Patient encounter ROSA Patrick TERRELL [facility] Start: 10-02-2017 End: 10-03-2017 Patient encounter [facility] Start: 09-25-2017 End: 09-25-2017 Evaluation and management of inpatient KELVIN ALMANZAR [facility] Start: 06-10-2011 End: 06-10-2011 Patient encounter procedure Kelle Sim Work Phone: [facility] Start: 06-10-2011 Results Only Kelle Sim Work Phone: [facility] Procedures Date Procedure Procedure Detail Performing Clinician Start: 12-28-2022 Dual energy X-ray absorptiometry PLANT GUARD-C Jessica Alvarez PLANT GUARD Work Phone: Start: 11-10-2022 US scan of gallbladder PLANT GUARD-C Jessica sahni PLANT GUARD Work Phone: Start: 11-09-2022 Plain chest X-ray PLANT GUARD-C Jessica Diez P Work Phone: Start: 11-08-2022 Plain chest X-ray Start: 11-08-2022 Coronavirus COVID-19 PCR PLANT GUARD-C Jessica burrd PLANT GUARD Work Phone: Start: 10-03-2022 X-ray of chest [...] 01-30-2021 Ct head/brain w/o contrast material Denzel Diez Vaughn PA-C Work Phone: Start: 01-30-2021 Ecg routine ecg w/least 12 lds w/i&r Denzel Diez Vaughn PA-C Work Phone: Start: 02-11-2020 Radex spine lumbosacral 2/3 views Kelle Albrecht Work Phone: Start: 02-11-2020 Ct cervical spine w/o contrast material Kelle Albrecht Work Phone: Start: 02-11-2020 Ct head/brain w/o contrast material Kelle Patrick Albrecht Work Phone: Start: 09-16-2019 Gluc bld gluc [...] use Mojganclay Ulricha Work Phone: Start: 09-15-2019 Gluc bld [...] use Mojgan Ulricha Work Phone: Start: 09-15-2019 BASIC METABOLIC [...] home use Mojgan Fishhta Work Phone: Start: 09-14-2019 Gluc bld gluc mntr dev cleared fda spec home use Mojgan Fishhta Work Phone: Start: 09-14-2019 BASIC METABOLIC PANEL W/ REFLEX TO MG FOR LOW K Shea [employer] Work Phone: Start: 09-14-2019 Blood count complete automated Shea [employer] Work Phone: Start: 09-13-2019 Gluc bld gluc mntr dev cleared fda spec home use Mojgan Fishhta Work Phone: Start: 09-13-2019 Gluc bld gluc mntr dev cleared fda spec home use Orphazymeshauna H[employer] Work Phone: Start: 09-13-2019 Gluc bld gluc mntr dev cleared fda spec home use Orphazymeshauna [employer] Work Phone: Start: 09-13-2019 Gluc bld gluc mntr dev cleared fda spec home use Mojgan Fishhta Work Phone: Start: 09-13-2019 Assay of magnesium Orphazymeshauna [employer] Work Phone: Start: 09-13-2019 BASIC METABOLIC PANEL W/ REFLEX TO MG FOR LOW K Shea Wil[employer] Work Phone: Start: 09-13-2019 Blood count complete automated Orphazymeshauna ProsperWorkskhurramAll[employer] Work Phone: Start: 09-12-2019 Gluc bld gluc mntr dev cleared fda spec home use Mo[employer]gan [employer] Work Phone: Start: 09-12-2019 Culture bacterial quanttative colony count urine [employer] Work Phone: Start: 09-12-2019 Urnls dip stick/tablet rgnt auto w/o microscopy [employer] Work Phone: Start: 09-12-2019 COVID-19 [employer] Work Phone: Start: 09-12-2019 Assay of troponin [...] Start: 09-02-2019 Ct head/brain w/o contrast material Tlyer R Aidan Work Phone: Start: 09-02-2019 Ct maxillofacial w/o contrast material Tyler R Aidan Work Phone: Start: 12-04-2018 Gluc bld gluc mntr dev cleared fda spec home use [employer] Work Phone: Start: 12-04-2018 Gluc bld gluc mntr dev cleared fda spec home use [employer] Work Phone: Start: 12-04-2018 Blood count complete automated Shea Aguilar Work Phone: Start: 12-04-2018 Comprehensive metabolic panel [employer] Work Phone: Start: 12-03-2018 Gluc bld gluc mntr dev cleared fda spec home use [employer] Work Phone: Start: 12-03-2018 Gluc bld gluc mntr dev cleared fda spec home use [employer] Work Phone: Start: 12-03-2018 Gluc bld gluc mntr dev cleared fda spec home use Praneeth Rosa Work Phone: Start: 12-03-2018 Iadna-dna/rna gi pthgn multiplex probe tq 12-25 Man Hardin Work Phone: Start: 12-03-2018 Gluc bld gluc mntr dev cleared fda spec home use Praneeth Rosa Work Phone: Start: 12-03-2018 Basic metabolic panel calcium total Shea Aguilar Work Phone: Start: 12-03-2018 Blood count complete automated Shea WilkinsNew Haven Pharmaceuticalsrohit Work Phone: Start: 12-02-2018 Gluc bld gluc [...] TO MG FOR LOW K Man Hardin [employer] Phone: Start: 12-01-2018 Blood count complete auto&auto difrntl wbc Man Hardin Work Phone: Start: 12-01-2018 Hemoglobin glycosylated a1c Man Hardin Work Phone: Start: 11-30-2018 Iaad ia mult step method nos each organism Man GallegosSyndero Work Phone: Start: 11-30-2018 STREP PNEUMONIAE ANTIGEN Man Hardin Work Phone: Start: 11-30-2018 Assay of lactate Man GallegosSyndero Work Phone: Start: 11-30-2018 Procalcitonin (pct) Man Hardin Work Phone: Start: 11-30-2018 ADD ON LAB TEST Man Hardin Work Phone: Start: 11-30-2018 Radex abd compl aqt abd w/s/e/d views 1 view ch Man Hardin Work Phone: Start: 11-30-2018 Iadna respiratry probe & rev trnscr 12-25 target Man Hardin Work Phone: Start: 11-30-2018 Assay of lactate Man Hardin [employer] Phone: Start: 11-30-2018 End: 11-30-2018 Culture bacterial blood aerobic w/id isolates Nurys Mukherjee [employer] Phone: Start: 11-30-2018 ADD ON LAB TEST Nurys Mukherjee [employer] Phone: Start: 11-30-2018 Assay of lactate Nurys Mukherjee [employer] Phone: Start: 11-30-2018 Assay of lipase Nurys Mukherjee Work Phone: Start: 11-30-2018 Assay of troponin quantitative Nurys Mukherjee [employer] Phone: Start: 11-30-2018 Basic metabolic panel calcium [...] Work Phone: None (qualifier value) DENY COYLE SLIP COVER ESTIMATOR-GAMING FLOOR SUPERVISOR Plan of Treatment Date Care Activity Detail Author Start: 09-01-2029 DTaP/Tdap/Td vaccine (4 - Td or Tdap) DTaP/Tdap/Td vaccine (4 - Td or Tdap) [facility] Work Phone: Start: 09-01-2029 DTaP/Tdap/Td vaccine (4 - Td) DTaP/Tdap/Td vaccine (4 - Td) [place] Start: 01-18-2028 DTaP/Tdap/Td vaccine (3 - Td) DTaP/Tdap/Td vaccine (3 - Td) [place] Start: 11-20-2026 Colon cancer screen colonoscopy Colon cancer screen colonoscopy [place] Start: 11-20-2026 Screening for malignant neoplasm of colon Colon cancer screen colonoscopy [place] Start: 11-17-2022 [facility] Start: 11-16-2022 Blood chemistry [facility] Start: 11-15-2022 Blood chemistry [facility] Start: 11-14-2022 Blood chemistry [facility] Start: 11-13-2022 Blood chemistry [facility] Start: 11-12-2022 Blood chemistry [facility] Start: 11-11-2022 Patient discharge [facility] Start: 11-08-2022 Aspiration precautions [facility] Start: 11-08-2022 Assessment of risk of venous thromboembolism [facility] Start: 11-08-2022 Care regimes management [facility] Start: 11-08-2022 Fall prevention [facility] Start: 11-08-2022 Inhalation therapy procedure [facility] Start: 11-08-2022 Insertion of catheter into peripheral vein [facility] Start: 11-08-2022 Introduction of urinary catheter [facility] Start: 11-08-2022 Measuring intake and output [facility] Start: 11-08-2022 Notification of physician [facility] Start: 11-08-2022 Providing care according to standard [facility] Start: 11-08-2022 Provision of activity privileges [facility] Start: 11-08-2022 Referral to occupational therapist [facility] Start: 11-08-2022 Referral to service [facility] Start: 11-08-2022 Verification routine [facility] Start: 11-08-2022 End: 11-08-2022 [facility] Start: 11-08-2022 Admission procedure [facility] Start: 11-08-2022 Coronavirus COVID-19 PCR Coronavirus COVID-19 PCR [facility] Start: 11-08-2022 Emergency department visit high/urgent severity EMERGENCY DEPT VISIT MOD MDM [facility] Start: 11-08-2022 Ther proph/dx njx iv push single/1st sbst/drug THER/PROPH/DIAG INJ IV PUSH [facility] Start: 11-08-2022 Troponin I measurement [facility] Start: 10-03-2022 [facility] Start: 10-03-2022 Incentive spirometry [facility] Start: 02-01-2022 Creatinine measurement Creatinine monitoring [facility] [...] procedure 06/13/2021 Office Visit Dermatology Kelle Nolasco SLIP COVER ESTIMATOR - GAMING FLOOR SUPERVISOR [facility] [address] [place], [place] [id number] Dermatology [facility] Start: 05-12-2021 Diabetic retinal exam Diabetic retinal exam [facility] Work Phone: Start: 05-12-2021 End: 05-12-2021 Patient encounter procedure 05/12/2021 Office Visit Ophthalmology Judy Reyes MD [address] [place] [address] [address] [place] [address] [phone] [facility] Ophthalmology Start: 02-16-2021 End: 02-16-2021 Patient encounter procedure 02/16/2021 Office Visit Neurology Brandy Mckinley, SLIP COVER ESTIMATOR - GAMING FLOOR SUPERVISOR [address] [facility] [address] [place] [address] [phone] [facility] Neurology [place] Start: 02-11-2021 End: 02-11-2021 Patient encounter procedure 02/11/2021 Office Visit Family Medicine Favian Trevizo MD PhD [address] [place] [address] [phone] [facility] Start: 02-09-2021 End: 02-09-2021 Patient encounter procedure 02/09/2021 Office Visit Orthopedic Surgery Ebony Nguyen DPM [address] [place] [address] [phone] [facility] Orthopedics [facility] [place] Start: 01-20-2021 End: 01-20-2021 Nursing evaluation of patient and report 01/20/2021 Nurse Only Family Medicine [facility] Start: 01-19-2021 End: 01-19-2021 Patient encounter procedure 01/19/2021 Office Visit Otolaryngology Asif Negron MD [address] [place] [address] [phone] [facility] ENT [facility] Start: 01-12-2021 End: 01-12-2021 Patient encounter procedure 01/12/2021 Office Visit Orthopedic Surgery Ebony Nguyen DPM [address] [place] [address] [facility] Orthopedics and Sports [facility] Start: 01-11-2021 End: 01-11-2021 Patient encounter procedure 01/11/2021 Appointment Neurology Geo Ruvalcaba MD [address] [place] [address] [phone] [facility] Start: 01-07-2021 End: 01-07-2021 Patient encounter procedure 01/07/2021 Office Visit Neurology Brandy Mckinley APRN - GAMING FLOOR SUPERVISOR [address] [place] [address] [facility] Neurology [place] Start: 12-01-2020 Influenza vaccination Flu vaccine (#1) [facility] Work Phone: Start: 10-19-2020 HbA1c (Bld) [Mass fraction] A1C test (Diabetic or Prediabetic) [place], [place] Start: 10-19-2020 Lipid panel Lipid [place] Start: 09-15-2020 Creatinine measurement Creatinine monitoring [place], [place] Start: 09-15-2020 Potassium monitoring Potassium monitoring [place] Start: 05-12-2020 End: 05-12-2020 Office Visit 05/12/2020 Office Visit Ophthalmology Judy Reyes MD [address] [place] [address] [phone] [facility] Ophthalmology Start: 05-07-2020 Diabetic retinal exam Diabetic retinal exam [place], [place] Start: 04-07-2020 End: 04-07-2020 Office Visit 04/07/2020 Office Visit Family Medicine Favian Trevizo MD PhD [address] [place] [address] [phone] [facility] Family Medicine Start: 03-13-2020 Diabetic foot examination Diabetic foot exam [place] Start: 03-13-2020 HbA1c (Bld) [Mass fraction] A1C test (Diabetic or Prediabetic) [place] Start: 01-20-2020 End: 01-20-2020 Office Visit 01/20/2020 Office Visit Family Medicine Favian Trevizo MD PhD [address] [place] [address] [phone] [facility] Family Medicine Start: 01-10-2020 Annual Wellness Visit (AWV) Annual Wellness Visit (AWV) [place] Start: 12-05-2019 Creatinine measurement Creatinine monitoring [facility] Start: 12-05-2019 Creatinine monitoring Creatinine monitoring [place] Start: 12-05-2019 Potassium monitoring Potassium monitoring [place] Start: 12-02-2019 A1C test (Diabetic or Prediabetic) A1C test (Diabetic or Prediabetic) [place] Start: 12-02-2019 Influenza vaccination Flu vaccine (#1) [place] Start: 10-20-2019 End: 10-20-2019 Office Visit 10/20/2019 Office Visit Family Medicine Favian Trevizo MD PhD [address] [place] [address] [phone] [facility] Start: 09-25-2019 End: 09-25-2019 Office Visit 09/25/2019 Office Visit Family Medicine Favian Trevizo MD PhD [address] [place] [address] [phone] [facility] Start: 09-18-2019 End: 09-18-2019 Office Visit 09/18/2019 Office Visit Family Favian Aiken MD PhD [address] [place] [address] [phone] [facility] Start: 05-23-2019 Diabetic retinal exam Diabetic retinal exam [place] Start: 05-07-2019 End: 05-07-2019 Office Visit 05/07/2019 Office Visit Ophthalmology AwJudy rene MD [address] [place] [phone] [facility] Ophthalmology Start: 02-14-2019 [object Object] Diabetic foot exam [place] Start: 01-31-2019 Influenza vaccination Flu vaccine (#1) [place] Comment on above: Postponed from 12/01/2018 (Patient Refus ed) Start: 01-09-2019 End: 01-09-2019 Office Visit 01/09/2019 Office Visit Family Favian Aiken MD PhD [address] [place] [address] [phone] [facility] Start: 10-16-2018 Diabetic microalbuminuria test Diabetic microalbuminuria test [place] Start: 10-16-2018 Lipid panel Lip[place] Start: 10-16-2018 Lipid screen Lip[place] Start: 09-17-2018 Annual Wellness Visit (AWV) Annual Wellness Visit (AWV) [place] Start: 2012 Annual Wellness Visit (AWV) Annual Wellness Visit (AWV) [place] Start: 09-06-1999 Shingles Vaccine (1 of 2) Shingles Vaccine (1 of 2) [place], [place] Start: 1950 Hepatitis C screen Hepatitis C screen [place], [place] Start: 1950 Hepatitis C screening Hepatitis C screen [place] End: 11-30-2018 Bacteria identified Respiratory culture Nom (Sput) Sputum culture Microbiology Routine One Time for 1 Occurrences starting 11/30/2018 until 11/30/2018 [place] Comment on above: One Time for 1 Occurrences starting 11/02 until 11/30/2018 End: 09-17-2019 Basic Metabolic Panel w/ Reflex to MG Basic Metabolic Panel w/ Reflex to MG Lab Routine Daily for 5 Occurrences starting 09/13/2019 until 09/17/2019, 4 completed [place] Comment on above: Daily for 5 Occurrences starting 020 until 09/17/2019, 4 completed Basic Metabolic Pane l w/ Reflex to MG Basic Metabolic Panel w/ Reflex to MG Lab Routine Daily until discontinued starting 02/01/2021, 1 completed [employer] Work Phone: Comment on above: Daily until discontinued starting 2020, 1 completed End: 09-17-2019 CBC CBC Lab Routine Daily for 5 Occurrences starting 09/13/2019 until 09/17/2019, 4 completed [place] Comment on above: Daily for 5 Occurrences starting 020 until 09/17/2019, 4 completed CBC W Auto Different ial panel - Blood CBC Auto Differential Lab Routine Daily until discontinued starting 02/01/2021, 1 completed [employer] Work Phone: Comment on above: Daily until discontinued starting 2020, 1 completed End: 01-06-2020 COVID-19 COVID-19 Lab Routine One Time for 1 Occurrences starting 01/06/2020 until 01/06/2020 [place] Comment on above: One Time for 1 Occurrences starting 09/2019 until 01/06/2020 COVID-19 COVID-19 Lab STA T 01/06/2020 8:13 PM EDT [place] Culture Blood #1 Culture Blood # 1 Microbiology STAT 11/30/2018 12:25 PM EDT [place] Culture Blood #2 Culture Blood # 2 Microbiology STAT 11/30/2018 12:55 PM EDT [place] End: 09-14-2019 Free T4 [Mass/Vol] T4, Free Lab Add-On One Time for 1 Occurrences starting 09/14/2019 until 09/14/2019 [place] Comment on above: One Time for 1 Occurrences starting 08/31 until 09/14/2019 End: 01-30-2021 Glucose [Mass/volume] in Serum or Plasma POCT Glucose Point of Care Testing STAT One Time for 1 Occurrences starting 01/30/2021 until 01/30/2021 [employer] Work Phone: Comment on above: One Time for 1 Occurrences starting 01/02 until 01/30/2021 HHN Treatment HHN Treatment Respiratory Care Routine Every 4hr while awake until discontinued starting 11/30/2018 [place] Comment on above: Every 4hr while awake until discontinued starting 11/30/2018 End: 12-04-2018 Home O2 eval (desaturation screen) Home O2 eval (desaturation screen) Respiratory Care Routine One Time for 1 Occurrences starting 12/04/2018 until 12/04/2018 [place] Comment on above: One Time for 1 Occurrences starting 07/2018 until 12/04/2018 Incentive spirometry RT Incentiv e spirometry RT Respiratory Care Routine Every 2hr while awake until discontinued starting 11/30/2018 [place] Comment on above: Every 2hr while awake until discontinued starting 11/30/2018 Initiate Oxygen Ther apy Protocol [place] Comment on above: Daily until discontinued starting 2018 Daily until disconti nued starting 09/12/2019 End: 11-30-2018 Microscopic observation Gram stain Nom (Unsp spec) Gram Stain Microbiology Routine Once for 1 Occurrences starting 11/30/2018 until 11/30/2018 [place] Comment on above: Once for 1 Occurrences starting 12/01/19 19 until 11/30/2018 End: 09-12-2019 Miscellaneous Sendout 1 Miscellaneous Sendout 1 Lab Routine One Time for 1 Occurrences starting 09/12/2019 until 09/12/2019 [place] Comment on above: One Time for 1 Occurrences starting 08/31 until 09/12/2019 Oxygen therapy [[facility] Data Set] [facility] Work Phone: Comment on above: Daily until discontinued starting 2020 Daily until disconti nued starting 01/31/2021 Patient Education [facility] Work Phone: Patient referral [facility] Work Phone: POCT glucose [place], [place] Comment on above: 4X Daily (AC & HS) until discontinued st arting 12/01/2018 As Needed until disc ontinued starting 12/01/2018 As Needed until disc ontinued starting 09/12/2019 Respiratory pathogen s DNA and RNA panel - Respiratory specimen by LILLIAN with probe detection [facility] End: 11-30-2018 Sputum induction Sputum induction Respiratory Care Routine One Time for 1 Occurrences starting 11/30/2018 until 11/30/2018 [place] Comment on above: One Time for 1 Occurrences starting 11/02 until 11/30/2018 Immunizations Immunization Date Immunization Notes Care Provider Kay polo 10-03-2022 tetanus toxoid, redu agustina diphtheria toxoid, and acellular pertussis vaccine, adsorbed [facility] 04-07-2020 Influenza, High-dose , Quadv, 65 yrs +, IM (Fluzone) Favian Trevizo MD PhD Work Phone: [facility] Work Phone: 09-02-2019 diphtheria, tetanus toxoids and acellular pertussis vaccine, unspecified [facility] [place] 09-02-2019 tetanus toxoid, redu agustina diphtheria toxoid, and acellular pertussis vaccine, adsorbed [facility], [place] 01-09-2019 influenza, high dose seasonal, preservative-free [facility], [place] 01-17-2018 tetanus toxoid, redu agustina diphtheria toxoid, and acellular pertussis vaccine, adsorbed [facility], [place] 10-16-2017 pneumococcal polysaccharide vaccine, 23 valent [facility] 08-10-2016 pneumococcal conjuga te vaccine, 13 valent [facility] 07-22-2012 pneumococcal polysaccharide vaccine, 23 valent [facility] 05-27-2007 tetanus toxoid, redu agustina diphtheria toxoid, and acellular pertussis vaccine, adsorbed [facility] 08-31-1992 Td, unspecified formulation [facility] Payers Date Payer Category Payer Unknown [id number] 2023 Medicare [id number] 2023 Self-pay 2023 Unknown [id number] 2023 Unknown [id number] 2020 Medicare AETNA MEDICARE A ETNA MEDICARE ADVANTAGE O [id number] 2020-Present [address] [place] [address] Medicare [id number] 2020 Medicare AETNA MEDICARE A ETNA MEDICARE ASSURE HMO D SNP [id number] 2020-Present [phone] [address] [place] [address] Medicare [id number] 2016 Medicare [id number] 2016 Medicare BCBS MEDICARE AN THEM MEDIBLUE ESSENTIAL/PLUS xxxxxxxxxxxx 2016-Present [address] [address] [place] [address] xxxxxxxxxxxx [id number] 2013 Medicaid MEDICAID [facility] MEDICAID [id number] 2013-Present [phone] [address] [place] [address] Medicaid [id number] 2005 Unknown [facility] 6 [facility] [id number] 2005-2014 O [id number] Unknown [id number] Unknown [id number] Unknown [id number] Unknown [id number] Unknown [id number] Unknown [id number] Unknown [id number] Social History Date Type Detail Facility Start: 12-03-2018 End: 02-14-2021 Tobacco smoking status NHIS Former smoker [facility] End: 04-02-1982 History of tobacco use Current sm[place] End: 04-02-1982 History of tobacco use Cigarette Sm[place] Start: 12-03-2018 End: 01-31-2021 Cigarettes smoked [facility]pack per [facility] Start: 12-03-2018 Alcohol intake [facility] Start: 06-14-2018 History SDOH Food Worry 1 [facility] Start: 11-20-2016 Tobacco Comment quit 34 years ago Me [facility] Start: 08-17-2015 Alcohol Comment no alcohol in 3 year s [facility] Start: 1950 Sex Assigned At [facility] file [facility] Start: 09-02-2019 End: 01-31-2021 Alcohol intake Current non-drinker of alcohol (finding[place] Exposure to SARS-CoV -2 (event) Unable to assess [facility]iana [facility] Start: 12-17-2019 End: 01-31-2021 Tobacco use and exposure Never used Cristiana [facility] Exposure to SARS-CoV -2 (event) Not sure Cristiana [facility] Start: 02-11-2020 Alcohol Comment no alcohol in 8 year s [facility] Start: 09-30-2020 Tobacco Comment quit 37 years ago [facility] Work Phone: Start: 02-14-2021 Alcohol intake Ex-drinker (finding) [facility] Start: 1950 Sex Assigned At Male A [facility] Tobacco smoking status No Smokin g Status Entered [facility] Start: 10-03-2022 End: 11-08-2022 Tobacco smoking status NHIS Unknown if ever smoked [facility] Medical Equipment Procedure Code Equipment Code Equipment Origin al Text Equipment Identifier Dates USE DIRECTED TO TEST BLOOD SUGAR 3 TIMES DAILY [id number] Start: 08-20-2018 1 each by In Vit ro route 3 times daily As needed. [id number] Start: 08-20-2018 1 each by In Vit ro route 3 times daily As needed. [id number] Start: 01-09-2019 TEST BLOOD SUGAR 3 TIMES DAILY [id number] Start: 09-09-2019 TEST BLOOD SUGAR 3 TIMES A DAY. [id number] Start: 07-08-2021 1 each by In Vit ro route 3 times daily As needed. [id number] Start: 10-28-2020 Goals Date Patient Goal Desired Activity /State Functional Status Date Assessment Result Facility 11-11-2022 Functional status Ambulates [facility] Work Phone: Mental Status Date Assessment Result Facility 11-11-2022 Cognitive function Voice/Name [facility] Work Phone: 11-08-2022 Cognitive function Voice/Name [facility] Work Phone: 11-08-2022 Cognitive function Level Of Cons ciousness Awake;Alert;Appropriate [facility] Work Phone: 10-03-2022 Cognitive function Level Of Cons ciousness Awake;Alert [facility] Work Phone: Clinical Notes 10-07-2020 to 11-12-2023 Note Date & Type Note Facility 11-12-2023 Note [facility] Medical Records Department [address] [place] [address] Discharge Summary 11/12/23 1343 MR#: [id number] Acct: [id number] Name: SHOLA MARTINEZ Demarco Rep #: [id number] : 1950 73 From: Deniz Cooper DO PCP: TARI Edwards Status:ADM IN [facility] Providers Date of Admission: 11/08/23 Date of [...] is a 73-year-old male who [facility] ED on 11/08/2023 with fevers and nausea/vomiting. Hospital course as noted below. Patient discharged to SNF at [facility] in stable condition on 11/11. 1. [...] and no apparent (more content not included)... [facility] 11-11-2022 Discharge summary Note Date/Time November 11, 2022 11:48am [facility] Medical Records Department [address] [place] [address] Discharge Summary 11/11/22 1147 MR#: [id number] Acct: [id number] Name: SHOLA MARTINEZ Demarco Rep #:[id number] : 1950 72 From: Tanika Kunz MD PCP: Jessica Alvarez PLANT GUARDYanique Status: ADM [facility] Location: [place] [address] Providers Date of Admission: 11/08/22 Date of [...] (Auto) 69.9, Lymph % (Auto) 18.4 L, Sioux % (Auto) 9.8, Eos % (Auto) 1.3, [...] Tanika Kunz Primary Care Provider: Jessica Alvarez PLANT GU[employer] Consulting Providers: Bridgett Villagomez Instructions Patient Instructions: [...] Referrals / Follow Up: Jessica Alvarez NP, PLANT GUARD-C [Primary Care Provider] - Within 2 Weeks Disposition Disposition (needs filled in before D/C Order can be placed): Assisted Living Charges/Coding Visit Charges Inpatient E&M: 61126 Disch Hosp >30min 11/11/22 1432 <Electronically signed by Tanika Kunz MD> Cosigner Signature (if applicable): CC: PLANT GUARD-C Jessica Alvarez; Dr. Tanika Kunz MD~ Signed [facility] Work Phone: 1(793) 202-300908-12-2023 Discharge summary Author Tanika [facility] November 11, 2022 11:47am Note Date/Time November 11, 2022 11 :48am [facility] Medical Records Department [address] [place] [address] Instructions for Home/Discharge Instructions 11/11/22 1147 MR#: [id number] Acct: [id number] Name: SHOLA MARTINEZ Rep #:[id number] : [...] Referrals / Follow Up: Jessica Alvarez NP, PLANT GUARD-C [Primary Care Provider] - Within 2 Weeks Disposition Disposition (needs filled in before D/C Order can be placed): Assisted Living 11/11/22 1147<Electronically signed by Tanika Kunz MD>Tanika Kunz MD CC: PLANT GUARD-C Jessica Alvarez; Dr. Bridgett Villagomez MD ~ Signed [facility] Work Phone: 1(932) 840-513008-11-2023 Progress note Author [facility] November 10, 2022 1:35pm Note Date/Time November 10, 2022 11 :24[facility] Medical Records Department [address] [place] [address] Progress Note 11/10/22 1123 MR#: [id number] Acct: [id number] Name: SHOLA MARTINEZ Demarco Rep #:[id number] : 1950 72 From: Tanika Kunz MD PCP: TARI Edwards Status: ADM [facility] Location: [place] [address] Subjective Subjective Patient seen and examined. He [...] % (Auto) 63.7, Lymph % (Auto) 24.0, Sioux % (Auto) 8.7, Eos % (Auto) 2.6, [...] with placement. Charges/Coding Visit Charges Inpatient E&M: 17290 Subs Hosp L2 11/10/22 1335 <Electronically signed by Tanika Kunz MD> Tanika Kunz MD Cosigner Signature (if applicable): CC: ~ Signed [facility] Work Phone: 1(231) 509-876408-10-2023 Progress note Author Tanika [facility] November 09, 2022 3:31pm Note Date/Time November 09, 2022 12 :12pm [facility] Medical Records Department [facility] [place] [address] Progress Note 11/09/22 1210 MR#: [id number] Acct: [id number] Name: SHOLA MARTINEZ Rep #:[id number] : 1950 72 From: Tanika Kunz MD PCP: Jessica Alvarez, PLANT GUARD-C Status: ADM MEL Location: [place] [address] Subjective Subjective Patient seen and examined. He [...] 71.7 H, Lymph % (Auto) 17.7 L, Sioux % (Auto) 8.1, Eos % (Auto) 1.3, [...] normal limits. Etiology is unclear. Will get [facility] upper quadrant ultrasound to evaluate. #Thrombocytopenia: Platelets were 107 on admission and now down to 101. Again etiology is not very clear. WBC and CBC are within normal limits. Will monitor. DVT prophylaxis: Lovenox Charges/Coding Visit Charges Inpatient E&M: 00044 Subs Hosp L2 11/09/22 1531 <Electronically signed by Tanika Kunz MD> Tanika Kunz MD Cosigner Signature (if applicable): CC: ~ [facility] Work Phone: [phone]) 167-486808-09-2023 Discharge summary Author Yifan Meza [facility] November 08, 2022 9:06pm Note Date/Time November 08, 2022 5:3 3pm [facility] Medical Records Department [address] [place] [address] Emergency Department Summary 11/08/22 MR#: [id number] Acct: [id number] Name: JUANSHOLA P Rep #:[id number] : 1950 72 From: Yifan Meza DO PCP: Jessica Alvarez PLANT GUARD-C Status: ADM MEL Location: [place] [address] HPI History of Present Illness Chief Complaint: [...] He denies abdominal pain. No urinary complaints. [facility] Medical History (Updated 11/08/22 @ 20:33 [...] Discharge Plan Disposition Disposition: Acute Care Hospital [facility] Discharge Date/Time: 11/08/22 20:33 What to do if you have Problems For any increased pain, shortness of breath, bleeding, nausea or vomiting, chestpain, or any unexpected problems, contact your Primary Care Provider. Call [facility] ([phone]) or report to the closest Emergency Room. Call 911 if necessary. 11/08/222105 <Electronically signed by Yifan Meza DO> Cosigner Signature (if applicable): CC: TARI Alvarez ~ [facility]igned [facility] Work Phone: 1(638) 546-523708-09-2023 History and physical note Author Bridgett Villagomez [facility] November 08, 2022 8:37pm Note Date/Time November 08, 2022 7:4 6pm [facility] Medical Records Department [address] [place] [address] H&P Exam - Hospitalist 11/08/221943 MR#: [id number] Acct: [id number] Name: SHOLA MARTINEZ Rep #:[id number] : 1950 72 From: Bridgett Villagomez MD PCP: Jessica Alvarez, PLANT GUARD-C Status: ADM MEL Location: [place] [address] HPI - General General Date of Admission: [...] as Zofran 4 mg p.o. x 1. [facility] Medical History (Updated 11/08/22 @ 20:33 [...] unclear chronicity: Admission platelet earlier in the [id number], no comparison available, potentially related to acute [...] facility paperwork. Charges/Coding Visit Charges Inpatient E&M: 08894 Init Hosp L2 11/08/222036 <Electronically signed by Bridgett Villagomez MD> Cosigner Signature (if applicable): CC: PLANT GUARD-C Jessica Alvarez; Dr. Bridgett Villagomez MD~ [facility]igned [facility] Work Phone: [phone]) 887-977508-09-2023 Discharge summary Author Jann Hoffmann [facility] November 08, 2022 10:56am Note Date/Time November 08, 2022 8:4 6am [facility] Medical Records Department [address] [place] [address] Emergency Department Summary 11/08/22 MR#: [id number] Acct: [id number] Name: SHOLA MARTINEZ Rep #:[id number] : [...] chest pain or difficulty breathing. No headaches. [facility] Medical History (Updated 11/08/22 @ 10:55 by [...] 88.3 H Lymph % (Auto) 5.4 L Sioux % (Auto) 4.8 Eos % (Auto) 0.8 [...] Clarity Clear Urine pH 5.0 Ur Specific [place] 1.020 Urine Protein 15 H Urine Glucose [...] rhythm with a rate of 78. Normal [place] and QTc intervals. Left axis deviation. No acute ST changes. Slight widening of the QRS with a nonspecific intraventricular conduction delay. Interpreted by emergency doctor Discharge Plan Triage Chief Complaint: General Illness ED Provider: Jann Hoffmann Dx/Rx/DC Orders Clinical Impression: Acute dehydration, Hyperbilirubinemia, Hyperglycemia, Nausea Instructions: Dehydration Primary Care Provider: Jessica Alvarez PLANT GUARD Referrals: Jessica Alvarez PLANT GUARD, PLANT GUARD-C [Primary Care Provider] - 3-5 Days Disposition Disposition: Assisted Living What to do if you have Problems For any increased pain, shortness of breath, bleeding, nausea or vomiting, chestpain, or any unexpected problems, contact your Primary Care Provider. Call [facility] ([phone]) or report to the closest Emergency Room. Call 911 if necessary. 11/08/22 1056 <Electronically signed by Jann Hoffmann MD> Cosigner Signature (if applicable): CC: TARI Alvarez ~ [facility]igned [facility] Work Phone: [phone]) 778-246201-29-2022 Hospital Discharge instructions Patient Education 04/30/2021 07:39:48 [...] wet, you can dry it with a chairman president and chief executive officer on a cool setting. You may use [...] around cast becomes red, swollen, or irritated 2971-6509 [employer]. [address] [place] [address]. All rights reserved. This information is not intended as a substitute for professional medical care. Always follow yourhealthcare professional's instructions. Follow Up Care 04/30/2021 07:20:30 With:DO ANIBAL NOLASCO DO Address: When:3-5 days [facility] 12-03-2021 Note. MICRO - Microbiology PROCEDURE: Blood [...] Locations *1: This test was performed at: [address], [id number] [place] [address] ([place])03-04-2021 Note. MICRO - Microbiology PROCEDURE: Blood Culture [...] Locations *1: This test was performed at: [address], [address]- , [facility] ([place])02-28-2021 Hospital Discharge instructions Patient Education 02/28/2021 13:15:37 Nasal Fracture, Zgil-wu-Vjff Nasal Fracture A fracture is a break [...] minutes, 2 3 times a day. Take cnxf-pbz-oariqcu and prescription medicines only as told by [...] 12/26/2008 Document Revised: 08/20/2018 Document Reviewed: 08/20/2018 [employer] Patient Education 2020 [employer] 02/28/2021 13:15:21 Fall Prevention and Home Safety, Gzou-ho-Rnqi Fall Prevention and Home Safety Falls cause [...] 01/13/2010 Document Revised: 09/17/2012 Document Reviewed: 06/18/2012 [facility] Patient Information [address] [facility]. This information is not intended to replace advicegiven to you by your health care provider. Make sure you discuss any questions you have with your health care provider. Follow Up Care 02/26/2021 17:06:54 With:Follow up with primary care provider Address: When:3-5 days [facility] 11-28-2021 Note. MICRO - Microbiology PROCEDURE: Legionella [...] Locations *1: This test was performed at: [facility], [address] [place] [address], [address] , [facility] ([place])02-27-2021 Note. MICRO - Microbiology PROCEDURE: Streptococcus Pneumoniae [...] Locations *1: This test was performed at: [facility], [address] [place] [address], [facility]- , [facility] ([place])02-27-2021 Evaluation + Plan noteExtracted from: Title:History and Physical Author:CROW CLIFFORD SLIP COVER ESTIMATOR-GAMING FLOOR SUPERVISOR Date:02/27/21 1. COPD without exacerbation 2. Altered mental status 3. Frequent falls 4. History of COVID-19 5. Type 2 diabetes mellitus 6. HTN (hypertension) 7. 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 CHIRAG (obstructive sleep apnea) 9. [...] 24 hours with anticipated discharge back to halfway facility tomorrow. Hypertension continue home medications. SBP goal 140 or less. CAD Information from continue Imdur and Plavix CHIRAG no history of CPAP use. Chronic O2 via nasal cannula at 3 L/min. Comminuted nasal bone fracture status post fall. Supportive measures with analgesics, ice. Patient denies any pain or discomfort. Labs, diagnostics reviewed as noted in HPI or A/P. External records reviewed via [employer]. Code Status: Full code Clinically patient is improved today from time of admission. We will continue to closely monitor patient. Discussed with collaborating physician, Dr. Au This document was transcribed using a voice recognition software and may contain typographical errors. Diagnostic Tests Pending * Theophylline Level Panel 03/01/21 [facility] 11-22-2021 NoteHNO ID: [id number] Author: Hammad Newton RN Service: ? Author Type: Registered Nurse Type: Progress Notes Filed: 02/21/2021 2:07 PM Note Text: COVID COMMUNITY MONITORING PROGRAM Provider Action/FYI: Did not contact patient. Not appropriate for COVID monitoring as patient currently in facility. Hammad Newton RN February 21, 2021 2:[address] [facility]11-22-2021 NotePatient Outreach (QAINDP) SHOLA MARTINEZ ([id number]) 1950 M Date Time Provider Department 02/21/21 HAMMAD NEWTON QAINDP During your visit today, we recorded the following information about you: Hammad eNwton RN 02/21/2021 2:07 PM Signed COVID COMMUNITY MONITORING PROGRAM Provider Action/FYI: Did not contact patient. Not appropriate for COVID monitoring as patient currently in facility. Hammad Newton RN February 21, 2021 2:07 PM Allergies As of Date: 02/21/2021 (No Known Allergies) Date Reviewed: 02/17/2021 Reviewed by: Jalen Cunningham RN - Fully Assessed Reason for Visit: Covid [...] 02/15/2021 Encounter Status:Closed by HAMMAD NEWTON on 02/21/21[facility]11-19-2021 NoteHNO ID: [id number] Author: Lis Garcia RN Service: Nursing Author Type: Registered Nurse Type: Nursing Progress Note Filed: 02/18/2021 5:10 PM Note Text: Report called to [facility]2021 NoteHNO ID: [id number] Author: Loren Muir RN Service: Care Management Author Type: Registered Nurse Type: Care Mgt Progress Note Filed: 02/18/2021 1:35 PM Note Text: CARE MANAGEMENT DISCHARGE NOTE SERVICE DATE: 02/18/2021 SERVICE TIME: 1:32 PM LOS: 3 days Admission Date: 02/14/2021 DISCHARGE ARRANGEMENT (list agency and phone number) Discharge Arrangement: Fdc Facility Was an expedited discharge program used?: No Provider Name: [facility] CAREGIVER ASSESSMENT: Caregiver is ready, willing and able to meet the patient's needs as recommended by the inter-professional team:: Yes Does the patient have an acute stroke diagnosis, or has the patient had a stroke during this admission?: No Patient's transition needs and plan for meeting these needs: SNF HANDOFF COMMUNICATION: TRANSPORTATION ARRANGEMENTS: Transportation Arrangements: Ambulance/[facility] Agency and Phone #:: [facility] ( [facility] ) [phone] / [phone] Date of Trip: 02/18/21 Time of Trip: 1700 Type of Service: BLS Non-emergency Is Patient Medicaid Pending?: No Discussion of financial coverage occurred with: Patient Private Branch Exchange Service Advisor Location: [facility] Destination: [facility] Financial Care Management Responsibility: None ADDITIONAL CONTACT RESOURCES: Discharge Information Row Name ED to Hosp-Admission (Current) from 02/14/2021 in [place] [facility] MEDICAL Fdc Facility Agency [facility] Patient discharged today. PT/OT recommending SNF, pt agreeable to [facility]. Precert completed, sent SNF 7000 and d/c summary. Pt will be going via cot from [employer] at 1700. Transport folder completed and on chart, RN notifed. Pt notified of d/c plans and agreeable. SIGNATURE: Loren Muir RN PATIENT NAME: Shola Martinez DATE: February 18, 2021 TIME: 1:32 PM PAGER/CONTACT #: [phone] [facility]11-19-2021 NoteHNO ID: [id number] Author: Carmina Rodriguez RPh Service: Pharmacy Author [...] RPh February 18, 2021 1:20 PM Pager: [phone] 02/18/2021 1:20 PM Medication List START taking [...] FLOMAX TRADJENTA 5 mg Tab Generic drug: [facility]inaGLIPtinNorthern [facility] Center11-19-2021 NoteHNO ID: [id number] Author: Lis Garcia RN Service: Nursing Author Type: Registered Nurse Type: Nursing Progress Note Filed: 02/18/2021 8:38 AM Note Text: Dr Ellis notified patient requesting something for [facility]11-18-2021 NoteHNO ID: [id number] Author: Renny Tenorio DO Service: Hospital Medicine Author Type: Physician Type: Progress Notes Filed: 02/17/2021 5:16 PM Note Text: DEPARTMENT OF HOSPITAL MEDICINE PROGRESS NOTE SERVICE DATE: 02/17/2021 SERVICE TIME: 5:13 PM Hospital Medicine/Primary Attending: Renny Tenorio DO NIGHT AND WEEKEND COVERAGE: After 7pm please page [phone] CHIEF COMPLAINT: weakness SUBJECTIVE: Pt seen and examined. Denies CP, SOB, NVD, headache, fever/chills or abdominal pain today. Complains of weakness. Agreeable to SNF now. OBJECTIVE: PHYSICAL EXAM: BP 122/67 Pulse 60 Temp (Src) 97.3 (Oral) Resp 20 Ht 6' 2 (1.88m) Wt 248 lb (112.5kg) SpO2 95% [...] this note may have been generated using Med[employer] voice recognition software. Reasonable efforts were made to correct any dictation erro (more content not included)...[facility] 02-17-2021 NoteHNO ID: [id number] Author: Loren Muir RN Service: Care Management Author Type: Registered Nurse Type: Care Mgt Progress Note Filed: 02/17/2021 3:05 PM Note Text: CARE MANAGEMENT PROGRESS NOTE SERVICE DATE: 02/17/2021 SERVICE TIME: 3:01 PM LOS: 2 days Chart reviewed. PT/OT recs are for SNF, pt is agreeable. [facility] is able to accept and is foc. Precert has been started, agreeable to start now. Pt will need cot at d/c. CM to follow. SIGNATURE: Loren Muir RN PATIENT NAME: Shola Martinez DATE: February 17, 2021 TIME: 3:01 PM PAGER/CONTACT #: [phone] Maine Medical Center11-17-2021 NoteHNO ID: [id number] Author: Renny Tenorio DO Service: Hospital Medicine Author Type: Physician Type: Progress Notes Filed: 02/16/2021 1:43 PM Note Text: DEPARTMENT OF HOSPITAL MEDICINE PROGRESS NOTE SERVICE DATE: 02/16/2021 SERVICE TIME: 1:33 PM Hospital Medicine/Primary Attending: Renny Tenorio DO NIGHT AND WEEKEND COVERAGE: After 7pm please page [phone] CHIEF COMPLAINT: weakness SUBJECTIVE: Pt seen and examined. Feels weak today, but states finally able to get some oral intake today, denies CP, SOB at rest, vomiting, headache , fever/chills or abdominal pain. OBJECTIVE: PHYSICAL EXAM: BP 129/73 Pulse 62 Temp (Src) 97.7 (Oral) Resp 20 Ht 6' 2 (1.88m) Wt 248 lb (112.5kg) SpO2 95% [...] this note may have been generated using Medypal voice recognition software. Reasonable efforts were made to correct any dictation errors that resulted due to the (more content not included)...[facility]11-17-2021 NoteHNO ID: [id number] Author: Lis Garcia RN Service: Nursing Author Type: Registered Nurse Type: Nursing Progress Note Filed: 02/16/2021 12:13 PM Note Text: Multiple attempts for iv unsuccessful Technology Sales Representative to attempt as soon as possibleNorthern Maine Medical Center11-17-2021 NoteHNO ID: [id number] Author: Loren Muir RN Service: Care Management Author Type: Registered Nurse Type: Care Mgt Initial Assessment Filed: 02/16/2021 11:46 AM Note Text: CARE MANAGEMENT: ASSESSMENT AND DISCHARGE PLAN SERVICE DATE: February 16, 2021 SERVICE TIME: 11:41 AM PRIMARY CARE PHYSICIAN: Danie Sawyer MD ADMISSION STATUS: Inpatient Needs Prior to Discharge: To Be Determined;Desat Study;Equipment Delivery;OT/PT Evaluation MEDICAL: [employer] MEDICARE ASSURE HMO D SNP 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 Last discharge within 30 days: No Advance Directive: Current Advance Directive: None Reel Winder Attempted to Assist with AD Completion: Yes [...] Cane;Walker;Wheelchair Has the Patient Been in a Fdc Facility in the Past 30 days?: No SOCIAL: Living Arrangements: Home Lives With: Alone Primary Contact: Extended Emergency Contact Information Primary Emergency Contact: BradenMarge Mobile Relation: Sister Secondary Emergency Contact: Jessica Rodriguez [place] Relation: Relative Supportive Patient Contact:: Yes Contact [...] Completely I feel financially burdened by my bna-lc-rcsgla expenses for my prescription medication:: 0 - Disagree Completely Risk Score: 0 Patient is categorized as: Low risk < 2 Are you interested in bedside delivery of your medications? No Is Patient Psychosocially Complex?: No ASSESSMENT AND PLAN: Medical Needs: Medical Needs: None Psychosocial Needs: Psychosocial Needs: None FREEDOM OF CHOICE EXPLAINED: [place] of Choice Given: No Reason Not Given: Unable to complete with this assessment - revisit POTENTIAL TRANSITION PLANS To Be Determined Pt is from home alone +DME, +PCP, + RX, pt uses a wheelchair to get around apartment and is active with [facility] at home. Will send a return referral to [facility] care. Pt is on 2L [place] will send a referral to [facility], will need script and ambulatory at d/c. No remdesivir at this time. Pt states he will need transport at d/c. He has a ramp into apartment complex and elevator to his nuno. CM to follow clinical progress. SIGNATURE: Loren Muir RN PATIENT NAME: Shola Martinez DATE: February 16, 2021 TIME: 11:41 AM PAGER/CONTACT #: [phone] Maine Medical Center11-16-2021 NoteHNO ID: [id number] Author: Ashli Parson (Aquaculture Farmer) Service: Pharmacy Author Type: 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 Type: Plan of Care Filed: 02/15/2021 11:27 AM Note Text: PHARMACY MEDICATION REVIEW Patient Name: Shola Martinez : 1950 The following medications were updated within the RN WOUND CARE medication list: Medications ADDED to RN WOUND CARE medication list albuterol HFA (PROVENTIL HFA, VENTOLIN [...] 24 hr tablet ? Medications CHANGED on RN WOUND CARE medication list ? Medications REMOVED from RN WOUND CARE medication list atorvastatin (LIPITOR) 40 mg tablet [...] medication history: Yes Medication history completed by: 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: Ashli Parson (Aquaculture Farmer) Source of history: Patient: Reliability of source: Appears reliable, clearly identified: Medication name, Medication dose, Medication route and Medication frequency, Pharmacy records: [facility] [phone] and [facility] records Medication nonadherence identified: No barriers noted Reconciliation completed: No, pharmacist not yet reviewed Patient interested in Bedside Delivery Services or using OP Pharmacy at discharge? No Preferred outpatient pharmacy: [place] [address] [address] [facility] [phone] [id number] Allergies: No Known Allergies Prior to Admission medications as of 02/14/21 6271 Medication Sig Last Dose Taking albuterol HFA [...] as needed. Indications: PAIN Yes Ashli Parson (Aquaculture Farmer) [id number] 02/15/2021[facility]11-16-2021 Influenza virus A and B RNA and SARS-CoV-2 (COVID-19) N gene panel LILLIAN+probe (Resp)COVID 19 RESULT: SARS-CoV-2 (Agent of COVID-19) Detected by PCR. This test has been authorized by FDA under an Emergency Use Authorization (EUA). INFLUENZA A PCR: Negative for Influenza A by RT-PCR INFLUENZA B PCR: Negative for Influenza B by RT-PCRNorthern Maine Medical CenterComment on above: Performed By: #### [id number] ####[facility] LABORATORYCLIA [id number] [place] [address] [place] [id number] NoteHospitalist Discharge Summary Shola Martinez : 1950 [...] Community acquired pneumonia 04/2016 ? Diabetic neuropathy ([facility]) ? Dizziness after head injury 05/2013 ? Hx of blood clots ? Hyperlipidemia ? Hypertension ? Morbid obesity ([facility]) 05/21/2018 ? Recurrent UTI 02/03/2018 ? Sepsis due to gram-negative UTI ([facility]) 12/11/2017 ? Sleep apnea ? Type II [...] (36.5 ?C) (Temporal) Resp 18 Ht 6' 2 (1.88 m) Wt 266 lb (120.7 kg) [...] Discharge Medications: Shola Martinez Home Medication Instructions PEREZ:[id number] Printed on:02/01/21 3242 Medication Information Accu-Chek Softclix Lancets MISC TEST [...] wheelchair OZEMPIC, 0.25 O (more content not included)...[facility]11-02-2021 Hospital Discharge instructions* Discharge Instr - Activity* [...] at most local grocery stores, pharmacies, and [employer]-stores. If you have any questions about your [...] for further instructions Favian Trevizo MD PhD [address] / [place] [address] RED ZONE: Medical Alert Severe or unrelieved [...] Where can you learn more? Go to [email or web address] and sign in to your Everyone Counts account. Enter Q823 in the Search Health Information box to learn more about Dizziness: Care Instructions. If you do not have an account, please click on the Sign Up Now link. Current as of: September 30, 2020 Content Version: 13.0 [employer]. Care instructions adapted under license by [employer]. If you have questions about a medical condition or this instruction, always ask your healthcare professional. [employer] disclaims any warranty or liability for your use of this information. * Attachments The following attachments cannot be sent through Care Everywhere. * Dizziness (Ethiopian) * Lightheadedness or Faintness (Ethiopian) documented in this encounterSUMMA Work Phone: 1(868) 739-213811-02-2021 History of Present illness Narrative* Elyse Whitney MD - 02/01/2021 8:33 AM EDT Images from the original note were not included. Hospitalist Progress Note 02/01/2021 8:33 AM [phone]: Please page me ([phone]) for patient care issues. [phone]: Please page IMS night Hospitalist for any issues. Subjective: Admit Date: 01/30/2021 PCP: Favian Trevizo MD PhD Room#: 257/2571 Interval History: No overnight issues. Patient lying [...] 09/12/2019 Community acquired pneumonia 04/2016 Diabetic neuropathy ([facility]) Dizziness after head injury 05/2013 Hx of blood clots Hyperlipidemia Hypertension Morbid obesity ([facility]) 05/21/2018 Recurrent UTI 02/03/2018 Sepsis due to gram-negative UTI ([facility]) 12/11/2017 Sleep apnea Type II or unspecified [...] (36.5 C) (Temporal) Resp 18 Ht 6' 2 (1.88 m) Wt 266 lb (120.7 kg) [...] strength of b/l upper and lower extremities. Manager Project strength equal bilaterally. Sensation intact in UE [...] of Hospitalist Medicine Inpatient Medical Services PAGER: [phone] * Yolanda Hooker DTR - 02/01/2021 7:31 AM EDT Nutrition rescreen complete. Pt assigned a level one for nutrition care. * Nataliya Quevedo, BERNA - 01/31/2021 10:08 AM EDT Occupational Therapy [...] GFR 60-89ml/min, Community acquired pneumonia, Diabetic neuropathy ([facility]), Dizziness, Hx of blood clots, Hyperlipidemia, Hypertension, Morbid obesity ([facility]), Recurrent UTI, Sepsis due to gram-negative UTI ([facility]), Sleep apnea, Type II or unspecified type [...] with wc) Transfer Assistance: Needs assistance Active Food Technologist: No Objective Vision: Impaired Vision Exceptions: Wears [...] 01/31/2021 10:02 AM EDT Physical Therapy Facility/Department: [facility] Initial Assessment NAME: Shola Martinez : 1950 [...] by increased lightheadedness and decreased safety. Recommend C PT and assist PRN upon discharge. PT [...] of blood clots, Hyperlipidemia, Hypertension, Morbid obesity ([facility]), Recurrent UTI, Sepsis due to gram-negative UTI ([facility]), Sleep apnea, Type II or unspecified type [...] with wc) Transfer Assistance: Needs assistance Active Food Technologist: No Cognition Cognition Overall Cognitive Status: WFL [...] In 900 (co-eval with OT) Time Out 0919 Minutes 18 Carmen Christensen PT * Elyse Whitney MD - 01/31/2021 8:50 AM EDT Images from the original note were not included. Hospitalist Progress Note 01/31/2021 8:50 AM [phone]: Please page me ([phone]) for patient care issues. [phone]: Please page [facility] night Hospitalist for any issues. Subjective: Admit [...] 09/12/2019 Community acquired pneumonia 04/2016 Diabetic neuropathy ([facility]) Dizziness after head injury 05/2013 Hx of blood clots Hyperlipidemia Hypertension Morbid obesity (HCC) 05/21/2018 Recurrent UTI 02/03/2018 Sepsis due to gram-negative UTI ([facility]) 12/11/2017 Sleep apnea Type II or unspecified [...] strength of b/l upper and lower extremities. Manager Project strength equal bilaterally. Sensation intact in UE [...] of Hospitalist Medicine Inpatient Medical Services PAGER: [phone] * Ruben Leslie - 01/31/2021 7:55 AM EDT Speech Language Pathology Patient passed the Nursing Swallowing Screening and is on a Regular diet. Completed speech orders per stroke protocol. Please reconsult as necessary. Ruben Leslie Student Speech-Language Pathologist [facility] Work Phone: 1(336) 411-837907-08-2021 NoteDischarge Summary Shola Martinez : 1950 ADMIT DATE: 09/30/2020 DISCHARGE DATE: [...] neck, echocardiogram CONSULTANTS: Neurology RECOMMENDED NEXT STEPS: [facility]. Continue aspirin and plavix. Statin increased. Follow [...] DISCHARGE MEDICATIONS: Shola Martinez Home Medication Instructions PEREZ:[id number] Printed on:10/07/20 5586 Medication Information Accu-Chek Softclix Lancets MISC TEST [...] Complexity: follow up within 7-14 calendar days (98540) [] Severe Complexity: follow up within 7 calendar days (02644) FOLLOW UP TESTING, PENDING RESULTS OR REFERRALS AT TRANSITIONAL CARE VISIT: [] Yes [] No PENDING STUDIES: No DISPOSITION: Home FACILITY/HOME CARE AGENCY NAME: Follow up with Favian Trevizo MD PhD [id number] [facility] [address] Schedule an appointment as soon as possible for a visit in 1 week INSTRUCTIONS TO MA/SW: Please call patient on day after discharge (must document patient contacted within 2 business days of discharge). FOLLOW UP QUESTIONS FOR MA/SW: 1. Did you get medications filled and taking them as instructed from (more content not included)...[facility] Diagnosis Lightheadedness- Primary Dizziness and giddiness Lightheaded Dizziness and giddiness documented in this encounter [facility] Work Phone: Evaluation noteNo assessment information available [facility] Work Phone: Evaluation note* Diagnosis Onset Date Resolution Status Adult failure to thrive acut e [facility] Work Phone: Hospital course Narrative No data available for this section [facility] Discharge instructions No data available for this section [facility] [place] Progress note No data available for this section [facility] [place] Summary Purpose Family History No Family History Records Found Relationship Condition Age at Onset Recorded Date/T wilmer mother Diabetes mellitus Unknown Malignant neoplasm Unknown father Diabetes mellitus Unknown Advance Directives No Advanced Directives Records FoundDocuments on File Type Date Recorded Patient [employer]fu[employer] Product Development Manager Expl anation Advance Directives and Living Will Power of Mental Health Professional Latest Code Status on File Code Status Date Activated Date Inactivated Comments Full Code 11/30/2018 3:23 PM Full Code 08/27/2018 10:38 AM 08/27/2018 2:59 PM Full Code 08/27/2018 7:43 AM 08/27/2018 10:38 AM Full Code 07/30/2018 3:42 PM 07/30/2018 8:09 PM Full Code 07/30/2018 10:55 AM 07/30/2018 3:42 PM Documents on File Type Date Recorded Patient [employer]fuels Product Development Manager Expl anation Advance Directives and Living Will Power of Mental Health Professional Latest Code Status on File Code Status [...] Documents on File Type Date Recorded Patient Biofuels Product Development Manager Expl anation ACP-Advance Directive ACP-Power of Mental Health Professional Latest Code Status on File Code Status [...] Documents on File Type Date Recorded Patient [employer]fu[employer] Product Development Manager Expl anation Advance Directive(s) 02/14/2021 11:43 PM Advance Directive Response Recorded Date/ Time Living Will No October 03, 2022 6 :56am Power of Mental Health Professional No October 03, 2022 6:56am Advance Directive Response Recorded Date/ Time Living Will No November 08, 2022 4:59pm Power of Mental Health Professional No November 08 4:59pm Advance Directive Response Recorded Date/ Time Living Will No November 08, 2022 9:12pm Power of Mental Health Professional No November 08 9:12pm Discharge Instructions * [...] Contact Information Primary Emergency Contact: lily tuttle [facility] Relation: Brother/Sister Past Surgical History: Past Surgical History: Procedure Laterality Date APPENDECTOMY 1989 CATARACT REMOVAL CHOLECYSTECTOMY 08/2015 CORONARY ANGIOPLASTY 09/2016 EYE SURGERY Left 08/27/2018 FOOT SURGERY Left great toe and next toe removed HERNIA REPAIR 1991 OTHER SURGICAL HISTORY Right 07/30/2018 PHACOemulisification pupilloplasty malyugin right posterior chamber intraocular lens TONSILLECTOMY 1955 Immunization History: Immunization History Administered Date(s) Administered Pneumococcal Conjugate 13-valent (Coioqec25) 08/10/2016 Pneumococcal Polysaccharide (Lbrguscmp52) 07/22/2012, 10/16/2017 Td, unspecified formulation 08/31/1992 Tdap (Boostrix, Adacel) 05/27/2007, 01/17/2018 Active Problems: Patient Active Problem List Diagnosis Code Weakness generalized R53.1 Diabetic neuropathy ([facility]) E11.40 Diabetes mellitus type 2, uncontrolled ([facility]) E11.65 Constipation K59.00 Hyperlipidemia associated with type 2 diabetes mellitus ([facility]) E11.69, E78.5 Diabetes mellitus type 2 without retinopathy ([facility]) E11.9 Senile cataracts of both eyes H25.9 Blepharitis of both eyes H01.003, H01.006 Blurred vision, bilateral H53.8 Myopia of both eyes with astigmatism and presbyopia H52.13, H52.203, H52.4 Heterozygous MTHFR mutation C677T ([facility]) E72.12 Benign prostatic hyperplasia with incomplete bladder emptying N40.1, R39.14 CHIRAG (obstructive sleep apnea) G47.33 Essential hypertension I10 History of DVT (deep vein thrombosis) Z86.718 History of amputation of toe ([facility]) Z89.429 Morbid obesity ([facility]) E66.01 Chronic respiratory failure with hypoxia ([facility]) J96.11 Chronic diastolic heart failure ([facility]) I50.32 Dermatochalasis of both upper eyelids H02.831, [...] (37 C) (Temporal) Resp 19 Ht 6' 2 (1.88 m) Wt 299 lb 8 oz (135.9 kg) SpO2 97% BMI 38.45 kg/m Last documented pain score (0-10 scale): Pain Level: 0 Last Weight: Wt Readings from Last 1 Encounters: 12/02/18 299 lb 8 oz (135.9 kg) Mental Status: oriented and alert IV Access: - None Nursing Mobility/ADLs: Walking Assisted Transfer Assisted Bathing Assisted Dressing Assisted Toileting Independent Feeding Independent Disability Insurance Hearing Officer Independent Med Delivery whole Wound Care Documentation [...] Readmission: 14 Discharging to Facility/ Agency Name: [place] [address] Dialysis Facility (if applicable) Name: Address: Dialysis Schedule: Phone: Fax: Small Craft Operator/Family And Consumer Education Teacher signature: ICIAN SECTION Prognosis: Good Condition at Discharge: Stable Rehab Potential (if transferring to Rehab): Good Recommended Labs or Other Treatments After Discharge: CBC,BMP in one week Physician Certification: I certify the above information and transfer of Shola Martinez is necessary for the continuing treatment of the diagnosis listed and that he requires Fdc Facility for less 30 days. Update Admission H&P: No change in H&P PHYSICIAN SIGNATURE: documented in this encounter* Attachments The following attachments cannot be sent through Care Everywhere. * Head Injury: Closed: General Info (Ethiopian) documented in this encounter* Discharge Instr - Lab* Kristy Hooker LPN - 09/14/2019 12:52 PM EDT Your physician has ordered skilled home care services for you. Your home care will be provided by: [facility] [phone] [facility] [phone] * Discharge Instr - DAMON* Praneeth Reyes MD - 09/14/2019 12:12 PM EDT Continuity of Care Form Patient Name: Shola Martinez : 1950 Admit date: 09/12/2019 Discharge date: Code Status Order: Full Code Advance Directives: Advance Care Flowsheet Documentation Date/Time Healthcare Directive Type of Healthcare Directive Copy in Chart Healthcare Agent Appointed Healthcare Agent's Name Healthcare Agent's Phone Number 09/12/19 [phone] No, patient does not have an advance directive for healthcare treatment -- -- -- -- -- Admitting Physician: Shea Aguilar MD PCP: Favian Trevizo MD PhD Discharging Nurse: Discharging Hospital Unit/Room#: 456/4561 Discharging Unit Phone Number: Emergency Contact: Extended Emergency Contact Information Primary Emergency Contact: lily tuttle [facility] Relation: Brother/Sister Past Surgical History: Past Surgical [...] yrs and older) 01/09/2019 Pneumococcal Conjugate 13-valent (Usowigd00) 08/10/2016 Pneumococcal Polysaccharide (Fydsiqsiq21) 07/22/2012, 10/16/2017 Td, unspecified formulation 08/31/1992 Tdap (Boostrix, Adacel) 05/27/2007, 01/17/2018, 09/02/2019 Active Problems: Patient Active Problem List Diagnosis Code Weakness generalized R53.1 Diabetic neuropathy ([facility]) E11.40 Diabetes mellitus type 2, uncontrolled ([facility]) E11.65 Constipation K59.00 Hyperlipidemia associated with type 2 diabetes mellitus ([facility]) E11.69, E78.5 Blepharitis of both eyes H01.003, H01.006 Blurred vision, bilateral H53.8 Myopia of both eyes with astigmatism and presbyopia H52.13, H52.203, H52.4 Heterozygous MTHFR mutation C677T ([facility]) E72.12 Benign prostatic hyperplasia with incomplete bladder emptying N40.1, R39.14 CHIRAG (obstructive sleep apnea) G47.33 Essential hypertension I10 UTI (urinary tract infection) N39.0 History of DVT (deep vein thrombosis) Z86.718 History of amputation of toe ([facility]) Z89.429 Class 2 severe obesity due to excess calories with serious comorbidity and body mass index (BMI) of37.0 to 37.9 in adult ([facility]) E66.01, Z68.37 Chronic respiratory failure with hypoxia ([facility]) J96.11 Chronic diastolic heart failure ([facility]) I50.32 Dermatochalasis of both upper eyelids H02.831, H02.834 Lung nodule, multiple R91.8 Small pupil H57.03 Chronic obstructive pulmonary disease ([facility]) J44.9 Pseudophakia of both eyes Z96.1 CKD [...] (36.7 C) (Temporal) Resp 20 Ht 6' 2 (1.88 m) Wt 282 lb 14.2 oz (128.3 kg) SpO2 98% BMI 36.32 kg/m Last documented pain score (0-10 scale): Pain Level: 0 Last Weight: Wt Readings from Last 1 Encounters: 09/12/19 282 lb 14.2 oz (128.3 kg) Mental Status: oriented, alert and coherent IV Access: - None Nursing Mobility/ADLs: Walking Assisted Transfer Assisted Bathing Assisted Dressing Assisted Toileting Assisted Feeding Independent Disability Insurance Hearing Officer Dependent Med Delivery whole Wound Care Documentation [...] Readmission: 0 Discharging to Facility/ Agency Name: [facility] Address: [address] [place] [id number] Dialysis Facility (if applicable) Name: Address: Dialysis Schedule: Phone: Fax: Small Craft Operator/Family And Consumer Education Teacher signature: PHYSICIAN SECTION Prognosis: Good Condition at Discharge: Stable Rehab Potential (if transferring to Rehab): Good Recommended Labs or Other Treatments After Discharge: PT/OT atleast three times daily. BMP/CBC on 09/19/2019 Physician Certification: I certify the above information and transfer of Shola Martinez is necessary for the continuing treatment of the diagnosis listed and that he requires Fdc Facility for less 30 days. Update Admission [...] Everywhere. * Coronavirus Disease (COVID-19): General Info (Ethiopian) * Coronavirus Disease (COVID-19): Isolation (Ethiopian) documented in this encounter* Attachments The following attachments cannot be sent through Care Everywhere. * Fall Prevention (Ethiopian) * Head Injury: Closed: General Info (Ethiopian) * Back: Strain (Ethiopian) documented in this encounter History of Present [...] Accumulation-Moderate to severe fluid accumulation, Extremities 6. Manager Project Strength-Not measured Nutrition Risk Level: High Nutrient Needs: Estimated Daily Total Kcal: 1463-2679 kcals(25-30) Estimated Daily Protein (g): 86-103(1-1.2) Estimated [...] (ONS) Orders: None Anthropometric Measures: Ht: 6' 2 (188 cm) Current Body Wt: 299 lb (135.6 kg) Admission Body Wt: 299 lb (135.6 kg) Usual Body Wt: 290 lb (131.5 kg)(09/14/18) % Weight Change: , no wt loss Pinson Body Wt: 190 lb (86.2 kg), % Pinson Body 157% BMI Classification: BMI 35.0 - [...] appropriate. Date of Service: 12/03/2018 Discharge Recommendations: Subacute/Fdc Facility OT Equipment Recommendations Equipment Needed: No Assessment Performance deficits / Impairments: Decreased functional mobility ;Decreased ADL status;Decreased strength;Decreased safe awareness;Decreased cognition;Decreased endurance;Decreased balance;Decreasedhigh-level IADLs Assessment: Pt previously lived alone in an apartment, completing ADLs and IADLs at [facility] independently. Pt presents with increased risk for [...] disease (HCC), Community acquired pneumonia, Diabetic neuropathy ([facility]), Dizziness, Hx of blood clots, Hyperlipidemia, Hypertension, Morbid obesity ([facility]), Recurrent UTI, Sepsis due to gram-negative UTI ([facility]), Sleep apnea, Type II or unspecified type [...] household distances ) Transfer Assistance: Independent Active Food Technologist: No Patient's Food Technologist Info: SCAT Occupation: Retired Objective Vision: Within [...] Toileting: Moderate assistance(MIN A for transfer to [facility], assist for all parts due to fatigue) [...] Inpatient Daily Activity Raw Score: 16 (12/03/18 1231) AM-PAC Inpatient ADL T-Scale Score : 35.96 (12/03/18 1231) ADL Inpatient CMS 0-100% Score: 53.32 (12/03/18 1231) ADL Inpatient CMS G-Code Modifier : CK (12/03/18 123) Goals Short term goals Time Frame for Short term goals: 4 visits Short term goal 1: Pt will complete LB ADLs at [facility]. Short term goal 2: Pt will complete functional transfers and mobility at [facility] with MOD INDEP. Short term goal 3: Pt will complete toileting tasks at [facility] with MOD INDEP. Short term goal 4: Pt will lidia >4 minutes of functional standing at [facility] during ADLs at [facility]. Short term goal 5: Pt will lidia B UE ther exe to promote strength and activity tolerance for daily routine. Patient Goals Patient goals : improve indep with daily routine Therapy Time Individual Concurrent Group Co-treatment Time In 1123 Time Out 1133 Minutes 10 Hazel Orozco OT * Padmini Callejas, PT - 12/03/2018 11:59 AM EDT Physical Therapy Facility/Department: [facility] Initial Assessment NAME: Shola Martinez : 1950 Date of Service: 12/03/2018 Discharge Recommendations: Continue to assess pending progress, Subacute/Fdc Facility PT Equipment Recommendations Equipment Needed: No [...] of blood clots, Hyperlipidemia, Hypertension, Morbid obesity ([facility]), Recurrent UTI, Sepsis due to gram-negative UTI ([facility]), Sleep apnea, Type II or unspecified type [...] household distances ) Transfer Assistance: Independent Active Food Technologist: No Patient's Food Technologist Info: SCAT Occupation: Retired Objective Observation/Palpation Posture: [...] for falls, Nurse notified, Left in bed [facility] Score [facility] Inpatient Mobility Raw Score : 15 (12/03/181150) [facility] Inpatient T-Scale Score : 39.45 (12/03/181150) Mobility Inpatient CMS 0-100% Score: 57.7 (12/03/181150) Mobility Inpatient CMS G-Code Modifier : CK (12/03/181150) [facility] Mobility Inpatient How much difficulty turning over [...] 3-5 steps with a railing?: A Lot [facility] Inpatient Mobility Raw Score : 15 [facility] Inpatient T-Scale Score : 39.45 Mobility Inpatient [...] EDT Hospitalist Progress Note 12/02/2018 1:16 PM [phone]: Please page nc @ [phone] for patient care issues. [phone]: Please page [facility] night Hospitalist for any issues. Subjective: Admit [...] (37 C) (Temporal) Resp 20 Ht 6' 2 (1.88 m) Wt299 lb 8 oz (135.9 [...] Meléndez MD - 12/01/2018 9:[address] [facility] Progress Note 12/01/2018 09:35 AM Name: Shola Martinez IP Day: 0 Admit Date: 11/30/2018 10:11 AM PCP: Favian Trevizo MD PhD Code Status: Full Code Subjective: Dyspnea on exertion. No chest pain. Dry cough Physical Examination: Vitals: BP 124/67 Pulse 90 Temp 100.1 F (37.8 C) (Temporal) Resp 20 Ht 6' 2 (1.88 m) Wt (!) 302 lb 14.4 [...] 09/16/2019 6:41 PM EDT Report called to [facility]. Pt belongings gathered and ready to go * Shea Aguilar MD - 09/15/2019 1:27 PM EDT Hospitalist Progress Note 09/15/2019 1:27 PM Throughout the encounter I wore an N95 MASK, FACE SHIELD [phone]: Please page me @ [phone] for patient care issues. [phone]: Please page [facility] night Hospitalist for any issues. Subjective: Admit [...] Recent Labs 09/13/19 0420 09/14/19 0339 09/15/19 0412 WBC 10.4 9.2 8.2 RBC 3.80* 4.19* [...] (36.7 C) (Temporal) Resp 18 Ht 6' 2 (1.88 m) Wt 282lb 14.2 oz (128.3 [...] injury 05/2013 Plan : [facility] done with [facility], encouraged oral intake, COVID test negative All test and lab results reviewed Consult notes reviewed Am labs, replace lytes prn PT/OT -DVT prophylaxis: [x] Lovenox [] Heparin [] SCDs [x] Encourage ambulation [] Already on Anticoagulation Advance Directive: Full Code Discharge planning: TBD SHEA AGUILAR MD, MD Division of Hospitalist Medicine Inpatient Medical Services This report was created using the Cap That Speaking voice- activated system. Despiteprompt dictation and careful editorial review, there may be subtle contextual errors in this report, due to misrecognition of the spoken word. * Padmini Palmer, PT - 09/15/2019 9:39 AM EDT Physical Therapy Facility/Department: [facility] Daily Treatment Note NAME: Shola Martinez : 1950 Date of Service: 09/15/2019 Discharge Recommendations: Continue to assess pending progress, Subacute/Fdc Facility(if patient goes home [facility] PT) Assessment Assessment: Pt demonstrated need [...] artery disease), Cataract, Chronic obstructive pulmonary disease ([facility]), CKD (chronic kidney disease) stage 2, GFR 60-89ml/min, Community acquired pneumonia, Diabetic neuropathy ([facility]), Dizziness, Hx of blood clots, Hyperlipidemia, Hypertension, Morbid obesity ([facility]), Recurrent UTI, Sepsis due to gram-negative UTI ([facility]), Sleep apnea, Type II or unspecified type [...] of activity with poor follow thru AM-PAC [facility] Mobility Inpatient How much difficulty turning over [...] climbing 3-5 steps with a railing?: Total [facility] Inpatient Mobility Raw Score : 15 [facility] Inpatient T-Scale Score : 39.45 Mobility Inpatient [...] ex) Jessica Bose PTA (completed treatment) (updated [facility]) * Shea Aguilar MD - 09/14/2019 1:10 PM EDT Hospitalist Progress Note 09/14/2019 1:10 PM Throughout the encounter I wore an N95 MASK, FACE SHIELD [phone]: Please page me @ [phone] for patient care issues. [phone]: Please page [facility] night Hospitalist for any issues. Subjective: Admit [...] (36.7 C) (Temporal) Resp 20 Ht 6' 2 (1.88 m) Wt 282lb 14.2 oz (128.3 [...] Services This report was created using the Cap That Speaking voice- activated system. Despiteprompt dictation and [...] appropriate. Date of Service: 09/14/2019 Discharge Recommendations: Subacute/Fdc Facility Assessment Performance deficits / Impairments: Decreased [...] GFR 60-89ml/min, Community acquired pneumonia, Diabetic neuropathy ([facility]), Dizziness, Hx of blood clots, Hyperlipidemia, Hypertension, Morbid obesity ([facility]), Recurrent UTI, Sepsis due to gram-negative UTI ([facility]), Sleep apnea, Type II or unspecified type [...] pleasant and cooperative. General Comment Comments: Per RNmatthew for pt to participate in OT eval. [...] Ambulation Assistance: Independent(FWW) Transfer Assistance: Independent Active Food Technologist: No Objective Vision: Within Functional Limits Hearing: [...] BSC with instability, however, no true LOB. CHIEF VENDOR QUALITY reported ambulating pt to bathroom yesterday, however, pt with significantly impaired balance in which pt had to be wheeled from bathroom with w/c. Toilet Transfers Toilet - Technique: Ambulating Equipment Used: Standard bedside commode Toilet Transfer: Minimal assistance Toilet Transfers Comments: at [facility]- pt required VC for safe hand placement [...] assistance(assist for controlled descent) Transfer Comments: at w- pt required VC for safe hand placement [...] Inpatient Daily Activity Raw Score: 21 (09/14/19 123) AM-PAC Inpatient ADL T-Scale Score : 44.27 (09/14/19 123) ADL Inpatient CMS 0-100% Score: 32.79 (09/14/19 123) ADL Inpatient CMS G-Code Modifier : CJ (06/14/20 1235) Goals Short term goals Time Frame [...] 09/13/2019 1:41 PM EDT Physical Therapy Facility/Department: [facility] Initial Assessment NAME: Shola Martinez : 1950 HAVING REVIEWED THIS PATIENT TREATMENT AND GOALS ,I CERTIFY THAT THE PLAN OF CARE IS MEDICAL NECESSARY AND AND APPROPRIATE. Date of Service: 09/13/2019 Discharge Recommendations: Continue to assess pending progress, Subacute/Fdc Facility(if patient goes home C PT) PT [...] of blood clots, Hyperlipidemia, Hypertension, Morbid obesity ([facility]), Recurrent UTI, Sepsis due to gram-negative UTI ([facility]), Sleep apnea, Type II or unspecified type [...] Ambulation Assistance: Independent(FWW) Transfer Assistance: Independent Active Food Technologist: No Cognition Cognition Overall Cognitive Status: WFL Objective Observation/Palpation Posture: Fair Observation: IV AROM RLE (degrees) RLE AROM: WFL AROM LLE (degrees) LLE AROM : WFL Strength RLE Strength RLE: WFL Comment: 4/5 Strength LLE Strength LLE: WFL Comment: 07/05 Tone RLE RLE Tone: Normotonic Tone LLE [...] Restraints Initially in place: No OutComes Score -[facility] Mobility Inpatient How much difficulty turning over [...] climbing 3-5 steps with a railing?: Total [facility] Inpatient Mobility Raw Score : 18 [facility] Inpatient T-Scale Score : 43.63 Mobility Inpatient CMS 0-100% Score: 46.58 Mobility Inpatient CMS G-Code Modifier : CK AM-PAC Score [facility] Inpatient Mobility Raw Score : 18 (09/13/19 1341) [facility] Inpatient T-Scale Score : 43.63 (09/13/191340) Mobility Inpatient CMS 0-100% Score: 46.58 (09/13/191340) Mobility Inpatient [facility] G-Code Modifier : CK (09/13/191340) Goals Short [...] I wore an N95 MASK, FACE SHIELD [phone]: Please page me @ [phone] for patient care issues. [phone]: Please page [facility] night Hospitalist for any issues. Subjective: Admit [...] Medications: dextrose sodium chloride 75 mL/hr at 09/12/199 [START ON 09/18/2019] Semaglutide(0.25 or 0.5MG/DOS) 0.5 [...] (37.1 C) (Temporal) Resp 18 Ht 6' 2 (1.88 m) Wt 282 lb 14.2 oz [...] artery disease) Cataract Chronic obstructive pulmonary disease ([facility]) 08/20/2018 CKD (chronic kidney disease) stage 2, GFR 60-89 ml/min 09/12/2019 Community acquired pneumonia 04/2016 Diabetic neuropathy ([facility]) Dizziness after head injury 05/2013 Hx of blood clots Hyperlipidemia Hypertension Morbid obesity ([facility]) 05/21/2018 Recurrent UTI 02/03/2018 Sepsis due to gram-negative UTI ([facility]) 12/11/2017 Sleep apnea Type II or unspecified [...] Services This report was created using the Cap That Speaking voice- activated system. Despiteprompt dictation and [...] D deficiency Chronic respiratory failure with hypoxia (HCC) Chronic respiratory failure Diagnosis Subjective fever Diagnosis Closed head injury, initial encounter Fall, initial encounter Lumbar strain, initial encounter Reason for Referral Status Reason Specialty Diagnoses / Procedures Referred By Contact Referred To Contact Open Specialty Services Required Otolaryngology Diagnoses Injury of head, initial encounter Tyler Bermudez MD [address] [place] [address] [facility] [address] [place] [address] [address] Inst[address] [facility] [address] [place], [place] [address] F: [phone] Health Concerns Infection Onset Date Last Indicated [...] section and content) DATE CREATED AUTHOR 11/01/2017 [facility] DATE CREATED AUTHOR AUTHOR'S ORGANIZ ATION 09/08/2018 [facility] DATE CREATED AUTHOR AUTHOR'S ORGANIZ ATION 07/21/2020 [facility] DATE CREATED AUTHOR AUTHOR'S ORGANIZ ATION 03/06/2021 [facility] DATE CREATED AUTHOR AUTHOR'S ORGANIZ ATION 05/10/2021 [facility] CREATED AUTHOR AUTHOR'S ORGANIZ ATION 05/24/2021 [facility] ([place]) DATE CREATED AUTHOR AUTHOR'S ORGANIZ ATION 06/03/2021 [facility] DATE CREATED AUTHOR AUTHOR'S ORGANIZ ATION 05/31/2024 [facility] Reason for Visit (unrecogniz ed section and [...] or prosecute any alcohol or drug abuse patient.[facility] the event this information is protected by the Federal Confidentiality of Alcohol and Drug Abuse Patient Records regulations: The Federal rules restrict any use of the information to criminally investigate or prosecute any alcohol or drug abuse patient.[facility] Scheduled Active and Recently Administ ered Medications (unrecognized section and content) Medication Order 01/30/2021 01/31/2021 02/01/2021 0.9 % sodium chloride bolus (COMPLETED) 1,000 mL, IntraVENous, at 2,000 mL/hr, Administer over 0.5 Hours, ONCE, On Sun01/30/21 at 2046, For 1 dose 2048 (New Bag - Provider: Kirsten Noel, EMA)2118 (Stopped - Provider: Kirsten Noel, EMA) aspirin chewable tablet 81 mg 81 mg, Oral, DAILY, First dose on Sun01/31/21 at 0900 0918 (Given - Provider: Bhavani Amanda RN) 912 (Given - Provider: Cary Cintron RN) atorvastatin (LIPITOR) tablet 80 mg 80 mg, Oral, EVERY EVENING, First dose on Sun01/31/21 at 1800 0104 (Not Given - Provider: Adela Lopez RN - Reason: Patient/family refused)1800 (Due) cetirizine (ZYRTEC) tablet 5 mg 5 mg, Oral, DAILY, First dose on Sun01/31/21 at 0900, Substituted for Loratadine (CLARITIN). 0918 (Given - Provider: Bhavani Amanda RN) 911 (Given - Provider: Cary Cintron RN) clopidogrel (PLAVIX) tablet 75 mg 75 mg, Oral, DAILY, First dose on Sun01/31/21 at 0900 0918 (Given - Provider: Bhavani Amanda RN) 911 (Given - Provider: Cary Cintron RN) enoxaparin (LOVENOX) injection 40 mg 40 mg, SubCUTAneous, DAILY, First dose on Sun01/31/21 at 0900 0917 (Given - Provider: Bhavani Amanda RN) 911 (Given - Provider: Cary Cintron RN) isosorbide mononitrate (IMDUR) extended release tablet 30 mg 30 mg, Oral, DAILY, First dose on Sun01/31/21 at 0900, Do not crush or chew. 0918 (Given - Provider: Bhavani Amanda RN) 911 (Given - Provider: Cary Cintron RN) linagliptin (TRADJENTA) tablet 5 mg 5 mg, Oral, DAILY, First dose on Sun01/31/21 at 0900 0918 (Given - Provider: Bhavani Amanda RN) 912 (Given - Provider: Cary Cintron RN) losartan (COZAAR) tablet 25 mg 25 mg, Oral, EVERY MORNING, First dose on Sun01/31/21 at 0900 0919 (Given - Provider: Bhavani Amanda RN) 0913 (Given - Provider: Cary Cintron, EMA) senna (SENOKOT) tablet 17.2 mg 17.2 mg (2 tablet), Oral, DAILY, First dose on Sun01/31/21 at 0900 0918 (Given - Provider: Bhavani Amanda RN)0922 (Canceled Entry - Provider: Bhavani Amanda RN - Comment: duplicate entry) 09 (Given - Provider: Cary Cintron, EMA) sodium chloride flush 0.9 % injection 5-40 [...] RN)2100 (Due) 0913 (Given - Provider: Cary Cintron, EMA)2100 (Due) tamsulosin (FLOMAX) capsule 0.4 mg 0.4 mg, Oral, DAILY, First dose on Sun01/31/21 at 0900, Do not crush or break. 0922 (Given - Provider: Bhavani Amanda RN) 0912 (Given - Provider: Cary Cintron, EMA) PRN Medication Order 01/30/2021 01/31/2021 02/01/2021 0.9 [...] 5-40 mL, IntraVENous, PRN, Line Care, Per Tufting Supervisor Request, Starting on Sun01/31/21 at 0120, For 72 hours, May use order for Line Care after every IV line use and Agitated Saline Bubble Study. Administration for Bubble Study per bundle wrapper request for only. Remove 1 mL 0.9% [...] (38 C), Starting on Sun01/31/21 at 0108
Use suppository if NPO or failed swallow screen.
Care Teams (unrecognized sec tion and content) Team Status: Active Member Role Status Dates Jessica Alvarez PLANT GUARD, PLANT GUARD-C Primary Care Provider Act marie Team Status: Active Member Role Status Dates Jessica Alvarez PLANT GUARD, PLANT GUARD-C Primary Care Provider Act marie Dr. Yifan Meza , Emergency Provider Active Dr. Bridgett Villagomez MD Admit Provider, Other Provider Active Dr. Tanika Kunz MD Attending Provider, Other Prov ider Active Team Status: Inactive Member Role Status Dates Dr. Eduar Donahue DO Attending Provider, Emergency P fady Active Jessica Alvarez PLANT GUARD, PLANT GUARD-C Primary Care Provider Act marie Team Status: Inactive Member Role Status Dates Jessica Alvarez PLANT GUARD, PLANT GUARD-C Primary Care Provider Act marie Dr. Jann Hoffmann MD Emergency Provider Active Team Status: Inactive Member Role Status Dates Jessica Alvarez PLANT GUARD, PLANT GUARD-C Primary Care Provider Act marie Dr. Yifan Meza , Emergency Provider Active Dr. Bridgett Villagomez MD Admit Provider, Other Provider Active Dr. Tanika Kunz MD Attending Provider Active Government Affairs Fellow Relationship Specialty Start Date End Date Danie Sawyer MD PCP - General Internal Medicine 01/29/14 Team Status: Inactive Member Role Status Dates Dr. Eduar Donahue , Emergency Provider Active Jessica Alvarez PLANT GUARD, PLANT GUARD-C Primary Care Provider Act marie Team Status: Active Member Role Status Dates Jessica Alvarez PLANT GUARD, PLANT GUARD-C Primary Care Provider Act marie Dr. Yifan Meza DO Emergency Provider Active Dr. Bridgett Villagomez MD Admit Provider, Attending Prov ider Active Team Status: Inactive Member Role Status Dates Jessica Alvarez PLANT GUARD, PLANT GUARD-C Primary Car e Provider, Attending Provider, Referring Provider Active Team Status: Inactive Member Role Status Dates Jessica Alvarez PLANT GUARD, PLANT GUARD-C Primary Care Provider Act marie Dr. Jann Hoffmann MD Attending Provider, Emergency Pr ovider Active Care Team (unrecognized sect ion and content) Care Team Personnel Name: DANAY CASTILLO MD Position: P4 Physician - Primary Care Member Role: Primary Care Physician Address: Address: [address] [place] [address]- Care Team Related Persons Name: MARGE TUTTLE [...] BE BASED ON THE PRIMARY CLINICAL RECORDS. [facility] [employer] [facility]. provides no warranty or guarantee of the accuracy or completeness of information in this document.
--- NOTE | 2025-03-18 03:37 | EX.ED.DYSGE1 ---
HPI History of Present Illness Chief Complaint: Cold Sx Informant: patient and EMS Narrative Narrative: Patient is a 74-year-old male with past medical history of hypertension hyperlipidemia and rcu-dtybqfy-qelfgesrh type 2 diabetes. He states that he has simply not felt well today. He reports that he has had muscle aches and pains with nausea without vomiting and mild cough. He denies any known sick contacts. He states that he went to bed and when he woke up he felt worse. He reports he did not take any medication but was concerned he may have an infection called EMS and he was brought in for evaluation [facility] Medical History Adult failure to thrive Obesity Allergic rhinitis CKD (chronic kidney disease), stage II Former tobacco use COPD (chronic obstructive pulmonary disease) BPH (benign prostatic hyperplasia) Hyperlipemia HTN (hypertension) Diabetes Home Medications ?Medication ?Instructions ?Recorded ?Last Taken ?Type atorvastatin 80 mg tablet 80 mg PO QHS cholesterol 11/08/22 Unknown History cetirizine 5 mg tablet 5 mg PO QHS allergies 11/08/22 Unknown History cholecalciferol (vitamin D3) 125 5,000 unit PO QWEEK vitamin 11/08/22 Unknown History mcg (5,000 unit) tablet (Vitamin D3) clopidogrel 75 mg tablet 75 mg PO DAILY anti platelet 11/08/22 11/08/22 History icosapent ethyl 1 gram capsule 2 g PO BID triglycerides 11/08/22 Unknown History (Vascepa) isosorbide mononitrate 30 mg 30 mg PO DAILY heart 11/08/22 Unknown History tablet,extended release 24 hr linagliptin 5 mg tablet (Tradjenta) 5 mg PO DAILY diabetes 11/08/22 Unknown History losartan 25 mg tablet 25 mg PO DAILY blood pressure 11/08/22 Unknown History melatonin 5 mg tablet 5 mg PO QHS sleep 11/08/22 Unknown History metformin 500 mg tablet 500 mg PO BID diabetes 11/08/22 Unknown History montelukast 10 mg tablet 10 mg PO QHS allergies 11/08/22 Unknown History polyethylene glycol 3350 17 17 g PO .EVERY OTHER DAY 11/08/22 Unknown History gram/dose oral powder (Gavilax) constipation tamsulosin 0.4 mg capsule 0.8 mg PO DAILY prostate 11/08/22 Unknown History finasteride 5 mg tablet 5 mg PO DAILY #0 tabs 11/12/23 Unknown Rx doxycycline monohydrate 100 mg 100 mg PO BID 7 days #14 CAPSULES 03/18/25 Unknown Rx capsule ondansetron 4 mg disintegrating 4 mg PO TID PRN nausea and 03/18/25 Unknown Rx tablet vomiting #21 tabs Allergy/AdvReac Type Severity Reaction Status Date / Time No Known Allergies Allergy Verified 03/18/25 01:58 Family History Mother Diabetes Cancer Father Diabetes Cancer Surgical History History of herniorrhaphy Hx of cholecystectomy Hx of appendectomy Social History housing: assisted living facility Smoking Status: Former smoker alcohol intake: never substance use type: does not use ROS ROS ED Constitutional Constitutional ED: Denies chills or fever(s) ENT ENT ED: Reports rhinorrhea Cardiovascular Cardiovascular: Denies chest pain Respiratory/Chest Respiratory/Chest: Reports cough; Denies dyspnea Gastrointestinal Gastrointestinal: Reports nausea; Denies abdominal pain, diarrhea or vomiting Genitourinary Genitourinary ED: Denies dysuria Musculoskeletal Musculoskeletal: Reports myalgias Integumentary Denies rash Neurologic Neurologic: Reports weakness; Denies headache(s) Hematologic/Lymphatic Hematologic/Lymphatic: Denies easy bleeding or easy bruising Allergic/Immunologic Allergic/Immunologic ED: Denies mouth swelling or tongue swelling EXAM Physical Exam Const Vital Signs: 03/18/25 01:57 03/18/25 01:57 03/18/25 03:50 Temperature 98.8 F 98.7 F Temperature Source Oral Pulse Rate 94 69 Respiratory Rate 19 H 18 Respiratory Effort Normal Non-Labored Respiratory Pattern Normal Blood Pressure 151/88 H 124/66 H Blood Pressure Mean 109 85 Pulse Ox 97 97 Oxygen Delivery Method Room Air Positive well nourished and well developed General Appearance ED: well developed; Negative for pallor HEENT HEENT Narrative: Normocephalic atraumatic No tongue or lip swelling no oral lesions no airway edema or compromise Cobblestoning is noted in the posterior pharynx consistent with sinus drainage without secondary findings to suggest infection Eyes PERRL and EOMs intact bilaterally General Eye ED: Negative for scleral icterus Neck supple and no JVD Resp normal respiratory effort Resp Narrative: Breath sounds are diminished throughout with rhonchi noted in the bilateral bases However no signs of respiratory distress such as nasal flaring retractions tachypnea or accessory muscle use Cardio regular rate and regular rhythm GI normal to inspection, nondistended, normoactive bowel sounds, non-tender, non-distended and no masses GI Narrative: No voluntary guarding or rigidity or pulsatile mass No peritoneal signs Auscultation: normoactive bowel sounds Palpation: soft Extremity normal to inspection Extremity Narrative: Negative Homans' sign bilaterally Neuro oriented x3, CN's II-XII intact bilaterally and no sensory deficits noted Sensorium / Orientation: alert Motor Exam: strength 5/5 throughout Psych Mood & Affect: anxious Skin no rashes or lesions noted General Skin Exam: Negative for jaundice or pallor MDM MDM MDM Narrative Medical decision making narrative: Patient arrived to the ER satting 96 to 100% on room air and in no signs of respiratory distress. With his reports of nausea and myalgias and mild cough symptoms are most consistent with viral infection and therefore COVID influenza and RSV swab were obtained. As he does have a history of tobacco use and reported COPD a chest x-ray was ordered to assess for pneumonia. The x-ray showed atelectasis versus developing infiltrate without pneumothorax or pleural effusion. At this time as the patient is reporting cough and feeling unwell I do feel his safest option is placement on antibiotics for potentially developing infection especially as he reports symptoms only and present for 1 day. However he is not have respiratory distress he is not hypoxic he is not hypotensive or febrile and therefore I do not feel the need for blood work or admission to the hospital and he is otherwise safe for discharge with symptomatic care History & Record Review Discussion w/independent historian: Patient Radiography Diagnostic Testing: Clinical Impression(s) from Imaging Studies Chest X-Ray 03/18/25 02:25 IMPRESSION: Increased bilateral basilar atelectatic airspace disease/infiltrates, more prominent on the left side. Reading Location: [place] [address] Chest x-ray as interpreted by the emergency medicine physician reveals bibasilar atelectasis with patchy developing infiltrate on left Discharge Plan Triage Chief Complaint: Cold Sx ED Provider: Ty Morgan Dx/Rx/DC Orders Clinical Impression: Pneumonia, Nausea, Hypertension, Hyperlipidemia, Diabetes mellitus type 2, noninsulin dependent Instructions: When You Have Pneumonia Prescriptions: New doxycycline monohydrate 100 mg capsule 100 mg PO BID 7 Days Qty: 14 0RF ondansetron 4 mg tablet,disintegrating 4 mg PO TID PRN (Reason: nausea and vomiting) Qty: 21 0RF No Action atorvastatin 80 mg tablet 80 mg PO QHS cetirizine 5 mg tablet 5 mg PO QHS Patient Comments: 1 TABLET BY MOUTH ATIBEDTIME DX: / NURSE TO REORDER clopidogrel 75 mg tablet 75 mg PO DAILY isosorbide mononitrate 30 mg tablet extended release 24 hr 30 mg PO DAILY losartan 25 mg tablet 25 mg PO DAILY melatonin 5 mg tablet 5 mg PO QHS metformin 500 mg tablet 500 mg PO BID montelukast 10 mg tablet 10 mg PO QHS polyethylene glycol 3350 [Gavilax] 17 gram/dose powder 17 g PO .EVERY OTHER DAY Patient Comments: 17 GRAMS DISSOLVED INILIQUID EVERY OTHER DAY FOR CONSTIPATION HOLD FOR DIARRHEA, CALL MD IF NO BM IN 24 HRS tamsulosin 0.4 mg capsule 0.8 mg PO DAILY Tradjenta 5 mg tablet 5 mg PO DAILY icosapent ethyl [Vascepa] 1 gram capsule 2 g PO BID cholecalciferol (vitamin D3) [Vitamin D3] 125 mcg (5,000 unit) tablet 5,000 unit PO QWEEK finasteride 5 mg Tablet 5 mg PO DAILY Qty: 0 0RF Primary Care Provider: Jessica Alvarez TECHNICAL ADVISOR Referrals: Jessica Alvarez TECHNICAL ADVISOR, TECHNICAL ADVISOR-C [Primary Care Provider, Medical] Activity Restrictions/Additional Instructions: Your test for COVID influenza and RSV was negative. Your x-ray showed developing infiltrate/pneumonia in the left lung. However your oxygen level and vitals are stable. Therefore this can be treated as an outpatient. Take the doxycycline/antibiotic as directed to help resolve the infection and use the Zofran as needed for any nausea symptoms. Take Tylenol and/or Motrin for pain control and return to the ER should you have any further concerns Print Language: Faroese Disposition Disposition: Home, Self Care
[2025-03-18 03:50] VITALS: BP 124/66; PULSE 69; RESP 18; TEMP 37.1; O2SAT 97
== END 2025-03-18 06:06 | disposition home or self-care (01) ==
PROVIDERS: Emergency Provider Emergency Medicine; PCP Nurse Practitioner Adult Health; Visit Provider Emergency Medicine
DX: J18.9 Pneumonia, unspecified organism (principal); J44.9 Chronic obstructive pulmonary disease, unspecified; E11.22 Type 2 diabetes mellitus with diabetic chronic kidney disease; E78.5 Hyperlipidemia, unspecified; N18.2 Chronic kidney disease, stage 2 (mild); I12.9 Hypertensive chronic kidney disease with stage 1 through stage 4 chronic kidney disease, or unspecified chronic kidney disease; Z87.891 Personal history of nicotine dependence; R11.0 Nausea; Z79.899 Other long term (current) drug therapy; Z79.02 Long term (current) use of antithrombotics/antiplatelets; Z79.84 Long term (current) use of oral hypoglycemic drugs; N40.0 Benign prostatic hyperplasia without lower urinary tract symptoms
CPT/HCPCS: 71045; 87631; 99285

== ENCOUNTER 2025-03-18 23:42 | Inpatient (IN) | payer OTHER, SELFPAY ==
[2025-03-18 23:43] VITALS: BP 157/77; PULSE 100; RESP 18; TEMP 37.3; O2SAT 92; BMI 33.9
[2025-03-18 23:46] VITALS: BP 157/77; PULSE 100; RESP 18; TEMP 37.3; O2SAT 92
--- NOTE | 2025-03-18 23:52 | RAD_ITS ---
PROCEDURE: CHEST 1 VIEW (PORTABLE) 03/19/2025 REASON FOR EXAM: WEAKNESS TECHNIQUE: Frontal view of the chest. COMPARISON: 03/18/2025. FINDINGS: Mild bilateral basilar atelectatic pulmonary changes/infiltrates, unchanged. There is no demonstrated pleural abnormality. Enlarged cardiac silhouette. Normal mediastinum and kaiser. Normal visualized pulmonary arteries. Atheromatous plaques of the visualized aortic arch and descending thoracic aorta. Diffuse spondylosis of the visualized thoracic spine. Normal visualized ribs, clavicles. Degenerative joint disease. There is no demonstrated abnormality of the visualized soft tissue structures of the upper abdomen. RAD/Chest 1 View (Portable) IMPRESSION: Mild bilateral basilar atelectatic pulmonary changes/infiltrates, unchanged. Reading [facility] [address]
[2025-03-19] VITALS (10 sets, daily range): BP systolic 93–156; BP diastolic 58–96; PULSE 67–92; RESP 15–19; TEMP 36.3–37.3; O2SAT 93–100; BMI 33.2
--- NOTE | 2025-03-19 | EX.ED.DYSGE1 ---
HPI History of Present Illness Chief Complaint: General Illness Informant: patient and EMS Narrative Narrative: Patient is a 74-year-old male with history of hypertension hyperlipidemia and [id number]-[id number] type 2 diabetes. He was seen last night for general illness and at that time his COVID influenza and RSV test was negative. His chest x-ray question developing pneumonia. However he was not febrile or hypotensive or hypoxic and after receiving Tylenol he was able to fall asleep and reported feeling better upon repeat evaluation. Therefore he was started on doxycycline for the potential developing infection but as vitals were stable and he was feeling better he was discharged home. Patient states that today his sensation of fever chills and weakness have returned. He has been laying in bed all day. He has not taken his medication/doxycycline because he cannot open the bottle. EMS was called and states that he was too weak to even get up out of bed and walk to the cot. Therefore with persistent and worsening symptoms he was brought back in for evaluation [facility] Medical History (Updated 03/19/25 @ 05:[address] Ty Morgan, DO) Adult failure to thrive Obesity Allergic rhinitis CKD (chronic kidney disease), stage II Former tobacco use COPD (chronic obstructive pulmonary disease) BPH (benign prostatic hyperplasia) Hyperlipemia HTN (hypertension) Diabetes Home Medications ?Medication ?Instructions ?Recorded ?Last Taken ?Type atorvastatin 80 mg tablet 80 mg PO QHS cholesterol 11/08/22 Unknown History cetirizine 5 mg tablet 5 mg PO QHS allergies 11/08/22 Unknown History cholecalciferol (vitamin D3) 125 5,000 unit PO QWEEK vitamin 11/08/22 Unknown History mcg (5,000 unit) tablet (Vitamin D3) clopidogrel 75 mg tablet 75 mg PO DAILY anti platelet 11/08/22 11/08/22 History icosapent ethyl 1 gram capsule 2 g PO BID triglycerides 11/08/22 Unknown History (Vascepa) isosorbide mononitrate 30 mg 30 mg PO DAILY heart 11/08/22 Unknown History tablet,extended release 24 hr linagliptin 5 mg tablet (Tradjenta) 5 mg PO DAILY diabetes 11/08/22 Unknown History losartan 25 mg tablet 25 mg PO DAILY blood pressure 11/08/22 Unknown History melatonin 5 mg tablet 5 mg PO QHS sleep 11/08/22 Unknown History metformin 500 mg tablet 500 mg PO BID diabetes 11/08/22 Unknown History montelukast 10 mg tablet 10 mg PO QHS allergies 11/08/22 Unknown History polyethylene glycol 3350 17 17 g PO .EVERY OTHER DAY 11/08/22 Unknown History gram/dose oral powder (Gavilax) constipation tamsulosin 0.4 mg capsule 0.8 mg PO DAILY prostate 11/08/22 Unknown History finasteride 5 mg tablet 5 mg PO DAILY #0 tabs 11/12/23 Unknown Rx doxycycline monohydrate 100 mg 100 mg PO BID 7 days #14 CAPSULES 03/18/25 Unknown Rx capsule ondansetron 4 mg disintegrating 4 mg PO TID PRN nausea and 03/18/25 Unknown Rx tablet vomiting #21 tabs Allergy/AdvReac Type Severity Reaction Status Date / Time No Known Allergies Allergy Verified 03/18/25 23:44 Family History Mother Diabetes Cancer Father Diabetes Cancer Surgical History History of herniorrhaphy Hx of cholecystectomy Hx of appendectomy Social History housing: assisted living facility Smoking Status: Former smoker alcohol intake: never substance use type: does not use ROS ROS ED Constitutional Constitutional ED: Reports chills, fever(s), subjective and other Details: Positive fatigue Eyes Eyes: Denies change in vision ENT ENT ED: Reports rhinorrhea and sore throat Cardiovascular Cardiovascular: Denies chest pain Respiratory/Chest Respiratory/Chest: Reports cough; Denies dyspnea Gastrointestinal Gastrointestinal: Denies abdominal pain, diarrhea, nausea or vomiting Genitourinary Genitourinary ED: Denies dysuria Musculoskeletal Musculoskeletal: Reports myalgias Integumentary Denies rash Neurologic Neurologic: Reports weakness; Denies headache(s) Hematologic/Lymphatic Hematologic/Lymphatic: Denies easy bleeding or easy bruising EXAM Physical Exam Const Vital Signs: 03/18/25 23:43 03/18/25 23:43 03/18/25 23:46 Temperature 99.2 F H 99.2 F H Temperature Source Oral Oral Pulse Rate 100 100 Respiratory Rate 18 18 Respiratory Effort Normal Non-Labored Respiratory Pattern Normal Blood Pressure 157/77 H 157/77 H Blood Pressure Mean 103 103 Pulse Ox 92 92 Oxygen Delivery Method Room Air Room Air 03/19/25 01:46 03/19/25 02:00 03/19/25 03:00 Temperature 99.1 F 98.9 F 98.8 F Temperature Source Oral Oral Oral Pulse Rate 87 88 87 Respiratory Rate 19 H 18 16 Respiratory Effort Respiratory Pattern Blood Pressure 121/58 H 95/59 L 93/61 Blood Pressure Mean 79 71 71 Pulse Ox 98 93 93 Oxygen Delivery Method Room Air Room Air Room Air 03/19/25 03:43 03/19/25 04:00 Temperature 98.8 F 99 F Temperature Source Oral Pulse Rate 87 89 Respiratory Rate 16 19 H Respiratory Effort Respiratory Pattern Blood Pressure 99/58 L 94/72 Blood Pressure Mean 71 79 Pulse Ox 93 93 Oxygen Delivery Method Room Air Positive well nourished and well developed General Appearance ED: well developed; Negative for pallor HEENT Reports dry mucous membranes HEENT Narrative: Normocephalic atraumatic No tongue or lip swelling no oral lesions no airway edema or compromise Cobblestoning is noted in the posterior pharynx consistent with sinus drainage; no secondary findings to suggest infection Mucous membranes are dry and tacky Mouth ED: Yes dry mucous membranes Mouth: dry mucous membranes Eyes PERRL and EOMs intact bilaterally General Eye ED: Negative for scleral icterus Neck supple and no JVD Neck Narrative: No nuchal rigidity or meningeal signs Resp normal respiratory effort Resp Narrative: Breath sounds are diminished throughout with faint rhonchi noted in bilateral bases No nasal flaring retractions tachypnea or accessory muscle use Cardio regular rate and regular rhythm Rate: other Other Details: Heart is regular rate and rhythm Radial and carotid pulses are equal and symmetric GI non-distended and no masses GI Narrative: Abdomen is soft and nondistended with normal active bowel sounds There is mild pain on palpation in the suprapubic region without voluntary guarding or rigidity No organomegaly to suggest urinary retention No peritoneal signs No pulsatile mass Auscultation: normoactive bowel sounds Palpation: soft Extremity normal to inspection Neuro oriented x3, CN's II-XII intact bilaterally and no sensory deficits noted Sensorium / Orientation: alert Psych Mood & Affect: anxious Skin no rashes or lesions noted and No skin turgor normal Skin Narrative: Skin turgor is increased consistent with dehydration No overlying soft tissue changes to suggest trauma or infection General Skin Exam: Negative for jaundice or pallor MDM MDM MDM Narrative Medical decision making narrative: Patient arrived to the ER with stable vitals. He reported that even though he felt well when he left the hospital yesterday after returning home his sensation of fatigue/weakness with subjective fevers and chills returned. He states because of this he stayed in bed and continued to feel weak to the point where he cannot ambulate. He states that he has a home health aide that only comes in once a week. He had concerned that there was a missed infection from the previous day. In order to assess for acute blood loss anemia acute kidney injury rhabdomyolysis or UTI I did elect to perform basic laboratory studies today with urine. With the patient having symptoms most consistent with viral illness and a recent negative COVID influenza and RSV I did elect to perform a respiratory viral panel to check for another potential cause of his illness. The viral panel was negative. His urine sample shows no obvious signs of infection but with trace bacteria and 5-10 white blood cells I will send for culture to ensure there is no developing infection. His blood work revealed no leukocytosis or left shift going against systemic infection and his CPK is normal going against rhabdomyolysis. He also does not have acute kidney injury or clinically significant electrolyte abnormality despite his physical exam showing dehydration. After receiving IV fluids and Tylenol he did report feeling better and was able to sleep. However when we tried to ambit the patient he was still too weak to walk. As he lives at home alone and is unable to stand and walk he is not able to care for himself and therefore I feel he would benefit from placement. The patient states he is agreeable to placement if absolutely needed. As the x-ray from the previous day as well as today is questioning developing infection/pneumonia I will start him on Rocephin and Zithromax to cover for community-acquired pneumonia. The hospitalist was contacted regarding his persistent weakness and inability ambulate and agrees to accept him to his care for continued evaluation and treatment History & Record Review Discussion w/independent historian: EMS personnel and Patient Lab Data Attestation: I reviewed the patient's lab results. Labs: Laboratory Results - last 24 hr 03/18/25 03/19/25 23:56 01:57 WBC 5.0 RBC 4.60 Hgb 14.5 Hct 40.6 MCV 88.3 MCH 31.5 MCHC 35.7 RDW Std Deviation 37.2 RDW Coeff of Gage 11.5 L Plt Count 71 L MPV 9.8 Immature Gran % (Auto) 0.400 Neut % (Auto) 78.0 H Lymph % (Auto) 10.9 L Foster % (Auto) 10.1 H Eos % (Auto) 0.2 Baso % (Auto) 0.4 Absolute Neuts (auto) 3.9 Absolute Lymphs (auto) 0.55 L Nucleated RBC % 0 Sodium 129 L Potassium 4.1 Chloride 93 L Carbon Dioxide 21.6 Anion Gap 14 BUN 15 Creatinine 1.07 Estim Creat Clear Calc 82.08 Est GFR (MDRD) Non-Af 72 BUN/Creatinine Ratio 13.7 Glucose 218 H Calcium 8.9 Total Creatine Kinase 261 H Procalcitonin 0.23 H Urine Color Yellow Urine Clarity Clear Urine pH 6.0 Ur Specific [place] 1.020 Urine Protein 30 H Urine Glucose (UA) Normal Urine Ketones 15 H Urine Occult Blood 25 H Urine Nitrite Negative Urine Bilirubin Negative Urine Urobilinogen Normal Ur Leukocyte Esterase 100 H Urine RBC 5-10 SEEN Urine WBC 5-10 SEEN Ur Squamous Epith Cells 0-5 SEEN Urine Bacteria RARE Urine Mucus 0 SEEN Radiography Diagnostic Testing: Clinical Impression(s) from Imaging Studies Chest X-Ray 03/18/25 23:52 IMPRESSION: Mild bilateral basilar atelectatic pulmonary changes/infiltrates, unchanged. Reading Location: [place] [id number] Chest x-ray as interpreted by the emergency medicine physician reveals bibasilar atelectasis with potential developing infiltrate similar to the previous day Management Discussion w/another healthcare provider: Hospitalist Discharge Plan Dx/Rx/DC Orders Clinical Impression: Adult failure to thrive, Pneumonia, Hypertension, Hyperlipidemia, Diabetes mellitus type 2, noninsulin dependent, Generalized weakness, Inability to walk Disposition Disposition: Acute Care [facility]
[2025-03-19] MEDS: 0.9% Normal Saline (1000mL) 1,000 ML 999 ML IV (00:05)
[2025-03-19 00:14] LABS: Hematocrit 40.6 % (40-54); Hemoglobin 14.5 g/dL (13.0-16.5); Immature Granulocytes Count 0.020 X10^3/uL (0.0-0.0); Mean Corp Hgb Conc 35.7 g/dL (32-36); Mean Corpuscular Volume 88.3 fL (80-94); Mean Platelet Vol. 9.8 fl (6.2-12.0); NRBC Flagged by Analyzer 0 % (0-5); POSITIVE COUNT YES; POSITIVE DIFFERENTIAL YES; Platelet Count 71 K/mm3 (150-450); RBC Distribution Width CV 11.5 % (11.6-14.6); RBC Distribution Width SD 37.2 fl (35.1-43.9); Red Blood Count 4.60 M/mm3 (4.6-6.2); White Blood Count 5.0 K/mm3 (4.4-11.0)
--- OUTSIDE RECORDS SUMMARY | 2025-03-19 00:29 | XMS RPT_ITS | CCD ---
Author Organization [facility] [facility] Care Team Providers Care Principal Product Manager Name Role Phone LUCIANO, KELVIN B Unavailable [...] Care Provider Favian Trevizo Primary Care Provider [phone] Panchito Contreras Primary Care Provider [phone] Danie Sawyer Primary Care Provider [phone] Joseline CHA PhD, Favian Primary Care Provider [phone] Danie Sawyer MD Primary Care Provider [phone] ANNA CHA, DANAY Eli Primary Care Physician [phone] Antonio NEIL, FIELD REPRESENTATIVE/HEALTH EDUCATIONMiraC Jessica Moura Primary Care Provid er Dr. Yifan Meza Emergency Provider [phone] Dr. Bridgett Villagomez Admit Provider Dr. Bridgett Villagomez Other Provider [phone] Tanika Kunz Attending Provider [phone] Dr. Tanika Kunz Other Provider [phone] Mark Anthony Guzman Attending Unavailable Antonio FIELD REPRESENTATIVE/HEALTH EDUCATION, [facility] Unavaila ruby White, Bridgett L Consulting Unavailable White, Bridgett L Admitting Unavailable Kaushik Bryant Consulting Unavailable Mark Anthony Guzman Consulting Unavailable Bridgett Villagomez Attending Unavailable Deniz Cooper Attending Unavailable Deniz Cooper Consulting Unavailable Antonio NEIL, [facility] Unavaila Deniz Marina Attending Unavailable Bridgett Villagomez L Consulting Unavailable Dahlia Bridgett L Admitting Unavailable Kaushik Bryant Consulting Unavailable Mark Anthony Guzman Consulting Unavailable Antonio NEIL, [facility] Unavaila Clayton Contreras Attending Unavailable Medications [...] every 6 hours as needed. Indications: PAIN [id number] 200 actuat albuterol 0.09 mg/actuat metered dose [...] oral tablet (1 source) Macrolide Antimicrobial Start: 019 azithromycin (ZITHROMAX) tablet 500 mg bisacodyl 5 mg delayed release oral tablet (1 source) Stimulant Laxative Start: 021 take 5 mg by mouth once daily as needed for constipation 5 mg, Oral, DAILY PRN, Constipation, Starting on 01/31/21 at 0111 First line therapy for constipation. cetirizine hydrochloride 5 mg oral tablet (4 sources) Histamine-1 Receptor Antagonist Start: 023 take 5 mg by mouth at bedtime Cetirizine Active 5 MG PO AT BEDTIME November 08, 2022 12:00am MCV (RBC) [Entitic vol] 88.7 fL Normal 80-94 [facility] Comment on above: Performed By: #### L 501.080 #### [facility] [address] [place], [address] Monocytes/100 WBC (Bld) 6.2 % Normal 0-10 [facility] Comment on above: Performed By: #### L 501.080 #### [facility] [address] [place], [address] Neutrophils/100 WBC (Bld) 83.6 % High 47-70 [facility] Comment on above: Performed By: #### L 501.080 #### [facility] [address] [place], [address] Nucleated RBC (Bld) [#/Vol] 0 10*3/uL Normal 0-5 [facility] Comment on above: Performed By: #### L 501.080 #### [facility] [address] [place], [address] Platelet mean volume (Bld) [Entitic vol] 9.1 fL Normal 6.2-12.0 [facility] Comment on above: Performed By: #### L 501.080 #### [facility] [address] [place], [address] Platelets (Bld) [#/Vol] 100 10*3/uL Low 150-450 [facility] Comment on above: Performed By: #### L 501.080 #### [facility] [address] [place], [address] RBC (Bld) [#/Vol] 4.07 10*6/uL Low 4.6-6.2 [facility] Comment on above: Performed By: #### L 501.080 #### [facility] [address] [place], [address] RDW SD 38.7 fl Normal 35.1-43.9 [facility] Comment on above: Performed By: #### L 501.080 #### [facility] [address] [place], [address] WBC (Bld) [#/Vol] 7.1 10*3/uL Normal 4.4-11.0 [facility] Comment on above: Performed By: #### L 501.080 #### [facility] [address] [place], [address] Lactic Acidon 11-09-2023 Lactate [Moles/Vol] 1.0 mmol/L Normal 0.4-1.9 [facility] Comment on above: Order Comment: Y Performed By: #### L 503.6005 ####[facility] [address] [place], [address] Modified Barium Swallow Stud n 11-09-2023 Modified Barium Swallow Study [facility] Speech Pathology [address] [place] [address] Modified Barium Swallow Study MR#: [id number] Acct: [id number] Name: SHOLA MARTINEZ Rep #: [id number] : 1950 73 From: Erika Rahman M.A., [facility]-DIRECTOR OF GIFT PLANNING Modified Barium Swallow Patient Information Study Date: 11/09/23 Study Time: 09:15 Direct Billable Minutes: 120 Total Minutes procedure reportin Diagnosis: PNA J18.9 Referring Physician: Mark Anthony Guzman Reason for Referral: Objectively assess swallow function, assess risk for aspiration, and determine recommendations for least restrictive diet textures and compensatory strategies to improve safety of swallow. Medical History: Patient presented to [facility] ED on 11/08/23 with history of [...] liquids, most notably ice water via cup. DIRECTOR OF GIFT PLANNING recommended MBSS to further assess concerns for [...] Cued cough and re-swallow - somewhat effective. Keener Thick Liquid via small single sip: cup: Result: 3= enters airways/above vocal folds/not ejected Comment: Cued cough and re-swallow - somewhat effective. Keener Thick Liquid via small single sip: cup Trial 2: Result: 5= enters airways/contacts vocal folds/not ejected Honey Thick Liquid via small single sip: cup: Result: 1= does not enter airway Pudding via teaspoon: Result: 1= does not enter airway 1/2 Cookie: Result: 1= does not enter airway Keener Thick Liquid via small single sip: cup Effortful swallow: Result: 1= does not enter airway Thin Liquid via single sip: straw: Result: 1= does not enter airway Thin Liquid via single sip: straw Trial 2: Result: 7= enters airways/below vocal folds/not ejected despite effort Comment: Cued cough and re-swallow - somewhat effective. Keener Thick Liquid via large single sip: cup Effortful swallow: Result: 5= enters airways/contacts vocal folds/not ejected Keener Thick Liquid via small single sip: cup Effortful swallow Trial 2: Result: 1= does not enter airway Comment: SILENT post prandial aspiration of previous trial Thin Liquid via small single sip: cup Trial 2: Result: 3= enters airways/above vocal folds/not ejected Comment: DIRECTOR OF GIFT PLANNING cued him for chin tuck with moderate verbal cues and model with no follow-through Keener Thick Liquid via small single sip: cup Effortful swallow Trial 3: Result: 1= does not enter airway Comment: Cued cough and re-swallow - somewhat effective. Thin Liquid via small single sip: cup Effortful swa (more content not included)... Normal [facility] Abdomen/Pelvis W IV Cont ONL Yon 11-08-2023 Abdomen/Pelvis W IV Cont ONLY [facility] Imaging Services [address] [place], [place] [address] Abdomen/Pelvis W IV Cont ONLY MR#: [id number] Acct: [id number] Name: SHOLA MARTINEZ Rep #: [id number] : 1950 M 73 From: Stepan Potts MD PCP: Jessica Alvarez, FIELD REPRESENTATIVE/HEALTH EDUCATION-C Status: ADM IN Study: Abdomen/Pelvis W IV Cont ONLY Date of Exam: Exam# [id number] Ordering Dr: Kaushik Bryant MD [id number] STUDY: CT ABDOMEN AND PELVIS WITH CONTRAST [...] CC: TARI Alvarez; Dr. Kaushik Bryant MD Professor Of Education: Signed Normal [facility] Basic Metabolic Profile (BMP )on 11-08-2023 BUN/CRE 10.9 RATIO Normal 10-20 [facility] Comment on above: Performed By: #### L 501.080 #### [facility] [address] [place], [place], [id number] CA,Total 8.9 mg/dL Normal 8.5-10.1 [facility] Comment on above: Performed By: #### L 501.080 #### [facility] [address] [place], [address] Chloride [Moles/Vol] 102 mmol/L Normal 98-107 [facility] Comment on above: Performed By: #### L 501.080 #### [facility] [address] [place], [address] CO2 [Moles/Vol] 23.0 mmol/L Normal 21.0-32.0 [facility] Comment on above: Performed By: #### L 501.080 #### [facility] [address] [place], [address] Creatinine [Mass/Vol] 0.92 mg/dL Normal 0.70-1.30 [facility] Comment on above: Result Comment: The validity of the calculated GFR GFRAA in patients over 70 years has not been determined. Clinical correlation is essential. Performed By: #### L 501.080 #### [facility] [address] [place], [address] ECRCL 104.14 ml/min Normal [facility] Comment on above: Performed By: #### L 501.080 #### [facility] [address] [place], [address] EST GFR - AA 104 mL/min Normal >60 [facility] Comment on above: Result Comment: Afri can Croatian GFR Calc Performed By: #### L 501.080 #### [facility] [address] [place], [address] GAP 10 Normal 5-15 [facility] Comment on above: Performed By: #### L 501.080 #### [facility] [address] [place], [address] GFR/1.73 sq M.predicted among non-blacks MDRD (S/P/Bld) [Vol rate/Area] 86 mL/min/{1.73_m2} Normal >60 [facility] Comment on above: Result Comment: Non- GFR Calc Performed By: #### L 501.080 #### [facility] [address] [place], [address] Glucose [Mass/Vol] 142 mg/dL High 74-106 [facility] Comment on above: Result Comment: Fast ing Glucose result greater than or equal to 126 mg/dL suggests DIABETES MELLITUS per A.D.A. criteria. Performed By: #### L 501.080 #### [facility] [address] [place], [address] Potassium [Moles/Vol] 3.8 mmol/L Normal 3.5-5.1 [facility] Comment on above: Result Comment: Slig ht Hemolysis, Result may be falsely increased. Performed By: #### L 501.080 #### [facility] [address] [place], [address] Sodium [Moles/Vol] 135 mmol/L Low 136-145 [facility] Comment on above: Performed By: #### L 501.080 #### [facility] [address] [place], [address] Urea nitrogen [Mass/Vol] 10 mg/dL Normal 7-18 [facility] Comment on above: Performed By: #### L 501.080 #### [facility] [address] [place], [address] Bedside Glucoseon 11-08-2023 FINGERSTICK GLU 133 mg/dL High 74-106 [facility] Comment on above: Result Comment: ADA GEMENT OF PATIENT CARE PER NURSING PROTOCOL Performed By: #### L 501.080 #### [facility] [address] [place], [address] FINGERSTICK GLU 151 mg/dL High 74-106 [facility] Comment on above: Result Comment: ADA GEMENT OF PATIENT CARE PER NURSING PROTOCOL Performed By: #### L 501.080 #### [facility] [address] [place], [address] FINGERSTICK GLU 168 mg/dL High 74-106 [facility] Comment on above: Result Comment: ADA GEMENT OF PATIENT CARE PER NURSING PROTOCOL Performed By: #### L 501.080 #### [facility] [address] [place], [address] FINGERSTICK GLU 153 mg/dL High 74-106 [facility] Comment on above: Result Comment: ADA SINGH OF PATIENT CARE PER NURSING PROTOCOL Performed By: #### L 501.080 ####[facility] [address] [place], [address] CBC W/Diff, Automatedon 08-0 8-2023 Absolute Lymph 0.66 X10 3/uL Low 0.83-4.51 [facility] Comment on above: Performed By: #### L 100.0100, L500.4050 #### [facility] [address] [place], [address] Absolute Neut 8.7 X10 3/uL High 2.0-7.7 [facility] Comment on above: Performed By: #### L 100.0100, L500.4050 #### [facility] [address] [place], [address] Basophils/100 WBC (Bld) 0.3 % Normal 0-1 [facility] Comment on above: Performed By: #### L 100.0100, L500.4050 #### [facility] [address] [place], [address] Eosinophils/100 WBC (Bld) 0.3 % Normal 0-5 [facility] Comment on above: Performed By: #### L 100.0100, L500.4050 #### [facility] [address] [place], [address] Erythrocyte distribution width (RBC) [Ratio] 12.0 % Normal 11.6-14.6 [facility] Comment on above: Performed By: #### L 100.0100, L500.4050 #### [facility] [address] [place], [address] Hematocrit (Bld) [Volume fraction] 40.5 % Normal 40-54 [facility] Comment on above: Performed By: #### L 100.0100, L500.4050 #### [facility] [address] [place], [address] Hemoglobin (Bld) [Mass/Vol] 13.7 g/dL Normal 13.0-16.5 [facility] Comment on above: Performed By: #### L 100.0100, L500.4050 #### [facility] [address] [place], [address] IG% 0.400 Normal 0.0-0.9 [facility] Comment on above: Result Comment: IG% - Immature Granulocytes (promyelocytes, myelocytes and metamyelocytes) > 1% indicates that a LEFT SHIFT is Present. Performed By: #### L 100.0100, L500.4050 #### [facility] [address] [place], [address] Lymphocytes/100 WBC (Bld) 6.8 % Low 19-41 [facility] Comment on above: Performed By: #### L 100.0100, L500.4050 #### [facility] [address] [place], [address] MCH (RBC) [Entitic mass] 30.2 pg Normal 27.0-32.0 [facility] Comment on above: Performed By: #### L 100.0100, L500.4050 #### [facility] [address] [place], [address] MCHC (RBC) [Mass/Vol] 33.8 g/dL Normal 32-36 [facility] Comment on above: Performed By: #### L 100.0100, L500.4050 #### [facility] [address] [place], [address] MCV (RBC) [Entitic vol] 89.4 fL Normal 80-94 [facility] Comment on above: Performed By: #### L 100.0100, L500.4050 #### [facility] [address] [place], [address] Monocytes/100 WBC (Bld) 2.9 % Normal 0-10 [facility] Comment on above: Performed By: #### L 100.0100, L500.4050 #### [facility] [address] [place], [address] Neutrophils/100 WBC (Bld) 89.3 % High 47-70 [facility] Comment on above: Performed By: #### L 100.0100, L500.4050 #### [facility] [address] [place], [address] Nucleated RBC (Bld) [#/Vol] 0 10*3/uL Normal 0-5 [facility] Comment on above: Performed By: #### L 100.0100, L500.4050 #### [facility] [address] [place], [address] Platelet mean volume (Bld) [Entitic vol] 9.3 fL Normal 6.2-12.0 [facility] Comment on above: Performed By: #### L 100.0100, L500.4050 #### [facility] [address] [place], [address] Platelets (Bld) [#/Vol] 107 10*3/uL Low 150-450 [facility] Comment on above: Performed By: #### L 100.0100, L500.4050 #### [facility] [address] [place], [address] RBC (Bld) [#/Vol] 4.53 10*6/uL Low 4.6-6.2 [facility] Comment on above: Performed By: #### L 100.0100, L500.4050 #### [facility] [address] [place], [address] RDW SD 38.7 fl Normal 35.1-43.9 [facility] Comment on above: Performed By: #### L 100.0100, L500.4050 #### [facility] [address] [place], [address] WBC (Bld) [#/Vol] 9.7 10*3/uL Normal 4.4-11.0 [facility] Comment on above: Performed By: #### L 100.0100, L500.4050 #### [facility] [address] [place], [address] Absolute Lymph 0.64 X10 3/uL Low 0.83-4.51 [facility] Comment on above: Performed By: #### L 501.080 #### [facility] [address] [place], [address] Absolute Neut 8.0 X10 3/uL High 2.0-7.7 [facility] Comment on above: Performed By: #### L 501.080 #### [facility] [address] [place], [address] Basophils/100 WBC (Bld) 0.2 % Normal 0-1 [facility] Comment on above: Performed By: #### L 501.080 #### [facility] [address] [place], [address] Eosinophils/100 WBC (Bld) 0.7 % Normal 0-5 [facility] Comment on above: Performed By: #### L 501.080 #### [facility] [address] [place], [address] Erythrocyte distribution width (RBC) [Ratio] 12.0 % Normal 11.6-14.6 [facility] Comment on above: Performed By: #### L 501.080 #### [facility] [address] [place], [address] Hematocrit (Bld) [Volume fraction] 42.0 % Normal 40-54 [facility] Comment on above: Performed By: #### L 501.080 #### [facility] [address] [place], [address] Hemoglobin (Bld) [Mass/Vol] 14.6 g/dL Normal 13.0-16.5 [facility] Comment on above: Performed By: #### L 501.080 #### [facility] [address] [place], [address] IG% 0.400 Normal 0.0-0.9 [facility] Comment on above: Result Comment: IG% - Immature Granulocytes (promyelocytes, myelocytes and metamyelocytes) > 1% indicates that a LEFT SHIFT is Present. Performed By: #### L 501.080 #### [facility] [address] [place], [address] Lymphocytes/100 WBC (Bld) 7.1 % Low 19-41 [facility] Comment on above: Performed By: #### L 501.080 #### [facility] [address] [facility] [place], [address] MCH (RBC) [Entitic mass] 30.5 pg Normal 27.0-32.0 [facility] Comment on above: Performed By: #### L 501.080 #### [facility] [address] [place], [address] MCHC (RBC) [Mass/Vol] 34.8 g/dL Normal 32-36 [facility] Comment on above: Performed By: #### L 501.080 #### [facility] [address] [place], [address] MCV (RBC) [Entitic vol] 87.7 fL Normal 80-94 [facility] Comment on above: Performed By: #### L 501.080 #### [facility] [address] [place], [address] Monocytes/100 WBC (Bld) 2.8 % Normal 0-10 [facility] Comment on above: Performed By: #### L 501.080 #### [facility] [address] [place], [address] Neutrophils/100 WBC (Bld) 88.8 % High 47-70 [facility] Comment on above: Performed By: #### L 501.080 #### [facility] [address] [place], [address] Nucleated RBC (Bld) [#/Vol] 0 10*3/uL Normal 0-5 [facility] Comment on above: Performed By: #### L 501.080 #### [facility] [address] [place], [address] Platelet mean volume (Bld) [Entitic vol] 10.1 fL Normal 6.2-12.0 [facility] Comment on above: Performed By: #### L 501.080 #### [facility] [address] [place], [address] Platelets (Bld) [#/Vol] 110 10*3/uL Low 150-450 [facility] Comment on above: Performed By: #### L 501.080 #### [facility] [address] [place], [address] RBC (Bld) [#/Vol] 4.79 10*6/uL Normal 4.6-6.2 [facility] Comment on above: Performed By: #### L 501.080 #### [facility] [address] [place], [address] RDW SD 38.6 fl Normal 35.1-43.9 [facility] Comment on above: Performed By: #### L 501.080 #### [facility] [address] [place], [place], [address] WBC (Bld) [#/Vol] 9.0 10*3/uL Normal 4.4-11.0 [facility] Comment on above: Performed By: #### L 501.080 #### [facility] [address] [place], [place], [address] Chest PA and Lateralon 11-07 Chest PA and Lateral [facility] Imaging Services [address] [place], [place] [address] Chest PA and Lateral MR#: [id number] Acct: [id number] Name: SHOLA MARTINEZ Rep #: [id number] : 1950 M 73 From: Jackson Leroy MD PCP: Jessica Alvarez, FIELD REPRESENTATIVE/HEALTH EDUCATION-C Status: REG ER Study: Chest PA and Lateral Date of Exam: 11/08/23 Exam# [id number] Ordering Dr: Eduar Donahue DO [id number] EXAM: XR Chest 2 Views INDICATION: Male, [...] EDT , CC: TARI Alvarez; Dr. Eduar Donahue, DO Professor Of Education: Signed Normal [facility] Comprehensive Metabolic Prof ilon 11-08-2023 Albumin [Mass/Vol] 3.1 g/dL Low 3.2-5.0 [facility] Comment on above: Performed By: #### L 100.0100, L500.4050 #### [facility] [address] [place], [address] Albumin/Globulin [Mass ratio] 1.0 {ratio} Normal 0.9-2.4 [facility] Comment on above: Performed By: #### L 100.0100, L500.4050 #### [facility] [address] [place], [address] ALK P 82 U/L Normal 45-117 [facility] Comment on above: Performed By: #### L 100.0100, L500.4050 #### [facility] [address] [place], [address] ALT [Catalytic activity/Vol] 22 U/L Normal 16-61 [facility] Comment on above: Performed By: #### L 100.0100, L500.4050 #### [facility] [address] [place], [address] AST [Catalytic activity/Vol] 16 U/L Normal 15-37 [facility] Comment on above: Performed By: #### L 100.0100, L500.4050 #### [facility] [address] [place], [address] Bilirubin [Mass/Vol] 3.40 mg/dL High 0.20-1.00 [facility] Comment on above: Result Comment: For patients on eltrombopag therapy, use of Dimension Jones TBIL is not recommended. Performed By: #### L 100.0100, L500.4050 #### [facility] [address] [place], [address] BUN/CRE 8.9 RATIO Low 10-20 [facility] Comment on above: Performed By: #### L 100.0100, L500.4050 #### [facility] [address] [place], [address] CA,Total 8.3 mg/dL Low 8.5-10.1 [facility] Comment on above: Performed By: #### L 100.0100, L500.4050 #### [facility] [address] [place], [address] Chloride [Moles/Vol] 103 mmol/L Normal 98-107 [facility] Comment on above: Performed By: #### L 100.0100, L500.4050 #### [facility] [address] [place], [address] CO2 [Moles/Vol] 26.0 mmol/L Normal 21.0-32.0 [facility] Comment on above: Performed By: #### L 100.0100, L500.4050 #### [facility] [address] [place], [address] Creatinine [Mass/Vol] 1.01 mg/dL Normal 0.70-1.30 [facility] Comment on above: Result Comment: The validity of the calculated GFR GFRAA in patients over 70 years has not been determined. Clinical correlation is essential. Performed By: #### L 100.0100, L500.4050 #### [facility] [address] [place], [address] ECRCL 87.41 ml/min Normal [facility] Comment on above: Performed By: #### L 100.0100, L500.4050 #### [facility] [address] [place], [address] EST GFR - AA 93 mL/min Normal >60 [facility] Comment on above: Result Comment: Afri can Croatian GFR Calc Performed By: #### L 100.0100, L500.4050 #### [facility] [address] [place], [address] GAP 6 Normal 5-15 [facility] Comment on above: Performed By: #### L 100.0100, L500.4050 #### [facility] [address] [place], [address] GFR/1.73 sq M.predicted among non-blacks MDRD (S/P/Bld) [Vol rate/Area] 77 mL/min/{1.73_m2} Normal >60 [facility] Comment on above: Result Comment: Non- GFR Calc Performed By: #### L 100.0100, L500.4050 #### [facility] [address] [place], [address] Globulin (S) [Mass/Vol] 3.1 g/dL Normal 2.2-4.2 [facility] Comment on above: Performed By: #### L 100.0100, L500.4050 #### [facility] [address] [place], [address] Glucose [Mass/Vol] 179 mg/dL High 74-106 [facility] Comment on above: Result Comment: Fast ing Glucose result greater than or equal to 126 mg/dL suggests DIABETES MELLITUS per A.D.A. criteria. Performed By: #### L 100.0100, L500.4050 #### [facility] [address] [place], [address] Potassium [Moles/Vol] 4.3 mmol/L Normal 3.5-5.1 [facility] Comment on above: Performed By: #### L 100.0100, L500.4050 #### [facility] [address] [place], [address] Sodium [Moles/Vol] 135 mmol/L Low 136-145 [facility] Comment on above: Performed By: #### L 100.0100, L500.4050 #### [facility] [address] [place], [address] T PROT 6.2 g/dL Low 6.4-8.2 [facility] Comment on above: Performed By: #### L 100.0100, L500.4050 #### [facility] [address] [place], [address] Urea nitrogen [Mass/Vol] 9 mg/dL Normal 7-18 [facility] Comment on above: Performed By: #### L 100.0100, L500.4050 #### [facility] [address] [place], [address] Consultation - Urologyon Consultation - Urology [facility] Medical Records Department [address] [place] [address] Consultation - Urology 11/08/23 1644 MR#: [id number] Acct: [id number] Name: SHOLA MARTINEZ Rep #: [id number] : 1950 73 From: Kaushik Bryant MD PCP: Jessica Alvarez, FIELD REPRESENTATIVE/HEALTH EDUCATION-C Status:ADM IN Location: [place] [address] Assessment Plan Assessment/Plan (1) Acidosis, lactic: (2) [...] and Knight 150 cc. No gross hematuria. [facility] Medical History Adult failure to thrive Obesity [...] 88.8 H, Lymph % (Auto) 7.1 L, Van Zandt % (Auto) 2.8, Eos % (Auto) 0.7, [...] 86, BUN/C (more content not included)... Normal [facility] Emergency Department Summary on 11-08-2023 Emergency Department Summary [facility] Medical Records Department [address] [place] [address] Emergency Department Summary 11/08/23 MR#: [id number] Acct: [id number] Name: SHLOA MARTINEZ Rep #: [id number] : 1950 73 From: Eduar Donahue DO PCP: Jessica Alvarez FIELD REPRESENTATIVE/HEALTH EDUCATION-C Status:ADM IN Location: MS3 [id number] HPI History of Present Illness Chief Complaint: [...] of breath. Patient denies any urinary complaints. [facility] Medical History Adult failure to thrive Obesity [...] mucous membranes (more content not included)... Normal [facility] H AND P Exam - Hospitaliston 11-08-2023 H&P Exam - Hospitalist [facility] Medical Records Department [address] [place] [address] H P Exam - Hospitalist 11/08/23 0230 MR#: [id number] Acct: [id number] Name: SHOLA MARTINEZ Rep #: [id number] : 1950 73 From: Bridgett Villagomez MD PCP: Jessica Alvarez, FIELD REPRESENTATIVE/HEALTH EDUCATION-C Status:ADM IN Location: [facility] [id number] HPI - General General Date of Admission: 11/08/23 Date of Service: 11/08/23 Chief Complaint: N/V/D, fever. HPI Narrative The patient is a 73 y/o M w/ PMHx: Chronic thrombocytopenia, Former Tobacco use, HTN, HLD, BPH, Diabetes mellitus type II, COPD, CKD per GFR trending, Obesity, Hx COVID illness who presents to the [facility] ED on 11/08/23 with history of [...] plavix and does not know exactly why. [facility] Medical History Adult failure to thrive Obesity [...] BRBPR. GENITOUR (more content not included)... Normal [facility] Kidney and Bladderon 024 Kidney and Bladder [facility] Imaging Services [address] [place] [address] Kidney and Bladder MR#: [id number] Acct: [id number] Name: SHOLA MARTINEZ Rep #: [id number] : 1950 M 73 From: Stepan Potts MD PCP: Jessica Alvarez FIELD REPRESENTATIVE/HEALTH EDUCATIONYanique Status: ADM IN Study: Kidney and Bladder Date of Exam: 11/08/23 Exam# [id number] Ordering Dr: Mark Anthony Guzman MD [id number] STUDY: RENAL ULTRASOUND - COMPLETE REASON FOR [...] TARI Alvarez; Dr. Mark Anthony Guzman MD Professor Of Education: Signed Normal [facility] Lactic Acidon 11-08-2023 Lactate [Moles/Vol] 2.2 mmol/L Invalid Interpretation Code 0.4-1.9 [facility] Comment on above: Result Comment: Crit ical Result(s) Called at: 06:53:04 11/08/2023 by: GEO VILLAGOMEZ TO KALEY JACKSON. Results read back by same. Performed By: #### L 503.6005 #### [facility] [address] [place], [address] Lactate [Moles/Vol] 2.4 mmol/L Invalid Interpretation Code 0.4-1.9 [facility] Comment on above: Order Comment: Y Result Comment: Crit ical Result(s) Called at: 02:04:08 11/08/2023 by: Celso Davis. to Sixto GI PHYSICIAN. Results read back by same. Performed By: #### L 501.080 #### [facility] [address] [place], [address] Legionella Antigen Urineon 0 11-08-2023 LEGU URINE, CATHETER Legionella Antigen result interpretation: L pneumo Ag Ur Ql Negative Presumptive negative for Legionella pneumophila serogroup 1 antigen in urine, suggesting no recent or current infection. Legionella Ag, Urine Negative (See interpretation below) Normal [facility] Comment on above: Performed By: #### M 300.4600, M300.4500 ####[facility] [address] [place], [address] M R Staph Aureus DNA by PCRo n 11-08-2023 MRSA DNA ASSAY Negative Normal Negative [facility] Comment on above: Performed By: #### L 8200.1000 ####[facility] [address] [place], [address] M100.678on 11-08-2023 M100.678 SARS-CoV-2 (COVID 19 ) Negative INFLUENZA A Negative INFLUENZA B Negative RSV PCR Negative Normal [facility] Comment on above: Performed By: #### L 400.0001, M100.678 #### [facility] [address] [place], [address] RESPIRATORY PANEL MOLECULARo n 11-08-2023 RP PANEL ADENOVIRUS Not Detected INFLUENZA A Not Detected INFLUENZA A (SUBTYPE H1) Not Detected INFLUENZA A (SUBTYPE H3) Not Detected INFLUENZA B Not Detected HUMAN METAPHNEUMO Not Detected PARAINFLUENZA 1 Not Detected PARAINFLUENZA 2 Not Detected PARAINFLUENZA 3 Not Detected PARAINFLUENZA 4 Not Detected RHINOVIRUS Not Detected RSV A Not Detected RSV B Not Detected Normal [facility] Comment on above: Performed By: #### M 100.638 ####[facility] [address] [place], [address] Strep pneumoniae Antig(UR,CS F)on 11-08-2023 STPAG URINE, CATHETER URINE INTERPRETATION Strep pneumoniae Antig(UR,CSF) Negative Urine Presumptive negative for pneumococcal pneumonia, suggesting no current or recent pneumococcal infection. Infection due to S pneumoniae cannot be ruled out since the antigen present in the sample may be below the detection limit of the test. Strep pneumo Test Negative URINE (See interpretation below) Normal [facility] Comment on above: Performed By: #### M 300.4600, M300.4500 ####[facility] [address] [place], [address] Urinalysis, Completeon 11-07 BACTERIA 3+ /hpf Normal None Seen [facility] Comment on above: Order Comment: CLEAN CATCH Performed By: #### L 400.0001, M1.8 #### [facility] [address] [place], [address] RBC 0-5 SEEN Normal 0-5 [facility] Comment on above: Order Comment: CLEAN CATCH Performed By: #### L 400.0001, 8 #### [facility] [address] [place], [address] WBC 25-50 SEEN Normal 0-5 [facility] Comment on above: Order Comment: CLEAN CATCH Performed By: #### L 400.0001, 8 #### [facility] [address] [place], [address] EPI,SQUAMOUS 0 SEEN Normal 0-5 [facility] Comment on above: Order Comment: CLEAN CATCH Performed By: #### L 400.0001, . #### [facility] [address] [place], [address] Mucus Ql (Urine sed) 0 SEEN Normal [facility] Comment on above: Order Comment: CLEAN CATCH Performed By: #### L 400.0001, M100.678 #### [facility] [address] [place], [address] Absolute lymphocyte countOrd ered By: Tanika Kunz on 11-11-2022 Lymphocytes Auto (Unsp spec) [#/Vol] 1.16 10*3/uL 0.83-4.51 [facility] Basophil percentageOrdered B y: Tanika Kunz on 11-11-2022 Basophils/100 WBC (Bld) 0.3 % 0-1 [facility] Chloride [Moles/Vol] 104 mmol/L 98-107 [facility] Eosinophils/100 WBC (Bld) 1.3 % 0-5 [facility] Glucose [Mass/Vol] 210 mg/dL 74-106 [facility] Comment on above: Glucose result great er than or equal to 200 mg/dLsuggests DIABETES MELLITUS per A.D.A. criteria. Neutrophils (Bld) [#/Vol] 4.4 10*3/uL 2.0-7.7 [facility] Neutrophils/100 WBC (Bld) 69.9 % 47-70 [facility] Potassium [Moles/Vol] 3.7 mmol/L 3.5-5.1 [facility] Sodium [Moles/Vol] 134 mmol/L 136-145 [facility] WBC (Bld) [#/Vol] 6.3 10*3/uL 4.4-11.0 [facility] Blood erythrocytes count (nu mber/volume)Ordered By: Tanika Kunz on 11-11-2022 RBC (Bld) [#/Vol] 4.41 10*6/uL 4.6-6.2 [facility] Blood hemoglobin measurement (mass/volume)Ordered By: Tanika Kunz on 11-11-2022 Hemoglobin (Bld) [Mass/Vol] 13.6 g/dL 13.0-16.5 [facility] Blood lymphocytes/100 leukoc ytesOrdered By: Tanika Kunz on 11-11-2022 Lymphocytes/100 WBC (Bld) 18.4 % 19-41 [facility] Blood monocytes/100 leukocyt esOrdered By: Tanika Kunz on 11-11-2022 Monocytes/100 WBC (Bld) 9.8 % 0-10 [facility] Blood platelet mean volumeOr dered By: Tanika Kunz on 11-11-2022 Platelet mean volume (Bld) [Entitic vol] 9.4 fL 6.2-12.0 [facility] Determination of erythrocyte mean corpuscular volume (MCV)Ordered By: Tanika Kunz on 11-11-2022 MCV (RBC) [Entitic vol] 88.2 fL 80-94 [facility] Glucose Glucometer (BldC) [M ass/Vol]Ordered By: Tanika Kunz on 11-11-2022 Glucose [Mass/Vol] 236 mg/dL 74-106 [facility] Comment on above: MANAGEMENT OF PATIEN T CARE PER NURSING PROTOCOL Hematocrit Auto (Bld) [Volum e fraction]Ordered By: Tanika Kunz on 11-11-2022 Hematocrit (Bld) [Volume fraction] 38.9 % 40-54 [facility] - Chemistry and C hemistry - challengeOrdered By: Tanika Kunz on 11-11-2022 CO2 [Moles/Vol] 25.0 mmol/L 21.0-32.0 [facility] Urea nitrogen/Creatinine [Mass ratio] 11.1 mg/mg 10-20 [facility] - Hematology and Cell countsOrdered By: Tanika Kunz on 11-11-2022 Erythrocyte distribution width (RBC) [Entitic vol] 37.6 fL 35.1-43.9 [facility] Erythrocyte distribution width (RBC) [Ratio] 11.7 % 11.6-14.6 [facility] Immature granulocytes/100 WBC (Bld) 0.300 % 0.0-0.9 [facility] Comment on above: IG% - Immature Granu locytes (promyelocytes, myelocytes and metamyelocytes) > 1% indicates that a LEFT SHIFT is Present. MCH (RBC) [Entitic mass] 30.8 pg 27.0-32.0 [facility] Nucleated RBC/100 WBC (Bld) [Ratio] 0 % 0-5 [facility] Auto (RBC) [Mass/Vol]Or dered By: Tanika Kunz on 11-11-2022 MCHC (RBC) [Mass/Vol] 35.0 g/dL 32-36 [facility] No Panel InformationOrdered By: Tanika Kunz on 11-11-2022 Estimated Creatinine Clearance Calc 84.99 ml/min [facility] Estimated GFR (MDRD) Amer 107 mL/min >60 [facility] Comment on above: GFR Calc Estimated GFR (MDRD) Non-Af Amer 88 mL/min >60 [facility] Comment on above: Non- GFR Calc Platelets bldOrdered By: Natacha Kunz on 11-11-2022 Platelets (Bld) [#/Vol] 100 10*3/uL 150-450 [facility] Serum or plasma calcium yessi urement (mass/volume)Ordered By: Tanika Kunz on 11-11-2022 Calcium [Mass/Vol] 8.1 mg/dL 8.5-10.1 [facility] Serum or plasma creatinine m easurement (mass/volume)Ordered By: Tanika Kunz on 11-11-2022 Creatinine [Mass/Vol] 0.90 mg/dL 0.70-1.30 [facility] Comment on above: The validity of the calculated GFR & GFRAA in patients over 70 years has not been determined. Clinical correlation is essential. Serum or plasma urea nitroge n measurement (mass/volume)Ordered By: Tanika Kunz on 11-11-2022 Urea nitrogen [Mass/Vol] 10 mg/dL 7-18 [facility] Thin prep Papanicolaou smear with manual screeningOrdered By: Tanika Kunz on 11-11-2022 Thin prep Papanicolaou smear with manual screening 5 5-15 [facility] Basophil percentageOrdered B y: Tanika Kunz on 11-10-2022 Bilirubin [Mass/Vol] 2.70 mg/dL 0.20-1.00 [facility] Comment on above: For patients on eltr ombopag therapy, use of Dimension Jones TBIL is not recommended. Protein [Mass/Vol] 5.6 g/dL 6.4-8.2 [facility] Blood platelet adequacy dete ction by light microscopyOrdered By: Tanika Kunz on 11-10-2022 Platelets LM Ql (Bld) MOD DEC ADEQ [facility] Direct bilirubinOrdered By: Tanika Kunz on 11-10-2022 Bilirubin.direct [Mass/Vol] 0.19 mg/dL 0.00-0.30 [facility] - Chemistry and C hemistry - challengeOrdered By: Tanika Kunz on 11-10-2022 ALP [Catalytic activity/Vol] 82 U/L 45-117 [facility] ALT [Catalytic activity/Vol] 32 U/L 16-61 [facility] Globulin (S) [Mass/Vol] 3.0 g/dL 2.2-4.2 [facility] Serum or plasma albumin yessi urement (mass/volume)Ordered By: Tanika Kunz on 11-10-2022 Albumin [Mass/Vol] 2.6 g/dL 3.2-5.0 [facility] Thin prep Papanicolaou smear with manual screeningOrdered By: Tanika Kunz on 11-10-2022 Thin prep Papanicolaou smear with manual screening 42 U/L 15-37 [facility] Serum or plasma albumin/glob ulin mass ratioOrdered By: Bridgett Villagomez on 11-09-2022 Albumin/Globulin [Mass ratio] 1.0 {ratio} 0.9-2.4 [facility] Absolute lymphocyte countOrd ered By: Jann Hoffmann on 11-08-2022 Lymphocytes Auto (Unsp spec) [#/Vol] 0.60 10*3/uL 0.83-4.51 [facility] Basophil percentageOrdered B y: Jann Hoffmann on 11-08-2022 Basophil percentage 0-5 SEEN /hpf 0-5 [facility] Basophils/100 WBC (Bld) 0.2 % 0-1 [facility] Bilirubin [Mass/Vol] 2.90 mg/dL 0.20-1.00 [facility] Comment on above: For patients on eltr ombopag therapy, use of Dimension Jones TBIL is not recommended. Chloride [Moles/Vol] 100 mmol/L 98-107 [facility] Eosinophils/100 WBC (Bld) 0.8 % 0-5 [facility] Glucose [Mass/Vol] 244 mg/dL 74-106 [facility] Comment on above: Glucose result great er than or equal to 200 mg/dLsuggests DIABETES MELLITUS per A.D.A. criteria. Neutrophils (Bld) [#/Vol] 9.7 10*3/uL 2.0-7.7 [facility] Neutrophils/100 WBC (Bld) 88.3 % 47-70 [facility] Potassium [Moles/Vol] 3.9 mmol/L 3.5-5.1 [facility] Protein [Mass/Vol] 6.4 g/dL 6.4-8.2 [facility] Sodium [Moles/Vol] 134 mmol/L 136-145 [facility] WBC (Bld) [#/Vol] 11.0 10*3/uL 4.4-11.0 [facility] Bilirubin Test strip Ql (U)O rdered By: Jann Hoffmann on 11-08-2022 Bilirubin Ql (U) Negative Negative [facility] Blood erythrocytes count (nu mber/volume)Ordered By: Jann Hoffmann on 11-08-2022 RBC (Bld) [#/Vol] 4.88 10*6/uL 4.6-6.2 [facility] Blood hemoglobin measurement (mass/volume)Ordered By: Jann Hoffmann on 11-08-2022 Hemoglobin (Bld) [Mass/Vol] 15.0 g/dL 13.0-16.5 [facility] Blood lymphocytes/100 leukoc ytesOrdered By: Jann Hoffmann on 11-08-2022 Lymphocytes/100 WBC (Bld) 5.4 % 19-41 [facility] Blood manual differential co mment interpretation (narrative result)Ordered By: Jann Hoffmann on 11-08-2022 Manual differential comment Lito (Bld) [Interp] SCANNED [facility] Blood monocytes/100 leukocyt esOrdered By: Jann Hoffmann on 11-08-2022 Monocytes/100 WBC (Bld) 4.8 % 0-10 [facility] Blood platelet mean volumeOr dered By: Jann Hoffmann on 11-08-2022 Platelet mean volume (Bld) [Entitic vol] 9.6 fL 6.2-12.0 [facility] Determination of erythrocyte mean corpuscular volume (MCV)Ordered By: Jann Hoffmann on 11-08-2022 MCV (RBC) [Entitic vol] 87.9 fL 80-94 [facility] Hematocrit Auto (Bld) [Volum e fraction]Ordered By: Jann Hoffmann on 11-08-2022 Hematocrit (Bld) [Volume fraction] 42.9 % 40-54 [facility] Ketones Test strip Ql (U)Ord ered By: Jann Hoffmann on 11-08-2022 Ketones Ql (U) 5 mg/dl Negative [facility] - Chemistry and C hemistry - challengeOrdered By: Jann Hoffmann on 11-08-2022 ALP [Catalytic activity/Vol] 115 U/L 45-117 [facility] ALT [Catalytic activity/Vol] 42 U/L 16-61 [facility] CO2 [Moles/Vol] 23.0 mmol/L 21.0-32.0 [facility] Globulin (S) [Mass/Vol] 3.0 g/dL 2.2-4.2 [facility] Urea nitrogen/Creatinine [Mass ratio] 10.4 mg/mg 10-20 [facility] - Hematology and Cell countsOrdered By: Jann Hoffmann on 11-08-2022 Erythrocyte distribution width (RBC) [Entitic vol] 38.0 fL 35.1-43.9 [facility] Erythrocyte distribution width (RBC) [Ratio] 11.9 % 11.6-14.6 [facility] Immature granulocytes/100 WBC (Bld) 0.500 % 0.0-0.9 [facility] Comment on above: IG% - Immature Granu locytes (promyelocytes, myelocytes and metamyelocytes) > 1% indicates that a LEFT SHIFT is Present. MCH (RBC) [Entitic mass] 30.7 pg 27.0-32.0 [facility] Nucleated RBC/100 WBC (Bld) [Ratio] 0 % 0-5 [facility] - Microbiology an d Antimicrobial susceptibilityOrdered By: Yifan Meza on 11-08-2022 SARS-CoV-2 (COVID-19) RNA LILLIAN+probe Ql (Unsp spec) [facility] MCHC Auto (RBC) [Mass/Vol]Or dered By: Jann Hoffmann on 11-08-2022 MCHC (RBC) [Mass/Vol] 35.0 g/dL 32-36 [facility] Mucus LM Ql (Urine sed)Order ed By: Jann Hoffmann on 11-08-2022 Mucus Ql (Urine sed) 0 SEEN /hpf [facility] Nitrite Test strip Ql (U)Ord ered By: Jann Hoffmann on 11-08-2022 Nitrite Ql (U) Negative Negative [facility] No Panel InformationOrdered By: Jann Hoffmann on 11-08-2022 Estimated Creatinine Clearance Calc 72.16 ml/min [facility] Estimated GFR (MDRD) Amer 88 mL/min >60 [facility] Comment on above: GFR Calc Estimated GFR (MDRD) Non-Af Amer 73 mL/min >60 [facility] Comment on above: Non- GFR Calc Troponin I High Sensitivity 9 pg/mL 3.0-78.0 [facility] Comment on above: Please Note: New Felicita t Units and Gender Specific Reference Ranges. For more information see Policy Stat Procedure Jones High Sensitivity Troponin (TNIH) and attachments. Platelets bldOrdered By: Marquita Hoffmann on 11-08-2022 Platelets (Bld) [#/Vol] 107 10*3/uL 150-450 [facility] Protein Test strip Ql (U)Ord ered By: Jann Hoffmann on 11-08-2022 Protein Ql (U) 15 mg/dl Negative [facility] Serum or plasma albumin yessi urement (mass/volume)Ordered By: Jann Hoffmann on 11-08-2022 Albumin [Mass/Vol] 3.4 g/dL 3.2-5.0 [facility] Serum or plasma albumin/glob ulin mass ratioOrdered By: Jann Hoffmann on 11-08-2022 Albumin/Globulin [Mass ratio] 1.1 {ratio} 0.9-2.4 [facility] Serum or plasma calcium yessi urement (mass/volume)Ordered By: Jann Hoffmann on 11-08-2022 Calcium [Mass/Vol] 8.3 mg/dL 8.5-10.1 [facility] Serum or plasma creatinine m easurement (mass/volume)Ordered By: Jann Hoffmann on 11-08-2022 Creatinine [Mass/Vol] 1.06 mg/dL 0.70-1.30 [facility] Comment on above: The validity of the calculated GFR & GFRAA in patients over 70 years has not been determined. Clinical correlation is essential. Serum or plasma urea nitroge n measurement (mass/volume)Ordered By: Jann Hoffmann on 11-08-2022 Urea nitrogen [Mass/Vol] 11 mg/dL 7-18 [facility] Serum procalcitonin measurem entOrdered By: Bridgett Villagomez on 11-08-2022 Procalcitonin [Mass/Vol] 0.06 ng/mL 0.00-0.09 [facility] Comment on above: A procalcitonin (PCT ) [...] Ql (Urine sed) 0 SEEN /hpf 0-5 [facility] Thin prep Papanicolaou smear with manual screeningOrdered By: Jann Hoffmann on 11-08-2022 Thin prep Papanicolaou smear with manual screening 25 U/L 15-37 [facility] Thin prep Papanicolaou smear with manual screening 11 5-15 [facility] Urine blood detectionOrdered By: Jann Hoffmann on 11-08-2022 RBC Ql (U) 25 /ul Negative [facility] RBC Ql (U) 0-5 SEEN /hpf 0-5 [facility] Urine clarityOrdered By: Marquita Hoffmann on 11-08-2022 Clarity (U) Clear Clear [facility] Urine color determinationOrd ered By: Jann Hoffmann on 11-08-2022 Color (U) Yellow Yellow [facility] Urine glucose detectionOrder ed By: Jann Hoffmann on 11-08-2022 Glucose Ql (U) 1000 mg/dl Normal [facility] Urine leukocyte esterase det ection by dipstickOrdered By: Jann Hoffmann on 11-08-2022 Leukocyte esterase Test strip Ql (U) 25 /ul Negative [facility] Urine pHOrdered By: Jann rayo on 11-08-2022 pH (U) 5.0 [pH] 5.0 - 8.0 [facility] Urine sediment bacteria coun t by microscopy (number/high power field)Ordered By: Jann Hoffmann on 11-08-2022 Bacteria LM.HPF (Urine sed) [#/Area] 0 /[HPF] None Seen [facility] Urine specific gravity measu rementOrdered By: Jann Hoffmann on 11-08-2022 Specific gravity (U) [Rel density] 1.020 1.002-1.03 0 [facility] Urobilinogen Auto test strip Ql (U)Ordered By: Jann Hoffmann on 11-08-2022 Urobilinogen Ql (U) 1 mg/dl Normal [facility] XR WRIST MINIMUM 3 VIEWS RIG [...] Date: 04/30/2021 7:45:14 AM Ordering Provider: MILAD SNOW [facility] [place] CT MAXILLOFACIAL W/O CONTRAS Ton 04-21-2021 CT [...] Date: 02/26/2021 7:16:20 PM Ordering Provider: JACKSON NOVA [facility] [place] .Auto Diffon 03-01-2021 Basophil, Absolute 0.00 10 3/mcL Normal 0.00-0.19 [facility] Comment on above: Performed By: #### C BC, ADIFF, ANEU, GFR, CMP, PRO, LAC #### [address] [address] Basophils/100 WBC (Bld) 0.1 % Normal 0.0-2.5 [facility] ([place]) Comment on above: Performed By: #### C BC, ADIFF, ANEU, GFR, CMP, PRO, LAC #### [address] [address] Eosinophil, Absolute 0.10 10 3/mcL Normal 0.00-0.40 [facility] ([place]) Comment on above: Performed By: #### C BC, ADIFF, ANEU, GFR, CMP, PRO, LAC #### [address] [address] Eosinophils/100 WBC (Bld) 1.1 % Normal 0.0-7.0 [facility] ([place]) Comment on above: Performed By: #### C BC, ADIFF, ANEU, GFR, CMP, PRO, LAC #### [address] [address] Lymphocyte, Absolute 0.40 10 3/mcL Low 0.77-3.85 [facility] ([place]) Comment on above: Performed By: #### C BC, ADIFF, ANEU, GFR, CMP, PRO, LAC #### [address] [address] Lymphocytes/100 WBC (Bld) 5.2 % Low 10.0-50.0 [facility] ([place]) Comment on above: Performed By: #### C BC, ADIFF, ANEU, GFR, CMP, PRO, LAC #### [address] [address] Monocyte, Absolute 0.60 10 3/mcL Normal 0.15-1.00 [facility] [place] Comment on above: Performed By: #### C BC, ADIFF, ANEU, GFR, CMP, PRO, LAC #### [address] [place] [address] Monocytes/100 WBC (Bld) 7.6 % Normal 1.7-13.0 [facility] ([place]) Comment on above: Performed By: #### C BC, ADIFF, ANEU, GFR, CMP, PRO, LAC #### [address] [address] Neutrophils/100 WBC (Bld) 86.0 % High 37.0-80.0 [facility] ([place]) Comment on above: Performed By: #### C BC, ADIFF, ANEU, GFR, CMP, PRO, LAC #### [address] [address] .GFRon 03-01-2021 GFR 106 ml/min/1.73sqm Normal [facility] ([place]) Comment on above: Result Comment: GFR Population [...] ADIFF, ANEU, GFR, CMP, PRO, LAC #### [address] [address] GFR Non- 88 ml/min/1.73sqm Normal [facility] ([place]) Comment on above: Result Comment: GFR Population [...] ADIFF, ANEU, GFR, CMP, PRO, LAC #### [address] [address] .NEUABSon 03-01-2021 Neutrophil, Absolute 6.60 10 3/mcL High 2.85-6.16 [facility] ([place]) Comment on above: Performed By: #### C BC, ADIFF, ANEU, GFR, CMP, PRO, LAC #### [place] [id number] CBCon 03-01-2021 Erythrocyte distribution width (RBC) [Ratio] 12.7 % Normal 11.5-14.5 [facility] ([place]) Comment on above: Performed By: #### C BC, ADIFF, ANEU, GFR, CMP, PRO, LAC #### [place] [id number] Hematocrit (Bld) [Volume fraction] 38.6 % Low 42.0-52.0 [facility] ([place]) Comment on above: Performed By: #### C BC, ADIFF, ANEU, GFR, CMP, PRO, LAC #### [place] [phone] Hgb 13.8 G/dL Low 14.0-18.0 [facility] ([place]) Comment on above: Performed By: #### C BC, ADIFF, ANEU, GFR, CMP, PRO, LAC #### [place] 879627 MCH (RBC) [Entitic mass] 29.8 pg Normal 27.0-31.2 [facility] ([place]) Comment on above: Performed By: #### C BC, ADIFF, ANEU, GFR, CMP, PRO, LAC #### [place] 879627 MCHC 35.6 G/dL High 31.8-35.4 [facility] ([place]) Comment on above: Performed By: #### C BC, ADIFF, ANEU, GFR, CMP, PRO, LAC #### [address] [address] MCV (RBC) [Entitic vol] 83.8 fL Normal 80.0-94.0 [facility] ([place]) Comment on above: Performed By: #### C BC, ADIFF, ANEU, GFR, CMP, PRO, LAC #### [address] [address] Platelet 256 10 3/mcL Normal 130-400 [facility] ([place]) Comment on above: Performed By: #### C BC, ADIFF, ANEU, GFR, CMP, PRO, LAC #### [address] [address] Platelet mean volume (Bld) [Entitic vol] 6.5 fL Low 7.4-10.4 [facility] ([place]) Comment on above: Performed By: #### C BC, ADIFF, ANEU, GFR, CMP, PRO, LAC #### [address] [address] RBC 4.61 10 6/mcL Normal 4.04-6.13 [facility] ([place]) Comment on above: Performed By: #### C BC, ADIFF, ANEU, GFR, CMP, PRO, LAC #### [address] [address] WBC 7.60 10 3/mcL Normal 4.60-10.80 [facility] ([place]) Comment on above: Performed By: #### C BC, ADIFF, ANEU, GFR, CMP, PRO, LAC #### [address] [address] CMPon 03-01-2021 Albumin Level 2.3 G/dL Low 3.4-4.8 [facility] ([place]) Comment on above: Performed By: #### C BC, ADIFF, ANEU, GFR, CMP, PRO, LAC #### [address] [address] Albumin/Globulin [Mass ratio] 0.8 {ratio} Low 1.1-2.5 [facility] ([place]) Comment on above: Performed By: #### C BC, ADIFF, ANEU, GFR, CMP, PRO, LAC #### [address] [address] ALP [Catalytic activity/Vol] 82 U/L Normal 40-135 [facility] ([place]) Comment on above: Performed By: #### C BC, ADIFF, ANEU, GFR, CMP, PRO, LAC #### [address] [address] ALT [Catalytic activity/Vol] 42 U/L Normal 16-63 [facility] ([place]) Comment on above: Performed By: #### C BC, ADIFF, ANEU, GFR, CMP, PRO, LAC #### [address] [address] AST [Catalytic activity/Vol] 27 U/L Normal 10-40 [facility] ([place]) Comment on above: Performed By: #### C BC, ADIFF, ANEU, GFR, CMP, PRO, LAC #### [address] [address] Bili Total 2.1 mg/dL High 0.2-1.0 [facility] ([place]) Comment on above: Result Comment: Use of this assay is not recommended for patients undergoing treatment with eltrombopag due to the potential for falsely elevated results. Performed By: #### C BC, ADIFF, ANEU, GFR, CMP, PRO, LAC #### [address] [address] BUN/Creatinine Ratio 16 ratio Normal 7-27 [facility] ([place]) Comment on above: Performed By: #### C BC, ADIFF, ANEU, GFR, CMP, PRO, LAC #### [address] [address] Calcium [Mass/Vol] 7.6 mg/dL Low 8.4-10.2 [facility] ([place]) Comment on above: Performed By: #### C BC, ADIFF, ANEU, GFR, CMP, PRO, LAC #### [address] [address] Chloride [Moles/Vol] 101 mmol/L Normal 98-107 [facility] ([place]) Comment on above: Performed By: #### C BC, ADIFF, ANEU, GFR, CMP, PRO, LAC #### [place] 8[address]27 CO2 [Moles/Vol] 22 mmol/L Low 23-31 [facility] ([place]) Comment on above: Performed By: #### C BC, ADIFF, ANEU, GFR, CMP, PRO, LAC #### [place] 879627 Creatinine [Mass/Vol] 0.86 mg/dL Normal 0.70-1.30 [facility] [place] Comment on above: Performed By: #### C BC, ADIFF, ANEU, GFR, CMP, PRO, LAC #### [address] [address] Electrolyte Balance 14.0 mEq/L Normal [facility] ([place]) Comment on above: Performed By: #### C BC, ADIFF, ANEU, GFR, CMP, PRO, LAC #### [address] [address] Globulin 3.0 G/dL Normal [facility] ([place]) Comment on above: Performed By: #### C BC, ADIFF, ANEU, GFR, CMP, PRO, LAC #### [address] [address] Glucose [Mass/Vol] 159 mg/dL High 83-110 [facility] ([place] Comment on above: Performed By: #### C BC, ADIFF, ANEU, GFR, CMP, PRO, LAC #### [place] 879627 Potassium [Moles/Vol] 3.6 mmol/L Normal 3.5-5.1 [facility] [place] Comment on above: Performed By: #### C BC, ADIFF, ANEU, GFR, CMP, PRO, LAC #### [address] [address] Sodium [Moles/Vol] 137 mmol/L Normal 136-145 [facility] ([place]) Comment on above: Performed By: #### C BC, ADIFF, ANEU, GFR, CMP, PRO, LAC #### [place] [id number] [place], [place] [address] Total Protein 5.3 G/dL Low 6.4-8.2 [facility] ([place]) Comment on above: Performed By: #### C BC, ADIFF, ANEU, GFR, CMP, PRO, LAC #### [address] [address] Urea nitrogen [Mass/Vol] 14 mg/dL Normal 7-18 [facility]) Comment on above: Performed By: #### C BC, ADIFF, ANEU, GFR, CMP, PRO, LAC #### [address] [address] CRPon 03-01-2021 C-Reactive Protein 11.4 mg/dL High 0.0-0.9 [facility] ([place] Comment on above: Performed By: #### C BC, ADIFF, ANEU, GFR, CMP, PRO, LAC #### [address] [address] DIMERon 03-01-2021 D-Dimer 3542 ng/mL D-DU High 0-230 [facility] ([place]) Comment on above: Result Comment: The result [...] ADIFF, ANEU, GFR, CMP, PRO, LAC #### [place] [id number] [place], [place] [address] Kristina 03-01-2021 Ferritin [Mass/Vol] 612.5 ng/mL High 26.0-388.0 [facility] ([place]) Comment on above: Performed By: #### C BC, ADIFF, ANEU, GFR, CMP, PRO, LAC #### [place] [id number] [place], [place] [address] FIBon 03-01-2021 Fibrinogen 927 mg/dL High 334-713 [facility] ([place]) Comment on above: Performed By: #### C BC, ADIFF, ANEU, GFR, CMP, PRO, LAC #### [place] [id number] [place], [place] [address] LABORATORYOrdered By: Yesy Bradley on 03-01-2021 Albumin [...] LDHon 03-01-2021 LDH 289 U/L High 85-227 [facility] ([place]) Comment on above: Performed By: #### C BC, ADIFF, ANEU, GFR, CMP, PRO, LAC #### [address] [address] MGon 03-01-2021 Magnesium [Mass/Vol] 2.0 mg/dL Normal 1.8-2.4 [facility] ([place]) Comment on above: Performed By: #### C BC, ADIFF, ANEU, GFR, CMP, PRO, LAC #### [address] [address] PROon 03-01-2021 INR Coag (PPP) [Relative time] 1.2 {INR} Normal 0.9-1.2 [facility] ([place]) Comment on above: Result Comment: Miguel dard [...] ADIFF, ANEU, GFR, CMP, PRO, LAC #### [address] [address] PT Coag (PPP) [Time] 13.8 s Normal 9.7-14.3 [facility] ([place]) Comment on above: Performed By: #### C BC, ADIFF, ANEU, GFR, CMP, PRO, LAC #### [address] [address] TROPHSon 03-01-2021 Troponin I High Sensitivity 21.8 ng/L Normal 0.0-76.2 [facility] ([place]) Comment on above: Performed By: #### C BC, ADIFF, ANEU, GFR, CMP, PRO, LAC #### [address] [address] XR CHEST 1 VIEWon 03-01-2021 XR CHEST [...] 03/01/2021 8:25:08 AM Ordering Provider: CROW Rojas [facility] ([place]) .Auto Diffon 02-28-2021 Basophil, Absolute 0.00 10 3/mcL Normal 0.00-0.19 [facility] [place] Comment on above: Performed By: #### C BC, ADIFF, ANEU, GFR, CMP, PRO, LAC #### [address] [address] Basophils/100 WBC (Bld) 0.1 % Normal 0.0-2.5 [facility] ([place]) Comment on above: Performed By: #### C BC, ADIFF, ANEU, GFR, CMP, PRO, LAC #### [address] [address] Eosinophil, Absolute 0.00 10 3/mcL Normal 0.00-0.40 [facility] ([place]) Comment on above: Performed By: #### C BC, ADIFF, ANEU, GFR, CMP, PRO, LAC #### [address] [address] Eosinophils/100 WBC (Bld) 0.4 % Normal 0.0-7.0 [facility] ([place]) Comment on above: Performed By: #### C BC, ADIFF, ANEU, GFR, CMP, PRO, LAC #### [address] [address] Lymphocyte, Absolute 0.60 10 3/mcL Low 0.77-3.85 [facility] ([place]) Comment on above: Performed By: #### C BC, ADIFF, ANEU, GFR, CMP, PRO, LAC #### [address] [address] Lymphocytes/100 WBC (Bld) 6.8 % Low 10.0-50.0 [facility] ([place]) Comment on above: Performed By: #### C BC, ADIFF, ANEU, GFR, CMP, PRO, LAC #### [address] [address] Monocyte, Absolute 0.50 10 3/mcL Normal 0.15-1.00 [facility] [place] Comment on above: Performed By: #### C BC, ADIFF, ANEU, GFR, CMP, PRO, LAC #### [address] [address] Monocytes/100 WBC (Bld) 6.0 % Normal 1.7-13.0 [facility] ([place]) Comment on above: Performed By: #### C BC, ADIFF, ANEU, GFR, CMP, PRO, LAC #### [address] [address] Neutrophils/100 WBC (Bld) 86.7 % High 37.0-80.0 [facility] ([place]) Comment on above: Performed By: #### C BC, ADIFF, ANEU, GFR, CMP, PRO, LAC #### [address] [address] .GFRon 02-28-2021 GFR 103 ml/min/1.73sqm Normal [facility] ([place]) Comment on above: Result Comment: GFR Population [...] ADIFF, ANEU, GFR, CMP, PRO, LAC #### [address] [address] GFR Non- 85 ml/min/1.73sqm Normal [facility] ([place]) Comment on above: Result Comment: GFR Population [...] mL/min/1.73 square meters Performed By: #### C BC ADRICKI, ANEU, GFR, CMP, PRO, LAC #### [address] [address] .NEUABSon 02-28-2021 Neutrophil, Absolute 7.80 10 3/mcL High 2.85-6.16 [facility] ([place]) Comment on above: Performed By: #### C BC ADIFF, ANEU, GFR, CMP, PRO, LAC #### [address] [address] CBCon 02-28-2021 Erythrocyte distribution width (RBC) [Ratio] 12.7 % Normal 11.5-14.5 [facility] ([place]) Comment on above: Performed By: #### C BC, ADIFF, ANEU, GFR, CMP, PRO, LAC #### [address] [address] Hematocrit (Bld) [Volume fraction] 38.5 % Low 42.0-52.0 [facility] ([place]) Comment on above: Performed By: #### C BC, ADIFF, ANEU, GFR, CMP, PRO, LAC #### [address] [address] Hgb 13.8 G/dL Low 14.0-18.0 [facility] ([place]) Comment on above: Performed By: #### C BC, ADIFF, ANEU, GFR, CMP, PRO, LAC #### [address] [address] MCH (RBC) [Entitic mass] 30.2 pg Normal 27.0-31.2 [facility] ([place]) Comment on above: Performed By: #### C BC, ADIFF, ANEU, GFR, CMP, PRO, LAC #### [address] [address] MCHC 35.8 G/dL High 31.8-35.4 [facility] ([place]) Comment on above: Performed By: #### C BC, ADIFF, ANEU, GFR, CMP, PRO, LAC #### [address] [address] MCV (RBC) [Entitic vol] 84.2 fL Normal 80.0-94.0 [facility] ([place]) Comment on above: Performed By: #### C BC, ADIFF, ANEU, GFR, CMP, PRO, LAC #### [address] [address] Platelet 225 10 3/mcL Normal 130-400 [facility] ([place]) Comment on above: Performed By: #### C BC, ADIFF, ANEU, GFR, CMP, PRO, LAC #### [address] [address] Platelet mean volume (Bld) [Entitic vol] 6.6 fL Low 7.4-10.4 [facility] ([place]) Comment on above: Performed By: #### C BC, ADIFF, ANEU, GFR, CMP, PRO, LAC #### [address] [address] RBC 4.57 10 6/mcL Normal 4.04-6.13 [facility] ([place]) Comment on above: Performed By: #### C BC, ADIFF, ANEU, GFR, CMP, PRO, LAC #### [address] [address] WBC 9.00 10 3/mcL Normal 4.60-10.80 [facility] ([place]) Comment on above: Performed By: #### C BC, ADIFF, ANEU, GFR, CMP, PRO, LAC #### [address] [address] CMPon 02-28-2021 Albumin Level 2.5 G/dL Low 3.4-4.8 [facility] ([place]) Comment on above: Performed By: #### C BC, ADIFF, ANEU, GFR, CMP, PRO, LAC #### [address] [address] Albumin/Globulin [Mass ratio] 0.8 {ratio} Low 1.1-2.5 [facility] ([place]) Comment on above: Performed By: #### C BC, ADIFF, ANEU, GFR, CMP, PRO, LAC #### [address] [address] ALP [Catalytic activity/Vol] 73 U/L Normal 40-135 [facility] ([place]) Comment on above: Performed By: #### C BC, ADIFF, ANEU, GFR, CMP, PRO, LAC #### [address] [address] ALT [Catalytic activity/Vol] 44 U/L Normal 16-63 [facility] ([place]) Comment on above: Performed By: #### C BC, ADIFF, ANEU, GFR, CMP, PRO, LAC #### [address] [address] AST [Catalytic activity/Vol] 29 U/L Normal 10-40 [facility] ([place]) Comment on above: Performed By: #### C BC, ADIFF, ANEU, GFR, CMP, PRO, LAC #### [address] [address] Bili Total 2.0 mg/dL High 0.2-1.0 [facility] ([place]) Comment on above: Result Comment: Use of this assay is not recommended for patients undergoing treatment with eltrombopag due to the potential for falsely elevated results. Performed By: #### C BC, ADIFF, ANEU, GFR, CMP, PRO, LAC #### [address] [address] BUN/Creatinine Ratio 15 ratio Normal 7-27 [facility] ([place]) Comment on above: Performed By: #### C BC, ADIFF, ANEU, GFR, CMP, PRO, LAC #### [address] [address] Calcium [Mass/Vol] 7.8 mg/dL Low 8.4-10.2 [facility] ([place] Comment on above: Performed By: #### C BC, ADIFF, ANEU, GFR, CMP, PRO, LAC #### [address] [address] Chloride [Moles/Vol] 102 mmol/L Normal 98-107 [facility] ([place]) Comment on above: Performed By: #### C BC, ADIFF, ANEU, GFR, CMP, PRO, LAC #### [address] [address] CO2 [Moles/Vol] 24 mmol/L Normal 23-31 [facility] ([place]) Comment on above: Performed By: #### C BC, ADIFF, ANEU, GFR, CMP, PRO, LAC #### [address] [address] Creatinine [Mass/Vol] 0.88 mg/dL Normal 0.70-1.30 [facility] [place] Comment on above: Performed By: #### C BC, ADIFF, ANEU, GFR, CMP, PRO, LAC #### [address] [address] Electrolyte Balance 10.0 mEq/L Normal [facility] ([place]) Comment on above: Performed By: #### C BC, ADIFF, ANEU, GFR, CMP, PRO, LAC #### [address] [address] Globulin 3.0 G/dL Normal [facility] ([place]) Comment on above: Performed By: #### C BC, ADIFF, ANEU, GFR, CMP, PRO, LAC #### [address] [address] Glucose [Mass/Vol] 154 mg/dL High 83-110 [facility] ([place] Comment on above: Performed By: #### C BC, ADIFF, ANEU, GFR, CMP, PRO, LAC #### [address] [address] Potassium [Moles/Vol] 3.8 mmol/L Normal 3.5-5.1 [facility] [place] Comment on above: Performed By: #### C BC, ADIFF, ANEU, GFR, CMP, PRO, LAC #### [address] [address] Sodium [Moles/Vol] 136 mmol/L Normal 136-145 [facility] ([place] Comment on above: Performed By: #### C BC, ADIFF, ANEU, GFR, CMP, PRO, LAC #### [address] [address] Total Protein 5.5 G/dL Low 6.4-8.2 [facility] ([place]) Comment on above: Performed By: #### C BC, ADIFF, ANEU, GFR, CMP, PRO, LAC #### [address] [address] Urea nitrogen [Mass/Vol] 13 mg/dL Normal 7-18 [facility] ([place]) Comment on above: Performed By: #### C BC, ADIFF, ANEU, GFR, CMP, PRO, LAC #### [address] [address] CRPon 02-28-2021 C-Reactive Protein 11.4 mg/dL High 0.0-0.9 [facility] ([place] Comment on above: Performed By: #### C BC, ADIFF, ANEU, GFR, CMP, PRO, LAC #### [address] [address] DIMERon 02-28-2021 D-Dimer 2603 ng/mL D-DU High 0-230 [facility] ([place]) Comment on above: Result Comment: The result [...] ADIFF, ANEU, GFR, CMP, PRO, LAC #### [address] [address] Kristina 02-28-2021 Ferritin [Mass/Vol] 611.0 ng/mL High 26.0-388.0 [facility] ([place]) Comment on above: Performed By: #### C BC, ADIFF, ANEU, GFR, CMP, PRO, LAC #### [address] [address] FIBon 02-28-2021 Fibrinogen 802 mg/dL High 334-713 [facility] ([place]) Comment on above: Performed By: #### C BC, ADIFF, ANEU, GFR, CMP, PRO, LAC #### [address] [address] LABORATORYOrdered By: Rosie Carrillo on 02-28-2021 Blood Glucose Testing Reason Routine (02/28/21 10:24 PM) [facility] Work Phone: Glucose [Mass/Vol] 169 mg/dL Invalid Interpretation Code 82 - 115 mg/dL [facility] Work Phone: LABORATORYOrdered By: Ana Bird on 02-28-2021 Blood Glucose Testing Reason Routine (02/28/21 9:43 PM) [facility] Work Phone: Glucose [Mass/Vol] 169 mg/dL Invalid Interpretation Code 82 - 115 mg/dL [facility] Work Phone: LABORATORYOrdered By: Vicki Tejada on 02-28-2021 Blood Glucose Testing Reason Routine (02/28/21 11:39 AM) [facility] Work Phone: Glucose [Mass/Vol] 157 mg/dL Invalid Interpretation Code 82 - 115 mg/dL [facility] Work Phone: LABORATORYOrdered By: Yesy Braldey on 02-28-2021 Albumin BCP dye [Mass/Vol] 2.5 [...] LDHon 02-28-2021 LDH 329 U/L High 85-227 [facility] ([place]) Comment on above: Performed By: #### C BC, ADIFF, ANEU, GFR, CMP, PRO, LAC #### [address] [address] MGon 02-28-2021 Magnesium [Mass/Vol] 2.3 mg/dL Normal 1.8-2.4 [facility] ([place]) Comment on above: Performed By: #### C BC, ADIFF, ANEU, GFR, CMP, PRO, LAC #### [address] [address] MYCOon 02-28-2021 Mycoplasma IgG Positive Normal [facility] ([place]) Comment on above: Result Comment: INTE RPRETATION [...] ADIFF, ANEU, GFR, CMP, PRO, LAC #### [address] [address] Mycoplasma IgM Negative Normal [facility] ([place]) Comment on above: Result Comment: INTE RPRETATION [...] ADIFF, ANEU, GFR, CMP, PRO, LAC #### [address] [address] PROon 02-28-2021 INR Coag (PPP) [Relative time] 1.1 {INR} Normal 0.9-1.2 [facility] ([place]) Comment on above: Result Comment: Miguel dard [...] ADIFF, ANEU, GFR, CMP, PRO, LAC #### [address] [address] PT Coag (PPP) [Time] 12.6 s Normal 9.7-14.3 [facility] ([place]) Comment on above: Performed By: #### C BC, ADIFF, ANEU, GFR, CMP, PRO, LAC #### [address] [address] TROPHSon 02-28-2021 Troponin I High Sensitivity 16.4 ng/L Normal 0.0-76.2 [facility] ([place]) Comment on above: Performed By: #### C BC, ADIFF, ANEU, GFR, CMP, PRO, LAC #### [address] [address] .Auto Diffon 02-27-2021 Basophil, Absolute 0.00 10 3/mcL Normal 0.00-0.19 [facility] [place] Comment on above: Performed By: #### C BC, ADIFF, ANEU, GFR, CMP, PRO, LAC #### [address] [address] Basophils/100 WBC (Bld) 0.0 % Normal 0.0-2.5 [facility] ([place]) Comment on above: Performed By: #### C BC, ADIFF, ANEU, GFR, CMP, PRO, LAC #### [address] [address] Eosinophil, Absolute 0.00 10 3/mcL Normal 0.00-0.40 [facility] ([place]) Comment on above: Performed By: #### C BC, ADIFF, ANEU, GFR, CMP, PRO, LAC #### [address] [address] Eosinophils/100 WBC (Bld) 0.0 % Normal 0.0-7.0 [facility] ([place]) Comment on above: Performed By: #### C BC, ADIFF, ANEU, GFR, CMP, PRO, LAC #### [address] [address] Lymphocyte, Absolute 0.30 10 3/mcL Low 0.77-3.85 [facility] ([place]) Comment on above: Performed By: #### C BC, ADIFF, ANEU, GFR, CMP, PRO, LAC #### [address] [address] Lymphocytes/100 WBC (Bld) 2.9 % Low 10.0-50.0 [facility] ([place] Comment on above: Performed By: #### C BC, ADIFF, ANEU, GFR, CMP, PRO, LAC #### [address] [address] Monocyte, Absolute 0.30 10 3/mcL Normal 0.15-1.00 [facility] [place] Comment on above: Performed By: #### C BC, ADIFF, ANEU, GFR, CMP, PRO, LAC #### [address] [address] Monocytes/100 WBC (Bld) 3.3 % Normal 1.7-13.0 [facility] ([place]) Comment on above: Performed By: #### C BC, ADIFF, ANEU, GFR, CMP, PRO, LAC #### [address] [address] Neutrophils/100 WBC (Bld) 93.8 % High 37.0-80.0 [facility] ([place]) Comment on above: Performed By: #### C BC, ADIFF, ANEU, GFR, CMP, PRO, LAC #### [address] [address] .GFRon 02-27-2021 GFR 95 ml/min/1.73sqm Normal [facility] ([place]) Comment on above: Result Comment: GFR Population [...] ADIFF, ANEU, GFR, CMP, PRO, LAC #### [address] [address] GFR Non- 78 ml/min/1.73sqm Normal [facility] ([place]) Comment on above: Result Comment: GFR Population [...] ADIFF, ANEU, GFR, CMP, PRO, LAC #### [address] [address] GFR 109 ml/min/1.73sqm Normal [facility] ([place] Comment on above: Result Comment: GFR Population [...] ADIFF, ANEU, GFR, CMP, PRO, LAC #### [address] [address] GFR Non- 90 ml/min/1.73sqm Normal [facility] ([place] Comment on above: Result Comment: GFR Population [...] ADIFF, ANEU, GFR, CMP, PRO, LAC #### [address] [address] .NEUABSon 02-27-2021 Neutrophil, Absolute 8.90 10 3/mcL High 2.85-6.16 [facility] ([place]) Comment on above: Performed By: #### C BC, ADIFF, ANEU, GFR, CMP, PRO, LAC #### [address] [address] ABGon 02-27-2021 Base excess Calc (Bld) [Moles/Vol] -1.0000 mmol/L Normal -2.4-2.3 [facility] ([place]) Comment on above: Performed By: #### C BC, ADIFF, ANEU, GFR, CMP, PRO, LAC #### [address] [address] CO2 [Moles/Vol] 23 mmol/L Normal 19-24 [facility] ([place]) Comment on above: Performed By: #### C BC, ADIFF, ANEU, GFR, CMP, PRO, LAC #### [address] [address] HCO3 (Bld) [Moles/Vol] 22.3 mmol/L Normal 22.0-26.0 [facility] ([place]) Comment on above: Performed By: #### C BC, ADIFF, ANEU, GFR, CMP, PRO, LAC #### [address] [address] Oxygen (Bld) [Partial pressure] 65.0 mm[Hg] Low 80.0-100.0 [facility] ([place]) Comment on above: Performed By: #### C BC, ADIFF, ANEU, GFR, CMP, PRO, LAC #### [address] [address] Oxygen saturation in Blood 94 % Low 95-98 [facility] ([place] Comment on above: Performed By: #### C BC, ADIFF, ANEU, GFR, CMP, PRO, LAC #### [address] [address] pCO2 29.4 mmHg Low 35.0-45.0 [facility] ([place]) Comment on above: Performed By: #### C BC, ADIFF, ANEU, GFR, CMP, PRO, LAC #### [address] [address] pH (Bld) 7.49 [pH] High 7.35-7.45 [facility] ([place]) Comment on above: Performed By: #### C BC, ADIFF, ANEU, GFR, CMP, PRO, LAC #### [address] [address] BMPon 02-27-2021 BUN/Creatinine Ratio 14 ratio Normal 7-27 [facility] ([place]) Comment on above: Performed By: #### C BC, ADIFF, ANEU, GFR, CMP, PRO, LAC #### [address] [address] Calcium [Mass/Vol] 7.6 mg/dL Low 8.4-10.2 [facility] ([place]) Comment on above: Performed By: #### C BC, ADIFF, ANEU, GFR, CMP, PRO, LAC #### [place] [id number] Chloride [Moles/Vol] 100 mmol/L Normal 98-107 [facility] ([place]) Comment on above: Performed By: #### C BC, ADIFF, ANEU, GFR, CMP, PRO, LAC #### [place] [address] CO2 [Moles/Vol] 22 mmol/L Low 23-31 [facility] ([place]) Comment on above: Performed By: #### C BC, ADIFF, ANEU, GFR, CMP, PRO, LAC #### [address] [address] Creatinine [Mass/Vol] 0.95 mg/dL Normal 0.70-1.30 [facility] [place]) Comment on above: Performed By: #### C BC, ADIFF, ANEU, GFR, CMP, PRO, LAC #### [address] [address] Electrolyte Balance 13.0 mEq/L Normal [facility] ([place]) Comment on above: Performed By: #### C BC, ADIFF, ANEU, GFR, CMP, PRO, LAC #### [address] [address] Glucose [Mass/Vol] 225 mg/dL High 83-110 [facility] ([place]) Comment on above: Performed By: #### C BC, ADIFF, ANEU, GFR, CMP, PRO, LAC #### [address] [address] Potassium [Moles/Vol] 3.4 mmol/L Low 3.5-5.1 [facility] [place]) Comment on above: Performed By: #### C BC, ADIFF, ANEU, GFR, CMP, PRO, LAC #### [address] [address] Sodium [Moles/Vol] 135 mmol/L Low 136-145 [facility] ([place]) Comment on above: Performed By: #### C BC, ADIFF, ANEU, GFR, CMP, PRO, LAC #### [address] [address] Urea nitrogen [Mass/Vol] 13 mg/dL Normal 7-18 [facility] ([place]) Comment on above: Performed By: #### C BC, ADIFF, ANEU, GFR, CMP, PRO, LAC #### [address] [address] BUN/Creatinine Ratio 14 ratio Normal 7-27 [facility] ([place]) Comment on above: Performed By: #### C BC, ADIFF, ANEU, GFR, CMP, PRO, LAC #### [address] [address] Calcium [Mass/Vol] 7.2 mg/dL Low 8.4-10.2 [facility] ([place]) Comment on above: Performed By: #### C BC, ADIFF, ANEU, GFR, CMP, PRO, LAC #### [address] [address] Chloride [Moles/Vol] 100 mmol/L Normal 98-107 [facility] ([place]) Comment on above: Performed By: #### C BC, ADIFF, ANEU, GFR, CMP, PRO, LAC #### [address] [address] CO2 [Moles/Vol] 20 mmol/L Low 23-31 [facility] ([place]) Comment on above: Performed By: #### C BC, ADIFF, ANEU, GFR, CMP, PRO, LAC #### [address] [address] Creatinine [Mass/Vol] 0.84 mg/dL Normal 0.70-1.30 [facility] [place]) Comment on above: Performed By: #### C BC, ADIFF, ANEU, GFR, CMP, PRO, LAC #### [address] [address] Electrolyte Balance 14.0 mEq/L Normal [facility] ([place]) Comment on above: Performed By: #### C BC, ADIFF, ANEU, GFR, CMP, PRO, LAC #### [place] [phone] Glucose [Mass/Vol] 203 mg/dL High 83-110 [facility] ([place]) Comment on above: Performed By: #### C BC, ADIFF, ANEU, GFR, CMP, PRO, LAC #### [place] [address]27 Potassium [Moles/Vol] 3.4 mmol/L Low 3.5-5.1 [facility] [place]) Comment on above: Performed By: #### C BC, ADIFF, ANEU, GFR, CMP, PRO, LAC #### [place] [phone] Sodium [Moles/Vol] 134 mmol/L Low 136-145 [facility] ([place]) Comment on above: Performed By: #### C BC, ADIFF, ANEU, GFR, CMP, PRO, LAC #### [address] [address] Urea nitrogen [Mass/Vol] 12 mg/dL Normal 7-18 [facility] ([place]) Comment on above: Performed By: #### C BC, ADIFF, ANEU, GFR, CMP, PRO, LAC #### [address] [address] CBCon 02-27-2021 Erythrocyte distribution width (RBC) [Ratio] 12.7 % Normal 11.5-14.5 [facility] ([place]) Comment on above: Performed By: #### C BC, ADIFF, ANEU, GFR, CMP, PRO, LAC #### [address] [address] Hematocrit (Bld) [Volume fraction] 36.8 % Low 42.0-52.0 [facility] ([place]) Comment on above: Performed By: #### C BC, ADIFF, ANEU, GFR, CMP, PRO, LAC #### [place] [address]27 Hgb 13.3 G/dL Low 14.0-18.0 [facility] ([place]) Comment on above: Performed By: #### C BC, ADIFF, ANEU, GFR, CMP, PRO, LAC #### [address] [address] MCH (RBC) [Entitic mass] 30.2 pg Normal 27.0-31.2 [facility] ([place]) Comment on above: Performed By: #### C BC, ADIFF, ANEU, GFR, CMP, PRO, LAC #### [address] [address] MCHC 36.2 G/dL High 31.8-35.4 [facility] ([place]) Comment on above: Performed By: #### C BC, ADIFF, ANEU, GFR, CMP, PRO, LAC #### [address] [address] MCV (RBC) [Entitic vol] 83.5 fL Normal 80.0-94.0 [facility] ([place]) Comment on above: Performed By: #### C BC, ADIFF, ANEU, GFR, CMP, PRO, LAC #### [address] [address] Platelet 228 10 3/mcL Normal 130-400 [facility] ([place]) Comment on above: Performed By: #### C BC, ADIFF, ANEU, GFR, CMP, PRO, LAC #### [address] [address] Platelet mean volume (Bld) [Entitic vol] 6.7 fL Low 7.4-10.4 [facility]) Comment on above: Performed By: #### C BC, ADIFF, ANEU, GFR, CMP, PRO, LAC #### [address] [address] RBC 4.40 10 6/mcL Normal 4.04-6.13 [facility]) Comment on above: Performed By: #### C BC, ADIFF, ANEU, GFR, CMP, PRO, LAC #### [place] [address] WBC 9.50 10 3/mcL Normal 4.60-10.80 [facility] ([place]) Comment on above: Performed By: #### C BC, ADIFF, ANEU, GFR, CMP, PRO, LAC #### [address] [address] CRPon 02-27-2021 CRP [Mass/Vol] mg/L High 0.0-0.9 [facility]) Comment on above: Performed By: #### C BC, ADIFF, ANEU, GFR, CMP, PRO, LAC #### [address] [address] Kristina 02-27-2021 Ferritin [Mass/Vol] 489.0 ng/mL High 26.0-388.0 [facility]) Comment on above: Performed By: #### C BC, ADIFF, ANEU, GFR, CMP, PRO, LAC #### [address] [address] FIBon 02-27-2021 Fibrinogen 884 mg/dL High 334-713 [facility]) Comment on above: Performed By: #### C BC, ADIFF, ANEU, GFR, CMP, PRO, LAC #### [address] [address] LABORATORYOrdered By: Jaylene Gaffney on 02-27-2021 Natriuretic [...] 02-27-2021 Mycoplasma IgG Positive Invalid Interpretation Code Auto Viro/Sero SS LACon 02-27-2021 Lactic Acid Lvl 1.5 mmol/L Normal 0.4-2.0 [facility] ([place]) Comment on above: Performed By: #### C BC, ADIFF, ANEU, GFR, CMP, PRO, LAC #### [address] [place] [address] Lactic Acid Lvl 2.7 mmol/L High 0.4-2.0 [facility] ([place]) Comment on above: Performed By: #### C BC, ADIFF, ANEU, GFR, CMP, PRO, LAC #### [place] [phone] [place], [place] [address] LDHon 02-27-2021 LDH 379 U/L High 85-227 [facility] ([place]) Comment on above: Performed By: #### C BC, ADIFF, ANEU, GFR, CMP, PRO, LAC #### [address] [address] MGon 02-27-2021 Magnesium [Mass/Vol] 1.7 mg/dL Low 1.8-2.4 [facility] ([place]) Comment on above: Performed By: #### C BC, ADIFF, ANEU, GFR, CMP, PRO, LAC #### [address] [address] No Panel Informationon 02-27 Legionella Urine Ag Presumptive negative for L. pneumophila serogroup 1 antigen in urine, suggesting no recent or current infection. Legionnaire's disease cannot be ruled out since other serogroups and species may also cause disease. [facility] Work Phone: Streptococcus Pneumoniae Urine Antig Presumptive negative for pneumococcal pneumonia, suggesting no current or recent pneumococcal infection. Infection due to Strep pneumoniae cannot be ruled out since the antigen present in the sample may be below the detection limit of the test. [facility] Work Phone: Comment on above: This test has not be en evaluated on patients taking antibiotics for greater than 24 hours or on patients who have recently completed an antibiotic regimen. The accuracy of this test has not been proven in young children. PBNPon 02-27-2021 Natriuretic peptide B (Bld) [Mass/Vol] 1235 pg/mL High 0-125 [facility] ([place]) Comment on above: Result Comment: NT-p roBNP results of less than 300 pg/mL effectively rules out acute congestive heart failure with 99% negative predictive value. Performed By: #### C BC, ADIFF, ANEU, GFR, CMP, PRO, LAC #### [address] [address] PROon 02-27-2021 INR Coag (PPP) [Relative time] 1.2 {INR} Normal 0.9-1.2 [facility] ([place]) Comment on above: Result Comment: Miguel dard [...] ADIFF, ANEU, GFR, CMP, PRO, LAC #### [address] [address] PT Coag (PPP) [Time] 13.3 s Normal 9.7-14.3 [facility] ([place]) Comment on above: Performed By: #### C BC, ADIFF, ANEU, GFR, CMP, PRO, LAC #### [address] [address] TROPHSon 02-27-2021 Troponin I High Sensitivity 34.3 ng/L Normal 0.0-76.2 [facility] ([place]) Comment on above: Performed By: #### C BC, ADIFF, ANEU, GFR, CMP, PRO, LAC #### [address] [address] .Auto Diffon 02-26-2021 Basophil, Absolute 0.00 10 3/mcL Normal 0.00-0.19 [facility] [place]) Comment on above: Performed By: #### C BC, ADIFF, ANEU, GFR, CMP, PRO, LAC #### [address] [address] Basophils/100 WBC (Bld) 0.1 % Normal 0.0-2.5 A [facility] ([place]) Comment on above: Performed By: #### C BC, ADIFF, ANEU, GFR, CMP, PRO, LAC #### [address] [address] Eosinophil, Absolute 0.00 10 3/mcL Normal 0.00-0.40 A [facility] ([place]) Comment on above: Performed By: #### C BC, ADIFF, ANEU, GFR, CMP, PRO, LAC #### [address] [address] Eosinophils/100 WBC (Bld) 0.0 % Normal 0.0-7.0 [facility] ([place]) Comment on above: Performed By: #### C BC, ADIFF, ANEU, GFR, CMP, PRO, LAC #### [address] [address] Lymphocyte, Absolute 0.30 10 3/mcL Low 0.77-3.85 [facility] ([place]) Comment on above: Performed By: #### C BC, ADIFF, ANEU, GFR, CMP, PRO, LAC #### [address] [address] Lymphocytes/100 WBC (Bld) 2.8 % Low 10.0-50.0 [facility] ([place]) Comment on above: Performed By: #### C BC, ADIFF, ANEU, GFR, CMP, PRO, LAC #### [address] [address] Monocyte, Absolute 0.50 10 3/mcL Normal 0.15-1.00 [facility] [place]) Comment on above: Performed By: #### C BC, ADIFF, ANEU, GFR, CMP, PRO, LAC #### [address] [address] Monocytes/100 WBC (Bld) 5.1 % Normal 1.7-13.0 A [facility] ([place]) Comment on above: Performed By: #### C BC, ADIFF, ANEU, GFR, CMP, PRO, LAC #### [address] [address] Neutrophils/100 WBC (Bld) 92.0 % High 37.0-80.0 [facility] ([place]) Comment on above: Performed By: #### C BC, ADIFF, ANEU, GFR, CMP, PRO, LAC #### [address] [address] .GFRon 02-26-2021 GFR 74 ml/min/1.73sqm Normal [facility] ([place]) Comment on above: Result Comment: GFR Population [...] ADIFF, ANEU, GFR, CMP, PRO, LAC #### [address] [address] GFR Non- 61 ml/min/1.73sqm Normal [facility] ([place]) Comment on above: Result Comment: GFR Population [...] ADIFF, ANEU, GFR, CMP, PRO, LAC #### [address] [address] .NEUABSon 02-26-2021 Neutrophil, Absolute 9.80 10 3/mcL High 2.85-6.16 A [facility] ([place]) Comment on above: Performed By: #### C BC, ADIFF, ANEU, GFR, CMP, PRO, LAC #### [place] [address] .Urinalysis Microscopic (AO) on 02-26-2021 UA RBC 0-5 Abnormal None Seen [facility] ([place]) Comment on above: Performed By: #### C BC, ADIFF, ANEU, GFR, CMP, PRO, LAC #### [place] [address] UA Squam Epithelial None Seen Normal None Seen [facility] ([place]) Comment on above: Performed By: #### C BC, ADIFF, ANEU, GFR, CMP, PRO, LAC #### [place] [address] UA Transitional Epithelial 0-5 Abnormal [facility] ([place]) Comment on above: Performed By: #### C BC, ADIFF, ANEU, GFR, CMP, PRO, LAC #### [place] [address] UA WBC 0-5 Abnormal None Seen [facility] ([place]) Comment on above: Performed By: #### C BC, ADIFF, ANEU, GFR, CMP, PRO, LAC #### [place] [address] CBCon 02-26-2021 Erythrocyte distribution width (RBC) [Ratio] 12.7 % Normal 11.5-14.5 [facility] ([place]) Comment on above: Performed By: #### C BC, ADIFF, ANEU, GFR, CMP, PRO, LAC #### [place] [address] Hematocrit (Bld) [Volume fraction] 44.8 % Normal 42.0-52.0 [facility] ([place]) Comment on above: Performed By: #### C BC, ADIFF, ANEU, GFR, CMP, PRO, LAC #### [place] [address] Hgb 15.8 G/dL Normal 14.0-18.0 [facility] ([place]) Comment on above: Performed By: #### C BC, ADIFF, ANEU, GFR, CMP, PRO, LAC #### [address] [address] MCH (RBC) [Entitic mass] 29.9 pg Normal 27.0-31.2 [facility] ([place]) Comment on above: Performed By: #### C BC, ADIFF, ANEU, GFR, CMP, PRO, LAC #### [place] [address] MCHC 35.3 G/dL Normal 31.8-35.4 [facility] ([place]) Comment on above: Performed By: #### C BC, ADIFF, ANEU, GFR, CMP, PRO, LAC #### [place] [address] MCV (RBC) [Entitic vol] 84.6 fL Normal 80.0-94.0 [facility] ([place]) Comment on above: Performed By: #### C BC, ADIFF, ANEU, GFR, CMP, PRO, LAC #### [place] [id number] Platelet 269 10 3/mcL Normal 130-400 [facility] ([place]) Comment on above: Performed By: #### C BC, ADIFF, ANEU, GFR, CMP, PRO, LAC #### [place] [address] Platelet mean volume (Bld) [Entitic vol] 6.7 fL Low 7.4-10.4 [facility] ([place]) Comment on above: Performed By: #### C BC, ADIFF, ANEU, GFR, CMP, PRO, LAC #### [place] [phone] RBC 5.30 10 6/mcL Normal 4.04-6.13 [facility] ([place]) Comment on above: Performed By: #### C BC, ADIFF, ANEU, GFR, CMP, PRO, LAC #### [address] [address] WBC 10.70 10 3/mcL Normal 4.60-10.80 [facility] ([place]) Comment on above: Performed By: #### C BC, ADIFF, ANEU, GFR, CMP, PRO, LAC #### [address] [address] CMPon 02-26-2021 Albumin Level 3.0 G/dL Low 3.4-4.8 [facility] ([place]) Comment on above: Performed By: #### C BC, ADIFF, ANEU, GFR, CMP, PRO, LAC #### [address] [address] Albumin/Globulin [Mass ratio] 0.9 {ratio} Low 1.1-2.5 [facility] ([place]) Comment on above: Performed By: #### C BC, ADIFF, ANEU, GFR, CMP, PRO, LAC #### [address] [address] ALP [Catalytic activity/Vol] 93 U/L Normal 40-135 [facility] ([place]) Comment on above: Performed By: #### C BC, ADIFF, ANEU, GFR, CMP, PRO, LAC #### [address] [address] ALT [Catalytic activity/Vol] 63 U/L Normal 16-63 [facility] ([place]) Comment on above: Performed By: #### C BC, ADIFF, ANEU, GFR, CMP, PRO, LAC #### [address] [address] AST [Catalytic activity/Vol] 37 U/L Normal 10-40 [facility] ([place]) Comment on above: Performed By: #### C BC, ADIFF, ANEU, GFR, CMP, PRO, LAC #### [address] [address] Bili Total 2.0 mg/dL High 0.2-1.0 [facility] ([place]) Comment on above: Result Comment: Use of this assay is not recommended for patients undergoing treatment with eltrombopag due to the potential for falsely elevated results. Performed By: #### C BC, ADIFF, ANEU, GFR, CMP, PRO, LAC #### [address] [address] BUN/Creatinine Ratio 12 ratio Normal 7-27 [facility] ([place]) Comment on above: Performed By: #### C BC, ADIFF, ANEU, GFR, CMP, PRO, LAC #### [address] [address] Calcium [Mass/Vol] 8.2 mg/dL Low 8.4-10.2 [facility] ([place]) Comment on above: Performed By: #### C BC, ADIFF, ANEU, GFR, CMP, PRO, LAC #### [address] [address] Chloride [Moles/Vol] 96 mmol/L Low 98-107 [facility]) Comment on above: Performed By: #### C BC, ADIFF, ANEU, GFR, CMP, PRO, LAC #### [address] [address] CO2 [Moles/Vol] 22 mmol/L Low 23-31 [facility] ([place]) Comment on above: Performed By: #### C BC, ADIFF, ANEU, GFR, CMP, PRO, LAC #### [address] [address] Electrolyte Balance 16.0 mEq/L Normal [facility] ([place]) Comment on above: Performed By: #### C BC, ADIFF, ANEU, GFR, CMP, PRO, LAC #### [address] [address] Globulin 3.3 G/dL Normal [facility] ([place]) Comment on above: Performed By: #### C BC, ADIFF, ANEU, GFR, CMP, PRO, LAC #### [address] [address] Glucose [Mass/Vol] 253 mg/dL High 83-110 [facility] ([place] Comment on above: Performed By: #### C BC, ADIFF, ANEU, GFR, CMP, PRO, LAC #### [address] [address] Potassium [Moles/Vol] 3.5 mmol/L Normal 3.5-5.1 [facility] [place] Comment on above: Performed By: #### C BC, ADIFF, ANEU, GFR, CMP, PRO, LAC #### [place] [phone] Sodium [Moles/Vol] 134 mmol/L Low 136-145 [facility] ([place] Comment on above: Performed By: #### C BC, ADIFF, ANEU, GFR, CMP, PRO, LAC #### [place] [phone] Total Protein 6.3 G/dL Low 6.4-8.2 [facility]) Comment on above: Performed By: #### C BC, ADIFF, ANEU, GFR, CMP, PRO, LAC #### [place] [phone] Urea nitrogen [Mass/Vol] 14 mg/dL Normal 7-18 [facility] ([place]) Comment on above: Performed By: #### C BC, ADIFF, ANEU, GFR, CMP, PRO, LAC #### [address] [address] Creatinine [Mass/Vol] 1.17 mg/dL Normal 0.70-1.30 [facility] [place] Comment on above: Performed By: #### C BC, ADIFF, ANEU, GFR, CMP, PRO, LAC #### [address] [address] [address] ANGIOGRAPHY CHEST W/CONTR Angel 02-26-2021 CT [...] 02/26/2021 7:19:29 PM Ordering Provider: [facility]) CT HEAD OR BRAIN W/O CONTRAS Ton [...] 02/26/2021 7:11:51 PM Ordering Provider: [facility]) CT SPINE CERVICAL W/O CONTRA STon 02-26-2021 [...] 02/26/2021 7:13:03 PM Ordering Provider: J[facility]) LABORATORYOrdered By: Caitlin Crowley on 02-26-2021 Lactate [...] Lactic Acid Lvl 3.5 mmol/L High 0.4-2.0 [facility] ([place]) Comment on above: Order Comment: Order ed secondary to Lactic Acid result greater than or equal to 2.0 Performed By: #### C BC, ADIFF, ANEU, GFR, CMP, PRO, LAC #### [address] [address] Lactic Acid Lvl 5.1 mmol/L High 0.4-2.0 [facility] ([place]) Comment on above: Performed By: #### C BC, ADIFF, ANEU, GFR, CMP, PRO, LAC #### [address] [address] No Panel Informationon 02-26 Microscopic examination of blood, culture Culture has been received in lab and is no growth to date. Routine cultures are held for 5 days. [facility] Work Phone: PBNPon 02-26-2021 Natriuretic peptide B (Bld) [Mass/Vol] 553 pg/mL High 0-125 [facility] ([place] Comment on above: Result Comment: NT-p roBNP results of less than 300 pg/mL effectively rules out acute congestive heart failure with 99% negative predictive value. Performed By: #### T ROPHS, PBNP #### [address] [address] PROon 02-26-2021 INR Coag (PPP) [Relative time] 1.0 {INR} Normal 0.9-1.2 [facility] ([place]) Comment on above: Result Comment: Miguel dard [...] ADIFF, ANEU, GFR, CMP, PRO, LAC #### [address] [address] PT Coag (PPP) [Time] 12.0 s Normal 9.7-14.3 [facility] ([place]) Comment on above: Performed By: #### C BC, ADIFF, ANEU, GFR, CMP, PRO, LAC #### [address] [address] TROPHSon 02-26-2021 Troponin I High Sensitivity 22.0 ng/L Normal 0.0-76.2 [facility] ([place]) Comment on above: Performed By: #### T CHANTEL, PBNP #### [place] [address] UAon 02-26-2021 Color (U) Yellow Normal [facility] ([place] Comment on above: Performed By: #### U A, UAMICAO #### [place] [address] Glucose (U) [Mass/Vol] 100 mg/dL Abnormal Negative [facility] ([place]) Comment on above: Performed By: #### U A, UAMICAO #### [place] [address] Ketones Ql (U) Negative Normal Negative [facility] ([place]) Comment on above: Performed By: #### U A, UAMICAO #### [address] [address] UA Appear Clear Normal Clear [facility] ([place] Comment on above: Performed By: #### U A, UAMICAO #### [address] [address] UA Blood Trace Abnormal Negative [facility] ([place]) Comment on above: Performed By: #### U A, UAMICAO #### [address] [address] UA Leuk Est Negative Normal Negative [facility] ([place]) Comment on above: Performed By: #### U A, UAMICAO #### [address] [address] UA Nitrite Negative Normal Negative [facility] ([place]) Comment on above: Performed By: #### U A, UAMICAO #### [place] [address]27 UA pH 5.5 Normal 5.0 - 8.0 [facility] ([place]) Comment on above: Performed By: #### U A, UAMICAO #### [place] [address] UA Protein 30 mg/dL Normal Negative [facility] ([place]) Comment on above: Performed By: #### U A, UAMICAO #### [place] [address] UA Spec Grav 1.025 Normal 1.015-1.02 5 [facility] ([place]) Comment on above: Performed By: #### U A, UAMICAO #### [place] [address] UA Specimen Type Clean Catch Normal [facility] ([place]) Comment on above: Performed By: #### U A, UAMICAO #### [place] [address] UA Urobilinogen 0.2 E.U./dL Normal 0.2-1.0 [facility] ([place] Comment on above: Performed By: #### U A, UAMICAO #### [place] [address] Urobilinogen (U) [Mass/Vol] Negative Normal Negative [facility] ([place] Comment on above: Performed By: #### U A, UAMICAO #### [place] [address] CBC W Auto Differential pane l (Bld)on 02-18-2021 Basophils (Bld) [#/Vol] 10*3/uL Normal <0.11 A [facility] Comment on above: Order Comment: Speci men Type: BLOOD SPECIMEN Performed By: #### 2 4320-05, [facility], 1987-08 #### [facility] CLIA [id number] [address] Basophils/100 WBC (Bld) 0.2 % Normal A [facility] Comment on above: Order Comment: Speci men Type: BLOOD SPECIMEN Performed By: #### 2 4320-05, [facility], 1987-08 #### [facility] CLIA [id number] [address] Differential cell count method Nom (Bld) Auto Normal [facility] Comment on above: Order Comment: Speci men Type: BLOOD SPECIMEN Performed By: #### 2 4320-05, [facility], 1987-08 #### [facility] CLIA [id number] [address] [place] Eosinophils (Bld) [#/Vol] 10*3/uL Normal <0.46 [facility] Comment on above: Order Comment: Speci men Type: BLOOD SPECIMEN Performed By: #### 2 4320-05, [facility], 1987-08 #### [facility] CLIA [id number] [address] Eosinophils/100 WBC (Bld) 0.0 % Normal [facility] Comment on above: Order Comment: Speci men Type: BLOOD SPECIMEN Performed By: #### 2 4320-05, [facility], 1987-08 #### [facility] CLIA [id number] [address] Erythrocyte distribution width (RBC) [Ratio] 11.9 % Normal 11.5-15.0 [facility] Comment on above: Order Comment: Speci men Type: BLOOD SPECIMEN Performed By: #### 2 4320-05, [facility], 1987-08 #### [facility] CLIA [id number] [address] Hematocrit (Bld) [Volume fraction] 47.5 % Normal 39.0-51.0 [facility] Comment on above: Order Comment: Speci men Type: BLOOD SPECIMEN Performed By: #### 2 4320-05, [facility], 1987-08 #### [facility] CLIA [id number] [address] Hemoglobin (Bld) [Mass/Vol] 16.4 g/dL Normal 13.0-17.0 [facility] Comment on above: Order Comment: Speci men Type: BLOOD SPECIMEN Performed By: #### 2 4320-05, [facility], 1987-08 #### [facility] CLIA [id number] [address] IMMATURE GRAN % 0.2 % Normal [facility] Comment on above: Order Comment: Speci men Type: BLOOD SPECIMEN Performed By: #### 2 4320-05, [facility], 1987-08 #### [facility] CLIA [id number] [address] IMMATURE GRAN ABS <0.03 Normal <0.10 [facility] Comment on above: Order Comment: Speci men Type: BLOOD SPECIMEN Performed By: #### 2 4320-05, [facility], 1987-08 #### [facility] CLIA [id number] [address] Lymphocytes (Bld) [#/Vol] 0.98 10*3/uL Low 1.00-4.00 [facility] Comment on above: Order Comment: Speci men Type: BLOOD SPECIMEN Performed By: #### 2 4320-05, [facility], 1987-08 #### [facility] CLIA [id number] [address] Lymphocytes/100 WBC (Bld) 20.5 % Normal [facility] Comment on above: Order Comment: Speci men Type: BLOOD SPECIMEN Performed By: #### 2 4320-05, [facility], 1987-08 #### [facility] CLIA [id number] [address] MCH (RBC) [Entitic mass] 29.7 pg Normal 26.0-34.0 [facility] Comment on above: Order Comment: Speci men Type: BLOOD SPECIMEN Performed By: #### 2 4320-05, [facility], 1987-08 #### [facility] CLIA [id number] [address] MCHC (RBC) [Mass/Vol] 34.5 g/dL Normal 30.5-36.0 [facility] Comment on above: Order Comment: Speci men Type: BLOOD SPECIMEN Performed By: #### 2 4320-05, [facility], 1987-08 #### [facility] CLIA [id number] [address] MCV (RBC) [Entitic vol] 85.9 fL Normal 80.0-100.0 [facility] Comment on above: Order Comment: Speci men Type: BLOOD SPECIMEN Performed By: #### 2 4320-05, [facility], 1987-08 #### [facility] CLIA [id number] [address] Monocytes (Bld) [#/Vol] 0.34 10*3/uL Normal <0.87 [facility] Comment on above: Order Comment: Speci men Type: BLOOD SPECIMEN Performed By: #### 2 4320-05, [facility], 1987-08 #### [facility] CLIA [id number] [address] Monocytes/100 WBC (Bld) 7.1 % Normal [facility] Comment on above: Order Comment: Speci men Type: BLOOD SPECIMEN Performed By: #### 2 4320-05, [facility], 1987-08 #### [facility] CLIA [id number] [address] Neutrophils (Bld) [#/Vol] 3.43 10*3/uL Normal 1.45-7.50 [facility] Comment on above: Order Comment: Speci men Type: BLOOD SPECIMEN Performed By: #### 2 4320-05, [facility], 1987-08 #### [facility] CLIA [id number] [address] Neutrophils/100 WBC (Bld) 72.0 % Normal [facility] Comment on above: Order Comment: Speci men Type: BLOOD SPECIMEN Performed By: #### 2 4320-, [facility], 1987-08 #### [facility] CLIA [id number] [address] Nucleated RBC (Bld) [#/Vol] 10*3/uL Normal <0.01 [facility] Comment on above: Order Comment: Speci men Type: BLOOD SPECIMEN Performed By: #### 2 4320-, [facility], 1987-08 #### [facility] CLIA [id number] [address] Nucleated RBC/100 WBC (Bld) [Ratio] 0.0 /100 WBC Normal 0.0 [facility] Comment on above: Order Comment: Speci men Type: BLOOD SPECIMEN Performed By: #### 2 4320-05, [facility], 1987-08 #### [facility] CLIA [id number] [address] Platelet mean volume (Bld) [Entitic vol] 8.9 fL Low 9.0-12.7 [facility] Comment on above: Order Comment: Speci men Type: BLOOD SPECIMEN Performed By: #### 2 4320-05, [facility], 1987-08 #### [facility] CLIA [id number] [address] Platelets (Bld) [#/Vol] 139 10*3/uL Low 150-400 [facility] Comment on above: Order Comment: Speci men Type: BLOOD SPECIMEN Performed By: #### 2 4320-, [facility], 1987-08 #### [facility] CLIA [id number] [address] [place] RBC (Bld) [#/Vol] 5.53 10*6/uL Normal 4.20-6.00 [facility] Comment on above: Order Comment: Speci men Type: BLOOD SPECIMEN Performed By: #### 2 4321-2, [facility], 1987-08 #### [facility] CLIA [id number] [address] WBC (Bld) [#/Vol] 4.77 10*3/uL Normal 3.70-11.00 [facility] Comment on above: Order Comment: Speci men Type: BLOOD SPECIMEN Performed By: #### 2 432-2, [facility], 1987-08 #### [facility] CLIA [id number] [address] CNDSon 02-18-2021 CNDS HNO ID: [id number] Author: Renny Tenorio DO Service: Hospital Medicine [...] Renny Tenorio DO Primary Service: Farshad Brown MY CONDITION AT DISCHARGE: Stable REASON [...] THIS TIME: No pending results [facility]charge Disposition [facility] Activity When You Leave the Hospital Activity Resume pre-hospital activity Diet Instructions Diet Resume pre-hospital diet Follow Up Appointments Follow-Up Appointment When: In 1 week Danie Sawyer MD [place] [id number] [place] [phone] PCP Requested Referral Additional Provider to Provider Information: Treatment Team: Attending Provider: Renny Tenorio DO Primary Service: Farshad Brown FOLLOW-UP APPOINTMENTS ALREADY SCHEDULED WITH A [facility] PROVIDER: No future appointments. ALLERGIES No Known [...] TIME O (more content not included)... Normal [facility] Comprehensive metabolic 2000 panelon 02-18-2021 Albumin [Mass/Vol] 4.1 g/dL Normal 3.9-4.9 [facility] Comment on above: Order Comment: Speci men Type: BLOOD SPECIMEN Performed By: #### 2 4320-2, [facility], 1987-08 #### [facility] CLIA [id number] [address] STATES OF [facility] ALP [Catalytic activity/Vol] 95 U/L Normal 38-113 [facility] Comment on above: Order Comment: Speci men Type: BLOOD SPECIMEN Performed By: #### 2 4320-, [facility], 1987-08 #### [facility] CLIA [id number] [address] STATES OF [facility] ALT With P-5'-P [Catalytic activity/Vol] 76 U/L High 10-54 [facility] Comment on above: Order Comment: Speci men Type: BLOOD SPECIMEN Performed By: #### 2 4320-, [facility], 1987-08 #### [facility] CLIA [id number] [address] [place] Anion gap [Moles/Vol] 14 mmol/L Normal 9-18 [facility] Comment on above: Order Comment: Speci men Type: BLOOD SPECIMEN Performed By: #### 2 4320-2, [facility], 1987-08 #### [facility] CLIA [id number] [address] OF [facility] AST With P-5'-P [Catalytic activity/Vol] 72 U/L High 14-40 [facility] Comment on above: Order Comment: Speci men Type: BLOOD SPECIMEN Performed By: #### 2 4320-2, [facility], 1987-08 #### [facility] CLIA [id number] [address] STATES OF [facility] Bilirubin [Mass/Vol] 1.2 mg/dL Normal 0.2-1.3 [facility] Comment on above: Order Comment: Speci men Type: BLOOD SPECIMEN Performed By: #### 2 4320-05, [facility], 1987-08 #### [facility] CLIA [id number] [address] Calcium [Mass/Vol] 8.8 mg/dL Normal 8.5-10.2 [facility] Comment on above: Order Comment: Speci men Type: BLOOD SPECIMEN Performed By: #### 2 2, [facility], 1987-08 #### [facility] CLIA [id number] [address] [place] Chloride [Moles/Vol] 94 mmol/L Low 97-105 [facility] Comment on above: Order Comment: Speci men Type: BLOOD SPECIMEN Performed By: #### 2 4320-2, [facility], 1987-08 #### [facility] CLIA [id number] [address] [place] CO2 [Moles/Vol] 22 mmol/L Normal 22-30 [facility] Comment on above: Order Comment: Speci men Type: BLOOD SPECIMEN Performed By: #### 2 4320-2, [facility], 1987-08 #### [facility] CLIA [id number] [address] [place] Creatinine [Mass/Vol] 0.90 mg/dL Normal 0.73-1.22 [facility] Comment on above: Order Comment: Speci men Type: BLOOD SPECIMEN Performed By: #### 2 4321-2, [facility], 1987-08 #### [facility] CLIA [id number] [address] [place] GFR/1.73 sq M.predicted MDRD (S/P/Bld) [Vol rate/Area] mL/min/{1.73_m2} Normal [facility] Comment on above: Order [...] actual GFR. Performed By: #### 2 4321-2, [facility], 1987-08 #### [facility] CLIA [id number] [address] [place] Glucose [Mass/Vol] 104 mg/dL High 74-99 [facility] Comment on above: [facility] BLOOD SPECIM[facility] Result Comment: The [place] [employer] (ADA) provides guidance for cutoff [...] Standards of Medical Care in Diabetes 2016, [place] [employer]. Diabetes Care. 2016.39(Suppl 1). Performed By: #### 2 4320-2, [facility], 1987-08 #### [facility] CLIA [id number] [address] Potassium [Moles/Vol] 4.0 mmol/L Normal 3.7-5.1 [facility] Comment on above: Order Comment: Speci men Type: BLOOD SPECIMEN Performed By: #### 2 4320-2, [facility], 1987-08 #### [facility] CLIA [id number] [address] Protein [Mass/Vol] 6.9 g/dL Normal 6.3-8.0 [facility] Comment on above: Order Comment: Speci men Type: BLOOD SPECIMEN Performed By: #### 2 4320-, [facility], 1987-08 #### [facility] CLIA [id number] [address] Sodium [Moles/Vol] 130 mmol/L Low 136-144 [facility] Comment on above: Order Comment: Speci men Type: BLOOD SPECIMEN Performed By: #### 2 4320-05, [facility], 1987-08 #### [facility] CLIA [id number] [address] Urea nitrogen [Mass/Vol] 11 mg/dL Normal 9-24 [facility] Comment on above: Order Comment: Speci men Type: BLOOD SPECIMEN Performed By: #### 2 4320-2, [facility], 1987-08 #### [facility] CLIA [id number] [address] CBC W Auto Differential pane l (Bld)on 02-17-2021 Basophils (Bld) [#/Vol] 10*3/uL Normal <0.11 [facility] Comment on above: Order Comment: Speci men Type: BLOOD SPECIMEN Performed By: #### 5 7021-8 #### [facility] CLIA [id number] [address] Basophils/100 WBC (Bld) 0.0 % Normal [facility] Comment on above: Order Comment: Speci men Type: BLOOD SPECIMEN Performed By: #### 5 7021-8 #### [facility] CLIA [id number] [address] Differential cell count method Nom (Bld) Auto Normal [facility] Comment on above: Order Comment: Speci men Type: BLOOD SPECIMEN Performed By: #### 5 7021-8 #### [facility] CLIA [id number] [address] Eosinophils (Bld) [#/Vol] 10*3/uL Normal <0.46 [facility] Comment on above: Order Comment: Speci men Type: BLOOD SPECIMEN Performed By: #### 5 7021-8 #### [facility] CLIA [id number] [address] Eosinophils/100 WBC (Bld) 0.0 % Normal [facility] Comment on above: Order Comment: Speci men Type: BLOOD SPECIMEN Performed By: #### 5 7021-8 #### [facility] CLIA [id number] [address] Erythrocyte distribution width (RBC) [Ratio] 11.8 % Normal 11.5-15.0 [facility] Comment on above: Order Comment: Speci men Type: BLOOD SPECIMEN Performed By: #### 5 7021-8 #### [facility] CLIA [id number] [address] Hematocrit (Bld) [Volume fraction] 42.7 % Normal 39.0-51.0 [facility] Comment on above: Order Comment: Speci men Type: BLOOD SPECIMEN Performed By: #### 5 7021-8 #### [facility] CLIA [id number] [address] [place] Hemoglobin (Bld) [Mass/Vol] 15.0 g/dL Normal 13.0-17.0 [facility] Comment on above: Order Comment: Speci men Type: BLOOD SPECIMEN Performed By: #### 5 7021-8 #### [facility] CLIA [id number] [address] IMMATURE GRAN % 0.3 % Normal [facility] Comment on above: Order Comment: Speci men Type: BLOOD SPECIMEN Performed By: #### 5 7021-8 #### [facility] CLIA [id number] [address] IMMATURE GRAN ABS <0.03 Normal <0.10 [facility] Comment on above: Order Comment: Speci men Type: BLOOD SPECIMEN Performed By: #### 5 7021-8 #### [facility] CLIA [id number] [address] Lymphocytes (Bld) [#/Vol] 0.59 10*3/uL Low 1.00-4.00 [facility] Comment on above: Order Comment: Speci men Type: BLOOD SPECIMEN Performed By: #### 5 7021-8 #### [facility] CLIA [id number] [address] Lymphocytes/100 WBC (Bld) 20.3 % Normal [facility] Comment on above: Order Comment: Speci men Type: BLOOD SPECIMEN Performed By: #### 5 7021-8 #### [facility] CLIA [id number] [address] MCH (RBC) [Entitic mass] 30.1 pg Normal 26.0-34.0 [facility] Comment on above: Order Comment: Speci men Type: BLOOD SPECIMEN Performed By: #### 5 7021-8 #### [facility] CLIA [id number] [address] OF [facility] MCHC (RBC) [Mass/Vol] 35.1 g/dL Normal 30.5-36.0 [facility] Comment on above: Order Comment: Speci men Type: BLOOD SPECIMEN Performed By: #### 5 7021-8 #### [facility] CLIA [id number] [address] MCV (RBC) [Entitic vol] 85.6 fL Normal 80.0-100.0 [facility] Comment on above: Order Comment: Speci men Type: BLOOD SPECIMEN Performed By: #### 5 7021-8 #### [facility] CLIA [id number] [address] Monocytes (Bld) [#/Vol] 0.29 10*3/uL Normal <0.87 [facility] Comment on above: Order Comment: Speci men Type: BLOOD SPECIMEN Performed By: #### 5 7021-8 #### [facility] CLIA [id number] [address] Monocytes/100 WBC (Bld) 10.0 % Normal [facility] Comment on above: Order Comment: Speci men Type: BLOOD SPECIMEN Performed By: #### 5 7021-8 #### [facility] CLIA [id number] [address] Neutrophils (Bld) [#/Vol] 2.01 10*3/uL Normal 1.45-7.50 [facility] Comment on above: Order Comment: Speci men Type: BLOOD SPECIMEN Performed By: #### 5 7021-8 #### [facility] CLIA [id number] [address] Neutrophils/100 WBC (Bld) 69.4 % Normal [facility] Comment on above: Order Comment: Speci men Type: BLOOD SPECIMEN Performed By: #### 5 7021-8 #### [facility] CLIA [id number] [address] Nucleated RBC (Bld) [#/Vol] 10*3/uL Normal <0.01 [facility] Comment on above: Order Comment: Speci men Type: BLOOD SPECIMEN Performed By: #### 5 7021-8 #### [facility] CLIA [id number] [address] Nucleated RBC/100 WBC (Bld) [Ratio] 0.0 /100 WBC Normal 0.0 [facility] Comment on above: Order Comment: Speci men Type: BLOOD SPECIMEN Performed By: #### 5 7021-8 #### [facility] CLIA [id number] [address] Platelet mean volume (Bld) [Entitic vol] 9.0 fL Normal 9.0-12.7 [facility] Comment on above: Order Comment: Speci men Type: BLOOD SPECIMEN Performed By: #### 5 7021-8 #### [facility] CLIA [id number] [address] Platelets (Bld) [#/Vol] 109 10*3/uL Low 150-400 [facility] Comment on above: Order Comment: Speci men Type: BLOOD SPECIMEN Performed By: #### 5 7021-8 #### [facility] CLIA [id number] [address] RBC (Bld) [#/Vol] 4.99 10*6/uL Normal 4.20-6.00 [facility] Comment on above: Order Comment: Speci men Type: BLOOD SPECIMEN Performed By: #### 5 7021-8 #### [facility] CLIA [id number] [address] WBC (Bld) [#/Vol] 2.90 10*3/uL Low 3.70-11.00 [facility] Comment on above: Order Comment: Speci men Type: BLOOD SPECIMEN Performed By: #### 5 7021-8 #### [facility] CLIA [id number] [address] CRP SerPl-mCncon 02-17-2021 CRP [Mass/Vol] mg/L Normal <0.9 [facility] Comment on above: Order Comment: Speci men Type: BLOOD SPECIMEN Performed By: #### 2 4320-2, [facility], 1987-08 #### [facility] CLIA [id number] [address] Comprehensive metabolic 2000 panelon 02-17-2021 Albumin [Mass/Vol] 3.7 g/dL Low 3.9-4.9 [facility] Comment on above: Order Comment: Speci men Type: BLOOD SPECIMEN Performed By: #### 2 4320-2, [facility], 1987-08 #### [facility] CLIA [id number] [address] OF [facility] ALP [Catalytic activity/Vol] 85 U/L Normal 38-113 [facility] Comment on above: Order Comment: Speci men Type: BLOOD SPECIMEN Performed By: #### 2 4320-2, [facility], 1987-08 #### [facility] CLIA [id number] [address] ALT With P-5'-P [Catalytic activity/Vol] 51 U/L Normal 10-54 [facility] Comment on above: Order Comment: Speci men Type: BLOOD SPECIMEN Performed By: #### 2 4320-2, [facility], 1987-08 #### [facility] CLIA [id number] [address] Anion gap [Moles/Vol] 13 mmol/L Normal 9-18 [facility] Comment on above: Order Comment: Speci men Type: BLOOD SPECIMEN Performed By: #### 2 4320-2, [facility], 1987-08 #### [facility] CLIA [id number] [address] AST With P-5'-P [Catalytic activity/Vol] 48 U/L High 14-40 [facility] Comment on above: Order Comment: Speci men Type: BLOOD SPECIMEN Performed By: #### 2 4320-2, [facility], 1987-08 #### [facility] CLIA [id number] [address] Bilirubin [Mass/Vol] 1.2 mg/dL Normal 0.2-1.3 [facility] Comment on above: Order Comment: Speci men Type: BLOOD SPECIMEN Performed By: #### 2 4320-2, [facility], 1987-08 #### [facility] CLIA [id number] [address] Calcium [Mass/Vol] 8.1 mg/dL Low 8.5-10.2 [facility] Comment on above: Order Comment: Speci men Type: BLOOD SPECIMEN Performed By: #### 2 4320-2, [facility], 1987-08 #### [facility] CLIA [id number] [address] Chloride [Moles/Vol] 98 mmol/L Normal 97-105 [facility] Comment on above: Order Comment: Speci men Type: BLOOD SPECIMEN Performed By: #### 2 2, [facility], 1987-08 #### [facility] CLIA [id number] [address] STATES [facility] CO2 [Moles/Vol] 21 mmol/L Low 22-30 [facility] Comment on above: Order Comment: Speci men Type: BLOOD SPECIMEN Performed By: #### 2 4320-05, [facility], 1987-08 #### [facility] CLIA [id number] [address] [place] Creatinine [Mass/Vol] 0.87 mg/dL Normal 0.73-1.22 [facility] Comment on above: Order Comment: Speci men Type: BLOOD SPECIMEN Performed By: #### 2 2, [facility], 1987-08 #### [facility] CLIA [id number] [address] [place] GFR/1.73 sq M.predicted MDRD (S/P/Bld) [Vol rate/Area] mL/min/{1.73_m2} Normal [facility] Comment on above: Order [...] reflect actual GFR. Performed By: #### 2 432-, [facility], 1987-08 #### [facility] CLIA [id number] 1 [place] [address] [place] Glucose [Mass/Vol] 119 mg/dL High 74-99 [facility] Comment on above: Order Comment: Speci men Type: BLOOD SPECIMEN Result Comment: The [place] [employer] (ADA) provides guidance for cutoff [...] Standards of Medical Care in Diabetes 2016, [place] [employer]. Diabetes Care. 2016.39(Suppl 1). Performed By: #### 2 4320-, [facility], 1987-08 #### [facility] CLIA [id number] [address] [place] Potassium [Moles/Vol] 4.0 mmol/L Normal 3.7-5.1 [facility] Comment on above: Order Comment: Speci men Type: BLOOD SPECIMEN Performed By: #### 2 4321-2, [facility], 1987-08 #### [facility] CLIA [id number] 1 [place] [address] [place] Protein [Mass/Vol] 6.2 g/dL Low 6.3-8.0 [facility] Comment on above: Order Comment: Speci men Type: BLOOD SPECIMEN Performed By: #### 2 4320-2, [facility], 1987-08 #### [facility] CLIA [id number] [address] Sodium [Moles/Vol] 132 mmol/L Low 136-144 [facility] Comment on above: Order Comment: Speci men Type: BLOOD SPECIMEN Performed By: #### 2 4320-2, [facility], 1987-08 #### [facility] CLIA [id number] [address] Urea nitrogen [Mass/Vol] 13 mg/dL Normal 9-24 [facility] Comment on above: Order Comment: Speci men Type: BLOOD SPECIMEN Performed By: #### 2 2, [facility], 1987-08 #### [facility] CLIA [id number] [address] FERRITIN BLDon 02-17-2021 Ferritin [Mass/Vol] 316.9 ng/mL Normal 30.3-565.7 [facility] Comment on above: Order Comment: Speci men Type: BLOOD SPECIMEN Performed By: #### 2 2, [facility], 1987-08 #### [facility] CLIA [id number] [address] [place] NURSING PROGon 02-17-2021 NURSING PROG HNO ID: [id number] Author: Jalen Cunningham RN Service: ? Author Type: Registered Nurse Type: Nursing Progress Note Filed: 02/17/2021 9:28 AM Note Text: O2 sat on room air at rest 96% O2 sat on room air w/exertion 99% (patient unable to walk, weakness. Stood for about 2 minutes) Normal [facility] ALLIED HEALTHon 02-16-2021 ALLIED HEALTH HNO ID: [id number] Author: Dana Miller Service: Infection Prevention Author [...] TIME: 8:22 AM PAGER/CONTACT #: Infection Prevention, [id number] Infection Prevention after hours/weekend pager: [phone] Normal [facility] CBC W Auto Differential pane l (Bld)on 02-16-2021 Basophils (Bld) [#/Vol] 10*3/uL Normal <0.11 [facility] Comment on above: Order Comment: Speci men Type: BLOOD SPECIMEN Performed By: #### 2 4320-, [facility], 1987-08 #### [facility] CLIA [id number] [address] [place] Basophils/100 WBC (Bld) 0.0 % Normal [facility] Comment on above: Order Comment: Speci men Type: BLOOD SPECIMEN Performed By: #### 2 4320-2, [facility], 1987-08 #### [facility] CLIA [id number] [address] [place] Differential cell count method Nom (Bld) Auto Normal [facility] Comment on above: Order Comment: Speci men Type: BLOOD SPECIMEN Performed By: #### 2 4320-2, [facility], 1987-08 #### [facility] CLIA [id number] 1 [place] [address] [place] Eosinophils (Bld) [#/Vol] 10*3/uL Normal <0.46 [facility] Comment on above: Order Comment: Speci men Type: BLOOD SPECIMEN Performed By: #### 2 4320-05, [facility], 1987-08 #### [facility] CLIA [id number] [address] Eosinophils/100 WBC (Bld) 0.0 % Normal [facility] Comment on above: Order Comment: Speci men Type: BLOOD SPECIMEN Performed By: #### 2 2, [facility], 1987-08 #### [facility] CLIA [id number] [address] Erythrocyte distribution width (RBC) [Ratio] 11.7 % Normal 11.5-15.0 [facility] Comment on above: Order Comment: Speci men Type: BLOOD SPECIMEN Performed By: #### 2 4320-05, [facility], 1987-08 #### [facility] CLIA [id number] [address] Hematocrit (Bld) [Volume fraction] 42.1 % Normal 39.0-51.0 [facility] Comment on above: Order Comment: Speci men Type: BLOOD SPECIMEN Performed By: #### 2 4320-05, [facility], 1987-08 #### [facility] CLIA [id number] [address] Hemoglobin (Bld) [Mass/Vol] 14.6 g/dL Normal 13.0-17.0 [facility] Comment on above: Order Comment: Speci men Type: BLOOD SPECIMEN Performed By: #### 2 4320-05, [facility], 1987-08 #### [facility] CLIA [id number] [address] IMMATURE GRAN % 0.4 % Normal [facility] Comment on above: Order Comment: Speci men Type: BLOOD SPECIMEN Performed By: #### 2 4320-05, [facility], 1987-08 #### [facility] CLIA [id number] [address] IMMATURE GRAN ABS <0.03 Normal <0.10 [facility] Comment on above: Order Comment: Speci men Type: BLOOD SPECIMEN Performed By: #### 2 4320-05, [facility], 1987-08 #### [facility] CLIA [id number] [address] Lymphocytes (Bld) [#/Vol] 0.53 10*3/uL Low 1.00-4.00 [facility] Comment on above: Order Comment: Speci men Type: BLOOD SPECIMEN Performed By: #### 2 4320-, [facility], 1987-08 #### [facility] CLIA [id number] [address] Lymphocytes/100 WBC (Bld) 19.3 % Normal [facility] Comment on above: Order Comment: Speci men Type: BLOOD SPECIMEN Performed By: #### 2 4320-05, [facility], 1987-08 #### [facility] CLIA [id number] [address] MCH (RBC) [Entitic mass] 30.0 pg Normal 26.0-34.0 [facility] Comment on above: Order Comment: Speci men Type: BLOOD SPECIMEN Performed By: #### 2 4320-05, [facility], 1987-08 #### [facility] CLIA [id number] [address] MCHC (RBC) [Mass/Vol] 34.7 g/dL Normal 30.5-36.0 [facility] Comment on above: Order Comment: Speci men Type: BLOOD SPECIMEN Performed By: #### 2 4320-05, [facility], 1987-08 #### [facility] CLIA [id number] [address] MCV (RBC) [Entitic vol] 86.4 fL Normal 80.0-100.0 [facility] Comment on above: Order Comment: Speci men Type: BLOOD SPECIMEN Performed By: #### 2 4320-, [facility], 1987-08 #### [facility] CLIA [id number] [address] Monocytes (Bld) [#/Vol] 0.36 10*3/uL Normal <0.87 [facility] Comment on above: Order Comment: Speci men Type: BLOOD SPECIMEN Performed By: #### 2 4320-, [facility], 1987-08 #### [facility] CLIA [id number] [address] [place] Monocytes/100 WBC (Bld) 13.1 % Normal [facility] Comment on above: Order Comment: Speci men Type: BLOOD SPECIMEN Performed By: #### 2 4320-05, [facility], 1987-08 #### [facility] CLIA [id number] [address] [place] Neutrophils (Bld) [#/Vol] 1.84 10*3/uL Normal 1.45-7.50 [facility] Comment on above: Order Comment: Speci men Type: BLOOD SPECIMEN Performed By: #### 2 4320-05, [facility], 1987-08 #### [facility] CLIA [id number] [address] [place] Neutrophils/100 WBC (Bld) 67.2 % Normal [facility] Comment on above: Order Comment: Speci men Type: BLOOD SPECIMEN Performed By: #### 2 4320-05, [facility], 1987-08 #### [facility] CLIA [id number] [address] [place] Nucleated RBC (Bld) [#/Vol] 10*3/uL Normal <0.01 [facility] Comment on above: Order Comment: Speci men Type: BLOOD SPECIMEN Performed By: #### 2 4320-05, [facility], 1987-08 #### [facility] CLIA [id number] [address] [place] Nucleated RBC/100 WBC (Bld) [Ratio] 0.0 /100 WBC Normal 0.0 [facility] Comment on above: Order Comment: Speci men Type: BLOOD SPECIMEN Performed By: #### 2 4320-05, [facility], 1987-08 #### [facility] CLIA [id number] [address] Platelet mean volume (Bld) [Entitic vol] 9.0 fL Normal 9.0-12.7 [facility] Comment on above: Order Comment: Speci men Type: BLOOD SPECIMEN Performed By: #### 2 4320-2, [facility], 1987-08 #### [facility] CLIA [id number] [address] Platelets (Bld) [#/Vol] 101 10*3/uL Low 150-400 [facility] Comment on above: Order Comment: Speci men Type: BLOOD SPECIMEN Performed By: #### 2 4320-2, [facility], 1987-08 #### [facility] CLIA [id number] [address] RBC (Bld) [#/Vol] 4.87 10*6/uL Normal 4.20-6.00 [facility] Comment on above: Order Comment: Speci men Type: BLOOD SPECIMEN Performed By: #### 2 4320-2, [facility], 1987-08 #### [facility] CLIA [id number] [address] WBC (Bld) [#/Vol] 2.74 10*3/uL Low 3.70-11.00 [facility] Comment on above: Order Comment: Speci men Type: BLOOD SPECIMEN Performed By: #### 2 4320-2, [facility], 1987-08 #### [facility] CLIA [id number] [address] Comprehensive metabolic 2000 panelon 02-16-2021 Albumin [Mass/Vol] 3.8 g/dL Low 3.9-4.9 [facility] Comment on above: Order Comment: Speci men Type: BLOOD SPECIMEN Performed By: #### 2 4323-8 #### [facility] CLIA [id number] [address] ALP [Catalytic activity/Vol] 90 U/L Normal 38-113 [facility] Comment on above: Order Comment: Speci men Type: BLOOD SPECIMEN Performed By: #### 2 4323-8 #### [facility] CLIA [id number] [address] ALT With P-5'-P [Catalytic activity/Vol] 57 U/L High 10-54 [facility] Comment on above: Order Comment: Speci men Type: BLOOD SPECIMEN Performed By: #### 2 4323-8 #### [facility] CLIA [id number] [address] Anion gap [Moles/Vol] 12 mmol/L Normal 9-18 [facility] Comment on above: Order Comment: Speci men Type: BLOOD SPECIMEN Performed By: #### 2 4323-8 #### [facility] CLIA [id number] [address] AST With P-5'-P [Catalytic activity/Vol] 60 U/L High 14-40 [facility] Comment on above: Order Comment: Speci men Type: BLOOD SPECIMEN Performed By: #### 2 4323-8 #### [facility] CLIA [id number] [address] Bilirubin [Mass/Vol] 1.4 mg/dL High 0.2-1.3 [facility] Comment on above: Order Comment: Speci men Type: BLOOD SPECIMEN Performed By: #### 2 4323-8 #### [facility] CLIA [id number] [address] Calcium [Mass/Vol] 8.2 mg/dL Low 8.5-10.2 [facility] Comment on above: Order Comment: Speci men Type: BLOOD SPECIMEN Performed By: #### 2 4323-8 #### [facility] CLIA [id number] [address] Chloride [Moles/Vol] 96 mmol/L Low 97-105 [facility] Comment on above: Order Comment: Speci men Type: BLOOD SPECIMEN Performed By: #### 2 4323-8 #### [facility] CLIA [id number] [address] [place] CO2 [Moles/Vol] 24 mmol/L Normal 22-30 [facility] Comment on above: Order Comment: Speci men Type: BLOOD SPECIMEN Performed By: #### 2 4323-8 #### [facility] CLIA [id number] [address] [place] Creatinine [Mass/Vol] 1.00 mg/dL Normal 0.73-1.22 [facility] Comment on above: Order Comment: Speci men Type: BLOOD SPECIMEN Performed By: #### 2 4323-8 #### [facility] CLIA [id number] [address] GFR/1.73 sq M.predicted MDRD (S/P/Bld) [Vol rate/Area] mL/min/{1.73_m2} Normal [facility] Comment on above: Order [...] GFR. Performed By: #### 2 4323-8 #### [facility] CLIA [id number] [address] [place] Glucose [Mass/Vol] 112 mg/dL High 74-99 [facility] Comment on above: Order Comment: Speci men Type: BLOOD SPECIMEN Result Comment: The [place] [employer] (ADA) provides guidance for cutoff [...] Standards of Medical Care in Diabetes 2016, [place] [employer]. Diabetes Care. 2016.39(Suppl 1). Performed By: #### 2 4323-8 #### [facility] CLIA [id number] [address] Potassium [Moles/Vol] 4.0 mmol/L Normal 3.7-5.1 [facility] Comment on above: Order Comment: Speci men Type: BLOOD SPECIMEN Performed By: #### 2 4323-8 #### [facility] CLIA [id number] [address] STATES [facility] Protein [Mass/Vol] 6.3 g/dL Normal 6.3-8.0 [facility] Comment on above: Order Comment: Speci men Type: BLOOD SPECIMEN Performed By: #### 2 4323-8 #### [facility] CLIA [id number] [address] STATES [facility] Sodium [Moles/Vol] 132 mmol/L Low 136-144 [facility] Comment on above: Order Comment: Speci men Type: BLOOD SPECIMEN Performed By: #### 2 4323-8 #### [facility] CLIA [id number] [address] Urea nitrogen [Mass/Vol] 11 mg/dL Normal 9-24 [facility] Comment on above: Order Comment: Speci men Type: BLOOD SPECIMEN Performed By: #### 2 4323-8 #### [facility] CLIA [id number] [address] HAV IgM Ser Qlon 02-16-2021 HAV IgM Ql (S) Negative Normal Negative [facility] Comment on above: Order Comment: Speci men Type: BLOOD SPECIMEN Performed By: #### 2 432-2, [facility], 1987-08 #### [facility] CLIA [id number] [address] HBV core IgM Ser Qlon 2020 HBV core IgM Ql (S) Negative Normal Negative [facility] Comment on above: Order Comment: Speci men Type: BLOOD SPECIMEN Performed By: #### 2 4320-2, [facility], 1987-08 #### [facility] CLIA [id number] [address] HBV surface Ab IA Ql (S)on 04-18-2020 HBV surface Ag Ql (S) Negative Normal Negative [facility] Comment on above: Order Comment: Speci men Type: BLOOD SPECIMEN Performed By: #### 2 4320-2, [facility], 1987-08 #### [facility] CLIA [id number] [address] HCV Ab Ser Qlon 02-16-2021 HCV Ab Ql (S) Negative Normal Negative [facility] Comment on above: Order Comment: Speci men Type: BLOOD SPECIMEN Performed By: #### 2 4320-2, [facility], 1987-08 #### [facility] CLIA [id number] [address] NURSING PROGon 02-16-2021 NURSING PROG HNO ID: [id number] Author: Alejandrina Morales RN Service: ? Author Type: Registered Nurse Type: Nursing Progress Note Filed: 02/16/2021 6:38 PM Note Text: Pts O2 sat was 96% on RA.... stood pt up for aprox a minute and O2 sat was 99% ... pt became unstable and sat back down in the bed. Normal [facility] THERAPY NTon 02-16-2021 THERAPY NT HNO ID: [id number] Author: DANA Dyer/Patrick Service: Occupational Therapy Author Type: Occupational Therapist Type: Therapy (PT/OT/Speech/Resp) Filed: 02/16/2021 3:52 PM Note Text: Occupational Therapy Evaluation SERVICE DATE: 02/16/2021 SERVICE TIME: 1525 to 1544 ROOM: [place] [id number] Recommended Discharge Disposition: Subacute/SNF Recommended Discharge Disposition [...] transfers wit (more content not included)... Normal [facility] THERAPY NT HNO ID: [id number] Author: Elsa Agee PT Service: Physical Therapy Author Type: Physical Therapist Type: Therapy (PT/OT/Speech/Resp) Filed: 02/16/2021 3:15 PM Note Text: Physical Therapy Evaluation SERVICE DATE: 02/16/2021 SERVICE TIME: 1426 to 1452 ROOM: [id number] Recommended Discharge Disposition: Subacute/SNF Recommended Discharge Disposition [...] while t (more content not included)... Normal [facility] ALLIED HEALTHon 02-15-2021 ALLIED HEALTH HNO ID: [id number] Author: JASMIN Dunne) Service: ? Author Type: Sports Instructor Type: Allied Health Filed: 02/14/2021 11:50 PM [...] PERIPHERAL IV DATA: Not applicable SIGNED BY: JASMIN Dunne) February 14, 2021 11:50 PM Normal [facility] Basic metabolic 2000 panelon 02-15-2021 Anion gap [Moles/Vol] 13 mmol/L Normal 9-18 [facility] Comment on above: Order Comment: Speci men Type: BLOOD SPECIMEN Performed By: #### 2 4320-2, [facility], 1987-08 #### [facility] CLIA [id number] [address] [place] Calcium [Mass/Vol] 8.5 mg/dL Normal 8.5-10.2 [facility] Comment on above: Order Comment: Speci men Type: BLOOD SPECIMEN Performed By: #### 2 4320-2, [facility], 1987-08 #### [facility] CLIA [id number] [address] [place] Chloride [Moles/Vol] 93 mmol/L Low 97-105 [facility] Comment on above: Order Comment: Speci men Type: BLOOD SPECIMEN Performed By: #### 2 4320-2, [facility], 1987-08 #### [facility] CLIA [id number] [address] [place] CO2 [Moles/Vol] 23 mmol/L Normal 22-30 [facility] Comment on above: Order Comment: Speci men Type: BLOOD SPECIMEN Performed By: #### 2 2, [facility], 1987-08 #### [facility] CLIA [id number] [address] [place] Creatinine [Mass/Vol] 1.04 mg/dL Normal 0.73-1.22 [facility] Comment on above: Order Comment: Speci men Type: BLOOD SPECIMEN Performed By: #### 2 4320-2, [facility], 1987-08 #### [facility] CLIA [id number] [address] [place] GFR/1.73 sq M.predicted MDRD (S/P/Bld) [Vol rate/Area] mL/min/{1.73_m2} Normal [facility] Comment on above: Order [...] reflect actual GFR. Performed By: #### 2 1-, [facility], 1987-08 #### [facility] CLIA [id number] 1 [place] [address] [place] Glucose [Mass/Vol] 157 mg/dL High 74-99 [facility] Comment on above: Order Comment: Speci men Type: BLOOD SPECIMEN Result Comment: The [place] Diabetes [employer] (ADA) provides guidance for cutoff [...] Standards of Medical Care in Diabetes 2016, [place] [employer]. Diabetes Care. 2016.39(Suppl 1). Performed By: #### 2 4320-2, [facility], 1987-08 #### [facility] CLIA [id number] 1 [place] [address] [place] Potassium [Moles/Vol] 4.0 mmol/L Normal 3.7-5.1 [facility] Comment on above: Order [facility] BLOOD [facility]CIMEN Performed By: #### 2 4320-2, [facility], 1987-08 #### [facility] CLIA [id number] 1 [place] [address] [place] Sodium [Moles/Vol] 129 mmol/L Low 136-144 [facility] Comment on above: Order Comment: Speci men Type: BLOOD SPECIMEN Performed By: #### 2 4320-2, [facility], 1987-08 #### [facility] CLIA [id number] [address] Urea nitrogen [Mass/Vol] 9 mg/dL Normal 9-24 [facility] Comment on above: Order Comment: Speci men Type: BLOOD SPECIMEN Performed By: #### 2 4320-, [facility], 1987-08 #### [facility] CLIA [id number] [address] CBC W Auto Differential pane l (Bld)on 02-15-2021 Basophils (Bld) [#/Vol] 10*3/uL Normal <0.11 [facility] Comment on above: Order Comment: Speci men Type: BLOOD SPECIMEN Performed By: #### 2 4320-05, [facility], 1987-08 #### [facility] CLIA [id number] [address] Basophils/100 WBC (Bld) 0.0 % Normal [facility] Comment on above: Order Comment: Speci men Type: BLOOD SPECIMEN Performed By: #### 2 4320-05, [facility], 1987-08 #### [facility] CLIA [id number] [address] Differential cell count method Nom (Bld) Auto Normal [facility] Comment on above: Order Comment: Speci men Type: BLOOD SPECIMEN Performed By: #### 2 4320-2, [facility], 1987-08 #### [facility] CLIA [id number] [address] [place] Eosinophils (Bld) [#/Vol] 10*3/uL Normal <0.46 [facility] Comment on above: Order Comment: Speci men Type: BLOOD SPECIMEN Performed By: #### 2 4320-, [facility], 1987-08 #### [facility] CLIA [id number] [address] Eosinophils/100 WBC (Bld) 0.0 % Normal [facility] Comment on above: Order Comment: Speci men Type: BLOOD SPECIMEN Performed By: #### 2 4320-05, [facility], 1987-08 #### [facility] CLIA [id number] [address] Erythrocyte distribution width (RBC) [Ratio] 11.9 % Normal 11.5-15.0 [facility] Comment on above: Order Comment: Speci men Type: BLOOD SPECIMEN Performed By: #### 2 4320-05, [facility], 1987-08 #### [facility] CLIA [id number] [address] Hematocrit (Bld) [Volume fraction] 43.5 % Normal 39.0-51.0 [facility] Comment on above: Order Comment: Speci men Type: BLOOD SPECIMEN Performed By: #### 2 4320-05, [facility], 1987-08 #### [facility] CLIA [id number] [address] Hemoglobin (Bld) [Mass/Vol] 15.0 g/dL Normal 13.0-17.0 [facility] Comment on above: Order Comment: Speci men Type: BLOOD SPECIMEN Performed By: #### 2 4320-05, [facility], 1987-08 #### [facility] CLIA [id number] [address] IMMATURE GRAN % 0.4 % Normal [facility] Comment on above: Order Comment: Speci men Type: BLOOD SPECIMEN Performed By: #### 2 4320-05, [facility], 1987-08 #### [facility] CLIA [id number] [address] IMMATURE GRAN ABS <0.03 Normal <0.10 [facility] Comment on above: Order Comment: Speci men Type: BLOOD SPECIMEN Performed By: #### 2 4320-05, [facility], 1987-08 #### [facility] CLIA [id number] [address] Lymphocytes (Bld) [#/Vol] 0.32 10*3/uL Low 1.00-4.00 [facility] Comment on above: Order Comment: Speci men Type: BLOOD SPECIMEN Performed By: #### 2 4320-05, [facility], 1987-08 #### [facility] CLIA [id number] [address] Lymphocytes/100 WBC (Bld) 11.2 % Normal [facility] Comment on above: Order Comment: Speci men Type: BLOOD SPECIMEN Performed By: #### 2 4320-05, [facility], 1987-08 #### [facility] CLIA [id number] [address] MCH (RBC) [Entitic mass] 30.1 pg Normal 26.0-34.0 [facility] Comment on above: Order Comment: Speci men Type: BLOOD SPECIMEN Performed By: #### 2 4320-05, [facility], 1987-08 #### [facility] CLIA [id number] [address] MCHC (RBC) [Mass/Vol] 34.5 g/dL Normal 30.5-36.0 [facility] Comment on above: Order Comment: Speci men Type: BLOOD SPECIMEN Performed By: #### 2 4320-05, [facility], 1987-08 #### [facility] CLIA [id number] [address] MCV (RBC) [Entitic vol] 87.3 fL Normal 80.0-100.0 [facility] Comment on above: Order Comment: Speci men Type: BLOOD SPECIMEN Performed By: #### 2 4320-05, [facility], 1987-08 #### [facility] CLIA [id number] [address] Monocytes (Bld) [#/Vol] 0.12 10*3/uL Normal <0.87 [facility] Comment on above: Order Comment: Speci men Type: BLOOD SPECIMEN Performed By: #### 2 4320-05, [facility], 1987-08 #### [facility] CLIA [id number] [address] Monocytes/100 WBC (Bld) 4.2 % Normal [facility] Comment on above: Order Comment: Speci men Type: BLOOD SPECIMEN Performed By: #### 2 4320-05, [facility], 1987-08 #### [facility] CLIA [id number] [address] Neutrophils (Bld) [#/Vol] 2.40 10*3/uL Normal 1.45-7.50 [facility] Comment on above: Order Comment: Speci men Type: BLOOD SPECIMEN Performed By: #### 2 4320-05, [facility], 1987-08 #### [facility] CLIA [id number] [address] Neutrophils/100 WBC (Bld) 84.2 % Normal [facility] Comment on above: Order Comment: Speci men Type: BLOOD SPECIMEN Performed By: #### 2 4320-05, [facility], 1987-08 #### [facility] CLIA [id number] [address] Nucleated RBC (Bld) [#/Vol] 10*3/uL Normal <0.01 [facility] Comment on above: Order Comment: Speci men Type: BLOOD SPECIMEN Performed By: #### 2 4320-05, [facility], 1987-08 #### [facility] CLIA [id number] [address] Nucleated RBC/100 WBC (Bld) [Ratio] 0.0 /100 WBC Normal 0.0 [facility] Comment on above: Order Comment: Speci men Type: BLOOD SPECIMEN Performed By: #### 2 4320-, [facility], 1987-08 #### [facility] CLIA [id number] [address] [facility] Platelet mean volume (Bld) [Entitic vol] 9.2 fL Normal 9.0-12.7 [facility] Comment on above: Order Comment: Speci men Type: BLOOD SPECIMEN Performed By: #### 2 4320-, [facility], 1987-08 #### [facility] CLIA [id number] [address] Platelets (Bld) [#/Vol] 97 10*3/uL Low 150-400 [facility] Comment on above: Order Comment: Speci men Type: BLOOD SPECIMEN Performed By: #### 2 4320-2, [facility], 1987-08 #### [facility] CLIA [id number] [address] RBC (Bld) [#/Vol] 4.98 10*6/uL Normal 4.20-6.00 [facility] Comment on above: Order Comment: Speci men Type: BLOOD SPECIMEN Performed By: #### 2 4320-05, [facility], 1987-08 #### [facility] CLIA [id number] [address] WBC (Bld) [#/Vol] 2.85 10*3/uL Low 3.70-11.00 [facility] Comment on above: Order Comment: Speci men Type: BLOOD SPECIMEN Performed By: #### 2 4320-05, [facility], 1987-08 #### [facility] CLIA [id number] [address] Basophils (Bld) [#/Vol] 10*3/uL Normal <0.11 [facility] Comment on above: Order Comment: Speci men Type: BLOOD SPECIMEN Performed By: #### 2 4320-2, [facility], 1987-08 #### [facility] CLIA [id number] [address] Basophils/100 WBC (Bld) 0.3 % Normal [facility] Comment on above: Order Comment: Speci men Type: BLOOD SPECIMEN Performed By: #### 2 4320-05, [facility], 1987-08 #### [facility] CLIA [id number] [address] Differential cell count method Nom (Bld) Auto Normal [facility] Comment on above: Order Comment: Speci men Type: BLOOD SPECIMEN Performed By: #### 2 4320-05, [facility], 1987-08 #### [facility] [facility] CLIA [id number] [address] Eosinophils (Bld) [#/Vol] 10*3/uL Normal <0.46 [facility] Comment on above: Order Comment: Speci men Type: BLOOD SPECIMEN Performed By: #### 2 4320-05, [facility], 1987-08 #### [employer] [facility] CLIA [id number] [address] Eosinophils/100 WBC (Bld) 0.0 % Normal [facility] Comment on above: Order Comment: Speci men Type: BLOOD SPECIMEN Performed By: #### 2 4320-05, [facility], 1987-08 #### [facility] CLIA [id number] [address] Erythrocyte distribution width (RBC) [Ratio] 12.1 % Normal 11.5-15.0 [facility] Comment on above: Order Comment: Speci men Type: BLOOD SPECIMEN Performed By: #### 2 4320-05, [facility], 1987-08 #### [employer] [facility] CLIA [id number] [address] Hematocrit (Bld) [Volume fraction] 42.0 % Normal 39.0-51.0 [facility] Comment on above: Order Comment: Speci men Type: BLOOD SPECIMEN Performed By: #### 2 4320-05, [facility], 1987-08 #### [facility] CLIA [id number] [address] Hemoglobin (Bld) [Mass/Vol] 14.3 g/dL Normal 13.0-17.0 [facility] Comment on above: Order Comment: Speci men Type: BLOOD SPECIMEN Performed By: #### 2 4320-05, [facility], 1987-08 #### [facility] CLIA [id number] [address] IMMATURE GRAN % 0.7 % Normal [facility] Comment on above: Order Comment: Speci men Type: BLOOD SPECIMEN Performed By: #### 2 4320-05, [facility], 1987-08 #### [facility] CLIA [id number] [address] IMMATURE GRAN ABS <0.03 Normal <0.10 [facility] Comment on above: Order Comment: Speci men Type: BLOOD SPECIMEN Performed By: #### 2 4320-05, [facility], 1987-08 #### [facility] CLIA [id number] [address] Lymphocytes (Bld) [#/Vol] 0.18 10*3/uL Low 1.00-4.00 [facility] Comment on above: Order Comment: Speci men Type: BLOOD SPECIMEN Performed By: #### 2 4320-05, [facility], 1987-08 #### [facility] CLIA [id number] [address] Lymphocytes/100 WBC (Bld) 5.9 % Normal [facility] Comment on above: Order Comment: Speci men Type: BLOOD SPECIMEN Performed By: #### 2 4320-05, [facility], 1987-08 #### [facility] CLIA [id number] [address] MCH (RBC) [Entitic mass] 29.9 pg Normal 26.0-34.0 [facility] Center Comment on above: Order Comment: Speci men Type: BLOOD SPECIMEN Performed By: #### 2 4320-05, [facility], 1987-08 #### [facility] CLIA [id number] [address] MCHC (RBC) [Mass/Vol] 34.0 g/dL Normal 30.5-36.0 [facility] Comment on above: Order Comment: Speci men Type: BLOOD SPECIMEN Performed By: #### 2 4320-05, [facility], 1987-08 #### [facility] CLIA [id number] [address] MCV (RBC) [Entitic vol] 87.7 fL Normal 80.0-100.0 [facility] Comment on above: Order Comment: Speci men Type: BLOOD SPECIMEN Performed By: #### 2 4320-, [facility], 1987-08 #### [facility] CLIA [id number] [address] Monocytes (Bld) [#/Vol] 0.25 10*3/uL Normal <0.87 [facility] Comment on above: Order Comment: Speci men Type: BLOOD SPECIMEN Performed By: #### 2 4320-05, [facility], 1987-08 #### [facility] CLIA [id number] [address] Monocytes/100 WBC (Bld) 8.2 % Normal [facility] Comment on above: Order Comment: Speci men Type: BLOOD SPECIMEN Performed By: #### 2 4320-05, [facility], 1987-08 #### [facility] CLIA [id number] [address] Neutrophils (Bld) [#/Vol] 2.59 10*3/uL Normal 1.45-7.50 [facility] Comment on above: Order Comment: Speci men Type: BLOOD SPECIMEN Performed By: #### 2 4320-05, [facility], 1987-08 #### [facility] CLIA [id number] [address] Neutrophils/100 WBC (Bld) 84.9 % Normal [facility] Comment on above: Order Comment: Speci men Type: BLOOD SPECIMEN Performed By: #### 2 4320-05, [facility], 1987-08 #### [facility] CLIA [id number] [address] OF [place] Nucleated RBC (Bld) [#/Vol] 10*3/uL Normal <0.01 [facility] Comment on above: Order Comment: Speci men Type: BLOOD SPECIMEN Performed By: #### 2 4320-05, [facility], 1987-08 #### [facility] CLIA [id number] [address] Nucleated RBC/100 WBC (Bld) [Ratio] 0.0 /100 WBC Normal 0.0 [facility] Comment on above: Order Comment: Speci men Type: BLOOD SPECIMEN Performed By: #### 2 4320-05, [facility], 1987-08 #### [facility] CLIA [id number] [address] Platelet mean volume (Bld) [Entitic vol] 9.3 fL Normal 9.0-12.7 [facility] Comment on above: Order Comment: Speci men Type: BLOOD SPECIMEN Performed By: #### 2 4320-05, [facility], 1987-08 #### [facility] CLIA [id number] [address] Platelets (Bld) [#/Vol] 84 10*3/uL Low 150-400 [facility] Comment on above: Order Comment: Speci men Type: BLOOD SPECIMEN Result Comment: Plat elet count confirmed by manual review of peripheral blood smear Performed By: #### 2 4320-05, [facility], 1987-08 #### [facility] CLIA [id number] [address] RBC (Bld) [#/Vol] 4.79 10*6/uL Normal 4.20-6.00 [facility] Comment on above: Order Comment: Speci men Type: BLOOD SPECIMEN Performed By: #### 2 4320-05, [facility], 1987-08 #### [facility] CLIA [id number] [address] WBC (Bld) [#/Vol] 3.05 10*3/uL Low 3.70-11.00 [facility] Comment on above: Order Comment: Speci men Type: BLOOD SPECIMEN Performed By: #### 2 4320-, [facility], 1987-08 #### [facility] CLIA [id number] [address] [place] CRP SerPl-mCncon 02-15-2021 CRP [Mass/Vol] 0.5 mg/dL Normal <0.9 [facility] Comment on above: Order Comment: Speci men Type: BLOOD SPECIMEN Performed By: #### 2 4320-2, [facility], 1987-08 #### [facility] CLIA [id number] [address] OF [facility] Comprehensive metabolic 2000 panelon 02-15-2021 Albumin [Mass/Vol] 3.9 g/dL Normal 3.9-4.9 [facility] Comment on above: Order Comment: Speci men Type: BLOOD SPECIMEN Performed By: #### 2 4320-2, [facility], 1987-08 #### [facility] CLIA [id number] [address] ALP [Catalytic activity/Vol] 95 U/L Normal 38-113 [facility] Comment on above: Order Comment: Speci men Type: BLOOD SPECIMEN Performed By: #### 2 4320-2, [facility], 1987-08 #### [facility] CLIA [id number] [address] ALT With P-5'-P [Catalytic activity/Vol] 61 U/L High 10-54 [facility] Comment on above: Order Comment: Speci men Type: BLOOD SPECIMEN Performed By: #### 2 4320-2, [facility], 1987-08 #### [facility] CLIA [id number] [address] Anion gap [Moles/Vol] 13 mmol/L Normal 9-18 [facility] Comment on above: Order Comment: Speci men Type: BLOOD SPECIMEN Performed By: #### 2 4320-2, [facility], 1987-08 #### [facility] CLIA [id number] [address] [place] AST With P-5'-P [Catalytic activity/Vol] 70 U/L High 14-40 [facility] Comment on above: Order Comment: Speci men Type: BLOOD SPECIMEN Performed By: #### 2 4320-2, [facility], 1987-08 #### [facility] CLIA [id number] [address] STATES OF [facility] Bilirubin [Mass/Vol] 2.3 mg/dL High 0.2-1.3 [facility] Comment on above: Order Comment: Speci men Type: BLOOD SPECIMEN Performed By: #### 2 4320-2, [facility], 1987-08 #### [facility] CLIA [id number] [address] OF [facility] Calcium [Mass/Vol] 8.4 mg/dL Low 8.5-10.2 [facility] Comment on above: Order Comment: Speci men Type: BLOOD SPECIMEN Performed By: #### 2 4320-2, [facility], 1987-08 #### [facility] CLIA [id number] [address] Chloride [Moles/Vol] 97 mmol/L Normal 97-105 [facility] Comment on above: Order Comment: Speci men Type: BLOOD SPECIMEN Performed By: #### 2 4320-2, [facility], 1987-08 #### [facility] CLIA [id number] [address] CO2 [Moles/Vol] 21 mmol/L Low 22-30 [facility] Comment on above: Order Comment: Speci men Type: BLOOD SPECIMEN Performed By: #### 2 4320-2, [facility], 1987-08 #### [facility] CLIA [id number] [address] [place] Creatinine [Mass/Vol] 0.98 mg/dL Normal 0.73-1.22 [facility] Comment on above: Order Comment: Speci men Type: BLOOD SPECIMEN Performed By: #### 2 4320-2, [facility], 1987-08 #### [facility] CLIA [id number] [address] [place] GFR/1.73 sq M.predicted MDRD (S/P/Bld) [Vol rate/Area] mL/min/{1.73_m2} Normal [facility] Comment on above: Order [...] actual GFR. Performed By: #### 2 4321-2, [facility], 1987-08 #### [facility] CLIA [id number] 1 [place] [address] [place] Glucose [Mass/Vol] 128 mg/dL High 74-99 [facility] Comment on above: Order Comment: Speci men Type: BLOOD SPECIMEN Result Comment: The [place] [employer] (ADA) provides guidance for cutoff [...] Standards of Medical Care in Diabetes 2016, [place] [employer]. Diabetes Care. 2016.39(Suppl 1). Performed By: #### 2 4321-2, [facility], 1987-08 #### [facility] CLIA [id number] 1 [place] [address] [place] Potassium [Moles/Vol] 3.9 mmol/L Normal 3.7-5.1 [facility] Comment on above: Order Comment: Speci men Type: BLOOD SPECIMEN Performed By: #### 2 4320-2, [facility], 1987-08 #### [facility] CLIA [id number] [address] Protein [Mass/Vol] 6.2 g/dL Low 6.3-8.0 [facility] Comment on above: Order Comment: Speci men Type: BLOOD SPECIMEN Performed By: #### 2 4320-2, [facility], 1987-08 #### [facility] CLIA [id number] [address] Sodium [Moles/Vol] 131 mmol/L Low 136-144 [facility] Comment on above: Order Comment: Speci men Type: BLOOD SPECIMEN Performed By: #### 2 4320-2, [facility], 1987-08 #### [facility] CLIA [id number] [address] Urea nitrogen [Mass/Vol] 9 mg/dL Normal 9-24 [facility] Comment on above: Order Comment: Speci men Type: BLOOD SPECIMEN Performed By: #### 2 2, [facility], 1987-08 #### [facility] CLIA [id number] [address] D dimer FEU PPP-mCncon 02-15 Fibrin D-dimer FEU (PPP) [Mass/Vol] 590 ng/mL FEU High <500 [facility] Comment on above: Order Comment: Speci men Type: BLOOD SPECIMEN Performed By: #### 4 8065-7 #### [facility] CLIA [id number] [address] ED NOTEon 02-15-2021 ED NOTE HNO ID: [id number] Author: Lalitha Santos RN Service: ? Author Type: Registered Nurse Type: ED Notes Filed: 02/15/2021 7:33 AM Note Text: US tech notified that pt is ready for ordered US. Normal [facility] ED NOTE HNO ID: [id number] Author: Lalitha Santos RN Service: ? Author Type: Registered Nurse Type: ED Notes Filed: 02/15/2021 7:07 AM Note Text: Report received from [facility] [place]. Care assumed at this time. Pt remains attached to buccaro and continuous pulse ox Normal [facility] ED NOTE HNO ID: [id number] Author: Joy Segal RN Service: Emergency Medicine Author Type: Registered Nurse Type: ED Notes Filed: 02/15/2021 6:06 AM Note Text: Complete linen change performed Normal [facility] ED NOTE HNO ID: [id number] Author: Angely Hu RN Service: ? Author Type: Registered Nurse Type: ED Notes Filed: 02/14/2021 10:40 PM Note Text: Bed: 19-ED Expected date: 02/14/21 Expected time: 10:28 PM Means of arrival: Serene GUIDO Comments: serene [facility] ED PROV NOTEon 02-15-2021 ED PROV NOTE HNO ID: [id number] Author: Lucas Mcgee DO Service: Emergency Medicine [...] Plan: The patient is admitted to [facility] at the time of signout ED Course as of 02/15/21710 Others' Documentation SunFeb 15, 2021 0024 [place]%: 8.2 [HT] ED Course User Index [HT] Sarah Dumont MD Clinical Impressions as of 02/15/21 0711 COVID-19 Nausea Lucas Mcgee DO February 15, 2021 7:11 AM Lcuas Mcgee DO Resident 02/15/21 0713 Loretta Daniel MD 02/15/21 0856 Normal [facility] ED PROV NOTE HNO ID: [id number] Author: Danay Gallardo MD Service: Emergency Medicine [...] disposition details Danay Gallardo MD 02/15/21 0030 Normal [facility] ED PROV NOTE HNO ID: [id number] Author: Sarah Dumont MD Service: Emergency Medicine [...] as o (more content not included)... Normal [facility] Fibrin D-dimer FEU (PPP) [Ma ss/Vol]on 02-15-2021 D DIMER AGE-RELATED CUTOFF 710 ng/mL FEU Normal [facility] Comment on above: Order Comment: Speci men Type: BLOOD SPECIMEN Performed By: #### 4 8065-7 #### [facility] CLIA [id number] [address] [place] HEPATIC FUNCTION PNLon 02-15 Albumin [Mass/Vol] 4.0 g/dL Normal 3.9-4.9 [facility] Comment on above: Order Comment: Speci men Type: BLOOD SPECIMEN Performed By: #### 2 4321-2, [facility], 1988- #### [facility] CLIA [id number] 1 [place] [address] [place] ALP [Catalytic activity/Vol] 94 U/L Normal 38-113 [facility] Comment on above: Order Comment: Speci men Type: BLOOD SPECIMEN Performed By: #### 2 4320-, [facility], 1987-08 #### [facility] CLIA [id number] [address] ALT With P-5'-P [Catalytic activity/Vol] 65 U/L High 10-54 [facility] Comment on above: Order Comment: Speci men Type: BLOOD SPECIMEN Performed By: #### 2 4320-2, [facility], 1987-08 #### [facility] CLIA [id number] [address] AST With P-5'-P [Catalytic activity/Vol] 75 U/L High 14-40 [facility] Comment on above: Order Comment: Speci men Type: BLOOD SPECIMEN Performed By: #### 2 2, [facility], 1987-08 #### [facility] CLIA [id number] [address] Bilirubin [Mass/Vol] 1.9 mg/dL High 0.2-1.3 [facility] Comment on above: Order Comment: Speci men Type: BLOOD SPECIMEN Performed By: #### 2 4320-05, [facility], 1987-08 #### [facility] CLIA [id number] [address] Bilirubin.conjugated [Mass/Vol] 0.3 mg/dL High <0.2 [facility] Comment on above: Order Comment: Speci men Type: BLOOD SPECIMEN Performed By: #### 2 2, [facility], 1987-08 #### [facility] CLIA [id number] [address] Protein [Mass/Vol] 6.8 g/dL Normal 6.3-8.0 [facility] Comment on above: Order Comment: Speci men Type: BLOOD SPECIMEN Performed By: #### 2 4320-, [facility], 1987-08 #### [facility] CLIA [id number] [address] HIGH SENSITIVITY TROPONIN To n 02-15-2021 HIGH SENSITIVITY CARLEEN 24 ng/L High <12 [facility] Comment on above: Order Comment: Speci [...] 30 day MACE. Performed By: #### 2 4321-2, [facility], 1987-08 #### [facility] CLIA [id number] [address] HIGH SENSITIVITY CARLEEN 25 ng/L High <12 [facility] Comment on above: Order Comment: Speci [...] 30 day MACE. Performed By: #### 2 4321-2, [facility], 1987-08 #### [facility] CLIA [id number] [address] HISTORY PHYSICALon HISTORY PHYSICAL HNO ID: [id number] Author: Dana Westfall DO Service: Hospital Medicine Author Type: Physician Type: HANDP Filed: 02/15/2021 2:53 PM Note Text: DEPARTMENT OF HOSPITAL MEDICINE HISTORY AND PHYSICAL EXAM SERVICE DATE: 02/15/2021 SERVICE TIME: 2:25 PM Primary Care Physician: Danie Sawyer MD NIGHT AND WEEKEND COVERAGE: [place] COVERAGE: From 7am - 7pm, please call [phone] After 7pm, please call cross cover pager #[phone] Subjective CHIEF COMPLAINT: Nausea and vomiting HPI: [...] imaging results. Assessment/Plan Acute hypoxic respiratory failure 2/ COVID-19 PNA Sepsis -lactate 2.2 --> normal [...] 02/15/21 14 (more content not included)... Normal [facility] Lactate (Bld) [Moles/Vol]on 02-15-2021 Lactate [Moles/Vol] 2.2 mmol/L Normal 0.5-2.2 [facility] Comment on above: Order Comment: Speci men Type: BLOOD SPECIMEN Performed By: #### 3 9681-4 #### [facility] CLIA [id number] [address] PROCALCITONIN (LAB)on 2020 Procalcitonin [Mass/Vol] 0.11 ng/mL High <0.09 [facility] Comment on above: Order Comment: Speci men Type: BLOOD SPECIMEN Result Comment: For a guided interpretation of test results, please visit the [facility] in Procalcitonin Calculator, [email or web address]. Performed By: #### P ROCAL #### [facility] CLIA [id number] [address] PT panel Coag (PPP)on 2020 INR Coag (PPP) [Relative time] 1.0 {INR} Normal 0.9-1.3 [facility] Comment on above: Order Comment: Speci men Type: BLOOD SPECIMEN Result Comment: Luciana min K Antagonist (VKA) Therapeutic Range: INR 2 to 3 (Target INR of 2.5) Note: For patients treated with VKA drugs, such as warfarin, the [place] [employer] 2012 Guideline recommends [...] 2017, 70: 252-289 Performed By: #### 2 4321-2, [facility], 1987- #### [facility] CLIA [id number] [address] STATES OF [facility] PT Coag (PPP) [Time] 11.4 s Normal 9.7-13.0 [facility] Comment on above: Order Comment: Speci men Type: BLOOD SPECIMEN Performed By: #### 2 4320-, [facility], 1987-08 #### [facility] CLIA [id number] 1 [place] [address] [place] US ABD RIGHT UPPER QUADRANTo n 02-15-2021 US ABD RIGHT UPPER QUADRANT * * *Final Report* * * DATE OF EXAM: Feb 15 2021 12:39PM AKU 1032 - US ABD RIGHT UPPER QUADRANT [...] ductal dilation. 2. Suggestion of hepatic steatosis. Professor Of Education: MADDIE Transcribe Date/Time: Feb 15 2021 1:04P Dictated by : TAMIKO VACA MD This examination was interpreted and the report reviewed and electronically signed by: TAMIKO VACA MD on Feb 15 2021 1:07PM EST [id number] Normal [facility] Urinalysis complete panel (U )on 02-15-2021 Bacteria LM.HPF (Urine sed) [#/Area] None Seen Normal None Seen [facility] Comment on above: Order Comment: Speci men Type: BLOOD SPECIMEN Performed By: #### 2 4320-05, [facility], 1987-08 #### [facility] CLIA [id number] [address] [place] Bilirubin Ql (U) Negative Normal Negative [facility] Comment on above: Order Comment: Speci men Type: BLOOD SPECIMEN Performed By: #### 2 4320-05, [facility], 1987-08 #### [facility] CLIA [id number] [address] Clarity (Unsp spec) Clear Normal Clear [facility] Comment on above: Order Comment: Speci men Type: BLOOD SPECIMEN Performed By: #### 2 4320-, [facility], 1987-08 #### [facility] CLIA [id number] [address] Color (U) Yellow Normal Yellow [facility] Comment on above: Order Comment: Speci men Type: BLOOD SPECIMEN Performed By: #### 2 4320-05, [facility], 1987-08 #### [facility] CLIA [id number] [address] Epithelial cells LM.HPF (Urine sed) [#/Area] 0.3 /[HPF] Normal [facility] Comment on above: Order Comment: Speci men Type: BLOOD SPECIMEN Performed By: #### 2 4320-05, [facility], 1987-08 #### [facility] CLIA [id number] [address] Glucose Test strip (U) [Mass/Vol] Negative Normal Negative [facility] Comment on above: Order Comment: Speci men Type: BLOOD SPECIMEN Performed By: #### 2 4320-05, [facility], 1987-08 #### [facility] CLIA [id number] [address] Hemoglobin Ql (U) Negative Normal Negative [facility] Comment on above: Order Comment: Speci men Type: BLOOD SPECIMEN Performed By: #### 2 4320-05, [facility], 1987-08 #### [facility] CLIA [id number] [address] Hyaline casts (Urine sed) [#/Area] 0 /[LPF] Normal 0 /LPF [facility] Comment on above: Order Comment: Speci men Type: BLOOD SPECIMEN Performed By: #### 2 4320-2, [facility], 1987-08 #### [facility] CLIA [id number] [address] Ketones Ql (U) 15 mg/dL Abnormal Negative [facility] Comment on above: Order Comment: Speci men Type: BLOOD SPECIMEN Performed By: #### 2 4320-2, [facility], 1987-08 #### [facility] CLIA [id number] [address] Leukocyte esterase Test strip Ql (U) Negative Normal Negative [facility] Comment on above: Order Comment: Speci men Type: BLOOD SPECIMEN Performed By: #### 2 4320-2, [facility], 1987-08 #### [facility] CLIA [id number] [address] Nitrite Ql (U) Negative Normal Negative [facility] Comment on above: Order Comment: Speci men Type: BLOOD SPECIMEN Performed By: #### 2 4320-, [facility], 1987-08 #### [facility] CLIA [id number] [address] pH (U) 5.5 [pH] Normal 5.0-8.0 [facility] Comment on above: Order Comment: Speci men Type: BLOOD SPECIMEN Performed By: #### 2 4320-05, [facility], 1987-08 #### [facility] CLIA [id number] [address] Protein (U) [Mass/Vol] Negative Normal Negative [facility] Comment on above: Order Comment: Speci men Type: BLOOD SPECIMEN Performed By: #### 2 4320-2, [facility], 1987-08 #### [facility] CLIA [id number] [address] RBC LM.HPF (Urine sed) [#/Area] 6-10 /HPF Abnormal 0-3 /HPF [facility] Comment on above: Order Comment: Speci men Type: BLOOD SPECIMEN Performed By: #### 2 4320-2, [facility], 1987-08 #### [facility] CLIA [id number] [address] Specific gravity (U) [Rel density] 1.023 Normal 1.005-1.03 0 [facility] Comment on above: Order Comment: Speci men Type: BLOOD SPECIMEN Performed By: #### 2 432-2, [facility], 1987-08 #### [facility] CLIA [id number] [address] Urobilinogen Ql (U) 0.2 EU/dL Normal 0.2-1.0 EU/dL [facility] Comment on above: Order Comment: Speci men Type: BLOOD SPECIMEN Performed By: #### 2 432-2, [facility], 1987-08 #### [facility] CLIA [id number] [address] WBC LM.HPF (Urine sed) [#/Area] 0-5 /HPF Normal 0-5 /HPF [facility] Comment on above: Order Comment: Speci men Type: BLOOD SPECIMEN Performed By: #### 2 4320-05, [facility], 1987-08 #### [facility] CLIA [id number] [address] XR CHEST 2V FRONTAL/LATon XR CHEST [...] pneumonia or any other acute cardiopulmonary abnormality. Professor Of Education: PSCSandra Transcribe Date/Time: Feb 15 2021 12:36A Dictated by : JAIR GARIBAY MD This examination was interpreted and the report reviewed and electronically signed by: JAIR GARIBAY MD on Feb 15 2021 12:37AM EST [id number] Normal [facility] aPTT PPPon 02-15-2021 aPTT Coag (PPP) [Time] 27.9 s Normal 23.0-32.4 [facility] Comment on above: Order Comment: Speci men Type: BLOOD SPECIMEN Performed By: #### 2 4321-2, [facility], 1987-08 #### [facility] CLIA [id number] [address] OF [facility] Basic Metabolic Panelon 11-0 Calcium [Mass/Vol] 8.5 mg/dL Normal 8.4-10.4 [facility] Comment on above: Performed By: #### B GLU #### [facility] [address] [place] [address] Glucose [Mass/Vol] 103 mg/dL High 70-100 [facility] Comment on above: Performed By: #### B GLU #### [facility] [address] [place] [address] Urea nitrogen [Mass/Vol] 12 mg/dL Normal 7-17 [facility] Comment on above: Performed By: #### B GLU #### [facility] [address] [place] [address] Anion gap [Moles/Vol] 5 mmol/L Normal 3-13 [facility] Comment on above: Performed By: #### B GLU #### [facility] [address] [place] [address] CO2 [Moles/Vol] 23 mmol/L Normal 22-30 [facility] Comment on above: Performed By: #### B GLU #### [facility] [address] [place] [address] Creatinine [Mass/Vol] 0.90 mg/dL Normal 0.52-1.25 [facility] Comment on above: Performed By: #### B GLU #### [facility] [address] [place] [address] GFR/1.73 sq M.predicted among blacks MDRD (S/P/Bld) [Vol rate/Area] mL/min/{1.73_m2} Normal >60 [facility] Comment on above: Performed By: #### B GLU #### [facility] [address] [place] [address] GFR/1.73 sq M.predicted among non-blacks MDRD (S/P/Bld) [Vol rate/Area] 85.4 mL/min/{1.73_m2} Normal >60 [facility] Comment on above: Result Comment: KDIG O [...] secretion. Performed By: #### B GLU #### [facility] [address] [place] [address] Chloride [Moles/Vol] 106 mmol/L Normal 98-107 [facility] Comment on above: Performed By: #### B GLU #### [facility] [address] [place] [address] Potassium [Moles/Vol] 3.8 mmol/L Normal 3.5-5.1 [facility] Comment on above: Performed By: #### B GLU #### [facility] [address] [place] [address] Sodium [Moles/Vol] 134 mmol/L Low 135-145 [facility] Comment on above: Performed By: #### B GLU #### [facility] [email or web address] [facility] [address] [place] [address] Basic Metabolic Panel w/ Ref steve to MGOrdered By: Elyse Whitney on 02-01-2021 Anion gap [Moles/Vol] 5 mmol/L 3 - 13 mmol/L [email or web address] Work Phone: Calcium [Mass/Vol] 8.5 mg/dL 8.4 - 10. 4 mg/dL [facility] Work Phone: Chloride [Moles/Vol] 106 mmol/L 98 - 10 7 mmol/L [facility] Work Phone: CO2 [Moles/Vol] 23 mmol/L 22 - 30 mmol/L [email or web address] Work Phone: Creatinine [Mass/Vol] 0.9 mg/dL 0.52 - 1.25 mg/dL [email or web address] Work Phone: EGFR IF NonAfrican Croatian 85.4 mL/min >60 [facility] Work Phone: Comment on above: [...] mg/dL [facility] Work Phone: Test Performed by [facility], [address] [place], [place] [address] [facility] Work Phone: [facility] Work Phone: CBC [...] [facility] Work Phone: Hematocrit (Bld) [Volume fraction] 41.7 % 40.0 - 52.0 % [facility] Work Phone: Hemoglobin.gastrointest inal spec 1 Ql (Stl) 14.0 g/dL 13.0 - 18.0 g/dL [facility] Work Phone: [phone] Interpretation and review of laboratory results Abnormal [facility] Work Phone: [phone] Lymphocytes (Bld) [#/Vol] 1.3 10*3/uL 1.0 - 4.3 10*3/uL [facility] Work Phone: [phone] Lymphocytes/100 WBC (Bld) 24.9 % 20.0 - 40.0 % [facility] Work Phone: 1() 222 MCH (RBC) [Entitic mass] 29.9 pg 26.0 - 34.0 pg [facility] Work Phone: ) 222 MCHC (RBC) [Mass/Vol] 33.6 % 32.0 - 36.0 % [facility] Work Phone: [phone] MCV (RBC) [Entitic vol] 89.0 fL 80.0 - 98.0 fL [facility] Work Phone: 222 Monocytes (Bld) [#/Vol] 0.4 10*3/uL 0.0 - 0.8 10*3/uL [facility] Work Phone: ) 222 Monocytes/100 WBC (Bld) 7.6 % 2.0 - 10.0 % [facility] Work Phone: [phone] Platelet distribution width (Bld) [Ratio] 12.0 % 11.5 - 14.5 % [facility] Work Phone: Platelet mean volume (Bld) [Entitic vol] 7.9 fL 7.4 - 10.4 fL [facility] Work Phone: () 222 Platelets (Bld) [#/Vol] 107 10*3/uL Low 140 - 440 10*3/uL [facility] Work Phone: () 222 RBC (Bld) [#/Vol] 4.69 10*6/uL 4.40 - 5.90 10*6/uL [facility] Work Phone: 1() 222 WBC (Bld) [#/Vol] 5.2 10*3/uL 3.6 - 10.7 10*3/uL [facility] Work Phone: [phone] Test Performed by [facility], [address] [place], [place] [address] [facility] Work Phone: ) [phone] [facility] Work Phone: [phone] Hemogram w/ Autodiffon 02-01 Abs Baso Cnt 0.0 10*3/uL Normal 0.0-0.2 [facility] Comment on above: Performed By: #### B GLU #### [facility] [address] [place] [address] Abs Neutrophile Cnt 3.3 10*3/uL Normal 1.8-7.0 [facility] Comment on above: Performed By: #### B GLU #### [facility] [address] [place] [address] Basophils/100 WBC (Bld) 0.6 % Normal 0.0-2.0 [facility] Comment on above: Performed By: #### B GLU #### [facility] [address] [place] [address] Eosinophils (Bld) [#/Vol] 0.1 10*3/uL Normal 0.0-0.5 [facility] Comment on above: Performed By: #### B GLU #### [facility] [address] [place] [address] Eosinophils/100 WBC (Bld) 2.7 % Normal 1.0-6.0 [facility] Comment on above: Performed By: #### B GLU #### [facility] [address] [place] [address] Erythrocyte distribution width (RBC) [Ratio] 12.0 % Normal 11.5-14.5 [facility] Comment on above: Performed By: #### B GLU #### [facility] [address] [place] [address] Granulocytes/100 WBC (Bld) 64.2 % Normal 40.0-80.0 [facility] Comment on above: Performed By: #### B GLU #### [facility] [address] [place] [address] Hematocrit (Bld) [Volume fraction] 41.7 % Normal 40.0-52.0 [facility] Comment on above: Performed By: #### B GLU #### [facility] [address] [place] [address] Hemoglobin (Bld) [Mass/Vol] 14.0 g/dL Normal 13.0-18.0 [facility] Comment on above: Performed By: #### B GLU #### [facility] [address] [place] [address] Lymphocytes (Bld) [#/Vol] 1.3 10*3/uL Normal 1.0-4.3 [facility] Comment on above: Performed By: #### B GLU #### [facility] [address] [place] [address] Lymphocytes/100 WBC (Bld) 24.9 % Normal 20.0-40.0 [facility] Comment on above: Performed By: #### B GLU #### [facility] [address] [place] [address] MCH (RBC) [Entitic mass] 29.9 pg Normal 26.0-34.0 [facility] Comment on above: Performed By: #### B GLU #### [facility] [address] [place] [address] MCHC 33.6 % Normal 32.0-36.0 [facility] Comment on above: Performed By: #### B GLU #### [facility] [address] [place] [address] MCV (RBC) [Entitic vol] 89.0 fL Normal 80.0-98.0 [facility] Comment on above: Performed By: #### B GLU #### [facility] [address] [place] [address] Monocytes (Bld) [#/Vol] 0.4 10*3/uL Normal 0.0-0.8 [facility] Comment on above: Performed By: #### B GLU #### [facility] [address] [place] [address] Monocytes/100 WBC (Bld) 7.6 % Normal 2.0-10.0 [facility] Comment on above: Performed By: #### B GLU #### [facility] [address] [place] [address] Platelet mean volume (Bld) [Entitic vol] 7.9 fL Normal 7.4-10.4 [facility] Comment on above: Performed By: #### B GLU #### [facility] [address] [place] [address] Platelets (Bld) [#/Vol] 107 10*3/uL Low 140-440 [facility] Comment on above: Performed By: #### B GLU #### [facility] [address] [place] [address] RBC (Bld) [#/Vol] 4.69 10*6/uL Normal 4.40-5.90 [facility] Comment on above: Performed By: #### B GLU #### [facility] [address] [place] [address] WBC (Bld) [#/Vol] 5.2 10*3/uL Normal 3.6-10.7 [facility] Comment on above: Performed By: #### B GLU #### [facility] [address] 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1950 Requested By: DENZEL MENDES Order Number: [id number] Reading MD: Magno Meadows Measurements Intervals [place] Rate: 71 P: 39 MA: 184 QRS: -66 QRSD: 120 T: 47 QT: 404 QTc: 439 Interpretive Statements SINUS RHYTHM LEFT ANTERIOR FASCICULAR BLOCK BASELINE WANDER IN LEAD(S) V2 Electronically Signed On 01-31-2021 12:23:30 EDT by Magno Meadows [facility] Work Phone: Mark, [facility] Incoming Cardiology Results From [facility] - 01/31/2021 12:24 PM EDT [facility] Test Date: 2021-01-30 Pat Name: SHOLA MARTINEZ Department: 01 Room: 37 Gender: M 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1950 Requested By: DENZEL MENDES Order Number: [id number] Reading MD: Magno Meadows Measurements Intervals [place] Rate: 71 P: 39 MA: 184 QRS: -66 QRSD: 120 T: 47 QT: 404 QTc: 439 Interpretive Statements SINUS RHYTHM LEFT ANTERIOR FASCICULAR BLOCK BASELINE WANDER IN LEAD(S) V2 Electronically Signed On 01-31-2021 12:23:30 EDT by Magno Meadows [facility] Work Phone: [employer] Work Phone: Lipid Panelon 01-31-2021 Chol/HDL 3 Normal [facility] Comment on above: Result Comment: Ref Range: < 3 Low Risk for CHD 3-6 Mod Risk for CHD > 6 High Risk for CHD Performed By: #### B GLU #### [facility] [email or web address] [facility] [address] [place] [address] Cholesterol in HDL [Mass/Vol] 24 mg/dL Low 40-60 [facility] Comment on above: Performed By: #### B GLU #### [facility] [email or web address] [facility] [address] [place] [address] Low Density Lipoprotein 14 mg/dL Normal <100 [facility] Comment on above: Performed By: #### B GLU #### [facility] [address] [place] [address] Triglyceride [Mass/Vol] 147 mg/dL Normal <150 [facility] Comment on above: Performed By: #### B GLU #### [facility] [address] [place] [address] Cholesterol [Mass/Vol] 67 mg/dL Normal < [address] [facility] Comment on above: Performed By: #### B GLU #### [facility] [email or web address] [facility] [address] [place] [address] Lipid panel - fastingOrdered By: Eb Burgos on 01-31-2021 Cholesterol [Mass/Vol] 67 mg/dL <200 [place] [employer] Work Phone: Cholesterol in HDL [Mass/Vol] 24 mg/dL Low 40 - 60 mg/dL [facility] Work Phone: Cholesterol in LDL [Mass/Vol] 14 mg/dL <100 [facility] Work Phone: Cholesterol.total/Yoselin sterol in HDL [Mass ratio] 3 {ratio} [facility] Work Phone: Comment on above: Ref Range: < 3 Low Risk for CHD 3-6 Mod Risk for CHD > 6 High Risk for CHD Interpretation and review of laboratory results Abnormal [facility] Work Phone: Triglyceride [Mass/Vol] 147 mg/dL <150 [facility] Work Phone: Test Performed by [facility], [address] [place], [place] [address] [facility] Work Phone: [facility] Work Phone: MRI Brain w/o Contraston MRI Brain w/o Contrast Patient Name: SHOLA TERRY Magnetic Resonance Imaging ACCESSION EXAM DATE/TIME PROCEDURE ORDERING PROVIDER [id number] 01/31/2021 13:35 EDT MRI Brain w/o Contrast 5640 -EB BURGOS CPT code 89453 Reason For Exam (MRI Brain w/o Contrast) [...] Report Dictated on Final Dictating Physician: MD SHERRIE, JUSTINE GIBBS Signed Date and Time: 01/31/2021 2:48 pm Signed by: MD BALDERAS WASSIM OSAMA Transcribed Date and Time: 01/31/2021 2:49 Normal [facility] MRI brain without contrast ( REVIEW IMAGING OBTAINED IN LAST 2 YRS to determine indication)Ordered By: Eb Burgos on 01-31-2021 Patient Name: SHOLA URBINA ND Magnetic Resonance Imaging ACCESSION EXAM DATE/TIME PROCEDURE ORDERING PROVIDER [id number] 01/31/2021 13:35 EDT MRI Brain w/o Contrast 5640 -[place] EB CPT code 09997 Reason For Exam (MRI Brain w/o Contrast) [...] GIBBS Transcribed Date and Time: 01/31/2021 2:49 [facility] Work Phone: Mark, [facility] In[facility] Results From [facility] - 01/31/2021 2:49 PM EDT Patient Name: SHOLA MARTINEZ Magnetic Resonance Imaging ACCESSION EXAM DATE/TIME PROCEDURE ORDERING PROVIDER [id number] 01/31/2021 13:35 EDT MRI Brain w/o Contrast 5640 EB [place] CPT code 09197 Reason For Exam (MRI Brain w/o Contrast) [...] GIBBS Transcribed Date and Time: 01/31/2021 2:49 [facility] Work Phone: [facility] Work Phone: APTTon 01-30-2021 aPTT Coag (Bld) [Time] 26.3 s Normal 20.0-30.[address] [facility] Comment on above: Result Comment: NOTE : The therapeutic time for Heparin anticoagulation, based on Xa activity inhibition, is an APTT of 46-80 seconds. Performed By: #### B GLU #### [facility] [address] [place] [address] APTTOrdered By: Denzel kinney on 01-30-2021 aPTT Coag (Bld) [Time] 26.3 s 20.0 - 30.5 s [facility] Work Phone: Comment on above: NOTE: The therapeuti c time for Heparin anticoagulation, based on Xa activity inhibition, is an APTT of 46-80 seconds. CBC Auto DifferentialOrdered By: Denzel Mendes on 01-30-2021 Absolute Baso # 0.0 10*3/uL 0.0 - 0.2 10*3/uL [facility] Work Phone: [phone] Absolute Neut # 5.0 10*3/uL 1.8 - 7.0 10*3/uL [facility] Work Phone: [phone] Basophils/100 WBC (Bld) 0.5 % 0.0 - 2.0 % [facility] Work Phone: [phone]() [phone] Eosinophils (Bld) [#/Vol] 0.1 10*3/uL 0.0 - 0.5 10*3/uL [facility] Work Phone: 1() 222 Eosinophils/100 WBC (Bld) 1.5 % 1.0 - 6.0 % [email or web address] Work Phone: 1() 222 Granulocytes/100 WBC (Bld) 78.6 % 40.0 - 80.0 % [email or web address] Work Phone: [phone] Hematocrit (Bld) [Volume fraction] 41.6 % 40.0 - 52.0 % [email or web address] Work Phone: [phone] Hemoglobin.gastrointest inal spec 1 Ql (Stl) 14.6 g/dL 13.0 - 18.0 g/dL [email or web address] Work Phone: [phone] Interpretation and review of laboratory results Abnormal [employer] Work Phone: 1() 222 Lymphocytes (Bld) [#/Vol] 0.9 10*3/uL Low 1.0 - 4.3 10*3/uL [facility] Work Phone: 1() 222 Lymphocytes/100 WBC (Bld) 14.0 % Low 20.0 - 40.0 % [facility] Work Phone: [phone]) 222 MCH (RBC) [Entitic mass] 30.4 pg 26.0 - 34.0 pg [facility] Work Phone: [phone] MCHC (RBC) [Mass/Vol] 35.1 % 32.0 - 36.0 % [facility] Work Phone: [phone] MCV (RBC) [Entitic vol] 86.4 fL 80.0 - 98.0 fL [facility] Work Phone: [phone] Monocytes (Bld) [#/Vol] 0.3 10*3/uL 0.0 - 0.8 10*3/uL [email or web address] Work Phone: [phone] Monocytes/100 WBC (Bld) 5.4 % 2.0 - 10.0 % [email or web address] Work Phone: [phone] Platelet distribution width (Bld) [Ratio] 12.7 % 11.5 - 14.5 % [email or web address] Work Phone: Platelet mean volume (Bld) [Entitic vol] 7.5 fL 7.4 - 10.4 fL [email or web address] Work Phone: [phone] Platelets (Bld) [#/Vol] 114 10*3/uL Low 140 - 440 10*3/uL [email or web address] Work Phone: [phone] RBC (Bld) [#/Vol] 4.82 10*6/uL 4.40 - 5.90 10*6/uL [email or web address] Work Phone: [phone] WBC (Bld) [#/Vol] 6.3 10*3/uL 3.6 - 10.7 10*3/uL [email or web address] Work Phone: Test Performed by [facility], [address] [place] [id number] [email or web address] Work Phone: [phone] [employer] Work Phone: [phone] HEAD WO CONTRASTOrdered B y: Denzel Mendes on 01-30-2021 Patient Name: SHOLA URBINA ND Computed Tomography ACCESSION EXAM DATE/TIME PROCEDURE ORDERING PROVIDER [id number] 01/30/2021 18:[address] Head or Brain w/o Sukhdeep CHERRY DENZEL Contrast CPT code 39066 Reason For Exam (CT Head or Brain [...] Phone: Mark, [facility] Incoming Rad[facility] Results From [facility] - 01/30/2021 7:16 PM EDT Patient Name: SHOLA MARTINEZ Computed Tomography ACCESSION EXAM DATE/TIME PROCEDURE ORDERING PROVIDER [id number] 01/30/2021 18:[address] Head or Brain w/o DENZEL CLIFTON Contrast CPT code 33655 Reason For Exam (CT Head or Brain [...] and changes of microangiopathy. Report Dictated on Workstation: [email or web address] [id number] --- Final --- Dictating Physician: MD HARGROVE NEIL Signed Date and Time: 01/30/2021 7:15 pm Signed by: MD HARGROVE NEIL Transcribed Date and Time: 01/30/2021 7:16 [facility] Work Phone: [facility] Work Phone: CT Head or Brain w/o Contras ton 01-30-2021 CT Head or Brain w/o Contrast [facility]: [id number] Tomography ACCESSION EXAM DATE/TIME PROCEDURE ORDERING PROVIDER [id number] 01/30/2021 18:[address] Head or Brain w/o 5615 -DENZEL MENDES Contrast CPT code 59226 Reason For Exam (CT Head or Brain [...] and changes of microangiopathy. Report Dictated on Workstation: [place] [id number] Final Dictating Physician: MD HARGROVE NEIL Signed Date and Time: 01/30/2021 7:15 pm Signed by: MD HARGROVE NEIL Transcribed Date and Time: 01/30/2021 7:16 Normal [facility] Comp Panel with Mg Reflexon 01-30-2021 ALT [Catalytic activity/Vol] 27 U/L Normal 0-49 [facility] Comment on above: Result Comment: The ALT test is performed by an updated assay method. Please note that the reference intervals have been changed and are now sex specific. Performed By: #### B GLU #### [facility] [address] [place] [address] Calcium [Mass/Vol] 9.1 mg/dL Normal 8.4-10.4 [facility] Comment on above: Performed By: #### B GLU #### [facility] [address] [place] [address] Glucose [Mass/Vol] 130 mg/dL High 70-100 [facility] Comment on above: Performed By: #### B GLU #### [facility] [address] [place] [address] ALP [Catalytic activity/Vol] 75 U/L Normal 38-126 [facility] Comment on above: Performed By: #### B GLU #### [facility] [address] [place] [address] Anion gap [Moles/Vol] 10 mmol/L Normal 3-13 [facility] Comment on above: Performed By: #### B GLU #### [facility] [address] [place] [address] AST [Catalytic activity/Vol] 35 U/L Normal 15-46 [facility] Comment on above: Performed By: #### B GLU #### [facility] [address] [place] [address] Bilirubin [Mass/Vol] 2.4 mg/dL High 0.2-1.3 [facility] Comment on above: Performed By: #### B GLU #### [facility] [address] [place] [address] CO2 [Moles/Vol] 23 mmol/L Normal 22-30 [facility] Comment on above: Performed By: #### B GLU #### [facility] [address] [place] [address] Creatinine [Mass/Vol] 0.86 mg/dL Normal 0.52-1.25 [facility] Comment on above: Performed By: #### B GLU #### [facility] [address] [place] [address] GFR/1.73 sq M.predicted among blacks MDRD (S/P/Bld) [Vol rate/Area] mL/min/{1.73_m2} Normal >60 [facility] Comment on above: Performed By: #### B GLU #### [facility] [address] [place] [address] GFR/1.73 sq M.predicted among non-blacks MDRD (S/P/Bld) [Vol rate/Area] 87.0 mL/min/{1.73_m2} Normal >60 [facility] Comment on above: Result Comment: KDIG O [...] secretion. Performed By: #### B GLU #### [facility] [address] [place] [address] Protein [Mass/Vol] 6.7 g/dL Normal 6.3-8.2 [facility] Comment on above: Performed By: #### B GLU #### [facility] [address] [place] [address] Urea nitrogen [Mass/Vol] 12 mg/dL Normal 7-17 [facility] Comment on above: Performed By: #### B GLU #### [facility] [address] [place] [address] Potassium [Moles/Vol] 4.1 mmol/L Normal 3.5-5.1 [facility] Comment on above: Performed By: #### B GLU #### [facility] [address] [place] [address] Sodium [Moles/Vol] 134 mmol/L Low 135-145 [facility] Comment on above: Performed By: #### B GLU #### [facility] [address] [place] [address] Albumin [Mass/Vol] 4.1 g/dL Normal 3.5-5.0 [facility] Comment on above: Performed By: #### B GLU #### [facility] [address] [place] [address] Chloride [Moles/Vol] 102 mmol/L Normal 98-107 [facility] Comment on above: Performed By: #### B GLU #### [facility] [address] [place] [address] Comprehensive Metabolic Pane l w/ Reflex to MGOrdered By: Denzel Mendes on 01-30-2021 Albumin [Mass/Vol] 4.1 g/dL 3.5 - 5.0 g/dL [facility] Work Phone: ALP (Bld) [Catalytic activity/Vol] 75 U/L 38 - 126 U/L [facility] Work Phone: [phone] ALT [Catalytic activity/Vol] 27 U/L 0 - 49 U/L [facility] Work Phone: [phone] Comment on above: The ALT test is perf ormed by an updated assay method. Please note that the reference intervals have been changed and are now sex specific. Anion gap [Moles/Vol] 10 mmol/L 3 - 13 mmol/L [facility] Work Phone: [phone] AST [Catalytic activity/Vol] 35 U/L 15 - 46 U/L [facility] Work Phone: [phone] Bilirubin [Mass/Vol] 2.4 mg/dL High 0.2 - 1 .3 mg/dL [facility] Work Phone: [phone] Calcium [Mass/Vol] 9.1 mg/dL 8.4 - 10. 4 mg/dL [facility] Work Phone: [phone] Chloride [Moles/Vol] 102 mmol/L 98 - 10 7 mmol/L [facility] Work Phone: [phone] CO2 [Moles/Vol] 23 mmol/L 22 - 30 mmol/L [facility] Work Phone: [phone] Creatinine [Mass/Vol] 0.86 mg/dL 0.52 - 1.25 mg/dL [facility] Work Phone: [phone] EGFR IF NonAfrican Croatian 87.0 mL/min >60 [facility] Work Phone: [phone] Comment on above: [...] fraction] 6.7 g/dL 6.3 - 8.2 g/dL [facility] Work Phone: [phone] GFR/1.73 sq M.predicted among blacks MDRD (S/P/Bld) [Vol rate/Area] mL/min/{1.73_m2} >60 mL/min [facility] Work Phone: [phone] Glucose [Mass/Vol] 130 mg/dL High 70 - 100 mg/dL [facility] Work Phone: [phone] Interpretation and review of laboratory results Abnormal [facility] Work Phone: [phone] Potassium [Moles/Vol] 4.1 mmol/L 3.5 - 5.1 mmol/L [facility] Work Phone: [phone] Sodium [Moles/Vol] 134 mmol/L Low 135 - 145 mmol/L [facility] Work Phone: [phone] Urea nitrogen (BldV) [Mass/Vol] 12 mg/dL 7 - 17 mg/dL [email or web address] Work Phone: Test Performed by [facility], [address] [place], [place], [place] [address] [facility] Work Phone: [facility] Work Phone: ED Provider Noteon ED Provider Note Emergency Department Encounter [facility] ED Patient: Shola Martinez : 1950 Date of Evaluation: 01/30/2021 ED Supervising Physician: Jesse Pakc MD I independently examined and evaluated Shola [...] are mis-transcribed.) Jesse Pack MD [employer] Jesse Pack MD 01/31/21 0743 [facility] ED Provider Note [facility] ED eMERGENCY dEPARTMENT eNCOUnter Pt Name: Shola [...] ? Cataract ? Chronic obstructive pulmonary disease ([facility]) 08/20/2018 ? CKD (chronic kidney disease) stage 2, GFR 60-89 ml/min 09/12/2019 ? Community acquired pneumonia 04/2016 ? Diabetic neuropathy ([facility]) ? Dizziness after head injury 05/2013 ? Hx of blood clots ? Hyperlipidemia ? Hypertension ? Morbid obesity ([facility]) 05/21/2018 ? Recurrent UTI 02/03/2018 ? Sepsis due to gram-negative UTI ([facility]) 12/11/2017 ? Sleep apnea ? Type [...] BY M (more content not included)... Normal [facility] Hemogram w/ Autodiffon 01-30 Abs Baso Cnt 0.0 10*3/uL Normal 0.0-0.2 [facility] Comment on above: Performed By: #### B GLU #### [facility] [address] [place] [address] Abs Neutrophile Cnt 5.0 10*3/uL Normal 1.8-7.0 [facility] Comment on above: Performed By: #### B GLU #### [facility] [address] [facility] [place] [address] Basophils/100 WBC (Bld) 0.5 % Normal 0.0-2.0 [facility] Comment on above: Performed By: #### B GLU #### [facility] [address] [facility] [place] [address] Eosinophils (Bld) [#/Vol] 0.1 10*3/uL Normal 0.0-0.5 [facility] Comment on above: Performed By: #### B GLU #### [facility] [address] [facility] [place] [address] Eosinophils/100 WBC (Bld) 1.5 % Normal 1.0-6.0 [facility] Comment on above: Performed By: #### B GLU #### [facility] [address] [facility] [place] [address] Erythrocyte distribution width (RBC) [Ratio] 12.7 % Normal 11.5-14.5 [facility] Comment on above: Performed By: #### B GLU #### [facility] [address] [place] [address] Granulocytes/100 WBC (Bld) 78.6 % Normal 40.0-80.0 [facility] Comment on above: Performed By: #### B GLU #### [facility] [address] [place] [address] Hematocrit (Bld) [Volume fraction] 41.6 % Normal 40.0-52.0 [facility] Comment on above: Performed By: #### B GLU #### [facility] [address] [place] [address] Hemoglobin (Bld) [Mass/Vol] 14.6 g/dL Normal 13.0-18.0 [facility] Comment on above: Performed By: #### B GLU #### [facility] [address] [place] [address] Lymphocytes (Bld) [#/Vol] 0.9 10*3/uL Low 1.0-4.3 [facility] Comment on above: Performed By: #### B GLU #### [facility] [address] [place] [address] Lymphocytes/100 WBC (Bld) 14.0 % Low 20.0-40.0 [facility] Comment on above: Performed By: #### B GLU #### [facility] [address] [place] [address] MCH (RBC) [Entitic mass] 30.4 pg Normal 26.0-34.0 [facility] Comment on above: Performed By: #### B GLU #### [facility] [address] [place] [address] MCHC 35.1 % Normal 32.0-36.0 [facility] Comment on above: Performed By: #### B GLU #### [facility] [address] [place] [address] MCV (RBC) [Entitic vol] 86.4 fL Normal 80.0-98.0 [facility] Comment on above: Performed By: #### B GLU #### [facility] [address] [place] [address] Monocytes (Bld) [#/Vol] 0.3 10*3/uL Normal 0.0-0.8 [facility] Comment on above: Performed By: #### B GLU #### [facility] [address] [place] [address] Monocytes/100 WBC (Bld) 5.4 % Normal 2.0-10.0 [facility] Comment on above: Performed By: #### B GLU #### [facility] [address] [place] [address] Platelet mean volume (Bld) [Entitic vol] 7.5 fL Normal 7.4-10.4 [facility] Comment on above: Performed By: #### B GLU #### [facility] [address] [place] [address] Platelets (Bld) [#/Vol] 114 10*3/uL Low 140-440 [facility] Comment on above: Performed By: #### B GLU #### [facility] [address] [place] [address] RBC (Bld) [#/Vol] 4.82 10*6/uL Normal 4.40-5.90 [facility] Comment on above: Performed By: #### B GLU #### [facility] [address] [place] [address] WBC (Bld) [#/Vol] 6.3 10*3/uL Normal 3.6-10.7 [facility] Comment on above: Performed By: #### B GLU #### [facility] [address] [place] [address] No Panel InformationOrdered By: Denzel Mendes on 01-30-2021 Test Performed by [facility], [address] [place] [address] [facility] Work Phone: [facility] Work Phone: Prothrombin Timeon 1 INR 1.1 Normal 0.9-1.1 [facility] Comment on above: Result Comment: Jacob mmended [...] Infarction Performed By: #### B GLU #### [facility] [address] [place] [address] PT Coag (PPP) [Time] 11.5 s Normal 9.0-12.0 [facility] Comment on above: Result Comment: . Performed By: #### B GLU #### [facility] [address] [place] [address] Protime-INROrdered By: Denzel Mendes on 01-30-2021 INR Coag (Bld) [Relative time] 1.1 {INR} [employer] Work Phone: Comment on above: Recommended Anticoag [...] 11.5 s 9.0 - 1 2.0 s [employer] Work Phone: Comment on above: . TroponinOrdered By: Denzel Mario on 01-30-2021 Troponin I.cardiac [Mass/Vol] ng/mL 0.000 - 0.034 ng/mL [email or web address] Work Phone: Comment on above: . Test Performed by [facility], [address] [place], [place] [address] [facility] Work Phone: [facility] Work Phone: Troponin Ion 01-30-2021 Troponin I.cardiac [Mass/Vol] ng/mL Normal 0.000-0.03 4 [facility] Comment on above: Result Comment: . Performed By: #### B GLU #### [facility] [address] [place] [address] Glucose,Bedsideon 10-07-2020 Glucose [Mass/Vol] 139 mg/dL High 70-100 [facility] Comment on above: Result Comment: Test performed by glucose meter. Results may be 10%-15% lower than serum/plasma values. (CLIA ID [id number]) Performed By: #### B GLU #### [facility] [address] [place] [address] Glucose [Mass/Vol] 119 mg/dL High 70-100 [facility] Comment on above: Result Comment: Test performed by glucose meter. Results may be 10%-15% lower than serum/plasma values. (CLIA ID [id number]) Performed By: #### A DDON #### [facility] [address] [place] [address] Glucose,Bedsideon 10-06-2020 Glucose [Mass/Vol] 147 mg/dL High 70-100 [facility] Comment on above: Result Comment: Test performed by glucose meter. Results may be 10%-15% lower than serum/plasma values. (CLIA ID [id number]) Performed By: #### B GLU #### [facility] [address] [place] [address] Glucose [Mass/Vol] 147 mg/dL High [address] [facility] Comment on above: Result Comment: Test performed by glucose meter. Results may be 10%-15% lower than serum/plasma values. (CLIA ID [id number]) Performed By: #### B GLU #### [facility] [address] [place] [address] Glucose [Mass/Vol] 126 mg/dL High [address] [facility] Comment on above: Result Comment: Test performed by glucose meter. Results may be 10%-15% lower than serum/plasma values. (CLIA ID [id number]) Performed By: #### A DDON #### [facility] [address] [place] [address] Glucose [Mass/Vol] 237 mg/dL High 70-100 [facility] Comment on above: Result Comment: Test performed by glucose meter. Results may be 10%-15% lower than serum/plasma values. (CLIA ID [id number]) Performed By: #### B GLU #### [facility] [place] [place] [email or web address] [facility] [address] [place] [address] Glucose [Mass/Vol] 116 mg/dL High 70-100 [facility] Comment on above: Result Comment: Test performed by glucose meter. Results may be 10%-15% lower than serum/plasma values. (CLIA ID [id number]) Performed By: #### B GLU #### [facility] [address] [place] [address] Glucose,Bedsideon 10-05-2020 Glucose [Mass/Vol] 185 mg/dL High 70-100 [facility] Comment on above: Result Comment: Test performed by glucose meter. Results may be 10%-15% lower than serum/plasma values. (CLIA ID [id number]) Performed By: #### B GLU #### [employer] [facility] [address] [place] [address] Glucose [Mass/Vol] 122 mg/dL High 70-100 [facility] Comment on above: Result Comment: Test performed by glucose meter. Results may be 10%-15% lower than serum/plasma values. (CLIA ID [id number]) Performed By: #### B GLU #### [employer] [place] [email or web address] [facility] [address] [place] [address] Glucose [Mass/Vol] 191 mg/dL High 70-100 [facility] Comment on above: Result Comment: Test performed by glucose meter. Results may be 10%-15% lower than serum/plasma values. (CLIA ID [id number]) Performed By: #### B GLU #### [employer] [facility] [address] [place] [address] Glucose [Mass/Vol] 117 mg/dL High 70-100 [facility] Comment on above: Result Comment: Test performed by glucose meter. Results may be 10%-15% lower than serum/plasma values. (CLIA ID [id number]) Performed By: #### B GLU #### [facility] [address] [place] [address] Basic Metabolic Panelon 07-0 Calcium [Mass/Vol] 8.9 mg/dL Normal 8.4-10.4 [facility] Comment on above: Performed By: #### B GLU #### [facility] [address] [place] [address] Anion gap [Moles/Vol] 5 mmol/L Normal 3-13 [facility] Comment on above: Performed By: #### B GLU #### [facility] [address] [place] [address] CO2 [Moles/Vol] 28 mmol/L Normal 22-30 [facility] Comment on above: Performed By: #### B GLU #### [facility] [address] [place] [address] Creatinine [Mass/Vol] 0.84 mg/dL Normal 0.52-1.25 [facility] Comment on above: Performed By: #### B GLU #### [facility] [address] [place] [address] GFR/1.73 sq M.predicted among blacks MDRD (S/P/Bld) [Vol rate/Area] mL/min/{1.73_m2} Normal >60 [facility] Comment on above: Performed By: #### B GLU #### [facility] [address] [place] [address] GFR/1.73 sq M.predicted among non-blacks MDRD (S/P/Bld) [Vol rate/Area] 88.0 mL/min/{1.73_m2} Normal >60 [facility] Comment on above: Result Comment: KDIG O [...] secretion. Performed By: #### B GLU #### [facility] [address] [place] [address] Glucose [Mass/Vol] 121 mg/dL High 70-100 [facility] Comment on above: Performed By: #### B GLU #### [facility] [address] [place] [address] Urea nitrogen [Mass/Vol] 13 mg/dL Normal 7-20 [facility] Comment on above: Performed By: #### B GLU #### [facility] [address] [place] [address] Chloride [Moles/Vol] 101 mmol/L Normal 98-107 [facility] Comment on above: Performed By: #### B GLU #### [facility] [address] [place] [address] Potassium [Moles/Vol] 4.3 mmol/L Normal 3.5-5.1 [facility] Comment on above: Performed By: #### B GLU #### [facility] [address] [place] [address] Sodium [Moles/Vol] 133 mmol/L Low 135-145 [facility] Comment on above: Performed By: #### B GLU #### [facility] [address] [place] [address] Glucose,Bedsideon 10-04-2020 Glucose [Mass/Vol] 145 mg/dL High 70-100 [facility] Comment on above: Result Comment: Test performed by glucose meter. Results may be 10%-15% lower than serum/plasma values. (CLIA ID [id number]) Performed By: #### B GLU #### [facility] [address] [place] [address] Glucose [Mass/Vol] 128 mg/dL High 70-100 [facility] Comment on above: Result Comment: Test performed by glucose meter. Results may be 10%-15% lower than serum/plasma values. (CLIA ID [id number]) Performed By: #### B GLU #### [facility] [address] [place] [address] Glucose [Mass/Vol] 208 mg/dL High 70-100 [facility] Comment on above: Result Comment: Test performed by glucose meter. Results may be 10%-15% lower than serum/plasma values. (CLIA ID [id number]) Performed By: #### B GLU #### [facility] [address] [place] [address] Glucose [Mass/Vol] 145 mg/dL High 70-100 [facility] Comment on above: Result Comment: Test performed by glucose meter. Results may be 10%-15% lower than serum/plasma values. (CLIA ID [id number]) Performed By: #### B GLU #### [facility] [address] [place] [address] Hemogram w/ Autodiffon 10-04 Abs Baso Cnt 0.0 10*3/uL Normal 0.0-0.2 [facility] Comment on above: Performed By: #### B GLU #### [facility] [address] [place] [address] Abs Neutrophile Cnt 3.2 10*3/uL Normal 1.8-7.0 [facility] Comment on above: Performed By: #### B GLU #### [facility] [address] [place] [address] Basophils/100 WBC (Bld) 0.7 % Normal 0.0-2.0 [facility] Comment on above: Performed By: #### B GLU #### [facility] [address] [place] [address] Eosinophils (Bld) [#/Vol] 0.3 10*3/uL Normal 0.0-0.5 [facility] Comment on above: Performed By: #### B GLU #### [facility] [address] [place] [address] Eosinophils/100 WBC (Bld) 5.5 % Normal 1.0-6.0 [facility] Comment on above: Performed By: #### B GLU #### [facility] [address] [place] [address] Erythrocyte distribution width (RBC) [Ratio] 12.4 % Normal 11.5-14.5 [facility] Comment on above: Performed By: #### B GLU #### [facility] [address] [place] [address] Granulocytes/100 WBC (Bld) 60.5 % Normal 40.0-80.0 [facility] Comment on above: Performed By: #### B GLU #### [facility] [address] [place] [address] Hematocrit (Bld) [Volume fraction] 43.5 % Normal 40.0-52.0 [facility] Comment on above: Performed By: #### B GLU #### [place] [address] [place] [address] Hemoglobin (Bld) [Mass/Vol] 15.5 g/dL Normal 13.0-18.0 [facility] Comment on above: Performed By: #### B GLU #### [place] [address] [place] [address] Lymphocytes (Bld) [#/Vol] 1.4 10*3/uL Normal 1.0-4.3 [facility] Comment on above: Performed By: #### B GLU #### [place] [address] [place] [address] Lymphocytes/100 WBC (Bld) 26.1 % Normal 20.0-40.0 [facility] Comment on above: Performed By: #### B GLU #### [place] [address] [place] [address] MCH (RBC) [Entitic mass] 32.0 pg Normal 26.0-34.0 [facility] Comment on above: Performed By: #### B GLU #### [facility] [address] [place] [address] MCHC 35.6 % Normal 32.0-36.0 [facility] Comment on above: Performed By: #### B GLU #### [place] [address] [place] [address] MCV (RBC) [Entitic vol] 89.8 fL Normal 80.0-98.0 [facility] Comment on above: Performed By: #### B GLU #### [facility] [address] [place] [address] Monocytes (Bld) [#/Vol] 0.4 10*3/uL Normal 0.0-0.8 [facility] Comment on above: Performed By: #### B GLU #### [facility] [address] [place] [address] Monocytes/100 WBC (Bld) 7.2 % Normal 2.0-10.0 [facility] Comment on above: Performed By: #### B GLU #### [facility] [address] [place] [address] Platelet mean volume (Bld) [Entitic vol] 7.3 fL Low 7.4-10.4 [facility] Comment on above: Performed By: #### B GLU #### [facility] [address] [place] [address] Platelets (Bld) [#/Vol] 113 10*3/uL Low 140-440 [facility] Comment on above: Performed By: #### B GLU #### [facility] [address] [place] [address] RBC (Bld) [#/Vol] 4.84 10*6/uL Normal 4.40-5.90 [facility] Comment on above: Performed By: #### B GLU #### [facility] [address] [place] [address] WBC (Bld) [#/Vol] 5.3 10*3/uL Normal 3.6-10.7 [facility] Comment on above: Performed By: #### B GLU #### [facility] [address] [place] [address] Glucose,Bedsideon 10-03-2020 Glucose [Mass/Vol] 134 mg/dL High 70-100 [facility] Comment on above: Result Comment: Test performed by glucose meter. Results may be 10%-15% lower than serum/plasma values. (CLIA ID [id number]) Performed By: #### B GLU #### [facility] [address] [place] [address] Glucose [Mass/Vol] 132 mg/dL High 70-100 [facility] Comment on above: Result Comment: Test performed by glucose meter. Results may be 10%-15% lower than serum/plasma values. (CLIA ID [id number]) Performed By: #### A DDON #### [facility] [address] [place] [address] Glucose [Mass/Vol] 130 mg/dL High [address] Comment on above: Result Comment: Test performed by glucose meter. Results may be 10%-15% lower than serum/plasma values. (CLIA ID [id number]) Performed By: #### B GLU #### [facility] [address] [place] [address] Glucose [Mass/Vol] 151 mg/dL [address] Comment on above: Result Comment: Test performed by glucose meter. Results may be 10%-15% lower than serum/plasma values. (CLIA ID [id number]) Performed By: #### B GLU #### [facility] [address] [place] [address] Glucose,Bedsideon 10-02-2020 Glucose [Mass/Vol] 135 mg/dL [address] Comment on above: Result Comment: Test performed by glucose meter. Results may be 10%-15% lower than serum/plasma values. (CLIA ID [id number]) Performed By: #### B GLU #### [facility] [address] [place] [address] Glucose [Mass/Vol] 133 mg/dL [facility] [address] Comment on above: Result Comment: Test performed by glucose meter. Results may be 10%-15% lower than serum/plasma values. (CLIA ID [id number]) Performed By: #### B GLU #### [email or web address] [facility] [address] [place] [address] Glucose [Mass/Vol] 158 mg/dL [address] Comment on above: Result Comment: Test performed by glucose meter. Results may be 10%-15% lower than serum/plasma values. (CLIA ID [id number]) Performed By: #### B GLU #### [facility] [address] [place] [address] Glucose [Mass/Vol] 120 mg/dL High 70-100 [facility] Comment on above: Result Comment: Test performed by glucose meter. Results may be 10%-15% lower than serum/plasma values. (CLIA ID [id number]) Performed By: #### B GLU #### [facility] [address] [place] [address] Basic Metabolic Panelon 07-0 -2020 Calcium [Mass/Vol] 8.7 mg/dL Normal 8.4-10.4 [facility] Comment on above: Performed By: #### B GLU #### [facility] [address] [place] [address] Anion gap [Moles/Vol] 5 mmol/L Normal 3-13 [facility] Comment on above: Performed By: #### B GLU #### [facility] [address] [place] [address] CO2 [Moles/Vol] 26 mmol/L Normal 22-30 [facility] Comment on above: Performed By: #### B GLU #### [facility] [address] [place] [address] Creatinine [Mass/Vol] 0.88 mg/dL Normal 0.52-1.25 [facility] Comment on above: Performed By: #### B GLU #### [facility] [address] [place] [address] GFR/1.73 sq M.predicted among blacks MDRD (S/P/Bld) [Vol rate/Area] mL/min/{1.73_m2} Normal >60 [facility] Comment on above: Performed By: #### B GLU #### [facility] [address] [place] [address] GFR/1.73 sq M.predicted among non-blacks MDRD (S/P/Bld) [Vol rate/Area] 86.4 mL/min/{1.73_m2} Normal >60 [facility] Comment on above: Result Comment: KDIG O [...] secretion. Performed By: #### B GLU #### [facility] [address] [place] [address] Glucose [Mass/Vol] 120 mg/dL High 70-100 [facility] Comment on above: Performed By: #### B GLU #### [facility] [address] [place] [address] Urea nitrogen [Mass/Vol] 13 mg/dL Normal 7-20 [facility] Comment on above: Performed By: #### B GLU #### [facility] [address] [place] [address] Chloride [Moles/Vol] 101 mmol/L Normal 98-107 [facility] Comment on above: Performed By: #### B GLU #### [facility] [address] [place] [address] Potassium [Moles/Vol] 4.2 mmol/L Normal 3.5-5.1 [facility] Comment on above: Performed By: #### B GLU #### [facility] [address] [place] [address] Sodium [Moles/Vol] 132 mmol/L Low 135-145 [facility] Comment on above: Performed By: #### B GLU #### [facility] [address] [place] [address] Echo Complete w/wo Contrasto n 10-01-2020 Echo Complete w/wo Contrast Patient Name: SHOLA MARTINEZ Ultrasound ACCESSION EXAM DATE/TIME PROCEDURE ORDERING PROVIDER [id number] 10/01/2020 10:18 EDT Echo Complete w/wo 5879 -[facility] BALLARD Reason For Exam (Echo Complete w/wo Contrast) diastolic HF, no recent EF Report TRANSTHORACIC ECHOCARDIOGRAM PATIENT: Shola Martinez STUDY DATE: 10/01/2020 : 1950 AGE: 70 HT/WT: 188 cm (74 124.3 kg in) (273.4 lb) GENDER: M BP: 129 / 69 LOCATION: [facility] PATIENT Observation [facility] STATUS: *ORDERING PHYSICIAN: * Cierra Ballard *READING PHYSICIAN: * Pacheco Degroot MD, *PROCESS IMPROVEMENT ENGINEER: Sai Adamson [facility] INDICATIONS: Diastolic HF, No recent EF. CONCLUSIONS [...] 10.2 11.3 (more content not included)... Normal [email or web address] [facility] Glucose,Bedsideon 10-01-2020 Glucose [Mass/Vol] 119 mg/dL High 70-100 [facility] Comment on above: Result Comment: Test performed by glucose meter. Results may be 10%-15% lower than serum/plasma values. (CLIA ID [id number]) Performed By: #### B GLU #### [employer] [address] [place] [address] Glucose [Mass/Vol] 125 mg/dL High 70-[address] [place] [address] Comment on above: Result Comment: Test performed by glucose meter. Results may be 10%-15% lower than serum/plasma values. (CLIA ID [id number]) Performed By: #### B GLU #### [employer] [address] [place] [address] Glucose [Mass/Vol] 132 mg/dL High 70-100 [facility] Comment on above: Result Comment: Test performed by glucose meter. Results may be 10%-15% lower than serum/plasma values. (CLIA ID [id number]) Performed By: #### B GLU #### [employer] [address] [place] [address] Glucose [Mass/Vol] 119 mg/dL High 70-100 [facility] Comment on above: Result Comment: Test performed by glucose meter. Results may be 10%-15% lower than serum/plasma values. (CLIA ID [id number]) Performed By: #### B GLU #### [facility] [address] [place] [address] Hemogram w/ Autodiffon 10-01 Abs Baso Cnt 0.0 10*3/uL Normal 0.0-0.2 [facility] Comment on above: Performed By: #### B GLU #### [facility] [address] [place] [address] Abs Neutrophile Cnt 3.8 10*3/uL Normal 1.8-7.0 [facility] Comment on above: Performed By: #### B GLU #### [place] [address] [place] [address] Basophils/100 WBC (Bld) 0.7 % Normal 0.0-2.0 [facility] Comment on above: Performed By: #### B GLU #### [place] [address] [place] [address] Eosinophils (Bld) [#/Vol] 0.4 10*3/uL Normal 0.0-0.5 [facility] Comment on above: Performed By: #### B GLU #### [facility] [address] [place] [address] Eosinophils/100 WBC (Bld) 7.1 % High 1.0-6.0 [facility] Comment on above: Performed By: #### B GLU #### [place] [address] [place] [address] Erythrocyte distribution width (RBC) [Ratio] 12.1 % Normal 11.5-14.5 [facility] Comment on above: Performed By: #### B GLU #### [place] [address] [place] [address] Granulocytes/100 WBC (Bld) 61.8 % Normal 40.0-80.0 [facility] Comment on above: Performed By: #### B GLU #### [facility] [address] [place] [address] Hematocrit (Bld) [Volume fraction] 41.1 % Normal 40.0-52.0 [facility] Comment on above: Performed By: #### B GLU #### [facility] [address] [place] [address] Hemoglobin (Bld) [Mass/Vol] 14.5 g/dL Normal 13.0-18.0 [facility] Comment on above: Performed By: #### B GLU #### [facility] [address] [place] [address] Lymphocytes (Bld) [#/Vol] 1.5 10*3/uL Normal 1.0-4.3 [facility] Comment on above: Performed By: #### B GLU #### [facility] [address] [place] [address] Lymphocytes/100 WBC (Bld) 24.5 % Normal 20.0-40.0 [facility] Comment on above: Performed By: #### B GLU #### [facility] [address] [place] [address] MCH (RBC) [Entitic mass] 31.9 pg Normal 26.0-34.0 [facility] Comment on above: Performed By: #### B GLU #### [facility] [address] [place] [address] MCHC 35.4 % Normal 32.0-36.0 [facility] Comment on above: Performed By: #### B GLU #### [facility] [address] [place] [address] MCV (RBC) [Entitic vol] 90.1 fL Normal 80.0-98.0 [facility] Comment on above: Performed By: #### B GLU #### [facility] [address] [place] [address] Monocytes (Bld) [#/Vol] 0.4 10*3/uL Normal 0.0-0.8 [facility] Comment on above: Performed By: #### B GLU #### [facility] [address] [place] [address] Monocytes/100 WBC (Bld) 5.9 % Normal 2.0-10.0 [facility] Comment on above: Performed By: #### B GLU #### [facility] [address] [place] [address] Platelet mean volume (Bld) [Entitic vol] 7.1 fL Low 7.4-10.4 [facility] Comment on above: Performed By: #### B GLU #### [facility] [address] [place] [address] Platelets (Bld) [#/Vol] 131 10*3/uL Low 140-440 [facility] Comment on above: Performed By: #### B GLU #### [facility] [address] [place] [address] RBC (Bld) [#/Vol] 4.56 10*6/uL Normal 4.40-5.90 [facility] Comment on above: Performed By: #### B GLU #### [facility] [address] [place] [address] WBC (Bld) [#/Vol] 6.1 10*3/uL Normal 3.6-10.7 [facility] Comment on above: Performed By: #### B GLU #### [facility] [address] [place] [address] Lipid Panelon 10-01-2020 Chol/HDL 4 Normal [facility] Comment on above: Result Comment: Ref Range: < 3 Low Risk for CHD 3-6 Mod Risk for CHD > 6 High Risk for CHD Performed By: #### B GLU #### [facility] [address] [place] [address] Cholesterol in HDL [Mass/Vol] 23 mg/dL Low 40-60 [facility] Comment on above: Performed By: #### B GLU #### [facility] [address] [place] [address] Low Density Lipoprotein 22 mg/dL Normal <100 [facility] Comment on above: Performed By: #### B GLU #### [facility] [address] [place] [address] Cholesterol [Mass/Vol] 82 mg/dL Normal < [address] [facility] Comment on above: Performed By: #### B GLU #### [facility] [address] [place] [address] Triglyceride [Mass/Vol] 184 mg/dL Abnormal <150 [facility] Comment on above: Performed By: #### B GLU #### [facility] [address] [place] [address] MRA Head w/o Contraston 07-0 MRA Head w/o Contrast Patient Name: SHOLA MIN Magnetic Resonance Imaging ACCESSION EXAM DATE/TIME PROCEDURE ORDERING PROVIDER [id number] 10/01/2020 14:40 EDT MRA Head w/o Contrast CIERRA GONSALEZ CPT code 77085 Reason For Exam (MRA Head w/o Contrast) [...] is seen within the vessels of the [place]. 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 There is no critical intracranial stenosis. There [...] MRA other than origin of the left INDUSTRIAL REAL ESTATE AGENT. Unremarkable MRA of the carotid arteries. No evidence of carotid artery stenosis. Report Dictated on Workstation: [id number] Final Dictating Physician: DO GARCÍA ALFRED Signed Date and Time: 10/01/2020 3:16 pm Signed by: DO GARCÍA ALFRED Transcribed Date and Time: 10/01/2020 3:17 Normal [facility] MRA Neck w/ + w/o Contraston 10-01-2020 MRA Neck w/ + w/o Contrast Patient Name: SHOLA MARTINEZ [facility]#: [id number] Magnetic Resonance Imaging ACCESSION EXAM DATE/TIME PROCEDURE ORDERING PROVIDER [id number] 10/01/2020 15:07 EDT MRA Neck w/ + w/o CIERRA GONSALEZ Contrast CPT code 43398 Reason For Exam (MRA Neck w/ + [...] is seen within the vessels of the [place]. The globes and orbital contents [...] vessels. There is origin of the left INDUSTRIAL REAL ESTATE AGENT. There is no critical intracranial stenosis. There [...] MRA other than origin of the left INDUSTRIAL REAL ESTATE AGENT. Unremarkable MRA of the carotid arteries. No evidence of carotid artery stenosis. Report Dictated on Workstation: [id number] Final Dictating Physician: DO GARCÍA ALFRED Signed Date and Time: 10/01/2020 3:16 pm Signed by: DO GARCÍA ALFRED Transcribed Date and Time: 10/01/2020 3:17 Normal [facility] MRI Brain w/ + w/o Contrasto n 10-01-2020 MRI Brain w/ + w/o Contrast Patient Name: SHOLA MARTINEZ [facility]#: 1950 Magnetic Resonance Imaging ACCESSION EXAM DATE/TIME PROCEDURE ORDERING PROVIDER [id number] 10/01/2020 15:08 EDT MRI Brain w/ + w/o CIERRA GONSALEZ Contrast CPT code 26690 Reason For Exam (MRI Brain w/ + [...] is seen within the vessels of the [place]. The globes and orbital contents [...] vessels. There is origin of the left INDUSTRIAL REAL ESTATE AGENT. There is no critical intracranial stenosis. There [...] MRA other than origin of the left INDUSTRIAL REAL ESTATE AGENT. Unremarkable MRA of the carotid arteries. No evidence of carotid artery stenosis. Report Dictated on Workstation: [id number] Final Dictating Physician: DO GARCÍA ALFRED Signed Date and Time: 10/01/2020 3:16 pm Signed by: DO GARCÍA ALFRED Transcribed Date and Time: 10/01/2020 3:17 Normal [facility] [email or web address] [facility] Add on test from HISon 09-30 Add on test from HIS Accepted Normal [facility] [email or web address] [facility] Comment on above: Result Comment: Spec imen available & acceptable for analysis. Performed By: #### A DDON #### [facility] [address] [place] [address] CT Head or Brain w/o Contras ton 09-30-2020 CT Head or Brain w/o Contrast Patient Name: SHOLA MARTINEZ Computed Tomography ACCESSION EXAM DATE/TIME PROCEDURE ORDERING PROVIDER [id number] 09/30/2020 13:[address] Head or Brain w/o JESSE PACK Contrast CPT code 81026 Reason For Exam (CT Head or Brain [...] Report Dictated on Final Dictating Physician: MD SERGIO, MARIELOS Signed Date and Time: 09/30/2020 2:11 pm Signed by: MD SERGIO, AHMAD Transcribed Date and Time: 09/30/2020 2:13 Normal [facility] Comp Panel with Mg Reflexon 09-30-2020 ALP [Catalytic activity/Vol] 83 U/L Normal 38-126 [facility] Comment on above: Performed By: #### B GLU #### [facility] [address] [place] [address] ALT [Catalytic activity/Vol] 28 U/L Normal 0-49 [facility] Comment on above: Result Comment: The ALT test is performed by an updated assay method. Please note that the reference intervals have been changed and are now sex specific. Performed By: #### B GLU #### [facility] [address] [place] [address] Anion gap [Moles/Vol] 11 mmol/L Normal 3-13 [facility] Comment on above: Performed By: #### B GLU #### [facility] [address] [place] [address] AST [Catalytic activity/Vol] 37 U/L Normal 15-46 [facility] Comment on above: Performed By: #### B GLU #### [facility] [address] [place] [address] Bilirubin [Mass/Vol] 1.7 mg/dL High 0.2-1.3 [facility] Comment on above: Performed By: #### B GLU #### [facility] [address] [place] [address] Calcium [Mass/Vol] 9.5 mg/dL Normal 8.4-10.4 [facility] Comment on above: Performed By: #### B GLU #### [facility] [address] [place] [address] CO2 [Moles/Vol] 21 mmol/L Low 22-30 [facility] Comment on above: Performed By: #### B GLU #### [facility] [address] [place] [address] Creatinine [Mass/Vol] 0.90 mg/dL Normal 0.52-1.25 [facility] Comment on above: Performed By: #### B GLU #### [facility] [address] [place] [address] GFR/1.73 sq M.predicted among blacks MDRD (S/P/Bld) [Vol rate/Area] mL/min/{1.73_m2} Normal >60 [facility] Comment on above: Performed By: #### B GLU #### [facility] [address] [place] [address] GFR/1.73 sq M.predicted among non-blacks MDRD (S/P/Bld) [Vol rate/Area] 85.6 mL/min/{1.73_m2} Normal >60 [facility] Comment on above: Result Comment: KDIG O [...] secretion. Performed By: #### B GLU #### [facility] [address] [place] [address] Glucose [Mass/Vol] 173 mg/dL High 70-100 [facility] Comment on above: Performed By: #### B GLU #### [facility] [address] [place] [address] Protein [Mass/Vol] 7.6 g/dL Normal 6.3-8.2 [facility] Comment on above: Performed By: #### B GLU #### [facility] [address] [place] [address] Urea nitrogen [Mass/Vol] 12 mg/dL Normal 7-20 [facility] Comment on above: Performed By: #### B GLU #### [facility] [address] [place] [address] Albumin [Mass/Vol] 4.3 g/dL Normal 3.5-5.0 [facility] Comment on above: Performed By: #### B GLU #### [facility] [address] [place] [address] Chloride [Moles/Vol] 102 mmol/L Normal 98-107 [facility] Comment on above: Performed By: #### B GLU #### [facility] [address] [place] [address] Potassium [Moles/Vol] 4.2 mmol/L Normal 3.5-5.1 [facility] Comment on above: Performed By: #### B GLU #### [facility] [address] [place] [address] Sodium [Moles/Vol] 135 mmol/L Normal 135-145 [facility] Comment on above: Performed By: #### B GLU #### [facility] [address] [place] [address] ED Provider Noteon ED Provider Note [facility] ED EMERGENCY DEPARTMENT ENCOUNTER Pt Name: Shola [...] ? Cataract ? Chronic obstructive pulmonary disease ([facility]) 08/20/2018 ? CKD (chronic kidney disease) stage 2, GFR 60-89 ml/min 09/12/2019 ? Community acquired pneumonia 04/2016 ? Diabetic neuropathy ([facility]) ? Dizziness after head injury 05/2013 ? Hx of blood clots ? Hyperlipidemia ? Hypertension ? Morbid obesity ([facility]) 05/21/2018 ? Recurrent UTI 02/03/2018 ? Sepsis due to gram-negative UTI ([facility]) 12/11/2017 ? Sleep apnea ? Type [...] Diabetes Mot (more content not included)... Normal [facility] Glucose,Bedsideon 09-30-2020 Glucose [Mass/Vol] 159 mg/dL High 70-100 [facility] [email or web address] [facility] Comment on above: Result Comment: Test performed by glucose meter. Results may be 10%-15% lower than serum/plasma values. (CLIA ID [id number]) Performed By: #### A DDON #### [facility] [address] [place] [address] Glucose [Mass/Vol] 118 mg/dL High 70-100 [facility] [email or web address] [facility] Comment on above: Result Comment: Test performed by glucose meter. Results may be 10%-15% lower than serum/plasma values. (CLIA ID [id number]) Performed By: #### B GLU #### [facility] [address] [place] [address] Glucose [Mass/Vol] 171 mg/dL High 70-100 [facility] Comment on above: Result Comment: Test performed by glucose meter. Results may be 10%-15% lower than serum/plasma values. (CLIA ID [id number]) Performed By: #### B GLU #### [facility] [address] [place] [address] Hemoglobin A1Con 09-30-2020 Glucose [Mass/Vol] 131 mg/dL Normal [facility] Comment on above: Performed By: #### B GLU #### [facility] [address] [place] [address] HbA1c (Bld) [Mass fraction] 6.2 % Abnormal [facility] Comment on above: Result Comment: Norm al less than 5.7% Prediabetes 5.7% to 6.4% Diabetes 6.5% or higher --HgbA1C levels may not be accurate in patients who have renal disease, received recent blood transfusions, are anemic, or who have dyshemoglobinemia. Performed By: #### B GLU #### [facility] [address] [place] [address] Hemogram w/ Autodiffon 09-30 Abs Baso Cnt 0.0 10*3/uL Normal 0.0-0.2 [facility] Comment on above: Performed By: #### B GLU #### [facility] [address] [place] [address] Abs Neutrophile Cnt 5.9 10*3/uL Normal 1.8-7.0 [facility] Comment on above: Performed By: #### B GLU #### [facility] [address] [place] [address] Basophils/100 WBC (Bld) 0.5 % Normal 0.0-2.0 [facility] Comment on above: Performed By: #### B GLU #### [facility] [address] [place] [address] Eosinophils (Bld) [#/Vol] 0.4 10*3/uL Normal 0.0-0.5 [facility] Comment on above: Performed By: #### B GLU #### [facility] [address] [place] [address] Eosinophils/100 WBC (Bld) 4.7 % Normal 1.0-6.0 [facility] Comment on above: Performed By: #### B GLU #### [facility] [address] [place] [address] Erythrocyte distribution width (RBC) [Ratio] 12.2 % Normal 11.5-14.5 [facility] Comment on above: Performed By: #### B GLU #### [facility] [address] [place] [address] Granulocytes/100 WBC (Bld) 74.9 % Normal 40.0-80.0 [facility] Comment on above: Performed By: #### B GLU #### [facility] [address] [place] [address] Hematocrit (Bld) [Volume fraction] 44.2 % Normal 40.0-52.0 [facility] Comment on above: Performed By: #### B GLU #### [facility] [address] [place] [address] Hemoglobin (Bld) [Mass/Vol] 15.4 g/dL Normal 13.0-18.0 [facility] Comment on above: Performed By: #### B GLU #### [facility] [address] [place] [address] Lymphocytes (Bld) [#/Vol] 1.2 10*3/uL Normal 1.0-4.3 [facility] Comment on above: Performed By: #### B GLU #### [facility] [address] [place] [address] Lymphocytes/100 WBC (Bld) 14.9 % Low 20.0-40.0 [facility] Comment on above: Performed By: #### B GLU #### [facility] [address] [place] [address] MCH (RBC) [Entitic mass] 31.2 pg Normal 26.0-34.0 [facility] Comment on above: Performed By: #### B GLU #### [facility] [address] [place] [address] MCHC 34.9 % Normal 32.0-36.0 [facility] Comment on above: Performed By: #### B GLU #### [facility] [address] [place] [address] MCV (RBC) [Entitic vol] 89.5 fL Normal 80.0-98.0 [facility] Comment on above: Performed By: #### B GLU #### [facility] [address] [place] [address] Monocytes (Bld) [#/Vol] 0.4 10*3/uL Normal 0.0-0.8 [facility] Comment on above: Performed By: #### B GLU #### [facility] [address] [place] [address] Monocytes/100 WBC (Bld) 5.0 % Normal 2.0-10.0 [facility] Comment on above: Performed By: #### B GLU #### [facility] [address] [place] [address] Platelet mean volume (Bld) [Entitic vol] 6.7 fL Low 7.4-10.4 [facility] Comment on above: Performed By: #### B GLU #### [facility] [address] [place] [address] Platelets (Bld) [#/Vol] 170 10*3/uL Normal 140-440 [facility] Comment on above: Performed By: #### B GLU #### [facility] [address] [place] [address] RBC (Bld) [#/Vol] 4.94 10*6/uL Normal 4.40-5.90 [facility] Comment on above: Performed By: #### B GLU #### [facility] [address] [place] [address] WBC (Bld) [#/Vol] 8.0 10*3/uL Normal 3.6-10.7 [facility] Comment on above: Performed By: #### B GLU #### [facility] [address] [place] [address] Troponin Ion 09-30-2020 Troponin I.cardiac [Mass/Vol] ng/mL Normal 0.000-0.03 4 [facility] Comment on above: Result Comment: . Performed By: #### A DDON #### [facility] [address] [place] [address] Troponin I.cardiac [Mass/Vol] ng/mL Normal 0.000-0.03 4 [facility] Comment on above: Result Comment: . Performed By: #### B GLU #### [facility] [address] [place] [address] CNPNon 07-16-2020 CNPN Telephone ([facility]PRAD) -- SHOLA MARTINEZ ( ) 1950 M Date Time Provider Department 07/16/20 ESTELA LAU VIDAL During your visit today, we recorded the [...] Status:Closed by ESTELA LAU PA-C on 07/16/[address] [facility] [address] Cervical Spine WO Contras ton 02-11-2020 Patient Name: SHOLA URBINA ND ---CT--- Exam Date/Time 02/11/2020 21:46:[address] Spine Cervical w/o Contrast Ordering Physician CAESAR SHELLEY AMY L Accession Number [id number] CPT4 Codes 60913 () Reason For Exam FAll Report CT [...] MALAY Transcribed Date and Time: 02/11/2020 9:52 [employer], [place] [place] Incoming Radiology Results From [facility] - 02/11/2020 9:52 PM EST Patient Name: SHOLA MARTINEZ ---CT--- Exam Date/Time 02/11/2020 21:46:[address] Spine Cervical w/o Contrast Ordering Physician CAESAR SHELLEY AMY L Accession Number [id number] CPT4 Codes 57727 () Reason For Exam FAll Report CT [...] MALAY Transcribed Date and Time: 02/11/2020 9:52 [employer] CT Head WO Contraston 2019 Patient Name: SHOLA URBINA ND ---CT--- Exam Date/Time 02/11/2020 21:46:[address] Head or Brain w/o Contrast Ordering Physician CAESAR SHELLEY AMY L Accession Number [id number] CPT4 Codes 91174 () Reason For Exam Fall Report CT [...] MALAY Transcribed Date and Time: 02/11/2020 9:48 [employer] [place], [place] Incoming Radiology Results From [facility] - 02/11/2020 9:49 PM EST Patient Name: SHOLA MARTINEZ ---CT--- Exam Date/Time 02/11/2020 21:46:[address] Head or Brain w/o Contrast Ordering Physician CAESAR SHELLEY AMY L Accession Number [id number] CPT4 Codes 66505 () Reason For Exam Fall Report CT [...] MALAY Transcribed Date and Time: 02/11/2020 9:48 [employer] XR LUMBAR SPINE (2-3 VIEWS)o n 02-11-2020 Patient Name: SHOLA URBINA ND ---Diagnostic Radiology--- Exam Date/Time 02/11/2020 21:31:42 EST Exam CR Spine Lumbosacral 2 or 3 Views Ordering Physician CAESAR SHELLEY AMY L Accession Number [id number] CPT4 Codes 28180 () Reason For Exam Fall Report Lumbosacral spine three views HISTORY: Fall, pain No fracture or dislocation. Mild degenerative changes. IMPRESSION: No acute findings. Report Dictated on --- Final --- Dictating Physician: MD FARRAR MALAY Signed Date and Time: 02/11/2020 9:45 pm Signed by: MD FARRAR MALAY Transcribed Date and Time: 02/11/2020 9:46 [place], [place] [facility], [facility] Incoming Radiology Results From [facility] - 02/11/2020 9:46 PM EST Patient Name: SHOLA MARTINEZ ---Diagnostic Radiology--- Exam Date/Time 02/11/2020 21:31:42 EST Exam CR Spine Lumbosacral 2 or 3 Views Ordering Physician CAESAR SHELLEY AMY L Accession Number [id number] CPT4 Codes 79684 () Reason For Exam Fall Report Lumbosacral spine three views HISTORY: Fall, pain No fracture or dislocation. Mild degenerative changes. IMPRESSION: No acute findings. Report Dictated on --- Final --- Dictating Physician: MD FARRAR MALAY Signed Date and Time: 02/11/2020 9:45 pm Signed by: MD FARRAR MALAY Transcribed Date and Time: 02/11/2020 9:46 [place], [place] Basic Metabolic Panel w/ Ref steve to MGon 09-16-2019 Anion gap [Moles/Vol] 11 mmol/L [place], [place] Calcium [Mass/Vol] 8.3 mg/dL Low 8.4 - 10. 4 mg/dL [place] Chloride [Moles/Vol] 102 mmol/L 98 - 10 7 mmol/L [place] CO2 [Moles/Vol] 23 mmol/L 22 - 30 mmol/L [place] Creatinine [Mass/Vol] 0.72 mg/dL 0.52 - 1.25 mg/dL [place] EGFR IF NonAfrican [place] >90.0 >60 mL/min [place] Comment on above: KDIGO guidelines pro [...] MDRD (S/P/Bld) [Vol rate/Area] mL/min/{1.73_m2} >60 mL/min [place] Glucose [Mass/Vol] 142 mg/dL High 70 - 100 mg/dL [place] Interpretation and review of laboratory results Abnormal [place] Potassium [Moles/Vol] 4.0 mmol/L 3.5 - 5.1 mmol/L [place] Sodium [Moles/Vol] 136 mmol/L 135 - 145 mmol/L [place] Urea nitrogen [Mass/Vol] 8 mg/dL 7 - 20 mg/dL [place] Test Performed by [facility], [address], [place], [place] [address] [place], [place] CBCon 09-16-2019 Erythrocyte distribution width (RBC) [Ratio] 12.7 % 11.5 - 14.5 % [place] Hematocrit (Bld) [Volume fraction] 38.1 % Low 40 - 52 % [place] Hemoglobin (Bld) [Mass/Vol] 13.3 g/dL 13 - 18 g/dL [place] Interpretation and review of laboratory results Abnormal [place] MCH (RBC) [Entitic mass] 31.2 pg 26 - 34 pg [place] MCHC (RBC) [Mass/Vol] 34.9 % 32 - 36 % [place] MCV (RBC) [Entitic vol] 89.5 fL 80 - 98 fL [place], [place] Platelet mean volume (Bld) [Entitic vol] 6.5 fL Low 7.4 - 10.4 fL [place] Platelets (Bld) [#/Vol] 202 10*3/uL 140 - 440 10*3/uL [place] RBC (Bld) [#/Vol] 4.25 10*6/uL Low 4.4 - 5.9 10*6/uL [place] WBC (Bld) [#/Vol] 6.6 10*3/uL 3.6 - 10.7 10*3/uL [place] Test Performed by [facility], [address], [place], [place] [id number] [place] [address] POCT Glucoseon 09-16-2019 Glucose [Mass/Vol] 182 mg/dL High 70 - 100 mg/dL [place] Comment on above: Test performed by ucose meter. Results may be 10%-15% lower than serum/plasma values. (CLIA ID [id number]) Interpretation and review of laboratory results Abnormal [place] Test Performed by [facility], [address], [place], [place] [address] [place] Glucose [Mass/Vol] 258 mg/dL High 70 - 100 mg/dL [place] Comment on above: Test performed by gl ucose meter. Results may be 10%-15% lower than serum/plasma values. (CLIA ID [id number]) Interpretation and review of laboratory results Abnormal [place] Test Performed by [facility], [address], [place], [place] [address] [place] Glucose [Mass/Vol] 138 mg/dL High 70 - 100 mg/dL [place] Comment on above: Test performed by gl ucose meter. Results may be 10%-15% lower than serum/plasma values. (CLIA ID [id number]) Interpretation and review of laboratory results Abnormal [place] Test Performed by [facility], [address], [place], [place] [address] [place] Basic Metabolic Panel w/ Ref steve to MGon 09-15-2019 Anion gap [Moles/Vol] 10 mmol/L [place] Calcium [Mass/Vol] 8.2 mg/dL Low 8.4 - 10. 4 mg/dL [place] Chloride [Moles/Vol] 100 mmol/L 98 - 10 7 mmol/L [place] CO2 [Moles/Vol] 24 mmol/L 22 - 30 mmol/L [place] Creatinine [Mass/Vol] 0.71 mg/dL 0.52 - 1.25 mg/dL [place] EGFR IF NonAfrican [place] >90.0 >60 mL/min [place] Comment on above: KDIGO guidelines pro [...] MDRD (S/P/Bld) [Vol rate/Area] mL/min/{1.73_m2} >60 mL/min [place] Glucose [Mass/Vol] 136 mg/dL High 70 - 100 mg/dL [place] Interpretation and review of laboratory results Abnormal [place] Potassium [Moles/Vol] 3.9 mmol/L 3.5 - 5.1 mmol/L [place] Sodium [Moles/Vol] 133 mmol/L Low 135 - 145 mmol/L [place] Urea nitrogen [Mass/Vol] 7 mg/dL 7 - 20 mg/dL [place] Test Performed by [facility], [address], [place], [place] [address] [place] CBCon 09-15-2019 Erythrocyte distribution width (RBC) [Ratio] 12.7 % 11.5 - 14.5 % [place] Hematocrit (Bld) [Volume fraction] 37.4 % Low 40 - 52 % [place] Hemoglobin (Bld) [Mass/Vol] 13.0 g/dL 13 - 18 g/dL [place] Interpretation and review of laboratory results Abnormal [place] MCH (RBC) [Entitic mass] 31.2 pg 26 - 34 pg [place] MCHC (RBC) [Mass/Vol] 34.7 % 32 - 36 % [place] MCV (RBC) [Entitic vol] 89.9 fL 80 - 98 fL [place] Platelet mean volume (Bld) [Entitic vol] 6.4 fL Low 7.4 - 10.4 fL [place] Platelets (Bld) [#/Vol] 198 10*3/uL 140 - 440 10*3/uL [place] RBC (Bld) [#/Vol] 4.15 10*6/uL Low 4.4 - 5.9 10*6/uL [place] WBC (Bld) [#/Vol] 8.2 10*3/uL 3.6 - 10.7 10*3/uL [place] Test Performed by [facility], [address], [place], [place] [address] [place] COVID-19on 09-15-2019 SARS-CoV-2 Not Detected Expected Result: Not Detected _ Real-time, RT-PCR performed on the [employer] System by the [facility] Microbiology Service. Negative results do not preclude SARS-CoV-2 infection and should not be used as the sole basis for treatment or other patient management decisions. This assay was developed and its performance characteristics determined by the [facility] Microbiology Service. This test has been developed under an Emergency Use Authorization (EUA) granted by the FDA for the qualitative detection of SARS-CoV-2 nucleic acid (validation review pending). [facility] [place], [place] Test Performed by [facility], [address] [place] [address] Specimen Source Comment:Nasopharyngeal Swab [facility] [place] Otheron 09-15-2019 Interpretation and review of laboratory results Abnormal [facility] [place] Test Performed by [facility], [address], [place], [place] [address] [facility] [place] POCT Glucoseon 09-15-2019 Glucose [Mass/Vol] 209 mg/dL High 70 - 100 mg/dL [facility] [place] Comment on above: Test performed by gl ucose meter. Results may be 10%-15% lower than serum/plasma values. (CLIA ID [id number]) Interpretation and review of laboratory results Abnormal [facility] [place] Test Performed by [facility], [address], [place], [place] [address] [facility] [place] Glucose [Mass/Vol] 140 mg/dL High 70 - 100 mg/dL [facility] [place] Comment on above: Test performed by gl ucose meter. Results may be 10%-15% lower than serum/plasma values. (CLIA ID [id number]) Interpretation and review of laboratory results Abnormal [facility] [place] Test Performed by [facility], [address], [place], [place] [address] [facility] [place] Glucose [Mass/Vol] 213 mg/dL High 70 - 100 mg/dL [facility] [place] Comment on above: Test performed by gl ucose meter. Results may be 10%-15% lower than serum/plasma values. (CLIA ID [id number]) Glucose [Mass/Vol] 145 mg/dL High 70 - 100 mg/dL [place] Comment on above: Test performed by ucose meter. Results may be 10%-15% lower than serum/plasma values. (CLIA ID [id number]) Glucose [Mass/Vol] 163 mg/dL High 70 - 100 mg/dL [place] Comment on above: Test performed by gl ucose meter. Results may be 10%-15% lower than serum/plasma values. (CLIA ID [id number]) Interpretation and review of laboratory results Abnormal [place] Test Performed by [facility], [address], [place], [place] [address] [place] Basic Metabolic Panel w/ Ref steve to MGon 09-14-2019 Anion gap [Moles/Vol] 12 mmol/L [place] Calcium [Mass/Vol] 7.9 mg/dL Low 8.4 - 10. 4 mg/dL [place] Chloride [Moles/Vol] 100 mmol/L 98 - 10 7 mmol/L [place] CO2 [Moles/Vol] 22 mmol/L 22 - 30 mmol/L [place] Creatinine [Mass/Vol] 0.72 mg/dL 0.52 - 1.25 mg/dL [place] EGFR IF NonAfrican Croatian >90.0 >60 mL/min [place], [place] Comment on above: KDIGO guidelines pro [...] MDRD (S/P/Bld) [Vol rate/Area] mL/min/{1.73_m2} >60 mL/min [place] Glucose [Mass/Vol] 139 mg/dL High 70 - 100 mg/dL [place] Interpretation and review of laboratory results Abnormal [place] Potassium [Moles/Vol] 3.8 mmol/L 3.5 - 5.1 mmol/L [place] Sodium [Moles/Vol] 133 mmol/L Low 135 - 145 mmol/L [place], [place] Urea nitrogen [Mass/Vol] 8 mg/dL 7 - 20 mg/dL [place] Test Performed by [facility], [address], [place], [place] [id number] [place] [address] CBCon 09-14-2019 Erythrocyte distribution width (RBC) [Ratio] 12.8 % 11.5 - 14.5 % [place] Hematocrit (Bld) [Volume fraction] 37.8 % Low 40 - 52 % [place] Hemoglobin (Bld) [Mass/Vol] 13.1 g/dL 13 - 18 g/dL [place] Interpretation and review of laboratory results Abnormal [place] MCH (RBC) [Entitic mass] 31.2 pg 26 - 34 pg [place] MCHC (RBC) [Mass/Vol] 34.6 % 32 - 36 % [place] MCV (RBC) [Entitic vol] 90.1 fL 80 - 98 fL [place], [place] Platelet mean volume (Bld) [Entitic vol] 6.4 fL Low 7.4 - 10.4 fL [place], [place] Platelets (Bld) [#/Vol] 173 10*3/uL 140 - 440 10*3/uL [place] RBC (Bld) [#/Vol] 4.19 10*6/uL Low 4.4 - 5.9 10*6/uL [place] WBC (Bld) [#/Vol] 9.2 10*3/uL 3.6 - 10.7 10*3/uL [facility] [place] Test Performed by [facility], [address] [place], [place] [address] [facility] [place] Culture, Urineon 09-14-2019 Bacteria identified Cx Nom (U) Enterococcus faecalis Abnormal [facility] [place] Bacteria identified Cx Nom (U) >100,000 CFU/ml [facility] [place] Interpretation and review of laboratory results Abnormal [facility] [place] Test Performed by [facility], [address] [place] [address] Specimen Source Comment:Urine, clean catch [facility] [place] POCT Glucoseon 09-14-2019 Glucose [Mass/Vol] 196 mg/dL High 70 - 100 mg/dL [facility] [place] Comment on above: Test performed by gl ucose meter. Results may be 10%-15% lower than serum/plasma values. (CLIA ID [id number]) Interpretation and review of laboratory results Abnormal [facility] [place] Test Performed by [facility], [address], [place], [place] [address] [facility] [place] Glucose [Mass/Vol] 134 mg/dL High 70 - 100 mg/dL [facility] [place] Comment on above: Test performed by gl ucose meter. Results may be 10%-15% lower than serum/plasma values. (CLIA ID [id number]) Interpretation and review of laboratory results Abnormal [facility] [place] Test Performed by [facility], [address], [place], [place] [address] [facility] [place] Glucose [Mass/Vol] 143 mg/dL High 70 - 100 mg/dL [facility] [place] Comment on above: Test performed by gl ucose meter. Results may be 10%-15% lower than serum/plasma values. (CLIA ID [id number]) Interpretation and review of laboratory results Abnormal [facility] [place] Test Performed by [facility], [address] [place], [place] [address] [facility] [place] Glucose [Mass/Vol] 144 mg/dL High 70 - 100 mg/dL [facility] [place] Comment on above: Test performed by gl ucose meter. Results may be 10%-15% lower than serum/plasma values. (CLIA ID [id number]) Interpretation and review of laboratory results Abnormal [facility] [employer] [place] Test Performed by [facility], [address] [place], [place] [address] [place], [place] T4, Freeon 09-14-2019 Free T4 [Mass/Vol] 1.26 ng/dL 0.78 - 2.19 ng/dL [place] Test Performed by [facility], [address], [place], [place] [address] [place] TSH without Reflexon 020 TSH Qn 1.661 u[IU]/mL 0.465 - 4.68 u[IU]/mL [place] Test Performed by [facility], [address], [place], [place] [id number] [place] [address] Vitamin D 25 Hydroxyon 09-13 Interpretation and review of laboratory results Abnormal [place], [place] Vit D, 25-Hydroxy 19 ng/mL Low 30 - 100 ng/mL [place], [place] Comment on above: Therapy is based on measurement of Total 25-OHD with the following classification levels: Less than 20 ng/mL: Indicative of Vit D deficiency 20-30 ng/mL: Suggests Vit D insufficiency Optimal: Greater than or equal to 30 ng/mL Test performed by [employer], measuring Total Vitamin D, not individual fractions. Test Performed by [facility], [address] [place], [place] [id number] [place] [address] Basic Metabolic Panel w/ Ref steve to MGon 09-13-2019 Anion gap [Moles/Vol] 13 mmol/L [facility] [email or web address] Calcium [Mass/Vol] 7.3 mg/dL Low 8.4 - 10. 4 mg/dL [place] Chloride [Moles/Vol] 103 mmol/L 98 - 10 7 mmol/L [place] CO2 [Moles/Vol] 19 mmol/L Low 22 - 30 mmol/L [place] Creatinine [Mass/Vol] 0.7 mg/dL 0.52 - 1.25 mg/dL [place] EGFR IF NonAfrican Croatian >90.0 >60 mL/min [place] Comment on above: KDIGO guidelines pro [...] MDRD (S/P/Bld) [Vol rate/Area] mL/min/{1.73_m2} >60 mL/min [place] Glucose [Mass/Vol] 143 mg/dL High 70 - 100 mg/dL [place] Interpretation and review of laboratory results Abnormal [place] Potassium [Moles/Vol] 3.5 mmol/L 3.5 - 5.1 mmol/L [place] Sodium [Moles/Vol] 134 mmol/L Low 135 - 145 mmol/L [place], [place] Urea nitrogen [Mass/Vol] 10 mg/dL 7 - 20 mg/dL [place] Test Performed by [facility], [address] [place], [place] [id number] [place] [address] CBCon 09-13-2019 Erythrocyte distribution width (RBC) [Ratio] 12.9 % 11.5 - 14.5 % [place] Hematocrit (Bld) [Volume fraction] 34.7 % Low 40 - 52 % [place] Hemoglobin (Bld) [Mass/Vol] 12.0 g/dL Low 13 - 18 g/dL [place] Interpretation and review of laboratory results Abnormal [place] MCH (RBC) [Entitic mass] 31.6 pg 26 - 34 pg [place] MCHC (RBC) [Mass/Vol] 34.6 % 32 - 36 % [place], [place] MCV (RBC) [Entitic vol] 91.2 fL 80 - 98 fL [place] Platelet mean volume (Bld) [Entitic vol] 7.1 fL Low 7.4 - 10.4 fL [place], [place] Platelets (Bld) [#/Vol] 149 10*3/uL 140 - 440 10*3/uL [place] RBC (Bld) [#/Vol] 3.80 10*6/uL Low 4.4 - 5.9 10*6/uL [place] WBC (Bld) [#/Vol] 10.4 10*3/uL 3.6 - 10.7 10*3/uL [place] Test Performed by [facility], [address], [place] [address] [place] [address] EKG 12 Leadon 09-13-2019 [facility] Test Date: 2019-09-12 Pat Name: Shola Martinez Department: 01 Room: 456 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1950 Requested By: MOJGAN IVY Order Number: [id number] Reading MD: Pacheco Arriaga Measurements Intervals [place] Rate: 95 P: 57 MA: 172 QRS: -67 QRSD: 118 T: 29 QT: 356 QTc: 448 Interpretive Statements SINUS RHYTHM CONSIDER LEFT ATRIAL ABNORMALITY INFERIOR INFARCT, OLD Electronically Signed On 09-13-2019 13:07:41 EDT by Pacheco Arriaga [place], [place] Mark, [facility] Incoming Cardiology Results From [facility] - 09/13/2019 1:08 PM EDT [facility] Test Date: 2019-09-12 Pat Name: Shola Martinez Department: 01 Room: 456 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 [place], [place] [address] [facility] [place] POCT Glucoseon 09-13-2019 Glucose [Mass/Vol] 193 mg/dL High 70 - 100 mg/dL [facility] [place] Comment on above: Test performed by gl ucose meter. Results may be 10%-15% lower than serum/plasma values. (CLIA ID [id number]) Interpretation and review of laboratory results Abnormal [facility] [place] Test Performed by [facility], [address] [place] [address] [facility] [place] Glucose [Mass/Vol] 134 mg/dL High 70 - 100 mg/dL [facility] [place] Comment on above: Test performed by gl ucose meter. Results may be 10%-15% lower than serum/plasma values. (CLIA ID [id number]) Interpretation and review of laboratory results Abnormal [facility] [place] Test Performed by [facility], [address] [place] [address] [facility] [place] Glucose [Mass/Vol] 175 mg/dL High 70 - 100 mg/dL [facility] [place] Comment on above: Test performed by gl ucose meter. Results may be 10%-15% lower than serum/plasma values. (CLIA ID [id number]) Interpretation and review of laboratory results Abnormal [facility] [place] Test Performed by [facility], [address] [place], [place] [address] [facility] [place] Glucose [Mass/Vol] 190 mg/dL High 70 - 100 mg/dL [facility] [place] Comment on above: Test performed by gl ucose meter. Results may be 10%-15% lower than serum/plasma values. (CLIA ID [id number]) Interpretation and review of laboratory results Abnormal [facility] [place] Test Performed by [facility], [address], [place], [place] [address] [place], [place] Brain Natriuretic Peptideon 09-12-2019 Interpretation and review of laboratory results Abnormal [place] Natriuretic peptide B (Bld) [Mass/Vol] 344 pg/mL High 0 - 125 pg/mL [place], [place] CKon 09-12-2019 Total CK 242 U/L High 30 - 170 U/L [place] COVID-19on 09-12-2019 SARS-CoV-2 Not Detected Expected Result: Not Detected _ Real-time, RT-PCR performed on the [email or web address] by the [facility] Microbiology Service. Negative results do not preclude SARS-CoV-2 infection and should not be used as the sole basis for treatment or other patient management decisions. This assay was developed by [employer] and distributed under an Emergency Use Authorization (EUA) granted by the FDA for the qualitative detection of SARS-CoV-2 nucleic acid. [place], [place] Test Performed by [address] [address] Specimen Source Comment:Nasopharyngeal Swab [place], [place] Comprehensive Metabolic Pane vineet 09-12-2019 Albumin [Mass/Vol] 4.4 g/dL 3.5 - 5 g/dL [place] ALP [Catalytic activity/Vol] 77 U/L 38 - 126 U/L [place] ALT [Catalytic activity/Vol] 25 U/L 0 - 49 U/L [place] Comment on above: The ALT test is perf ormed by an updated assay method. Please note that the reference intervals have been changed and are now sex specific. Anion gap [Moles/Vol] 17 mmol/L [place] AST [Catalytic activity/Vol] 32 U/L 15 - 46 U/L [place] Bilirubin Ql (U) 2.5 mg/dL High 0.2 - 1.3 mg/dL [place], [place] Calcium [Mass/Vol] 9.0 mg/dL 8.4 - 10. 4 mg/dL [place] Chloride [Moles/Vol] 96 mmol/L Low 98 - 10 7 mmol/L [place] CO2 [Moles/Vol] 22 mmol/L 22 - 30 mmol/L [place] Creatinine [Mass/Vol] 0.83 mg/dL 0.52 - 1.25 mg/dL [place] EGFR IF NonAfrican Croatian 89.1 mL/min >60 [place], [place] Comment on above: KDIGO guidelines pro [...] MDRD (S/P/Bld) [Vol rate/Area] mL/min/{1.73_m2} >60 mL/min [place] Glucose [Mass/Vol] 179 mg/dL High 70 - 100 mg/dL [place], [place] Potassium [Moles/Vol] 4.0 mmol/L 3.5 - 5.1 mmol/L [place] Protein [Mass/Vol] 7.6 g/dL 6.3 - 8.2 g/dL [place] Sodium [Moles/Vol] 135 mmol/L 135 - 145 mmol/L [place] Urea nitrogen [Mass/Vol] 11 mg/dL 7 - 20 mg/dL [place] D-Dimer, Quantitativeon 08-31 D-Dimer, Quant 0.53 mg/L High 0 - 0.5 mg/L [place], [place] Comment on above: [employer] D-Dimer va lues of <0.50 mg/L FEU can be used in combination with a pre-test probability model (e.g. Well's) to exclude pulmonary embolism (PE) disease, as well as an aid in the diagnosis of deep vein thrombosis (DVT). Interpretation and review of laboratory results Abnormal [place] Test Performed by [facility], [address], [place], [place] [address] [place] Hemogram (CBC) w/Auto Diffon 09-12-2019 Absolute Baso # 0.0 10*3/uL 0 - 0.2 10*3/uL [place] Absolute Neut # 11.2 10*3/uL High 1.8 - 7 10*3/uL [place], [place] Basophils/100 WBC (Bld) 0.3 % 0 - 2 % [place], [place] Eosinophils (Bld) [#/Vol] 0.0 10*3/uL 0 - 0.5 10*3/uL [place], [place] Eosinophils/100 WBC (Bld) 0.2 % Low 1 - 6 % [place] Erythrocyte distribution width (RBC) [Ratio] 12.6 % 11.5 - 14.5 % [place], [place] Granulocytes/100 WBC (Bld) 88.3 % High 40 - 80 % [place] Hematocrit (Bld) [Volume fraction] 41.5 % 40 - 52 % [place] Hemoglobin (Bld) [Mass/Vol] 14.6 g/dL 13 - 18 g/dL [place] Interpretation and review of laboratory results Abnormal [place] Lymphocytes (Bld) [#/Vol] 0.8 10*3/uL Low 1 - 4.3 10*3/uL [place] Lymphocytes/100 WBC (Bld) 6.5 % Low 20 - 40 % [place] MCH (RBC) [Entitic mass] 31.5 pg 26 - 34 pg [place] MCHC (RBC) [Mass/Vol] 35.1 % 32 - 36 % [place] MCV (RBC) [Entitic vol] 89.7 fL 80 - 98 fL [place], [place] Monocytes (Bld) [#/Vol] 0.6 10*3/uL 0 - 0.8 10*3/uL [place], [place] Monocytes/100 WBC (Bld) 4.7 % 2 - 10 % [place] Platelet mean volume (Bld) [Entitic vol] 7.5 fL 7.4 - 10.4 fL [place], [place] Platelets (Bld) [#/Vol] 192 10*3/uL 140 - 440 10*3/uL [place] RBC (Bld) [#/Vol] 4.63 10*6/uL 4.4 - 5.9 10*6/uL [place] WBC (Bld) [#/Vol] 12.7 10*3/uL High 3.6 - 10.7 10*3/uL [place] Test Performed by [facility], [address] [place], [place] [address] [place] [address] Otheron 09-12-2019 Test Performed by [facility], [address] [place], [place] [address] [place] [address] Interpretation and review of laboratory results Abnormal [place] Test Performed by [facility], [address] [place], [place] [address] [place] [address] POCT Glucoseon 09-12-2019 Glucose [Mass/Vol] 166 mg/dL High 70 - 100 mg/dL [place] Comment on above: Test performed by gl ucose meter. Results may be 10%-15% lower than serum/plasma values. (CLIA ID [id number]) Interpretation and review of laboratory results Abnormal [place] Test Performed by [facility], [address] [place], [place] [id number] [place] [address] Troponin x1on 09-12-2019 Troponin I.cardiac [Mass/Vol] ng/mL 0 - 0.034 ng/mL [place] Comment on above: . Urinalysison 09-12-2019 Appearance (U) Clear Clear NA [place] Comment on above: . Bacteria, UA Few Abnormal Negative /[HPF] [place], [place] Comment on above: . Bilirubin Urine Negative Negative mg/dL [place] Comment on above: . Color (U) Yellow Lt. Yellow NA [place], [place] Comment on above: . Glucose, Ur Normal Normal (<70) mg/dL [place], [place] Comment on above: . Interpretation and review of laboratory results Abnormal [place] Ketones Ql (U) 10 mg/dL Abnormal Negative [place], [place] Comment on above: . LEUKOCYTES, UA 250 Abnormal Negative [place]/uL [place], [place] Comment on above: . Mucous Threads Few Negative /[LPF] [place], [place] Comment on above: . Nitrite, Urine Negative Negative NA [place], [place] Comment on above: . Occult Blood,Urine 0.06 mg/dL Abnormal Negative [place], [place] Comment on above: . pH (U) 5.5 [pH] [place], [place] Comment on above: . Protein (U) [Mass/Vol] 20 mg/dL Abnormal Negative [place] Comment on above: . RBC (U) [#/Vol] 3-5 Abnormal 0 - 2 /[HPF] [place], [place] Comment on above: . Specific [place], Urine 1.026 [place] Comment on above: . Squam Epithel, UA 0-2 3 - 5 /[HPF] [place], [place] Comment on above: . Urobilinogen, Urine Normal Normal (0-1) mg/dL [place] Comment on above: . WBC, UA 6-10 Abnormal 0 - 5 /[HPF] [place], [place] Comment on above: . Test Performed by [facility], [address] [place], [place] [address] [place] Cervical Spine WO Contras ton 09-02-2019 Patient Name: SHOLA URBINA ND ---CT--- Exam Date/Time 09/02/2019 20:57:[address] Spine Cervical w/o Contrast Ordering Physician TYLER ANDERSON Accession Number [id number] CPT4 Codes 83229 () Reason For Exam fall Report CT [...] R Transcribed Date and Time: 09/02/2019 9:11 [place], [place], [facility] Incoming Radiology Results From [facility] - 09/02/2019 9:11 PM EDT Patient Name: SHOLA MARTINEZ ---CT--- Exam Date/Time 09/02/2019 20:57:[address] Spine Cervical w/o Contrast Ordering Physician TYLER ANDERSON Accession Number [id number] CPT4 Codes 09811 () Reason For Exam fall Report CT [...] 09/02/2019 9:11 [facility], [place] CT Facial Bones WO Contrasto n 09-02-2019 Patient Name: SHOLA URBINA ND ---CT--- Exam Date/Time 09/02/2019 20:35:[address] Maxillofacial w/o Contrast Ordering Physician TYLER ANDERSON Accession Number [id number] CPT4 Codes 76153 () Reason For Exam fall Report MAXILLOFACIAL [...] R Transcribed Date and Time: 09/02/2019 9:16 [place] Incoming Radiology Results From [facility] - 09/02/2019 9:16 PM EDT Patient Name: SHOLA MARTINEZ ---CT--- Exam Date/Time 09/02/2019 20:35:[address] Maxillofacial w/o Contrast Ordering Physician TYLER ANDERSON Accession Number [id number] CPT4 Codes 74515 () Reason For Exam fall Report MAXILLOFACIAL [...] R Transcribed Date and Time: 09/02/2019 9:16 [facility], [place] CT Head WO Contraston 2019 Patient Name: SHOLA URBINA ND ---CT--- Exam Date/Time 09/02/2019 20:35:[address] Head or Brain w/o Contrast Ordering Physician TYLER ANDERSON Accession Number [id number] CPT4 Codes 51772 () Reason For Exam fall Report CT [...] nasal bone, not fully included in the aawno-jd-omqg. No calvarial fracture seen. There is a [...] bone fracture, not fully included in the rcsxe-ve-kiuc. A dedicated CT of the facial bones was also performed, reported separately. Report Dictated on --- Final --- Dictating Physician: MD MULLIGAN JONATHAN R Signed Date and Time: 09/02/2019 9:06 pm Signed by: MD MULLIGAN JONATHAN R Transcribed Date and Time: 09/02/2019 9:07 [place], [facility] Incoming Radiology Results From [facility] - 09/02/2019 9:07 PM EDT Patient Name: SHOLA MARTINEZ ---CT--- Exam Date/Time 09/02/2019 20:35:[address] Head or Brain w/o Contrast Ordering Physician TYLER ANDERSON Accession Number [id number] CPT4 Codes 24729 () Reason For Exam fall Report CT [...] nasal bone, not fully included in the nzncc-[id number]-aduc. No calvarial fracture seen. There is a [...] bone fracture, not fully included in the nxyqb-aj-ucad. A dedicated CT of the facial bones was also performed, reported separately. Report Dictated on --- Final --- Dictating Physician: MD MULLIGAN JONATHAN R Signed Date and Time: 09/02/2019 9:06 pm Signed by: MD MULLIGAN JONATHAN R Transcribed Date and Time: 09/02/2019 9:07 [place], [place] CBCon 12-04-2018 Erythrocyte distribution width (RBC) [Ratio] 12.4 % 11.5 - 14.5 % [place] Hematocrit (Bld) [Volume fraction] 37.2 % Low 40 - 52 % [place] Hemoglobin (Bld) [Mass/Vol] 13.3 g/dL 13 - 18 g/dL [place] Interpretation and review of laboratory results Abnormal [place] MCH (RBC) [Entitic mass] 31.1 pg 26 - 34 pg [place] MCHC (RBC) [Mass/Vol] 35.8 % 32 - 36 % [place] MCV (RBC) [Entitic vol] 86.9 fL 80 - 98 fL [place] Platelet mean volume (Bld) [Entitic vol] 6.4 fL Low 7.4 - 10.4 fL [place] Platelets (Bld) [#/Vol] 135 10*3/uL Low 140 - 440 10*3/uL [place] RBC (Bld) [#/Vol] 4.28 10*6/uL Low 4.4 - 5.9 10*6/uL [place] WBC (Bld) [#/Vol] 5.2 10*3/uL 3.6 - 10.7 10*3/uL [place] Test Performed by [facility], [address] [place], [place] [address] [place] [address] Comprehensive Metabolic Pane vineet 12-04-2018 Albumin [Mass/Vol] 3.6 g/dL 3.5 - 5 g/dL [place] ALP [Catalytic activity/Vol] 65 U/L 38 - 126 U/L [place] ALT [Catalytic activity/Vol] 37 U/L 13 - 69 U/L [place] Anion gap [Moles/Vol] 7 mmol/L [place] AST [Catalytic activity/Vol] 44 U/L 15 - 46 U/L [place] Bilirubin Ql (U) 1.8 mg/dL High 0.2 - 1.3 mg/dL [place], [place] Calcium [Mass/Vol] 8.6 mg/dL 8.4 - 10. 4 mg/dL [place] Chloride [Moles/Vol] 97 mmol/L Low 98 - 10 7 mmol/L [place] CO2 [Moles/Vol] 28 mmol/L 22 - 30 mmol/L [place] Creatinine [Mass/Vol] 0.72 mg/dL 0.52 - 1.25 mg/dL [place] EGFR IF NonAfrican Croatian >60.0 >60 mL/min [place] Comment on above: Source- MDRD equatio n with creatinine calibration to IDMS(NKDEP) eGFR not recommended for drug dose adjustment GFR/1.73 sq M predicted among blacks MDRD (S/P/Bld) [Vol rate/Area] mL/min/{1.73_m2} >60 mL/min [place] Glucose [Mass/Vol] 155 mg/dL High 70 - 100 mg/dL [place] Interpretation and review of laboratory results Abnormal [place] Potassium [Moles/Vol] 4.1 mmol/L 3.5 - 5.1 mmol/L [place] Protein [Mass/Vol] 6.7 g/dL 6.3 - 8.2 g/dL [place] Sodium [Moles/Vol] 131 mmol/L Low 135 - 145 mmol/L [place] Urea nitrogen [Mass/Vol] 8 mg/dL 7 - 20 mg/dL [place] Test Performed by [facility], [address] [place], [place] [address] [place], [place] POCT Glucoseon 12-04-2018 Glucose [Mass/Vol] 201 mg/dL High 70 - 100 mg/dL [place], [place] Comment on above: Test performed by gl ucose meter. Results may be 10%-15% lower than serum/plasma values. (CLIA ID [id number]) Interpretation and review of laboratory results Abnormal [place] Test Performed by [facility], [address] [place], [place] [address] [place] Glucose [Mass/Vol] 167 mg/dL High 70 - 100 mg/dL [place] Comment on above: Test performed by gl ucose meter. Results may be 10%-15% lower than serum/plasma values. (CLIA ID [id number]) Interpretation and review of laboratory results Abnormal [place] Test Performed by [facility], [address], [place], [place] [address] [place] Basic Metabolic Panelon Anion gap [Moles/Vol] 7 mmol/L [place] Calcium [Mass/Vol] 8.1 mg/dL Low 8.4 - 10. 4 mg/dL [place] Chloride [Moles/Vol] 97 mmol/L Low 98 - 10 7 mmol/L [place] CO2 [Moles/Vol] 26 mmol/L 22 - 30 mmol/L [place] Creatinine [Mass/Vol] 0.75 mg/dL 0.52 - 1.25 mg/dL [place] EGFR IF NonAfrican Croatian >60.0 >60 mL/min [place] Comment on above: Source- MDRD equatio n with creatinine calibration to IDMS(NKDEP) eGFR not recommended for drug dose adjustment GFR/1.73 sq M predicted among blacks MDRD (S/P/Bld) [Vol rate/Area] mL/min/{1.73_m2} >60 mL/min [place] Glucose [Mass/Vol] 156 mg/dL High 70 - 100 mg/dL [place] Potassium [Moles/Vol] 4.0 mmol/L 3.5 - 5.1 mmol/L [place] Sodium [Moles/Vol] 130 mmol/L Low 135 - 145 mmol/L [place] Urea nitrogen [Mass/Vol] 9 mg/dL 7 - 20 mg/dL [place] CBCon 12-03-2018 Erythrocyte distribution width (RBC) [Ratio] 12.4 % 11.5 - 14.5 % [place] Hematocrit (Bld) [Volume fraction] 36.2 % Low 40 - 52 % [place] Hemoglobin (Bld) [Mass/Vol] 12.9 g/dL Low 13 - 18 g/dL [place] MCH (RBC) [Entitic mass] 31.4 pg 26 - 34 pg [place] MCHC (RBC) [Mass/Vol] 35.6 % 32 - 36 % [place] MCV (RBC) [Entitic vol] 88.3 fL 80 - 98 fL [place] Platelet mean volume (Bld) [Entitic vol] 6.9 fL Low 7.4 - 10.4 fL [place], [place] Platelets (Bld) [#/Vol] 112 10*3/uL Low 140 - 440 10*3/uL [place] RBC (Bld) [#/Vol] 4.10 10*6/uL Low 4.4 - 5.9 10*6/uL [place] WBC (Bld) [#/Vol] 5.7 10*3/uL 3.6 - 10.7 10*3/uL [place] Gastrointestinal Panel by MARIE Cazares 12-03-2018 Gastrointestinal PCR Panel NEGATIVE: No targets were detected by the [employer] Gastrointestinal PCR Panel. The XO1Fire Gastrointestinal PCR Panel detects the following targets: [...] the assay can be ordered separately with [facility] ([id number]). [place] Test Performed by [facility], [address] [place] [address] Specimen Source Comment:Stool [place], [place] Otheron 12-03-2018 Interpretation and review of laboratory results Abnormal [place] Test Performed by [facility], [address], [place], [place] [address] [place] POCT Glucoseon 12-03-2018 Glucose [Mass/Vol] 225 mg/dL High 70 - 100 mg/dL [place] Comment on above: Test performed by ucose meter. Results may be 10%-15% lower than serum/plasma values. (CLIA ID [id number]) Interpretation and review of laboratory results Abnormal [facility] Test Performed by [facility], [address] [place], [place] [address] [facility] [email or web address] Glucose [Mass/Vol] 189 mg/dL High 70 - 100 mg/dL [facility] Comment on above: Test performed by gl ucose meter. Results may be 10%-15% lower than serum/plasma values. (CLIA ID [id number]) Interpretation and review of laboratory results Abnormal [facility] Test Performed by [facility], [address] [place], [place] [address] [facility] [email or web address] Glucose [Mass/Vol] 198 mg/dL High 70 - 100 mg/dL [facility] [employer] [place] Comment on above: Test performed by gl ucose meter. Results may be 10%-15% lower than serum/plasma values. (CLIA ID [id number]) Interpretation and review of laboratory results Abnormal [employer] Test Performed by [facility], [address] [place], [place] [address] [facility] [employer] [place] Glucose [Mass/Vol] 162 mg/dL High 70 - 100 mg/dL [facility] [employer] [place] Comment on above: Test performed by gl ucose meter. Results may be 10%-15% lower than serum/plasma values. (CLIA ID [id number]) Interpretation and review of laboratory results Abnormal [employer] Test Performed by [facility], [address] [place], [place] [address] [facility] [employer] [place] Basic Metabolic Panelon 09-0 Anion gap [Moles/Vol] 7 mmol/L [facility] [employer] Calcium [Mass/Vol] 7.9 mg/dL Low 8.4 - 10. 4 mg/dL [facility] [employer] Chloride [Moles/Vol] 96 mmol/L Low 98 - 10 7 mmol/L [facility] [employer] CO2 [Moles/Vol] 27 mmol/L 22 - 30 mmol/L [facility] [employer] Creatinine [Mass/Vol] 0.76 mg/dL 0.52 - 1.25 mg/dL [place] EGFR IF NonAfrican Croatian >60.0 >60 mL/min [place] Comment on above: Source- MDRD equatio n with creatinine calibration to IDMS(NKDEP) eGFR not recommended for drug dose adjustment GFR/1.73 sq M predicted among blacks MDRD (S/P/Bld) [Vol rate/Area] mL/min/{1.73_m2} >60 mL/min [place] Potassium [Moles/Vol] 3.8 mmol/L 3.5 - 5.1 mmol/L [place] Sodium [Moles/Vol] 129 mmol/L Low 135 - 145 mmol/L [place] Urea nitrogen [Mass/Vol] 9 mg/dL 7 - 20 mg/dL [place] EKG 12 Lead - Chest Painon 0 12-02-2018 [facility] Test Date: 2018-11-30 Pat Name: Shola Martinez Department: 2A Room: 454 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: 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1950 Requested By: MOE Order Number: [id number] Reading MD: Omkar Atwood Measurements Intervals [place] Rate: 85 P: 65 MA: 180 QRS: 6 QRSD: 118 T: 8 QT: 364 QTc: 433 Interpretive Statements SINUS RHYTHM NONSPECIFIC INTRAVENTRICULAR CONDUCTION DELAY BASELINE WANDER IN LEAD(S) V2 Compared to ECG 06/27/2018 04:20:14 No significant changes Electronically Signed On 12-02-2018 10:07:44 EDT by Omkar Atwood [place], [place] Mark, [facility] Incoming Cardiology Results From [facility] - 12/02/2018 10:08 AM EDT [facility] Test Date: 2018-11-30 Pat Name: Shola Martinez Department: 2AED Room: 454 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 Results may be 10%-15% lower than serum/plasma values. (CLIA ID [id number]) Otheron 12-02-2018 Interpretation and review of laboratory results Abnormal [employer] Test Performed by [facility], [address], [place], [place] [address] [place] POCT Glucoseon 12-02-2018 Glucose [Mass/Vol] 161 mg/dL High 70 - 100 mg/dL [employer] Comment on above: Test performed by gl ucose meter. Results may be 10%-15% lower than serum/plasma values. (CLIA ID [id number]) Interpretation and review of laboratory results Abnormal [employer] Test Performed by [facility], [address], [place] [address] [employer], [place] Glucose [Mass/Vol] 169 mg/dL High 70 - 100 mg/dL [employer] Comment on above: Test performed by gl ucose meter. Results may be 10%-15% lower than serum/plasma values. (CLIA ID [id number]) Interpretation and review of laboratory results Abnormal [place] Test Performed by [employer], [address], [place], [place] [address] [employer] Glucose [Mass/Vol] 156 mg/dL High 70 - 100 mg/dL [employer] Comment on above: Test performed by gl ucose meter. Results may be 10%-15% lower than serum/plasma values. (CLIA ID [id number]) Interpretation and review of laboratory results Abnormal [place] Test Performed by [employer], [address], [place], [place] [address] [employer] Basic Metabolic Panel w/ Ref steve to MGon 12-01-2018 Anion gap [Moles/Vol] 7 mmol/L [place] Calcium [Mass/Vol] 8.1 mg/dL Low 8.4 - 10. 4 mg/dL [place] Chloride [Moles/Vol] 97 mmol/L Low 98 - 10 7 mmol/L [place] CO2 [Moles/Vol] 24 mmol/L 22 - 30 mmol/L [place] Creatinine [Mass/Vol] 0.82 mg/dL 0.52 - 1.25 mg/dL [place] EGFR IF NonAfrican Croatian >60.0 >60 mL/min [place] Comment on above: Source- MDRD equatio n with creatinine calibration to IDMS(NKDEP) eGFR not recommended for drug dose adjustment GFR/1.73 sq M predicted among blacks MDRD (S/P/Bld) [Vol rate/Area] mL/min/{1.73_m2} >60 mL/min [place] Glucose [Mass/Vol] 189 mg/dL High 70 - 100 mg/dL [place] Interpretation and review of laboratory results Abnormal [place] Potassium [Moles/Vol] 4.1 mmol/L 3.5 - 5.1 mmol/L [place] Sodium [Moles/Vol] 128 mmol/L Low 135 - 145 mmol/L [place] Urea nitrogen [Mass/Vol] 9 mg/dL 7 - 20 mg/dL [place] Test Performed by [facility], [address], [place], [place] [address] [place] [address] CBC auto differentialon - Absolute Baso # 0.0 10*3/uL 0 - 0.2 10*3/uL [place] Absolute Neut # 5.2 10*3/uL 1.8 - 7 10*3/uL [place] Basophils/100 WBC (Bld) 0.2 % 0 - 2 % [place] Eosinophils (Bld) [#/Vol] 0.0 10*3/uL 0 - 0.5 10*3/uL [place], [place] Eosinophils/100 WBC (Bld) 0.1 % Low 1 - 6 % [place] Erythrocyte distribution width (RBC) [Ratio] 12.5 % 11.5 - 14.5 % [place], [place] Granulocytes/100 WBC (Bld) 80.6 % High 40 - 80 % [place] Hematocrit (Bld) [Volume fraction] 37.2 % Low 40 - 52 % [place] Hemoglobin (Bld) [Mass/Vol] 12.7 g/dL Low 13 - 18 g/dL [place] Interpretation and review of laboratory results Abnormal [place] Lymphocytes (Bld) [#/Vol] 0.7 10*3/uL Low 1 - 4.3 10*3/uL [place] Lymphocytes/100 WBC (Bld) 11.0 % Low 20 - 40 % [place] MCH (RBC) [Entitic mass] 31.1 pg 26 - 34 pg [place] MCHC (RBC) [Mass/Vol] 34.3 % 32 - 36 % [place] MCV (RBC) [Entitic vol] 90.8 fL 80 - 98 fL [place], [place] Monocytes (Bld) [#/Vol] 0.5 10*3/uL 0 - 0.8 10*3/uL [place], [place] Monocytes/100 WBC (Bld) 8.1 % 2 - 10 % [place] Platelet mean volume (Bld) [Entitic vol] 7.5 fL 7.4 - 10.4 fL [place] Platelets (Bld) [#/Vol] 96 10*3/uL Low 140 - 440 10*3/uL [place] RBC (Bld) [#/Vol] 4.10 10*6/uL Low 4.4 - 5.9 10*6/uL [place] WBC (Bld) [#/Vol] 6.5 10*3/uL 3.6 - 10.7 10*3/uL [place] Test Performed by [facility], [address], [place] [id number] [place] Hemoglobin A1Con 12-01-2018 eAG 174 mg/dL [place] HbA1c (Bld) [Mass fraction] 7.7 % High 4 - 5.7 % [place] Comment on above: --HgbA1C levels may not be accurate in patients who have renal disease, received recent blood transfusions, are anemic, or who have dyshemoglobinemia. Interpretation and review of laboratory results Abnormal [place] Test Performed by [facility], [address] [place] [address] [place] LEGIONELLA ANTIGEN, URINEon 12-01-2018 LEGIONELLA ANTIGEN Legionella antigen N OT DETECTED. [place], [place] Lactic Acid, Plasmaon 2018 Lactate [Moles/Vol] 1.6 mmol/L 0.7 - 2 mmol/L [place] Test Performed by [facility], [address] [place], [place] [address] [place], [place] Otheron 12-01-2018 Test Performed by [facility], [address] [place] [address] Specimen Source Comment:Urine, clean catch [place], [place] POCT Glucoseon 12-01-2018 Glucose [Mass/Vol] 160 mg/dL High 70 - 100 mg/dL [place] Comment on above: Test performed by gl ucose meter. Results may be 10%-15% lower than serum/plasma values. (CLIA ID [id number]) Interpretation and review of laboratory results Abnormal [place] Test Performed by [facility], [address] [place], [place] [address] [place] Glucose [Mass/Vol] 231 mg/dL High 70 - 100 mg/dL [place] Comment on above: Test performed by gl ucose meter. Results may be 10%-15% lower than serum/plasma values. (CLIA ID [id number]) Interpretation and review of laboratory results Abnormal [place] Test Performed by [facility], [address] [place], [place] [address] [place] Glucose [Mass/Vol] 220 mg/dL High 70 - 100 mg/dL [place] Comment on above: Test performed by ucose meter. Results may be 10%-15% lower than serum/plasma values. (CLIA ID [id number]) Interpretation and review of laboratory results Abnormal [place] Test Performed by [facility], [address], [place], [place] [address] [place] PROCALCITONINon 12-01-2018 Procalcitonin <0.10 <0.10 ng/mL [place] Sodium [Moles/Vol] See Below [place], [place] Comment on above: PCT <0.50 = Low risk of severe sepsis and/or septic shock. PCT >2.00 = High risk of severe sepsis and/or septic shock. Test Performed by [facility], [facility] [employer] [place] [address] [place] Respiratory Virus PCR Panelo n 12-01-2018 Respiratory Panel PCR NEGATIVE: No targe ts were detected by the XO1fire Upper Respiratory Pathogens PCR Panel. The Biofire Upper Respiratory Pathogens PCR Panel detects the following targets: Adenovirus Coronavirus 229E Coronavirus HKU1 Coronavirus NL63 Coronavirus OC43 Human Metapneumovirus Human Rhinovirus/Enterovirus Influenza A Influenza B Parainfluenza Virus 1 Parainfluenza Virus 2 Parainfluenza Virus 3 Parainfluenza Virus 4 Respiratory Syncytial Virus Bordetella pertussis Bordetella parapertussis Chlamydia pneumoniae Mycoplasma pneumoniae [place] Test Performed by [facility], [address] [place] [address] Specimen Source Comment:Nasopharyngeal [place] SODIUMon 12-01-2018 Interpretation and review of laboratory results Abnormal [place] Sodium [Moles/Vol] 128 mmol/L Low 135 - 145 mmol/L [place] Test Performed by [facility], [address], [place], [place] [address] [place] STREP PNEUMONIAE ANTIGENon 0 12-01-2018 STREP PNEUMONIAE ANTIGEN, URINE Strep pneumo antigen NOT DETECTED. [place] Add On Lab Teston 11-30-2018 Sodium [Moles/Vol] Rejected [place], [place] Sodium [Moles/Vol] Accepted [place], [place] Comment on above: Specimen available & acceptable for analysis. Test Performed by [facility], [address], [place], [place] [address] added to [id number] [place] Basic Metabolic Panelon 11-02 Anion gap [Moles/Vol] 9 mmol/L [place] Calcium [Mass/Vol] 8.9 mg/dL 8.4 - 10. 4 mg/dL [place] Chloride [Moles/Vol] 100 mmol/L 98 - 10 7 mmol/L [place] CO2 [Moles/Vol] 24 mmol/L 22 - 30 mmol/L [place] Creatinine [Mass/Vol] 0.89 mg/dL 0.52 - 1.25 mg/dL [place] EGFR IF NonAfrican Croatian >60.0 >60 mL/min [place] Comment on above: Source- MDRD equatio n with creatinine calibration to IDMS(NKDEP) eGFR not recommended for drug dose adjustment GFR/1.73 sq M predicted among blacks MDRD (S/P/Bld) [Vol rate/Area] mL/min/{1.73_m2} >60 mL/min [place] Glucose [Mass/Vol] 176 mg/dL High 70 - 100 mg/dL [place] Potassium [Moles/Vol] 4.1 mmol/L 3.5 - 5.1 mmol/L [place] Sodium [Moles/Vol] 133 mmol/L Low 135 - 145 mmol/L [place] Urea nitrogen [Mass/Vol] 8 mg/dL 7 - 20 mg/dL [place] Brain Natriuretic Peptideon 11-30-2018 Interpretation and review of laboratory results Abnormal [place] Natriuretic peptide B (Bld) [Mass/Vol] 178 pg/mL High 0 - 125 pg/mL [place] Hemogram (CBC) w/Auto Diffon 11-30-2018 Absolute Baso # 0.0 10*3/uL 0 - 0.2 10*3/uL [place] Absolute Neut # 5.5 10*3/uL 1.8 - 7 10*3/uL [place] Basophils/100 WBC (Bld) 0.3 % 0 - 2 % [place] Eosinophils (Bld) [#/Vol] 0.0 10*3/uL 0 - 0.5 10*3/uL [place] Eosinophils/100 WBC (Bld) 0.5 % Low 1 - 6 % [place] Erythrocyte distribution width (RBC) [Ratio] 12.4 % 11.5 - 14.5 % [place] Granulocytes/100 WBC (Bld) 80.0 % 40 - 80 % [place] Hematocrit (Bld) [Volume fraction] 42.0 % 40 - 52 % [place] Hemoglobin (Bld) [Mass/Vol] 14.5 g/dL 13 - 18 g/dL [place] Interpretation and review of laboratory results Abnormal [place] Lymphocytes (Bld) [#/Vol] 0.8 10*3/uL Low 1 - 4.3 10*3/uL [place] Lymphocytes/100 WBC (Bld) 12.4 % Low 20 - 40 % [place] MCH (RBC) [Entitic mass] 30.5 pg 26 - 34 pg [place] MCHC (RBC) [Mass/Vol] 34.5 % 32 - 36 % [place] MCV (RBC) [Entitic vol] 88.6 fL 80 - 98 fL [place] Monocytes (Bld) [#/Vol] 0.5 10*3/uL 0 - 0.8 10*3/uL [place], [place] Monocytes/100 WBC (Bld) 6.8 % 2 - 10 % [place] Platelet mean volume (Bld) [Entitic vol] 7.5 fL 7.4 - 10.4 fL [place] Platelets (Bld) [#/Vol] 103 10*3/uL Low 140 - 440 10*3/uL [place] RBC (Bld) [#/Vol] 4.74 10*6/uL 4.4 - 5.9 10*6/uL [place] WBC (Bld) [#/Vol] 6.8 10*3/uL 3.6 - 10.7 10*3/uL [place] Test Performed by [facility], [address], [place], [place] [id number] [place] [address] Hepatic Function Panelon Albumin [Mass/Vol] 3.9 g/dL 3.5 - 5 g/dL [place] ALP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 Taking VItal Signs CIERRA COYLE PRENATAL NURSE-[employer] FARM MANAGER [facility] 03-01-2021 04:09-0500 Systolic blood pressure 131 mm[Hg] CIERRA COYLE PRENATAL NURSE-[employer] FARM MANAGER [facility] 02-28-2021 23:55-0500 Body temperature 95.36 [degF] CIERRA COYLE PRENATAL NURSE-[employer] FARM MANAGER [facility] 02-28-2021 20:00-0500 Heart rate 81 /min CIERRA COYLE PRENATAL NURSE-[employer] FARM MANAGER [facility] 02-28-2021 20:00-0500 Mean blood pressure 105 mm[Hg] CIERRA COYLE PRENATAL NURSE-[employer] FARM MANAGER [facility] 02-28-2021 20:00-0500 Reason For Taking VItal Signs CIERRA COYLE PRENATAL NURSE-[employer] FARM MANAGER [facility] 02-28-2021 15:33-0500 Heart rate 78 /min CIERRA COYLE PRENATAL NURSE-[employer] FARM MANAGER [facility] 02-28-2021 15:33-0500 Reason For Taking VItal Signs CIERRA COYLE PRENATAL NURSE-[employer] FARM MANAGER [facility] 02-28-2021 11:37-0500 Heart rate 84 /min CIERRA COYLE PRENATAL NURSE-[employer] FARM MANAGER [facility] 02-27-2021 09:11-0500 SaO2% (BldA) [Mass fraction] 94 % CIERRA COYLE PRENATAL NURSE-[employer] FARM MANAGER [facility] 02-27-2021 00:40-0500 Body height 188 cm CIERRA COYLE PRENATAL NURSE-[employer] FARM MANAGER [facility] 02-27-2021 00:40-0500 Body weight 112 kg CIERRA COYLE PRENATAL NURSE-[employer] FARM MANAGER [facility] 02-27-2021 00:40-0500 Body weight 31.69 kg/m2 CIERRA COYLE PRENATAL NURSE-[employer] FARM MANAGER [facility] 02-01-2021 07:50-0400 Body temperature 97.7 [degF] Jesse Pack MD Work Phone: [email or web address] Work Phone: 02-01-2021 07:50-0400 Diastolic blood pressure 78 mm[Hg] Jesse Pack MD Work Phone: [facility] Work Phone: 02-01-2021 07:50-0400 Heart rate 62 /min Jesse Pack MD Work Phone: [facility] Work Phone: 02-01-2021 07:50-0400 Respiratory rate 18 /min Jesse Pack MD Work Phone: [facility] Work Phone: 02-01-2021 07:50-0400 SaO2% (BldA) [Mass fraction] 98 % Jesse Pack MD Work Phone: [facility] Work Phone: 02-01-2021 07:50-0400 Systolic blood pressure 128 mm[Hg] Jesse Pack MD Work Phone: [facility] Work Phone: 01-31-2021 19:54-0400 Body height 188 cm Jesse Pack MD Work Phone: [facility] Work Phone: 01-31-2021 19:54-0400 Body mass index (BMI) [Ratio] 34.15 kg/m2 Jesse Pack MD Work Phone: [email or web address] Work Phone: 01-31-2021 19:54-0400 Body weight 120.66 kg Jesse Pack MD Work Phone: [email or web address] Work Phone: 02-11-2020 20:55-0500 BMI (Body Mass Index) 35.95 kg/m2 [employer] [facility] [place] 02-11-2020 20:55-0500 Body Temperature 98.6 [degF] [employer] [place] 02-11-2020 20:55-0500 Body [facility] 127.01 [facility] [place] 02-11-2020 20:55-0500 BP Diastolic 75 mm[Hg] [employer] [facility] , [place] 02-11-2020 20:55-0500 BP Systolic 149 mm[Hg] [facility] [place] 02-11-2020 20:55-0500 Height 188 cm [facility] [place] 02-11-2020 20:55-0500 Pulse (Heart Rate) 92 /min [facility] [place] 02-11-2020 20:55-0500 Pulse Oximetry 98 % [facility] [place] 02-11-2020 20:55-0500 Respiratory Rate 18 /min [employer] [place] 01-06-2020 22:38-0400 BP Diastolic 73 mm[Hg] [facility] [place] 01-06-2020 22:38-0400 BP Systolic 142 mm[Hg] Favian Zendejas [facility] , [place] 01-06-2020 22:38-0400 Pulse (Heart Rate) 88 /min Favian Zendejas [facility], [place] 01-06-2020 22:38-0400 Pulse Oximetry 100 % Favian Zendejas [facility] , [place] 01-06-2020 22:38-0400 Respiratory Rate 16 /min [facility] 01-06-2020 19:16-0400 BMI (Body Mass Index) 35.95 kg/m2 Favian Zendejas [facility] [place], [place] 01-06-2020 19:16-0400 Body Temperature 99.61 [degF] Favian [facility] [place] 01-06-2020 19:16-0400 Body weight 127.01 kg Favian Zendejas [facility] , [place] 01-06-2020 19:16-0400 Height 188 cm Favian Zendejas [facility] , [place] 09-16-2019 14:51-0400 Body Temperature 98.2 [degF] Mojganclay [facility] , [place] 09-16-2019 14:51-0400 BP Diastolic 55 mm[Hg] Mojganclay Ulricha [facility] [place] , [place] 09-16-2019 14:51-0400 BP Systolic 108 mm[Hg] [facility] [place] 09-16-2019 14:51-0400 Pulse (Heart Rate) 66 /min [facility] [place] 09-16-2019 14:51-0400 Pulse Oximetry 94 % Mojganclay Zendejas [facility] , [place] 09-16-2019 14:51-0400 Respiratory Rate 20 /min [facility]clay [facility] 09-12-2019 19:36-0400 BMI (Body Mass Index) 36.32 kg/m2 Mojganclay Zendejas [facility] 09-12-2019 19:36-0400 Body weight 128.32 kg [facility]ganclay [facility] [place] 09-12-2019 15:03-0400 Height 188 cm Mojganclay Zendejas [facility] , [place] 09-02-2019 22:00-0400 BP Diastolic 84 mm[Hg] [facility] [place] [facility] [place] 09-02-2019 22:00-0400 BP Systolic 159 mm[Hg] [facility] [place] [facility] [place] 09-02-2019 22:00-0400 Pulse (Heart Rate) 76 /min [facility] [place] 09-02-2019 22:00-0400 Pulse Oximetry 100 % [facility] [place] 09-02-2019 22:00-0400 Respiratory Rate 18 /min [facility] [place] 09-02-2019 20:18-0400 Body Temperature 98.6 [degF] [facility] [place] 12-04-2018 15:08-0400 Body Temperature 98.71 [degF] Praneeth Rosa [facility], [place] 12-04-2018 15:08-0400 BP Diastolic 83 mm[Hg] Praneeth Rosa [facility] , [place] 12-04-2018 15:08-0400 BP Systolic 151 mm[Hg] Praneeth Rosa [facility] , [place] 12-04-2018 15:08-0400 Pulse (Heart Rate) 67 /min Praneeth Rosa [facility], [place] 12-04-2018 15:08-0400 Pulse Oximetry 98 % Praneeth Rosa [facility] , [place] 12-04-2018 15:08-0400 Respiratory Rate 22 /min Praneeth Rosa [facility], [place] 12-02-2018 03:49-0400 BMI (Body Mass Index) 38.45 kg/m2 [facility] [place] 12-02-2018 03:49-0400 Body weight 135.85 kg Praneeth Rosa [facility] , [place] 11-30-2018 10:13-0400 Height 188 cm Praneeth Rosa [facility] [place] Encounters Encounter Date Encounter Type Care Provider Facility Start: 05-15-2024 End: 05-15-2024 Emergency department patient visit Jessica Alvarez NP Facility:[facility] Start: 11-08-2023 [facility] Facility: [facility] Start: 11-08-2023 End: 11-12-2023 Evaluation and management of inpatient Jessica Alvarez FIELD REPRESENTATIVE/HEALTH EDUCATION Facility:[facility] Start: 12-28-2022 End: 12-28-2022 ambulatory FIELD REPRESENTATIVE/HEALTH EDUCATION-C Jessica Alvarez FIELD REPRESENTATIVE/HEALTH EDUCATION Work Phone: [facility] Work Phone: Start: 12-28-2022 End: 12-28-2022 Patient encounter procedure FIELD REPRESENTATIVE/HEALTH EDUCATION-C Jessica Alvarez FIELD REPRESENTATIVE/HEALTH EDUCATION Work Phone: [facility]-Outpatient Bone Densitometry Work Phone: Start: 11-11-2022 Non-patient / Non-visit FIELD REPRESENTATIVE/HEALTH EDUCATION-C Cesar Alvarez FIELD REPRESENTATIVE/HEALTH EDUCATION Work Phone: [facility] Work Phone: Start: 11-10-2022 Non-patient / Non-visit FIELD REPRESENTATIVE/HEALTH EDUCATION-C Cesar Alvarez FIELD REPRESENTATIVE/HEALTH EDUCATION Work Phone: [facility] Work Phone: Start: 11-09-2022 Non-patient / Non-visit FIELD REPRESENTATIVE/HEALTH EDUCATION-C Cesar Alvarez FIELD REPRESENTATIVE/HEALTH EDUCATION Work Phone: [facility] Work Phone: Start: 11-08-2022 End: 11-11-2022 Evaluation and management of inpatient [facility]-Progressive Care Unit Work Phone: Start: 11-08-2022 End: 11-11-2022 observation encounter FIELD REPRESENTATIVE/HEALTH EDUCATION-C Jessica Alvarez FIELD REPRESENTATIVE/HEALTH EDUCATION Work Phone: [facility] Work Phone: Start: 11-08-2022 End: 11-08-2022 Emergency department patient visit [facility]Emergency Department Work Phone: Start: 10-03-2022 End: 10-03-2022 Emergency department patient visit [facility]Emergency [facility] Work Phone: Start: 02-14-2022 End: 02-14-2022 AMB External Visit DANAY CASTILLO MD [facility] Start: 04-30-2021 End: 04-30-2021 Emergency department patient visit MILAD SNOW MD [facility] Start: 02-26-2021 End: 03-01-2021 Evaluation and management of inpatient CIERRA COYLE PRENATAL NURSE-[employer] MANAGER [facility] Start: 02-16-2021 Patient encounter procedure [facility] Provider [facility] Department Start: 01-30-2021 End: 02-01-2021 Emergency department patient visit Jesse Pack MD Work Phone: [employer] Comment on above: Lightheadedness (Nelida adela Dx) Start: 01-03-2021 End: 01-03-2021 Subsequent hospital visit by physician Favian Trevizo MD PhD [facility] Start: 02-11-2020 End: 02-11-2020 Emergency department patient visit wendy Trevizo [facility] ED Comment on above: Closed head injury, initial encounter (Primary Dx); Fall, initial encounter; Lumbar strain, initial encounter Start: 01-06-2020 End: 01-06-2020 Emergency department patient visit Favian Trevizo [facility] ED Comment on above: Subjective fever (Pr imary Dx) Start: 09-12-2019 End: 09-16-2019 Emergency department patient visit Mojgan Ivy Work Phone: [employer] Comment on above: Acute cystitis with hematuria (Primary Dx); Dehydration; Generalized weakness Start: 09-02-2019 End: 09-02-2019 Emergency department patient visit Tyler Bermudez Work Phone: [facility] ED Comment on above: Injury of head, init ial encounter (Primary Dx) Start: 11-30-2018 End: 12-04-2018 Evaluation and management of inpatient Praneeth Moe Work Phone: [facility] [employer] Comment on above: Pneumonia due to org anism (Primary Dx); Non-intractable vomiting with nausea, unspecified vomiting type; General weakness; Elevated lactic acid level Start: 10-31-2017 End: 11-01-2017 Patient encounter [facility] Start: 10-24-2017 End: 10-25-2017 Patient encounter [facility] Start: 10-17-2017 End: 10-18-2017 Patient encounter [facility] Start: 10-09-2017 End: 10-10-2017 Patient encounter ROSA TEJADA [facility] Start: 10-02-2017 End: 10-03-2017 Patient encounter [facility] Start: 09-25-2017 End: 09-25-2017 Evaluation and management of inpatient KELVIN ALMANZAR [facility] Start: 06-10-2011 End: 06-10-2011 Patient encounter procedure Kelle Sim Work Phone: [facility] Start: 06-10-2011 Results Only Kelle Sim Work Phone: [facility] Procedures Date Procedure Procedure Detail Performing Clinician Start: 12-28-2022 Dual energy X-ray absorptiometry FIELD REPRESENTATIVE/HEALTH EDUCATION-C Jessica Alvarez FIELD REPRESENTATIVE/HEALTH EDUCATION Work Phone: Start: 11-10-2022 US scan of gallbladder FIELD REPRESENTATIVE/HEALTH EDUCATION-C Jessica sahni FIELD REPRESENTATIVE/HEALTH EDUCATION Work Phone: Start: 11-09-2022 Plain chest X-ray FIELD REPRESENTATIVE/HEALTH EDUCATION-C Jessica Diez P Work Phone: Start: 11-08-2022 Plain chest X-ray Start: 11-08-2022 Coronavirus COVID-19 PCR FIELD REPRESENTATIVE/HEALTH EDUCATION-C Jessica cordero FIELD REPRESENTATIVE/HEALTH EDUCATION Work Phone: Start: 10-03-2022 X-ray of chest [...] Work Phone: Start: 01-30-2021 Prothrombin time Denzel Rg Vaughn PA- C Work Phone: Start: 01-30-2021 Ct head/brain w/o contrast material Denzel N Vaughn PA-C Work Phone: Start: 01-30-2021 Ecg routine ecg w/least 12 lds w/i&r Denzel N Vaughn PA-C Work Phone: Start: 02-11-2020 Radex spine lumbosacral 2/3 views Kelle Patrick Ambrocio Work Phone: Start: 02-11-2020 Ct cervical spine w/o contrast material Kelle L Ambrocio Work Phone: Start: 02-11-2020 Ct head/brain w/o contrast material Kelle L [employer] Work Phone: Start: 09-16-2019 Gluc bld gluc mntr dev cleared fda spec home use Mojgan Ivy Work Phone: Start: 09-16-2019 Gluc bld gluc mntr dev cleared fda spec home use Mojgan Ivy Work Phone: Start: 09-16-2019 Gluc bld gluc mntr dev cleared fda spec home use Mojgan Ivy Work Phone: Start: 09-16-2019 BASIC METABOLIC PANEL W/ REFLEX TO MG FOR LOW K [employer] Work Phone: Start: 09-16-2019 Blood count complete automated [facility] [employer] Work Phone: Start: 09-15-2019 Gluc bld gluc [...] use Mojgan Ivy Work Phone: Start: 09-14-2019 BASIC METABOLIC PANEL W/ REFLEX TO MG FOR LOW K Shea Aguilar Work Phone: Start: 09-14-2019 Blood count complete automated Shea Aguilar Work Phone: Start: 09-13-2019 Gluc bld gluc mntr dev cleared fda spec home use Mojgan Ivy Work Phone: Start: 09-13-2019 Gluc bld gluc [...] 09-12-2019 Culture bacterial quanttative colony count urine Mojgan Ivy Work Phone: Start: 09-12-2019 Urnls dip stick/tablet rgnt auto w/o microscopy Mojgan Ivy Work Phone: Start: 09-12-2019 COVID-19 Mojgan Ivy [...] dev cleared fda spec home use [facility] Work Phone: Start: 12-04-2018 Gluc bld gluc mntr dev cleared fda spec home use [facility] Work Phone: Start: 12-04-2018 Blood count complete [facility] Work Phone: Start: 12-04-2018 Comprehensive metabolic panel [facility] Work Phone: Start: 12-03-2018 Gluc bld gluc mntr dev cleared fda spec home use Man [employer] Work Phone: Start: 12-03-2018 Gluc bld gluc mntr dev cleared fda spec home use Man [employer] Work Phone: Start: 12-03-2018 Gluc bld gluc mntr dev cleared fda spec home use Praneeth Rosa Work Phone: Start: 12-03-2018 Iadna-dna/rna gi pthgn multiplex probe tq 12-25 Man [employer] Work Phone: Start: 12-03-2018 Gluc bld gluc mntr dev cleared fda spec home use Praneeth Rosa Work Phone: Start: 12-03-2018 Basic metabolic panel calcium total Shea Aguilar Work Phone: Start: 12-03-2018 Blood count complete automated Shea Aguilar Work Phone: Start: 12-02-2018 Gluc bld gluc mntr dev cleared fda spec home use Praneeth Sum[facility] Work Phone: Start: 12-02-2018 Gluc bld gluc mntr dev cleared fda spec home use Praneeth [employer] Work Phone: Start: 12-02-2018 Basic metabolic panel calcium total Shea Aguilar Work Phone: Start: 12-02-2018 Gluc bld gluc mntr dev cleared fda spec home use Praneeth [employer] Work Phone: Start: 12-02-2018 Gluc bld gluc mntr dev cleared fda spec home use Praneeth [employer] Work Phone: Start: 12-01-2018 Gluc bld gluc mntr dev cleared fda spec home use PraneethYammer Work Phone: Start: 12-01-2018 Sodium serum plasma or whole blood Gene Meléndez Work Phone: Start: 12-01-2018 Gluc bld gluc mntr dev cleared fda spec home use Praneeth [employer] Work Phone: Start: 12-01-2018 Gluc bld gluc [...] mult step method nos each organism Man Hardin Work Phone: Start: 11-30-2018 STREP PNEUMONIAE ANTIGEN Man [facility] Work Phone: Start: 11-30-2018 Assay of lactate Man [facility] Work Phone: Start: 11-30-2018 Procalcitonin (pct) Man [facility] Work Phone: Start: 11-30-2018 ADD ON LAB TEST Man Hardni Work Phone: Start: 11-30-2018 Radex abd compl aqt abd w/s/e/d views 1 view ch Man [employer] Work Phone: Start: 11-30-2018 Iadna respiratry probe & rev trnscr 12- target Man Hardin Work Phone: Start: 11-30-2018 Assay of lactate Man [facility] Work Phone: Start: 11-30-2018 End: 11-30-2018 Culture bacterial blood aerobic w/id isolates Nurys Mukherjee Work Phone: Start: 11-30-2018 ADD ON LAB TEST Nurys Mukherjee [employer] Phone: Start: 11-30-2018 Assay of lactate Nurys Mukherjee [employer] Phone: Start: 11-30-2018 Assay of lipase Nurys Mukherjee [employer] Phone: Start: 11-30-2018 Assay of troponin quantitative Nurys Mukherjee [employer] Phone: Start: 11-30-2018 Basic metabolic panel calcium total Nurys Mukherjee [employer] Phone: Start: 11-30-2018 Blood count complete auto&auto difrntl wbc Nurys Mukherjee [employer] Phone: Start: 11-30-2018 Hepatic function panel Nurys Mukherjee [employer] Phone: Start: 11-30-2018 Natriuretic peptide Nurys Mukherjee [employer] Phone: Start: 11-30-2018 Radiologic exam chest single view Nurys Mukherjee Work Phone: Start: 11-30-2018 Ecg routine ecg w/least 12 lds w/i&r Nurys Mukherjee Work Phone: Start: 11-30-2018 Urnls dip stick/tablet rgnt auto w/o microscopy Nurys Mukherjee Work Phone: Start: 05-21-2018 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 Favian Trevizo MD PhD Work Phone: Start: 06-10-2011 CONVERTED SURGICAL PATHOLOGY Kelle Edita Roney Work Phone: None (qualifier value) DENY COYLE PRENATAL NURSE-[employer] MANAGER Plan of Treatment Date Care Activity Detail Author Start: 09-01-2029 DTaP/Tdap/Td vaccine (4 - Td or Tdap) DTaP/Tdap/Td vaccine (4 - Td or Tdap) [facility] Work Phone: Start: 09-01-2029 DTaP/Tdap/Td vaccine (4 - Td) DTaP/Tdap/Td vaccine (4 - Td) [place], [place] Start: 01-18-2028 DTaP/Tdap/Td vaccine (3 - Td) DTaP/Tdap/Td vaccine (3 - Td) [place] Start: 11-20-2026 Colon cancer screen colonoscopy Colon cancer screen colonoscopy [place], [place] Start: 11-20-2026 Screening for malignant neoplasm of colon Colon cancer screen colonoscopy [place] Start: 11-17-2022 Blood chemistry [facility] Start: 11-16-2022 Blood chemistry [facility] Start: 11-15-2022 Blood chemistry [facility] Start: 11-14-2022 Blood chemistry [facility] Start: 11-13-2022 Blood chemistry [facility] Start: 11-12-2022 Blood chemistry [facility] Start: 11-11-2022 Patient discharge [facility] Start: 11-08-2022 Aspiration precautions [facility] Start: 11-08-2022 Assessment of risk of venous thromboembolism [facility] Start: 11-08-2022 Care regimes management [facility] Start: 11-08-2022 Fall prevention [facility] Start: 11-08-2022 Inhalation therapy procedure [facility] Start: 11-08-2022 Insertion of catheter into peripheral vein [facility] Start: 11-08-2022 Introduction of urinary catheter [facility] Start: 11-08-2022 Measuring intake and output [facility] Start: 11-08-2022 Notification of physician [facility] Start: 11-08-2022 Providing care according to standard [facility] Start: 11-08-2022 Provision of activity privileges [facility] Start: 11-08-2022 Referral to occupational therapist [facility] Start: 11-08-2022 Referral to service [facility] Start: 11-08-2022 Verification routine [facility] Start: 11-08-2022 End: 11-08-2022 [facility] Start: 11-08-2022 Admission procedure [facility] Start: 11-08-2022 Coronavirus COVID-19 PCR Coronavirus COVID-19 PCR [facility] Start: 11-08-2022 Emergency department visit high/urgent severity EMERGENCY DEPT VISIT MOD MDM [facility] Start: 11-08-2022 Ther proph/dx njx iv push single/1st sbst/drug THER/PROPH/DIAG INJ IV PUSH [facility] Start: 11-08-2022 Troponin I measurement [facility] Start: 10-03-2022 [facility] Start: 10-03-2022 Incentive spirometry [facility] Start: 02-01-2022 Creatinine measurement Creatinine monitoring [facility] [...] procedure 06/13/2021 Office Visit Dermatology Kelle Nolasco PRENATAL NURSE - [employer] MANAGER [address] [facility] [address] [place], [place] [id number] D[facility] Start: 05-12-2021 Diabetic retinal exam Diabetic retinal exam [facility] Work Phone: Start: 05-12-2021 End: 05-12-2021 Patient encounter procedure 05/12/2021 Office Visit Ophthalmology Judy Reyes MD [address] [facility] [address] [place], [place] [id number] [facility] Start: 02-16-2021 End: 02-16-2021 Patient encounter procedure 02/16/2021 Office Visit Neurology Brandy Mckinley PRENATAL NURSE - [employer] MANAGER [address] [facility] [address] [place], [place] [id number] [facility] [place] Start: 02-11-2021 End: 02-11-2021 Patient encounter procedure 02/11/2021 Office Visit Family Medicine Favian Trevizo MD [address] [id number] [facility] Start: 02-09-2021 End: 02-09-2021 Patient encounter procedure 02/09/2021 Office Visit Orthopedic Surgery Ebony Nguyen DPM [address] [place] [address] [phone] [facility] [place] Start: 01-20-2021 End: 01-20-2021 Nursing evaluation of patient and report 01/20/2021 Nurse Only Family Medicine [facility] Start: 01-19-2021 End: 01-19-2021 Patient encounter procedure 01/19/2021 Office Visit Otolaryngology Asif Negron MD [address] [place] [address] [phone] [facility] Start: 01-12-2021 End: 01-12-2021 Patient encounter procedure 01/12/2021 Office Visit Orthopedic Surgery Ebony Nguyen DPM [address] [place] [address] [phone] [facility] [place] Start: 01-11-2021 End: 01-11-2021 Patient encounter procedure 01/11/2021 Appointment Neurology Geo Ruvalcaba MD [address] [place] [address] [phone] [facility] Start: 01-07-2021 End: 01-07-2021 Patient encounter procedure 01/07/2021 Office Visit Neurology Brandy Mckinley APRN - [employer] [address] [place] [address] [phone] [facility] [place] Start: 12-01-2020 Influenza vaccination Flu vaccine (#1) [facility] Work Phone: Start: 10-19-2020 HbA1c (Bld) [Mass fraction] A1C test (Diabetic or Prediabetic) [place], [place] Start: 10-19-2020 Lipid panel Lipid [place] Start: 09-15-2020 Creatinine measurement Creatinine monitoring [place], [place] Start: 09-15-2020 Potassium monitoring Potassium monitoring [facility] [place] Start: 05-12-2020 End: 05-12-2020 Office Visit 05/12/2020 Office Visit Ophthalmology Judy Reyes MD [address] [place] [address] [place] [address] [phone] [facility] Start: 05-07-2020 Diabetic retinal exam Diabetic retinal exam [facility] [place] Start: 04-07-2020 End: 04-07-2020 Office Visit 04/07/2020 Office Visit Family Medicine Favian Trevizo MD PhD [address] [place] [address] [phone] [facility] Start: 03-13-2020 Diabetic foot examination Diabetic foot exam [facility] [place] Start: 03-13-2020 HbA1c (Bld) [Mass fraction] A1C test (Diabetic or Prediabetic) [place] Start: 01-20-2020 End: 01-20-2020 Office Visit 01/20/2020 Office Visit Family Medicine Favian Trevizo MD PhD [address] [facility] [place] [address] [phone] [facility] Start: 01-10-2020 Annual Wellness Visit (AWV) Annual Wellness Visit (AWV) [place] Start: 12-05-2019 Creatinine measurement Creatinine monitoring [place], [place] Start: 12-05-2019 Creatinine monitoring Creatinine monitoring [place], [place] Start: 12-05-2019 Potassium monitoring Potassium monitoring [facility] [place] Start: 12-02-2019 A1C test (Diabetic or Prediabetic) A1C test (Diabetic or Prediabetic) [place] Start: 12-02-2019 Influenza vaccination Flu vaccine (#1) [place] Start: 10-20-2019 End: 10-20-2019 Office Visit 10/20/2019 Office Visit Family Medicine Favian Trevizo MD PhD [address] [facility] [place] [address] [phone] [facility] Start: 09-25-2019 End: 09-25-2019 Office Visit 09/25/2019 Office Visit Family Medicine Favian Trevizo MD PhD [address] [place] [address] [phone] [facility] Start: 09-18-2019 End: 09-18-2019 Office Visit 09/18/2019 Office Visit Family Medicine Favian Trevizo MD PhD [address] [place] [address] [phone] [facility] Start: 05-23-2019 Diabetic retinal exam Diabetic retinal exam [place], [place] Start: 05-07-2019 End: 05-07-2019 Office Visit 05/07/2019 Office Visit Ophthalmology Judy Reyes MD [address] [place] [address] [phone] [facility] Start: 02-14-2019 [object Object] Diabetic foot exam [place] Start: 01-31-2019 Influenza vaccination Flu vaccine (#1) [place] Comment on above: Postponed from 12/01/2018 (Patient Refus ed) Start: 01-09-2019 End: 01-09-2019 Office Visit 01/09/2019 Office Visit Family Favian Aiken MD PhD [address] [place] [address] [phone] [facility] Start: 10-16-2018 Diabetic microalbuminuria test Diabetic microalbuminuria test [place] Start: 10-16-2018 Lipid panel Lipid [place] Start: 10-16-2018 Lipid screen Lipid [place] Start: 09-17-2018 Annual Wellness Visit (AWV) Annual Wellness Visit (AWV) [place] Start: 2012 Annual Wellness Visit (AWV) Annual Wellness Visit (AWV) [place] Start: 09-06-1999 Shingles Vaccine (1 of 2) Shingles Vaccine (1 of 2) [place], [place] Start: 1949 Hepatitis C screen Hepatitis C screen [place], [place] Start: 1949 Hepatitis C screening Hepatitis C screen [place], [place] End: 11-30-2018 Bacteria identified Respiratory culture Nom (Sput) Sputum culture Microbiology Routine One Time for 1 Occurrences starting 11/30/2018 until 11/30/2018 [place] Comment on above: One Time for 1 Occurrences starting 11/02 until 11/30/2018 End: 09-17-2019 Basic Metabolic Panel w/ Reflex to MG Basic Metabolic Panel w/ Reflex to MG Lab Routine Daily for 5 Occurrences starting 09/13/2019 until 09/17/2019, 4 completed [place], [place] Comment on above: Daily for 5 Occurrences starting 020 until 09/17/2019, 4 completed Basic Metabolic Pane l w/ Reflex to MG Basic Metabolic Panel w/ Reflex to MG Lab Routine Daily until discontinued starting 02/01/2021, 1 completed [email or web address] Work Phone: Comment on above: Daily until discontinued starting 2020, 1 completed End: 09-17-2019 CBC CBC Lab Routine Daily for 5 Occurrences starting 09/13/2019 until 09/17/2019, 4 completed [place] Comment on above: Daily for 5 Occurrences starting 020 until 09/17/2019, 4 completed CBC W Auto Different ial panel - Blood CBC Auto Differential Lab Routine Daily until discontinued starting 02/01/2021, 1 completed [email or web address] Work Phone: Comment on above: Daily until discontinued starting 2020, 1 completed End: 01-06-2020 COVID-19 COVID-19 Lab Routine One Time for 1 Occurrences starting 01/06/2020 until 01/06/2020 [place] Comment on above: One Time for 1 Occurrences starting 09/2019 until 01/06/2020 COVID-19 COVID-19 Lab STA T 01/06/2020 8:13 PM EDT [place] Culture Blood #1 Culture Blood # 1 Microbiology STAT 11/30/2018 12:25 PM EDT [place] Culture Blood #2 Culture Blood # 2 Microbiology STAT 11/30/2018 12:55 PM EDT [facility] End: 09-14-2019 Free T4 [Mass/Vol] T4, Free Lab Add-On One Time for 1 Occurrences starting 09/14/2019 until 09/14/2019 [facility] Comment on above: One Time for 1 Occurrences starting 08/31 until 09/14/2019 End: 01-30-2021 Glucose [Mass/volume] in Serum or Plasma POCT Glucose Point of Care Testing STAT One Time for 1 Occurrences starting 01/30/2021 until 01/30/2021 [facility] Work Phone: Comment on above: One Time for 1 Occurrences starting 01/02 until 01/30/2021 HHN Treatment HHN Treatment Respiratory Care Routine Every 4hr while awake until discontinued starting 11/30/2018 [facility] [place] Comment on above: Every 4hr while awake until discontinued starting 11/30/2018 End: 12-04-2018 Home O2 eval (desaturation screen) Home O2 eval (desaturation screen) Respiratory Care Routine One Time for 1 Occurrences starting 12/04/2018 until 12/04/2018 [facility] Comment on above: One Time for 1 Occurrences starting 07/2018 until 12/04/2018 Incentive spirometry RT Incentiv e spirometry RT Respiratory Care Routine Every 2hr while awake until discontinued starting 11/30/2018 [facility] [place] Comment on above: Every 2hr while awake until discontinued starting 11/30/2018 Initiate Oxygen Ther apy Protocol [facility] [place] Comment on above: Daily until discontinued starting 2018 Daily until disconti nued starting 09/12/2019 End: 11-30-2018 Microscopic observation Gram stain Nom (Unsp spec) Gram Stain Microbiology Routine Once for 1 Occurrences starting 11/30/2018 until 11/30/2018 [facility] Comment on above: Once for 1 Occurrences starting 12/01/19 19 until 11/30/2018 End: 09-12-2019 Miscellaneous Sendout 1 Miscellaneous Sendout 1 Lab Routine One Time for 1 Occurrences starting 09/12/2019 until 09/12/2019 [facility] Comment on above: One Time for 1 Occurrences starting 08/31 until 09/12/2019 Oxygen therapy [[facility] Data Set] [facility] Work Phone: Comment on above: Daily until discontinued starting 2020 Daily until disconti nued starting 01/31/2021 Patient Education [facility] Work Phone: Patient referral [facility] Work Phone: POCT glucose [place], [place] Comment on above: 4X Daily (AC & HS) until discontinued st arting 12/01/2018 As Needed until disc ontinued starting 12/01/2018 As Needed until disc ontinued starting 09/12/2019 Respiratory pathogen s DNA and RNA panel - Respiratory specimen by LILLIAN with probe detection [facility] End: 11-30-2018 Sputum induction Sputum induction Respiratory Care Routine One Time for 1 Occurrences starting 11/30/2018 until 11/30/2018 [place] Comment on above: One Time for 1 Occurrences starting 11/02 until 11/30/2018 Immunizations Immunization Date Immunization Notes Care Provider Fa [facility] 10-03-2022 tetanus toxoid, redu agustina diphtheria toxoid, and acellular pertussis vaccine, adsorbed [facility] 04-07-2020 Influenza, High-dose , Quadv, 65 yrs +, IM (Fluzone) Favian Trevizo MD PhD Work Phone: [email or web address] Work Phone: 09-02-2019 diphtheria, tetanus toxoids and acellular pertussis vaccine, unspecified formulation [facility] , [place] 09-02-2019 tetanus toxoid, redu agustina diphtheria toxoid, and acellular pertussis vaccine, adsorbed [facility], [place] 01-09-2019 influenza, high dose seasonal, preservative-free [facility] 01-17-2018 tetanus toxoid, redu agustina diphtheria toxoid, and acellular pertussis vaccine, adsorbed [facility], [place] 10-16-2017 pneumococcal polysaccharide vaccine, 23 valent Praneeth Rosa [facility], [place] 08-10-2016 pneumococcal conjuga te vaccine, 13 valent Prane[facility], [place] 07-22-2012 pneumococcal polysaccharide vaccine, 23 valent [facility] [place] 05-27-2007 tetanus toxoid, redu agustina diphtheria toxoid, and acellular pertussis vaccine, [facility] [place] 08-[facility]-1992 Td, unspecified formulation [facility], [place] Payers Date Payer Category Payer Unknown [id number] 2023 Medicare [id number] 2023 Self-pay 2023 Unknown [id number] 2023 Unknown [id number] 2020 [facility] A ETNA MEDICARE ADVANTAGE O [id number] 2020-Present [address] [place] [address] Medicare [id number] 2020 Medicare AET MEDICARE A ETNA MEDICARE ASSURE O D SNP [id number] 2020-Present [phone] [address] [place] [address] Medicare [id number] 2016 Medicare [id number] 2016 Medicare BCBS MEDICARE AN THEM MEDIBLUE ESSENTIAL/PLUS xxxxxxxxxxxx 2016-Present [address] [address] [place] [address] xxxxxxxxxxxx [id number] 2013 Medicaid MEDICAID [facility] MEDICAID [id number] 2013-Present [phone] [address] [place] [address] Medicaid [id number] 2005 Unknown KAZ MIRANDA KAREN ANGELINA GOMES DD6 / [facility] [id number] 2005-2014 O [id number] Unknown [id number] Unknown [id number] Unknown [id number] Unknown [id number] Unknown [id number] Unknown [id number] Unknown [id number] Social History Date Type Detail Facility Start: 12-03-2018 End: 02-14-2021 Tobacco smoking status NHIS Former smoker [facility] End: 04-02-1982 History of tobacco use Current smoker [place] End: 04-02-1982 History of tobacco use Cigarette Smoker [place] Start: 12-03-2018 End: 01-31-2021 Cigarettes smoked current (pack per day) - Reported [place] Start: 12-03-2018 [facility] [place] [place] Start: 06-14-2018 History SDOH Food Worry 1 [place] Start: 11-20-2016 Tobacco Comment quit 34 years ago [place], [place] Start: 08-17-2015 Alcohol Comment no alcohol in 3 year s [place], [place] Start: 1950 [facility] Start: 09-02-2019 End: 01-31-2021 Alcohol intake Current non-drinker of alcohol (finding[facility] to SARS-CoV -2 (event) Unable to assess [facility] RAMIREZ Start: 12-17-2019 End: 01-31-2021 Tobacco use and exposure Never used [facility] Exposure to SARS-CoV -2 (event) Not sure [facility] Start: 02-11-2020 Alcohol Comment no alcohol in 8 year s [facility] Start: 09-30-2020 Tobacco Comment quit [address] [facility] Work Phone: Start: 02-14-2021 Alcohol intake Ex-drinker (finding) [facility] Start: 1950 Sex Assigned At Male A [facility] Tobacco smoking status No Smokin g Status Entered [facility] Start: 10-03-2022 End: 11-08-2022 Tobacco smoking status NHIS Unknown if ever smoked [facility] Medical Equipment Procedure Code Equipment Code Equipment Origin al Text Equipment Identifier Dates USE DIRECTED TO TEST BLOOD SUGAR 3 TIMES DAILY [id number] Start: 08-20-2018 1 each by In Vit ro route 3 times daily As needed. [id number] Start: 08-20-2018 1 each by In Vit ro route 3 times daily As needed. [id number] Start: 01-09-2019 TEST BLOOD SUGAR 3 TIMES DAILY [id number] Start: 09-09-2019 TEST BLOOD SUGAR 3 TIMES A DAY. [id number] Start: 10-07-2020 1 each by In Vit ro route 3 times daily As needed. [id number] Start: 10-28-2020 Goals Date Patient Goal Desired Activity /State Functional Status Date Assessment Result Facility 11-11-2022 Functional status Ambulates [facility] Work Phone: Mental Status Date Assessment Result Facility 11-11-2022 Cognitive function Voice/Name [facility] Work Phone: 11-08-2022 Cognitive function Voice/Name [facility] Work Phone: 11-08-2022 Cognitive function Level Of Cons ciousness Awake;Alert;Appropriate [facility] Work Phone: 10-03-2022 Cognitive function Level Of Cons ciousness Awake;Alert [facility] Work Phone: Clinical Notes 10-07-2020 to 11-12-2023 Note Date & Type Note Facility 11-12-2023 Note [facility] Medical Records Department [address] [place] [address] Discharge Summary 11/12/23 1343 MR#: [id number] Acct: [id number] Name: SHOLA MARTINEZ Rep #: [id number] : 1950 73 From: Deniz Cooper DO PCP: TARI Edwards Status:ADM IN Location: [place] [address]1 Providers Date of Admission: 11/08/23 Date of [...] is a 73-year-old male who presented to [facility] ED on 11/08/2023 with fevers and nausea/vomiting. Hospital course as noted below. Patient discharged to SNF at [facility] in stable condition on 11/11. 1. Acute [...] and no apparent (more content not included)... [facility] 11-11-2022 Discharge summary Note Date/Time November 11, 2022 11:48[facility] Medical Records Department [address] [place] [address] Discharge Summary 11/11/22 1147 MR#: [id number] Acct: [id number] Name: SHOLA MARTINEZ Rep #:[id number] : 1950 72 From: Tanika Kunz MD PCP: TARI Edwards Status: ADM MEL Location: [place] [address] Providers Date of Admission: 11/08/22 Date of [...] (Auto) 69.9, Lymph % (Auto) 18.4 L, Van Z[place]t % (Auto) 9.8, Eos % (Auto) 1.3, [...] 18:57 EDT Reading Location ID and State: [id number] / Tel , Service support , D/C [...] Tanika Kunz Primary Care Provider: Jessica Alvarez FIELD REPRESENTATIVE/HEALTH EDUCATION Consulting Providers: Bridgett Villagomez Instructions Patient Instructions: [...] QWEEK Referrals / Follow Up: Jessica Alvarez FIELD REPRESENTATIVE/HEALTH EDUCATION, FIELD REPRESENTATIVE/HEALTH EDUCATION-C [Primary Care Provider] - Within 2 Weeks Disposition Disposition (needs filled in before D/C Order can be placed): Assisted Living Charges/Coding Visit Charges Inpatient E&M: 19406 Disch Hosp >30min 11/11/22 1432 <Electronically signed by Tanika Kunz MD> Cosigner Signature (if applicable): CC: FIELD REPRESENTATIVE/HEALTH EDUCATION-C Jessica Alvarez; Dr. Tanika Kunz MD~ Signed [facility] Work Phone: 1(380) 843-527508-12-2023 Discharge summary Author Tanika [facility] November 11, 2022 11:47am Note Date/Time November 11, 2022 11 :48am [facility] Medical Records Department [address] [place] [address] Instructions for Home/Discharge Instructions 11/11/22 1147 MR#: [id number] Acct: [id number] Name: SHOLA MARTINEZ Rep #:[id number] : 1950 72 From: Tanika Kunz MD PCP: Jessica Alvarez NP-C Status: ADM MEL Discharge Instructions Diet Discharge [...] Tanika Kunz Primary Care Provider: Jessica Alvarez FIELD REPRESENTATIVE/HEALTH EDUCATION Consulting Providers: Bridgett Villagomez Instructions Patient Instructions: [...] Referrals / Follow Up: Jessica Alvarez NP, FIELD REPRESENTATIVE/HEALTH EDUCATION-C [Primary Care Provider] - Within 2 Weeks Disposition Disposition (needs filled in before D/C Order can be placed): Assisted Living 11/11/22 1147<Electronically signed by Tanika Kunz MD>Tanika Kunz MD CC: FIELD REPRESENTATIVE/HEALTH EDUCATION-C Jessica Alvarez; Dr. Bridgett Villagomez MD ~ Signed [facility] Work Phone: 1(292) 967-564908-11-2023 Progress note Author [facility] November 10, 2022 1:35pm Note Date/Time November 10, 2022 11 :24am [facility] Medical Records Department [address] [place] [address] Progress Note 11/10/22 1123 MR#: [id number] Acct: [id number] Name: SHOLA MARTINEZ Rep #:[id number] : 1950 72 From: Tanika Kunz MD PCP: TARI Edwards Status: ADM MEL Location: [place] [address] Subjective Subjective Patient seen and examined. He [...] % (Auto) 63.7, Lymph % (Auto) 24.0, Van Zandt % (Auto) 8.7, Eos % (Auto) 2.6, [...] with placement. Charges/Coding Visit Charges Inpatient E&M: 91493 Subs Hosp L2 11/10/22 1335 <Electronically signed by Tanika Kunz MD> Tanika Kunz MD Cosigner Signature (if applicable): CC: ~ Signed [facility] Work Phone: 1(947) 962-643108-10-2023 Progress note Author Tanika [facility] November 09, 2022 3:31pm Note Date/Time November 09, 2022 12 :12pm [facility] Medical Records Department [address] [place] [address] Progress Note 11/09/22 1210 MR#: [id number] Acct: [id number] Name: SHLOA MARTINEZ Rep #:[id number] : 1950 72 From: Tanika Kunz MD PCP: TARI Edwards Status: ADM MEL Location: [place] [address] Subjective Subjective Patient seen and examined. He [...] 71.7 H, Lymph % (Auto) 17.7 L, Van Zandt % (Auto) 8.1, Eos % (Auto) 1.3, [...] normal limits. Etiology is unclear. Will get [facility] upper quadrant ultrasound to evaluate. #Thrombocytopenia: Platelets were 107 on admission and now down to 101. Again etiology is not very clear. WBC and CBC are within normal limits. Will monitor. DVT prophylaxis: Lovenox Charges/Coding Visit Charges Inpatient E&M: 40941 [facility] Hosp L2 11/09/22 1531 <Electronically signed by Tanika Kunz MD> Tanika Kunz MD Cosigner Signature (if applicable): CC: ~ Signed [facility] Work Phone: 1(513) 605-745208-09-2023 Discharge summary Author Yifan Meza [facility] November 08, 2022 9:06pm Note Date/Time November 08, 2022 5:3 3pm [facility] Medical Records Department [address] [place] [address] Emergency Department Summary 11/08/22 MR#: [id number] Acct: [id number] Name: SHOLA MARTINEZ Rep #:[id number] : 1950 72 From: Yifan Meza DO PCP: Jessica Alvarez FIELD REPRESENTATIVE/HEALTH EDUCATION-C Status: ADM MEL Location: [address] History of Present Illness Chief Complaint: General [...] He denies abdominal pain. No urinary complaints. [facility] Medical History (Updated 11/08/22 @ 20:33 by [...] Discharge Plan Disposition Disposition: Acute Care Hospital [facility] Discharge Date/Time: 11/08/22 20:33 What to do if you have Problems For any increased pain, shortness of breath, bleeding, nausea or vomiting, chestpain, or any unexpected problems, contact your Primary Care Provider. Call [facility] ([phone]) or report to the closest Emergency Room. Call 911 if necessary. 11/08/222105 <Electronically signed by Yifan Meza DO> Cosigner Signature (if applicable): CC: FIELD REPRESENTATIVE/HEALTH EDUCATION-C Jessica Alvarez ~ Signed [facility] Work Phone: 1(505) 907-949508-09-2023 History and physical note Author Bridgett Villagomez [facility] November 08, 2022 8:37pm Note Date/Time November 08, 2022 7:4 6pm [facility] Medical Records Department [address] [place] [address] H&P Exam - Hospitalist 11/08/221943 MR#: [id number] Acct: [id number] Name: SHLOA MARTINEZ Demarco Rep #:[id number] : 1950 72 From: Bridgett Villagomez MD PCP: TARI Edwards Status: ADM MEL Location: [address] 1 HPI - General General Date of Admission: [...] as Zofran 4 mg p.o. x 1. PFSH Medical History (Updated 11/08/22 @ 20:33 by [...] unclear chronicity: Admission platelet earlier in the pdb073, no comparison available, potentially related to acute [...] labs but unclear specific stage: Admission BUN/Cr 11/1.06, baseline renal function unclear but facility does [...] facility paperwork. Charges/Coding Visit Charges Inpatient E&M: 86591 Init Hosp L2 11/08/222036 <Electronically signed by Bridgett Villagomez MD> Cosigner Signature (if applicable): CC: FIELD REPRESENTATIVE/HEALTH EDUCATIONYanique Alvarez; Dr. Bridgett Villagomez MD~ Signed [facility] Work Phone: 1(146) 923-702608-09-2023 Discharge summary Author Jann Hoffmann [facility] November 08, 2022 10:56am Note Date/Time November 08, 2022 8:4 6am [facility] Medical Records Department [address] [place] [address] Emergency Department Summary 11/08/22 MR#: [id number] Acct: [id number] Name: SHOLA MARTINEZ Rep #:[id number] : 1950 72 From: Jann Hoffmann MD PCP: Jessica Alvarez FIELD REPRESENTATIVE/HEALTH EDUCATION-C Status: REG ER Location: ED HPI History [...] chest pain or difficulty breathing. No headaches. [facility] Medical History (Updated 11/08/22 @ 10:55 by [...] 88.3 H Lymph % (Auto) 5.4 L [place] Zandt % (Auto) 4.8 Eos % (Auto) 0.8 [...] Clarity Clear Urine pH 5.0 Ur Specific [place] 1.020 Urine Protein 15 H Urine Glucose [...] rhythm with a rate of 78. Normal MA and QTc intervals. Left axis deviation. No acute ST changes. Slight widening of the QRS with a nonspecific intraventricular conduction delay. Interpreted by emergency doctor Discharge Plan Triage Chief Complaint: General Illness ED Provider: Jann Hoffmann Dx/Rx/DC Orders Clinical Impression: Acute dehydration, Hyperbilirubinemia, Hyperglycemia, Nausea Instructions: Dehydration Primary Care Provider: Jessica Alvarez FIELD REPRESENTATIVE/HEALTH EDUCATION Referrals: Jessica Alvarez FIELD REPRESENTATIVE/HEALTH EDUCATION, FIELD REPRESENTATIVE/HEALTH EDUCATION-C [Primary Care Provider] - 3-5 Days Disposition Disposition: Assisted Living What to do if you have Problems For any increased pain, shortness of breath, bleeding, nausea or vomiting, chestpain, or any unexpected problems, contact your Primary Care Provider. Call [facility] ([phone]) or report to the closest Emergency Room. Call 911 if necessary. 11/08/22 1053 <Electronically signed by Jann Hoffmann MD> Cosigner Signature (if applicable): CC: FIELD REPRESENTATIVE/HEALTH EDUCATION-Florina CorderoJessica Zeny Antonio ~ Signed [facility] Work Phone: [phone]) 880-965301-29-2022 Hospital Discharge instructions Patient Education 04/30/2021 07:39:48 [...] wet, you can dry it with a language and literature division chair on a cool setting. You may [...] around cast becomes red, swollen, or irritated [id number] [employer]. [address] [place] [address]. All rights reserved. This information is not intended as a substitute for professional medical care. Always follow yourhealthcare professional's instructions. Follow Up Care 04/30/2021 07:20:30 With:DO ANIBAL NOLASCO DO Address: When:3-5 days [facility] 12-03-2021 Note. MICRO - Microbiology PROCEDURE: [...] Locations *1: This test was performed at: [facility], [address] [place] [address], [address] , [facility] ([place])03-04-2021 Note. MICRO - Microbiology PROCEDURE: Blood Culture [...] Locations *1: This test was performed at: [facility], [address] [place] [address], [facility] , [facility] ([place]02-28-2021 Hospital Discharge instructions Patient Education 02/28/2021 13:15:37 Nasal Fracture, Qncl-ya-Ajip Nasal Fracture A fracture is a break [...] minutes, 2 3 times a day. Take bmjv-tdr-amnfchg and prescription medicines only as told by [...] 12/26/2008 Document Revised: 08/20/2018 Document Reviewed: 08/20/2018 [employer] Patient Education 2020 [employer]. 02/28/2021 13:15:21 Fall Prevention and Home Safety, Hujx-kh-Wfqj Fall Prevention and Home Safety Falls cause [...] 01/13/2010 Document Revised: 09/17/2012 Document Reviewed: 06/18/2012 [facility] Patient Information 2015 [employer]. This information is not intended to replace advicegiven to you by your health care provider. Make sure you discuss any questions you have with your health care provider. Follow Up Care 02/26/2021 17:06:54 With:Follow up with primary care provider Address: When:3-5 days [facility] 11-28-2021 Note. MICRO - Microbiology PROCEDURE: [...] Locations *1: This test was performed at: [facility], [address] [place] [address], [facility] , [facility] ([place]02-27-2021 Note. MICRO - Microbiology PROCEDURE: Streptococcus Pneumoniae [...] Locations *1: This test was performed at: [facility], [facility] [place] [address], [address]- , [facility] ([place]02-27-2021 Evaluation + Plan noteExtracted from: Title:History and Physical Author:CROW CLIFFORD APRN-[employer] Date:02/27/21 1. COPD without exacerbation 2. Altered mental status 3. Frequent falls 4. History of COVID-19 5. Type 2 diabetes mellitus 6. HTN (hypertension) 7. CAD in [place] artery 8. CHIRAG (obstructive sleep apnea) 9. [...] 24 hours with anticipated discharge back to [facility] facility tomorrow. Hypertension continue home medications. SBP goal 140 or less. CAD Information from continue Imdur and Plavix CHIRAG no history of CPAP use. Chronic O2 via nasal cannula at 3 L/min. Comminuted nasal bone fracture status post fall. Supportive measures with analgesics, ice. Patient denies any pain or discomfort. Labs, diagnostics reviewed as noted in HPI or A/P. External records reviewed via [employer]. Code Status: Full code Clinically patient is improved today from time of admission. We will continue to closely monitor patient. Discussed with collaborating physician, Dr. Au This document was transcribed using a voice recognition software and may contain typographical errors. Diagnostic Tests Pending * Theophylline Level Panel 03/01/21 [facility] 11-22-2021 NoteHNO ID: [id number] Author: Hammad Newton RN Service: ? Author Type: Registered Nurse Type: Progress Notes Filed: 02/21/2021 2:07 PM Note Text: COVID COMMUNITY MONITORING PROGRAM Provider Action/FYI: Did not contact patient. Not appropriate for COVID monitoring as patient currently in facility. Hammad Newton RN February 21, 2021 2:07 [facility]11-22-2021 NotePatient Outreach (QAINDP) SHOLA MARTINEZ ([id number]) 1950 M Date Time Provider Department 02/21/21 [facility] During your visit today, we recorded the following information about you: Hammad Newton RN 02/21/2021 2:07 PM Signed COVID COMMUNITY MONITORING PROGRAM Provider Action/FYI: Did not contact patient. Not appropriate for COVID monitoring as patient currently in facility. Hammad Newton RN February 21, 2021 2:07 PM Allergies As of Date: 02/21/2021 (No Known Allergies) Date Reviewed: 02/17/2021 Reviewed by: Jalen Cunningham, RN - Fully Assessed Reason for Visit: [...] 02/15/2021 Encounter Status:Closed by HAMMAD NEWTON on 02/21/21[facility]11-19-2021 NoteHNO ID: [id number] Author: Lis Garcia RN Service: Nursing Author Type: Registered Nurse Type: Nursing Progress Note Filed: 02/18/2021 5:10 PM Note Text: Report called to [facility]11-19-2021 NoteHNO ID: [id number] Author: Loren Muir RN Service: Care Management Author Type: Registered Nurse Type: Care Mgt Progress Note Filed: 02/18/2021 1:35 PM Note Text: CARE MANAGEMENT DISCHARGE NOTE SERVICE DATE: 02/18/2021 SERVICE TIME: 1:32 PM LOS: 3 days Admission Date: 02/14/2021 DISCHARGE ARRANGEMENT (list agency and phone number) Discharge Arrangement: Prison Facility Was an expedited discharge program used?: No Provider Name: [facility] CAREGIVER ASSESSMENT: Caregiver is ready, willing and able to meet the patient's needs as recommended by the inter-professional team:: Yes Does the patient have an acute stroke diagnosis, or has the patient had a stroke during this admission?: No Patient's transition needs and plan for meeting these needs: SNF HANDOFF COMMUNICATION: TRANSPORTATION ARRANGEMENTS: Transportation Arrangements: Ambulance/[facility] [employer] Agency and Phone #:: [facility] ( [facility] ) [phone] / [phone] Date of Trip: 02/18/21 Time of Trip: 1700 Type of Service: BLS Non-emergency Is Patient Medicaid Pending?: No Discussion of financial coverage occurred with: 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 PT/OT recommending SNF, pt agreeable to [facility]. Precert completed, sent SNF 7000 and d/c summary. Pt will be going via cot from [facility] at 1700. Transport folder completed and on chart, RN notifed. Pt notified of d/c plans and agreeable. SIGNATURE: Loren Muir RN PATIENT NAME: Shola Martinez DATE: February 18, 2021 TIME: 1:32 PM PAGER/CONTACT #: [phone]21 NoteHNO ID: [id number] Author: Carmina Rodriguez RPh Service: Pharmacy Author [...] at this time from Discharge Medication List. Carminafamilia Rodriguez [facility] February 18, 2021 1:20 PM Pager: [phone] 02/18/2021 1:20 PM Medication List START taking [...] FLOMAX TRADJENTA 5 mg Tab Generic drug: [facility]-19-2021 NoteHNO ID: [id number] Author: Lis Garcia RN Service: Nursing Author Type: Registered Nurse Type: Nursing Progress Note Filed: 02/18/2021 8:38 AM Note Text: Dr Ellis notified patient requesting something for [facility]11-18-2021 NoteHNO ID: [id number] Author: Renny Tenorio DO Service: Hospital Medicine Author Type: Physician Type: Progress Notes Filed: 02/17/2021 5:16 PM Note Text: DEPARTMENT OF HOSPITAL MEDICINE PROGRESS NOTE SERVICE DATE: 02/17/2021 SERVICE TIME: 5:13 PM Hospital Medicine/Primary Attending: Renny Tenorio DO NIGHT AND WEEKEND COVERAGE: After 7pm please page [phone] CHIEF COMPLAINT: weakness SUBJECTIVE: Pt seen and [...] this note may have been generated using [employer] voice recognition software. Reasonable efforts were made to correct any dictation erro (more content not included)...[facility] 02-17-2021 NoteHNO ID: [id number] Author: Loren Muir RN Service: Care Management Author Type: Registered Nurse Type: Care Mgt Progress Note Filed: 02/17/2021 3:05 PM Note Text: CARE MANAGEMENT PROGRESS NOTE SERVICE DATE: 02/17/2021 SERVICE TIME: 3:01 PM LOS: 2 days Chart reviewed. PT/OT recs are for SNF, pt is agreeable. [facility] is able to accept and is foc. Precert has been started, agreeable to start now. Pt will need cot at d/c. CM to follow. SIGNATURE: Loren Muir RN PATIENT NAME: Shola Martinez DATE: February 17, 2021 TIME: 3:01 PM PAGER/CONTACT #: [phone] Center11-17-2021 NoteHNO ID: [id number] Author: Renny Tenorio DO Service: Hospital Medicine Author Type: Physician Type: Progress Notes Filed: 02/16/2021 1:43 PM Note Text: DEPARTMENT OF HOSPITAL MEDICINE PROGRESS NOTE SERVICE DATE: 02/16/2021 SERVICE TIME: 1:33 PM Hospital Medicine/Primary Attending: Renny Tenorio DO NIGHT AND WEEKEND COVERAGE: After 7pm please page [phone] CHIEF COMPLAINT: weakness SUBJECTIVE: Pt seen and [...] this note may have been generated using [employer] voice recognition software. Reasonable efforts were made to correct any dictation errors that resulted due to the (more content not included)...[facility]11-17-2021 NoteHNO ID: [id number] Author: Lis Garcia RN Service: Nursing Author Type: Registered Nurse Type: Nursing Progress Note Filed: 02/16/2021 12:13 PM Note Text: Multiple attempts for iv unsuccessful Rig Superintendent to attempt as soon as possibleMaine [facility] Center11-17-2021 NoteHNO ID: [id number] Author: Loren Muir RN Service: Care Management Author Type: Registered Nurse Type: Care Mgt Initial Assessment Filed: 02/16/2021 11:46 AM Note Text: CARE MANAGEMENT: ASSESSMENT AND DISCHARGE PLAN SERVICE DATE: February 16, 2021 SERVICE TIME: 11:41 AM PRIMARY CARE PHYSICIAN: Danie Sawyer MD ADMISSION STATUS: Inpatient Needs Prior to Discharge: To Be Determined;Desat Study;Equipment Delivery;OT/PT Evaluation MEDICAL: [employer] MEDICARE ASSURE HMO D 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 Last discharge within 30 days: No Advance Directive: Current Advance Directive: None Tomographic Tech Attempted to Assist with AD Completion: Yes [...] Cane;Walker;Wheelchair Has the Patient Been in a Prison Facility in the Past 30 days?: No SOCIAL: Living Arrangements: Home Lives With: Alone Primary Contact: Extended Emergency Contact Information Primary Emergency Contact: BradenMarge Mobile Relation: Sister Secondary Emergency Contact: JenniferJessica [place] Relation: Relative Supportive Patient Contact:: Yes Contact [...] Completely I feel financially burdened by my gve-qa-tcbcza expenses for my prescription medication:: 0 - Disagree Completely Risk Score: 0 Patient is categorized as: Low risk < 2 Are you interested in bedside delivery of your medications? No Is Patient Psychosocially Complex?: No ASSESSMENT AND PLAN: Medical Needs: Medical Needs: None Psychosocial Needs: Psychosocial Needs: None FREEDOM OF CHOICE EXPLAINED: Marlin of Choice Given: No Reason Not Given: Unable to complete with this assessment - revisit POTENTIAL TRANSITION PLANS To Be Determined Pt is from home alone +DME, +PCP, + RX, pt uses a wheelchair to get around apartment and is active with [facility] at home. Will send a return referral to [facility] home care. Pt is on 2L NC will send a referral to [facility], will need script and ambulatory at d/c. No remdesivir at this time. Pt states he will need transport at d/c. He has a ramp into apartment complex and elevator to his nuno. CM to follow clinical progress. SIGNATURE: Loren Muir RN PATIENT NAME: Shola Martinez DATE: February 16, 2021 TIME: 11:41 AM PAGER/CONTACT #: [phone] Center11-16-2021 NoteHNO ID: [id number] Author: Ashli Parson (Air Pollution Analyst) Service: Pharmacy Author Type: Sports Instructor Type: Plan of Care Filed: 02/15/2021 11:27 AM Note Text: PHARMACY MEDICATION REVIEW Patient Name: Shola Martinez : 1950 The following medications were updated within the MATERIALS SCHEDULER medication list: Medications ADDED to MATERIALS SCHEDULER medication list albuterol HFA (PROVENTIL HFA, VENTOLIN [...] 24 hr tablet ? Medications CHANGED on MATERIALS SCHEDULER medication list ? Medications REMOVED from MATERIALS SCHEDULER medication list atorvastatin (LIPITOR) 40 mg tablet [...] medication history: Yes Medication history completed by: Sports Instructor: Ashli Parson (Air Pollution Analyst) Source of history: Patient: Reliability of source: Appears reliable, clearly identified: Medication name, Medication dose, Medication route and Medication frequency, Pharmacy records: [facility] [phone] and [facility] records Medication nonadherence identified: No barriers noted Reconciliation completed: No, pharmacist not yet reviewed Patient interested in Bedside Delivery Services or using OP Pharmacy at discharge? No Preferred outpatient pharmacy: [place] [address] [phone] [facility] [phone] [id number] Allergies: No Known Allergies Prior to Admission medications as of 02/14/21 2241 Medication Sig Last Dose Taking albuterol HFA [...] hours as needed. Indications: PAIN Yes Ashli aPrson (Air Pollution Analyst) [id number] 02/15/2021[facility]11-16-2021 Influenza virus A and B RNA and SARS-CoV-2 (COVID-19) N gene panel LILLIAN+probe (Resp)COVID 19 RESULT: SARS-CoV-2 (Agent of COVID-19) Detected by PCR. This test has been authorized by FDA under an Emergency Use Authorization (EUA). INFLUENZA A PCR: Negative for Influenza A by RT-PCR INFLUENZA B PCR: Negative for Influenza B by RT-PCRMaine Medical CenterComment on above: Performed By: #### [id number] ####[facility] LABORATORYCLIA [id number] [place] [address] [place] [id number] NoteHospitalist Discharge Summary Shola Martinez : 1950 [...] Community acquired pneumonia 04/2016 ? Diabetic neuropathy ([facility]) ? Dizziness after head injury 05/2013 ? Hx of blood clots ? Hyperlipidemia ? Hypertension ? Morbid obesity ([facility]) 05/21/2018 ? Recurrent UTI 02/03/2018 ? Sepsis due to gram-negative UTI ([facility]) 12/11/2017 ? Sleep apnea ? Type [...] Discharge Medications: Shola Martinez Home Medication Instructions PEREZ:[id number] Printed on:02/01/21 3379 Medication Information Accu-Chek Softclix Lancets MISC TEST [...] wheelchair OZEMPIC, 0.25 O (more content not included)...[facility]11-02-2021 Hospital Discharge instructions* Discharge Instr - Activity* [...] at most local grocery stores, pharmacies, and [employer]-stores. If you have any questions about your [...] for further instructions Favian Trevizo MD PhD [address] [facility] / [facility] [id number] RED ZONE: Medical Alert Severe or unrelieved [...] Where can you learn more? Go to [email or web address] and sign in to your Ex[employer] account. Enter Q823 in the Search Health Information box to learn more about Dizziness: Care Instructions. If you do not have an account, please click on the Sign Up Now link. Current as of: September 30, 2020 Content Version: 13.0 [employer]. Care instructions adapted under license by [employer]. If you have questions about a medical condition or this instruction, always ask your healthcare professional. [employer] disclaims any warranty or liability for your use of this information. * Attachments The following attachments cannot be sent through [employer] Everywhere. * Dizziness (Micronesian) * Lightheadedness or Faintness (Micronesian) documented in this [facility] Work Phone: 1(986) 383-795811-02-2021 History of Present illness Narrative* Elyse Whitney MD - 02/01/2021 8:33 AM EDT Images from the original note were not included. Hospitalist Progress Note 02/01/2021 8:33 AM [phone]: Please page me ([phone]) for patient care issues. [phone]: Please page [facility] night Hospitalist for any issues. Subjective: Admit Date: 01/30/2021 PCP: Favian Trevizo MD PhD Room#: 257/257 Interval History: No overnight issues. Patient lying [...] artery disease) Cataract Chronic obstructive pulmonary disease ([facility]) 08/20/2018 CKD (chronic kidney disease) stage 2, GFR 60-89 ml/min 09/12/2019 Community acquired pneumonia 04/2016 Diabetic neuropathy ([facility]) Dizziness after head injury 05/2013 Hx of blood clots Hyperlipidemia Hypertension Morbid obesity ([facility]) 05/21/2018 Recurrent UTI 02/03/2018 Sepsis due to gram-negative UTI ([facility]) 12/11/2017 Sleep apnea Type II or [...] mg SubCUTAneous Daily LABS: CBC: Recent Labs 01/30/21181302/01/21 0303 WBC 6.3 5.2 RBC 4.82 4.69 HGB 14.6 14.0 HCT 41.6 41.7 MCV 86.4 89.0 RDW 12.7 12.0 PLT 114* 107* BMP: Recent Labs 01/30/214 02/01/21 0303 NA 134* 134* K 4.1 3.8 [...] strength of b/l upper and lower extremities. Pocket Operator strength equal bilaterally. Sensation intact in UE [...] of Hospitalist Medicine Inpatient Medical Services PAGER: [phone] * Yolanda Hooker DTR - 02/01/2021 7:31 [...] of blood clots, Hyperlipidemia, Hypertension, Morbid obesity ([facility]), Recurrent UTI, Sepsis due to gram-negative UTI ([facility]), Sleep apnea, Type II or unspecified [...] with wc) Transfer Assistance: Needs assistance Active Documentation Spec: No Objective Vision: Impaired Vision Exceptions: Wears [...] 01/31/2021 10:02 AM EDT Physical Therapy Facility/Department: [facility] Initial Assessment NAME: Shola Martinez : 1950 [...] by increased lightheadedness and decreased safety. Recommend [facility] PT and assist PRN upon discharge. [...] GFR 60-89ml/min, Community acquired pneumonia, Diabetic neuropathy ([facility]), Dizziness, Hx of blood clots, Hyperlipidemia, Hypertension, Morbid obesity ([facility]), Recurrent UTI, Sepsis due to gram-negative UTI ([facility]), Sleep apnea, Type II or unspecified [...] with wc) Transfer Assistance: Needs assistance Active Documentation Spec: No Cognition Cognition Overall Cognitive Status: WFL [...] In 900 (co-eval with OT) Time Out 09 Minutes 18 Carmen Christensen PT * Elyse Whitney MD - 01/31/2021 8:50 AM EDT Images from the original note were not included. Hospitalist Progress Note 01/31/2021 8:50 AM [phone]: Please page me ([phone]) for patient care issues. [phone]: Please page [facility] night Hospitalist for any issues. Subjective: Admit Date: 01/30/2021 PCP: Favian Trevizo MD PhD Room#: 37/37 Interval History: No overnight issues. Patient lying [...] 09/12/2019 Community acquired pneumonia 04/2016 Diabetic neuropathy ([facility]) Dizziness after head injury 05/2013 Hx of blood clots Hyperlipidemia Hypertension Morbid obesity ([facility]) 05/21/2018 Recurrent UTI 02/03/2018 Sepsis due to gram-negative UTI ([facility]) 12/11/2017 Sleep apnea Type II or [...] strength of b/l upper and lower extremities. Pocket Operator strength equal bilaterally. Sensation intact in UE [...] of Hospitalist Medicine Inpatient Medical Services PAGER: [phone] * Ruben Leslie - 01/31/2021 7:55 AM EDT Speech Language Pathology Patient passed the Nursing Swallowing Screening and is on a Regular diet. Completed speech orders per stroke protocol. Please reconsult as necessary. Ruben Leslie Student Speech-Language Pathologist documented in this encounterSUMMA Work Phone: [phone]) 368-938907-08-2021 NoteDischarge Summary Shola Martinez : 1950 ADMIT [...] neck, echocardiogram CONSULTANTS: Neurology RECOMMENDED NEXT STEPS: [facility]. Continue aspirin and plavix. Statin increased. [...] DISCHARGE MEDICATIONS: Shola Martinez Home Medication Instructions PEREZ:[id number] Printed on:10/07/20 6005 Medication Information Accu-Chek Softclix Lancets MISC TEST [...] Complexity: follow up within 7-14 calendar days (05504) [] Severe Complexity: follow up within 7 calendar days (52749) FOLLOW UP TESTING, PENDING RESULTS OR REFERRALS AT TRANSITIONAL CARE VISIT: [] Yes [] No PENDING STUDIES: No DISPOSITION: Home FACILITY/HOME CARE AGENCY NAME: Follow up with Favian Trevizo MD PhD [address] [facility] [phone] Schedule an appointment as soon as possible for a visit in 1 week INSTRUCTIONS TO MA/SW: Please call patient on day after discharge (must document patient contacted within 2 business days of discharge). FOLLOW UP QUESTIONS FOR MA/SW: 1. Did you get medications filled and taking them as instructed from (more content not included)...[facility]* Diagnosis Lightheadedness- Primary Dizziness and giddiness Lightheaded Dizziness and giddiness documented in this encounter [employer] Work Phone: Evaluation noteNo assessment information available [facility] Work Phone: Evaluation note* Diagnosis Onset Date Resolution Status Adult failure to thrive acut e [facility] Work Phone: Hospital course Narrative No data available for this section [facility] Hospital Discharge instructions No data available for this section [facility] Progress note No data available for this section [facility] Summary Purpose Family History No Family History Records Found Relationship Condition Age at Onset Recorded Date/T wilmer mother Diabetes mellitus Unknown Malignant neoplasm Unknown father Diabetes mellitus Unknown Advance Directives No Advanced Directives Records FoundDocuments on File Type Date Recorded 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 Advance Directives and Living Will Power of Fuel Manager Latest Code Status on File Code Status Date Activated Date Inactivated Comments Full Code 11/30/2018 3:23 PM Full Code 08/27/2018 10:38 AM 08/27/2018 2:59 PM Full Code 08/27/2018 7:43 AM 08/27/2018 10:38 AM Full Code 07/30/2018 3:42 PM 07/30/2018 8:09 PM Full Code 07/30/2018 10:55 AM 07/30/2018 3:42 PM Documents on File Type Date Recorded 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 Advance Directives and Living Will Power of Fuel Manager Latest Code Status on File Code Status [...] Documents on File Type Date Recorded 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 ACP-Advance Directive ACP-Power of Fuel Manager Latest Code Status on File Code Status [...] Documents on File Type Date Recorded 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 Advance Directive(s) 02/14/2021 11:43 PM Advance Directive Response Recorded Date/ Time Living Will No October 03, 2022 6 :56am Power of Fuel Manager No October 03, 2022 6:56am Advance Directive Response Recorded Date/ Time Living Will No November 08, 2022 4:59pm Power of Fuel Manager No November 08 4:59pm Advance Directive Response Recorded Date/ Time Living Will No November 08, 2022 9:12pm Power of Fuel Manager No November 08 9:12pm Discharge Instructions * Pharmacy* Kaley Gonzalez [facility] - 12/03/2018 8:33 AM EDT * Discharge [...] Agent's Name Healthcare Agent's Phone Number 11/30/18 1864 No, patient does not have an advance directive for healthcare treatment -- -- -- -- -- Admitting Physician: Man Hardin DO PCP: Favian Trevizo MD PhD Discharging Nurse: Discharging Hospital Unit/Room#: 454/4541 Discharging Unit Phone Number: Emergency Contact: Extended Emergency Contact Information Primary Emergency Contact: lily tuttle [facility] Relation: Brother/Sister Past Surgical History: Past Surgical History: Procedure Laterality Date APPENDECTOMY 1989 CATARACT REMOVAL CHOLECYSTECTOMY 08/2015 CORONARY ANGIOPLASTY 09/2016 EYE SURGERY Left 08/27/2018 FOOT SURGERY Left great toe and next toe removed HERNIA REPAIR 1991 OTHER SURGICAL HISTORY Right 07/30/2018 PHACOemulisification pupilloplasty malyugin right posterior chamber intraocular lens TONSILLECTOMY 1955 Immunization History: Immunization History Administered Date(s) Administered Pneumococcal Conjugate 13-valent (Wwivamz21) 08/10/2016 Pneumococcal Polysaccharide ([id number]) 07/22/2012, 10/16/2017 Td, unspecified formulation 08/31/1992 Tdap (Boostrix, Adacel) 05/27/2007, 01/17/2018 Active Problems: Patient Active Problem List Diagnosis Code Weakness generalized R53.1 Diabetic neuropathy ([facility]) E11.40 Diabetes mellitus type 2, uncontrolled ([facility]) E11.65 Constipation K59.00 Hyperlipidemia associated with type 2 diabetes mellitus ([facility]) E11.69, E78.5 Diabetes mellitus type 2 without retinopathy ([facility]) E11.9 Senile cataracts of both eyes H25.9 Blepharitis of both eyes H01.003, H01.006 Blurred vision, bilateral H53.8 Myopia of both eyes with astigmatism and presbyopia H52.13, H52.203, H52.4 Heterozygous MTHFR mutation C677T ([facility]) E72.12 Benign prostatic hyperplasia with incomplete bladder emptying N40.1, R39.14 CHIRAG (obstructive sleep apnea) G47.33 Essential hypertension I10 History of DVT (deep vein thrombosis) Z86.718 History of amputation of toe ([facility]) Z89.429 Morbid obesity ([facility]) E66.01 Chronic respiratory failure with hypoxia ([facility]) J96.11 Chronic diastolic heart failure ([facility]) I50.32 Dermatochalasis of both upper eyelids H02.831, H02.834 Small pupil H57.03 Lung nodule, multiple R91.8 Small pupil H57.03 Chronic obstructive pulmonary disease ([facility]) J44.9 Pneumonia J18.9 Isolation/Infection: Isolation No Isolation [...] Assisted Dressing Assisted Toileting Independent Feeding Independent Skid Machine Operator Independent Med Delivery whole Wound Care Documentation [...] Readmission: 14 Discharging to Facility/ Agency Name: [address] [address] Dialysis Facility (if applicable) Name: Address: Dialysis Schedule: Phone: Fax: Automobile Damage Field Appraiser/State Superintendent Of Schools signature: ICIAN SECTION Prognosis: Good Condition at Discharge: Stable Rehab Potential (if transferring to Rehab): Good Recommended Labs or Other Treatments After Discharge: CBC,BMP in one week Physician Certification: I certify the above information and transfer of Shola Martinez is necessary for the continuing treatment of the diagnosis listed and that he requires Prison Facility for less 30 days. Update Admission H&P: No change in H&P PHYSICIAN SIGNATURE: documented in this encounter* Attachments The following attachments cannot be sent through Care Everywhere. * Head Injury: Closed: General Info (Micronesian) documented in this encounter* Discharge Instr - Lab* Kristy Hooker LPN - 09/14/2019 12:52 PM EDT Your physician has ordered skilled home care services for you. Your home care will be provided by: [facility] [phone] Scheduling [phone] * Discharge Instr - DAMON* Praneeth Reyes MD - 09/14/2019 12:12 PM EDT Continuity of Care Form Patient Name: Shola Martinez : 1950 Admit date: 09/12/2019 Discharge date: Code Status Order: Full Code Advance Directives: Advance Care Flowsheet Documentation Date/Time Healthcare Directive Type of Healthcare Directive Copy in Chart Healthcare Agent Appointed Healthcare Agent's Name Healthcare Agent's Phone Number 09/12/191944 No, patient does not have an advance directive for healthcare treatment -- -- -- -- -- Admitting Physician: Shea Aguilar MD PCP: Favian Trevizo MD PhD Discharging Nurse: Discharging Hospital Unit/Room#: 456/4561 Discharging Unit Phone Number: Emergency Contact: Extended Emergency Contact Information Primary Emergency Contact: lily tuttle [facility] Relation: Brother/Sister Past Surgical History: Past Surgical History: Procedure Laterality Date APPENDECTOMY 1989 CATARACT REMOVAL CHOLECYSTECTOMY 08/2015 CORONARY ANGIOPLASTY 09/2016 EYE SURGERY Left 08/27/2018 FOOT SURGERY Left great toe and next toe removed HERNIA REPAIR 1991 OTHER SURGICAL HISTORY Right 07/30/2018 PHACOemulisification pupilloplasty malyugin right posterior chamber intraocular lens TONSILLECTOMY 1956 Immunization History: Immunization History Administered Date(s) Administered Influenza, High Dose (Fluzone 65 yrs and older) 01/09/2019 Pneumococcal Conjugate 13-valent (Itrevfg46) 08/10/2016 Pneumococcal Polysaccharide ([id number]) 07/22/2012, 10/16/2017 Td, unspecified formulation 08/31/1992 Tdap (Boostrix, Adacel) 05/27/2007, 01/17/2018, 09/02/2019 Active Problems: Patient Active Problem List Diagnosis Code Weakness generalized R53.1 Diabetic neuropathy ([facility]) E11.40 Diabetes mellitus type 2, uncontrolled ([facility]) E11.65 Constipation K59.00 Hyperlipidemia associated with type 2 diabetes mellitus ([facility]) E11.69, E78.5 Blepharitis of both eyes H01.003, H01.006 Blurred vision, bilateral H53.8 Myopia of both eyes with astigmatism and presbyopia H52.13, H52.203, H52.4 Heterozygous MTHFR mutation C677T ([facility]) E72.12 Benign prostatic hyperplasia with incomplete bladder emptying N40.1, R39.14 CHIRAG (obstructive sleep apnea) G47.33 Essential hypertension I10 UTI (urinary tract infection) N39.0 History of DVT (deep vein thrombosis) Z86.718 History of amputation of toe ([facility]) Z89.429 Class 2 severe obesity due to excess calories with serious comorbidity and body mass index (BMI) of37.0 to 37.9 in adult ([facility]) E66.01, Z68.37 Chronic respiratory failure with hypoxia ([facility]) J96.11 Chronic diastolic heart failure ([facility]) I50.32 Dermatochalasis of both upper eyelids H02.831, H02.834 Lung nodule, multiple R91.8 Small pupil H57.03 Chronic obstructive pulmonary disease ([facility]) J44.9 Pseudophakia of both eyes Z96.1 [...] Assisted Dressing Assisted Toileting Assisted Feeding Independent Skid Machine Operator Dependent Med Delivery whole Wound Care Documentation [...] Readmission: 0 Discharging to Facility/ Agency Name: [facility] Address: [address] [place] [address] [place] [address] Dialysis Facility (if applicable) Name: Address: Dialysis Schedule: Phone: Fax: Automobile Damage Field Appraiser/State Superintendent Of Schools signature: PHYSICIAN SECTION Prognosis: Good Condition at Discharge: Stable Rehab Potential (if transferring to Rehab): Good Recommended Labs or Other Treatments After Discharge: PT/OT atleast three times daily. BMP/CBC on 09/19/2019 Physician Certification: I certify the above information and transfer of Shola Martinez is necessary for the continuing treatment of the diagnosis listed and that he requires Prison Facility for less 30 days. Update Admission [...] Everywhere. * Coronavirus Disease (COVID-19): General Info ([place]ronesian) * Coronavirus Disease (COVID-19): Isolation ([place]ronesian) documented in this encounter* Attachments The following attachments cannot be sent through Care Everywhere. * Fall Prevention ([place]ronesian) * Head Injury: Closed: General Info (Micronesian) * Back: Strain (Micronesian) documented in this encounter History of Present Illness * Jaky Anne RCP - 12/04/2018 12:24 PM EDT No home O2 done, PT to a SNF. * Cindy Barrera, RD, LD - 12/03/2018 3:27 PM EDT [...] Accumulation-Moderate to severe fluid accumulation, Extremities 6. Pocket Operator Strength-Not measured Nutrition Risk Level: High Nutrient Needs: Estimated Daily Total Kcal: 9786-4434 kcals(25-30) Estimated Daily Protein (g): 86-103(1-1.2) Estimated [...] % Weight Change: , no wt loss [place] Body Wt: 190 lb (86.2 kg), % [place] Body 157% BMI Classification: BMI 35.0 - [...] appropriate. Date of Service: 12/03/2018 Discharge Recommendations: Subacute/Prison Facility OT Equipment Recommendations Equipment Needed: No [...] of blood clots, Hyperlipidemia, Hypertension, Morbid obesity ([facility]), Recurrent UTI, Sepsis due to gram-negative UTI ([facility]), Sleep apnea, Type II or unspecified [...] household distances ) Transfer Assistance: Independent Active Documentation Spec: No Patient's Documentation Spec Info: SCAT Occupation: Retired Objective Vision: Within [...] Toileting: Moderate assistance(MIN A for transfer to [facility], assist for all parts due [...] will complete functional transfers and mobility at [facility] with MOD INDEP. Short term goal 3: Pt will complete toileting tasks at [facility] with MOD INDEP. Short term [...] 12/03/2018 11:59 AM EDT Physical Therapy Facility/Department: [facility] 4S TELEMETRY Initial Assessment NAME: Shola Martinez : 1950 Date of Service: 12/03/2018 Discharge Recommendations: Continue to assess pending progress, Subacute/Prison Facility PT Equipment Recommendations Equipment Needed: No [...] of blood clots, Hyperlipidemia, Hypertension, Morbid obesity ([facility]), Recurrent UTI, Sepsis due to gram-negative UTI ([facility]), Sleep apnea, Type II or unspecified [...] household distances ) Transfer Assistance: Independent Active Documentation Spec: No Patient's Documentation Spec Info: SCAT Occupation: Retired Objective Observation/Palpation Posture: [...] for falls, Nurse notified, Left in bed AM-PAC Score [facility] Inpatient Mobility Raw Score : 15 (12/03/18 1151) [facility] In[facility] T-Scale Score : 39.45 (12/03/18 1151) Mobility Inpatient CMS 0-100% Score: 57.7 (12/03/18 115) Mobility Inpatient CMS G-Code Modifier : CK (12/03/18 115) [facility] Mobility Inpatient How much difficulty turning [...] 3-5 steps with a railing?: A Lot [facility] Inpatient Mobility Raw Score : 15 [facility] Inpatient T-Scale Score : 39.45 Mobility Inpatient [...] EDT Hospitalist Progress Note 12/02/2018 1:16 PM [phone]: Please page me @ [phone] for patient care issues. [phone]: Please page [facility] night Hospitalist for any [...] Meléndez MD - 12/01/2018 9:35 AM EDT [facility] Progress Note 12/01/2018 09:35 AM Name: [...] I wore an N95 MASK, FACE SHIELD [phone]: Please page me @ [phone] for patient care issues. [phone]: Please page [facility] night Hospitalist for any [...] artery disease) Cataract Chronic obstructive pulmonary disease ([facility]) 08/20/2018 CKD (chronic kidney disease) stage 2, GFR 60-89 ml/min 09/12/2019 Community acquired pneumonia 04/2016 Diabetic neuropathy ([facility]) Dizziness after head injury 05/2013 Hx of blood clots Hyperlipidemia Hypertension Morbid obesity ([facility]) 05/21/2018 Recurrent UTI 02/03/2018 Sepsis due to gram-negative UTI ([facility]) 12/11/2017 Sleep apnea Type II or unspecified type diabetes mellitus without mention of complication, not stated as uncontrolled Weakness generalized after head injury 05/2013 Plan : [facility] [place], done with abx, encouraged oral intake, COVID test negative All test and lab results reviewed Consult notes reviewed Am labs, replace lytes prn PT/OT -DVT prophylaxis: [x] Lovenox [] Heparin [] SCDs [x] Encourage ambulation [] Already on Anticoagulation Advance Directive: Full Code Discharge planning: TBD SHEA AGUILAR MD, MD Division of Hospitalist Medicine Inpatient Medical Services This report was created using the Biocontrol Speaking voice- activated system. Despiteprompt dictation and careful editorial review, there may be subtle contextual errors in this report, due to misrecognition of the spoken word. * Padmini Palmer, PT - 09/15/2019 9:39 AM EDT Physical Therapy Facility/Department: [facility] TELEMETRY Daily Treatment Note NAME: Shola Martinez : 1950 Date of Service: 09/15/2019 Discharge Recommendations: Continue to assess pending progress, Subacute/Prison Facility(if patient goes home [facility] PT) Assessment Assessment: Pt demonstrated need [...] GFR 60-89ml/min, Community acquired pneumonia, Diabetic neuropathy ([facility]), Dizziness, Hx of blood clots, Hyperlipidemia, Hypertension, Morbid obesity ([facility]), Recurrent UTI, Sepsis due to gram-negative UTI ([facility]), Sleep apnea, Type II or unspecified [...] of activity with poor follow thru AM-PAC [facility] Mobility Inpatient How much difficulty turning over [...] climbing 3-5 steps with a railing?: Total [facility] Inpatient Mobility Raw Score : 15 [facility] Inpatient T-Scale Score : 39.45 Mobility [...] ex) Jessica Bose PTA (completed treatment) (updated [facility]) * Shea Aguilar MD - 09/14/2019 1:10 PM EDT Hospitalist Progress Note 09/14/2019 1:10 PM Throughout the encounter I wore an N95 MASK, FACE SHIELD [phone]: Please page me @ [phone] for patient care issues. [phone]: Please page [facility] night Hospitalist for any issues. Subjective: [...] 09/12/2019 Community acquired pneumonia 04/2016 Diabetic neuropathy ([facility]) Dizziness after head injury 05/2013 Hx of blood clots Hyperlipidemia Hypertension Morbid obesity ([facility]) 05/21/2018 Recurrent UTI 02/03/2018 Sepsis due to gram-negative UTI ([facility]) 12/11/2017 Sleep apnea Type II or unspecified type diabetes mellitus without mention of complication, not stated as uncontrolled Weakness generalized after head injury 05/2013 Plan : Patient feeling better, continue ceftriaxone for now, elevated urine sensitivities All test and lab results reviewed Consult notes reviewed Am labs, replace lytes prn PT/OT, placement when [facility] -DVT prophylaxis: [] Lovenox [] Heparin [] SCDs [x] Encourage ambulation [] Already on Anticoagulation Advance Directive: Full Code Discharge planning: TBD SHEA AGUILAR MD, MD Division of Hospitalist Medicine Inpatient Medical Services This report was created using the Biocontrol Speaking voice- activated system. Despiteprompt dictation and [...] appropriate. Date of Service: 09/14/2019 Discharge Recommendations: Subacute/Prison Facility Assessment Performance deficits / Impairments: Decreased [...] Recurrent UTI, Sepsis due to gram-negative UTI (HCC), Sleep apnea, Type II or unspecified type [...] Ambulation Assistance: Independent(FWW) Transfer Assistance: Independent Active Documentation Spec: No Objective Vision: Within Functional Limits Hearing: [...] BSC with instability, however, no true LOB. DIRECTOR CHECK reported ambulating pt to bathroom yesterday, however, pt with significantly impaired balance in which pt had to be wheeled from bathroom with w/c. Toilet Transfers Toilet - Technique: Ambulating Equipment Used: Standard bedside commode Toilet Transfer: Minimal assistance Toilet Transfers Comments: at w- pt required VC for [...] in collaboration with the pt. AM-PAC Score [facility] Inpatient Daily Activity Raw Score: 21 (09/14/19 1235) [facility] Inpatient ADL T-Scale Score : 44.27 (09/14/19 1235) ADL Inpatient CMS 0-100% Score: 32.79 (09/14/19 1235) ADL Inpatient CMS G-Code Modifier : CJ (09/14/19 123) Goals Short term goals Time Frame [...] 1057 Time Out 1115 Minutes 18 Vanessa Frantz, OT * Clair Stauffer - 09/14/2019 9:08 AM EDT Nutrition rescreen completed. Patient assigned a level 1. * Geo Hoffmann, PT - 09/13/2019 1:41 PM EDT Physical Therapy Facility/Department: [facility] 4S TELEMETRY Initial Assessment NAME: Shola Martinez : 1950 HAVING REVIEWED THIS PATIENT TREATMENT AND GOALS ,I CERTIFY THAT THE PLAN OF CARE IS MEDICAL NECESSARY AND AND APPROPRIATE. Date of Service: 09/13/2019 Discharge Recommendations: Continue to assess pending progress, Subacute/Prison Facility(if patient goes home [facility] PT) PT [...] GFR 60-89ml/min, Community acquired pneumonia, Diabetic neuropathy ([facility]), Dizziness, Hx of blood clots, Hyperlipidemia, Hypertension, Morbid obesity ([facility]), Recurrent UTI, Sepsis due to gram-negative UTI (HCC), Sleep apnea, Type II or unspecified type [...] Ambulation Assistance: Independent(FWW) Transfer Assistance: Independent Active Documentation Spec: No Cognition Cognition Overall Cognitive Status: WFL [...] Restraints Initially in place: No OutComes Score -[facility] Mobility Inpatient How much difficulty turning [...] climbing 3-5 steps with a railing?: Total [facility] Inpatient Mobility Raw Score : 18 [facility] Inpatient T-Scale Score : 43.63 Mobility Inpatient CMS 0-100% Score: 46.58 Mobility Inpatient CMS G-Code Modifier : CK [facility] Score [facility] Inpatient Mobility Raw Score : 18 (09/13/191340) [facility] Inpatient T-Scale Score : 43.63 (09/13/191340) Mobility [...] I wore an N95 MASK, FACE SHIELD [phone]: Please page me @ [phone] for patient care issues. [phone]: Please page [facility] night Hospitalist for any issues. Subjective: [...] 09/12/2019 Community acquired pneumonia 04/2016 Diabetic neuropathy ([facility]) Dizziness after head injury 05/2013 Hx of blood clots Hyperlipidemia Hypertension Morbid obesity ([facility]) 05/21/2018 Recurrent UTI 02/03/2018 Sepsis due to gram-negative UTI ([facility]) 12/11/2017 Sleep apnea Type II or [...] Services This report was created using the Biocontrol Speaking voice- activated system. Despiteprompt dictation and [...] (BMI) of 37.0 to 37.9 in adult ([facility]) UTI (urinary tract infection) due to Enterococcus Urinary tract infection, site not specified Vitamin D deficiency Unspecified vitamin D deficiency Chronic respiratory failure with hypoxia ([facility]) Chronic respiratory failure Diagnosis Subjective fever Diagnosis Closed head injury, initial encounter Fall, initial encounter Lumbar strain, initial encounter Reason for Referral Status Reason Specialty Diagnoses / Procedures Referred By Contact Referred To Contact Open Specialty Services Required Otolaryngology Diagnoses Injury of head, initial encounter Tyler Bermudez MD [address] [place] [address] [facility] [address] [place] [address] Scheduling Instructions [facility] [address] [place], [place] [address] F: [phone] Health Concerns Infection Onset Date Last Indicated [...] section and content) DATE CREATED AUTHOR 11/01/2017 [facility] DATE CREATED AUTHOR AUTHOR'S ORGANIZ ATION 09/08/2018 [facility] DATE CREATED AUTHOR AUTHOR'S ORGANIZ ATION 07/21/2020 [facility] DATE CREATED AUTHOR AUTHOR'S ORGANIZ ATION 03/06/2021 [facility] DATE CREATED AUTHOR AUTHOR'S ORGANIZ ATION 05/10/2021 [facility] DATE CREATED AUTHOR AUTHOR'S ORGANIZ ATION 05/24/2021 [facility] ([place]) DATE CREATED AUTHOR AUTHOR'S ORGANIZ ATION 06/03/2021 [facility] DATE CREATED AUTHOR AUTHOR'S ORGANIZ ATION 05/31/2024 [facility] Reason for Visit (unrecogniz ed section and content) Reason Comments Fatigue Nausea Reason Comments Fall Reason Comments Other Stated he saw Pres Cesar romano was in the hospital so he thought [...] or prosecute any alcohol or drug abuse patient.[facility] Center[facility] the event this information is protected by the Federal Confidentiality of Alcohol and Drug Abuse Patient Records regulations: The Federal rules restrict any use of the information to criminally investigate or prosecute any alcohol or drug abuse patient.[facility] Scheduled Active and Recently Administ ered Medications (unrecognized section and content) Medication Order 01/30/2021 01/31/2021 02/01/2021 0.9 % sodium chloride bolus (COMPLETED) 1,000 mL, IntraVENous, at 2,000 mL/hr, Administer over 0.5 Hours, ONCE, On 01/30/21 at 2045, For 1 dose 2048 (New Bag - Provider: Kirsten Noel, EMA)2118 (Stopped - Provider: Kirsten Noel, EMA) aspirin chewable tablet 81 mg 81 mg, Oral, DAILY, First dose on 01/31/21 at 0900 0918 (Given - Provider: Bhavani Amanda RN) 912 (Given - Provider: Cary Cintron, EMA) atorvastatin (LIPITOR) tablet 80 mg 80 mg, Oral, EVERY EVENING, First dose on Sun01/31/21 at 1800 0104 (Not Given - Provider: Adela Lopez RN - Reason: Patient/family refused)1800 (Due) cetirizine (ZYRTEC) tablet 5 mg 5 mg, Oral, DAILY, First dose on Sun01/31/21 at 0900, Substituted for Loratadine (CLARITIN). 917 (Given - Provider: Bhavani Amanda RN) 911 [...] Amanda RN) 912 (Given - Provider: Cary Cintron, EMA) losartan (COZAAR) tablet 25 mg 25 mg, Oral, EVERY MORNING, First dose on Sun01/31/21 at 0900 0919 (Given - Provider: Bhavani Amanda RN) 912 (Given - Provider: Cary Cintron, EMA) senna (SENOKOT) tablet 17.2 mg 17.2 mg (2 tablet), Oral, DAILY, First dose on Sun01/31/21 at 0900 0918 (Given - Provider: Bhavani Amanda RN)0922 (Canceled Entry - Provider: Bhavani Amanda RN - Comment: duplicate entry) 0913 (Given - Provider: Cary Cintron, RN) sodium chloride flush 0.9 % injection [...] 5-40 mL, IntraVENous, PRN, Line Care, Per Pattern Maker Programer Request, Starting on Sun01/31/21 at 0120, For 72 hours, May use order for Line Care after every IV line use and Agitated Saline Bubble Study. Administration for Bubble Study per chemical compounder helper request for only. Remove 1 mL 0.9% [...] Active Member Role Status Dates Jessica Alvarez FIELD REPRESENTATIVE/HEALTH EDUCATION, FIELD REPRESENTATIVE/HEALTH EDUCATION-C Primary Care Provider Act marie Team Status: Active Member Role Status Dates Jessica Alvarez FIELD REPRESENTATIVE/HEALTH EDUCATION, FIELD REPRESENTATIVE/HEALTH EDUCATION-C Primary Care Provider Act marie Dr. Yifan Meza , DO Emergency Provider Active Dr. Bridgett Villagomez MD Admit Provider, Other Provider Active Dr. Tanika Kunz MD Attending Provider, Other Prov ider Active Team Status: Inactive Member Role Status Dates Dr. Eduar Donahue , DO Attending Provider, Emergency P rovider Active Jessicanima Alvarez FIELD REPRESENTATIVE/HEALTH EDUCATION, FIELD REPRESENTATIVE/HEALTH EDUCATION-C Primary Care Provider Act marie Team Status: Inactive Member Role Status Dates Jessicanima Alvarez FIELD REPRESENTATIVE/HEALTH EDUCATION, FIELD REPRESENTATIVE/HEALTH EDUCATION-C Primary Care Provider Act marie Dr. Jann Hoffmann MD Emergency Provider Active Team Status: Inactive Member Role Status Dates Jessicanima Alvarez FIELD REPRESENTATIVE/HEALTH EDUCATION, FIELD REPRESENTATIVE/HEALTH EDUCATION-C Primary Care Provider Act marie Dr. Yifan Meza , DO Emergency Provider Active Dr. Bridgett Villagomez MD Admit Provider, Other Provider Active Dr. Tanika Kunz MD Attending Provider Active Principal Product Manager Relationship Specialty Start Date End Date Danie Sawyer MD PCP - General Internal Medicine 01/29/14 Team Status: Inactive Member Role Status Dates Dr. Eduar Donahue , DO Emergency Provider Active Jessicanima Alvarez FIELD REPRESENTATIVE/HEALTH EDUCATION, FIELD REPRESENTATIVE/HEALTH EDUCATION-C Primary Care Provider Act marie Team Status: Active Member Role Status Dates Jessicanima Alvarez FIELD REPRESENTATIVE/HEALTH EDUCATION, FIELD REPRESENTATIVE/HEALTH EDUCATION-C Primary Care Provider Act marie Dr. Yifan Meza , DO Emergency Provider Active Dr. Bridgett Villagomez MD Admit Provider, Attending Prov ider Active Team Status: Inactive Member Role Status Dates Jessicanima Alvarez FIELD REPRESENTATIVE/HEALTH EDUCATION, FIELD REPRESENTATIVE/HEALTH EDUCATION-C Primary Car e Provider, Attending Provider, Referring Provider Active Team Status: Inactive Member Role Status Dates Jessicanima Alvarez FIELD REPRESENTATIVE/HEALTH EDUCATION, FIELD REPRESENTATIVE/HEALTH EDUCATION-C Primary Care Provider Act marie Dr. Jann Hoffmann MD Attending Provider, Emergency Pr ovider Active Care Team (unrecognized sect ion and content) Care Team Personnel Name: DANAY CASTILLO MD Position: P4 Physician - Primary Care Member Role: Primary Care Physician Address: Address: [address] [place] [address]- Care Team Related Persons Name: MARGE TUTTLE [...] BE BASED ON THE PRIMARY CLINICAL RECORDS. [facility]. provides no warranty or guarantee of the accuracy or completeness of information in this document.
[2025-03-19 00:58] LABS: Anion Gap 14 (5-15); BUN 15 mg/dL (4-19); BUN/Creat Ratio 13.7 RATIO (10-20); CPK Total, Creatine Kinase 261 U/L (24-195); Calcium,Total 8.9 mg/dL (7.6-11.0); Carbon Dioxide 21.6 mmol/L (21.0-32.0); Chloride 93 mmol/L (98-108); Estimated Creatinine Clearance 82.08 ml/min (50-250); Glucose 218 mg/dL (70-99); Potassium 4.1 mmol/L (3.3-5.1); Procalcitonin 0.23 ng/mL (<=0.10)
[2025-03-19 02:01] LABS: Mucous, Urine 0 SEEN /hpf (<or=2+)
[2025-03-19 02:10] LABS: Color, Urine Yellow (Yellow); Glucose, Dipstick Normal (Normal); Ketone-Dipstick 15 mg/dl (Negative); Leukocyte Esterase-Dipstick 100 /ul (Negative); Nitrite-Dipstick Negative (Negative); Occult Blood-Urine 25 /ul (Negative); Protein-Dipstick 30 mg/dl (Negative); Specific Gravity, Urine 1.020 (1.002-1.030); Urine Bilirubin Dipstick Negative (Negative)
[2025-03-19 02:20] LABS: Red Blood Cells-Urine 5-10 SEEN /hpf (0-5); Squamous Epithelial Cells - UA 0-5 SEEN /hpf (0-5)
--- NOTE | 2025-03-19 03:50 | PCM.HP.STD ---
HPI - General General Date of Admission: 03/19/25 HPI Narrative PILAR MARTINEZ, is a 74 M who presents to the hospital with increasing weakness and debility. He was seen in the ER yesterday, in the [facility], and was diagnosed with pneumonia and discharged on doxycycline after viral panel was negative. He presented back to the hospital less than 24 hours later for increasing weakness and just not feeling well. Repeat chest x-ray also demonstrates infiltrates, he is afebrile without a leukocytosis. ED staff did attempt to ambulate patient in anticipation of possible discharge home however he was too weak to stand on his own at this time he was called for admission [facility] Medical History (Updated 03/19/25 @ 04:[address] Watson Maya MD) Adult failure to thrive Obesity Allergic rhinitis CKD (chronic kidney disease), stage II Former tobacco use COPD (chronic obstructive pulmonary disease) BPH (benign prostatic hyperplasia) Hyperlipemia HTN (hypertension) Diabetes Home Medications ?Medication ?Instructions ?Recorded ?Last Taken ?Type atorvastatin 80 mg tablet 80 mg PO QHS cholesterol 11/08/22 Unknown History cetirizine 5 mg tablet 5 mg PO QHS allergies 11/08/22 Unknown History cholecalciferol (vitamin D3) 125 5,000 unit PO QWEEK vitamin 11/08/22 Unknown History mcg (5,000 unit) tablet (Vitamin D3) clopidogrel 75 mg tablet 75 mg PO DAILY anti platelet 11/08/22 11/08/22 History icosapent ethyl 1 gram capsule 2 g PO BID triglycerides 11/08/22 Unknown History (Vascepa) isosorbide mononitrate 30 mg 30 mg PO DAILY heart 11/08/22 Unknown History tablet,extended release 24 hr linagliptin 5 mg tablet (Tradjenta) 5 mg PO DAILY diabetes 11/08/22 Unknown History losartan 25 mg tablet 25 mg PO DAILY blood pressure 11/08/22 Unknown History melatonin 5 mg tablet 5 mg PO QHS sleep 11/08/22 Unknown History metformin 500 mg tablet 500 mg PO BID diabetes 11/08/22 Unknown History montelukast 10 mg tablet 10 mg PO QHS allergies 11/08/22 Unknown History polyethylene glycol 3350 17 17 g PO .EVERY OTHER DAY 11/08/22 Unknown History gram/dose oral powder (Gavilax) constipation tamsulosin 0.4 mg capsule 0.8 mg PO DAILY prostate 11/08/22 Unknown History finasteride 5 mg tablet 5 mg PO DAILY #0 tabs 11/12/23 Unknown Rx doxycycline monohydrate 100 mg 100 mg PO BID 7 days #14 CAPSULES 03/18/25 Unknown Rx capsule ondansetron 4 mg disintegrating 4 mg PO TID PRN nausea and 03/18/25 Unknown Rx tablet vomiting #21 tabs Allergy/AdvReac Type Severity Reaction Status Date / Time No Known Allergies Allergy Verified 03/18/25 23:44 Family History Mother Diabetes Cancer Father Diabetes Cancer Surgical History History of herniorrhaphy Hx of cholecystectomy Hx of appendectomy Social History housing: assisted living facility Smoking Status: Former smoker alcohol intake: never substance use type: does not use ROS Constitutional Constitutional: Reports chills, fatigue, fever(s) and weakness Eyes Eyes: Denies blurry vision ENT HEENT: Denies headache(s) or nasal discharge Cardiovascular Cardiovascular: Denies chest pain, dyspnea on exertion or syncope Respiratory/Chest Respiratory/Chest: Denies cough, shortness of breath at rest or shortness of breath with exertion Gastrointestinal Gastrointestinal: Denies constipation, diarrhea, nausea or vomiting Genitourinary Genitourinary: Denies dysuria Musculoskeletal Musculoskeletal: Reports myalgias Neurologic Neurologic: Denies focal weakness, numbness or tremor(s) Psychiatric Psychiatric: Denies anxiety or depression Patient's Goals Of Care . Unable to discuss care goals with the patient and or patient statement services representative at this time: Yes Vital Signs Vital Signs Vital Signs: 03/18/25 23:43 03/18/25 23:43 03/18/25 23:46 Temperature 99.2 F H 99.2 F H Temperature Source Oral Oral Pulse Rate 100 100 Respiratory Rate 18 18 Respiratory Effort Normal Non-Labored Respiratory Pattern Normal Blood Pressure 157/77 H 157/77 H Blood Pressure Mean 103 103 Pulse Ox 92 92 Oxygen Delivery Method Room Air Room Air 03/19/25 01:46 03/19/25 02:00 03/19/25 03:00 Temperature 99.1 F 98.9 F 98.8 F Temperature Source Oral Oral Oral Pulse Rate 87 88 87 Respiratory Rate 19 H 18 16 Respiratory Effort Respiratory Pattern Blood Pressure 121/58 H 95/59 L 93/61 Blood Pressure Mean 79 71 71 Pulse Ox 98 93 93 Oxygen Delivery Method Room Air Room Air Room Air 03/19/25 03:43 Temperature 98.8 F Temperature Source Pulse Rate 87 Respiratory Rate 16 Respiratory Effort Respiratory Pattern Blood Pressure 99/58 L Blood Pressure Mean 71 Pulse Ox 93 Oxygen Delivery Method Weight Weight: 264 lb 5.348 oz Body Mass Index (BMI) 33.9 Physical Exam Narrative General: Alert, Oriented x3, Cooperative, No apparent distress HEENT: Atraumatic, PERRLA, EOMI, Normocephalic Oral: Dry mucosa Neck: Supple, No JVD Lungs: Diminished, Normal air movement, No rhonchi, No wheeze, No rales Cardiovascular: Regular rate, Regular Rhythm, Normal S1, Normal S2, No murmurs Abdomen: Soft, Non Tender, Non-Distended, No Hepato-splenomegaly Extremities: No edema, Capillary Refill Less than 3 Seconds Skin: No rashes, No breakdown Musculoskeletal: No Tenderness to Palpation of Joints or Extremities Neurological: No focal neurological deficits, moves all extremities Psych/Mental Status: Normal Affect, Appropriate Results Lab / Micro Data 03/18/25 23:56 03/18/25 23:56 Labs: Laboratory Results - last 24 hr 03/18/25 23:56: WBC 5.0, RBC 4.60, Hgb 14.5, Hct 40.6, MCV 88.3, MCH 31.5, MCHC 35.7, RDW Std Deviation 37.2, RDW Coeff of Gage 11.5 L, Plt Count 71 L, MPV 9.8, Immature Gran % (Auto) 0.400, Neut % (Auto) 78.0 H, Lymph % (Auto) 10.9 L, [place] % (Auto) 10.1 H, Eos % (Auto) 0.2, Baso % (Auto) 0.4, Absolute Neuts (auto) 3.9, Absolute Lymphs (auto) 0.55 L, Nucleated RBC % 0, Sodium 129 L, Potassium 4.1, Chloride 93 L, Carbon Dioxide 21.6, Anion Gap 14, BUN 15, Creatinine 1.07, Estim Creat Clear Calc 82.08, Est GFR (MDRD) Non-Af 72, BUN/Creatinine Ratio 13.7, Glucose 218 H, Calcium 8.9, Total Creatine Kinase 261 H, Procalcitonin 0.23 H 03/19/25 01:57: Urine Color Yellow, Urine Clarity Clear, Urine pH 6.0, Ur Specific [place] 1.020, Urine Protein 30 H, Urine Glucose (UA) Normal, Urine Ketones 15 H, Urine Occult Blood 25 H, Urine Nitrite Negative, Urine Bilirubin Negative, Urine Urobilinogen Normal, Ur Leukocyte Esterase 100 H, Urine RBC 5-10 SEEN, Urine WBC 5-10 SEEN, Ur Squamous Epith Cells 0-5 SEEN, Urine Bacteria RARE, Urine Mucus 0 SEEN Micro: Microbiology 03/19/25 00:04 Mucosa - Nose Respiratory Panel (PCR) - Final Imaging Radiology Impression Chest X-Ray 03/18/25 23:52 IMPRESSION: Mild bilateral basilar atelectatic pulmonary changes/infiltrates, unchanged. Reading Location: [place] [id number] Assessment & Plan Assessment/Plan (1) Adult failure to thrive: PLAN: Plan 1. Adult failure to thrive with inability to complete ADLs this in the setting of community-acquired pneumonia ? Will obtain sputum culture ? He was unable to take his Doxy after discharge from the ER early this morning because of weakness ? With Rocephin and azithromycin ? Legionella and strep urine antigen are pending ? PT/OT will be consulted case management to determine dispo 2. Essential HTN/HLD ? Continue this home blood pressure medications when verified ? Blood pressures are stable ? Continue with his home cholesterol medications when verified 3. DM2 ? Accu-Cheks ? Insulin ? Monitor make adjustments as necessary ? Hold his home medications 4. Chronic hyponatremia ? Will monitor DVT: Lovenox Charges/Coding Visit Charges Inpatient E&M: 61039 Init Hosp L2
--- OUTSIDE RECORDS SUMMARY | 2025-03-19 04:20 | XMS RPT_ITS | CCD ---
Author Organization [employer] Care Team Providers Care Acute Care Clinical Nurse Specialist Name Role Phone LUCIANO, KELVIN B Unavailable [...] Unavailable Unavailable Favian Trevizo Primary Care Provider [phone] Favian Trevizo Primary Care Provider Panchito Contreras Primary Care Provider [phone] Danie Sawyer Primary Care Provider [phone] Joseline CHA PhD, Favian Primary Care Provider [phone] Danie Sawyer MD Primary Care Provider [phone] ANNA CHA, DANAY Eli Primary Care Physician [phone] Antonio NEIL, HORTICULTURAL WORKERMiraC Jessica Moura Primary Care Provid er Dr. Yifan Meza Emergency Provider [phone] Dr. Bridgett Villagomez Admit Provider [phone] Bridgett Villagomez Other Provider Dr. Tanika Kunz Attending Provider Dr. Tanika Kunz Other Provider Mark Anthony Guzman Attending Unavailable Antonio HORTICULTURAL WORKER, [facility] ruby White, Bridgett L Consulting Unavailable White, Bridgett L Admitting Unavailable Kaushik Bryant Consulting Unavailable Mark Anthony Guzman Consulting Unavailable Bridgett Villagomez Attending Unavailable Deniz Cooper Attending Unavailable Deniz Cooper Consulting Unavailable Antonio NEIL, [facility] Deniz Marina Attending Unavailable Bridgett Villagomez L Consulting Unavailable Dahlia Bridgett L Admitting Unavailable Kaushik Bryant Consulting Unavailable Mark Anthony Guzman Consulting Unavailable Antonio NEIL, [facility] Clayton Contreras Attending Unavailable Medications Current [...] every 6 hours as needed. Indications: PAIN [id number] 200 actuat albuterol 0.09 mg/actuat metered dose [...] mg Start: 09-16-2019 take 1 capsule by [facility] twice daily docusate sodium (COLACE, [...] (6 sources) Start: 09-12-2019 15 g, Oral, GA N, Low blood sugar, Starting Sun09/12/19 at [...] neuropathy, without long-term current use of insulin ([facility]) TAKE 2 TABLETS BY MOUTH [...] hyperglycemia, without long-term current use of insulin ([facility]) TAKE 2 TABLETS BY MOUTH [...] g 1 12/23/2020 Active polyethylene glycol 3350 38377 mg powder for oral solution (4 sources) [...] Refill(s) Start Date: 02/27/21 Status: Ordered sennosides, skilled nursing 8.6 mg oral tablet (5 sources) Start: [...] mL, IntraVENous, PRN, L ine Care, Per Field Case Manager Request, Starting on Sun01/31/21 at 0120, For 72 hours May use order for Line Care after every IV line use and Agitated Saline Bubble Study. Administration for Bubble Study per wool tamper request for only. Remove 1 mL 0.9% [...] Suspended Start: 10-10-2019 take 1 capsule by [facility] once daily tamsulosin (FLOMAX) 0.4 [...] Coronary atherosclerosis; Translations: [Atherosclerotic heart disease of [place] coronary artery without angina pectoris] Onset: 02-27-2021 [...] )on 05-15-2024 BUN/CRE 10.4 RATIO Normal 10-20 [facility] Comment on above: Performed By: #### L 501.080 #### [facility] [address] [place], [address] CA,Total 8.5 mg/dL Normal 8.5-10.1 [facility] Comment on above: Performed By: #### L 501.080 #### [facility] [address] [place], [address] Chloride [Moles/Vol] 104 mmol/L Normal 98-107 [facility] Comment on above: Performed By: #### L 501.080 #### [facility] [address] [place], [address] CO2 [Moles/Vol] 22.0 mmol/L Normal 21.0-32.0 [facility] Comment on above: Performed By: #### L 501.080 #### [facility] [address] [place], [address] Creatinine [Mass/Vol] 1.06 mg/dL Normal 0.70-1.30 [facility] Comment on above: Result Comment: The validity of the calculated GFR GFRAA in patients over 70 years has not been determined. Clinical correlation is essential. Performed By: #### L 501.080 #### [facility] [address] [place], [address] ECRCL 84.96 ml/min Normal [facility] Comment on above: Performed By: #### L 501.080 #### [facility] [address] [place], [address] EST GFR - AA 88 mL/min Normal >60 [facility] Comment on above: Result Comment: Afri can Burkin[place] GFR Calc Performed By: #### L 501.080 #### [facility] [address] [place], [address] GAP 11 Normal 5-15 [facility] Comment on above: Performed By: #### L 501.080 #### [facility] [address] [place], [address] GFR/1.73 sq M.predicted among non-blacks MDRD (S/P/Bld) [Vol rate/Area] 73 mL/min/{1.73_m2} Normal >60 [facility] Comment on above: Result Comment: Non- GFR Calc Performed By: #### L 501.080 #### [facility] [address] [place], [address] Glucose [Mass/Vol] 188 mg/dL High 74-106 [facility] Comment on above: Result Comment: Fast ing Glucose result greater than or equal to 126 mg/dL suggests DIABETES MELLITUS per A.D.A. criteria. Performed By: #### L 501.080 #### [facility] [address] [place], [address] Potassium [Moles/Vol] 3.6 mmol/L Normal 3.5-5.1 [facility] Comment on above: Performed By: #### L 501.080 #### [facility] [address] [place], [address] Sodium [Moles/Vol] 137 mmol/L Normal 136-145 [facility] Comment on above: Performed By: #### L 501.080 #### [facility] [address] [place], [address] Urea nitrogen [Mass/Vol] 11 mg/dL Normal 7-18 [facility] Comment on above: Performed By: #### L 501.080 #### [facility] [address] [place], [address] CBC W/Diff, Automatedon 05-03 PLT EST SLT DEC Normal ADEQ [facility] Comment on above: Performed By: #### L 501.080 #### [facility] [address] [place], [address] Chest PA and Lateralon 05-15 Chest PA and Lateral [facility] [address] [place] [address] Chest PA and Lateral MR#: [id number] Acct: [id number] Name: SHOLA MARTINEZ Rep #: [id number] : 1950 M 73 From: Saundra Jarvis nd, MD PCP: MASON EdwardsC Status: PRE ER Study: Chest PA and Lateral Date of Exam: 05/15/24 Exam# [id number] Ordering Dr: Clayton Casper MD PROCEDURE: CHEST [...] and Lateral IMPRESSION: NEGATIVE CHEST Reading Location: [facility] CC: HORTICULTURAL WORKER-C Jessica Alvarez; Dr. Clayton Casper MD K [employer] Professional: Signed Normal [facility] Emergency Department Summary on 05-15-2024 Emergency Department Summary [facility] Medical Records Department [address] [place] [address] Emergency Department Summary 05/15/24 MR#: [id number] Acct: [id number] Name: SHOLA MARTINEZ Rep #: [id number] : 1950 73 From: Clayton Casper MD [...] Prior similar symptoms: Yes Recent Illness/Hospitalization: No [facility] Medical History Adult failure to thrive Obesity [...] No temi (more content not included)... Normal [facility] M100.678on 05-15-2024 M100.678 Copy of report sent to Infection Control Printer [id number] 05/15/24 0645 BLUCAS. FLUABV+SARS-CoV-2+RSV Pnl Resp LILLIAN+probe Normal Reference Range = Negative GeneXpert Instrument, PCR method SARS-CoV-2 (COVID 19) A Positive A INFLUENZA A Negative INFLUENZA B Negative RSV PCR Negative SARS-CoV-2 (COVID 19 PCR) Normal [facility] Comment on above: Performed By: #### M 100.678 ####[facility] [address] [place], [address] Basic Metabolic Profile (BMP )on 11-14-2023 BUN Normal 7-18 [facility] Comment on above: Result Comment: Canc elled via OM: Order cancelled - Patient discharged Performed By: #### L 100.0500, L500.2500 ####[facility] [address] [place], [address] BUN/CRE Normal 10-20 [facility] Comment on above: Result Comment: Canc elled via OM: Order cancelled - Patient discharged Performed By: #### L 100.0500, L500.2500 ####[facility] [address] [place], [address] CA,Total Normal 8.5-10.1 [facility] Comment on above: Result Comment: Canc elled via OM: Order cancelled - Patient discharged Performed By: #### L 100.0500, L500.2500 ####[facility] [address] [place], [address] CL Normal 98-107 [facility] Comment on above: Result Comment: Canc elled via OM: Order cancelled - Patient discharged Performed By: #### L 100.0500, L500.2500 ####[facility] [address] [place], [address] CO2 Normal 21.0-32.0 [facility] Comment on above: Result Comment: Canc elled via OM: Order cancelled - Patient discharged Performed By: #### L 100.0500, L500.2500 ####[facility] [address] [place], [address] CREAT,SERUM Normal 0.70-1.30 [facility] Comment on above: Result Comment: Canc elled via OM: Order cancelled - Patient discharged Performed By: #### L 100.0500, L500.2500 ####[facility] [address] [place], [address] EST GFR Normal >60 [facility] Comment on above: Result Comment: Canc elled via OM: Order cancelled - Patient discharged Performed By: #### L 100.0500, L500.2500 ####[facility] [address] [place], [address] EST GFR - AA Normal >60 [facility] Comment on above: Result Comment: Canc elled via OM: Order cancelled - Patient discharged Performed By: #### L 100.0500, L500.2500 ####[facility] [address] [place], [address] GAP Normal 5-15 [facility] Comment on above: Result Comment: Canc elled via OM: Order cancelled - Patient discharged Performed By: #### L 100.0500, L500.2500 ####[facility] [address] [place], [address] GLU Normal 74-106 [facility] Comment on above: Result Comment: Canc elled via OM: Order cancelled - Patient discharged Performed By: #### L 100.0500, L500.2500 ####[facility] [address] [place], [address] Potassium Normal 3.5-5.1 [facility] Comment on above: Result Comment: Canc elled via OM: Order cancelled - Patient discharged Performed By: #### L 100.0500, L500.2500 ####[facility] [address] [place], [address] Basic Metabolic Profile (BMP) Normal 136-145 [facility] Comment on above: Result Comment: Canc elled via OM: Order cancelled - Patient discharged Performed By: #### L 100.0500, L500.2500 ####[facility] [address] [place], [address] CBC-Complete Blood Cnt No Di ffon 11-14-2023 HCT Normal 40-54 [facility] Comment on above: Result Comment: Canc elled via OM: Order cancelled - Patient discharged Performed By: #### L 100.0500, L500.2500 ####[facility] [address] [place], [address] HGB Normal 13.0-16.5 [facility] Comment on above: Result Comment: Canc elled via OM: Order cancelled - Patient discharged Performed By: #### L 100.0500, L500.2500 ####[facility] [address] [place], [address] MCH Normal 27.0-32.0 [facility] Comment on above: Result Comment: Canc elled via OM: Order cancelled - Patient discharged Performed By: #### L 100.0500, L500.2500 ####[facility] [address] [place], [address] MCHC Normal 32-36 [facility] Comment on above: Result Comment: Canc elled via OM: Order cancelled - Patient discharged Performed By: #### L 100.0500, L500.2500 ####[facility] [address] [place], [address] MCV Normal 80-94 [facility] Comment on above: Result Comment: Canc elled via OM: Order cancelled - Patient discharged Performed By: #### L 100.0500, L500.2500 ####[facility] [address] [place], [address] PLT Normal 150-450 [facility] Comment on above: Result Comment: Canc elled via OM: Order cancelled - Patient discharged Performed By: #### L 100.0500, L500.2500 ####[facility] [address] [place], [address] RBC Normal 4.6-6.2 [facility] Comment on above: Result Comment: Canc elled via OM: Order cancelled - Patient discharged Performed By: #### L 100.0500, L500.2500 ####[facility] [address] [place], [address] RDW CV Normal 11.6-14.6 [facility] Comment on above: Result Comment: Canc elled via OM: Order cancelled - Patient discharged Performed By: #### L 100.0500, L500.2500 ####[facility] [address] [place], [address] RDW SD Normal 35.1-43.9 [facility] Comment on above: Result Comment: Canc elled via OM: Order cancelled - Patient discharged Performed By: #### L 100.0500, L500.2500 ####[facility] [address] [place], [address] WBC Normal 4.4-11.0 [facility] Comment on above: Result Comment: Canc elled via OM: Order cancelled - Patient discharged Performed By: #### L 100.0500, L500.2500 ####[facility] [address] [place], [address] Culture, Blood (WB)on 2023 CUB Blood cultures x2, f rom two different sites ANAEROBIC BOTTLE GRAM STAIN= GRAM POSITIVE COCCI IN CLUSTERS RESULTS CALLED TO [place] 11/08/231950 Lavonne Pelayo. REPORT READ BACK BY [...] Vancomycin Islt FRANCISCO J <=0.5 S Normal [facility] Comment on above: Performed By: #### M 200.1000 ####[facility] [address] [place], [address] Basic Metabolic Profile (BMP )on 11-12-2023 BUN/CRE 11.4 RATIO Normal 10-20 [facility] Comment on above: Performed By: #### L 500.2500, L100.0100 ####[facility] [address] [place], [address] CA,Total 8.2 mg/dL Low 8.5-10.1 [facility] Comment on above: Performed By: #### L 500.2500, L100.0100 ####[facility] [address] [place], [address] Chloride [Moles/Vol] 105 mmol/L Normal 98-107 [facility] Comment on above: Performed By: #### L 500.2500, L100.0100 ####[facility] [address] [place], [address] CO2 [Moles/Vol] 24.0 mmol/L Normal 21.0-32.0 [facility] Comment on above: Performed By: #### L 500.2500, L100.0100 ####[facility] [address] [place], [address] Creatinine [Mass/Vol] 0.70 mg/dL Normal 0.70-1.30 [facility] Comment on above: Result Comment: The validity of the calculated GFR GFRAA in patients over 70 years has not been determined. Clinical correlation is essential. Performed By: #### L 500.2500, L100.0100 ####[facility] [address] [place], [address] ECRCL 110.60 ml/min Normal [facility] Comment on above: Performed By: #### L 500.2500, L100.0100 ####[facility] [address] [place], [address] EST GFR - AA 141 mL/min Normal >60 [facility] Comment on above: Result Comment: Afri can [place]kin[place] GFR Calc Performed By: #### L 500.2500, L100.0100 ####[facility] [address] [place], [address] GAP 6 Normal 5-15 [facility] Comment on above: Performed By: #### L 500.2500, L100.0100 ####[facility] [address] [place], [address] GFR/1.73 sq M.predicted among non-blacks MDRD (S/P/Bld) [Vol rate/Area] 117 mL/min/{1.73_m2} Normal >60 [facility] Comment on above: Result Comment: Non- GFR Calc Performed By: #### L 500.2500, L100.0100 ####[facility] [address] [place], [address] Glucose [Mass/Vol] 150 mg/dL High 74-106 [facility] Comment on above: Result Comment: Fast ing Glucose result greater than or equal to 126 mg/dL suggests DIABETES MELLITUS per A.D.A. criteria. Performed By: #### L 500.2500, L100.0100 ####[facility] [address] [place], [address] Potassium [Moles/Vol] 3.6 mmol/L Normal 3.5-5.1 [facility] Comment on above: Performed By: #### L 500.2500, L100.0100 ####[facility] [address] [place], [address] Sodium [Moles/Vol] 135 mmol/L Low 136-145 [facility] Comment on above: Performed By: #### L 500.2500, L100.0100 ####[facility] [address] [place], [address] Urea nitrogen [Mass/Vol] 8 mg/dL Normal 7-18 [facility] Comment on above: Performed By: #### L 500.2500, L100.0100 ####[facility] [address] [place], [address] Bedside Glucoseon 11-12-2023 FINGERSTICK GLU 152 mg/dL High 74-106 [facility] Comment on above: Result Comment: ADA GEMENT OF PATIENT CARE PER NURSING PROTOCOL Performed By: #### L 501.080 ####[facility] [address] [place], [address] FINGERSTICK GLU 137 mg/dL High 74-106 [facility] Comment on above: Result Comment: [place] GEMENT OF PATIENT CARE PER NURSING PROTOCOL Performed By: #### L 501.080 ####[facility] [address] [place], [address] CBC W/Diff, Automatedon 10-31 Absolute Lymph 0.77 X10 3/uL Low 0.83-4.51 [facility] Comment on above: Performed By: #### L 500.2500, L100.0100 ####[facility] [address] [place], [address] Absolute Neut 2.8 X10 3/uL Normal 2.0-7.7 [facility] Comment on above: Performed By: #### L 500.2500, L100.0100 ####[facility] [address] [place], [address] Basophils/100 WBC (Bld) 0.5 % Normal 0-1 [facility] Comment on above: Performed By: #### L 500.2500, L100.0100 ####[facility] [address] [place], [address] Eosinophils/100 WBC (Bld) 2.7 % Normal 0-5 [facility] Comment on above: Performed By: #### L 500.2500, L100.0100 ####[facility] [address] [place], [address] Erythrocyte distribution width (RBC) [Ratio] 11.6 % Normal 11.6-14.6 [facility] Comment on above: Performed By: #### L 500.2500, L100.0100 ####[facility] [address] [place], [address] Hematocrit (Bld) [Volume fraction] 35.5 % Low 40-54 [facility] Comment on above: Performed By: #### L 500.2500, L100.0100 ####[facility] [address] [place], [address] Hemoglobin (Bld) [Mass/Vol] 12.3 g/dL Low 13.0-16.5 [facility] Comment on above: Performed By: #### L 500.2500, L100.0100 ####[facility] [address] [place], [address] IG% 0.500 Normal 0.0-0.9 [facility] Comment on above: Result Comment: IG% - Immature Granulocytes (promyelocytes, myelocytes and metamyelocytes) > 1% indicates that a LEFT SHIFT is Present. Performed By: #### L 500.2500, L100.0100 ####[facility] [address] [place], [address] Lymphocytes/100 WBC (Bld) 18.6 % Low 19-41 [facility] Comment on above: Performed By: #### L 500.2500, L100.0100 ####[facility] [address] [place], [address] MCH (RBC) [Entitic mass] 30.0 pg Normal 27.0-32.0 [facility] Comment on above: Performed By: #### L 500.2500, L100.0100 ####[facility] [address] [place], [address] MCHC (RBC) [Mass/Vol] 34.6 g/dL Normal 32-36 [facility] Comment on above: Performed By: #### L 500.2500, L100.0100 ####[facility] [address] [place], [address] MCV (RBC) [Entitic vol] 86.6 fL Normal 80-94 [facility] Comment on above: Performed By: #### L 500.2500, L100.0100 ####[facility] [address] [place], [address] Monocytes/100 WBC (Bld) 10.9 % High 0-10 [facility] Comment on above: Performed By: #### L 500.2500, L100.0100 ####[facility] [address] [place], [address] Neutrophils/100 WBC (Bld) 66.8 % Normal 47-70 [facility] Comment on above: Performed By: #### L 500.2500, L100.0100 ####[facility] [address] [place], [address] Nucleated RBC (Bld) [#/Vol] 0 10*3/uL Normal 0-5 [facility] Comment on above: Performed By: #### L 500.2500, L100.0100 ####[facility] [address] [place], [address] Platelet mean volume (Bld) [Entitic vol] 8.7 fL Normal 6.2-12.0 [facility] Comment on above: Performed By: #### L 500.2500, L100.0100 ####[facility] [address] [place], [address] Platelets (Bld) [#/Vol] 117 10*3/uL Low 150-450 [facility] Comment on above: Performed By: #### L 500.2500, L100.0100 ####[facility] [address] [place], [address] RBC (Bld) [#/Vol] 4.10 10*6/uL Low 4.6-6.2 [facility] Comment on above: Performed By: #### L 500.2500, L100.0100 ####[facility] [address] [place], [address] RDW SD 36.7 fl Normal 35.1-43.9 [facility] Comment on above: Performed By: #### L 500.2500, L100.0100 ####[facility] [address] [place], [address] WBC (Bld) [#/Vol] 4.1 10*3/uL Low 4.4-11.0 [facility] Comment on above: Performed By: #### L 500.2500, L100.0100 ####[facility] [address] [place], [address] Bedside Glucoseon 11-11-2023 FINGERSTICK GLU 165 mg/dL High 74-106 [facility] Comment on above: Result Comment: [place] GEMENT OF PATIENT CARE PER NURSING PROTOCOL Performed By: #### L 501.080 #### [facility] [address] [place], [address] FINGERSTICK GLU 165 mg/dL High 74-106 [facility] Comment on above: Result Comment: [place] GEMENT OF PATIENT CARE PER NURSING PROTOCOL Performed By: #### L 501.080 ####[facility] [address] [place], [address] FINGERSTICK GLU 170 mg/dL High 74-106 [facility] Comment on above: Result Comment: [place] GEMENT OF PATIENT CARE PER NURSING PROTOCOL Performed By: #### L 501.080 ####[facility] [address] [place], [address] FINGERSTICK GLU 133 mg/dL High 74-106 [facility] Comment on above: Result Comment: [place] GEMENT OF PATIENT CARE PER NURSING PROTOCOL Performed By: #### L 501.080 #### [facility] [address] [place], [address] Basic Metabolic Profile (BMP )on 11-10-2023 BUN/CRE 13.3 RATIO Normal 10-20 [facility] Comment on above: Performed By: #### L 501.080 #### [facility] [address] [place], [address] CA,Total 7.7 mg/dL Low 8.5-10.1 [facility] Comment on above: Performed By: #### L 501.080 #### [facility] [address] [place], [address] Chloride [Moles/Vol] 108 mmol/L High 98-107 [facility] Comment on above: Performed By: #### L 501.080 #### [facility] [address] [place], [address] CO2 [Moles/Vol] 24.0 mmol/L Normal 21.0-32.0 [facility] Comment on above: Performed By: #### L 501.080 #### [facility] [address] [place], [address] Creatinine [Mass/Vol] 0.75 mg/dL Normal 0.70-1.30 [facility] Comment on above: Result Comment: The validity of the calculated GFR GFRAA in patients over 70 years has not been determined. Clinical correlation is essential. Performed By: #### L 501.080 #### [facility] [address] [place], [address] ECRCL 110.36 ml/min Normal [facility] Comment on above: Performed By: #### L 501.080 #### [facility] [address] [place], [address] EST GFR - AA 131 mL/min Normal >60 [facility] Comment on above: Result Comment: Afri can [place]kin[place] GFR Calc Performed By: #### L 501.080 #### [facility] [address] [place], [address] GAP 6 Normal 5-15 [facility] Comment on above: Performed By: #### L 501.080 #### [facility] [address] [place], [address] GFR/1.73 sq M.predicted among non-blacks MDRD (S/P/Bld) [Vol rate/Area] 108 mL/min/{1.73_m2} Normal >60 [facility] Comment on above: Result Comment: Non- GFR Calc Performed By: #### L 501.080 #### [facility] [address] [place], [address] Glucose [Mass/Vol] 137 mg/dL High 74-106 [facility] Comment on above: Result Comment: Fast ing Glucose result greater than or equal to 126 mg/dL suggests DIABETES MELLITUS per A.D.A. criteria. Performed By: #### L 501.080 #### [facility] [address] [place], [address] Potassium [Moles/Vol] 3.6 mmol/L Normal 3.5-5.1 [facility] Comment on above: Performed By: #### L 501.080 #### [facility] [address] [place], [address] Sodium [Moles/Vol] 138 mmol/L Normal 136-145 [facility] Comment on above: Performed By: #### L 501.080 #### [facility] [address] [place], [address] Urea nitrogen [Mass/Vol] 10 mg/dL Normal 7-18 [facility] Comment on above: Performed By: #### L 501.080 #### [facility] [address] [place], [address] Bedside Glucoseon 11-10-2023 FINGERSTICK GLU 159 mg/dL High 74-106 [facility] Comment on above: Result Comment: ADA GEMENT OF PATIENT CARE PER NURSING PROTOCOL Performed By: #### L 501.080 ####[facility] [address] [place], [address] FINGERSTICK GLU 169 mg/dL High 74-106 [facility] Comment on above: Result Comment: ADA GEMENT OF PATIENT CARE PER NURSING PROTOCOL Performed By: #### L 501.080 #### [facility] [address] [place], [address] FINGERSTICK GLU 154 mg/dL High 74-106 [facility] Comment on above: Result Comment: ADA GEMENT OF PATIENT CARE PER NURSING PROTOCOL Performed By: #### L 501.080 #### [facility] [address] [place], [address] FINGERSTICK GLU 144 mg/dL High 74-106 [facility] Comment on above: Result Comment: ADA GEMENT OF PATIENT CARE PER NURSING PROTOCOL Performed By: #### L 501.080 #### [facility] [address] [place], [address] CBC W/Diff, Automatedon 10-31 Absolute Lymph 0.60 X10 3/uL Low 0.83-4.51 [facility] Comment on above: Performed By: #### L 501.080 #### [facility] [address] [place], [address] Absolute Neut 3.1 X10 3/uL Normal 2.0-7.7 [facility] Comment on above: Performed By: #### L 501.080 #### [facility] [address] [place], [address] Basophils/100 WBC (Bld) 0.5 % Normal 0-1 [facility] Comment on above: Performed By: #### L 501.080 #### [facility] [address] [place], [address] Eosinophils/100 WBC (Bld) 4.0 % Normal 0-5 [facility] Comment on above: Performed By: #### L 501.080 #### [facility] [address] [place], [address] Erythrocyte distribution width (RBC) [Ratio] 11.9 % Normal 11.6-14.6 [facility] Comment on above: Performed By: #### L 501.080 #### [facility] [address] [place], [address] Hematocrit (Bld) [Volume fraction] 35.4 % Low 40-54 [facility] Comment on above: Performed By: #### L 501.080 #### [facility] [address] [place], [address] Hemoglobin (Bld) [Mass/Vol] 12.2 g/dL Low 13.0-16.5 [facility] Comment on above: Performed By: #### L 501.080 #### [facility] [address] [place], [address] IG% 0.500 Normal 0.0-0.9 [facility] Comment on above: Result Comment: IG% - Immature Granulocytes (promyelocytes, myelocytes and metamyelocytes) > 1% indicates that a LEFT SHIFT is Present. Performed By: #### L 501.080 #### [facility] [address] [place], [address] Lymphocytes/100 WBC (Bld) 14.0 % Low 19-41 [facility] Comment on above: Performed By: #### L 501.080 #### [facility] [address] [place], [address] MCH (RBC) [Entitic mass] 30.1 pg Normal 27.0-32.0 [facility] Comment on above: Performed By: #### L 501.080 #### [facility] [address] [place], [address] MCHC (RBC) [Mass/Vol] 34.5 g/dL Normal 32-36 [facility] Comment on above: Performed By: #### L 501.080 #### [facility] [address] [place], [address] MCV (RBC) [Entitic vol] 87.4 fL Normal 80-94 [facility] Comment on above: Performed By: #### L 501.080 #### [facility] [address] [place], [address] Monocytes/100 WBC (Bld) 9.3 % Normal 0-10 [facility] Comment on above: Performed By: #### L 501.080 #### [facility] [address] [place], [address] Neutrophils/100 WBC (Bld) 71.7 % High 47-70 [facility] Comment on above: Performed By: #### L 501.080 #### [facility] [address] [place], [address] Nucleated RBC (Bld) [#/Vol] 0 10*3/uL Normal 0-5 [facility] Comment on above: Performed By: #### L 501.080 #### [facility] [address] [place], [address] Platelet mean volume (Bld) [Entitic vol] 9.1 fL Normal 6.2-12.0 [facility] Comment on above: Performed By: #### L 501.080 #### [facility] [address] [place], [address] Platelets (Bld) [#/Vol] 106 10*3/uL Low 150-450 [facility] Comment on above: Performed By: #### L 501.080 #### [facility] [address] [place], [address] RBC (Bld) [#/Vol] 4.05 10*6/uL Low 4.6-6.2 [facility] Comment on above: Performed By: #### L 501.080 #### [facility] [address] [place], [address] RDW SD 38.0 fl Normal 35.1-43.9 [facility] Comment on above: Performed By: #### L 501.080 #### [facility] [address] [place], [address] WBC (Bld) [#/Vol] 4.3 10*3/uL Low 4.4-11.0 [facility] Comment on above: Performed By: #### L 501.080 #### [facility] [address] [place], [address] Consultation - Urologyon Consultation - Urology [facility] Medical Records Department [address] [place] [address] Consultation - Urology 11/10/23 1240 MR#: [id number] Acct: [id number] Name: JUANSHOLA Demarco Rep #: [id number] : 1950 73 From: Kaushik Bryant MD PCP: Jessica Alvarez, HORTICULTURAL WORKER-Florina Status:ADM IN Location: [id number] [id number] HPI Consult Data Date of Consult: 11/10/23 [...] office for further care. Call with questions [facility] Medical History Adult failure to thrive Obesity [...] 71.7 H, Lymph % (Auto) 14.0 L, [place] % (Auto) 9.3, Eos % (Auto) 4.0, [...] (if applicable): CC: TARI Alvarez Signed Normal [facility] Urine Cultureon 11-10-2023 URC Identification and sensitivity to follow. Klebsiella pneumoniae sp pneum [place] Count 50,000-80,000 Klebsiella pneumoniae sp pneum: REACTION [...] SMX Islt FRANCISCO J <=20 S Normal [facility] Comment on above: Performed By: #### M 100.2200 ####[facility] [address] [facility] [id number] Basic Metabolic Profile (BMP )on 11-09-2023 BUN/CRE 14.7 RATIO Normal 10-20 [facility] Comment on above: Performed By: #### L 501.080 #### [facility] [address] [facility] [id number] CA,Total 7.6 mg/dL Low 8.5-10.1 [facility] Comment on above: Performed By: #### L 501.080 #### [facility] [address] [facility] [address] Chloride [Moles/Vol] 105 mmol/L Normal 98-107 [facility] Comment on above: Performed By: #### L 501.080 #### [facility] [address] [place], [address] CO2 [Moles/Vol] 24.0 mmol/L Normal 21.0-32.0 [facility] Comment on above: Performed By: #### L 501.080 #### [facility] [address] [place], [address] Creatinine [Mass/Vol] 0.75 mg/dL Normal 0.70-1.30 [facility] Comment on above: Result Comment: The validity of the calculated GFR GFRAA in patients over 70 years has not been determined. Clinical correlation is essential. Performed By: #### L 501.080 #### [facility] [address] [place], [address] ECRCL 110.36 ml/min Normal [facility] Comment on above: Performed By: #### L 501.080 #### [facility] [address] [place], [address] EST GFR - AA 131 mL/min Normal >60 [facility] Comment on above: Result Comment: Afri can [place]kin[place] GFR Calc Performed By: #### L 501.080 #### [facility] [address] [place], [address] GAP 6 Normal 5-15 [facility] Comment on above: Performed By: #### L 501.080 #### [facility] [address] [place], [address] GFR/1.73 sq M.predicted among non-blacks MDRD (S/P/Bld) [Vol rate/Area] 108 mL/min/{1.73_m2} Normal >60 [facility] Comment on above: Result Comment: Non- GFR Calc Performed By: #### L 501.080 #### [facility] [address] [place], [address] Glucose [Mass/Vol] 132 mg/dL High 74-106 [facility] Comment on above: Result Comment: Fast ing Glucose result greater than or equal to 126 mg/dL suggests DIABETES MELLITUS per A.D.A. criteria. Performed By: #### L 501.080 #### [facility] [address] [place], [address] Potassium [Moles/Vol] 3.8 mmol/L Normal 3.5-5.1 [facility] Comment on above: Performed By: #### L 501.080 #### [facility] [address] [place], [address] Sodium [Moles/Vol] 135 mmol/L Low 136-145 [facility] Comment on above: Performed By: #### L 501.080 #### [facility] [address] [place], [address] Urea nitrogen [Mass/Vol] 11 mg/dL Normal 7-18 [facility] Comment on above: Performed By: #### L 501.080 #### [facility] [address] [place], [address] Bedside Glucoseon 11-09-2023 FINGERSTICK GLU 128 mg/dL High 74-106 [facility] Comment on above: Result Comment: ADA GEMENT OF PATIENT CARE PER NURSING PROTOCOL Performed By: #### L 501.080 #### [facility] [address] [place], [address] FINGERSTICK GLU 154 mg/dL High 74-106 [facility] Comment on above: Result Comment: ADA GEMENT OF PATIENT CARE PER NURSING PROTOCOL Performed By: #### L 501.080 #### [facility] [address] [place], [address] FINGERSTICK GLU 151 mg/dL High 74-106 [facility] Comment on above: Result Comment: ADA GEMENT OF PATIENT CARE PER NURSING PROTOCOL Performed By: #### L 501.080 #### [facility] [address] [place], [address] FINGERSTICK GLU 115 mg/dL High 74-106 [facility] Comment on above: Result Comment: ADA SINGH OF PATIENT CARE PER NURSING PROTOCOL Performed By: #### L 501.080 #### [facility] [address] [place], [address] CBC W/Diff, Automatedon 08-0 9-4 Absolute Lymph 0.63 X10 3/uL Low 0.83-4.51 [facility] Comment on above: Performed By: #### L 501.080 #### [facility] [address] [place], [address] Absolute Neut 5.9 X10 3/uL Normal 2.0-7.7 [facility] Comment on above: Performed By: #### L 501.080 #### [facility] [address] [place], [address] Basophils/100 WBC (Bld) 0.3 % Normal 0-1 [facility] Comment on above: Performed By: #### L 501.080 #### [facility] [address] [place], [address] Eosinophils/100 WBC (Bld) 0.7 % Normal 0-5 [facility] Comment on above: Performed By: #### L 501.080 #### [facility] [address] [place], [address] Erythrocyte distribution width (RBC) [Ratio] 12.0 % Normal 11.6-14.6 [facility] Comment on above: Performed By: #### L 501.080 #### [facility] [address] [place], [address] Hematocrit (Bld) [Volume fraction] 36.1 % Low 40-54 [facility] Comment on above: Performed By: #### L 501.080 #### [facility] [address] [place], [address] Hemoglobin (Bld) [Mass/Vol] 12.5 g/dL Low 13.0-16.5 [facility] Comment on above: Performed By: #### L 501.080 #### [facility] [address] [place], [address] IG% 0.300 Normal 0.0-0.9 [facility] Comment on above: Result Comment: IG% - Immature Granulocytes (promyelocytes, myelocytes and metamyelocytes) > 1% indicates that a LEFT SHIFT is Present. Performed By: #### L 501.080 #### [facility] [address] [place], [address] Lymphocytes/100 WBC (Bld) 8.9 % Low 19-41 [facility] Comment on above: Performed By: #### L 501.080 #### [facility] [address] [place], [address] MCH (RBC) [Entitic mass] 30.7 pg Normal 27.0-32.0 [facility] Comment on above: Performed By: #### L 501.080 #### [facility] [address] [place], [address] MCHC (RBC) [Mass/Vol] 34.6 g/dL Normal 32-36 [facility] Comment on above: Performed By: #### L 501.080 #### [facility] [address] [place], [address] MCV (RBC) [Entitic vol] 88.7 fL Normal 80-94 [facility] Comment on above: Performed By: #### L 501.080 #### [facility] [address] [place], [address] Monocytes/100 WBC (Bld) 6.2 % Normal 0-10 [facility] Comment on above: Performed By: #### L 501.080 #### [facility] [address] [place], [address] Neutrophils/100 WBC (Bld) 83.6 % High 47-70 [facility] Comment on above: Performed By: #### L 501.080 #### [facility] [address] [place], [address] Nucleated RBC (Bld) [#/Vol] 0 10*3/uL Normal 0-5 [facility] Comment on above: Performed By: #### L 501.080 #### [facility] [address] [place], [address] Platelet mean volume (Bld) [Entitic vol] 9.1 fL Normal 6.2-12.0 [facility] Comment on above: Performed By: #### L 501.080 #### [facility] [address] [place], [address] Platelets (Bld) [#/Vol] 100 10*3/uL Low 150-450 [facility] Comment on above: Performed By: #### L 501.080 #### [facility] [address] [place], [address] RBC (Bld) [#/Vol] 4.07 10*6/uL Low 4.6-6.2 [facility] Comment on above: Performed By: #### L 501.080 #### [facility] [address] [place], [address] RDW SD 38.7 fl Normal 35.1-43.9 [facility] Comment on above: Performed By: #### L 501.080 #### [facility] [address] [place], [address] WBC (Bld) [#/Vol] 7.1 10*3/uL Normal 4.4-11.0 [facility] Comment on above: Performed By: #### L 501.080 #### [facility] [address] [place], [address] Lactic Acidon 11-09-2023 Lactate [Moles/Vol] 1.0 mmol/L Normal 0.4-1.9 [facility] Comment on above: Order Comment: Y Performed By: #### L 503.6005 ####[facility] [address] [place], [place], [address] Modified Barium Swallow Stud yon 11-09-2023 Modified Barium Swallow Study [facility] Speech Pathology [address] [place] [address] Modified Barium Swallow Study MR#: [id number] Acct: [id number] Name: SHOLA MARTINEZ Rep #: [id number] : 1950 73 From: Erika Rahman M.A., [facility]-TERMITE TECHNICIAN Modified Barium Swallow Patient Information Study Date: 11/09/23 Study Time: 09:15 Direct Billable Minutes: 120 Total Minutes procedure reportin Diagnosis: PNA J18.9 Referring Physician: Mark Anthony Guzman Reason for Referral: Objectively assess swallow function, assess risk for aspiration, and determine recommendations for least restrictive diet textures and compensatory strategies to improve safety of swallow. Medical History: Patient presented to [facility] ED on 11/08/23 with history of [...] liquids, most notably ice water via cup. TERMITE TECHNICIAN recommended MBSS to further assess concerns for [...] Cued cough and re-swallow - somewhat effective. Happy Thick Liquid via small single sip: cup: Result: 3= enters airways/above vocal folds/not ejected Comment: Cued cough and re-swallow - somewhat effective. Happy Thick Liquid via small single sip: cup Trial 2: Result: 5= enters airways/contacts vocal folds/not ejected Honey Thick Liquid via small single sip: cup: Result: 1= does not enter airway Pudding via teaspoon: Result: 1= does not enter airway 1/2 Cookie: Result: 1= does not enter airway Happy Thick Liquid via small single sip: cup Effortful swallow: Result: 1= does not enter airway Thin Liquid via single sip: straw: Result: 1= does not enter airway Thin Liquid via single sip: straw Trial 2: Result: 7= enters airways/below vocal folds/not ejected despite effort Comment: Cued cough and re-swallow - somewhat effective. Happy Thick Liquid via large single sip: cup Effortful swallow: Result: 5= enters airways/contacts vocal folds/not ejected Happy Thick Liquid via small single sip: cup Effortful swallow Trial 2: Result: 1= does not enter airway Comment: SILENT post prandial aspiration of previous trial Thin Liquid via small single sip: cup Trial 2: Result: 3= enters airways/above vocal folds/not ejected Comment: TERMITE TECHNICIAN cued him for chin tuck with moderate verbal cues and model with no follow-through Happy Thick Liquid via small single sip: cup Effortful swallow Trial 3: Result: 1= does not enter airway Comment: Cued cough and re-swallow - somewhat effective. Thin Liquid via small single sip: cup Effortful swa (more content not included)... Normal [facility] Abdomen/Pelvis W IV Cont ONL Yon 11-08-2023 Abdomen/Pelvis W IV Cont ONLY [facility] Imaging Services [address] [place], [place] [id number] Abdomen/Pelvis W IV Cont ONLY MR#: [id number] Acct: [id number] Name: SHOLA MARTINEZ Rep #: [id number] : 1950 M 73 From: Stepan Potts MD PCP: Jessica Alvarez, HORTICULTURAL WORKER-C Status: ADM IN Study: Abdomen/Pelvis W IV Cont ONLY Date of Exam: Exam# [id number] Ordering Dr: Kaushik Bryant MD [id number] STUDY: CT ABDOMEN AND PELVIS WITH CONTRAST [...] CC: TARI Alvarez; Dr. Kaushik Bryant MD K [employer] Professional: Signed Normal [facility] Basic Metabolic Profile (BMP )on 11-08-2023 BUN/CRE 10.9 RATIO Normal 10-20 [facility] Comment on above: Performed By: #### L 501.080 #### [facility] [address] [place], [address] CA,Total 8.9 mg/dL Normal 8.5-10.1 [facility] Comment on above: Performed By: #### L 501.080 #### [facility] [address] [place], [address] Chloride [Moles/Vol] 102 mmol/L Normal 98-107 [facility] Comment on above: Performed By: #### L 501.080 #### [facility] [address] [place], [address] CO2 [Moles/Vol] 23.0 mmol/L Normal 21.0-32.0 [facility] Comment on above: Performed By: #### L 501.080 #### [facility] [address] [place], [address] Creatinine [Mass/Vol] 0.92 mg/dL Normal 0.70-1.30 [facility] Comment on above: Result Comment: The validity of the calculated GFR GFRAA in patients over 70 years has not been determined. Clinical correlation is essential. Performed By: #### L 501.080 #### [facility] [address] [place], [address] ECRCL 104.14 ml/min Normal [facility] Comment on above: Performed By: #### L 501.080 #### [facility] [address] [place], [address] EST GFR - AA 104 mL/min Normal >60 [facility] Comment on above: Result Comment: Afri can [place] GFR Calc Performed By: #### L 501.080 #### [facility] [address] [place], [address] GAP 10 Normal 5-15 [facility] Comment on above: Performed By: #### L 501.080 #### [facility] [address] [place], [address] GFR/1.73 sq M.predicted among non-blacks MDRD (S/P/Bld) [Vol rate/Area] 86 mL/min/{1.73_m2} Normal >60 [facility] Comment on above: Result Comment: Non- GFR Calc Performed By: #### L 501.080 #### [facility] [address] [place], [address] Glucose [Mass/Vol] 142 mg/dL High 74-106 [facility] Comment on above: Result Comment: Fast ing Glucose result greater than or equal to 126 mg/dL suggests DIABETES MELLITUS per A.D.A. criteria. Performed By: #### L 501.080 #### [facility] [address] [place], [address] Potassium [Moles/Vol] 3.8 mmol/L Normal 3.5-5.1 [facility] Comment on above: Result Comment: Slig ht Hemolysis, Result may be falsely increased. Performed By: #### L 501.080 #### [facility] [address] [place], [address] Sodium [Moles/Vol] 135 mmol/L Low 136-145 [facility] Comment on above: Performed By: #### L 501.080 #### [facility] [address] [place], [address] Urea nitrogen [Mass/Vol] 10 mg/dL Normal 7-18 [facility] Comment on above: Performed By: #### L 501.080 #### [facility] [address] [place], [address] Bedside Glucoseon 11-08-2023 FINGERSTICK GLU 133 mg/dL High 74-106 [facility] Comment on above: Result Comment: ADA GEMENT OF PATIENT CARE PER NURSING PROTOCOL Performed By: #### L 501.080 #### [facility] [address] [place], [address] FINGERSTICK GLU 151 mg/dL High 74-106 [facility] Comment on above: Result Comment: ADA GEMENT OF PATIENT CARE PER NURSING PROTOCOL Performed By: #### L 501.080 #### [facility] [address] [place], [address] FINGERSTICK GLU 168 mg/dL High 74-106 [facility] Comment on above: Result Comment: ADA GEMENT OF PATIENT CARE PER NURSING PROTOCOL Performed By: #### L 501.080 #### [facility] [address] [place], [address] FINGERSTICK GLU 153 mg/dL High 74-106 [facility] Comment on above: Result Comment: ADA GEMENT OF PATIENT CARE PER NURSING PROTOCOL Performed By: #### L 501.080 ####[facility] [address] [place], [address] CBC W/Diff, Automatedon 08-0 8-2024 Absolute Lymph 0.66 X10 3/uL Low 0.83-4.51 [facility] Comment on above: Performed By: #### L 100.0100, L500.4050 #### [facility] [address] [place], [address] Absolute Neut 8.7 X10 3/uL High 2.0-7.7 [facility] Comment on above: Performed By: #### L 100.0100, L500.4050 #### [facility] [address] [place], [address] Basophils/100 WBC (Bld) 0.3 % Normal 0-1 [facility] Comment on above: Performed By: #### L 100.0100, L500.4050 #### [facility] [address] [place], [address] Eosinophils/100 WBC (Bld) 0.3 % Normal 0-5 [facility] Comment on above: Performed By: #### L 100.0100, L500.4050 #### [facility] [address] [place], [address] Erythrocyte distribution width (RBC) [Ratio] 12.0 % Normal 11.6-14.6 [facility] Comment on above: Performed By: #### L 100.0100, L500.4050 #### [facility] [address] [place], [address] Hematocrit (Bld) [Volume fraction] 40.5 % Normal 40-54 [facility] Comment on above: Performed By: #### L 100.0100, L500.4050 #### [facility] [address] [place], [address] Hemoglobin (Bld) [Mass/Vol] 13.7 g/dL Normal 13.0-16.5 [facility] Comment on above: Performed By: #### L 100.0100, L500.4050 #### [facility] [address] [place], [address] IG% 0.400 Normal 0.0-0.9 [facility] Comment on above: Result Comment: IG% - Immature Granulocytes (promyelocytes, myelocytes and metamyelocytes) > 1% indicates that a LEFT SHIFT is Present. Performed By: #### L 100.0100, L500.4050 #### [facility] [address] [place], [address] Lymphocytes/100 WBC (Bld) 6.8 % Low 19-41 [facility] Comment on above: Performed By: #### L 100.0100, L500.4050 #### [facility] [address] [place], [address] MCH (RBC) [Entitic mass] 30.2 pg Normal 27.0-32.0 [facility] Comment on above: Performed By: #### L 100.0100, L500.4050 #### [facility] [address] [place], [address] MCHC (RBC) [Mass/Vol] 33.8 g/dL Normal 32-36 [facility] Comment on above: Performed By: #### L 100.0100, L500.4050 #### [facility] [address] [place], [address] MCV (RBC) [Entitic vol] 89.4 fL Normal 80-94 [facility] Comment on above: Performed By: #### L 100.0100, L500.4050 #### [facility] [address] [place], [address] Monocytes/100 WBC (Bld) 2.9 % Normal 0-10 [facility] Comment on above: Performed By: #### L 100.0100, L500.4050 #### [facility] [address] [place], [address] Neutrophils/100 WBC (Bld) 89.3 % High 47-70 [facility] Comment on above: Performed By: #### L 100.0100, L500.4050 #### [facility] [address] [place], [address] Nucleated RBC (Bld) [#/Vol] 0 10*3/uL Normal 0-5 [facility] Comment on above: Performed By: #### L 100.0100, L500.4050 #### [facility] [address] [place], [address] Platelet mean volume (Bld) [Entitic vol] 9.3 fL Normal 6.2-12.0 [facility] Comment on above: Performed By: #### L 100.0100, L500.4050 #### [facility] [address] [place], [address] Platelets (Bld) [#/Vol] 107 10*3/uL Low 150-450 [facility] Comment on above: Performed By: #### L 100.0100, L500.4050 #### [facility] [address] [place], [address] RBC (Bld) [#/Vol] 4.53 10*6/uL Low 4.6-6.2 [facility] Comment on above: Performed By: #### L 100.0100, L500.4050 #### [facility] [address] [place], [address] RDW SD 38.7 fl Normal 35.1-43.9 [facility] Comment on above: Performed By: #### L 100.0100, L500.4050 #### [facility] [address] [place], [address] WBC (Bld) [#/Vol] 9.7 10*3/uL Normal 4.4-11.0 [facility] Comment on above: Performed By: #### L 100.0100, L500.4050 #### [facility] [address] [place], [address] Absolute Lymph 0.64 X10 3/uL Low 0.83-4.51 [facility] Comment on above: Performed By: #### L 501.080 #### [facility] [address] [place], [address] Absolute Neut 8.0 X10 3/uL High 2.0-7.7 [facility] Comment on above: Performed By: #### L 501.080 #### [facility] [address] [place], [address] Basophils/100 WBC (Bld) 0.2 % Normal 0-1 [facility] Comment on above: Performed By: #### L 501.080 #### [facility] [address] [place], [address] Eosinophils/100 WBC (Bld) 0.7 % Normal 0-5 [facility] Comment on above: Performed By: #### L 501.080 #### [facility] [address] [place], [address] Erythrocyte distribution width (RBC) [Ratio] 12.0 % Normal 11.6-14.6 [facility] Comment on above: Performed By: #### L 501.080 #### [facility] [address] [place], [address] Hematocrit (Bld) [Volume fraction] 42.0 % Normal 40-54 [facility] Comment on above: Performed By: #### L 501.080 #### [facility] [address] [place], [address] Hemoglobin (Bld) [Mass/Vol] 14.6 g/dL Normal 13.0-16.5 [facility] Comment on above: Performed By: #### L 501.080 #### [facility] [address] [place], [address] IG% 0.400 Normal 0.0-0.9 [facility] Comment on above: Result Comment: IG% - Immature Granulocytes (promyelocytes, myelocytes and metamyelocytes) > 1% indicates that a LEFT SHIFT is Present. Performed By: #### L 501.080 #### [facility] [address] [place], [address] Lymphocytes/100 WBC (Bld) 7.1 % Low 19-41 [facility] Comment on above: Performed By: #### L 501.080 #### [facility] [address] [place], [address] MCH (RBC) [Entitic mass] 30.5 pg Normal 27.0-32.0 [facility] Comment on above: Performed By: #### L 501.080 #### [facility] [address] [place], [address] MCHC (RBC) [Mass/Vol] 34.8 g/dL Normal 32-36 [facility] Comment on above: Performed By: #### L 501.080 #### [facility] [address] [place], [address] MCV (RBC) [Entitic vol] 87.7 fL Normal 80-94 [facility] Comment on above: Performed By: #### L 501.080 #### [facility] [address] [place], [address] Monocytes/100 WBC (Bld) 2.8 % Normal 0-10 [facility] Comment on above: Performed By: #### L 501.080 #### [facility] [address] [place], [address] Neutrophils/100 WBC (Bld) 88.8 % High 47-70 [facility] Comment on above: Performed By: #### L 501.080 #### [facility] [address] [place], [address] Nucleated RBC (Bld) [#/Vol] 0 10*3/uL Normal 0-5 [facility] Comment on above: Performed By: #### L 501.080 #### [facility] [address] [place], [address] Platelet mean volume (Bld) [Entitic vol] 10.1 fL Normal 6.2-12.0 [facility] Comment on above: Performed By: #### L 501.080 #### [facility] [address] [place], [address] Platelets (Bld) [#/Vol] 110 10*3/uL Low 150-450 [facility] Comment on above: Performed By: #### L 501.080 #### [facility] [address] [place], [address] RBC (Bld) [#/Vol] 4.79 10*6/uL Normal 4.6-6.2 [facility] Comment on above: Performed By: #### L 501.080 #### [facility] [address] [place], [address] RDW SD 38.6 fl Normal 35.1-43.9 [facility] Comment on above: Performed By: #### L 501.080 #### [facility] [address] [place], [address] WBC (Bld) [#/Vol] 9.0 10*3/uL Normal 4.4-11.0 [facility] Comment on above: Performed By: #### L 501.080 #### [facility] [address] [place], [address] Chest PA and Lateralon 11-07 Chest PA and Lateral [facility] Imaging Services [address] [place] [address] Chest PA and Lateral MR#: [id number] Acct: [id number] Name: SHOLA MARTINEZ Rep #: [id number] : 1950 M 73 From: Jackson Leroy MD PCP: Jessica Alvarez, HORTICULTURAL WORKER-C Status: [facility] Study: Chest PA and Lateral Date of Exam: 11/08/23 Exam# [id number] Ordering Dr: Eduar Donahue DO [id number] EXAM: XR Chest 2 Views INDICATION: Male, [...] CC: TARI Alvarez; Dr. Eduar Donahue DO K [employer]: Signed Normal [facility] Metabolic Prof ilon 11-08-2023 Albumin [Mass/Vol] 3.1 g/dL Low 3.2-5.0 [facility] Comment on above: Performed By: #### L 100.0100, L500.4050 #### [facility] [address] [place], [address] Albumin/Globulin [Mass ratio] 1.0 {ratio} Normal 0.9-2.4 [facility] Comment on above: Performed By: #### L 100.0100, L500.4050 #### [facility] [address] [place], [address] ALK P 82 U/L Normal 45-117 [facility] Comment on above: Performed By: #### L 100.0100, L500.4050 #### [facility] [address] [place], [address] ALT [Catalytic activity/Vol] 22 U/L Normal 16-61 [facility] Comment on above: Performed By: #### L 100.0100, L500.4050 #### [facility] [address] [place], [address] AST [Catalytic activity/Vol] 16 U/L Normal 15-37 [facility] Comment on above: Performed By: #### L 100.0100, L500.4050 #### [facility] [address] [place], [address] Bilirubin [Mass/Vol] 3.40 mg/dL High 0.20-1.00 [facility] Comment on above: Result Comment: For patients on eltrombopag therapy, use of Dimension Dunnegan TBIL is not recommended. Performed By: #### L 100.0100, L500.4050 #### [facility] [address] [place], [address] BUN/CRE 8.9 RATIO Low 10-20 [facility] Comment on above: Performed By: #### L 100.0100, L500.4050 #### [facility] [address] [place], [address] CA,Total 8.3 mg/dL Low 8.5-10.1 [facility] Comment on above: Performed By: #### L 100.0100, L500.4050 #### [facility] [address] [place], [address] Chloride [Moles/Vol] 103 mmol/L Normal 98-107 [facility] Comment on above: Performed By: #### L 100.0100, L500.4050 #### [facility] [address] [place], [address] CO2 [Moles/Vol] 26.0 mmol/L Normal 21.0-32.0 [facility] Comment on above: Performed By: #### L 100.0100, L500.4050 #### [facility] [address] [place], [address] Creatinine [Mass/Vol] 1.01 mg/dL Normal 0.70-1.30 [facility] Comment on above: Result Comment: The validity of the calculated GFR GFRAA in patients over 70 years has not been determined. Clinical correlation is essential. Performed By: #### L 100.0100, L500.4050 #### [facility] [address] [place], [address] ECRCL 87.41 ml/min Normal [facility] Comment on above: Performed By: #### L 100.0100, L500.4050 #### [facility] [address] [place], [address] EST GFR - AA 93 mL/min Normal >60 [facility] Comment on above: Result Comment: Afri can Burkin[place] GFR Calc Performed By: #### L 100.0100, L500.4050 #### [facility] [address] [place], [address] GAP 6 Normal 5-15 [facility] Comment on above: Performed By: #### L 100.0100, L500.4050 #### [facility] [address] [place], [address] GFR/1.73 sq M.predicted among non-blacks MDRD (S/P/Bld) [Vol rate/Area] 77 mL/min/{1.73_m2} Normal >60 [facility] Comment on above: Result Comment: Non- GFR Calc Performed By: #### L 100.0100, L500.4050 #### [facility] [address] [place], [address] Globulin (S) [Mass/Vol] 3.1 g/dL Normal 2.2-4.2 [facility] Comment on above: Performed By: #### L 100.0100, L500.4050 #### [facility] [address] [place], [address] Glucose [Mass/Vol] 179 mg/dL High 74-106 [facility] Comment on above: Result Comment: Fast ing Glucose result greater than or equal to 126 mg/dL suggests DIABETES MELLITUS per A.D.A. criteria. Performed By: #### L 100.0100, L500.4050 #### [facility] [address] [place], [address] Potassium [Moles/Vol] 4.3 mmol/L Normal 3.5-5.1 [facility] Comment on above: Performed By: #### L 100.0100, L500.4050 #### [facility] [address] [place], [address] Sodium [Moles/Vol] 135 mmol/L Low 136-145 [facility] Comment on above: Performed By: #### L 100.0100, L500.4050 #### [facility] [address] [place], [address] T PROT 6.2 g/dL Low 6.4-8.2 [facility] Comment on above: Performed By: #### L 100.0100, L500.4050 #### [facility] [address] [place], [address] Urea nitrogen [Mass/Vol] 9 mg/dL Normal 7-18 [facility] Comment on above: Performed By: #### L 100.0100, L500.4050 #### [facility] [address] [place], [address] Consultation - Urologyon Consultation - Urology [facility] Medical Records Department [address] [place] [address] Consultation - Urology 11/08/23 1644 MR#: [id number] Acct: [id number] Name: SHOLA MARTINEZ Rep #: [id number] : 1950 73 From: Kaushik Bryant MD PCP: Jessica Alvarez, 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 No gross hematuria. [facility] Medical History Adult failure to thrive Obesity [...] 88.8 H, Lymph % (Auto) 7.1 L, [place] % (Auto) 2.8, Eos % (Auto) 0.7, [...] 86, BUN/C (more content not included)... Normal [facility] Emergency Department Summary on 11-08-2023 Emergency Department Summary [facility] Medical Records Department [address] [place] [address] Emergency Department Summary 11/08/23 MR#: [id number] Acct: [id number] Name: SHOLA MARTINEZ Rep #: [id number] : 1950 73 From: Eduar Donahue DO PCP: Jessica Alvarez, HORTICULTURAL WORKER-C Status:ADM IN Location: MS3 [id number] HPI History of Present Illness Chief Complaint: [...] of breath. Patient denies any urinary complaints. [facility] Medical History Adult failure to [...] mucous membranes (more content not included)... Normal [facility] H AND P Exam - Hospitaliston 11-08-2023 H&P Exam - Hospitalist [facility] Medical Records Department [address] [place] [address] H P Exam - Hospitalist 11/08/23 0230 MR#: [id number] Acct: [id number] Name: SHOLA MARTINEZ Rep #: [id number] : 1950 73 From: Bridgett Villagomez MD PCP: Jessica Alvarez, HORTICULTURAL WORKER-C Status:ADM IN Location: [facility] [id number] HPI - General General Date of Admission: 11/08/23 Date of Service: 11/08/23 Chief Complaint: N/V/D, fever. HPI Narrative The patient is a 73 y/o M w/ PMHx: Chronic thrombocytopenia, Former Tobacco use, HTN, HLD, BPH, Diabetes mellitus type II, COPD, CKD per GFR trending, Obesity, Hx COVID illness who presents to the [facility] ED on 11/08/23 with history of [...] plavix and does not know exactly why. [facility] Medical History Adult failure to thrive Obesity [...] BRBPR. GENITOUR (more content not included)... Normal [facility] Kidney and Bladderon 024 Kidney and Bladder [facility] Imaging Services [address] [place], [place] [id number] Kidney and Bladder MR#: [id number] Acct: [id number] Name: SHOLA MARTINEZ Rep #: [id number] : 1950 M 73 From: Stepan Potts MD PCP: Jessica Alvarez, TARI Status: ADM IN Study: Kidney and Bladder Date of Exam: 11/08/23 Exam# [id number] Ordering Dr: Mark Anthony Guzman MD [id number] STUDY: RENAL ULTRASOUND - COMPLETE REASON FOR [...] TARI Alvarez; Dr. Mark Anthony Guzman MD K [employer]: Signed Normal [facility] Lactic Acidon 11-08-2023 Lactate [Moles/Vol] 2.2 mmol/L Invalid Interpretation Code 0.4-1.9 [facility] Comment on above: Result Comment: Crit ical Result(s) Called at: 06:53:04 11/08/2023 by: GEO VILLAGOMEZ TO KALEY JACKSON. Results read back by same. Performed By: #### L 503.6005 #### [facility] [address] [place], [address] Lactate [Moles/Vol] 2.4 mmol/L Invalid Interpretation Code 0.4-1.9 [facility] Comment on above: Order Comment: Y Result Comment: Crit ical Result(s) Called at: 02:04:08 11/08/2023 by: Celso Davis. carolyn Henson RN ED. Results read back by same. Performed By: #### L 501.080 #### [facility] [address] [place], [address] Legionella Antigen Urineon 0 11-08-2023 LEGU URINE, CATHETER Legionella Antigen result interpretation: L pneumo Ag Ur Ql Negative Presumptive negative for Legionella pneumophila serogroup 1 antigen in urine, suggesting no recent or current infection. Legionella Ag, Urine Negative (See interpretation below) Normal [facility] Comment on above: Performed By: #### M 300.4600, M300.4500 ####[facility] [address] [place], [address] M R Staph Aureus DNA by PCRo n 11-08-2023 MRSA DNA ASSAY Negative Normal Negative [facility] Comment on above: Performed By: #### L 8200.1000 ####[facility] [address] [place], [address] M100.678on 11-08-2023 M100.678 SARS-CoV-2 (COVID 19 ) Negative INFLUENZA A Negative INFLUENZA B Negative RSV PCR Negative Normal [facility] Comment on above: Performed By: #### L 400.0001, M100.8 #### [facility] [address] [place], [address] RESPIRATORY PANEL MOLECULARo n 11-08-2023 RP PANEL ADENOVIRUS Not Detected INFLUENZA A Not Detected INFLUENZA A (SUBTYPE H1) Not Detected INFLUENZA A (SUBTYPE H3) Not Detected INFLUENZA B Not Detected HUMAN METAPHNEUMO Not Detected PARAINFLUENZA 1 Not Detected PARAINFLUENZA 2 Not Detected PARAINFLUENZA 3 Not Detected PARAINFLUENZA 4 Not Detected RHINOVIRUS Not Detected RSV A Not Detected RSV B Not Detected Normal [facility] Comment on above: Performed By: #### M 100.638 ####[facility] [address] [place], [address] Strep pneumoniae Antig(UR,CS F)on 11-08-2023 STPAG URINE, CATHETER URINE INTERPRETATION Strep pneumoniae Antig(UR,CSF) Negative Urine Presumptive negative for pneumococcal pneumonia, suggesting no current or recent pneumococcal infection. Infection due to S pneumoniae cannot be ruled out since the antigen present in the sample may be below the detection limit of the test. Strep pneumo Test Negative URINE (See interpretation below) Normal [facility] Comment on above: Performed By: #### M 300.4600, M300.4500 ####[facility] [address] [place], [address] Urinalysis, Completeon 11-07 BACTERIA 3+ /hpf Normal None Seen [facility] Comment on above: Order Comment: CLEAN CATCH Performed By: #### L 400.0001, M1.678 #### [facility] [address] [place], [address] RBC 0-5 SEEN Normal 0-5 [facility] Comment on above: Order Comment: CLEAN CATCH Performed By: #### L 400.0001, M100.678 #### [facility] [address] [place], [address] WBC 25-50 SEEN Normal 0-5 [facility] Comment on above: Order Comment: CLEAN CATCH Performed By: #### L 400.0001, M100.678 #### [facility] [address] [place], [address] EPI,SQUAMOUS 0 SEEN Normal 0-5 [facility] Comment on above: Order Comment: CLEAN CATCH Performed By: #### L 400.0001, M100.678 #### [facility] [address] [place], [address] Mucus Ql (Urine sed) 0 SEEN Normal [facility] Comment on above: Order Comment: CLEAN CATCH Performed By: #### L 400.0001, M100.678 #### [facility] [address] [place], [address] Absolute lymphocyte countOrd ered By: Tanika Kunz on 11-11-2022 Lymphocytes Auto (Unsp spec) [#/Vol] 1.16 10*3/uL 0.83-4.51 [facility] Basophil percentageOrdered B y: Tanika Kunz on 11-11-2022 Basophils/100 WBC (Bld) 0.3 % 0-1 [facility] Chloride [Moles/Vol] 104 mmol/L 98-107 [facility] Eosinophils/100 WBC (Bld) 1.3 % 0-5 [facility] Glucose [Mass/Vol] 210 mg/dL 74-106 [facility] Comment on above: Glucose result great er than or equal to 200 mg/dLsuggests DIABETES MELLITUS per A.D.A. criteria. Neutrophils (Bld) [#/Vol] 4.4 10*3/uL 2.0-7.7 [facility] Neutrophils/100 WBC (Bld) 69.9 % 47-70 [facility] Potassium [Moles/Vol] 3.7 mmol/L 3.5-5.1 [facility] Sodium [Moles/Vol] 134 mmol/L 136-145 [facility] WBC (Bld) [#/Vol] 6.3 10*3/uL 4.4-11.0 [facility] Blood erythrocytes count (nu mber/volume)Ordered By: Tanika Kunz on 11-11-2022 RBC (Bld) [#/Vol] 4.41 10*6/uL 4.6-6.2 [facility] Blood hemoglobin measurement (mass/volume)Ordered By: Tanika Kunz on 11-11-2022 Hemoglobin (Bld) [Mass/Vol] 13.6 g/dL 13.0-16.5 [facility] Blood lymphocytes/100 leukoc ytesOrdered By: Tanika Kunz on 11-11-2022 Lymphocytes/100 WBC (Bld) 18.4 % 19-41 [facility] Blood monocytes/100 leukocyt esOrdered By: Tanika Kunz on 11-11-2022 Monocytes/100 WBC (Bld) 9.8 % 0-10 [facility] Blood platelet mean volumeOr dered By: Tanika Kunz on 11-11-2022 Platelet mean volume (Bld) [Entitic vol] 9.4 fL 6.2-12.0 [facility] Determination of erythrocyte mean corpuscular volume (MCV)Ordered By: Tanika Kunz on 11-11-2022 MCV (RBC) [Entitic vol] 88.2 fL 80-94 [facility] Glucose Glucometer (dC) [M ass/Vol]Ordered By: Tanika Kunz on 11-11-2022 Glucose [Mass/Vol] 236 mg/dL 74-106 [facility] Comment on above: MANAGEMENT OF PATIEN T CARE PER NURSING PROTOCOL Hematocrit Auto (Bld) [Volum e fraction]Ordered By: Tanika Kunz on 11-11-2022 Hematocrit (Bld) [Volume fraction] 38.9 % 40-54 [facility] - Chemistry and C hemistry - challengeOrdered By: Tanika Kunz on 11-11-2022 CO2 [Moles/Vol] 25.0 mmol/L 21.0-32.0 [facility] Urea nitrogen/Creatinine [Mass ratio] 11.1 mg/mg 10-20 [facility] - Hematology and Cell countsOrdered By: Tanika Kunz on 11-11-2022 Erythrocyte distribution width (RBC) [Entitic vol] 37.6 fL 35.1-43.9 [facility] Erythrocyte distribution width (RBC) [Ratio] 11.7 % 11.6-14.6 [facility] Immature granulocytes/100 WBC (Bld) 0.300 % 0.0-0.9 [facility] Comment on above: IG% - Immature Granu locytes (promyelocytes, myelocytes and metamyelocytes) > 1% indicates that a LEFT SHIFT is Present. MCH (RBC) [Entitic mass] 30.8 pg 27.0-32.0 [facility] Nucleated RBC/100 WBC (Bld) [Ratio] 0 % 0-5 [facility] MCHC Auto (RBC) [Mass/Vol]Or dered By: Tanika Kunz on 11-11-2022 MCHC (RBC) [Mass/Vol] 35.0 g/dL 32-36 [facility] No Panel InformationOrdered By: Tanika Kunz on 11-11-2022 Estimated Creatinine Clearance Calc 84.99 ml/min [facility] Estimated GFR (MDRD) Amer 107 mL/min >60 [facility] Comment on above: GFR Calc Estimated GFR (MDRD) Non-Af Amer 88 mL/min >60 [facility] Comment on above: Non- GFR Calc Platelets bldOrdered By: Natacha Kunz on 11-11-2022 Platelets (Bld) [#/Vol] 100 10*3/uL 150-450 [facility] Serum or plasma calcium yessi urement (mass/volume)Ordered By: Tanika Kunz on 11-11-2022 Calcium [Mass/Vol] 8.1 mg/dL 8.5-10.1 [facility] Serum or plasma creatinine m easurement (mass/volume)Ordered By: Tanika Kunz on 11-11-2022 Creatinine [Mass/Vol] 0.90 mg/dL 0.70-1.30 [facility] Comment on above: The validity of the calculated GFR & GFRAA in patients over 70 years has not been determined. Clinical correlation is essential. Serum or plasma urea nitroge n measurement (mass/volume)Ordered By: Tanika Kunz on 11-11-2022 Urea nitrogen [Mass/Vol] 10 mg/dL 7-18 [facility] Thin prep Papanicolaou smear with manual screeningOrdered By: Tanika Kunz on 11-11-2022 Thin prep Papanicolaou smear with manual screening 5 5-15 [facility] Basophil percentageOrdered B y: Tanika Kunz on 11-10-2022 Bilirubin [Mass/Vol] 2.70 mg/dL 0.20-1.00 [facility] Comment on above: For patients on eltr ombopag therapy, use of Dimension [place] TBIL is not recommended. Protein [Mass/Vol] 5.6 g/dL 6.4-8.2 [facility] Blood platelet adequacy dete ction by light microscopyOrdered By: Tanika Kunz on 11-10-2022 Platelets LM Ql (Bld) MOD DEC ADEQ [facility] Direct bilirubinOrdered By: Tanika Kunz on 11-10-2022 Bilirubin.direct [Mass/Vol] 0.19 mg/dL 0.00-0.30 [facility] - Chemistry and C hemistry - challengeOrdered By: Tanika Kunz on 11-10-2022 ALP [Catalytic activity/Vol] 82 U/L 45-117 [facility] ALT [Catalytic activity/Vol] 32 U/L 16-61 [facility] Globulin (S) [Mass/Vol] 3.0 g/dL 2.2-4.2 [facility] Serum or plasma albumin yessi urement (mass/volume)Ordered By: Tanika Knuz on 11-10-2022 Albumin [Mass/Vol] 2.6 g/dL 3.2-5.0 [facility] Thin prep Papanicolaou smear with manual screeningOrdered By: Tanika Kunz on 11-10-2022 Thin prep Papanicolaou smear with manual screening 42 U/L 15-37 [facility] Serum or plasma albumin/glob ulin mass ratioOrdered By: Bridgett Villagomez on 11-09-2022 Albumin/Globulin [Mass ratio] 1.0 {ratio} 0.9-2.4 [facility] Absolute lymphocyte countOrd ered By: Jann Hoffmann on 11-08-2022 Lymphocytes Auto (Unsp spec) [#/Vol] 0.60 10*3/uL 0.83-4.51 [facility] Basophil percentageOrdered B y: Jann Hoffmann on 11-08-2022 Basophil percentage 0-5 SEEN /hpf 0-5 [facility] Basophils/100 WBC (Bld) 0.2 % 0-1 [facility] Bilirubin [Mass/Vol] 2.90 mg/dL 0.20-1.00 [facility] Comment on above: For patients on eltr ombopag therapy, use of Dimension [place] TBIL is not recommended. Chloride [Moles/Vol] 100 mmol/L 98-107 [facility] Eosinophils/100 WBC (Bld) 0.8 % 0-5 [facility] Glucose [Mass/Vol] 244 mg/dL 74-106 [facility] Comment on above: Glucose result great er than or equal to 200 mg/dLsuggests DIABETES MELLITUS per A.D.A. criteria. Neutrophils (Bld) [#/Vol] 9.7 10*3/uL 2.0-7.7 [facility] Neutrophils/100 WBC (Bld) 88.3 % 47-70 [facility] Potassium [Moles/Vol] 3.9 mmol/L 3.5-5.1 [facility] Protein [Mass/Vol] 6.4 g/dL 6.4-8.2 [facility] Sodium [Moles/Vol] 134 mmol/L 136-145 [facility] WBC (Bld) [#/Vol] 11.0 10*3/uL 4.4-11.0 [facility] Bilirubin Test strip Ql (U)O rdered By: Jann Hoffmann on 11-08-2022 Bilirubin Ql (U) Negative Negative [facility] Blood erythrocytes count (nu mber/volume)Ordered By: Jann Hoffmann on 11-08-2022 RBC (Bld) [#/Vol] 4.88 10*6/uL 4.6-6.2 [facility] Blood hemoglobin measurement (mass/volume)Ordered By: Jann Hoffmann on 11-08-2022 Hemoglobin (Bld) [Mass/Vol] 15.0 g/dL 13.0-16.5 [facility] Blood lymphocytes/100 leukoc ytesOrdered By: Jann Hoffmann on 11-08-2022 Lymphocytes/100 WBC (Bld) 5.4 % 19-41 [facility] Blood manual differential co mment interpretation (narrative result)Ordered By: Jann Hoffmann on 11-08-2022 Manual differential comment Lito (Bld) [Interp] SCANNED [facility] Blood monocytes/100 leukocyt esOrdered By: Jann Hoffmann on 11-08-2022 Monocytes/100 WBC (Bld) 4.8 % 0-10 [facility] Blood platelet mean volumeOr dered By: Jann Hoffmann on 11-08-2022 Platelet mean volume (Bld) [Entitic vol] 9.6 fL 6.2-12.0 [facility] Determination of erythrocyte mean corpuscular volume (MCV)Ordered By: Jann Hoffmann on 11-08-2022 MCV (RBC) [Entitic vol] 87.9 fL 80-94 [facility] Hematocrit Auto (Bld) [Volum e fraction]Ordered By: Jann Hoffmann on 11-08-2022 Hematocrit (Bld) [Volume fraction] 42.9 % 40-54 [facility] Ketones Test strip Ql (U)Ord ered By: Jann Hoffmann on 11-08-2022 Ketones Ql (U) 5 mg/dl Negative [facility] Laboratory - Chemistry and C hemistry - challengeOrdered By: Jann Hoffmann on 11-08-2022 ALP [Catalytic activity/Vol] 115 U/L 45-117 [facility] ALT [Catalytic activity/Vol] 42 U/L 16-61 [facility] CO2 [Moles/Vol] 23.0 mmol/L 21.0-32.0 [facility] Globulin (S) [Mass/Vol] 3.0 g/dL 2.2-4.2 [facility] Urea nitrogen/Creatinine [Mass ratio] 10.4 mg/mg 10-20 [facility] - Hematology and Cell countsOrdered By: Jann Hoffmann on 11-08-2022 Erythrocyte distribution width (RBC) [Entitic vol] 38.0 fL 35.1-43.9 [facility] Erythrocyte distribution width (RBC) [Ratio] 11.9 % 11.6-14.6 [facility] Immature granulocytes/100 WBC (Bld) 0.500 % 0.0-0.9 [facility] Comment on above: IG% - Immature Granu locytes (promyelocytes, myelocytes and metamyelocytes) > 1% indicates that a LEFT SHIFT is Present. MCH (RBC) [Entitic mass] 30.7 pg 27.0-32.0 [facility] Nucleated RBC/100 WBC (Bld) [Ratio] 0 % 0-5 [facility] - Microbiology an d Antimicrobial susceptibilityOrdered By: Yifan Meza on 11-08-2022 SARS-CoV-2 (COVID-19) RNA LILLIAN+probe Ql (Unsp spec) [facility] MCHC Auto (RBC) [Mass/Vol]Or dered By: Jann Hoffmann on 11-08-2022 MCHC (RBC) [Mass/Vol] 35.0 g/dL 32-36 [facility] Mucus LM Ql (Urine sed)Order ed By: Jann Hoffmann on 11-08-2022 Mucus Ql (Urine sed) 0 SEEN /hpf [facility] Nitrite Test strip Ql (U)Ord ered By: Jann Hoffmann on 11-08-2022 Nitrite Ql (U) Negative Negative [facility] No Panel InformationOrdered By: Jann Hoffmann on 11-08-2022 Estimated Creatinine Clearance Calc 72.16 ml/min [facility] Estimated GFR (MDRD) Amer 88 mL/min >60 [facility] Comment on above: GFR Calc Estimated GFR (MDRD) Non-Af Amer 73 mL/min >60 [facility] Comment on above: Non- GFR Calc Troponin I High Sensitivity 9 pg/mL 3.0-78.0 [facility] Comment on above: Please Note: New Felicita t Units and Gender Specific Reference Ranges. For more information see Policy Stat Procedure [place] High Sensitivity Troponin (TNIH) and attachments. Platelets bldOrdered By: Marquita Hoffmann on 11-08-2022 Platelets (Bld) [#/Vol] 107 10*3/uL 150-450 [facility] Protein Test strip Ql (U)Ord ered By: Jann Hoffmann on 11-08-2022 Protein Ql (U) 15 mg/dl Negative [facility] Serum or plasma albumin yessi urement (mass/volume)Ordered By: Jann Hoffmann on 11-08-2022 Albumin [Mass/Vol] 3.4 g/dL 3.2-5.0 [facility] Serum or plasma albumin/glob ulin mass ratioOrdered By: Jann Hoffmann on 11-08-2022 Albumin/Globulin [Mass ratio] 1.1 {ratio} 0.9-2.4 [facility] Serum or plasma calcium yessi urement (mass/volume)Ordered By: Jann Hoffmann on 11-08-2022 Calcium [Mass/Vol] 8.3 mg/dL 8.5-10.1 [facility] Serum or plasma creatinine m easurement (mass/volume)Ordered By: Jann Hoffmann on 11-08-2022 Creatinine [Mass/Vol] 1.06 mg/dL 0.70-1.30 [facility] Comment on above: The validity of the calculated GFR & GFRAA in patients over 70 years has not been determined. Clinical correlation is essential. Serum or plasma urea nitroge n measurement (mass/volume)Ordered By: Jann Hoffmann on 11-08-2022 Urea nitrogen [Mass/Vol] 11 mg/dL 7-18 [facility] Serum procalcitonin measurem entOrdered By: Bridgett Villagomez on 11-08-2022 Procalcitonin [Mass/Vol] 0.06 ng/mL 0.00-0.09 [facility] Comment on above: A procalcitonin [...] Ql (Urine sed) 0 SEEN /hpf 0-5 [facility] Thin prep Papanicolaou smear with manual screeningOrdered By: Jann Hoffmann on 11-08-2022 Thin prep Papanicolaou smear with manual screening 25 U/L 15-37 [facility] Thin prep Papanicolaou smear with manual screening 11 5-15 [facility] Urine blood detectionOrdered By: Jann Hoffmann on 11-08-2022 RBC Ql (U) 25 /ul Negative [facility] RBC Ql (U) 0-5 SEEN /hpf 0-5 [facility] Urine clarityOrdered By: Marquita Hoffmann on 11-08-2022 Clarity (U) Clear Clear [facility] Urine color determinationOrd ered By: Jann Hoffmann on 11-08-2022 Color (U) Yellow Yellow [facility] Urine glucose detectionOrder ed By: Jann Hoffmann on 11-08-2022 Glucose Ql (U) 1000 mg/dl Normal [facility] Urine leukocyte esterase det ection by dipstickOrdered By: Jann Hoffmann on 11-08-2022 Leukocyte esterase Test strip Ql (U) 25 /ul Negative [facility] Urine pHOrdered By: Jann rayo on 11-08-2022 pH (U) 5.0 [pH] 5.0 - 8.0 [facility] Urine sediment bacteria coun t by microscopy (number/high power field)Ordered By: Jann Hoffmann on 11-08-2022 Bacteria LM.HPF (Urine sed) [#/Area] 0 /[HPF] None Seen [facility] Urine specific gravity measu rementOrdered By: Jann Hoffmann on 11-08-2022 Specific gravity (U) [Rel density] 1.020 1.002-1.03 0 [facility] Urobilinogen Auto test strip Ql (U)Ordered By: Jann Hoffmann on 11-08-2022 Urobilinogen Ql (U) 1 mg/dl Normal [facility] XR WRIST MINIMUM 3 VIEWS RIG [...] Date: 04/30/2021 7:45:14 AM Ordering Provider: MILAD SUNBURYDAILY [facility] ([place]) CT MAXILLOFACIAL W/O CONTRAS Ton 04-21-2021 CT [...] 02/26/2021 7:16:20 PM Ordering Provider: JACKSON Rojas [facility] ([place]) .Auto Diffon 03-01-2021 Basophil, Absolute 0.00 10 3/mcL Normal 0.00-0.19 [facility] ([place]) Comment on above: Performed By: #### C BC, ADIFF, ANEU, GFR, CMP, PRO, LAC #### [address] [address] Basophils/100 WBC (Bld) 0.1 % Normal 0.0-2.5 [facility] ([place]) Comment on above: Performed By: #### C BC, ADIFF, ANEU, GFR, CMP, PRO, LAC #### [address] [address] Eosinophil, Absolute 0.10 10 3/mcL Normal 0.00-0.40 [facility] ([place]) Comment on above: Performed By: #### C BC, ADIFF, ANEU, GFR, CMP, PRO, LAC #### [address] [address] Eosinophils/100 WBC (Bld) 1.1 % Normal 0.0-7.0 [facility] ([place]) Comment on above: Performed By: #### C BC, ADIFF, ANEU, GFR, CMP, PRO, LAC #### [address] [address] Lymphocyte, Absolute 0.40 10 3/mcL Low 0.77-3.85 [facility] ([place]) Comment on above: Performed By: #### C BC, ADIFF, ANEU, GFR, CMP, PRO, LAC #### [address] [address] Lymphocytes/100 WBC (Bld) 5.2 % Low 10.0-50.0 [facility] ([place]) Comment on above: Performed By: #### C BC, ADIFF, ANEU, GFR, CMP, PRO, LAC #### [address] [address] Monocyte, Absolute 0.60 10 3/mcL Normal 0.15-1.00 [facility] ([place]) Comment on above: Performed By: #### C BC, ADIFF, ANEU, GFR, CMP, PRO, LAC #### [address] [address] Monocytes/100 WBC (Bld) 7.6 % Normal 1.7-13.0 [facility] ([place]) Comment on above: Performed By: #### C BC, ADIFF, ANEU, GFR, CMP, PRO, LAC #### [address] [address] Neutrophils/100 WBC (Bld) 86.0 % High 37.0-80.0 [facility] ([place]) Comment on above: Performed By: #### C BC, ADIFF, ANEU, GFR, CMP, PRO, LAC #### [address] [address] .GFRon 03-01-2021 GFR 106 ml/min/1.73sqm Normal [facility] ([place]) Comment on above: Result Comment: GFR Population [...] ADIFF, ANEU, GFR, CMP, PRO, LAC #### [address] [address] GFR Non- 88 ml/min/1.73sqm Normal [facility] ([place]) Comment on above: Result Comment: GFR Population [...] ADIFF, ANEU, GFR, CMP, PRO, LAC #### [address] [address] .NEUABSon 03-01-2021 Neutrophil, Absolute 6.60 10 3/mcL High 2.85-6.16 [facility] ([place]) Comment on above: Performed By: #### C BC, ADIFF, ANEU, GFR, CMP, PRO, LAC #### [address] [address] CBCon 03-01-2021 Erythrocyte distribution width (RBC) [Ratio] 12.7 % Normal 11.5-14.5 [facility] ([place]) Comment on above: Performed By: #### C BC, ADIFF, ANEU, GFR, CMP, PRO, LAC #### [address] [address] Hematocrit (Bld) [Volume fraction] 38.6 % Low 42.0-52.0 [facility] ([place]) Comment on above: Performed By: #### C BC, ADIFF, ANEU, GFR, CMP, PRO, LAC #### [address] [address] Hgb 13.8 G/dL Low 14.0-18.0 [facility] ([place]) Comment on above: Performed By: #### C BC, ADIFF, ANEU, GFR, CMP, PRO, LAC #### [address] [address] MCH (RBC) [Entitic mass] 29.8 pg Normal 27.0-31.2 [facility] ([place]) Comment on above: Performed By: #### C BC, ADIFF, ANEU, GFR, CMP, PRO, LAC #### [address] [address] MCHC 35.6 G/dL High 31.8-35.4 [facility] ([place]) Comment on above: Performed By: #### C BC, ADIFF, ANEU, GFR, CMP, PRO, LAC #### [address] [address] MCV (RBC) [Entitic vol] 83.8 fL Normal 80.0-94.0 [facility] ([place]) Comment on above: Performed By: #### C BC, ADIFF, ANEU, GFR, CMP, PRO, LAC #### [address] [address] Platelet 256 10 3/mcL Normal 130-400 [facility] ([place]) Comment on above: Performed By: #### C BC, ADIFF, ANEU, GFR, CMP, PRO, LAC #### [address] [address] Platelet mean volume (Bld) [Entitic vol] 6.5 fL Low 7.4-10.4 [facility] ([place]) Comment on above: Performed By: #### C BC, ADIFF, ANEU, GFR, CMP, PRO, LAC #### [address] [address] RBC 4.61 10 6/mcL Normal 4.04-6.13 [facility] ([place]) Comment on above: Performed By: #### C BC, ADIFF, ANEU, GFR, CMP, PRO, LAC #### [address] [address] WBC 7.60 10 3/mcL Normal 4.60-10.80 [facility] ([place]) Comment on above: Performed By: #### C BC, ADIFF, ANEU, GFR, CMP, PRO, LAC #### [address] [address] CMPon 03-01-2021 Albumin Level 2.3 G/dL Low 3.4-4.8 [facility] ([place]) Comment on above: Performed By: #### C BC, ADIFF, ANEU, GFR, CMP, PRO, LAC #### [address] [address] Albumin/Globulin [Mass ratio] 0.8 {ratio} Low 1.1-2.5 [facility] ([place]) Comment on above: Performed By: #### C BC, ADIFF, ANEU, GFR, CMP, PRO, LAC #### [address] [address] ALP [Catalytic activity/Vol] 82 U/L Normal 40-135 [facility] ([place]) Comment on above: Performed By: #### C BC, ADIFF, ANEU, GFR, CMP, PRO, LAC #### [address] [address] ALT [Catalytic activity/Vol] 42 U/L Normal 16-63 [facility] ([place]) Comment on above: Performed By: #### C BC, ADIFF, ANEU, GFR, CMP, PRO, LAC #### [address] [address] AST [Catalytic activity/Vol] 27 U/L Normal 10-40 [facility] ([place]) Comment on above: Performed By: #### C BC, ADIFF, ANEU, GFR, CMP, PRO, LAC #### [address] [address] Bili Total 2.1 mg/dL High 0.2-1.0 [facility] ([place]) Comment on above: Result Comment: Use of this assay is not recommended for patients undergoing treatment with eltrombopag due to the potential for falsely elevated results. Performed By: #### C BC, ADIFF, ANEU, GFR, CMP, PRO, LAC #### [address] [address] BUN/Creatinine Ratio 16 ratio Normal 7-27 [facility] ([place]) Comment on above: Performed By: #### C BC, ADIFF, ANEU, GFR, CMP, PRO, LAC #### [address] [address] Calcium [Mass/Vol] 7.6 mg/dL Low 8.4-10.2 [facility] ([place]) Comment on above: Performed By: #### C BC, ADIFF, ANEU, GFR, CMP, PRO, LAC #### [address] [address] Chloride [Moles/Vol] 101 mmol/L Normal 98-107 [facility]) Comment on above: Performed By: #### C BC, ADIFF, ANEU, GFR, CMP, PRO, LAC #### [place] [address] CO2 [Moles/Vol] 22 mmol/L Low 23-31 [facility] ([place]) Comment on above: Performed By: #### C BC, ADIFF, ANEU, GFR, CMP, PRO, LAC #### [place] [address] Creatinine [Mass/Vol] 0.86 mg/dL Normal 0.70-1.30 [facility] ([place]) Comment on above: Performed By: #### C BC, ADIFF, ANEU, GFR, CMP, PRO, LAC #### [address] [address] Electrolyte Balance 14.0 mEq/L Normal [facility] ([place]) Comment on above: Performed By: #### C BC, ADIFF, ANEU, GFR, CMP, PRO, LAC #### [address] [address] Globulin 3.0 G/dL Normal [facility] ([place]) Comment on above: Performed By: #### C BC, ADIFF, ANEU, GFR, CMP, PRO, LAC #### [place] [address] Glucose [Mass/Vol] 159 mg/dL High 83-110 [facility] ([place]) Comment on above: Performed By: #### C BC, ADIFF, ANEU, GFR, CMP, PRO, LAC #### [address] [address] Potassium [Moles/Vol] 3.6 mmol/L Normal 3.5-5.1 [facility] ([place]) Comment on above: Performed By: #### C BC, ADIFF, ANEU, GFR, CMP, PRO, LAC #### [address] [address] Sodium [Moles/Vol] 137 mmol/L Normal 136-145 [facility]) Comment on above: Performed By: #### C BC, ADIFF, ANEU, GFR, CMP, PRO, LAC #### [address] [address] Total Protein 5.3 G/dL Low 6.4-8.2 [facility]) Comment on above: Performed By: #### C BC, ADIFF, ANEU, GFR, CMP, PRO, LAC #### [address] [address] Urea nitrogen [Mass/Vol] 14 mg/dL Normal 7-18 [facility]) Comment on above: Performed By: #### C BC, ADIFF, ANEU, GFR, CMP, PRO, LAC #### [address] [address] CRPon 03-01-2021 C-Reactive Protein 11.4 mg/dL High 0.0-0.9 [facility] ([place]) Comment on above: Performed By: #### C BC, ADIFF, ANEU, GFR, CMP, PRO, LAC #### [address] [address] DIMERon 03-01-2021 D-Dimer 3542 ng/mL D-DU High 0-230 [facility] ([place]) Comment on above: Result Comment: The result [...] ADIFF, ANEU, GFR, CMP, PRO, LAC #### [address] [address] Kristina 03-01-2021 Ferritin [Mass/Vol] 612.5 ng/mL High 26.0-388.0 [facility] ([place]) Comment on above: Performed By: #### C BC, ADIFF, ANEU, GFR, CMP, PRO, LAC #### [place] [address] [place], [place] [address] FIBon 03-01-2021 Fibrinogen 927 mg/dL High 334-713 [facility] ([place]) Comment on above: Performed By: #### C BC, ADIFF, ANEU, GFR, CMP, PRO, LAC #### [address] [address] LABORATORYOrdered By: Yesy Bradley on 03-01-2021 Albumin [...] LDHon 03-01-2021 LDH 289 U/L High 85-227 [facility] ([place]) Comment on above: Performed By: #### C BC, ADIFF, ANEU, GFR, CMP, PRO, LAC #### [address] [address] MGon 03-01-2021 Magnesium [Mass/Vol] 2.0 mg/dL Normal 1.8-2.4 [facility] ([place]) Comment on above: Performed By: #### C BC, ADIFF, ANEU, GFR, CMP, PRO, LAC #### [address] [address] PROon 03-01-2021 INR Coag (PPP) [Relative time] 1.2 {INR} Normal 0.9-1.2 [facility] ([place]) Comment on above: Result Comment: Miguel dard [...] ADIFF, ANEU, GFR, CMP, PRO, LAC #### [address] [address] PT Coag (PPP) [Time] 13.8 s Normal 9.7-14.3 [facility] ([place]) Comment on above: Performed By: #### C BC, ADIFF, ANEU, GFR, CMP, PRO, LAC #### [place] [address] [place], [place] [address] TROPHSon 03-01-2021 Troponin I High Sensitivity 21.8 ng/L Normal 0.0-76.2 [facility] ([place]) Comment on above: Performed By: #### C BC, ADIFF, ANEU, GFR, CMP, PRO, LAC #### [place] [address] [place], [place] [address] XR CHEST 1 VIEWon 03-01-2021 XR CHEST [...] AM Ordering Provider: CROW Rojas [facility]) .Auto Diffon 02-28-2021 Basophil, Absolute 0.00 10 3/mcL Normal 0.00-0.19 [facility] ([place]) Comment on above: Performed By: #### C BC, ADIFF, ANEU, GFR, CMP, PRO, LAC #### [address] [address] Basophils/100 WBC (Bld) 0.1 % Normal 0.0-2.5 [facility] ([place]) Comment on above: Performed By: #### C BC, ADIFF, ANEU, GFR, CMP, PRO, LAC #### [address] [address] Eosinophil, Absolute 0.00 10 3/mcL Normal 0.00-0.40 [facility] ([place]) Comment on above: Performed By: #### C BC, ADIFF, ANEU, GFR, CMP, PRO, LAC #### [address] [address] Eosinophils/100 WBC (Bld) 0.4 % Normal 0.0-7.0 [facility] ([place]) Comment on above: Performed By: #### C BC, ADIFF, ANEU, GFR, CMP, PRO, LAC #### [address] [address] Lymphocyte, Absolute 0.60 10 3/mcL Low 0.77-3.85 [facility] ([place]) Comment on above: Performed By: #### C BC, ADIFF, ANEU, GFR, CMP, PRO, LAC #### [address] [address] Lymphocytes/100 WBC (Bld) 6.8 % Low 10.0-50.0 [facility] ([place]) Comment on above: Performed By: #### C BC, ADIFF, ANEU, GFR, CMP, PRO, LAC #### [address] [address] Monocyte, Absolute 0.50 10 3/mcL Normal 0.15-1.00 [facility] ([place]) Comment on above: Performed By: #### C BC, ADIFF, ANEU, GFR, CMP, PRO, LAC #### [address] [address] Monocytes/100 WBC (Bld) 6.0 % Normal 1.7-13.0 [facility] ([place]) Comment on above: Performed By: #### C BC, ADIFF, ANEU, GFR, CMP, PRO, LAC #### [address] [address] Neutrophils/100 WBC (Bld) 86.7 % High 37.0-80.0 [facility] ([place]) Comment on above: Performed By: #### C BC, ADIFF, ANEU, GFR, CMP, PRO, LAC #### [address] [address] .GFRon 02-28-2021 GFR 103 ml/min/1.73sqm Normal [facility] ([place]) Comment on above: Result Comment: GFR Population [...] ADIFF, ANEU, GFR, CMP, PRO, LAC #### [address] [address] GFR Non- 85 ml/min/1.73sqm Normal [facility] ([place]) Comment on above: Result Comment: GFR Population [...] ADIFF, ANEU, GFR, CMP, PRO, LAC #### [address] [address] .NEUABSon 02-28-2021 Neutrophil, Absolute 7.80 10 3/mcL High 2.85-6.16 [facility] ([place]) Comment on above: Performed By: #### C BC, ADIFF, ANEU, GFR, CMP, PRO, LAC #### [address] [address] CBCon 02-28-2021 Erythrocyte distribution width (RBC) [Ratio] 12.7 % Normal 11.5-14.5 [facility] ([place]) Comment on above: Performed By: #### C BC, ADIFF, ANEU, GFR, CMP, PRO, LAC #### [place] [address] Hematocrit (Bld) [Volume fraction] 38.5 % Low 42.0-52.0 [facility] ([place]) Comment on above: Performed By: #### C BC, ADIFF, ANEU, GFR, CMP, PRO, LAC #### [place] [address] Hgb 13.8 G/dL Low 14.0-18.0 [facility] ([place]) Comment on above: Performed By: #### C BC, ADIFF, ANEU, GFR, CMP, PRO, LAC #### [address] [address] MCH (RBC) [Entitic mass] 30.2 pg Normal 27.0-31.2 [facility] ([place]) Comment on above: Performed By: #### C BC, ADIFF, ANEU, GFR, CMP, PRO, LAC #### [place] [address] MCHC 35.8 G/dL High 31.8-35.4 [facility] ([place]) Comment on above: Performed By: #### C BC, ADIFF, ANEU, GFR, CMP, PRO, LAC #### [place] [address] MCV (RBC) [Entitic vol] 84.2 fL Normal 80.0-94.0 [facility] ([place]) Comment on above: Performed By: #### C BC, ADIFF, ANEU, GFR, CMP, PRO, LAC #### [address] [place] [address] Platelet 225 10 3/mcL Normal 130-400 [facility] ([place]) Comment on above: Performed By: #### C BC, ADIFF, ANEU, GFR, CMP, PRO, LAC #### [address] [address] Platelet mean volume (Bld) [Entitic vol] 6.6 fL Low 7.4-10.4 [facility] ([place]) Comment on above: Performed By: #### C BC, ADIFF, ANEU, GFR, CMP, PRO, LAC #### [address] [address] RBC 4.57 10 6/mcL Normal 4.04-6.13 [facility] ([place]) Comment on above: Performed By: #### C BC, ADIFF, ANEU, GFR, CMP, PRO, LAC #### [place] [address] WBC 9.00 10 3/mcL Normal 4.60-10.80 [facility] ([place]) Comment on above: Performed By: #### C BC, ADIFF, ANEU, GFR, CMP, PRO, LAC #### [address] [address] CMPon 02-28-2021 Albumin Level 2.5 G/dL Low 3.4-4.8 [facility] ([place]) Comment on above: Performed By: #### C BC, ADIFF, ANEU, GFR, CMP, PRO, LAC #### [address] [address] Albumin/Globulin [Mass ratio] 0.8 {ratio} Low 1.1-2.5 [facility] ([place]) Comment on above: Performed By: #### C BC, ADIFF, ANEU, GFR, CMP, PRO, LAC #### [address] [address] ALP [Catalytic activity/Vol] 73 U/L Normal 40-135 [facility] ([place]) Comment on above: Performed By: #### C BC, ADIFF, ANEU, GFR, CMP, PRO, LAC #### [address] [address] ALT [Catalytic activity/Vol] 44 U/L Normal 16-63 [facility] ([place]) Comment on above: Performed By: #### C BC, ADIFF, ANEU, GFR, CMP, PRO, LAC #### [address] [address] AST [Catalytic activity/Vol] 29 U/L Normal 10-40 [facility] ([place]) Comment on above: Performed By: #### C BC, ADIFF, ANEU, GFR, CMP, PRO, LAC #### [address] [address] Bili Total 2.0 mg/dL High 0.2-1.0 [facility] ([place]) Comment on above: Result Comment: Use of this assay is not recommended for patients undergoing treatment with eltrombopag due to the potential for falsely elevated results. Performed By: #### C BC, ADIFF, ANEU, GFR, CMP, PRO, LAC #### [address] [address] BUN/Creatinine Ratio 15 ratio Normal 7-27 [facility] ([place]) Comment on above: Performed By: #### C BC, ADIFF, ANEU, GFR, CMP, PRO, LAC #### [address] [address] Calcium [Mass/Vol] 7.8 mg/dL Low 8.4-10.2 [facility] ([place]) Comment on above: Performed By: #### C BC, ADIFF, ANEU, GFR, CMP, PRO, LAC #### [address] [address] Chloride [Moles/Vol] 102 mmol/L Normal 98-107 [facility] ([place]) Comment on above: Performed By: #### C BC, ADIFF, ANEU, GFR, CMP, PRO, LAC #### [address] [address] CO2 [Moles/Vol] 24 mmol/L Normal 23-31 [facility] ([place]) Comment on above: Performed By: #### C BC, ADIFF, ANEU, GFR, CMP, PRO, LAC #### [address] [address] Creatinine [Mass/Vol] 0.88 mg/dL Normal 0.70-1.30 [facility] ([place]) Comment on above: Performed By: #### C BC, ADIFF, ANEU, GFR, CMP, PRO, LAC #### [address] [address] Electrolyte Balance 10.0 mEq/L Normal [facility] ([place]) Comment on above: Performed By: #### C BC, ADIFF, ANEU, GFR, CMP, PRO, LAC #### [address] [address] Globulin 3.0 G/dL Normal [facility] ([place]) Comment on above: Performed By: #### C BC, ADIFF, ANEU, GFR, CMP, PRO, LAC #### [address] [address] Glucose [Mass/Vol] 154 mg/dL High 83-110 [facility] ([place]) Comment on above: Performed By: #### C BC, ADIFF, ANEU, GFR, CMP, PRO, LAC #### [address] [address] Potassium [Moles/Vol] 3.8 mmol/L Normal 3.5-5.1 [facility] ([place]) Comment on above: Performed By: #### C BC, ADIFF, ANEU, GFR, CMP, PRO, LAC #### [address] [address] Sodium [Moles/Vol] 136 mmol/L Normal 136-145 [facility] ([place]) Comment on above: Performed By: #### C BC, ADIFF, ANEU, GFR, CMP, PRO, LAC #### [address] [address] Total Protein 5.5 G/dL Low 6.4-8.2 [facility] ([place]) Comment on above: Performed By: #### C BC, ADIFF, ANEU, GFR, CMP, PRO, LAC #### [address] [address] Urea nitrogen [Mass/Vol] 13 mg/dL Normal 7-18 [facility] ([place]) Comment on above: Performed By: #### C BC, ADIFF, ANEU, GFR, CMP, PRO, LAC #### [place] [id number] [place], [place] [address] CRPon 02-28-2021 C-Reactive Protein 11.4 mg/dL High 0.0-0.9 [facility] ([place]) Comment on above: Performed By: #### C BC, ADIFF, ANEU, GFR, CMP, PRO, LAC #### [place] [id number] [place], [place] [address] DIMERon 02-28-2021 D-Dimer 2603 ng/mL D-DU High 0-230 [facility] ([place]) Comment on above: Result Comment: The result [...] ADIFF, ANEU, GFR, CMP, PRO, LAC #### [address] [address] Kristina 02-28-2021 Ferritin [Mass/Vol] 611.0 ng/mL High 26.0-388.0 [facility] ([place]) Comment on above: Performed By: #### C BC, ADIFF, ANEU, GFR, CMP, PRO, LAC #### [address] [address] FIBon 02-28-2021 Fibrinogen 802 mg/dL High 334-713 [facility] ([place]) Comment on above: Performed By: #### C BC, ADIFF, ANEU, GFR, CMP, PRO, LAC #### [facility] [address] [place], [place] [address] LABORATORYOrdered By: Rosie Carrillo on 02-28-2021 Blood Glucose Testing Reason Routine (02/28/21 10:24 PM) [facility] Work Phone: Glucose [Mass/Vol] 169 mg/dL Invalid Interpretation Code 82 - 115 mg/dL [facility] Work Phone: LABORATORYOrdered By: Ana Bird on 02-28-2021 Blood Glucose Testing Reason Routine (02/28/21 9:43 PM) [facility] Work Phone: Glucose [Mass/Vol] 169 mg/dL Invalid Interpretation Code 82 - 115 mg/dL [facility] Work Phone: LABORATORYOrdered By: Vicki Tejada on 02-28-2021 Blood Glucose Testing Reason Routine (02/28/21 11:39 AM) [facility] Work Phone: Glucose [Mass/Vol] 157 mg/dL Invalid Interpretation Code 82 - 115 mg/dL [facility] Work Phone: LABORATORYOrdered By: Yesy Bradley [...] LDHon 02-28-2021 LDH 329 U/L High 85-227 [facility] ([place]) Comment on above: Performed By: #### C BC, ADIFF, ANEU, GFR, CMP, PRO, LAC #### [address] [address] MGon 02-28-2021 Magnesium [Mass/Vol] 2.3 mg/dL Normal 1.8-2.4 [facility] ([place]) Comment on above: Performed By: #### C BC, ADIFF, ANEU, GFR, CMP, PRO, LAC #### [address] [address] MYCOon 02-28-2021 Mycoplasma IgG Positive Normal [facility] ([place]) Comment on above: Result Comment: INTE RPRETATION [...] ADIFF, ANEU, GFR, CMP, PRO, LAC #### [address] [address] Mycoplasma IgM Negative Normal [facility] ([place]) Comment on above: Result Comment: INTE RPRETATION [...] GFR, CMP, PRO, LAC #### [place] [id number] PROon 02-28-2021 INR Coag (PPP) [Relative time] 1.1 {INR} Normal 0.9-1.2 [facility] ([place]) Comment on above: Result Comment: Miguel dard [...] ADIFF, ANEU, GFR, CMP, PRO, LAC #### [place] [address] PT Coag (PPP) [Time] 12.6 s Normal 9.7-14.3 [facility] ([place]) Comment on above: Performed By: #### C BC, ADIFF, ANEU, GFR, CMP, PRO, LAC #### [address] [address] TROPHSon 02-28-2021 Troponin I High Sensitivity 16.4 ng/L Normal 0.0-76.2 [facility] ([place]) Comment on above: Performed By: #### C BC, ADIFF, ANEU, GFR, CMP, PRO, LAC #### [place] [address] .Auto Diffon 02-27-2021 Basophil, Absolute 0.00 10 3/mcL Normal 0.00-0.19 [facility] ([place]) Comment on above: Performed By: #### C BC, ADIFF, ANEU, GFR, CMP, PRO, LAC #### [address] [address] Basophils/100 WBC (Bld) 0.0 % Normal 0.0-2.5 [facility] ([place]) Comment on above: Performed By: #### C BC, ADIFF, ANEU, GFR, CMP, PRO, LAC #### [address] [address] Eosinophil, Absolute 0.00 10 3/mcL Normal 0.00-0.40 [facility] ([place]) Comment on above: Performed By: #### C BC, ADIFF, ANEU, GFR, CMP, PRO, LAC #### [address] [address] Eosinophils/100 WBC (Bld) 0.0 % Normal 0.0-7.0 [facility] ([place]) Comment on above: Performed By: #### C BC, ADIFF, ANEU, GFR, CMP, PRO, LAC #### [address] [address] Lymphocyte, Absolute 0.30 10 3/mcL Low 0.77-3.85 [facility] ([place]) Comment on above: Performed By: #### C BC, ADIFF, ANEU, GFR, CMP, PRO, LAC #### [address] [address] Lymphocytes/100 WBC (Bld) 2.9 % Low 10.0-50.0 [facility] ([place]) Comment on above: Performed By: #### C BC, ADIFF, ANEU, GFR, CMP, PRO, LAC #### [address] [address] Monocyte, Absolute 0.30 10 3/mcL Normal 0.15-1.00 [facility] ([place]) Comment on above: Performed By: #### C BC, ADIFF, ANEU, GFR, CMP, PRO, LAC #### [address] [address] Monocytes/100 WBC (Bld) 3.3 % Normal 1.7-13.0 [facility] ([place]) Comment on above: Performed By: #### C BC, ADIFF, ANEU, GFR, CMP, PRO, LAC #### [address] [address] Neutrophils/100 WBC (Bld) 93.8 % High 37.0-80.0 [facility] ([place]) Comment on above: Performed By: #### C BC, ADIFF, ANEU, GFR, CMP, PRO, LAC #### [address] [address] .GFRon 02-27-2021 GFR 95 ml/min/1.73sqm Normal [facility] ([place]) Comment on above: Result Comment: GFR Population [...] ADIFF, ANEU, GFR, CMP, PRO, LAC #### [address] [address] GFR Non- 78 ml/min/1.73sqm Normal [facility] ([place]) Comment on above: Result Comment: GFR Population [...] ADIFF, ANEU, GFR, CMP, PRO, LAC #### [address] [address] GFR 109 ml/min/1.73sqm Normal [facility] ([place]) Comment on above: Result Comment: GFR Population [...] ADIFF, ANEU, GFR, CMP, PRO, LAC #### [address] [address] GFR Non- 90 ml/min/1.73sqm [facility] ([place]) Comment on above: Result Comment: GFR Population [...] ADIFF, ANEU, GFR, CMP, PRO, LAC #### [address] [address] .NEUABSon 02-27-2021 Neutrophil, Absolute 8.90 10 3/mcL High 2.85-6.16 [facility] ([place]) Comment on above: Performed By: #### C BC, ADIFF, ANEU, GFR, CMP, PRO, LAC #### [address] [address] ABGon 02-27-2021 Base excess Calc (Bld) [Moles/Vol] -1.0000 mmol/L Normal -2.4-2.3 [facility] ([place]) Comment on above: Performed By: #### C BC, ADIFF, ANEU, GFR, CMP, PRO, LAC #### [place] [phone] CO2 [Moles/Vol] 23 mmol/L Normal 19-24 [facility] ([place]) Comment on above: Performed By: #### C BC, ADIFF, ANEU, GFR, CMP, PRO, LAC #### [address] [address] HCO3 (Bld) [Moles/Vol] 22.3 mmol/L Normal 22.0-26.0 [facility] ([place]) Comment on above: Performed By: #### C BC, ADIFF, ANEU, GFR, CMP, PRO, LAC #### [address] [address] Oxygen (Bld) [Partial pressure] 65.0 mm[Hg] Low 80.0-100.0 [facility] ([place]) Comment on above: Performed By: #### C BC, ADIFF, ANEU, GFR, CMP, PRO, LAC #### [address] [address] Oxygen saturation in Blood 94 % Low 95-98 [facility] ([place]) Comment on above: Performed By: #### C BC, ADIFF, ANEU, GFR, CMP, PRO, LAC #### [address] [address] pCO2 29.4 mmHg Low 35.0-45.0 [facility] ([place]) Comment on above: Performed By: #### C BC, ADIFF, ANEU, GFR, CMP, PRO, LAC #### [address] [address] pH (Bld) 7.49 [pH] High 7.35-7.45 [facility] ([place]) Comment on above: Performed By: #### C BC, ADIFF, ANEU, GFR, CMP, PRO, LAC #### [address] [address] BMPon 02-27-2021 BUN/Creatinine Ratio 14 ratio Normal 7-27 [facility] ([place]) Comment on above: Performed By: #### C BC, ADIFF, ANEU, GFR, CMP, PRO, LAC #### [address] [address] Calcium [Mass/Vol] 7.6 mg/dL Low 8.4-10.2 [facility] ([place]) Comment on above: Performed By: #### C BC, ADIFF, ANEU, GFR, CMP, PRO, LAC #### [address] [address] Chloride [Moles/Vol] 100 mmol/L Normal 98-107 [facility] ([place]) Comment on above: Performed By: #### C BC, ADIFF, ANEU, GFR, CMP, PRO, LAC #### [address] [address] CO2 [Moles/Vol] 22 mmol/L Low 23-31 [facility] ([place]) Comment on above: Performed By: #### C BC, ADIFF, ANEU, GFR, CMP, PRO, LAC #### [address] [address] Creatinine [Mass/Vol] 0.95 mg/dL Normal 0.70-1.30 [facility] ([place]) Comment on above: Performed By: #### C BC, ADIFF, ANEU, GFR, CMP, PRO, LAC #### [address] [address] Electrolyte Balance 13.0 mEq/L Normal [facility] ([place]) Comment on above: Performed By: #### C BC, ADIFF, ANEU, GFR, CMP, PRO, LAC #### [address] [address] Glucose [Mass/Vol] 225 mg/dL High 83-110 [facility] ([place]) Comment on above: Performed By: #### C BC, ADIFF, ANEU, GFR, CMP, PRO, LAC #### [address] [address] Potassium [Moles/Vol] 3.4 mmol/L Low 3.5-5.1 [facility] ([place]) Comment on above: Performed By: #### C BC, ADIFF, ANEU, GFR, CMP, PRO, LAC #### [address] [address] Sodium [Moles/Vol] 135 mmol/L Low 136-145 [facility] ([place]) Comment on above: Performed By: #### C BC, ADIFF, ANEU, GFR, CMP, PRO, LAC #### [address] [address] Urea nitrogen [Mass/Vol] 13 mg/dL Normal 7-18 [facility] ([place]) Comment on above: Performed By: #### C BC, ADIFF, ANEU, GFR, CMP, PRO, LAC #### [address] [address] BUN/Creatinine Ratio 14 ratio Normal 7-27 [facility] ([place]) Comment on above: Performed By: #### C BC, ADIFF, ANEU, GFR, CMP, PRO, LAC #### [address] [address] Calcium [Mass/Vol] 7.2 mg/dL Low 8.4-10.2 [facility] ([place]) Comment on above: Performed By: #### C BC, ADIFF, ANEU, GFR, CMP, PRO, LAC #### [address] [address] Chloride [Moles/Vol] 100 mmol/L Normal 98-107 [facility] ([place]) Comment on above: Performed By: #### C BC, ADIFF, ANEU, GFR, CMP, PRO, LAC #### [address] [address] CO2 [Moles/Vol] 20 mmol/L Low 23-31 [facility] ([place]) Comment on above: Performed By: #### C BC, ADIFF, ANEU, GFR, CMP, PRO, LAC #### [address] [address] Creatinine [Mass/Vol] 0.84 mg/dL Normal 0.70-1.30 [facility] ([place]) Comment on above: Performed By: #### C BC, ADIFF, ANEU, GFR, CMP, PRO, LAC #### [address] [address] Electrolyte Balance 14.0 mEq/L Normal [facility] ([place]) Comment on above: Performed By: #### C BC, ADIFF, ANEU, GFR, CMP, PRO, LAC #### [address] [address] Glucose [Mass/Vol] 203 mg/dL High 83-110 [facility] ([place]) Comment on above: Performed By: #### C BC, ADIFF, ANEU, GFR, CMP, PRO, LAC #### [address] [address] Potassium [Moles/Vol] 3.4 mmol/L Low 3.5-5.1 [facility] ([place]) Comment on above: Performed By: #### C BC, ADIFF, ANEU, GFR, CMP, PRO, LAC #### [address] [address] Sodium [Moles/Vol] 134 mmol/L Low 136-145 [facility] ([place]) Comment on above: Performed By: #### C BC, ADIFF, ANEU, GFR, CMP, PRO, LAC #### [address] [address] Urea nitrogen [Mass/Vol] 12 mg/dL Normal 7-18 [facility] ([place]) Comment on above: Performed By: #### C BC, ADIFF, ANEU, GFR, CMP, PRO, LAC #### [address] [address] CBCon 02-27-2021 Erythrocyte distribution width (RBC) [Ratio] 12.7 % Normal 11.5-14.5 [facility] ([place]) Comment on above: Performed By: #### C BC, ADIFF, ANEU, GFR, CMP, PRO, LAC #### [address] [address] Hematocrit (Bld) [Volume fraction] 36.8 % Low 42.0-52.0 [facility] ([place]) Comment on above: Performed By: #### C BC, ADIFF, ANEU, GFR, CMP, PRO, LAC #### [place] [address] Hgb 13.3 G/dL Low 14.0-18.0 [facility] ([place]) Comment on above: Performed By: #### C BC, ADIFF, ANEU, GFR, CMP, PRO, LAC #### [address] [address] MCH (RBC) [Entitic mass] 30.2 pg Normal 27.0-31.2 [facility] ([place]) Comment on above: Performed By: #### C BC, ADIFF, ANEU, GFR, CMP, PRO, LAC #### [place] [address] MCHC 36.2 G/dL High 31.8-35.4 [facility] ([place]) Comment on above: Performed By: #### C BC, ADIFF, ANEU, GFR, CMP, PRO, LAC #### [place] [address] MCV (RBC) [Entitic vol] 83.5 fL Normal 80.0-94.0 [facility] ([place]) Comment on above: Performed By: #### C BC, ADIFF, ANEU, GFR, CMP, PRO, LAC #### [address] [address] Platelet 228 10 3/mcL Normal 130-400 [facility] ([place]) Comment on above: Performed By: #### C BC, ADIFF, ANEU, GFR, CMP, PRO, LAC #### [address] [address] Platelet mean volume (Bld) [Entitic vol] 6.7 fL Low 7.4-10.4 [facility] ([place]) Comment on above: Performed By: #### C BC, ADIFF, ANEU, GFR, CMP, PRO, LAC #### [address] [address] RBC 4.40 10 6/mcL Normal 4.04-6.13 [facility] ([place]) Comment on above: Performed By: #### C BC, ADIFF, ANEU, GFR, CMP, PRO, LAC #### [address] [address] WBC 9.50 10 3/mcL Normal 4.60-10.80 [facility] ([place]) Comment on above: Performed By: #### C BC, ADIFF, ANEU, GFR, CMP, PRO, LAC #### [address] [address] CRPon 02-27-2021 CRP [Mass/Vol] mg/L High 0.0-0.9 [facility] ([place]) Comment on above: Performed By: #### C BC, ADIFF, ANEU, GFR, CMP, PRO, LAC #### [address] [address] Kristina 02-27-2021 Ferritin [Mass/Vol] 489.0 ng/mL High 26.0-388.0 [facility] ([place]) Comment on above: Performed By: #### C BC, ADIFF, ANEU, GFR, CMP, PRO, LAC #### [address] [address] FIBon 02-27-2021 Fibrinogen 884 mg/dL High 334-713 [facility] ([place]) Comment on above: Performed By: #### C BC, ADIFF, ANEU, GFR, CMP, PRO, LAC #### [place] [address] LABORATORYOrdered By: Jaylene Gaffney on 02-27-2021 Natriuretic [...] Lactic Acid Lvl 1.5 mmol/L Normal 0.4-2.0 [facility] ([place]) Comment on above: Performed By: #### C BC, ADIFF, ANEU, GFR, CMP, PRO, LAC #### [address] [address] Lactic Acid Lvl 2.7 mmol/L High 0.4-2.0 [facility] ([place]) Comment on above: Performed By: #### C BC, ADIFF, ANEU, GFR, CMP, PRO, LAC #### [address] [address] LDHon 02-27-2021 LDH 379 U/L High 85-227 [facility] ([place]) Comment on above: Performed By: #### C BC, ADIFF, ANEU, GFR, CMP, PRO, LAC #### [address] [address] MGon 02-27-2021 Magnesium [Mass/Vol] 1.7 mg/dL Low 1.8-2.4 [facility] ([place]) Comment on above: Performed By: #### C BC, ADIFF, ANEU, GFR, CMP, PRO, LAC #### [address] [address] No Panel Informationon 02-27 Legionella Urine Ag Presumptive negative for L. pneumophila serogroup 1 antigen in urine, suggesting no recent or current infection. Legionnaire's disease cannot be ruled out since other serogroups and species may also cause disease. [facility] Work Phone: Streptococcus Pneumoniae Urine Antig Presumptive negative for pneumococcal pneumonia, suggesting no current or recent pneumococcal infection. Infection due to Strep pneumoniae cannot be ruled out since the antigen present in the sample may be below the detection limit of the test. [facility] Work Phone: Comment on above: This test has not be en evaluated on patients taking antibiotics for greater than 24 hours or on patients who have recently completed an antibiotic regimen. The accuracy of this test has not been proven in young children. PBNPon 02-27-2021 Natriuretic peptide B (Bld) [Mass/Vol] 1235 pg/mL High 0-125 [facility] ([place]) Comment on above: Result Comment: NT-p roBNP results of less than 300 pg/mL effectively rules out acute congestive heart failure with 99% negative predictive value. Performed By: #### C BC, ADIFF, ANEU, GFR, CMP, PRO, LAC #### [place] [id number] PROon 02-27-2021 INR Coag (PPP) [Relative time] 1.2 {INR} Normal 0.9-1.2 [facility] ([place]) Comment on above: Result Comment: Miguel dard [...] ADIFF, ANEU, GFR, CMP, PRO, LAC #### [place] [address] PT Coag (PPP) [Time] 13.3 s Normal 9.7-14.3 [facility] ([place]) Comment on above: Performed By: #### C BC, ADIFF, ANEU, GFR, CMP, PRO, LAC #### [address] [address] TROPHSon 02-27-2021 Troponin I High Sensitivity 34.3 ng/L Normal 0.0-76.2 [facility] ([place]) Comment on above: Performed By: #### C BC, ADIFF, ANEU, GFR, CMP, PRO, LAC #### [address] [address] .Auto Diffon 02-26-2021 Basophil, Absolute 0.00 10 3/mcL Normal 0.00-0.19 [facility] ([place]) Comment on above: Performed By: #### C BC, ADIFF, ANEU, GFR, CMP, PRO, LAC #### [address] [address] Basophils/100 WBC (Bld) 0.1 % Normal 0.0-2.5 [facility] ([place]) Comment on above: Performed By: #### C BC, ADIFF, ANEU, GFR, CMP, PRO, LAC #### [address] [address] Eosinophil, Absolute 0.00 10 3/mcL Normal 0.00-0.40 [facility] ([place]) Comment on above: Performed By: #### C BC, ADIFF, ANEU, GFR, CMP, PRO, LAC #### [address] [address] Eosinophils/100 WBC (Bld) 0.0 % Normal 0.0-7.0 [facility] ([place]) Comment on above: Performed By: #### C BC, ADIFF, ANEU, GFR, CMP, PRO, LAC #### [address] [address] Lymphocyte, Absolute 0.30 10 3/mcL Low 0.77-3.85 [facility] ([place]) Comment on above: Performed By: #### C BC, ADIFF, ANEU, GFR, CMP, PRO, LAC #### [address] [address] Lymphocytes/100 WBC (Bld) 2.8 % Low 10.0-50.0 [facility] ([place]) Comment on above: Performed By: #### C BC, ADIFF, ANEU, GFR, CMP, PRO, LAC #### [address] [address] Monocyte, Absolute 0.50 10 3/mcL Normal 0.15-1.00 [facility] ([place]) Comment on above: Performed By: #### C BC, ADIFF, ANEU, GFR, CMP, PRO, LAC #### [address] [address] Monocytes/100 WBC (Bld) 5.1 % Normal 1.7-13.0 [facility] ([place]) Comment on above: Performed By: #### C BC, ADIFF, ANEU, GFR, CMP, PRO, LAC #### [address] [address] Neutrophils/100 WBC (Bld) 92.0 % High 37.0-80.0 [facility] ([place]) Comment on above: Performed By: #### C BC, ADIFF, ANEU, GFR, CMP, PRO, LAC #### [address] [address] .GFRon 02-26-2021 GFR 74 ml/min/1.73sqm Normal [facility] ([place]) Comment on above: Result Comment: GFR Population [...] ADIFF, ANEU, GFR, CMP, PRO, LAC #### [place] [address] [place], [place] [address] GFR Non- 61 ml/min/1.73sqm Normal [facility] ([place]) Comment on above: Result Comment: GFR Population [...] ADIFF, ANEU, GFR, CMP, PRO, LAC #### [place] [address] .NEUABSon 02-26-2021 Neutrophil, Absolute 9.80 10 3/mcL High 2.85-6.16 [facility] ([place]) Comment on above: Performed By: #### C BC, ADIFF, ANEU, GFR, CMP, PRO, LAC #### [place] [address] .Urinalysis Microscopic (AO) on 02-26-2021 UA RBC 0-5 Abnormal None Seen [facility] ([place]) Comment on above: Performed By: #### C BC, ADIFF, ANEU, GFR, CMP, PRO, LAC #### [place] [address] UA Squam Epithelial None Seen Normal None Seen [facility] ([place]) Comment on above: Performed By: #### C BC, ADIFF, ANEU, GFR, CMP, PRO, LAC #### [place] [address] UA Transitional Epithelial 0-5 Abnormal [facility] ([place]) Comment on above: Performed By: #### C BC, ADIFF, ANEU, GFR, CMP, PRO, LAC #### [place] [address] UA WBC 0-5 Abnormal None Seen [facility] ([place]) Comment on above: Performed By: #### C BC, ADIFF, ANEU, GFR, CMP, PRO, LAC #### [place] [id number] CBCon 02-26-2021 Erythrocyte distribution width (RBC) [Ratio] 12.7 % Normal 11.5-14.5 [facility] ([place] Comment on above: Performed By: #### C BC, ADIFF, ANEU, GFR, CMP, PRO, LAC #### [address] [address] Hematocrit (Bld) [Volume fraction] 44.8 % Normal 42.0-52.0 [facility] ([place]) Comment on above: Performed By: #### C BC, ADIFF, ANEU, GFR, CMP, PRO, LAC #### [address] [address] Hgb 15.8 G/dL Normal 14.0-18.0 [facility] ([place]) Comment on above: Performed By: #### C BC, ADIFF, ANEU, GFR, CMP, PRO, LAC #### [address] [address] MCH (RBC) [Entitic mass] 29.9 pg Normal 27.0-31.2 [facility] ([place]) Comment on above: Performed By: #### C BC, ADIFF, ANEU, GFR, CMP, PRO, LAC #### [address] [address] MCHC 35.3 G/dL Normal 31.8-35.4 [facility] ([place]) Comment on above: Performed By: #### C BC, ADIFF, ANEU, GFR, CMP, PRO, LAC #### [address] [address] MCV (RBC) [Entitic vol] 84.6 fL Normal 80.0-94.0 [facility] ([place]) Comment on above: Performed By: #### C BC, ADIFF, ANEU, GFR, CMP, PRO, LAC #### [address] [address] Platelet 269 10 3/mcL Normal 130-400 [facility] ([place]) Comment on above: Performed By: #### C BC, ADIFF, ANEU, GFR, CMP, PRO, LAC #### [address] [address] Platelet mean volume (Bld) [Entitic vol] 6.7 fL Low 7.4-10.4 [facility] ([place] Comment on above: Performed By: #### C BC, ADIFF, ANEU, GFR, CMP, PRO, LAC #### [address] [address] RBC 5.30 10 6/mcL Normal 4.04-6.13 [facility] ([place]) Comment on above: Performed By: #### C BC, ADIFF, ANEU, GFR, CMP, PRO, LAC #### [address] [address] WBC 10.70 10 3/mcL Normal 4.60-10.80 [facility] ([place] Comment on above: Performed By: #### C BC, ADIFF, ANEU, GFR, CMP, PRO, LAC #### [address] [address] CMPon 02-26-2021 Albumin Level 3.0 G/dL Low 3.4-4.8 [facility] ([place]) Comment on above: Performed By: #### C BC, ADIFF, ANEU, GFR, CMP, PRO, LAC #### [address] [address] Albumin/Globulin [Mass ratio] 0.9 {ratio} Low 1.1-2.5 [facility] ([place] Comment on above: Performed By: #### C BC, ADIFF, ANEU, GFR, CMP, PRO, LAC #### [address] [address] ALP [Catalytic activity/Vol] 93 U/L Normal 40-135 [facility] ([place] Comment on above: Performed By: #### C BC, ADIFF, ANEU, GFR, CMP, PRO, LAC #### [address] [address] ALT [Catalytic activity/Vol] 63 U/L Normal 16-63 [facility] ([place] Comment on above: Performed By: #### C BC, ADIFF, ANEU, GFR, CMP, PRO, LAC #### [address] [address] AST [Catalytic activity/Vol] 37 U/L Normal 10-40 [facility] ([place] Comment on above: Performed By: #### C BC, ADIFF, ANEU, GFR, CMP, PRO, LAC #### [address] [address] Bili Total 2.0 mg/dL High 0.2-1.0 [facility] ([place]) Comment on above: Result Comment: Use of this assay is not recommended for patients undergoing treatment with eltrombopag due to the potential for falsely elevated results. Performed By: #### C BC, ADIFF, ANEU, GFR, CMP, PRO, LAC #### [address] [address] BUN/Creatinine Ratio 12 ratio Normal 7-27 [facility] ([place]) Comment on above: Performed By: #### C BC, ADIFF, ANEU, GFR, CMP, PRO, LAC #### [address] [address] Calcium [Mass/Vol] 8.2 mg/dL Low 8.4-10.2 [facility] ([place]) Comment on above: Performed By: #### C BC, ADIFF, ANEU, GFR, CMP, PRO, LAC #### [address] [address] Chloride [Moles/Vol] 96 mmol/L Low 98-107 [facility] ([place]) Comment on above: Performed By: #### C BC, ADIFF, ANEU, GFR, CMP, PRO, LAC #### [address] [address] CO2 [Moles/Vol] 22 mmol/L Low 23-31 [facility] ([place] Comment on above: Performed By: #### C BC, ADIFF, ANEU, GFR, CMP, PRO, LAC #### [address] [address] Electrolyte Balance 16.0 mEq/L Normal [facility] ([place]) Comment on above: Performed By: #### C BC, ADIFF, ANEU, GFR, CMP, PRO, LAC #### [address] [address] Globulin 3.3 G/dL Normal [facility] ([place]) Comment on above: Performed By: #### C BC, ADIFF, ANEU, GFR, CMP, PRO, LAC #### [address] [address] Glucose [Mass/Vol] 253 mg/dL High 83-110 [facility] ([place]) Comment on above: Performed By: #### C BC, ADIFF, ANEU, GFR, CMP, PRO, LAC #### [address] [address] Potassium [Moles/Vol] 3.5 mmol/L Normal 3.5-5.1 [facility] ([place]) Comment on above: Performed By: #### C BC, ADIFF, ANEU, GFR, CMP, PRO, LAC #### [address] [address] Sodium [Moles/Vol] 134 mmol/L Low 136-145 [facility] ([place]) Comment on above: Performed By: #### C BC, ADIFF, ANEU, GFR, CMP, PRO, LAC #### [address] [address] Total Protein 6.3 G/dL Low 6.4-8.2 [facility] ([place]) Comment on above: Performed By: #### C BC, ADIFF, ANEU, GFR, CMP, PRO, LAC #### [address] [address] Urea nitrogen [Mass/Vol] 14 mg/dL Normal 7-18 [facility] ([place]) Comment on above: Performed By: #### C BC, ADIFF, ANEU, GFR, CMP, PRO, LAC #### [address] [address] Creatinine [Mass/Vol] 1.17 mg/dL Normal 0.70-1.30 [facility] ([place]) Comment on above: Performed By: #### C BC, ADIFF, ANEU, GFR, CMP, PRO, LAC #### [address] [address] [address] ANGIOGRAPHY CHEST W/CONTR Angel 02-26-2021 CT [...] 02/26/2021 7:19:29 PM Ordering Provider: JACKSON NOVA [facility] ([place]) CT HEAD OR BRAIN W/O CONTRAS Ton [...] 02/26/2021 7:11:51 PM Ordering Provider: JACKSON NOVA [facility]) CT SPINE CERVICAL W/O CONTRA STon 02-26-2021 [...] of the cervical spine. Interpreted by: Kalia Egnle MD Preliminary Report By: Kalia Engle MD Electronically signed By Kalia Engle MD Dictated Date: 02/26/2021 7:11:59 PM Prelim Date: 02/26/2021 7:13:03 PM Sign Date: 02/26/2021 7:13:03 PM Ordering Provider: JACKSON NOVA [facility]) LABORATORYOrdered By: Caitlin Crowley on 02-26-2021 Lactate [...] Lactic Acid Lvl 3.5 mmol/L High 0.4-2.0 [facility] ([place]) Comment on above: Order Comment: Order ed secondary to Lactic Acid result greater than or equal to 2.0 Performed By: #### C BC, ADIFF, ANEU, GFR, CMP, PRO, LAC #### [place] [id number] [place], [place] [address] Lactic Acid Lvl 5.1 mmol/L High 0.4-2.0 [facility] ([place]) Comment on above: Performed By: #### C BC, ADIFF, ANEU, GFR, CMP, PRO, LAC #### [id number] [place], [place] [address] No Panel Informationon 02-26 Microscopic examination of blood, culture Culture has been received in lab and is no growth to date. Routine cultures are held for 5 days. [facility] Work Phone: PBNPon 02-26-2021 Natriuretic peptide B (Bld) [Mass/Vol] 553 pg/mL High 0-125 [facility] ([place]) Comment on above: Result Comment: NT-p roBNP results of less than 300 pg/mL effectively rules out acute congestive heart failure with 99% negative predictive value. Performed By: #### T RICARDO PBNP #### [address] [address] PROon 02-26-2021 INR Coag (PPP) [Relative time] 1.0 {INR} Normal 0.9-1.2 [facility] ([place]) Comment on above: Result Comment: Miguel mccracken [...] ADIFF, ANEU, GFR, CMP, PRO, LAC #### [address] [address] PT Coag (PPP) [Time] 12.0 s Normal 9.7-14.3 [facility] ([place]) Comment on above: Performed By: #### C BC, ADIFF, ANEU, GFR, CMP, PRO, LAC #### [address] [address] TROPHSon 02-26-2021 Troponin I High Sensitivity 22.0 ng/L Normal 0.0-76.2 [facility] ([place]) Comment on above: Performed By: #### T ARLENE GOLDEN #### [address] [address] UAon 02-26-2021 Color (U) Yellow Normal [facility] ([place]) Comment on above: Performed By: #### U A, UAMICAO #### [address] [address] Glucose (U) [Mass/Vol] 100 mg/dL Abnormal Negative [facility] ([place]) Comment on above: Performed By: #### U A, UAMICAO #### [address] [address] Ketones Ql (U) Negative Normal Negative [facility] ([place]) Comment on above: Performed By: #### U A, UAMICAO #### [address] [address] UA Appear Clear Normal Clear [facility] ([place]) Comment on above: Performed By: #### U A, UAMICAO #### [address] [address] UA Blood Trace Abnormal Negative [facility] ([place]) Comment on above: Performed By: #### U A, UAMICAO #### [place] [address] UA Leuk Est Negative Normal Negative [facility] ([place]) Comment on above: Performed By: #### U A, UAMICAO #### [place] [address] UA Nitrite Negative Normal Negative [facility] ([place]) Comment on above: Performed By: #### U A, UAMICAO #### [place] [address] UA pH 5.5 Normal 5.0 - 8.0 [facility] ([place]) Comment on above: Performed By: #### U A, UAMICAO #### [place] [address] UA Protein 30 mg/dL Normal Negative [facility] ([place]) Comment on above: Performed By: #### U A, UAMICAO #### [address] [address] UA Spec Grav 1.025 Normal 1.015-1.02 5 [facility] ([place]) Comment on above: Performed By: #### U A, UAMICAO #### [address] [address] UA Specimen Type Clean Catch Normal [facility] ([place]) Comment on above: Performed By: #### U A, UAMICAO #### [place] [address] UA Urobilinogen 0.2 E.U./dL Normal 0.2-1.0 [facility] ([place]) Comment on above: Performed By: #### U A, UAMICAO #### [address] [address] Urobilinogen (U) [Mass/Vol] Negative Normal Negative [facility] ([place]) Comment on above: Performed By: #### U DAVID Dubois #### [address] [address] CBC W Auto Differential pane l (Bld)on 02-18-2021 Basophils (Bld) [#/Vol] 10*3/uL Normal <0.11 [facility] Comment on above: Order Comment: Speci men Type: BLOOD SPECIMEN Performed By: #### 2 4320-, [facility], 1987-08 #### [facility] CLIA [id number] [address] Basophils/100 WBC (Bld) 0.2 % Normal [facility] Comment on above: Order Comment: Speci men Type: BLOOD SPECIMEN Performed By: #### 2 4320-05, [facility], 1987-08 #### [facility] CLIA [id number] [address] Differential cell count method Nom (Bld) Auto Normal [facility] Comment on above: Order Comment: Speci men Type: BLOOD SPECIMEN Performed By: #### 2 4320-05, [facility], 1987-08 #### [facility] CLIA [id number] [address] [facility] Eosinophils (Bld) [#/Vol] 10*3/uL Normal <0.46 [facility] Comment on above: Order Comment: Speci men Type: BLOOD SPECIMEN Performed By: #### 2 4320-05, [facility], 1987-08 #### [facility] CLIA [id number] [address] Eosinophils/100 WBC (Bld) 0.0 % Normal [facility] Comment on above: Order Comment: Speci men Type: BLOOD SPECIMEN Performed By: #### 2 4320-05, [facility], 1987-08 #### [facility] CLIA [id number] [address] [place] Erythrocyte distribution width (RBC) [Ratio] 11.9 % Normal 11.5-15.0 [facility] Comment on above: Order Comment: Speci men Type: BLOOD SPECIMEN Performed By: #### 2 4320-05, [facility], 1987-08 #### [facility] CLIA [id number] [address] Hematocrit (Bld) [Volume fraction] 47.5 % Normal 39.0-51.0 [facility] Comment on above: Order Comment: Speci men Type: BLOOD SPECIMEN Performed By: #### 2 4320-05, [facility], 1987-08 #### [facility] CLIA [id number] [address] Hemoglobin (Bld) [Mass/Vol] 16.4 g/dL Normal 13.0-17.0 [facility] Comment on above: Order Comment: Speci men Type: BLOOD SPECIMEN Performed By: #### 2 4320-05, [facility], 1987-08 #### [facility] CLIA [id number] [address] IMMATURE GRAN % 0.2 % Normal [facility] Comment on above: Order Comment: Speci men Type: BLOOD SPECIMEN Performed By: #### 2 4320-05, [facility], 1987-08 #### [facility] CLIA [id number] [address] IMMATURE GRAN ABS <0.03 Normal <0.10 [facility] Comment on above: Order Comment: Speci men Type: BLOOD SPECIMEN Performed By: #### 2 4320-05, [facility], 1987-08 #### [facility] CLIA [id number] [address] Lymphocytes (Bld) [#/Vol] 0.98 10*3/uL Low 1.00-4.00 [facility] Comment on above: Order Comment: Speci men Type: BLOOD SPECIMEN Performed By: #### 2 4320-05, [facility], 1987-08 #### [facility] CLIA [id number] [address] Lymphocytes/100 WBC (Bld) 20.5 % Normal [facility] Comment on above: Order Comment: Speci men Type: BLOOD SPECIMEN Performed By: #### 2 4320-05, [facility], 1987-08 #### [facility] CLIA [id number] [address] MCH (RBC) [Entitic mass] 29.7 pg Normal 26.0-34.0 [facility] Comment on above: Order Comment: Speci men Type: BLOOD SPECIMEN Performed By: #### 2 4320-05, [facility], 1987-08 #### [facility] CLIA [id number] [address] MCHC (RBC) [Mass/Vol] 34.5 g/dL Normal 30.5-36.0 [facility] Comment on above: Order Comment: Speci men Type: BLOOD SPECIMEN Performed By: #### 2 4320-05, [facility], 1987-08 #### [facility] CLIA [id number] [address] MCV (RBC) [Entitic vol] 85.9 fL Normal 80.0-100.0 [facility] Comment on above: Order Comment: Speci men Type: BLOOD SPECIMEN Performed By: #### 2 4320-05, [facility], 1987-08 #### [facility] CLIA [id number] [address] Monocytes (Bld) [#/Vol] 0.34 10*3/uL Normal <0.87 [facility] Comment on above: Order Comment: Speci men Type: BLOOD SPECIMEN Performed By: #### 2 4320-05, [facility], 1987-08 #### [facility] CLIA [id number] [address] Monocytes/100 WBC (Bld) 7.1 % Normal A [facility] Comment on above: Order Comment: Speci men Type: BLOOD SPECIMEN Performed By: #### 2 4320-05, [facility], 1987-08 #### [facility] CLIA [id number] [address] Neutrophils (Bld) [#/Vol] 3.43 10*3/uL Normal 1.45-7.50 [facility] Comment on above: Order Comment: Speci men Type: BLOOD SPECIMEN Performed By: #### 2 4320-2, [facility], 1987-08 #### [facility] CLIA [id number] [address] Neutrophils/100 WBC (Bld) 72.0 % Normal [facility] Comment on above: Order Comment: Speci men Type: BLOOD SPECIMEN Performed By: #### 2 4320-05, [facility], 1987-08 #### [facility] CLIA [id number] [address] Nucleated RBC (Bld) [#/Vol] 10*3/uL Normal <0.01 [facility] Comment on above: Order Comment: Speci men Type: BLOOD SPECIMEN Performed By: #### 2 4320-05, [facility], 1987-08 #### [facility] CLIA [id number] [address] Nucleated RBC/100 WBC (Bld) [Ratio] 0.0 /100 WBC Normal 0.0 [facility] Comment on above: Order Comment: Speci men Type: BLOOD SPECIMEN Performed By: #### 2 2, [facility], 1987-08 #### [facility] CLIA [id number] [address] Platelet mean volume (Bld) [Entitic vol] 8.9 fL Low 9.0-12.7 [facility] Comment on above: Order Comment: Speci men Type: BLOOD SPECIMEN Performed By: #### 2 4320-2, [facility], 1987-08 #### [facility] CLIA [id number] [address] [place] Platelets (Bld) [#/Vol] 139 10*3/uL Low 150-400 [facility] Comment on above: Order Comment: Speci men Type: BLOOD SPECIMEN Performed By: #### 2 432-2, [facility], 1987-08 #### [facility] CLIA [id number] [address] RBC (Bld) [#/Vol] 5.53 10*6/uL Normal 4.20-6.00 [facility] Comment on above: Order Comment: Speci men Type: BLOOD SPECIMEN Performed By: #### 2 4320-2, [facility], 1987-08 #### [facility] CLIA [id number] [address] WBC (Bld) [#/Vol] 4.77 10*3/uL Normal 3.70-11.00 [facility] Comment on above: Order Comment: Speci men Type: BLOOD SPECIMEN Performed By: #### 2 4320-05, [facility], 1987-08 #### [facility] CLIA [id number] [address] CNDSon 02-18-2021 CN HNO ID: [id number] Author: Renny Tenorio DO Service: Hospital Medicine [...] THIS TIME: No pending results Discharge Disposition Longterm Facility Activity When You Leave the Hospital Activity Resume pre-hospital activity Diet Instructions Diet Resume pre-hospital diet Follow Up Appointments Follow-Up Appointment When: In 1 week Danie Sawyer MD [place] [address] PCP Requested Referral Additional Provider to Provider Information: Treatment Team: Attending Provider: Renny Tenorio DO Primary Service: Farshad Brown FOLLOW-UP APPOINTMENTS ALREADY SCHEDULED WITH A [facility] PROVIDER: No future appointments. ALLERGIES [...] TIME O (more content not included)... Normal [facility] Comprehensive metabolic 2000 panelon 02-18-2021 Albumin [Mass/Vol] 4.1 g/dL Normal 3.9-4.9 [facility] Comment on above: Order Comment: Speci men Type: BLOOD SPECIMEN Performed By: #### 2 4321-2, [facility], 1987- #### [facility] CLIA [id number] 1 [place] [address] [place] ALP [Catalytic activity/Vol] 95 U/L Normal 38-113 [facility] Comment on above: Order Comment: Speci men Type: BLOOD SPECIMEN Performed By: #### 2 4320-2, [facility], 1987-08 #### [facility] CLIA [id number] [address] ALT With P-5'-P [Catalytic activity/Vol] 76 U/L High 10-54 [facility] Comment on above: Order Comment: Speci men Type: BLOOD SPECIMEN Performed By: #### 2 4320-2, [facility], 1987-08 #### [facility] CLIA [id number] [address] Anion gap [Moles/Vol] 14 mmol/L Normal 9-18 [facility] Comment on above: Order Comment: Speci men Type: BLOOD SPECIMEN Performed By: #### 2 2, [facility], 1987-08 #### [facility] CLIA [id number] [address] AST With P-5'-P [Catalytic activity/Vol] 72 U/L High 14-40 [facility] Comment on above: Order Comment: Speci men Type: BLOOD SPECIMEN Performed By: #### 2 4320-05, [facility], 1987-08 #### [facility] CLIA [id number] [address] Bilirubin [Mass/Vol] 1.2 mg/dL Normal 0.2-1.3 [facility] Comment on above: Order Comment: Speci men Type: BLOOD SPECIMEN Performed By: #### 2 4320-05, [facility], 1987-08 #### [facility] CLIA [id number] [address] Calcium [Mass/Vol] 8.8 mg/dL Normal 8.5-10.2 [facility] Comment on above: Order Comment: Speci men Type: BLOOD SPECIMEN Performed By: #### 2 4320-2, [facility], 1987-08 #### [facility] CLIA [id number] [address] [place] Chloride [Moles/Vol] 94 mmol/L Low 97-105 [facility] Comment on above: Order Comment: Speci men Type: BLOOD SPECIMEN Performed By: #### 2 4321-2, [facility], 1987-08 #### [facility] CLIA [id number] [address] [place] CO2 [Moles/Vol] 22 mmol/L Normal 22-30 [facility] Comment on above: Order Comment: Speci men Type: BLOOD SPECIMEN Performed By: #### 2 4320-2, [facility], 1987-08 #### [facility] CLIA [id number] [address] [place] Creatinine [Mass/Vol] 0.90 mg/dL Normal 0.73-1.22 [facility] Comment on above: Order Comment: Speci men Type: BLOOD SPECIMEN Performed By: #### 2 4320-2, [facility], 1987-08 #### [facility] CLIA [id number] [address] STATES [facility] GFR/1.73 sq M.predicted MDRD (S/P/Bld) [Vol rate/Area] mL/min/{1.73_m2} Normal [facility] Comment on above: Order [...] actual GFR. Performed By: #### 2 4320-2, [facility], 1987-08 #### [facility] CLIA [id number] [address] [place] Glucose [Mass/Vol] 104 mg/dL High 74-99 [facility] Comment on above: Order Comment: Speci men Type: BLOOD SPECIMEN Result Comment: The [place] [employer] (ADA) provides guidance for cutoff [...] Standards of Medical Care in Diabetes 2016, [place] [employer]. Diabetes Care. 2016.39(Suppl 1). Performed By: #### 2 4320-, [facility], 1987-08 #### [facility] CLIA [id number] [address] [place] Potassium [Moles/Vol] 4.0 mmol/L Normal 3.7-5.1 [facility] Comment on above: Order Comment: Speci men Type: BLOOD SPECIMEN Performed By: #### 2 4320-, [facility], 1987-08 #### [facility] CLIA [id number] [address] [place] Protein [Mass/Vol] 6.9 g/dL Normal 6.3-8.0 [facility] Comment on above: Order Comment: Speci men Type: BLOOD SPECIMEN Performed By: #### 2 4320-05, [facility], 1987-08 #### [facility] CLIA [id number] [address] [place] Sodium [Moles/Vol] 130 mmol/L Low 136-144 [facility] Comment on above: Order Comment: Speci men Type: BLOOD SPECIMEN Performed By: #### 2 4320-, [facility], 1987-08 #### [facility] CLIA [id number] [address] [place] Urea nitrogen [Mass/Vol] 11 mg/dL Normal 9-24 [facility] Comment on above: Order Comment: Speci men Type: BLOOD SPECIMEN Performed By: #### 2 4320-[facility], 1987-08 #### [facility] CLIA [id number] [address] CBC W Auto Differential pane l (Bld)on 02-17-2021 Basophils (Bld) [#/Vol] 10*3/uL Normal <0.11 A [facility] Comment on above: Order Comment: Speci men Type: BLOOD SPECIMEN Performed By: #### 5 7021-8 #### [facility] CLIA [id number] [address] Basophils/100 WBC (Bld) 0.0 % Normal A [facility] Comment on above: Order Comment: Speci men Type: BLOOD SPECIMEN Performed By: #### 5 7021-8 #### [facility] CLIA [id number] [address] Differential cell count method Nom (Bld) Auto Normal [facility] Comment on above: Order Comment: Speci men Type: BLOOD SPECIMEN Performed By: #### 5 7021-8 #### [facility] CLIA [id number] [address] Eosinophils (Bld) [#/Vol] 10*3/uL Normal <0.46 [facility] Comment on above: Order Comment: Speci men Type: BLOOD SPECIMEN Performed By: #### 5 7021-8 #### [facility] CLIA [id number] [address] Eosinophils/100 WBC (Bld) 0.0 % Normal [facility] Comment on above: Order Comment: Speci men Type: BLOOD SPECIMEN Performed By: #### 5 7021-8 #### [facility] CLIA [id number] [address] Erythrocyte distribution width (RBC) [Ratio] 11.8 % Normal 11.5-15.0 [facility] Comment on above: Order Comment: Speci men Type: BLOOD SPECIMEN Performed By: #### 5 7021-8 #### [facility] CLIA [id number] [address] Hematocrit (Bld) [Volume fraction] 42.7 % Normal 39.0-51.0 [facility] Comment on above: Order Comment: Speci men Type: BLOOD SPECIMEN Performed By: #### 5 7021-8 #### [facility] CLIA [id number] [address] Hemoglobin (Bld) [Mass/Vol] 15.0 g/dL Normal 13.0-17.0 [facility] Comment on above: Order Comment: Speci men Type: BLOOD SPECIMEN Performed By: #### 5 7021-8 #### [facility] CLIA [id number] [address] IMMATURE GRAN % 0.3 % Normal [facility] Comment on above: Order Comment: Speci men Type: BLOOD SPECIMEN Performed By: #### 5 7021-8 #### [facility] CLIA [id number] [address] IMMATURE GRAN ABS <0.03 Normal <0.10 [facility] Comment on above: Order Comment: Speci men Type: BLOOD SPECIMEN Performed By: #### 5 7021-8 #### [facility] CLIA [id number] [address] Lymphocytes (Bld) [#/Vol] 0.59 10*3/uL Low 1.00-4.00 [facility] Comment on above: Order Comment: Speci men Type: BLOOD SPECIMEN Performed By: #### 5 7021-8 #### [facility] CLIA [id number] [address] Lymphocytes/100 WBC (Bld) 20.3 % Normal [facility] Comment on above: Order Comment: Speci men Type: BLOOD SPECIMEN Performed By: #### 5 7021-8 #### [facility] CLIA [id number] [address] MCH (RBC) [Entitic mass] 30.1 pg Normal 26.0-34.0 [facility] Comment on above: Order Comment: Speci men Type: BLOOD SPECIMEN Performed By: #### 5 7021-8 #### [facility] CLIA [id number] [address] MCHC (RBC) [Mass/Vol] 35.1 g/dL Normal 30.5-36.0 [facility] Comment on above: Order Comment: Speci men Type: BLOOD SPECIMEN Performed By: #### 5 7021-8 #### [facility] CLIA [id number] [address] MCV (RBC) [Entitic vol] 85.6 fL Normal 80.0-100.0 [facility] Comment on above: Order Comment: Speci men Type: BLOOD SPECIMEN Performed By: #### 5 7021-8 #### [facility] CLIA [id number] [address] Monocytes (Bld) [#/Vol] 0.29 10*3/uL Normal <0.87 [facility] Comment on above: Order Comment: Speci men Type: BLOOD SPECIMEN Performed By: #### 5 7021-8 #### [facility] CLIA [id number] [address] Monocytes/100 WBC (Bld) 10.0 % Normal [facility] Comment on above: Order Comment: Speci men Type: BLOOD SPECIMEN Performed By: #### 5 7021-8 #### [facility] CLIA [id number] [address] Neutrophils (Bld) [#/Vol] 2.01 10*3/uL Normal 1.45-7.50 [facility] Comment on above: Order Comment: Speci men Type: BLOOD SPECIMEN Performed By: #### 5 7021-8 #### [facility] CLIA [id number] [address] Neutrophils/100 WBC (Bld) 69.4 % Normal [facility] Comment on above: Order Comment: Speci men Type: BLOOD SPECIMEN Performed By: #### 5 7021-8 #### [facility] CLIA [id number] [address] Nucleated RBC (Bld) [#/Vol] 10*3/uL Normal <0.01 [facility] Comment on above: Order Comment: Speci men Type: BLOOD SPECIMEN Performed By: #### 5 7021-8 #### [facility] CLIA [id number] [address] Nucleated RBC/100 WBC (Bld) [Ratio] 0.0 /100 WBC Normal 0.0 [facility] Comment on above: Order Comment: Speci men Type: BLOOD SPECIMEN Performed By: #### 5 7021-8 #### [facility] CLIA [id number] [address] Platelet mean volume (Bld) [Entitic vol] 9.0 fL Normal 9.0-12.7 [facility] Comment on above: Order Comment: Speci men Type: BLOOD SPECIMEN Performed By: #### 5 7021-8 #### [facility] CLIA [id number] [address] [facility] Platelets (Bld) [#/Vol] 109 10*3/uL Low 150-400 [facility] Comment on above: Order Comment: Speci men Type: BLOOD SPECIMEN Performed By: #### 5 7021-8 #### [facility] CLIA [id number] [address] [facility] RBC (Bld) [#/Vol] 4.99 10*6/uL Normal 4.20-6.00 [facility] Comment on above: Order Comment: Speci men Type: BLOOD SPECIMEN Performed By: #### 5 7021-8 #### [facility] CLIA [id number] [address] [place] WBC (Bld) [#/Vol] 2.90 10*3/uL Low 3.70-11.00 [facility] Comment on above: Order Comment: Speci men Type: BLOOD SPECIMEN Performed By: #### 5 7021-8 #### [facility] CLIA [id number] [address] CRP SerPl-mCncon 02-17-2021 CRP [Mass/Vol] mg/L Normal <0.9 [facility] Comment on above: Order Comment: Speci men Type: BLOOD SPECIMEN Performed By: #### 2 4320-2, [facility], 1987-08 #### [facility] CLIA [id number] [address] Comprehensive metabolic 2000 panelon 02-17-2021 Albumin [Mass/Vol] 3.7 g/dL Low 3.9-4.9 [facility] Comment on above: Order Comment: Speci men Type: BLOOD SPECIMEN Performed By: #### 2 4320-2, [facility], 1987-08 #### [facility] CLIA [id number] [address] ALP [Catalytic activity/Vol] 85 U/L Normal 38-113 [facility] Comment on above: Order Comment: Speci men Type: BLOOD SPECIMEN Performed By: #### 2 4320-2, [facility], 1987-08 #### [facility] CLIA [id number] [address] ALT With P-5'-P [Catalytic activity/Vol] 51 U/L Normal 10-54 [facility] Comment on above: Order Comment: Speci men Type: BLOOD SPECIMEN Performed By: #### 2 4320-2, [facility], 1987-08 #### [facility] CLIA [id number] [address] Anion gap [Moles/Vol] 13 mmol/L Normal 9-18 [facility] Comment on above: Order Comment: Speci men Type: BLOOD SPECIMEN Performed By: #### 2 4320-2, [facility], 1987-08 #### [facility] CLIA [id number] [address] AST With P-5'-P [Catalytic activity/Vol] 48 U/L High 14-40 [facility] Comment on above: Order Comment: Speci men Type: BLOOD SPECIMEN Performed By: #### 2 4320-2, [facility], 1987-08 #### [facility] CLIA [id number] [address] OF [facility] Bilirubin [Mass/Vol] 1.2 mg/dL Normal 0.2-1.3 [facility] Comment on above: Order Comment: Speci men Type: BLOOD SPECIMEN Performed By: #### 2 4320-2, [facility], 1987-08 #### [facility] CLIA [id number] [address] STATES [facility] Calcium [Mass/Vol] 8.1 mg/dL Low 8.5-10.2 [facility] Comment on above: Order Comment: Speci men Type: BLOOD SPECIMEN Performed By: #### 2 4320-05, [facility], 1987-08 #### [facility] CLIA [id number] [address] [place] Chloride [Moles/Vol] 98 mmol/L Normal 97-105 [facility] Comment on above: Order Comment: Speci men Type: BLOOD SPECIMEN Performed By: #### 2 4320-05, [facility], 1987-08 #### [facility] CLIA [id number] [address] [place] CO2 [Moles/Vol] 21 mmol/L Low 22-30 [facility] Comment on above: Order Comment: Speci men Type: BLOOD SPECIMEN Performed By: #### 2 2, [facility], 1987-08 #### [facility] CLIA [id number] [address] [place] Creatinine [Mass/Vol] 0.87 mg/dL Normal 0.73-1.22 [facility] Comment on above: Order Comment: Speci men Type: BLOOD SPECIMEN Performed By: #### 2 4320-, [facility], 1987-08 #### [facility] CLIA [id number] 1 [place] [id number] [place] GFR/1.73 sq M.predicted MDRD (S/P/Bld) [Vol rate/Area] mL/min/{1.73_m2} Normal [facility] Comment on above: Order [...] actual GFR. Performed By: #### 2 4321-2, [facility], 1987-08 #### [facility] CLIA [id number] 1 [place] [address] [place] Glucose [Mass/Vol] 119 mg/dL High 74-99 [facility] Comment on above: Order Comment: Speci men Type: BLOOD SPECIMEN Result Comment: The [place] Diabetes [employer] (ADA) provides guidance for cutoff [...] Standards of Medical Care in Diabetes 2016, [place] [employer]. Diabetes Care. 2016.39(Suppl 1). Performed By: #### 2 4321-2, [facility], 1987-08 #### [facility] CLIA [id number] 1 [place] [id number] [place] Potassium [Moles/Vol] 4.0 mmol/L Normal 3.7-5.1 [facility] Comment on above: Order Comment: Speci men Type: BLOOD SPECIMEN Performed By: #### 2 4320-2, [facility], 1987-08 #### [facility] CLIA [id number] [address] Protein [Mass/Vol] 6.2 g/dL Low 6.3-8.0 [facility] Comment on above: Order Comment: Speci men Type: BLOOD SPECIMEN Performed By: #### 2 4320-2, [facility], 1987-08 #### [facility] CLIA [id number] [address] Sodium [Moles/Vol] 132 mmol/L Low 136-144 [facility] Comment on above: Order Comment: Speci men Type: BLOOD SPECIMEN Performed By: #### 2 2, [facility], 1987-08 #### [facility] CLIA [id number] [address] Urea nitrogen [Mass/Vol] 13 mg/dL Normal 9-24 [facility] Comment on above: Order Comment: Speci men Type: BLOOD SPECIMEN Performed By: #### 2 4320-2, [facility], 1987-08 #### [facility] CLIA [id number] [address] FERRITIN BLDon 02-17-2021 Ferritin [Mass/Vol] 316.9 ng/mL Normal 30.3-565.7 [facility] Comment on above: Order Comment: Speci men Type: BLOOD SPECIMEN Performed By: #### 2 4320-2, [facility], 1987-08 #### [facility] CLIA [id number] [address] NURSING PROGon 02-17-2021 NURSING PROG HNO ID: [id number] Author: Jalen Cunningham RN Service: ? Author Type: Registered Nurse Type: Nursing Progress Note Filed: 02/17/2021 9:28 AM Note Text: O2 sat on room air at rest 96% O2 sat on room air w/exertion 99% (patient unable to walk, weakness. Stood for about 2 minutes) Normal [facility] ALLIED HEALTHon 02-16-2021 ALLIED HEALTH HNO ID: [id number] Author: Dana Miller Service: Infection Prevention Author [...] 02/15/2021 SIGNATURE: Dana Miller PATIENT NAME: Shola Matrinez DATE: February 16, 2021 TIME: 8:22 AM PAGER/CONTACT #: Infection Prevention, [id number] Infection Prevention after hours/weekend pager: [phone] Normal [facility] CBC W Auto Differential pane l (Bld)on 02-16-2021 Basophils (Bld) [#/Vol] 10*3/uL Normal <0.11 [facility] Comment on above: Order Comment: Speci men Type: BLOOD SPECIMEN Performed By: #### 2 4320-05, [facility], 1987-08 #### [facility] CLIA [id number] [address] STATES OF [facility] Basophils/100 WBC (Bld) 0.0 % Normal [facility] Comment on above: Order Comment: Speci men Type: BLOOD SPECIMEN Performed By: #### 2 4320-05, [facility], 1987-08 #### [facility] CLIA [id number] [address] [place] Differential cell count method Nom (Bld) Auto Normal [facility] Comment on above: Order Comment: Speci men Type: BLOOD SPECIMEN Performed By: #### 2 4320-05, [facility], 1987-08 #### [facility] CLIA [id number] [address] Eosinophils (Bld) [#/Vol] 10*3/uL Normal <0.46 [facility] Comment on above: Order Comment: Speci men Type: BLOOD SPECIMEN Performed By: #### 2 4320-05, [facility], 1987-08 #### [facility] CLIA [id number] [address] Eosinophils/100 WBC (Bld) 0.0 % Normal [facility] Comment on above: Order Comment: Speci men Type: BLOOD SPECIMEN Performed By: #### 2 4320-05, [facility], 1987-08 #### [facility] CLIA [id number] [address] Erythrocyte distribution width (RBC) [Ratio] 11.7 % Normal 11.5-15.0 [facility] Comment on above: Order Comment: Speci men Type: BLOOD SPECIMEN Performed By: #### 2 4320-05, [facility], 1987-08 #### [facility] CLIA [id number] [address] Hematocrit (Bld) [Volume fraction] 42.1 % Normal 39.0-51.0 [facility] Comment on above: Order Comment: Speci men Type: BLOOD SPECIMEN Performed By: #### 2 4320-05, [facility], 1987-08 #### [facility] CLIA [id number] [address] Hemoglobin (Bld) [Mass/Vol] 14.6 g/dL Normal 13.0-17.0 [facility] Comment on above: Order Comment: Speci men Type: BLOOD SPECIMEN Performed By: #### 2 4320-05, [facility], 1987-08 #### [facility] CLIA [id number] [address] IMMATURE GRAN % 0.4 % Normal [facility] Comment on above: Order Comment: Speci men Type: BLOOD SPECIMEN Performed By: #### 2 4320-05, [facility], 1987-08 #### [facility] CLIA [id number] [address] IMMATURE GRAN ABS <0.03 Normal <0.10 [facility] Comment on above: Order Comment: Speci men Type: BLOOD SPECIMEN Performed By: #### 2 4320-05, [facility], 1987-08 #### [facility] CLIA [id number] [address] Lymphocytes (Bld) [#/Vol] 0.53 10*3/uL Low 1.00-4.00 [facility] Comment on above: Order Comment: Speci men Type: BLOOD SPECIMEN Performed By: #### 2 4320-05, [facility], 1987-08 #### [facility] CLIA [id number] [address] Lymphocytes/100 WBC (Bld) 19.3 % Normal [facility] Comment on above: Order Comment: Speci men Type: BLOOD SPECIMEN Performed By: #### 2 4320-05, [facility], 1987-08 #### [facility] CLIA [id number] [address] MCH (RBC) [Entitic mass] 30.0 pg Normal 26.0-34.0 [facility] Comment on above: Order Comment: Speci men Type: BLOOD SPECIMEN Performed By: #### 2 4320-05, [facility], 1987-08 #### [facility] CLIA [id number] [address] MCHC (RBC) [Mass/Vol] 34.7 g/dL Normal 30.5-36.0 [facility] Comment on above: Order Comment: Speci men Type: BLOOD SPECIMEN Performed By: #### 2 4320-05, [facility], 1987-08 #### [facility] CLIA [id number] [address] MCV (RBC) [Entitic vol] 86.4 fL Normal 80.0-100.0 [facility] Comment on above: Order Comment: Speci men Type: BLOOD SPECIMEN Performed By: #### 2 4320-2, [facility], 1987-08 #### [facility] CLIA [id number] [address] Monocytes (Bld) [#/Vol] 0.36 10*3/uL Normal <0.87 [facility] Comment on above: Order Comment: Speci men Type: BLOOD SPECIMEN Performed By: #### 2 4320-05, [facility], 1987-08 #### [facility] CLIA [id number] [address] Monocytes/100 WBC (Bld) 13.1 % Normal A [facility] Comment on above: Order Comment: Speci men Type: BLOOD SPECIMEN Performed By: #### 2 4320-05, [facility], 1987-08 #### [facility] CLIA [id number] [address] Neutrophils (Bld) [#/Vol] 1.84 10*3/uL Normal 1.45-7.50 [facility] Comment on above: Order Comment: Speci men Type: BLOOD SPECIMEN Performed By: #### 2 4320-05, [facility], 1987-08 #### [facility] CLIA [id number] [address] Neutrophils/100 WBC (Bld) 67.2 % Normal [facility] Comment on above: Order Comment: Speci men Type: BLOOD SPECIMEN Performed By: #### 2 4320-05, [facility], 1987-08 #### [facility] CLIA [id number] [address] Nucleated RBC (Bld) [#/Vol] 10*3/uL Normal <0.01 [facility] Comment on above: Order Comment: Speci men Type: BLOOD SPECIMEN Performed By: #### 2 4320-2, [facility], 1987-08 #### [facility] CLIA [id number] [address] Nucleated RBC/100 WBC (Bld) [Ratio] 0.0 /100 WBC Normal 0.0 [facility] Comment on above: Order Comment: Speci men Type: BLOOD SPECIMEN Performed By: #### 2 2, [facility], 1987-08 #### [facility] CLIA [id number] [address] Platelet mean volume (Bld) [Entitic vol] 9.0 fL Normal 9.0-12.7 [facility] Comment on above: Order Comment: Speci men Type: BLOOD SPECIMEN Performed By: #### 2 4320-05, [facility], 1987-08 #### [facility] CLIA [id number] [address] Platelets (Bld) [#/Vol] 101 10*3/uL Low 150-400 [facility] Comment on above: Order Comment: Speci men Type: BLOOD SPECIMEN Performed By: #### 2 4320-05, [facility], 1987-08 #### [facility] CLIA [id number] [address] RBC (Bld) [#/Vol] 4.87 10*6/uL Normal 4.20-6.00 [facility] Comment on above: Order Comment: Speci men Type: BLOOD SPECIMEN Performed By: #### 2 4320-05, [facility], 1987-08 #### [facility] CLIA [id number] [address] WBC (Bld) [#/Vol] 2.74 10*3/uL Low 3.70-11.00 [facility] Comment on above: Order Comment: Speci men Type: BLOOD SPECIMEN Performed By: #### 2 4320-2, [facility], 1987-08 #### [facility] CLIA [id number] [address] Comprehensive metabolic 2000 panelon 11-17-2021 Albumin [Mass/Vol] 3.8 g/dL Low 3.9-4.9 [facility] Comment on above: Order Comment: Speci men Type: BLOOD SPECIMEN Performed By: #### 2 4323-8 #### [facility] CLIA [id number] [address] ALP [Catalytic activity/Vol] 90 U/L Normal 38-113 [facility] Comment on above: Order Comment: Speci men Type: BLOOD SPECIMEN Performed By: #### 2 4323-8 #### [facility] CLIA [id number] [address] ALT With P-5'-P [Catalytic activity/Vol] 57 U/L High 10-54 [facility] Comment on above: Order Comment: Speci men Type: BLOOD SPECIMEN Performed By: #### 2 4323-8 #### [facility] CLIA [id number] [address] Anion gap [Moles/Vol] 12 mmol/L Normal 9-18 [facility] Comment on above: Order Comment: Speci men Type: BLOOD SPECIMEN Performed By: #### 2 4323-8 #### [facility] CLIA [id number] [address] AST With P-5'-P [Catalytic activity/Vol] 60 U/L High 14-40 [facility] Comment on above: Order Comment: Speci men Type: BLOOD SPECIMEN Performed By: #### 2 4323-8 #### [facility] CLIA [id number] [address] Bilirubin [Mass/Vol] 1.4 mg/dL High 0.2-1.3 [facility] Comment on above: Order Comment: Speci men Type: BLOOD SPECIMEN Performed By: #### 2 4323-8 #### [facility] CLIA [id number] [address] Calcium [Mass/Vol] 8.2 mg/dL Low 8.5-10.2 [facility] Comment on above: Order Comment: Speci men Type: BLOOD SPECIMEN Performed By: #### 2 4323-8 #### [facility] CLIA [id number] [address] Chloride [Moles/Vol] 96 mmol/L Low 97-105 [facility] Comment on above: Order Comment: Speci men Type: BLOOD SPECIMEN Performed By: #### 2 4323-8 #### [facility] CLIA [id number] [address] CO2 [Moles/Vol] 24 mmol/L Normal 22-30 [facility] Comment on above: Order Comment: Speci men Type: BLOOD SPECIMEN Performed By: #### 2 4323-8 #### [facility] CLIA [id number] [address] Creatinine [Mass/Vol] 1.00 mg/dL Normal 0.73-1.22 [facility] Comment on above: Order Comment: Speci men Type: BLOOD SPECIMEN Performed By: #### 2 4323-8 #### [facility] CLIA [id number] [address] GFR/1.73 sq M.predicted MDRD (S/P/Bld) [Vol rate/Area] mL/min/{1.73_m2} Normal [facility] Comment on above: Order [...] GFR. Performed By: #### 2 4323-8 #### [facility] CLIA [id number] [address] [place] Glucose [Mass/Vol] 112 mg/dL High 74-99 [facility] Comment on above: Order Comment: Speci men Type: BLOOD SPECIMEN Result Comment: The [place] Diabetes Association (ADA) provides guidance for cutoff [...] Standards of Medical Care in Diabetes 2016, [place] [employer]. Diabetes Care. 2016.39(Suppl 1). Performed By: #### 2 4323-8 #### [facility] CLIA [id number] [address] [place] Potassium [Moles/Vol] 4.0 mmol/L Normal 3.7-5.1 [facility] Comment on above: Order Comment: Speci men Type: BLOOD SPECIMEN Performed By: #### 2 4323-8 #### [facility] CLIA [id number] [address] [place] Protein [Mass/Vol] 6.3 g/dL Normal 6.3-8.0 [facility] Comment on above: Order Comment: Speci men Type: BLOOD SPECIMEN Performed By: #### 2 4323-8 #### [facility] CLIA [id number] 1 [place] [address] [place] Sodium [Moles/Vol] 132 mmol/L Low 136-144 [facility] Comment on above: Order Comment: Speci men Type: BLOOD SPECIMEN Performed By: #### 2 4323-8 #### [facility] CLIA [id number] [address] [place] Urea nitrogen [Mass/Vol] 11 mg/dL Normal 9-24 [facility] Comment on above: Order Comment: Speci men Type: BLOOD SPECIMEN Performed By: #### 2 4323-8 #### [facility] CLIA [id number] [address] HAV IgM Ser Qlon 02-16-2021 HAV IgM Ql (S) Negative Normal Negative [facility] Comment on above: Order Comment: Speci men Type: BLOOD SPECIMEN Performed By: #### 2 4320-2, [facility], 1987-08 #### [facility] CLIA [id number] [address] HBV core IgM Ser Qlon 2020 HBV core IgM Ql (S) Negative Normal Negative [facility] Comment on above: Order Comment: Speci men Type: BLOOD SPECIMEN Performed By: #### 2 4320-2, [facility], 1987-08 #### [facility] CLIA [id number] [address] HBV surface Ab IA Ql (S)on 04-18-2020 HBV surface Ag Ql (S) Negative Normal Negative [facility] Comment on above: Order Comment: Speci men Type: BLOOD SPECIMEN Performed By: #### 2 4320-2, [facility], 1987-08 #### [facility] CLIA [id number] [address] HCV Ab Ser Qlon 02-16-2021 HCV Ab Ql (S) Negative Normal Negative [facility] Comment on above: Order Comment: Speci men Type: BLOOD SPECIMEN Performed By: #### 2 4320-2, [facility], 1987-08 #### [facility] CLIA [id number] [address] NURSING PROGon 02-16-2021 NURSING PROG HNO ID: [id number] Author: Alejandrina Morales RN Service: ? Author Type: Registered Nurse Type: Nursing Progress Note Filed: 02/16/2021 6:38 PM Note Text: Pts O2 sat was 96% on RA.... stood pt up for aprox a minute and O2 sat was 99% ... pt became unstable and sat back down in the bed. Normal [facility] THERAPY NTon 02-16-2021 THERAPY NT HNO ID: [id number] Author: DANA Dyer/Patrick Service: Occupational Therapy Author Type: Occupational Therapist Type: Therapy (PT/OT/Speech/Resp) Filed: 02/16/2021 3:52 PM Note Text: Occupational Therapy Evaluation SERVICE DATE: 02/16/2021 SERVICE TIME: 1525 to 1544 ROOM: [place] [address] Recommended Discharge Disposition: Subacute/SNF Recommended Discharge Disposition [...] transfers wit (more content not included)... Normal [facility] THERAPY NT HNO ID: [id number] Author: Elsa Agee, PT Service: Physical Therapy Author Type: Physical Therapist Type: Therapy (PT/OT/Speech/Resp) Filed: 02/16/2021 3:15 PM Note Text: Physical Therapy Evaluation SERVICE DATE: 02/16/2021 SERVICE TIME: 1426 to 1452 ROOM: [id number] Recommended Discharge Disposition: Subacute/SNF Recommended Discharge Disposition [...] while t (more content not included)... Normal [facility] ALLIED HEALTHon 02-15-2021 ALLIED HEALTH HNO ID: [id number] Author: RT Uzair(R) Service: ? Author Type: [employer] Type: Allied Health Filed: 02/14/2021 11:50 PM [...] RT(R) February 14, 2021 11:50 PM Normal [facility] Basic metabolic 2000 panelon 02-15-2021 Anion gap [Moles/Vol] 13 mmol/L Normal 9-18 [facility] Comment on above: Order Comment: Speci men Type: BLOOD SPECIMEN Performed By: #### 2 4320-, [facility], 1987-08 #### [facility] CLIA [id number] [address] [place] Calcium [Mass/Vol] 8.5 mg/dL Normal 8.5-10.2 [facility] Comment on above: Order Comment: Speci men Type: BLOOD SPECIMEN Performed By: #### 2 4320-2, [facility], 1987-08 #### [facility] CLIA [id number] [address] [place] Chloride [Moles/Vol] 93 mmol/L Low 97-105 [facility] Comment on above: Order Comment: Speci men Type: BLOOD SPECIMEN Performed By: #### 2 4320-2, [facility], 1987-08 #### [facility] CLIA [id number] 1 [place] [address] [place] CO2 [Moles/Vol] 23 mmol/L Normal 22-30 [facility] Comment on above: Order Comment: Speci men Type: BLOOD SPECIMEN Performed By: #### 2 4320-2, [facility], 1987-08 #### [facility] CLIA [id number] 1 [place] [address] [place] Creatinine [Mass/Vol] 1.04 mg/dL Normal 0.73-1.22 [facility] Comment on above: Order Comment: Speci men Type: BLOOD SPECIMEN Performed By: #### 2 4321-2, [facility], 1987-08 #### [facility] CLIA [id number] 1 [place] [address] [place] GFR/1.73 sq M.predicted MDRD (S/P/Bld) [Vol rate/Area] mL/min/{1.73_m2} Normal [facility] Comment on above: Order [...] actual GFR. Performed By: #### 2 4321-2, [facility], 1987-08 #### [facility] CLIA [id number] [address] [place] [address] [place] Glucose [Mass/Vol] 157 mg/dL High 74-99 [facility] Comment on above: Order Comment: Speci men Type: BLOOD SPECIMEN Result Comment: The [place] Diabetes Association (ADA) provides guidance for cutoff [...] Standards of Medical Care in Diabetes 2016, [place] [employer]. Diabetes Care. 2016.39(Suppl 1). Performed By: #### 2 4321-2, [facility], 1987-08 #### [facility] CLIA [id number] [address] Potassium [Moles/Vol] 4.0 mmol/L Normal 3.7-5.1 [facility] Comment on above: Order Comment: Speci men Type: BLOOD SPECIMEN Performed By: #### 2 4320-2, [facility], 1987-08 #### [facility] CLIA [id number] [address] Sodium [Moles/Vol] 129 mmol/L Low 136-144 [facility] Comment on above: Order Comment: Speci men Type: BLOOD SPECIMEN Performed By: #### 2 2, [facility], 1987-08 #### [facility] CLIA [id number] [address] Urea nitrogen [Mass/Vol] 9 mg/dL Normal 9-24 [facility] Comment on above: Order Comment: Speci men Type: BLOOD SPECIMEN Performed By: #### 2 4320-05, [facility], 1987-08 #### [facility] CLIA [id number] [address] CBC W Auto Differential pane l (Bld)on 02-15-2021 Basophils (Bld) [#/Vol] 10*3/uL Normal <0.11 [facility] Comment on above: Order Comment: Speci men Type: BLOOD SPECIMEN Performed By: #### 2 4320-05, [facility], 1987-08 #### [facility] CLIA [id number] [address] Basophils/100 WBC (Bld) 0.0 % Normal [facility] Comment on above: Order Comment: Speci men Type: BLOOD SPECIMEN Performed By: #### 2 4320-2, [facility], 1987-08 #### [facility] CLIA [id number] [address] Differential cell count method Nom (Bld) Auto Normal [facility] Comment on above: Order Comment: Speci men Type: BLOOD SPECIMEN Performed By: #### 2 4320-05, [facility], 1987-08 #### [facility] CLIA [id number] [address] Eosinophils (Bld) [#/Vol] 10*3/uL Normal <0.46 [facility] Comment on above: Order Comment: Speci men Type: BLOOD SPECIMEN Performed By: #### 2 4320-, [facility], 1987-08 #### [facility] CLIA [id number] [address] Eosinophils/100 WBC (Bld) 0.0 % Normal [facility] Comment on above: Order Comment: Speci men Type: BLOOD SPECIMEN Performed By: #### 2 4320-05, [facility], 1987-08 #### [facility] CLIA [id number] [address] Erythrocyte distribution width (RBC) [Ratio] 11.9 % Normal 11.5-15.0 [facility] Comment on above: Order Comment: Speci men Type: BLOOD SPECIMEN Performed By: #### 2 4320-05, [facility], 1987-08 #### [facility] CLIA [id number] [address] Hematocrit (Bld) [Volume fraction] 43.5 % Normal 39.0-51.0 [facility] Comment on above: Order Comment: Speci men Type: BLOOD SPECIMEN Performed By: #### 2 4320-05, [facility], 1987-08 #### [facility] CLIA [id number] [address] Hemoglobin (Bld) [Mass/Vol] 15.0 g/dL Normal 13.0-17.0 [facility] Comment on above: Order Comment: Speci men Type: BLOOD SPECIMEN Performed By: #### 2 4320-05, [facility], 1987-08 #### [facility] CLIA [id number] [address] IMMATURE GRAN % 0.4 % Normal [facility] Comment on above: Order Comment: Speci men Type: BLOOD SPECIMEN Performed By: #### 2 4320-05, [facility], 1987-08 #### [facility] CLIA [id number] [address] IMMATURE GRAN ABS <0.03 Normal <0.10 [facility] Comment on above: Order Comment: Speci men Type: BLOOD SPECIMEN Performed By: #### 2 4320-05, [facility], 1987-08 #### [facility] CLIA [id number] [address] Lymphocytes (Bld) [#/Vol] 0.32 10*3/uL Low 1.00-4.00 [facility] Comment on above: Order Comment: Speci men Type: BLOOD SPECIMEN Performed By: #### 2 4320-05, [facility], 1987-08 #### [facility] CLIA [id number] [address] Lymphocytes/100 WBC (Bld) 11.2 % Normal [facility] Comment on above: Order Comment: Speci men Type: BLOOD SPECIMEN Performed By: #### 2 4320-05, [facility], 1987-08 #### [facility] CLIA [id number] [address] MCH (RBC) [Entitic mass] 30.1 pg Normal 26.0-34.0 [facility] Comment on above: Order Comment: Speci men Type: BLOOD SPECIMEN Performed By: #### 2 4320-05, [facility], 1987-08 #### [facility] CLIA [id number] [address] MCHC (RBC) [Mass/Vol] 34.5 g/dL Normal 30.5-36.0 [facility] Comment on above: Order Comment: Speci men Type: BLOOD SPECIMEN Performed By: #### 2 4320-05, [facility], 1987-08 #### [facility] CLIA [id number] [address] MCV (RBC) [Entitic vol] 87.3 fL Normal 80.0-100.0 [facility] Comment on above: Order Comment: Speci men Type: BLOOD SPECIMEN Performed By: #### 2 4320-2, [facility], 1987-08 #### [facility] CLIA [id number] [address] Monocytes (Bld) [#/Vol] 0.12 10*3/uL Normal <0.87 [facility] Comment on above: Order Comment: Speci men Type: BLOOD SPECIMEN Performed By: #### 2 4320-2, [facility], 1987-08 #### [facility] CLIA [id number] [address] Monocytes/100 WBC (Bld) 4.2 % Normal [facility] Comment on above: Order Comment: Speci men Type: BLOOD SPECIMEN Performed By: #### 2 4320-05, [facility], 1987-08 #### [facility] CLIA [id number] [address] Neutrophils (Bld) [#/Vol] 2.40 10*3/uL Normal 1.45-7.50 [facility] Comment on above: Order Comment: Speci men Type: BLOOD SPECIMEN Performed By: #### 2 4320-05, [facility], 1987-08 #### [facility] CLIA [id number] [address] Neutrophils/100 WBC (Bld) 84.2 % Normal [facility] Comment on above: Order Comment: Speci men Type: BLOOD SPECIMEN Performed By: #### 2 4320-2, [facility], 1987-08 #### [facility] CLIA [id number] [address] Nucleated RBC (Bld) [#/Vol] 10*3/uL Normal <0.01 [facility] Comment on above: Order Comment: Speci men Type: BLOOD SPECIMEN Performed By: #### 2 4320-, [facility], 1987-08 #### [facility] CLIA [id number] [address] Nucleated RBC/100 WBC (Bld) [Ratio] 0.0 /100 WBC Normal 0.0 [facility] Comment on above: Order Comment: Speci men Type: BLOOD SPECIMEN Performed By: #### 2 4320-05, [facility], 1987-08 #### [facility] CLIA [id number] [address] Platelet mean volume (Bld) [Entitic vol] 9.2 fL Normal 9.0-12.7 [facility] Comment on above: Order Comment: Speci men Type: BLOOD SPECIMEN Performed By: #### 2 4320-05, [facility], 1987-08 #### [facility] CLIA [id number] [address] Platelets (Bld) [#/Vol] 97 10*3/uL Low 150-400 [facility] Comment on above: Order Comment: Speci men Type: BLOOD SPECIMEN Performed By: #### 2 4320-05, [facility], 1987-08 #### [facility] CLIA [id number] [address] RBC (Bld) [#/Vol] 4.98 10*6/uL Normal 4.20-6.00 [facility] Comment on above: Order Comment: Speci men Type: BLOOD SPECIMEN Performed By: #### 2 4320-05, [facility], 1987-08 #### [facility] CLIA [id number] [address] WBC (Bld) [#/Vol] 2.85 10*3/uL Low 3.70-11.00 [facility] Comment on above: Order Comment: Speci men Type: BLOOD SPECIMEN Performed By: #### 2 4320-05, [facility], 1987-08 #### [facility] CLIA [id number] [address] Basophils (Bld) [#/Vol] 10*3/uL Normal <0.11 [facility] Comment on above: Order Comment: Speci men Type: BLOOD SPECIMEN Performed By: #### 2 4320-05, [facility], 1987-08 #### [facility] CLIA [id number] [address] Basophils/100 WBC (Bld) 0.3 % Normal [facility] Comment on above: Order Comment: Speci men Type: BLOOD SPECIMEN Performed By: #### 2 4320-05, [facility], 1987-08 #### [facility] CLIA [id number] [address] Differential cell count method Nom (Bld) Auto Normal [facility] Comment on above: Order Comment: Speci men Type: BLOOD SPECIMEN Performed By: #### 2 4320-05, [facility], 1987-08 #### [facility] CLIA [id number] [address] Eosinophils (Bld) [#/Vol] 10*3/uL Normal <0.46 [facility] Comment on above: Order Comment: Speci men Type: BLOOD SPECIMEN Performed By: #### 2 4320-05, [facility], 1987-08 #### [facility] CLIA [id number] [address] Eosinophils/100 WBC (Bld) 0.0 % Normal [facility] Comment on above: Order Comment: Speci men Type: BLOOD SPECIMEN Performed By: #### 2 4320-05, [facility], 1987-08 #### [facility] CLIA [id number] [address] Erythrocyte distribution width (RBC) [Ratio] 12.1 % Normal 11.5-15.0 [facility] Comment on above: Order Comment: Speci men Type: BLOOD SPECIMEN Performed By: #### 2 4320-05, [facility], 1987-08 #### [facility] CLIA [id number] [address] Hematocrit (Bld) [Volume fraction] 42.0 % Normal 39.0-51.0 [facility] Comment on above: Order Comment: Speci men Type: BLOOD SPECIMEN Performed By: #### 2 4320-05, [facility], 1987-08 #### [facility] CLIA [id number] [address] Hemoglobin (Bld) [Mass/Vol] 14.3 g/dL Normal 13.0-17.0 [facility] Comment on above: Order Comment: Speci men Type: BLOOD SPECIMEN Performed By: #### 2 4320-05, [facility], 1987-08 #### [facility] CLIA [id number] [address] IMMATURE GRAN % 0.7 % Normal [facility] Comment on above: Order Comment: Speci men Type: BLOOD SPECIMEN Performed By: #### 2 4320-05, [facility], 1987-08 #### [facility] CLIA [id number] [address] IMMATURE GRAN ABS <0.03 Normal <0.10 [facility] Comment on above: Order Comment: Speci men Type: BLOOD SPECIMEN Performed By: #### 2 4320-05, [facility], 1987-08 #### [facility] CLIA [id number] [address] Lymphocytes (Bld) [#/Vol] 0.18 10*3/uL Low 1.00-4.00 [facility] Comment on above: Order Comment: Speci men Type: BLOOD SPECIMEN Performed By: #### 2 4320-05, [facility], 1987-08 #### [facility] CLIA [id number] [address] Lymphocytes/100 WBC (Bld) 5.9 % Normal [facility] Comment on above: Order Comment: Speci men Type: BLOOD SPECIMEN Performed By: #### 2 4320-05, [facility], 1987-08 #### [facility] CLIA [id number] [address] MCH (RBC) [Entitic mass] 29.9 pg Normal 26.0-34.0 [facility] Comment on above: Order Comment: Speci men Type: BLOOD SPECIMEN Performed By: #### 2 4320-05, [facility], 1987-08 #### [facility] CLIA [id number] [address] MCHC (RBC) [Mass/Vol] 34.0 g/dL Normal 30.5-36.0 [facility] Comment on above: Order Comment: Speci men Type: BLOOD SPECIMEN Performed By: #### 2 4320-05, [facility], 1987-08 #### [facility] CLIA [id number] [address] MCV (RBC) [Entitic vol] 87.7 fL Normal 80.0-100.0 [facility] Comment on above: Order Comment: Speci men Type: BLOOD SPECIMEN Performed By: #### 2 4320-05, [facility], 1987-08 #### [facility] CLIA [id number] [address] Monocytes (Bld) [#/Vol] 0.25 10*3/uL Normal <0.87 [facility] Comment on above: Order Comment: Speci men Type: BLOOD SPECIMEN Performed By: #### 2 4320-05, [facility], 1987-08 #### [facility] CLIA [id number] [address] Monocytes/100 WBC (Bld) 8.2 % Normal [facility] Comment on above: Order Comment: Speci men Type: BLOOD SPECIMEN Performed By: #### 2 4320-05, [facility], 1987-08 #### [facility] CLIA [id number] [address] Neutrophils (Bld) [#/Vol] 2.59 10*3/uL Normal 1.45-7.50 [facility] Comment on above: Order Comment: Speci men Type: BLOOD SPECIMEN Performed By: #### 2 4320-05, [facility], 1987-08 #### [facility] CLIA [id number] [address] Neutrophils/100 WBC (Bld) 84.9 % Normal [facility] Comment on above: Order Comment: Speci men Type: BLOOD SPECIMEN Performed By: #### 2 4320-, [facility], 1987-08 #### [facility] CLIA [id number] [address] Nucleated RBC (Bld) [#/Vol] 10*3/uL Normal <0.01 [facility] Comment on above: Order Comment: Speci men Type: BLOOD SPECIMEN Performed By: #### 2 4320-2, [facility], 1987-08 #### [facility] CLIA [id number] [address] Nucleated RBC/100 WBC (Bld) [Ratio] 0.0 /100 WBC Normal 0.0 [facility] Comment on above: Order Comment: Speci men Type: BLOOD SPECIMEN Performed By: #### 2 4320-05, [facility], 1987-08 #### [facility] CLIA [id number] [address] Platelet mean volume (Bld) [Entitic vol] 9.3 fL Normal 9.0-12.7 [facility] Comment on above: Order Comment: Speci men Type: BLOOD SPECIMEN Performed By: #### 2 4320-05, [facility], 1987-08 #### [facility] CLIA [id number] [address] Platelets (Bld) [#/Vol] 84 10*3/uL Low 150-400 A [facility] Comment on above: Order Comment: Speci men Type: BLOOD SPECIMEN Result Comment: Plat elet count confirmed by manual review of peripheral blood smear Performed By: #### 2 4320-2, [facility], 1987-08 #### [facility] CLIA [id number] [address] RBC (Bld) [#/Vol] 4.79 10*6/uL Normal 4.20-6.00 [facility] Comment on above: Order Comment: Speci men Type: BLOOD SPECIMEN Performed By: #### 2 4320-, [facility], 1987-08 #### [facility] CLIA [id number] [address] WBC (Bld) [#/Vol] 3.05 10*3/uL Low 3.70-11.00 [facility] Comment on above: Order Comment: Speci men Type: BLOOD SPECIMEN Performed By: #### 2 4320-2, [facility], 1987-08 #### [facility] CLIA [id number] [address] CRP SerPl-mCncon 02-15-2021 CRP [Mass/Vol] 0.5 mg/dL Normal <0.9 [facility] Comment on above: Order Comment: Speci men Type: BLOOD SPECIMEN Performed By: #### 2 4320-2, [facility], 1987-08 #### [facility] CLIA [id number] [address] Comprehensive metabolic 2000 panelon 02-15-2021 Albumin [Mass/Vol] 3.9 g/dL Normal 3.9-4.9 [facility] Comment on above: Order Comment: Speci men Type: BLOOD SPECIMEN Performed By: #### 2 4320-2, [facility], 1987-08 #### [facility] CLIA [id number] [address] ALP [Catalytic activity/Vol] 95 U/L Normal 38-113 [facility] Comment on above: Order Comment: Speci men Type: BLOOD SPECIMEN Performed By: #### 2 4320-2, [facility], 1987-08 #### [facility] CLIA [id number] [address] ALT With P-5'-P [Catalytic activity/Vol] 61 U/L High 10-54 [facility] Comment on above: Order Comment: Speci men Type: BLOOD SPECIMEN Performed By: #### 2 4320-2, [facility], 1987-08 #### [facility] CLIA [id number] [address] Anion gap [Moles/Vol] 13 mmol/L Normal 9-18 [facility] Comment on above: Order Comment: Speci men Type: BLOOD SPECIMEN Performed By: #### 2 4320-2, [facility], 1987-08 #### [facility] CLIA [id number] [address] AST With P-5'-P [Catalytic activity/Vol] 70 U/L High 14-40 [facility] Comment on above: Order Comment: Speci men Type: BLOOD SPECIMEN Performed By: #### 2 4320-2, [facility], 1987-08 #### [facility] CLIA [id number] [address] Bilirubin [Mass/Vol] 2.3 mg/dL High 0.2-1.3 [facility] Comment on above: Order Comment: Speci men Type: BLOOD SPECIMEN Performed By: #### 2 4320-2, [facility], 1987-08 #### [facility] CLIA [id number] [address] STATES [facility] Calcium [Mass/Vol] 8.4 mg/dL Low 8.5-10.2 [facility] Comment on above: Order Comment: Speci men Type: BLOOD SPECIMEN Performed By: #### 2 4320-05, [facility], 1987-08 #### [facility] CLIA [id number] [address] OF [facility] Chloride [Moles/Vol] 97 mmol/L Normal 97-105 [facility] Comment on above: Order Comment: Speci men Type: BLOOD SPECIMEN Performed By: #### 2 4320-2, [facility], 1987-08 #### [facility] CLIA [id number] [address] STATES OF [facility] CO2 [Moles/Vol] 21 mmol/L Low 22-30 [facility] Comment on above: Order Comment: Speci men Type: BLOOD SPECIMEN Performed By: #### 2 4320-2, [facility], 1987-08 #### [facility] CLIA [id number] [address] [place] Creatinine [Mass/Vol] 0.98 mg/dL Normal 0.73-1.22 [facility] Comment on above: Order Comment: Speci men Type: BLOOD SPECIMEN Performed By: #### 2 4321-2, [facility], 1987-08 #### [facility] CLIA [id number] [address] OF [place] GFR/1.73 sq M.predicted MDRD (S/P/Bld) [Vol rate/Area] mL/min/{1.73_m2} Normal [facility] Comment on above: Order [...] actual GFR. Performed By: #### 2 4321-2, [facility], 1987-08 #### [facility] CLIA [id number] [address] [place] Glucose [Mass/Vol] 128 mg/dL High 74-99 [facility] Comment on above: Order Comment: [facility] Type: BLOOD SPECIMEN Result Comment: The [place] [employer] (ADA) provides guidance for cutoff [...] Standards of Medical Care in Diabetes 2016, [place] [employer]. Diabetes Care. 2016.39(Suppl 1). Performed By: #### 2 4320-2, [facility], 1987-08 #### [facility] CLIA [id number] [address] Potassium [Moles/Vol] 3.9 mmol/L Normal 3.7-5.1 [facility] Comment on above: Order Comment: Speci men Type: BLOOD SPECIMEN Performed By: #### 2 4320-2, [facility], 1987-08 #### [facility] CLIA [id number] [address] Protein [Mass/Vol] 6.2 g/dL Low 6.3-8.0 [facility] Comment on above: Order Comment: Speci men Type: BLOOD SPECIMEN Performed By: #### 2 4320-2, [facility], 1987-08 #### [facility] CLIA [id number] [address] Sodium [Moles/Vol] 131 mmol/L Low 136-144 [facility] Comment on above: Order Comment: Speci men Type: BLOOD SPECIMEN Performed By: #### 2 4320-2, [facility], 1987-08 #### [facility] CLIA [id number] [address] Urea nitrogen [Mass/Vol] 9 mg/dL Normal 9-24 [facility] Comment on above: Order Comment: Speci men Type: BLOOD SPECIMEN Performed By: #### 2 4320-2, [facility], 1987-08 #### [facility] CLIA [id number] [address] D dimer FEU PPP-mCncon 02-15 Fibrin D-dimer FEU (PPP) [Mass/Vol] 590 ng/mL FEU High <500 [facility] Comment on above: Order Comment: Speci men Type: BLOOD SPECIMEN Performed By: #### 4 8065-7 #### [facility] CLIA [id number] [address] ED NOTEon 02-15-2021 ED NOTE HNO ID: [id number] Author: Lalitha Santos RN Service: ? Author Type: Registered Nurse Type: ED Notes Filed: 02/15/2021 7:33 AM Note Text: US tech notified that pt is ready for ordered US. [facility] ED NOTE HNO ID: [id number] Author: Lalitha Santos RN Service: ? Author Type: Registered Nurse Type: ED Notes Filed: 02/15/2021 7:07 AM Note Text: Report received from EMA [place]. Care assumed at this time. Pt remains attached to ecotherapist and continuous pulse ox [facility] ED NOTE HNO ID: [id number] Author: oJy Segal RN Service: Emergency Medicine Author Type: Registered Nurse Type: ED Notes Filed: 02/15/2021 6:06 AM Note Text: Complete linen change performed [facility] ED NOTE HNO ID: [id number] Author: Angely Hu RN Service: ? Author Type: Registered Nurse Type: ED Notes Filed: 02/14/2021 10:40 PM Note Text: Bed: 19-ED Expected date: 02/14/21 Expected time: 10:28 PM Means of arrival: Serene GUIDO Comments: serene [facility] ED PROV NOTEon 02-15-2021 ED PROV NOTE HNO ID: [id number] Author: Lucas Mcgee DO Service: Emergency Medicine [...] boluses. Plan: The patient is admitted to [place] emergency department at the time of signout ED Course as of 02/15/21710 Others' Documentation e Feb 15, 2021 0024 [place]%: 8.2 [HT] ED Course User Index [HT] Sarah Dumont MD Clinical Impressions as of 02/15/21710 COVID-19 Nausea Lucas Mcgee DO February 15, 2021 7:11 AM Lucas Mcgee DO Resident 02/15/21 0713 Loretta Daniel MD 02/15/21 0856 Normal [facility] ED PROV NOTE HNO ID: [id number] Author: Danay Gallardo MD Service: Emergency Medicine [...] disposition details Danay Gallardo MD 02/15/21 0030 [facility] ED PROV NOTE HNO ID: [id number] Author: Sarah Dumont MD Service: Emergency Medicine [...] as o (more content not included)... Normal [facility] Fibrin D-dimer FEU (PPP) [Ma ss/Vol]on 02-15-2021 D DIMER AGE-RELATED CUTOFF 710 ng/mL FEU Normal [facility] Comment on above: Order Comment: Speci men Type: BLOOD SPECIMEN Performed By: #### 4 8065-7 #### [facility] CLIA [id number] [address] [place] HEPATIC FUNCTION PNLon 02-15 Albumin [Mass/Vol] 4.0 g/dL Normal 3.9-4.9 [facility] Comment on above: Order Comment: Speci men Type: BLOOD SPECIMEN Performed By: #### 2 4320-2, [facility], 1987-08 #### [facility] CLIA [id number] [address] ALP [Catalytic activity/Vol] 94 U/L Normal 38-113 [facility] Comment on above: Order Comment: Speci men Type: BLOOD SPECIMEN Performed By: #### 2 4320-2, [facility], 1987-08 #### [facility] CLIA [id number] [address] ALT With P-5'-P [Catalytic activity/Vol] 65 U/L High 10-54 [facility] Comment on above: Order Comment: Speci men Type: BLOOD SPECIMEN Performed By: #### 2 4320-2, [facility], 1987-08 #### [facility] CLIA [id number] [address] AST With P-5'-P [Catalytic activity/Vol] 75 U/L High 14-40 [facility] Comment on above: Order Comment: Speci men Type: BLOOD SPECIMEN Performed By: #### 2 4320-05, [facility], 1987-08 #### [facility] CLIA [id number] [address] Bilirubin [Mass/Vol] 1.9 mg/dL High 0.2-1.3 [facility] Comment on above: Order Comment: Speci men Type: BLOOD SPECIMEN Performed By: #### 2 4320-2, [facility], 1987-08 #### [facility] CLIA [id number] [address] Bilirubin.conjugated [Mass/Vol] 0.3 mg/dL High <0.2 [facility] Comment on above: Order Comment: Speci men Type: BLOOD SPECIMEN Performed By: #### 2 4320-2, [facility], 1987-08 #### [facility] CLIA [id number] [address] Protein [Mass/Vol] 6.8 g/dL Normal 6.3-8.0 [facility] Comment on above: Order Comment: Speci men Type: BLOOD SPECIMEN Performed By: #### 2 432-2, [facility], 1987-08 #### [facility] CLIA [id number] [address] HIGH SENSITIVITY TROPONIN To n 02-15-2021 HIGH SENSITIVITY CARLEEN 24 ng/L High <12 [facility] Comment on above: Order Comment: Speci [...] day MACE. Performed By: #### 2 432-2, [facility], 1987-08 #### [facility] CLIA [id number] [address] HIGH SENSITIVITY CARLEEN 25 ng/L High <12 [facility] Comment on above: Order Comment: Speci [...] day MACE. Performed By: #### 2 432-2, [facility], 1987-08 #### [facility] CLIA [id number] [address] HISTORY PHYSICALon HISTORY PHYSICAL HNO ID: [id number] Author: Dana Westfall DO Service: Hospital Medicine Author Type: Physician Type: HANDP Filed: 02/15/2021 2:53 PM Note Text: DEPARTMENT OF HOSPITAL MEDICINE HISTORY AND PHYSICAL EXAM SERVICE DATE: 02/15/2021 SERVICE TIME: 2:25 PM Primary Care Physician: Danie Sawyer MD NIGHT AND WEEKEND COVERAGE: AK[place]ERRELL COVERAGE: From 7am - 7pm, please call [phone] After 7pm, please call cross cover pager #[phone] Subjective CHIEF COMPLAINT: Nausea and vomiting HPI: [...] 02/15/21 14 (more content not included)... Normal [facility] Lactate (Bld) [Moles/Vol]on 02-15-2021 Lactate [Moles/Vol] 2.2 mmol/L Normal 0.5-2.2 [facility] Comment on above: Order Comment: Speci men Type: BLOOD SPECIMEN Performed By: #### 3 2693-4 #### [facility] CLIA [id number] [address] STATES OF [facility] PROCALCITONIN (LAB)on 2020 Procalcitonin [Mass/Vol] 0.11 ng/mL High <0.09 [facility] Comment on above: Order Comment: Speci men Type: BLOOD SPECIMEN Result Comment: For a guided interpretation of test results, please visit the Change in Procalcitonin Calculator, [email or web address]. Performed By: #### P ROCAL #### [facility] CLIA [id number] [address] [place] PT panel Coag (PPP)on 2020 INR Coag (PPP) [Relative time] 1.0 {INR} Normal 0.9-1.3 [facility] Comment on above: Order Comment: Speci men Type: BLOOD SPECIMEN Result Comment: Luciana min K Antagonist (VKA) Therapeutic Range: INR 2 to 3 (Target INR of 2.5) Note: For patients treated with VKA drugs, such as warfarin, the [employer] 2012 Guideline recommends [...] 70: 252-289 Performed By: #### 2 432-2, [facility], 1987-08 #### [facility] LABORATORY CLIA [id number] [address] [facility] PT Coag (PPP) [Time] 11.4 s Normal 9.7-13.0 [facility] Comment on above: Order Comment: Speci men Type: BLOOD SPECIMEN Performed By: #### 2 432-2, [facility], 1987-08 #### [facility] CLIA [id number] [address] US ABD RIGHT UPPER QUADRANTo n [...] ductal dilation. 2. Suggestion of hepatic steatosis. K 12 [employer] Professional: [employer] Transcribe Date/Time: Feb 15 2021 1:04P Dictated by : TAMIKO VACA MD This examination was interpreted and the report reviewed and electronically signed by: TAMIKO VACA MD on Feb 15 2021 1:07PM EST [id number] Normal [facility] Urinalysis complete panel (U )on 02-15-2021 Bacteria LM.HPF (Urine sed) [#/Area] None Seen Normal None Seen [facility] Comment on above: Order Comment: Speci men Type: BLOOD SPECIMEN Performed By: #### 2 4320-05, [facility], 1987-08 #### [facility] CLIA [id number] [address] Bilirubin Ql (U) Negative Normal Negative [facility] Comment on above: Order Comment: Speci men Type: BLOOD SPECIMEN Performed By: #### 2 4320-05, [facility], 1987-08 #### [facility] CLIA [id number] [address] Clarity (Unsp spec) Clear Normal Clear [facility] Comment on above: Order Comment: Speci men Type: BLOOD SPECIMEN Performed By: #### 2 4320-05, [facility], 1987-08 #### [facility] CLIA [id number] [address] Color (U) Yellow Normal Yellow [facility] Comment on above: Order Comment: Speci men Type: BLOOD SPECIMEN Performed By: #### 2 4320-05, [facility], 1987-08 #### [facility] CLIA [id number] [address] Epithelial cells LM.HPF (Urine sed) [#/Area] 0.3 /[HPF] Normal [facility] Comment on above: Order Comment: Speci men Type: BLOOD SPECIMEN Performed By: #### 2 4320-05, [facility], 1987-08 #### [facility] CLIA [id number] [address] Glucose Test strip (U) [Mass/Vol] Negative Normal Negative [facility] Comment on above: Order Comment: Speci men Type: BLOOD SPECIMEN Performed By: #### 2 4320-05, [facility], 1987-08 #### [facility] CLIA [id number] [address] Hemoglobin Ql (U) Negative Normal Negative [facility] Comment on above: Order Comment: Speci men Type: BLOOD SPECIMEN Performed By: #### 2 4320-05, [facility], 1987-08 #### [facility] CLIA [id number] [address] Hyaline casts (Urine sed) [#/Area] 0 /[LPF] Normal 0 /LPF [facility] Comment on above: Order Comment: Speci men Type: BLOOD SPECIMEN Performed By: #### 2 4320-, [facility], 1987-08 #### [facility] CLIA [id number] [address] Ketones Ql (U) 15 mg/dL Abnormal Negative [facility] Comment on above: Order Comment: Speci men Type: BLOOD SPECIMEN Performed By: #### 2 4320-05, [facility], 1987-08 #### [facility] CLIA [id number] [address] Leukocyte esterase Test strip Ql (U) Negative Normal Negative [facility] Comment on above: Order Comment: Speci men Type: BLOOD SPECIMEN Performed By: #### 2 4320-05, [facility], 1987-08 #### [facility] CLIA [id number] [address] Nitrite Ql (U) Negative Normal Negative [facility] Comment on above: Order Comment: Speci men Type: BLOOD SPECIMEN Performed By: #### 2 4320-05, [facility], 1987-08 #### [facility] CLIA [id number] [address] pH (U) 5.5 [pH] Normal 5.0-8.0 [facility] Comment on above: Order Comment: Speci men Type: BLOOD SPECIMEN Performed By: #### 2 4320-05, [facility], 1987-08 #### [facility] CLIA [id number] [address] Protein (U) [Mass/Vol] Negative Normal Negative [facility] Comment on above: Order Comment: Speci men Type: BLOOD SPECIMEN Performed By: #### 2 4320-05, [facility], 1987-08 #### [facility] CLIA [id number] [address] RBC LM.HPF (Urine sed) [#/Area] 6-10 /HPF Abnormal 0-3 /HPF [facility] Comment on above: Order Comment: Speci men Type: BLOOD SPECIMEN Performed By: #### 2 4320-, [facility], 1987-08 #### [facility] CLIA [id number] [address] Specific gravity (U) [Rel density] 1.023 Normal 1.005-1.03 0 [facility] Comment on above: Order Comment: Speci men Type: BLOOD SPECIMEN Performed By: #### 2 4320-05, [facility], 1987-08 #### [facility] CLIA [id number] [address] Urobilinogen Ql (U) 0.2 EU/dL Normal 0.2-1.0 EU/dL [facility] Comment on above: Order Comment: Speci men Type: BLOOD SPECIMEN Performed By: #### 2 4320-05, [facility], 1987-08 #### [facility] CLIA [id number] [address] WBC LM.HPF (Urine sed) [#/Area] 0-5 /HPF Normal 0-5 /HPF [facility] Comment on above: Order Comment: Speci men Type: BLOOD SPECIMEN Performed By: #### 2 4320-05, [facility], 1987-08 #### [facility] CLIA [id number] [address] XR CHEST 2V FRONTAL/LATon XR [...] pneumonia or any other acute cardiopulmonary abnormality. K 12 School Professional: MADDIE Transcribe Date/Time: Feb 15 2021 12:36A Dictated by : JAIR GARIBAY MD This examination was interpreted and the report reviewed and electronically signed by: JAIR GARIBAY MD on Feb 15 2021 12:37AM EST [id number] Normal [facility] aPTT PPPon 02-15-2021 aPTT Coag (PPP) [Time] 27.9 s Normal 23.0-32.4 [facility] Comment on above: Order Comment: Speci men Type: BLOOD SPECIMEN Performed By: #### 2 4321-2, [facility], 1987- #### [facility] CLIA [id number] [address] [facility] Basic Metabolic Panelon 11-0 Calcium [Mass/Vol] 8.5 mg/dL Normal 8.4-10.[address] [facility] Comment on above: Performed By: #### B GLU #### [facility] [address] [place] [address] Glucose [Mass/Vol] 103 mg/dL High 70-[address] [facility] Comment on above: Performed By: #### B GLU #### [facility] [address] [place] [address] Urea nitrogen [Mass/Vol] 12 mg/dL Normal 7-[address] [facility] Comment on above: Performed By: #### B GLU #### [facility] [address] [place] [address] Anion gap [Moles/Vol] 5 mmol/L Normal 3-13 [facility] Comment on above: Performed By: #### B GLU #### [facility] [address] [place] [address] CO2 [Moles/Vol] 23 mmol/L Normal 22-[address] [facility] Comment on above: Performed By: #### B GLU #### [facility] [address] [place] [address] Creatinine [Mass/Vol] 0.90 mg/dL Normal 0.52-1.25 [facility] Comment on above: Performed By: #### B GLU #### [facility] [address] [place] [address] GFR/1.73 sq M.predicted among blacks MDRD (S/P/Bld) [Vol rate/Area] mL/min/{1.73_m2} Normal >[address] [facility] Comment on above: Performed By: #### B GLU #### [facility] [address] [place] [address] GFR/1.73 sq M.predicted among non-blacks MDRD (S/P/Bld) [Vol rate/Area] 85.4 mL/min/{1.73_m2} Normal >[address] [facility] Comment on above: Result Comment: KDIG [...] secretion. Performed By: #### B GLU #### [facility] [address] [place] [address] Chloride [Moles/Vol] 106 mmol/L Normal 98-107 [facility] Comment on above: Performed By: #### B GLU #### [facility] [address] [place] [address] Potassium [Moles/Vol] 3.8 mmol/L Normal 3.5-5.1 [facility] Comment on above: Performed By: #### B GLU #### [facility] [address] [place] [address] Sodium [Moles/Vol] 134 mmol/L Low 135-[address] [facility] Comment on above: Performed By: #### B GLU #### [facility] [address] [place] [address] Basic Metabolic Panel w/ Ref steve to MGOrdered By: Elyse Whitney on 02-01-2021 Anion gap [Moles/Vol] 5 mmol/L 3 - 13 mmol/L [facility] Work Phone: Calcium [Mass/Vol] 8.5 mg/dL 8.4 - 10. 4 mg/dL [facility] Work Phone: Chloride [Moles/Vol] 106 mmol/L 98 - 10 7 mmol/L [facility] Work Phone: CO2 [Moles/Vol] 23 mmol/L 22 - 30 mmol/L [facility] Work Phone: Creatinine [Mass/Vol] 0.9 mg/dL 0.52 - 1.25 mg/dL [facility] Work Phone: EGFR IF NonAfrican Burkinan 85.4 mL/min >60 [facility] Work Phone: Comment on above: KDIGO guidelines [...] [facility] Work Phone: Test Performed by [facility], [address] [place] [address] [facility] Work Phone: [facility] Work Phone: CBC [...] fraction] 41.7 % 40.0 - 52.0 % [employer] Work Phone: [phone] Hemoglobin.gastrointest inal spec 1 Ql (Stl) 14.0 g/dL 13.0 - 18.0 g/dL [employer] [facility] [employer] Work Phone: [phone] Interpretation and review of laboratory results Abnormal [employer] Work Phone: [phone] Lymphocytes (Bld) [#/Vol] 1.3 10*3/uL 1.0 - 4.3 10*3/uL [employer] Work Phone: [phone] Lymphocytes/100 WBC (Bld) 24.9 % 20.0 - 40.0 % [employer] Work Phone: [phone] MCH (RBC) [Entitic mass] 29.9 pg 26.0 - 34.0 pg [employer] [facility] [employer] Work Phone: [phone] MCHC (RBC) [Mass/Vol] 33.6 % 32.0 - 36.0 % [employer] Work Phone: [phone] MCV (RBC) [Entitic vol] 89.0 fL 80.0 - 98.0 fL [employer] Work Phone: [phone] Monocytes (Bld) [#/Vol] 0.4 10*3/uL 0.0 - 0.8 10*3/uL [employer] [facility] Work Phone: [phone] Monocytes/100 WBC (Bld) 7.6 % 2.0 - 10.0 % [employer] [facility] [employer] Work Phone: [phone] Platelet distribution width (Bld) [Ratio] 12.0 % 11.5 - 14.5 % [employer] Work Phone: [phone] Platelet mean volume (Bld) [Entitic vol] 7.9 fL 7.4 - 10.4 fL [employer] Work Phone: [phone] Platelets (Bld) [#/Vol] 107 10*3/uL Low 140 - 440 10*3/uL [employer] Work Phone: [phone] RBC (Bld) [#/Vol] 4.69 10*6/uL 4.40 - 5.90 10*6/uL [facility] Work Phone: WBC (Bld) [#/Vol] 5.2 10*3/uL 3.6 - 10.7 10*3/uL [facility] Work Phone: Test Performed by [facility], [address] [place] [address] [facility] Work Phone: [facility] Work Phone: Hemogram w/ Autodiffon 02-01 Abs Baso Cnt 0.0 10*3/uL Normal 0.0-0.[address] [facility] Comment on above: Performed By: #### B GLU #### [facility] [address] [place] [address] Abs Neutrophile Cnt 3.3 10*3/uL Normal 1.8-7.0 [facility] Comment on above: Performed By: #### B GLU #### [facility] [address] [place] [address] Basophils/100 WBC (Bld) 0.6 % Normal 0.0-2.0 [facility] Comment on above: Performed By: #### B GLU #### [facility] [address] [place] [address] Eosinophils (Bld) [#/Vol] 0.1 10*3/uL Normal 0.0-0.[address] [facility] Comment on above: Performed By: #### B GLU #### [facility] [address] [place] [address] Eosinophils/100 WBC (Bld) 2.7 % Normal 1.0-6.[address] [facility] Comment on above: Performed By: #### B GLU #### [facility] [address] [place] [address] Erythrocyte distribution width (RBC) [Ratio] 12.0 % Normal 11.5-14.[address] [facility] Comment on above: Performed By: #### B GLU #### [facility] [address] [place] [address] Granulocytes/100 WBC (Bld) 64.2 % Normal 40.0-80.[address] [facility] Comment on above: Performed By: #### B GLU #### [facility] [address] [place] [address] Hematocrit (Bld) [Volume fraction] 41.7 % Normal 40.0-52.[address] [facility] Comment on above: Performed By: #### B GLU #### [facility] [address] [place] [address] Hemoglobin (Bld) [Mass/Vol] 14.0 g/dL Normal 13.0-18.[address] [facility] Comment on above: Performed By: #### B GLU #### [facility] [address] [place] [address] Lymphocytes (Bld) [#/Vol] 1.3 10*3/uL Normal 1.0-4.[address] [facility] Comment on above: Performed By: #### B GLU #### [place] [address] [place] [address] Lymphocytes/100 WBC (Bld) 24.9 % Normal 20.0-40.[address] [facility] Comment on above: Performed By: #### B GLU #### [place] [address] [place] [address] MCH (RBC) [Entitic mass] 29.9 pg Normal 26.0-34.[address] [facility] Comment on above: Performed By: #### B GLU #### [facility] [address] [place] [address] MCHC 33.6 % Normal 32.0-36.[address] [facility] Comment on above: Performed By: #### B GLU #### [facility] [address] [place] [address] MCV (RBC) [Entitic vol] 89.0 fL Normal 80.0-98.0 [facility] Comment on above: Performed By: #### B GLU #### [facility] [address] [place] [address] Monocytes (Bld) [#/Vol] 0.4 10*3/uL Normal 0.0-0.[address] [facility] Comment on above: Performed By: #### B GLU #### [place] [address] [place] [address] Monocytes/100 WBC (Bld) 7.6 % Normal 2.0-10.0 [facility] Comment on above: Performed By: #### B GLU #### [facility] [address] [place] [address] Platelet mean volume (Bld) [Entitic vol] 7.9 fL Normal 7.4-10.[address] [facility] Comment on above: Performed By: #### B GLU #### [facility] [address] [place] [address] Platelets (Bld) [#/Vol] 107 10*3/uL Low 140-[address] [facility] Comment on above: Performed By: #### B GLU #### [facility] [address] [place] [address] RBC (Bld) [#/Vol] 4.69 10*6/uL Normal 4.40-5.[address] [facility] Comment on above: Performed By: #### B GLU #### [facility] [address] [place] [address] WBC (Bld) [#/Vol] 5.2 10*3/uL Normal 3.6-10.[address] [facility] Comment on above: Performed By: #### B GLU #### [facility] [address] [place] [address] EKG 12 Lead if not already d one by squadOrdered By: Denzel Mendes on 01-31-[address] [facility] Test Date: 2021-01-30 Pat Name: SHOLA MARTINEZ Department: 01 Room: 37 Gender: M Sportspersons: KAREN : 1950 Requested By: DENZEL MENDES Order Number: [id number] Reading MD: Magno Meadows Measurements Intervals [place] Rate: 71 P: 39 GA: 184 QRS: -66 QRSD: 120 T: 47 QT: 404 QTc: 439 Interpretive Statements SINUS RHYTHM LEFT ANTERIOR FASCICULAR BLOCK BASELINE WANDER IN LEAD(S) V2 Electronically Signed On 01-31-2021 12:23:30 EDT by Magno Meadows [facility] Work Phone: Mark, [facility] Incoming Cardiology Results From Frankie/Ericany - 01/31/2021 12:24 PM EDT [facility] Test Date: 2021-01-30 Pat Name: SHOLA MARTINEZ Department: 01 Room: 37 Gender: M Sportspersons: KAREN : 1950 Requested By: DENZEL MENDES Order Number: [id number] Reading MD: Magno Meadows Measurements Intervals [place] Rate: 71 P: 39 GA: 184 QRS: -66 QRSD: 120 T: 47 QT: 404 QTc: 439 Interpretive Statements SINUS RHYTHM LEFT ANTERIOR FASCICULAR BLOCK BASELINE WANDER IN LEAD(S) V2 Electronically Signed On 01-31-2021 12:23:30 EDT by Magno Meadows [facility] Work Phone: [employer] Work Phone: Lipid Panelon 01-31-2021 Chol/HDL [address] [facility] Comment on above: Result Comment: Ref Range: < 3 Low Risk for CHD 3-6 Mod Risk for CHD > 6 High Risk for CHD Performed By: #### B GLU #### [facility] [address] [place] [address] Cholesterol in HDL [Mass/Vol] 24 mg/dL Low 40-[address] [facility] Comment on above: Performed By: #### B GLU #### [facility] [address] [place] [address] Low Density Lipoprotein 14 mg/dL Normal <100 [facility] Comment on above: Performed By: #### B GLU #### [facility] [address] [place] [address] Triglyceride [Mass/Vol] 147 mg/dL Normal <150 [facility] Comment on above: Performed By: #### B GLU #### [facility] [address] [place] [address] Cholesterol [Mass/Vol] 67 mg/dL Normal < 200 [facility] Comment on above: Performed By: #### B GLU #### [facility] [address] [place] [address] Lipid panel - fastingOrdered By: Eb Burgos on 01-31-2021 Cholesterol [Mass/Vol] 67 mg/dL <200 [employer] Work Phone: Cholesterol in HDL [Mass/Vol] 24 mg/dL Low 40 - 60 mg/dL [facility] Work Phone: Cholesterol in LDL [Mass/Vol] 14 mg/dL <100 [facility] Work Phone: Cholesterol.total/Yoselin sterol in HDL [Mass ratio] 3 {ratio} [facility] Work Phone: Comment on above: Ref Range: < 3 Low Risk for CHD 3-6 Mod Risk for CHD > 6 High Risk for CHD Interpretation and review of laboratory results Abnormal [facility] Work Phone: Triglyceride [Mass/Vol] 147 mg/dL <150 S [facility] Work Phone: Test Performed by [facility], [address] [place] [address] [place], [place] [address] [facility] Work Phone: [facility] Work Phone: MRI Brain w/o Contraston MRI Brain w/o Contrast Patient Name: SHOLA TERRY [facility] ACCESSION EXAM DATE/TIME PROCEDURE ORDERING PROVIDER [id number] 01/31/2021 13:35 EDT MRI Brain w/o Contrast 5640 EB [place] CPT code 89968 Reason For Exam (MRI Brain w/o Contrast) [...] Transcribed Date and Time: 01/31/2021 2:[address] [facility] MRI brain without contrast ( REVIEW IMAGING OBTAINED IN LAST 2 YRS to determine indication)Ordered By: Eb Burgos on 01-31-2021 [id number] Resonance Imaging ACCESSION EXAM DATE/TIME PROCEDURE ORDERING PROVIDER [id number] 01/31/2021 13:35 EDT MRI Brain w/o Contrast 5640 -EB B[place] CPT code 44479 Reason For Exam (MRI Brain w/o Contrast) [...] Time: 01/31/2021 2:49 [facility] Work Phone: Mark, [facility] Incoming Radiology Results From [employer] - 01/31/2021 2:49 PM EDT Patient Name: [id number] [facility] Imaging ACCESSION EXAM DATE/TIME PROCEDURE ORDERING PROVIDER [id number] 01/31/2021 13:35 EDT MRI Brain w/o Contrast 5640 [address] [place] CPT code 08723 Reason For Exam (MRI Brain w/o Contrast) [...] GIBBS Transcribed Date and Time: 01/31/2021 2:49 [facility] Work Phone: [facility] Work Phone: APTTon 01-30-2021 aPTT Coag (Bld) [Time] 26.3 s Normal 20.0-30.5 [facility] Comment on above: Result Comment: NOTE : The therapeutic time for Heparin anticoagulation, based on Xa activity inhibition, is an APTT of 46-80 seconds. Performed By: #### B GLU #### [facility] [address] [place] [address] APTTOrdered By: Denzel cm on 01-30-2021 aPTT Coag (Bld) [Time] 26.3 s 20.0 - 30.5 s [facility] Work Phone: [phone] Comment on above: NOTE: The therapeuti c time for Heparin anticoagulation, based on Xa activity inhibition, is an APTT of 46-80 seconds. CBC Auto DifferentialOrdered By: Denzel Mendes on 01-30-2021 Absolute Baso # 0.0 10*3/uL 0.0 - 0.2 10*3/uL [facility] Work Phone: [phone] Absolute Neut # 5.0 10*3/uL 1.8 - 7.0 10*3/uL [facility] Work Phone: [phone] Basophils/100 WBC (Bld) 0.5 % 0.0 - 2.0 % [facility] Work Phone: [phone] Eosinophils (Bld) [#/Vol] 0.1 10*3/uL 0.0 - 0.5 10*3/uL [facility] Work Phone: [phone] Eosinophils/100 WBC (Bld) 1.5 % 1.0 - 6.0 % [facility] Work Phone: [phone] Granulocytes/100 WBC (Bld) 78.6 % 40.0 - 80.0 % [facility] Work Phone: [phone] Hematocrit (Bld) [Volume fraction] 41.6 % 40.0 - 52.0 % [facility] Work Phone: [phone] Hemoglobin.gastrointest inal spec 1 Ql (Stl) 14.6 g/dL 13.0 - 18.0 g/dL [facility] Work Phone: Interpretation and review of laboratory results Abnormal [employer] Work Phone: [phone] Lymphocytes (Bld) [#/Vol] 0.9 10*3/uL Low 1.0 - 4.3 10*3/uL [facility] Work Phone: [phone] Lymphocytes/100 WBC (Bld) 14.0 % Low 20.0 - 40.0 % [facility] Work Phone: [phone] MCH (RBC) [Entitic mass] 30.4 pg [...] Work Phone: [phone] Test Performed by [facility], [address] [place] [address] [place], [place] [address] [facility] Work Phone: [phone] [employer] Work Phone: [phone] HEAD WO CONTRASTOrdered B y: Denzel Mendes on 01-30-2021 Patient Name: SHOLA URBINA ND Computed Tomography ACCESSION EXAM DATE/TIME PROCEDURE ORDERING PROVIDER [id number] 01/30/2021 18:[address] Head or Brain w/o DENZEL CLIFTON CPT code 63472 Reason For Exam (CT Head or Brain [...] Phone: Mark, [facility] Incoming Radiology Results From [facility] - 01/30/2021 7:16 PM EDT Patient Name: [id number] Computed Tomography ACCESSION EXAM DATE/TIME PROCEDURE ORDERING PROVIDER [id number] 01/30/2021 18:[address] Head or Brain w/o 5615 -ELISHA MENDESYA Contrast CPT code 58266 Reason For Exam (CT Head or Brain [...] Brain w/o Contrast Patient [facility]: [facility] [id number] Computed Tomography ACCESSION EXAM DATE/TIME PROCEDURE ORDERING PROVIDER [id number] 01/30/2021 18:[address] Head or Brain w/o Janis5 -DENZEL MENDES Contrast CPT code 08992 Reason For Exam (CT Head or Brain [...] Transcribed Date and Time: 01/30/2021 7:[address] [facility] Comp Panel with Mg Reflexon 01-30-2021 ALT [Catalytic activity/Vol] 27 U/L Normal 0-[address] [facility] Comment on above: Result Comment: The ALT test is performed by an updated assay method. Please note that the reference intervals have been changed and are now sex specific. Performed By: #### B GLU #### [facility] [address] [place] [address] Calcium [Mass/Vol] 9.1 mg/dL Normal 8.4-10.[address] [facility] Comment on above: Performed By: #### B GLU #### [facility] [address] [place] [address] Glucose [Mass/Vol] 130 mg/dL High 70-[address] [facility] Comment on above: Performed By: #### B GLU #### [facility] [address] [place] [address] ALP [Catalytic activity/Vol] 75 U/L Normal 38-[address] [facility] Comment on above: Performed By: #### B GLU #### [facility] [address] [place] [address] Anion gap [Moles/Vol] 10 mmol/L Normal 3-13 [facility] Comment on above: Performed By: #### B GLU #### [facility] [address] [place] [address] AST [Catalytic activity/Vol] 35 U/L Normal 15-[address] [facility] Comment on above: Performed By: #### B GLU #### [facility] [address] [place] [address] Bilirubin [Mass/Vol] 2.4 mg/dL High 0.2-1.3 [facility] Comment on above: Performed By: #### B GLU #### [facility] [address] [place] [address] CO2 [Moles/Vol] 23 mmol/L Normal 22-[address] [facility] Comment on above: Performed By: #### B GLU #### [facility] [address] [place] [address] Creatinine [Mass/Vol] 0.86 mg/dL Normal 0.52-1.25 [facility] [facility] Comment on above: Performed By: #### B GLU #### [facility] [address] [place] [address] GFR/1.73 sq M.predicted among blacks MDRD (S/P/Bld) [Vol rate/Area] mL/min/{1.73_m2} Normal >[address] [facility] Comment on above: Performed By: #### B GLU #### [facility] [address] [place] [address] GFR/1.73 sq M.predicted among non-blacks MDRD (S/P/Bld) [Vol rate/Area] 87.0 mL/min/{1.73_m2} Normal >[address] [facility] Comment on above: Result Comment: KDIG [...] secretion. Performed By: #### B GLU #### [facility] [address] [place] [address] Protein [Mass/Vol] 6.7 g/dL Normal 6.3-8.[address] [facility] Comment on above: Performed By: #### B GLU #### [facility] [address] [place] [address] Urea nitrogen [Mass/Vol] 12 mg/dL Normal 7-[address] [facility] Comment on above: Performed By: #### B GLU #### [facility] [address] [place] [address] Potassium [Moles/Vol] 4.1 mmol/L Normal 3.5-5.1 [facility] Comment on above: Performed By: #### B GLU #### [facility] [address] [place] [address] Sodium [Moles/Vol] 134 mmol/L Low 135-[address] [facility] Comment on above: Performed By: #### B GLU #### [facility] [address] [place] [address] Albumin [Mass/Vol] 4.1 g/dL Normal 3.5-5.[address] [facility] Comment on above: Performed By: #### B GLU #### [facility] [address] [place] [address] Chloride [Moles/Vol] 102 mmol/L Normal 98-107 [facility] Comment on above: Performed By: #### B GLU #### [facility] [address] [place] [address] Comprehensive Metabolic Pane l w/ Reflex to MGOrdered By: Denzel Mendes on 01-30-2021 Albumin [Mass/Vol] 4.1 g/dL 3.5 - 5.0 g/dL [facility] Work Phone: ALP (Bld) [Catalytic activity/Vol] 75 U/L 38 - 126 U/L [facility] Work Phone: ALT [Catalytic activity/Vol] 27 U/L 0 - 49 U/L [facility] Work Phone: Comment on above: The ALT test is perf ormed by an updated assay method. Please note that the reference intervals have been changed and are now sex specific. Anion gap [Moles/Vol] 10 mmol/L 3 - 13 mmol/L [facility] Work Phone: AST [Catalytic activity/Vol] 35 U/L 15 - 46 U/L [facility] Work Phone: Bilirubin [Mass/Vol] 2.4 mg/dL High 0.2 - 1 .3 mg/dL [facility] Work Phone: [phone] Calcium [Mass/Vol] 9.1 mg/dL 8.4 - 10. 4 mg/dL [facility] Work Phone: [phone] Chloride [Moles/Vol] 102 mmol/L 98 - 10 7 mmol/L [facility] Work Phone: [phone] CO2 [Moles/Vol] 23 mmol/L 22 - 30 mmol/L [facility] Work Phone: [phone] Creatinine [Mass/Vol] 0.86 mg/dL 0.52 - 1.25 mg/dL [facility] Work Phone: [phone] EGFR IF NonAfrican [place]kin[place] 87.0 mL/min >60 [facility] Work Phone: [phone] Comment on above: KDIGO guidelines pro [...] fraction] 6.7 g/dL 6.3 - 8.2 g/dL [facility] Work Phone: GFR/1.73 sq M.predicted among blacks [...] [facility] Work Phone: Test Performed by [facility], [address] [place], [place], [place] [address] [facility] Work Phone: [facility] Work Phone: ED Provider Noteon ED Provider Note Emergency Department Encounter [facility] ED Patient: Shola Martinez : 1950 [...] are mis-transcribed.) Jesse Pack MD Acute Care [facility] Jesse Pack MD 01/31/21 0743 [facility] ED Provider Note [facility] ED eMERGENCY dEPARTMENT eNCOUnter Pt Name: Shola [...] ? Cataract ? Chronic obstructive pulmonary disease ([facility]) 08/20/2018 ? CKD (chronic kidney disease) stage 2, GFR 60-89 ml/min 09/12/2019 ? Community acquired pneumonia 04/2016 ? Diabetic neuropathy ([facility]) ? Dizziness after head injury 05/2013 ? Hx of blood clots ? Hyperlipidemia ? Hypertension ? Morbid obesity ([facility]) 05/21/2018 ? Recurrent UTI 02/03/2018 ? Sepsis due to gram-negative UTI ([facility]) 12/11/2017 ? Sleep apnea ? [...] BY M (more content not included)... Normal [facility] Hemogram w/ Autodiffon 01-30 Abs Baso Cnt 0.0 10*3/uL Normal 0.0-0.[address] [facility] Comment on above: Performed By: #### B GLU #### [facility] [address] [place] [address] Abs Neutrophile Cnt 5.0 10*3/uL Normal 1.8-7.0 [facility] Comment on above: Performed By: #### B GLU #### [facility] [address] [place] [address] Basophils/100 WBC (Bld) 0.5 % Normal 0.0-2.0 [facility] Comment on above: Performed By: #### B GLU #### [facility] [address] [place] [address] Eosinophils (Bld) [#/Vol] 0.1 10*3/uL Normal 0.0-0.[address] [facility] Comment on above: Performed By: #### B GLU #### [facility] [address] [place] [address] Eosinophils/100 WBC (Bld) 1.5 % Normal 1.0-6.[address] [facility] Comment on above: Performed By: #### B GLU #### [facility] [address] [place] [address] Erythrocyte distribution width (RBC) [Ratio] 12.7 % Normal 11.5-14.[address] [facility] Comment on above: Performed By: #### B GLU #### [facility] [address] [place] [address] Granulocytes/100 WBC (Bld) 78.6 % Normal 40.0-80.[address] [facility] Comment on above: Performed By: #### B GLU #### [facility] [address] [place] [address] Hematocrit (Bld) [Volume fraction] 41.6 % Normal 40.0-52.[address] [facility] Comment on above: Performed By: #### B GLU #### [facility] [address] [place] [address] Hemoglobin (Bld) [Mass/Vol] 14.6 g/dL Normal 13.0-18.[address] [facility] Comment on above: Performed By: #### B GLU #### [facility] [address] [place] [address] Lymphocytes (Bld) [#/Vol] 0.9 10*3/uL Low 1.0-4.[address] [facility] Comment on above: Performed By: #### B GLU #### [facility] [address] [place] [address] Lymphocytes/100 WBC (Bld) 14.0 % Low 20.0-40.[address] [facility] Comment on above: Performed By: #### B GLU #### [facility] [address] [place] [address] MCH (RBC) [Entitic mass] 30.4 pg Normal 26.0-34.[address] [facility] Comment on above: Performed By: #### B GLU #### [facility] [address] [place] [address] MCHC 35.1 % Normal 32.0-36.[address] [facility] Comment on above: Performed By: #### B GLU #### [facility] [address] [place] [address] MCV (RBC) [Entitic vol] 86.4 fL Normal 80.0-98.0 [facility] Comment on above: Performed By: #### B GLU #### [facility] [address] [place] [address] Monocytes (Bld) [#/Vol] 0.3 10*3/uL Normal 0.0-0.[address] [facility] Comment on above: Performed By: #### B GLU #### [facility] [address] [place] [address] Monocytes/100 WBC (Bld) 5.4 % Normal 2.0-10.0 [facility] Comment on above: Performed By: #### B GLU #### [facility] [address] [place] [address] Platelet mean volume (Bld) [Entitic vol] 7.5 fL Normal 7.4-10.[address] [facility] Comment on above: Performed By: #### B GLU #### [facility] [address] [place] [address] Platelets (Bld) [#/Vol] 114 10*3/uL Low 140-[address] [facility] Comment on above: Performed By: #### B GLU #### [facility] [address] [place] [address] RBC (Bld) [#/Vol] 4.82 10*6/uL Normal 4.40-5.[address] [facility] Comment on above: Performed By: #### B GLU #### [facility] [address] [place] [address] WBC (Bld) [#/Vol] 6.3 10*3/uL Normal 3.6-10.[address] [facility] Comment on above: Performed By: #### B GLU #### [facility] [address] [place] [address] No Panel InformationOrdered By: Denzel Mendes on 01-30-2021 Test Performed by [facility], [address] [place], [place] [address] [facility] Work Phone: [facility] Work Phone: Prothrombin Timeon INR 1.1 Normal 0.9-1.[address] [facility] Comment on above: Result Comment: Jacob [...] Infarction Performed By: #### B GLU #### [facility] [address] [place] [address] PT Coag (PPP) [Time] 11.5 s Normal 9.0-12.0 [facility] Comment on above: Result Comment: . Performed By: #### B GLU #### [facility] [address] [place] [address] Protime-INROrdered By: Denzel Mendes on 01-30-2021 INR Coag (Bld) [Relative time] 1.1 {INR} [facility] Work Phone: Comment on above: Recommended Anticoag [...] 11.5 s 9.0 - 1 2.0 s [facility] Work Phone: Comment on above: . TroponinOrdered By: Deznel Mario on 01-30-2021 Troponin I.cardiac [Mass/Vol] ng/mL 0.000 - 0.034 ng/mL [facility] Work Phone: Comment on above: . Test Performed by [facility], [address] [place] [address] [facility] Work Phone: [facility] Work Phone: Troponin Ion 01-30-2021 Troponin I.cardiac [Mass/Vol] ng/mL Normal 0.000-0.[address] [facility] Comment on above: Result Comment: . Performed By: #### B GLU #### [facility] [address] [place] [address] Glucose,Bedsideon 10-07-2020 Glucose [Mass/Vol] 139 mg/dL High 70-[address] [facility] Comment on above: Result Comment: Test performed by glucose meter. Results may be 10%-15% lower than serum/plasma values. (CLIA ID [id number]) Performed By: #### B GLU #### [facility] [address] [place] [address] Glucose [Mass/Vol] 119 mg/dL High 70-[address] [facility] Comment on above: Result Comment: Test performed by glucose meter. Results may be 10%-15% lower than serum/plasma values. (CLIA ID [id number]) Performed By: #### A DDON #### [facility] [address] [place] [address] Glucose,Bedsideon 10-06-2020 Glucose [Mass/Vol] 147 mg/dL High 70-[address] [facility] Comment on above: Result Comment: Test performed by glucose meter. Results may be 10%-15% lower than serum/plasma values. (CLIA ID [id number]) Performed By: #### B GLU #### [facility] [address] [place] [address] Glucose [Mass/Vol] 147 mg/dL High 70-[address] [facility] Comment on above: Result Comment: Test performed by glucose meter. Results may be 10%-15% lower than serum/plasma values. (CLIA ID [id number]) Performed By: #### B GLU #### [facility] [address] [place] [address] Glucose [Mass/Vol] 126 mg/dL High [address] [facility] Comment on above: Result Comment: Test performed by glucose meter. Results may be 10%-15% lower than serum/plasma values. (CLIA ID [id number]) Performed By: #### A DDON #### [facility] [address] [place] [address] Glucose [Mass/Vol] 237 mg/dL High 70-[address] [facility] Comment on above: Result Comment: Test performed by glucose meter. Results may be 10%-15% lower than serum/plasma values. (CLIA ID [id number]) Performed By: #### B GLU #### [facility] [address] [place] [address] Glucose [Mass/Vol] 116 mg/dL High [address] [facility] Comment on above: Result Comment: Test performed by glucose meter. Results may be 10%-15% lower than serum/plasma values. (CLIA ID [id number]) Performed By: #### B GLU #### [place] [address] [place] [address] Glucose,Bedsideon 10-05-2020 Glucose [Mass/Vol] 185 mg/dL [address] Comment on above: Result Comment: Test performed by glucose meter. Results may be 10%-15% lower than serum/plasma values. (CLIA ID [id number]) Performed By: #### B GLU #### [facility] [address] [place] [address] Glucose [Mass/Vol] 122 mg/dL High [address] [facility] Comment on above: Result Comment: Test performed by glucose meter. Results may be 10%-15% lower than serum/plasma values. (CLIA ID [id number]) Performed By: #### B GLU #### [facility] [address] [place] [address] Glucose [Mass/Vol] 191 mg/dL High 70-[address] [facility] Comment on above: Result Comment: Test performed by glucose meter. Results may be 10%-15% lower than serum/plasma values. (CLIA ID [id number]) Performed By: #### B GLU #### [facility] [address] [place] [address] Glucose [Mass/Vol] 117 mg/dL High 70-[address] [facility] Comment on above: Result Comment: Test performed by glucose meter. Results may be 10%-15% lower than serum/plasma values. (CLIA ID [id number]) Performed By: #### B GLU #### [facility] [address] [place] [address] Basic Metabolic Panelon 07-0 -2020 Calcium [Mass/Vol] 8.9 mg/dL Normal 8.4-10.[address] [facility] Comment on above: Performed By: #### B GLU #### [facility] [address] [place] [address] Anion gap [Moles/Vol] 5 mmol/L Normal 3-13 [facility] Comment on above: Performed By: #### B GLU #### [facility] [address] [place] [address] CO2 [Moles/Vol] 28 mmol/L Normal 22-[address] [facility] Comment on above: Performed By: #### B GLU #### [facility] [address] [place] [address] Creatinine [Mass/Vol] 0.84 mg/dL Normal 0.52-1.25 [facility] Comment on above: Performed By: #### B GLU #### [facility] [address] [place] [address] GFR/1.73 sq M.predicted among blacks MDRD (S/P/Bld) [Vol rate/Area] mL/min/{1.73_m2} Normal >[address] [facility] Comment on above: Performed By: #### B GLU #### [facility] [address] [place] [address] GFR/1.73 sq M.predicted among non-blacks MDRD (S/P/Bld) [Vol rate/Area] 88.0 mL/min/{1.73_m2} Normal >[address] [facility] Comment on above: Result Comment: KDIG [...] secretion. Performed By: #### B GLU #### [facility] [address] [place] [address] Glucose [Mass/Vol] 121 mg/dL High 70-[address] [facility] Comment on above: Performed By: #### B GLU #### [facility] [address] [place] [address] Urea nitrogen [Mass/Vol] 13 mg/dL Normal 7-[address] [facility] Comment on above: Performed By: #### B GLU #### [facility] [address] [place] [address] Chloride [Moles/Vol] 101 mmol/L Normal 98-107 [facility] Comment on above: Performed By: #### B GLU #### [facility] [address] [place] [address] Potassium [Moles/Vol] 4.3 mmol/L Normal 3.5-5.1 [facility] Comment on above: Performed By: #### B GLU #### [facility] [address] [place] [address] Sodium [Moles/Vol] 133 mmol/L Low 135-[address] [facility] Comment on above: Performed By: #### B GLU #### [facility] [address] [place] [address] Glucose,Bedsideon 10-04-2020 Glucose [Mass/Vol] 145 mg/dL High 70-[address] [facility] Comment on above: Result Comment: Test performed by glucose meter. Results may be 10%-15% lower than serum/plasma values. (CLIA ID [id number]) Performed By: #### B GLU #### [facility] [address] [place] [address] Glucose [Mass/Vol] 128 mg/dL High 70-[address] [facility] Comment on above: Result Comment: Test performed by glucose meter. Results may be 10%-15% lower than serum/plasma values. (CLIA ID [id number]) Performed By: #### B GLU #### [facility] [address] [place] [address] Glucose [Mass/Vol] 208 mg/dL High 70-[address] [facility] Comment on above: Result Comment: Test performed by glucose meter. Results may be 10%-15% lower than serum/plasma values. (CLIA ID [id number]) Performed By: #### B GLU #### [facility] [address] [place] [address] Glucose [Mass/Vol] 145 mg/dL High 70-[address] [facility] Comment on above: Result Comment: Test performed by glucose meter. Results may be 10%-15% lower than serum/plasma values. (CLIA ID [id number]) Performed By: #### B GLU #### [facility] [address] [place] [address] Hemogram w/ Autodiffon 10-04 Abs Baso Cnt 0.0 10*3/uL Normal 0.0-0.[address] [facility] Comment on above: Performed By: #### B GLU #### [facility] [address] [place] [address] Abs Neutrophile Cnt 3.2 10*3/uL Normal 1.8-7.0 [facility] Comment on above: Performed By: #### B GLU #### [facility] [address] [place] [address] Basophils/100 WBC (Bld) 0.7 % Normal 0.0-2.0 [facility] Comment on above: Performed By: #### B GLU #### [facility] [address] [place] [address] Eosinophils (Bld) [#/Vol] 0.3 10*3/uL Normal 0.0-0.[address] [facility] Comment on above: Performed By: #### B GLU #### [facility] [address] [place] [address] Eosinophils/100 WBC (Bld) 5.5 % Normal 1.0-6.[address] [facility] Comment on above: Performed By: #### B GLU #### [facility] [address] [place] [address] Erythrocyte distribution width (RBC) [Ratio] 12.4 % Normal 11.5-14.[address] [facility] Comment on above: Performed By: #### B GLU #### [facility] [address] [place] [address] Granulocytes/100 WBC (Bld) 60.5 % Normal 40.0-80.[address] [facility] Comment on above: Performed By: #### B GLU #### [facility] [address] [place] [address] Hematocrit (Bld) [Volume fraction] 43.5 % Normal 40.0-52.[address] [facility] Comment on above: Performed By: #### B GLU #### [facility] [address] [place] [address] Hemoglobin (Bld) [Mass/Vol] 15.5 g/dL Normal 13.0-18.[address] [facility] Comment on above: Performed By: #### B GLU #### [facility] [address] [place] [address] Lymphocytes (Bld) [#/Vol] 1.4 10*3/uL Normal 1.0-4.[address] [facility] Comment on above: Performed By: #### B GLU #### [facility] [address] [place] [address] Lymphocytes/100 WBC (Bld) 26.1 % Normal 20.0-40.[address] [facility] Comment on above: Performed By: #### B GLU #### [facility] [address] [place] [address] MCH (RBC) [Entitic mass] 32.0 pg Normal 26.0-34.[address] [facility] Comment on above: Performed By: #### B GLU #### [facility] [address] [place] [address] MCHC 35.6 % Normal 32.0-36.[address] [facility] Comment on above: Performed By: #### B GLU #### [facility] [address] [place] [address] MCV (RBC) [Entitic vol] 89.8 fL Normal 80.0-98.0 [facility] Comment on above: Performed By: #### B GLU #### [facility] [address] [place] [address] Monocytes (Bld) [#/Vol] 0.4 10*3/uL Normal 0.0-0.[address] [facility] Comment on above: Performed By: #### B GLU #### [facility] [address] [place] [address] Monocytes/100 WBC (Bld) 7.2 % Normal 2.0-10.0 [facility] Comment on above: Performed By: #### B GLU #### [facility] [address] [place] [address] Platelet mean volume (Bld) [Entitic vol] 7.3 fL Low 7.4-10.[address] [facility] Comment on above: Performed By: #### B GLU #### [facility] [address] [place] [address] Platelets (Bld) [#/Vol] 113 10*3/uL Low 140-[address] [facility] Comment on above: Performed By: #### B GLU #### [facility] [address] [place] [address] RBC (Bld) [#/Vol] 4.84 10*6/uL Normal 4.40-5.[address] [facility] Comment on above: Performed By: #### B GLU #### [facility] [address] [place] [address] WBC (Bld) [#/Vol] 5.3 10*3/uL Normal 3.6-10.[address] [facility] Comment on above: Performed By: #### B GLU #### [facility] [address] [place] [address] Glucose,Bedsideon 07-04-2021 Glucose [Mass/Vol] 134 mg/dL [address] Comment on above: Result Comment: Test performed by glucose meter. Results may be 10%-15% lower than serum/plasma values. (CLIA ID [id number]) Performed By: #### B GLU #### [facility] [address] [place] [address] Glucose [Mass/Vol] 132 mg/dL High [address] [place] [address] Comment on above: Result Comment: Test performed by glucose meter. Results may be 10%-15% lower than serum/plasma values. (CLIA ID [id number]) Performed By: #### A DDON #### [facility] [address] [place] [address] Glucose [Mass/Vol] 130 mg/dL [address] Comment on above: Result Comment: Test performed by glucose meter. Results may be 10%-15% lower than serum/plasma values. (CLIA ID [id number]) Performed By: #### B GLU #### [facility] [address] [place] [address] Glucose [Mass/Vol] 151 mg/dL [address] Comment on above: Result Comment: Test performed by glucose meter. Results may be 10%-15% lower than serum/plasma values. (CLIA ID [id number]) Performed By: #### B GLU #### [facility] [address] [place] [address] Glucose,Bedsideon 10-02-2020 Glucose [Mass/Vol] 135 mg/dL [address] Comment on above: Result Comment: Test performed by glucose meter. Results may be 10%-15% lower than serum/plasma values. (CLIA ID [id number]) Performed By: #### B GLU #### [facility] [address] [place] [address] Glucose [Mass/Vol] 133 mg/dL [address] Comment on above: Result Comment: Test performed by glucose meter. Results may be 10%-15% lower than serum/plasma values. (CLIA ID [id number]) Performed By: #### B GLU #### [facility] [address] [place] [address] Glucose [Mass/Vol] 158 mg/dL High 70-[address] [facility] Comment on above: Result Comment: Test performed by glucose meter. Results may be 10%-15% lower than serum/plasma values. (CLIA ID [id number]) Performed By: #### B GLU #### [facility] [address] [place] [address] Glucose [Mass/Vol] 120 mg/dL High 70-[address] [facility] Comment on above: Result Comment: Test performed by glucose meter. Results may be 10%-15% lower than serum/plasma values. (CLIA ID [id number]) Performed By: #### B GLU #### [facility] [address] [place] [address] Basic Metabolic Panelon 07-0 -2020 Calcium [Mass/Vol] 8.7 mg/dL Normal 8.4-10.[address] [facility] Comment on above: Performed By: #### B GLU #### [facility] [address] [place] [address] Anion gap [Moles/Vol] 5 mmol/L Normal 3-13 [facility] Comment on above: Performed By: #### B GLU #### [facility] [address] [place] [address] CO2 [Moles/Vol] 26 mmol/L Normal 22-[address] [facility] Comment on above: Performed By: #### B GLU #### [facility] [address] [place] [address] Creatinine [Mass/Vol] 0.88 mg/dL Normal 0.52-1.25 [facility] Comment on above: Performed By: #### B GLU #### [facility] [address] [place] [address] GFR/1.73 sq M.predicted among blacks MDRD (S/P/Bld) [Vol rate/Area] mL/min/{1.73_m2} Normal >[address] [facility] Comment on above: Performed By: #### B GLU #### [facility] [address] [place] [address] GFR/1.73 sq M.predicted among non-blacks MDRD (S/P/Bld) [Vol rate/Area] 86.4 mL/min/{1.73_m2} Normal >[address] [facility] Comment on above: Result Comment: KDIG [...] secretion. Performed By: #### B GLU #### [facility] [address] [place] [address] Glucose [Mass/Vol] 120 mg/dL High 70-[address] [facility] Comment on above: Performed By: #### B GLU #### [facility] [address] [place] [address] Urea nitrogen [Mass/Vol] 13 mg/dL Normal 7-[address] [facility] Comment on above: Performed By: #### B GLU #### [facility] [address] [place] [address] Chloride [Moles/Vol] 101 mmol/L Normal 98-107 [facility] Comment on above: Performed By: #### B GLU #### [facility] [address] [place] [address] Potassium [Moles/Vol] 4.2 mmol/L Normal 3.5-5.1 [facility] Comment on above: Performed By: #### B GLU #### [facility] [address] [place] [address] Sodium [Moles/Vol] 132 mmol/L Low 135-[address] [facility] Comment on above: Performed By: #### B GLU #### [facility] [address] [place] [address] Echo Complete w/wo Contrasto n 10-01-2020 Echo Complete w/wo Contrast Patient Name: SHOLA MARTINEZ Ultrasound ACCESSION EXAM DATE/TIME PROCEDURE ORDERING PROVIDER [id number] 10/01/2020 10:18 EDT Echo Complete w/wo [id number] -CIERRA BALLARD Reason For Exam (Echo Complete w/wo Contrast) diastolic HF, no recent EF Report TRANSTHORACIC ECHOCARDIOGRAM PATIENT: Shola Martinez STUDY DATE: 10/01/2020 : 1950 AGE: 70 HT/WT: 188 cm (74 124.3 kg in) (273.4 lb) GENDER: M BP: 129 / 69 LOCATION: [facility] PATIENT Observation [facility] STATUS: *ORDERING PHYSICIAN: * Cierra Ballard *READING PHYSICIAN: * Pacheco Degroot MD, *BATCH FREEZER OPERATOR: * Cierra Adamson [facility] INDICATIONS: Diastolic HF, No recent EF. CONCLUSIONS [...] 10.2 11.3 (more content not included)... [email or web address] Glucose,Bedsideon 10-01-2020 Glucose [Mass/Vol] 119 mg/dL High 70-[address] [facility] Comment on above: Result Comment: Test performed by glucose meter. Results may be 10%-15% lower than serum/plasma values. (CLIA ID [id number]) Performed By: #### B GLU #### [facility] [address] [place] [address] Glucose [Mass/Vol] 125 mg/dL High 70-[address] [place] [address] Comment on above: Result Comment: Test performed by glucose meter. Results may be 10%-15% lower than serum/plasma values. (CLIA ID [id number]) Performed By: #### B GLU #### [facility] [address] [place] [address] Glucose [Mass/Vol] 132 mg/dL High 70-[address] [facility] Comment on above: Result Comment: Test performed by glucose meter. Results may be 10%-15% lower than serum/plasma values. (CLIA ID [id number]) Performed By: #### B GLU #### [facility] [address] [place] [address] Glucose [Mass/Vol] 119 mg/dL High 70-[address] [facility] Comment on above: Result Comment: Test performed by glucose meter. Results may be 10%-15% lower than serum/plasma values. (CLIA ID [id number]) Performed By: #### B GLU #### [facility] [address] [place] [address] Hemogram w/ Autodiffon 10-01 Abs Baso Cnt 0.0 10*3/uL Normal 0.0-0.[address] [facility] Comment on above: Performed By: #### B GLU #### [facility] [address] [place] [address] Abs Neutrophile Cnt 3.8 10*3/uL Normal 1.8-7.0 [facility] Comment on above: Performed By: #### B GLU #### [facility] [address] [place] [address] Basophils/100 WBC (Bld) 0.7 % Normal 0.0-2.0 [facility] Comment on above: Performed By: #### B GLU #### [facility] [address] [place] [address] Eosinophils (Bld) [#/Vol] 0.4 10*3/uL Normal 0.0-0.[address] [facility] Comment on above: Performed By: #### B GLU #### [facility] [address] [place] [address] Eosinophils/100 WBC (Bld) 7.1 % High 1.0-6.[address] [facility] Comment on above: Performed By: #### B GLU #### [facility] [address] [place] [address] Erythrocyte distribution width (RBC) [Ratio] 12.1 % Normal 11.5-14.[address] [facility] Comment on above: Performed By: #### B GLU #### [facility] [address] [place] [address] Granulocytes/100 WBC (Bld) 61.8 % Normal 40.0-80.[address] [facility] Comment on above: Performed By: #### B GLU #### [facility] [address] [place] [address] Hematocrit (Bld) [Volume fraction] 41.1 % Normal 40.0-52.[address] [facility] Comment on above: Performed By: #### B GLU #### [facility] [address] [place] [address] Hemoglobin (Bld) [Mass/Vol] 14.5 g/dL Normal 13.0-18.[address] [facility] Comment on above: Performed By: #### B GLU #### [facility] [address] [place] [address] Lymphocytes (Bld) [#/Vol] 1.5 10*3/uL Normal 1.0-4.[address] [facility] Comment on above: Performed By: #### B GLU #### [facility] [address] [place] [address] Lymphocytes/100 WBC (Bld) 24.5 % Normal 20.0-40.[address] [facility] Comment on above: Performed By: #### B GLU #### [facility] [address] [place] [address] MCH (RBC) [Entitic mass] 31.9 pg Normal 26.0-34.[address] [facility] Comment on above: Performed By: #### B GLU #### [facility] [address] [place] [address] MCHC 35.4 % Normal 32.0-36.[address] [facility] Comment on above: Performed By: #### B GLU #### [facility] [address] [place] [address] MCV (RBC) [Entitic vol] 90.1 fL Normal 80.0-98.0 [facility] Comment on above: Performed By: #### B GLU #### [facility] [address] [place] [address] Monocytes (Bld) [#/Vol] 0.4 10*3/uL Normal 0.0-0.[address] [facility] Comment on above: Performed By: #### B GLU #### [facility] [address] [place] [address] Monocytes/100 WBC (Bld) 5.9 % Normal 2.0-10.0 [facility] Comment on above: Performed By: #### B GLU #### [facility] [address] [place] [address] Platelet mean volume (Bld) [Entitic vol] 7.1 fL Low 7.4-10.[address] [facility] Comment on above: Performed By: #### B GLU #### [facility] [address] [place] [address] Platelets (Bld) [#/Vol] 131 10*3/uL Low 140-[address] [facility] Comment on above: Performed By: #### B GLU #### [facility] [address] [place] [address] RBC (Bld) [#/Vol] 4.56 10*6/uL Normal 4.40-5.[address] [facility] Comment on above: Performed By: #### B GLU #### [facility] [address] [place] [address] WBC (Bld) [#/Vol] 6.1 10*3/uL Normal 3.6-10.[address] [facility] Comment on above: Performed By: #### B GLU #### [facility] [address] [place] [address] Lipid Panelon 10-01-2020 Chol/HDL [address] [facility] Comment on above: Result Comment: Ref Range: < 3 Low Risk for CHD 3-6 Mod Risk for CHD > 6 High Risk for CHD Performed By: #### B GLU #### [facility] [address] [place] [address] Cholesterol in HDL [Mass/Vol] 23 mg/dL Low 40-[address] [facility] Comment on above: Performed By: #### B GLU #### [facility] [address] [place] [address] Low Density Lipoprotein 22 mg/dL Normal <100 [facility] Comment on above: Performed By: #### B GLU #### [facility] [address] [place] [address] Cholesterol [Mass/Vol] 82 mg/dL Normal < 200 [facility] Comment on above: Performed By: #### B GLU #### [facility] [address] [place] [address] Triglyceride [Mass/Vol] 184 mg/dL Abnormal <150 [facility] Comment on above: Performed By: #### B GLU #### [facility] [address] [place] [address] MRA Head w/o Contraston 07-0 MRA Head w/o Contrast Patient Name: SHOLA MIN [facility] ACCESSION EXAM DATE/TIME PROCEDURE ORDERING PROVIDER [id number] 10/01/2020 14:40 EDT MRA Head w/o Contrast CIERRA GONSALEZ CPT code 62571 Reason For Exam (MRA Head w/o Contrast) [...] is seen within the vessels of the [place]. 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 There is no critical intracranial stenosis. There [...] MRA other than origin of the left [employer]ENIOR PROJECT MANAGER ENGINEERING. Unremarkable MRA of the carotid arteries. No evidence of carotid artery stenosis. Report Dictated on Workstation: [id number] Final Dictating Physician: DO GARCÍA ALFRED Signed Date and Time: 10/01/2020 3:16 pm Signed by: DO GARCÍA ALFRED Transcribed Date and Time: 10/01/2020 3:[address] [facility] MRA Neck w/ + w/o Contraston 10-01-2020 MRA Neck w/ + w/o Contrast Patient Name: SHOLA MARTINEZ [facility] ACCESSION EXAM DATE/TIME PROCEDURE ORDERING PROVIDER [id number] 10/01/2020 15:07 EDT MRA Neck w/ + w/o CIERRA GONSALEZ Contrast CPT code 93278 Reason For Exam (MRA Neck w/ + [...] is seen within the vessels of the [place]. The globes and orbital contents [...] vessels. There is origin of the left SENIOR PROJECT MANAGER ENGINEERING. There is no critical intracranial stenosis. There [...] MRA other than origin of the left SENIOR PROJECT MANAGER ENGINEERING. Unremarkable MRA of the carotid arteries. No evidence of carotid artery stenosis. Report Dictated on Workstation: [id number] Final Dictating Physician: DO GARCÍA ALFRED Signed Date and Time: 10/01/2020 3:16 pm Signed by: DO GARCÍA ALFRED Transcribed Date and Time: 10/01/2020 3:[address] [facility] MRI Brain w/ + w/o Contrasto n 10-01-2020 MRI Brain w/ + w/o Contrast Patient Name: SHOLA MARTINEZ [facility]#: [id number] Magnetic Resonance Imaging ACCESSION EXAM DATE/TIME PROCEDURE ORDERING PROVIDER [id number] 10/01/2020 15:08 EDT MRI Brain w/ + w/o CIERRA GONSALEZ Contrast CPT code 46025 Reason For Exam (MRI Brain w/ + [...] is seen within the vessels of the [place]. The globes and orbital contents [...] vessels. There is origin of the left SENIOR PROJECT MANAGER ENGINEERING. There is no critical intracranial stenosis. There [...] MRA other than origin of the left SENIOR PROJECT MANAGER ENGINEERING. Unremarkable MRA of the carotid arteries. No evidence of carotid artery stenosis. Report Dictated on Workstation: [id number] Final Dictating Physician: DO GARCÍA ALFRED Signed Date and Time: 10/01/2020 3:16 pm Signed by: DO GARCÍA ALFRED Transcribed Date and Time: 10/01/2020 3:[address] [facility] Add on test from HISon 09-30 Add on test from HIS Accepted Normal [facility] [employer] [facility] Comment on above: Result Comment: Spec imen available & acceptable for analysis. Performed By: #### A DDON #### [facility] [address] [place] [address] CT Head or Brain w/o Contras ton 09-30-2020 CT Head or Brain w/o Contrast [facility]: [id number] Computed Tomography ACCESSION EXAM DATE/TIME PROCEDURE ORDERING PROVIDER [id number] 09/30/2020 13:[address] Head or Brain w/o JESSE PACK Contrast CPT code 08554 Reason For Exam (CT Head or Brain [...] Transcribed Date and Time: 09/30/2020 2:[address] [facility] Comp Panel with Mg Reflexon 09-30-2020 ALP [Catalytic activity/Vol] 83 U/L Normal 38-[address] [facility] Comment on above: Performed By: #### B GLU #### [facility] [address] [place] [address] ALT [Catalytic activity/Vol] 28 U/L Normal 0-[address] [facility] Comment on above: Result Comment: The ALT test is performed by an updated assay method. Please note that the reference intervals have been changed and are now sex specific. Performed By: #### B GLU #### [facility] [address] [place] [address] Anion gap [Moles/Vol] 11 mmol/L Normal 3-13 [facility] Comment on above: Performed By: #### B GLU #### [facility] [address] [place] [address] AST [Catalytic activity/Vol] 37 U/L Normal 15-[address] [facility] Comment on above: Performed By: #### B GLU #### [facility] [address] [place] [address] Bilirubin [Mass/Vol] 1.7 mg/dL High 0.2-1.3 [facility] Comment on above: Performed By: #### B GLU #### [facility] [address] [place] [address] Calcium [Mass/Vol] 9.5 mg/dL Normal 8.4-10.[address] [facility] Comment on above: Performed By: #### B GLU #### [facility] [address] [place] [address] CO2 [Moles/Vol] 21 mmol/L Low 22-[address] [facility] Comment on above: Performed By: #### B GLU #### [facility] [address] [place] [address] Creatinine [Mass/Vol] 0.90 mg/dL Normal 0.52-1.25 [facility] Comment on above: Performed By: #### B GLU #### [facility] [address] [place] [address] GFR/1.73 sq M.predicted among blacks MDRD (S/P/Bld) [Vol rate/Area] mL/min/{1.73_m2} Normal >[address] [facility] Comment on above: Performed By: #### B GLU #### [facility] [address] [place] [address] GFR/1.73 sq M.predicted among non-blacks MDRD (S/P/Bld) [Vol rate/Area] 85.6 mL/min/{1.73_m2} Normal >[address] [facility] Comment on above: Result Comment: KDIG [...] secretion. Performed By: #### B GLU #### [facility] [address] [place] [address] Glucose [Mass/Vol] 173 mg/dL High 70-[address] [facility] Comment on above: Performed By: #### B GLU #### [facility] [address] [place] [address] Protein [Mass/Vol] 7.6 g/dL Normal 6.3-8.[address] [facility] Comment on above: Performed By: #### B GLU #### [facility] [address] [place] [address] Urea nitrogen [Mass/Vol] 12 mg/dL Normal 7-[address] [facility] Comment on above: Performed By: #### B GLU #### [facility] [address] [place] [address] Albumin [Mass/Vol] 4.3 g/dL Normal 3.5-5.[address] [facility] Comment on above: Performed By: #### B GLU #### [facility] [address] [place] [address] Chloride [Moles/Vol] 102 mmol/L Normal 98-107 [facility] Comment on above: Performed By: #### B GLU #### [facility] [address] [place] [address] Potassium [Moles/Vol] 4.2 mmol/L Normal 3.5-5.1 [facility] Comment on above: Performed By: #### B GLU #### [facility] [address] [place] [address] Sodium [Moles/Vol] 135 mmol/L Normal 135-[address] [facility] Comment on above: Performed By: #### B GLU #### [facility] [address] [place] [address] ED Provider Noteon ED Provider Note Sandra [...] Community acquired pneumonia 04/2016 ? Diabetic neuropathy ([facility]) ? Dizziness after head injury 05/2013 ? Hx of blood clots ? Hyperlipidemia ? Hypertension ? Morbid obesity ([facility]) 05/21/2018 ? Recurrent UTI 02/03/2018 ? Sepsis due to gram-negative UTI ([facility]) 12/11/2017 ? Sleep apnea ? [...] Diabetes Mot (more content not included)... [email or web address] Glucose,Bedsideon 09-30-2020 Glucose [Mass/Vol] 159 mg/dL High 70-100 [facility] [employer] [facility] Comment on above: Result Comment: Test performed by glucose meter. Results may be 10%-15% lower than serum/plasma values. (CLIA ID [id number]) Performed By: #### A DDON #### [facility] [address] [place] [address] Glucose [Mass/Vol] 118 mg/dL High 70-[address] [facility] Comment on above: Result Comment: Test performed by glucose meter. Results may be 10%-15% lower than serum/plasma values. (CLIA ID [id number]) Performed By: #### B GLU #### [facility] [address] [place] [address] Glucose [Mass/Vol] 171 mg/dL High 70-[address] [facility] Comment on above: Result Comment: Test performed by glucose meter. Results may be 10%-15% lower than serum/plasma values. (CLIA ID [id number]) Performed By: #### B GLU #### [facility] [address] [place] [address] Hemoglobin A1Con 09-30-2020 Glucose [Mass/Vol] 131 mg/dL Normal [facility] Comment on above: Performed By: #### B GLU #### [facility] [address] [place] [address] HbA1c (Bld) [Mass fraction] 6.2 % Abnormal [facility] Comment on above: Result Comment: Norm al less than 5.7% Prediabetes 5.7% to 6.4% Diabetes 6.5% or higher --HgbA1C levels may not be accurate in patients who have renal disease, received recent blood transfusions, are anemic, or who have dyshemoglobinemia. Performed By: #### B GLU #### [facility] [address] [place] [address] Hemogram w/ Autodiffon 09-30 Abs Baso Cnt 0.0 10*3/uL Normal 0.0-0.[address] [facility] Comment on above: Performed By: #### B GLU #### [facility] [address] [place] [address] Abs Neutrophile Cnt 5.9 10*3/uL Normal 1.8-7.0 [facility] [employer] [facility] Comment on above: Performed By: #### B GLU #### [facility] [address] [place] [address] Basophils/100 WBC (Bld) 0.5 % Normal 0.0-2.0 [facility] Comment on above: Performed By: #### B GLU #### [facility] [address] [place] [address] Eosinophils (Bld) [#/Vol] 0.4 10*3/uL Normal 0.0-0.[address] [facility] Comment on above: Performed By: #### B GLU #### [facility] [address] [place] [address] Eosinophils/100 WBC (Bld) 4.7 % Normal 1.0-6.[address] [facility] Comment on above: Performed By: #### B GLU #### [facility] [address] [place] [address] Erythrocyte distribution width (RBC) [Ratio] 12.2 % Normal 11.5-14.[address] [facility] Comment on above: Performed By: #### B GLU #### [facility] [address] [place] [address] Granulocytes/100 WBC (Bld) 74.9 % Normal 40.0-80.[address] [facility] Comment on above: Performed By: #### B GLU #### [facility] [address] [place] [address] Hematocrit (Bld) [Volume fraction] 44.2 % Normal 40.0-52.[address] [facility] Comment on above: Performed By: #### B GLU #### [facility] [address] [place] [address] Hemoglobin (Bld) [Mass/Vol] 15.4 g/dL Normal 13.0-18.[address] [facility] Comment on above: Performed By: #### B GLU #### [facility] [address] [place] [address] Lymphocytes (Bld) [#/Vol] 1.2 10*3/uL Normal 1.0-4.[address] [facility] Comment on above: Performed By: #### B GLU #### [facility] [address] [place] [address] Lymphocytes/100 WBC (Bld) 14.9 % Low 20.0-40.[address] [facility] Comment on above: Performed By: #### B GLU #### [facility] [address] [place] [address] MCH (RBC) [Entitic mass] 31.2 pg Normal 26.0-34.[address] [facility] Comment on above: Performed By: #### B GLU #### [facility] [address] [place] [address] MCHC 34.9 % Normal 32.0-36.[address] [facility] Comment on above: Performed By: #### B GLU #### [facility] [address] [place] [address] MCV (RBC) [Entitic vol] 89.5 fL Normal 80.0-98.0 [facility] Comment on above: Performed By: #### B GLU #### [facility] [address] [place] [address] Monocytes (Bld) [#/Vol] 0.4 10*3/uL Normal 0.0-0.[address] [facility] Comment on above: Performed By: #### B GLU #### [facility] [address] [place] [address] Monocytes/100 WBC (Bld) 5.0 % Normal 2.0-10.0 [facility] Comment on above: Performed By: #### B GLU #### [facility] [address] [place] [address] Platelet mean volume (Bld) [Entitic vol] 6.7 fL Low 7.4-10.[address] [facility] Comment on above: Performed By: #### B GLU #### [facility] [address] [place] [address] Platelets (Bld) [#/Vol] 170 10*3/uL Normal 140-[address] [facility] Comment on above: Performed By: #### B GLU #### [facility] [address] [place] [address] RBC (Bld) [#/Vol] 4.94 10*6/uL Normal 4.40-5.[address] [facility] Comment on above: Performed By: #### B GLU #### [facility] [address] [place] [address] WBC (Bld) [#/Vol] 8.0 10*3/uL Normal 3.6-10.[address] [facility] Comment on above: Performed By: #### B GLU #### [facility] [address] [place] [address] Troponin Ion 09-30-2020 Troponin I.cardiac [Mass/Vol] ng/mL Normal 0.000-0.[address] [facility] Comment on above: Result Comment: . Performed By: #### A DDON #### [facility] [address] [place] [address] Troponin I.cardiac [Mass/Vol] ng/mL Normal 0.000-0.[address] [facility] Comment on above: Result Comment: . Performed By: #### B GLU #### [facility] [address] [place] [address] CNPNon 07-16-2020 CNPN Telephone (PARISAPRAD) -- SHOLA [...] Status:Closed by ESTELA LAU PA-C on 07/16/20 [facility] CT Cervical Spine WO Jordi jan 02-11-2020 Patient Name: SHOLA URBINA ND ---CT--- Exam Date/Time 02/11/2020 21:46:[address] Spine Cervical w/o Contrast Ordering Physician CAESAR ALBRECHT AMY L Accession Number [id number] CPT4 Codes 14282 () Reason For Exam FAll Report CT [...] MALAY Transcribed Date and Time: 02/11/2020 9:52 [facility] Incoming Radiology Results From [facility] - 02/11/2020 9:52 PM EST Patient Name: SHOLA MARTINEZ ---CT--- Exam Date/Time 02/11/2020 21:46:[address] Spine Cervical w/o Contrast Ordering Physician CAESAR ALBRECHT AMY L Accession Number [id number] CPT4 Codes 61362 () Reason For Exam FAll Report CT [...] MALAY Transcribed Date and Time: 02/11/2020 9:52 [facility], [place] CT Head WO Contraston 2019 Patient Name: SHOLA URBINA ND ---CT--- Exam Date/Time 02/11/2020 21:46:[address] Head or Brain w/o Contrast Ordering Physician CAESAR ALBRECHT AMY L Accession Number [id number] CPT4 Codes 83666 () Reason For Exam Fall Report CT [...] MALAY Transcribed Date and Time: 02/11/2020 9:48 [place], [place] [place] Incoming Radiology Results From [facility] - 02/11/2020 9:49 PM EST Patient Name: SHOLA MARTINEZ ---CT--- Exam Date/Time 02/11/2020 21:46:[address] Head or Brain w/o Contrast Ordering Physician CAESAR ALBRECHT AMY L Accession Number [id number] CPT4 Codes 65475 () Reason For Exam Fall Report CT [...] MALAY Transcribed Date and Time: 02/11/2020 9:48 [facility], [place] XR LUMBAR SPINE (2-3 VIEWS)o n 02-11-2020 Patient Name: SHOLA URBINA ND ---Diagnostic Radiology--- Exam Date/Time 02/11/2020 21:31:42 EST Exam CR Spine Lumbosacral 2 or 3 Views Ordering Physician CAESAR ALBRECHT AMY L Accession Number [id number] CPT4 Codes 21102 () Reason For Exam Fall Report Lumbosacral spine three views HISTORY: Fall, pain No fracture or dislocation. Mild degenerative changes. IMPRESSION: No acute findings. Report Dictated on --- Final --- Dictating Physician: MD FARRAR MALAY Signed Date and Time: 02/11/2020 9:45 pm Signed by: MD FARRAR MALAY Transcribed Date and Time: 02/11/2020 9:46 [place], [place] [place] Incoming Radiology Results From [facility] - 02/11/2020 9:46 PM EST Patient Name: SHOLA MARTINEZ ---Diagnostic Radiology--- Exam Date/Time 02/11/2020 21:31:42 EST Exam CR Spine Lumbosacral 2 or 3 Views Ordering Physician CAESAR ALBRECHT AMY L Accession Number [id number] CPT4 Codes 22881 () Reason For Exam Fall Report Lumbosacral spine three views HISTORY: Fall, pain No fracture or dislocation. Mild degenerative changes. IMPRESSION: No acute findings. Report Dictated on --- Final --- Dictating Physician: MD FARRAR MALAY Signed Date and Time: 02/11/2020 9:45 pm Signed by: MD FARRAR MALAY Transcribed Date and Time: 02/11/2020 9:46 [place], [place] Basic Metabolic Panel w/ Ref steve to MGon 09-16-2019 Anion gap [Moles/Vol] 11 mmol/L [place], [place] Calcium [Mass/Vol] 8.3 mg/dL Low 8.4 - 10. 4 mg/dL [place], [place] Chloride [Moles/Vol] 102 mmol/L 98 - 10 7 mmol/L [place] CO2 [Moles/Vol] 23 mmol/L 22 - 30 mmol/L [place] Creatinine [Mass/Vol] 0.72 mg/dL 0.52 - 1.25 mg/dL [place], [place] EGFR IF NonAfrican [place]kinan >90.0 >60 mL/min [place], [place] Comment on above: KDIGO guidelines pro [...] MDRD (S/P/Bld) [Vol rate/Area] mL/min/{1.73_m2} >60 mL/min [place], [place] Glucose [Mass/Vol] 142 mg/dL High 70 - 100 mg/dL [place], [place] Interpretation and review of laboratory results Abnormal [place], [place] Potassium [Moles/Vol] 4.0 mmol/L 3.5 - 5.1 mmol/L [place], [place] Sodium [Moles/Vol] 136 mmol/L 135 - 145 mmol/L [place], [place] Urea nitrogen [Mass/Vol] 8 mg/dL 7 - 20 mg/dL [place] Test Performed by [facility], [address] [place], [place] [address] [place], [place] CBCon 09-16-2019 Erythrocyte distribution width (RBC) [Ratio] 12.7 % 11.5 - 14.5 % [place], [place] Hematocrit (Bld) [Volume fraction] 38.1 % Low 40 - 52 % [place], [place] Hemoglobin (Bld) [Mass/Vol] 13.3 g/dL 13 - 18 g/dL [place], [place] Interpretation and review of laboratory results Abnormal [place], [place] MCH (RBC) [Entitic mass] 31.2 pg 26 - 34 pg [place] MCHC (RBC) [Mass/Vol] 34.9 % 32 - 36 % [place], [place] MCV (RBC) [Entitic vol] 89.5 fL 80 - 98 fL [place], [place] Platelet mean volume (Bld) [Entitic vol] 6.5 fL Low 7.4 - 10.4 fL [place], [place] Platelets (Bld) [#/Vol] 202 10*3/uL 140 - 440 10*3/uL [place], [place] RBC (Bld) [#/Vol] 4.25 10*6/uL Low 4.4 - 5.9 10*6/uL [place], [place] WBC (Bld) [#/Vol] 6.6 10*3/uL 3.6 - 10.7 10*3/uL [place] Test Performed by [facility], [address] [place], [place] [id number] [place] [address] POCT Glucoseon 09-16-2019 Glucose [Mass/Vol] 182 mg/dL High 70 - 100 mg/dL [place], [place] Comment on above: Test performed by ucose meter. Results may be 10%-15% lower than serum/plasma values. (CLIA ID [id number]) Interpretation and review of laboratory results Abnormal [place] Test Performed by [facility], [address] [place], [place] [address] [place], [place] Glucose [Mass/Vol] 258 mg/dL High 70 - 100 mg/dL [place], [place] Comment on above: Test performed by gl ucose meter. Results may be 10%-15% lower than serum/plasma values. (CLIA ID [id number]) Interpretation and review of laboratory results Abnormal [place] Test Performed by [facility], [address], [place], [place] [address] [place], [place] Glucose [Mass/Vol] 138 mg/dL High 70 - 100 mg/dL [place], [place] Comment on above: Test performed by gl ucose meter. Results may be 10%-15% lower than serum/plasma values. (CLIA ID [id number]) Interpretation and review of laboratory results Abnormal [place] Test Performed by [facility], [address], [place], [place] [address] [place], [place] Basic Metabolic Panel w/ Ref steve to MGon 09-15-2019 Anion gap [Moles/Vol] 10 mmol/L [place], [place] Calcium [Mass/Vol] 8.2 mg/dL Low 8.4 - 10. 4 mg/dL [place], [place] Chloride [Moles/Vol] 100 mmol/L 98 - 10 7 mmol/L [place], [place] CO2 [Moles/Vol] 24 mmol/L 22 - 30 mmol/L [place], [place] Creatinine [Mass/Vol] 0.71 mg/dL 0.52 - 1.25 mg/dL [place], [place] EGFR IF NonAfrican [place]kinan >90.0 >60 mL/min [place] Comment on above: KDIGO guidelines pro [...] MDRD (S/P/Bld) [Vol rate/Area] mL/min/{1.73_m2} >60 mL/min [place], [place] Glucose [Mass/Vol] 136 mg/dL High 70 - 100 mg/dL [place], [place] Interpretation and review of laboratory results Abnormal [place], [place] Potassium [Moles/Vol] 3.9 mmol/L 3.5 - 5.1 mmol/L [place], [place] Sodium [Moles/Vol] 133 mmol/L Low 135 - 145 mmol/L [place], [place] Urea nitrogen [Mass/Vol] 7 mg/dL 7 - 20 mg/dL [place] Test Performed by [facility], [address] [place], [place] [id number] [place] [address] CBCon 09-15-2019 Erythrocyte distribution width (RBC) [Ratio] 12.7 % 11.5 - 14.5 % [place] Hematocrit (Bld) [Volume fraction] 37.4 % Low 40 - 52 % [place], [place] Hemoglobin (Bld) [Mass/Vol] 13.0 g/dL 13 - 18 g/dL [place], [place] Interpretation and review of laboratory results Abnormal [place], [place] MCH (RBC) [Entitic mass] 31.2 pg 26 - 34 pg [place] MCHC (RBC) [Mass/Vol] 34.7 % 32 - 36 % [place] MCV (RBC) [Entitic vol] 89.9 fL 80 - 98 fL [place], [place] Platelet mean volume (Bld) [Entitic vol] 6.4 fL Low 7.4 - 10.4 fL [place], [place] Platelets (Bld) [#/Vol] 198 10*3/uL 140 - 440 10*3/uL [place] RBC (Bld) [#/Vol] 4.15 10*6/uL Low 4.4 - 5.9 10*6/uL [facility] WBC (Bld) [#/Vol] 8.2 10*3/uL 3.6 - 10.7 10*3/uL [facility] Test Performed by [facility], [address] [place], [place] [address] [facility] COVID-19on 09-15-2019 SARS-CoV-2 Not Detected Expected Result: Not Detected _ Real-time, RT-PCR performed on the [employer] by the [facility]. Negative results do not preclude SARS-CoV-2 infection and should not be used as the sole basis for treatment or other patient management decisions. This assay was developed and its performance characteristics determined by the [facility]. This test has been developed under an Emergency Use Authorization (EUA) granted by the FDA for the qualitative detection of SARS-CoV-2 nucleic acid (validation review pending). [facility] Test Performed by [facility], [address] [place] [id number] Specimen Source Comment:Nasopharyngeal Swab [facility] Otheron 09-15-2019 Interpretation and review of laboratory results Abnormal [facility] Test Performed by [facility], [address] [place] [address] [facility] POCT Glucoseon 09-15-2019 Glucose [Mass/Vol] 209 mg/dL High 70 - 100 mg/dL [facility] [place] [facility] MAR[place] Comment on above: Test performed by gl ucose meter. Results may be 10%-15% lower than serum/plasma values. (CLIA ID [id number]) Interpretation and review of laboratory results Abnormal [facility] Test Performed by [facility], [address] [place], [place] [address] [facility] Glucose [Mass/Vol] 140 mg/dL High 70 - 100 mg/dL [facility] [place] [facility] MARIPOSA Comment on above: Test performed by gl ucose meter. Results may be 10%-15% lower than serum/plasma values. (CLIA ID [id number]) Interpretation and review of laboratory results Abnormal [facility] [place] Test Performed by [facility], [address], [place], [place] [address] [place], [place] Glucose [Mass/Vol] 213 mg/dL High 70 - 100 mg/dL [place], [place] Comment on above: Test performed by gl ucose meter. Results may be 10%-15% lower than serum/plasma values. (CLIA ID [id number]) Glucose [Mass/Vol] 145 mg/dL High 70 - 100 mg/dL [place], [place] Comment on above: Test performed by gl ucose meter. Results may be 10%-15% lower than serum/plasma values. (CLIA ID [id number]) Glucose [Mass/Vol] 163 mg/dL High 70 - 100 mg/dL [place], [place] Comment on above: Test performed by gl ucose meter. Results may be 10%-15% lower than serum/plasma values. (CLIA ID [id number]) Interpretation and review of laboratory results Abnormal [place] Test Performed by [facility], [address], [place], [place] [address] [place] Basic Metabolic Panel w/ Ref steve to MGon 09-14-2019 Anion gap [Moles/Vol] 12 mmol/L [place], [place] Calcium [Mass/Vol] 7.9 mg/dL Low 8.4 - 10. 4 mg/dL [place], [place] Chloride [Moles/Vol] 100 mmol/L 98 - 10 7 mmol/L [place], [place] CO2 [Moles/Vol] 22 mmol/L 22 - 30 mmol/L [place] Creatinine [Mass/Vol] 0.72 mg/dL 0.52 - 1.25 mg/dL [place] EGFR IF NonAfrican Burkinan >90.0 >60 mL/min [place], [place] Comment on above: KDIGO guidelines pro [...] MDRD (S/P/Bld) [Vol rate/Area] mL/min/{1.73_m2} >60 mL/min [place], [place] Glucose [Mass/Vol] 139 mg/dL High 70 - 100 mg/dL [place], [place] Interpretation and review of laboratory results Abnormal [place], [place] Potassium [Moles/Vol] 3.8 mmol/L 3.5 - 5.1 mmol/L [place], [place] Sodium [Moles/Vol] 133 mmol/L Low 135 - 145 mmol/L [place], [place] Urea nitrogen [Mass/Vol] 8 mg/dL 7 - 20 mg/dL [place] Test Performed by [facility], [address], [place] [id number] [place] [address] CBCon 09-14-2019 Erythrocyte distribution width (RBC) [Ratio] 12.8 % 11.5 - 14.5 % [place] Hematocrit (Bld) [Volume fraction] 37.8 % Low 40 - 52 % [place], [place] Hemoglobin (Bld) [Mass/Vol] 13.1 g/dL 13 - 18 g/dL [place], [place] Interpretation and review of laboratory results Abnormal [place], [place] MCH (RBC) [Entitic mass] 31.2 pg 26 - 34 pg [place], [place] MCHC (RBC) [Mass/Vol] 34.6 % 32 - 36 % [place], [place] MCV (RBC) [Entitic vol] 90.1 fL 80 - 98 fL [place], [place] Platelet mean volume (Bld) [Entitic vol] 6.4 fL Low 7.4 - 10.4 fL [place], [place] Platelets (Bld) [#/Vol] 173 10*3/uL 140 - 440 10*3/uL [facility], [place] RBC (Bld) [#/Vol] 4.19 10*6/uL Low 4.4 - 5.9 10*6/uL [facility], [place] WBC (Bld) [#/Vol] 9.2 10*3/uL 3.6 - 10.7 10*3/uL [facility], [place] Test Performed by [facility], [address], [place], [place] [address] [facility], [place] Culture, Urineon 09-14-2019 Bacteria identified Cx Nom (U) Enterococcus faecalis Abnormal [place], [place] Bacteria identified Cx Nom (U) >100,000 CFU/ml [place], [place] Interpretation and review of laboratory results Abnormal [facility], [place] Test Performed by [facility], [address] [place] [id number] Specimen Source Comment:Urine, clean catch [place], [place] POCT Glucoseon 09-14-2019 Glucose [Mass/Vol] 196 mg/dL High 70 - 100 mg/dL [place], [place] Comment on above: Test performed by gl ucose meter. Results may be 10%-15% lower than serum/plasma values. (CLIA ID [id number]) Interpretation and review of laboratory results Abnormal [facility], [place] Test Performed by [facility], [address] [place], [place] [address] [place], [place] Glucose [Mass/Vol] 134 mg/dL High 70 - 100 mg/dL [place] Comment on above: Test performed by gl ucose meter. Results may be 10%-15% lower than serum/plasma values. (CLIA ID [id number]) Interpretation and review of laboratory results Abnormal [facility], [place] Test Performed by [facility], [address] [place], [place] [address] [place], [place] Glucose [Mass/Vol] 143 mg/dL High 70 - 100 mg/dL [facility], [place] Comment on above: Test performed by gl ucose meter. Results may be 10%-15% lower than serum/plasma values. (CLIA ID [id number]) Interpretation and review of laboratory results Abnormal [employer] Test Performed by [facility], [address] [place] [address] [employer] Glucose [Mass/Vol] 144 mg/dL High 70 - 100 mg/dL [facility] [employer] Comment on above: Test performed by ucose meter. Results may be 10%-15% lower than serum/plasma values. (CLIA ID [id number]) Interpretation and review of laboratory results Abnormal [employer] Test Performed by [employer] [facility], [address] [place], [place] [address] [place] [address] [employer] T4, Freeon 09-14-2019 Free T4 [Mass/Vol] 1.26 ng/dL 0.78 - 2.19 ng/dL [facility] [employer], [employer] Test Performed by [facility], [address] [place] [employer] TSH without Reflexon 020 TSH Qn 1.661 u[IU]/mL 0.465 - 4.68 u[IU]/mL [facility] [employer] Test Performed by [facility], [address] [place], [place] [address] [place] [address] [employer] Vitamin D 25 Hydroxyon 09-13 Interpretation and review of laboratory results Abnormal [facility] [employer] Vit D, 25-Hydroxy 19 ng/mL Low 30 - 100 ng/mL [facility] [employer] [place] Comment on above: Therapy is based on measurement of Total 25-OHD with the following classification levels: Less than 20 ng/mL: Indicative of Vit D deficiency 20-30 ng/mL: Suggests Vit D insufficiency Optimal: Greater than or equal to 30 ng/mL Test performed by [employer] Immuno[employer], measuring Total Vitamin D, not individual fractions. Test Performed by [employer] [facility], [address] [place] [place] Basic Metabolic Panel w/ Ref steve to MGon 09-13-2019 Anion gap [Moles/Vol] 13 mmol/L [facility] [employer] [place] Calcium [Mass/Vol] 7.3 mg/dL Low 8.4 - 10. 4 mg/dL [place], [place] Chloride [Moles/Vol] 103 mmol/L 98 - 10 7 mmol/L [place] CO2 [Moles/Vol] 19 mmol/L Low 22 - 30 mmol/L [place], [place] Creatinine [Mass/Vol] 0.7 mg/dL 0.52 - 1.25 mg/dL [place] EGFR IF NonAfrican Burkinan >90.0 >60 mL/min [place], [place] Comment on above: KDIGO guidelines pro [...] MDRD (S/P/Bld) [Vol rate/Area] mL/min/{1.73_m2} >60 mL/min [place] Glucose [Mass/Vol] 143 mg/dL High 70 - 100 mg/dL [place], [place] Interpretation and review of laboratory results Abnormal [place], [place] Potassium [Moles/Vol] 3.5 mmol/L 3.5 - 5.1 mmol/L [place], [place] Sodium [Moles/Vol] 134 mmol/L Low 135 - 145 mmol/L [place], [place] Urea nitrogen [Mass/Vol] 10 mg/dL 7 - 20 mg/dL [place], [place] Test Performed by [facility], [address], [place], [place] [address] [place], [place] CBCon 09-13-2019 Erythrocyte distribution width (RBC) [Ratio] 12.9 % 11.5 - 14.5 % [place], [place] Hematocrit (Bld) [Volume fraction] 34.7 % Low 40 - 52 % [place], [place] Hemoglobin (Bld) [Mass/Vol] 12.0 g/dL Low 13 - 18 g/dL [place], [place] Interpretation and review of laboratory results Abnormal [place], [place] MCH (RBC) [Entitic mass] 31.6 pg 26 - 34 pg [place], [place] MCHC (RBC) [Mass/Vol] 34.6 % 32 - 36 % [place] MCV (RBC) [Entitic vol] 91.2 fL 80 - 98 fL [place], [place] Platelet mean volume (Bld) [Entitic vol] 7.1 fL Low 7.4 - 10.4 fL [place], [place] Platelets (Bld) [#/Vol] 149 10*3/uL 140 - 440 10*3/uL [place], [place] RBC (Bld) [#/Vol] 3.80 10*6/uL Low 4.4 - 5.9 10*6/uL [place], [place] WBC (Bld) [#/Vol] 10.4 10*3/uL 3.6 - 10.7 10*3/uL [place] Test Performed by [facility], [address] [place] [id number] [place] [address] EKG 12 Leadon 09-13-[address] [facility] Test Date: 2019-09-12 Pat Name: Shola Martinez Department: 01 Room: 456 Gender: M Sportspersons: : 1950 Requested By: MOJGAN IVY Order Number: [id number] Reading MD: Pacheco Arriaga Measurements Intervals [place] Rate: 95 P: 57 GA: 172 QRS: -67 QRSD: 118 T: 29 QT: 356 QTc: 448 Interpretive Statements SINUS RHYTHM CONSIDER LEFT ATRIAL ABNORMALITY INFERIOR INFARCT, OLD Electronically Signed On 09-13-2019 13:07:41 EDT by Pacheco Arriaga [place], [place] Mark, [facility] Incoming Cardiology Results From [facility] - 09/13/2019 1:08 PM EDT [facility] Test Date: 2019-09-12 Pat Name: Shola Martinez Department: Room: 456 Gender: M Sport[place]ons: : 1950 Requested By: MOJGAN IVY Order Number: [id number] Reading MD: Pacheco Arriaga Measurements Intervals [place] Rate: 95 P: 57 GA: 172 QRS: -67 QRSD: 118 T: 29 QT: 356 QTc: 448 Interpretive Statements SINUS RHYTHM CONSIDER LEFT ATRIAL ABNORMALITY INFERIOR INFARCT, OLD Electronically Signed On 09-13-2019 13:07:41 EDT by Pacheco Arriaga [employer] Magnesiumon 09-13-2019 Magnesium [Mass/Vol] 1.6 mg/dL 1.6 - 2 .3 mg/dL [employer] Test Performed by [employer], [address] [place], [place] [address] [employer] POCT Glucoseon 09-13-2019 Glucose [Mass/Vol] 193 mg/dL High 70 - 100 mg/dL [employer] Comment on above: Test performed by gl ucose meter. Results may be 10%-15% lower than serum/plasma values. (CLIA ID [id number]) Interpretation and review of laboratory results Abnormal [employer] Test Performed by [employer], [address] [place] [address] [employer] [employer] Glucose [Mass/Vol] 134 mg/dL High 70 - 100 mg/dL [employer] Comment on above: Test performed by gl ucose meter. Results may be 10%-15% lower than serum/plasma values. (CLIA ID [id number]) Interpretation and review of laboratory results Abnormal [employer] Test Performed by [employer], [address] [place], [place] [address] [employer] Glucose [Mass/Vol] 175 mg/dL High 70 - 100 mg/dL [employer] Comment on above: Test performed by gl ucose meter. Results may be 10%-15% lower than serum/plasma values. (CLIA ID [id number]) Interpretation and review of laboratory results Abnormal [employer] Test Performed by [employer], [address] [place], [place] [address] [place], [place] Glucose [Mass/Vol] 190 mg/dL High 70 - 100 mg/dL [place], [place] Comment on above: Test performed by gl ucose meter. Results may be 10%-15% lower than serum/plasma values. (CLIA ID [id number]) Interpretation and review of laboratory results Abnormal [place], [place] Test Performed by [facility], [address] [place], [place] [address] [place], [place] Brain Natriuretic Peptideon 09-12-2019 Interpretation and review of laboratory results Abnormal [place], [place] Natriuretic peptide B (Bld) [Mass/Vol] 344 pg/mL High 0 - 125 pg/mL [place], [place] CKon 09-12-2019 Total CK 242 U/L High 30 - 170 U/L [place] COVID-19on 09-12-2019 SARS-CoV-2 Not Detected Expected Result: Not Detected _ Real-time, RT-PCR performed on the [employer] TORCH by the [facility]biology [facility]. Negative results do not preclude SARS-CoV-2 infection and should not be used as the sole basis for treatment or other patient management decisions. This assay was developed by [employer] and distributed under an Emergency Use Authorization (EUA) granted by the FDA for the qualitative detection of SARS-CoV-2 nucleic acid. [place], [place] Test Performed by [facility], [address] [place] [address] Specimen Source Comment:Nasopharyngeal Swab [place] Comprehensive Metabolic Pane vineet 09-12-2019 Albumin [Mass/Vol] 4.4 g/dL 3.5 - 5 g/dL [place], [place] ALP [Catalytic activity/Vol] 77 U/L 38 - 126 U/L [place] ALT [Catalytic activity/Vol] 25 U/L 0 - 49 U/L [place], [place] Comment on above: The ALT test is perf ormed by an updated assay method. Please note that the reference intervals have been changed and are now sex specific. Anion gap [Moles/Vol] 17 mmol/L [place], [place] AST [Catalytic activity/Vol] 32 U/L 15 - 46 U/L [place] Bilirubin Ql (U) 2.5 mg/dL High 0.2 - 1.3 mg/dL [place], [place] Calcium [Mass/Vol] 9.0 mg/dL 8.4 - 10. 4 mg/dL [place], [place] Chloride [Moles/Vol] 96 mmol/L Low 98 - 10 7 mmol/L [place], [place] CO2 [Moles/Vol] 22 mmol/L 22 - 30 mmol/L [place], [place] Creatinine [Mass/Vol] 0.83 mg/dL 0.52 - 1.25 mg/dL [place], [place] EGFR IF NonAfrican Burkinan 89.1 mL/min >60 [place], [place] Comment on above: KDIGO guidelines pro [...] MDRD (S/P/Bld) [Vol rate/Area] mL/min/{1.73_m2} >60 mL/min [place], [place] Glucose [Mass/Vol] 179 mg/dL High 70 - 100 mg/dL [place], [place] Potassium [Moles/Vol] 4.0 mmol/L 3.5 - 5.1 mmol/L [place] Protein [Mass/Vol] 7.6 g/dL 6.3 - 8.2 g/dL [place], [place] Sodium [Moles/Vol] 135 mmol/L 135 - 145 mmol/L [place], [place] Urea nitrogen [Mass/Vol] 11 mg/dL 7 - 20 mg/dL [place] D-Dimer, Quantitativeon 08-31 D-Dimer, Quant 0.53 mg/L High 0 - 0.5 mg/L [place], [place] Comment on above: [employer] D-Dimer va lues of <0.50 mg/L FEU can be used in combination with a pre-test probability model (e.g. Well's) to exclude pulmonary embolism (PE) disease, as well as an aid in the diagnosis of deep vein thrombosis (DVT). Interpretation and review of laboratory results Abnormal [place] Test Performed by [facility], [address], [place], [place] [address] [place] Hemogram (CBC) w/Auto Diffon 09-12-2019 Absolute Baso # 0.0 10*3/uL 0 - 0.2 10*3/uL [place], [place] Absolute Neut # 11.2 10*3/uL High 1.8 - 7 10*3/uL [place], [place] Basophils/100 WBC (Bld) 0.3 % 0 - 2 % [place] Eosinophils (Bld) [#/Vol] 0.0 10*3/uL 0 - 0.5 10*3/uL [place], [place] Eosinophils/100 WBC (Bld) 0.2 % Low 1 - 6 % [place], [place] Erythrocyte distribution width (RBC) [Ratio] 12.6 % 11.5 - 14.5 % [place], [place] Granulocytes/100 WBC (Bld) 88.3 % High 40 - 80 % [place] Hematocrit (Bld) [Volume fraction] 41.5 % 40 - 52 % [place], [place] Hemoglobin (Bld) [Mass/Vol] 14.6 g/dL 13 - 18 g/dL [place], [place] Interpretation and review of laboratory results Abnormal [place], [place] Lymphocytes (Bld) [#/Vol] 0.8 10*3/uL Low 1 - 4.3 10*3/uL [place], [place] Lymphocytes/100 WBC (Bld) 6.5 % Low 20 - 40 % [place], [place] MCH (RBC) [Entitic mass] 31.5 pg 26 - 34 pg [place], [place] MCHC (RBC) [Mass/Vol] 35.1 % 32 - 36 % [place] MCV (RBC) [Entitic vol] 89.7 fL 80 - 98 fL [place], [place] Monocytes (Bld) [#/Vol] 0.6 10*3/uL 0 - 0.8 10*3/uL [place], [place] Monocytes/100 WBC (Bld) 4.7 % 2 - 10 % [place], [place] Platelet mean volume (Bld) [Entitic vol] 7.5 fL 7.4 - 10.4 fL [place], [place] Platelets (Bld) [#/Vol] 192 10*3/uL 140 - 440 10*3/uL [place] RBC (Bld) [#/Vol] 4.63 10*6/uL 4.4 - 5.9 10*6/uL [place] WBC (Bld) [#/Vol] 12.7 10*3/uL High 3.6 - 10.7 10*3/uL [place] Test Performed by [facility], [address] [place] [address] Otheron 09-12-2019 Test Performed by [facility], [address] Interpretation and review of laboratory results Abnormal [place] Test Performed by [facility], [address] POCT Glucoseon 09-12-2019 Glucose [Mass/Vol] 166 mg/dL High 70 - 100 mg/dL [place], [place] Comment on above: Test performed by ucose meter. Results may be 10%-15% lower than serum/plasma values. (CLIA ID [id number]) Interpretation and review of laboratory results Abnormal [place] Test Performed by [facility], [address] Troponin x1on 09-12-2019 Troponin I.cardiac [Mass/Vol] ng/mL 0 - 0.034 ng/mL [place], [place] Comment on above: . Urinalysison 09-12-2019 Appearance (U) Clear Clear NA [place], [place] Comment on above: . Bacteria, UA Few Abnormal Negative /[HPF] [place], [place] Comment on above: . Bilirubin Urine Negative Negative mg/dL [place], [place] Comment on above: . Color (U) Yellow Lt. Yellow NA [place], [place] Comment on above: . Glucose, Ur Normal Normal (<70) mg/dL [place], [place] Comment on above: . Interpretation and review of laboratory results Abnormal [place] Ketones Ql (U) 10 mg/dL Abnormal Negative [place], [place] Comment on above: . LEUKOCYTES, UA 250 Abnormal Negative [place]/uL [place], [place] Comment on above: . Mucous Threads Few Negative /[LPF] [place] Comment on above: . Nitrite, Urine Negative Negative NA [place], [place] Comment on above: . Occult Blood,Urine 0.06 mg/dL Abnormal Negative [place], [place] Comment on above: . pH (U) 5.5 [pH] [place] Comment on above: . Protein (U) [Mass/Vol] 20 mg/dL Abnormal Negative [place] Comment on above: . RBC (U) [#/Vol] 3-5 Abnormal 0 - 2 /[HPF] [place], [place] Comment on above: . Specific [place], Urine 1.026 M [place] Comment on above: . Squam Epithel, UA 0-2 3 - 5 /[HPF] [place] Comment on above: . Urobilinogen, Urine Normal Normal (0-1) mg/dL [place], [place] Comment on above: . WBC, UA 6-10 Abnormal 0 - 5 /[HPF] [place], [place] Comment on above: . Test Performed by [facility], [address], [place], [place] [address] [place] Cervical Spine WO Contras ton 09-02-2019 Patient Name: SHOAL URBINA ND ---CT--- Exam Date/Time 09/02/2019 20:57:[address] Spine Cervical w/o Contrast Ordering Physician TYLER ANDERSON Accession Number [id number] CPT4 Codes 07583 () Reason For Exam fall Report CT [...] R Transcribed Date and Time: 09/02/2019 9:11 [facility] Incoming Radiology Results From [facility] - 09/02/2019 9:11 PM EDT Patient Name: SHOLA MARTINEZ ---CT--- Exam Date/Time 09/02/2019 20:57:[address] Spine Cervical w/o Contrast Ordering Physician TYLER ANDERSON Accession Number [id number] CPT4 Codes 77680 () Reason For Exam fall Report CT [...] R Transcribed Date and Time: 09/02/2019 9:11 [place] Facial Bones WO Contrasto n 09-02-2019 Patient Name: SHOLA URBINA ND ---CT--- Exam Date/Time 09/02/2019 20:35:[address] Maxillofacial w/o Contrast Ordering Physician TYLER ANDERSON Accession Number [id number] CPT4 Codes 92958 () Reason For Exam fall Report MAXILLOFACIAL [...] R Transcribed Date and Time: 09/02/2019 9:16 [place], [place], [facility] Incoming Radiology Results From [facility] - 09/02/2019 9:16 PM EDT Patient Name: SHOLA MARTINEZ ---CT--- Exam Date/Time 09/02/2019 20:35:[address] Maxillofacial w/o Contrast Ordering Physician TYLER ANDERSON Accession Number [id number] CPT4 Codes 71693 () Reason For Exam fall Report MAXILLOFACIAL [...] R Transcribed Date and Time: 09/02/2019 9:16 [place] CT Head WO Contraston 2019 Patient Name: SHOLA URBINA ND ---CT--- Exam Date/Time 09/02/2019 20:35:[address] Head or Brain w/o Contrast Ordering Physician TYLER ANDERSON Accession Number [id number] CPT4 Codes 59508 () Reason For Exam fall Report CT [...] nasal bone, not fully included in the [id number]. No calvarial fracture seen. There is a [...] bone fracture, not fully included in the [id number]. A dedicated CT of the facial bones was also performed, reported separately. Report Dictated on --- Final --- Dictating Physician: MD MULLIGAN JONATHAN R Signed Date and Time: 09/02/2019 9:06 pm Signed by: MD MULLIGAN JONATHAN R Transcribed Date and Time: 09/02/2019 9:07 [place] [facility] From [facility] - 09/02/2019 9:07 PM EDT Patient Name: SHOLA MARTINEZ ---CT--- Exam Date/Time 09/02/2019 20:35:[address] Head or Brain w/o Contrast Ordering Physician TYLER ANDERSON Accession Number [id number] CPT4 Codes 41129 () Reason For Exam fall Report CT [...] nasal bone, not fully included in the [id number]. No calvarial fracture seen. There is a [...] bone fracture, not fully included in the svlsi-[id number]-[id number]. A dedicated CT of the facial bones was also performed, reported separately. Report Dictated on --- Final --- Dictating Physician: MD MULLIGAN JONATHAN R Signed Date and Time: 09/02/2019 9:06 pm Signed by: MD MULLIGAN JONATHAN R Transcribed Date and Time: 09/02/2019 9:07 [place], [place] CBCon 12-04-2018 Erythrocyte distribution width (RBC) [Ratio] 12.4 % 11.5 - 14.5 % [place] Hematocrit (Bld) [Volume fraction] 37.2 % Low 40 - 52 % [place] Hemoglobin (Bld) [Mass/Vol] 13.3 g/dL 13 - 18 g/dL [place] Interpretation and review of laboratory results Abnormal [place] MCH (RBC) [Entitic mass] 31.1 pg 26 - 34 pg [place] MCHC (RBC) [Mass/Vol] 35.8 % 32 - 36 % [place] MCV (RBC) [Entitic vol] 86.9 fL 80 - 98 fL [place], [place] Platelet mean volume (Bld) [Entitic vol] 6.4 fL Low 7.4 - 10.4 fL [place], [place] Platelets (Bld) [#/Vol] 135 10*3/uL Low 140 - 440 10*3/uL [place] RBC (Bld) [#/Vol] 4.28 10*6/uL Low 4.4 - 5.9 10*6/uL [place] WBC (Bld) [#/Vol] 5.2 10*3/uL 3.6 - 10.7 10*3/uL [place] Test Performed by [facility], [address], [place], [place] [address] [place], [place] Comprehensive Metabolic Pane vineet 12-04-2018 Albumin [Mass/Vol] 3.6 g/dL 3.5 - 5 g/dL [place] ALP [Catalytic activity/Vol] 65 U/L 38 - 126 U/L [place] ALT [Catalytic activity/Vol] 37 U/L 13 - 69 U/L [place], [place] Anion gap [Moles/Vol] 7 mmol/L [place], [place] AST [Catalytic activity/Vol] 44 U/L 15 - 46 U/L [place] Bilirubin Ql (U) 1.8 mg/dL High 0.2 - 1.3 mg/dL [place] Calcium [Mass/Vol] 8.6 mg/dL 8.4 - 10. 4 mg/dL [place] Chloride [Moles/Vol] 97 mmol/L Low 98 - 10 7 mmol/L [place] CO2 [Moles/Vol] 28 mmol/L 22 - 30 mmol/L [place] Creatinine [Mass/Vol] 0.72 mg/dL 0.52 - 1.25 mg/dL [place] EGFR IF NonAfrican Burkinan >60.0 >60 mL/min [place], [place] Comment on above: Source- MDRD equatio n with creatinine calibration to IDMS(NKDEP) eGFR not recommended for drug dose adjustment GFR/1.73 sq M predicted among blacks MDRD (S/P/Bld) [Vol rate/Area] mL/min/{1.73_m2} >60 mL/min [place] Glucose [Mass/Vol] 155 mg/dL High 70 - 100 mg/dL [place] Interpretation and review of laboratory results Abnormal [place] Potassium [Moles/Vol] 4.1 mmol/L 3.5 - 5.1 mmol/L [place] Protein [Mass/Vol] 6.7 g/dL 6.3 - 8.2 g/dL [place] Sodium [Moles/Vol] 131 mmol/L Low 135 - 145 mmol/L [place], [place] Urea nitrogen [Mass/Vol] 8 mg/dL 7 - 20 mg/dL [place] Test Performed by [facility], [address], [place], [place] [address] [place], [place] POCT Glucoseon 12-04-2018 Glucose [Mass/Vol] 201 mg/dL High 70 - 100 mg/dL [place], [place] Comment on above: Test performed by gl ucose meter. Results may be 10%-15% lower than serum/plasma values. (CLIA ID [id number]) Interpretation and review of laboratory results Abnormal [place] Test Performed by [facility], [address], [place], [place] [address] [place] Glucose [Mass/Vol] 167 mg/dL High 70 - 100 mg/dL [place], [place] Comment on above: Test performed by ucose meter. Results may be 10%-15% lower than serum/plasma values. (CLIA ID [id number]) Interpretation and review of laboratory results Abnormal [place] Test Performed by [facility], [address], [place], [place] [address] [place], [place] Basic Metabolic Panelon Anion gap [Moles/Vol] 7 mmol/L [place], [place] Calcium [Mass/Vol] 8.1 mg/dL Low 8.4 - 10. 4 mg/dL [place] Chloride [Moles/Vol] 97 mmol/L Low 98 - 10 7 mmol/L [place] CO2 [Moles/Vol] 26 mmol/L 22 - 30 mmol/L [place] Creatinine [Mass/Vol] 0.75 mg/dL 0.52 - 1.25 mg/dL [place] EGFR IF NonAfrican [place]kinan >60.0 >60 mL/min [place], [place] Comment on above: Source- MDRD equatio n with creatinine calibration to IDMS(NKDEP) eGFR not recommended for drug dose adjustment GFR/1.73 sq M predicted among blacks MDRD (S/P/Bld) [Vol rate/Area] mL/min/{1.73_m2} >60 mL/min [place] Glucose [Mass/Vol] 156 mg/dL High 70 - 100 mg/dL [place] Potassium [Moles/Vol] 4.0 mmol/L 3.5 - 5.1 mmol/L [place] Sodium [Moles/Vol] 130 mmol/L Low 135 - 145 mmol/L [place], [place] Urea nitrogen [Mass/Vol] 9 mg/dL 7 - 20 mg/dL [place], [place] CBCon 12-03-2018 Erythrocyte distribution width (RBC) [Ratio] 12.4 % 11.5 - 14.5 % [place], [place] Hematocrit (Bld) [Volume fraction] 36.2 % Low 40 - 52 % [place] Hemoglobin (Bld) [Mass/Vol] 12.9 g/dL Low 13 - 18 g/dL [place] MCH (RBC) [Entitic mass] 31.4 pg 26 - 34 pg [place] MCHC (RBC) [Mass/Vol] 35.6 % 32 - 36 % [place] MCV (RBC) [Entitic vol] 88.3 fL 80 - 98 fL [place] Platelet mean volume (Bld) [Entitic vol] 6.9 fL Low 7.4 - 10.4 fL [place], [place] Platelets (Bld) [#/Vol] 112 10*3/uL Low 140 - 440 10*3/uL [place] RBC (Bld) [#/Vol] 4.10 10*6/uL Low 4.4 - 5.9 10*6/uL [place], [place] WBC (Bld) [#/Vol] 5.7 10*3/uL 3.6 - 10.7 10*3/uL [place], [place] Gastrointestinal Panel by MARIE Cazares 12-03-2018 Gastrointestinal PCR Panel NEGATIVE: No targets were detected by the [employer] Gastrointestinal PCR Panel. The [employer] Gastrointestinal PCR [...] the assay can be ordered separately with [facility] ([id number]). [place], [place] Test Performed by [facility], [address] [place] [id number] Specimen Source Comment:Stool [place], [place] Otheron 12-03-2018 Interpretation and review of laboratory results Abnormal [facility], [place] Test Performed by [facility], [address] [place], [place] [address] [facility] [place] POCT Glucoseon 12-03-2018 Glucose [Mass/Vol] 225 mg/dL High 70 - 100 mg/dL [facility] Comment on above: Test performed by gl ucose meter. Results may be 10%-15% lower than serum/plasma values. (CLIA ID [id number]) Interpretation and review of laboratory results Abnormal [facility] [employer] Test Performed by [facility], [address] [place], [place] [address] [place], [place] [address], [place] Glucose [Mass/Vol] 189 mg/dL High 70 - 100 mg/dL [facility] [employer]- [place], [place] Comment on above: Test performed by gl ucose meter. Results may be 10%-15% lower than serum/plasma values. (CLIA ID [id number]) Interpretation and review of laboratory results Abnormal [facility] Test Performed by [facility], [address] [place], [place] [address] [place] [address] [employer]- [place], [place] Glucose [Mass/Vol] 198 mg/dL High 70 - 100 mg/dL [facility] [employer]- [place], [place] Comment on above: Test performed by gl ucose meter. Results may be 10%-15% lower than serum/plasma values. (CLIA ID [id number]) Interpretation and review of laboratory results Abnormal [facility] Test Performed by [facility], [address] [place], [place] [address] [facility] [employer]- [place], [place] Glucose [Mass/Vol] 162 mg/dL High 70 - 100 mg/dL [facility]- [place], [place] Comment on above: Test performed by gl ucose meter. Results may be 10%-15% lower than serum/plasma values. (CLIA ID [id number]) Interpretation and review of laboratory results Abnormal [facility] Test Performed by [facility], [address] [place], [place] [address] [facility] Basic Metabolic Panelon Anion gap [Moles/Vol] 7 mmol/L [place] Calcium [Mass/Vol] 7.9 mg/dL Low 8.4 - 10. 4 mg/dL [place], [place] Chloride [Moles/Vol] 96 mmol/L Low 98 - 10 7 mmol/L [place] CO2 [Moles/Vol] 27 mmol/L 22 - 30 mmol/L [place] Creatinine [Mass/Vol] 0.76 mg/dL 0.52 - 1.25 mg/dL [place] EGFR IF NonAfrican Burkinan >60.0 >60 mL/min [place], [place] Comment on above: Source- MDRD equatio n with creatinine calibration to IDMS(NKDEP) eGFR not recommended for drug dose adjustment GFR/1.73 sq M predicted among blacks MDRD (S/P/Bld) [Vol rate/Area] mL/min/{1.73_m2} >60 mL/min [place] Potassium [Moles/Vol] 3.8 mmol/L 3.5 - 5.1 mmol/L [place], [place] Sodium [Moles/Vol] 129 mmol/L Low 135 - 145 mmol/L [place], [place] Urea nitrogen [Mass/Vol] 9 mg/dL 7 - 20 mg/dL [place] EKG 12 Lead - Chest Painon 0 12-02-2018 [facility] [employer] [facility] Test Date: 2018-11-30 Pat Name: Shola Martinez Department: [facility] Room: 454 Gender: M Sportspersons: FLOR : 1950 Requested By: ALEJANDRO Order Number: [id number] Piotr MD: Omkar Atwood Measurements Intervals [place] Rate: 85 P: 65 GA: 180 QRS: 6 QRSD: 118 T: 8 QT: 364 QTc: 433 Interpretive Statements SINUS RHYTHM NONSPECIFIC INTRAVENTRICULAR CONDUCTION DELAY BASELINE WANDER IN LEAD(S) V2 Compared to ECG 06/27/2018 04:20:14 No significant changes Electronically Signed On 12-02-2018 10:07:44 EDT by Omkar Atwood [place], [place] Mark, [facility] Incoming Cardiology Results From [facility] - 12/02/2018 10:08 AM EDT [facility] Test Date: 2018-11-30 Pat Name: Shola Martinez Department: [facility] Room: 454 Gender: M Sportspersons: FLOR : 1950 Requested By: ALEJANDRO Order Number: [id number] Piotr MD: Omkar Atwood Measurements Intervals [place] Rate: 85 P: 65 GA: 180 QRS: 6 QRSD: 118 T: 8 QT: 364 QTc: 433 Interpretive Statements SINUS RHYTHM NONSPECIFIC INTRAVENTRICULAR CONDUCTION DELAY BASELINE WANDER IN LEAD(S) V2 Compared to ECG 06/27/2018 04:20:14 No significant changes Electronically Signed On 12-02-2018 10:07:44 EDT by Omkar Atwood [employer] Metabolic Panelon 12-02-2018 Glucose [Mass/Vol] 190 mg/dL High 70 - 100 mg/dL [employer] Comment on above: Test performed by gl ucose meter. Results may be 10%-15% lower than serum/plasma values. (CLIA ID [id number]) Otheron 12-02-2018 Interpretation and review of laboratory results Abnormal [employer] Test Performed by [employer], [address] [place], [place] [address] [employer] POCT Glucoseon 12-02-2018 Glucose [Mass/Vol] 161 mg/dL High 70 - 100 mg/dL [employer] Comment on above: Test performed by [employer] ucose meter. Results may be 10%-15% lower than serum/plasma values. (CLIA ID [id number]) Interpretation and review of laboratory results Abnormal [employer] Test Performed by [employer], [address], [place], [place] [address] [employer] Glucose [Mass/Vol] 169 mg/dL High 70 - 100 mg/dL [employer] Comment on above: Test performed by gl ucose meter. Results may be 10%-15% lower than serum/plasma values. (CLIA ID [id number]) Interpretation and review of laboratory results Abnormal [employer] [employer] Test Performed by [employer], [address], [place], [place] [address] [employer] Glucose [Mass/Vol] 156 mg/dL High 70 - 100 mg/dL [place] Comment on above: Test performed by ucose meter. Results may be 10%-15% lower than serum/plasma values. (CLIA ID [id number]) Interpretation and review of laboratory results Abnormal [place] Test Performed by [facility], [address], [place], [place] [address] [place] Basic Metabolic Panel w/ Ref steve to MGon 12-01-2018 Anion gap [Moles/Vol] 7 mmol/L [place] Calcium [Mass/Vol] 8.1 mg/dL Low 8.4 - 10. 4 mg/dL [place] Chloride [Moles/Vol] 97 mmol/L Low 98 - 10 7 mmol/L [place] CO2 [Moles/Vol] 24 mmol/L 22 - 30 mmol/L [place] Creatinine [Mass/Vol] 0.82 mg/dL 0.52 - 1.25 mg/dL [place] EGFR IF NonAfrican [place]kinan >60.0 >60 mL/min [place] Comment on above: Source- MDRD equatio n with creatinine calibration to IDMS(NKDEP) eGFR not recommended for drug dose adjustment GFR/1.73 sq M predicted among blacks MDRD (S/P/Bld) [Vol rate/Area] mL/min/{1.73_m2} >60 mL/min [place] Glucose [Mass/Vol] 189 mg/dL High 70 - 100 mg/dL [place] Interpretation and review of laboratory results Abnormal [place] Potassium [Moles/Vol] 4.1 mmol/L 3.5 - 5.1 mmol/L [place] Sodium [Moles/Vol] 128 mmol/L Low 135 - 145 mmol/L [place] Urea nitrogen [Mass/Vol] 9 mg/dL 7 - 20 mg/dL [place] Test Performed by [facility] [employer] [facility], [address], [place], [place] [address] [place] CBC auto differentialon 09-0 Absolute Baso # 0.0 10*3/uL 0 - 0.2 10*3/uL [place] Absolute Neut # 5.2 10*3/uL 1.8 - 7 10*3/uL [place] Basophils/100 WBC (Bld) 0.2 % 0 - 2 % [place] Eosinophils (Bld) [#/Vol] 0.0 10*3/uL 0 - 0.5 10*3/uL [place], [place] Eosinophils/100 WBC (Bld) 0.1 % Low 1 - 6 % [place] Erythrocyte distribution width (RBC) [Ratio] 12.5 % 11.5 - 14.5 % [place], [place] Granulocytes/100 WBC (Bld) 80.6 % High 40 - 80 % [place] Hematocrit (Bld) [Volume fraction] 37.2 % Low 40 - 52 % [place], [place] Hemoglobin (Bld) [Mass/Vol] 12.7 g/dL Low 13 - 18 g/dL [place] Interpretation and review of laboratory results Abnormal [place] Lymphocytes (Bld) [#/Vol] 0.7 10*3/uL Low 1 - 4.3 10*3/uL [place], [place] Lymphocytes/100 WBC (Bld) 11.0 % Low 20 - 40 % [place] MCH (RBC) [Entitic mass] 31.1 pg 26 - 34 pg [place] MCHC (RBC) [Mass/Vol] 34.3 % 32 - 36 % [place] MCV (RBC) [Entitic vol] 90.8 fL 80 - 98 fL [place], [place] Monocytes (Bld) [#/Vol] 0.5 10*3/uL 0 - 0.8 10*3/uL [place], [place] Monocytes/100 WBC (Bld) 8.1 % 2 - 10 % [place] Platelet mean volume (Bld) [Entitic vol] 7.5 fL 7.4 - 10.4 fL [place], [place] Platelets (Bld) [#/Vol] 96 10*3/uL Low 140 - 440 10*3/uL [place] RBC (Bld) [#/Vol] 4.10 10*6/uL Low 4.4 - 5.9 10*6/uL [place], [place] WBC (Bld) [#/Vol] 6.5 10*3/uL 3.6 - 10.7 10*3/uL [place] Test Performed by [facility], [address] [place] [address] [place], [place] Hemoglobin A1Con 12-01-2018 eAG 174 mg/dL [place] HbA1c (Bld) [Mass fraction] 7.7 % High 4 - 5.7 % [place] Comment on above: --HgbA1C levels may not be accurate in patients who have renal disease, received recent blood transfusions, are anemic, or who have dyshemoglobinemia. Interpretation and review of laboratory results Abnormal [place] Test Performed by [facility], [address] [place], [place] [id number] [place] [address] LEGIONELLA ANTIGEN, URINEon 12-01-2018 LEGIONELLA ANTIGEN Legionella antigen N OT DETECTED. [place] Lactic Acid, Plasmaon 2018 Lactate [Moles/Vol] 1.6 mmol/L 0.7 - 2 mmol/L [place] Test Performed by [facility], [address] [place] [address] [place], [place] Otheron 12-01-2018 Test Performed by [facility], [address] [place] [id number] Specimen Source Comment:Urine, clean catch [place] POCT Glucoseon 12-01-2018 Glucose [Mass/Vol] 160 mg/dL High 70 - 100 mg/dL [place] Comment on above: Test performed by ucose meter. Results may be 10%-15% lower than serum/plasma values. (CLIA ID [id number]) Interpretation and review of laboratory results Abnormal [place] Test Performed by [facility], [address] [place] [address] [place] Glucose [Mass/Vol] 231 mg/dL High 70 - 100 mg/dL [place] Comment on above: Test performed by gl ucose meter. Results may be 10%-15% lower than serum/plasma values. (CLIA ID [id number]) Interpretation and review of laboratory results Abnormal [place] Test Performed by [facility], [address], [place], [place] [address] [place] Glucose [Mass/Vol] 220 mg/dL High 70 - 100 mg/dL [place] Comment on above: Test performed by gl ucose meter. Results may be 10%-15% lower than serum/plasma values. (CLIA ID [id number]) Interpretation and review of laboratory results Abnormal [place] Test Performed by [facility], [address], [place], [place] [address] [place] PROCALCITONINon 12-01-2018 Procalcitonin <0.10 <0.10 ng/mL [place] Sodium [Moles/Vol] See Below [place], [place] Comment on above: PCT <0.50 = Low risk of severe sepsis and/or septic shock. PCT >2.00 = High risk of severe sepsis and/or septic shock. Test Performed by [facility], [facility] [place] [address] [place] Respiratory Virus PCR Panelo n 12-01-2018 [...] pertussis Bordetella parapertussis Chlamydia pneumoniae Mycoplasma pneumoniae [place] Test Performed by [facility], [address] [place] [address] Specimen Source Comment:Nasopharyngeal [place] SODIUMon 12-01-2018 Interpretation and review of laboratory results Abnormal [place] Sodium [Moles/Vol] 128 mmol/L Low 135 - 145 mmol/L [place] Test Performed by [facility], [address], [place], [place] [address] [place] STREP PNEUMONIAE ANTIGENon 0 12-01-2018 STREP PNEUMONIAE ANTIGEN, URINE Strep pneumo antigen NOT DETECTED. [place] Add On Lab Teston 11-30-2018 Sodium [Moles/Vol] Rejected [place] Sodium [Moles/Vol] Accepted [place] Comment on above: Specimen available & acceptable for analysis. Test Performed by [facility], [address], [place], [place] [address] added to [id number] [place] Basic Metabolic Panelon 11-02 Anion gap [Moles/Vol] 9 mmol/L [place] Calcium [Mass/Vol] 8.9 mg/dL 8.4 - 10. 4 mg/dL [place] Chloride [Moles/Vol] 100 mmol/L 98 - 10 7 mmol/L [place] CO2 [Moles/Vol] 24 mmol/L 22 - 30 mmol/L [place] Creatinine [Mass/Vol] 0.89 mg/dL 0.52 - 1.25 mg/dL [place] EGFR IF NonAfrican [place]kinan >60.0 >60 mL/min [place] Comment on above: Source- MDRD equatio n with creatinine calibration to IDMS(NKDEP) eGFR not recommended for drug dose adjustment GFR/1.73 sq M predicted among blacks MDRD (S/P/Bld) [Vol rate/Area] mL/min/{1.73_m2} >60 mL/min [place] Glucose [Mass/Vol] 176 mg/dL High 70 - 100 mg/dL [place] Potassium [Moles/Vol] 4.1 mmol/L 3.5 - 5.1 mmol/L [place] Sodium [Moles/Vol] 133 mmol/L Low 135 - 145 mmol/L [place] Urea nitrogen [Mass/Vol] 8 mg/dL 7 - 20 mg/dL [place] Brain Natriuretic Peptideon 11-30-2018 Interpretation and review of laboratory results Abnormal [place] Natriuretic peptide B (Bld) [Mass/Vol] 178 pg/mL High 0 - 125 pg/mL [place] Hemogram (CBC) w/Auto Diffon 11-30-2018 Absolute Baso # 0.0 10*3/uL 0 - 0.2 10*3/uL [place], [place] Absolute Neut # 5.5 10*3/uL 1.8 - 7 10*3/uL [place] Basophils/100 WBC (Bld) 0.3 % 0 - 2 % [place], [place] Eosinophils (Bld) [#/Vol] 0.0 10*3/uL 0 - 0.5 10*3/uL [place] Eosinophils/100 WBC (Bld) 0.5 % Low 1 - 6 % [place] Erythrocyte distribution width (RBC) [Ratio] 12.4 % 11.5 - 14.5 % [place] Granulocytes/100 WBC (Bld) 80.0 % 40 - 80 % [place] Hematocrit (Bld) [Volume fraction] 42.0 % 40 - 52 % [place] Hemoglobin (Bld) [Mass/Vol] 14.5 g/dL 13 - 18 g/dL [place] Interpretation and review of laboratory results Abnormal [place] Lymphocytes (Bld) [#/Vol] 0.8 10*3/uL Low 1 - 4.3 10*3/uL [place] Lymphocytes/100 WBC (Bld) 12.4 % Low 20 - 40 % [place] MCH (RBC) [Entitic mass] 30.5 pg 26 - 34 pg [place] MCHC (RBC) [Mass/Vol] 34.5 % 32 - 36 % [place] MCV (RBC) [Entitic vol] 88.6 fL 80 - 98 fL [place], [place] Monocytes (Bld) [#/Vol] 0.5 10*3/uL 0 - 0.8 10*3/uL [place] Monocytes/100 WBC (Bld) 6.8 % 2 - 10 % [place] Platelet mean volume (Bld) [Entitic vol] 7.5 fL 7.4 - 10.4 fL [place] Platelets (Bld) [#/Vol] 103 10*3/uL Low 140 - 440 10*3/uL [place] RBC (Bld) [#/Vol] 4.74 10*6/uL 4.4 - 5.9 10*6/uL [place] WBC (Bld) [#/Vol] 6.8 10*3/uL 3.6 - 10.7 10*3/uL [place] Test Performed by [facility], [address] [place], [place] [id number] [place] [address] Hepatic Function Panelon Albumin [Mass/Vol] 3.9 g/dL 3.5 - 5 g/dL [place] ALP [Catalytic activity/Vol] 67 U/L 38 - 126 U/L [place] ALT [Catalytic activity/Vol] 43 U/L 13 - 69 U/L [place] AST [Catalytic activity/Vol] 42 U/L 15 - 46 U/L [place] Bilirubin Ql (U) 2.3 mg/dL High 0.2 - 1.3 mg/dL [place] Bilirubin.direct [Mass/Vol] 0.0 mg/dL 0 - 0.3 mg/dL [place] Protein [Mass/Vol] 6.8 g/dL 6.3 - 8.2 g/dL [place] Lactic Acid, Plasmaon 2018 Lactate [Moles/Vol] 1.9 mmol/L 0.7 - 2 mmol/L [place] Test Performed by [facility], [address] [place], [place] [address] [place] Interpretation and review of laboratory results Abnormal [place] Lactate [Moles/Vol] 2.6 mmol/L Critically high 0.7 - 2 mmol/L [place] Interpretation and review of laboratory results Abnormal [place] Lactate [Moles/Vol] 2.9 mmol/L Critically high 0.7 - 2 mmol/L [place] Test Performed by [facility], [address] [place], [place] [id number] [place] [address] Lipaseon 11-30-2018 Lipase [Catalytic activity/Vol] 41 U/L 23 - 300 U/L [place] Test Performed by [facility], [address], [place], [place] [address] [place] [address] Otheron 11-30-2018 Test Performed by [facility], [address], [address] Test Performed by [facility], [address], [address] Interpretation and review of laboratory results Abnormal [place] Test Performed by [facility], [address] Troponin x1on 11-30-2018 Troponin I.cardiac [Mass/Vol] ng/mL 0 - 0.034 ng/mL [place] Comment on above: < 0.034 = negative 0.034 0.120 = indeterminate > 0.120 = positive Urinalysison 11-30-2018 Appearance (U) Clear [place] Comment on above: Reference Range: Andrea ar Bilirubin Urine Negative mg/dL [place] Comment on above: Reference Range: Neg ative Color (U) Yellow [place] Comment on above: Reference Range: Lt. Yellow Glucose, Ur 50 mg/dL [place] Comment on above: Reference Range: Nor mal (<70) Ketones Ql (U) Negative mg/dL [place] Comment on above: Reference Range: Neg ative LEUKOCYTES, UA Negative [place]/uL [place] Comment on above: Reference Range: Neg ative Mucous Threads Few /[LPF] [place] Comment on above: Reference Range: Neg ative Nitrite, Urine Negative [place] Comment on above: Reference Range: Neg ative Occult Blood,Urine 0.03 mg/dL [place] Comment on above: Reference Range: Neg ative pH (U) 5.5 [pH] [place] Protein (U) [Mass/Vol] Negative mg/dL [place] Comment on above: Reference Range: Neg ative RBC (U) [#/Vol] 0-2 /[HPF] [place] Comment on above: Reference Range: 0-2 Specific [place], Urine 1.021 M [place] Squam Epithel, UA 0-2 /[HPF] [place] Comment on above: Reference Range: 3-5 Urobilinogen, Urine 2 mg/dL [place] Comment on above: Reference Range: Nor mal (0-1) WBC, UA 0-2 /[HPF] [place] Comment on above: Reference Range: 0-5 Test Performed by [facility], [address] [place], [place], [place] [id number] [place] [address] XR Acute Abd Series Chest 1 VWon 11-30-2018 Patient Name: SHOLA URBINA ND ---Diagnostic Radiology--- Exam Date/Time 11/30/2018 19:02:17 EDT Exam CR Abdomen Series w/ Chest 1 View Ordering Physician DO HARDIN GEORGE E Accession Number [id number] CPT4 Codes 50966 () Reason For Exam abdominal pain Report [...] DIANE Transcribed Date and Time: 11/30/2018 7:32 [place], [facility] Incoming Radiology Results From [facility] - 11/30/2018 7:32 PM EDT Patient Name: SHOLA MARTINEZ ---Diagnostic Radiology--- Exam Date/Time 11/30/2018 19:02:17 EDT Exam CR Abdomen Series w/ Chest 1 View Ordering Physician DO HARDIN GEORGE E Accession Number [id number] CPT4 Codes 79649 () Reason For Exam abdominal pain Report [...] DIANE Transcribed Date and Time: 11/30/2018 7:32 [facility], [employer] XR CHEST PORTABLEon 12-01-19 [facility], [facility] Incoming Radiology Results From [facility] - 11/30/2018 11:45 AM EDT Patient Name: SHOLA MATRINEZ ---Diagnostic Radiology--- Exam Date/Time 11/30/2018 11:10:00 EDT Exam CR Chest Portable Ordering Physician ZULEMA MUKHERJEE BETH A. Accession Number [id number] CPT4 Codes 62417 () Reason For Exam possible aspiration pne. [...] L Transcribed Date and Time: 11/30/2018 11:45 [place] Patient Name: SHOLA URBINA ND ---Diagnostic Radiology--- Exam Date/Time 11/30/2018 11:10:00 EDT Exam CR Chest Portable Ordering Physician ZULEMA MUKHERJEE BETH A. Accession Number [id number] CPT4 Codes 02570 () Reason For Exam possible aspiration pne. [...] L Transcribed Date and Time: 11/30/2018 11:45 [place] Glucose,Bedsideon 08-27-2018 Glucose mass conc 142 mg/dL High 70-[address] [facility] Comment on above: Result Comment: Test performed by glucose meter. Results may be 10%-15% lower than serum/plasma values. (CLIA ID [id number]) Performed By: #### B GLU #### [facility] [address] [place] [address] Glucose mass conc 170 mg/dL High 70-[address] [facility] Comment on above: Result Comment: Test performed by glucose meter. Results may be 10%-15% lower than serum/plasma values. (CLIA ID [id number]) Performed By: #### B GLU #### [facility] [address] [place] [address] Op Noteon 08-27-2018 Op Note [facility] Dictation: Topical Anesthesia Note Patient Name: Shola Martinez : 1950 Date of Procedure: 08/27/2018 Surgeon: Judy Reyes M.D. Human Performance Consultant: Anesthesia: general Preop Dx: Mature Cataract left [...] created using a cystotome and utrata forceps. Kaplan-dissection and hydro-delineation were then performed.Phacoemulsificat ion was [...] in pain or any other concerns. Normal [facility] Glucose,Bedsideon 07-30-2018 Glucose mass conc 145 mg/dL High 70-[address] [facility] Comment on above: Result Comment: Test performed by glucose meter. Results may be 10%-15% lower than serum/plasma values. (CLIA ID [id number]) Performed By: #### B GLU #### [address] [address] Op Noteon 07-30-2018 Op Note [facility] Dictation: Topical Anesthesia Note Patient Name: Shola Martinez : 1950 Date of Procedure: 07/30/2018 Surgeon: Judy Reyes M.D. Human Performance Consultant: Anesthesia: Monitored Anesthesia Care with Topical Anesthesia [...] created using a cystotome and utrata forceps. Kaplan-dissection and hydro-delineation were then performed. Phacoemulsification was [...] in pain or any other concerns. Normal [facility] Prealbuminon 09-26-2017 Prealbumin mass conc 23 mg/dL Normal 23-42 [facility] Comment on above: Performed By: #### U FMIC ####[address] [phone] Comp Metabolic Panelon 09-25 Albumin mass conc 3.8 g/dL Normal 3.4-4.8 [facility] Comment on above: Performed By: #### C MP ####[address] [phone] ALP enzyme act/vol 59 U/L Normal 40-129 [facility] Comment on above: Performed By: #### C MP ####[address] [phone] ALT enzyme act/vol 27 U/L Normal 0-41 [facility] Comment on above: Performed By: #### C MP ####[address] [phone] AST enzyme act/vol 33 U/L Normal 0-37 [facility] Comment on above: Performed By: #### C MP ####[address] [phone] Bili,Total 1.1 mg/dl High 0.0-1.0 [facility] Comment on above: Result Comment: Faisal ature : 1 Day 1.0-6.0 mg/dl 2 Day 6.0-8.0 mg/dl 3-5 Day 10.0-15.0 mg/dl Performed By: #### C MP ####[address] [phone] Calcium mass conc 8.9 mg/dL Normal 7.6-11.0 [facility] Comment on above: Performed By: #### C MP ####[address] [phone] Chloride molar conc 100 mmol/L Normal 96-108 [facility] Comment on above: Performed By: #### C MP ####[address] [phone] CO2 molar conc 25.1 mmol/L Normal 22.0-29.0 [facility] Comment on above: Performed By: #### C MP ####[address] [phone] Creatinine mass conc 0.94 mg/dL Normal 0.70-1.20 [facility] Comment on above: Result Comment: Faisal ature 0.3-1.0 mg/dL Performed By: #### C MP ####[address] [phone] Glucose mass conc 124 mg/dL High 70-99 [facility] Comment on above: Result Comment: Lavonne gardner for Diagnosis of Diabetes(Effective 09/05/10):Fasting specimen (no caloric intake for at least 8 hours). <100 mg/dl Normal 100-125 mg/dl Increased Risk for Diabetes >125 mg/dl Diagnostic for DiabetesRandom Glucose (any time of day without regard to last meal). >=200 mg/dl plus Classic Symptoms of Diabetes Performed By: #### C MP ####[address] [phone] Potassium molar conc 3.6 mmol/L Normal 3.3-5.1 [facility] Comment on above: Performed By: #### C MP ####[address] [phone] Protein mass conc 6.6 g/dL Normal 5.9-8.4 [facility] Comment on above: Performed By: #### C MP ####[address] [phone] Sodium molar conc 136 mmol/L Normal 133-145 [facility] Comment on above: Performed By: #### C MP ####[address] [phone] Urea nitrogen mass conc 13 mg/dL Normal 4-19 A [facility] Comment on above: Performed By: #### C MP ####[address] [phone] Complete Blood Counton 09-25 Differential Complete Manual Normal [facility] Comment on above: Performed By: #### C BC ####[address] [phone] Erythrocyte distribution width Auto Ratio (RBC) 12.4 % Normal 0.0-14.4 [facility] Comment on above: Performed By: #### C BC ####[address] [phone] Hematocrit Auto Volume Fraction (Bld) 41.5 % Normal 41.0-50.0 [facility] Comment on above: Performed By: #### C BC ####[address] [phone] Hemoglobin mass conc (Bld) 14.1 g/dL Normal 13.5-16.5 [facility] Comment on above: Performed By: #### C BC ####[address] [phone] Immature granulocytes/100 WBC (Bld) 0.40 % Normal [facility] Comment on above: Result Comment: Brittny ture Granulocyte Percent includes promyelocytes, myelocytes,and metamyelocytes. IG% > 1.0 indicates a left shift ispresent. With automated differentials, bands are includedin the neutrophil count and not in the Immature GranulocytePercent. Performed By: #### C BC ####[address] [phone] MCH Auto Entitic mass (RBC) 29.8 pg Normal 26.0-34.0 [facility] Comment on above: Performed By: #### C BC ####[address] [phone] MCHC Auto mass conc (RBC) 34.0 % Normal 31.0-37.0 [facility] Comment on above: Performed By: #### C BC ####[address] [phone] MCV Auto Entitic volume (RBC) 87.7 fL Normal 80.0-100.0 [facility] Comment on above: Performed By: #### C BC ####[address] [phone] Nucleated RBC/100 WBC Ratio (Bld) 0.0 % Normal -1.0-0.0 [facility] Comment on above: Performed By: #### C BC ####[address] [phone] Platelet mean volume Auto Entitic volume (Bld) 9.1 fL Normal [facility] Comment on above: Result Comment: MPV is plateletrange and agedependent Performed By: #### C BC ####[address] [phone] Platelets Auto #/vol (Bld) 118 10*3/uL Low 150-450 [facility] Comment on above: Performed By: #### C BC ####[address] [phone] RBC Auto #/vol (Bld) 4.73 10E12/L Normal 4.50-5.50 [facility] Comment on above: Performed By: #### C BC ####[address] [phone] WBC Auto #/vol (Bld) 7.6 10*3/uL Normal 4.5-11.0 [facility] Comment on above: Performed By: #### C ####[facility] [address] [place] [phone] Discharge Summaryon 09-26-19 18 [employer] Authentication Interface Message Text Surgery Discharge SummaryName: Shola Martinez#: [id number] : 1950Room #: 3637/01 Age/Sex: 67 y.o. [...] to be [facility] with assistance of a friend. His wounds [...] use illicit drugs, drive a vehicle, operate heavy[employer], ride a bicycle, go to work or school,or play contact sports whiletaking your prescribed narcotic pain medication. As directed Patient Instructions As directed Comments: [facility] on September 28 at 1:00pm. HomeHealth Care provided by [facility] [employer] [phone]. They should be callingyou to set up [...] for age As directedSigned:KALEY Grande-C62:51 PM Normal [facility] Glucose by Meteron 8 Glucose mass conc 134 mg/dL High 60-110 [facility] Comment on above: Result Comment: Beds diane glucose is a screening procedure. The bedside glucosestrip is calibrated to deliver plasma glucose levels. Glucosemeter values <45 mg/dl and >450 mg/dl must be confirmed with aplasma or whole blood glucose performed in the lab. Wholeblood glucose results are 10-15% lower than plasma glucoseresults. Performed By: #### G LUM ####[address] [phone] Glucose mass conc 142 mg/dL High 60-110 [facility] Comment on above: Result Comment: [facility] diane glucose is a screening procedure. The bedside glucosestrip is calibrated to deliver plasma glucose levels. Glucosemeter values <45 mg/dl and >450 mg/dl must be confirmed with aplasma or whole blood glucose performed in the lab. Wholeblood glucose results are 10-15% lower than plasma glucoseresults. Performed By: #### G LUM ####[address] [phone] Glucose mass conc 144 mg/dL High 60-110 [facility] Comment on above: Result Comment: [facility] diane glucose is a screening procedure. The bedside glucosestrip is calibrated to deliver plasma glucose levels. Glucosemeter values <45 mg/dl and >450 mg/dl must be confirmed with aplasma or whole blood glucose performed in the lab. Wholeblood glucose results are 10-15% lower than plasma glucoseresults. Performed By: #### G LUM ####[address] [phone] H&Josue 09-25-2017 Investment [employer]visor Authentication Interface Message Text HISTORY AND PHYSICALDATE [...] Take 25 mg by mouth daily 09/24/2017 [id number] tamsulosin (FLOMAX) 0.4 MG capusle Take 0.4 mg by mouth daily 09/24/2017 [id number] Linagliptin (TRADJENTA) 5 MG TABS Take 5 [...] regular rate and rhythm, normal S1 and M9Phyzhzxohmm: breath sounds clearAbdomen: abdomen is soft, nontender, [...] was discussed duringthis visit.Kelvin Almanzar MD09/25/2017 Normal [facility] Manual Differentialon 2017 Absolute Neutrophil No. 4.7 Normal A [facility] Comment on above: Performed By: #### M DIFF ####[address] [phone] Atypical Lymphocytes 11 % High 0-8 [facility] Comment on above: Performed By: #### M DIFF ####[address] [phone] Band Neutrophils 7 % Normal 5-11 [facility] Comment on above: Performed By: #### M DIFF ####[address] [phone] Cell Morphology Normal Normal [facility] Comment on above: Performed By: #### M DIFF ####[address] [phone] Eosinophils 1 % Normal 0-3 [facility] Comment on above: Performed By: #### M DIFF ####[facility] [address] [phone] Lymphocytes 24 % Normal 24-44 [facility] Comment on above: Performed By: #### M DIFF ####[facility] [address] [phone] Metamyelocytes 0 % Normal 0-0 [facility] Comment on above: Performed By: #### M DIFF ####[facility] [address] [phone] Monocytes 2 % Low 3-6 [facility] Comment on above: Performed By: #### M DIFF ####[address] [phone] Myelocytes 0 % Normal 0-0 [facility] Comment on above: Performed By: #### M DIFF ####[facility] [address] [phone] Promyelocytes 0 % Normal 0-0 [facility] Comment on above: Performed By: #### M DIFF ####[facility] [address] [phone] Segmented Neutrophils 55 % Normal 35-66 [facility] Comment on above: Performed By: #### M DIFF ####[facility] [address] [phone] Urinalysis,Automatedon 09-25 Epithelial cells.squamous LM.HPF #/area (Urine sed) 1 /uL Normal 0-20 [facility] Comment on above: Performed By: #### U FMIC ####[address] [phone] INR Coag RelTime (Bld) 1.0 /uL Normal 0.0-20.0 [facility] Comment on above: Performed By: #### U FMIC ####[address] [phone] Mucous Small Normal [facility] Comment on above: Performed By: #### U FMIC ####[facility] [address] [phone] WBC 2.0 /uL Normal 0.0-20.0 [facility] Comment on above: Performed By: #### U FMIC ####[address] [phone] Urinalysis,Completeon 2017 Volume 12 ml Normal 12 [facility] Comment on above: Performed By: #### U ACOM ####[address] [phone] Bilirubin,urine Negative Normal Negative [facility] Comment on above: Performed By: #### U ACOM ####[facility] [address] [phone] Character Clear Normal [facility] Comment on above: Performed By: #### U ACOM ####[facility] [address] [phone] Color Straw Normal [facility] Comment on above: Performed By: #### U ACOM ####[facility] [address] [phone] Glucose Ql (U) Negative Normal Negative [facility] Comment on above: Performed By: #### U ACOM ####[facility] [address] [phone] Hemoglobin Negative Normal Negative [facility] Comment on above: Performed By: #### U ACOM ####[address] [phone] Ketones Negative Normal Negative [facility] Comment on above: Performed By: #### U ACOM ####[facility] [address] [phone] Leukocyte Esterase Negative Normal Negative [facility] Comment on above: Performed By: #### U ACOM ####[facility] [address] [phone] Nitrites Negative Normal Negative [facility] Comment on above: Performed By: #### U ACOM ####[facility] [address] [phone] pH Test strip (U) 5.0 Normal 5.0-8.0 [facility] Comment on above: Performed By: #### U ACOM ####[facility] [address] [phone] Protein mass conc Negative Normal Neg.-Trace [facility] Comment on above: Performed By: #### U ACOM ####[facility] [place] [phone] Specific gravity 1.010 Normal 1.005-1.03 0 [facility] Comment on above: Performed By: #### U ACOM ####[facility] [place] [phone] Urobilinogen 0.2 mg/dl Normal Negative [facility] Comment on above: Performed By: #### U ACOM ####[facility] [place] Lyl[place], [place] [phone] Otheron 06-16-2011 CONVERTED CLINICAL HISTORY OPERATIVE PROCEDURE: I&D left foot ulcer, revision amputation left 1st Ray, possible application wound vac CLINICAL INFORMATION: Left foot ulcer, 1st metatarsal osteomyelitis [facility] CONVERTED ELECTRONIC SIGNATURE KAREN LEMUS M.D. (Electronic signature on file) Final Signed Out: 06/16/2011 15:58 [facility] CONVERTED FINAL DIAGNOSIS FINAL DIAGNOSIS: A) EXCISION OF LEFT FOOT TISSUE - SKIN AND SUBCUTANEOUS TISSUES WITH ULCERATION, ACUTE INFLAMMATION, AND ABSCESS FORMATION. B) BONE OF LEFT FOOT - ACUTE OSTEOMYELITIS. SPECIMEN: (A) FOOT (B) FOOT [facility] CONVERTED GROSS DESCRIPTION GROSS DESCRIPTION: A. left foot tissue Container labeled left foot. Received are portions of pelaez skin with attached soft tissue measuring 7 x 2 x 2 cm. On the surface is an ulcer measuring 1.5 cm in diameter. On cut section, the underlying soft tissue demonstrates diffuse areas of hemorrhage. Dance Hall Host/Hostess sample submitted in two cassettes labeled A. B. left foot bone Container labeled bone, left foot. Received is a segment of pelaez-pink bone measuring 3 x 3 x 2 cm. Dance Hall Host/Hostess sample submitted in two cassettes labeled B following decal. SMS:m MICROSCOPIC DESCRIPTION: Slides reviewed. EAC/gpl [facility] CONVERTED ORDERING PROVIDER Ordering Provider: KELLE SIM [facility] Vital Signs Date Time Vital Sign Value Performing Clinician Facility 11-11-2022 11:41-0400 Body temperature 98 [degF] HORTICULTURAL WORKER-C Jessica Alvarez NP Work Phone: [facility] 11-11-2022 11:41-0400 Diastolic blood pressure 78 mm[Hg] HORTICULTURAL WORKER-C Jessica Alvarez HORTICULTURAL WORKER Work Phone: [facility] 11-11-2022 11:41-0400 Heart rate 85 /min HORTICULTURAL WORKER-C Jessica Alvarez HORTICULTURAL WORKER Work Phone: [facility] 11-11-2022 11:41-0400 Respiratory rate 18 /min HORTICULTURAL WORKER-C Jessica Alvarez HORTICULTURAL WORKER Work Phone: [facility] 11-11-2022 11:41-0400 SaO2% (BldA) [Mass fraction] 97 % HORTICULTURAL WORKER-C Jessica Alvarez HORTICULTURAL WORKER Work Phone: [facility] 11-11-2022 11:41-0400 Systolic blood pressure 144 mm[Hg] HORTICULTURAL WORKER-C Jessica Alvarez HORTICULTURAL WORKER Work Phone: [facility] 11-11-2022 06:00-0400 Body mass index (BMI) [Ratio] 34 kg/m2 HORTICULTURAL WORKER-C Jessica Alvarez HORTICULTURAL WORKER Work Phone: [facility] 11-11-2022 06:00-0400 Body weight 120 kg HORTICULTURAL WORKER-C Jessica Alvarez HORTICULTURAL WORKER Work Phone: [facility] 11-08-2022 21:09-0400 Body height 187.96 cm HORTICULTURAL WORKER-C Jessica Alvarez HORTICULTURAL WORKER Work Phone: [facility] 11-08-2022 20:02-0400 Body temperature 98.6 [degF] [facility] 11-08-2022 20:02-0400 Diastolic blood pressure 86 mm[Hg] [facility] 11-08-2022 20:02-0400 Heart rate 78 /min [facility] [facility] 11-08-2022 20:02-0400 Respiratory rate 23 /min [facility] 11-08-2022 20:02-0400 SaO2% (BldA) [Mass fraction] 97 % [facility] 11-08-2022 20:02-0400 Systolic blood pressure 103 mm[Hg] [facility] 11-08-2022 16:55-0400 Body height 187.96 cm [facility] 11-08-2022 16:55-0400 Body mass index (BMI) [Ratio] 35.6 kg/m2 [facility] 11-08-2022 16:55-0400 Body weight 126.1 kg [facility] 11-08-2022 08:31-0400 Body height 187.96 cm [facility] 11-08-2022 08:31-0400 Body mass index (BMI) [Ratio] 35.2 kg/m2 [facility] 11-08-2022 08:31-0400 Body temperature 97.9 [degF] [facility] 11-08-2022 08:31-0400 Body weight 124.4 kg [facility] 11-08-2022 08:31-0400 Diastolic blood pressure 69 mm[Hg] [facility] 11-08-2022 08:31-0400 Heart rate 87 /min [facility] 11-08-2022 08:31-0400 Respiratory rate 14 /min [facility] 11-08-2022 08:31-0400 SaO2% (BldA) [Mass fraction] 97 % [facility] 11-08-2022 08:31-0400 Systolic blood pressure 140 mm[Hg] [facility] 10-03-2022 09:36-0400 Diastolic blood pressure 77 mm[Hg] [facility] 10-03-2022 09:36-0400 Heart rate 81 /min [facility] 10-03-2022 09:36-0400 Respiratory rate 14 /min [facility] 10-03-2022 09:36-0400 SaO2% (BldA) [Mass fraction] 98 % [facility] 10-03-2022 09:36-0400 Systolic blood pressure 149 mm[Hg] [facility] 10-03-2022 06:52-0400 Body height 187.96 cm [facility] 10-03-2022 06:52-0400 Body mass index (BMI) [Ratio] 35.6 kg/m2 [facility] 10-03-2022 06:52-0400 Body temperature 97.9 [degF] [facility] 10-03-2022 06:52-0400 Body weight 126 kg [facility] 04-30-2021 07:22-0500 Body temperature 97.52 [degF] MILAD SNOW MD [facility] 04-30-2021 07:22-0500 Diastolic blood pressure 88 mm[Hg] MILAD SNOW MD [facility] 04-30-2021 07:22-0500 Heart rate 72 /min MILAD SNOW MD [facility] 04-30-2021 07:22-0500 Respiratory rate 18 /min MILAD SNOW MD [facility] 04-30-2021 07:22-0500 Systolic blood pressure 132 mm[Hg] MILAD SNOW MD [facility] 03-01-2021 16:10-0500 Diastolic blood pressure 72 mm[Hg] CIERRA LEONIDES RESEARCH CONSULTANT-VICE CHANCELLOR [facility] 03-01-2021 16:10-0500 Heart rate 67 /min CIERRA ALTAMIRANOELY RESEARCH CONSULTANT-VICE CHANCELLOR [facility] 03-01-2021 16:10-0500 Respiratory rate 18 /min CIERRA LEONIDES RESEARCH CONSULTANT-VICE CHANCELLOR [facility] 03-01-2021 16:10-0500 Systolic blood pressure 141 mm[Hg] CIERRA ALTAMIRANOELY RESEARCH CONSULTANT-VICE CHANCELLOR [facility] 03-01-2021 10:51-0500 Heart rate 68 /min CIERRA LEONIDES RESEARCH CONSULTANT-VICE CHANCELLOR [facility] 03-01-2021 10:51-0500 Respiratory rate 18 /min CIERRA LEONIDES RESEARCH CONSULTANT-VICE CHANCELLOR [facility] 03-01-2021 08:50-0500 Body temperature 96.8 [degF] CIERRA LEONIDES RESEARCH CONSULTANT-VICE CHANCELLOR [facility] 03-01-2021 08:50-0500 Diastolic blood pressure 78 mm[Hg] CIERRA LEONIDES RESEARCH CONSULTANT-VICE CHANCELLOR [facility] 03-01-2021 08:50-0500 Heart rate 89 /min CIERRA LEONIDES RESEARCH CONSULTANT-VICE CHANCELLOR [facility] 03-01-2021 08:50-0500 Mean blood pressure 100 mm[Hg] CIERRA LEONIDES RESEARCH CONSULTANT-VICE CHANCELLOR [facility] 03-01-2021 08:50-0500 Respiratory rate 18 /min CIERRA LEONIDES RESEARCH CONSULTANT-VICE CHANCELLOR [facility] 03-01-2021 08:50-0500 Systolic blood pressure 144 mm[Hg] CIERRA LEONIDES RESEARCH CONSULTANT-VICE CHANCELLOR [facility] 03-01-2021 04:09-0500 Body temperature 96.8 [degF] CIERRA LEONIDES RESEARCH CONSULTANT-VICE CHANCELLOR [facility] 03-01-2021 04:09-0500 Diastolic blood pressure 61 mm[Hg] CIERRA COYLE RESEARCH CONSULTANT-VICE CHANCELLOR [facility] 03-01-2021 04:09-0500 Mean blood pressure 84 mm[Hg] CIERRA COYLE RESEARCH CONSULTANT-VICE CHANCELLOR [facility] 03-01-2021 04:09-0500 Reason For Taking VItal Signs CIERRA COYLE RESEARCH CONSULTANT-VICE CHANCELLOR [facility] 03-01-2021 04:09-0500 Systolic blood pressure 131 mm[Hg] CIERRA COYLE RESEARCH CONSULTANT-VICE CHANCELLOR [facility] 02-28-2021 23:55-0500 Body temperature 95.36 [degF] CIERRA COYLE RESEARCH CONSULTANT-VICE CHANCELLOR [facility] 02-28-2021 20:00-0500 Heart rate 81 /min CIERRA COYLE RESEARCH CONSULTANT-VICE CHANCELLOR [facility] 02-28-2021 20:00-0500 Mean blood pressure 105 mm[Hg] CIERRA COYLE RESEARCH CONSULTANT-VICE CHANCELLOR [facility] 02-28-2021 20:00-0500 Reason For Taking VItal Signs CIERRA COYLE RESEARCH CONSULTANT-VICE CHANCELLOR [facility] 02-28-2021 15:33-0500 Heart rate 78 /min CIERRA COYLE APRN-VICE CHANCELLOR [facility] 02-28-2021 15:33-0500 Reason For Taking VItal Signs CIERRA COYLE APRN-VICE CHANCELLOR [facility] 02-28-2021 11:37-0500 Heart rate 84 /min CIERRA COYLE APRN-VICE CHANCELLOR [facility] 02-27-2021 09:11-0500 SaO2% (BldA) [Mass fraction] 94 % CIERRA COYLE APRN-VICE CHANCELLOR [facility] 02-27-2021 00:40-0500 Body height 188 cm CIERRA COYLE APRN-VICE CHANCELLOR [facility] 02-27-2021 00:40-0500 Body weight 112 kg CIERRA COYLE APRN-VICE CHANCELLOR [facility] 02-27-2021 00:40-0500 Body weight 31.69 kg/m2 CIERRA COYLE RESEARCH CONSULTANT-VICE CHANCELLOR [facility] 02-01-2021 07:50-0400 Body temperature 97.7 [degF] Jesse Pack MD Work Phone: [facility] Work Phone: 02-01-2021 07:50-0400 Diastolic blood pressure 78 mm[Hg] Jesse Pack MD Work Phone: [facility] Work Phone: 02-01-2021 07:50-0400 Heart rate 62 /min Jesse Pack MD Work Phone: [employer] Work Phone: 02-01-2021 07:50-0400 Respiratory rate 18 /min Jesse Pack MD Work Phone: [employer] Work Phone: 02-01-2021 07:50-0400 SaO2% (BldA) [Mass fraction] 98 % Jesse Pack MD Work Phone: [employer] Work Phone: 02-01-2021 07:50-0400 Systolic blood pressure 128 mm[Hg] Jesse Pack MD Work Phone: [employer] Work Phone: 01-31-2021 19:54-0400 Body height 188 cm Jesse Pack MD Work Phone: [employer] Work Phone: 01-31-2021 19:54-0400 Body mass index (BMI) [Ratio] 34.15 kg/m2 Jesse Pack MD Work Phone: [employer] Work Phone: 01-31-2021 19:54-0400 Body weight 120.66 kg Jesse Pack MD Work Phone: [employer] Work Phone: 02-11-2020 20:55-0500 BMI (Body Mass Index) 35.95 kg/m2 [employer] [facility] [place], [place] 02-11-2020 20:55-0500 Body Temperature 98.6 [degF] [employer] [place] 02-11-2020 20:55-0500 Body weight 127.01 kg [employer] [place] , [place] 02-11-2020 20:55-0500 BP Diastolic 75 mm[Hg] [employer] [facility] [place] , [place] 02-11-2020 20:55-0500 BP Systolic 149 mm[Hg] [employer] [facility] [place] , [place] 02-11-2020 20:55-0500 Height 188 cm [employer] [facility] , [place] 02-11-2020 20:55-0500 Pulse (Heart Rate) 92 /min wendy Zendejas [facility], [place] 02-11-2020 20:55-0500 Pulse Oximetry 98 % [facility] , [place] 02-11-2020 20:55-0500 Respiratory Rate 18 /min Favian Zendejas [facility], [place] 01-06-2020 22:38-0400 BP Diastolic 73 mm[Hg] [place] [facility] , [place] 01-06-2020 22:38-0400 BP Systolic 142 mm[Hg] wendy Trevizo [facility] , [place] 01-06-2020 22:38-0400 Pulse (Heart Rate) 88 /min [facility]endy [facility]vizo [facility], [place] 01-06-2020 22:38-0400 Pulse Oximetry 100 % wendy Zendejas [facility] , [place] 01-06-2020 22:38-0400 Respiratory Rate 16 /min wendy Zendejas [facility], [place] 01-06-2020 19:16-0400 BMI (Body Mass Index) 35.95 kg/m2 wendy Zendejas [facility], [place] 01-06-2020 19:16-0400 Body Temperature 99.61 [degF] [facility] [place] 01-06-2020 19:16-0400 Body weight 127.01 kg wendy Trevizo [facility] , [place] 01-06-2020 19:16-0400 Height 188 cm wendy Trevizo [facility] , [place] 09-16-2019 14:51-0400 Body Temperature 98.2 [degF] [facility] [place] 09-16-2019 14:51-0400 BP Diastolic 55 mm[Hg] [facility] [place] 09-16-2019 14:51-0400 BP Systolic 108 mm[Hg] [facility] [place] 09-16-2019 14:51-0400 Pulse (Heart Rate) 66 /min [facility] [place] 09-16-2019 14:51-0400 Pulse Oximetry 94 % [facility] [place] 09-16-2019 14:51-0400 Respiratory Rate 20 /min [facility], [place] 09-12-2019 19:36-0400 BMI (Body Mass Index) 36.32 kg/m2 [facility] [place] 09-12-2019 19:36-0400 Body weight 128.32 kg [facility] , [place] 09-12-2019 15:03-0400 Height 188 cm [facility] , [place] 09-02-2019 22:00-0400 BP Diastolic 84 mm[Hg] [facility] , [place] 09-02-2019 22:00-0400 BP Systolic 159 mm[Hg] [facility] , [place] 09-02-2019 22:00-0400 Pulse (Heart Rate) 76 /min [facility], [place] 09-02-2019 22:00-0400 Pulse Oximetry 100 % [facility] , [place] 09-02-2019 22:00-0400 Respiratory Rate 18 /min [facility], [place] 09-02-2019 20:18-0400 Body Temperature 98.6 [degF] [facility] [place] 12-04-2018 15:08-0400 Body Temperature 98.71 [degF] Prane[facility], [place] 12-04-2018 15:08-0400 BP Diastolic 83 mm[Hg] Praneeth Rosa [facility] , [place] 12-04-2018 15:08-0400 BP Systolic 151 mm[Hg] Praneeth [facility] , [place] 12-04-2018 15:08-0400 Pulse (Heart Rate) 67 /min Praneeth [facility], [place] 12-04-2018 15:08-0400 Pulse Oximetry 98 % Praneeth [facility] , [place] 12-04-2018 15:08-0400 Respiratory Rate 22 /min Pr[facility], [place] 12-02-2018 03:49-0400 BMI (Body Mass Index) 38.45 kg/m2 Praneeth Rosa [facility], [place] 12-02-2018 03:49-0400 Body weight 135.85 kg Praneeth Rosa [facility] , [place] 11-30-2018 10:130400 Height 188 cm Praneeth Rosa [place], [place] Encounters Encounter Date Encounter Type Care Provider Facility Start: 05-15-2024 End: 05-15-2024 Emergency department patient visit Jessica Alvarez HORTICULTURAL WORKER Facility:[facility] Start: 11-08-2023 ambulatory Mark Anthony Thomas Facility: [facility] Start: 11-08-2023 End: 11-12-2023 Evaluation and management of inpatient Jessica Alvarez HORTICULTURAL WORKER Facility:[facility] Start: 12-28-2022 End: 12-28-2022 ambulatory HORTICULTURAL WORKER-C Jessica Alvarez HORTICULTURAL WORKER Work Phone: [facility] Work Phone: Start: 12-28-2022 End: 12-28-2022 Patient encounter procedure HORTICULTURAL WORKER-C Jessica Alvarez HORTICULTURAL WORKER Work Phone: [facility]-Outpatient Bone Densitometry Work Phone: Start: 11-11-2022 Non-patient / Non-visit HORTICULTURAL WORKER-C Cesar Alvarez HORTICULTURAL WORKER Work Phone: [facility] Work Phone: Start: 11-10-2022 Non-patient / Non-visit HORTICULTURAL WORKER-C Cesar Alvarez HORTICULTURAL WORKER Work Phone: [facility] Work Phone: Start: 11-09-2022 Non-patient / Non-visit HORTICULTURAL WORKER-C Cesar Alvarez HORTICULTURAL WORKER Work Phone: [facility] Work Phone: Start: 11-08-2022 End: 11-11-2022 Evaluation and management of inpatient [facility]-Progressive Care Unit Work Phone: Start: 11-08-2022 End: 11-11-2022 observation encounter HORTICULTURAL WORKER-C eJssica Alvarez HORTICULTURAL WORKER Work Phone: [facility] Work Phone: Start: 11-08-2022 End: 11-08-2022 Emergency department patient visit [facility]Emer[facility] Work Phone: Start: 10-03-2022 End: 10-03-2022 Emergency department patient visit [facility] Work Phone: Start: 02-14-2022 End: 02-14-2022 AMB External Visit DANAY CASTILLO MD [facility] Start: 04-30-2021 End: 04-30-2021 Emergency department patient visit MILAD SNOW MD [facility] Start: 02-26-2021 End: 03-01-2021 Evaluation and management of inpatient CIERRA COYLE RESEARCH CONSULTANT-VICE CHANCELLOR [facility] Start: 02-16-2021 Patient encounter procedure [facility] Department Start: 01-30-2021 End: 02-01-2021 Emergency department patient visit Jesse Pack MD Work Phone: [facility] [phone] [employer] Comment on above: Lightheadedness (Nelida adela Dx) Start: 01-03-2021 End: 01-03-2021 Subsequent hospital visit by physician Favian Tre[facility]izo MD PhD [facility] Start: 02-11-2020 End: 02-11-2020 Emergency department patient visit Favian Trevizo [facility] Comment on above: Closed head injury, initial encounter (Primary Dx); Fall, initial encounter; Lumbar strain, initial encounter Start: 01-06-2020 End: 01-06-2020 Emergency department patient visit Favian Trevizo [facility] Comment on above: Subjective fever (Pr imary Dx) Start: 09-12-2019 End: 09-16-2019 Emergency department patient visit Mojgan Ivy Work Phone: [facility] [employer] Comment on above: Acute cystitis with hematuria (Primary Dx); Dehydration; Generalized weakness Start: 09-02-2019 End: 09-02-2019 Emergency department patient visit Tyler Bermudez Work Phone: [facility] Comment on above: Injury of head, init ial encounter (Primary Dx) Start: 11-30-2018 End: 12-04-2018 Evaluation and management of inpatient Praneeth Rosa Work Phone: [facility] Comment on above: Pneumonia due to org anism (Primary Dx); Non-intractable vomiting with nausea, unspecified vomiting type; General weakness; Elevated lactic acid level Start: 10-31-2017 End: 11-01-2017 Patient encounter [facility] Start: 10-24-2017 End: 10-25-2017 Patient encounter [facility] Start: 10-17-2017 End: 10-18-2017 Patient encounter [facility] Start: 10-09-2017 End: 10-10-2017 Patient encounter ROSA Patrick TERRELL [facility] Start: 10-02-2017 End: 10-03-2017 Patient encounter [facility] Start: 09-25-2017 End: 09-25-2017 Evaluation and management of inpatient KELVIN ALMANZAR [facility] Start: 06-10-2011 End: 06-10-2011 Patient encounter procedure Kelle Sim Work Phone: [facility] Start: 06-10-2011 Results Only Kelle Sim Work Phone: [facility] Procedures Date Procedure Procedure Detail Performing Clinician Start: 12-28-2022 Dual energy X-ray absorptiometry HORTICULTURAL WORKER-C Jessica Alvarez HORTICULTURAL WORKER Work Phone: Start: 11-10-2022 US scan of gallbladder HORTICULTURAL WORKER-C Jessica sahni HORTICULTURAL WORKER Work Phone: Start: 11-09-2022 Plain chest X-ray HORTICULTURAL WORKER-C Jessica Diez P Work Phone: Start: 11-08-2022 Plain chest X-ray Start: 11-08-2022 Coronavirus COVID-19 PCR HORTICULTURAL WORKER-C Jessica burrd HORTICULTURAL WORKER Work Phone: Start: 10-03-2022 X-ray of chest [...] REFLEX TO MG FOR LOW K Shea [employer] Work Phone: Start: 09-14-2019 Blood count complete automated Shea [employer] Work Phone: Start: 09-13-2019 Gluc bld gluc mntr dev cleared fda spec home use Mojgan Fishhta Work Phone: Start: 09-13-2019 Gluc bld gluc mntr dev cleared fda spec home use [employer] Work Phone: Start: 09-13-2019 Gluc bld gluc mntr dev cleared fda spec home use [employer] Work Phone: Start: 09-13-2019 Gluc bld gluc mntr dev cleared fda spec home use Mojgan Fishhta Work Phone: Start: 09-13-2019 Assay of magnesium [employer] Work Phone: Start: 09-13-2019 BASIC METABOLIC PANEL W/ REFLEX TO MG FOR LOW K Shea Wil[employer] Work Phone: Start: 09-13-2019 Blood count complete automated [employer] Work Phone: Start: 09-12-2019 Gluc bld gluc mntr dev cleared fda spec home use Mojgan Ivy Work Phone: Start: 09-12-2019 Culture bacterial quanttative colony count urine [employer] Work Phone: Start: 09-12-2019 Urnls dip stick/tablet rgnt auto w/o microscopy [employer] Work Phone: Start: 09-12-2019 COVID-19 [employer] Work Phone: Start: 09-12-2019 Assay of troponin [...] mntr dev cleared fda spec home use [employer] Work Phone: Start: 12-04-2018 Gluc bld gluc mntr dev cleared fda spec home use [employer] Work Phone: Start: 12-04-2018 Blood count complete automated Shea Aguilar Work Phone: Start: 12-04-2018 Comprehensive metabolic panel [employer] Work Phone: Start: 12-03-2018 Gluc bld gluc mntr dev cleared fda spec home use [employer] Work Phone: Start: 12-03-2018 Gluc bld gluc mntr dev cleared fda spec home use [employer] Work Phone: Start: 12-03-2018 Gluc bld gluc [...] Start: 12-03-2018 Blood count complete automated Shea Wilkinsevocatalrohit Work Phone: Start: 12-02-2018 Gluc bld gluc [...] TO MG FOR LOW K Man Hardin [employer] Phone: Start: 12-01-2018 Blood count complete auto&auto difrntl wbc Man Hardin Work Phone: Start: 12-01-2018 Hemoglobin glycosylated a1c Man Hardin Work Phone: Start: 11-30-2018 Iaad ia mult step method nos each organism Man [employer] Work Phone: Start: 11-30-2018 STREP PNEUMONIAE ANTIGEN Man Hardin Work Phone: Start: 11-30-2018 Assay of lactate Man [employer] Work Phone: Start: 11-30-2018 Procalcitonin (pct) Man Hardin Work Phone: Start: 11-30-2018 ADD ON LAB TEST Man Hardin Work Phone: Start: 11-30-2018 Radex abd compl aqt abd w/s/e/d views 1 view ch Man Hardin Work Phone: Start: 11-30-2018 Iadna respiratry probe & rev trnscr 12-25 target Man Hardin Work Phone: Start: 11-30-2018 Assay of lactate Man Hardin [employer] Phone: Start: 11-30-2018 End: 11-30-2018 Culture bacterial blood aerobic w/id isolates Nurys Mukherjee [employer] Phone: Start: 11-30-2018 ADD ON LAB TEST Nurys Mukherjee [employer] Phone: Start: 11-30-2018 Assay of lactate Nurys Mukherjee [employer] Phone: Start: 11-30-2018 Assay of lipase Nurys Mukherjee Work Phone: Start: 11-30-2018 Assay of troponin quantitative Nurys Mukherjee [employer] Phone: Start: 11-30-2018 Basic metabolic panel calcium [...] Work Phone: None (qualifier value) DENY COYLE RESEARCH CONSULTANT-VICE CHANCELLOR Plan of Treatment Date Care Activity Detail Author Start: 09-01-2029 DTaP/Tdap/Td vaccine (4 - Td or Tdap) DTaP/Tdap/Td vaccine (4 - Td or Tdap) [facility] Work Phone: Start: 09-01-2029 DTaP/Tdap/Td vaccine (4 - Td) DTaP/Tdap/Td vaccine (4 - Td) [place], [place] Start: 01-18-2028 DTaP/Tdap/Td vaccine (3 - Td) DTaP/Tdap/Td vaccine (3 - Td) [place], [place] Start: 11-20-2026 Colon cancer screen colonoscopy Colon cancer screen colonoscopy [place], [place] Start: 11-20-2026 Screening for malignant neoplasm of colon Colon cancer screen colonoscopy [place], [place] Start: 11-17-2022 Blood chemistry [facility] Start: 11-16-2022 Blood chemistry [facility] Start: 11-15-2022 Blood chemistry [facility] Start: 11-14-2022 Blood chemistry [facility] Start: 11-13-2022 Blood chemistry [facility] Start: 11-12-2022 Blood chemistry [facility] Start: 11-11-2022 Patient discharge [facility] Start: 11-08-2022 Aspiration precautions [facility] Start: 11-08-2022 Assessment of risk of venous thromboembolism [facility] Start: 11-08-2022 Care regimes management [facility] Start: 11-08-2022 Fall prevention [facility] Start: 11-08-2022 Inhalation therapy procedure [facility] Start: 11-08-2022 Insertion of catheter into peripheral vein [facility] Start: 11-08-2022 Introduction of urinary catheter [facility] Start: 11-08-2022 Measuring intake and output [facility] Start: 11-08-2022 Notification of physician [facility] Start: 11-08-2022 Providing care according to standard [facility] Start: 11-08-2022 Provision of activity privileges [facility] Start: 11-08-2022 Referral to occupational therapist [facility] Start: 11-08-2022 Referral to service [facility] Start: 11-08-2022 Verification routine [facility] Start: 11-08-2022 End: 11-08-2022 [facility] Start: 11-08-2022 Admission procedure [facility] Start: 11-08-2022 Coronavirus COVID-19 PCR Coronavirus COVID-19 PCR [facility] Start: 11-08-2022 Emergency department visit high/urgent severity EMERGENCY DEPT VISIT MOD MDM [facility] Start: 11-08-2022 Ther proph/dx njx iv push single/1st sbst/drug THER/PROPH/DIAG INJ IV PUSH [facility] Start: 11-08-2022 Troponin I measurement [facility] Start: 10-03-2022 [facility] Start: 10-03-2022 Incentive spirometry [facility] Start: 02-01-2022 Creatinine measurement Creatinine [...] procedure 06/13/2021 Office Visit Dermatology Kelle Nolasco RESEARCH CONSULTANT - VICE CHANCELLOR [facility] [address] [place], [place] [address] D[facility] Start: 05-12-2021 Diabetic retinal exam Diabetic retinal exam [facility] Work Phone: Start: 05-12-2021 End: 05-12-2021 Patient encounter procedure 05/12/2021 Office Visit Ophthalmology Judy Reyes MD [address] [place] [address] [address] [place] [address] [phone] [facility] Start: 02-16-2021 End: 02-16-2021 Patient encounter procedure 02/16/2021 Office Visit Neurology Brandy Mckinley, RESEARCH CONSULTANT - VICE CHANCELLOR [address] [facility] [address] [place] [address] [phone] [facility] Start: 02-11-2021 End: 02-11-2021 Patient encounter procedure 02/11/2021 Office Visit Family Medicine Favian Trevizo MD PhD [address] [place] [address] [phone] [facility] Start: 02-09-2021 End: 02-09-2021 Patient encounter procedure 02/09/2021 Office Visit Orthopedic Surgery Ebony Nguyen DPM [address] [place] [address] [phone] [facility] Start: 01-20-2021 End: 01-20-2021 Nursing evaluation of patient and report 01/20/2021 Nurse Only Family Medicine [facility] Start: 01-19-2021 End: 01-19-2021 Patient encounter procedure 01/19/2021 Office Visit Otolaryngology Asif Negron MD [address] [place] [address] [phone] [facility] Start: 01-12-2021 End: 01-12-2021 Patient encounter procedure 01/12/2021 Office Visit Orthopedic Surgery Ebony Nguyen DPM [address] [place] [address] [facility] Start: 01-11-2021 End: 01-11-2021 Patient encounter procedure 01/11/2021 Appointment Neurology Geo Ruvalcaba MD [address] [place] [address] [phone] [facility] Start: 01-07-2021 End: 01-07-2021 Patient encounter procedure 01/07/2021 Office Visit Neurology Brandy Mckinley APRN - VICE CHANCELLOR [address] [place] [address] [facility] Start: 12-01-2020 Influenza vaccination Flu vaccine (#1) [facility] Work Phone: Start: 10-19-2020 HbA1c (Bld) [Mass fraction] A1C test (Diabetic or Prediabetic) [place], [place] Start: 10-19-2020 Lipid panel Lipid screen [place] Start: 09-15-2020 Creatinine measurement Creatinine monitoring [place], [place] Start: 09-15-2020 Potassium monitoring Potassium monitoring [place], [place] Start: 05-12-2020 End: 05-12-2020 Office Visit 05/12/2020 Office Visit Ophthalmology Judy Reyes MD [address] [place] [address] [phone] [facility] Start: 05-07-2020 Diabetic retinal exam Diabetic retinal exam [place], [place] Start: 04-07-2020 End: 04-07-2020 Office Visit 04/07/2020 Office Visit Family Medicine Favian Trevizo MD PhD [address] [place] [address] [phone] [facility] Start: 03-13-2020 Diabetic foot examination Diabetic foot exam [place] Start: 03-13-2020 HbA1c (Bld) [Mass fraction] A1C test (Diabetic or Prediabetic) [place] Start: 01-20-2020 End: 01-20-2020 Office Visit 01/20/2020 Office Visit Family Medicine Favian Trevizo MD PhD [address] [place] [address] [phone] [facility] Start: 01-10-2020 Annual Wellness Visit (AWV) Annual Wellness Visit (AWV) [place] Start: 12-05-2019 Creatinine measurement Creatinine monitoring [facility], [place] Start: 12-05-2019 Creatinine monitoring Creatinine monitoring [place] Start: 12-05-2019 Potassium monitoring Pot[place] Start: 12-02-2019 A1C test (Diabetic or Prediabetic) A1C test (Diabetic or Prediabetic) [place] Start: 12-02-2019 Influenza vaccination Flu vaccine (#1) [place] Start: 10-20-2019 End: 10-20-2019 Office Visit 10/20/2019 Office Visit Family Medicine Favian Trevizo MD PhD [address] [place] [address] [phone] [facility] Start: 09-25-2019 End: 09-25-2019 Office Visit 09/25/2019 Office Visit Family Medicine Favian Trevizo MD PhD [address] [place] [address] [phone] [facility] Start: 09-18-2019 End: 09-18-2019 Office Visit 09/18/2019 Office Visit Family Favian Aiken MD PhD [address] [place] [address] [phone] [facility] Start: 05-23-2019 Diabetic retinal exam Diabetic retinal exam [place] Start: 05-07-2019 End: 05-07-2019 Office Visit 05/07/2019 Office Visit Ophthalmology AwJudy rene MD [address] [place] [address] [phone] [facility] Start: 02-14-2019 [object Object] Diabetic foot exam [place] Start: 01-31-2019 Influenza vaccination Flu vaccine (#1) [place] Comment on above: Postponed from 12/01/2018 (Patient Refus ed) Start: 01-09-2019 End: 01-09-2019 Office Visit 01/09/2019 Office Visit Family Favian Aiken MD PhD [address] [place] [address] [phone] [facility] Start: 10-16-2018 Diabetic microalbuminuria test Diabetic microalbuminuria test [place] Start: 10-16-2018 Lipid panel Lipid [place] Start: 10-16-2018 Lipid screen [place]id [place] Start: 09-17-2018 Annual Wellness Visit (AWV) Annual Wellness Visit (AWV) [place] Start: 2012 Annual Wellness Visit (AWV) Annual Wellness Visit (AWV) [place] Start: 09-06-1999 Shingles Vaccine (1 of 2) Shingles Vaccine (1 of 2) [place], [place] Start: 1950 Hepatitis C screen Hepatitis C screen [place], [place] Start: 1950 Hepatitis C screening Hepatitis C screen [place] End: 11-30-2018 Bacteria identified Respiratory culture Nom (Sput) Sputum culture Microbiology Routine One Time for 1 Occurrences starting 11/30/2018 until 11/30/2018 [place] Comment on above: One Time for 1 Occurrences starting 11/02 until 11/30/2018 End: 09-17-2019 Basic Metabolic Panel w/ Reflex to MG Basic Metabolic Panel w/ Reflex to MG Lab Routine Daily for 5 Occurrences starting 09/13/2019 until 09/17/2019, 4 completed [place] Comment on above: Daily for 5 Occurrences starting 020 until 09/17/2019, 4 completed Basic Metabolic Pane l w/ Reflex to MG Basic Metabolic Panel w/ Reflex to MG Lab Routine Daily until discontinued starting 02/01/2021, 1 completed [employer] Work Phone: Comment on above: Daily until discontinued starting 2020, 1 completed End: 09-17-2019 CBC CBC Lab Routine Daily for 5 Occurrences starting 09/13/2019 until 09/17/2019, 4 completed [place] Comment on above: Daily for 5 Occurrences starting 020 until 09/17/2019, 4 completed CBC W Auto Different ial panel - Blood CBC Auto Differential Lab Routine Daily until discontinued starting 02/01/2021, 1 completed [employer] Work Phone: Comment on above: Daily until discontinued starting 2020, 1 completed End: 01-06-2020 COVID-19 COVID-19 Lab Routine One Time for 1 Occurrences starting 01/06/2020 until 01/06/2020 [place] Comment on above: One Time for 1 Occurrences starting 09/2019 until 01/06/2020 COVID-19 COVID-19 Lab STA T 01/06/2020 8:13 PM EDT [place] Culture Blood #1 Culture Blood # 1 Microbiology STAT 11/30/2018 12:25 PM EDT [place] Culture Blood #2 Culture Blood # 2 Microbiology STAT 11/30/2018 12:55 PM EDT [place] End: 09-14-2019 Free T4 [Mass/Vol] T4, Free Lab Add-On One Time for 1 Occurrences starting 09/14/2019 until 09/14/2019 [place] Comment on above: One Time for 1 Occurrences starting 08/31 until 09/14/2019 End: 01-30-2021 Glucose [Mass/volume] in Serum or Plasma POCT Glucose Point of Care Testing STAT One Time for 1 Occurrences starting 01/30/2021 until 01/30/2021 [employer] Work Phone: Comment on above: One Time for 1 Occurrences starting 01/02 until 01/30/2021 HHN Treatment HHN Treatment Respiratory Care Routine Every 4hr while awake until discontinued starting 11/30/2018 [place] Comment on above: Every 4hr while awake until discontinued starting 11/30/2018 End: 12-04-2018 Home O2 eval (desaturation screen) Home O2 eval (desaturation screen) Respiratory Care Routine One Time for 1 Occurrences starting 12/04/2018 until 12/04/2018 [place] Comment on above: One Time for 1 Occurrences starting 07/2018 until 12/04/2018 Incentive spirometry RT Incentiv e spirometry RT Respiratory Care Routine Every 2hr while awake until discontinued starting 11/30/2018 [place] Comment on above: Every 2hr while awake until discontinued starting 11/30/2018 Initiate Oxygen Ther apy Protocol [place] Comment on above: Daily until discontinued starting 2018 Daily until disconti nued starting 09/12/2019 End: 11-30-2018 Microscopic observation Gram stain Nom (Unsp spec) Gram Stain Microbiology Routine Once for 1 Occurrences starting 11/30/2018 until 11/30/2018 [place] Comment on above: Once for 1 Occurrences starting 12/01/19 19 until 11/30/2018 End: 09-12-2019 Miscellaneous Sendout 1 Miscellaneous Sendout 1 Lab Routine One Time for 1 Occurrences starting 09/12/2019 until 09/12/2019 [place] Comment on above: One Time for 1 Occurrences starting 08/31 until 09/12/2019 Oxygen therapy [[facility] Data Set] [employer] Work Phone: Comment on above: Daily until discontinued starting 2020 Daily until disconti nued starting 01/31/2021 Patient Education [facility] Work Phone: Patient referral [facility] Work Phone: POCT glucose [place] Comment on above: 4X Daily (AC & HS) until discontinued st arting 12/01/2018 As Needed until disc ontinued starting 12/01/2018 As Needed until disc ontinued starting 09/12/2019 Respiratory pathogen s DNA and RNA panel - Respiratory specimen by LILLIAN with probe detection [facility] End: 11-30-2018 Sputum induction Sputum induction Respiratory Care Routine One Time for 1 Occurrences starting 11/30/2018 until 11/30/2018 [place] Comment on above: One Time for 1 Occurrences starting 11/02 until 11/30/2018 Immunizations Immunization Date Immunization Notes Care Provider Kay polo 10-03-2022 tetanus toxoid, redu agustina diphtheria toxoid, and acellular pertussis vaccine, adsorbed [facility] 04-07-2020 Influenza, High-dose , Quadv, 65 yrs +, IM (Fluzone) Favian Trevizo MD PhD Work Phone: [facility] Work Phone: 09-02-2019 diphtheria, tetanus toxoids and acellular pertussis vaccine, unspecified formulation [facility] [place] 09-02-2019 tetanus toxoid, redu agustina diphtheria toxoid, and acellular pertussis vaccine, adsorbed [facility], [place] 01-09-2019 influenza, high dose seasonal, preservative-free Tyler [facility], [place] 01-17-2018 tetanus toxoid, redu agustina diphtheria toxoid, and acellular pertussis vaccine, adsorbed [facility], [place] 10-16-2017 pneumococcal polysaccharide vaccine, 23 valent [facility] 08-10-2016 pneumococcal conjuga te vaccine, 13 valent [facility] 07-22-2012 pneumococcal polysaccharide vaccine, 23 valent [facility] 05-27-2007 tetanus toxoid, redu agustina diphtheria toxoid, and acellular pertussis vaccine, adsorbed [facility] 08-31-1992 Td, unspecified formulation [facility] Payers Date Payer Category Payer Unknown [id number] 2023 Medicare [id number] 2023 Self-pay 2023 Unknown [id number] 2023 Unknown [id number] 2020 Medicare AETNA MEDICARE A ETNA MEDICARE ADVANTAGE O [id number] 2020-Present [address] [place] [address] Medicare [id number] 2020 Medicare AETNA MEDICARE A ETNA MEDICARE ASSURE HMO D SNP [id number] 2020-Present [phone] [address] [place] [address] Medicare [id number] 2016 Medicare [id number] 2016 Medicare BCBS MEDICARE AN THEM MEDIBLUE ESSENTIAL/PLUS xxxxxxxxxxxx 2016-Present [address] [address] [place] [address] xxxxxxxxxxxx [id number] 2013 Medicaid MEDICAID [facility] MEDICAID [id number] 2013-Present [phone] [address] [place] [address] Medicaid [id number] 2005 Unknown [facility] 6 [facility] [id number] 2005-2014 O [id number] Unknown [id number] Unknown [id number] Unknown [id number] Unknown [id number] Unknown [id number] Unknown [id number] Unknown [id number] Social History Date Type Detail Facility Start: 12-03-2018 End: 02-14-2021 Tobacco smoking status NHIS Former smoker [facility] End: 04-02-1982 History of tobacco use [place] End: 04-02-1982 History of tobacco use Cigarette [place] Start: 12-03-2018 End: 01-31-2021 Cigarettes smoked current (pack per day[facility] Start: 12-03-2018 Alcohol intake [facility] Start: 06-14-2018 History SDOH Food Worry 1 [facility] Start: 11-20-2016 Tobacco Comment quit 34 years ago [facility] Start: 08-17-2015 Alcohol Comment no alcohol in 3 year s [facility] Start: 1950 Sex Assigned At [facility] Start: 09-02-2019 End: 01-31-2021 Alcohol intake Current non-drinker of alcohol (finding) [place] Exposure to SARS-CoV -2 (event) Unable to assess [facility] Start: 12-17-2019 End: 01-31-2021 Tobacco use and exposure Never used Cristiana [facility] Exposure to SARS-CoV -2 (event) Not sure [facility] Start: 02-11-2020 Alcohol Comment no alcohol in 8 year s [facility] Start: 09-30-2020 Tobacco Comment quit 37 years ago [facility] Work Phone: Start: 02-14-2021 Alcohol intake Ex-drinker (finding) [facility] Start: 1950 Sex Assigned At Male A [facility] Tobacco smoking status No Smokin g Status Entered [facility] Start: 10-03-2022 End: 11-08-2022 Tobacco smoking status NHIS Unknown if ever smoked [facility] Medical Equipment Procedure Code Equipment Code Equipment Origin al Text Equipment Identifier Dates USE DIRECTED TO TEST BLOOD SUGAR 3 TIMES DAILY [id number] Start: 08-20-2018 1 each by In Vit ro route 3 times daily As needed. [id number] Start: 08-20-2018 1 each by In Vit ro route 3 times daily As needed. [id number] Start: 01-09-2019 TEST BLOOD SUGAR 3 TIMES DAILY [id number] Start: 09-09-2019 TEST BLOOD SUGAR 3 TIMES A DAY. [id number] Start: 07-08-2021 1 each by In Vit ro route 3 times daily As needed. [id number] Start: 10-28-2020 Goals Date Patient Goal Desired Activity /State Functional Status Date Assessment Result Facility 11-11-2022 Functional status Ambulates [facility] Work Phone: Mental Status Date Assessment Result Facility 11-11-2022 Cognitive function Voice/Name [facility] Work Phone: 11-08-2022 Cognitive function Voice/Name [facility] Work Phone: 11-08-2022 Cognitive function Level Of Cons ciousness Awake;Alert;Appropriate [facility] Work Phone: 10-03-2022 Cognitive function Level Of Cons ciousness Awake;Alert [facility] Work Phone: Clinical Notes 10-07-2020 to 11-12-2023 Note Date & Type Note Facility 11-12-2023 Note [facility] Medical Records Department [address] [place] [address] Discharge Summary 11/12/23 1343 MR#: [id number] Acct: [id number] Name: SHOLA MARTINEZ Demarco Rep #: [id number] : 1950 73 From: Deniz Cooper DO PCP: TARI Edwards Status:ADM IN [facility] Providers Date of Admission: 11/08/23 Date of [...] is a 73-year-old male who presented to [facility] ED on 11/08/2023 with fevers and nausea/vomiting. Hospital course as noted below. Patient discharged to SNF at [facility] in stable condition on 11/11. 1. Acute [...] and no apparent (more content not included)... [facility] 11-11-2022 Discharge summary Note Date/Time November 11, 2022 11:48am [facility] Medical Records Department [address] [place] [address] Discharge Summary 11/11/22 1147 MR#: [id number] Acct: [id number] Name: SHOLA MARTINEZ Demarco Rep #:[id number] : 1950 72 From: Tanika Kunz MD PCP: Jessica Alvarez HORTICULTURAL WORKERYanique Status: ADM [facility] Location: [place] [address] Providers Date of Admission: 11/08/22 Date of [...] (Auto) 69.9, Lymph % (Auto) 18.4 L, [place] % (Auto) 9.8, Eos % (Auto) 1.3, [...] Tanika Kunz Primary Care Provider: Jessica Alvarez HORTICULTURAL WORKER Consulting Providers: Bridgett Villagomez Instructions Patient Instructions: [...] Referrals / Follow Up: Jessica Alvarez NP, HORTICULTURAL WORKER-C [Primary Care Provider] - Within 2 Weeks Disposition Disposition (needs filled in before D/C Order can be placed): Assisted Living Charges/Coding Visit Charges Inpatient E&M: 61492 Disch Hosp >30min 11/11/22 1432 <Electronically signed by Tanika Kunz MD> Cosigner Signature (if applicable): CC: HORTICULTURAL WORKER-C Jessica Alvarez; Dr. Tanika Kunz MD~ Signed [facility] Work Phone: 1(438) 633-329908-12-2023 Discharge summary Author Tanika [facility] November 11, 2022 11:47am Note Date/Time November 11, 2022 11 :48am [facility] Medical Records Department [address] [place] [address] Instructions for Home/Discharge Instructions 11/11/22 1147 MR#: [id number] Acct: [id number] Name: SHOLA MARTINEZ Rep #:[id number] : [...] Referrals / Follow Up: Jessica Alvarez NP, HORTICULTURAL WORKER-C [Primary Care Provider] - Within 2 Weeks Disposition Disposition (needs filled in before D/C Order can be placed): Assisted Living 11/11/22 1147<Electronically signed by Tanika Kunz MD>Tanika Kunz MD CC: HORTICULTURAL WORKER-C Jessica Alvarez; Dr. Bridgett Villagomez MD ~ Signed [facility] Work Phone: 1(346) 218-141408-11-2023 Progress note Author [facility] November 10, 2022 1:35pm Note Date/Time November 10, 2022 11 :24[facility] Medical Records Department [address] [place] [address] Progress Note 11/10/22 1123 MR#: [id number] Acct: [id number] Name: SHOLA MARTINEZ Demarco Rep #:[id number] : 1950 72 From: Tanika Kunz MD PCP: TARI Edwards Status: ADM MEL Location: [place] [address] Subjective Subjective Patient seen and examined. He [...] % (Auto) 63.7, Lymph % (Auto) 24.0, Oxford % (Auto) 8.7, Eos % (Auto) 2.6, [...] with placement. Charges/Coding Visit Charges Inpatient E&M: 23541 Subs Hosp L2 11/10/22 1335 <Electronically signed by Tanika Kunz MD> Tanika Kunz MD Cosigner Signature (if applicable): CC: ~ Signed [facility] Work Phone: 1(217) 936-664108-10-2023 Progress note Author Tanika [facility] November 09, 2022 3:31pm Note Date/Time November 09, 2022 12 :12pm [facility] Medical Records Department [facility] [place] [address] Progress Note 11/09/22 1210 MR#: [id number] Acct: [id number] Name: SHOLA MARTINEZ Rep #:[id number] : 1950 72 From: Tanika Kunz MD PCP: Jessica Alvarez, HORTICULTURAL WORKER-C Status: ADM MEL Location: [place] [address] Subjective Subjective Patient seen and examined. He [...] 71.7 H, Lymph % (Auto) 17.7 L, Oxford % (Auto) 8.1, Eos % (Auto) 1.3, [...] normal limits. Etiology is unclear. Will get [facility] upper quadrant ultrasound to evaluate. #Thrombocytopenia: Platelets were 107 on admission and now down to 101. Again etiology is not very clear. WBC and CBC are within normal limits. Will monitor. DVT prophylaxis: Lovenox Charges/Coding Visit Charges Inpatient E&M: 63559 Subs Hosp L2 11/09/22 1531 <Electronically signed by Tanika Kunz MD> Tanika Kunz MD Cosigner Signature (if applicable): CC: ~ Signed [facility] Work Phone: 1(390) 605-138908-09-2023 Discharge summary Author Yifan Meza [facility] November 08, 2022 9:06pm Note Date/Time November 08, 2022 5:3 3pm [facility] Medical Records Department [address] [place] [address] Emergency Department Summary 11/08/22 MR#: [id number] Acct: [id number] Name: JUANSHOLA P Rep #:[id number] : 1950 72 From: Yifan Meza DO PCP: Jessica Alvarez HORTICULTURAL WORKER-C Status: ADM MEL Location: [place] [address] HPI History of Present Illness Chief Complaint: [...] He denies abdominal pain. No urinary complaints. [facility] Medical History (Updated 11/08/22 @ 20:33 [...] Discharge Plan Disposition Disposition: Acute Care Hospital [facility] Discharge Date/Time: 11/08/22 20:33 What to do if you have Problems For any increased pain, shortness of breath, bleeding, nausea or vomiting, chestpain, or any unexpected problems, contact your Primary Care Provider. Call [facility] ([phone]) or report to the closest Emergency Room. Call 911 if necessary. 11/08/222105 <Electronically signed by Yifan Meza DO> Cosigner Signature (if applicable): CC: TARI Alvarez ~ Signed [facility] Work Phone: 1(348) 301-993808-09-2023 History and physical note Author Bridgett Villagomez [facility] November 08, 2022 8:37pm Note Date/Time November 08, 2022 7:4 6pm [facility] Medical Records Department [address] [place] [address] H&P Exam - Hospitalist 11/08/221943 MR#: [id number] Acct: [id number] Name: SHOLA MARTINEZ Rep #:[id number] : 1950 72 From: Bridgett Villagomez MD PCP: Jessica Alvarez, HORTICULTURAL WORKER-C Status: ADM MEL Location: [place] [address] HPI - General General Date of Admission: [...] as Zofran 4 mg p.o. x 1. [facility] Medical History (Updated 11/08/22 @ 20:33 by [...] unclear chronicity: Admission platelet earlier in the [id number], no comparison available, potentially related to acute [...] facility paperwork. Charges/Coding Visit Charges Inpatient E&M: 38168 Init Hosp L2 11/08/222036 <Electronically signed by Bridgett Villagomez MD> Cosigner Signature (if applicable): CC: HORTICULTURAL WORKER-C Jessica Alvarez; Dr. Bridgett Villagomez MD~ Signed [facility] Work Phone: 1(156) 129-563508-09-2023 Discharge summary Author Jann Hoffmann [facility] November 08, 2022 10:56am Note Date/Time November 08, 2022 8:4 6am [facility] Medical Records Department [address] [place] [address] Emergency Department Summary 11/08/22 MR#: [id number] Acct: [id number] Name: SHOLA MARTINEZ Rep #:[id number] : [...] chest pain or difficulty breathing. No headaches. [facility] Medical History (Updated 11/08/22 @ 10:55 [...] 88.3 H Lymph % (Auto) 5.4 L Oxford % (Auto) 4.8 Eos % (Auto) 0.8 [...] Clarity Clear Urine pH 5.0 Ur Specific [place] 1.020 Urine Protein 15 H Urine Glucose [...] rhythm with a rate of 78. Normal GA and QTc intervals. Left axis deviation. No acute ST changes. Slight widening of the QRS with a nonspecific intraventricular conduction delay. Interpreted by emergency doctor Discharge Plan Triage Chief Complaint: General Illness ED Provider: Jann Hoffmann Dx/Rx/DC Orders Clinical Impression: Acute dehydration, Hyperbilirubinemia, Hyperglycemia, Nausea Instructions: Dehydration Primary Care Provider: Jessica Alvarez HORTICULTURAL WORKER Referrals: Jessica Alvarez HORTICULTURAL WORKER, HORTICULTURAL WORKER-C [Primary Care Provider] - 3-5 Days Disposition Disposition: Assisted Living What to do if you have Problems For any increased pain, shortness of breath, bleeding, nausea or vomiting, chestpain, or any unexpected problems, contact your Primary Care Provider. Call [facility] ([phone]) or report to the closest Emergency Room. Call 911 if necessary. 11/08/22 1056 <Electronically signed by Jann Hoffmann MD> Cosigner Signature (if applicable): CC: TARI Alvarez ~ Signed [facility] Work Phone: 1(361) 453-557101-29-2022 Hospital Discharge instructions Patient Education 04/30/2021 07:39:48 [...] wet, you can dry it with a humanities division chair on a cool setting. You [...] around cast becomes red, swollen, or irritated [id number] [employer] [facility]. [address] [place] [address]. All rights reserved. This information is not intended as a substitute for professional medical care. Always follow yourhealthcare professional's instructions. Follow Up Care 04/30/2021 07:20:30 With:DO ANIBAL NOLASCO DO Address: When:3-5 days [facility] 12-03-2021 Note. MICRO - Microbiology PROCEDURE: [...] Locations *1: This test was performed at: [address], [id number] [place] [address] ([place])03-04-2021 Note. MICRO - Microbiology PROCEDURE: Blood Culture [...] Locations *1: This test was performed at: [address], [address]- , [facility] ([place])02-28-2021 Hospital Discharge instructions Patient Education 02/28/2021 13:15:37 Nasal Fracture, [id number] Nasal Fracture A fracture is a break [...] minutes, 2 3 times a day. Take fcuq-ejb-aitpcib and prescription medicines only as told by [...] 12/26/2008 Document Revised: 08/20/2018 Document Reviewed: 08/20/2018 [employer] Patient Education 2020 [employer] 02/28/2021 13:15:21 Fall Prevention and Home Safety, [id number] Fall Prevention and Home Safety Falls cause [...] 06/18/2012 [facility] Patient Information [address] [facility]. This information is not intended to replace advicegiven to you by your health care provider. Make sure you discuss any questions you have with your health care provider. Follow Up Care 02/26/2021 17:06:54 With:Follow up with primary care provider Address: When:3-5 days [facility] 11-28-2021 Note. MICRO - Microbiology PROCEDURE: [...] Locations *1: This test was performed at: [facility], [address] [place] [address], [id number]- , [facility] ([place])02-27-2021 Note. MICRO - Microbiology PROCEDURE: Streptococcus Pneumoniae [...] Locations *1: This test was performed at: [facility], [address] [place] [address], [facility]- , [facility] ([place])02-27-2021 Evaluation + Plan noteExtracted from: Title:History and Physical Author:CROW CLIFFORD RESEARCH CONSULTANT-VICE CHANCELLOR Date:02/27/21 1. COPD without exacerbation 2. Altered mental status 3. Frequent falls 4. History of COVID-19 5. Type 2 diabetes mellitus 6. HTN (hypertension) 7. CAD in [place] artery 8. CHIRAG (obstructive sleep apnea) 9. [...] 24 hours with anticipated discharge back to [facility] facility tomorrow. Hypertension continue home medications. SBP goal 140 or less. CAD Information from continue Imdur and Plavix CHIRAG no history of CPAP use. Chronic O2 via nasal cannula at 3 L/min. Comminuted nasal bone fracture status post fall. Supportive measures with analgesics, ice. Patient denies any pain or discomfort. Labs, diagnostics reviewed as noted in HPI or A/P. External records reviewed via [email or web address]. Code Status: Full code Clinically patient is improved today from time of admission. We will continue to closely monitor patient. Discussed with collaborating physician, Dr. Au This document was transcribed using a voice recognition software and may contain typographical errors. Diagnostic Tests Pending * Theophylline Level Panel 03/01/21 [facility] 11-22-2021 NoteHNO ID: [id number] Author: Hammad Newton RN Service: ? Author Type: Registered Nurse Type: Progress Notes Filed: 02/21/2021 2:07 PM Note Text: COVID COMMUNITY MONITORING PROGRAM Provider Action/FYI: Did not contact patient. Not appropriate for COVID monitoring as patient currently in facility. Hammad Newton RN February 21, 2021 2:07 [facility]11-22-2021 NotePatient Outreach (QAINDP) SHOLA MARTINEZ ([id number]) 1950 M Date Time Provider Department 02/21/21 [...] 02/15/2021 Encounter Status:Closed by HAMMAD NEWTON on 02/21/21[facility]11-19-2021 NoteHNO ID: [id number] Author: Lis Garcia RN Service: Nursing Author Type: Registered Nurse Type: Nursing Progress Note Filed: 02/18/2021 5:10 PM Note Text: Report called to [facility]21 NoteHNO ID: [id number] Author: Loren Muir RN Service: Care Management Author Type: Registered Nurse Type: Care Mgt Progress Note Filed: 02/18/2021 1:35 PM Note Text: CARE MANAGEMENT DISCHARGE NOTE SERVICE DATE: 02/18/2021 SERVICE TIME: 1:32 PM LOS: 3 days Admission Date: 02/14/2021 DISCHARGE ARRANGEMENT (list agency and phone number) Discharge Arrangement: Longterm Facility Was an expedited discharge program used?: No Provider Name: [facility] CAREGIVER ASSESSMENT: Caregiver is ready, willing and able to meet the patient's needs as recommended by the inter-professional team:: Yes Does the patient have an acute stroke diagnosis, or has the patient had a stroke during this admission?: No Patient's transition needs and plan for meeting these needs: SNF HANDOFF COMMUNICATION: TRANSPORTATION ARRANGEMENTS: Transportation Arrangements: Ambulance/[facility] Agency and Phone #:: [facility] ( [facility] ) [phone] / [phone] Date of Trip: 02/18/21 Time of Trip: 1700 Type of Service: BLS Non-emergency Is Patient Medicaid Pending?: No Discussion of financial coverage occurred with: Patient Outside Sales Executive Location: [facility] Destination: [facility] Financial Care Management Responsibility: None ADDITIONAL CONTACT RESOURCES: Discharge Information Row Name ED to Hosp-Admission (Current) from 02/14/2021 in [place] [facility]0 MEDICAL Longterm Facility Agency [facility] Patient discharged today. PT/OT recommending SNF, pt agreeable to [facility]. Precert completed, sent SNF 7000 and d/c summary. Pt will be going via cot from [employer] at 1700. Transport folder completed and on chart, RN notifed. Pt notified of d/c plans and agreeable. SIGNATURE: Loren Muir RN PATIENT NAME: Shola Martinez DATE: February 18, 2021 TIME: 1:32 PM PAGER/CONTACT #: [phone] [facility] Center11-19-2021 NoteHNO ID: [id number] Author: Carmina Rodriguez RPh Service: Pharmacy Author [...] RPh February 18, 2021 1:20 PM Pager: [phone] 02/18/2021 1:20 PM Medication List START taking [...] FLOMAX TRADJENTA 5 mg Tab Generic drug: [facility]inaGLIPtinCentral [facility]-19-2021 NoteHNO ID: [id number] Author: Lis Garcia RN Service: Nursing Author Type: Registered Nurse Type: Nursing Progress Note Filed: 02/18/2021 8:38 AM Note Text: Dr Ellis notified patient requesting something for [facility]11-18-2021 NoteHNO ID: [id number] Author: Renny Tenorio DO Service: Hospital Medicine Author Type: Physician Type: Progress Notes Filed: 02/17/2021 5:16 PM Note Text: DEPARTMENT OF HOSPITAL MEDICINE PROGRESS NOTE SERVICE DATE: 02/17/2021 SERVICE TIME: 5:13 PM Hospital Medicine/Primary Attending: Renny Tenorio DO NIGHT AND WEEKEND COVERAGE: After 7pm please page [phone] CHIEF COMPLAINT: weakness SUBJECTIVE: Pt seen and [...] this note may have been generated using Shelfari voice recognition software. Reasonable efforts were made to correct any dictation erro (more content not included)...[facility] 02-17-2021 NoteHNO ID: [id number] Author: Loren Muir RN Service: Care Management Author Type: Registered Nurse Type: Care Mgt Progress Note Filed: 02/17/2021 3:05 PM Note Text: CARE MANAGEMENT PROGRESS NOTE SERVICE DATE: 02/17/2021 SERVICE TIME: 3:01 PM LOS: 2 days Chart reviewed. PT/OT recs are for SNF, pt is agreeable. [facility] is able to accept and is foc. Precert has been started, agreeable to start now. Pt will need cot at d/c. CM to follow. SIGNATURE: Loren Muir RN PATIENT NAME: Shola Martinez DATE: February 17, 2021 TIME: 3:01 PM PAGER/CONTACT #: [phone] Maine Medical Center11-17-2021 NoteHNO ID: [id number] Author: Renny Tenorio DO Service: Hospital Medicine Author Type: Physician Type: Progress Notes Filed: 02/16/2021 1:43 PM Note Text: DEPARTMENT OF HOSPITAL MEDICINE PROGRESS NOTE SERVICE DATE: 02/16/2021 SERVICE TIME: 1:33 PM Hospital Medicine/Primary Attending: Renny Tenorio DO NIGHT AND WEEKEND COVERAGE: After 7pm please page [phone] CHIEF COMPLAINT: weakness SUBJECTIVE: Pt seen and [...] this note may have been generated using Shelfari voice recognition software. Reasonable efforts were made to correct any dictation errors that resulted due to the (more content not included)...[facility]11-17-2021 NoteHNO ID: [id number] Author: Lis Garcia RN Service: Nursing Author Type: Registered Nurse Type: Nursing Progress Note Filed: 02/16/2021 12:13 PM Note Text: Multiple attempts for iv unsuccessful Stump Shooter to attempt as soon as possibleCentral [facility] Center11-17-2021 NoteHNO ID: [id number] Author: Loren Muir RN Service: Care Management Author Type: Registered Nurse Type: Care Mgt Initial Assessment Filed: 02/16/2021 11:46 AM Note Text: CARE MANAGEMENT: ASSESSMENT AND DISCHARGE PLAN SERVICE DATE: February 16, 2021 SERVICE TIME: 11:41 AM PRIMARY CARE PHYSICIAN: Danie Sawyer MD ADMISSION STATUS: Inpatient Needs Prior to Discharge: To Be Determined;Desat Study;Equipment Delivery;OT/PT Evaluation MEDICAL: [employer] MEDICARE ASSURE HMO D SNP 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 Last discharge within 30 days: No Advance Directive: Current Advance Directive: None Front End Alignment Specialist Attempted to Assist with AD Completion: Yes [...] Cane;Walker;Wheelchair Has the Patient Been in a Longterm Facility in the Past 30 days?: No SOCIAL: Living Arrangements: Home Lives With: Alone Primary Contact: Extended Emergency Contact Information Primary Emergency Contact: BradenMarge Mobile Relation: Sister Secondary Emergency Contact: Jessica Rodriguez [place] Relation: Relative Supportive Patient Contact:: Yes Contact [...] Completely I feel financially burdened by my vtx-ek-ucihvs expenses for my prescription medication:: 0 - Disagree Completely Risk Score: 0 Patient is categorized as: Low risk < 2 Are you interested in bedside delivery of your medications? No Is Patient Psychosocially Complex?: No ASSESSMENT AND PLAN: Medical Needs: Medical Needs: None Psychosocial Needs: Psychosocial Needs: None FREEDOM OF CHOICE EXPLAINED: [place]all of Choice Given: No Reason Not Given: Unable to complete with this assessment - revisit POTENTIAL TRANSITION PLANS To Be Determined Pt is from home alone +DME, +PCP, + RX, pt uses a wheelchair to get around apartment and is active with [facility] Care at home. Will send a return referral to [facility] care. Pt is on 2L [place] will send a referral to [facility], will need script and ambulatory at d/c. No remdesivir at this time. Pt states he will need transport at d/c. He has a ramp into apartment complex and elevator to his nuno. CM to follow clinical progress. SIGNATURE: Loren Muir RN PATIENT NAME: Shola Martinez DATE: February 16, 2021 TIME: 11:41 AM PAGER/CONTACT #: [phone] Maine Medical Center11-16-2021 NoteHNO ID: [id number] Author: Ashli Parson (Poll Watcher) Service: Pharmacy Author Type: [employer] Type: Plan of Care Filed: 02/15/2021 11:27 AM Note Text: PHARMACY MEDICATION REVIEW Patient Name: Shola Martinez : 1950 The following medications were updated within the DRIVE MAN medication list: Medications ADDED to DRIVE MAN medication list albuterol HFA (PROVENTIL HFA, VENTOLIN [...] 24 hr tablet ? Medications CHANGED on DRIVE MAN medication list ? Medications REMOVED from DRIVE MAN medication list atorvastatin (LIPITOR) 40 mg tablet [...] medication history: Yes Medication history completed by: [employer]ons: Ashli Parson (Poll Watcher) Source of history: Patient: Reliability of source: Appears reliable, clearly identified: Medication name, Medication dose, Medication route and Medication frequency, Pharmacy records: [facility] [phone] [facility] Medication nonadherence identified: No barriers noted Reconciliation completed: No, pharmacist not yet reviewed Patient interested in Bedside Delivery Services or using OP Pharmacy at discharge? No Preferred outpatient pharmacy: [facility] [place] [address] [facility] [phone] [id number] Allergies: No Known Allergies Prior to Admission medications as of 02/14/21 5661 Medication Sig Last Dose Taking albuterol HFA [...] as needed. Indications: PAIN Yes Ashli Parson (Poll Watcher) [id number] 02/15/2021[facility]11-16-2021 Influenza virus A and B RNA and SARS-CoV-2 (COVID-19) N gene panel LILLIAN+probe (Resp)COVID 19 RESULT: SARS-CoV-2 (Agent of COVID-19) Detected by PCR. This test has been authorized by FDA under an Emergency Use Authorization (EUA). INFLUENZA A PCR: Negative for Influenza A by RT-PCR INFLUENZA B PCR: Negative for Influenza B by RT-PCRCentral Maine Medical CenterComment on above: Performed By: #### 94680-6 ####[facility] LABORATORYCLIA [id number] [place] [address] [place] [id number] NoteHospitalist Discharge Summary Shola Martinez : 1950 [...] Community acquired pneumonia 04/2016 ? Diabetic neuropathy ([facility]) ? Dizziness after head injury 05/2013 ? Hx of blood clots ? Hyperlipidemia ? Hypertension ? Morbid obesity ([facility]) 05/21/2018 ? Recurrent UTI 02/03/2018 ? Sepsis due to gram-negative UTI ([facility]) 12/11/2017 ? Sleep apnea ? [...] Discharge Medications: Shola Martinez Home Medication Instructions PEREZ:[id number] Printed on:02/01/21 5661 Medication Information Accu-Chek Softclix Lancets MISC TEST [...] wheelchair OZEMPIC, 0.25 O (more content not included)...[facility]11-02-2021 Hospital Discharge instructions* Discharge Instr - [...] at most local grocery stores, pharmacies, and [employer]-stores. If you have any questions about your [...] PhD [address] / [place] [address] RED ZONE: Medical Alert Severe or unrelieved [...] Where can you learn more? Go to [email or web address] and sign in to your Yoke account. Enter Q823 in the Search Health Information box to learn more about Dizziness: Care Instructions. If you do not have an account, please click on the Sign Up Now link. Current as of: September 30, 2020 Content Version: 13.0 N-1-1. Care instructions adapted under license by [employer]. If you have questions about a medical condition or this instruction, always ask your healthcare professional. N-1-1 disclaims any warranty or liability for your use of this information. * Attachments The following attachments cannot be sent through Care Everywhere. * Dizziness (Macedonian) * Lightheadedness or Faintness (Macedonian) documented in this encounterSUMMA Work Phone: 1(931) 311-345611-02-2021 History of Present illness Narrative* Elyse Whitney MD - 02/01/2021 8:33 AM EDT Images from the original note were not included. Hospitalist Progress Note 02/01/2021 8:33 AM [phone]: Please page me ([phone]) for patient care issues. [phone]: Please page IMS night Hospitalist for any [...] 09/12/2019 Community acquired pneumonia 04/2016 Diabetic neuropathy ([facility]) Dizziness after head injury 05/2013 Hx of blood clots Hyperlipidemia Hypertension Morbid obesity ([facility]) 05/21/2018 Recurrent UTI 02/03/2018 Sepsis due to gram-negative UTI ([facility]) 12/11/2017 Sleep apnea Type II [...] strength of b/l upper and lower extremities. Envelope Press Operator strength equal bilaterally. Sensation intact in [...] of Hospitalist Medicine Inpatient Medical Services PAGER: [phone] * Yolanda Hooker DTR - 02/01/2021 7:31 [...] GFR 60-89ml/min, Community acquired pneumonia, Diabetic neuropathy ([facility]), Dizziness, Hx of blood clots, Hyperlipidemia, Hypertension, Morbid obesity ([facility]), Recurrent UTI, Sepsis due to gram-negative UTI ([facility]), Sleep apnea, Type II or [...] with wc) Transfer Assistance: Needs assistance Active Finishing Wire Sawyer: No Objective Vision: Impaired Vision Exceptions: Wears [...] 01/31/2021 10:02 AM EDT Physical Therapy Facility/Department: [facility] Initial Assessment NAME: Shola Martinez : [...] of blood clots, Hyperlipidemia, Hypertension, Morbid obesity ([facility]), Recurrent UTI, Sepsis due to gram-negative UTI ([facility]), Sleep apnea, Type II or [...] with wc) Transfer Assistance: Needs assistance Active Finishing Wire Sawyer: No Cognition Cognition Overall Cognitive Status: WFL [...] included. Hospitalist Progress Note 01/31/2021 8:50 AM [phone]: Please page me ([phone]) for patient care issues. [phone]: Please page IMS night Hospitalist for any [...] 09/12/2019 Community acquired pneumonia 04/2016 Diabetic neuropathy ([facility]) Dizziness after head injury 05/2013 Hx of blood clots Hyperlipidemia Hypertension Morbid obesity ([facility]) 05/21/2018 Recurrent UTI 02/03/2018 Sepsis due to gram-negative UTI ([facility]) 12/11/2017 Sleep apnea Type II [...] strength of b/l upper and lower extremities. Envelope Press Operator strength equal bilaterally. Sensation intact in [...] of Hospitalist Medicine Inpatient Medical Services PAGER: [phone] * Ruben Leslie - 01/31/2021 7:55 AM EDT Speech Language Pathology Patient passed the Nursing Swallowing Screening and is on a Regular diet. Completed speech orders per stroke protocol. Please reconsult as necessary. Ruben Leslie Student Speech-Language Pathologist documented in this [facility] Work Phone: [phone]) 846-953707-08-2021 NoteDischarge Summary Shola Martinez : 1950 ADMIT [...] neck, echocardiogram CONSULTANTS: Neurology RECOMMENDED NEXT STEPS: [facility]. Continue aspirin and plavix. Statin increased. [...] DISCHARGE MEDICATIONS: Shola Martinez Home Medication Instructions PEREZ:[id number] Printed on:10/07/20 1856 Medication Information Accu-Chek Softclix Lancets MISC TEST [...] Complexity: follow up within 7-14 calendar days (56686) [] Severe Complexity: follow up within 7 calendar days (91285) FOLLOW UP TESTING, PENDING RESULTS OR REFERRALS AT TRANSITIONAL CARE VISIT: [] Yes [] No PENDING STUDIES: No DISPOSITION: Home FACILITY/HOME CARE AGENCY NAME: Follow up with Favian Trevizo MD PhD [address] [facility] [address] Schedule an appointment as soon as possible for a visit in 1 week INSTRUCTIONS TO MA/SW: Please call patient on day after discharge (must document patient contacted within 2 business days of discharge). FOLLOW UP QUESTIONS FOR MA/SW: 1. Did you get medications filled and taking them as instructed from (more content not included)...[facility]* Diagnosis Lightheadedness- Primary Dizziness and giddiness Lightheaded Dizziness and giddiness documented in this encounter [facility] Work Phone: Evaluation noteNo assessment information available [facility] Work Phone: Evaluation note* Diagnosis Onset Date Resolution Status Adult failure to thrive acut e [facility] Work Phone: Hospital course Narrative No data available for this section [facility] Hospital Discharge instructions No data available for this section [facility] [place] Progress note No data available for this section [facility] [place] Summary Purpose Family History No Family History Records Found Relationship Condition Age at Onset Recorded Date/T wilmer mother Diabetes mellitus Unknown Malignant neoplasm Unknown father Diabetes mellitus Unknown Advance Directives No Advanced Directives Records FoundDocuments on File Type Date Recorded Patient Dance Hall Host/Hostess Expl anation Advance Directives and Living Will Power of Portfolio Architect Latest Code Status on File Code Status Date Activated Date Inactivated Comments Full Code 11/30/2018 3:23 PM Full Code 08/27/2018 10:38 AM 08/27/2018 2:59 PM Full Code 08/27/2018 7:43 AM 08/27/2018 10:38 AM Full Code 07/30/2018 3:42 PM 07/30/2018 8:09 PM Full Code 07/30/2018 10:55 AM 07/30/2018 3:42 PM Documents on File Type Date Recorded Patient Dance Hall Host/Hostess Expl anation Advance Directives and Living Will Power of Portfolio Architect Latest Code Status on File Code Status [...] Documents on File Type Date Recorded Patient Dance Hall Host/Hostess Expl anation ACP-Advance Directive ACP-Power of Portfolio Architect Latest Code Status on File Code Status [...] Documents on File Type Date Recorded Patient Dance Hall Host/Hostess Expl anation Advance Directive(s) 02/14/2021 11:43 PM Advance Directive Response Recorded Date/ Time Living Will No October 03, 2022 6 :56am Power of Portfolio Architect No October 03, 2022 6:56am Advance Directive Response Recorded Date/ Time Living Will No November 08, 2022 4:59pm Power of Portfolio Architect No November 08 4:59pm Advance Directive Response Recorded Date/ Time Living Will No November 08, 2022 9:12pm Power of Portfolio Architect No November 08 9:12pm Discharge Instructions * [...] Contact Information Primary Emergency Contact: lily tuttle [facility] Relation: Brother/Sister Past Surgical History: Past Surgical History: Procedure Laterality Date APPENDECTOMY 1989 CATARACT REMOVAL CHOLECYSTECTOMY 08/2015 CORONARY ANGIOPLASTY 09/2016 EYE SURGERY Left 08/27/2018 FOOT SURGERY Left great toe and next toe removed HERNIA REPAIR 1991 OTHER SURGICAL HISTORY Right 07/30/2018 PHACOemulisification pupilloplasty malyugin right posterior chamber intraocular lens TONSILLECTOMY 1955 Immunization History: Immunization History Administered Date(s) Administered Pneumococcal Conjugate 13-valent ([id number]) 08/10/2016 Pneumococcal Polysaccharide (Swsfwhnft04) 07/22/2012, 10/16/2017 Td, unspecified formulation 08/31/1992 Tdap (Boostrix, Adacel) 05/27/2007, 01/17/2018 Active Problems: Patient Active Problem List Diagnosis Code Weakness generalized R53.1 Diabetic neuropathy ([facility]) E11.40 Diabetes mellitus type 2, uncontrolled ([facility]) E11.65 Constipation K59.00 Hyperlipidemia associated with type 2 diabetes mellitus ([facility]) E11.69, E78.5 Diabetes mellitus type 2 without retinopathy ([facility]) E11.9 Senile cataracts of both eyes H25.9 Blepharitis of both eyes H01.003, H01.006 Blurred vision, bilateral H53.8 Myopia of both eyes with astigmatism and presbyopia H52.13, H52.203, H52.4 Heterozygous MTHFR mutation C677T ([facility]) E72.12 Benign prostatic hyperplasia with incomplete bladder emptying N40.1, R39.14 CHIRAG (obstructive sleep apnea) G47.33 Essential hypertension I10 History of DVT (deep vein thrombosis) Z86.718 History of amputation of toe ([facility]) Z89.429 Morbid obesity ([facility]) E66.01 Chronic respiratory failure with hypoxia ([facility]) J96.11 Chronic diastolic heart failure ([facility]) I50.32 Dermatochalasis of both upper [...] Assisted Dressing Assisted Toileting Independent Feeding Independent Therapy Teacher Independent Med Delivery whole Wound Care Documentation [...] Readmission: 14 Discharging to Facility/ Agency Name: [place] [address] Dialysis Facility (if applicable) Name: Address: Dialysis Schedule: Phone: Fax: Sustainability Specialist/Cafeteria Manager signature: ICIAN SECTION Prognosis: Good Condition at Discharge: Stable Rehab Potential (if transferring to Rehab): Good Recommended Labs or Other Treatments After Discharge: CBC,BMP in one week Physician Certification: I certify the above information and transfer of Shola Martinez is necessary for the continuing treatment of the diagnosis listed and that he requires Longterm Facility for less 30 days. Update Admission H&P: No change in H&P PHYSICIAN SIGNATURE: documented in this encounter* Attachments The following attachments cannot be sent through Care Everywhere. * Head Injury: Closed: General Info (Macedonian) documented in this encounter* Discharge Instr - Lab* Kristy Hooker LPN - 09/14/2019 12:52 PM EDT Your physician has ordered skilled home care services for you. Your home care will be provided by: [facility] [phone] [facility] [phone] * Discharge Instr - DAMON* Praneeth Reyes MD - 09/14/2019 12:12 PM EDT Continuity of Care Form Patient Name: Shola Martinez : 1950 Admit date: 09/12/2019 Discharge date: Code Status Order: Full Code Advance Directives: Advance Care Flowsheet Documentation Date/Time Healthcare Directive Type of Healthcare Directive Copy in Chart Healthcare Agent Appointed Healthcare Agent's Name Healthcare Agent's Phone Number 09/12/19 [phone] No, patient does not have an advance directive for healthcare treatment -- -- -- -- -- Admitting Physician: Shea Aguilar MD PCP: Favian Trevizo MD PhD Discharging Nurse: Discharging Hospital Unit/Room#: 456/4561 Discharging Unit Phone Number: Emergency Contact: Extended Emergency Contact Information Primary Emergency Contact: lily tuttle [facility] Relation: Brother/Sister Past Surgical History: [...] yrs and older) 01/09/2019 Pneumococcal Conjugate 13-valent ([id number]) 08/10/2016 Pneumococcal Polysaccharide ([id number]) 07/22/2012, 10/16/2017 Td, unspecified formulation 08/31/1992 Tdap (Boostrix, Adacel) 05/27/2007, 01/17/2018, 09/02/2019 Active Problems: Patient Active Problem List Diagnosis Code Weakness generalized R53.1 Diabetic neuropathy ([facility]) E11.40 Diabetes mellitus type 2, uncontrolled ([facility]) E11.65 Constipation K59.00 Hyperlipidemia associated with type 2 diabetes mellitus ([facility]) E11.69, E78.5 Blepharitis of both eyes H01.003, H01.006 Blurred vision, bilateral H53.8 Myopia of both eyes with astigmatism and presbyopia H52.13, H52.203, H52.4 Heterozygous MTHFR mutation C677T ([facility]) E72.12 Benign prostatic hyperplasia with incomplete bladder emptying N40.1, R39.14 CHIRAG (obstructive sleep apnea) G47.33 Essential hypertension I10 UTI (urinary tract infection) N39.0 History of DVT (deep vein thrombosis) Z86.718 History of amputation of toe ([facility]) Z89.429 Class 2 severe obesity due to excess calories with serious comorbidity and body mass index (BMI) of37.0 to 37.9 in adult ([facility]) E66.01, Z68.37 Chronic respiratory failure with hypoxia ([facility]) J96.11 Chronic diastolic heart failure ([facility]) I50.32 Dermatochalasis of both upper eyelids H02.831, H02.834 Lung nodule, multiple R91.8 Small pupil H57.03 Chronic obstructive pulmonary disease ([facility]) J44.9 Pseudophakia of both eyes Z96.1 CKD [...] Assisted Dressing Assisted Toileting Assisted Feeding Independent Therapy Teacher Dependent Med Delivery whole Wound Care Documentation [...] Readmission: 0 Discharging to Facility/ Agency Name: [facility] Address: [address] [place] [address] Dialysis Facility (if applicable) Name: Address: Dialysis Schedule: Phone: Fax: Sustainability Specialist/Cafeteria Manager signature: PHYSICIAN SECTION Prognosis: Good Condition at Discharge: Stable Rehab Potential (if transferring to Rehab): Good Recommended Labs or Other Treatments After Discharge: PT/OT atleast three times daily. BMP/CBC on 09/19/2019 Physician Certification: I certify the above information and transfer of Shola Martinez is necessary for the continuing treatment of the diagnosis listed and that he requires Longterm Facility for less 30 days. Update Admission [...] Everywhere. * Coronavirus Disease (COVID-19): General Info (Macedonian) * Coronavirus Disease (COVID-19): Isolation (Macedonian) documented in this encounter* Attachments The following attachments cannot be sent through Care Everywhere. * Fall Prevention (Macedonian) * Head Injury: Closed: General Info (Macedonian) * Back: Strain (Macedonian) documented in this encounter History of Present [...] Accumulation-Moderate to severe fluid accumulation, Extremities 6. Envelope Press Operator Strength-Not measured Nutrition Risk Level: High Nutrient Needs: Estimated Daily Total Kcal: 0319-6005 kcals(25-30) Estimated Daily Protein (g): 86-103(1-1.2) Estimated [...] % Weight Change: , no wt loss Irene Body Wt: 190 lb (86.2 kg), % Irene Body 157% BMI Classification: BMI 35.0 - [...] appropriate. Date of Service: 12/03/2018 Discharge Recommendations: Subacute/Longterm Facility OT Equipment Recommendations Equipment Needed: No [...] disease (HCC), Community acquired pneumonia, Diabetic neuropathy ([facility]), Dizziness, Hx of blood clots, Hyperlipidemia, Hypertension, Morbid obesity ([facility]), Recurrent UTI, Sepsis due to gram-negative UTI ([facility]), Sleep apnea, Type II or [...] household distances ) Transfer Assistance: Independent Active Finishing Wire Sawyer: No Patient's Finishing Wire Sawyer Info: SCAT Occupation: Retired Objective Vision: Within [...] Toileting: Moderate assistance(MIN A for transfer to [facility], assist for all parts due to fatigue) [...] 1: Pt will complete LB ADLs at [facility]. Short term goal 2: Pt will complete functional transfers and mobility at [facility] with MOD INDEP. Short term goal 3: Pt will complete toileting tasks at [facility] with MOD INDEP. Short term goal 4: Pt will lidia >4 minutes of functional standing at FWW during ADLs at [facility]. Short term goal 5: Pt will lidia B UE ther exe to promote strength and activity tolerance for daily routine. Patient Goals Patient goals : improve indep with daily routine Therapy Time Individual Concurrent Group Co-treatment Time In 1123 Time Out 1133 Minutes 10 Hazel Orozco OT * Padmini Callejas, PT - 12/03/2018 11:59 AM EDT Physical Therapy Facility/Department: [facility] Initial Assessment NAME: Shola Martinez : 1950 Date of Service: 12/03/2018 Discharge Recommendations: Continue to assess pending progress, Subacute/Longterm Facility PT Equipment Recommendations Equipment Needed: No [...] of blood clots, Hyperlipidemia, Hypertension, Morbid obesity ([facility]), Recurrent UTI, Sepsis due to gram-negative UTI ([facility]), Sleep apnea, Type II or [...] household distances ) Transfer Assistance: Independent Active Finishing Wire Sawyer: No Patient's Finishing Wire Sawyer Info: SCAT Occupation: Retired Objective Observation/Palpation Posture: [...] for falls, Nurse notified, Left in bed [facility] Score [facility] Inpatient Mobility Raw Score : 15 (12/03/181150) [facility] Inpatient T-Scale Score : 39.45 (12/03/181150) Mobility Inpatient CMS 0-100% Score: 57.7 (12/03/181150) Mobility Inpatient CMS G-Code Modifier : CK (12/03/181150) [facility] Mobility Inpatient How much difficulty turning over [...] 3-5 steps with a railing?: A Lot [facility] Inpatient Mobility Raw Score : 15 [facility] Inpatient T-Scale Score : 39.45 Mobility Inpatient [...] EDT Hospitalist Progress Note 12/02/2018 1:16 PM [phone]: Please page nm @ [phone] for patient care issues. [phone]: Please page [facility] night Hospitalist for [...] 09/16/2019 6:41 PM EDT Report called to [facility]. Pt belongings gathered and ready to go * Shea Aguilar MD - 09/15/2019 1:27 PM EDT Hospitalist Progress Note 09/15/2019 1:27 PM Throughout the encounter I wore an N95 MASK, FACE SHIELD [phone]: Please page me @ [phone] for patient care issues. [phone]: Please page [facility] night Hospitalist for [...] injury 05/2013 Plan : [facility] with [facility]x, encouraged oral [...] Services This report was created using the [employer] Speaking voice- activated system. Despiteprompt dictation and careful editorial review, there may be subtle contextual errors in this report, due to misrecognition of the spoken word. * Padmini Palmer, PT - 09/15/2019 9:39 AM EDT Physical Therapy Facility/Department: [facility] Daily Treatment Note NAME: Shola Martinez : 1950 Date of Service: 09/15/2019 Discharge Recommendations: Continue to assess pending progress, Subacute/Longterm Facility(if patient goes home [facility] PT) Assessment Assessment: Pt demonstrated need [...] artery disease), Cataract, Chronic obstructive pulmonary disease ([facility]), CKD (chronic kidney disease) stage 2, GFR 60-89ml/min, Community acquired pneumonia, Diabetic neuropathy ([facility]), Dizziness, Hx of blood clots, Hyperlipidemia, Hypertension, Morbid obesity ([facility]), Recurrent UTI, Sepsis due to gram-negative UTI ([facility]), Sleep apnea, Type II or [...] of activity with poor follow thru AM-PAC [facility] Mobility Inpatient How much difficulty turning [...] climbing 3-5 steps with a railing?: Total [facility] Inpatient Mobility Raw Score : 15 [facility] Inpatient T-Scale Score : 39.45 Mobility [...] ex) Jessica Bose PTA (completed treatment) (updated [facility]) * Shea Aguilar MD - 09/14/2019 1:10 PM EDT Hospitalist Progress Note 09/14/2019 1:10 PM Throughout the encounter I wore an N95 MASK, FACE SHIELD [phone]: Please page me @ [phone] for patient care issues. [phone]: Please page [facility] night Hospitalist for [...] Services This report was created using the [employer] Speaking voice- activated system. Despiteprompt dictation and [...] appropriate. Date of Service: 09/14/2019 Discharge Recommendations: Subacute/Longterm Facility Assessment Performance deficits / Impairments: Decreased [...] GFR 60-89ml/min, Community acquired pneumonia, Diabetic neuropathy ([facility]), Dizziness, Hx of blood clots, Hyperlipidemia, Hypertension, Morbid obesity ([facility]), Recurrent UTI, Sepsis due to gram-negative UTI ([facility]), Sleep apnea, Type II or [...] Ambulation Assistance: Independent(FWW) Transfer Assistance: Independent Active Finishing Wire Sawyer: No Objective Vision: Within Functional Limits Hearing: [...] BSC with instability, however, no true LOB. FLOOR MANAGER reported ambulating pt to bathroom yesterday, however, pt with significantly impaired balance in which pt had to be wheeled from bathroom with w/c. Toilet Transfers Toilet - Technique: Ambulating Equipment Used: Standard bedside commode Toilet Transfer: Minimal assistance Toilet Transfers Comments: at [facility]- pt required VC for safe hand placement [...] 09/13/2019 1:41 PM EDT Physical Therapy Facility/Department: [facility] Initial Assessment NAME: Shola Martinez : 1950 HAVING REVIEWED THIS PATIENT TREATMENT AND GOALS ,I CERTIFY THAT THE PLAN OF CARE IS MEDICAL NECESSARY AND AND APPROPRIATE. Date of Service: 09/13/2019 Discharge Recommendations: Continue to assess pending progress, Subacute/Longterm Facility(if patient goes home C PT) PT [...] of blood clots, Hyperlipidemia, Hypertension, Morbid obesity ([facility]), Recurrent UTI, Sepsis due to gram-negative UTI ([facility]), Sleep apnea, Type II or [...] Ambulation Assistance: Independent(FWW) Transfer Assistance: Independent Active Finishing Wire Sawyer: No Cognition Cognition Overall Cognitive Status: WFL [...] Restraints Initially in place: No OutComes Score -[facility] Mobility Inpatient How much difficulty turning [...] climbing 3-5 steps with a railing?: Total [facility] Inpatient Mobility Raw Score : 18 [facility] Inpatient T-Scale Score : 43.63 Mobility Inpatient CMS 0-100% Score: 46.58 Mobility Inpatient CMS G-Code Modifier : CK AM-PAC Score [facility] Inpatient Mobility Raw Score : 18 (09/13/19 1341) [facility] Inpatient T-Scale Score : 43.63 (09/13/191340) Mobility Inpatient CMS 0-100% Score: 46.58 (09/13/191340) Mobility Inpatient [facility] G-Code Modifier : CK (09/13/191340) Goals Short [...] I wore an N95 MASK, FACE SHIELD [phone]: Please page me @ [phone] for patient care issues. [phone]: Please page [facility] night Hospitalist for [...] artery disease) Cataract Chronic obstructive pulmonary disease ([facility]) 08/20/2018 CKD (chronic kidney disease) stage 2, GFR 60-89 ml/min 09/12/2019 Community acquired pneumonia 04/2016 Diabetic neuropathy ([facility]) Dizziness after head injury 05/2013 Hx of blood clots Hyperlipidemia Hypertension Morbid obesity ([facility]) 05/21/2018 Recurrent UTI 02/03/2018 Sepsis due to gram-negative UTI ([facility]) 12/11/2017 Sleep apnea Type II [...] Services This report was created using the V[employer] Speaking voice- activated system. Despiteprompt dictation and [...] of head, initial encounter Tyler Bermudez MD [address] [place] [address] [facility] [address] [place] [address] [facility] [address] [place], [place] [address] F: [phone] Health Concerns Infection Onset Date Last Indicated [...] section and content) DATE CREATED AUTHOR 11/01/2017 [facility] DATE CREATED AUTHOR AUTHOR'S ORGANIZ ATION 09/08/2018 [facility] DATE CREATED AUTHOR AUTHOR'S ORGANIZ ATION 07/21/2020 [facility] DATE CREATED AUTHOR AUTHOR'S ORGANIZ ATION 03/06/2021 [facility] DATE CREATED AUTHOR AUTHOR'S ORGANIZ ATION 05/10/2021 [facility] CREATED AUTHOR AUTHOR'S ORGANIZ ATION 05/24/2021 [facility] ([place]) DATE CREATED AUTHOR AUTHOR'S ORGANIZ ATION 06/03/2021 [facility] DATE CREATED AUTHOR AUTHOR'S ORGANIZ ATION [facility] Reason for Visit (unrecogniz ed section [...] or prosecute any alcohol or drug abuse patient.[facility] the event this information is protected by the Federal Confidentiality of Alcohol and Drug Abuse Patient Records regulations: The Federal rules restrict any use of the information to criminally investigate or prosecute any alcohol or drug abuse patient.[facility] Scheduled Active and Recently Administ [...] 5-40 mL, IntraVENous, PRN, Line Care, Per Field Case Manager Request, Starting on Sun01/31/21 at 0120, For 72 hours, May use order for Line Care after every IV line use and Agitated Saline Bubble Study. Administration for Bubble Study per wool tamper request for only. Remove 1 mL 0.9% [...] Active Member Role Status Dates Jessica Alvarez HORTICULTURAL WORKER, HORTICULTURAL WORKER-C Primary Care Provider Act marie Team Status: Active Member Role Status Dates Jessica Alvarez HORTICULTURAL WORKER, HORTICULTURAL WORKER-C Primary Care Provider Act marie Dr. Yifan Meza , Emergency Provider Active Dr. Birdgett Villagomez MD Admit Provider, Other Provider Active Dr. Tanika Kunz MD Attending Provider, Other Prov ider Active Team Status: Inactive Member Role Status Dates Dr. Eduar Donahue DO Attending Provider, Emergency P fady Active Jessica Alvarez HORTICULTURAL WORKER, HORTICULTURAL WORKER-C Primary Care Provider Act marie Team Status: Inactive Member Role Status Dates Jessica Alvarez HORTICULTURAL WORKER, HORTICULTURAL WORKER-C Primary Care Provider Act marie Dr. Jann Hoffmann MD Emergency Provider Active Team Status: Inactive Member Role Status Dates Jessica Alvarez HORTICULTURAL WORKER, HORTICULTURAL WORKER-C Primary Care Provider Act marie Dr. Yifan Meza , Emergency Provider Active Dr. Bridgett Villagomez MD Admit Provider, Other Provider Active Dr. Tanika Kunz MD Attending Provider Active Acute Care Clinical Nurse Specialist Relationship Specialty Start Date End Date Danie Sawyer MD PCP - General Internal Medicine 01/29/14 Team Status: Inactive Member Role Status Dates Dr. Eduar Donahue , Emergency Provider Active Jessica Alvarez HORTICULTURAL WORKER, HORTICULTURAL WORKER-C Primary Care Provider Act marie Team Status: Active Member Role Status Dates Jessica Alvarez HORTICULTURAL WORKER, HORTICULTURAL WORKER-C Primary Care Provider Act marie Dr. Yifan Meza DO Emergency Provider Active Dr. Bridgett Villagomez MD Admit Provider, Attending Prov ider Active Team Status: Inactive Member Role Status Dates Jessica Alvarez HORTICULTURAL WORKER, HORTICULTURAL WORKER-C Primary Car e Provider, Attending Provider, Referring Provider Active Team Status: Inactive Member Role Status Dates Jessica Alvarez HORTICULTURAL WORKER, HORTICULTURAL WORKER-C Primary Care Provider Act marie Dr. Jann Hoffmann MD Attending Provider, Emergency Pr ovider Active Care Team (unrecognized sect ion and content) Care Team Personnel Name: DANAY CASTILLO MD Position: P4 Physician - Primary Care Member Role: Primary Care Physician Address: Address: [address] [place] [address]- Care Team Related Persons Name: MARGE TUTTLE [...] BE BASED ON THE PRIMARY CLINICAL RECORDS. [facility] [employer] [facility]. provides no warranty or guarantee of the accuracy or completeness of information in this document.
[2025-03-19] MEDS: Azithromycin 500 MG in 0.9% Normal Saline (250mL Bag) 250 ML 250 MG IV ×2 (04:38→21:46)
[2025-03-19 07:28] LABS: Hematocrit 39.0 % (40-54); Hemoglobin 13.7 g/dL (13.0-16.5); Immature Granulocytes Count 0.030 X10^3/uL (0.0-0.0); Mean Corp Hgb Conc 35.1 g/dL (32-36); Mean Corpuscular Volume 89.9 fL (80-94); Mean Platelet Vol. 9.9 fl (6.2-12.0); NRBC Flagged by Analyzer 0 % (0-5); POSITIVE COUNT YES; Platelet Count 61 K/mm3 (150-450); RBC Distribution Width CV 11.7 % (11.6-14.6); RBC Distribution Width SD 38.3 fl (35.1-43.9); Red Blood Count 4.34 M/mm3 (4.6-6.2); White Blood Count 4.6 K/mm3 (4.4-11.0)
[2025-03-19 07:41] LABS: Anion Gap 12 (5-15); BUN 14 mg/dL (4-19); BUN/Creat Ratio 13.1 RATIO (10-20); Calcium,Total 8.3 mg/dL (7.6-11.0); Carbon Dioxide 23.5 mmol/L (21.0-32.0); Chloride 97 mmol/L (98-108); Estimated Creatinine Clearance 82.79 ml/min (50-250); Glucose 195 mg/dL (70-99); Potassium 4.1 mmol/L (3.3-5.1)
--- NOTE | 2025-03-19 12:51 | PN_ITS ---
Subjective Subjective Patient seen and examined. He was seen with his nurse by his bedside. He complained of weakness. He denied any fever, chills, cough, chest pain, palpitations, dizziness, nausea, vomiting or any other symptoms. Review of systems is otherwise negative. He has remained hemodynamically stable. Objective Data Objective Data Vital Signs: Vital Signs Temp Pulse Resp BP Pulse Ox O2 Del Method 97.8 F 92 17 156/83 H 98 Room Air 03/19/25 10:30 03/19/25 10:30 03/19/25 10:30 03/19/25 10:30 03/19/25 10:30 03/19/25 10:30 Oxygen Delivery Method Room Air Weight: 258 lb 14.4 oz Body Mass Index (BMI) 33.2 Intake & Output: Intake and Output for Last 24 Hours 03/17/25 03/18/25 03/19/25 23:59 23:59 23:59 Intake Total 1300 / 1300 Balance 1300 / 1300 Lab / Micro Data 03/19/25 06:43 03/19/25 06:43 Labs: Laboratory Results - last 24 hr 03/18/25 23:56: WBC 5.0, RBC 4.60, Hgb 14.5, Hct 40.6, MCV 88.3, MCH 31.5, MCHC 35.7, RDW Std Deviation 37.2, RDW Coeff of Gage 11.5 L, Plt Count 71 L, MPV 9.8, Immature Gran % (Auto) 0.400, Neut % (Auto) 78.0 H, Lymph % (Auto) 10.9 L, Bonner % (Auto) 10.1 H, Eos % (Auto) 0.2, Baso % (Auto) 0.4, Absolute Neuts (auto) 3.9, Absolute Lymphs (auto) 0.55 L, Nucleated RBC % 0, Sodium 129 L, Potassium 4.1, C hloride 93 L, Carbon Dioxide 21.6, Anion Gap 14, BUN 15, Creatinine 1.07, Estim Creat Clear Calc 82.08, Est GFR (MDRD) Non-Af 72, BUN/Creatinine Ratio 13.7, G lucose 218 H, Calcium 8.9, Total Creatine Kinase 261 H, Procalcitonin 0.23 H 03/19/25 01:57: Urine Color Yellow, Urine Clarity Clear, Urine pH 6.0, Ur Specific [place] 1.020, Urine Protein 30 H, Urine Glucose (UA) Normal, Urine Ketones 15 H, Urine Occult Blood 25 H, Urine Nitrite Negative, Urine Bilirubin Negative, Urine Urobilinogen Normal, Ur Leukocyte Esterase 100 H, Urine RBC 5-10 SEEN, Urine WBC 5-10 SEEN, Ur Squamous Epith Cells 0-5 SEEN, Urine Bacteria RARE, Urine Mucus 0 SEEN 03/19/25 05:53: POC Glucose 194 H 03/19/25 06:43: WBC 4.6, RBC 4.34 L, Hgb 13.7, Hct 39.0 L, MCV 89.9, MCH 31.6, MCHC 35.1, RDW Std Deviation 38.3, RDW Coeff of Gage 11.7, Plt Count 61 L, MPV 9.9, Immature Gran % (Auto) 0.600, Neut % (Auto) 68.7, Lymph % (Auto) 17.5 L, M mateo % (Auto) 12.1 H, Eos % (Auto) 0.9, Baso % (Auto) 0.2, Absolute Neuts (auto) 3.2, Absolute Lymphs (auto) 0.81 L, Nucleated RBC % 0, Sodium 132 L, Potassium 4.1, Chloride 97 L, Carbon Dioxide 23.5, Anion Gap 12, BUN 14, Creatinine 1.05, Estim Creat Clear Calc 82.79, Est GFR (MDRD) Non-Af 74, BUN/Creatinine Ratio 13.1, Glucose 195 H, Calcium 8.3 03/19/25 11:30: POC Glucose 225 H Micro: Microbiology 03/19/25 00:04 Mucosa - Nose Respiratory Panel (PCR) - Final Radiography Diagnostic Testing: Radiology Impression Chest X-Ray 03/18/25 23:52 IMPRESSION: Mild bilateral basilar atelectatic pulmonary changes/infiltrates, unchanged. Reading Location: [place] [address] Physical Exam Const alert Constitutional Narrative: frail, weak General Appearance: cooperative HEENT normocephalic, head/scalp atraumatic and moist oral mucous membranes Neck supple and no JVD Lymph Lymphatic: no lymphedema noted Resp normal respiratory effort, normal air movement and clear to auscultation bilaterally Cardio regular rate, regular rhythm, S1 normal heart sound, S2 normal heart sound and no murmurs GI normal to inspection, nondistended, normoactive bowel sounds, soft to palpation and non-tender Extremity normal capillary refill, no clubbing, cyanosis or edema and no calf tenderness General Extremity: no tenderness to palpation of joints or extremities Skin General Skin Exam: no breakdown Neuro no focal motor deficits and no sensory deficits noted Motor Exam: general weakness Psych Psych Narrative: frail, weak and lethargc Mood & Affect: flat affect Assessment & Plan Assessment/Plan (1) Generalized weakness: (2) Adult failure to thrive: (3) Inability to walk: PLAN: Plan #Debility and weakness with failure to thrive * Patient was recently seen in the ED and discharged on oral antibiotics for community-acquired pneumonia. * However patient felt very weak at home and could not take his antibiotics and so came to the ED. * On IV ceftriaxone and azithromycin. Urine for strep and Legionella are pending. PT OT on board. Fall precautions. #Community-acquired pneumonia: Currently on ceftriaxone and azithromycin. Sputum cultures * #Community-acquired pneumonia * urine for strep and legionella pending. * on IV ceftriaxone and azithromycin * breathing treatment with bronchodilators. * respiratory panel negative. * #Hyperlipidemia: on statin #Hypertension:med rec stil pending #Type 2 diabetes mellitus: on ISS. Accuchecks ACHS #Hyponatremia: this is chronic. Will monitor DVT prophylaxis: lovenox Charges/Coding Visit Charges Inpatient E&M: 52121 Subs Hosp L2
--- NOTE | 2025-03-19 15:31 | CASEMGMT ---
EMA DUKE Assessment Face to Face with patient for initial transition planning/care coordination assessment. EMA DUKE introduced self and role at [facility], pt voices understanding. Pt is A&Ox4 and is resting comfortably in bed and is calm. Care providers, pharmacy, and demographics verified. Admitting dx: CAP PCP: Dr Mcpherson (Pt states [facility]) Specialists: Denies Preferred Pharmacy: [facility] Insurance: [place], Pt also states that he has [facility]. This was not verified by registration/billing. Pt states that he does not have his card on him. However, there is a scan from 2022 that shows pt's [facility] Community Plan My[employer] Prescription Benefit: Yes LNOK: Marge (Sister) Living Arrangements: Pt lives alone in a handicap accessible apartment with a flat entrance ADLs/IADLs: Pt uses a WC at baseline. Pt is able to stand and pivot. Pt states that he has a [employer] that comes once per week x 4 hours Transportation: Friend ([place]), [place] DME: BGM with sufficient testing supplies, Medical alert system, WC, Grab bars, walk in shower HHC/SNF: Reports skilled HH history x 5 years ago in [place]. Reports SNF hx in [place] x 2 years ago Pt?s goal: Return to PLOF and SNF placement Plan: Anticipate SNF. At this time, the pt states that he wants to go to a SNF for further care. Informed the pt that Care Management will provide the pt with a list of local in-network SNFs for the pt to review. Pt states understanding and denies further questions or concerns at this time. VENEER CLIPPER HELPER CM and DPA rehan. Sandra Hooker RN, CM
--- NOTE | 2025-03-19 15:52 | CASEMGMT ---
Discharge Planning A list of SNF providers including quality and resource use data and consistent with the patient's preferred geographic region, medical needs, and insurance network was created in [facility]Port Guide.? This list was provided to the RN LEILANI. Cynthia Tran, Discharge Planning Asst.
--- NOTE | 2025-03-19 15:59 | CASEMGMT ---
Social Work A list of?SNF providers including quality and resource use data and consistent with the patient's preferred geographic region, medical needs, and insurance network was created in [facility]Port Guide.?This list was provided to the patient. The patient first choice is [facility]. SW asked patient to review SNF and make 2 more choices. MANJULA Zamarripa
--- NOTE | 2025-03-19 23:44 | NURSING ---
This RN to take over care for this patient at this time.
[2025-03-20 03:32] VITALS: BP 133/77; PULSE 75; RESP 17; TEMP 36.7; O2SAT 94
[2025-03-20 03:33] VITALS: O2SAT 94
[2025-03-20 06:18] LABS: Hematocrit 36.8 % (40-54); Hemoglobin 13.6 g/dL (13.0-16.5); Immature Granulocytes Count 0.030 X10^3/uL (0.0-0.0); Mean Corp Hgb Conc 37.0 g/dL (32-36); Mean Corpuscular Volume 87.6 fL (80-94); Mean Platelet Vol. 9.9 fl (6.2-12.0); NRBC Flagged by Analyzer 0 % (0-5); POSITIVE COUNT YES; Platelet Count 78 K/mm3 (150-450); RBC Distribution Width CV 11.5 % (11.6-14.6); RBC Distribution Width SD 36.8 fl (35.1-43.9); Red Blood Count 4.20 M/mm3 (4.6-6.2); White Blood Count 4.4 K/mm3 (4.4-11.0)
[2025-03-20 07:00] LABS: Anion Gap 14 (5-15); BUN 11 mg/dL (4-19); BUN/Creat Ratio 11.1 RATIO (10-20); Calcium,Total 8.4 mg/dL (7.6-11.0); Carbon Dioxide 21.5 mmol/L (21.0-32.0); Chloride 95 mmol/L (98-108); Estimated Creatinine Clearance 91.51 ml/min (50-250); Glucose 180 mg/dL (70-99); Potassium 3.7 mmol/L (3.3-5.1)
[2025-03-20 08:58] VITALS: BP 128/60; PULSE 73; RESP 16; TEMP 36.8; O2SAT 93
[2025-03-20 09:30] VITALS: BP 128/60; PULSE 73; RESP 16; TEMP 36.8; O2SAT 93
[2025-03-20] MEDS: FLU VACCINE HIGH DOSE 25-26(65YR UP) 180 MCG/0.5 ML SYRINGE IM (10:02)
--- NOTE | 2025-03-20 11:38 | PN_ITS ---
Subjective Subjective Patient seen and examined with his nurse by his bedside. He had no active complaints and had an uneventful night. Review of systems is otherwise negative. He has remained hemodynamically stable. Objective Data Objective Data Vital Signs: Vital Signs Temp Pulse Resp BP Pulse Ox O2 Del Method 98.2 F 73 16 128/60 H 93 Room Air 03/20/25 09:30 03/20/25 09:30 03/20/25 09:30 03/20/25 09:30 03/20/25 09:30 03/20/25 10:00 Oxygen Delivery Method Room Air Weight: 258 lb 14.4 oz Body Mass Index (BMI) 33.2 Intake & Output: Intake and Output for Last 24 Hours 03/18/25 03/19/25 03/20/25 23:59 23:59 23:59 Intake Total 0 / 0 Output Total 900 / 900 160 / 160 Balance 1180 / 1180 -160 / -160 Lab / Micro Data 03/20/25 05:03 03/20/25 05:03 Labs: Laboratory Results - last 24 hr 03/19/25 11:30: POC Glucose 225 H 03/19/25 16:24: POC Glucose 203 H 03/19/25 21:24: POC Glucose 202 H 03/20/25 05:03: WBC 4.4, RBC 4.20 L, Hgb 13.6, Hct 36.8 L, MCV 87.6, MCH 32.4 H, MCHC 37.0 H D, RDW Std Deviation 36.8, RDW Coeff of Gage 11.5 L, Plt Count 78 L, MPV 9.9, Immature Gran % (Auto) 0.700, Neut % (Auto) 67.8, Lymph % (Auto) 19.5, [place] % (Auto) 11.6 H, Eos % (Auto) 0.2, Baso % (Auto) 0.2, Absolute Neuts (auto) 3.0, Absolute Lymphs (auto) 0.86, Nucleated RBC % 0, Sodium 131 L, Potassium 3.7, Chloride 95 L, Carbon Dioxide 21.5, Anion Gap 14, BUN 11, Creatinine 0.95, Estim Creat Clear Calc 91.51, Est GFR (MDRD) Non-Af 84, BUN/Creatinine Ratio 11.1, Glucose 180 H, Calcium 8.4 03/20/25 06:32: POC Glucose 195 H Micro: Microbiology 03/20/25 10:24 Urine, Clean Catch Legionella Antigen - Final 03/19/25 01:57 Urine, Clean Catch Urine Culture - Preliminary Culture exhibits no growth. 03/19/25 00:04 Mucosa - Nose Respiratory Panel (PCR) - Final Physical Exam Const alert and oriented x3 Constitutional Narrative: frail, weak General Appearance: cooperative HEENT normocephalic, head/scalp atraumatic and moist oral mucous membranes Eyes EOMs intact bilaterally Neck supple and no JVD Lymph Lymphatic: no lymphedema noted Resp normal respiratory effort, normal air movement and clear to auscultation bilaterally Cardio regular rate, regular rhythm, S1 normal heart sound, S2 normal heart sound and no murmurs GI normal to inspection, nondistended, normoactive bowel sounds, soft to palpation and non-tender Extremity normal capillary refill, no clubbing, cyanosis or edema and no calf tenderness General Extremity: no tenderness to palpation of joints or extremities Skin General Skin Exam: no breakdown Neuro no focal motor deficits and no sensory deficits noted Motor Exam: general weakness Psych Psych Narrative: frail, weak and lethargc Mood & Affect: flat affect Assessment & Plan Assessment/Plan (1) Generalized weakness: (2) Adult failure to thrive: (3) Inability to walk: PLAN: Plan #Debility and weakness with failure to thrive * Patient was recently seen in the ED and discharged on oral antibiotics for community-acquired pneumonia. * However patient felt very weak at home and could not take his antibiotics and so came to the ED. * On IV ceftriaxone and azithromycin. * Urine for strep and Legionella antigens us negative.. PT OT on board. Fall precautions. * #Community-acquired pneumonia * urine for strep and legionella pending. * on IV ceftriaxone and azithromycin * breathing treatment with bronchodilators. * respiratory panel negative. * #Hyperlipidemia: on statin #Hypertension: on losartan #Type 2 diabetes mellitus: on ISS. Accuchecks ACHS #Hyponatremia: this is chronic. Will monitor DVT prophylaxis: lovenox Disposition: will need placement. Case management on board to help facilitate this Charges/Coding Visit Charges Inpatient E&M: 75507 Subs Hosp L2
--- NOTE | 2025-03-20 12:30 | CASEMGMT ---
Addendum entered by Cynthia Tran 03/20/25 16:24: [facility] declined d/t being out of network with pts [employer] plan that starts 04/02. RN CM updated. Cynthia Tran DC Planning Asst. Original Note: Discharge Planning Referral sent via [facility]Port to [facility]. Cynthia Tran DC Planning Asst.
[2025-03-20] MEDS: Polyethylene Glycol 3350 17 GM PACKET PO (13:35)
--- NOTE | 2025-03-20 14:50 | CASEMGMT ---
EMA DUKE called Paz at [facility] to check on the status of referral. Paz states she will look at it shortly and have her DON review as well and give us a response in Careport. EMA DUKE updated DC [facility].
[2025-03-20 16:00] VITALS: BP 154/91; PULSE 86; RESP 16; TEMP 37; O2SAT 99
--- NOTE | 2025-03-20 16:36 | CASEMGMT ---
Addendum entered by Cynthia Tran 03/20/25 16:54: [facility] private room available. Pt wishes to proceed. SL asked to submit for precert. Other snfs asked to cancel referral. EMA CM updated. Original Note: Discharge Planning Referral sent to [facility], [facility], and [facility]. Cynthia Tran DC Planning Asst.
--- NOTE | 2025-03-20 17:15 | CASEMGMT ---
EMA CM completed PASRR and filed in chart.
[2025-03-20] MEDS: 0.9% Saline Lock 10 ML Syringe IV ×2 (18:06→23:23)
[2025-03-20 23:22] VITALS: BP 135/60; PULSE 80; RESP 18; TEMP 36.8; O2SAT 94
[2025-03-21] MEDS: Azithromycin 500 MG in 0.9% Normal Saline (250mL Bag) 250 ML 250 MG IV ×2 (00:19→21:46)
[2025-03-21] MEDS: MELATONIN 10 MG TABLET PO ×2 (00:57→21:05)
[2025-03-21 04:36] LABS: Hematocrit 34.8 % (40-54); Hemoglobin 12.5 g/dL (13.0-16.5); Immature Granulocytes Count 0.010 X10^3/uL (0.0-0.0); Mean Corp Hgb Conc 35.9 g/dL (32-36); Mean Corpuscular Volume 87.7 fL (80-94); Mean Platelet Vol. 9.3 fl (6.2-12.0); NRBC Flagged by Analyzer 0 % (0-5); POSITIVE COUNT YES; Platelet Count 92 K/mm3 (150-450); RBC Distribution Width CV 11.3 % (11.6-14.6); RBC Distribution Width SD 36.2 fl (35.1-43.9); Red Blood Count 3.97 M/mm3 (4.6-6.2); White Blood Count 4.0 K/mm3 (4.4-11.0)
[2025-03-21 05:13] LABS: Anion Gap 11 (5-15); BUN 11 mg/dL (4-19); BUN/Creat Ratio 12.0 RATIO (10-20); Calcium,Total 8.0 mg/dL (7.6-11.0); Carbon Dioxide 22.2 mmol/L (21.0-32.0); Chloride 95 mmol/L (98-108); Estimated Creatinine Clearance 97.68 ml/min (50-250); Glucose 175 mg/dL (70-99); Potassium 3.4 mmol/L (3.3-5.1)
[2025-03-21 05:20] VITALS: BP 111/52; PULSE 76; RESP 15; TEMP 37.1; O2SAT 92
[2025-03-21 08:00] VITALS: BP 125/75; PULSE 69; RESP 17; TEMP 36.8; O2SAT 95
[2025-03-21] MEDS: LINAGLIPTIN 5 MG TABLET PO (09:33)
[2025-03-21 11:20] VITALS: BP 129/71; PULSE 73; RESP 16; TEMP 36.8; O2SAT 93
--- NOTE | 2025-03-21 11:29 | PN_ITS ---
Subjective Subjective Patient seen and examined. He had no active complaints and had an uneventful night. His nurse was by his bedside. Review of systems is otherwise negative. Objective Data Objective Data Vital Signs: Vital Signs Temp Pulse Resp BP Pulse Ox O2 Del Method 98.2 F 69 17 125/75 H 95 Room Air 03/21/25 08:00 03/21/25 08:00 03/21/25 08:00 03/21/25 08:00 03/21/25 08:00 03/21/25 10:00 Oxygen Delivery Method Room Air Weight: 258 lb 14.4 oz Body Mass Index (BMI) 33.2 Intake & Output: Intake and Output for Last 24 Hours 03/19/25 03/20/25 03/21/25 23:59 23:59 23:59 Intake Total 2080 / 2080 560 / 560 300 / 300 Output Total 900 / 900 460 / 460 100 / 100 Balance 1180 / 1180 100 / 100 200 / 200 Lab / Micro Data 03/21/25 04:05 03/21/25 04:05 Labs: Laboratory Results - last 24 hr 03/20/25 11:45: POC Glucose 207 H 03/20/25 16:30: POC Glucose 204 H 03/20/25 23:17: POC Glucose 182 H 03/21/25 04:05: WBC 4.0 L, RBC 3.97 L, Hgb 12.5 L, Hct 34.8 L, MCV 87.7, MCH 31.5, MCHC 35.9, RDW Std Deviation 36.2, RDW Coeff of Gage 11.3 L, Plt Count 92 L , MPV 9.3, Immature Gran % (Auto) 0.200, Neut % (Auto) 62.0, Lymph % (Auto) 20.4, [place] % (Auto) 15.7 H, Eos % (Auto) 1.2, Baso % (Auto) 0.5, Absolute Neuts (auto) 2.5, Absolute Lymphs (auto) 0.82 L, Nucleated RBC % 0, Sodium 128 L, Potassium 3.4, Chloride 95 L, Carbon Dioxide 22.2, Anion Gap 11, BUN 11, Creatinine 0.89, Estim Creat Clear Calc 97.68, Est GFR (MDRD) Non-Af 89, BUN/Creatinine Ratio 12.0, Glucose 175 H, Calcium 8.0 03/21/25 06:06: POC Glucose 174 H Micro: Microbiology 03/19/25 01:57 Urine, Clean Catch Urine Culture - Final Mixed Gram Positive Organisms 03/20/25 10:24 Urine, Clean Catch Legionella Antigen - Final 03/19/25 00:04 Mucosa - Nose Respiratory Panel (PCR) - Final Physical Exam Const alert and oriented x3 Constitutional Narrative: frail, weak General Appearance: cooperative HEENT normocephalic, head/scalp atraumatic and moist oral mucous membranes Eyes EOMs intact bilaterally Neck supple and no JVD Lymph Lymphatic: no lymphedema noted Resp Resp Narrative: mildly diminished breath sounds bibasally, no wheezes or crackles. On room air. Cardio regular rate, regular rhythm, S1 normal heart sound, S2 normal heart sound and no murmurs GI normal to inspection, nondistended, normoactive bowel sounds, soft to palpation and non-tender Extremity normal capillary refill, no clubbing, cyanosis or edema and no calf tenderness General Extremity: no tenderness to palpation of joints or extremities Skin General Skin Exam: no breakdown Neuro no focal motor deficits and no sensory deficits noted Motor Exam: general weakness Psych thought process normal and cooperative Psych Narrative: frail, weak Mood & Affect: flat affect Assessment & Plan Assessment/Plan (1) Generalized weakness: (2) Adult failure to thrive: (3) Inability to walk: PLAN: Plan #Debility and weakness with failure to thrive * Patient was recently seen in the ED and discharged on oral antibiotics for community-acquired pneumonia. * However patient felt very weak at home and could not take his antibiotics and so came to the ED. * On IV ceftriaxone and azithromycin. * Urine for strep and Legionella antigens us negative.. PT OT on board. Fall precautions. * #Community-acquired pneumonia * urine for strep and legionella negative * on IV ceftriaxone and azithromycin * breathing treatment with bronchodilators. * respiratory panel negative. * #Hyponatremia: sodium is 128. This is chronic. Will monitor. #Hyperlipidemia: on statin #Hypertension: on losartan #Type 2 diabetes mellitus: on ISS. Accuchecks ACHS #Hyponatremia: this is chronic. Will monitor DVT prophylaxis: lovenox Disposition: will need placement. Case management on board to help facilitate this Charges/Coding Visit Charges Inpatient E&M: 86890 Subs Hosp L2
[2025-03-21 14:55] VITALS: BP 142/81; PULSE 86; RESP 16; TEMP 37; O2SAT 99
[2025-03-21 21:00] VITALS: BP 156/78; PULSE 72; RESP 16; TEMP 37; O2SAT 99
[2025-03-22 03:00] VITALS: BP 115/75; PULSE 70; RESP 16; TEMP 36.7; O2SAT 94
[2025-03-22 06:09] LABS: Hematocrit 33.5 % (40-54); Hemoglobin 12.1 g/dL (13.0-16.5); Immature Granulocytes Count 0.020 X10^3/uL (0.0-0.0); Mean Corp Hgb Conc 36.1 g/dL (32-36); Mean Corpuscular Volume 87.7 fL (80-94); Mean Platelet Vol. 9.2 fl (6.2-12.0); NRBC Flagged by Analyzer 0 % (0-5); Platelet Count 108 K/mm3 (150-450); RBC Distribution Width CV 11.4 % (11.6-14.6); RBC Distribution Width SD 36.4 fl (35.1-43.9); Red Blood Count 3.82 M/mm3 (4.6-6.2); White Blood Count 4.0 K/mm3 (4.4-11.0)
[2025-03-22 06:29] LABS: Anion Gap 13 (5-15); BUN 11 mg/dL (4-19); BUN/Creat Ratio 12.8 RATIO (10-20); Calcium,Total 8.0 mg/dL (7.6-11.0); Carbon Dioxide 21.8 mmol/L (21.0-32.0); Chloride 97 mmol/L (98-108); Estimated Creatinine Clearance 97.68 ml/min (50-250); Glucose 200 mg/dL (70-99); Potassium 3.5 mmol/L (3.3-5.1)
[2025-03-22] MEDS: LINAGLIPTIN 5 MG TABLET PO (10:19)
[2025-03-22] MEDS: Polyethylene Glycol 3350 17 GM PACKET PO (10:20)
[2025-03-22 10:25] VITALS: BP 121/80; PULSE 81; RESP 18; TEMP 36.3; O2SAT 100
--- NOTE | 2025-03-22 10:26 | PN_ITS ---
Subjective Subjective Patient seen and examined with his nurse by his bedside.He had no active complaints. Review of systems is otherwise negative. He is awaiting placement. He has remained hemodynamically stable. Objective Data Objective Data Vital Signs: Vital Signs Temp Pulse Resp BP Pulse Ox O2 Del Method 97.4 F L 81 18 121/80 H 100 Room Air 03/22/25 10:25 03/22/25 10:25 03/22/25 10:03/22/25 10:03/22/25 10:03/22/25 10:25 Oxygen Delivery Method Room Air Weight: 258 lb 14.4 oz Body Mass Index (BMI) 33.2 Intake & Output: Intake and Output for Last 24 Hours 03/20/25 03/21/25 03/22/25 23:59 23:59 23:59 Intake Total 560 / 560 600 / 800 300 / 300 Output Total 460 / 460 100 / 100 Balance 100 / 100 500 / 700 300 / 300 Lab / Micro Data 03/22/25 05:44 03/22/25 05:44 Labs: Laboratory Results - last 24 hr 03/21/25 12:23: POC Glucose 215 H 03/21/25 17:46: POC Glucose 268 H 03/21/25 21:05: POC Glucose 179 H 03/22/25 05:44: WBC 4.0 L, RBC 3.82 L, Hgb 12.1 L, Hct 33.5 L, MCV 87.7, MCH 31.7, MCHC 36.1 H, RDW Std Deviation 36.4, RDW Coeff of Gage 11.4 L, Plt Count 108 L, MPV 9.2, Immature Gran % (Auto) 0.500, Neut % (Auto) 62.4, Lymph % (Auto) 19.3, [place] % (Auto) 15.1 H, Eos % (Auto) 2.2, Baso % (Auto) 0.5, Absolute Neuts (auto) 2.5, Absolute Lymphs (auto) 0.78 L, Nucleated RBC % 0, Sodium 131 L, Potassium 3.5, Chloride 97 L, Carbon Dioxide 21.8, Anion Gap 13, BUN 11, Creatinine 0.89, Estim Creat Clear Calc 97.68, Est GFR (MDRD) Non-Af 89, BUN/Creatinine Ratio 12.8, Glucose 200 H, Calcium 8.0 03/22/25 06:22: POC Glucose 198 H Micro: Microbiology 03/21/25 10:24 Urine, Random Streptococcus pneumoniae Antigen (M - Final 03/19/25 01:57 Urine, Clean Catch Urine Culture - Final Mixed Gram Positive Organisms 03/20/25 10:24 Urine, Clean Catch Legionella Antigen - Final 03/19/25 00:04 Mucosa - Nose Respiratory Panel (PCR) - Final Physical Exam Const alert and oriented x3 Constitutional Narrative: frail, weak General Appearance: cooperative HEENT normocephalic, head/scalp atraumatic and moist oral mucous membranes Eyes EOMs intact bilaterally Neck supple and no JVD Lymph Lymphatic: no lymphedema noted Resp Resp Narrative: mildly diminished breath sounds bibasally, no wheezes or crackles. On room air. Cardio regular rate, regular rhythm, S1 normal heart sound, S2 normal heart sound and no murmurs GI normal to inspection, nondistended, normoactive bowel sounds, soft to palpation and non-tender Extremity normal capillary refill, no clubbing, cyanosis or edema and no calf tenderness General Extremity: no tenderness to palpation of joints or extremities Skin General Skin Exam: no breakdown Neuro no focal motor deficits and no sensory deficits noted Motor Exam: general weakness Psych thought process normal and cooperative Psych Narrative: frail, weak Mood & Affect: flat affect Assessment & Plan Assessment/Plan (1) Generalized weakness: (2) Adult failure to thrive: (3) Inability to walk: PLAN: Plan #Debility and weakness with failure to thrive * Patient was recently seen in the ED and discharged on oral antibiotics for community-acquired pneumonia. * However patient felt very weak at home and could not take his antibiotics and so came to the ED. * On IV ceftriaxone and azithromycin. Completed a 3 day course of azithromycin * Urine for strep and Legionella antigens us negative.. PT OT on board. Fall precautions. * #Community-acquired pneumonia * urine for strep and legionella negative * on IV ceftriaxone. COmpleted a 3 day course of azithromycin. To complete a 5 day course of ceftriaxone(last day will be 03/23/2025) * breathing treatment with bronchodilators. * respiratory panel negative. * #Hyponatremia: sodium is up to 131 today. This is chronic. Will monitor. #Hyperlipidemia: on statin #Hypertension: on losartan #Type 2 diabetes mellitus: on ISS. Accuchecks ACHS #Hyponatremia: this is chronic. Will monitor DVT prophylaxis: lovenox Disposition: awaiting placement pending precert Charges/Coding Visit Charges Inpatient E&M: 65521 Subs Hosp L2
[2025-03-22 14:09] VITALS: BP 127/65; PULSE 74; RESP 18; TEMP 36.3; O2SAT 95
[2025-03-22] MEDS: MELATONIN 10 MG TABLET PO (22:17)
[2025-03-22] MEDS: 0.9% Saline Lock 10 ML Syringe IV (22:17)
[2025-03-22 22:20] VITALS: BP 135/84; PULSE 70; RESP 16; TEMP 36.9; O2SAT 99
[2025-03-23 06:04] LABS: Hematocrit 32.5 % (40-54); Hemoglobin 12.1 g/dL (13.0-16.5); Immature Granulocytes Count 0.020 X10^3/uL (0.0-0.0); Mean Corp Hgb Conc 37.2 g/dL (32-36); Mean Corpuscular Volume 86.7 fL (80-94); Mean Platelet Vol. 9.3 fl (6.2-12.0); NRBC Flagged by Analyzer 0 % (0-5); Platelet Count 118 K/mm3 (150-450); RBC Distribution Width CV 11.3 % (11.6-14.6); RBC Distribution Width SD 35.7 fl (35.1-43.9); Red Blood Count 3.75 M/mm3 (4.6-6.2); White Blood Count 4.1 K/mm3 (4.4-11.0)
[2025-03-23 06:28] LABS: Anion Gap 11 (5-15); BUN 9 mg/dL (4-19); BUN/Creat Ratio 10.3 RATIO (10-20); Calcium,Total 8.1 mg/dL (7.6-11.0); Carbon Dioxide 22.7 mmol/L (21.0-32.0); Chloride 98 mmol/L (98-108); Estimated Creatinine Clearance 104.74 ml/min (50-250); Glucose 203 mg/dL (70-99); Potassium 3.5 mmol/L (3.3-5.1)
[2025-03-23 06:44] VITALS: BP 116/58; PULSE 64; RESP 15; TEMP 36.6; O2SAT 95
--- NOTE | 2025-03-23 08:24 | PN.HOSP_ITS ---
Subjective Subjective Denies shortness of breath. Objective Data Objective Data Vital Signs: Vital Signs Temp Pulse Resp BP Pulse Ox O2 Del Method 36.6 C 64 15 116/58 L 95 Room Air 03/23/25 06:44 03/23/25 06:44 03/23/25 06:44 03/23/25 06:44 03/23/25 06:44 03/23/25 06:44 Oxygen Delivery Method Room Air Weight: 117.435 kg Body Mass Index (BMI) 33.2 Intake & Output: Intake and Output for Last 24 Hours 03/21/25 03/22/25 03/23/25 23:59 23:59 23:59 Intake Total 600 / 800 2150 / 2150 Output Total 100 / 100 180 / 180 500 / 500 Balance 500 / 700 1970 / 1970 -500 / -500 Lab / Micro Data 03/23/25 05:34 03/23/25 05:34 Labs: Laboratory Results - last 24 hr 03/22/25 12:34: POC Glucose 252 H 03/22/25 16:51: POC Glucose 269 H 03/22/25 22:01: POC Glucose 270 H 03/23/25 05:34: WBC 4.1 L, RBC 3.75 L, Hgb 12.1 L, Hct 32.5 L, MCV 86.7, MCH 32.3 H, MCHC 37.2 H, RDW Std Deviation 35.7, RDW Coeff of Gage 11.3 L, Plt Count 118 L, MPV 9.3, Immature Gran % (Auto) 0.500, Neut % (Auto) 60.6, Lymph % (Auto) 21.4, [place] % (Auto) 14.3 H, Eos % (Auto) 2.7, Baso % (Auto) 0.5, Absolute Neuts (auto) 2.5, Absolute Lymphs (auto) 0.87, Nucleated RBC % 0, Sodium 131 L, Potassium 3.5, Chloride 98, Carbon Dioxide 22.7, Anion Gap 11, BUN 9, Creatinine 0.83, Estim Creat Clear Calc 104.74, Est GFR (MDRD) Non-Af 91, BUN/Creatinine Ratio 10.3, Glucose 203 H, Calcium 8.1 03/23/25 06:36: POC Glucose 200 H Micro: Microbiology 03/21/25 10:24 Urine, Random Streptococcus pneumoniae Antigen (M - Final 03/19/25 01:57 Urine, Clean Catch Urine Culture - Final Mixed Gram Positive Organisms 03/20/25 10:24 Urine, Clean Catch Legionella Antigen - Final 03/19/25 00:04 Mucosa - Nose Respiratory Panel (PCR) - Final Physical Exam Const Constitutional Narrative: confabulating, but A+O x3. Resp normal respiratory effort, no retractions, no use of accessory muscles and clear to auscultation bilaterally Cardio regular rate, regular rhythm, S1 normal heart sound and S2 normal heart sound GI normal to inspection, nondistended, normoactive bowel sounds, soft to palpation, non-tender and non-distended Extremity normal to inspection, full ROM and no clubbing, cyanosis or edema Neuro Sensorium / Orientation: awake, alert, oriented to person, oriented to place and oriented to time Assessment & Plan Assessment/Plan (1) Generalized weakness: (2) Adult failure to thrive: (3) Inability to walk: PLAN: Plan Debility and weakness with failure to thrive * Patient was recently seen in the ED and discharged on oral antibiotics for community-acquired pneumonia. * However patient felt very weak at home and could not take his antibiotics and so came to the ED. * On IV ceftriaxone. Completed a 3 day course of azithromycin * Urine for strep and Legionella antigens us negative.. PT OT on board. Fall precautions. Suspected pneumococcal pneumonia * urine for strep and legionella negative * on IV ceftriaxone. Completed a 3 day course of azithromycin. To complete a 5 day course of ceftriaxone(last day will be 03/23/2025) * breathing treatment with bronchodilators. * respiratory panel negative. Chronic medical conditions: * Hyperlipidemia: on statin * Hypertension: on losartan * Type 2 diabetes mellitus: on ISS. Accuchecks ACHS DVT prophylaxis: lovenox Disposition: awaiting placement at SNF, pending precert Charges/Coding Visit Charges Inpatient E&M: 11354 Subs Hosp L2
[2025-03-23 08:47] VITALS: BP 132/73; PULSE 68; RESP 16; TEMP 36.6; O2SAT 97
[2025-03-23] MEDS: LINAGLIPTIN 5 MG TABLET PO (08:50)
--- NOTE | 2025-03-23 08:58 | CASEMGMT ---
Discharge Planning Updates sent via [facility]Port to [facility]. [facility] remains pending. Cynthia Tran DC Planning Asst.
[2025-03-23] MEDS: Polyethylene Glycol 3350 17 GM PACKET PO (13:16)
--- NOTE | 2025-03-23 14:07 | TREXTCAR_ITS ---
Diet Diet Order/Speech Therapy: INPATIENT Hospital Diet / Speech Therapy Order(s) 03/19/25 05:31 Diet: Cardiac - Heart Healthy Food consistency:: Regular Liquid Consistency:: Regular/Thin Dietary Modifications:: Consistent Carbohydrate Routine Orders/Code Status Code Status: DNRCC-A (no intubation. ) DC O2, CPAP, BIPAP needs Home O2 Discharge instructions: No Wound(s) L knee: Wound Type: scab Therapies Weight Bearing: Full weight bearing Physical Therapy: Eval and Treat Occupational Therapy: Eval and Treat Problem/Diagnosis (1) Generalized weakness: Status: Acute Code(s): R53.1 - Weakness (2) Adult failure to thrive: Status: Acute Code(s): R62.7 - Adult failure to thrive (3) Inability to walk: Status: Acute Code(s): R26.2 - Difficulty in walking, not elsewhere classified Plan Debility and weakness with failure to thrive * Patient was recently seen in the ED and discharged on oral antibiotics for community-acquired pneumonia. * However patient felt very weak at home and could not take his antibiotics and so came to the ED. * On IV ceftriaxone. Completed a 3 day course of azithromycin. DC with augmentin. * Urine for strep and Legionella antigens us negative.. PT OT on board. Fall precautions. Suspected pneumococcal pneumonia * urine for strep and legionella negative * on IV ceftriaxone. Completed a 3 day course of azithromycin. To complete a 5 day course of ceftriaxone(last day will be 03/23/2025) * breathing treatment with bronchodilators. * respiratory panel negative. Chronic medical conditions: * Hyperlipidemia: on statin * Hypertension: on losartan * Type 2 diabetes mellitus: on ISS. Accuchecks ACHS DVT prophylaxis: lovenox Disposition: awaiting placement at SNF, pending precert Allergies/Procedures Done in Hospital Allergies No Known Allergies Allergy (Verified 03/18/25 23:44) Procedures: None Type of Care/Length of Stay Estimated LOS: Convalescent Care Less Than 30 days Type of Care Needed: Skilled Rehab Potential: Fair Prognosis: Fair Additional Orders/Day of Discharge Day of Discharge: 03/23/25 Dietary and Speech Recommendations Dietitian Recommendations/Changes: Adjust to consistent carbohydrate; cardiac diet. Will monitor weight trends. Discharge Plan Admission Admit Date/Time: 03/19/25 04:01 Primary Reason for Your Visit: pneumonia Attending Provider: Eduar Hartley Primary Care Provider: Jessica Alvarez OPHTHALMOLOGY ASSISTANT Consulting Providers: Watson Maya Nana Yaa Discharge Orders/Prescriptions Prescriptions: Continued atorvastatin 80 mg tablet 80 mg PO QHS cetirizine 5 mg tablet 5 mg PO QHS Patient Comments: 1 TABLET BY MOUTH ATIBEDTIME DX: / NURSE TO REORDER clopidogrel 75 mg tablet 75 mg PO DAILY losartan 25 mg tablet 25 mg PO DAILY metformin 500 mg tablet 500 mg PO BID polyethylene glycol 3350 [Gavilax] 17 gram/dose powder 17 g PO .EVERY OTHER DAY Patient Comments: 17 GRAMS DISSOLVED INILIQUID EVERY OTHER DAY FOR CONSTIPATION HOLD FOR DIARRHEA, CALL MD IF NO BM IN 24 HRS tamsulosin 0.4 mg capsule 0.8 mg PO DAILY Tradjenta 5 mg tablet 5 mg PO DAILY cholecalciferol (vitamin D3) [Vitamin D3] 125 mcg (5,000 unit) tablet 5,000 unit PO QWEEK finasteride 5 mg Tablet 5 mg PO DAILY Qty: 0 0RF ondansetron 4 mg tablet,disintegrating 4 mg PO TID PRN (Reason: nausea and vomiting) Qty: 21 0RF Discontinued isosorbide mononitrate 30 mg tablet extended release 24 hr 30 mg PO DAILY melatonin 5 mg tablet 5 mg PO QHS montelukast 10 mg tablet 10 mg PO QHS icosapent ethyl [Vascepa] 1 gram capsule 2 g PO BID Referrals / Follow Up: Jessica Alvarez OPHTHALMOLOGY ASSISTANT, OPHTHALMOLOGY ASSISTANT-C [Primary Care Provider, Medical] - Within 2 Weeks Disposition Disposition (needs filled in before D/C Order can be placed): [facility]
[2025-03-23 14:33] VITALS: BP 118/72; PULSE 71; RESP 17; TEMP 36.4; O2SAT 100
[2025-03-23] MEDS: MELATONIN 10 MG TABLET PO (21:05)
[2025-03-23] MEDS: 0.9% Saline Lock 10 ML Syringe IV (21:07)
[2025-03-23 21:20] VITALS: BP 132/60; PULSE 76; RESP 18; TEMP 36.6; O2SAT 100
[2025-03-24 05:58] VITALS: BP 112/69; PULSE 67; RESP 18; TEMP 36.5; O2SAT 97
[2025-03-24 07:05] LABS: Hematocrit 33.9 % (40-54); Hemoglobin 12.1 g/dL (13.0-16.5); Immature Granulocytes Count 0.020 X10^3/uL (0.0-0.0); Mean Corp Hgb Conc 35.7 g/dL (32-36); Mean Corpuscular Volume 87.6 fL (80-94); Mean Platelet Vol. 9.2 fl (6.2-12.0); NRBC Flagged by Analyzer 0 % (0-5); Platelet Count 144 K/mm3 (150-450); RBC Distribution Width CV 11.6 % (11.6-14.6); RBC Distribution Width SD 36.7 fl (35.1-43.9); Red Blood Count 3.87 M/mm3 (4.6-6.2); White Blood Count 4.6 K/mm3 (4.4-11.0)
[2025-03-24 07:32] LABS: Anion Gap 11 (7-18); BUN 8 mg/dL (4-19); BUN/Creat Ratio 9.5 RATIO (10-20); Calcium,Total 8.2 mg/dL (7.6-11.0); Carbon Dioxide 22.6 mmol/L (20.0-29.0); Chloride 99 mmol/L (96-106); Estimated Creatinine Clearance 107.28 ml/min (50-250); Glucose 193 mg/dL (70-99); Potassium 3.7 mmol/L (3.5-5.1)
--- NOTE | 2025-03-24 07:55 | PN.HOSP_ITS ---
Subjective Subjective Upset that there is still no notification of insurance approval for [facility] facility. Denies shortness of breath. Objective Data Objective Data Vital Signs: Vital Signs Temp Pulse Resp BP Pulse Ox O2 Del Method 36.5 C L 67 18 112/69 97 Room Air 03/24/25 05:58 03/24/25 05:58 03/24/25 05:58 03/24/25 05:58 03/24/25 05:58 03/24/25 05:58 Oxygen Delivery Method Room Air Weight: 117.345 kg Body Mass Index (BMI) 33.2 Intake & Output: Intake and Output for Last 24 Hours 03/22/25 03/23/25 03/24/25 23:59 23:59 23:59 Intake Total 2150 / 2150 50 / 50 Output Total 180 / 180 750 / 750 200 / 200 Balance 1969 / 1969 -700 / -700 -200 / -200 Lab / Micro Data 03/24/25 06:07 03/24/25 06:07 Labs: Laboratory Results - last 24 hr 03/23/25 17:00: POC Glucose 206 H 03/23/25 20:08: POC Glucose 234 H 03/24/25 05:49: POC Glucose 186 H 03/24/25 06:07: WBC 4.6, RBC 3.87 L, Hgb 12.1 L, Hct 33.9 L, MCV 87.6, MCH 31.3, MCHC 35.7, RDW Std Deviation 36.7, RDW Coeff of Gage 11.6, Plt Count 144 L, MPV 9.2, Immature Gran % (Auto) 0.400, Neut % (Auto) 58.0, Lymph % (Auto) 26.8, [place] % (Auto) 11.1 H, Eos % (Auto) 3.3, Baso % (Auto) 0.4, Absolute Neuts (auto) 2.7, Absolute Lymphs (auto) 1.23, Nucleated RBC % 0, Sodium 133 L, Potassium 3.7, Chloride 99, Carbon Dioxide 22.6, Anion Gap 11, BUN 8, Creatinine 0.81, Estim Creat Clear Calc 107.28, Est GFR (MDRD) Non-Af 92, BUN/Creatinine Ratio 9.5 L, G lucose 193 H, Calcium 8.2 Micro: Microbiology 03/21/25 10:24 Urine, Random Streptococcus pneumoniae Antigen (M - Final 03/19/25 01:57 Urine, Clean Catch Urine Culture - Final Mixed Gram Positive Organisms 03/20/25 10:24 Urine, Clean Catch Legionella Antigen - Final 03/19/25 00:04 Mucosa - Nose Respiratory Panel (PCR) - Final Physical Exam Const alert and no apparent distress HEENT head/scalp atraumatic and moist oral mucous membranes Resp normal respiratory effort, no retractions, no use of accessory muscles and clear to auscultation bilaterally Cardio regular rate, regular rhythm, S1 normal heart sound and S2 normal heart sound GI normal to inspection, nondistended, normoactive bowel sounds, soft to palpation, non-tender and non-distended Neuro Sensorium / Orientation: awake and alert Assessment & Plan Assessment/Plan (1) Generalized weakness: (2) Adult failure to thrive: (3) Inability to walk: PLAN: Plan Debility and weakness with failure to thrive * Patient was recently seen in the ED and discharged on oral antibiotics for community-acquired pneumonia. However patient felt very weak at home and could not take his antibiotics and so came to the ED. * On IV ceftriaxone. Completed a 3 day course of azithromycin. DC with augmentin. * Urine for strep and Legionella antigens us negative.. PT OT on board. Fall precautions. Suspected pneumococcal pneumonia * urine for strep and legionella negative * on IV ceftriaxone. Completed a 3 day course of azithromycin. * breathing treatment with bronchodilators. * respiratory panel negative. Chronic medical conditions: * Hyperlipidemia: on statin * Hypertension: on losartan * Type 2 diabetes mellitus: on ISS. Accuchecks ACHS DVT prophylaxis: lovenox Disposition: awaiting placement at SNF, pending precert Charges/Coding Visit Charges Inpatient E&M: 91240 Subs Hosp L2
[2025-03-24 09:03] VITALS: BP 152/79; PULSE 74; RESP 17; TEMP 37.1; O2SAT 97
[2025-03-24] MEDS: 0.9% Saline Lock 10 ML Syringe IV ×2 (09:08→22:01)
[2025-03-24] MEDS: Polyethylene Glycol 3350 17 GM PACKET PO (09:08)
[2025-03-24] MEDS: LINAGLIPTIN 5 MG TABLET PO (09:10)
[2025-03-24 15:13] VITALS: BP 130/69; PULSE 68; RESP 17; TEMP 36.4; O2SAT 100
[2025-03-24 21:44] VITALS: BP 153/78; PULSE 63; RESP 14; TEMP 36.5; O2SAT 97
[2025-03-24] MEDS: MELATONIN 10 MG TABLET PO (21:56)
[2025-03-25 02:42] VITALS: BP 126/56; PULSE 58; RESP 16; TEMP 36.3; O2SAT 99
[2025-03-25 05:07] LABS: Hematocrit 33.2 % (40-54); Hemoglobin 12.2 g/dL (13.0-16.5); Immature Granulocytes Count 0.030 X10^3/uL (0.0-0.0); Mean Corp Hgb Conc 36.7 g/dL (32-36); Mean Corpuscular Volume 87.8 fL (80-94); Mean Platelet Vol. 8.8 fl (6.2-12.0); NRBC Flagged by Analyzer 0 % (0-5); POSITIVE MORPHOLOGY YES; Platelet Count 166 K/mm3 (150-450); RBC Distribution Width CV 11.8 % (11.6-14.6); RBC Distribution Width SD 37.3 fl (35.1-43.9); Red Blood Count 3.78 M/mm3 (4.6-6.2); White Blood Count 5.1 K/mm3 (4.4-11.0)
[2025-03-25 05:22] LABS: Differential Indicated SCAN CRITERIA MET
[2025-03-25 06:12] LABS: Reactive Lymphocyte RARE
[2025-03-25 06:14] LABS: Anion Gap 10 (7-18); BUN 9 mg/dL (4-19); BUN/Creat Ratio 10.4 RATIO (10-20); Calcium,Total 8.1 mg/dL (7.6-11.0); Carbon Dioxide 22.6 mmol/L (20.0-29.0); Chloride 101 mmol/L (96-106); Estimated Creatinine Clearance 105.98 ml/min (50-250); Glucose 187 mg/dL (70-99); Potassium 4.0 mmol/L (3.5-5.1)
--- NOTE | 2025-03-25 07:55 | CASEMGMT ---
[facility] obtained auth to admit. Cynthia Tran DC Planning Asst.
--- NOTE | 2025-03-25 08:05 | PN.HOSP_ITS ---
Subjective Subjective Feeling well. Anxious to start wokring on getting stonger. Objective Data Objective Data Vital Signs: Vital Signs Temp Pulse Resp BP Pulse Ox O2 Del Method 36.3 C L 58 L 16 126/56 H 99 Room Air 03/25/25 02:42 03/25/25 02:42 03/25/25 02:42 03/25/25 02:42 03/25/25 02:42 03/25/25 04:27 Oxygen Delivery Method Room Air Weight: 117.345 kg Body Mass Index (BMI) 33.2 Intake & Output: Intake and Output for Last 24 Hours 03/23/25 03/24/25 03/25/25 23:59 23:59 23:59 Intake Total 50 / 50 50 / 50 Output Total 750 / 750 700 / 700 450 / 450 Balance -700 / -700 -650 / -650 -450 / -450 Lab / Micro Data 03/25/25 04:25 03/25/25 04:25 Labs: Laboratory Results - last 24 hr 03/24/25 11:30: POC Glucose 234 H 03/24/25 17:01: POC Glucose 224 H 03/24/25 21:52: POC Glucose 198 H 03/25/25 04:25: WBC 5.1, RBC 3.78 L, Hgb 12.2 L, Hct 33.2 L, MCV 87.8, MCH 32.3 H, MCHC 36.7 H, RDW Std Deviation 37.3, RDW Coeff of Gage 11.8, Plt Count 166, MPV 8.8, Immature Gran % (Auto) 0.600, Neut % (Auto) 60.3, Lymph % (Auto) 26.4, Prentiss % (Auto) 9.1, Eos % (Auto) 3.2, Baso % (Auto) 0.4, Absolute Neuts (auto) 3.1, Absolute Lymphs (auto) 1.34, Nucleated RBC % 0, Reactive Lymphocytes RARE, Sodium 134 L, Potassium 4.0, Chloride 101, Carbon Dioxide 22.6, Anion Gap 10, BUN 9, Creatinine 0.82, Estim Creat Clear Calc 105.98, Est GFR (MDRD) Non-Af 92, BUN/Creatinine Ratio 10.4, Glucose 187 H, Calcium 8.1 03/25/25 06:15: POC Glucose 193 H Micro: Microbiology 03/21/25 10:24 Urine, Random Streptococcus pneumoniae Antigen (M - Final 03/19/25 01:57 Urine, Clean Catch Urine Culture - Final Mixed Gram Positive Organisms 03/20/25 10:24 Urine, Clean Catch Legionella Antigen - Final 03/19/25 00:04 Mucosa - Nose Respiratory Panel (PCR) - Final Patient's Goals Of Care - F/U Goals Reviewed Goals of care reviewed with patient: Yes - No change (getting stronger. going home. ) Physical Exam Const alert and no apparent distress Constitutional Narrative: up in chair. non-toxic. afebrile. HEENT head/scalp atraumatic and moist oral mucous membranes Extremity normal to inspection and full ROM Assessment & Plan Assessment/Plan (1) Generalized weakness: (2) Adult failure to thrive: (3) Inability to walk: PLAN: Plan Debility and weakness with failure to thrive * Patient was recently seen in the ED and discharged on oral antibiotics for community-acquired pneumonia. However patient felt very weak at home and could not take his antibiotics and so came to the ED. * On IV ceftriaxone. Completed a 3 day course of azithromycin. DC with augmentin. * DC to SNF. Suspected pneumococcal pneumonia * urine for strep and legionella negative * on IV ceftriaxone. Completed a 3 day course of azithromycin. * breathing treatment with bronchodilators. * respiratory panel negative. Chronic medical conditions: * Hyperlipidemia: on statin * Hypertension: on losartan * Type 2 diabetes mellitus: on ISS. Accuchecklinda HUITRON DVT prophylaxis: lovenox Disposition: awaiting placement at SNF today.
[2025-03-25 09:00] VITALS: BP 135/72; PULSE 73; RESP 18; TEMP 35.8; O2SAT 95
[2025-03-25] MEDS: Polyethylene Glycol 3350 17 GM PACKET PO (09:15)
[2025-03-25] MEDS: LINAGLIPTIN 5 MG TABLET PO (09:15)
--- NOTE | 2025-03-25 10:31 | CASEMGMT ---
Discharge Planning Discharge orders, signed med list, and transport time sent via [facility] to [facility]. Physicians will transport pt by wheelchair at 12:30-1p. Nursing, RN CM, pt, and his sister (Marge) updated. Cynthia Tran DC Planning Asst.
--- NOTE | 2025-03-25 10:47 | DS.PCM_ITS ---
Providers Date of Admission: 03/19/25 Primary Care Physician: TARI Edwards Reason For Visit: CAP Diagnosis Discharge Diagnosis (1) Generalized weakness: Status: Acute Code(s): R53.1 - Weakness (2) Adult failure to thrive: Status: Acute Code(s): R62.7 - Adult failure to thrive (3) Inability to walk: Status: Acute Code(s): R26.2 - Difficulty in walking, not elsewhere classified Plan Debility and weakness with failure to thrive * Patient was recently seen in the ED and discharged on oral antibiotics for community-acquired pneumonia. However patient felt very weak at home and could not take his antibiotics and so came to the ED. * On IV ceftriaxone. Completed a 3 day course of azithromycin. DC with augmentin. * DC to SNF. Suspected pneumococcal pneumonia * urine for strep and legionella negative * on IV ceftriaxone. Completed a 3 day course of azithromycin. * breathing treatment with bronchodilators. * respiratory panel negative. Chronic medical conditions: * Hyperlipidemia: on statin * Hypertension: on losartan * Type 2 diabetes mellitus: on ISS. Accuchecklinda BRADSHAWS DVT prophylaxis: lovenox Disposition: awaiting placement at SNF today. Medications at Discharge Home Medications cetirizine 5 mg tablet 5 mg PO QHS allergies 11/08/22 cholecalciferol (vitamin D3) 125 mcg (5,000 unit) tablet (Vitamin D3) 5,000 unit PO QWEEK vitamin 11/08/22 losartan 25 mg tablet 25 mg PO DAILY blood pressure 11/08/22 metformin 500 mg tablet 500 mg PO BID diabetes 11/08/22 polyethylene glycol 3350 17 gram/dose oral powder (Gavilax) 17 g PO .EVERY OTHER DAY constipation 11/08/22 ondansetron 4 mg disintegrating tablet 4 mg PO TID PRN nausea and vomiting #21 tabs 03/18/25 amoxicillin 875 mg-potassium clavulanate 125 mg tablet 1 tab PO Q12H #2 tabs 03/23/25 atorvastatin 20 mg tablet (Lipitor) 20 mg PO QHS cholesterol 03/24/25 furosemide 20 mg tablet (Lasix) 20 mg PO DAILY edema 03/24/25 multivitamin-ferrous fumarate-folic acid 18 mg-400 mcg tablet (Complete Multivitamin-Multimineral) 1 tab PO DAILY supplement 03/24/25 sitagliptin 100 mg tablet (Zituvio) 100 mg PO DAILY ask PCP 03/24/25 Hospital Course Operations None Procedures None Weight / BMI Weight Weight: 117.345 kg Body Mass Index (BMI) 33.2 ABG / Lab / Microbiology Data 03/25/25 04:25 03/25/25 04:25 Laboratory: Laboratory Results - last 24 hr 03/24/25 11:30: POC Glucose 234 H 03/24/25 17:01: POC Glucose 224 H 03/24/25 21:52: POC Glucose 198 H 03/25/25 04:25: WBC 5.1, RBC 3.78 L, Hgb 12.2 L, Hct 33.2 L, MCV 87.8, MCH 32.3 H, MCHC 36.7 H, RDW Std Deviation 37.3, RDW Coeff of Gage 11.8, Plt Count 166, MPV 8.8, Immature Gran % (Auto) 0.600, Neut % (Auto) 60.3, Lymph % (Auto) 26.4, Benzie % (Auto) 9.1, Eos % (Auto) 3.2, Baso % (Auto) 0.4, Absolute Neuts (auto) 3.1, Absolute Lymphs (auto) 1.34, Nucleated RBC % 0, Reactive Lymphocytes RARE, Sodium 134 L, Potassium 4.0, Chloride 101, Carbon Dioxide 22.6, Anion Gap 10, BUN 9, Creatinine 0.82, Estim Creat Clear Calc 105.98, Est GFR (MDRD) Non-Af 92, BUN/Creatinine Ratio 10.4, Glucose 187 H, Calcium 8.1 03/25/25 06:15: POC Glucose 193 H Microbiology: Microbiology 03/21/25 10:24 Urine, Random Streptococcus pneumoniae Antigen (M - Final 03/19/25 01:57 Urine, Clean Catch Urine Culture - Final Mixed Gram Positive Organisms 03/20/25 10:24 Urine, Clean Catch Legionella Antigen - Final 03/19/25 00:04 Mucosa - Nose Respiratory Panel (PCR) - Final D/C Instructions DC O2, CPAP, BIPAP Needs Home O2 Discharge instructions: No Meaningful Use Info Meaningful Use Meaningful Use Diagnoses (Choose all that apply): None applicable Discharge Plan Admission Admit Date/Time: 03/19/25 04:01 Primary Reason for Your Visit: pneumonia Attending Provider: Jopperi,Eduar Primary Care Provider: Jessica Alvarez FLOOR LAYER TILE Consulting Providers: Watson Maya; Tanika Kunz Discharge Orders/Prescriptions Prescriptions: New amoxicillin-pot clavulanate 875-125 mg tablet 1 tab PO Q12H Qty: 2 0RF Continued cetirizine 5 mg tablet 5 mg PO QHS Patient Comments: 1 TABLET BY MOUTH ATIBEDTIME DX: / NURSE TO REORDER losartan 25 mg tablet 25 mg PO DAILY metformin 500 mg tablet 500 mg PO BID polyethylene glycol 3350 [Gavilax] 17 gram/dose powder 17 g PO .EVERY OTHER DAY Patient Comments: 17 GRAMS DISSOLVED INILIQUID EVERY OTHER DAY FOR CONSTIPATION HOLD FOR DIARRHEA, CALL MD IF NO BM IN 24 HRS cholecalciferol (vitamin D3) [Vitamin D3] 125 mcg (5,000 unit) tablet 5,000 unit PO QWEEK ondansetron 4 mg tablet,disintegrating 4 mg PO TID PRN (Reason: nausea and vomiting) Qty: 21 0RF atorvastatin [Lipitor] 20 mg tablet 20 mg PO QHS sitagliptin [Zituvio] 100 mg tablet 100 mg PO DAILY furosemide [Lasix] 20 mg tablet 20 mg PO DAILY Complete Multivitamin-Mineral 18-400 mg-mcg tablet 1 tab PO DAILY Discontinued isosorbide mononitrate 30 mg tablet extended release 24 hr 30 mg PO DAILY melatonin 5 mg tablet 5 mg PO QHS montelukast 10 mg tablet 10 mg PO QHS icosapent ethyl [Vascepa] 1 gram capsule 2 g PO BID Referrals / Follow Up: Jessica Alvarez FLOOR LAYER TILE, FLOOR LAYER TILE-C [Primary Care Provider, Medical] - Within 2 Weeks Disposition Disposition (needs filled in before D/C Order can be placed): Snf Facility Charges/Coding Visit Charges Inpatient E&M: 82716 Disch Hosp
== END 2025-03-25 14:11 | disposition skilled nursing facility (03) | DRG 194 ==
LOC: ED 03-19 03:50 → PCU 03-19 04:07
PROVIDERS: Student in an Organized Health Care Education/Training Program; Admitting Provider Family Medicine; Emergency Provider Emergency Medicine; PCP Nurse Practitioner Adult Health
DX: J13 Pneumonia due to Streptococcus pneumoniae (principal); E87.1 Hypo-osmolality and hyponatremia; J44.0 Chronic obstructive pulmonary disease with (acute) lower respiratory infection; Z66 Do not resuscitate; E11.22 Type 2 diabetes mellitus with diabetic chronic kidney disease; I12.9 Hypertensive chronic kidney disease with stage 1 through stage 4 chronic kidney disease, or unspecified chronic kidney disease; Z68.33 Body mass index [BMI] 33.0-33.9, adult; N18.2 Chronic kidney disease, stage 2 (mild); E78.5 Hyperlipidemia, unspecified; R26.2 Difficulty in walking, not elsewhere classified; R62.7 Adult failure to thrive; Z87.891 Personal history of nicotine dependence; R53.81 Other malaise; Z79.899 Other long term (current) drug therapy; Z23 Encounter for immunization; Z79.02 Long term (current) use of antithrombotics/antiplatelets; Z79.84 Long term (current) use of oral hypoglycemic drugs; Z90.49 Acquired absence of other specified parts of digestive tract; R53.1 Weakness
CPT/HCPCS: 36415; 71045; 80048; 81001; 82550; 82962; 84145; 85025; 87086; 87088; 87449; 87633; 97162; 97166; 97530; 97535; 97542; 99285; A4216; J2405